=== PATIENT | female | born 1995 | race Caucasian/White ===

== ENCOUNTER 2023-01-24 09:05 | Outpatient (OUT) | payer BC, OTHER, SELFPAY ==
[2023-01-24 09:28] LABS: Basophils Percent Auto 0.7 % (0.2-2.0); Eosinophils Absolute Auto 0.1 10^3/uL (0.0-0.7); Eosinophils Percent Auto 1.2 % (0.9-7.0); Hematocrit 38.2 % (36.0-48.0); Hemoglobin 12.8 g/dL (12.0-16.0); Immature Granulocytes Abs Auto 0.01 10^3/uL (0.00-0.03); Immature Granulocytes Pct Auto 0.2 % (0.0-0.5); Lymphocytes Absolute Auto 1.5 10^3/uL (1.2-3.8); Lymphocytes Percent Auto 37.9 % (20.5-60.0); Mean Corpuscular HGB Conc 33.5 g/dL (29.9-35.2); Mean Corpuscular Volume 89.7 fL (81.0-99.0); Mean Platelet Volume 10.2 fL (9.5-13.5); Monocytes Absolute Auto 0.4 10^3/uL (0.3-0.8); Monocytes Percent Auto 9.7 % (1.7-12.0); Neutrophils Percent Auto 50.3 % (43.0-75.0); Platelet Count 219 10^3/uL (150-450); Red Blood Count 4.26 10^6/uL (4.20-5.40); Red Cell Distribution Width 12.5 % (11.0-15.0)
[2023-01-24 10:25] LABS: Alanine Aminotransferase 19 U/L (14-59); Albumin Globulin Ratio 1.4; Albumin Level 4.2 g/dL (3.4-5.0); Alkaline Phosphatase 58 U/L (46-116); Anion Gap 13.4; Aspartate Amino Transferase 12 U/L (15-37); Bilirubin Total 0.5 mg/dL (0.2-1.0); Calcium 8.8 mg/dL (8.5-10.1); Carbon Dioxide 28.2 mmol/L (21.0-32.0); Chloride 103 mmol/L (98-107); Estimated GFR (African America >60 (>=60); Estimated GFR (Non-African Ame >60 (>=60); Globulin 3.1 g/dL; Glucose 92 mg/dL (74-106); Potassium 3.6 mmol/L (3.5-5.1); Sodium 141 mmol/L (136-145); Thyroid Stimulating Hormone 10.926 uIU/mL (0.358-3.740); Total Protein 7.3 g/dL (6.4-8.2)
== END 2023-01-24 09:06 | disposition home or self-care (01) ==
DX: Z00.00 Encounter for general adult medical examination without abnormal findings (principal); D64.9 Anemia, unspecified; F41.9 Anxiety disorder, unspecified
CPT/HCPCS: 36415; 80053; 82607; 82728; 83540; 83550; 84443; 85025

== ENCOUNTER 2023-12-11 08:39 | Outpatient (OUT) | payer BC, MEDICAID, SELFPAY ==
--- NOTE | 2023-12-11 08:41 | US_ITS ---
The [address] [address] Patient Name: JULIÁN JIMENEZ MRN: [id number] date: 1995 Sex: F Assigned Patient Location: [facility] Current Patient Location: [facility] Accession/Order Number: [id number] Exam Date: 12/11/2023 08:41 Report Date: 12/11/2023 10:56 At the request of: LACY AVILES Procedure: US OB transvaginal EXAMINATION: US OB transvaginal HISTORY: MISSED MENSES COMPARISON: No relevant comparison available. FINDINGS: GESTATIONAL SAC: Present and normal appearing. YOLK SAC: Present and normal appearing. POLE: Present and normal appearing. CARDIAC: Present. UTERUS: Normal size and appearance. OVARIES: Right: Contains a benign-appearing cyst. Left: Normal. CERVIX: 4.4 cm in length and closed. CUL-DE-SAC: Normal. OTHER: None. AGE BY LMP: 11 weeks 1 day SERENA BY LMP: 06/30/2024 AGE BY US CRL: 11 weeks 6 days SERENA BY US CRL: 06/25/2024 US/US OB transvaginal IMPRESSION: 1. Single live intrauterine . Electronically authenticated by: YAAKOV TERAN Date: 12/11/2023 10:56
== END 2023-12-11 08:40 | disposition home or self-care (01) ==
LOC: NOMS 08:39
PROVIDERS: Visit Provider Obstetrics & Gynecology
DX: Z34.91 Encounter for supervision of normal pregnancy, unspecified, first trimester (principal); Z3A.11 11 weeks gestation of pregnancy; N92.6 Irregular menstruation, unspecified
CPT/HCPCS: 76817

== ENCOUNTER 2023-12-12 09:16 | Outpatient (OUT) | payer BC, MEDICAID, SELFPAY ==
--- OUTSIDE RECORDS SUMMARY | 2023-12-12 09:22 | XMS_ITS | CCD ---
Author Organization [facility] Care Team Providers Care [employer] Teacher Name Role Phone MILTON RENEEISH R Referring Unavailable [place], [place] Primary Care Unavailable RENEE MODE R Admitting Unavailable RENEE MODE R Attending Unavailable [place], [place] Primary Care Unavailable KARASIK ., DR ZALDIVAR Consulting Unavailabl e KIEPERT, ÁNGEL Primary Care Unavailable KARASIK ., DR ZALDIVAR Attending Unavailabl e KARASIK ., DR ZALDIVAR Admitting Unavailabl e ZIEBER, DR YAAKOV Miranda Consulting Unavailable KIEPERT, ÁNGEL Consulting Unavailable KIEPERT, ÁNGEL Primary Care Unavailable KIEPERT, ÁNGEL Attending Unavailable KIEPERT, ÁNGEL Admitting Unavailable SIDNEY, DR DEANNA Lance Consulting Unavailable PAY ., DR JARRELL Attending Unavailable PAY ., DR JARRELL Admitting Unavailable KIEPERT, ÁNGEL Primary Care Unavailable PAY ., DR JARRELL Consulting Unavailable AFSHIN ., TORI Consulting Unavailable KARASIK ., DR ZALDIVAR Consulting Unavailabl e KIEPERT, ÁNGEL Primary Care Unavailable KARASIK ., DR ZALDIVAR Attending Unavailabl e KARASIK ., DR ZALDIVAR Admitting Unavailabl e KIEPERT, ÁNGEL Primary Care Unavailable KARASIK ., DR ZALDIVAR Consulting Unavailabl e KARASIK ., DR ZALDIVAR Attending Unavailabl e KARASIK ., DR ZALDIVAR Admitting Unavailabl e ZIEBER, DR YAAKOV Miranda Consulting Unavailable KIEPERT, ÁNGEL Primary Care Unavailable KARASIK ., DR ZALDIVAR Attending Unavailabl e KARASIK ., DR ZALDIVAR Admitting Unavailabl e KIEPERT, ÁNGEL Primary Care Unavailable TRACI ., DR HOUSE Attending Unavailable TRACI ., DR HOUSE Admitting Unavailable KARMARIO, MOSES Procedure Practitioner Unavailab le KARASIK ., DR ZALDIVAR Consulting Unavailabl e KUNS, DR ROE Primary Care Unavailable KARASIK ., DR ZALDIVAR Attending Unavailabl e KARASIK ., DR ZALDIVAR Admitting Unavailabl e TRACI ., DR HOUSE Consulting Unavailable KARAMLOU MOSES Consulting Unavailable KARASIK ., DR ZALDIVAR Procedure Practitioner Saida vailable MISC, DR OLSON Consulting Unavailable KIEPERT, ÁNGEL Primary Care Unavailable MISC, DR OLSON Attending Unavailable MISC, DR OLSON Admitting Unavailable KARASIK ., DR ZALDIVAR Consulting Unavailabl e KARASIK ., DR ZALDIVAR Attending Unavailabl e KARASIK ., DR ZALDIVAR Admitting Unavailabl e KARASIK ., DR ZALDIVAR Consulting Unavailabl e KIEPERT, ÁNGEL Primary Care Unavailable KARASIK ., DR ZALDIVAR Attending Unavailabl e KARASIK ., DR ZALDIVAR Admitting Unavailabl e TRACI ., DR HOUSE Consulting Unavailable KIEPERT, ÁNGEL Primary Care Unavailable TRACI ., DR HOUSE Attending Unavailable TRACI ., DR HOUSE Admitting Unavailable KARASIK ., DR ZALDIVAR Consulting Unavailabl e KIEPERT, ÁNGEL Primary Care Unavailable KARASIK ., DR ZALDIVAR Attending Unavailabl e KARASIK ., DR ZALDIVAR Admitting Unavailabl e KIEPERT, ÁNGEL Primary Care Unavailable KARASIK ., DR ZALDIVAR Consulting Unavailabl e KARASIK ., DR ZALDIVAR Attending Unavailabl e KARASIK ., DR ZALDIVAR Admitting Unavailabl e KARASIK ., DR ZALDIVAR Consulting Unavailabl e KIEPERT, ÁNGEL Primary Care Unavailable KARASIK ., DR ZALDIVAR Attending Unavailabl e KARASIK ., DR ZALDIVAR Admitting Unavailabl e Mo Coleman MD Primary Care Provider Kylee MAIN LINE ASSEMBLER, Tori Unavailable Tony Gr NP R Unavailable MD Mo Coleman Primary Care Provider HEATHER Gr Attending Provider [phone] Tony Gr Attending Unavailable Maile, Tony Charles Admitting Unavailable Mo Coleman Primary Care Unavailable TONY GR Attending Unavailable WARCHOL, TORI Attending Unavailable WARCHOL, TORI Attending Unavailable WARCHOL, TORI Attending Unavailable Allergies Allergy Classification Reported Allergen(s) Allergy Type Date of Onset Reaction(s) Facility (1 source) Cefuroxime Drug Allergy 04-04-20 22 [facility] (2 sources) Ciprofloxacin Drug Allergy 04-03-20 16 [facility] (2 sources) Doxycycline Drug Allergy 05-20-19 21 vomiting [facility] (1 source) Flupenthixol Drug Allergy 04-04-20 22 [facility] (2 sources) Cefuroxime Drug Allergy 05-20-19 21 rash [facility] (1 source) Ciprofloxacin Drug Allergy 09-02-19 23 Shortness of breath [facility] (1 source) Ciprofloxacin Drug Allergy 09-02-19 23 Shortness of breath [facility] (1 source) cloNIDine Drug Allergy 03-14-20 21 [facility] (1 source) cloNIDine Drug Allergy 09-02-19 23 [facility] (1 source) Doxycycline Drug Allergy 09-02-19 23 [facility] (1 source) Gluten Propensity to adverse reactions 11-11-19 19 [facility] (1 source) Lactose (non-medical use) Allergy to substance 09-02-19 23 [facility] (1 source) Lactose (non-medical use) Drug Intolerance 11-11-19 19 [facility] (1 source) Octacosanol Drug Intolerance 11-11-19 19 [facility] (1 source) Other Allergy to substance 11-11-19 19 [facility] (1 source) Silver Allergy to substance 09-02-19 23 [facility] (1 source) Wound Dressing Adhesive Drug Allergy 09-02-19 23 [facility] (1 source) Cefuroxime Drug Allergy 05-20-19 21 [facility] Repository (1 source) Ciprofloxacin Drug Allergy 05-20-19 21 [facility] (1 source) Doxycycline Drug Allergy 05-20-19 21 [facility] Medications Current Medications Medication Drug Class(es) Dates Sig (Normalized) Sig (Original) [id number] 200 actuat albuterol 0.09 mg/actuat metered dose inhaler (1 source) beta2-Adrenergi c Agonist Start: 04-16-2023 End: 07-15-2023 take 2 puff(s) by inhalation every four hours for wheezing albuterol HFA 90 mcg/act inhaler Indications: Moderate persistent asthma without complication (CMS/HCC) Inhale 2 puffs every 4 (four) hours if needed for shortness of breath or wheezing 18 g 2 04/16/2023 07/15/2023 Active 24 hr amphetamine aspartate 5 mg / amphetamine sulfate 5 mg / dextroamphetamine saccharate 5 mg / dextroamphetamine sulfate 5 mg extended release oral capsule (3 sources) Central Nervous System Stimulant Start: 06-04-2023 End: 07-04-2023 take 1 capsule by mouth every twenty-four hours in the morning amphetamine-dextro amphetamine XR (Adderall XR) 20 MG 24 hr capsule Indications: Attention deficit hyperactivity disorder (ADHD), combined type (CMS/HCC) Take 1 capsule (20 mg) by mouth in the morning. Do not crush or chew.. 30 capsule 0 06/04/2023 07/04/2023 Active Start: 04-26-2023 take 1 tablet by konstantin th in the morning amphetamine-dextroamphetamine (Adderall) 20 MG tablet Indications: Attention deficit hyperactivity disorder (ADHD), combined type (CMS/HCC) Take 1 tablet (20 mg) by mouth in the morning. 30 tablet 0 04/26/2023 Active Start: 04-26-2023 End: 06-02-2023 take 1 capsule by mouth every twenty-four hours in the morning amphetamine-dextroamphetamine XR (Addera ll XR) 20 MG 24 hr capsule Indications: Attention deficit hyperactivity disorder (ADHD), combined type (CMS/HCC) Take 1 capsule (20 mg) by mouth in the morning. Do not crush or chew.. 30 capsule 0 04/26/2023 06/02/2023 Discontinued (Reorder) calcium citrate 1190 mg / cholecalciferol 0.005 mg oral tablet (1 source) Vitamin D Calcium Citrate-Vitamin D (Calcium Citrate + D3) 250-200 MG-UNIT tablet Calcium Citrate + D3 0 Active famotidine 20 mg oral tablet (1 source) Histamine-2 Receptor Antagonist Start: 2022 End: 2023 take 1 tablet by mouth once famotidine (Pepcid) 20 MG tablet Indications: Gastroesophageal reflux disease without esophagitis Take 1 tablet (20 mg) by mouth every 12 (twelve) hours 180 tablet 1 04/16/2023 10/13/2023 Active fexofenadine hydrochloride 180 mg oral tablet (1 source) Histamine-1 Receptor Antagonist take 1 tablet by mouth in the morning fexofenadine (Tasha) 180 MG tablet Take 180 mg by mouth in the morning. 0 Active 14 actuat fluticasone furoate 0.1 mg/actuat / vilanterol 0.025 mg/actuat dry powder inhaler (1 source) Corticosteroid, beta2-Adrenergic Agonist Start: 2022 End: 2023 take 1 puff(s) by inhalation in the morning Fluticasone Furoate-Vilanterol 100-25 MCG/ACT aerosol powder Indications: Moderate persistent asthma without complication (CMS/HCC) Inhale 1 puff in the morning. 28 each 5 04/16/2023 10/13/2023 Active ibuprofen 600 mg oral tablet (1 source) Nonsteroidal Anti-inflammatory Drug ibuprofen 600 MG tablet Take 600 mg by mouth. 0 Active lactase 9000 unt oral tablet (1 source) lactase 9000 uni ts tablet Take 9,000 Units by mouth. 0 Active lansoprazole 30 mg delayed release oral capsule (1 source) Proton Pump Inhibitor Start: 2022 End: 2023 take 1 capsule by mouth once daily lansoprazole (Prevacid) [address] capsule Indications: Gastroesophageal reflux disease without esophagitis Take 1 capsule (30 mg) by mouth 1 (one) time each day at the same time 90 capsule 1 04/16/2023 10/13/2023 Active 200 actuat levalbuterol 0.045 mg/actuat metered dose inhaler (2 sources) beta2-Adrenergic Agonist Start: 2022 End: 2023 levalbuterol (Xopenex) 1.25 MG/3ML nebulizer solution Indications: Moderate persistent asthma without complication (CMS/HCC) Take 1 ampule by nebulization every 6 (six) hours if needed for shortness of breath 72 mL 1 04/16/2023 07/15/2023 Active Start: 04-16-2023 End: 07-15-2023 take 1 puff(s) by inhalation every four hours for wheezing levalbuterol (Xopenex) 45 MCG/ACT inhaler Indications: Moderate persistent asthma without complication (CMS/HCC) Inhale 1 puff every 4 (four) hours if needed for wheezing 15 g 1 04/16/2023 07/15/2023 Active levothyroxine sodium 0.088 mg oral tablet (1 source) l-Thyroxine Start: 04-16-2023 End: 10-13-2023 take 1 tablet by mouth once daily levothyroxine (Synthroid, Levoxyl) 88 MCG tablet Indications: Acquired hypothyroidism (CMS/HCC) Take 1 tablet (88 mcg) by mouth 1 (one) time each day at the same time 90 tablet 1 04/16/2023 10/13/2023 Active loperamide hydrochloride 2 mg oral capsule (1 source) Opioid Agonist loperamide (Imodium) 2 MG capsule Take 2 mg by mouth. 0 Active montelukast 10 mg oral tablet (1 source) Leukotriene Receptor Antagonist Start: 04-16-2023 End: 10-13-2023 take 1 tablet by mouth at bedtime montelukast (Singulair) 10 MG tablet Indications: Moderate persistent asthma without complication (CMS/HCC) , Allergic rhinitis, unspecified seasonality, unspecified trigger Take 1 tablet (10 mg) by mouth at bedtime 90 tablet 1 04/16/2023 10/13/2023 Active Naproxen (1 source) Nonsteroidal Anti-inflammatory Drug take 2 tablets by mouth once daily as needed NAPROXEN SODIUM PO Take 2 tablets by mouth Daily as needed. 0 Active Problems Active Problems Problem Classification Problem Date Documented Date Episodic/Chronic Anxiety disorders (1 source) Anxiety; Translations: [Anxiety disorder, unspecified] Onset: 09-01-2022 09-01-2022 Chronic Asthma (3 sources) Uncomplicated moderate persistent asthma; Translations: [Moderate persistent asthma, uncomplicated] Onset: 09-01-2022 Resolved: 11-13-2022 09-01-2022 Chronic Attention-deficit, conduct, and disruptive behavior disorders (1 source) Attention deficit hyperactivity disorder, combined type; Translations: [Attention-deficit hyperactivity disorder, combined type] 06-02-2023 Chronic Esophageal disorders (1 source) Gastroesophageal reflux disease without esophagitis; Translations: [Gastro-esophageal reflux disease without esophagitis] Onset: 09-01-2022 09-01-2022 Chronic Other complications of ; puerperium affecting management of mother (1 source) Endocrine, nutritional and metabolic diseases complicating childbirth; Translations: [ENDOCRN NUTR MET DZ COMP CHILDBIRTH] Onset: 06-30-2022 Episodic Other complications of (2 sources) Endocrine, nutritional and metabolic diseases complicating , third trimester; Translations: [ENDOCRN NUTR MET DZ COMP PG 3RD TRI] Onset: 06-23-2022 Episodic Other nervous system disorders (1 source) Chronic pain; Translations: [Other chronic pain] Onset: 09-01-2022 Resolved: 11-13-2022 11-13-2022 Chronic Other and delivery including normal (20 sources) Encounter for care and examination of lactating mother; Translations: [Encounter for routine follow-up] Onset: 12-14-2021 Episodic Other upper respiratory disease (1 source) Nasal congestion; Translations: [Nasal congestion] Onset: 07-13-2023 Episodic Residual codes; unclassified (1 source) 39 weeks gestation of ; Translations: [39 WEEKS GESTATION OF ] Onset: 06-30-2022 Episodic Thyroid disorders (7 sources) Hypothyroidism, unspecified; Translations: [Hypothyroidism] Onset: 03-02-2020 Resolved: 11-13-2022 Chronic Unclassified (1 source) Cough, unspecified; Translations: [Cough, unspecified] Onset: 07-13-2023 Viral infection (1 source) COVID-19; Translations: [COVID-19] Onset: 04-08-2022 Past or Other Problems Problem Classification Problem Date Documented Date Episodic/Chronic Attention-deficit, conduct, and disruptive behavior disorders (1 source) Attention deficit hyperactivity disorder; Translations: [Attention-deficit hyperactivity disorder, unspecified type] Onset: 09-01-2022 Resolved: 11-13-2022 11-13-2022 Chronic Diabetes or abnormal glucose tolerance complicating ; childbirth; or the puerperium (4 sources) Abnormal glucose complicating ; Translations: [ABNORMAL GLUCOSE COMP ] Onset: 04-16-2022 Episodic Headache; including migraine (1 source) Migraine; Translations: [Migraine, unspecified, not intractable, without status migrainosus] Onset: 09-01-2022 Resolved: 11-13-2022 11-13-2022 Chronic Immunizations and screening for infectious disease (1 source) Contact with and (suspected) exposure to infections with a predominantly sexual mode of transmission; Translations: [CONTCT W EXPOS INFECT SEXUAL TRNSMS] Onset: 01-29-2022 Episodic Menstrual disorders (6 sources) Irregular menstruation, unspecified; Translations: [Amenorrhea] Onset: 12-14-2021 Resolved: 11-13-2022 Chronic Miscellaneous mental health disorders (1 source) Binge eating disorder; Translations: [Binge eating disorder] Onset: 09-01-2022 Resolved: 11-13-2022 11-13-2022 Chronic Miscellaneous mental health disorders (1 source) Transitory mood disturbance; Translations: [ mood disturbance] Onset: 09-01-2022 Resolved: 11-13-2022 11-13-2022 Episodic Nonspecific chest pain (3 sources) Chest pain, unspecified; Translations: [CHEST PAIN UNSPECIFIED] Onset: 04-04-2022 Episodic Other complications of (1 source) Other viral diseases complicating , second trimester; Translations: [OTH VIRAL DZ COMP PREG SECOND TRI] Onset: 04-08-2022 Episodic Other complications of (1 source) Diseases of the respiratory system complicating , second trimester; Translations: [DISEASES RESP SYS COMP PREG 2ND TRI] Onset: 04-08-2022 Episodic Other complications of (1 source) Maternal care for other abnormalities of pelvic organs, first trimester; Translations: [MAT CARE OTH ABN PELV ORGAN 1ST TRI] Onset: 11-30-2021 Episodic Other complications of (1 source) Asthma in ; Translations: [Diseases of the respiratory system complicating , unspecified trimester] Onset: 09-01-2022 Resolved: 11-13-2022 11-13-2022 Episodic Other nervous system disorders (1 source) Poor concentration; Translations: [Attention and concentration deficit] Onset: 09-01-2022 Resolved: 11-13-2022 11-13-2022 Chronic Other nervous system disorders (1 source) Metallic taste; Translations: [Other disturbances of smell and taste] Onset: 09-01-2022 Resolved: 11-13-2022 11-13-2022 Episodic Other nervous system disorders (1 source) Skin sensation disturbance; Translations: [Unspecified disturbances of skin sensation] Onset: 09-01-2022 Resolved: 11-13-2022 11-13-2022 Episodic Other screening for suspected conditions (not mental disorders or infectious disease) (10 sources) Encounter for screening for Streptococcus B; Translations: [Encounter for other specified screening] Onset: 12-17-2021 Episodic Other upper respiratory disease (1 source) Allergic rhinitis; Translations: [Allergic rhinitis, unspecified] Onset: 09-01-2022 Resolved: 11-13-2022 11-13-2022 Chronic Other upper respiratory disease (1 source) Seasonal allergy; Translations: [Other seasonal allergic rhinitis] Onset: 09-01-2022 Resolved: 11-13-2022 11-13-2022 Chronic Other upper respiratory infections (1 source) Acute upper respiratory infection, unspecified; Translations: [ACUTE UP RESPIRATORY INFECTION UNS] Onset: 04-08-2022 Episodic Ovarian cyst (1 source) Unspecified ovarian cyst, left side; Translations: [UNSPECIFIED OVARIAN CYST LEFT SIDE] Onset: 11-30-2021 Episodic Residual codes; unclassified (1 source) 20 weeks gestation of ; Translations: [20 WEEKS GESTATION OF ] Onset: 04-08-2022 Episodic Residual codes; unclassified (1 source) 9 weeks gestation of ; Translations: [9 WEEKS GESTATION OF ] Onset: 11-30-2021 Episodic Residual codes; unclassified (1 source) Insomnia; Translations: [Insomnia, unspecified] Onset: 09-01-2022 Resolved: 11-13-2022 11-13-2022 Episodic Residual codes; unclassified (1 source) Hereditary disorder of endocrine system; Translations: [Genetic susceptibility to other disease] Onset: 09-01-2022 Resolved: 11-13-2022 11-13-2022 Episodic Spondylosis; intervertebral disc disorders; other back problems (1 source) Sciatica; Translations: [Sciatica, left side] Onset: 09-01-2022 Resolved: 11-13-2022 11-13-2022 Episodic Substance-related disorders (1 source) Nondependent cannabis abuse ; Translations: [Cannabis abuse, uncomplicated] Onset: 09-01-2022 Resolved: 11-13-2022 11-13-2022 Chronic Viral infection (1 source) Verruca plantaris; Translations: [Plantar wart] Onset: 09-01-2022 Resolved: 11-13-2022 11-13-2022 Episodic Results Test Name Value Interpretation Reference Range Facility BioFire Not Detectedon 07-12 BioFire Not Detected Not detected Normal Not Detecte T he [facility] Comment on above: Result Comment: This is a duplicate RP2.1 COVID (PCR) result to be used for statistical tracking purpose only. PERFORMED BY: [facility] [address] [place] [address] PATHOLOGIST PARTNERSHIP MARKETING MANAGER CATY NEELY M.D. Performed By: #### R RODGER PANEL UPP., BIOFIRECOVNOTDE #### [facility] [address] COVID-19 Detected/Not Detect edOrdered By: Tony Gr on 07-13-2023 SARS-CoV-2 (COVID-19) RNA JUAN+non-probe Ql (Nph) Not detected Not Detecte [facility] Comment on above: This is a duplicate RP2.1 COVID (PCR) result to be used for statistical tracking purpose only. Respiratory (Upper) Panel, P CRon 07-13-2023 Respiratory (Upper) Panel, PCR Adenovirus Not detected Bordetella parapertussis Not detected Chlamydia pneumoniae Not detected Coronavirus 229E Not detected Coronavirus HKU1 Not detected Coronavirus NL63 Not detected Coronavirus OC43 Not detected Influenza A Not detected Influenza B Not detected Human Metapneumovirus Not detected Mycoplasma pneumoniae Not detected Parainfluenza Virus 1 Not detected Parainfluenza Virus 2 Not detected Parainfluenza Virus 3 Not detected Parainfluenza Virus 4 Not detected Bordetella pertussis-ptxP Not detected Human Rhino/Enterovirus Not detected Resp. Syncytial Virus Not detected COVID-19 Detected/Not Detected Not detected Blank Space FLUA TEST INCLUDES Influenza A tests for the following clinically FLUA TEST INCLUDES significant subtypes: FLUA TEST INCLUDES - Influenza A FLUA TEST INCLUDES - Influenza A H1 FLUA TEST INCLUDES - Influenza A H1 2009 FLUA TEST INCLUDES - Influenza A H3 Blank Space PERFORMED BY: [facility] [address] [place] [address] PATHOLOGIST PARTNERSHIP MARKETING MANAGER CATY Navarro [facility] Comment on above: Performed By: #### R RODGER PANEL UPP., BIOFIRECOVNOTDE #### [facility] [address] Respiratory pathogens DNA an d RNA panel - Nasopharynx by JUAN with non-probe detectionOrdered By: Tony Gr on 07-13-2023 Respiratory pathogens DNA and RNA panel JUAN+non-probe (Nph) [facility] CBC AUTO DIFFon 06-25-2022 BASO # 0.0 103/ul Normal 0.0-0.1 [facility] Comment on above: Performed By: #### C BC #### [facility] [address] [place] [address] Dr. Garland Kohli Basophils/100 WBC (Bld) 0.4 % Normal 0.2-2.0 [facility] Comment on above: Performed By: #### C BC #### [facility] [address] [place] [address] Dr. Garland Kohli EO # 0.1 103/ul Normal 0.0-0.7 [facility] Comment on above: Performed By: #### C BC #### [facility] [address] [address] [address] Garland Kohli Eosinophils/100 WBC (Bld) 0.9 % Normal 0.9-7.0 [facility] Comment on above: Performed By: #### C BC #### [facility] [address] [place] [address] Dr. Garland Kohli Erythrocyte distribution width (RBC) [Ratio] 12.4 % Normal 11.0-15.0 [facility] Comment on above: Performed By: #### C BC #### [facility] [address] [place] [address] Dr. Garland Kohli Hematocrit (Bld) [Volume fraction] 31.4 % Critically low 36.0-48.0 [facility] Comment on above: Performed By: #### C BC #### [facility] [address] [place] [address] Dr. Garland Kohli Hemoglobin (Bld) [Mass/Vol] 10.4 g/dL Critically low 12.0-16.0 [facility] Comment on above: Performed By: #### C BC #### [facility] [address] [place] [address] Dr. Garland Kohli IG # 0.04 10e3/ul Critically high 0.00-0.03 [facility] Comment on above: Performed By: #### C BC #### [facility] [address] [place] [address] Dr. Garland Kohli IG % 0.4 % Normal 0.0-0.5 [facility] Comment on above: Performed By: #### C BC #### [facility] [address] [place] [address] Dr. Garland Kohli LYMPH # 2.0 103/ul Normal 1.2-3.8 [facility] Comment on above: Performed By: #### C BC #### [facility] [address] [place] [address] Dr. Garland Kohli Lymphocytes/100 WBC (Bld) 22.1 % Normal 20.5-60.0 [facility] Comment on above: Performed By: #### C BC #### [facility] [address] [place] [address] Dr. Garland Kohli MANUAL DIFF REQ NO Normal [facility] Comment on above: Performed By: #### C BC #### [facility] [address] [place] [address] Dr. Garland Kohli MCH (RBC) [Entitic mass] 30.1 pg Normal 26.7-34.0 [facility] Comment on above: Performed By: #### C BC #### [facility] [address] [place] [address] Dr. Garladn Kohli MCHC (RBC) [Mass/Vol] 33.1 g/dL Normal 29.9-35.2 [facility] Comment on above: Performed By: #### C BC #### [facility] [address] [address] [address] Garland Kohli MCV (RBC) [Entitic vol] 91.0 fL Normal 81.0-99.0 [facility] Comment on above: Performed By: #### C BC #### [facility] [address] [address] [address] Garland Kohli MONO # 0.8 103/ul Normal 0.3-0.8 [facility] Comment on above: Performed By: #### C BC #### [facility] [address] [address] [address] Garland Kohli Monocytes/100 WBC (Bld) 8.8 % Normal 1.7-12.0 [facility] Comment on above: Performed By: #### C BC #### [facility] Laboratory [address] [place] [address] Dr. Garland Kohli NEUT # 6.0 103/ul Normal 1.4-6.5 [facility] Comment on above: Performed By: #### C BC #### [facility] [address] [place] [address] Dr. Garland Kohli Neutrophils/100 WBC (Bld) 67.4 % Normal 43.0-75.0 [facility] Comment on above: Performed By: #### C BC #### [facility] [address] [address] [address] Garland Kohli Platelet mean volume (Bld) [Entitic vol] 12.0 fL Normal 9.5-13.5 [facility] Comment on above: Performed By: #### C BC #### [facility] [address] [address] [address] Garland Kohli PLT 151 103/ul Normal 150-450 [facility] Comment on above: Performed By: #### C BC #### [facility] [address] [address] [address] Garland Kohli RBC 3.45 106/ul Critically low 4.20-5.40 [facility] Comment on above: Performed By: #### C BC #### [facility] [address] [address] [address] Garland Kohli WBC 8.9 103/ul Normal 4.0-11.0 [facility] Comment on above: Performed By: #### C BC #### [facility] [address] [place] [address] Dr. Garland Kohli CBC AUTO DIFFon 06-23-2022 BASO # 0.0 103/ul Normal 0.0-0.1 [facility] Comment on above: Performed By: #### C BC #### [facility] [address] [place] [address] Dr. Garland Kohli Basophils/100 WBC (Bld) 0.4 % Normal 0.2-2.0 [facility] Comment on above: Performed By: #### C BC #### [facility] [address] [place] [address] Dr. Garland Kohli EO # 0.1 103/ul Normal 0.0-0.7 [facility] Comment on above: Performed By: #### C BC #### [facility] [address] [place] [address] Dr. Garland Kohli Eosinophils/100 WBC (Bld) 0.8 % Critically low 0.9-7.0 [facility] Comment on above: Performed By: #### C BC #### [facility] [address] [place] [address] Dr. Garland Kohli Erythrocyte distribution width (RBC) [Ratio] 12.4 % Normal 11.0-15.0 [facility] Comment on above: Performed By: #### C BC #### [facility] [address] [place] [address] Dr. Garland Kohli Hematocrit (Bld) [Volume fraction] 34.5 % Critically low 36.0-48.0 [facility] Comment on above: Performed By: #### C BC #### [facility] [address] [place] [address] Dr. Garland Kohli Hemoglobin (Bld) [Mass/Vol] 11.6 g/dL Critically low 12.0-16.0 [facility] Comment on above: Performed By: #### C BC #### [facility] [address] [address] [address] Garland Kohli IG # 0.04 10e3/ul Critically high 0.00-0.03 [facility] Comment on above: Performed By: #### C BC #### [facility] [address] [address] [address] Garland Kohli IG % 0.5 % Normal 0.0-0.5 [facility] Comment on above: Performed By: #### C BC #### [facility] [address] [place] [address] Dr. Garland Kohli LYMPH # 1.3 103/ul Normal 1.2-3.8 [facility] Comment on above: Performed By: #### C BC #### [facility] [address] [place] [address] Dr. Garland Kohli Lymphocytes/100 WBC (Bld) 17.6 % Critically low 20.5-60.0 [facility] Comment on above: Performed By: #### C BC #### [facility] [address] [place] [address] Dr. Garland Kohli MANUAL DIFF REQ NO Normal [facility] Comment on above: Performed By: #### C BC #### [facility] [address] [place] [address] Dr. Garland Kohli MCH (RBC) [Entitic mass] 29.6 pg Normal 26.7-34.0 [facility] Comment on above: Performed By: #### C BC #### [facility] [address] [place] [address] Dr. Garland Kohli MCHC (RBC) [Mass/Vol] 33.6 g/dL Normal 29.9-35.2 [facility] Comment on above: Performed By: #### C BC #### [facility] [address] [place] [address] Dr. Garland Kohli MCV (RBC) [Entitic vol] 88.0 fL Normal 81.0-99.0 [facility] Comment on above: Performed By: #### C BC #### [facility] [address] [place] [address] Dr. Garland Kohli MONO # 0.9 103/ul Critically high 0.3-0.8 [facility] Comment on above: Performed By: #### C BC #### [facility] [address] [address] [address] Garland Kohli Monocytes/100 WBC (Bld) 11.7 % Normal 1.7-12.0 [facility] Comment on above: Performed By: #### C BC #### [facility] [address] [place] [address] Dr. Garland Kohli NEUT # 5.1 103/ul Normal 1.4-6.5 [facility] Comment on above: Performed By: #### C BC #### [facility] [address] [place] [address] Dr. Garland Kohli Neutrophils/100 WBC (Bld) 69.0 % Normal 43.0-75.0 [facility] Comment on above: Performed By: #### C BC #### [facility] [address] [place] [address] Dr. Garland Kohli Platelet mean volume (Bld) [Entitic vol] 12.1 fL Normal 9.5-13.5 [facility] Comment on above: Performed By: #### C BC #### [facility] [address] [place] [address] Dr. Garland Kohli PLT 193 103/ul Normal 150-450 [facility] Comment on above: Performed By: #### C BC #### [facility] [address] [place] [address] Dr. Garland Kohli RBC 3.92 106/ul Critically low 4.20-5.40 [facility] Comment on above: Performed By: #### C BC #### [facility] [address] [place] [address] Dr. Garland Kohli WBC 7.4 103/ul Normal 4.0-11.0 [facility] Comment on above: Performed By: #### C BC #### [facility] [address] [place] [address] Dr. Garland Kohli DRUG SCREEN RAPID (URINE)on 06-23-2022 AMP Negative Normal NEGATIVE [facility] Comment on above: Performed By: #### D RUGRPD #### [facility] [address] [place] [address] Dr. Garland Kohli BAR Negative Normal NEGATIVE [facility] Comment on above: Performed By: #### D RUGRPD #### [facility] [address] [place] [address] Dr. Garland Kohli BUP Negative Normal NEGATIVE [facility] Comment on above: Performed By: #### D RUGRPD #### [facility] [address] [place] [address] Dr. Garland Kohli BZO Negative Normal NEGATIVE [facility] Comment on above: Performed By: #### D RUGRPD #### [facility] [address] [place] [address] Dr. Garland Kohli JUANI Negative Normal NEGATIVE [facility] Comment on above: Performed By: #### D RUGRPD #### [facility] [address] [place] [address] Dr. Garland Kohli CUT-OFFS SEE BELOW Normal [facility] Comment on above: Result Comment: AMP (Amphetamine): 500ng/mL, BAR (Barbituates): 200 ng/mL, BZO (Benzodiazepines): 150 ng/mL, BUP (Buprenorphine): 10 ng/mL, JUANI (Cocaine): 150 ng/mL, mAMP (Methamphetamine): 500 ng/mL, MTD (Methadone): 200 ng/mL, OPI (Opiates): 100 ng/mL, OXY (Oxycodone): 100 ng/mL, PCP (Phencyclidine): 25 ng/mL, PPX (Propoxyphene): 300 ng/mL, THC (Cannabinoids): 50 ng/mL, TCA (Trycyclic Antidepressants): 300 ng/mL Performed By: #### D RUGRPD #### [facility] [address] [place] [address] Dr. Garland Kohli DRUG CUT HEADER DRUG CLASS TEST SYSTEM CUT-OFF CONCENTRATIONS ARE FOLLOWS: Normal [facility] Comment on above: Performed By: #### D RUGRPD #### [facility] [address] [address] [address] Garland Kohli mAMP Negative Normal NEGATIVE [facility] Comment on above: Performed By: #### D RUGRPD #### [facility] [address] [address] [address] Garland Kohli MTD Negative Normal NEGATIVE [facility] Comment on above: Performed By: #### D RUGRPD #### [facility] [address] [place] [address] Dr. Garland Kohli OPI Negative Normal NEGATIVE [facility] Comment on above: Performed By: #### D RUGRPD #### [facility] [address] [place] [address] Dr. Garland Kohli OXY Negative Normal NEGATIVE [facility] Comment on above: Performed By: #### D RUGRPD #### [facility] [address] [place] [address] Dr. Garland Kohli PCP Negative Normal NEGATIVE [facility] Comment on above: Performed By: #### D RUGRPD #### [facility] [address] [place] [address] Dr. Garland Kohli PPX Negative Normal NEGATIVE [facility] Comment on above: Performed By: #### D RUGRPD #### [facility] [address] [place] [address] Dr. Garland Kohli TCA Negative Normal NEGATIVE [facility] Comment on above: Performed By: #### D RUGRPD #### [facility] [address] [place] [address] Dr. Garland Kohli THC Negative Normal NEGATIVE [facility] Comment on above: Performed By: #### D RUGRPD #### [facility] [address] [place] [address] Dr. Garland Kohli TYPE AND SCREENon 06-23-2022 TYPE AND SCREEN Negative Normal [facility] Comment on above: Performed By: #### T NS #### [facility] [address] [place] [address] Dr. Garland Kohli FREE T4on 06-07-2022 Free T4 [Mass/Vol] 0.76 ng/dL Normal 0.76-1.46 [facility] Comment on above: Performed By: #### C BC #### [facility] [address] [place] [address] Dr. Garland Kohli TSHon 06-07-2022 TSH 1.393 uIU/mL Normal 0.358-3.740 [facility] Comment on above: Performed By: #### T SH #### [facility] [address] [place] [address] Dr. Garland Kohli GROUP B STREP CULTUREon S. agalactiae Ag Ql (Unsp spec) Culture Observations: NEGATIVE FOR GROUP B STREPTOCOCCUS. Normal [facility] Comment on above: Performed By: #### C BC #### [facility] [address] [place] [address] Dr. Garland Kohli GTT 3 HR PREGon 04-16-2022 Glucose [Mass/Vol] 87 mg/dL Normal 74-106 [facility] Comment on above: Performed By: #### G TT3P #### [facility] [address] [place] [address] Dr. Garland Kohli Glucose [Mass/Vol] 148 mg/dL Normal [facility] Comment on above: Performed By: #### G TT3P #### [facility] [address] [place] [address] Dr. Garland Kohli Glucose [Mass/Vol] 128 mg/dL Normal [facility] Comment on above: Performed By: #### G TT3P #### [facility] [address] [place] [address] Dr. Garland Kohli Glucose [Mass/Vol] 105 mg/dL Normal [facility] Comment on above: Performed By: #### G TT3P #### [facility] [address] [place] [address] Dr. Garland Kohli CBC AUTO DIFFon 04-04-2022 BASO # 0.0 103/ul Normal 0.0-0.1 [facility] Comment on above: Performed By: #### G TT3P #### [facility] [address] [address] [address] Garland Kohli Basophils/100 WBC (Bld) 0.2 % Normal 0.2-2.0 [facility] Comment on above: Performed By: #### G TT3P #### [facility] [address] [place] [address] Dr. Garland Kohli EO # 0.0 103/ul Normal 0.0-0.7 [facility] Comment on above: Performed By: #### G TT3P #### [facility] [address] [place] [address] Dr. Garland Kohli Eosinophils/100 WBC (Bld) 0.4 % Critically low 0.9-7.0 [facility] Comment on above: Performed By: #### G TT3P #### [facility] [address] [place] [address] Dr. Garland Kohli Erythrocyte distribution width (RBC) [Ratio] 12.9 % Normal 11.0-15.0 [facility] Comment on above: Performed By: #### G TT3P #### [facility] [address] [place] [address] Dr. Garland Kohli Hematocrit (Bld) [Volume fraction] 32.5 % Critically low 36.0-48.0 [facility] Comment on above: Performed By: #### G TT3P #### [facility] [address] [place] [address] Dr. Garland Kohli Hemoglobin (Bld) [Mass/Vol] 11.2 g/dL Critically low 12.0-16.0 [facility] Comment on above: Performed By: #### G TT3P #### [facility] [address] [place] [address] Dr. Garland Kohli IG # 0.07 10e3/ul Critically high 0.00-0.03 [facility] Comment on above: Performed By: #### G TT3P #### [facility] [address] [place] [address] Dr. Garland Kohli IG % 0.8 % Critically high 0.0-0.5 [facility] Comment on above: Performed By: #### G TT3P #### [facility] [address] [address] [address] Garland Kohli LYMPH # 0.9 103/ul Critically low 1.2-3.8 [facility] Comment on above: Performed By: #### G TT3P #### [facility] [address] [address] [address] Garland Kohli Lymphocytes/100 WBC (Bld) 10.4 % Critically low 20.5-60.0 [facility] Comment on above: Performed By: #### G TT3P #### [facility] [address] [address] [address] Garland Kohli MANUAL DIFF REQ NO Normal [facility] Comment on above: Performed By: #### G TT3P #### [facility] [address] [place] [address] Dr. Garland Kohli MCH (RBC) [Entitic mass] 31.4 pg Normal 26.7-34.0 [facility] Comment on above: Performed By: #### G TT3P #### [facility] [address] [place] [address] Dr. Garland Kohli MCHC (RBC) [Mass/Vol] 34.5 g/dL Normal 29.9-35.2 [facility] Comment on above: Performed By: #### G TT3P #### [facility] [address] [place] [address] Dr. Garland Kohli MCV (RBC) [Entitic vol] 91.0 fL Normal 81.0-99.0 [facility] Comment on above: Performed By: #### G TT3P #### [facility] [address] [place] [address] Dr. Garland Kohli MONO # 1.1 103/ul Critically high 0.3-0.8 [facility] Comment on above: Performed By: #### G TT3P #### [facility] [address] [address] [address] Garland Kohli Monocytes/100 WBC (Bld) 12.5 % Critically high 1.7-12.0 [facility] Comment on above: Performed By: #### G TT3P #### [facility] [address] [place] [address] Dr. Garland Kohli NEUT # 6.3 103/ul Normal 1.4-6.5 [facility] Comment on above: Performed By: #### G TT3P #### [facility] [address] [address] [address] Garland Kohli Neutrophils/100 WBC (Bld) 75.7 % Critically high 43.0-75.0 [facility] Comment on above: Performed By: #### G TT3P #### [facility] [address] [place] [address] Dr. Garland Kohli Platelet mean volume (Bld) [Entitic vol] 10.5 fL Normal 9.5-13.5 [facility] Comment on above: Performed By: #### G TT3P #### [facility] [address] [place] [address] Dr. Garland Kohli PLT 181 103/ul Normal 150-450 [facility] Comment on above: Performed By: #### G TT3P #### [facility] [address] [place] [address] Dr. Garland Kohli RBC 3.57 106/ul Critically low 4.20-5.40 [facility] Comment on above: Performed By: #### G TT3P #### [facility] [address] [place] [address] Dr. Garland Kohli WBC 8.4 103/ul Normal 4.0-11.0 [facility] Comment on above: Performed By: #### G TT3P #### [facility] [address] [place] [address] Dr. Garland Kohli CTA CHEST WO W CONon 022 CTA CHEST WO W CON EXAMINATION: CTA CHEST WO W CON HISTORY: SHORTNESS OF BREATH COMPARISON: No relevant comparison available. TECHNIQUE: Axial, Coronal, and Sagittal images were created without and with IV contrast. Dose reduction techniques were achieved by using automated exposure control and/or adjustment of mA and/or kV according to patient size and/or use of iterative reconstruction technique. FINDINGS: LUNGS: No visible pulmonary disease. PLEURA: No mass, effusion, or pneumothorax. VASCULATURE: Normal postcontrast opacification of the central pulmonary arterial tree. No filling defects. LYNNE: No mass or adenopathy. MEDIASTINUM: No mass or adenopathy. CARDIAC: No enlargement, pericardial thickening, or significant calcification. AORTA: No aneurysm or dissection. CHEST WALL: No mass or axillary adenopathy. BONES: No bone lesion or fracture. LIMITED ABDOMEN: No suspicious findings. Limited images of the upper abdomen. OTHER: Negative. IMPRESSION: No central pulmonary embolus Clear lungs Electronically authenticated by: DEANNA LINN Date: 2022-04-04 15:25 Normal [facility] PROF CHEM 8 (BAS METB)on Anion gap [Moles/Vol] 13.2 mmol/L Normal [facility] Comment on above: Performed By: #### G TT3P #### [facility] [address] [place] [address] Dr. Garland Kohli Calcium [Mass/Vol] 8.5 mg/dL Normal 8.5-10.1 [facility] Comment on above: Performed By: #### G TT3P #### [facility] [address] [address] [address] Garland Kohli Chloride [Moles/Vol] 103 mmol/L Normal 98-107 [facility] Comment on above: Performed By: #### G TT3P #### [facility] [address] [place] [address] Dr. Garland Kohli CO2 [Moles/Vol] 23.4 mmol/L Normal 21.0-32.0 [facility] Comment on above: Performed By: #### G TT3P #### [facility] [address] [address] [address] Garland Kohli Creatinine [Mass/Vol] 0.43 mg/dL Critically low 0.55-1.02 [facility] Comment on above: Performed By: #### G TT3P #### [facility] [address] [address] [address] Garland Kohli EGFR-AF CENTRAL AFRICAN >60 Normal >=60 [facility] Comment on above: Performed By: #### G TT3P #### [facility] [address] [address] [address] Garland Kohli EGFR-NON AF CENTRAL AFRICAN >60 Normal >=60 [facility] Comment on above: Performed By: #### G TT3P #### [facility] [address] [address] [address] Garland Kohli Glucose [Mass/Vol] 108 mg/dL Critically high 74-106 [facility] Comment on above: Performed By: #### G TT3P #### [facility] [address] [address] [address] Garland Kohli Potassium [Moles/Vol] 3.6 mmol/L Normal 3.5-5.1 [facility] Comment on above: Performed By: #### G TT3P #### [facility] [address] [place] [address] Dr. Garland Kohli Sodium [Moles/Vol] 136 mmol/L Normal 136-145 [facility] Comment on above: Performed By: #### G TT3P #### [facility] [address] [place] [address] Dr. Garland Kohli Urea nitrogen [Mass/Vol] 5.0 mg/dL Critically low 7.0-18.0 [facility] Comment on above: Performed By: #### G TT3P #### [facility] [address] [place] [address] Dr. Garland Kohli Urea nitrogen/Creatinine [Mass ratio] 11.6 mg/mg Normal [facility] Comment on above: Performed By: #### G TT3P #### [facility] [address] [place] [address] Dr. Garland Kohli TROPONIN, HIGH SENSITIVITYon 04-04-2022 HSTROP 9.3 pg/mL Normal 4.0-51.3 [facility] Comment on above: Result Comment: CUT- OFF POINTS HAVE BEEN ESTABLISHED BASED ON THE FOURTH UNIVERSAL DEFINITIONS OF MYOCARDIAL INFARCTION. THE UPPER REFERENCE LIMIT (URL) OF TROPONIN, DEFINED THE 99TH PERCENTILE OF cTnI DISTRIBUTION IN A REFERENCE POPULATION, HAS BEEN CONFIRMED THE DECISION THRESHOLD FOR [place] DIAGNOSIS. Performed By: #### G TT3P #### [facility] [address] [place], [place] [id number] Dr. Garland Kohli CBC AUTO DIFFon 03-26-2022 BASO # 0.0 103/ul Normal 0.0-0.1 [facility] Comment on above: Performed By: #### G TT3P #### [facility] [address] [place] [address] Dr. Garland Kohli Basophils/100 WBC (Bld) 0.2 % Normal 0.2-2.0 [facility] Comment on above: Performed By: #### G TT3P #### [facility] [address] [place] [address] Dr. Garland Kohli EO # 0.1 103/ul Normal 0.0-0.7 [facility] Comment on above: Performed By: #### G TT3P #### [facility] [address] [place] [address] Dr. Garland Kohli Eosinophils/100 WBC (Bld) 1.0 % Normal 0.9-7.0 [facility] Comment on above: Performed By: #### G TT3P #### [facility] [address] [place] [address] Dr. Garland Kohli Erythrocyte distribution width (RBC) [Ratio] 12.8 % Normal 11.0-15.0 [facility] Comment on above: Performed By: #### G TT3P #### [facility] [address] [place] [address] Dr. Garland Kohli Hematocrit (Bld) [Volume fraction] 36.2 % Normal 36.0-48.0 [facility] Comment on above: Performed By: #### G TT3P #### [facility] [address] [place] [address] Dr. Garland Kohli Hemoglobin (Bld) [Mass/Vol] 12.2 g/dL Normal 12.0-16.0 [facility] Comment on above: Performed By: #### G TT3P #### [facility] [address] [place] [address] Dr. Garland Kohli IG # 0.08 10e3/ul Critically high 0.00-0.03 [facility] Comment on above: Performed By: #### G TT3P #### [facility] [address] [address] [address] Garland Kohli IG % 0.9 % Critically high 0.0-0.5 [facility] Comment on above: Performed By: #### G TT3P #### [facility] [address] [address] [address] Garland Kohli LYMPH # 1.7 103/ul Normal 1.2-3.8 [facility] Comment on above: Performed By: #### G TT3P #### [facility] [address] [place] [address] Dr. Garland Kohli Lymphocytes/100 WBC (Bld) 17.8 % Critically low 20.5-60.0 [facility] Comment on above: Performed By: #### G TT3P #### [facility] [address] [place] [address] Dr. Garland Kohli MANUAL DIFF REQ NO Normal [facility] Comment on above: Performed By: #### G TT3P #### [facility] [address] [place] [address] Dr. Garland Kohli MCH (RBC) [Entitic mass] 30.7 pg Normal 26.7-34.0 [facility] Comment on above: Performed By: #### G TT3P #### [facility] [address] [place] [address] Dr. Garland Kohli MCHC (RBC) [Mass/Vol] 33.7 g/dL Normal 29.9-35.2 [facility] Comment on above: Performed By: #### G TT3P #### [facility] [address] [place] [address] Dr. Garland Kohli MCV (RBC) [Entitic vol] 91.2 fL Normal 81.0-99.0 [facility] Comment on above: Performed By: #### G TT3P #### [facility] [address] [place] [address] Dr. Garland Kohli MONO # 0.6 103/ul Normal 0.3-0.8 [facility] Comment on above: Performed By: #### G TT3P #### [facility] [address] [address] [address] Garland Kohli Monocytes/100 WBC (Bld) 6.0 % Normal 1.7-12.0 [facility] Comment on above: Performed By: #### G TT3P #### [facility] [address] [address] [address] Garland Kohli NEUT # 6.9 103/ul Critically high 1.4-6.5 [facility] Comment on above: Performed By: #### G TT3P #### [facility] [address] [place] [address] Dr. Garland Kohli Neutrophils/100 WBC (Bld) 74.1 % Normal 43.0-75.0 [facility] Comment on above: Performed By: #### G TT3P #### [facility] [address] [place] [address] Dr. Garland Kohli Platelet mean volume (Bld) [Entitic vol] 10.2 fL Normal 9.5-13.5 [facility] Comment on above: Performed By: #### G TT3P #### [facility] [address] [place] [address] Dr. Garland Kohli PLT 217 103/ul Normal 150-450 [facility] Comment on above: Performed By: #### G TT3P #### [facility] [address] [place] [address] Dr. Garland Kohli RBC 3.97 106/ul Critically low 4.20-5.40 [facility] Comment on above: Performed By: #### G TT3P #### [facility] [address] [place] [address] Dr. Garland Kohli WBC 9.3 103/ul Normal 4.0-11.0 [facility] Comment on above: Performed By: #### G TT3P #### [facility] [address] [place] [address] Dr. Garland Kohli GLUCOSE - 1HRon 03-26-2022 Glucose [Mass/Vol] 155 mg/dL Critically high 74-106 [facility] Comment on above: Performed By: #### C BC #### [facility] [address] [address] [address] Garland Kohli US PREG ANATOMY SINGLEon US PREG ANATOMY SINGLE EXAMINATION: US PREG ANATOMY SINGLE HISTORY: screening COMPARISON: No relevant comparison available. TECHNIQUE: Transabdominal sonographic examination was performed for obstetrical and evaluation. FINDINGS: Number: 1 Heart Rate: 157.0 bpm H.B. /min Amniotic Fluid Volume: Subjectively normal Placental Location: Anterior with lower margin 2.4 cm from os. Cervix Length: 5.3 cm, closed. ANATOMY: Normal Structures -cerebellum, choroid plexus, cisterna magna, lateral cerebral ventricles, orbits, midline falx, hard palate, four-chamber heart, RVOT, LVOT, stomach, kidneys, bladder, umbilical cord insertion into abdomen, three-vessel cord, cervical spine, thoracic spine, lumbar spine, sacral spine, right upper extremity, left upper extremity, right lower extremity, left lower extremity. SUBOPTIMALLY SEEN: None ABNORMALITIES: None BIOMETRY: BPD: 4.8 cm 20 weeks 3 days HC: 17.2 cm 19 weeks 5 days AC: 15.4 cm 20 weeks 4 days FL: 3.5 cm 20 weeks 6 days EFW:366.5 grams; 73% FL/AC: 22.4 FL/BPD: 72.7 HC/AC: 1.1 GESTATIONAL AGE: Age by EDC: 20 weeks 1 days SERENA by EDC: 06/27/2022 Age by current US: 20 weeks 3 days SERENA by current US: 06/25/2022 IMPRESSION: 1. Single live intrauterine with growth detailed above. Electronically authenticated by: YAAKOV TERAN Date: 2022-02-09 19:30 Normal [facility] AFP MATERNAL FOR SPINA BIFID Aon 01-29-2022 AFP MoM 0.76 Normal [facility] Comment on above: Performed By: #### G TT3P #### [facility] [address] [address] [address] Garland Kohli AFP Value 35.4 ng/mL Normal [facility] Comment on above: Performed By: #### G TT3P #### [facility] [address] [address] [address] Garland Kohli AFP, Serum for Spina Bifida Report Normal [facility] Comment on above: Performed By: #### G TT3P #### [facility] [address] [address] [address] Garland Kohli Comment Comment Normal [facility] Comment on above: Result Comment: Stanley Almodovar, Ph.D., [facility] Director . References: Available Upon Request. . Multiples Of Median Cutoffs For AFP Elevations Mark 2.5 Black 2.8 IDD 2.0 Twins 4.5 Abbreviation Definitions IDD - Insulin Dep Diabetes OSBR - Open Spina Bifida Risk . For further inquiries contact [facility] at [phone]. . This test was developed and its performance characteristics determined by [facility]. It has not been cleared or approved by the Food and Drug Administration. Performed By: #### G TT3P #### [facility] [address] [address] [address] Garland Kohli Gest Age Collection Date 18.1 weeks Normal [facility] Comment on above: Performed By: #### G TT3P #### [facility] [address] [address] [address] Garland Kohli Gestat, Age Based on Ultrasound Normal [facility] Comment on above: Result Comment: 09:4 on 11/26/2021 Recalculations are not recommended when gestational dating by LMP and ultrasound are within 10 days. Performed By: #### G TT3P #### [facility] [address] [place] [address] Dr. Garland Kohli Insulin Dep Diabetes No Normal [facility] Comment on above: Performed By: #### G TT3P #### [facility] [address] [place] [address] Dr. Garland Kohli Interpretation Comment Normal [facility] Comment on above: Result Comment: Inte rpretation: Screen Negative . This result is screen negative for OSB. The AFP MoM calculated is based on the gestational age provided. MS-AFP can identify up to 80% of open neural tube defects. Closed neural tube defects and some open defects may not be detected by this test. This test does not screen for Down Syndrome or Trisomy 18. If screening for Down Syndrome or Trisomy 18 is desired, contact [facility] to discuss available options. The [employer] recommends amniocentesis be offered to women age 35 and older. Performed By: #### G TT3P #### [facility] [address] [place] [address] Dr. Garland Kohli Maternal Age at SERENA 26.[address] [facility] Comment on above: Performed By: #### G TT3P #### [facility] [address] [place] [address] Dr. Garland Kohli Multiple Gestation No Normal [facility] Comment on above: Performed By: #### G TT3P #### [facility] [address] [place] [address] Dr. Garland Kohli OSBR Risk 1 [place] [id number] [facility] Comment on above: Performed By: #### G TT3P #### [facility] [address] [place] [address] Dr. Garland Kohli PDF . [facility] Comment on above: Performed By: #### G TT3P #### [facility] [address] [place] [address] Dr. Garland Kohli Race [facility] Comment on above: Performed By: #### G TT3P #### [facility] [address] [place] [address] Dr. Garland Kohli Test Results: Negative [facility] Comment on above: Performed By: #### G TT3P #### [facility] [address] [place] [address] Dr. Garland Kohli PAP ACOG PANEL 2: 21 to 29on 01-23-2022 . . [facility] Comment on above: Performed By: #### [id number] #### [facility] [address] [place] [address] Dr. Garland Kohli Age Gdln ACOG Testing [facility] Comment on above: Performed By: #### [id number] #### [facility] [address] [place] [address] Dr. Garland Kohli DIAGNOSIS: Comment [facility] Comment on above: Result Comment: NEGA TIVE FOR INTRAEPITHELIAL LESION OR MALIGNANCY. Performed By: #### [id number] #### [facility] [address] [place] [address] Dr. Garland Kohli Methodology: Comment Normal [facility] Comment on above: Result Comment: This liquid based ThinPrep(R) pap test was screened with the use of an image guided system. Performed By: #### [id number] #### [facility] [address] [place] [address] Dr. Garland Kohli Note: Comment Normal [facility] Comment on above: Result Comment: The Pap smear is a screening test designed to aid in the detection of premalignant and malignant conditions of the uterine cervix. It is not a diagnostic procedure and should not be used as the sole means of detecting cervical cancer. Both false-positive and false-negative reports do occur. . Performed By: #### [id number] #### [facility] [address] [place] [address] Dr. Garland Kohli Performed by: Comment Normal [facility] Comment on above: Result Comment: Kelly Arreguin, Glove Presser (ASCP) Performed By: #### [id number] #### [facility] [address] [place] [address] Dr. Garland Kohli Reflex Criteria: Comment Normal [facility] Comment on above: Result Comment: The HPV DNA reflex criteria were not met with this specimen result therefore, no HPV testing was performed. . Performed By: #### [id number] #### [facility] [address] [place] [address] Dr. Garland Kohli Specimen adequacy: Comment Normal [facility] Comment on above: Result Comment: Sati sfactory for evaluation. No endocervical component is identified. Performed By: #### [id number] #### [facility] [address] [place] [address] Dr. Garland Kohli CHLAMYDIA/GONOCOCCUS JUAN (SW AB/URINE/PAPon 01-20-2022 Chlamydia trachomatis, JUAN Negative Normal Negative [facility] Comment on above: Performed By: #### C BC #### [facility] [address] [place] [address] Dr. Garland Kohli Neisseria gonorrhoeae, JUAN Negative Normal Negative [facility] Comment on above: Performed By: #### C BC #### [facility] [address] [place] [address] Dr. Garland Kohli TSHon 01-04-2022 TSH 1.707 uIU/mL Normal 0.358-3.740 [facility] Comment on above: Performed By: #### G TT3P #### [facility] [address] [place] [address] Dr. Garland Kohli HEPATITIS C VIRUS AB W/ REFL EX QUANTon 12-17-2021 HCV AB <0.1 Normal 0.0-0.9 [facility] Comment on above: Performed By: #### G TT3P #### [facility] [address] [place] [address] Dr. Garland Kohli Interpretation: Comment Normal [facility] Comment on above: Result Comment: Nega tive Not infected with HCV, unless recent infection is suspected or other evidence exists to indicate HCV infection. Performed By: #### G TT3P #### [facility] [address] [place] [address] Dr. Garland Kohli CULTURE URINEon 12-15-2021 CULTURE URINE Culture Observations : GREATER THAN TWO ORGANISMS PRESENT. PLEASE RESUBMIT CLEAN CATCH MID-STREAM URINE IF CLINICALLY INDICATED. Normal [facility] Comment on above: Performed By: #### U RCX #### [facility] [address] [place] [address] Dr. Garland Kohli HEP B SURFACE ANTIGEN SCREEN on 12-15-2021 HBsAg Screen Negative Normal Negative [facility] Comment on above: Performed By: #### H BSANS #### [facility] [address] [place] [address] Dr. Garland Kohli HIV 1 AND 2 WITH REFLEXon HIV Screen 4th Generation wRfx Non-Reactive Normal Non Reactive [facility] Comment on above: Result Comment: HIV Negative HIV-1/HIV-2 antibodies and HIV-1 p24 antigen were NOT detected. There is no laboratory evidence of HIV infection. Performed By: #### H IV12 #### [facility] [address] [place] [address] Dr. Garland Kohli RPR QUANTon 12-15-2021 Rapid Plasma Reagin, Quant Non-Reactive Normal NonRea<1:1 [facility] Comment on above: Result Comment: Elmo torres Note: This test does not meet current guidelines for screening and diagnosis of syphilis. This test is intended for following treatment response in patients being treated for syphilis infection. To screen for syphilis infection, a reflex cascade that includes both RPR and a treponema-specific assay should be utilized, such as Treponema pallidum (Syphilis) Screening [place] (274325) or Rapid Plasma Reagin (RPR) Test With Reflex to Quantitative RPR and Confirmatory Treponema pallidum Antibodies (704195). Performed By: #### G TT3P #### [facility] [address] [place] [address] Dr. Garland Kohli RUBELLA AB IGGon 12-15-2021 Rubella Antibodies, IgG 4.72 index Normal Immune >0.99 [facility] Comment on above: Result Comment: Non- immune <0.90 Equivocal 0.90 - 0.99 Immune >0.99 Performed By: #### G TT3P #### [facility] [address] [place] [address] Dr. Garland Kohli CBC AUTO DIFFon 12-14-2021 BASO # 0.0 103/ul Normal 0.0-0.1 [facility] Comment on above: Performed By: #### C BC #### [facility] [address] [place] [address] Dr. Garland Kohli Basophils/100 WBC (Bld) 0.3 % Normal 0.2-2.0 [facility] Comment on above: Performed By: #### C BC #### [facility] [address] [place] [address] Dr. Garland Kohli EO # 0.1 103/ul Normal 0.0-0.7 [facility] Comment on above: Performed By: #### C BC #### [facility] [address] [place] [address] Dr. Garland Kohli Eosinophils/100 WBC (Bld) 0.8 % Critically low 0.9-7.0 [facility] Comment on above: Performed By: #### C BC #### [facility] [address] [place] [address] Dr. Garland Kohli Erythrocyte distribution width (RBC) [Ratio] 12.6 % Normal 11.0-15.0 [facility] Comment on above: Performed By: #### C BC #### [facility] [address] [place] [address] Dr. Garland Kohli Hematocrit (Bld) [Volume fraction] 34.3 % Critically low 36.0-48.0 [facility] Comment on above: Performed By: #### C BC #### [facility] [address] [place] [address] Dr. Garland Kohli Hemoglobin (Bld) [Mass/Vol] 11.7 g/dL Critically low 12.0-16.0 [facility] Comment on above: Performed By: #### C BC #### [facility] [address] [place] [address] Dr. Garland Kohli IG # 0.03 10e3/ul Normal 0.00-0.03 [facility] Comment on above: Performed By: #### C BC #### [facility] [address] [place] [address] Dr. Garland Kohli IG % 0.4 % Normal 0.0-0.5 [facility] Comment on above: Performed By: #### C BC #### [facility] [address] [place] [address] Dr. Garland Kohli LYMPH # 1.5 103/ul Normal 1.2-3.8 [facility] Comment on above: Performed By: #### C BC #### [facility] [address] [place] [address] Dr. Garland Kohli Lymphocytes/100 WBC (Bld) 21.1 % Normal 20.5-60.0 [facility] Comment on above: Performed By: #### C BC #### [facility] [address] [place] [address] Dr. Garland Kohli MANUAL DIFF REQ NO Normal [facility] Comment on above: Performed By: #### C BC #### [facility] [address] [place] [address] Dr. Garland Kohli MCH (RBC) [Entitic mass] 30.5 pg Normal 26.7-34.0 [facility] Comment on above: Performed By: #### C BC #### [facility] [address] [place] [address] Dr. Garland Kohli MCHC (RBC) [Mass/Vol] 34.1 g/dL Normal 29.9-35.2 [facility] Comment on above: Performed By: #### C BC #### [facility] [address] [place] [address] Dr. Garland Kohli MCV (RBC) [Entitic vol] 89.6 fL Normal 81.0-99.0 [facility] Comment on above: Performed By: #### C BC #### [facility] [address] [place] [address] Dr. Garland Kohli MONO # 0.5 103/ul Normal 0.3-0.8 [facility] Comment on above: Performed By: #### C BC #### [facility] [address] [place] [address] Dr. Graland Kohli Monocytes/100 WBC (Bld) 7.1 % Normal 1.7-12.0 [facility] Comment on above: Performed By: #### C BC #### [facility] [address] [place] [address] Dr. Garland Kohli NEUT # 5.0 103/ul Normal 1.4-6.5 [facility] Comment on above: Performed By: #### C BC #### [facility] [address] [place] [address] Dr. Garland Kohli Neutrophils/100 WBC (Bld) 70.3 % Normal 43.0-75.0 [facility] Comment on above: Performed By: #### C BC #### [facility] [address] [place] [address] Dr. Garland Kohli Platelet mean volume (Bld) [Entitic vol] 10.1 fL Normal 9.5-13.5 [facility] Comment on above: Performed By: #### C BC #### [facility] [address] [place] [address] Dr. Garland Kohli PLT 234 103/ul Normal 150-450 [facility] Comment on above: Performed By: #### C BC #### [facility] [address] [place] [address] Dr. Garland Kohli RBC 3.83 106/ul Critically low 4.20-5.40 [facility] Comment on above: Performed By: #### C BC #### [facility] [address] [place] [address] Dr. Garland Kohli WBC 7.1 103/ul Normal 4.0-11.0 [facility] Comment on above: Performed By: #### C BC #### [facility] [address] [place] [address] Dr. Garland Kohli GLYCOHEMOGLOBIN A1Con 2021 ADA RECOMMENDATION SEE BELOW Normal [facility] Comment on above: Result Comment: ADA RECOMMENDED LIMIT 4.0 - 6.0 ADA THERAPEUTIC TARGET < 7.0 ACTION SUGGESTED > 7.0 Performed By: #### A 1C #### [facility] [address] [place] [address] Dr. Garland Kohli Glucose [Mass/Vol] 103 mg/dL Normal [facility] Comment on above: Performed By: #### A 1C #### [facility] [address] [place] [address] Dr. Garland Kohli HbA1c (Bld) [Mass fraction] 5.2 % Normal 4.5-6.2 [facility] Comment on above: Performed By: #### A 1C #### [facility] [address] [place] [address] Dr. Garland Kohli MARTÍNEZ BOX TEST PT SEND OUTo n 12-14-2021 SENT TO REF LAB 12/14/21 Normal [facility] Comment on above: Performed By: #### G TT3P #### [facility] [address] [place] [address] Dr. Garland Kohli TYPE AND SCREENon 12-14-2021 TYPE AND SCREEN Negative Normal [facility] Comment on above: Performed By: #### C #### [facility] [address] [place] [address] Dr. Garland Kohli US PREG TVon 11-26-2021 US PREG TV EXAMINATION: US PREG TV HISTORY: Missed period COMPARISON: No relevant comparison available. FINDINGS: GESTATIONAL SAC: Present and normal appearing. POLE: Present and normal appearing. YOLK SAC: Present. CARDIAC: Present. UTERUS: Normal size and appearance. OVARIES: Right: Normal. Left: Contains a 4.8 cm anechoic simple appearing cyst. CERVIX: 5.1 cm in length and closed. CUL-DE-SAC: Normal. OTHER: None. AGE BY LMP: Unknown LMP SERENA BY LMP: AGE BY US CRL: 9 weeks, 4 days SERENA BY US CRL: 06/27/2022 IMPRESSION: 1. Single live intrauterine . 2. Left ovary contains a large 4.8 cm benign-appearing cyst. Consider follow-up to document resolution. Electronically authenticated by: YAAKOV TERAN Date: 2021-11-26 18:36 Normal [facility] OPERATIVE REPORTon 9 OPERATIVE REPORT [place] [id number] OPERATIVE REPORT PATIENT NAME: JULIÁN JOHNSON : 1995 MED REC NO: [id number] ROOM: ACCOUNT NO: [id number] ADMIT DATE: 11/24/2018 PROVIDER: Mode Renee DATE OF PROCEDURE: 11/24/2018 PRIMARY CARE PHYSICIAN: Mo Coleman PREOPERATIVE DIAGNOSIS: Symptomatic macromastia. POSTOPERATIVE DIAGNOSIS: Symptomatic macromastia. OPERATION PERFORMED: 1. Suction assisted lipectomy of the breasts and axilla. 2. Bilateral reduction mammoplasty. SURGEON: Mode Renee ANESTHESIA: General. COMPLICATIONS: None. ESTIMATED BLOOD LOSS: Minimal. INDICATION AND SIGNIFICANT HISTORY: The patient is a very pleasant 23??year??old white female seen with symptomatic macromastia. Risks and benefits of reduction mammoplasty were explained to the patient. Risks such as bleeding, infection, scars, possibility of loss of nipple sensation, possibility of loss of blood supply to the nipples, possibility of wound healing problems, possibility of residual asymmetries, possibility of need for revision surgery to improve the appearance, possibility of patient dissatisfaction, possibility of non-resolution of her symptoms were all explained. She had the opportunity to ask a variety of questions. I went over a multi-page consent form with her in detail. She had initials and sign signifying she has read and understood the entirety of the document. DESCRIPTION OF OPERATIVE PROCEDURE: The patient was marked in the preoperative holding area for sternal notch to nipple distances of 23 cm each and then the patient was brought to the operating room, placed supine on the operating table. After adequate general anesthesia and sterile prep and drape, careful attention to aseptic surgical technique was maintained at all times as a small amount of Marcaine with epinephrine was infiltrated and then incisions were made at the bottom of the breast and tumescent fluid 1:1,000,000 epinephrine for total of 2 L was infiltrated, 1 L to each breast and axilla followed by suction assisted lipectomy using the reciprocating MicroAire liposuction cannula of 4 mm diameter. 2 L of aspirate having been obtained with slightly more lipoaspirate from the left breast compared to the right. The attention was then turned to the right breast where the 4.2 cm cookie cutter was used to preserve a 4.2 cm diameter nipple areolar complex and de-epithelialization was carried out to maintain the nipple-areolar complex on the superior and superior medially based pedicle. The inferior and inferior lateral portions of glandular tissue were removed using Bovie electrocautery. Meticulous hemostasis was obtained at all time. Pocket was irrigated out with antibiotics followed by clear saline, then the medial and lateral vertical pillars were reapproximated using 0 Vicryl sutures. The nipple was inset at the superior most portion of the vertical incision and a few of additional deep fascial sutures of 0 Vicryl were applied to help for the reapproximation of skin edges with eversion followed by placing a #10 Yonis-Hodgson drain to the lower most portion of the incision securing with a 2-0 silk suture. A series of deep dermal intracuticular INSORB kay were used to reapproximate the skin edges with eversion followed by running intracuticular 3-0 Monocryl suture with tails tied below the skin throughout. Steri-Strips were applied and total weight removed from the right breast being approximately 450 gm. Attention was turned to the opposite side with the exact same procedure was carried out and a total weight removed from the left breast being 470 gm. Small amount of Marcaine was infiltrated into the drains, this was for senior living pain control. Steri-Strips applied throughout and then bulky gauze dressing as well as surgical bra was applied. The patient was awoken, extubated, and transported to the recovery room in stable condition. Sponge, needle, and instrument counts were reported correct x2 at the end of the case. MODE RENEE [id number] Doc#: [id number] CC: Mo Coleman Normal [facility] Surgical Pathologyon 019 Surgical Pathology (NOTE) [id number] [facility] [address] [place] [address] SURGICAL PATHOLOGY REPORT Patient Name: UJLIÁN JOHNSON MR#: [id number] Specimen #[id number] Final Diagnosis SPECIMEN A : BREAST AND PORTIONS OF SKIN (TOTAL WEIGHT 453 GM), MAMMOPLASTY: PORTIONS OF MAMMARY TISSUE SHOWING MILD FIBROCYSTIC CHANGES AND FOCI OF ADENOSIS. PORTIONS OF SKIN. NEGATIVE FOR MALIGNANCY OR ATYPIA. SPECIMEN B : BREAST AND PORTIONS OF SKIN (494 GM), REDUCTION MAMMOPLASTY: PORTIONS OF MAMMARY TISSUE SHOWING MILD FIBROCYSTIC CHANGES AND FOCI OF ADENOSIS. PORTIONS OF SKIN. NEGATIVE FOR MALIGNANCY OR ATYPIA. Kevin Nicolas M.D. Electronically Signed Out 11/26/2018 Clinical Information Bilateral breast macromastia; breast mammoplasty reduction w/liposuction; formalin time: A) 9:48, B) 10:16 Source: A: Right breast B: Left breast Gross Description Specimen A : The specimen received in formalin is labeled right breast . It is a product of breast mammoplasty reduction. It consists of a portion of mammary tissue with an attached triangular portion of skin and 3 additional separate strips of skin. The separate strips of skin measure from 5 x 0.4 x 0.1 cm up to 9 x 4 x 0.4 cm. The portion of skin attached to the mammary tissue measures 7 cm x 5 cm x 0.8 cm. The skin presents with a grayish white appearance with no grossly discernible lesions. The mammary tissue itself measures 16 cm x 16 cm x 5 cm. It is composed of adipose tissue within which strands of grayish white and grayish pink tissue are seen. No discrete lesions are identified. The entire specimen weighs 453 grams. Multiple technical sales representative sections are submitted in five cassettes for microscopic examination. Specimen B : The specimen received in formalin is labeled left breast . It is a product of breast mammoplasty reduction. This component weighs 494 grams. It consists of two elongated portions of skin, a separate portion of mammary tissue and a larger portion of mammary tissue with attached skin. The strips of skin measure 20 cm by up to 0.5 cm by up to 0.4 cm and 15 cm by up to 3 cm by up to 0.4 cm. The attached roughly triangular portion of skin with a circular defect at its base overall measures 9 cm x 5 cm. The skin appears grossly unremarkable. The next component is roughly oblong and measures 6 x 4 x 2 cm. It is composed of membranous grayish white tissue and lobulated fat. The major component of the specimen measures 15 cm x 15 cm x up to 3.5 cm. Externally and upon step-sectioning, it resembles specimen A above. No discrete lesions are identified. This component is also sampled in multiple different areas and technical sales representative sections are submitted in five cassettes for microscopic examination. Microscopic Description Specimen A : Five RICHARD glass slides are received. Microscopic examination is performed. Specimen B : Five RICHARD glass slides are received. Microscopic examination is performed. Normal [facility] Comment on above: Performed By: #### P PPES #### [facility] [address] [place] [address] Maxillofacial Surgeon: Victor Manuel Hunter DO CNOVSPon 11-18-2018 CNOVSP Visit (SP) Office ([facility]) JULIÁN JOHNSON ([id number]) 1995 F Date Time Provider Department 11/18/18 1:00 PM MOSES MOULTON) KAHTARINE During your visit today, we recorded the following information about you: Temperature Pulse Respiration Blood pressure 97.9 degrees 82/minute 18/minute 122/78 Weight Height Last Period 82.7 kg 1.6 m 10/15/18 Moses Moulton MD 11/18/2018 3:08 PM Signed PATIENT NAME: Julián Johnson CLINIC NO.: [id number] ATTENDING PHYSICIAN: Moses Moulton MD DATE OF SERVICE: November 18, 2018 This document has been created with the use of voice recognition technology. It may contain inaccuracies, misspellings, inaccurate syntax or inappropriate word context that escaped review. Dear Dr. OSUNA thank you for referring Miss Julián Johnson for an opinion regarding surgical clearance. CHIEF COMPLAINT: I need surgical clearance HPI: Julián Johnson is a 23 year old year old female with no segment and past medical history who is planning to undergo breast reduction surgery next week. Patient states that her father was diagnosed with an unprovoked pulmonary embolism approximate 7 years ago. He underwent testing and was noted to have an MTHFR mutation. She states that she also had testing performed and she has heterozygote MTH mutation. She denies any previous history of thrombosis. She declines control use. Current Outpatient Medications: acetaminophen (TYLENOL) 325 mg cap Take by mouth. albuterol HFA (PROVENTIL HFA) 90 mcg/actuation inhaler Inhale 2 Puffs as instructed. albuterol HFA (PROVENTIL HFA, VENTOLIN HFA) 90 mcg/actuation inhaler INHALE 2 PUFFS PO Q 4 H PRN cyclobenzaprine (FLEXERIL) 5 mg tablet fexofenadine (TASHA) 180 mg tablet Take 180 mg by mouth. fluticasone-vilantero l (BREO ELLIPTA) 100-25 mcg/dose inhaler Inhale 1 Puff as instructed. ibuprofen (MOTRIN) 600 mg tablet Take 600 mg by mouth. lactase (LACTAID) 9,000 unit tab Take 9,000 Units by mouth. lansoprazole (PREVACID) 30 mg capsule levalbuterol (XOPENEX) 1.25 mg/3 mL nebulizer solution 1 Ampule. levothyroxine (SYNTHROID) 88 mcg tablet Take 88 mcg by mouth. loperamide (IMODIUM) 2 mg cap(s) Take 2 mg by mouth. melatonin 2.5 mg chew Take 2.5 mg by mouth. montelukast (SINGULAIR) 10 mg tablet TRANSDERM-SCOP 1.5 MG TRANSDERMAL PATCH (1 MG OVER 3 DAYS) sulfamethoxazole-trim ethoprim (BACTRIM DS,SEPTRA DS) 800-160 mg per tablet promethazine (PHENERGAN) 25 mg tablet Take 25 mg by mouth. docusate sodium (COLACE ORAL) Take 1 tablet by mouth. Naproxen Sodium powd Take 2 tablets by mouth. No current facility-administered medications for this visit. ALLERGIES Allergen Reactions - Ciprofloxacin Shortness of Breath asthma - Ceftin [Cefuroxime] Rash, Swelling - Gluten Unknown - Seasonal Allergies Unknown - Adhesive Tape (Judi* Rash Rash with paper tape only - Cefuroxime Axetil Rash On tongue, neck and face, tongue numb - Doxycycline Vomiting PAST MEDICAL HISTORY Diagnosis Date - MTHFR mutation (HCC) History reviewed. No pertinent surgical history. History reviewed. No pertinent family history. Social History Socioeconomic History Marital status: Single Spouse name: Not on file Number of children: Not on file Years of education: Not on file Highest education level: Not on file Occupational History Not on file Social Needs Financial resource strain: Not on file Food insecurity: Worry: Not on file Inability: Not on file Transportation needs: Medical: Not on file Non-medical: Not on file Tobacco Use Smoking status: Never Smoker Smokeless tobacco: Never Used Substance and Sexual Activity Alcohol use: Yes Comment: social Drug use: Never Sexual activity: Not on file Lifestyle Physical activity: Days per week: Not on file Minutes per session: Not on file Stress: Not on file Relationships Social connections: Talks on phone: Not on file Gets together: Not on file Attends mosque service: Not on file Active member of club or organization: Not on file Attends meetings of clubs or organizations: Not on file Relationship status: Not on file Intimate partner violence: Fear of current or ex partner: Not on file Emotionally abused: Not on file Physically abused: Not on file Forced sexual activity: Not on file Other Topics Concerns: Not on file Social History Narrative Not on file REVIEW OF SYSTEMS GENERAL: No weight loss, malaise or fevers. No night sweats. HEENT: Negative for headaches, No changes in hearing or vision, no nose bleeds or other nasal problems. RESPIRATORY: Negative for cough, wheezing and shortness of breath CARDIOVASCULAR: Negative for chest pain, leg swelling and palpitations GI: Negative for abdominal discomfort, blood in stools or black stools and change in bowel habits : Negative for dysuria, frequency and incontinence MUSCULOSKELETAL: Negative for joint pain or swelling, back pain, and muscle pain. SKIN: Negative for lesions, rash, and itching. HEMATOLOGY/LYMPHOLOGY Negative for prolonged bleeding, bruising easily, and swollen nodes. NEURO: Negative for numbness or tingling of hands/feet. No weakness. PHYSICAL EXAMINATION: BP 122/78 Pulse 82 Temp 36.6 ?C (97.9 ?F) (Oral) Resp 18 Ht 160 cm (5' 2.99 ) Wt 82.7 kg (182 lb 6.4 oz) LMP 10/15/2018 SpO2 99% BMI 32.32 kg/m? Wt 82.7 kg (182 lb 6.4 oz) BMI 32.32 kg/m2 Last 3 Encounter Wt Readings: Date: Wt: 11/18/2018 82.7 kg (182 lb 6.4 oz) General appearance:ECOG PERFORMANCE STATUS: 0- Fully active, able to carry on all pre-disease performance w/o restriction. Patient in NAD. Skin: Skin color, texture, turgor normal. No rashes or lesions. Eyes: Anicteric sclera. Pupils are equally round and reactive to light. Extraocular movements are intact. Lymph Nodes: No cervical, supraclavicular, axillary or inguinal adenopathy. Oropharynx: Lips, mucosa, and tongue normal. Back: No pain to percussion. Negative SLR test Lungs clear to auscultation, No wheezing or rhonchi Heart: RRR without murmur, gallop, or rubs. Abdomen soft, non-tender. No masses, organomegaly Extremities: No deformities. No edema Neuro: Gait and speech normal. Reflexes normal and symmetric. Muscular strength intact. Sensation grossly intact. Rectal: Deferred : Deferred LABS: No results found for: GLUC, K, NA, CHLOR, CO2, CREAT, BUN, ANION, CA, TPROT, ALB, TBILI, ALKPHOS, AST, ALT No results found for: WBC, RBC, HB, HCT, MCV, MCH, MCHC, RDWCV, PLT, MPV, MPV, NEUT, ABSNEUT, LYMPHP, ABSLYMPH, MONOP, ABSMONO, EOSINP, ABSEOSIN, BASOP, ABSBASO ASSESSMENT AND PLAN: Julián Johnson is a 23 year old year old female with no significant past medical history and no previous history of thromboembolic events. She has a father who had an unprovoked pulmonary emboli and she was tested for MTHFR and has a heterozygous mutation. At this time I stated that there are no contraindication for her to proceed with surgery. No precautions required outside of standard surgical precautions. Her clearance form has been signed. She can follow-up with us on a when necessary basis. Dear Dr. OSUNA thank you for allowing me to participate in Miss Julián Johnson care, if there are any questions or concerns please do not hesitate to contact me at the number below. Moses Moulton M.D. Hematology/Medical Oncology [place] [address] [phone] CC: Mo Coleman MD - (Inactive), In Basket (Inactive) - User (Inactive) [id number] [place] [id number] () Mode Renee MD Referring Provider: SELF [200] Allergies As of Date: 11/18/2018 Noted Allergy Reaction CIPROFLOXACIN 11/10/2018 12 - Shortness of Breath Comments: asthma CEFTIN (CEFUROXIME) 11/18/2018 2 - Rash 7 - Swelling GLUTEN 11/10/2018 16 - Unknown SEASONAL ALLERGIES 11/10/2018 16 - Unknown ADHESIVE TAPE (ROSINS) 11/10/2018 2 - Rash Comments: Rash with paper tape only CEFUROXIME AXETIL 11/10/2018 2 - Rash Comments: On tongue, neck and face, tongue numb DOXYCYCLINE 11/10/2018 11 - Vomiting Date Reviewed: 11/18/2018 Reviewed by: Antonieta Nathan - Fully Assessed Visit Diagnosis:MTHFR mutation (HCC) [E72.12] Prescriptions as of 11/18/2018 Sig: ACETAMINOPHEN 325 MG CAPSULE Take by mouth. ALBUTEROL SULFATE HFA 90 MCG/* Inhale 2 Puffs as instructed. ALBUTEROL SULFATE HFA 90 MCG/* INHALE 2 PUFFS PO Q 4 H PRN CYCLOBENZAPRINE 5 MG TABLET FEXOFENADINE 180 MG TABLET Take 180 mg by mouth. FLUTICASONE FUROATE 100 MCG-V* Inhale 1 Puff as instructed. IBUPROFEN 600 MG TABLET Take 600 mg by mouth. LACTASE 9,000 UNIT TABLET Take 9,000 Units by mouth. LANSOPRAZOLE 30 MG CAPSULE,DE* LEVALBUTEROL 1.25 MG/3 ML HOLDEN* 1 Ampule. LEVOTHYROXINE 88 MCG TABLET Take 88 mcg by mouth. LOPERAMIDE 2 MG CAPSULE Take 2 mg by mouth. MELATONIN 2.5 MG CHEWABLE TAB* Take 2.5 mg by mouth. MONTELUKAST 10 MG TABLET TRANSDERM-SCOP 1.5 MG TRANSDE* SULFAMETHOXAZOLE 800 MG-TRIME* PROMETHAZINE 25 MG TABLET Take 25 mg by mouth. COLACE ORAL Take 1 tablet by mouth. NAPROXEN SODIUM (BULK) POWDER Take 2 tablets by mouth. Problem List As Of Date 11/18/2018 Noted Resolved MTHFR mutation (HCC) [E72.12] INVALID FOR* Encounter Status:Closed by MOSES MOULTON MD on 11/18/18 Normal [place] PROGRESSon 11-18-2018 PROGRESS HNO ID: [id number] Author: Moses Hill) [place] Service: ? Author Type: Physician Type: Progress Notes Filed: 11/18/2018 3:08 PM Note Text: PATIENT NAME: Julián Johnson [facility] NO.: [id number] ATTENDING PHYSICIAN: Moses Moulton MD DATE OF SERVICE: November 18, 2018 This document has been created with the use of voice recognition technology. It may contain inaccuracies, misspellings, inaccurate syntax or inappropriate word context that escaped review. Dear Dr. OSUNA thank you for referring Miss Julián Johnson for an opinion regarding surgical clearance. CHIEF COMPLAINT: I need surgical clearance HPI: Julián Johnson is a 23 year old year old female with no segment and past medical history who is planning to undergo breast reduction surgery next week. Patient states that her father was diagnosed with an unprovoked pulmonary embolism approximate 7 years ago. He underwent testing and was noted to have an MTHFR mutation. She states that she also had testing performed and she has heterozygote MTH mutation. She denies any previous history of thrombosis. She declines control use. Current Outpatient Medications: acetaminophen (TYLENOL) 325 mg cap Take by mouth. albuterol HFA (PROVENTIL HFA) 90 mcg/actuation inhaler Inhale 2 Puffs as instructed. albuterol HFA (PROVENTIL HFA, VENTOLIN HFA) 90 mcg/actuation inhaler INHALE 2 PUFFS PO Q 4 H PRN cyclobenzaprine (FLEXERIL) 5 mg tablet fexofenadine (TASHA) 180 mg tablet Take 180 mg by mouth. fluticasone-vilantero l (BREO ELLIPTA) 100-25 mcg/dose inhaler Inhale 1 Puff as instructed. ibuprofen (MOTRIN) 600 mg tablet Take 600 mg by mouth. lactase (LACTAID) 9,000 unit tab Take 9,000 Units by mouth. lansoprazole (PREVACID) 30 mg capsule levalbuterol (XOPENEX) 1.25 mg/3 mL nebulizer solution 1 Ampule. levothyroxine (SYNTHROID) 88 mcg tablet Take 88 mcg by mouth. loperamide (IMODIUM) 2 mg cap(s) Take 2 mg by mouth. melatonin 2.5 mg chew Take 2.5 mg by mouth. montelukast (SINGULAIR) 10 mg tablet TRANSDERM-SCOP 1.5 MG TRANSDERMAL PATCH (1 MG OVER 3 DAYS) sulfamethoxazole-trim ethoprim (BACTRIM DS,SEPTRA DS) 800-160 mg per tablet promethazine (PHENERGAN) 25 mg tablet Take 25 mg by mouth. docusate sodium (COLACE ORAL) Take 1 tablet by mouth. Naproxen Sodium powd Take 2 tablets by mouth. No current facility-administered medications for this visit. ALLERGIES Allergen Reactions - Ciprofloxacin Shortness of Breath asthma - Ceftin [Cefuroxime] Rash, Swelling - Gluten Unknown - Seasonal Allergies Unknown - Adhesive Tape (Judi* Rash Rash with paper tape only - Cefuroxime Axetil Rash On tongue, neck and face, tongue numb - Doxycycline Vomiting PAST MEDICAL HISTORY Diagnosis Date - MTHFR mutation (HCC) History reviewed. No pertinent surgical history. History reviewed. No pertinent family history. Social History Socioeconomic History Marital status: Single Spouse name: Not on file Number of children: Not on file Years of education: Not on file Highest education level: Not on file Occupational History Not on file Social Needs Financial resource strain: Not on file Food insecurity: Worry: Not on file Inability: Not on file Transportation needs: Medical: Not on file Non-medical: Not on file Tobacco Use Smoking status: Never Smoker Smokeless tobacco: Never Used Substance and Sexual Activity Alcohol use: Yes Comment: social Drug use: Never Sexual activity: Not on file Lifestyle Physical activity: Days per week: Not on file Minutes per session: Not on file Stress: Not on file Relationships Social connections: Talks on phone: Not on file Gets together: Not on file Attends mosque service: Not on file Active member of club or organization: Not on file Attends meetings of clubs or organizations: Not on file Relationship status: Not on file Intimate partner violence: Fear of current or ex partner: Not on file Emotionally abused: Not on file Physically abused: Not on file Forced sexual activity: Not on file Other Topics Concerns: Not on file Social History Narrative Not on file REVIEW OF SYSTEMS GENERAL: No weight loss, malaise or fevers. No night sweats. HEENT: Negative for headaches, No changes in hearing or vision, no nose bleeds or other nasal problems. RESPIRATORY: Negative for cough, wheezing and shortness of breath CARDIOVASCULAR: Negative for chest pain, leg swelling and palpitations GI: Negative for abdominal discomfort, blood in stools or black stools and change in bowel habits : Negative for dysuria, frequency and incontinence MUSCULOSKELETAL: Negative for joint pain or swelling, back pain, and muscle pain. SKIN: Negative for lesions, rash, and itching. HEMATOLOGY/LYMPHOLOGY Negative for prolonged bleeding, bruising easily, and swollen nodes. NEURO: Negative for numbness or tingling of hands/feet. No weakness. PHYSICAL EXAMINATION: BP 122/78 Pulse 82 Temp 36.6 ?C (97.9 ?F) (Oral) Resp 18 Ht 160 cm (5' 2.99 ) Wt 82.7 kg (182 lb 6.4 oz) LMP 10/15/2018 SpO2 99% BMI 32.32 kg/m? Wt 82.7 kg (182 lb 6.4 oz) BMI 32.32 kg/m2 Last 3 Encounter Wt Readings: Date: Wt: 11/18/2018 82.7 kg (182 lb 6.4 oz) General appearance:ECOG PERFORMANCE STATUS: 0- Fully active, able to carry on all pre-disease performance w/o restriction. Patient in NAD. Skin: Skin color, texture, turgor normal. No rashes or lesions. Eyes: Anicteric sclera. Pupils are equally round and reactive to light. Extraocular movements are intact. Lymph Nodes: No cervical, supraclavicular, axillary or inguinal adenopathy. Oropharynx: Lips, mucosa, and tongue normal. Back: No pain to percussion. Negative SLR test Lungs clear to auscultation, No wheezing or rhonchi Heart: RRR without murmur, gallop, or rubs. Abdomen soft, non-tender. No masses, organomegaly Extremities: No deformities. No edema Neuro: Gait and speech normal. Reflexes normal and symmetric. Muscular strength intact. Sensation grossly intact. Rectal: Deferred : Deferred LABS: No results found for: GLUC, K, NA, CHLOR, CO2, CREAT, BUN, ANION, CA, TPROT, ALB, TBILI, ALKPHOS, AST, ALT No results found for: WBC, RBC, HB, HCT, MCV, MCH, MCHC, RDWCV, PLT, MPV, MPV, NEUT, ABSNEUT, LYMPHP, ABSLYMPH, MONOP, ABSMONO, EOSINP, ABSEOSIN, BASOP, ABSBASO ASSESSMENT AND PLAN: Julián Johnson is a 23 year old year old female with no significant past medical history and no previous history of thromboembolic events. She has a father who had an unprovoked pulmonary emboli and she was tested for MTHFR and has a heterozygous mutation. At this time I stated that there are no contraindication for her to proceed with surgery. No precautions required outside of standard surgical precautions. Her clearance form has been signed. She can follow-up with us on a when necessary basis. Dear Dr. OSUNA thank you for allowing me to participate in Miss Julián Johnson care, if there are any questions or concerns please do not hesitate to contact me at the number below. Moses Moulton M.D. Hematology/Medical Oncology [facility] [phone] CC: Mo Coleman MD - (Inactive), In Basket (Inactive) - User (Inactive) [address] [facility] [phone] () Mode Renee MD Normal [place] Basic Metabolic Profon 11-10 (cont.) Normal [facility] Comment on above: Result Comment: Aver age GFR for 20-29 years old: 116 mL/min/1.73sq m Chronic Kidney Disease: <60 mL/min/1.73sq m Kidney failure: <15 mL/min/1.73sq m eGFR calculated using average adult body mass. Additional eGFR calculator available at: http://[email or web address].[place]/multiple_crcl_2012.htm Performed By: #### C DP, BMP #### [facility] [address] [place] [address] Maxillofacial Surgeon: Victor Manuel Hunter DO Anion gap [Moles/Vol] 11 mmol/L Normal 9-17 [facility] Comment on above: Performed By: #### C FARAZ, BMP #### [facility] [address] [place] [address] Maxillofacial Surgeon: Victor Manuel Hunter DO Calcium [Mass/Vol] 9.7 mg/dL Normal 8.6-10.4 [facility] Comment on above: Performed By: #### C FARAZ, BMP #### [facility] [address] [place] [address] Maxillofacial Surgeon: Victor Manuel Hunter DO Chloride [Moles/Vol] 102 mmol/L Normal 98-107 [facility] Comment on above: Performed By: #### C DP, BMP #### [facility] [address] [place] [address] Maxillofacial Surgeon: Victor Manuel Hunter DO CO2 [Moles/Vol] 26 mmol/L Normal 20-31 [facility] Comment on above: Performed By: #### C DP, BMP #### [facility] [address] [place] [address] Maxillofacial Surgeon: Fanelly, Victor Manuel, DO Creatinine [Mass/Vol] 0.49 mg/dL Low 0.50-0.90 [facility] Comment on above: Performed By: #### C DP, BMP #### [facility] [address] [place] [address] Maxillofacial Surgeon: Victor Manuel Hunter, DO GFR, Amer >60 Normal >60 [facility] Comment on above: Performed By: #### C DP, BMP #### [facility] [address] [place] [address] Maxillofacial Surgeon: Victor Manuel Hunter, DO GFR,non Amer >60 Normal >60 [facility] Comment on above: Performed By: #### C DP, BMP #### [facility] [place] [address] Maxillofacial Surgeon: Victor Manuel Hunter DO Glucose [Mass/Vol] 88 mg/dL Normal 70-99 [facility] Comment on above: Performed By: #### C DP, BMP #### [facility] [place] [address] Maxillofacial Surgeon: Victor Manuel Hunter DO Potassium [Moles/Vol] 4.3 mmol/L Normal 3.7-5.3 [facility] Comment on above: Performed By: #### C DP, BMP #### [facility] [place] [address] Maxillofacial Surgeon: Victor Manuel Hunter, DO Sodium [Moles/Vol] 139 mmol/L Normal 135-144 [facility] Comment on above: Performed By: #### C DP, BMP #### [facility] [address] [place] [address] Maxillofacial Surgeon: Victor Manuel Hunter, DO Urea nitrogen [Mass/Vol] 8 mg/dL Normal 6-20 [facility] Comment on above: Performed By: #### C DP, BMP #### [facility] [address] [facility] [place] [address] Maxillofacial Surgeon: Victor Manuel Hunter DO BUN/CRE Ratio NOT REPORTED Normal 9-20 [facility] Comment on above: Performed By: #### C DP, BMP #### [facility] [place] [address] Maxillofacial Surgeon: Victor Manuel Hunter DO Staging: NOT REPORTED Normal [facility] Comment on above: Performed By: #### C DP, BMP #### [facility] [address] [place] [address]. [place] [address] Maxillofacial Surgeon: Victor Manuel Hunter DO CBC with Diffon 11-10-2018 Abs. Basophil 0.00 k/uL Normal 0.0-0.2 [facility] Comment on above: Performed By: #### C DP, BMP #### [facility] [address] [place] [address]. [place] [address] Maxillofacial Surgeon: Victor Manuel Hunter DO Abs.Neutrophil (Seg) 3.00 k/uL Normal 1.3-9.1 [facility] Comment on above: Performed By: #### C DP, BMP #### [facility] [address] [place] [address]. [place] [address] Maxillofacial Surgeon: Victor Manuel Hunter DO Basophils/100 WBC (Bld) 0 % Normal 0-2 [facility] Comment on above: Performed By: #### C DP, BMP #### [facility] [place] [address] Maxillofacial Surgeon: Victor Manuel Hunter DO Eosinophils (Bld) [#/Vol] 0.10 10*3/uL Normal 0.0-0.4 [facility] Comment on above: Performed By: #### C DP, BMP #### [facility] [place] [address] Maxillofacial Surgeon: Victor Manuel Hunter DO Eosinophils/100 WBC (Bld) 1 % Normal 0-4 [facility] Comment on above: Performed By: #### C DP, BMP #### [facility] [address] [place] [address] Maxillofacial Surgeon: Victor Manuel Hunter DO Erythrocyte distribution width (RBC) [Ratio] 12.7 % Normal 11.5-14.9 [facility] Comment on above: Performed By: #### C DP, BMP #### [facility] [place] [address] Maxillofacial Surgeon: Victor Manuel Hunter DO Hematocrit (Bld) [Volume fraction] 42.3 % Normal 36-46 [facility] Comment on above: Performed By: #### C DP, BMP #### [facility] [address] [facility] [place] [address] Maxillofacial Surgeon: Victor Manuel Hunter DO Hemoglobin (Bld) [Mass/Vol] 14.3 g/dL Normal 12.0-16.0 [facility] Comment on above: Performed By: #### C DP, BMP #### [facility] [place] [address] Maxillofacial Surgeon: Victor Manuel Hunter DO Lymphocytes (Bld) [#/Vol] 1.70 10*3/uL Normal 1.0-4.8 [facility] Comment on above: Performed By: #### C DP, BMP #### [facility] [place] [address] Maxillofacial Surgeon: Victor Manuel Hunter DO Lymphocytes/100 WBC (Bld) 32 % Normal 24-44 [facility] Comment on above: Performed By: #### C DP, BMP #### [facility] [place] [address] Maxillofacial Surgeon: Victor Manuel Hunter DO MCH (RBC) [Entitic mass] 30.0 pg Normal 26-34 [facility] Comment on above: Performed By: #### C DP, BMP #### [facility] [address] [place] [address] Maxillofacial Surgeon: Victor Manuel Hunter DO MCHC (RBC) [Mass/Vol] 33.7 g/dL Normal 31-37 [facility] Comment on above: Performed By: #### C DP, BMP #### [facility] [place] [address] Maxillofacial Surgeon: Victor Manuel Hunter DO MCV (RBC) [Entitic vol] 89.0 fL Normal 80-100 [facility] Comment on above: Performed By: #### C FARAZ, BMP #### [facility] [place] [address] Maxillofacial Surgeon: Victor Manuel Hunter DO Monocytes (Bld) [#/Vol] 0.60 10*3/uL Normal 0.1-1.3 [facility] Comment on above: Performed By: #### C DP, BMP #### [facility] [place] [address] Maxillofacial Surgeon: Victor Manuel Hunter DO Monocytes/100 WBC (Bld) 11 % High 1-7 [facility] Comment on above: Performed By: #### C DP, BMP #### [facility] [place] [facility] [place] [address] Maxillofacial Surgeon: Victor Manuel Hunter DO Neutrophil (Seg) 56 % Normal 36-66 [facility] Comment on above: Performed By: #### C DP, BMP #### [facility] [place] [address] Maxillofacial Surgeon: Victor Manuel Hunter DO Platelet mean volume (Bld) [Entitic vol] 9.4 fL Normal 6.0-12.0 [facility] Comment on above: Performed By: #### C DP, BMP #### [facility] [address] [place] [address] Maxillofacial Surgeon: Victor Manuel Hunter DO Platelets (Bld) [#/Vol] 252 10*3/uL Normal 150-450 [facility] Comment on above: Performed By: #### C DP, BMP #### [facility] [address] [place] [address] Maxillofacial Surgeon: Victor Manuel Hunter DO RBC (Bld) [#/Vol] 4.75 10*6/uL Normal 4.0-5.2 [facility] Comment on above: Performed By: #### C FARAZ, BMP #### [facility] [address] [place], [place] [address] [address] Maxillofacial Surgeon: Victor Manuel Hunter DO WBC (Bld) [#/Vol] 5.3 10*3/uL Normal 3.5-11.0 [facility] Comment on above: Performed By: #### C FARAZ, BMP #### [facility] [place] [address] Maxillofacial Surgeon: Victor Manuel Hunter DO Abs.Imm.Granulocyte NOT REPORTED Normal 0.00-0.30 [facility] Comment on above: Performed By: #### C DP, BMP #### [facility] [place] [address] Maxillofacial Surgeon: Victor Manuel Hunter DO Auto Diff Performed NOT REPORTED Normal [facility] Comment on above: Performed By: #### C DP, BMP #### [facility] [place] [address] Maxillofacial Surgeon: Victor Manuel Hunter DO Immature granulocytes (Bld) [#/Vol] NOT REPORTED Normal 0 [facility] Comment on above: Performed By: #### C DP, BMP #### [facility] [address] [facility] [place] [address] Maxillofacial Surgeon: Victor Manuel Hunter DO NRBC Automated NOT REPORTED Normal [facility] Comment on above: Performed By: #### C DP, BMP #### [facility] [address] [facility] [place] [address] Maxillofacial Surgeon: Victor Manuel Hunter DO Platelets (Bld) [#/Vol] NOT REPORTED Normal [facility] Comment on above: Performed By: #### C DP, BMP #### [facility] [address] [facility] [place] [address] Maxillofacial Surgeon: Victor Manuel Hunter DO RBC morphology finding Nom (Bld) NOT REPORTED Normal [facility] Comment on above: Performed By: #### C DP, BMP #### [facility] [address] [facility] [place] [address] Maxillofacial Surgeon: Victor Manuel Hunter DO WBC Morphology NOT REPORTED Normal [facility] Comment on above: Performed By: #### C DP, BMP #### [facility] [address] [facility] [place] [address] Maxillofacial Surgeon: Victor Manuel Hunter DO Vital Signs Date Time Vital Sign Value Performing Clinician Alexis zavala 01-29-2022 02:06-0400 Body weight 67.[address] ZEN BREWER . [facility] Comment on above: Performed By: #### G TT3P #### [facility] [address] [place], [place] [id number] Dr. Garland Kohli Encounters Encounter Date Encounter Type Care Provider Facility Start: 10-16-2023 End: 10-16-2023 ambulatory TORI WARCHOL Not Available Start: 07-17-2023 End: 07-17-2023 ambulatory TORI WARCHOL Not Available Start: 07-13-2023 End: 07-13-2023 ambulatory Tony Charles Lause Facility:[facility] Start: 07-13-2023 End: 07-13-2023 ambulatory MD Mo Coleman Work Phone: [facility] Work Phone: Start: 07-13-2023 End: 07-13-2023 Patient encounter procedure MD Mo Coleman Work Phone: [facility] Start: 07-13-2023 End: 07-13-2023 ambulatory TONY GR Not Available Start: 06-02-2023 Refill Tori Martinez [employer]SEM[employer] Work Phone: [facility] Comment on above: Attention deficit hy peractivity disorder (ADHD), combined type ([facility]) Start: 04-16-2023 End: 04-16-2023 ambulatory TORI MARTINEZ Not Available Start: 07-04-2022 End: 07-14-2022 ambulatory ÁNGEL SINHA Facility:[facility] Start: 07-01-2022 End: 07-01-2022 ambulatory ÁNGEL SINHA Facility:[facility] Start: 06-23-2022 End: 06-25-2022 Evaluation and management of inpatient MOSES MOULTON Facility:[facility] Start: 06-07-2022 End: 06-08-[address] DOCTOR MACK Facility:[facility] Start: 05-30-2022 End: 05-30-[address] ZEN BREWER . Facility:[facility] Start: 04-16-2022 End: 04-17-[address] LACY AVILES . Facility:[facility] Start: 04-04-2022 End: 04-04-[address] DEANNA LINN Facility:[facility] Start: 03-26-2022 End: 03-27-[address] ZEN BREWER . Facility:[facility] Start: 02-08-2022 End: 02-09-[address] ZEN BREWER . Facility:[facility] Start: 01-25-2022 End: 01-26-[address] ZEN BREWER . Facility:[facility] Start: 01-20-2022 Encounter for gynecological examination (general) (routine) without abnormal findings DR ZEN BREWER . [facility] Start: 01-17-2022 End: 01-17-[address] ZEN BREWER . Facility:[facility] Start: 01-17-2022 End: 01-17-2022 Encounter for gynecological examination (general) (routine) without abnormal findings DR ZEN BREWER . Facility:[facility] Start: 01-04-2022 End: 01-05-2022 ambulatory ÁNGEL SINHA Facility:[facility] Start: 12-14-2021 End: 12-15-[address] ZEN BREWER . Facility:[facility] Start: 11-26-2021 End: 11-27-2021 ambulatory ÁNGEL SINHA Facility:[facility] Start: 11-24-2018 End: 11-24-2018 Patient encounter procedure MODE R [facility] Start: 11-10-2018 End: 11-15-2018 Patient encounter procedure [facility] Ruth [facility] Procedures Date Procedure Procedure Detail Performing Clinician Start: 07-13-2023 Respiratory Panel (PCR) MD Mo Coleman Work Phone: Start: 06-24-2022 Delivery of Products of Conception, External Approach DR ZEN BREWER . Start: 06-23-2022 Drainage of Amniotic Fluid, Therapeutic from Products of Conception, Via Natural or Artificial Opening DR ZEN BREWER . Start: 06-23-2022 Introduction of Horm one into Female Reproductive, Via Natural or Artificial Opening DR ZEN BREWER . Start: 06-23-2022 Introduction of Othe r Hormone into Peripheral Vein, Percutaneous Approach DR ZEN BREWER . Start: 11-24-2018 Level iv surg pathol ogy gross&microscopic exam MODE RENEE Start: 11-24-2018 DISCHARGE PATIENT NORMA RENEE Start: 11-24-2018 BEDREST MODE ESPINO Start: 11-24-2018 Continuous pulse oximetry MODE RENEE Start: 11-24-2018 ENCOURAGE DEEP BREAT MARIANNA AND COUGHING MODE RENEE Start: 11-24-2018 NURSING COMMUNICATION Jimi RENEE Start: 11-24-2018 Urine test visual color cmprsn meths MODE RENEE Start: 11-24-2018 INITIATE OXYGEN THER APY PROTOCOL MODE RENEE Start: 11-24-2018 NOTIFY PHYSICIAN (SPECIFY) MODE RENEE Start: 11-24-2018 VITAL SIGNS MODE ESPINO Start: 11-10-2018 Ecg routine ecg w/le ast 12 lds w/i&r MODE RENEE Start: 11-10-2018 EKG REPORT MODE ESPINO Start: 11-10-2018 Basic metabolic pane l calcium total MODE RENEE Start: 11-10-2018 Blood count complete auto&auto difrntl wbc MODE RENEE Plan of Treatment Date Care Activity Detail Author Start: 10-25-2023 Influenza vaccination Influenza Vacc ine (#1) [facility] Comment on above: Postponed from 12/26 (Patient Refused) Start: 07-17-2023 End: 07-17-2023 Patient encounter procedure 07/17/2023 8:00 AM EDT Office Visit [facility] [address] [place] [id number] Tori Martinez [employer]SEM[employer] [address] [place] [address] [facility] Immunizations Immunization Date Immunization Notes Care Provider Fa cility 05-05-2015 tetanus toxoid, redu catherine diphtheria toxoid, and acellular pertussis vaccine, adsorbed Tori Warchol [employer]SEM[employer]ER Work Phone: [facility] 02-14-2009 influenza, seasonal, injectable Tori Warchol [employer] ASSEM[employer]ER Work Phone: [facility] 02-14-2009 influenza virus vacc ine, unspecified formulation Tori Warchol [employer]ER Work Phone: [facility] 12-12-2005 hepatitis A vaccine, unspecified formulation Tori Warchol [employer] ASSEM[employer]ER Work Phone: [facility] 12-12-2005 tetanus toxoid, redu catherine diphtheria toxoid, and acellular pertussis vaccine, adsorbed Tori Warchol MA[employer] ASSEM[employer]ER Work Phone: [facility] 11-19-1998 diphtheria, tetanus toxoids and acellular pertussis vaccine, unspecified formulation Tori Warchol MAIN [employer] ASSEM[employer]ER Work Phone: [facility] 11-19-1998 measles, mumps and rubella virus vaccine Tori Warchol MAIN [employer] ASSEM[employer]ER Work Phone: [facility] 11-19-1998 trivalent poliovirus vaccine, live, oral Tori Warchol MA[employer] ASSEM[employer]ER Work Phone: [facility] 09-14-1995 diphtheria, tetanus toxoids and acellular pertussis vaccine, unspecified formulation Tori Warchol MA[employer] ASSEM[employer]ER Work Phone: [facility] 09-14-1995 haemophilus influenz ae type b vaccine, conjugate unspecified formulation Tori Warchol [employer]IN LINE ASSEM[employer]ER Work Phone: [facility] 11-20-1994 DTP-Haemophilus influenzae type b conjugate vaccine Tori Warchol MAIN LINE ASSEM[employer]ER Work Phone: [facility] 11-20-1994 hepatitis B vaccine, pediatric or pediatric/adolescent dosage Tori Warchol MAIN [employer] ASSEM[employer]ER Work Phone: [facility] 11-20-1994 measles, mumps and rubella virus vaccine Tori Warchol MAIN LINE ASSEM[employer]ER Work Phone: [facility] 11-20-1994 trivalent poliovirus vaccine, live, oral Tori Warchol MAIN [employer] ASSEM[employer]ER Work Phone: [facility] 09-18-1994 DTP-Haemophilus influenzae type b conjugate vaccine Tori Warchol MAIN [employer] ASSEM[employer]ER Work Phone: [facility] 09-18-1994 hepatitis B vaccine, pediatric or pediatric/adolescent dosage Tori Warchol MAIN LINE ASSEM[employer]ER Work Phone: [facility] 09-18-1994 trivalent poliovirus vaccine, live, oral Tori Warchol MAIN [employer] ASSEM[employer]ER Work Phone: [facility] 1993 diphtheria, tetanus toxoids and pertussis vaccine Tori Warchol MAIN LINE ASSEM[employer]ER Work Phone: [facility] 1993 haemophilus influenz ae type b vaccine, conjugate unspecified formulation Tori Warchol MAIN LINE ASSEM[employer]ER Work Phone: [facility] 1993 hepatitis B vaccine, pediatric or pediatric/adolescent dosage Tori Warchol MAIN LINE ASSEMBLER Work Phone: [facility] 1993 trivalent poliovirus vaccine, live, oral Tori Warchol [employer]IN [employer] ASSEM[employer]ER Work Phone: [facility] Payers Date Payer Category Payer Self-pay [id number] 2022 Unknown BCBS BCBS xxxxxx [id number] 2022-Present [phone] [address] [place] [address] [id number] 2017 Private Health Insurance [id number] 1993 Unknown [id number] [id number] 76 1993 Unknown [id number] 2.16.840.1.421245.3.579.2.1 76 1993 Unknown [id number] 2.16.840.1.178579.3.579.2.5 93 1993 Unknown [id number] 2.16.840.1.183009.3.579.2.5 93 1993 Unknown [id number] 2.16.840.1.705560.3.579.2.5 93 1993 Unknown [id number] 2.16.840.1.967108.3.579.2.5 93 1993 Unknown [id number] 2.16.840.1.622732.3.579.2.5 93 1993 Unknown [id number] 2.16.840.1.454734.3.579.2.5 93 1993 Unknown [id number] 2.16.840.1.673144.3.579.2.5 93 1993 Unknown [id number] 2.16.840.1.838788.3.579.2.5 93 1993 Unknown [id number] 2.16.840.1.009097.3.579.2.5 93 1993 Unknown [id number] 2.16.840.1.539387.3.579.2.5 93 1993 Unknown [id number] 2.16.840.1.505608.3.579.2.5 93 1993 Unknown [id number] 2.16.840.1.041357.3.579.2.5 93 1993 Unknown [id number] 2.16.840.1.702899.3.579.2.5 93 1993 Unknown [id number] 2.16.840.1.659067.3.579.2.5 93 1993 Unknown [id number] 2.16.840.1.488900.3.579.2.1 259 1993 Unknown [id number] 2.16.840.1.772142.3.579.2.1 259 1993 Unknown [id number] 2.16.840.1.058262.3.579.2.1 259 1993 Unknown [id number] 2.16.840.1.206103.3.579.2.1 259 1959 Self-pay [id number] 1959 Unknown [id number] 1959 Unknown [id number] 1959 Unknown [id number] Unknown [id number] 2.16.840.1.413595.3.579.2.5 93 Unknown HCAP/HFA/FAP Active [id number] Unknown [id number] 2.16.840.1.458994.3.579.2.5 31 Social History Date Type Detail Facility Start: 08-27-2016 End: 09-25-2022 Tobacco smoking status IAIS Never smoked tobacco [facility] Health care Start: 09-25-2022 Tobacco use and exposure Smoke less tobacco non-user [facility] Start: 04-16-2023 Alcohol intake Current drinke r of alcohol (finding) [facility] Start: 01-15-2023 End: 04-16-2023 Alcohol intake [facility] Start: 01-15-2023 End: 04-16-2023 Alcohol Use Disorder Identification Test - Consumption [AUDIT-C] [facility] How often to you hav e a drink containing alcohol? Monthly or less [facility] How many standard dr inks containing alcohol do you have on a typical day? Patient does not drink [facility] How often do you hav e 6 or more drinks on 1 occasion? Never [facility] Start: 1995 Sex Assigned At Female [facility] Start: 09-24-2022 Gender identity Identifies as female gender (finding) [facility] Telephone encounter Note 06-04-2023 Telephone Encounter - Tori Martinez NP - 06/04/2023 11:20 AM EST Note Date & Type Note Facility 06-04-2023 Telephone encount er Note Sent [facility] Note 06-04-2023 Telephone Encounter - Tori Martinez NP - 06/04/2023 11:20 AM ESTTelephone Encounter - Marysol Kraft - 06/02/2023 5:03 PM EST Note Date & Type Note Facility 06-04-2023 Miscellaneous Notes Formattin g of this note might be different from the original. Sent Patient requesting refill/[place] documented in this encounter [facility] Telephone encounter Note 06-02-2023 Telephone Encounter - Marysol Kraft - 06/02/2023 5:03 PM EST Note Date & Type Note Facility 06-02-2023 Telephone encount er Note Patient requesting refill/[place] [facility] Evaluation note Note Date & Type Note Facility Evaluation note Diagnosis Attention deficit hyperactivity disorder (ADHD), combined type (CMS/HCC) documented in this encounter [facility] Evaluation note Note Date & Type Note Facility Evaluation note No assessment information availa [facility] Work Phone: Summary Purpose Family History No Family History Records FoundNo Family History Records FoundNo Family History Records FoundNo Family History Records FoundNo Family History Records Found Advance Directives No Advanced Directives Records Found Advance Directive Response Recorded Date/ Time Advance Directives No July 12 12:15pm Chief Complaint and Reason for Visit Chief Complaint r06.81 r05.9 Additional Source Comments INFORMATION SOURCE (unrecogn ized section and content) DATE CREATED AUTHOR 11/18/2018 [place] DATE CREATED AUTHOR AUTHOR'S ORGANIZ ATION 11/26/2018 [facility] DATE CREATED AUTHOR AUTHOR'S ORGANIZ ATION 09/09/2022 [facility] DATE CREATED AUTHOR AUTHOR'S ORGANIZ ATION 08/27/2023 [facility] DATE CREATED AUTHOR AUTHOR'S ORGANIZ ATION 10/17/2023 [facility] EPIC Reason for Visit (unrecogniz ed section and content) Reason Onset Date Comments Med Refill 06/02/2023 Care Teams (unrecognized sec tion and content) [employer] Relationship Specialty Start Date End Date Mo Coleman MD [address] [place] [address] PCP - General Family Medicine 09/24/22 Tori Martinez NP [address] [place] [address] Nurse Practitioner Family Medicine 09/24/22 Tony Gr NP [address] [place] [address] Nurse Practitioner Pulmonary Disease 04/14/23 Team Status: Active Member Role Status Dates Mo Coleman MD Primary Care Provider Active Team Status: Inactive Member Role Status Dates Mo Coleman MD Primary Care Provider Active S tart: July 13, 2023 End: July 13, 2023 Tony Gr NP-C Attending Provider Active Start: July 13, 2023 End: July 13, 2023 Goals (unrecognized section and content) Goals may be documented in a n alternate section FOR RECORDS PERTAINING TO PATIENTS WHO ARE OR HAVE BEEN ENROLLED IN A CHEMICAL DEPENDENCY/SUBSTANCEABUSE PROGRAM, SOME INFORMATION MAY BE OMITTED. This clinical summary was aggregated from multiple sources. Caution should be exercised in using it in the provision of clinical care. This summary normalizes information from multiple sources, and as a consequence, information in this document may materially change the coding, format and clinical context of patient data. In addition, data may be omitted in some cases. CLINICAL DECISIONS SHOULD BE BASED ON THE PRIMARY CLINICAL RECORDS. [facility], [facility]. provides no warranty or guarantee of the accuracy or completeness of information in this document.
[2023-12-12 10:45] LABS: Basophils Absolute Auto 0.1 10^3/uL (0.0-0.1); Basophils Percent Auto 0.6 % (0.2-2.0); Eosinophils Absolute Auto 0.1 10^3/uL (0.0-0.7); Eosinophils Percent Auto 0.8 % (0.9-7.0); Hematocrit 35.7 % (36.0-48.0); Hemoglobin 12.5 g/dL (12.0-16.0); Immature Granulocytes Abs Auto 0.07 10^3/uL (0.00-0.03); Immature Granulocytes Pct Auto 0.8 % (0.0-0.5); Lymphocytes Absolute Auto 1.5 10^3/uL (1.2-3.8); Lymphocytes Percent Auto 17.7 % (20.5-60.0); Mean Corpuscular Volume 88.6 fL (81.0-99.0); Mean Platelet Volume 11.1 fL (9.5-13.5); Monocytes Absolute Auto 0.7 10^3/uL (0.3-0.8); Neutrophils Percent Auto 72.1 % (43.0-75.0); Platelet Count 168 10^3/uL (150-450); Red Blood Count 4.03 10^6/uL (4.20-5.40); Red Cell Distribution Width 12.3 % (11.0-15.0); White Blood Count 8.4 10^3/uL (4.0-11.0)
[2023-12-12 11:10] LABS: Estimated Average Glucose 94 mg/dL; Glycohemoglobin A1C 4.9 % (4.5-6.2)
[2023-12-13 08:08] LABS: Rubella Antibodies, IgG 5.89 index (Immune >0.99)
[2023-12-13 09:07] LABS: Rapid Plasma Reagin, Quant Non Reactive titer (NonRea<1:1)
[2023-12-13 10:08] LABS: HIV Ab/p24 Ag Screen Non Reactive (Non Reactive)
[2023-12-13 11:09] LABS: HBsAg Screen Negative (Negative); HCV Ab Non Reactive (Non Reactive)
== END 2023-12-12 09:17 | disposition home or self-care (01) ==
LOC: LAB 09:19
PROVIDERS: Visit Provider Obstetrics & Gynecology
DX: Z34.80 Encounter for supervision of other normal pregnancy, unspecified trimester (principal); N92.6 Irregular menstruation, unspecified
CPT/HCPCS: 36415; 83036; 85025; 86592; 86762; 86803; 86850; 86900; 86901; 87086; 87340; 87389

== ENCOUNTER 2023-12-12 09:23 | Outpatient (OUT) | payer BC, MEDICAID, SELFPAY ==
--- OUTSIDE RECORDS SUMMARY | 2023-12-12 09:26 | XMS_ITS | CCD ---
Author Organization [facility] Care Team Providers Care Disbursing Officer Name Role Phone MILTON RENEEISH R Referring [...] ÁNGEL Attending Unavailable KIEPERT, ÁNGEL Admitting Unavailable [place], DR DEANNA Lance Consulting Unavailable PAY ., [...] TRACI ., DR HOUSE Consulting Unavailable KIEPERT, ÁNEGL Primary Care Unavailable TRACI ., DR HOUSE [...] ., DR ZALDIVAR Admitting Unavailabl e Mo Coleamn MD Primary Care Provider [phone] Kylee GUMMED TAPE PRESS OPERATOR, Tori Unavailable Tony Gr NP R Unavailable [phone] MD Mo Coleman Primary Care Provider HEATHER Gr Attending Provider Tony Gr Attending Unavailable Maile, Tony Charles Admitting Unavailable Mo Coleman Primary Care Unavailable TONY GR Attending Unavailable WARCHOL, TORI Attending Unavailable WARCHOL, TORI Attending Unavailable WARCHOL, TOIR Attending Unavailable Allergies Allergy Classification Reported Allergen(s) Allergy Type Date of Onset Reaction(s) Facility (1 source) Cefuroxime Drug Allergy 04-04-20 22 [facility] (2 sources) Ciprofloxacin Drug Allergy 04-03-20 16 [facility] (2 sources) Doxycycline Drug Allergy 05-20-19 21 vomiting [facility] (1 source) Flupenthixol Drug Allergy 04-04-20 22 [facility] (2 sources) Cefuroxime Drug Allergy 05-20-19 21 rash [facility] (1 source) Ciprofloxacin Drug Allergy 09-02-19 23 Shortness of breath [facility] (1 source) Ciprofloxacin Drug Allergy 09-02-19 23 Shortness of breath [facility] (1 source) cloNIDine Drug Allergy 03-14-20 21 [facility] (1 source) cloNIDine Drug Allergy 09-02-19 23 [facility] (1 source) Doxycycline Drug Allergy 09-02-19 23 [facility] (1 source) Gluten Propensity to adverse reactions 11-11-19 19 [facility] (1 source) Lactose (non-medical use) Allergy to substance 09-02-19 23 [facility] (1 source) Lactose (non-medical use) Drug Intolerance 11-11-19 19 [facility] (1 source) Octacosanol Drug Intolerance 11-11-19 19 [facility] (1 source) Other Allergy to substance 11-11-19 19 [facility] (1 source) Silver Allergy to substance 09-02-19 23 [facility] (1 source) Wound Dressing Adhesive Drug Allergy 09-02-19 23 [facility] (1 source) Cefuroxime Drug Allergy 05-20-19 21 [facility] (1 source) Ciprofloxacin Drug Allergy 05-20-19 21 [facility] (1 source) Doxycycline Drug Allergy 05-20-19 21 [facility] Medications Current Medications Medication Drug Class(es) Dates Sig (Normalized) Sig (Original) [id number] 200 actuat albuterol 0.09 mg/actuat metered dose [...] Not detected Normal Not Detecte T he [facility] Comment on above: Result Comment: This is a duplicate RP2.1 COVID (PCR) result to be used for statistical tracking purpose only. PERFORMED BY: [facility] [address] [place] [address] PATHOLOGIST FUEL HOUSE ATTENDANT CATY NEELY M.D. Performed By: #### R RODGER PANEL UPP., BIOFIRECOVNOTDE #### [facility] [address] COVID-19 Detected/Not Detect edOrdered By: Tony Gr on 07-13-2023 SARS-CoV-2 (COVID-19) RNA JUAN+non-probe Ql (Nph) Not detected Not Detecte [facility] Comment on above: This is a [...] Influenza A H3 Blank Space PERFORMED BY: [facility] [address] [place] [address] PATHOLOGIST FUEL HOUSE ATTENDANT CATY Navarro [facility] Comment on above: Performed By: #### R RODGER PANEL UPP., BIOFIRECOVNOTDE #### [facility] [address] Respiratory pathogens DNA an d RNA panel - Nasopharynx by JUAN with non-probe detectionOrdered By: Tony Gr on 07-13-2023 Respiratory pathogens DNA and RNA panel JUAN+non-probe (Nph) [facility] CBC AUTO DIFFon 06-25-2022 BASO # 0.0 103/ul Normal 0.0-0.1 [facility] Comment on above: Performed By: #### C BC #### [facility] [address] [place] [address] Dr. Garland Kohli Basophils/100 WBC (Bld) 0.4 % Normal 0.2-2.0 [facility] Comment on above: Performed By: #### C BC #### [facility] [address] [place] [address] Dr. Garland Kohli EO # 0.1 103/ul Normal 0.0-0.7 [facility] Comment on above: Performed By: #### C BC #### [facility] [address] [address] [address] Garland Kohli Eosinophils/100 WBC (Bld) 0.9 % Normal 0.9-7.0 [facility] Comment on above: Performed By: #### C BC #### [facility] [address] [place] [address] Dr. Garland Kohli Erythrocyte distribution width (RBC) [Ratio] 12.4 % Normal 11.0-15.0 [facility] Comment on above: Performed By: #### C BC #### [facility] [address] [place] [address] Dr. Garland Kohli Hematocrit (Bld) [Volume fraction] 31.4 % Critically low 36.0-48.0 [facility] Comment on above: Performed By: #### C BC #### [facility] [address] [place] [address] Dr. Garland Kohli Hemoglobin (Bld) [Mass/Vol] 10.4 g/dL Critically low 12.0-16.0 [facility] Comment on above: Performed By: #### C BC #### [facility] [address] [place] [address] Dr. Garland Kohli IG # 0.04 10e3/ul Critically high 0.00-0.03 [facility] Comment on above: Performed By: #### C BC #### [facility] [address] [place] [address] Dr. Garland Kohli IG % 0.4 % Normal 0.0-0.5 [facility] Comment on above: Performed By: #### C BC #### [facility] [address] [place] [address] Dr. Garland Kohli LYMPH # 2.0 103/ul Normal 1.2-3.8 [facility] Comment on above: Performed By: #### C BC #### [facility] [address] [place] [address] Dr. Garland Kohli Lymphocytes/100 WBC (Bld) 22.1 % Normal 20.5-60.0 [facility] Comment on above: Performed By: #### C BC #### [facility] [address] [place] [address] Dr. Garland Kohli MANUAL DIFF REQ NO Normal [facility] Comment on above: Performed By: #### C BC #### [facility] [address] [place] [address] Dr. Garland Kohli MCH (RBC) [Entitic mass] 30.1 pg Normal 26.7-34.0 [facility] Comment on above: Performed By: #### C BC #### [facility] [address] [place] [address] Dr. Garland Kohli MCHC (RBC) [Mass/Vol] 33.1 g/dL Normal 29.9-35.2 [facility] Comment on above: Performed By: #### C BC #### [facility] [address] [address] [address] Garland Kohli MCV (RBC) [Entitic vol] 91.0 fL Normal 81.0-99.0 [facility] Comment on above: Performed By: #### C BC #### [facility] [address] [address] [address] Garland Kohli MONO # 0.8 103/ul Normal 0.3-0.8 [facility] Comment on above: Performed By: #### C BC #### [facility] [address] [address] [address] Garland Kohli Monocytes/100 WBC (Bld) 8.8 % Normal 1.7-12.0 [facility] Comment on above: Performed By: #### C BC #### [facility] [address] [place] [address] Dr. Garland Kohli NEUT # 6.0 103/ul Normal 1.4-6.5 [facility] Comment on above: Performed By: #### C BC #### [facility] [address] [place] [address] Dr. Garland Kohli Neutrophils/100 WBC (Bld) 67.4 % Normal 43.0-75.0 [facility] Comment on above: Performed By: #### C BC #### [facility] [address] [address] [address] Garland Kohli Platelet mean volume (Bld) [Entitic vol] 12.0 fL Normal 9.5-13.5 [facility] Comment on above: Performed By: #### C BC #### [facility] [address] [address] [address] Garland Kohli PLT 151 103/ul Normal 150-450 [facility] Comment on above: Performed By: #### C BC #### [facility] [address] [address] [address] Garland Kohli RBC 3.45 106/ul Critically low 4.20-5.40 [facility] Comment on above: Performed By: #### C BC #### [facility] [address] [address] [address] Garland Kohli WBC 8.9 103/ul Normal 4.0-11.0 [facility] Comment on above: Performed By: #### C BC #### [facility] [address] [place] [address] Dr. Garland Kohli CBC AUTO DIFFon 06-23-2022 BASO # 0.0 103/ul Normal 0.0-0.1 [facility] Comment on above: Performed By: #### C BC #### [facility] [address] [place] [address] Dr. Garland Kohli Basophils/100 WBC (Bld) 0.4 % Normal 0.2-2.0 [facility] Comment on above: Performed By: #### C BC #### [facility] [address] [place] [address] Dr. Garland Kohli EO # 0.1 103/ul Normal 0.0-0.7 [facility] Comment on above: Performed By: #### C BC #### [facility] [address] [place] [address] Dr. Garland Kohli Eosinophils/100 WBC (Bld) 0.8 % Critically low 0.9-7.0 [facility] Comment on above: Performed By: #### C BC #### [facility] [address] [place] [address] Dr. Garland Kohli Erythrocyte distribution width (RBC) [Ratio] 12.4 % Normal 11.0-15.0 [facility] Comment on above: Performed By: #### C BC #### [facility] [address] [place] [address] Dr. Garland Kohli Hematocrit (Bld) [Volume fraction] 34.5 % Critically low 36.0-48.0 [facility] Comment on above: Performed By: #### C BC #### [facility] [address] [place] [address] Dr. Garland Kohli Hemoglobin (Bld) [Mass/Vol] 11.6 g/dL Critically low 12.0-16.0 [facility] Comment on above: Performed By: #### C BC #### [facility] [address] [address] [address] Garland Kohli IG # 0.04 10e3/ul Critically high 0.00-0.03 [facility] Comment on above: Performed By: #### C BC #### [facility] [address] [address] [address] Garland Kohli IG % 0.5 % Normal 0.0-0.5 [facility] Comment on above: Performed By: #### C BC #### [facility] [address] [place] [address] Dr. Garland Kohli LYMPH # 1.3 103/ul Normal 1.2-3.8 [facility] Comment on above: Performed By: #### C BC #### [facility] [address] [place] [address] Dr. Garland Kohli Lymphocytes/100 WBC (Bld) 17.6 % Critically low 20.5-60.0 [facility] Comment on above: Performed By: #### C BC #### [facility] [address] [place] [address] Dr. Garland Kohli MANUAL DIFF REQ NO Normal [facility] Comment on above: Performed By: #### C BC #### [facility] [address] [place] [address] Dr. Garland Kohli MCH (RBC) [Entitic mass] 29.6 pg Normal 26.7-34.0 [facility] Comment on above: Performed By: #### C BC #### [facility] [address] [place] [address] Dr. Garland Kohli MCHC (RBC) [Mass/Vol] 33.6 g/dL Normal 29.9-35.2 [facility] Comment on above: Performed By: #### C BC #### [facility] [address] [place] [address] Dr. Garland Kohli MCV (RBC) [Entitic vol] 88.0 fL Normal 81.0-99.0 [facility] Comment on above: Performed By: #### C BC #### [facility] [address] [place] [address] Dr. Garland Kohli MONO # 0.9 103/ul Critically high 0.3-0.8 [facility] Comment on above: Performed By: #### C BC #### [facility] [address] [address] [address] Garland Kohli Monocytes/100 WBC (Bld) 11.7 % Normal 1.7-12.0 [facility] Comment on above: Performed By: #### C BC #### [facility] [address] [place] [address] Dr. Garland Kohli NEUT # 5.1 103/ul Normal 1.4-6.5 [facility] Comment on above: Performed By: #### C BC #### [facility] [address] [place] [address] Dr. Garland Kohli Neutrophils/100 WBC (Bld) 69.0 % Normal 43.0-75.0 [facility] Comment on above: Performed By: #### C BC #### [facility] [address] [place] [address] Dr. Garland Kohli Platelet mean volume (Bld) [Entitic vol] 12.1 fL Normal 9.5-13.5 [facility] Comment on above: Performed By: #### C BC #### [facility] [address] [place] [address] Dr. Garland Kohli PLT 193 103/ul Normal 150-450 [facility] Comment on above: Performed By: #### C BC #### [facility] [address] [place] [address] Dr. Garland Kohli RBC 3.92 106/ul Critically low 4.20-5.40 [facility] Comment on above: Performed By: #### C BC #### [facility] [address] [place] [address] Dr. Graland Kohli WBC 7.4 103/ul Normal 4.0-11.0 [facility] Comment on above: Performed By: #### C BC #### [facility] [address] [place] [address] Dr. Garland Kohli DRUG SCREEN RAPID (URINE)on 06-23-2022 AMP Negative Normal NEGATIVE [facility] Comment on above: Performed By: #### D RUGRPD #### [facility] [address] [place] [address] Dr. Garland Kohli BAR Negative Normal NEGATIVE [facility] Comment on above: Performed By: #### D RUGRPD #### [facility] [address] [place] [address] Dr. Garland Kohli BUP Negative Normal NEGATIVE [facility] Comment on above: Performed By: #### D RUGRPD #### [facility] [address] [place] [address] Dr. Garland Kohli BZO Negative Normal NEGATIVE [facility] Comment on above: Performed By: #### D RUGRPD #### [facility] [address] [place] [address] Dr. Garland Kohli JUANI Negative Normal NEGATIVE [facility] Comment on above: Performed By: #### D RUGRPD #### [facility] [address] [place] [address] Dr. Garland Kohli CUT-OFFS SEE BELOW Normal [facility] Comment on above: Result Comment: AMP (Amphetamine): 500ng/mL, BAR (Barbituates): 200 ng/mL, BZO (Benzodiazepines): 150 ng/mL, BUP (Buprenorphine): 10 ng/mL, JUANI (Cocaine): 150 ng/mL, mAMP (Methamphetamine): 500 ng/mL, MTD (Methadone): 200 ng/mL, OPI (Opiates): 100 ng/mL, OXY (Oxycodone): 100 ng/mL, PCP (Phencyclidine): 25 ng/mL, PPX (Propoxyphene): 300 ng/mL, THC (Cannabinoids): 50 ng/mL, TCA (Trycyclic Antidepressants): 300 ng/mL Performed By: #### D RUGRPD #### [facility] [address] [place] [address] Dr. Garland Kohli DRUG CUT HEADER DRUG CLASS TEST SYSTEM CUT-OFF CONCENTRATIONS ARE FOLLOWS: Normal [facility] Comment on above: Performed By: #### D RUGRPD #### [facility] [address] [address] [address] Garland Kohli mAMP Negative Normal NEGATIVE [facility] Comment on above: Performed By: #### D RUGRPD #### [facility] [address] [address] [address] Garland Kohli MTD Negative Normal NEGATIVE [facility] Comment on above: Performed By: #### D RUGRPD #### [facility] [address] [place] [address] Dr. Garland Kohli OPI Negative Normal NEGATIVE [facility] Comment on above: Performed By: #### D RUGRPD #### [facility] [address] [place] [address] Dr. Garland Kohli OXY Negative Normal NEGATIVE [facility] Comment on above: Performed By: #### D RUGRPD #### [facility] [address] [place] [address] Dr. Garland Kohli PCP Negative Normal NEGATIVE [facility] Comment on above: Performed By: #### D RUGRPD #### [facility] [address] [place] [address] Dr. Garland Kohli PPX Negative Normal NEGATIVE [facility] Comment on above: Performed By: #### D RUGRPD #### [facility] [address] [place] [address] Dr. Garland oKhli TCA Negative Normal NEGATIVE [facility] Comment on above: Performed By: #### D RUGRPD #### [facility] [address] [place] [address] Dr. Garland Kohli THC Negative Normal NEGATIVE [facility] Comment on above: Performed By: #### D RUGRPD #### [facility] [address] [place] [address] Dr. Garland Kohli TYPE AND SCREENon 06-23-2022 TYPE AND SCREEN Negative Normal [facility] Comment on above: Performed By: #### T NS #### [facility] [address] [place] [address] Dr. Garland Kohli FREE T4on 06-07-2022 Free T4 [Mass/Vol] 0.76 ng/dL Normal 0.76-1.46 [facility] Comment on above: Performed By: #### C BC #### [facility] [address] [place] [address] Dr. Garland Kohli TSHon 06-07-2022 TSH 1.393 uIU/mL Normal 0.358-3.740 [facility] Comment on above: Performed By: #### T SH #### [facility] [address] [place] [address] Dr. Garland Kohli GROUP B STREP CULTUREon S. agalactiae Ag Ql (Unsp spec) Culture Observations: NEGATIVE FOR GROUP B STREPTOCOCCUS. Normal [facility] Comment on above: Performed By: #### C BC #### [facility] [address] [place] [address] Dr. Garland Kohli GTT 3 HR PREGon 04-16-2022 Glucose [Mass/Vol] 87 mg/dL Normal 74-106 [facility] Comment on above: Performed By: #### G TT3P #### [facility] [address] [place] [address] Dr. Garland Kohli Glucose [Mass/Vol] 148 mg/dL Normal [facility] Comment on above: Performed By: #### G TT3P #### [facility] [address] [place] [address] Dr. Garland Kohli Glucose [Mass/Vol] 128 mg/dL Normal [facility] Comment on above: Performed By: #### G TT3P #### [facility] [address] [place] [address] Dr. Garland Kohli Glucose [Mass/Vol] 105 mg/dL Normal [facility] Comment on above: Performed By: #### G TT3P #### [facility] [address] [place] [address] Dr. Garland Kohli CBC AUTO DIFFon 04-04-2022 BASO # 0.0 103/ul Normal 0.0-0.1 [facility] Comment on above: Performed By: #### G TT3P #### [facility] [address] [address] [address] Garland Kohli Basophils/100 WBC (Bld) 0.2 % Normal 0.2-2.0 [facility] Comment on above: Performed By: #### G TT3P #### [facility] [address] [place] [address] Dr. Garland Kohli EO # 0.0 103/ul Normal 0.0-0.7 [facility] Comment on above: Performed By: #### G TT3P #### [facility] [address] [place] [address] Dr. Garland Kohli Eosinophils/100 WBC (Bld) 0.4 % Critically low 0.9-7.0 [facility] Comment on above: Performed By: #### G TT3P #### [facility] [address] [place] [address] Dr. Garland Kohli Erythrocyte distribution width (RBC) [Ratio] 12.9 % Normal 11.0-15.0 [facility] Comment on above: Performed By: #### G TT3P #### [facility] [address] [place] [address] Dr. Garland Kohli Hematocrit (Bld) [Volume fraction] 32.5 % Critically low 36.0-48.0 [facility] Comment on above: Performed By: #### G TT3P #### [facility] [address] [place] [address] Dr. Garland Kohli Hemoglobin (Bld) [Mass/Vol] 11.2 g/dL Critically low 12.0-16.0 [facility] Comment on above: Performed By: #### G TT3P #### [facility] [address] [place] [address] Dr. Garland Kohli IG # 0.07 10e3/ul Critically high 0.00-0.03 [facility] Comment on above: Performed By: #### G TT3P #### [facility] [address] [place] [address] Dr. Garland Kohli IG % 0.8 % Critically high 0.0-0.5 [facility] Comment on above: Performed By: #### G TT3P #### [facility] [address] [address] [address] Garland Kohli LYMPH # 0.9 103/ul Critically low 1.2-3.8 [facility] Comment on above: Performed By: #### G TT3P #### [facility] [address] [address] [address] Garland Kohli Lymphocytes/100 WBC (Bld) 10.4 % Critically low 20.5-60.0 [facility] Comment on above: Performed By: #### G TT3P #### [facility] [address] [address] [address] Garland Kohli MANUAL DIFF REQ NO Normal [facility] Comment on above: Performed By: #### G TT3P #### [facility] [address] [place] [address] Dr. Garland Kohli MCH (RBC) [Entitic mass] 31.4 pg Normal 26.7-34.0 [facility] Comment on above: Performed By: #### G TT3P #### [facility] [address] [place] [address] Dr. Garland Kohli MCHC (RBC) [Mass/Vol] 34.5 g/dL Normal 29.9-35.2 [facility] Comment on above: Performed By: #### G TT3P #### [facility] [address] [place] [address] Dr. Garland Kohli MCV (RBC) [Entitic vol] 91.0 fL Normal 81.0-99.0 [facility] Comment on above: Performed By: #### G TT3P #### [facility] [address] [place] [address] Dr. Garland Kohli MONO # 1.1 103/ul Critically high 0.3-0.8 [facility] Comment on above: Performed By: #### G TT3P #### [facility] [address] [address] [address] Garland Kohli Monocytes/100 WBC (Bld) 12.5 % Critically high 1.7-12.0 [facility] Comment on above: Performed By: #### G TT3P #### [facility] [address] [place] [address] Dr. Garland Kohli NEUT # 6.3 103/ul Normal 1.4-6.5 [facility] Comment on above: Performed By: #### G TT3P #### [facility] [address] [address] [address] Garland Kohli Neutrophils/100 WBC (Bld) 75.7 % Critically high 43.0-75.0 [facility] Comment on above: Performed By: #### G TT3P #### [facility] [address] [place] [address] Dr. Garland Kohli Platelet mean volume (Bld) [Entitic vol] 10.5 fL Normal 9.5-13.5 [facility] Comment on above: Performed By: #### G TT3P #### [facility] [address] [place] [address] Dr. Garland Kohli PLT 181 103/ul Normal 150-450 [facility] Comment on above: Performed By: #### G TT3P #### [facility] [address] [place] [address] Dr. Garland Kohli RBC 3.57 106/ul Critically low 4.20-5.40 [facility] Comment on above: Performed By: #### G TT3P #### [facility] [address] [place] [address] Dr. Garland Kohli WBC 8.4 103/ul Normal 4.0-11.0 [facility] Comment on above: Performed By: #### G TT3P #### [facility] [address] [place] [address] Dr. Garland Kohli CTA CHEST WO W [...] by: DEANNA LINN Date: 2022-04-04 15:25 Normal [facility] PROF CHEM 8 (BAS METB)on Anion gap [Moles/Vol] 13.2 mmol/L Normal [facility] Comment on above: Performed By: #### G TT3P #### [facility] [address] [place] [address] Dr. Garland Kohli Calcium [Mass/Vol] 8.5 mg/dL Normal 8.5-10.1 [facility] Comment on above: Performed By: #### G TT3P #### [facility] [address] [address] [address] Garland Kohli Chloride [Moles/Vol] 103 mmol/L Normal 98-107 [facility] Comment on above: Performed By: #### G TT3P #### [facility] [address] [place] [address] Dr. Garland Kohli CO2 [Moles/Vol] 23.4 mmol/L Normal 21.0-32.0 [facility] Comment on above: Performed By: #### G TT3P #### [facility] [address] [address] [address] Garland Kohli Creatinine [Mass/Vol] 0.43 mg/dL Critically low 0.55-1.02 [facility] Comment on above: Performed By: #### G TT3P #### [facility] [address] [address] [address] Garland Kohli EGFR-AF CZECH >60 Normal >=60 [facility] Comment on above: Performed By: #### G TT3P #### [facility] [address] [address] [address] Garland Kohli EGFR-NON AF CZECH >60 Normal >=60 [facility] Comment on above: Performed By: #### G TT3P #### [facility] [address] [address] [address] Garland Kohli Glucose [Mass/Vol] 108 mg/dL Critically high 74-106 [facility] Comment on above: Performed By: #### G TT3P #### [facility] [address] [address] [address] Garland Kohli Potassium [Moles/Vol] 3.6 mmol/L Normal 3.5-5.1 [facility] Comment on above: Performed By: #### G TT3P #### [facility] [address] [place] [address] Dr. Garland Kohli Sodium [Moles/Vol] 136 mmol/L Normal 136-145 [facility] Comment on above: Performed By: #### G TT3P #### [facility] [address] [place] [address] Dr. Garland Kohli Urea nitrogen [Mass/Vol] 5.0 mg/dL Critically low 7.0-18.0 [facility] Comment on above: Performed By: #### G TT3P #### [facility] [address] [place] [address] Dr. Garland Kohli Urea nitrogen/Creatinine [Mass ratio] 11.6 mg/mg Normal [facility] Comment on above: Performed By: #### G TT3P #### [facility] [address] [place] [address] Dr. Garland Kohli TROPONIN, HIGH SENSITIVITYon 04-04-2022 HSTROP 9.3 pg/mL Normal 4.0-51.3 [facility] Comment on above: Result Comment: CUT- OFF POINTS HAVE BEEN ESTABLISHED BASED ON THE FOURTH UNIVERSAL DEFINITIONS OF MYOCARDIAL INFARCTION. THE UPPER REFERENCE LIMIT (URL) OF TROPONIN, DEFINED THE 99TH PERCENTILE OF cTnI DISTRIBUTION IN A REFERENCE POPULATION, HAS BEEN CONFIRMED THE DECISION THRESHOLD FOR DE DIAGNOSIS. Performed By: #### G TT3P #### [facility] [address] [place], [place] [id number] Dr. Garland Kohli CBC AUTO DIFFon 03-26-2022 BASO # 0.0 103/ul Normal 0.0-0.1 [facility] Comment on above: Performed By: #### G TT3P #### [facility] [address] [place] [address] Dr. Garland Kohli Basophils/100 WBC (Bld) 0.2 % Normal 0.2-2.0 [facility] Comment on above: Performed By: #### G TT3P #### [facility] [address] [place] [address] Dr. Garland Kohli EO # 0.1 103/ul Normal 0.0-0.7 [facility] Comment on above: Performed By: #### G TT3P #### [facility] [address] [place] [address] Dr. Garland Kohli Eosinophils/100 WBC (Bld) 1.0 % Normal 0.9-7.0 [facility] Comment on above: Performed By: #### G TT3P #### [facility] [address] [place] [address] Dr. Garland Kohli Erythrocyte distribution width (RBC) [Ratio] 12.8 % Normal 11.0-15.0 [facility] Comment on above: Performed By: #### G TT3P #### [facility] [address] [place] [address] Dr. Garland Kohli Hematocrit (Bld) [Volume fraction] 36.2 % Normal 36.0-48.0 [facility] Comment on above: Performed By: #### G TT3P #### [facility] [address] [place] [address] Dr. Garland Kohli Hemoglobin (Bld) [Mass/Vol] 12.2 g/dL Normal 12.0-16.0 [facility] Comment on above: Performed By: #### G TT3P #### [facility] [address] [place] [address] Dr. Garland Kohli IG # 0.08 10e3/ul Critically high 0.00-0.03 [facility] Comment on above: Performed By: #### G TT3P #### [facility] [address] [address] [address] Garland Kohli IG % 0.9 % Critically high 0.0-0.5 [facility] Comment on above: Performed By: #### G TT3P #### [facility] [address] [address] [address] Garland Kohli LYMPH # 1.7 103/ul Normal 1.2-3.8 [facility] Comment on above: Performed By: #### G TT3P #### [facility] [address] [place] [address] Dr. Garland Kohli Lymphocytes/100 WBC (Bld) 17.8 % Critically low 20.5-60.0 [facility] Comment on above: Performed By: #### G TT3P #### [facility] [address] [place] [address] Dr. Garland Kohli MANUAL DIFF REQ NO Normal [facility] Comment on above: Performed By: #### G TT3P #### [facility] [address] [place] [address] Dr. Garland Kohli MCH (RBC) [Entitic mass] 30.7 pg Normal 26.7-34.0 [facility] Comment on above: Performed By: #### G TT3P #### [facility] [address] [place] [address] Dr. Garland Kohli MCHC (RBC) [Mass/Vol] 33.7 g/dL Normal 29.9-35.2 [facility] Comment on above: Performed By: #### G TT3P #### [facility] [address] [place] [address] Dr. Garland Kohli MCV (RBC) [Entitic vol] 91.2 fL Normal 81.0-99.0 [facility] Comment on above: Performed By: #### G TT3P #### [facility] [address] [place] [address] Dr. Garland Kohli MONO # 0.6 103/ul Normal 0.3-0.8 [facility] Comment on above: Performed By: #### G TT3P #### [facility] [address] [address] [address] Garland Kohli Monocytes/100 WBC (Bld) 6.0 % Normal 1.7-12.0 [facility] Comment on above: Performed By: #### G TT3P #### [facility] [address] [address] [address] Garland Kohli NEUT # 6.9 103/ul Critically high 1.4-6.5 [facility] Comment on above: Performed By: #### G TT3P #### [facility] [address] [place] [address] Dr. Garland Kohli Neutrophils/100 WBC (Bld) 74.1 % Normal 43.0-75.0 [facility] Comment on above: Performed By: #### G TT3P #### [facility] [address] [place] [address] Dr. Garland Kohli Platelet mean volume (Bld) [Entitic vol] 10.2 fL Normal 9.5-13.5 [facility] Comment on above: Performed By: #### G TT3P #### [facility] [address] [place] [address] Dr. Garland Kohli PLT 217 103/ul Normal 150-450 [facility] Comment on above: Performed By: #### G TT3P #### [facility] [address] [place] [address] Dr. Garland Kohli RBC 3.97 106/ul Critically low 4.20-5.40 [facility] Comment on above: Performed By: #### G TT3P #### [facility] [address] [place] [address] Dr. Garland Kohli WBC 9.3 103/ul Normal 4.0-11.0 [facility] Comment on above: Performed By: #### G TT3P #### [facility] [address] [place] [address] Dr. Garland Kohli GLUCOSE - 1HRon 03-26-2022 Glucose [Mass/Vol] 155 mg/dL Critically high 74-106 [facility] Comment on above: Performed By: #### C BC #### [facility] [address] [address] [address] Garland Kohli US PREG ANATOMY SINGLEon [...] YAAKOV TERAN Date: 2022-02-09 19:30 Normal [facility] AFP MATERNAL FOR SPINA BIFID Aon 01-29-2022 AFP MoM 0.76 Normal [facility] Comment on above: Performed By: #### G TT3P #### [facility] [address] [address] [address] Garland Kohli AFP Value 35.4 ng/mL Normal [facility] Comment on above: Performed By: #### G TT3P #### [facility] [address] [address] [address] Garland Kohli AFP, Serum for Spina Bifida Report Normal [facility] Comment on above: Performed By: #### G TT3P #### [facility] [address] [address] [address] Garland Kohli Comment Comment Normal [facility] Comment on above: Result Comment: Stanley Almodovar, Ph.D., [facility] Director . References: Available Upon Request. . Multiples Of Median Cutoffs For AFP Elevations Mark 2.5 Black 2.8 IDD 2.0 Twins 4.5 Abbreviation Definitions IDD - Insulin Dep Diabetes OSBR - Open Spina Bifida Risk . For further inquiries contact [facility] at [phone]. . This test was developed and its performance characteristics determined by [employer]. It has not been cleared or approved by the Food and Drug Administration. Performed By: #### G TT3P #### [facility] [address] [address] [address] Garland Kohli Gest Age Collection Date 18.1 weeks Normal [facility] Comment on above: Performed By: #### G TT3P #### [facility] [address] [address] [address] Garland Kohli Gestat, Age Based on Ultrasound Normal [facility] Comment on above: Result Comment: 09:4 on 11/26/2021 Recalculations are not recommended when gestational dating by LMP and ultrasound are within 10 days. Performed By: #### G TT3P #### [facility] [address] [place] [address] Dr. Garland Kohli Insulin Dep Diabetes No Normal [facility] Comment on above: Performed By: #### G TT3P #### [facility] [address] [place] [address] Dr. Garland Kohli Interpretation Comment Normal [facility] Comment on above: Result Comment: Inte rpretation: [...] Customer Services to discuss available options. The [employer] recommends amniocentesis be offered to women age 35 and older. Performed By: #### G TT3P #### [facility] [address] [place] [address] Dr. Garland Kohli [age] Normal [facility] Comment on above: Performed By: #### G TT3P #### [facility] [address] [place] [address] Dr. Garland Kohli Multiple Gestation No Normal [facility] Comment on above: Performed By: #### G TT3P #### [facility] [address] [place] [address] Dr. Garland Kohli OSBR Risk 1 [place] [id number] [facility] Comment on above: Performed By: #### G TT3P #### [facility] [address] [place] [address] Dr. Garland Kohli PDF . [facility] Comment on above: Performed By: #### G TT3P #### [facility] [address] [place] [address] Dr. Garland Kohli Race [facility] Comment on above: Performed By: #### G TT3P #### [facility] [address] [place] [address] Dr. Garland Kohli Test Results: Negative [facility] Comment on above: Performed By: #### G TT3P #### [facility] [address] [place] [address] Dr. Garland Kohli PAP ACOG PANEL 2: 21 to 29on 01-23-2022 . . [facility] Comment on above: Performed By: #### [id number] #### [facility] [address] [place] [address] Dr. Garland Kohli Age Gdln ACOG Testing [facility] Comment on above: Performed By: #### [id number] #### [facility] [address] [place] [address] Dr. Garland Kohli DIAGNOSIS: Comment [facility] Comment on above: Result Comment: NEGA TIVE FOR INTRAEPITHELIAL LESION OR MALIGNANCY. Performed By: #### [id number] #### [facility] [address] [place] [address] Dr. Garland Kohli Methodology: Comment Normal [facility] Comment on above: Result Comment: This liquid based ThinPrep(R) pap test was screened with the use of an image guided system. Performed By: #### [id number] #### [facility] [address] [place] [address] Dr. Garland Kohli Note: Comment Normal [facility] Comment on above: Result Comment: The Pap smear is a screening test designed to aid in the detection of premalignant and malignant conditions of the uterine cervix. It is not a diagnostic procedure and should not be used as the sole means of detecting cervical cancer. Both false-positive and false-negative reports do occur. . Performed By: #### [id number] #### [facility] [address] [place] [address] Dr. Garland Kohli Performed by: Comment Normal [facility] Comment on above: Result Comment: Kelly Arreguin, Encoding Machine Operator (ASCP) Performed By: #### [id number] #### [facility] [address] [place] [address] Dr. Garland Kohli Reflex Criteria: Comment Normal [facility] Comment on above: Result Comment: The HPV DNA reflex criteria were not met with this specimen result therefore, no HPV testing was performed. . Performed By: #### [id number] #### [facility] [address] [place] [address] Dr. Garland Kohli Specimen adequacy: Comment Normal [facility] Comment on above: Result Comment: Sati sfactory for evaluation. No endocervical component is identified. Performed By: #### [id number] #### [facility] [address] [place] [address] Dr. Garland Kohli CHLAMYDIA/GONOCOCCUS JUAN (SW AB/URINE/PAPon 01-20-2022 Chlamydia trachomatis, JUAN Negative Normal Negative [facility] Comment on above: Performed By: #### C BC #### [facility] [address] [place] [address] Dr. Garland Kohli Neisseria gonorrhoeae, JUAN Negative Normal Negative [facility] Comment on above: Performed By: #### C BC #### [facility] [address] [place] [address] Dr. Garland Kohli TSHon 01-04-2022 TSH 1.707 uIU/mL Normal 0.358-3.740 [facility] Comment on above: Performed By: #### G TT3P #### [facility] [address] [place] [address] Dr. Garland Kohli HEPATITIS C VIRUS AB W/ REFL EX QUANTon 12-17-2021 HCV AB <0.1 Normal 0.0-0.9 [facility] Comment on above: Performed By: #### G TT3P #### [facility] [address] [place] [address] Dr. Garland Kohli Interpretation: Comment Normal [facility] Comment on above: Result Comment: Nega tive Not infected with HCV, unless recent infection is suspected or other evidence exists to indicate HCV infection. Performed By: #### G TT3P #### [facility] [address] [place] [address] Dr. Garland Kohli CULTURE URINEon 12-15-2021 CULTURE URINE Culture Observations : GREATER THAN TWO ORGANISMS PRESENT. PLEASE RESUBMIT CLEAN CATCH MID-STREAM URINE IF CLINICALLY INDICATED. Normal [facility] Comment on above: Performed By: #### U RCX #### [facility] [address] [place] [address] Dr. Garland Kohli HEP B SURFACE ANTIGEN SCREEN on 12-15-2021 HBsAg Screen Negative Normal Negative [facility] Comment on above: Performed By: #### H BSANS #### [facility] [address] [place] [address] Dr. Garland Kohli HIV 1 AND 2 WITH REFLEXon HIV Screen 4th Generation wRfx Non-Reactive Normal Non Reactive [facility] Comment on above: Result Comment: HIV Negative HIV-1/HIV-2 antibodies and HIV-1 p24 antigen were NOT detected. There is no laboratory evidence of HIV infection. Performed By: #### H IV12 #### [facility] [address] [place] [address] Dr. Garland Kohli RPR QUANTon 12-15-2021 Rapid Plasma Reagin, Quant Non-Reactive Normal NonRea<1:1 [facility] Comment on above: Result Comment: Elmo torres Note: This test does not meet current guidelines for screening and diagnosis of syphilis. This test is intended for following treatment response in patients being treated for syphilis infection. To screen for syphilis infection, a reflex cascade that includes both RPR and a treponema-specific assay should be utilized, such as Treponema pallidum (Syphilis) Screening Rock (467908) or Rapid Plasma Reagin (RPR) Test With Reflex to Quantitative RPR and Confirmatory Treponema pallidum Antibodies (317817). Performed By: #### G TT3P #### [facility] [address] [place] [address] Dr. Garland Kohli RUBELLA AB IGGon 12-15-2021 Rubella Antibodies, IgG 4.72 index Normal Immune >0.99 [facility] Comment on above: Result Comment: Non- immune <0.90 Equivocal 0.90 - 0.99 Immune >0.99 Performed By: #### G TT3P #### [facility] [address] [place] [address] Dr. Garland Kohli CBC AUTO DIFFon 12-14-2021 BASO # 0.0 103/ul Normal 0.0-0.1 [facility] Comment on above: Performed By: #### C BC #### [facility] [address] [place] [address] Dr. Garland Kohli Basophils/100 WBC (Bld) 0.3 % Normal 0.2-2.0 [facility] Comment on above: Performed By: #### C BC #### [facility] [address] [place] [address] Dr. Garland Kohli EO # 0.1 103/ul Normal 0.0-0.7 [facility] Comment on above: Performed By: #### C BC #### [facility] [address] [place] [address] Dr. Garland Kohli Eosinophils/100 WBC (Bld) 0.8 % Critically low 0.9-7.0 [facility] Comment on above: Performed By: #### C BC #### [facility] [address] [place] [address] Dr. Garland Kohli Erythrocyte distribution width (RBC) [Ratio] 12.6 % Normal 11.0-15.0 [facility] Comment on above: Performed By: #### C BC #### [facility] [address] [place] [address] Dr. Garland Kohli Hematocrit (Bld) [Volume fraction] 34.3 % Critically low 36.0-48.0 [facility] Comment on above: Performed By: #### C BC #### [facility] [address] [place] [address] Dr. Garland Kohli Hemoglobin (Bld) [Mass/Vol] 11.7 g/dL Critically low 12.0-16.0 [facility] Comment on above: Performed By: #### C BC #### [facility] [address] [place] [address] Dr. Garland Kohli IG # 0.03 10e3/ul Normal 0.00-0.03 [facility] Comment on above: Performed By: #### C BC #### [facility] [address] [place] [address] Dr. Garland Kohli IG % 0.4 % Normal 0.0-0.5 [facility] Comment on above: Performed By: #### C BC #### [facility] [address] [place] [address] Dr. Garland Kohli LYMPH # 1.5 103/ul Normal 1.2-3.8 [facility] Comment on above: Performed By: #### C BC #### [facility] [address] [place] [address] Dr. Garland Kohli Lymphocytes/100 WBC (Bld) 21.1 % Normal 20.5-60.0 [facility] Comment on above: Performed By: #### C BC #### [facility] [address] [place] [address] Dr. Garland Kohli MANUAL DIFF REQ NO Normal [facility] Comment on above: Performed By: #### C BC #### [facility] [address] [place] [address] Dr. Garalnd Kohli MCH (RBC) [Entitic mass] 30.5 pg Normal 26.7-34.0 [facility] Comment on above: Performed By: #### C BC #### [facility] [address] [place] [address] Dr. Garland Kohli MCHC (RBC) [Mass/Vol] 34.1 g/dL Normal 29.9-35.2 [facility] Comment on above: Performed By: #### C BC #### [facility] [address] [place] [address] Dr. Garland Kohli MCV (RBC) [Entitic vol] 89.6 fL Normal 81.0-99.0 [facility] Comment on above: Performed By: #### C BC #### [facility] [address] [place] [address] Dr. Garland Kohli MONO # 0.5 103/ul Normal 0.3-0.8 [facility] Comment on above: Performed By: #### C BC #### [facility] [address] [place] [address] Dr. Garland Kohli Monocytes/100 WBC (Bld) 7.1 % Normal 1.7-12.0 [facility] Comment on above: Performed By: #### C BC #### [facility] [address] [place] [address] Dr. Garland Kohli NEUT # 5.0 103/ul Normal 1.4-6.5 [facility] Comment on above: Performed By: #### C BC #### [facility] [address] [place] [address] Dr. Garland Kohli Neutrophils/100 WBC (Bld) 70.3 % Normal 43.0-75.0 [facility] Comment on above: Performed By: #### C BC #### [facility] [address] [place] [address] Dr. Garland Kohli Platelet mean volume (Bld) [Entitic vol] 10.1 fL Normal 9.5-13.5 [facility] Comment on above: Performed By: #### C BC #### [facility] [address] [place] [address] Dr. Garland Kohli PLT 234 103/ul Normal 150-450 [facility] Comment on above: Performed By: #### C BC #### [facility] [address] [place] [address] Dr. Garland Kohli RBC 3.83 106/ul Critically low 4.20-5.40 [facility] Comment on above: Performed By: #### C BC #### [facility] [address] [place] [address] Dr. Garland Kohli WBC 7.1 103/ul Normal 4.0-11.0 [facility] Comment on above: Performed By: #### C BC #### [facility] [address] [place] [address] Dr. Garland Kohli GLYCOHEMOGLOBIN A1Con 2021 ADA RECOMMENDATION SEE BELOW Normal [facility] Comment on above: Result Comment: ADA RECOMMENDED LIMIT 4.0 - 6.0 ADA THERAPEUTIC TARGET < 7.0 ACTION SUGGESTED > 7.0 Performed By: #### A 1C #### [facility] [address] [place] [address] Dr. Garland Kohli Glucose [Mass/Vol] 103 mg/dL Normal [facility] Comment on above: Performed By: #### A 1C #### [facility] [address] [place] [address] Dr. Garland Kohli HbA1c (Bld) [Mass fraction] 5.2 % Normal 4.5-6.2 [facility] Comment on above: Performed By: #### A 1C #### [facility] [address] [place] [address] Dr. Garland Kohli MARTÍNEZ BOX TEST PT SEND OUTo n 12-14-2021 SENT TO REF LAB 12/14/21 Normal [facility] Comment on above: Performed By: #### G TT3P #### [facility] [address] [place] [address] Dr. Garland Kohli TYPE AND SCREENon 12-14-2021 TYPE AND SCREEN Negative Normal [facility] Comment on above: Performed By: #### C #### [facility] [facility] [address] [place] [address] Dr. Garland Kohli US PREG TVon 11-26-2021 [...] YAAKOV TERAN Date: 2021-11-26 18:36 Normal [facility] OPERATIVE REPORTon 9 OPERATIVE REPORT [place] [id number] OPERATIVE REPORT PATIENT NAME: JULIÁN JOHNSON : 1995 MED REC NO: [id number] ROOM: ACCOUNT NO: [id number] ADMIT DATE: 11/24/2018 PROVIDER: Mode Renee DATE OF PROCEDURE: 11/24/2018 PRIMARY CARE PHYSICIAN: Mo Coleman PREOPERATIVE DIAGNOSIS: Symptomatic macromastia. POSTOPERATIVE DIAGNOSIS: Symptomatic macromastia. OPERATION PERFORMED: 1. Suction assisted lipectomy of the breasts and axilla. 2. Bilateral reduction mammoplasty. SURGEON: Moed Renee ANESTHESIA: General. COMPLICATIONS: None. ESTIMATED BLOOD [...] infiltrated into the drains, this was for jail pain control. Steri-Strips applied throughout and then bulky gauze dressing as well as surgical bra was applied. The patient was awoken, extubated, and transported to the recovery room in stable condition. Sponge, needle, and instrument counts were reported correct x2 at the end of the case. MODE RENEE [id number] Doc#: [id number] CC: Mo Coleman Normal [facility] Surgical Pathologyon 019 Surgical Pathology (NOTE) [id number] [facility] [address] [place] [address] SURGICAL PATHOLOGY REPORT Patient Name: JULIÁN JOHNSON MR#: [id number] Specimen #[id number] Final Diagnosis SPECIMEN A : BREAST AND [...] The entire specimen weighs 453 grams. Multiple fuels sales representative sections are submitted in five [...] also sampled in multiple different areas and fuels sales representative sections are submitted in five cassettes for microscopic examination. Microscopic Description Specimen A : Five RICHARD glass slides are received. Microscopic examination is performed. Specimen B : Five RICHARD glass slides are received. Microscopic examination is performed. Normal [facility] Comment on above: Performed By: #### P PPES #### [facility] [address] [place] [address] [employer]: Victor Manuel Hunter DO CNOVSPon 11-18-2018 CNOVSP Visit (SP) Office ([facility]) JULIÁN JOHNSON ([id number]) 1995 F Date Time Provider Department 11/18/18 1:00 PM MOSES MOULTON) KATHARINE During your visit today, we recorded the following information about you: Temperature Pulse Respiration Blood pressure 97.9 degrees 82/minute 18/minute 122/78 Weight Height Last Period 82.7 kg 1.6 m 10/15/18 Moses Moulton MD 11/18/2018 3:08 PM Signed PATIENT NAME: Julián Johnson CLINIC NO.: [id number] ATTENDING PHYSICIAN: Moses Moulton MD DATE OF [...] file Gets together: Not on file Attends restoration service: Not on file Active member of [...] number below. Moses Moulton M.D. Hematology/Medical Oncology [place] [phone] CC: Mo Coleman MD - (Inactive), In Basket (Inactive) - User (Inactive) [address] [place] [id number] () Mode Renee MD Referring Provider: [...] by MOSES MOULTON MD on 11/18/18 Normal [facility] PROGRESSon 11-18-2018 PROGRESS HNO ID: [id number] Author: Moses Hill) Kenney Service: ? Author Type: Physician Type: Progress Notes Filed: 11/18/2018 3:08 PM Note Text: PATIENT NAME: Julián Johnson [facility] NO.: [id number] ATTENDING PHYSICIAN: Moses Moulton MD DATE OF [...] file Gets together: Not on file Attends restoration service: Not on file Active member of [...] number below. Moses Moulton M.D. Hematology/Medical Oncology [facility] [phone] CC: Mo Coleman MD - (Inactive), In Basket (Inactive) - User (Inactive) [address] [facility] [phone] () Mode Renee MD Normal [facility] Basic Metabolic Profon 11-10 (cont.) Normal [facility] Comment on above: Result Comment: Aver age GFR for 20-29 years old: 116 mL/min/1.73sq m Chronic Kidney Disease: <60 mL/min/1.73sq m Kidney failure: <15 mL/min/1.73sq m eGFR calculated using average adult body mass. Additional eGFR calculator available at: http://www.Gimmie.Snaptee/multiple_crcl_2012.htm Performed By: #### C DP, BMP #### [facility] [address] [place] [address] [employer]: Victor Manuel Hunter DO Anion gap [Moles/Vol] 11 mmol/L Normal 9-17 [facility] Comment on above: Performed By: #### C FARAZ, BMP #### [facility] [address] [place] [address] [employer]: Victor Manuel Huntre DO Calcium [Mass/Vol] 9.7 mg/dL Normal 8.6-10.4 [facility] Comment on above: Performed By: #### C FARAZ, BMP #### [facility] [address] [place] [address] [employer]: Victor Manuel Hunter DO Chloride [Moles/Vol] 102 mmol/L Normal 98-107 [facility] Comment on above: Performed By: #### C DP, BMP #### [facility] [address] [place] [address] [employer]: Victor Manuel Hunter DO CO2 [Moles/Vol] 26 mmol/L Normal 20-31 [facility] Comment on above: Performed By: #### C DP, BMP #### [facility] [address] [place] [address] [employer]: Fanelly, Victor Manuel, DO Creatinine [Mass/Vol] 0.49 mg/dL Low 0.50-0.90 [facility] Comment on above: Performed By: #### C DP, BMP #### [facility] [address] [place] [address] [employer]: Victor Manuel Hunter, DO GFR, Amer >60 Normal >60 [facility] Comment on above: Performed By: #### C DP, BMP #### [facility] [address] [place] [address] [employer]: Victor Manuel Hunter, DO GFR,non Amer >60 Normal >60 [facility] Comment on above: Performed By: #### C DP, BMP #### [facility] [place] [address] [employer]: Victor Manuel Hunter DO Glucose [Mass/Vol] 88 mg/dL Normal 70-99 [facility] Comment on above: Performed By: #### C DP, BMP #### [facility] [place] [address] [employer]: Victor Manuel Hunter DO Potassium [Moles/Vol] 4.3 mmol/L Normal 3.7-5.3 [facility] Comment on above: Performed By: #### C DP, BMP #### [facility] [place] [address] [employer]: Victor Manuel Hunter, DO Sodium [Moles/Vol] 139 mmol/L Normal 135-144 [facility] Comment on above: Performed By: #### C DP, BMP #### [facility] [address] [place] [address] [employer]: Victor Manuel Hunter, DO Urea nitrogen [Mass/Vol] 8 mg/dL Normal 6-20 [facility] Comment on above: Performed By: #### C DP, BMP #### [facility] [address] [facility] [place] [address] [employer]: Victor Manuel Hunter DO BUN/CRE Ratio NOT REPORTED Normal 9-20 [facility] Comment on above: Performed By: #### C DP, BMP #### [facility] [place] [address] [employer]: Victor Manuel Hunter DO Staging: NOT REPORTED Normal [facility] Comment on above: Performed By: #### C DP, BMP #### [facility] [address] [place] [address]. [place] [address] [employer]: Victor Manuel Hunter DO CBC with Diffon 11-10-2018 Abs. Basophil 0.00 k/uL Normal 0.0-0.2 [facility] Comment on above: Performed By: #### C DP, BMP #### [facility] [address] [place] [address]. [place] [address] [employer]: Victor Manuel Hunter DO Abs.Neutrophil (Seg) 3.00 k/uL Normal 1.3-9.1 [facility] Comment on above: Performed By: #### C DP, BMP #### [facility] [address] [place] [address]. [place] [address] [employer]: Victor Manuel Hunter DO Basophils/100 WBC (Bld) 0 % Normal 0-2 [facility] Comment on above: Performed By: #### C DP, BMP #### [facility] [place] [address] [employer]: Victor Manuel Hunter DO Eosinophils (Bld) [#/Vol] 0.10 10*3/uL Normal 0.0-0.4 [facility] Comment on above: Performed By: #### C DP, BMP #### [facility] [place] [address] [employer]: Victor Manuel Hunter DO Eosinophils/100 WBC (Bld) 1 % Normal 0-4 [facility] Comment on above: Performed By: #### C DP, BMP #### [facility] [address] [place] [address] [employer]: Victor Manuel Hunter DO Erythrocyte distribution width (RBC) [Ratio] 12.7 % Normal 11.5-14.9 [facility] Comment on above: Performed By: #### C DP, BMP #### [facility] [place] [address] [employer]: Victor Manuel Hunter DO Hematocrit (Bld) [Volume fraction] 42.3 % Normal 36-46 [facility] Comment on above: Performed By: #### C DP, BMP #### [facility] [address] [facility] [place] [address] [employer]: Victor Manuel Hunter DO Hemoglobin (Bld) [Mass/Vol] 14.3 g/dL Normal 12.0-16.0 [facility] Comment on above: Performed By: #### C DP, BMP #### [facility] [place] [address] [employer]: Victor Manuel Hunter DO Lymphocytes (Bld) [#/Vol] 1.70 10*3/uL Normal 1.0-4.8 [facility] Comment on above: Performed By: #### C DP, BMP #### [facility] [place] [address] [employer]: Victor Manuel Hunter DO Lymphocytes/100 WBC (Bld) 32 % Normal 24-44 [facility] Comment on above: Performed By: #### C DP, BMP #### [facility] [place] [address] [employer]: Victor Manuel uHnter DO MCH (RBC) [Entitic mass] 30.0 pg Normal 26-34 [facility] Comment on above: Performed By: #### C DP, BMP #### [facility] [address] [place] [address] [employer]: Victor Manuel Hunter DO MCHC (RBC) [Mass/Vol] 33.7 g/dL Normal 31-37 [facility] Comment on above: Performed By: #### C DP, BMP #### [facility] [place] [address] [employer]: Victor Manuel Hunter DO MCV (RBC) [Entitic vol] 89.0 fL Normal 80-100 [facility] Comment on above: Performed By: #### C FARAZ, BMP #### [facility] [place] [address] [employer]: Victor Manuel Hunter DO Monocytes (Bld) [#/Vol] 0.60 10*3/uL Normal 0.1-1.3 [facility] Comment on above: Performed By: #### C DP, BMP #### [facility] [place] [address] [employer]: Victor Manuel Hunter DO Monocytes/100 WBC (Bld) 11 % High 1-7 [facility] Comment on above: Performed By: #### C DP, BMP #### [facility] [place] [address] [employer]: Victor Manuel Hunter DO Neutrophil (Seg) 56 % Normal 36-66 [facility] Comment on above: Performed By: #### C DP, BMP #### [facility] [place] [address] [employer]: Victor Manuel Hunter DO Platelet mean volume (Bld) [Entitic vol] 9.4 fL Normal 6.0-12.0 [facility] Comment on above: Performed By: #### C DP, BMP #### [facility] [address] [place] [address] [employer]: Victor Manuel Hunter DO Platelets (Bld) [#/Vol] 252 10*3/uL Normal 150-450 [facility] Comment on above: Performed By: #### C DP, BMP #### [facility] [address] [place] [address] [employer]: Victor Manuel Hunter DO RBC (Bld) [#/Vol] 4.75 10*6/uL Normal 4.0-5.2 [facility] Comment on above: Performed By: #### C FARAZ, BMP #### [facility] [address] [place], [place] [address] [place] [address] [employer]: Victor Manuel Hunter DO WBC (Bld) [#/Vol] 5.3 10*3/uL Normal 3.5-11.0 [facility] Comment on above: Performed By: #### C FARAZ, BMP #### [facility] [place] [address] [employer]: Victor Manuel Hunter DO Abs.Imm.Granulocyte NOT REPORTED Normal 0.00-0.30 [facility] Comment on above: Performed By: #### C DP, BMP #### [facility] [place] [address] [employer]: Victor Manuel Hunter DO Auto Diff Performed NOT REPORTED Normal [facility] Comment on above: Performed By: #### C DP, BMP #### [facility] [place] [address] [employer]: Victor Manuel Hunter DO Immature granulocytes (Bld) [#/Vol] NOT REPORTED Normal 0 [facility] Comment on above: Performed By: #### C DP, BMP #### [facility] [address] [facility] [place] [address] [employer]: Victor Manuel Hunter DO NRBC Automated NOT REPORTED Normal [facility] Comment on above: Performed By: #### C DP, BMP #### [facility] [address] [facility] [place] [address] [employer]: Victor Manuel Hunter DO Platelets (Bld) [#/Vol] NOT REPORTED Normal [facility] Comment on above: Performed By: #### C DP, BMP #### [facility] [address] [facility] [place] [address] [employer]: Victor Manuel Hunter DO RBC morphology finding Nom (Bld) NOT REPORTED Normal [facility] Comment on above: Performed By: #### C DP, BMP #### [facility] [address] [facility] [place] [address] [employer]: Victor Manuel Hunter DO WBC Morphology NOT REPORTED Normal [facility] Comment on above: Performed By: #### C DP, BMP #### [facility] [address] [facility] [place] [address] [employer]: Victor Manuel Hunter DO Vital Signs Date Time Vital Sign Value Performing Clinician Alexis zavala 01-29-2022 02:06-0400 Body weight 67.[address] ZEN BREWER . [facility] Comment on above: Performed By: #### G TT3P #### [facility] [address] [place], [place] [id number] Dr. Garland Kohli Encounters Encounter Date Encounter Type Care Provider Facility Start: 10-16-2023 End: 10-16-2023 ambulatory TORI WARCHOL Not Available Start: 07-17-2023 End: 07-17-2023 ambulatory TORI WARCHOL Not Available Start: 07-13-2023 End: 07-13-2023 ambulatory Tony Charles Lause Facility:[facility] Start: 07-13-2023 End: 07-13-2023 ambulatory MD Mo Coleman Work Phone: [facility] Work Phone: Start: 07-13-2023 End: 07-13-2023 Patient encounter procedure MD Mo Coleman Work Phone: [facility] Start: 07-13-2023 End: 07-13-2023 ambulatory TONY GR Not Available Start: 06-02-2023 Refill Tori Martinez [employer] Work Phone: [facility] Comment on above: Attention deficit hy peractivity disorder (ADHD), combined type ([facility]) Start: 04-16-2023 End: 04-16-2023 ambulatory TORI MARTINEZ Not Available Start: 07-04-2022 End: 07-14-2022 ambulatory ÁNGEL SINHA Facility:[facility] Start: 07-01-2022 End: 07-01-2022 ambulatory ÁNGEL SINHA Facility:[facility] Start: 06-23-2022 End: 06-25-2022 Evaluation and management of inpatient MOSES MOULTON Facility:[facility] Start: 06-07-2022 End: 06-08-[address] DOCTOR MACK Facility:[facility] Start: 05-30-2022 End: 05-30-[address] ZEN BREWER . Facility:[facility] Start: 04-16-2022 End: 04-17-[address] LCAY AVILES . Facility:[facility] Start: 04-04-2022 End: 04-04-[address] DEANNA LINN Facility:[facility] Start: 03-26-2022 End: 03-27-[address] ZEN BREWER . Facility:[facility] Start: 02-08-2022 End: 02-09-[address] ZEN BREWER . Facility:[facility] Start: 01-25-2022 End: 01-26-[address] ZEN BREWER . Facility:[facility] Start: 01-20-2022 Encounter for gynecological examination (general) (routine) without abnormal findings DR ZEN BREWER . [facility] Start: 01-17-2022 End: 01-17-[address] ZEN BREWER . Facility:[facility] Start: 01-17-2022 End: 01-17-2022 Encounter for gynecological examination (general) (routine) without abnormal findings DR ZEN BREWER . Facility:[facility] Start: 01-04-2022 End: 01-05-2022 ambulatory ÁNGEL SINHA Facility:[facility] Start: 12-14-2021 End: 12-15-[address] ZEN BREWER . Facility:[facility] Start: 11-26-2021 End: 11-27-2021 ambulatory ÁNGEL SINHA Facility:[facility] Start: 11-24-2018 End: 11-24-2018 Patient encounter procedure MODE R [facility] Start: 11-10-2018 End: 11-15-2018 Patient encounter procedure [facility] Ruth [facility] Procedures Date Procedure Procedure Detail Performing Clinician [...] 10-25-2023 Influenza vaccination Influenza Vacc ine (#1) [facility] Comment on above: Postponed from 12/26 (Patient Refused) Start: 07-17-2023 End: 07-17-2023 Patient encounter procedure 07/17/2023 8:00 AM EDT Office Visit [facility] [address] [place] [id number] Tori Martinez [employer]ATOR [address] [place] [address] [facility] Immunizations Immunization Date Immunization Notes Care Provider Fa cility 05-05-2015 tetanus toxoid, redu catherine diphtheria toxoid, and acellular pertussis vaccine, adsorbed Tori Warchol [employer] OPERATOR Work Phone: [facility] 02-14-2009 influenza, seasonal, injectable Tori Warchol [employer] OPERATOR Work Phone: [facility] 02-14-2009 influenza virus vacc ine, unspecified formulation Tori Warchol [employer] OPERATOR Work Phone: [facility] 12-12-2005 hepatitis A vaccine, unspecified formulation Tori Warchol [employer] OPERATOR Work Phone: [facility] 12-12-2005 tetanus toxoid, redu catherine diphtheria toxoid, and acellular pertussis vaccine, adsorbed Tori Warchol [employer] PR[employer] OPERATOR Work Phone: [facility] 11-19-1998 diphtheria, tetanus toxoids and acellular pertussis vaccine, unspecified formulation Tori Warchol [employer] OPERATOR Work Phone: [facility] 11-19-1998 measles, mumps and rubella virus vaccine Tori Warchol [employer] PR[employer] OPERATOR Work Phone: [facility] 11-19-1998 trivalent poliovirus vaccine, live, oral Tori Warchol [employer] PR[employer] OPERATOR Work Phone: [facility] 09-14-1995 diphtheria, tetanus toxoids and acellular pertussis vaccine, unspecified formulation Tori Warchol [employer] PR[employer] OPERATOR Work Phone: [facility] 09-14-1995 haemophilus influenz ae type b vaccine, conjugate unspecified formulation Tori Warchol [employer] OPERATOR Work Phone: [facility] 11-20-1994 DTP-Haemophilus influenzae type b conjugate vaccine Tori Warchol [employer] PR[employer] OPERATOR Work Phone: [facility] 11-20-1994 hepatitis B vaccine, pediatric or pediatric/adolescent dosage Tori Warchol [employer] OPERATOR Work Phone: [facility] 11-20-1994 measles, mumps and rubella virus vaccine Tori Warchol [employer] PR[employer] OPERATOR Work Phone: [facility] 11-20-1994 trivalent poliovirus vaccine, live, oral Tori Warchol [employer] PR[employer] OPERATOR Work Phone: [facility] 09-18-1994 DTP-Haemophilus influenzae type b conjugate vaccine Tori Warchol [employer] PR[employer] OPERATOR Work Phone: [facility] 09-18-1994 hepatitis B vaccine, pediatric or pediatric/adolescent dosage Tori Warchol [employer] PR[employer] OPERATOR Work Phone: [facility] 09-18-1994 trivalent poliovirus vaccine, live, oral Tori Warchol [employer] PR[employer] OPERATOR Work Phone: [facility] 1993 diphtheria, tetanus toxoids and pertussis vaccine Tori Warchol [employer] PR[employer] OPERATOR Work Phone: [facility] 1993 haemophilus influenz ae type b vaccine, conjugate unspecified formulation Tori Warchol [employer] PR[employer] OPERATOR Work Phone: [facility] 1995 hepatitis B vaccine, pediatric or pediatric/adolescent dosage Tori Warchol [employer] PR[employer] OPERATOR Work Phone: [facility] 1993 trivalent poliovirus vaccine, live, oral Tori Warchol [employer] PR[employer] OPERATOR Work Phone: [facility] Payers Date Payer Category Payer Self-pay [id number] 2022 Unknown BCBS BCBS [id number] 2022-Present [phone] [address] [place] [address] [id number] 2017 Private Health Insurance [id number] 1995 Unknown [id number] 2.16.840.1.767444.3.579.2.1 76 1993 Unknown [id number] 2.16.840.1.605414.3.579.2.1 76 1993 Unknown [id number] 2.16.840.1.154735.3.579.2.5 93 1993 Unknown [id number] 2.16.840.1.136496.3.579.2.5 93 1993 Unknown [id number] 2.16.840.1.072316.3.579.2.5 93 1993 Unknown [id number] 2.16.840.1.936253.3.579.2.5 93 1993 Unknown [id number] 2.16.840.1.565119.3.579.2.5 93 1993 Unknown [id number] 2.16.840.1.972175.3.579.2.5 93 1993 Unknown [id number] 2.16.840.1.476762.3.579.2.5 93 1993 Unknown [id number] 2.16.840.1.096040.3.579.2.5 93 1993 Unknown [id number] 2.16.840.1.109197.3.579.2.5 93 1993 Unknown [id number] 2.16.840.1.902282.3.579.2.5 93 1993 Unknown [id number] 2.16.840.1.671942.3.579.2.5 93 1993 Unknown [id number] 2.16.840.1.334236.3.579.2.5 93 1993 Unknown [id number] 2.16.840.1.520522.3.579.2.5 93 1993 Unknown [id number] 2.16.840.1.342298.3.579.2.5 93 1993 Unknown [id number] 2.16.840.1.132011.3.579.2.1 259 1993 Unknown [id number] 2.16.840.1.762457.3.579.2.1 259 1993 Unknown [id number] 2.16.840.1.724195.3.579.2.1 259 1993 Unknown [id number] 2.16.840.1.437689.3.579.2.1 259 1959 Self-pay [id number] 1959 Unknown [id number] 1959 Unknown [id number] 1959 Unknown [id number] Unknown [id number] 2.16.840.1.531813.3.579.2.5 93 Unknown HCAP/HFA/FAP Active [id number] Unknown [id number] 2.16.840.1.913941.3.579.2.5 31 Social History Date Type Detail Facility Start: 08-27-2016 End: 09-25-2022 Tobacco smoking status MDIS Never smoked tobacco [facility] Health care Start: 09-25-2022 Tobacco use and exposure Smoke less tobacco non-user [facility] Healthcare Start: 04-16-2023 Alcohol intake Current drinke r of alcohol (finding) [facility] Start: 01-15-2023 End: 04-16-2023 Alcohol intake [facility] Start: 01-15-2023 End: 04-16-2023 Alcohol Use [...] Facility Evaluation note No assessment information availa [facility] Work Phone: Summary Purpose Family History [...] section and content) DATE CREATED AUTHOR 11/18/2018 [facility] DATE CREATED AUTHOR AUTHOR'S ORGANIZ ATION 11/26/2018 [facility] DATE CREATED AUTHOR AUTHOR'S ORGANIZ ATION 09/09/2022 [facility] DATE CREATED AUTHOR AUTHOR'S ORGANIZ ATION 08/27/2023 [facility] DATE CREATED AUTHOR AUTHOR'S ORGANIZ ATION 10/17/2023 [facility] EPIC Reason for Visit (unrecogniz ed section and content) Reason Onset Date Comments Med Refill 06/02/2023 Care Teams (unrecognized sec tion and content) Disbursing Officer Relationship Specialty Start Date End Date Mo Coleman MD [address] [place] [address] PCP - General Family Medicine 09/24/22 Tori Martinez NP [address] [place] [address] Nurse Practitioner Family Medicine 09/24/22 Tony Gr NP [address] [place] [address] Nurse Practitioner Pulmonary Disease 04/14/23 Team Status: [...] BE BASED ON THE PRIMARY CLINICAL RECORDS. [facility], [facility]. provides no warranty or guarantee of the accuracy or completeness of information in this document.
[2023-12-12 11:27] LABS: Alanine Aminotransferase 16 U/L (14-59); Albumin Globulin Ratio 1.1; Albumin Level 3.4 g/dL (3.4-5.0); Alkaline Phosphatase 46 U/L (46-116); Anion Gap 11.5; Aspartate Amino Transferase 9 U/L (15-37); BUN Creatinine Ratio 11.4; Bilirubin Total 0.6 mg/dL (0.2-1.0); Calcium 8.8 mg/dL (8.5-10.1); Carbon Dioxide 25.1 mmol/L (21.0-32.0); Chloride 104 mmol/L (98-107); Estimated GFR (African America >60 (>=60); Estimated GFR (Non-African Ame >60 (>=60); Glucose 86 mg/dL (74-106); Potassium 3.6 mmol/L (3.5-5.1); Sodium 137 mmol/L (136-145); TSH W/ REFLEX FT4 2.756 uIU/mL (0.358-3.740); Total Protein 6.4 g/dL (6.4-8.2)
[2023-12-12 11:31] LABS: Percent Iron Saturation 38.4 %
== END 2023-12-12 09:24 | disposition home or self-care (01) ==
LOC: LAB 09:25
PROVIDERS: Visit Provider Registered Nurse
DX: Z34.80 Encounter for supervision of other normal pregnancy, unspecified trimester (principal); E03.9 Hypothyroidism, unspecified; N92.6 Irregular menstruation, unspecified
CPT/HCPCS: 36415; 80053; 82607; 82728; 83036; 83540; 83550; 84443; 85025; 86592; 86762; 86803; 86850; 86900; 86901; 87086; 87340; 87389

== ENCOUNTER 2024-01-13 17:01 | Emergency (ER) | payer BC, MEDICAID, SELFPAY ==
[2024-01-13 17:25] VITALS: BP 131/85; PULSE 80; TEMP 37; O2SAT 98; BMI 28.2
--- NOTE | 2024-01-13 17:57 | US_ITS ---
The [address] [address] Patient Name: JULIÁN JIMENEZ MRN: [id number] date: 1995 Sex: F Assigned Patient Location: ER Current Patient Location: Accession/Order Number: [id number] Exam Date: 01/13/2024 18:50 Report Date: 01/13/2024 20:32 At the request of: SHANTAL SPARKS Procedure: US OB limited US OB limited HISTORY: left lower quad pain, 16 weeks COMPARISONS: 12/11/2023 TECHNIQUE: A limited ultrasound of the fetus was performed. FINDINGS: There is a single live intrauterine gestation with cardiac activity. heartbeat of 153 bpm was obtained. presentation is breech. The placenta is anterior in location and is grade 0. Additional sonographic images were obtained in the left lower quadrant corresponding to the area of clinical concern. No sonographic abnormalities are appreciated. US/US OB limited IMPRESSION: Single live intrauterine gestation with cardiac activity. No sonographic abnormalities are appreciated based on this limited ultrasound. Electronically authenticated by: FREDDIE CARMONA Date: 01/13/2024 20:32
[2024-01-13 18:33] LABS: Bilirubin Urine NEGATIVE (NEGATIVE); Blood Urine NEGATIVE (NEGATIVE); Clarity Urine CLEAR (CLEAR); Color Urine LT. YELLOW (YELLOW); Glucose Urine UA NEGATIVE (NEGATIVE); Ketones Urine NEGATIVE (NEGATIVE); Leukocyte Esterase Urine SMALL (NEGATIVE); Nitrite Urine NEGATIVE (NEGATIVE); Protein Urine NEGATIVE (NEG/TRACE); Urobilinogen Urine 0.2 EU/dL (0.2-1.0); pH Urine 6.5 (5.0-9.0)
[2024-01-13 18:46] LABS: Bacteria Urine TRACE #/HPF (NONE SEEN); Mucus Urine SMALL (NONE SEEN); RBC Urine 0-2 #/HPF (0-2)
[2024-01-13 18:47] LABS: Cast Seen? NONE SEEN #/LPF (NONE SEEN); Crystals Seen? None Seen #/HPF (None Seen); Squamous Epithelial Cell Urine RARE #/LPF (NONE/RARE)
[2024-01-13 19:49] VITALS: BP 112/67; PULSE 71; O2SAT 100
--- NOTE | 2024-01-13 19:57 | ED_ITS ---
HPI - Abdominal Pain General Chief Complaint: Abdominal Pain Stated Complaint: Flank Pain 16 week Time Seen by Provider: 01/13/24 19:50 Source: patient Mode of arrival: walk-in Limitations: no limitations History of Present Illness HPI narrative: This 28-year-old female who is approximately 16 weeks presents for evaluation of intermittent sharp stabbing and aching pain in the left lower quadrant from her hip to her lower abdomen. She is not having any urinary symptoms. She does not have any back pain. She has not had any vaginal bleeding or discharge. She states she can feel her baby moving. She states this does not feel like it feels when the baby is moving. She takes a daily aspirin but has not taken any Tylenol. She has no right lower quadrant pain. She has been having normal bowel movements and does not think that she is constipated. Related Data Allergies Allergy/AdvReac Type Severity Reaction Status Date / Time cefuroxime [From Ceftin] Allergy Intermediate Hives Verified 01/13/24 17:24 ciprofloxacin [From Cipro] Allergy Intermediate Difficulty Verified 01/13/24 17:24 Breathing clonidine Allergy Mild Palpitation Verified 01/13/24 17:24 s doxycycline AdvReac Mild Nausea Verified 01/13/24 17:24 Review of Systems ROS Status of ROS 10 or more systems reviewed and unremark able except as noted in history and below PFSH PFSH Social History Little interest or pleasure in doing things: not at all Feeling down, depressed, or hopeless: not at all Exam Narrative Exam Narrative: Vital signs and Nursing Notes reviewed: Patient is afebrile with a normal pulse, normal blood pressure, she is not hypoxic with pulse ox of 100% on room air General: Awake, alert, oriented, no acute distress, lying comfortably on the stretcher HEENT: Normocephalic atraumatic, mucous membranes are moist and pink, eyes are clear, normal conjunctiva, vision is grossly intact Chest: Lungs are clear to auscultation with good air entry, there is no wheezing rhonchi or rales appreciated no accessory muscle use, patient is speaking in complete sentences-no chest wall tenderness to palpation CVS: Regular rate and rhythm S1-S2, no murmurs rubs or gallops, pulses are brisk and equal bilaterally ABD: Soft, nondistended, gravid uterus beneath the umbilicus, no reproducible tenderness in the inguinal area, no appreciable lymphadenopathy Extremities: Moving all extremities, no lower extremity tenderness or swelling noted, negative Homans' sign, pulses are brisk and equal bilaterally Skin: Normal in appearance without rash,pallor, petechiae or purpura Neuro: No focal deficits Constitutional Vital Signs, click to edit/add: Last Vital Signs Temp 98.6 F 01/13/24 17:25 Pulse 71 01/13/24 19:49 Resp 18 01/13/24 19:49 BP 112/67 01/13/24 19:49 Pulse Ox 98 01/13/24 20:12 O2 Del Method Room Air 01/13/24 20:12 Course Vital Signs Vital signs: Vital Signs Temperature 98.6 F 01/13/24 17:25 Pulse Rate 80 01/13/24 17:25 Respiratory Rate 01/13/24 17:25 Blood Pressure 131/85 01/13/24 17:25 Pulse Oximetry 98 01/13/24 17:25 Oxygen Delivery Method Room Air 01/13/24 17:25 Temperature 98.6 F 01/13/24 17:25 Pulse Rate 71 01/13/24 19:49 Respiratory Rate 01/13/24 19:49 Blood Pressure 112/67 01/13/24 19:49 Pulse Oximetry 98 01/13/24 20:12 Oxygen Delivery Method Room Air 01/13/24 20:12 MDM - Abdominal Pain MDM Narrative Medical decision making narrative: This 28-year-old female who is approximately 16 weeks presents for evaluation of intermittent sharp stabbing and aching pain in her left lower quadrant. She has not having any nausea or vomiting. She did not have any fever.. She does not have any urinary symptoms. She does not have any vaginal bleeding. She does take a daily baby aspirin. She has [employer] emergency department with Tylenol. Her urine does not appear to be infected. OB ultrasound was ordered and is included in the body of this report and does not show any acute findings. I reviewed the tech notes on the ultrasound that noted that the patient has a single live IUP at 15 weeks 6 days with a heart rate in the 150s which is normal. This was discussed with the patient. She was offered to stay until the ultrasound has been officially read or I can call her with the ultrasound reading and she prefers to be discharged home at this time. She states she is hungry and has not eaten since 11:00. My suspicion is that she is having some round ligament stretching as her fetus outgrows her pelvis. She was referred to her [employer], Dr. Coto for further evaluation and treatment. At this time [place] [address] Ultrasound Report Signed Patient: JULIÁN JIMENEZ MR#: [id number] : 1995 Acct:[id number] Age/Sex: 28 / F ADM Date: 01/13/24 Loc: ER Attending Dr: Ordering Physician: Shantal Wheatley D.O. Date of Service: 01/13/24 Procedure(s): US OB limited Accession Number(s): [id number] cc: MO COHEN ; Shantal Wheatley D.O.~ The [place] [address] Patient Name: JULIÁN JIMENEZ MRN: [id number] date: 1995 Sex: F Assigned Patient Location: ER Current Patient Location: Accession/Order Number: [id number] Exam Date: 01/13/2024 18:50 Report Date: 01/13/2024 20:32 At the request of: SHANTAL WHEATLEY Procedure: US OB limited US OB limited HISTORY: left lower quad pain, 16 weeks COMPARISONS: 12/11/2023 TECHNIQUE: A limited ultrasound of the fetus was performed. FINDINGS: There is a single live intrauterine gestation with cardiac activity. heartbeat of 153 bpm was obtained. presentation is breech. The placenta is anterior in location and is grade 0. Additional sonographic images were obtained in the left lower quadrant corresponding to the area of clinical concern. No sonographic abnormalities are appreciated. US/US OB limited IMPRESSION: Single live intrauterine gestation with cardiac activity. No sonographic abnormalities are appreciated based on this limited ultrasound. Electronically authenticated by: FREDDIE CARMONA Date: 01/13/2024 20:32 Lab Data Labs: Lab Results 01/13/24 Range/Units 18:05 Urine Color Lt. yellow (YELLOW) Urine Clarity Clear (CLEAR) Urine pH 6.5 (5.0-9.0) Ur Specific Maxwell 1.020 (1.005-1.025) Urine Protein Negative (NEG/TRACE) mg/dL Urine Glucose (UA) Negative (NEGATIVE) mg/dL Urine Ketones Negative (NEGATIVE) mg/dL Urine Occult Blood Negative (NEGATIVE) Urine Nitrite Negative (NEGATIVE) Urine Bilirubin Negative (NEGATIVE) Urine Urobilinogen 0.2 (0.2-1.0) EU/dL Ur Leukocyte Esterase Small A (NEGATIVE) Urine RBC 0-2 (0-2) #/HPF Urine WBC 2-5 A (NONE SEEN) #/HPF Ur Squamous Epith Cells Rare (NONE/RARE) #/LPF Urine Crystals None seen (None Seen) #/HPF Urine Bacteria Trace A (NONE SEEN) #/HPF Urine Casts None seen (NONE SEEN) #/LPF Urine Mucus Small A (NONE SEEN) Discharge Plan Discharge Chief Complaint: Abdominal Pain Clinical Impression: Left lower quadrant abdominal pain affecting in second trimester Patient Disposition: Home, Self-Care Time of Disposition Decision: 20:17 Condition: Good Mode of Transportation: Private Vehicle Print Language: Arabic Instructions: Abdominal Pain in (ED) Referrals: MO COHEN [Primary Care Provider] - 1 week Herber Coto DO [Physician] - 1 week Discharge Date/Time: 01/13/24 20:24
[2024-01-13] MEDS: ACETAMINOPHEN 325 MG TABLET 650 MG PO (20:07)
[2024-01-13 20:12] VITALS: O2SAT 98
== END 2024-01-13 20:24 | disposition home or self-care (01) ==
PROVIDERS: Emergency Medicine; Emergency Provider Emergency Medicine; PCP Family Medicine
DX: O26.892 Other specified pregnancy related conditions, second trimester (principal); R10.32 Left lower quadrant pain; Z3A.16 16 weeks gestation of pregnancy; Z79.82 Long term (current) use of aspirin
CPT/HCPCS: 76815; 81001; 99284

== ENCOUNTER 2024-01-22 08:29 | Outpatient (OUT) | payer BC, MEDICAID, SELFPAY ==
--- OUTSIDE RECORDS SUMMARY | 2024-01-22 08:36 | XMS_ITS | CCD ---
Author Organization [facility] Care Team Providers Care Program Director [employer] Name Role Phone MILTON RENEEISH R Referring [...] ÁNGEL Attending Unavailable KIEPERT, ÁNGEL Admitting Unavailable GLENDALE, DR DEANNA [employer] Consult[employer] Unavailable PAY ., [...] Mo Coleman MD Primary Care Provider Kylee SILVERMAN, Tori Unavailable Tony Gr NP R Unavailable [phone] MD Mo Coleman Primary Care Provider HEATHER Gr Attending Provider [phone] Tony Gr Attending Unavailable Tony Gr Admitting Unavailable Mo Coleman Primary Care Unavailable TONY GR Attending Unavailable TORI MARTINEZ Attending Unavailable TORI MARTINEZ Attending Unavailable TRACILACY Attending Unavailable TORI MARTINEZ Attending Unavailable Allergies Allergy Classification Reported Allergen(s) Allergy Type Date of Onset Reaction(s) Facility (1 source) Cefuroxime Drug Allergy 04-04-20 22 [facility] (2 sources) Ciprofloxacin Drug Allergy 04-03-20 16 [facility] (2 sources) Doxycycline Drug Allergy 05-20-19 21 vomiting [facility] (1 source) Flupenthixol Drug Allergy 04-04-20 22 [facility] (2 sources) Cefuroxime Drug Allergy 05-20-[address] [facility] (1 source) Ciprofloxacin Drug Allergy 09-02-[address] [facility] (1 source) Ciprofloxacin Drug Allergy 09-02-19 23 Shortness of breath [facility] (1 source) cloNIDine Drug Allergy 03-14-[address] [facility] (1 source) cloNIDine Drug Allergy 09-02-19 23 [facility] (1 source) Doxycycline Drug Allergy 09-02-19 23 [facility] (1 source) Gluten Propensity to adverse reactions 11-11-19 19 [facility] (1 source) Lactose (non-medical use) Allergy to substance 09-02-19 23 [facility] (1 source) Lactose (non-medical use) Drug Intolerance 11-11-19 19 [facility] (1 source) Octacosanol Drug Intolerance 11-11-19 19 [facility] (1 source) Other Allergy to substance 11-11-19 19 [facility] (1 source) Silver Allergy to substance 09-02-19 23 [facility] (1 source) Wound Dressing Adhesive Drug Allergy 09-02-19 23 [facility] (1 source) Cefuroxime Drug Allergy 05-20-19 21 [facility] (1 source) Ciprofloxacin Drug Allergy 05-20-19 21 [facility] (1 source) Doxycycline Drug Allergy 05-20-19 21 [facility] Medications Current Medications Medication Drug Class(es) Dates Sig (Normalized) Sig (Original) [id number] 200 actuat albuterol 0.09 mg/actuat metered dose [...] Detected Not detected Normal Not Detecte T krystina On [facility] Comment on above: Result Comment: This is a duplicate RP2.1 COVID (PCR) result to be used for statistical tracking purpose only. PERFORMED BY: [facility] [address] [place] [address] PATHOLOGIST GEOLOGICAL AIDE CATY NEELY M.D. Performed By: #### R RODGER PANEL UPP., BIOFIRECOVNOTDE #### [facility] [address] COVID-19 Detected/Not Detect edOrdered By: Tony Gr on 07-13-2023 SARS-CoV-2 (COVID-19) RNA JUAN+non-probe Ql (Nph) Not detected Not Detecte [facility] Comment on above: This is a duplicate [...] Influenza A H3 Blank Space PERFORMED BY: [facility] [address] [place] [address] PATHOLOGIST GEOLOGICAL AIDE CATY NEELY M.D. Normal The [facility] Comment on above: Performed By: #### R RODGER PANEL UPP., BIOFIRECOVNOTDE #### [facility] [address] Respiratory pathogens DNA an d RNA panel - Nasopharynx by JUAN with non-probe detectionOrdered By: Tony Gr on 07-13-2023 Respiratory pathogens DNA and RNA panel JUAN+non-probe (Nph) [facility] CBC AUTO DIFFon 06-25-2022 BASO # 0.0 103/ul Normal 0.0-0.1 [facility] Comment on above: Performed By: #### C BC #### [facility] [address] [place] [address] Dr. Garland Kohli Basophils/100 WBC (Bld) 0.4 % Normal 0.2-2.0 [facility] Comment on above: Performed By: #### C BC #### [facility] [address] [place] [address] Dr. Garland Kohli EO # 0.1 103/ul Normal 0.0-0.7 [facility] Comment on above: Performed By: #### C BC #### [facility] [address] [address] [address] Garland Kohli Eosinophils/100 WBC (Bld) 0.9 % Normal 0.9-7.0 [facility] Comment on above: Performed By: #### C BC #### [facility] [address] [place] [address] Dr. Garland Kohli Erythrocyte distribution width (RBC) [Ratio] 12.4 % Normal 11.0-15.0 [facility] Comment on above: Performed By: #### C BC #### [facility] [address] [place] [address] Dr. Garland Kohli Hematocrit (Bld) [Volume fraction] 31.4 % Critically low 36.0-48.0 [facility] Comment on above: Performed By: #### C BC #### [facility] [address] [address] [address] Garland Kohli Hemoglobin (Bld) [Mass/Vol] 10.4 g/dL Critically low 12.0-16.0 [facility] Comment on above: Performed By: #### C BC #### [facility] [address] [address] [address] Garland Kohli IG # 0.04 10e3/ul Critically high 0.00-0.03 [facility] Comment on above: Performed By: #### C BC #### [facility] [address] [place] [address] Dr. Garland Kohli IG % 0.4 % Normal 0.0-0.5 [facility] Comment on above: Performed By: #### C BC #### [facility] [address] [address] [address] Garland Kohli LYMPH # 2.0 103/ul Normal 1.2-3.8 [facility] Comment on above: Performed By: #### C BC #### [facility] [address] [place] [address] Dr. Garland Kohli Lymphocytes/100 WBC (Bld) 22.1 % Normal 20.5-60.0 [facility] Comment on above: Performed By: #### C BC #### [facility] [address] [place] [address] Dr. Garland Kohli MANUAL DIFF REQ NO Normal [facility] Comment on above: Performed By: #### C BC #### [facility] [address] [address] [address] Garland Kohli MCH (RBC) [Entitic mass] 30.1 pg Normal 26.7-34.0 [facility] Comment on above: Performed By: #### C BC #### [facility] [address] [place] [address] Dr. Garland Kohli MCHC (RBC) [Mass/Vol] 33.1 g/dL Normal 29.9-35.2 [facility] Comment on above: Performed By: #### C BC #### [facility] [address] [place] [address] Dr. Garland Kohli MCV (RBC) [Entitic vol] 91.0 fL Normal 81.0-99.0 [facility] Comment on above: Performed By: #### C BC #### [facility] [address] [place] [address] Dr. Garland Kohli MONO # 0.8 103/ul Normal 0.3-0.8 [facility] Comment on above: Performed By: #### C BC #### [facility] [address] [place] [address] Dr. Garland Kohli Monocytes/100 WBC (Bld) 8.8 % Normal 1.7-12.0 [facility] Comment on above: Performed By: #### C BC #### [facility] [address] [place] [address] Dr. Garland Kohli NEUT # 6.0 103/ul Normal 1.4-6.5 [facility] Comment on above: Performed By: #### C BC #### [facility] [address] [place] [address] Dr. Garland Kohli Neutrophils/100 WBC (Bld) 67.4 % Normal 43.0-75.0 [facility] Comment on above: Performed By: #### C BC #### [facility] [address] [place] [address] Dr. Garland Kohli Platelet mean volume (Bld) [Entitic vol] 12.0 fL Normal 9.5-13.5 [facility] Comment on above: Performed By: #### C BC #### [facility] [address] [place] [address] Dr. Garland Kohli PLT 151 103/ul Normal 150-450 [facility] Comment on above: Performed By: #### C BC #### [facility] [address] [place] [address] Dr. Garland Kohli RBC 3.45 106/ul Critically low 4.20-5.40 [facility] Comment on above: Performed By: #### C BC #### [facility] [address] [address] [address] Garland Kohli WBC 8.9 103/ul Normal 4.0-11.0 [facility] Comment on above: Performed By: #### C BC #### [facility] [address] [address] [address] Garland Kohli CBC AUTO DIFFon 06-23-2022 BASO # 0.0 103/ul Normal 0.0-0.1 [facility] Comment on above: Performed By: #### C BC #### [facility] [address] [address] [address] Garland Kohli Basophils/100 WBC (Bld) 0.4 % Normal 0.2-2.0 [facility] Comment on above: Performed By: #### C BC #### [facility] [address] [address] [address] Garland Kohli EO # 0.1 103/ul Normal 0.0-0.7 [facility] Comment on above: Performed By: #### C BC #### [facility] [address] [address] [address] Garland Kohil Eosinophils/100 WBC (Bld) 0.8 % Critically low 0.9-7.0 [facility] Comment on above: Performed By: #### C BC #### [facility] [address] [address] [address] Garland Kohli Erythrocyte distribution width (RBC) [Ratio] 12.4 % Normal 11.0-15.0 [facility] Comment on above: Performed By: #### C BC #### [facility] [address] [place] [address] Dr. Garland Kohli Hematocrit (Bld) [Volume fraction] 34.5 % Critically low 36.0-48.0 [facility] Comment on above: Performed By: #### C BC #### [facility] [address] [address] [address] Garland Kohli Hemoglobin (Bld) [Mass/Vol] 11.6 g/dL Critically low 12.0-16.0 [facility] Comment on above: Performed By: #### C BC #### [facility] [address] [place] [address] Dr. Garland Kohli IG # 0.04 10e3/ul Critically high 0.00-0.03 [facility] Comment on above: Performed By: #### C BC #### [facility] [address] [place] [address] Dr. Garland Kohli IG % 0.5 % Normal 0.0-0.5 [facility] Comment on above: Performed By: #### C BC #### [facility] [address] [place] [address] Dr. Garland Kohli LYMPH # 1.3 103/ul Normal 1.2-3.8 [facility] Comment on above: Performed By: #### C BC #### [facility] [address] [place] [address] Dr. Garland Kohli Lymphocytes/100 WBC (Bld) 17.6 % Critically low 20.5-60.0 [facility] Comment on above: Performed By: #### C BC #### [facility] [address] [place] [address] Dr. Garland Kohli MANUAL DIFF REQ NO Normal [facility] Comment on above: Performed By: #### C BC #### [facility] [address] [place] [address] Dr. Garland Kohli MCH (RBC) [Entitic mass] 29.6 pg Normal 26.7-34.0 [facility] Comment on above: Performed By: #### C BC #### [facility] [address] [place] [address] Dr. Garland Kohli MCHC (RBC) [Mass/Vol] 33.6 g/dL Normal 29.9-35.2 [facility] Comment on above: Performed By: #### C BC #### [facility] [address] [place] [address] Dr. Garland Kohli MCV (RBC) [Entitic vol] 88.0 fL Normal 81.0-99.0 [facility] Comment on above: Performed By: #### C BC #### [facility] [address] [address] [address] Garland Kohli MONO # 0.9 103/ul Critically high 0.3-0.8 [facility] Comment on above: Performed By: #### C BC #### [facility] [address] [address] [address] Garland Kohli Monocytes/100 WBC (Bld) 11.7 % Normal 1.7-12.0 [facility] Comment on above: Performed By: #### C BC #### [facility] [address] [address] [address] Garland Kohli NEUT # 5.1 103/ul Normal 1.4-6.5 [facility] Comment on above: Performed By: #### C BC #### [facility] [address] [place] [address] Dr. Garland Kohli Neutrophils/100 WBC (Bld) 69.0 % Normal 43.0-75.0 [facility] Comment on above: Performed By: #### C BC #### [facility] [address] [address] [address] Garland Kohli Platelet mean volume (Bld) [Entitic vol] 12.1 fL Normal 9.5-13.5 [facility] Comment on above: Performed By: #### C BC #### [facility] [address] [address] [address] Garland Kohli PLT 193 103/ul Normal 150-450 [facility] Comment on above: Performed By: #### C BC #### [facility] [address] [address] [address] Garland Kohli RBC 3.92 106/ul Critically low 4.20-5.40 [facility] Comment on above: Performed By: #### C BC #### [facility] [address] [address] [address] Garland Kohli WBC 7.4 103/ul Normal 4.0-11.0 [facility] Comment on above: Performed By: #### C BC #### [facility] [address] [address] [address] Garland Kohli DRUG SCREEN RAPID (URINE)on 06-23-2022 AMP Negative Normal NEGATIVE [facility] Comment on above: Performed By: #### D RUGRPD #### [facility] [address] [address] [address] Garland Kohli BAR Negative Normal NEGATIVE [facility] Comment on above: Performed By: #### D RUGRPD #### [facility] [address] [address] [address] Garland Kohli BUP Negative Normal NEGATIVE [facility] Comment on above: Performed By: #### D RUGRPD #### [facility] [address] [place] [address] Dr. Garland Kohli BZO Negative Normal NEGATIVE [facility] Comment on above: Performed By: #### D RUGRPD #### [facility] [address] [place] [address] Dr. Garland Kohli JUANI Negative Normal NEGATIVE [facility] Comment on above: Performed By: #### D RUGRPD #### [facility] [address] [address] [address] Garland Kohli CUT-OFFS SEE BELOW Normal [facility] Comment on above: Result Comment: AMP [...] ng/mL Performed By: #### D RUGRPD #### [facility] [address] [place] [address] Dr. Garland Kohli DRUG CUT HEADER DRUG CLASS TEST SYSTEM CUT-OFF CONCENTRATIONS ARE FOLLOWS: Normal [facility] Comment on above: Performed By: #### D RUGRPD #### [facility] [address] [address] [address] Garland Kohli mAMP Negative Normal NEGATIVE [facility] Comment on above: Performed By: #### D RUGRPD #### [facility] [address] [place] [address] Dr. Garland Kohli MTD Negative Normal NEGATIVE [facility] Comment on above: Performed By: #### D RUGRPD #### [facility] [address] [place] [address] Dr. Garland Kohli OPI Negative Normal NEGATIVE [facility] Comment on above: Performed By: #### D RUGRPD #### [facility] [address] [place] [address] Dr. Garland Kohli OXY Negative Normal NEGATIVE [facility] Comment on above: Performed By: #### D RUGRPD #### [facility] [address] [place] [address] Dr. Garland Kohli PCP Negative Normal NEGATIVE [facility] Comment on above: Performed By: #### D RUGRPD #### [facility] [address] [place] [address] Dr. Garland Kohli PPX Negative Normal NEGATIVE [facility] Comment on above: Performed By: #### D RUGRPD #### [facility] [address] [place] [address] Dr. Garland Kohli TCA Negative Normal NEGATIVE [facility] Comment on above: Performed By: #### D RUGRPD #### [facility] [address] [place] [address] Dr. Garland Kohli THC Negative Normal NEGATIVE [facility] Comment on above: Performed By: #### D RUGRPD #### [facility] [address] [place] [address] Dr. Garland Kohli TYPE AND SCREENon 06-23-2022 TYPE AND SCREEN Negative Normal [facility] Comment on above: Performed By: #### T NS #### [facility] [address] [place] [address] Dr. Garland Kohli FREE T4on 06-07-2022 Free T4 [Mass/Vol] 0.76 ng/dL Normal 0.76-1.46 [facility] Comment on above: Performed By: #### C BC #### [facility] [address] [place] [address] Dr. Garland Kohli TSHon 06-07-2022 TSH 1.393 uIU/mL Normal 0.358-3.740 [facility] Comment on above: Performed By: #### T SH #### [facility] [address] [place] [address] Dr. Garland Kohli GROUP B STREP CULTUREon S. agalactiae Ag Ql (Unsp spec) Culture Observations: NEGATIVE FOR GROUP B STREPTOCOCCUS. Normal [facility] Comment on above: Performed By: #### C BC #### [facility] [address] [place] [address] Dr. Garland Kohli GTT 3 HR PREGon 04-16-2022 Glucose [Mass/Vol] 87 mg/dL Normal 74-106 [facility] Comment on above: Performed By: #### G TT3P #### [facility] [address] [place] [address] Dr. Garland Kohli Glucose [Mass/Vol] 148 mg/dL Normal [facility] Comment on above: Performed By: #### G TT3P #### [facility] [address] [place] [address] Dr. Garland Kohli Glucose [Mass/Vol] 128 mg/dL Normal [facility] Comment on above: Performed By: #### G TT3P #### [facility] [address] [place] [address] Dr. Garland Kohli Glucose [Mass/Vol] 105 mg/dL Normal [facility] Comment on above: Performed By: #### G TT3P #### [facility] [address] [place] [address] Dr. Garland Kohli CBC AUTO DIFFon 04-04-2022 BASO # 0.0 103/ul Normal 0.0-0.1 [facility] Comment on above: Performed By: #### G TT3P #### [facility] [address] [address] [address] Garland Kohli Basophils/100 WBC (Bld) 0.2 % Normal 0.2-2.0 [facility] Comment on above: Performed By: #### G TT3P #### [facility] [address] [address] [address] Garland Kohli EO # 0.0 103/ul Normal 0.0-0.7 [facility] Comment on above: Performed By: #### G TT3P #### [facility] [address] [place] [address] Dr. Garland Kohli Eosinophils/100 WBC (Bld) 0.4 % Critically low 0.9-7.0 [facility] Comment on above: Performed By: #### G TT3P #### [facility] [address] [place] [address] Dr. Garland Kohli Erythrocyte distribution width (RBC) [Ratio] 12.9 % Normal 11.0-15.0 [facility] Comment on above: Performed By: #### G TT3P #### [facility] [address] [place] [address] Dr. Garland Kohli Hematocrit (Bld) [Volume fraction] 32.5 % Critically low 36.0-48.0 [facility] Comment on above: Performed By: #### G TT3P #### [facility] [address] [place] [address] Dr. Garland Kohli Hemoglobin (Bld) [Mass/Vol] 11.2 g/dL Critically low 12.0-16.0 [facility] Comment on above: Performed By: #### G TT3P #### [facility] [address] [place] [address] Dr. Garland Kohli IG # 0.07 10e3/ul Critically high 0.00-0.03 [facility] Comment on above: Performed By: #### G TT3P #### [facility] [address] [place] [address] Dr. Garland Kohli IG % 0.8 % Critically high 0.0-0.5 [facility] Comment on above: Performed By: #### G TT3P #### [facility] [address] [address] [address] Garland Kohli LYMPH # 0.9 103/ul Critically low 1.2-3.8 [facility] Comment on above: Performed By: #### G TT3P #### [facility] [address] [address] [address] Garland Kohli Lymphocytes/100 WBC (Bld) 10.4 % Critically low 20.5-60.0 [facility] Comment on above: Performed By: #### G TT3P #### [facility] [address] [address] [address] Garland Kohli MANUAL DIFF REQ NO Normal [facility] Comment on above: Performed By: #### G TT3P #### [facility] [address] [place] [address] Dr. Garland Kohli MCH (RBC) [Entitic mass] 31.4 pg Normal 26.7-34.0 [facility] Comment on above: Performed By: #### G TT3P #### [facility] [address] [place] [address] Dr. Garland Kohli MCHC (RBC) [Mass/Vol] 34.5 g/dL Normal 29.9-35.2 [facility] Comment on above: Performed By: #### G TT3P #### [facility] [address] [place] [address] Dr. Garland Kohli MCV (RBC) [Entitic vol] 91.0 fL Normal 81.0-99.0 [facility] Comment on above: Performed By: #### G TT3P #### [facility] [address] [address] [address] Garland Kohli MONO # 1.1 103/ul Critically high 0.3-0.8 [facility] Comment on above: Performed By: #### G TT3P #### [facility] [address] [place] [address] Dr. Garland Kohli Monocytes/100 WBC (Bld) 12.5 % Critically high 1.7-12.0 [facility] Comment on above: Performed By: #### G TT3P #### [facility] [address] [address] [address] Garland Kohli NEUT # 6.3 103/ul Normal 1.4-6.5 [facility] Comment on above: Performed By: #### G TT3P #### [facility] [address] [address] [address] Garland Kohli Neutrophils/100 WBC (Bld) 75.7 % Critically high 43.0-75.0 [facility] Comment on above: Performed By: #### G TT3P #### [facility] [address] [address] [address] Garland Kohli Platelet mean volume (Bld) [Entitic vol] 10.5 fL Normal 9.5-13.5 [facility] Comment on above: Performed By: #### G TT3P #### [facility] [address] [address] [address] Garland Kohli PLT 181 103/ul Normal 150-450 [facility] Comment on above: Performed By: #### G TT3P #### [facility] [address] [place] [address] Dr. Garland Kohli RBC 3.57 106/ul Critically low 4.20-5.40 [facility] Comment on above: Performed By: #### G TT3P #### [facility] [address] [place] [address] Dr. Garland Kohli WBC 8.4 103/ul Normal 4.0-11.0 [facility] Comment on above: Performed By: #### G TT3P #### [facility] [address] [place] [address] Dr. Garland Kohli CTA CHEST WO W [...] by: DEANNA LINN Date: 2022-04-04 15:25 Normal [facility] PROF CHEM 8 (BAS METB)on Anion gap [Moles/Vol] 13.2 mmol/L Normal [facility] Comment on above: Performed By: #### G TT3P #### [facility] [address] [place] [address] Dr. Garland Kohli Calcium [Mass/Vol] 8.5 mg/dL Normal 8.5-10.1 [facility] Comment on above: Performed By: #### G TT3P #### [facility] [address] [place] [address] Dr. Garland Kohli Chloride [Moles/Vol] 103 mmol/L Normal 98-107 [facility] Comment on above: Performed By: #### G TT3P #### [facility] [address] [place] [address] Dr. Garland Kohli CO2 [Moles/Vol] 23.4 mmol/L Normal 21.0-32.0 [facility] Comment on above: Performed By: #### G TT3P #### [facility] [address] [address] [address] Garland Kohli Creatinine [Mass/Vol] 0.43 mg/dL Critically low 0.55-1.02 [facility] Comment on above: Performed By: #### G TT3P #### [facility] [address] [address] [address] Garland Kohli EGFR-AF TURKISH >60 Normal >=60 [facility] Comment on above: Performed By: #### G TT3P #### [facility] [address] [address] [address] Garland Kohli EGFR-NON AF TURKISH >60 Normal >=60 [facility] Comment on above: Performed By: #### G TT3P #### [facility] [address] [address] [address] Garland Kohli Glucose [Mass/Vol] 108 mg/dL Critically high 74-106 T [facility] Comment on above: Performed By: #### G TT3P #### [facility] [address] [address] [address] Garland Kohli Potassium [Moles/Vol] 3.6 mmol/L Normal 3.5-5.1 [facility] Comment on above: Performed By: #### G TT3P #### [facility] [address] [address] [address] Garland Kohli Sodium [Moles/Vol] 136 mmol/L Normal 136-145 [facility] Comment on above: Performed By: #### G TT3P #### [facility] [address] [address] [address] Garland Kohli Urea nitrogen [Mass/Vol] 5.0 mg/dL Critically low 7.0-18.0 [facility] Comment on above: Performed By: #### G TT3P #### [facility] [address] [place] [address] Dr. Garland Kohli Urea nitrogen/Creatinine [Mass ratio] 11.6 mg/mg Normal [facility] Comment on above: Performed By: #### G TT3P #### [facility] [address] [address] [address] Garland Kohli TROPONIN, HIGH SENSITIVITYon 04-04-2022 HSTROP 9.3 pg/mL Normal 4.0-51.3 [facility] Comment on above: Result Comment: CUT- OFF POINTS HAVE BEEN ESTABLISHED BASED ON THE FOURTH UNIVERSAL DEFINITIONS OF MYOCARDIAL INFARCTION. THE UPPER REFERENCE LIMIT (URL) OF TROPONIN, DEFINED THE 99TH PERCENTILE OF cTnI DISTRIBUTION IN A REFERENCE POPULATION, HAS BEEN CONFIRMED THE DECISION THRESHOLD FOR OR DIAGNOSIS. Performed By: #### G TT3P #### [facility] [address] [address] [address] Garland Kohli CBC AUTO DIFFon 03-26-2022 BASO # 0.0 103/ul Normal 0.0-0.1 [facility] Comment on above: Performed By: #### G TT3P #### [facility] [address] [place] [address] Dr. Garland Kohli Basophils/100 WBC (Bld) 0.2 % Normal 0.2-2.0 [facility] Comment on above: Performed By: #### G TT3P #### [facility] [address] [place] [address] Dr. Garland Kohli EO # 0.1 103/ul Normal 0.0-0.7 [facility] Comment on above: Performed By: #### G TT3P #### [facility] [address] [place] [address] Dr. Garland Kohli Eosinophils/100 WBC (Bld) 1.0 % Normal 0.9-7.0 [facility] Comment on above: Performed By: #### G TT3P #### [facility] [address] [place] [address] Dr. Garland Kohli Erythrocyte distribution width (RBC) [Ratio] 12.8 % Normal 11.0-15.0 [facility] Comment on above: Performed By: #### G TT3P #### [facility] [address] [place] [address] Dr. Garland Kohli Hematocrit (Bld) [Volume fraction] 36.2 % Normal 36.0-48.0 [facility] Comment on above: Performed By: #### G TT3P #### [facility] [address] [place] [address] Dr. Garland Kohli Hemoglobin (Bld) [Mass/Vol] 12.2 g/dL Normal 12.0-16.0 [facility] Comment on above: Performed By: #### G TT3P #### [facility] [address] [place] [address] Dr. Garland Kohli IG # 0.08 10e3/ul Critically high 0.00-0.03 [facility] Comment on above: Performed By: #### G TT3P #### [facility] [address] [address] [address] Garland Kohli IG % 0.9 % Critically high 0.0-0.5 [facility] Comment on above: Performed By: #### G TT3P #### [facility] [address] [address] [address] Garland Kohli LYMPH # 1.7 103/ul Normal 1.2-3.8 [facility] Comment on above: Performed By: #### G TT3P #### [facility] [address] [place] [address] Dr. Garland Kohli Lymphocytes/100 WBC (Bld) 17.8 % Critically low 20.5-60.0 [facility] Comment on above: Performed By: #### G TT3P #### [facility] [address] [place] [address] Dr. Garland Kohli MANUAL DIFF REQ NO Normal [facility] Comment on above: Performed By: #### G TT3P #### [facility] [address] [place] [address] Dr. Garland Kohli MCH (RBC) [Entitic mass] 30.7 pg Normal 26.7-34.0 [facility] Comment on above: Performed By: #### G TT3P #### [facility] [address] [place] [address] Dr. Garland Kohli MCHC (RBC) [Mass/Vol] 33.7 g/dL Normal 29.9-35.2 [facility] Comment on above: Performed By: #### G TT3P #### [facility] [address] [place] [address] Dr. Garland Kohli MCV (RBC) [Entitic vol] 91.2 fL Normal 81.0-99.0 [facility] Comment on above: Performed By: #### G TT3P #### [facility] [address] [place] [address] Dr. Garland Kohli MONO # 0.6 103/ul Normal 0.3-0.8 [facility] Comment on above: Performed By: #### G TT3P #### [facility] [address] [address] [address] Garland Kohli Monocytes/100 WBC (Bld) 6.0 % Normal 1.7-12.0 [facility] Comment on above: Performed By: #### G TT3P #### [facility] [address] [address] [address] Garland Kohli NEUT # 6.9 103/ul Critically high 1.4-6.5 [facility] Comment on above: Performed By: #### G TT3P #### [facility] [address] [address] [address] Garland Kohli Neutrophils/100 WBC (Bld) 74.1 % Normal 43.0-75.0 [facility] Comment on above: Performed By: #### G TT3P #### [facility] [address] [place] [address] Dr. Garland Kohli Platelet mean volume (Bld) [Entitic vol] 10.2 fL Normal 9.5-13.5 [facility] Comment on above: Performed By: #### G TT3P #### [facility] [address] [address] [address] Garland Kohli PLT 217 103/ul Normal 150-450 [facility] Comment on above: Performed By: #### G TT3P #### [facility] [address] [place] [address] Dr. Garland Kohli RBC 3.97 106/ul Critically low 4.20-5.40 [facility] Comment on above: Performed By: #### G TT3P #### [facility] [address] [place] [address] Dr. Garland Kohli WBC 9.3 103/ul Normal 4.0-11.0 [facility] Comment on above: Performed By: #### G TT3P #### [facility] [address] [place] [address] Dr. Garland Kohli GLUCOSE - 1HRon 03-26-2022 Glucose [Mass/Vol] 155 mg/dL Critically high 74-106 [facility] Comment on above: Performed By: #### C BC #### [facility] [address] [address] [address] Garland Kohli US PREG ANATOMY SINGLEon [...] YAAKOV TERAN Date: 2022-02-09 19:30 Normal [facility] AFP MATERNAL FOR SPINA BIFID Aon 01-29-2022 AFP MoM 0.76 Normal [facility] Comment on above: Performed By: #### G TT3P #### [facility] [address] [address] [address] Garland Kohli AFP Value 35.4 ng/mL Normal [facility] Comment on above: Performed By: #### G TT3P #### [facility] [address] [address] [address] Garland Kohli AFP, Serum for Spina Bifida Report Normal [facility] Comment on above: Performed By: #### G TT3P #### [facility] [address] [place] [address] Dr. Garland Kohli Comment Comment Normal [facility] Comment on above: Result Comment: Stanley Almodovar, Ph.D., [facility] Director . References: Available Upon Request. . Multiples Of Median Cutoffs For AFP Elevations Mark 2.5 Black 2.8 IDD 2.0 Twins 4.5 Abbreviation Definitions IDD - Insulin Dep Diabetes OSBR - Open Spina Bifida Risk . For further inquiries contact [employer] at [phone]. . This test was developed and its performance characteristics determined by [employer]. It has not been cleared or approved by the Food and Drug Administration. Performed By: #### G TT3P #### [facility] [address] [place] [address] Dr. Garland Kohli Gest Age Collection Date 18.1 weeks Normal [facility] Comment on above: Performed By: #### G TT3P #### [facility] [address] [address] [address] Garland Kohli Gestat, Age Based on Ultrasound Normal [facility] Comment on above: Result Comment: 09:4 on 11/26/2021 Recalculations are not recommended when gestational dating by LMP and ultrasound are within 10 days. Performed By: #### G TT3P #### [facility] [address] [place] [address] Dr. Garland Kohli Insulin Dep Diabetes No Normal [facility] Comment on above: Performed By: #### G TT3P #### [facility] [address] [place] [address] Dr. Garland Kohli Interpretation Comment Normal [facility] Comment on above: Result Comment: Inte [...] Customer Services to discuss available options. The [employer] recommends amniocentesis be offered to women age 35 and older. Performed By: #### G TT3P #### [facility] [address] [place] [address] Dr. Garland Kohli [age] Normal [facility] Comment on above: Performed By: #### G TT3P #### [facility] [address] [address] [address] Garland Kohli Multiple Gestation No Normal [facility] Comment on above: Performed By: #### G TT3P #### [facility] [address] [place] [address] Dr. Garland Kohli OS[place] [address] Normal [facility] Comment on above: Performed By: #### G TT3P #### [facility] [address] [place] [address] Dr. Garland Kohli PDF . [facility] Comment on above: Performed By: #### G TT3P #### [facility] [address] [place] [address] Dr. Garland Kohli Race [facility] Comment on above: Performed By: #### G TT3P #### [facility] [address] [place] [address] Dr. Garland Kohli Test Results: Negative [facility] Comment on above: Performed By: #### G TT3P #### [facility] [address] [place] [address] Dr. Garland Kohli PAP ACOG PANEL 2: 21 to 29on 01-23-2022 . . [facility] Comment on above: Performed By: #### [id number] #### [facility] [address] [place] [address] Dr. Garland Kohli Age Gdln ACOG Testing [facility] Comment on above: Performed By: #### [id number] #### [facility] [address] [place] [address] Dr. Garland Kohli DIAGNOSIS: Comment [facility] Comment on above: Result Comment: NEGA TIVE FOR INTRAEPITHELIAL LESION OR MALIGNANCY. Performed By: #### [id number] #### [facility] [address] [place] [address] Dr. Garland Kohli Methodology: Comment Normal [facility] Comment on above: Result Comment: This liquid based ThinPrep(R) pap test was screened with the use of an image guided system. Performed By: #### [id number] #### [facility] [address] [place] [address] Dr. Garland Kohli Note: Comment Normal [facility] Comment on above: Result Comment: The Pap smear is a screening test designed to aid in the detection of premalignant and malignant conditions of the uterine cervix. It is not a diagnostic procedure and should not be used as the sole means of detecting cervical cancer. Both false-positive and false-negative reports do occur. . Performed By: #### [id number] #### [facility] [address] [place] [address] Dr. Garland Kohli Performed by: Comment Normal [facility] Comment on above: Result Comment: Kelly Arreguin, Interactive Media Marketing Strategist (ASCP) Performed By: #### [id number] #### [facility] [address] [place] [address] Dr. Garland Kohli Reflex Criteria: Comment Normal [facility] Comment on above: Result Comment: The HPV DNA reflex criteria were not met with this specimen result therefore, no HPV testing was performed. . Performed By: #### [id number] #### [facility] [address] [place] [address] Dr. Garland Kohli Specimen adequacy: Comment Normal [facility] Comment on above: Result Comment: Sati sfactory for evaluation. No endocervical component is identified. Performed By: #### 4 [id number] #### [facility] [address] [place] [address] Dr. Garland Kohli CHLAMYDIA/GONOCOCCUS JUAN (SW AB/URINE/PAPon 01-20-2022 Chlamydia trachomatis, JUAN Negative Normal Negative [facility] Comment on above: Performed By: #### C BC #### [facility] [address] [place] [address] Dr. Garland Kohli Neisseria gonorrhoeae, JUAN Negative Normal Negative [facility] Comment on above: Performed By: #### C BC #### [facility] [address] [place] [address] Dr. Garland Kohli TSHon 01-04-2022 TSH 1.707 uIU/mL Normal 0.358-3.740 [facility] Comment on above: Performed By: #### G TT3P #### [facility] [address] [place] [address] Dr. Garland Kohli HEPATITIS C VIRUS AB W/ REFL EX QUANTon 12-17-2021 HCV AB <0.1 Normal 0.0-0.9 [facility] Comment on above: Performed By: #### G TT3P #### [facility] [address] [place] [address] Dr. Garland Kohli Interpretation: Comment Normal [facility] Comment on above: Result Comment: Nega tive Not infected with HCV, unless recent infection is suspected or other evidence exists to indicate HCV infection. Performed By: #### G TT3P #### [facility] [address] [place] [address] Dr. Garland Kohli CULTURE URINEon 12-15-2021 CULTURE URINE Culture Observations : GREATER THAN TWO ORGANISMS PRESENT. PLEASE RESUBMIT CLEAN CATCH MID-STREAM URINE IF CLINICALLY INDICATED. Normal [facility] Comment on above: Performed By: #### U RCX #### [facility] [address] [place] [address] Dr. Garland Kohli HEP B SURFACE ANTIGEN SCREEN on 12-15-2021 HBsAg Screen Negative Normal Negative [facility] Comment on above: Performed By: #### H BSANS #### [facility] [address] [place] [address] Dr. Garland Kohli HIV 1 AND 2 WITH REFLEXon HIV Screen 4th Generation wRfx Non-Reactive Normal Non Reactive [facility] Comment on above: Result Comment: HIV Negative HIV-1/HIV-2 antibodies and HIV-1 p24 antigen were NOT detected. There is no laboratory evidence of HIV infection. Performed By: #### H IV12 #### [facility] [address] [place] [address] Dr. Garland Kohli RPR QUANTon 12-15-2021 Rapid Plasma Reagin, Quant Non-Reactive Normal NonRea<1:1 [facility] Comment on above: Result Comment: Plea se Note: This test does not meet current guidelines for screening and diagnosis of syphilis. This test is intended for following treatment response in patients being treated for syphilis infection. To screen for syphilis infection, a reflex cascade that includes both RPR and a treponema-specific assay should be utilized, such as Treponema pallidum (Syphilis) Screening [place] (920557) or Rapid Plasma Reagin (RPR) Test With Reflex to Quantitative RPR and Confirmatory Treponema pallidum Antibodies (898852). Performed By: #### G TT3P #### [facility] [address] [place] [address] Dr. Garland Kohli RUBELLA AB IGGon 12-15-2021 Rubella Antibodies, IgG 4.72 index Normal Immune >0.99 [facility] Comment on above: Result Comment: Non- immune <0.90 Equivocal 0.90 - 0.99 Immune >0.99 Performed By: #### G TT3P #### [facility] [address] [place] [address] Dr. Garland Kohli CBC AUTO DIFFon 12-14-2021 BASO # 0.0 103/ul Normal 0.0-0.1 [facility] Comment on above: Performed By: #### C BC #### [facility] [address] [place] [address] Dr. Garland Kohli Basophils/100 WBC (Bld) 0.3 % Normal 0.2-2.0 [facility] Comment on above: Performed By: #### C BC #### [facility] [address] [place] [address] Dr. Garland Kohli EO # 0.1 103/ul Normal 0.0-0.7 [facility] Comment on above: Performed By: #### C BC #### [facility] [address] [place] [address] Dr. Garland Kohli Eosinophils/100 WBC (Bld) 0.8 % Critically low 0.9-7.0 [facility] Comment on above: Performed By: #### C BC #### [facility] [address] [place] [address] Dr. Garland Kohli Erythrocyte distribution width (RBC) [Ratio] 12.6 % Normal 11.0-15.0 [facility] Comment on above: Performed By: #### C BC #### [facility] [address] [place] [address] Dr. Garland Kohli Hematocrit (Bld) [Volume fraction] 34.3 % Critically low 36.0-48.0 [facility] Comment on above: Performed By: #### C BC #### [facility] [address] [place] [address] Dr. Garland Kohli Hemoglobin (Bld) [Mass/Vol] 11.7 g/dL Critically low 12.0-16.0 [facility] Comment on above: Performed By: #### C BC #### [facility] [address] [place] [address] Dr. Garland Kohli IG # 0.03 10e3/ul Normal 0.00-0.03 [facility] Comment on above: Performed By: #### C BC #### [facility] [address] [place] [address] Dr. Garland Kohli IG % 0.4 % Normal 0.0-0.5 [facility] Comment on above: Performed By: #### C BC #### [facility] [address] [place] [address] Dr. Garland Kohli LYMPH # 1.5 103/ul Normal 1.2-3.8 [facility] Comment on above: Performed By: #### C BC #### [facility] [address] [place] [address] Dr. Garland Kohli Lymphocytes/100 WBC (Bld) 21.1 % Normal 20.5-60.0 [facility] Comment on above: Performed By: #### C BC #### [facility] [address] [place] [address] Dr. Garland Kohli MANUAL DIFF REQ NO Normal [facility] Comment on above: Performed By: #### C BC #### [facility] [address] [place] [address] Dr. Garland Kohli MCH (RBC) [Entitic mass] 30.5 pg Normal 26.7-34.0 [facility] Comment on above: Performed By: #### C BC #### [facility] [address] [place] [address] Dr. Garland Kohli MCHC (RBC) [Mass/Vol] 34.1 g/dL Normal 29.9-35.2 [facility] Comment on above: Performed By: #### C BC #### [facility] [address] [place] [address] Dr. Garland Kohli MCV (RBC) [Entitic vol] 89.6 fL Normal 81.0-99.0 [facility] Comment on above: Performed By: #### C BC #### [facility] [address] [place] [address] Dr. Garland Kohli MONO # 0.5 103/ul Normal 0.3-0.8 [facility] Comment on above: Performed By: #### C BC #### [facility] [address] [place] [address] Dr. Garland Kohli Monocytes/100 WBC (Bld) 7.1 % Normal 1.7-12.0 [facility] Comment on above: Performed By: #### C BC #### [facility] [address] [place] [address] Dr. Garland Kohli NEUT # 5.0 103/ul Normal 1.4-6.5 [facility] Comment on above: Performed By: #### C BC #### [facility] [address] [place] [address] Dr. Garland Kohli Neutrophils/100 WBC (Bld) 70.3 % Normal 43.0-75.0 [facility] Comment on above: Performed By: #### C BC #### [facility] [address] [place] [address] Dr. Garland Kohli Platelet mean volume (Bld) [Entitic vol] 10.1 fL Normal 9.5-13.5 [facility] Comment on above: Performed By: #### C BC #### [facility] [address] [place] [address] Dr. Garland Kohli PLT 234 103/ul Normal 150-450 [facility] Comment on above: Performed By: #### C BC #### [facility] [address] [place] [address] Dr. Garland Kohli RBC 3.83 106/ul Critically low 4.20-5.40 [facility] Comment on above: Performed By: #### C BC #### [facility] [address] [place] [address] Dr. Garland Kohli WBC 7.1 103/ul Normal 4.0-11.0 [facility] Comment on above: Performed By: #### C BC #### [facility] [address] [place] [address] Dr. Garland Kohli GLYCOHEMOGLOBIN A1Con 2021 ADA RECOMMENDATION SEE BELOW Normal [facility] Comment on above: Result Comment: ADA RECOMMENDED LIMIT 4.0 - 6.0 ADA THERAPEUTIC TARGET < 7.0 ACTION SUGGESTED > 7.0 Performed By: #### A 1C #### [facility] [address] [place] [address] Dr. Garland Kohli Glucose [Mass/Vol] 103 mg/dL Normal [facility] Comment on above: Performed By: #### A 1C #### [facility] [address] [place] [address] Dr. Garland Kohli HbA1c (Bld) [Mass fraction] 5.2 % Normal 4.5-6.2 [facility] Comment on above: Performed By: #### A 1C #### [facility] [address] [place] [address] Dr. Garland Kohli MARTÍNEZ BOX TEST PT SEND OUTo n 12-14-2021 SENT TO REF LAB 12/14/21 Normal [facility] Comment on above: Performed By: #### G TT3P #### [facility] [address] [place] [address] Dr. Garland Kohli TYPE AND SCREENon 12-14-2021 TYPE AND SCREEN Negative Normal [facility] Comment on above: Performed By: #### C #### [facility] [address] [address] [address] Garland Kohli US PREG TVon 11-26-2021 [...] YAAKOV TERAN Date: 2021-11-26 18:36 Normal [facility] OPERATIVE REPORTon 9 OPERATIVE REPORT [address] [id number] OPERATIVE REPORT PATIENT NAME: JULIÁN JOHNSON : 1995 MED REC NO: [id number] ROOM: ACCOUNT NO: [id number] ADMIT DATE: 11/24/2018 PROVIDER: Mode Renee DATE [...] infiltrated into the drains, this was for alf pain control. Steri-Strips applied throughout and then bulky gauze dressing as well as surgical bra was applied. The patient was awoken, extubated, and transported to the recovery room in stable condition. Sponge, needle, and instrument counts were reported correct x2 at the end of the case. MODE RENEE [id number] Doc#: [id number] CC: Mo Coleman Normal [facility] Surgical Pathologyon 019 Surgical Pathology (NOTE) [id number] [place] [address] SURGICAL PATHOLOGY REPORT Patient Name: JULIÁN JOHNSON MR#: [id number] Specimen #[id number] Final Diagnosis SPECIMEN A : BREAST AND [...] The entire specimen weighs 453 grams. Multiple labor representative sections are submitted in five cassettes [...] also sampled in multiple different areas and labor representative sections are submitted in five cassettes for microscopic examination. Microscopic Description Specimen A : Five RICHARD glass slides are received. Microscopic examination is performed. Specimen B : Five RICHARD glass slides are received. Microscopic examination is performed. Normal [facility] Comment on above: Performed By: #### P PPES #### [facility] [address] [place] [address] Knife Sharpener: Victor Manuel Hunter DO CNOVSPon 11-18-2018 EDILBERTOOVSP Visit (SP) [facility] JULIÁN JOHNSON ([id number]) 1995 F Date Time Provider Department 11/18/18 1:00 PM MOSES MOULTON) KATHARINE During your visit today, we recorded the following information about you: Temperature Pulse Respiration Blood pressure 97.9 degrees 82/minute 18/minute 122/78 Weight Height Last Period 82.7 kg 1.6 m 10/15/18 Moses Moulton MD 11/18/2018 3:08 PM Signed PATIENT NAME: Julián Johnson CLINIC NO.: [id number] ATTENDING PHYSICIAN: Moses Moulton MD DATE OF [...] file Gets together: Not on file Attends jain service: Not on file Active member of [...] number below. Moses Moulton M.D. Hematology/Medical Oncology [place] [phone] CC: Mo Coleman MD - (Inactive), In Basket (Inactive) - User (Inactive) [address] [facility] [id number] () Mode Renee MD Referring Provider: [...] by MOSES MOULTON MD on 11/18/18 Normal [facility] PROGRESSon 11-18-2018 PROGRESS HNO ID: [id number] Author: Moses Hill) Kenney Service: ? Author Type: Physician Type: Progress Notes Filed: 11/18/2018 3:08 PM Note Text: PATIENT NAME: Julián Johnson [facility] NO.: [id number] ATTENDING PHYSICIAN: Moses Moulton MD DATE OF [...] file Gets together: Not on file Attends jain service: Not on file Active member of [...] number below. Moses Moulton M.D. Hematology/Medical Oncology [place] [phone] CC: Mo Coleman MD - (Inactive), In Basket (Inactive) - User (Inactive) [address] [place] [address] () Mode Renee MD Normal [facility] Basic Metabolic Profon 11-10 (cont.) Normal [facility] Comment on above: Result Comment: Aver age GFR for 20-29 years old: 116 mL/min/1.73sq m Chronic Kidney Disease: <60 mL/min/1.73sq m Kidney failure: <15 mL/min/1.73sq m eGFR calculated using average adult body mass. Additional eGFR calculator available at: http://www.[employer].VenueJam/multiple_crcl_2012.htm Performed By: #### C DP, BMP #### [facility] [address] [facility] [place] [address] Knife Sharpener: Victor Manuel Hunter DO Anion gap [Moles/Vol] 11 mmol/L Normal 9-17 [facility] Comment on above: Performed By: #### C FARAZ, BMP #### [facility] [address] [facility] [place] [address] Knife Sharpener: Victor Manuel Hunter DO Calcium [Mass/Vol] 9.7 mg/dL Normal 8.6-10.4 [facility] Comment on above: Performed By: #### C DP, BMP #### [facility] [address] [facility] [place] [address] Knife Sharpener: Victor Manuel Hunter DO Chloride [Moles/Vol] 102 mmol/L Normal 98-107 [facility] Comment on above: Performed By: #### C FARAZ, BMP #### [facility] [address] [facility] [place] [address] Knife Sharpener: Victor Manuel Hunter DO CO2 [Moles/Vol] 26 mmol/L Normal 20-31 [facility] Comment on above: Performed By: #### C FARAZ, BMP #### [facility] [address] [place] [address] Knife Sharpener: Fanelly, Victor Manuel, DO Creatinine [Mass/Vol] 0.49 mg/dL Low 0.50-0.90 [facility] Comment on above: Performed By: #### C DP, BMP #### [facility] [address] [place] [address] Knife Sharpener: Victor Manuel Hunter DO GFR, Amer >60 Normal >60 [facility] Comment on above: Performed By: #### C DP, BMP #### [facility] [address] [place] [address] Knife Sharpener: Victor Manuel Hunter DO GFR,non Amer >60 Normal >60 [facility] Comment on above: Performed By: #### C DP, BMP #### [facility] [address] [place] [address] Knife Sharpener: Victor Manuel Hunter DO Glucose [Mass/Vol] 88 mg/dL Normal 70-99 [facility] Comment on above: Performed By: #### C DP, BMP #### [facility] [place] [address] Knife Sharpener: Victor Manuel Hunter DO Potassium [Moles/Vol] 4.3 mmol/L Normal 3.7-5.3 [facility] Comment on above: Performed By: #### C DP, BMP #### [facility] [address] [place] [address] Knife Sharpener: Victor Manuel Hunter DO Sodium [Moles/Vol] 139 mmol/L Normal 135-144 [facility] Comment on above: Performed By: #### C DP, BMP #### [facility] [address] [place] [address] Knife Sharpener: Victor Manuel Hunter DO Urea nitrogen [Mass/Vol] 8 mg/dL Normal 6-20 [facility] Comment on above: Performed By: #### C DP, BMP #### [facility] [address] [place] [address]. [place] [address] Knife Sharpener: Victor Manuel Hunter DO BUN/CRE Ratio NOT REPORTED Normal 9-20 [facility] Comment on above: Performed By: #### C DP, BMP #### [facility] [address] [place] [address] Knife Sharpener: Victor Manuel Hunter DO Staging: NOT REPORTED Normal [facility] Comment on above: Performed By: #### C DP, BMP #### [facility] [address] [place] [address] Knife Sharpener: Victor Manuel Hunter DO CBC with Diffon 11-10-2018 Abs. Basophil 0.00 k/uL Normal 0.0-0.2 [facility] Comment on above: Performed By: #### C DP, BMP #### [facility] [address] [place] [address]. [place] [address] Knife Sharpener: Victor Manuel Hunter DO Abs.Neutrophil (Seg) 3.00 k/uL Normal 1.3-9.1 [facility] Comment on above: Performed By: #### C DP, BMP #### [facility] [address] [place] [address] Knife Sharpener: Victor Manuel Hunter DO Basophils/100 WBC (Bld) 0 % Normal 0-2 [facility] Comment on above: Performed By: #### C DP, BMP #### [facility] [address] [place] [address] Knife Sharpener: Victor Manuel Hunter DO Eosinophils (Bld) [#/Vol] 0.10 10*3/uL Normal 0.0-0.4 [facility] Comment on above: Performed By: #### C DP, BMP #### [facility] [address] [place] [address] Knife Sharpener: Victor Manuel Hunter DO Eosinophils/100 WBC (Bld) 1 % Normal 0-4 [facility] Comment on above: Performed By: #### C DP, BMP #### [facility] [address] [place] [address] Knife Sharpener: Victor Manuel Hunter DO Erythrocyte distribution width (RBC) [Ratio] 12.7 % Normal 11.5-14.9 [facility] Comment on above: Performed By: #### C DP, BMP #### [facility] [address] [place] [address] Knife Sharpener: Victor Manuel Hunter DO Hematocrit (Bld) [Volume fraction] 42.3 % Normal 36-46 [facility] Comment on above: Performed By: #### C DP, BMP #### [facility] [address] [place] [address] Knife Sharpener: Victor Manuel Hunter DO Hemoglobin (Bld) [Mass/Vol] 14.3 g/dL Normal 12.0-16.0 [facility] Comment on above: Performed By: #### C DP, BMP #### [facility] [address] [place] [address] Knife Sharpener: Victor Manuel Hunter DO Lymphocytes (Bld) [#/Vol] 1.70 10*3/uL Normal 1.0-4.8 [facility] Comment on above: Performed By: #### C DP, BMP #### [facility] [address] [place] [address]. [place] [address] Knife Sharpener: Victor Manuel Hunter DO Lymphocytes/100 WBC (Bld) 32 % Normal 24-44 [facility] Comment on above: Performed By: #### C DP, BMP #### [facility] [address] [place] [address] [place] [address] Knife Sharpener: Victor Manuel Hunter DO MCH (RBC) [Entitic mass] 30.0 pg Normal 26-34 [facility] Comment on above: Performed By: #### C DP, BMP #### [facility] [place] [address] Knife Sharpener: Victor Manuel Hunter DO MCHC (RBC) [Mass/Vol] 33.7 g/dL Normal 31-37 [facility] Comment on above: Performed By: #### C DP, BMP #### [facility] [address] [place] [address] Knife Sharpener: Victor Manuel Hunter DO MCV (RBC) [Entitic vol] 89.0 fL Normal 80-100 [facility] Comment on above: Performed By: #### C DP, BMP #### [facility] [address] [place] [address] Knife Sharpener: Victor Manuel Hunter DO Monocytes (Bld) [#/Vol] 0.60 10*3/uL Normal 0.1-1.3 [facility] Comment on above: Performed By: #### C DP, BMP #### [facility] [address] [place] [address] Knife Sharpener: Victor Manuel Hunter DO Monocytes/100 WBC (Bld) 11 % High 1-7 [facility] Comment on above: Performed By: #### C DP, BMP #### [facility] [address] [place] [address] Knife Sharpener: Victor Manuel Hunter DO Neutrophil (Seg) 56 % Normal 36-66 [facility] Comment on above: Performed By: #### C DP, BMP #### [facility] [address] [place] [address] Knife Sharpener: Victor Manuel Hunter DO Platelet mean volume (Bld) [Entitic vol] 9.4 fL Normal 6.0-12.0 [facility] Comment on above: Performed By: #### C DP, BMP #### [facility] [address] [place] [address] Knife Sharpener: Victor Manuel Hunter DO Platelets (Bld) [#/Vol] 252 10*3/uL Normal 150-450 [facility] Comment on above: Performed By: #### C DP, BMP #### [facility] [address] [place] [address] Knife Sharpener: Victor Manuel Hunter DO RBC (Bld) [#/Vol] 4.75 10*6/uL Normal 4.0-5.2 [facility] Comment on above: Performed By: #### C FARAZ, BMP #### [facility] [place] [address] Knife Sharpener: Victor Manuel Hunter DO WBC (Bld) [#/Vol] 5.3 10*3/uL Normal 3.5-11.0 [facility] Comment on above: Performed By: #### C DP, BMP #### [facility] [place] [address] Knife Sharpener: Victor Manuel Hunter DO Abs.Imm.Granulocyte NOT REPORTED Normal 0.00-0.30 [facility] Comment on above: Performed By: #### C DP, BMP #### [facility] [place] [address] Knife Sharpener: Victor Manuel Hunter DO Auto Diff Performed NOT REPORTED Normal [facility] Comment on above: Performed By: #### C DP, BMP #### [facility] [place] [address] Knife Sharpener: Victor Manuel Hunter DO Immature granulocytes (Bld) [#/Vol] NOT REPORTED Normal 0 [facility] Comment on above: Performed By: #### C DP, BMP #### [facility] [address] [facility] [place] [address] Knife Sharpener: Victor Manuel Hunter DO NRBC Automated NOT REPORTED Normal [facility] Comment on above: Performed By: #### C DP, BMP #### [facility] [address] [facility] [place] [address] Knife Sharpener: Victor Manuel Hunter DO Platelets (Bld) [#/Vol] NOT REPORTED Normal [facility] Comment on above: Performed By: #### C DP, BMP #### [facility] [address] [facility] [place] [address] Knife Sharpener: Victor Manuel Hunter DO RBC morphology finding Nom (Bld) NOT REPORTED Normal [facility] Comment on above: Performed By: #### C DP, BMP #### [facility] [address] [facility] [place] [address] Knife Sharpener: Victor Manuel Hunter DO WBC Morphology NOT REPORTED Normal [facility] Comment on above: Performed By: #### C DP, BMP #### [facility] [place] [address] Knife Sharpener: Victor Manuel Hunter DO Vital Signs Date Time Vital Sign Value Performing Clinician Alexis zavala 01-29-2022 02:06-0400 Body weight 67.[address] ZEN BREWER . [facility] Comment on above: Performed By: #### G TT3P #### [facility] [address] [place] [address] Dr. Garland Kohli Encounters Encounter Date Encounter Type Care Provider Facility Start: 01-11-2024 End: 01-11-2024 ambulatory LACY AVILES Not Available Start: 12-11-2023 End: 12-11-2023 ambulatory TONY LAUSE Not Available Start: 10-16-2023 End: 10-16-2023 ambulatory TORI WARCHOL Not Available Start: 07-17-2023 End: 07-17-2023 ambulatory TORI WARCHOL Not Available Start: 07-13-2023 End: 07-13-2023 ambulatory Tony Araceli Lause Facility:[facility] Start: 07-13-2023 End: 07-13-2023 ambulatory MD Mo Coleman Work Phone: [facility] Work Phone: Start: 07-13-2023 End: 07-13-2023 Patient encounter procedure MD Mo Coleman Work Phone: [facility] Start: 07-13-2023 End: 07-13-2023 ambulatory TONY R LAUSE Not Available Start: 06-02-2023 Refill Tori Kylee MASTER GLAZIER Work Phone: [facility] Comment on above: Attention deficit hy peractivity disorder (ADHD), combined type ([facility]) Start: 04-16-2023 End: 04-16-2023 ambulatory TORI MARTINEZ Not Available Start: 07-04-2022 End: 07-14-2022 ambulatory ÁNGEL SINHA Facility:[facility] Start: 07-01-2022 End: 07-01-2022 ambulatory ÁNGEL SINHA Facility:[facility] Start: 06-23-2022 End: 06-25-2022 Evaluation and management of inpatient MOSES MOULTON Facility:[facility] Start: 06-07-2022 End: 06-08-[address] DOCTOR MACK Facility:[facility] Start: 05-30-2022 End: 05-30-[address] ZEN RBEWER . Facility:[facility] Start: 04-16-2022 End: 04-17-2022 ambulatory [...] without abnormal findings DR ZEN BREWER . [facility] Start: 01-17-2022 End: 01-17-[address] ZEN BREWER . Facility:[facility] Start: 01-17-2022 End: 01-17-2022 Encounter for gynecological examination (general) (routine) without abnormal findings DR ZEN BREWER . Facility:[facility] Start: 01-04-2022 End: 01-05-2022 ambulatory ÁNGEL SINHA Facility:[facility] Start: 12-14-2021 End: 12-15-[address] ZEN BREWER . Facility:[facility] Start: 11-26-2021 End: 11-27-2021 ambulatory ÁNGEL SINHA Facility:[facility] Start: 11-24-2018 End: 11-24-2018 Patient encounter procedure [facility] Start: 11-10-2018 End: 11-15-2018 Patient encounter procedure [facility] Procedures Date Procedure Procedure Detail [...] MODE RENEE Start: 11-24-2018 DISCHARGE PATIENT NORMA RAINEYPTA Start: 11-24-2018 BEDREST MODE ESPINO Start: 11-24-2018 [...] Influenza vaccination Influenza Vacc ine (#1) [facility] Comment on above: Postponed from 12/26 (Patient Refused) Start: 07-17-2023 End: 07-17-2023 Patient encounter procedure 07/17/2023 8:00 AM EDT Office Visit [facility] [address] [place] [id number] Tori Martinez [employer] [address] [place] [address] [facility] Immunizations Immunization Date Immunization Notes Care Provider Fa cility 05-05-2015 tetanus toxoid, redu catherine diphtheria toxoid, and acellular pertussis vaccine, adsorbed Tori Martinez MASTER [employer] Work Phone: [facility] 02-14-2009 influenza, seasonal, injectable Tori Martinez MA[employer] Work Phone: [facility] 02-14-2009 influenza virus vacc ine, unspecified formulation Tori Kylee [employer] Work Phone: [facility] 12-12-2005 hepatitis A vaccine, unspecified formulation Tori Kylee MA[employer] Work Phone: [facility] 12-12-2005 tetanus toxoid, redu catherine diphtheria toxoid, and acellular pertussis vaccine, adsorbed Tori Jasonchol [employer] Work Phone: [facility] 11-19-1998 diphtheria, tetanus toxoids and acellular pertussis vaccine, unspecified formulation Tori Warchol [employer] Work Phone: [facility] 11-19-1998 measles, mumps and rubella virus vaccine Tori Warchol MA[employer] Work Phone: [facility] 11-19-1998 trivalent poliovirus vaccine, live, oral Tori Warchol MA[employer] Work Phone: [facility] 09-14-1995 diphtheria, tetanus toxoids and acellular pertussis vaccine, unspecified formulation Tori Warchol MA[employer] Work Phone: [facility] 09-14-1995 haemophilus influenz ae type b vaccine, conjugate unspecified formulation Tori Warchol MASTER [employer] Work Phone: [facility] 11-20-1994 DTP-Haemophilus influenzae type b conjugate vaccine Tori Warchol MA[employer] Work Phone: [facility] 11-20-1994 hepatitis B vaccine, pediatric or pediatric/adolescent dosage Tori Warchol MA[employer] Work Phone: [facility] 11-20-1994 measles, mumps and rubella virus vaccine Tori Warchol MASTER [employer] Work Phone: [facility] 11-20-1994 trivalent poliovirus vaccine, live, oral Tori Warchol MASTER [employer] Work Phone: [facility] 09-18-1994 DTP-Haemophilus influenzae type b conjugate vaccine Tori Warchol MASTER [employer] Work Phone: [facility] 09-18-1994 hepatitis B vaccine, pediatric or pediatric/adolescent dosage Tori Warchol MASTER [employer] Work Phone: [facility] 09-18-1994 trivalent poliovirus vaccine, live, oral Tori Warchol MASTER [employer] Work Phone: [facility] 1993 diphtheria, tetanus toxoids and pertussis vaccine Tori Warchol MASTER [employer] Work Phone: [facility] 1993 haemophilus influenz ae type b vaccine, conjugate unspecified formulation Tori Warchol MASTER [employer] Work Phone: [facility] 1993 hepatitis B vaccine, pediatric or pediatric/adolescent dosage Tori Warchol MASTER [employer] Work Phone: [facility] 1993 trivalent poliovirus vaccine, live, oral Tori Warchol MASTER GLAZIER Work Phone: [facility] Healthcare Payers Date Payer Category Payer Self-pay [id number] 2022 Unknown BCBS BCBS [id number] [id number] 2022-Present [phone] [address] [place] [address] [id number] 2017 Private Health Insurance [id number] 1995 Unknown [id number] 2.16.840.1.469076.3.579.2.1 76 1993 Unknown [id number] 2.16.840.1.575453.3.579.2.1 1993 Unknown [id number] 2.16.840.1.954047.3.579.2.5 93 1993 Unknown [id number] 2.16.840.1.769422.3.579.2.5 93 1993 Unknown [id number] 2.16.840.1.210688.3.579.2.5 93 1993 Unknown [id number] 2.16.840.1.760943.3.579.2.5 93 1993 Unknown [id number] 2.16.840.1.045595.3.579.2.5 93 1993 Unknown [id number] 2.16.840.1.084291.3.579.2.5 93 1993 Unknown [id number] 2.16.840.1.030261.3.579.2.5 93 1993 Unknown [id number] 2.16.840.1.021228.3.579.2.5 93 1993 Unknown [id number] 2.16.840.1.424247.3.579.2.5 93 1993 Unknown [id number] 2.16.840.1.934826.3.579.2.5 93 1993 Unknown [id number] 2.16.840.1.687900.3.579.2.5 93 1993 Unknown [id number] 2.16.840.1.400756.3.579.2.5 93 1993 Unknown [id number] 2.16.840.1.104191.3.579.2.5 93 1993 Unknown [id number] 2.16.840.1.976192.3.579.2.5 93 1993 Unknown [id number] 2.16.840.1.339449.3.579.2.1 259 1993 Unknown [id number] 2.16.840.1.924006.3.579.2.1 259 1993 Unknown [id number] 2.16840.1.978277.3.579.2.1 259 1993 Unknown [id number] 2.16.840.1.260692.3.579.2.1 259 1993 Unknown [id number] 2.16.840.1.012481.3.579.2.1 259 1993 Unknown [id number] 2.16.840.1.430508.3.579.2.1 259 1959 Self-pay [id number] 1959 Unknown [id number] 1959 Unknown [id number] 1959 Unknown [id number] Unknown [id number] 2.16.840.1.894705.3.579.2.5 93 Unknown HCAP/HFA/FAP Active [id number] Unknown [id number] 2.16.840.1.977089.3.579.2.5 31 Social History Date Type Detail Facility Start: 08-27-2016 End: 09-25-2022 Tobacco smoking status NHIS Never smoked tobacco [facility] Start: 09-25-2022 Tobacco use and exposure Smoke less tobacco non-user [facility] Start: 04-16-2023 Alcohol intake Current drinke r of alcohol (finding) [facility] Start: 01-15-2023 End: 04-16-2023 Alcohol intake [facility] Start: 01-15-2023 End: 04-16-2023 Alcohol Use [...] Start: 1995 Sex Assigned At Female [facility] Start: 09-24-2022 Gender identity Identifies as female gender (finding) [facility] Telephone encounter Note 06-04-2023 Telephone Encounter [...] Facility Evaluation note No assessment information availa [facility] Work Phone: Summary Purpose Family History No Family History Records FoundNo Family History Records FoundNo Family History Records FoundNo Family History Records FoundNo Family History Records Found Advance Directives No Advanced Directives Records Found Advance Directive Response Recorded Date/ Time Advance Directives No July 12, 2 019 12:15pm Chief Complaint and Reason for Visit Chief Complaint r06.81 r05.9 Additional Source Comments INFORMATION SOURCE (unrecogn ized section and content) DATE CREATED AUTHOR 11/18/2018 [facility] DATE CREATED AUTHOR AUTHOR'S ORGANIZ ATION 11/26/2018 [facility] DATE CREATED AUTHOR AUTHOR'S ORGANIZ ATION 09/09/2022 [facility] DATE CREATED AUTHOR AUTHOR'S ORGANIZ ATION 08/27/2023 [facility] DATE CREATED AUTHOR AUTHOR'S ORGANIZ ATION 01/13/2024 [facility] EPIC Reason for Visit (unrecogniz ed section and content) Reason Onset Date Comments Med Refill 06/02/2023 Care Teams (unrecognized sec tion and content) Program Director [employer] Relationship Specialty Start Date End Date Mo Coleman MD [address] [place] [address] PCP - General Family Medicine 09/24/22 Tori Martinez NP [address] [place] [address] Nurse Practitioner Family Medicine 09/24/22 Tony Gr NP [address] [place] [id number] Nurse Practitioner Pulmonary Disease 04/14/23 Team Status: Active Member Role Status Dates Mo Coleman MD Primary Care Provider Active Team Status: Inactive Member Role Status Dates Mo Coleman MD Primary Care Provider Active S tart: July 13, 2023 End: July 13, 2023 HEATHER Bran Attending Provider Active Start: July 13, 2023 [...] BE BASED ON THE PRIMARY CLINICAL RECORDS. [facility] [employer] provides no warranty or guarantee of the accuracy or completeness of information in this document.
[2024-01-22 09:32] LABS: Thyroid Stimulating Hormone 1.921 uIU/mL (0.358-3.740)
== END 2024-01-22 08:30 | disposition home or self-care (01) ==
LOC: LAB 08:31
PROVIDERS: PCP Family Medicine; Visit Provider Obstetrics & Gynecology
DX: E03.8 Other specified hypothyroidism (principal)
CPT/HCPCS: 36415; 84443

== ENCOUNTER 2024-02-10 19:09 | Outpatient (REF) | payer BC, SELFPAY ==
--- OUTSIDE RECORDS SUMMARY | 2024-02-10 19:11 | XMS_ITS | CCD ---
Author Organization [facility] Care Team Providers Care Preventive Maintenance Coordinator Name Role Phone MILTON RENEEISH R Referring [...] ÁNGEL Attending Unavailable KIEPERT, ÁNGEL Admitting Unavailable [place], DR DEANNA [employer] Consult[employer] Unavailable PAY ., [...] e Mo Coleman MD Primary Care Provider [phone] Kylee SILVERMAN, Tori Unavailable Tony Gr NP R Unavailable [phone] MD Mo Coleman Primary Care Provider [phone] HEATHER Gr Attending Provider Tony Gr Attending Unavailable oTny Gr Admitting Unavailable Mo Coleman Primary Care Unavailable TONY GR Attending Unavailable TORI MARTINEZ Attending Unavailable TORI MARTINEZ Attending Unavailable TRACILACY Attending Unavailable TORI MARTINEZ Attending Unavailable Allergies Allergy Classification Reported Allergen(s) Allergy Type Date of Onset Reaction(s) Facility (1 source) Cefuroxime Drug Allergy 04-04-20 22 [facility] (2 sources) Ciprofloxacin Drug Allergy 04-03-20 16 [facility] (2 sources) Doxycycline Drug Allergy 05-20-19 21 vomiting [facility] (1 source) Flupenthixol Drug Allergy 04-04-20 22 [facility] (2 sources) Cefuroxime Drug Allergy 05-20-19 21 rash [facility] (1 source) Ciprofloxacin Drug Allergy 09-02-19 23 Shortness of breath [facility] (1 source) Ciprofloxacin Drug Allergy 09-02-19 23 Shortness of breath [facility] (1 source) cloNIDine Drug Allergy 03-14-20 21 [facility] (1 source) cloNIDine Drug Allergy 09-02-19 23 [facility] (1 source) Doxycycline Drug Allergy 09-02-19 23 [facility] (1 source) Gluten Propensity to adverse reactions 11-11-19 19 [facility] (1 source) Lactose (non-medical use) Allergy to substance 09-02-19 23 [facility] (1 source) Lactose (non-medical use) Drug Intolerance 11-11-19 19 [facility] (1 source) Octacosanol Drug Intolerance 11-11-19 19 [facility] (1 source) Other Allergy to substance 11-11-19 19 [facility] (1 source) Silver Allergy to substance 09-02-19 23 [facility] (1 source) Wound Dressing Adhesive Drug Allergy 09-02-19 23 [facility] (1 source) Cefuroxime Drug Allergy 05-20-19 21 [facility] (1 source) Ciprofloxacin Drug Allergy 05-20-19 21 [facility] (1 source) Doxycycline Drug Allergy 05-20-19 21 [facility] Medications Current Medications Medication Drug Class(es) Dates Sig (Normalized) Sig (Original) [id number] 200 actuat albuterol 0.09 mg/actuat metered dose [...] for statistical tracking purpose only. PERFORMED BY: [facility] [address] [place] [address] PATHOLOGIST DREDGE HAND CATY NEELY M.D. Performed By: #### R RODGER PANEL UPP., BIOFIRECOVNOTDE #### [facility] [address] COVID-19 Detected/Not Detect edOrdered By: Tony Gr on 07-13-2023 SARS-CoV-2 (COVID-19) RNA JUAN+non-probe Ql (Nph) Not detected Not Detecte [facility] Comment on above: This is a duplicate [...] Influenza A H3 Blank Space PERFORMED BY: [facility] [address] [place] [address] PATHOLOGIST DREDGE HAND CATY NEELY M.D. Normal [facility] Comment on above: Performed By: #### R RODGER PANEL UPP., BIOFIRECOVNOTDE #### [facility] [address] Respiratory pathogens DNA an d RNA panel - Nasopharynx by JUAN with non-probe detectionOrdered By: Tony Gr on 07-13-2023 Respiratory pathogens DNA and RNA panel JUAN+non-probe (Nph) [facility] CBC AUTO DIFFon 06-25-2022 BASO # 0.0 103/ul Normal 0.0-0.1 [facility] Comment on above: Performed By: #### C BC #### [facility] [address] [place] [address] Dr. Garland Kohli Basophils/100 WBC (Bld) 0.4 % Normal 0.2-2.0 [facility] Comment on above: Performed By: #### C BC #### [facility] [address] [place] [address] Dr. Garland Kohli EO # 0.1 103/ul Normal 0.0-0.7 [facility] Comment on above: Performed By: #### C BC #### [facility] [address] [address] [address] Garland Kohli Eosinophils/100 WBC (Bld) 0.9 % Normal 0.9-7.0 [facility] Comment on above: Performed By: #### C BC #### [facility] [address] [place] [address] Dr. Garland Kohli Erythrocyte distribution width (RBC) [Ratio] 12.4 % Normal 11.0-15.0 [facility] Comment on above: Performed By: #### C BC #### [facility] [address] [place] [address] Dr. Garland Kohli Hematocrit (Bld) [Volume fraction] 31.4 % Critically low 36.0-48.0 [facility] Comment on above: Performed By: #### C BC #### [facility] [address] [address] [address] Garland Kohli Hemoglobin (Bld) [Mass/Vol] 10.4 g/dL Critically low 12.0-16.0 [facility] Comment on above: Performed By: #### C BC #### [facility] [address] [address] [address] Garland Kohli IG # 0.04 10e3/ul Critically high 0.00-0.03 [facility] Comment on above: Performed By: #### C BC #### [facility] [address] [place] [address] Dr. Garland Kohli IG % 0.4 % Normal 0.0-0.5 [facility] Comment on above: Performed By: #### C BC #### [facility] [address] [address] [address] Garland Kohli LYMPH # 2.0 103/ul Normal 1.2-3.8 [facility] Comment on above: Performed By: #### C BC #### [facility] [address] [place] [address] Dr. Garland Kohli Lymphocytes/100 WBC (Bld) 22.1 % Normal 20.5-60.0 [facility] Comment on above: Performed By: #### C BC #### [facility] [address] [place] [address] Dr. Garland Kohli MANUAL DIFF REQ NO Normal [facility] Comment on above: Performed By: #### C BC #### [facility] [address] [address] [address] Garland Kohli MCH (RBC) [Entitic mass] 30.1 pg Normal 26.7-34.0 [facility] Comment on above: Performed By: #### C BC #### [facility] [address] [place] [address] Dr. Garland Kohli MCHC (RBC) [Mass/Vol] 33.1 g/dL Normal 29.9-35.2 [facility] Comment on above: Performed By: #### C BC #### [facility] [address] [place] [address] Dr. Garland Kohli MCV (RBC) [Entitic vol] 91.0 fL Normal 81.0-99.0 [facility] Comment on above: Performed By: #### C BC #### [facility] [address] [place] [address] Dr. Garland Kohli MONO # 0.8 103/ul Normal 0.3-0.8 [facility] Comment on above: Performed By: #### C BC #### [facility] [address] [place] [address] Dr. Garland Kohli Monocytes/100 WBC (Bld) 8.8 % Normal 1.7-12.0 [facility] Comment on above: Performed By: #### C BC #### [facility] [address] [place] [address] Dr. Garland Kohli NEUT # 6.0 103/ul Normal 1.4-6.5 [facility] Comment on above: Performed By: #### C BC #### [facility] [address] [place] [address] Dr. Garland Kohli Neutrophils/100 WBC (Bld) 67.4 % Normal 43.0-75.0 [facility] Comment on above: Performed By: #### C BC #### [facility] [address] [place] [address] Dr. Garland Kohli Platelet mean volume (Bld) [Entitic vol] 12.0 fL Normal 9.5-13.5 [facility] Comment on above: Performed By: #### C BC #### [facility] [address] [place] [address] Dr. Garland Kohli PLT 151 103/ul Normal 150-450 [facility] Comment on above: Performed By: #### C BC #### [facility] [address] [place] [address] Dr. Garland Kohli RBC 3.45 106/ul Critically low 4.20-5.40 [facility] Comment on above: Performed By: #### C BC #### [facility] [address] [address] [address] Garland Kohli WBC 8.9 103/ul Normal 4.0-11.0 [facility] Comment on above: Performed By: #### C BC #### [facility] [address] [address] [address] Garland Kohli CBC AUTO DIFFon 06-23-2022 BASO # 0.0 103/ul Normal 0.0-0.1 [facility] Comment on above: Performed By: #### C BC #### [facility] [address] [address] [address] Garland Kohli Basophils/100 WBC (Bld) 0.4 % Normal 0.2-2.0 [facility] Comment on above: Performed By: #### C BC #### [facility] [address] [address] [address] Garland Kohli EO # 0.1 103/ul Normal 0.0-0.7 [facility] Comment on above: Performed By: #### C BC #### [facility] [address] [address] [address] Garland Kohli Eosinophils/100 WBC (Bld) 0.8 % Critically low 0.9-7.0 [facility] Comment on above: Performed By: #### C BC #### [facility] [address] [address] [address] Garland Kohli Erythrocyte distribution width (RBC) [Ratio] 12.4 % Normal 11.0-15.0 [facility] Comment on above: Performed By: #### C BC #### [facility] [address] [place] [address] Dr. Garland Kohli Hematocrit (Bld) [Volume fraction] 34.5 % Critically low 36.0-48.0 [facility] Comment on above: Performed By: #### C BC #### [facility] [address] [address] [address] Garland Kohli Hemoglobin (Bld) [Mass/Vol] 11.6 g/dL Critically low 12.0-16.0 [facility] Comment on above: Performed By: #### C BC #### [facility] [address] [place] [address] Dr. Garland Kohli IG # 0.04 10e3/ul Critically high 0.00-0.03 [facility] Comment on above: Performed By: #### C BC #### [facility] [address] [place] [address] Dr. Garland Kohli IG % 0.5 % Normal 0.0-0.5 [facility] Comment on above: Performed By: #### C BC #### [facility] [address] [place] [address] Dr. Garland Kohli LYMPH # 1.3 103/ul Normal 1.2-3.8 [facility] Comment on above: Performed By: #### C BC #### [facility] [address] [place] [address] Dr. Garland Kohli Lymphocytes/100 WBC (Bld) 17.6 % Critically low 20.5-60.0 [facility] Comment on above: Performed By: #### C BC #### [facility] [address] [place] [address] Dr. Garland Kohli MANUAL DIFF REQ NO Normal [facility] Comment on above: Performed By: #### C BC #### [facility] [address] [place] [address] Dr. Garland Kohli MCH (RBC) [Entitic mass] 29.6 pg Normal 26.7-34.0 [facility] Comment on above: Performed By: #### C BC #### [facility] [address] [place] [address] Dr. Garland Kohli MCHC (RBC) [Mass/Vol] 33.6 g/dL Normal 29.9-35.2 [facility] Comment on above: Performed By: #### C BC #### [facility] [address] [place] [address] Dr. Garland Kohli MCV (RBC) [Entitic vol] 88.0 fL Normal 81.0-99.0 [facility] Comment on above: Performed By: #### C BC #### [facility] [address] [address] [address] Garland Kohli MONO # 0.9 103/ul Critically high 0.3-0.8 [facility] Comment on above: Performed By: #### C BC #### [facility] [address] [address] [address] Garland Kohli Monocytes/100 WBC (Bld) 11.7 % Normal 1.7-12.0 [facility] Comment on above: Performed By: #### C BC #### [facility] [address] [address] [address] Garland Kohli NEUT # 5.1 103/ul Normal 1.4-6.5 [facility] Comment on above: Performed By: #### C BC #### [facility] [address] [place] [address] Dr. Garland Kohli Neutrophils/100 WBC (Bld) 69.0 % Normal 43.0-75.0 [facility] Comment on above: Performed By: #### C BC #### [facility] [address] [address] [address] Garland Kohli Platelet mean volume (Bld) [Entitic vol] 12.1 fL Normal 9.5-13.5 [facility] Comment on above: Performed By: #### C BC #### [facility] [address] [address] [address] Garland Kolhi PLT 193 103/ul Normal 150-450 [facility] Comment on above: Performed By: #### C BC #### [facility] [address] [address] [address] Garland Kohli RBC 3.92 106/ul Critically low 4.20-5.40 [facility] Comment on above: Performed By: #### C BC #### [facility] [address] [address] [address] Garland Kohli WBC 7.4 103/ul Normal 4.0-11.0 [facility] Comment on above: Performed By: #### C BC #### [facility] [address] [address] [address] Garland Kohli DRUG SCREEN RAPID (URINE)on 06-23-2022 AMP Negative Normal NEGATIVE [facility] Comment on above: Performed By: #### D RUGRPD #### [facility] [address] [address] [address] Garland Kohli BAR Negative Normal NEGATIVE [facility] Comment on above: Performed By: #### D RUGRPD #### [facility] [address] [address] [address] Garland Kohli BUP Negative Normal NEGATIVE [facility] Comment on above: Performed By: #### D RUGRPD #### [facility] [address] [place] [address] Dr. Garland Kohli BZO Negative Normal NEGATIVE [facility] Comment on above: Performed By: #### D RUGRPD #### [facility] [address] [place] [address] Dr. Garland Kohli JUANI Negative Normal NEGATIVE [facility] Comment on above: Performed By: #### D RUGRPD #### [facility] [address] [address] [address] Garland Kohli CUT-OFFS SEE BELOW Normal [facility] Comment on above: Result Comment: [...] ng/mL Performed By: #### D RUGRPD #### [facility] [address] [place] [address] Dr. Garland Kohli DRUG CUT HEADER DRUG CLASS TEST SYSTEM CUT-OFF CONCENTRATIONS ARE FOLLOWS: Normal [facility] Comment on above: Performed By: #### D RUGRPD #### [facility] [address] [address] [address] Garland Kohli mAMP Negative Normal NEGATIVE [facility] Comment on above: Performed By: #### D RUGRPD #### [facility] [address] [place] [address] Dr. Garland Kohli MTD Negative Normal NEGATIVE [facility] Comment on above: Performed By: #### D RUGRPD #### [facility] [address] [place] [address] Dr. Garland Kohli OPI Negative Normal NEGATIVE [facility] Comment on above: Performed By: #### D RUGRPD #### [facility] [address] [place] [address] Dr. Garland Kohli OXY Negative Normal NEGATIVE [facility] Comment on above: Performed By: #### D RUGRPD #### [facility] [address] [place] [address] Dr. Garland Kohli PCP Negative Normal NEGATIVE [facility] Comment on above: Performed By: #### D RUGRPD #### [facility] [address] [place] [address] Dr. Garland Kohli PPX Negative Normal NEGATIVE [facility] Comment on above: Performed By: #### D RUGRPD #### [facility] [address] [place] [address] Dr. Garland Kohli TCA Negative Normal NEGATIVE [facility] Comment on above: Performed By: #### D RUGRPD #### [facility] [address] [place] [address] Dr. Garland Kohli THC Negative Normal NEGATIVE [facility] Comment on above: Performed By: #### D RUGRPD #### [facility] [address] [place] [address] Dr. Garland Kohli TYPE AND SCREENon 06-23-2022 TYPE AND SCREEN Negative Normal [facility] Comment on above: Performed By: #### T NS #### [facility] [address] [place] [address] Dr. Garland Kohli FREE T4on 06-07-2022 Free T4 [Mass/Vol] 0.76 ng/dL Normal 0.76-1.46 [facility] Comment on above: Performed By: #### C BC #### [facility] [address] [place] [address] Dr. Garland Kohli TSHon 06-07-2022 TSH 1.393 uIU/mL Normal 0.358-3.740 [facility] Comment on above: Performed By: #### T SH #### [facility] [address] [place] [address] Dr. Garland Kohli GROUP B STREP CULTUREon S. agalactiae Ag Ql (Unsp spec) Culture Observations: NEGATIVE FOR GROUP B STREPTOCOCCUS. Normal [facility] Comment on above: Performed By: #### C BC #### [facility] [address] [place] [address] Dr. Garland Kohli GTT 3 HR PREGon 04-16-2022 Glucose [Mass/Vol] 87 mg/dL Normal 74-106 [facility] Comment on above: Performed By: #### G TT3P #### [facility] [address] [place] [address] Dr. Garland Kohli Glucose [Mass/Vol] 148 mg/dL Normal [facility] Comment on above: Performed By: #### G TT3P #### [facility] [address] [place] [address] Dr. Garland Kohli Glucose [Mass/Vol] 128 mg/dL Normal [facility] Comment on above: Performed By: #### G TT3P #### [facility] [address] [place] [address] Dr. Garland Kohli Glucose [Mass/Vol] 105 mg/dL Normal [facility] Comment on above: Performed By: #### G TT3P #### [facility] [address] [place] [address] Dr. Garland Kohli CBC AUTO DIFFon 04-04-2022 BASO # 0.0 103/ul Normal 0.0-0.1 [facility] Comment on above: Performed By: #### G TT3P #### [facility] [address] [address] [address] Garland Kohli Basophils/100 WBC (Bld) 0.2 % Normal 0.2-2.0 [facility] Comment on above: Performed By: #### G TT3P #### [facility] [address] [address] [address] Garland Kohli EO # 0.0 103/ul Normal 0.0-0.7 [facility] Comment on above: Performed By: #### G TT3P #### [facility] [address] [place] [address] Dr. Garland Kohli Eosinophils/100 WBC (Bld) 0.4 % Critically low 0.9-7.0 [facility] Comment on above: Performed By: #### G TT3P #### [facility] [address] [place] [address] Dr. Garland Kohli Erythrocyte distribution width (RBC) [Ratio] 12.9 % Normal 11.0-15.0 [facility] Comment on above: Performed By: #### G TT3P #### [facility] [address] [place] [address] Dr. Garland Kohli Hematocrit (Bld) [Volume fraction] 32.5 % Critically low 36.0-48.0 [facility] Comment on above: Performed By: #### G TT3P #### [facility] [address] [place] [address] Dr. Garland Kohli Hemoglobin (Bld) [Mass/Vol] 11.2 g/dL Critically low 12.0-16.0 [facility] Comment on above: Performed By: #### G TT3P #### [facility] [address] [place] [address] Dr. Garland Kohli IG # 0.07 10e3/ul Critically high 0.00-0.03 [facility] Comment on above: Performed By: #### G TT3P #### [facility] [address] [place] [address] Dr. Garland Kohli IG % 0.8 % Critically high 0.0-0.5 [facility] Comment on above: Performed By: #### G TT3P #### [facility] [address] [address] [address] Garland Kohli LYMPH # 0.9 103/ul Critically low 1.2-3.8 [facility] Comment on above: Performed By: #### G TT3P #### [facility] [address] [address] [address] Garland Kohli Lymphocytes/100 WBC (Bld) 10.4 % Critically low 20.5-60.0 [facility] Comment on above: Performed By: #### G TT3P #### [facility] [address] [address] [address] Garland Kohli MANUAL DIFF REQ NO Normal [facility] Comment on above: Performed By: #### G TT3P #### [facility] [address] [place] [address] Dr. Garland Kohli MCH (RBC) [Entitic mass] 31.4 pg Normal 26.7-34.0 [facility] Comment on above: Performed By: #### G TT3P #### [facility] [address] [place] [address] Dr. Garland Kohli MCHC (RBC) [Mass/Vol] 34.5 g/dL Normal 29.9-35.2 [facility] Comment on above: Performed By: #### G TT3P #### [facility] [address] [place] [address] Dr. Garland Kohli MCV (RBC) [Entitic vol] 91.0 fL Normal 81.0-99.0 [facility] Comment on above: Performed By: #### G TT3P #### [facility] [address] [address] [address] Garland Kohli MONO # 1.1 103/ul Critically high 0.3-0.8 [facility] Comment on above: Performed By: #### G TT3P #### [facility] [address] [place] [address] Dr. Garland Kohli Monocytes/100 WBC (Bld) 12.5 % Critically high 1.7-12.0 [facility] Comment on above: Performed By: #### G TT3P #### [facility] [address] [address] [address] Garland Kohli NEUT # 6.3 103/ul Normal 1.4-6.5 [facility] Comment on above: Performed By: #### G TT3P #### [facility] [address] [address] [address] Garland Kohli Neutrophils/100 WBC (Bld) 75.7 % Critically high 43.0-75.0 [facility] Comment on above: Performed By: #### G TT3P #### [facility] Laboratory [address] [address] [address] Garland Kohli Platelet mean volume (Bld) [Entitic vol] 10.5 fL Normal 9.5-13.5 [facility] Comment on above: Performed By: #### G TT3P #### [facility] [address] [address] [address] Garland Kohli PLT 181 103/ul Normal 150-450 [facility] Comment on above: Performed By: #### G TT3P #### [facility] [address] [place] [address] Dr. Garland Kohli RBC 3.57 106/ul Critically low 4.20-5.40 [facility] Comment on above: Performed By: #### G TT3P #### [facility] [address] [place] [address] Dr. Garland Kohli WBC 8.4 103/ul Normal 4.0-11.0 [facility] Comment on above: Performed By: #### G TT3P #### [facility] [address] [place] [address] Dr. Garland Kohli CTA CHEST WO W [...] DEANNA LINN Date: 2022-04-04 15:25 Normal [facility] PROF CHEM 8 (BAS METB)on Anion gap [Moles/Vol] 13.2 mmol/L Normal [facility] Comment on above: Performed By: #### G TT3P #### [facility] [address] [place] [address] Dr. Garland Kohli Calcium [Mass/Vol] 8.5 mg/dL Normal 8.5-10.1 [facility] Comment on above: Performed By: #### G TT3P #### [facility] [address] [place] [address] Dr. Garland Kohli Chloride [Moles/Vol] 103 mmol/L Normal 98-107 [facility] Comment on above: Performed By: #### G TT3P #### [facility] [address] [place] [address] Dr. Garland Kohli CO2 [Moles/Vol] 23.4 mmol/L Normal 21.0-32.0 [facility] Comment on above: Performed By: #### G TT3P #### [facility] [address] [address] [address] Garland Kohli Creatinine [Mass/Vol] 0.43 mg/dL Critically low 0.55-1.02 [facility] Comment on above: Performed By: #### G TT3P #### [facility] [address] [address] [address] Garland Kohli EGFR-AF BERMUDIAN >60 Normal >=60 [facility] Comment on above: Performed By: #### G TT3P #### [facility] [address] [address] [address] Garland Kohli EGFR-NON AF BERMUDIAN >60 Normal >=60 [facility] Comment on above: Performed By: #### G TT3P #### [facility] [address] [address] [address] Garland Kohli Glucose [Mass/Vol] 108 mg/dL Critically high 74-106 T [facility] Comment on above: Performed By: #### G TT3P #### [facility] [address] [address] [address] Garland Kohli Potassium [Moles/Vol] 3.6 mmol/L Normal 3.5-5.1 [facility] Comment on above: Performed By: #### G TT3P #### [facility] [address] [address] [address] Garland Kohli Sodium [Moles/Vol] 136 mmol/L Normal 136-145 [facility] Comment on above: Performed By: #### G TT3P #### [facility] [address] [address] [address] Garland Kohli Urea nitrogen [Mass/Vol] 5.0 mg/dL Critically low 7.0-18.0 [facility] Comment on above: Performed By: #### G TT3P #### [facility] [address] [place] [address] Dr. Garland Kohli Urea nitrogen/Creatinine [Mass ratio] 11.6 mg/mg Normal [facility] Comment on above: Performed By: #### G TT3P #### [facility] [address] [address] [address] Garland Kohli TROPONIN, HIGH SENSITIVITYon 04-04-2022 HSTROP 9.3 pg/mL Normal 4.0-51.3 [facility] Comment on above: Result Comment: CUT- OFF POINTS HAVE BEEN ESTABLISHED BASED ON THE FOURTH UNIVERSAL DEFINITIONS OF MYOCARDIAL INFARCTION. THE UPPER REFERENCE LIMIT (URL) OF TROPONIN, DEFINED THE 99TH PERCENTILE OF cTnI DISTRIBUTION IN A REFERENCE POPULATION, HAS BEEN CONFIRMED THE DECISION THRESHOLD FOR MA DIAGNOSIS. Performed By: #### G TT3P #### [facility] [address] [address] [address] Garland Kohli CBC AUTO DIFFon 03-26-2022 BASO # 0.0 103/ul Normal 0.0-0.1 [facility] Comment on above: Performed By: #### G TT3P #### [facility] [address] [place] [address] Dr. Garland Kohli Basophils/100 WBC (Bld) 0.2 % Normal 0.2-2.0 [facility] Comment on above: Performed By: #### G TT3P #### [facility] [address] [place] [address] Dr. Garland Kohli EO # 0.1 103/ul Normal 0.0-0.7 [facility] Comment on above: Performed By: #### G TT3P #### [facility] [address] [place] [address] Dr. Garland Kohli Eosinophils/100 WBC (Bld) 1.0 % Normal 0.9-7.0 [facility] Comment on above: Performed By: #### G TT3P #### [facility] [address] [place] [address] Dr. Garland Kohli Erythrocyte distribution width (RBC) [Ratio] 12.8 % Normal 11.0-15.0 [facility] Comment on above: Performed By: #### G TT3P #### [facility] [address] [place] [address] Dr. Garland Kohli Hematocrit (Bld) [Volume fraction] 36.2 % Normal 36.0-48.0 [facility] Comment on above: Performed By: #### G TT3P #### [facility] [address] [place] [address] Dr. Garland Kohli Hemoglobin (Bld) [Mass/Vol] 12.2 g/dL Normal 12.0-16.0 [facility] Comment on above: Performed By: #### G TT3P #### [facility] [address] [place] [address] Dr. Garland Kohli IG # 0.08 10e3/ul Critically high 0.00-0.03 [facility] Comment on above: Performed By: #### G TT3P #### [facility] [address] [address] [address] Garland Kohli IG % 0.9 % Critically high 0.0-0.5 [facility] Comment on above: Performed By: #### G TT3P #### [facility] [address] [address] [address] Garland Kohli LYMPH # 1.7 103/ul Normal 1.2-3.8 [facility] Comment on above: Performed By: #### G TT3P #### [facility] [address] [place] [address] Dr. Garland Kohli Lymphocytes/100 WBC (Bld) 17.8 % Critically low 20.5-60.0 [facility] Comment on above: Performed By: #### G TT3P #### [facility] [address] [place] [address] Dr. Garland Kohli MANUAL DIFF REQ NO Normal [facility] Comment on above: Performed By: #### G TT3P #### [facility] [address] [place] [address] Dr. Garland Kohli MCH (RBC) [Entitic mass] 30.7 pg Normal 26.7-34.0 [facility] Comment on above: Performed By: #### G TT3P #### [facility] [address] [place] [address] Dr. Garland Kohli MCHC (RBC) [Mass/Vol] 33.7 g/dL Normal 29.9-35.2 [facility] Comment on above: Performed By: #### G TT3P #### [facility] [address] [place] [address] Dr. Garland Kohli MCV (RBC) [Entitic vol] 91.2 fL Normal 81.0-99.0 [facility] Comment on above: Performed By: #### G TT3P #### [facility] [address] [place] [address] Dr. Garland Kohli MONO # 0.6 103/ul Normal 0.3-0.8 [facility] Comment on above: Performed By: #### G TT3P #### [facility] [address] [address] [address] Garland Kohli Monocytes/100 WBC (Bld) 6.0 % Normal 1.7-12.0 [facility] Comment on above: Performed By: #### G TT3P #### [facility] [address] [address] [address] Garland Kohli NEUT # 6.9 103/ul Critically high 1.4-6.5 [facility] Comment on above: Performed By: #### G TT3P #### [facility] [address] [address] [address] Garland Kohli Neutrophils/100 WBC (Bld) 74.1 % Normal 43.0-75.0 [facility] Comment on above: Performed By: #### G TT3P #### [facility] [address] [place] [address] Dr. Garland Kohli Platelet mean volume (Bld) [Entitic vol] 10.2 fL Normal 9.5-13.5 [facility] Comment on above: Performed By: #### G TT3P #### [facility] [address] [address] [address] Garland Kohli PLT 217 103/ul Normal 150-450 [facility] Comment on above: Performed By: #### G TT3P #### [facility] [address] [place] [address] Dr. Garland Kohli RBC 3.97 106/ul Critically low 4.20-5.40 [facility] Comment on above: Performed By: #### G TT3P #### [facility] [address] [place] [address] Dr. Garland Kohli WBC 9.3 103/ul Normal 4.0-11.0 [facility] Comment on above: Performed By: #### G TT3P #### [facility] [address] [place] [address] Dr. Garland Kohli GLUCOSE - 1HRon 03-26-2022 Glucose [Mass/Vol] 155 mg/dL Critically high 74-106 [facility] Comment on above: Performed By: #### C BC #### [facility] [address] [address] [address] Garland Kohli US PREG ANATOMY SINGLEon [...] YAAKOV TERAN Date: 2022-02-09 19:30 Normal [facility] AFP MATERNAL FOR SPINA BIFID Aon 01-29-2022 AFP MoM 0.76 Normal [facility] Comment on above: Performed By: #### G TT3P #### [facility] [address] [address] [address] Garland Kohli AFP Value 35.4 ng/mL Normal [facility] Comment on above: Performed By: #### G TT3P #### [facility] [address] [address] [address] Garland Kohli AFP, Serum for Spina Bifida Report Normal [facility] Comment on above: Performed By: #### G TT3P #### [facility] [address] [place] [address] Dr. Garland Kohli Comment Comment Normal [facility] Comment on above: Result Comment: Stanley Almodovar, Ph.D., [facility] Director . References: Available Upon Request. . Multiples Of Median Cutoffs For AFP Elevations Mark 2.5 Black 2.8 IDD 2.0 Twins 4.5 Abbreviation Definitions IDD - Insulin Dep Diabetes OSBR - Open Spina Bifida Risk . For further inquiries contact [employer] at [phone]. . This test was developed and its performance characteristics determined by [employer]. It has not been cleared or approved by the Food and Drug Administration. Performed By: #### G TT3P #### [facility] [address] [place] [address] Dr. Garland Kohli Gest Age Collection Date 18.1 weeks Normal [facility] Comment on above: Performed By: #### G TT3P #### [facility] [address] [address] [address] Garland Kohli Gestat, Age Based on Ultrasound Normal [facility] Comment on above: Result Comment: 09:4 on 11/26/2021 Recalculations are not recommended when gestational dating by LMP and ultrasound are within 10 days. Performed By: #### G TT3P #### [facility] [address] [place] [address] Dr. Garland Kohli Insulin Dep Diabetes No Normal [facility] Comment on above: Performed By: #### G TT3P #### [facility] [address] [place] [address] Dr. Garland Kohli Interpretation Comment Normal [facility] Comment on above: Result Comment: Inte [...] Customer Services to discuss available options. The [employer] recommends amniocentesis be offered to women age 35 and older. Performed By: #### G TT3P #### [facility] [address] [place] [address] Dr. Garland Kohli [age] Normal [facility] Comment on above: Performed By: #### G TT3P #### [facility] [address] [address] [address] Garland Kohli Multiple Gestation No Normal [facility] Comment on above: Performed By: #### G TT3P #### [facility] [address] [place] [address] Dr. Garland Kohli [place] [address] Normal [facility] Comment on above: Performed By: #### G TT3P #### [facility] [address] [place] [address] Dr. Garland Kohli PDF . [facility] Comment on above: Performed By: #### G TT3P #### [facility] [address] [place] [address] Dr. Garland Kohli Race [facility] Comment on above: Performed By: #### G TT3P #### [facility] [address] [place] [address] Dr. Garland Kohli Test Results: Negative [facility] Comment on above: Performed By: #### G TT3P #### [facility] [address] [place] [address] Dr. Garland Kohli PAP ACOG PANEL 2: 21 to 29on 01-23-2022 . . [facility] Comment on above: Performed By: #### [id number] #### [facility] [address] [place] [address] Dr. Garland Kohli Age Gdln ACOG Testing [facility] Comment on above: Performed By: #### [id number] #### [facility] [address] [place] [address] Dr. Garland Kohli DIAGNOSIS: Comment [facility] Comment on above: Result Comment: NEGA TIVE FOR INTRAEPITHELIAL LESION OR MALIGNANCY. Performed By: #### [id number] #### [facility] [address] [place] [address] Dr. Garland Kohli Methodology: Comment Normal [facility] Comment on above: Result Comment: This liquid based ThinPrep(R) pap test was screened with the use of an image guided system. Performed By: #### [id number] #### [facility] [address] [place] [address] Dr. Garland Kohli Note: Comment Normal [facility] Comment on above: Result Comment: The Pap smear is a screening test designed to aid in the detection of premalignant and malignant conditions of the uterine cervix. It is not a diagnostic procedure and should not be used as the sole means of detecting cervical cancer. Both false-positive and false-negative reports do occur. . Performed By: #### [id number] #### [facility] [address] [place] [address] Dr. Garland Kohli Performed by: Comment Normal [facility] Comment on above: Result Comment: Kelly Arreguin, Rack Room Worker (ASCP) Performed By: #### [id number] #### [facility] [address] [place] [address] Dr. Garland Kohli Reflex Criteria: Comment Normal [facility] Comment on above: Result Comment: The HPV DNA reflex criteria were not met with this specimen result therefore, no HPV testing was performed. . Performed By: #### [id number] #### [facility] [address] [place] [address] Dr. Garland Kohli Specimen adequacy: Comment Normal [facility] Comment on above: Result Comment: Sati sfactory for evaluation. No endocervical component is identified. Performed By: #### [id number] #### [facility] [address] [place] [address] Dr. Garland Kohli CHLAMYDIA/GONOCOCCUS JUAN (SW AB/URINE/PAPon 01-20-2022 Chlamydia trachomatis, JUAN Negative Normal Negative [facility] Comment on above: Performed By: #### C BC #### [facility] [address] [place] [address] Dr. Garland Kohli Neisseria gonorrhoeae, JUAN Negative Normal Negative [facility] Comment on above: Performed By: #### C BC #### [facility] [address] [place] [address] Dr. Garland Kohli TSHon 01-04-2022 TSH 1.707 uIU/mL Normal 0.358-3.740 [facility] Comment on above: Performed By: #### G TT3P #### [facility] [address] [place] [address] Dr. Garland Kohli HEPATITIS C VIRUS AB W/ REFL EX QUANTon 12-17-2021 HCV AB <0.1 Normal 0.0-0.9 [facility] Comment on above: Performed By: #### G TT3P #### [facility] [address] [place] [address] Dr. Garland Kohli Interpretation: Comment Normal [facility] Comment on above: Result Comment: Nega tive Not infected with HCV, unless recent infection is suspected or other evidence exists to indicate HCV infection. Performed By: #### G TT3P #### [facility] [address] [place] [address] Dr. Garland Kohli CULTURE URINEon 12-15-2021 CULTURE URINE Culture Observations : GREATER THAN TWO ORGANISMS PRESENT. PLEASE RESUBMIT CLEAN CATCH MID-STREAM URINE IF CLINICALLY INDICATED. Normal [facility] Comment on above: Performed By: #### U RCX #### [facility] [address] [place] [address] Dr. Garland Kohli HEP B SURFACE ANTIGEN SCREEN on 12-15-2021 HBsAg Screen Negative Normal Negative [facility] Comment on above: Performed By: #### H BSANS #### [facility] [address] [place] [address] Dr. Garland Kohli HIV 1 AND 2 WITH REFLEXon HIV Screen 4th Generation wRfx Non-Reactive Normal Non Reactive [facility] Comment on above: Result Comment: HIV Negative HIV-1/HIV-2 antibodies and HIV-1 p24 antigen were NOT detected. There is no laboratory evidence of HIV infection. Performed By: #### H IV12 #### [facility] [address] [place] [address] Dr. Garland Kohli RPR QUANTon 12-15-2021 Rapid Plasma Reagin, Quant Non-Reactive Normal NonRea<1:1 [facility] Comment on above: Result Comment: Plea se Note: This test does not meet current guidelines for screening and diagnosis of syphilis. This test is intended for following treatment response in patients being treated for syphilis infection. To screen for syphilis infection, a reflex cascade that includes both RPR and a treponema-specific assay should be utilized, such as Treponema pallidum (Syphilis) Screening [place]ard (168469) or Rapid Plasma Reagin (RPR) Test With Reflex to Quantitative RPR and Confirmatory Treponema pallidum Antibodies (122395). Performed By: #### G TT3P #### [facility] [address] [place] [address] Dr. Garland Kohli RUBELLA AB IGGon 12-15-2021 Rubella Antibodies, IgG 4.72 index Normal Immune >0.99 [facility] Comment on above: Result Comment: Non- immune <0.90 Equivocal 0.90 - 0.99 Immune >0.99 Performed By: #### G TT3P #### [facility] [address] [place] [address] Dr. Garland Kohli CBC AUTO DIFFon 12-14-2021 BASO # 0.0 103/ul Normal 0.0-0.1 [facility] Comment on above: Performed By: #### C BC #### [facility] [address] [place] [address] Dr. Garland Kohli Basophils/100 WBC (Bld) 0.3 % Normal 0.2-2.0 [facility] Comment on above: Performed By: #### C BC #### [facility] [address] [place] [address] Dr. Garland Kohli EO # 0.1 103/ul Normal 0.0-0.7 [facility] Comment on above: Performed By: #### C BC #### [facility] [address] [place] [address] Dr. Garland Kohli Eosinophils/100 WBC (Bld) 0.8 % Critically low 0.9-7.0 [facility] Comment on above: Performed By: #### C BC #### [facility] [address] [place] [address] Dr. Garland Kohli Erythrocyte distribution width (RBC) [Ratio] 12.6 % Normal 11.0-15.0 [facility] Comment on above: Performed By: #### C BC #### [facility] [address] [place] [address] Dr. Garland Kohli Hematocrit (Bld) [Volume fraction] 34.3 % Critically low 36.0-48.0 [facility] Comment on above: Performed By: #### C BC #### [facility] [address] [place] [address] Dr. Garland Kohli Hemoglobin (Bld) [Mass/Vol] 11.7 g/dL Critically low 12.0-16.0 [facility] Comment on above: Performed By: #### C BC #### [facility] [address] [place] [address] Dr. Garland Kohli IG # 0.03 10e3/ul Normal 0.00-0.03 [facility] Comment on above: Performed By: #### C BC #### [facility] [address] [place] [address] Dr. Garland Kohli IG % 0.4 % Normal 0.0-0.5 [facility] Comment on above: Performed By: #### C BC #### [facility] [address] [place] [address] Dr. Garland Kohli LYMPH # 1.5 103/ul Normal 1.2-3.8 [facility] Comment on above: Performed By: #### C BC #### [facility] [address] [place] [address] Dr. Garland Kohli Lymphocytes/100 WBC (Bld) 21.1 % Normal 20.5-60.0 [facility] Comment on above: Performed By: #### C BC #### [facility] [address] [place] [address] Dr. Garland Kohli MANUAL DIFF REQ NO Normal [facility] Comment on above: Performed By: #### C BC #### [facility] [address] [place] [address] Dr. Garland Kohli MCH (RBC) [Entitic mass] 30.5 pg Normal 26.7-34.0 [facility] Comment on above: Performed By: #### C BC #### [facility] [address] [place] [address] Dr. Garland Kohli MCHC (RBC) [Mass/Vol] 34.1 g/dL Normal 29.9-35.2 [facility] Comment on above: Performed By: #### C BC #### [facility] [address] [place] [address] Dr. Garland Kohli MCV (RBC) [Entitic vol] 89.6 fL Normal 81.0-99.0 [facility] Comment on above: Performed By: #### C BC #### [facility] [address] [place] [address] Dr. Garland Kohli MONO # 0.5 103/ul Normal 0.3-0.8 [facility] Comment on above: Performed By: #### C BC #### [facility] [address] [place] [address] Dr. Garland Kohli Monocytes/100 WBC (Bld) 7.1 % Normal 1.7-12.0 [facility] Comment on above: Performed By: #### C BC #### [facility] [address] [place] [address] Dr. Garland Kohli NEUT # 5.0 103/ul Normal 1.4-6.5 [facility] Comment on above: Performed By: #### C BC #### [facility] [address] [place] [address] Dr. Garland Kohli Neutrophils/100 WBC (Bld) 70.3 % Normal 43.0-75.0 [facility] Comment on above: Performed By: #### C BC #### [facility] [address] [place] [address] Dr. Garland Kohli Platelet mean volume (Bld) [Entitic vol] 10.1 fL Normal 9.5-13.5 [facility] Comment on above: Performed By: #### C BC #### [facility] [address] [place] [address] Dr. Garland Kohli PLT 234 103/ul Normal 150-450 [facility] Comment on above: Performed By: #### C BC #### [facility] [address] [place] [address] Dr. Garland Kohli RBC 3.83 106/ul Critically low 4.20-5.40 [facility] Comment on above: Performed By: #### C BC #### [facility] [address] [place] [address] Dr. Garland Kohli WBC 7.1 103/ul Normal 4.0-11.0 [facility] Comment on above: Performed By: #### C BC #### [facility] [address] [place] [address] Dr. Garland Kohli GLYCOHEMOGLOBIN A1Con 2021 ADA RECOMMENDATION SEE BELOW Normal [facility] Comment on above: Result Comment: ADA RECOMMENDED LIMIT 4.0 - 6.0 ADA THERAPEUTIC TARGET < 7.0 ACTION SUGGESTED > 7.0 Performed By: #### A 1C #### [facility] [address] [place] [address] Dr. Garland Kohil Glucose [Mass/Vol] 103 mg/dL Normal [facility] Comment on above: Performed By: #### A 1C #### [facility] [address] [place] [address] Dr. Garland Kohli HbA1c (Bld) [Mass fraction] 5.2 % Normal 4.5-6.2 [facility] Comment on above: Performed By: #### A 1C #### [facility] [address] [place] [address] Dr. Garland Kohli MARTÍNEZ BOX TEST PT SEND OUTo n 12-14-2021 SENT TO REF LAB 12/14/21 Normal [facility] Comment on above: Performed By: #### G TT3P #### [facility] [address] [place] [address] Dr. Garland Kohli TYPE AND SCREENon 12-14-2021 TYPE AND SCREEN Negative Normal [facility] Comment on above: Performed By: #### C #### [facility] [address] [address] [address] 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 Steri-Strips applied throughout and then bulky gauze dressing as well as surgical bra was applied. The patient was awoken, extubated, and transported to the recovery room in stable condition. Sponge, needle, and instrument counts were reported correct x2 at the end of the case. MODE RENEE [id number] Doc#: [id number] CC: Mo Coleman Normal [facility] Surgical Pathologyon 019 Surgical Pathology (NOTE) [id number] [place] [address] SURGICAL PATHOLOGY REPORT Patient Name: JULIÁN JOHNSON MR#: [id number] Specimen #[id number] Final Diagnosis SPECIMEN A : BREAST AND [...] The entire specimen weighs 453 grams. Multiple parts sales representative sections are submitted in five [...] also sampled in multiple different areas and parts sales representative sections are submitted in five cassettes for microscopic examination. Microscopic Description Specimen A : Five RICHARD glass slides are received. Microscopic examination is performed. Specimen B : Five RICHARD glass slides are received. Microscopic examination is performed. Normal [facility] Comment on above: Performed By: #### P PPES #### [facility] [address] [place] [address] [employer]: Victor Manuel Hunter DO CNOVSPon 11-18-2018 EDILBERTOOVSP Visit (SP) [facility] JULIÁN JOHNSON ([id number]) 1995 F Date Time Provider Department 11/18/18 1:00 PM MOSES MOULTON) KATHARINE During your visit today, we recorded the following information about you: Temperature Pulse Respiration Blood pressure 97.9 degrees 82/minute 18/minute 122/78 Weight Height Last Period 82.7 kg 1.6 m 10/15/18 Moses Moulton MD 11/18/2018 3:08 PM Signed PATIENT NAME: Julián Johnson CLINIC NO.: [id number] ATTENDING PHYSICIAN: Moses Moulton MD DATE OF [...] file Gets together: Not on file Attends mandaen service: Not on file Active member of [...] number below. Moses Moulton M.D. Hematology/Medical Oncology [place] [phone] CC: Mo Coleman MD - (Inactive), In Basket (Inactive) - User (Inactive) [address] [facility] [address] () Mode Renee MD Referring [...] by MOSES MOULTON MD on 11/18/18 Normal [facility] PROGRESSon 11-18-2018 PROGRESS HNO ID: [id number] Author: Moses Hill) Kenney Service: ? Author Type: Physician Type: Progress Notes Filed: 11/18/2018 3:08 PM Note Text: PATIENT NAME: Julián Johnson [facility] NO.: [id number] ATTENDING PHYSICIAN: Moses Moulton MD DATE OF [...] file Gets together: Not on file Attends mandaen service: Not on file Active member of [...] Moses Moulton M.D. Hematology/Medical Oncology CC [place] [phone] CC: Mo Coleman MD - (Inactive), In Basket (Inactive) - User (Inactive) [address] [place] [address] () Mode Renee MD Normal [facility] Basic Metabolic Profon 11-10 (cont.) Normal [facility] Comment on above: Result Comment: Aver age GFR for 20-29 years old: 116 mL/min/1.73sq m Chronic Kidney Disease: <60 mL/min/1.73sq m Kidney failure: <15 mL/min/1.73sq m eGFR calculated using average adult body mass. Additional eGFR calculator available at: http://www.[employer].mymxlog/multiple_crcl_2012.htm Performed By: #### C DP, BMP #### [facility] [address] [facility] [place] [address] [employer]: Victor Manuel Hunter DO Anion gap [Moles/Vol] 11 mmol/L Normal 9-17 [facility] Comment on above: Performed By: #### C FARAZ, BMP #### [facility] [address] [facility] [place] [address] [employer]: Victor Manuel Hunter DO Calcium [Mass/Vol] 9.7 mg/dL Normal 8.6-10.4 [facility] Comment on above: Performed By: #### C DP, BMP #### [facility] [address] [facility] [place] [address] [employer]: Victor Manuel Hunter DO Chloride [Moles/Vol] 102 mmol/L Normal 98-107 [facility] Comment on above: Performed By: #### C FARAZ, BMP #### [facility] [address] [place] [employer] [facility] [place] [address] [employer]: Victor Manuel Hunter DO CO2 [Moles/Vol] 26 mmol/L Normal 20-31 [facility] Comment on above: Performed By: #### C FARAZ, BMP #### [facility] [address] [place] [address] [employer]: Fanelly, Victor Manuel, DO Creatinine [Mass/Vol] 0.49 mg/dL Low 0.50-0.90 [facility] Comment on above: Performed By: #### C DP, BMP #### [facility] [address] [place] [address] [employer]: Victor Manuel Hunter DO GFR, Amer >60 Normal >60 [facility] Comment on above: Performed By: #### C DP, BMP #### [facility] [address] [place] [address] [employer]: Victor Manuel Hunter DO GFR,non Amer >60 Normal >60 [facility] Comment on above: Performed By: #### C DP, BMP #### [facility] [address] [place] [address] [employer]: Victor Manuel Hunter DO Glucose [Mass/Vol] 88 mg/dL Normal 70-99 [facility] Comment on above: Performed By: #### C DP, BMP #### [facility] [place] [address] [employer]: Victor Manuel Hunter DO Potassium [Moles/Vol] 4.3 mmol/L Normal 3.7-5.3 [facility] Comment on above: Performed By: #### C DP, BMP #### [facility] [address] [place] [address] [employer]: Victor Manuel Hunter DO Sodium [Moles/Vol] 139 mmol/L Normal 135-144 [facility] Comment on above: Performed By: #### C DP, BMP #### [facility] [address] [place] [address] [employer]: Victor Manuel Hunter DO Urea nitrogen [Mass/Vol] 8 mg/dL Normal 6-20 [facility] Comment on above: Performed By: #### C DP, BMP #### [facility] [address] [place] [address]. [place] [address] [employer]: Victor Manuel Hunter DO BUN/CRE Ratio NOT REPORTED Normal 9-20 [facility] Comment on above: Performed By: #### C DP, BMP #### [facility] [address] [place] [address] [employer]: Victor Manuel Hunter DO Staging: NOT REPORTED Normal [facility] Comment on above: Performed By: #### C DP, BMP #### [facility] [address] [place] [address] [employer]: Victor Manuel Hunter DO CBC with Diffon 11-10-2018 Abs. Basophil 0.00 k/uL Normal 0.0-0.2 [facility] Comment on above: Performed By: #### C DP, BMP #### [facility] [address] [place] [address]. [place] [address] [employer]: Victor Manuel Hunter DO Abs.Neutrophil (Seg) 3.00 k/uL Normal 1.3-9.1 [facility] Comment on above: Performed By: #### C DP, BMP #### [facility] [address] [place] [address] [employer]: Victor Manuel Hunter DO Basophils/100 WBC (Bld) 0 % Normal 0-2 [facility] Comment on above: Performed By: #### C DP, BMP #### [facility] [address] [place] [address] [employer]: Victor Manuel Hunter DO Eosinophils (Bld) [#/Vol] 0.10 10*3/uL Normal 0.0-0.4 [facility] Comment on above: Performed By: #### C DP, BMP #### [facility] [address] [place] [address] [employer]: Victor Manuel Hunter DO Eosinophils/100 WBC (Bld) 1 % Normal 0-4 [facility] Comment on above: Performed By: #### C DP, BMP #### [facility] [address] [place] [address] [employer]: Victor Manuel Hunter DO Erythrocyte distribution width (RBC) [Ratio] 12.7 % Normal 11.5-14.9 [facility] Comment on above: Performed By: #### C DP, BMP #### [facility] [address] [place] [address] [employer]: Victor Manuel Hunter DO Hematocrit (Bld) [Volume fraction] 42.3 % Normal 36-46 [facility] Comment on above: Performed By: #### C DP, BMP #### [facility] [address] [place] [address] [employer]: Victor Manuel Hunter DO Hemoglobin (Bld) [Mass/Vol] 14.3 g/dL Normal 12.0-16.0 [facility] Comment on above: Performed By: #### C DP, BMP #### [facility] [address] [place] [address] [employer]: Victor Manuel Hunter DO Lymphocytes (Bld) [#/Vol] 1.70 10*3/uL Normal 1.0-4.8 [facility] Comment on above: Performed By: #### C DP, BMP #### [facility] [address] [place] [address]. [place] [address] [employer]: Victor Manuel Hunter DO Lymphocytes/100 WBC (Bld) 32 % Normal 24-44 [facility] Comment on above: Performed By: #### C DP, BMP #### [facility] [address] [place] [address] [place] [address] [employer]: Victor Manuel Hunter DO MCH (RBC) [Entitic mass] 30.0 pg Normal 26-34 [facility] Comment on above: Performed By: #### C DP, BMP #### [facility] [place] [address] [employer]: Victor Manuel Hunter DO MCHC (RBC) [Mass/Vol] 33.7 g/dL Normal 31-37 [facility] Comment on above: Performed By: #### C DP, BMP #### [facility] [address] [place] [address] [employer]: Victor Manuel Hunter DO MCV (RBC) [Entitic vol] 89.0 fL Normal 80-100 [facility] Comment on above: Performed By: #### C DP, BMP #### [facility] [address] [place] [address] [employer]: Victor Manuel Hunter DO Monocytes (Bld) [#/Vol] 0.60 10*3/uL Normal 0.1-1.3 [facility] Comment on above: Performed By: #### C DP, BMP #### [facility] [address] [place] [address] [employer]: Victor Manuel Hunter DO Monocytes/100 WBC (Bld) 11 % High 1-7 [facility] Comment on above: Performed By: #### C DP, BMP #### [facility] [address] [place] [address] [employer]: Victor Manuel Hunter DO Neutrophil (Seg) 56 % Normal 36-66 [facility] Comment on above: Performed By: #### C DP, BMP #### [facility] [address] [place] [address] [employer]: Victor Manuel Hunter DO Platelet mean volume (Bld) [Entitic vol] 9.4 fL Normal 6.0-12.0 [facility] Comment on above: Performed By: #### C DP, BMP #### [facility] [address] [place] [address] [employer]: Victor Manuel Hunter DO Platelets (Bld) [#/Vol] 252 10*3/uL Normal 150-450 [facility] Comment on above: Performed By: #### C DP, BMP #### [facility] [address] [place] [address] [employer]: Victor Manuel Hunter DO RBC (Bld) [#/Vol] 4.75 10*6/uL Normal 4.0-5.2 [facility] Comment on above: Performed By: #### C FARAZ, BMP #### [facility] [place] [address] [employer]: Victor Manuel Hunter DO WBC (Bld) [#/Vol] 5.3 10*3/uL Normal 3.5-11.0 [facility] Comment on above: Performed By: #### C DP, BMP #### [facility] [place] [address] [employer]: Victor Manuel Hunter DO Abs.Imm.Granulocyte NOT REPORTED Normal 0.00-0.30 [facility] Comment on above: Performed By: #### C DP, BMP #### [facility] [place] [address] [employer]: Victor Manuel Hunter DO Auto Diff Performed NOT REPORTED Normal [facility] Comment on above: Performed By: #### C DP, BMP #### [facility] [place] [address] [employer]: Victor Manuel Hunter DO Immature granulocytes (Bld) [#/Vol] NOT REPORTED Normal 0 [facility] Comment on above: Performed By: #### C DP, BMP #### [facility] [address] [facility] [place] [address] [employer]: Victor Manuel Hunter DO NRBC Automated NOT REPORTED Normal [facility] Comment on above: Performed By: #### C DP, BMP #### [facility] [address] [facility] [place] [address] [employer]: Victor Manuel Hunter DO Platelets (Bld) [#/Vol] NOT REPORTED Normal [facility] Comment on above: Performed By: #### C DP, BMP #### [facility] [address] [facility] [place] [address] [employer]: Victor Manuel Hunter DO RBC morphology finding Nom (Bld) NOT REPORTED Normal [facility] Comment on above: Performed By: #### C DP, BMP #### [facility] [address] [facility] [place] [address] [employer]: Victor Manuel Hunter DO WBC Morphology NOT REPORTED Normal [facility] Comment on above: Performed By: #### C DP, BMP #### [facility] [place] [address] [employer]: Victor Manuel Hunter DO Vital Signs Date Time Vital Sign Value Performing Clinician Alexis zavala 01-29-2022 02:06-0400 Body weight 67.[address] ZEN BREWER . [facility] Comment on above: Performed By: #### G TT3P #### [facility] [address] [place] [address] Dr. Garland Kohli Encounters Encounter Date Encounter Type Care Provider Facility Start: 01-11-2024 End: 01-11-2024 ambulatory LACY AVILES Not Available Start: 12-11-2023 End: 12-11-2023 ambulatory TONY LAUSE Not Available Start: 10-16-2023 End: 10-16-2023 ambulatory TORI WARCHOL Not Available Start: 07-17-2023 End: 07-17-2023 ambulatory TORI WARCHOL Not Available Start: 07-13-2023 End: 07-13-2023 ambulatory Tony Araceli Lause Facility:[facility] Start: 07-13-2023 End: 07-13-2023 ambulatory MD Mo Coleman Work Phone: [facility] Work Phone: Start: 07-13-2023 End: 07-13-2023 Patient encounter procedure MD Mo Coleman Work Phone: [facility] Start: 07-13-2023 End: 07-13-2023 ambulatory TONY R LAUSE Not Available Start: 06-02-2023 Refill Tori Kylee ADAPTIVE PHYSICAL EDUCATION SPECIALIST Work Phone: [facility] Comment on above: Attention deficit hy peractivity disorder (ADHD), combined type ([facility] Start: 04-16-2023 End: 04-16-2023 ambulatory TORI MARTINEZ [...] without abnormal findings DR ZEN BREWER . [facility] Start: 01-17-2022 End: 01-17-[address] ZEN BREWER . Facility:[facility] Start: 01-17-2022 End: 01-17-2022 Encounter for gynecological examination (general) (routine) without abnormal findings DR ZEN BREWER . Facility:[facility] Start: 01-04-2022 End: 01-05-2022 ambulatory ÁNGEL SINHA Facility:[facility] Start: 12-14-2021 End: 12-15-[address] ZEN BREWER . Facility[facility] Start: 11-26-2021 End: 11-27-2021 ambulatory ÁNGEL SINHA Facility:[facility] Start: 11-24-2018 End: 11-24-2018 Patient encounter procedure [facility] Start: 11-10-2018 End: 11-15-2018 Patient encounter procedure [facility] Procedures Date Procedure Procedure Detail Performing [...] 10-25-2023 Influenza vaccination Influenza Vacc ine (#1) [facility] Comment on above: Postponed from 12/26 (Patient Refused) Start: 07-17-2023 End: 07-17-2023 Patient encounter procedure 07/17/2023 8:00 AM EDT Office Visit [facility] [address] [place] [phone] oTri Martinez ADAPTIVE PHYSICAL EDUCATION SPECIALIST [address] [place] [address] [facility] Immunizations Immunization Date Immunization Notes Care Provider Fa cility 05-05-2015 tetanus toxoid, redu catherine diphtheria toxoid, and acellular pertussis vaccine, adsorbed Tori Martinez ADAPTIVE PHYSICAL EDUCATION SPECIALIST Work Phone: [facility] 02-14-2009 influenza, seasonal, injectable Tori Martinez ADAPTIVE PHYSICAL EDUCATION SPECIALIST Work Phone: [facility] 02-14-2009 influenza virus vacc ine, unspecified formulation Tori Kylee ADAPTIVE PHYSICAL EDUCATION SPECIALIST Work Phone: [facility] 12-12-2005 hepatitis A vaccine, unspecified formulation Tori Kylee ADAPTIVE PHYSICAL EDUCATION SPECIALIST Work Phone: [facility] 12-12-2005 tetanus toxoid, redu catherine diphtheria toxoid, and acellular pertussis vaccine, adsorbed Tori Jasonchol ADAPTIVE PHYSICAL EDUCATION SPECIALIST Work Phone: [facility] 11-19-1998 diphtheria, tetanus toxoids and acellular pertussis vaccine, unspecified formulation Tori Warchol ADAPTIVE PHYSICAL EDUCATION SPECIALIST Work Phone: [facility] 11-19-1998 measles, mumps and rubella virus vaccine Tori Warchol ADAPTIVE PHYSICAL EDUCATION SPECIALIST Work Phone: [facility] 11-19-1998 trivalent poliovirus vaccine, live, oral Tori Warchol ADAPTIVE PHYSICAL EDUCATION SPECIALIST Work Phone: [facility] 09-14-1995 diphtheria, tetanus toxoids and acellular pertussis vaccine, unspecified formulation Tori Warchol ADAPTIVE PHYSICAL EDUCATION SPECIALIST Work Phone: [facility] 09-14-1995 haemophilus influenz ae type b vaccine, conjugate unspecified formulation Tori Warchol ADAPTIVE PHYSICAL EDUCATION SPECIALIST Work Phone: [facility] 11-20-1994 DTP-Haemophilus influenzae type b conjugate vaccine Tori Warchol ADAPTIVE PHYSICAL EDUCATION SPECIALIST Work Phone: [facility] 11-20-1994 hepatitis B vaccine, pediatric or pediatric/adolescent dosage Tori Warchol ADAPTIVE PHYSICAL EDUCATION SPECIALIST Work Phone: [facility] 11-20-1994 measles, mumps and rubella virus vaccine Tori Warchol ADAPTIVE PHYSICAL EDUCATION SPECIALIST Work Phone: [facility] 11-20-1994 trivalent poliovirus vaccine, live, oral Tori Warchol ADAPTIVE PHYSICAL EDUCATION SPECIALIST Work Phone: [facility] 09-18-1994 DTP-Haemophilus influenzae type b conjugate vaccine Tori Warchol ADAPTIVE PHYSICAL EDUCATION SPECIALIST Work Phone: [facility] 09-18-1994 hepatitis B vaccine, pediatric or pediatric/adolescent dosage Tori Warchol ADAPTIVE PHYSICAL EDUCATION SPECIALIST Work Phone: [facility] 09-18-1994 trivalent poliovirus vaccine, live, oral Tori Warchol ADAPTIVE PHYSICAL EDUCATION SPECIALIST Work Phone: [facility] 1993 diphtheria, tetanus toxoids and pertussis vaccine Tori Warchol ADAPTIVE PHYSICAL EDUCATION SPECIALIST Work Phone: [facility] 1993 haemophilus influenz ae type b vaccine, conjugate unspecified formulation Tori Warchol ADAPTIVE PHYSICAL EDUCATION SPECIALIST Work Phone: [facility] 1993 hepatitis B vaccine, pediatric or pediatric/adolescent dosage Tori Warchol ADAPTIVE PHYSICAL EDUCATION SPECIALIST Work Phone: [facility] 1993 trivalent poliovirus vaccine, live, oral Tori Warchol ADAPTIVE PHYSICAL EDUCATION SPECIALIST Work Phone: [facility] Healthcare Payers Date Payer Category Payer Self-pay [id number] 2022 Unknown BCBS BCBS xxxxxx [id number] 2022-Present [phone] [address] [place] [address] [id number] 2017 Private Health Insurance [id number] 1995 Unknown [id number] 2.16.840.1.420756.3.579.2.1 76 1993 Unknown [id number] 2.16.840.1.010525.3.579.2.1 1993 Unknown [id number] 2.16.840.1.160025.3.579.2.5 93 1993 Unknown [id number] 2.16.840.1.760045.3.579.2.5 93 1993 Unknown [id number] 2.16.840.1.658521.3.579.2.5 93 1993 Unknown [id number] 2.16.840.1.358377.3.579.2.5 93 1993 Unknown [id number] 2.16.840.1.851605.3.579.2.5 93 1993 Unknown [id number] 2.16.840.1.174972.3.579.2.5 93 1993 Unknown [id number] 2.16.840.1.732715.3.579.2.5 93 1993 Unknown [id number] 2.16.840.1.232357.3.579.2.5 93 1993 Unknown [id number] 2.16.840.1.752893.3.579.2.5 93 1993 Unknown [id number] 2.16.840.1.611772.3.579.2.5 93 1993 Unknown [id number] 2.16.840.1.292986.3.579.2.5 93 1993 Unknown [id number] 2.16.840.1.593738.3.579.2.5 93 1993 Unknown [id number] 2.16.840.1.158038.3.579.2.5 93 1993 Unknown [id number] 2.16.840.1.042458.3.579.2.5 93 1993 Unknown [id number] 2.16.840.1.264395.3.579.2.1 259 1993 Unknown [id number] 2.16.840.1.241911.3.579.2.1 259 1993 Unknown [id number] 2.16840.1.138087.3.579.2.1 259 1993 Unknown [id number] 2.16.840.1.994758.3.579.2.1 259 1993 Unknown [id number] 2.16.840.1.752602.3.579.2.1 259 1993 Unknown [id number] 2.16.840.1.854845.3.579.2.1 259 1959 Self-pay [id number] 1959 Unknown [id number] 1959 Unknown [id number] 1959 Unknown [id number] Unknown [id number] 2.16.840.1.565976.3.579.2.5 93 Unknown HCAP/HFA/FAP Active [id number] Unknown [id number] 2.16.840.1.858391.3.579.2.5 31 Social History Date Type Detail Facility [...] Gender identity Identifies as female gender (finding) [facility] Telephone encounter Note 06-04-2023 Telephone [...] Facility Evaluation note No assessment information availa [facility] Work Phone: Summary Purpose Family History [...] section and content) DATE CREATED AUTHOR 11/18/2018 [facility] DATE CREATED AUTHOR AUTHOR'S ORGANIZ ATION 11/26/2018 [facility] DATE CREATED AUTHOR AUTHOR'S ORGANIZ ATION 09/09/2022 [facility] DATE CREATED AUTHOR AUTHOR'S ORGANIZ ATION 08/27/2023 [facility] DATE CREATED AUTHOR AUTHOR'S ORGANIZ ATION 01/13/2024 [facility] EPIC Reason for Visit (unrecogniz ed section and content) Reason Onset Date Comments Med Refill 06/02/2023 Care Teams (unrecognized sec tion and content) Preventive Maintenance Coordinator Relationship Specialty Start Date End Date Mo Coleman MD [address] [place] [address] PCP - General Family Medicine 09/24/22 Tori Martinez NP [address] [place] [address] Nurse Practitioner Family Medicine 09/24/22 Tony Gr NP [address] [place] [id number] Nurse Practitioner Pulmonary Disease 04/14/23 Team Status: Active Member Role Status Dates Mo Coleman MD Primary Care Provider Active Team Status: Inactive Member Role Status Dates Mo Cloeman MD Primary Care Provider Active S tart: [...] BE BASED ON THE PRIMARY CLINICAL RECORDS. [facility] [employer] provides no warranty or guarantee of the accuracy or completeness of information in this document.
[2024-02-17 11:14] LABS: Age Gdln ACOG Testing Note (.); HPV Aptima Negative (Negative); IGP, Aptima HPV, rfx 16/18,45 Note (.)
== END 2024-02-10 19:10 | disposition home or self-care (01) ==
LOC: LAB 19:09
PROVIDERS: PCP Family Medicine; Visit Provider Obstetrics & Gynecology
DX: Z01.419 Encounter for gynecological examination (general) (routine) without abnormal findings (principal)
CPT/HCPCS: 87624; 88175

== ENCOUNTER 2024-02-22 19:00 | Outpatient (OUT) | payer BC, SELFPAY ==
--- OUTSIDE RECORDS SUMMARY | 2024-02-22 19:05 | XMS_ITS | CCD ---
Author Organization [facility] Care Team Providers Care Bander And Cellophaner Machine Name Role Phone RNEEE, MODE R Referring Unavailable COLEMAN, CARLOS ALBERTO Primary Care Unavailable RENEE, MODE R Admitting Unavailable RENEE, MODE R Attending Unavailable COLEMAN, CARLOS ALBERTO Primary Care Unavailable KARASIK ., DR ZALDIVAR Consulting Unavailabl e KIEPERT, ÁNGEL Primary Care Unavailable KARASIK ., DR ZALDIVAR Attending Unavailabl e KARASIK ., DR ZALDIVAR Admitting Unavailabl e ZIEBINDIRA, DR YAAKOV Miranda Consulting Unavailable KIEPERT, ÁNGEL Consulting Unavailable KIEPERT, ÁNGEL Primary Care Unavailable KIEPERT, ÁNGEL Attending Unavailable KIEPERT, ÁNGEL Admitting Unavailable BURGHILL, DR DEANNA Lance Consulting Unavailable PAY ., [...] Unavailabl e KIEPERT, ÁNGEL Primary Care Unavailable NNAMDI ., DR HOUSE Attending Unavailable NNAMDI ., DR HOUSE Admitting Unavailable JAZ MOULTON Procedure Practitioner Unavailab le KARASIK ., DR ZALDIVAR Consulting Unavailabl e KUNS, DR ROE Primary Care Unavailable KARASIK ., DR ZALDIVAR Attending Unavailabl e KARASIK ., DR ZALDIVAR Admitting Unavailabl e NNAMDI ., DR HOUSE Consulting Unavailable KARAMLOUJAZ Consulting Unavailable KARASIK ., DR ZALDIVAR Procedure [...] KARASIK ., DR ZALDIVAR Admitting Unavailabl e NNAMDI ., DR HOUSE Consulting Unavailable KIEPERT, ÁNGEL Primary Care Unavailable NNAMDI ., DR HOUSE Attending Unavailable NNAMDI ., DR HOUSE Admitting Unavailable KARASIK ., [...] KARASIK ., DR ZALDIVAR Admitting Unavailabl e Carlos Alberto Coleman MD Primary Care Provider [phone] Michelle PUTTER IN, Tori Unavailable Maile PUTTER IN, Sofie R Unavailable MD Carlos Alberto Coleman Primary Care Provider HEATHER Gr Attending Provider Sofie Gr Attending Unavailable Sofie Gr Admitting Unavailable Carlos Alberto Coleman Primary Care Unavailable Maile PUTTER IN, Sofie R Unavailable Michelle PUTTER IN, Tori Unavailable SOFIE GR Attending Unavailable TORI MARTINEZ Attending Unavailable MICHELLE, TORI Attending Unavailable HERBER COOT Attending Unavailable HERBER COTO Attending Unavailable MICHELLE, TORI Attending Unavailable Allergies Allergy Classification Reported Allergen(s) Allergy Type Date of Onset Reaction(s) Facility (1 source) Cefuroxime Drug Allergy 04-04-20 22 [facility] (2 sources) Ciprofloxacin Drug Allergy 04-03-20 16 [facility] (2 sources) Doxycycline Drug Allergy 05-20-19 21 vomiting [facility] (1 source) Flupenthixol Drug Allergy 04-04-20 22 [facility] (6 sources) Cefuroxime Drug Allergy 05-20-19 21 Rash [facility] (5 sources) Ciprofloxacin Drug Allergy 09-02-19 23 Shortness of breath [facility] (5 sources) Ciprofloxacin Drug Allergy 09-02-19 23 Shortness of breath [facility] (5 sources) cloNIDine Drug Allergy 03-14-20 21 [facility] (5 sources) cloNIDine Drug Allergy 09-02-19 23 [facility] (5 sources) Doxycycline Drug Allergy 05-20-19 21 GI intolerance [facility] (5 sources) Gluten Propensity to adverse reactions 11-11-19 19 [facility] (5 sources) Lactose (non-medical use) Allergy to substance 09-02-19 23 [facility] (5 sources) Lactose (non-medical use) Drug Intolerance 11-11-19 19 [facility] (5 sources) Octacosanol Drug Intolerance 11-11-19 19 [facility] (5 sources) Other Allergy to substance 11-11-19 19 [facility] (5 sources) Silver Allergy to substance 09-02-19 23 [facility] (5 sources) Wound Dressing Adhesive Drug Allergy 09-02-19 23 [facility] (1 source) Cefuroxime Drug Allergy 05-20-19 21 [facility] (1 source) Ciprofloxacin Drug Allergy 05-20-19 21 [facility] (1 source) Doxycycline Drug Allergy 05-20-19 21 [facility] Medications Current Medications Medication Drug Class(es) Dates Sig (Normalized) Sig (Original) [id number] 200 actuat albuterol 0.09 mg/actuat metered dose inhaler (5 sources) beta2-Adrenergic Agonist Start: 10-16-2023 End: 04-13-2024 take 2 puff(s) by inhalation every four hours for wheezing albuterol HFA 90 mcg/act inhaler Indications: Moderate persistent asthma without complication (CMS/HCC) Inhale 2 puffs every 4 (four) hours if needed for shortness of breath or wheezing 18 g 5 10/16/2023 04/13/2024 Active Start: 04-16-2023 End: 07-15-2023 take 2 puff(s) [...] sulfate 5 mg extended release oral capsule (9 sources) Central Nervous System Stimulant Start: 10-23-2023 take 1 tablet by mouth once daily amphetamine-dextroamphetamine (Adderall) 20 MG tablet Indications: Attention deficit hyperactivity disorder (ADHD), combined type (CMS/HCC) Take 1 tablet (20 mg) by mouth Daily Do not start before October 23, 2023. 30 tablet 10/23/2023 Active Start: 10-23-2023 take 1 capsule by mo uth every twenty-four hours in the morning amphetamine-dextroamphetamine XR (Addera ll XR) 20 MG 24 hr capsule Indications: Attention deficit hyperactivity disorder (ADHD), combined type (CMS/HCC) Take 1 capsule (20 mg) by mouth in the morning. Do not crush or chew.. Do not start before October 23, 2023. 30 capsule 10/23/2023 Active Start: 06-04-2023 End: 07-04-2023 take 1 capsule [...] 30 capsule 0 04/26/2023 06/02/2023 Discontinued (Reorder) azithromycin 250 mg oral tablet (4 sources) Macrolide Antimicrobial Start: 01-26-2024 azithromycin (Zithromax Z-Darvin) 250 MG tablet Indications: Upper respiratory tract infection, unspecified type As directed 6 tablet 01/26/2024 Active calcium citrate 1190 mg / cholecalciferol 0.005 mg oral tablet (5 sources) Vitamin D Calcium Citrate-Vitamin D (Calcium Citrate + D3) 250-200 MG-UNIT tablet Calcium Citrate + D3 Active famotidine 20 mg oral tablet (5 sources) Histamine-2 Receptor Antagonist Start: 10-16-2023 End: 04-13-2024 take 1 tablet by mouth once famotidine (Pepcid) 20 MG tablet Indications: Gastroesophageal reflux disease without esophagitis Take 1 tablet (20 mg) by mouth every 12 (twelve) hours 180 tablet 1 10/16/2023 04/13/2024 Active Start: 04-16-2023 End: 10-13-2023 take 1 tablet by mouth once famotidine (Pepcid) 20 MG tablet Indications: Gastroesophageal reflux disease without esophagitis Take 1 tablet (20 mg) by mouth every 12 (twelve) hours 180 tablet 1 04/16/2023 10/13/2023 Active fexofenadine hydrochloride 180 mg oral tablet (5 sources) Histamine-1 Receptor Antagonist take 1 tablet by mouth in the morning fexofenadine (Tasha) 180 MG tablet Take 180 mg by mouth in the morning. Active 14 actuat fluticasone furoate 0.1 mg/actuat / vilanterol 0.025 mg/actuat dry powder inhaler (1 source) Corticosteroid, beta2-Adrenergic Agonist Start: End: take 1 puff(s) by inhalation in the morning Fluticasone Furoate-Vilanterol 100-25 MCG/ACT aerosol powder Indications: Moderate persistent asthma without complication (CMS/HCC) Inhale 1 puff in the morning. 28 each 5 04/16/2023 10/13/2023 Active folic acid 1 mg oral tablet (4 sources) Start: End: take 1 tablet by mouth once daily folic acid (Folvite) 1 MG tablet Indications: Second trimester Take 1 tablet (1 mg) by mouth Daily 30 tablet 6 01/18/2024 01/17/2025 Active ibuprofen 600 mg oral tablet (5 sources) Nonsteroidal Anti-inflammatory Drug ibuprofen 600 MG tablet Take 600 mg by mouth. Active lactase 9000 unt oral tablet (5 sources) lactase 9000 uni ts tablet Take 9,000 Units by mouth. Active lansoprazole 30 mg delayed release oral capsule (5 sources) Proton Pump Inhibitor Start: End: take 1 capsule by mouth once daily lansoprazole (Prevacid) [address] capsule Indications: Gastroesophageal reflux disease without esophagitis Take 1 capsule (30 mg) by mouth 1 (one) time each day at the same time 90 capsule 1 10/16/2023 04/13/2024 Active Start: 04-16-2023 End: 10-13-2023 take 1 capsule by mouth once daily lansoprazole (Prevacid) [address] capsule Indications: Gastroesophageal reflux disease without esophagitis Take 1 capsule (30 mg) by mouth 1 (one) time each day at the same time 90 capsule 1 04/16/2023 10/13/2023 Active 200 actuat levalbuterol 0.045 mg/actuat metered dose inhaler (9 sources) beta2-Adrenergic Agonist Start: 10-16-2023 End: 04-13-2024 take 1 puff(s) by inhalation every four hours for wheezing levalbuterol (Xopenex) 45 MCG/ACT inhaler Indications: Moderate persistent asthma without complication (CMS/HCC) Inhale 1 puff every 4 (four) hours if needed for wheezing 15 g 5 10/16/2023 04/13/2024 Active Start: 10-16-2023 levalbuterol ( Xopenex) 1.25 MG/3ML nebulizer solution Indications: Moderate persistent asthma without complication (CMS/HCC) Take 1 ampule by nebulization every 6 (six) hours if needed for shortness of breath 72 mL 1 10/16/2023 Active Start: 04-16-2023 End: 07-15-2023 levalbuterol (Xopenex) 1.25 MG/3ML nebulizer solution Indications: [...] Active levothyroxine sodium 0.088 mg oral tablet (5 sources) l-Thyroxine Start: 10-16-2023 End: 04-13-2024 take 1 tablet by mouth once daily levothyroxine (Synthroid, Levoxyl) 88 MCG tablet Indications: Acquired hypothyroidism (CMS/HCC) Take 1 tablet (88 mcg) by mouth 1 (one) time each day at the same time 90 tablet 1 10/16/2023 04/13/2024 Active Start: 04-16-2023 End: 10-13-2023 take 1 tablet by mouth once daily levothyroxine (Synthroid, Levoxyl) 88 MCG tablet Indications: Acquired hypothyroidism (CMS/HCC) Take 1 tablet (88 mcg) by mouth 1 (one) time each day at the same time 90 tablet 1 04/16/2023 10/13/2023 Active loperamide hydrochloride 2 mg oral capsule (5 sources) Opioid Agonist loperamide (Imod ium) 2 MG capsule Take 2 mg by mouth. Active magnesium oxide 400 mg oral tablet (3 sources) Start: 02-10-20 End: 03-11-20 take 1 tablet by mouth once daily magnesium oxide (Mag-Ox) 400 MG tablet Indications: headache in second trimester Take 1 tablet (400 mg) by mouth Daily 30 tablet 6 02/10/2024 03/11/2024 Active montelukast 10 mg oral tablet (5 sources) Leukotriene Receptor Antagonist Start: 10-16-19 End: 04-13-20 take 1 tablet by mouth at bedtime montelukast (Singulair) 10 MG tablet Indications: Moderate persistent asthma without complication (CMS/HCC) , Allergic rhinitis, unspecified seasonality, unspecified trigger Take 1 tablet (10 mg) by mouth at bedtime 90 tablet 1 10/16/2023 04/13/2024 Active Start: 04-16-2023 End: 10-13-2023 take 1 tablet by mouth at bedtime montelukast (Singulair) 10 MG tablet Indications: Moderate persistent asthma without complication (CMS/HCC) , Allergic rhinitis, unspecified seasonality, unspecified trigger Take 1 tablet (10 mg) by mouth at bedtime 90 tablet 1 04/16/2023 10/13/2023 Active Naproxen (5 sources) Nonsteroidal Anti-inflammatory Drug take 2 tablets by mouth once daily as needed NAPROXEN SODIUM PO Take 2 tablets by mouth Daily as needed. Active take 2 tablets by mo uth once daily as needed NAPROXEN SODIUM PO Take 2 tablets by konstantin th Daily as needed. 0 Active polysaccharide iron complex 391 mg oral capsule (3 sources) Start: 01-11-2024 End: 02-10-2024 take 1 capsule by mouth once daily iron polysaccharides (ProFe) 391.3 (180 Fe) MG capsule Indications: Second trimester Take 1 capsule (391.3 mg) by mouth Daily 30 capsule 6 01/11/2024 02/10/2024 Active ubrogepant 100 mg oral tablet (4 sources) Start: 04-24-2023 Ubrelvy 100 MG tablet 04/24/2023 Active Problems Active Problems Problem Classification Problem Date Documented Date Episodic/Chronic Anxiety disorders (5 sources) Anxiety; Translations: [Anxiety disorder, unspecified] Onset: 09-01-2022 09-01-2022 Chronic Asthma (19 sources) Uncomplicated moderate persistent asthma; Translations: [Moderate persistent asthma, uncomplicated] Onset: 09-01-2022 Resolved: 11-13-2022 09-01-2022 Chronic Attention-deficit, conduct, and disruptive behavior disorders (1 source) Attention deficit hyperactivity disorder, combined type; Translations: [Attention-deficit hyperactivity disorder, combined type] 06-02-2023 Chronic Esophageal disorders (5 sources) Gastroesophageal reflux disease without esophagitis; Translations: [Gastro-esophageal reflux disease without esophagitis] Onset: 09-01-2022 09-01-2022 Chronic Immunizations and screening for infectious disease (3 sources) Contact with and (suspected) exposure to infections with a predominantly sexual mode of transmission; Translations: [Patient encounter status] Onset: 01-29-2022 02-10-2024 Episodic Other complications of ; puerperium affecting management of mother (1 source) Endocrine, nutritional and metabolic diseases complicating childbirth; Translations: [ENDOCRN NUTR MET DZ COMP CHILDBIRTH] Onset: 06-30-2022 Episodic Other complications of (2 sources) Endocrine, nutritional and metabolic diseases complicating , third trimester; Translations: [ENDOCRN NUTR MET DZ COMP PG 3RD TRI] Onset: 06-23-2022 Episodic Other complications of (2 sources) Headache; Translations: [Other specified related conditions, second trimester] 02-10-2024 Episodic Other female genital disorders (2 sources) Vaginal discharge; Translations: [Other specified noninflammatory disorders of vagina] 02-10-2024 Episodic Other nervous system disorders (5 sources) Chronic pain; Translations: [Other chronic pain] Onset: 09-01-2022 Resolved: 11-13-2022 11-13-2022 Chronic Other and delivery including normal (20 sources) Encounter for care and examination of lactating mother; Translations: [Encounter for routine follow-up] Onset: 12-14-2021 Episodic Other screening for suspected conditions (not mental disorders or infectious disease) (12 sources) Encounter for screening for Streptococcus B; Translations: [Encounter for other specified screening] Onset: 12-17-2021 Episodic Other upper respiratory disease (1 source) Nasal congestion; Translations: [Nasal congestion] Onset: 07-13-2023 Episodic Residual codes; unclassified (1 source) 39 weeks gestation of ; Translations: [39 WEEKS GESTATION OF ] Onset: 06-30-2022 Episodic Residual codes; unclassified (2 sources) Gestation period, 19 weeks; Translations: [19 weeks gestation of ] 02-10-2024 Episodic Thyroid disorders (15 sources) Hypothyroidism, unspecified; Translations: [Hypothyroidism] Onset: 03-02-2020 Resolved: 11-13-2022 Chronic Unclassified (1 source) Cough, unspecified; Translations: [Cough, unspecified] Onset: 07-13-2023 Viral infection (1 source) COVID-19; Translations: [COVID-19] Onset: 04-08-2022 Past or Other Problems Problem Classification Problem Date Documented Date Episodic/Chronic Attention-deficit, conduct, and disruptive behavior disorders (5 sources) Attention deficit hyperactivity disorder; Translations: [Attention-deficit hyperactivity disorder, unspecified type] Onset: 09-01-2022 Resolved: 11-13-2022 11-13-2022 Chronic Diabetes or abnormal glucose tolerance complicating ; childbirth; or the puerperium (4 sources) Abnormal glucose complicating ; Translations: [ABNORMAL GLUCOSE COMP ] Onset: 04-16-2022 Episodic Headache; including migraine (5 sources) Migraine; Translations: [Migraine, unspecified, not intractable, without status migrainosus] Onset: 09-01-2022 Resolved: 11-13-2022 11-13-2022 Chronic Menstrual disorders (14 sources) Irregular menstruation, unspecified; Translations: [Amenorrhea] Onset: 12-14-2021 Resolved: 11-13-2022 Chronic Miscellaneous mental health disorders (5 sources) Binge eating disorder; Translations: [Binge eating disorder] Onset: 09-01-2022 Resolved: 11-13-2022 11-13-2022 Chronic Miscellaneous mental health disorders (5 sources) Transitory mood disturbance; Translations: [ mood disturbance] [...] TRI] Onset: 11-30-2021 Episodic Other complications of (5 sources) Asthma in ; Translations: [Diseases of the respiratory system complicating , unspecified trimester] Onset: 09-01-2022 Resolved: 11-13-2022 11-13-2022 Episodic Other nervous system disorders (5 sources) Poor concentration; Translations: [Attention and concentration deficit] Onset: 09-01-2022 Resolved: 11-13-2022 11-13-2022 Chronic Other nervous system disorders (5 sources) Metallic taste; Translations: [Other disturbances of smell and taste] Onset: 09-01-2022 Resolved: 11-13-2022 11-13-2022 Episodic Other nervous system disorders (5 sources) Skin sensation disturbance; Translations: [Unspecified disturbances of skin sensation] Onset: 09-01-2022 Resolved: 11-13-2022 11-13-2022 Episodic Other upper respiratory disease (5 sources) Allergic rhinitis; Translations: [Allergic rhinitis, unspecified] Onset: 09-01-2022 Resolved: 11-13-2022 11-13-2022 Chronic Other upper respiratory disease (5 sources) Seasonal allergy; Translations: [Other seasonal allergic rhinitis] [...] ] Onset: 11-30-2021 Episodic Residual codes; unclassified (5 sources) Insomnia; Translations: [Insomnia, unspecified] Onset: 09-01-2022 Resolved: 11-13-2022 11-13-2022 Episodic Residual codes; unclassified (5 sources) Hereditary disorder of endocrine system; Translations: [Genetic susceptibility to other disease] Onset: 09-01-2022 Resolved: 11-13-2022 11-13-2022 Episodic Spondylosis; intervertebral disc disorders; other back problems (5 sources) Sciatica; Translations: [Sciatica, left side] Onset: 09-01-2022 Resolved: 11-13-2022 11-13-2022 Episodic Substance-related disorders (5 sources) Nondependent cannabis abuse ; Translations: [Cannabis abuse, uncomplicated] Onset: 09-01-2022 Resolved: 11-13-2022 11-13-2022 Chronic Viral infection (5 sources) Verruca plantaris; Translations: [Plantar wart] Onset: 09-01-2022 Resolved: 11-13-2022 11-13-2022 Episodic Results Test Name Value Interpretation Reference Range Facility IGP,APTIMA HPV,AGE GDLNon AGE GDLN ACOG TESTING Note . [facility] Comment on above: TESTS RESULT FLAG UN ITS REF RANGE LAB Clinician Provided Cytology Information Source.............Cervix No. of containers..01 ThinPrep Vial Age Algo ACOG Sonja... 28 FLAG LEGEND: L-Low Normal,H-High Normal,LL-Alert Low,HH-Alert High <-Panic Low,>-Panic High,A-Abnormal,AA-Critical Abnormal Performed at: 01 =[address] [place] [address] Radha Browne MD, HPV APTIMA Negative Negative [facility] Comment on above: This nucleic acid am plification test detects fourteen high- risk HPV types (16,18,31,33,35,39,45,51,52,56,58,59,66,68) without differentiation. Performed at: =[address] [id number] Residential Lawn Specialist: Radha Browne MD, Phone: [phone] Performed at: [address], [place] [id number] [employer]idential [employer] Specialist: Radha Browne MD, Phone: [phone] IGP, APTIMA HPV, RFX 16/18,45 Note . [facility] Comment on above: TESTS RESULT FLAG UN ITS REF RANGE LAB DIAGNOSIS: 02 NEGATIVE FOR INTRAEPITHELIAL LESION OR MALIGNANCY. Specimen adequacy: 02 Satisfactory for evaluation. No endocervical component is identified. Performed by: Wendy Vargas, Reciprocating Drill Operator (ASCP) . 02 Note: Note 02 The Pap smear is a screening test designed to aid in the detection of premalignant and malignant conditions of the uterine cervix. It is not a diagnostic procedure and should not be used as the sole means of detecting cervical cancer. Both false-positive and false-negative reports do occur. Test Methodology: Note 02 This liquid based ThinPrep(R) pap test was screened with the use of an image guided system. HPV Genotype Reflex Note 02 Criteria not met, HPV Genotype not performed. FLAG LEGEND: L-Low Normal,H-High Normal,LL-Alert Low,HH-Alert High <-Panic Low,>-Panic High,A-Abnormal,AA-Critical Abnormal Performed at: [address] [id number] Radha Browne MD, SPATULA-ALONE CERVIX [facility] Urinalysis macro (dipstick) panel (U)on 02-10-2024 Bilirubin, UA Negative Negative - 4(70) +++ mg/dL [facility] Blood, UA Negative Negative - 50 Mendel/mcL [facility] Clarity, UA Clear [facility] Color, UA Yellow [facility] Glucose, UA Negative Negative - 2000(110) ++++ mg/dL [facility] Interpretation and review of laboratory results Abnormal [facility] Ketones, UA Negative Negative - 160(16) ++++ mg/dL [facility] Leukocytes, UA Trace Negative - 500+++ Leighann/mcL [facility] Nitrite, UA Negative Negative - Positive [facility] pH, UA 7 5 - 9 [facility] Protein, UA Negative Negative - 2000(20) ++++ mg/dL [facility] Spec Grav, UA 1.02 1 - 1.03 [facility] Urobilinogen, UA 0.2 0.2 - 12 mg/dL [facility] BioFire Not Detectedon 07-12 BioFire Not Detected Not detected Normal Not Detecte T he [facility] Comment on above: Result Comment: This is a duplicate RP2.1 COVID (PCR) result to be used for statistical tracking purpose only. PERFORMED BY: [place] [address] PATHOLOGIST EQUALIZER OPERATOR CATY NEELY M.D. Performed By: #### R RODGER PANEL UPP., BIOFIRECOVNOTDE #### [address] COVID-19 Detected/Not Detect edOrdered By: Sofiecody Gr on 07-13-2023 SARS-CoV-2 (COVID-19) RNA JUAN+non-probe Ql (Nph) Not detected Not Detecte [facility] Comment on above: This is [...] Influenza A H3 Blank Space PERFORMED BY: [facility] [address] [place] [address] PATHOLOGIST EQUALIZER OPERATOR CATY NEELY M.D. Normal [facility] Comment on above: Performed By: #### R RODGER PANEL UPP., BIOFIRECOVNOTDE #### [facility] [address] [place] [address] [facility] Respiratory pathogens DNA an d RNA panel - Nasopharynx by JUAN with non-probe detectionOrdered By: Sofie Gr on 07-13-2023 Respiratory pathogens DNA and RNA panel JUAN+non-probe (Nph) [facility] CBC AUTO DIFFon 06-25-2022 BASO # 0.0 103/ul Normal 0.0-0.1 [facility] Comment on above: Performed By: #### C BC #### [facility] [address] [address] [address] Garland Kohli Basophils/100 WBC (Bld) 0.4 % Normal 0.2-2.0 [facility] Comment on above: Performed By: #### C BC #### [facility] [address] [address] [address] Garland Kohli EO # 0.1 103/ul Normal 0.0-0.7 [facility] Comment on above: Performed By: #### C BC #### [facility] [address] [address] [address] Garland Kohli Eosinophils/100 WBC (Bld) 0.9 % Normal 0.9-7.0 [facility] Comment on above: Performed By: #### C BC #### [facility] [address] [address] [address] Garland Kohli Erythrocyte distribution width (RBC) [Ratio] 12.4 % Normal 11.0-15.0 [facility] Comment on above: Performed By: #### C BC #### [facility] [address] [address] [address] Garland Kohli Hematocrit (Bld) [Volume fraction] 31.4 % Critically low 36.0-48.0 [facility] Comment on above: Performed By: #### C BC #### [facility] [address] [address] [address] Garland Kohli Hemoglobin (Bld) [Mass/Vol] 10.4 g/dL Critically low 12.0-16.0 [facility] Comment on above: Performed By: #### C BC #### [facility] [address] [address] [address] Garland Kohli IG # 0.04 10e3/ul Critically high 0.00-0.03 [facility] Comment on above: Performed By: #### C BC #### [facility] [address] [place] [address] Dr. Garland Kohli IG % 0.4 % Normal 0.0-0.5 [facility] Comment on above: Performed By: #### C BC #### [facility] [address] [place] [address] Dr. Garland Kohli LYMPH # 2.0 103/ul Normal 1.2-3.8 [facility] Comment on above: Performed By: #### C BC #### [facility] [address] [place] [address] Dr. Garland Kohli Lymphocytes/100 WBC (Bld) 22.1 % Normal 20.5-60.0 [facility] Comment on above: Performed By: #### C BC #### [facility] [address] [place] [address] Dr. Garland Kohli MANUAL DIFF REQ NO Normal [facility] [facility] Comment on above: Performed By: #### C BC #### [facility] [address] [place] [address] Dr. Garland Kohli MCH (RBC) [Entitic mass] 30.1 pg Normal 26.7-34.0 [facility] Comment on above: Performed By: #### C BC #### [facility] [address] [place] [address] Dr. Garland Kohli MCHC (RBC) [Mass/Vol] 33.1 g/dL Normal 29.9-35.2 [facility] Comment on above: Performed By: #### C BC #### [facility] [address] [place] [address] Dr. Garland Kohli MCV (RBC) [Entitic vol] 91.0 fL Normal 81.0-99.0 [facility] Comment on above: Performed By: #### C BC #### [facility] [address] [place] [address] Dr. Garland Kohli MONO # 0.8 103/ul Normal 0.3-0.8 [facility] Comment on above: Performed By: #### C BC #### [facility] [address] [place] [address] Dr. Garland Kohli Monocytes/100 WBC (Bld) 8.8 % Normal 1.7-12.0 [facility] Comment on above: Performed By: #### C BC #### [facility] [address] [place] [address] Dr. Garland Kohli NEUT # 6.0 103/ul Normal 1.4-6.5 [facility] Comment on above: Performed By: #### C BC #### [facility] [address] [place] [address] Dr. Garland Kohli Neutrophils/100 WBC (Bld) 67.4 % Normal 43.0-75.0 [facility] Comment on above: Performed By: #### C BC #### [facility] [address] [place] [address] Dr. Garland Kohli Platelet mean volume (Bld) [Entitic vol] 12.0 fL Normal 9.5-13.5 [facility] Comment on above: Performed By: #### C BC #### [facility] [address] [place] [address] Dr. Garland Kohli PLT 151 103/ul Normal 150-450 [facility] Comment on above: Performed By: #### C BC #### [facility] [address] [place] [address] Dr. Garland Kohli RBC 3.45 106/ul Critically low 4.20-5.40 [facility] Comment on above: Performed By: #### C BC #### [facility] [address] [place] [address] Dr. Garland Kohli WBC 8.9 103/ul Normal 4.0-11.0 [facility] Comment on above: Performed By: #### C BC #### [facility] [address] [place] [address] Dr. Garland Kohli CBC AUTO DIFFon 06-23-2022 BASO # 0.0 103/ul Normal 0.0-0.1 [facility] Comment on above: Performed By: #### C BC #### [facility] [address] [place] [address] Dr. Garland Kohli Basophils/100 WBC (Bld) 0.4 % Normal 0.2-2.0 [facility] Comment on above: Performed By: #### C BC #### [facility] [address] [place] [address] Dr. Garland Kohli EO # 0.1 103/ul Normal 0.0-0.7 [facility] Comment on above: Performed By: #### C BC #### [facility] [address] [place] [address] Dr. Garland Kohli Eosinophils/100 WBC (Bld) 0.8 % Critically low 0.9-7.0 [facility] Comment on above: Performed By: #### C BC #### [facility] [address] [place] [address] Dr. Garland Kohli Erythrocyte distribution width (RBC) [Ratio] 12.4 % Normal 11.0-15.0 [facility] Comment on above: Performed By: #### C BC #### [facility] [address] [place] [address] Dr. Garland Kohli Hematocrit (Bld) [Volume fraction] 34.5 % Critically low 36.0-48.0 [facility] Comment on above: Performed By: #### C BC #### [facility] [address] [place] [address] Dr. Garland Kohli Hemoglobin (Bld) [Mass/Vol] 11.6 g/dL Critically low 12.0-16.0 [facility] Comment on above: Performed By: #### C BC #### [facility] [address] [place] [address] Dr. Garland Kohli IG # 0.04 10e3/ul Critically high 0.00-0.03 [facility] Comment on above: Performed By: #### C BC #### [facility] [address] [place] [address] Dr. Garland Kohli IG % 0.5 % Normal 0.0-0.5 [facility] Comment on above: Performed By: #### C BC #### [facility] [address] [address] [address] Garland Kohli LYMPH # 1.3 103/ul Normal 1.2-3.8 [facility] Comment on above: Performed By: #### C BC #### [facility] [address] [address] [address] Garland Kohli Lymphocytes/100 WBC (Bld) 17.6 % Critically low 20.5-60.0 [facility] Comment on above: Performed By: #### C BC #### [facility] [address] [place] [address] Dr. Garland Kohli MANUAL DIFF REQ NO Normal [facility] Comment on above: Performed By: #### C BC #### [facility] [address] [place] [address] Dr. Garland Kohli MCH (RBC) [Entitic mass] 29.6 pg Normal 26.7-34.0 [facility] Comment on above: Performed By: #### C BC #### [facility] [address] [place] [address] Dr. Garland Kohli MCHC (RBC) [Mass/Vol] 33.6 g/dL Normal 29.9-35.2 [facility] Comment on above: Performed By: #### C BC #### [facility] [address] [place] [address] Dr. Garland Kohli MCV (RBC) [Entitic vol] 88.0 fL Normal 81.0-99.0 [facility] Comment on above: Performed By: #### C BC #### [facility] [address] [place] [address] Dr. Garland Kohli MONO # 0.9 103/ul Critically high 0.3-0.8 [facility] Comment on above: Performed By: #### C BC #### [facility] [address] [place] [address] Dr. Garland Kohli Monocytes/100 WBC (Bld) 11.7 % Normal 1.7-12.0 [facility] Comment on above: Performed By: #### C BC #### [facility] [address] [place] [address] Dr. Garland Kohli NEUT # 5.1 103/ul Normal 1.4-6.5 [facility] Comment on above: Performed By: #### C BC #### [facility] [address] [place] [address] Dr. Garland Kohli Neutrophils/100 WBC (Bld) 69.0 % Normal 43.0-75.0 [facility] Comment on above: Performed By: #### C BC #### [facility] [address] [place] [address] Dr. Garland Kohli Platelet mean volume (Bld) [Entitic vol] 12.1 fL Normal 9.5-13.5 [facility] Comment on above: Performed By: #### C BC #### [facility] [address] [place] [address] Dr. Garland Kohli PLT 193 103/ul Normal 150-450 [facility] Comment on above: Performed By: #### C BC #### [facility] [address] [place] [address] Dr. Garland Kohli RBC 3.92 106/ul Critically low 4.20-5.40 [facility] Comment on above: Performed By: #### C BC #### [facility] [address] [place] [address] Dr. Garland Kohli WBC 7.4 103/ul Normal 4.0-11.0 [facility] Comment on above: Performed By: #### C BC #### [facility] [address] [place] [address] Dr. Garland Kohli DRUG SCREEN RAPID (URINE)on 06-23-2022 AMP Negative Normal NEGATIVE [facility] Comment on above: Performed By: #### D RUGRPD #### [facility] [address] [place] [address] Dr. Garland Kohli BAR Negative Normal NEGATIVE [facility] Comment on above: Performed By: #### D RUGRPD #### [facility] [address] [place] [address] Dr. Garland Kohli BUP Negative Normal NEGATIVE [facility] Comment on above: Performed By: #### D RUGRPD #### [facility] [address] [place] [address] Dr. Garland Kohli BZO Negative Normal NEGATIVE [facility] Comment on above: Performed By: #### D RUGRPD #### [facility] [address] [place] [address] Dr. Garland Kohli JUANI Negative Normal NEGATIVE [facility] Comment on above: Performed By: #### D RUGRPD #### [facility] [address] [place] [address] Dr. Garland Kohli CUT-OFFS SEE BELOW Normal [facility] Comment on above: Result Comment: [...] ng/mL Performed By: #### D RUGRPD #### [facility] [address] [place] [address] Dr. Garland Kohli DRUG CUT HEADER DRUG CLASS TEST SYSTEM CUT-OFF CONCENTRATIONS ARE FOLLOWS: Normal [facility] Comment on above: Performed By: #### D RUGRPD #### [facility] [address] [place] [address] Dr. Garland Kohli mAMP Negative Normal NEGATIVE [facility] Comment on above: Performed By: #### D RUGRPD #### [facility] [address] [place] [address] Dr. Garland Kohli MTD Negative Normal NEGATIVE [facility] Comment on above: Performed By: #### D RUGRPD #### [facility] [address] [place] [address] Dr. Garland Kohli OPI Negative Normal NEGATIVE [facility] Comment on above: Performed By: #### D RUGRPD #### [facility] [address] [address] [address] Garland Kohli OXY Negative Normal NEGATIVE [facility] Comment on above: Performed By: #### D RUGRPD #### [facility] [address] [place] [address] Dr. Garland Kohli PCP Negative Normal NEGATIVE [facility] Comment on above: Performed By: #### D RUGRPD #### [facility] [address] [place] [address] Dr. Garland Kohli PPX Negative Normal NEGATIVE [facility] Comment on above: Performed By: #### D RUGRPD #### [facility] [address] [place] [address] Dr. Garland Kohli TCA Negative Normal NEGATIVE [facility] Comment on above: Performed By: #### D RUGRPD #### [facility] [address] [place] [address] Dr. Garland Kohli THC Negative Normal NEGATIVE [facility] Comment on above: Performed By: #### D RUGRPD #### [facility] [address] [place] [address] Dr. Garland Kohli TYPE AND SCREENon 06-23-2022 TYPE AND SCREEN Negative Normal [facility] Comment on above: Performed By: #### T NS #### [facility] [address] [place] [address] Dr. Garland Kohli FREE T4on 06-07-2022 Free T4 [Mass/Vol] 0.76 ng/dL Normal 0.76-1.46 [facility] Comment on above: Performed By: #### C BC #### [facility] [address] [place] [address] Dr. Garland Kohli TSHon 06-07-2022 TSH 1.393 uIU/mL Normal 0.358-3.[address] [facility] Comment on above: Performed By: #### T SH #### [facility] [address] [place] [address] Dr. Garland Kohli GROUP B STREP CULTUREon S. agalactiae Ag Ql (Unsp spec) Culture Observations: NEGATIVE FOR GROUP B STREPTOCOCCUS. Normal [facility] Comment on above: Performed By: #### C BC #### [facility] [address] [place] [address] Dr. Garland Kohli GTT 3 HR PREGon 04-16-2022 Glucose [Mass/Vol] 87 mg/dL Normal 74-106 [facility] Comment on above: Performed By: #### G TT3P #### [facility] [address] [place] [address] Dr. Garland Kohli Glucose [Mass/Vol] 148 mg/dL Normal [facility] Comment on above: Performed By: #### G TT3P #### [facility] [address] [place] [address] Dr. Garland Kohli Glucose [Mass/Vol] 128 mg/dL Normal [facility] Comment on above: Performed By: #### G TT3P #### [facility] [address] [place] [address] Dr. Garland Kohli Glucose [Mass/Vol] 105 mg/dL Normal [facility] Comment on above: Performed By: #### G TT3P #### [facility] [address] [place] [address] Dr. Garland Kohli CBC AUTO DIFFon 04-04-2022 BASO # 0.0 103/ul Normal 0.0-0.1 [facility] Comment on above: Performed By: #### G TT3P #### [facility] [address] [place] [address] Dr. Garland Kohli Basophils/100 WBC (Bld) 0.2 % Normal 0.2-2.0 [facility] Comment on above: Performed By: #### G TT3P #### [facility] [address] [place] [address] Dr. Garland Kohli EO # 0.0 103/ul Normal 0.0-0.7 [facility] Comment on above: Performed By: #### G TT3P #### [facility] [address] [place] [address] Dr. Garland Kohli Eosinophils/100 WBC (Bld) 0.4 % Critically low 0.9-7.0 [facility] Comment on above: Performed By: #### G TT3P #### [facility] [address] [place] [address] Dr. Garland Kohli Erythrocyte distribution width (RBC) [Ratio] 12.9 % Normal 11.0-15.0 [facility] Comment on above: Performed By: #### G TT3P #### [facility] [address] [place] [address] Dr. Garland Kohli Hematocrit (Bld) [Volume fraction] 32.5 % Critically low 36.0-48.0 [facility] Comment on above: Performed By: #### G TT3P #### [facility] [address] [place] [address] Dr. Garland Kohli Hemoglobin (Bld) [Mass/Vol] 11.2 g/dL Critically low 12.0-16.0 [facility] Comment on above: Performed By: #### G TT3P #### [facility] [address] [place] [address] Dr. Garland Kohli IG # 0.07 10e3/ul Critically high 0.00-0.03 [facility] Comment on above: Performed By: #### G TT3P #### [facility] [address] [place] [address] Dr. Garland Kohli IG % 0.8 % Critically high 0.0-0.5 [facility] Comment on above: Performed By: #### G TT3P #### [facility] [address] [place] [address] Dr. Garland Kohli LYMPH # 0.9 103/ul Critically low 1.2-3.8 [facility] Comment on above: Performed By: #### G TT3P #### [facility] [address] [place] [address] Dr. Garland Kohli Lymphocytes/100 WBC (Bld) 10.4 % Critically low 20.5-60.0 [facility] Comment on above: Performed By: #### G TT3P #### [facility] [address] [address] [address] Garland Kohli MANUAL DIFF REQ NO Normal [facility] Comment on above: Performed By: #### G TT3P #### [facility] [address] [address] [address] Garland Kohli MCH (RBC) [Entitic mass] 31.4 pg Normal 26.7-34.0 [facility] Comment on above: Performed By: #### G TT3P #### [facility] [address] [address] [address] Garland Kohli MCHC (RBC) [Mass/Vol] 34.5 g/dL Normal 29.9-35.2 [facility] Comment on above: Performed By: #### G TT3P #### [facility] [address] [place] [address] Dr. Garland Kohli MCV (RBC) [Entitic vol] 91.0 fL Normal 81.0-99.0 [facility] Comment on above: Performed By: #### G TT3P #### [facility] [address] [place] [address] Dr. Garland Kohli MONO # 1.1 103/ul Critically high 0.3-0.8 [facility] Comment on above: Performed By: #### G TT3P #### [facility] [address] [place] [address] Dr. Garland Kohli Monocytes/100 WBC (Bld) 12.5 % Critically high 1.7-12.0 [facility] Comment on above: Performed By: #### G TT3P #### [facility] [address] [place] [address] Dr. Garland Kohli NEUT # 6.3 103/ul Normal 1.4-6.5 [facility] Comment on above: Performed By: #### G TT3P #### [facility] [address] [place] [address] Dr. Garland Kohli Neutrophils/100 WBC (Bld) 75.7 % Critically high 43.0-75.0 [facility] Comment on above: Performed By: #### G TT3P #### [facility] [address] [place] [address] Dr. Garland Kohli Platelet mean volume (Bld) [Entitic vol] 10.5 fL Normal 9.5-13.5 [facility] Comment on above: Performed By: #### G TT3P #### [facility] [address] [place] [address] Dr. Garland Kohli PLT 181 103/ul Normal 150-450 [facility] Comment on above: Performed By: #### G TT3P #### [facility] [address] [place] [address] Dr. Garland Kohli RBC 3.57 106/ul Critically low 4.20-5.40 [facility] Comment on above: Performed By: #### G TT3P #### [facility] [address] [place] [address] Dr. Garland Kohli WBC 8.4 103/ul Normal 4.0-11.0 [facility] Comment on above: Performed By: #### G TT3P #### [facility] [address] [place] [address] Dr. Garland Kohli CTA CHEST WO W [...] DEANNA LINN Date: 2022-04-04 15:25 Normal [facility] PROF CHEM 8 (BAS METB)on Anion gap [Moles/Vol] 13.2 mmol/L Normal [facility] Comment on above: Performed By: #### G TT3P #### [facility] [address] [place] [address] Dr. Garland Kohli Calcium [Mass/Vol] 8.5 mg/dL Normal 8.5-10.1 [facility] Comment on above: Performed By: #### G TT3P #### [facility] [address] [address] [address] Garland Kohli Chloride [Moles/Vol] 103 mmol/L Normal 98-107 [facility] Comment on above: Performed By: #### G TT3P #### [facility] [address] [place] [address] Dr. Garland Kohli CO2 [Moles/Vol] 23.4 mmol/L Normal 21.0-32.0 [facility] Comment on above: Performed By: #### G TT3P #### [facility] [address] [place] [address] Dr. Garland Kohli Creatinine [Mass/Vol] 0.43 mg/dL Critically low 0.55-1.02 [facility] Comment on above: Performed By: #### G TT3P #### [facility] [address] [place] [address] Dr. Garland Kohli EGFR-AF NEW ZEALANDER >60 Normal >=60 [facility] Comment on above: Performed By: #### G TT3P #### [facility] [address] [place] [address] Dr. Garland Kohli EGFR-NON AF NEW ZEALANDER >60 Normal >=60 [facility] Comment on above: Performed By: #### G TT3P #### [facility] [address] [place] [address] Dr. Garland Kohli Glucose [Mass/Vol] 108 mg/dL Critically high 74-106 [facility] Comment on above: Performed By: #### G TT3P #### [facility] [address] [address] [address] Garland Kohli Potassium [Moles/Vol] 3.6 mmol/L Normal 3.5-5.1 [facility] Comment on above: Performed By: #### G TT3P #### [facility] [address] [place] [address] Dr. Garland Kohli Sodium [Moles/Vol] 136 mmol/L Normal 136-145 [facility] Comment on above: Performed By: #### G TT3P #### [facility] [address] [place] [address] Dr. Garland Kohli Urea nitrogen [Mass/Vol] 5.0 mg/dL Critically low 7.0-18.0 [facility] Comment on above: Performed By: #### G TT3P #### [facility] [address] [place] [address] Dr. Garland Kohli Urea nitrogen/Creatinine [Mass ratio] 11.6 mg/mg Normal [facility] Comment on above: Performed By: #### G TT3P #### [facility] [address] [place] [address] Dr. Garland Kohli TROPONIN, HIGH SENSITIVITYon 04-04-2022 HSTROP 9.3 pg/mL Normal 4.0-51.3 [facility] Comment on above: Result Comment: CUT- OFF POINTS HAVE BEEN ESTABLISHED BASED ON THE FOURTH UNIVERSAL DEFINITIONS OF MYOCARDIAL INFARCTION. THE UPPER REFERENCE LIMIT (URL) OF TROPONIN, DEFINED THE 99TH PERCENTILE OF cTnI DISTRIBUTION IN A REFERENCE POPULATION, HAS BEEN CONFIRMED THE DECISION THRESHOLD FOR PA DIAGNOSIS. Performed By: #### G TT3P #### [facility] [address] [place] [address] Dr. Garland Kohli CBC AUTO DIFFon 03-26-2022 BASO # 0.0 103/ul Normal 0.0-0.1 [facility] Comment on above: Performed By: #### G TT3P #### [facility] [address] [place] [address] Dr. Garland Kohli Basophils/100 WBC (Bld) 0.2 % Normal 0.2-2.0 [facility] Comment on above: Performed By: #### G TT3P #### [facility] [address] [place] [address] Dr. Garland Kohli EO # 0.1 103/ul Normal 0.0-0.7 [facility] Comment on above: Performed By: #### G TT3P #### [facility] [address] [place] [address] Dr. Garland Kohli Eosinophils/100 WBC (Bld) 1.0 % Normal 0.9-7.0 [facility] Comment on above: Performed By: #### G TT3P #### [facility] [address] [place] [address] Dr. Garland Kohli Erythrocyte distribution width (RBC) [Ratio] 12.8 % Normal 11.0-15.0 [facility] Comment on above: Performed By: #### G TT3P #### [facility] [address] [place] [address] Dr. Garland Kohli Hematocrit (Bld) [Volume fraction] 36.2 % Normal 36.0-48.0 [facility] Comment on above: Performed By: #### G TT3P #### [facility] [address] [place] [address] Dr. Garland Kohli Hemoglobin (Bld) [Mass/Vol] 12.2 g/dL Normal 12.0-16.0 [facility] Comment on above: Performed By: #### G TT3P #### [facility] [address] [place] [address] Dr. Garland Kohli IG # 0.08 10e3/ul Critically high 0.00-0.03 [facility] Comment on above: Performed By: #### G TT3P #### [facility] [address] [place] [address] Dr. Garland Kohli IG % 0.9 % Critically high 0.0-0.5 [facility] Comment on above: Performed By: #### G TT3P #### [facility] [address] [place] [address] Dr. Garland Kohli LYMPH # 1.7 103/ul Normal 1.2-3.8 [facility] Comment on above: Performed By: #### G TT3P #### [facility] [address] [place] [address] Dr. Garland Kohli Lymphocytes/100 WBC (Bld) 17.8 % Critically low 20.5-60.0 [facility] Comment on above: Performed By: #### G TT3P #### [facility] [address] [place] [address] Dr. Garland Kohli MANUAL DIFF REQ NO Normal [facility] Comment on above: Performed By: #### G TT3P #### [facility] [address] [place] [address] Dr. Garland Kohli MCH (RBC) [Entitic mass] 30.7 pg Normal 26.7-34.0 [facility] Comment on above: Performed By: #### G TT3P #### [facility] [address] [place] [address] Dr. Garland Kohli MCHC (RBC) [Mass/Vol] 33.7 g/dL Normal 29.9-35.2 [facility] Comment on above: Performed By: #### G TT3P #### [facility] [address] [place] [address] Dr. Garland Kohli MCV (RBC) [Entitic vol] 91.2 fL Normal 81.0-99.0 [facility] Comment on above: Performed By: #### G TT3P #### [facility] [address] [place] [address] Dr. Garland Kohli MONO # 0.6 103/ul Normal 0.3-0.8 [facility] Comment on above: Performed By: #### G TT3P #### [facility] [address] [place] [address] Dr. Garland Kohli Monocytes/100 WBC (Bld) 6.0 % Normal 1.7-12.0 [facility] Comment on above: Performed By: #### G TT3P #### [facility] [address] [place] [address] Dr. Garland Kohli NEUT # 6.9 103/ul Critically high 1.4-6.5 [facility] Comment on above: Performed By: #### G TT3P #### [facility] [address] [address] [address] Garland Kohli Neutrophils/100 WBC (Bld) 74.1 % Normal 43.0-75.0 [facility] Comment on above: Performed By: #### G TT3P #### [facility] [address] [address] [address] Garland Kohli Platelet mean volume (Bld) [Entitic vol] 10.2 fL Normal 9.5-13.5 [facility] Comment on above: Performed By: #### G TT3P #### [facility] [address] [address] [address] Garland Kohli PLT 217 103/ul Normal 150-450 [facility] Comment on above: Performed By: #### G TT3P #### [facility] [address] [place] [address] Dr. Garland Kohli RBC 3.97 106/ul Critically low 4.20-5.40 [facility] Comment on above: Performed By: #### G TT3P #### [facility] [address] [place] [address] Dr. Garland Kohli WBC 9.3 103/ul Normal 4.0-11.0 [facility] Comment on above: Performed By: #### G TT3P #### [facility] [address] [place] [address] Dr. Garland Kohli GLUCOSE - 1HRon 03-26-2022 Glucose [Mass/Vol] 155 mg/dL Critically high 74-106 [facility] Comment on above: Performed By: #### C BC #### [facility] [address] [place] [address] Dr. Garland Kohli US PREG ANATOMY SINGLEon [...] YAAKOV TERAN Date: 2022-02-09 19:30 Normal [facility] AFP MATERNAL FOR SPINA BIFID Aon 01-29-2022 AFP MoM 0.76 Normal [facility] Comment on above: Performed By: #### G TT3P #### [facility] [address] [address] [address] Garland Kohli AFP Value 35.4 ng/mL Normal [facility] Comment on above: Performed By: #### G TT3P #### [facility] [address] [address] [address] Garland Kohli AFP, Serum for Spina Bifida Report Normal [facility] Comment on above: Performed By: #### G TT3P #### [facility] [address] [address] [address] Garland Kohli Comment Comment Normal [facility] Comment on above: Result Comment: Stanley Almodovar, Ph.D., [facility] Director . References: Available Upon Request. . Multiples Of Median Cutoffs For AFP Elevations Mark 2.5 Black 2.8 IDD 2.0 Twins 4.5 Abbreviation Definitions IDD - Insulin Dep Diabetes OSBR - Open Spina Bifida Risk . For further inquiries contact [facility] at [phone]. . This test was developed and its performance characteristics determined by [employer]. It has not been cleared or approved by the Food and Drug Administration. Performed By: #### G TT3P #### [facility] [address] [place] [address] Dr. Garland Izquierdo Age Collection Date 18.1 weeks Normal [facility] Comment on above: Performed By: #### G TT3P #### [facility] [address] [place] [address] Dr. Garland Kohli Gestat, Age Based on Ultrasound Normal [facility] Comment on above: Result Comment: 09:4 on 11/26/2021 Recalculations are not recommended when gestational dating by LMP and ultrasound are within 10 days. Performed By: #### G TT3P #### [facility] [address] [place] [address] Dr. Garland Kohli Insulin Dep Diabetes No Normal [facility] Comment on above: Performed By: #### G TT3P #### [facility] [address] [place] [address] Dr. Garland Kohli Interpretation Comment Normal [facility] Comment on above: Result Comment: Inte rpretation: [...] Customer Services to discuss available options. The [employer] recommends amniocentesis be offered to women age 35 and older. Performed By: #### G TT3P #### [facility] [address] [place] [address] Dr. Garland Kohli [age] Normal [facility] Comment on above: Performed By: #### G TT3P #### [facility] [address] [place] [address] Dr. Garland Kohli Multiple Gestation No Normal [facility] Comment on above: Performed By: #### G TT3P #### [facility] [address] [address] [address] Garland Kohli OSBR [place] 1 [place] [address] [facility] Comment on above: Performed By: #### G TT3P #### [facility] [address] [address] [address] Garland Kohli PDF . [facility] Comment on above: Performed By: #### G TT3P #### [facility] [address] [address] [address] Garland Kohli Race [facility] Comment on above: Performed By: #### G TT3P #### [facility] [address] [address] [address] Garland Kohli Test Results: Negative [facility] Comment on above: Performed By: #### G TT3P #### [facility] [address] [place] [address] Dr. Garland Kohli PAP ACOG PANEL 2: 21 to 29on 01-23-2022 . . [facility] Comment on above: Performed By: #### 4 [id number] #### [facility] [address] [address] [address] Garland Kohli Age Gdln ACOG Testing [facility] Comment on above: Performed By: #### 4 [id number] #### [facility] [address] [address] [address] Garland Kohli DIAGNOSIS: Comment [facility] Comment on above: Result Comment: NEGA TIVE FOR INTRAEPITHELIAL LESION OR MALIGNANCY. Performed By: #### 4 [id number] #### [facility] [address] [address] [address] Garland Kohli Methodology: Comment [facility] Comment on above: Result Comment: This liquid based ThinPrep(R) pap test was screened with the use of an image guided system. Performed By: #### 4 [id number] #### [facility] [address] [place] [address] Dr. Garland Kohli Note: Comment [facility] Comment on above: Result Comment: The Pap smear is a screening test designed to aid in the detection of premalignant and malignant conditions of the uterine cervix. It is not a diagnostic procedure and should not be used as the sole means of detecting cervical cancer. Both false-positive and false-negative reports do occur. . Performed By: #### 4 [id number] #### [facility] [address] [place] [address] Dr. Garland Kohli Performed by: Comment Normal [facility] Comment on above: Result Comment: Kelly Arreguin, Reciprocating Drill Operator (ASCP) Performed By: #### 4 [id number] #### [facility] [address] [place] [address] Dr. Garland Kohli Reflex Criteria: Comment Normal [facility] Comment on above: Result Comment: The HPV DNA reflex criteria were not met with this specimen result therefore, no HPV testing was performed. . Performed By: #### 4 [id number] #### [facility] [address] [place] [address] Dr. Garland Kohli Specimen adequacy: Comment Normal [facility] Comment on above: Result Comment: Sati sfactory for evaluation. No endocervical component is identified. Performed By: #### 4 [id number] #### [facility] [address] [place] [address] Dr. Garland Kohli CHLAMYDIA/GONOCOCCUS JUAN (SW AB/URINE/PAPon 01-20-2022 Chlamydia trachomatis, JUAN Negative Normal Negative [facility] Comment on above: Performed By: #### C BC #### [facility] [address] [place] [address] Dr. Garland Kohli Neisseria gonorrhoeae, JUAN Negative Normal Negative [facility] Comment on above: Performed By: #### C BC #### [facility] [address] [place] [address] Dr. Garland Kohli TSHon 01-04-2022 TSH 1.707 uIU/mL Normal 0.358-3.[address] [facility] Comment on above: Performed By: #### G TT3P #### [facility] [address] [place] [address] Dr. Garland Kohli HEPATITIS C VIRUS AB W/ REFL EX QUANTon 12-17-2021 HCV AB <0.1 Normal 0.0-0.9 [facility] Comment on above: Performed By: #### G TT3P #### [facility] [address] [place] [address] Dr. Garland Kohli Interpretation: Comment Normal [facility] Comment on above: Result Comment: Nega tive Not infected with HCV, unless recent infection is suspected or other evidence exists to indicate HCV infection. Performed By: #### G TT3P #### [facility] [address] [address] [address] Garland Kohli CULTURE URINEon 12-15-2021 CULTURE URINE Culture Observations : GREATER THAN TWO ORGANISMS PRESENT. PLEASE RESUBMIT CLEAN CATCH MID-STREAM URINE IF CLINICALLY INDICATED. Normal [facility] Comment on above: Performed By: #### U RCX #### [facility] [address] [place] [address] Dr. Garland Kohli HEP B SURFACE ANTIGEN SCREEN on 12-15-2021 HBsAg Screen Negative Normal Negative [facility] Comment on above: Performed By: #### H BSANS #### [facility] [address] [address] [address] Garland Kohli HIV 1 AND 2 WITH REFLEXon HIV Screen 4th Generation wRfx Non-Reactive Normal Non Reactive [facility] Comment on above: Result Comment: HIV Negative HIV-1/HIV-2 antibodies and HIV-1 p24 antigen were NOT detected. There is no laboratory evidence of HIV infection. Performed By: #### H IV12 #### [facility] [address] [place] [address] Dr. Garland Kohli RPR QUANTon 12-15-2021 Rapid Plasma Reagin, Quant Non-Reactive Normal NonRea<1:1 [facility] Comment on above: Result Comment: Plea Note: This test does not meet current guidelines for screening and diagnosis of syphilis. This test is intended for following treatment response in patients being treated for syphilis infection. To screen for syphilis infection, a reflex cascade that includes both RPR and a treponema-specific assay should be utilized, such as Treponema pallidum (Syphilis) Screening [facility] (383609) or Rapid Plasma Reagin (RPR) Test With Reflex to Quantitative RPR and Confirmatory Treponema pallidum Antibodies (083204). Performed By: #### G TT3P #### [facility] [address] [place] [address] Dr. Garland Kohli RUBELLA AB IGGon 12-15-2021 Rubella Antibodies, IgG 4.72 index Normal Immune >0.99 [facility] Comment on above: Result Comment: Non- immune <0.90 Equivocal 0.90 - 0.99 Immune >0.99 Performed By: #### G TT3P #### [facility] [address] [place] [address] Dr. Garland Kohli CBC AUTO DIFFon 12-14-2021 BASO # 0.0 103/ul Normal 0.0-0.1 [facility] Comment on above: Performed By: #### C BC #### [facility] [address] [place] [address] Dr. Garland Kohli Basophils/100 WBC (Bld) 0.3 % Normal 0.2-2.0 [facility] Comment on above: Performed By: #### C BC #### [facility] [address] [place] [address] Dr. Garland Kohli EO # 0.1 103/ul Normal 0.0-0.7 [facility] Comment on above: Performed By: #### C BC #### [facility] [address] [place] [address] Dr. Garland Kohli Eosinophils/100 WBC (Bld) 0.8 % Critically low 0.9-7.0 [facility] Comment on above: Performed By: #### C BC #### [facility] [address] [place] [address] Dr. Garland Kohli Erythrocyte distribution width (RBC) [Ratio] 12.6 % Normal 11.0-15.0 [facility] Comment on above: Performed By: #### C BC #### [facility] [address] [place] [address] Dr. Garland Kohli Hematocrit (Bld) [Volume fraction] 34.3 % Critically low 36.0-48.0 [facility] Comment on above: Performed By: #### C BC #### [facility] [address] [place] [address] Dr. Garland Kohli Hemoglobin (Bld) [Mass/Vol] 11.7 g/dL Critically low 12.0-16.0 [facility] Comment on above: Performed By: #### C BC #### [facility] [address] [place] [address] Dr. Garland Kohli IG # 0.03 10e3/ul Normal 0.00-0.03 [facility] Comment on above: Performed By: #### C BC #### [facility] [address] [place] [address] Dr. Garland Kohli IG % 0.4 % Normal 0.0-0.5 [facility] Comment on above: Performed By: #### C BC #### [facility] [address] [place] [address] Dr. Garland Kohli LYMPH # 1.5 103/ul Normal 1.2-3.8 [facility] Comment on above: Performed By: #### C BC #### [facility] [address] [place] [address] Dr. Garland Kohli Lymphocytes/100 WBC (Bld) 21.1 % Normal 20.5-60.0 [facility] Comment on above: Performed By: #### C BC #### [facility] [address] [place] [address] Dr. Garland Kohli MANUAL DIFF REQ NO Normal [facility] Comment on above: Performed By: #### C BC #### [facility] [address] [place] [address] Dr. Garland Kohli MCH (RBC) [Entitic mass] 30.5 pg Normal 26.7-34.0 [facility] Comment on above: Performed By: #### C BC #### [facility] [address] [place] [address] Dr. Garland Kohli MCHC (RBC) [Mass/Vol] 34.1 g/dL Normal 29.9-35.2 [facility] Comment on above: Performed By: #### C BC #### [facility] [address] [address] [address] Garland Kohli MCV (RBC) [Entitic vol] 89.6 fL Normal 81.0-99.0 [facility] Comment on above: Performed By: #### C BC #### [facility] [address] [address] [address] Garland Kohli MONO # 0.5 103/ul Normal 0.3-0.8 [facility] Comment on above: Performed By: #### C BC #### [facility] [address] [address] [address] Garland Kohli Monocytes/100 WBC (Bld) 7.1 % Normal 1.7-12.0 [facility] Comment on above: Performed By: #### C BC #### [facility] [address] [address] [address] Garland Kohli NEUT # 5.0 103/ul Normal 1.4-6.5 [facility] Comment on above: Performed By: #### C BC #### [facility] [address] [address] [address] Garland Kohli Neutrophils/100 WBC (Bld) 70.3 % Normal 43.0-75.0 [facility] Comment on above: Performed By: #### C BC #### [facility] [address] [address] [address] Garland Kohli Platelet mean volume (Bld) [Entitic vol] 10.1 fL Normal 9.5-13.5 [facility] Comment on above: Performed By: #### C BC #### [facility] [address] [address] [address] Garland Kohli PLT 234 103/ul Normal 150-450 [facility] Comment on above: Performed By: #### C BC #### [facility] [address] [address] [address] Garland Kohli RBC 3.83 106/ul Critically low 4.20-5.40 [facility] Comment on above: Performed By: #### C BC #### [facility] [address] [address] [address] Garland Kohli WBC 7.1 103/ul Normal 4.0-11.0 [facility] Comment on above: Performed By: #### C BC #### [facility] [address] [address] [address] Garland Kohli GLYCOHEMOGLOBIN A1Con 2021 ADA RECOMMENDATION SEE BELOW Normal [facility] Comment on above: Result Comment: ADA RECOMMENDED LIMIT 4.0 - 6.0 ADA THERAPEUTIC TARGET < 7.0 ACTION SUGGESTED > 7.0 Performed By: #### A 1C #### [facility] [address] [place] [address] Dr. Garland Kohli Glucose [Mass/Vol] 103 mg/dL Normal [facility] Comment on above: Performed By: #### A 1C #### [facility] [address] [place] [address] Dr. Garland Kohli HbA1c (Bld) [Mass fraction] 5.2 % Normal 4.5-6.2 [facility] Comment on above: Performed By: #### A 1C #### [facility] [address] [place] [address] Dr. Garland Kohli MARTÍNEZ BOX TEST PT SEND OUTo n 12-14-2021 SENT TO REF LAB 12/14/21 Normal [facility] Comment on above: Performed By: #### G TT3P #### [facility] [address] [place] [address] Dr. Garland Kohli TYPE AND SCREENon 12-14-2021 TYPE AND SCREEN Negative Normal [facility] Comment on above: Performed By: #### C BC #### [facility] [address] [place] [address] Dr. Garland Kohli US PREG TVon 11-26-2021 [...] by: YAAKOV TERAN Date: 2021-11-26 18:36 Normal [facility] OPERATIVE REPORTon 9 OPERATIVE REPORT [address] [address] OPERATIVE REPORT PATIENT NAME: CECELIA JOHNSON : 1995 MED REC NO: [id number] ROOM: ACCOUNT NO: [id number] ADMIT DATE: 11/24/2018 PROVIDER: Mode Renee DATE OF PROCEDURE: 11/24/2018 PRIMARY CARE PHYSICIAN: Carlos Alberto Coleman PREOPERATIVE DIAGNOSIS: Symptomatic macromastia. 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 Steri-Strips applied throughout and then bulky gauze dressing as well as surgical bra was applied. The patient was awoken, extubated, and transported to the recovery room in stable condition. Sponge, needle, and instrument counts were reported correct x2 at the end of the case. MODE RENEE [id number] Doc#: [id number] CC: Carlos Alberto Coleman Normal [facility] Surgical Pathologyon 019 Surgical Pathology (NOTE) [id number] [facility] [address] [place], [place] [address] SURGICAL PATHOLOGY REPORT Patient Name: CECELIA JOHNSON MR#: [id number] Specimen #[id number] Final Diagnosis SPECIMEN A : BREAST AND [...] OF SKIN. NEGATIVE FOR MALIGNANCY OR ATYPIA. Kevinricardo Nicolas M.D. Electronically Signed Out 11/26/2018 Clinical [...] The entire specimen weighs 453 grams. Multiple sales representative girls' apparel sections are submitted in five cassettes for [...] also sampled in multiple different areas and sales representative girls' apparel sections are submitted in five cassettes for microscopic examination. Microscopic Description Specimen A : Five RICHARD glass slides are received. Microscopic examination is performed. Specimen B : Five RICHARD glass slides are received. Microscopic examination is performed. Normal [facility] Comment on above: Performed By: #### P PPES #### [facility] [address] [place] [address] Residential Lawn Specialist: Victor Manuel Hunter DO CNOVSPon 11-18-2018 OVS Visit (SP) Office ([place]) CECELIA JOHNSON ([id number]) 1995 F Date Time Provider Department 11/18/18 1:00 PM JAZ MOULTON) KATHARINE During your visit today, we recorded the following information about you: Temperature Pulse Respiration Blood pressure 97.9 degrees 82/minute 18/minute 122/78 Weight Height Last Period 82.7 kg 1.6 m 10/15/18 Jaz Moulton MD 11/18/2018 3:08 PM Signed PATIENT NAME: Cecelia Johnson CLINIC NO.: [id number] ATTENDING PHYSICIAN: Jaz Moulton MD DATE OF SERVICE: November 18, 2018 This document has been created with the use of voice recognition technology. It may contain inaccuracies, misspellings, inaccurate syntax or inappropriate word context that escaped review. Dear Dr. OSUNA thank you for referring Miss Cecelia Johnson for an opinion regarding surgical clearance. CHIEF COMPLAINT: I need surgical clearance HPI: Cecelia Johnson is a 23 year old year [...] file Gets together: Not on file Attends zoroastrianism service: Not on file Active member of [...] EOSINP, ABSEOSIN, BASOP, ABSBASO ASSESSMENT AND PLAN: Cecelia Johnson is a 23 year old year [...] for allowing me to participate in Miss Cecelia Johnson care, if there are any questions or concerns please do not hesitate to contact me at the number below. Jaz Moulton M.D. Hematology/Medical Oncology [facility] [place] [phone] CC: Carlos Alberto Coleman MD - (Inactive), In Basket (Inactive) - User (Inactive) [address] [place] [phone] (Ph) Mode Renee MD Referring Provider: SELF [[id number]] [...] (HCC) [E72.12] INVALID FOR* Encounter Status:Closed by JAZ MOULTON MD on 11/18/18 Normal [facility] PROGRESSon 11-18-2018 PROGRESS HNO ID: [id number] Author: Jaz Hill) Kenney Service: ? Author Type: Physician Type: Progress Notes Filed: 11/18/2018 3:08 PM Note Text: PATIENT NAME: Cecelia Johnson [facility] NO.: [id number] ATTENDING PHYSICIAN: Jaz Moulton MD DATE OF SERVICE: November 18, 2018 This document has been created with the use of voice recognition technology. It may contain inaccuracies, misspellings, inaccurate syntax or inappropriate word context that escaped review. Dear Dr. OSUNA thank you for referring Miss Cecelia Johnson for an opinion regarding surgical clearance. CHIEF COMPLAINT: I need surgical clearance HPI: Cecelia Johnson is a 23 year old year [...] file Gets together: Not on file Attends zoroastrianism service: Not on file Active member of [...] EOSINP, ABSEOSIN, BASOP, ABSBASO ASSESSMENT AND PLAN: Cecelia Johnson is a 23 year old year [...] for allowing me to participate in Miss Cecelia Johnson care, if there are any questions or concerns please do not hesitate to contact me at the number below. Jaz Moulton M.D. Hematology/Medical On[facility] [phone] CC: Carlos Alberto Coleman MD - (Inactive), In Basket (Inactive) - User (Inactive) [address] [facility] [phone] () Mode Renee MD Normal [facility] Basic Metabolic Profon 11-10 (cont.) Normal [facility] Comment on above: Result Comment: Aver age GFR for 20-29 years old: 116 mL/min/1.73sq m Chronic Kidney Disease: <60 mL/min/1.73sq m Kidney failure: <15 mL/min/1.73sq m eGFR calculated using average adult body mass. Additional eGFR calculator available at: http://www.[employer].com/multiple_crcl_2011.htm Performed By: #### C ROSA RUTH #### [facility] [address] [place] [address] Residential Lawn Specialist: Victor Manuel Hunter DO Anion gap [Moles/Vol] 11 mmol/L Normal 9-17 [facility] Comment on above: Performed By: #### C DP, BMP #### [facility] [address] [place] [address] Residential Lawn Specialist: Victor Manuel Hunter DO Calcium [Mass/Vol] 9.7 mg/dL Normal 8.6-10.4 [facility] Comment on above: Performed By: #### C DP, BMP #### [facility] [place] [address] Residential Lawn Specialist: Victor Manuel Hunter DO Chloride [Moles/Vol] 102 mmol/L Normal 98-107 [facility] Comment on above: Performed By: #### C DP, BMP #### [facility] [place] [address] Residential Lawn Specialist: Victor Manuel Hunter DO CO2 [Moles/Vol] 26 mmol/L Normal 20-31 [facility] Comment on above: Performed By: #### C DP, BMP #### [facility] [facility] [place] [address] Residential Lawn Specialist: Victor Manuel Hunter DO Creatinine [Mass/Vol] 0.49 mg/dL Low 0.50-0.90 [facility] Comment on above: Performed By: #### C DP, BMP #### [facility] [place] [address] Residential Lawn Specialist: Victor Manuel Hunter DO GFR, Amer >60 Normal >60 [facility] Comment on above: Performed By: #### C DP, BMP #### [facility] [address] [place] [address] Residential Lawn Specialist: Victor Manuel Hunter DO GFR,non Amer >60 Normal >60 [facility] Comment on above: Performed By: #### C DP, BMP #### [facility] [address] [place] [address] Residential Lawn Specialist: Victor Manuel Hunter DO Glucose [Mass/Vol] 88 mg/dL Normal 70-99 [facility] Comment on above: Performed By: #### C DP, BMP #### [facility] [address] [place] [address] Residential Lawn Specialist: Victor Manuel Hunter DO Potassium [Moles/Vol] 4.3 mmol/L Normal 3.7-5.3 [facility] Comment on above: Performed By: #### C FARAZ, BMP #### [facility] [address] [place] [address] Residential La[employer] Specialist: Victor Manuel Hunter DO Sodium [Moles/Vol] 139 mmol/L Normal 135-144 [facility] Comment on above: Performed By: #### C FARAZ, BMP #### [facility] [place] [address] Residential Lawn Specialist: Victor Manuel Hunter DO Urea nitrogen [Mass/Vol] 8 mg/dL Normal 6-20 [facility] Comment on above: Performed By: #### C FARAZ, BMP #### [facility] [place] [address] Residential Lawn Specialist: Victor Manuel Hunter DO BUN/CRE Ratio NOT REPORTED Normal 9-20 [facility] Comment on above: Performed By: #### C DP, BMP #### [facility] [address] [place] [address] Residential Lawn Specialist: Victor Manuel Hunter DO Staging: NOT REPORTED Normal [facility] Comment on above: Performed By: #### C FARAZ, BMP #### [facility] [address] [facility] [place] [address] Residential Lawn Specialist: Victor Manuel Hunter DO CBC with Diffon 11-10-2018 Abs. Basophil 0.00 k/uL Normal 0.0-0.2 [facility] Comment on above: Performed By: #### C DP, BMP #### [facility] [place] [address] Residential Lawn Specialist: Victor Manuel Hunter DO Abs.Neutrophil (Seg) 3.00 k/uL Normal 1.3-9.1 [facility] Comment on above: Performed By: #### C DP, BMP #### [facility] [address] [place] [id number] [employer]idential La[employer] Specialist: Victor Manuel Hunter DO Basophils/100 WBC (Bld) 0 % Normal 0-2 [facility] Comment on above: Performed By: #### C FARAZ, BMP #### [facility] [address] [place] [address] Residential Lawn Specialist: Victor Manuel Hunter DO Eosinophils (Bld) [#/Vol] 0.10 10*3/uL Normal 0.0-0.4 [facility] Comment on above: Performed By: #### C FARAZ, BMP #### [facility] [address] [place] [address] [employer]idential [employer] Specialist: Victor Manuel Hunter DO Eosinophils/100 WBC (Bld) 1 % Normal 0-4 [facility] Comment on above: Performed By: #### C DP, BMP #### [facility] [address] [place] [address] Residential Lawn Specialist: Victor Manuel Hunter DO Erythrocyte distribution width (RBC) [Ratio] 12.7 % Normal 11.5-14.9 [facility] Comment on above: Performed By: #### C DP, BMP #### [facility] [place] [address] Residential Lawn Specialist: Victor Manuel Hunter DO Hematocrit (Bld) [Volume fraction] 42.3 % Normal 36-46 [facility] Comment on above: Performed By: #### C DP, BMP #### [facility] [address] [place] [address] Residential Lawn Specialist: Victor Manuel Hunter DO Hemoglobin (Bld) [Mass/Vol] 14.3 g/dL Normal 12.0-16.0 [facility] Comment on above: Performed By: #### C DP, BMP #### [facility] [address] [place] [address] Residential Lawn Specialist: Victor Manuel Hunter DO Lymphocytes (Bld) [#/Vol] 1.70 10*3/uL Normal 1.0-4.8 [facility] Comment on above: Performed By: #### C DP, BMP #### [facility] [address] [place] [address] Residential Lawn Specialist: Victor Manuel Hunter DO Lymphocytes/100 WBC (Bld) 32 % Normal 24-44 [facility] Comment on above: Performed By: #### C DP, BMP #### [facility] [address] [place] [address] Residential Lawn Specialist: Victor Manuel Hunter DO MCH (RBC) [Entitic mass] 30.0 pg Normal 26-34 [facility] Comment on above: Performed By: #### C DP, BMP #### [facility] [address] [place] [address] Residential Lawn Specialist: Victor Manuel Hunter DO MCHC (RBC) [Mass/Vol] 33.7 g/dL Normal 31-37 [facility] Comment on above: Performed By: #### C DP, BMP #### [facility] [address] [place] [address] Residential Lawn Specialist: Victor Manuel Hunter DO MCV (RBC) [Entitic vol] 89.0 fL Normal 80-100 [facility] Comment on above: Performed By: #### C DP, BMP #### [facility] [address] [place] [address] Residential Lawn Specialist: Victor Manuel Hunter DO Monocytes (Bld) [#/Vol] 0.60 10*3/uL Normal 0.1-1.3 [facility] Comment on above: Performed By: #### C DP, BMP #### [facility] [place] [address] Residential Lawn Specialist: Victor Manuel Hunter DO Monocytes/100 WBC (Bld) 11 % High 1-7 [facility] Comment on above: Performed By: #### C DP, BMP #### [facility] [address] [place] [address] Residential Lawn Specialist: Victor Manuel Hunter DO Neutrophil (Seg) 56 % Normal 36-66 [facility] Comment on above: Performed By: #### C DP, BMP #### [facility] [place] [address] Residential Lawn Specialist: Victor Manuel Hunter DO Platelet mean volume (Bld) [Entitic vol] 9.4 fL Normal 6.0-12.0 [facility] Comment on above: Performed By: #### C DP, BMP #### [facility] [place] [address] Residential Lawn Specialist: Victor Manuel Hunter DO Platelets (Bld) [#/Vol] 252 10*3/uL Normal 150-450 [facility] Comment on above: Performed By: #### C DP, BMP #### [facility] [address] [facility] [place] [address] Residential Lawn Specialist: Victor Manuel Hunter DO RBC (Bld) [#/Vol] 4.75 10*6/uL Normal 4.0-5.2 [facility] Comment on above: Performed By: #### C DP, BMP #### [facility] [address] [place] [address] Residential Lawn Specialist: Victor Manuel Hunter DO WBC (Bld) [#/Vol] 5.3 10*3/uL Normal 3.5-11.0 [facility] Comment on above: Performed By: #### C DP, BMP #### [facility] [place] [address] Residential Lawn Specialist: Victor Manuel Hunter DO Abs.Imm.Granulocyte NOT REPORTED Normal 0.00-0.30 [facility] Comment on above: Performed By: #### C DP, BMP #### [facility] [place] [address] Residential Lawn Specialist: Victor Manuel Hunter DO Auto Diff Performed NOT REPORTED Normal [facility] Comment on above: Performed By: #### C DP, BMP #### [facility] [address] [place] [address] Residential Lawn Specialist: Victor Manuel Hunter DO Immature granulocytes (Bld) [#/Vol] NOT REPORTED Normal 0 [facility] Comment on above: Performed By: #### C DP, BMP #### [facility] [place] [address] Residential Lawn Specialist: Victor Manuel Hunter DO NRBC Automated NOT REPORTED Normal [facility] Comment on above: Performed By: #### C DP, BMP #### [facility] [place] [address] Residential Lawn Specialist: Victor Manuel Hunter DO Platelets (Bld) [#/Vol] NOT REPORTED Normal [facility] Comment on above: Performed By: #### C DP, BMP #### [facility] [address] [facility] [place] [address] Residential Lawn Specialist: Victor Manuel Hunter DO RBC morphology finding Nom (Bld) NOT REPORTED Normal [facility] Comment on above: Performed By: #### C DP, BMP #### [facility] [address] [place] [address] Residential Lawn Specialist: Victor Manuel Hunter DO WBC Morphology NOT REPORTED Normal [facility] Comment on above: Performed By: #### C DP, BMP #### [facility] [address] [place] [address] Residential Lawn Specialist: Victor Manuel Hunter DO Vital Signs Date Time Vital Sign Value Performing Clinician Facility 02-10-2024 14:44-0400 Body mass index (BMI) [Ratio] 29.39 kg/m2 Herber Nnamdi DO Work Phone: [facility] 02-10-2024 14:44-0400 Body weight 77.68 kg Herber Nnamdi DO Work Phone: [facility] 02-10-2024 14:44-0400 Diastolic blood pressure 68 mm[Hg] Herber Nnamdi DO Work Phone: [facility] 02-10-2024 14:44-0400 Systolic blood pressure 116 mm[Hg] Herber Nnamdi DO Work Phone: [facility] 01-29-2022 02:06-0400 Body weight 67.[address] ZEN BREWER . [facility] Comment on above: Performed By: #### [id number] #### [facility] [address] [address] [address] Garland Kohli Encounters Encounter Date Encounter Type Care Provider Facility Start: 02-10-2024 End: 02-10-2024 ambulatory HERBER NNAMDI Not Available Start: 02-10-2024 End: 02-10-2024 Bamboo flowsheet Herber Nnamdi DO Work Phone: [facility] Start: 02-10-2024 End: 02-17-2024 Bamboo flowsheet Herber Nnamdi DO Work Phone: [facility] Start: 02-10-2024 End: 02-17-2024 Clinisync Result Encounter Generic External Data Provider [facility] Unsolicited Start: 02-10-2024 End: 02-10-2024 Patient encounter procedure Herber Varmao DO Work Phone: [facility] Start: 02-10-2024 End: 02-10-2024 Periodic preventive med est patient 18-39 yrs Herber Nnamdi DO Work Phone: [facility] Comment on above: Well woman exam with routine gynecological exam; Screening, , for anatomic survey; Second trimester ; 19 weeks gestation of ; Screen for STD (sexually transmitted disease); Vaginal discharge; headache in second trimester Start: 01-11-2024 End: 01-11-2024 ambulatory HERBER NNAMDI Not Available Start: 12-11-2023 End: 12-11-2023 ambulatory SOFIE LAUSE Not Available Start: 10-16-2023 End: 10-16-2023 ambulatory TORI MARTINEZ Not Available Start: 07-17-2023 End: 07-17-2023 ambulatory TORI SAMUELCHOL Not Available Start: 07-13-2023 End: 07-13-2023 ambulatory Sofie Araceli Lause Facility:[facility] Start: 07-13-2023 End: 07-13-2023 ambulatory MD Carlos Alberto Coleman Work Phone: [facility] Work Phone: Start: 07-13-2023 End: 07-13-2023 Patient encounter procedure MD Carlos Alberto Coleman Work Phone: [facility] Start: 07-13-2023 End: 07-13-2023 ambulatory SOFIE R LAUSE Not Available Start: 06-02-2023 Refill Tori Martinez [place] Work Phone: [facility] Comment on above: Attention deficit hy peractivity disorder (ADHD), combined type ([facility] Start: 04-16-2023 End: 04-16-2023 ambulatory TORI MARTINEZ Not Available Start: 07-04-2022 End: 07-14-2022 ambulatory ÁNGEL SINHA Facility:[facility] Start: 07-01-2022 End: 07-01-2022 ambulatory ÁNGEL SINHA Facility:[facility] Start: 06-23-2022 End: 06-25-2022 Evaluation and management of inpatient JAZ MOULTON Facility:[facility] Start: 06-07-2022 End: 06-08-[address] DOCTOR MACK Facility:[facility] Start: 05-30-2022 End: 05-30-[address] ZEN BREWER . Facility:[facility] Start: 04-16-2022 End: 04-17-[address] HERBER COTO . Facility:[facility] Start: 04-04-2022 End: 04-04-[address] DEANNA LINN Facility:[facility] Start: 03-26-2022 End: 03-27-[address] ZEN BREWER . Facility:[facility] Start: 02-08-2022 End: 02-09-[address] ZEN BREWER . Facility:[facility] Start: 01-25-2022 End: 01-26-[address] ZEN BREWER . Facility:[facility] Start: 01-20-2022 Encounter for gynecological examination (general) (routine) without abnormal findings DR ZEN BREWER . [facility] Start: 01-17-2022 End: 01-17-[address] ZEN BREWER . Facility:[facility] Start: 01-17-2022 End: 01-17-2022 Encounter for gynecological examination (general) (routine) without abnormal findings DR ZEN BREWER . Facility:[facility] Start: 01-04-2022 End: 01-05-2022 ambulatory ÁNGEL SINHA Facility:[facility] Start: 12-14-2021 End: 12-15-[address] ZEN BREWER . Facility:[facility] Start: 11-26-2021 End: 11-27-2021 ambulatory ÁNGEL KIEPERT Facility:[facility] Start: 11-24-2018 End: 11-24-2018 Patient encounter procedure MODE RENEE [facility] Start: 11-10-2018 End: 11-15-2018 Patient encounter procedure MODE RENEE [facility] Procedures Date Procedure Procedure Detail Performing Clinician Start: 02-10-2024 Urnls dip stick/tabl et rgnt non-auto w/o micrscp Herber Nnamdi DO Work Phone: Start: 02-10-2024 IGP,APTIMA HPV,AGE GDLN Herber Nnamdi DO Work Phone: Start: 07-13-2023 Respiratory Panel (PCR) MD Carlos Alberto Coleman Work Phone: Start: 06-24-2022 Delivery of [...] MODE RENEE Start: 11-24-2018 NURSING COMMUNICATION Jimi RNEEE Start: 11-24-2018 Urine test visual color cmprsn meths MODE RENEE Start: 11-24-2018 INITIATE OXYGEN THER APY PROTOCOL MODE RENEE Start: 11-24-2018 NOTIFY PHYSICIAN (SPECIFY) MODE RENEE Start: 11-24-2018 VITAL SIGNS MODE ESPINO Start: 11-10-2018 Ecg routine ecg w/le ast 12 lds w/i&r MODE RENEE Start: 11-10-2018 EKG REPORT MODE ESPINO Start: 07-17-2019 Basic metabolic pane l calcium total MODE RENEE Start: 11-10-2018 Blood count complete auto&auto difrntl wbc MODE RENEE Plan of Treatment Date Care Activity Detail Author Start: 03-09-2024 End: 03-09-2024 Patient encounter procedure 03/09/2024 3:50 PM EST Routine [facility] [address] [place] [address] Tori Quintanilla, PA [address] [place] [address] [facility] Start: 02-10-2024 End: 02-09-2025 Alpha fetoprotein, maternal Alpha fetoprotein, maternal Lab Routine Second trimester 19 weeks gestation of Expected: 02/10/2024 (Approximate), Expires: 02/09/2025 [facility] Comment on above: Expected: 02/10/2024 (Approximate), Expires: 02/09/2025 Start: 02-10-2024 End: 02-09-2025 US for US OB ANATOMY SINGLE W US OB CERVICAL LENGTH Imaging Routine Screening, , for anatomic survey Expected: 02/10/2024 (Approximate), Expires: 02/09/2025 [facility] Comment on above: Expected: 02/10/2024 (Approximate), Expires: 02/09/2025 Start: 12-27-2023 Influenza vaccination Influenza Vacc ine (#1) [facility] Start: 10-25-2023 Influenza vaccination Influenza Vacc ine (#1) [facility] Comment on above: Postponed from 12/26 (Patient Refused) Start: 10-25-2023 Screening for malign ant neoplasm of cervix [facility] Start: 07-17-2023 End: 07-17-2023 Patient encounter procedure 07/17/2023 8:00 AM EDT Office Visit [facility] [address] [place] [address] Tori Martinez, [place] [address] [place] [address] [facility] Start: 2014 Screening for malign ant neoplasm of cervix Pap Smear [facility] CHLAMYDIA TRACHOMATI S (GENITO/STI) CHLAMYDIA TRACHOMATIS (GENITO/STI) Lab Routine Screen for STD (sexually transmitted disease) Vaginal discharge Ordered: 02/10/2024 [facility] Comment on above: Ordered: 02/10/2024 Cytology Cervical or vaginal smear or scraping study Pap Smear Pathology and Cytology Routine Well woman exam with routine gynecological exam Ordered: 02/10/2024 [facility] Comment on above: Ordered: 02/10/2024 Human papilloma viru s DNA [Presence] in Unspecified specimen by Probe with amplification HPV DNA probe, amplified Microbiology Routine Well woman exam with routine gynecological exam Ordered: 02/10/2024 [facility] Comment on above: Ordered: 02/10/2024 Neisseria gonorrhoea e DNA [Presence] in Unspecified specimen by JUAN with probe detection Neisseria gonorrhea DNA probe, direct Lab Routine Screen for STD (sexually transmitted disease) Vaginal discharge Ordered: 02/10/2024 [facility] Comment on above: Ordered: 02/10/2024 SURESWAB(R) ADVANCED VAGINITIS PLUS, TMA SURESWAB(R) ADVANCED VAGINITIS PLUS, TMA Pathology and Cytology Routine Screen for STD (sexually transmitted disease) Vaginal discharge Ordered: 02/10/2024 [facility] Work Phone: Comment on above: Ordered: 02/10/2024 Immunizations Immunization Date Immunization Notes Care Provider Byron carlson 05-05-2015 tetanus toxoid, redu catherine diphtheria toxoid, and acellular pertussis vaccine, adsorbed Tori Warchol [place] Work Phone: [facility] 02-14-2009 influenza, seasonal, injectable Tori Warchol [place] Work Phone: [facility] 02-14-2009 influenza virus vacc ine, unspecified formulation Tori Warchol [place] Work Phone: [facility] 12-12-2005 hepatitis A vaccine, unspecified formulation Tori Warchol [place] Work Phone: [facility] 12-12-2005 tetanus toxoid, redu catherine diphtheria toxoid, and acellular pertussis vaccine, adsorbed Tori Warchol [place] Work Phone: [facility] 11-19-1998 diphtheria, tetanus toxoids and acellular pertussis vaccine, unspecified formulation Tori Warchol [place] Work Phone: [facility] 11-19-1998 measles, mumps and rubella virus vaccine Tori Warchol [place] Work Phone: [facility] 11-19-1998 trivalent poliovirus vaccine, live, oral Tori Warchol [place] Work Phone: [facility] 09-14-1995 diphtheria, tetanus toxoids and acellular pertussis vaccine, unspecified formulation Tori Warchol [place] Work Phone: [facility] 09-14-1995 haemophilus influenz ae type b vaccine, conjugate unspecified formulation Tori Warchol [place] Work Phone: [facility] 11-20-1994 DTP-Haemophilus influenzae type b conjugate vaccine Otri Warchol [place] Work Phone: [facility] 11-20-1994 hepatitis B vaccine, pediatric or pediatric/adolescent dosage Tori Warchol [place] Work Phone: [facility] 11-20-1994 measles, mumps and rubella virus vaccine Tori Warchol [place] Work Phone: [facility] 11-20-1994 trivalent poliovirus vaccine, live, oral Tori Warchol [place] Work Phone: [facility] 09-18-1994 DTP-Haemophilus influenzae type b conjugate vaccine Tori Warchol [place] Work Phone: [facility] 09-18-1994 hepatitis B vaccine, pediatric or pediatric/adolescent dosage Tori Warchol [place] Work Phone: [facility] 09-18-1994 trivalent poliovirus vaccine, live, oral Tori Warchol [place] Work Phone: [facility] 1993 diphtheria, tetanus toxoids and pertussis vaccine Tori Warchol [place] Work Phone: [facility] 1993 haemophilus influenz ae type b vaccine, conjugate unspecified formulation Tori Warchol [place] Work Phone: [facility] 1993 hepatitis B vaccine, pediatric or pediatric/adolescent dosage Tori Warchol [place] Work Phone: [facility] 1993 trivalent poliovirus vaccine, live, oral Tori Michelle [place] Work Phone: [facility] Payers Date Payer Category Payer Medicaid [employer] [place] [id number] 2023 Self-pay [id number] 2022 Blue [employer] Blue [employer] BCBS [id number] 2022 Unknown BCBS BCBS xxxxxx [id number] 2022-Present [phone] [address] [place] [address] [id number] 2017 Private Health Insurance [id number] 1993 Unknown [id number] 2.16.840.1.506596.3.579. 2.176 1993 Unknown [id number] .16.840.1.853570.3.579. 2.176 1993 Unknown [id number] 2.16.840.1.587804.3.579. 2.593 1993 Unknown [id number] 2.16.840.1.929328.3.579. 2.593 1993 Unknown [id number] 2.16.840.1.529344.3.579. 2.593 1993 Unknown [id number] 2.16.840.1.022034.3.579. 2.593 1993 Unknown [id number] 2.16.840.1.481013.3.579. 2.593 1993 Unknown [id number] 2.16.840.1.905968.3.579. 2.593 1993 Unknown [id number] 2.16840.1.451998.3.579. 2.593 1993 Unknown [id number] 2.16.840.1.977630.3.579. 2.593 1993 Unknown [id number] 2.16.840.1.587049.3.579. 2.593 1993 Unknown [id number] 2.16.840.1.317005.3.579. 2.593 1993 Unknown [id number] 2.16.840.1.973486.3.579. 2.593 1993 Unknown [id number] 2.16.840.1.850751.3.579. 2.593 1993 Unknown [id number] 2.16.840.1.949473.3.579. 2.593 1993 Unknown [id number] 2.16.840.1.255471.3.579. 2.593 1993 Unknown [id number] 2.16.840.1.564803.3.579. 2.1259 1993 Unknown [id number] 2.16.840.1.547976.3.579. 2.1259 1993 Unknown [id number] 2.16.840.1.226175.3.579. 2.9 1993 Unknown [id number] 2.16.840.1.296153.3.579. 2.1259 1993 Unknown [id number] 2.16.840.1.207487.3.579. 2.1258 1993 Unknown [id number] 2.16.840.1.949806.3.579. 2.9 1993 Unknown [id number] 2.16.840.1.971840.3.579. 2.1259 1959 Self-pay [id number] 1959 Unknown [id number] 1959 Unknown [id number] 1959 Unknown [id number] Unknown [id number] 2.16.840.1.985376.3.579. 2.593 Unknown HCAP/HFA/FAP Active [id number] Unknown [id number] 2.16.840.1.636052.3.579. 2.531 Social History Date Type Detail Facility Start: 08-27-2016 End: 09-25-2022 Tobacco smoking status [facility] Never smoked tobacco [facility] Start: 09-25-2022 Tobacco use and exposure Smoke less tobacco non-user [facility] Start: 04-16-2023 End: 02-10-2024 Alcohol intake Current drinker of alcohol (finding) [facility] Start: 04-16-2023 End: 10-16-2023 Alcohol intake [facility] Start: 01-15-2023 End: 10-16-2023 Alcohol Use Disorder Identification Test - Consumption [...] Identifies as female gender (finding) [facility] Start: 10-08-2023 [facility] History of Present illness Narrative 02-10-2024 Lillie Azul RESOURCING CONSULTANT - 02/10/2024 1:50 PM EDT Note Date & Type Note Facility 02-10-2024 History of Presen t illness Narrative Reason for Appointment: Patient ID: Gayla Johnson is a 28 y.o. female who presents for Routine Visit Patient presents today for Annual Exam., STD Check., and Return OB appointment. MEDICATIONS Current Outpatient Medications Medication Instructions albuterol HFA 90 mcg/act inhaler 2 puffs, Inhalation, Every 4 hours PRN amphetamine-dextroamphetamine (Adderall) 20 MG tablet 20 mg, Oral, Daily amphetamine-dextroamphetamine XR (Adderall XR) 20 MG 24 hr capsule 20 mg, Oral, Every morning, Do not crush or chew. azithromycin (Zithromax Z-Darvin) 250 MG tablet As directed Calcium Citrate-Vitamin D (Calcium Citrate + D3) 250-200 MG-UNIT tablet Calcium Citrate + D3 famotidine (PEPCID) 20 mg, Oral, Every 12 hours fexofenadine (TASHA) 180 mg, Oral, Daily folic acid (FOLVITE) 1 mg, Oral, Daily ibuprofen 600 mg, Oral iron polysaccharides (PROFE) 391.3 mg, Oral, Daily lactase 9,000 Units, Oral lansoprazole (PREVACID) 30 mg, Oral, Every 24 hours levalbuterol (Xopenex) 1.25 MG/3ML nebulizer solution 1 ampule, Nebulization, Every 6 hours PRN levalbuterol (Xopenex) 45 MCG/ACT inhaler 1 puff, Inhalation, Every 4 hours PRN levothyroxine (SYNTHROID, LEVOXYL) 88 mcg, Oral, Every 24 hours loperamide (IMODIUM) 2 mg, Oral montelukast (SINGULAIR) 10 mg, Oral, Nightly NAPROXEN SODIUM PO 2 tablets, Oral, Daily PRN Ubrelvy 100 MG tablet ALLERGIES Allergies Allergen Reactions Ciprofloxacin Shortness of breath Ciprofloxacin Hcl Shortness of breath Clonidine Other Reaction(s): Unknown Clonidine Hcl Other Reaction(s): Unknown Doxycycline GI intolerance Other Reaction(s): vomiting Gluten Meal Other Reaction(s): Unknown Lactose Other Reaction(s): DIGESTIVE AIDS Lactose Intolerance (Gi) Octacosanol Other Other Reaction(s): Unknown Silver Other Reaction(s): Metals Wound Dressing Adhesive Other Reaction(s): unknown Cefuroxime Rash Other Reaction(s): Tongue tingly PROBLEMS Active Ambulatory Problems Diagnosis Date Noted Anxiety 09/01/2022 Gastroesophageal reflux disease without esophagitis 09/01/2022 Moderate persistent asthma without complication ([facility]) 09/01/2022 Hypothyroidism, unspecified ([facility]) 03/02/2020 Moderate asthma ([facility]) 01/11/2024 Resolved Ambulatory Problems Diagnosis Date Noted Acquired hypothyroidism ([facility]) 09/01/2022 Allergic rhinitis 09/01/2022 Amenorrhea 09/01/2022 Asthma without status asthmaticus ([facility]) 09/01/2022 Attention deficit hyperactivity disorder ([facility]) 09/01/2022 Asthma affecting , antepartum ([facility]) 09/01/2022 Binge eating disorder 09/01/2022 Difficulty concentrating 09/01/2022 Irregular menstrual cycle 09/01/2022 Left sided sciatica 09/01/2022 Insomnia 09/01/2022 Migraines ([facility]) 09/01/2022 Metallic taste 09/01/2022 Mild persistent asthma without complication ([facility]) 09/01/2022 MTHFR mutation 09/01/2022 Nondependent cannabis abuse 09/01/2022 Other chronic pain 09/01/2022 Seasonal allergies 09/01/2022 Skin sensation disturbance 09/01/2022 Transitory mood disturbance 09/01/2022 Verruca plantaris 09/01/2022 Past Medical History: Diagnosis Date Acid reflux ADHD (attention deficit hyperactivity disorder) ([facility]) Asthma ([facility]) GERD (gastroesophageal reflux disease) Hypothyroid ([facility]) Lactose intolerance Marijuana use Migraine ([facility]) Mild persistent asthma, uncomplicated ([facility]) Supervision of normal Thyroid disease ([facility]) HISTORY PAST MEDICAL HISTORY SOCIAL HISTORY Past Medical History: Diagnosis Date Acid reflux ADHD (attention deficit hyperactivity disorder) ([facility]) [facility] [facility] [place]) Asthma affecting , antepartum (CMS/HCC) GERD (gastroesophageal reflux disease) Hypothyroid (CMS/HCC) Lactose intolerance Marijuana use Migraine (CMS/HCC) Mild persistent asthma, uncomplicated (CMS/HCC) MTHFR mutation Seasonal allergies Supervision of normal Thyroid disease (CMS/HCC) Social History Tobacco Use Smoking status: Never Smokeless tobacco: Never Substance Use Topics Alcohol use: Yes Alcohol/week: 2.0 standard drinks of alcohol Types: 2 Glasses of wine per week Drug use: Never FAMILY HISTORY Family History Problem Relation Name Age of Onset Diabetes Mother Hyperlipidemia Mother Pulmonary embolism Father Asthma Father Hypertension Father Hyperlipidemia Father No Known Problems Sister No Known Problems Brother Asthma Maternal Grandmother Cervical cancer Maternal Grandmother COPD Maternal Grandmother Diabetes Maternal Grandmother Hypertension Maternal Grandmother Hyperlipidemia Maternal Grandmother Heart disease Maternal Grandmother Heart disease Paternal Grandmother Hypertension Paternal Grandfather Heart disease Paternal Grandfather Mental illness Paternal Grandfather COPD Paternal Grandfather No Known Problems Daughter Airebella SURGICAL HISTORY Past Surgical History: Procedure Laterality Date ADENOIDECTOMY 1998 EAR TUBE REMOVAL 1996 KNEE SURGERY Left 2008 Plica band removal, left knee arthroscopy [place] BREAST REDUCTION 10/2018 TONSILLECTOMY 1998 REVIEW OF SYSTEMS Review of Systems: Review of Systems Constitutional: Negative. HENT: Negative. Eyes: Negative. Respiratory: Negative. Cardiovascular: Negative. Gastrointestinal: Negative. Genitourinary: Negative. Musculoskeletal: Negative. Skin: Negative. Neurological: Negative. All other systems reviewed and are negative. Hematological: Negative. Endocrine: Negative. Allergic/Immunologic: Negative. OBJECTIVE Objective: OBGyn Exam Vitals: Estimated body mass index is 29.39 kg/m as calculated from the following: Height as of 10/16/23: 5' 4 . Weight as of this encounter: 171 lb 4 oz. BP: 116/68 Patient's last menstrual period was 09/24/2023 (exact date). ASSESSMENT & PLAN ICD-10-CM 1. Well woman exam with routine gynecological exam Z01.419 Pap Smear HPV DNA probe, amplified 2. Screening, , for anatomic survey Z36.89 US OB ANATOMY SINGLE W US OB CERVICAL LENGTH 3. Second trimester Z34.92 Alpha fetoprotein, maternal Alpha fetoprotein, maternal 4. 19 weeks gestation of Z3A.19 POCT urinalysis dipstick manually resulted Alpha fetoprotein, maternal Alpha fetoprotein, maternal 5. Screen for STD (sexually transmitted disease) Z11.3 SURESWAB(R) ADVANCED VAGINITIS PLUS, TMA CHLAMYDIA TRACHOMATIS (GENITO/STI) Neisseria gonorrhea DNA probe, direct 6. Vaginal discharge N89.8 SURESWAB(R) ADVANCED VAGINITIS PLUS, TMA CHLAMYDIA TRACHOMATIS (GENITO/STI) Neisseria gonorrhea DNA probe, direct Return OB/Annual Exam: Patient presents today for a annual exam/routine obstetrics appointment. Patient is currently 19w6d . Patient states she is doing well but has complaints of nausea in the morning. Pap and cultures was obtained without difficulty and patient was given orders for anatomy scan and msAFP to be obtained. Orders Placed This Encounter Procedures HPV DNA probe, amplified US OB ANATOMY SINGLE W US OB CERVICAL LENGTH CHLAMYDIA TRACHOMATIS (GENITO/STI) Neisseria gonorrhea DNA probe, direct Alpha fetoprotein, maternal POCT urinalysis dipstick manually resulted Follow Up: Patient is to schedule annual exam for next year and return to office in 4 weeks for OB appointment. Documented by Lillie Azul LPN on behalf of: Herber Coto DO documented in this encounter [facility] Telephone encounter Note 06-04-2023 Telephone [...] Patient requesting refill/[place] documented in this encounter [facility] Telephone encounter Note 06-02-2023 Telephone Encounter - Marysol Abena - 06/02/2023 5:03 PM EST Note Date & Type Note Facility 06-02-2023 Telephone encount er Note Patient requesting refill/[place] [facility] Evaluation note Note Date & Type Note Facility Evaluation note Diagnosis Attention deficit hyperactivity disorder (ADHD), combined type (CMS/HCC) documented in this encounter [facility] Evaluation note Note Date & Type Note Facility Evaluation note [facility]: Evaluation note Note Date & Type Note Facility Evaluation note Diagnosis Well woman exam with routine gynecological exam Routine gynecological examination Screening, , for anatomic survey Encounter for anatomic survey Second trimester state, incidental 19 weeks gestation of Screen for STD (sexually transmitted disease) Screening examination for venereal disease Vaginal discharge Leukorrhea, not specified as infective headache in second trimester documented in this encounter [facility] Summary Purpose Family History No Family History Records FoundNo Family History Records FoundNo Family History Records FoundNo Family History Records FoundNo Family History Records Found Advance Directives Advance Directive Response Recorded Date/ Time Advance Directives No July 12, 019 12:15pm Chief Complaint and Reason for Visit Chief Complaint r06.81 r05.9 Additional Source Comments INFORMATION SOURCE (unrecogn ized section and content) DATE CREATED AUTHOR 11/18/2018 [facility] DATE CREATED AUTHOR AUTHOR'S ORGANIZ ATION 11/26/2018 [facility] DATE CREATED AUTHOR AUTHOR'S ORGANIZ ATION 09/09/2022 [facility] DATE CREATED AUTHOR AUTHOR'S ORGANIZ ATION 08/27/2023 [facility] DATE CREATED AUTHOR AUTHOR'S ORGANIZ ATION 02/13/2024 [facility] EPIC Reason for Visit (unrecogniz ed section and content) Reason Onset Date Comments Med Refill 06/02/2023 Reason Comments Routine Visit Care Teams (unrecognized sec tion and content) [employer] Relationship Specialty Start Date End Date Carlos Alberto Coleman MD [address] [place] [address] PCP - General Family Medicine 09/24/22 Tori Martinez NP [address] [place] [phone] Nurse Practitioner Family Medicine 09/24/22 Sofie Gr NP [address] [place] [phone] Nurse Practitioner Pulmonary Disease 04/14/23 Team Status: Active Member Role Status Dates Carlos Alberto Coleman MD Primary Care Provider Active Team Status: Inactive Member Role Status Dates Carlos Alberto Coleman MD Primary Care Provider Active S tart: July 13, 2023 End: July 13, 2023 Sofie Gr NP-C Attending Provider Active Start: July 13, 2023 End: July 13, 2023 [employer] Relationship Specialty Start Date End Date Carlos Alberto Coleman MD [address] [place] [address] PCP - General Family Medicine 09/24/22 Tori Martinez NP [address] [place] [phone] PCP - [place] [employer] 05/28/23 Tori Martinez NP [address] [place] [phone] Nurse Practitioner Family Medicine 09/24/22 Sofie Gr NP [address] [place] [phone] Nurse Practitioner Pulmonary Disease 04/14/23 [employer] Relationship Specialty Start Date End Date Carlos Alberto Coleman MD [address] [place] [address] PCP - General Family Medicine 09/24/22 Tori Martinez NP [address] [place] [address] PCP - [employer] [employer] 05/28/23 Tori Martinez NP [address] [place] [address] Nurse Practitioner Family Medicine 09/24/22 Sofie Gr NP [address] [place] [place] [address] Nurse Practitioner Pulmonary Disease 04/14/23 [employer] Relationship Specialty Start Date End Date Carlos Alberto Coleman MD [address] [place] [place] [address] PCP - General Family Medicine 09/24/22 Tori Martinez NP [address] [place] [address] PCP - [facility] 05/28/23 Tori Martinez NP [address] [place] [place] [address] Nurse Practitioner Family Medicine 09/24/22 Sofie Gr NP [address] [place] [address] Nurse Practitioner Pulmonary Disease 04/14/23 Goals (unrecognized section and content) Goals may [...] BE BASED ON THE PRIMARY CLINICAL RECORDS. [facility] Need Fixed [facility]. provides no warranty or guarantee of the accuracy or completeness of information in this document.
--- NOTE | 2024-02-22 19:07 | US_ITS ---
[address] [address] Patient Name: JULIÁN JIMENEZ MRN: [id number] date: 1995 Sex: F Assigned Patient Location: US Current Patient Location: Accession/Order Number: [id number] Exam Date: 02/22/2024 19:12 Report Date: 02/23/2024 06:45 At the request of: LACY AVILES Procedure: US OB anatomy EXAMINATION: US OB transvaginal, US OB anatomy HISTORY: SCREENING, , FOR ANATOMIC SURVEY Z36.89 COMPARISON: No relevant comparison available. TECHNIQUE: Transabdominal sonographic examination was performed for obstetrical and evaluation. FINDINGS: Number: 1 Heart Rate: 156.98 bpm Amniotic Fluid Volume: Subjectively normal Placental Location: ANTERIOR with lower margin 1.8 cm from os. Cervix Length: 6.31 cm ; closed. ANATOMY: Normal Structures -cerebellum, choroid plexus, cisterna magna, lateral cerebral ventricles, orbits, midline falx, hard palate, four-chamber heart, RVOT, LVOT, stomach, kidneys, bladder, umbilical cord insertion into abdomen, three-vessel cord, right upper extremity, left upper extremity, right lower extremity, left lower extremity. SUBOPTIMALLY SEEN: Spine ABNORMALITIES: None BIOMETRY: BPD: 5.14 cm; 21 weeks 4 days; 48 % HC: 19.60 cm; 21 weeks 6 days; 49.30 % AC: 17.35 cm; 22 weeks 2 days; 66.30 % FL: 3.92 cm; 22 weeks 4 days; 75.30 % EFW:495.44 g; 82.70 % FL/AC: 22.62 FL/BPD: 76.39 HC/AC: 1.13 GESTATIONAL AGE: Age by EDC: 21 weeks 4 days Age by current US: 21 weeks 6 days SERENA by current US: 2024-06-28 SERENA by EDC: 2024-06-30 US/US OB anatomy IMPRESSION: 1. Single live intrauterine with growth detailed above. 2. Suboptimal visualization of the spine due to position. 3. Low-lying anterior placenta. Electronically authenticated by: YAAKOV TERAN Date: 02/23/2024 06:45
--- NOTE | 2024-02-22 19:07 | US_ITS ---
[address] [address] Patient Name: JULIÁN JIMENEZ MRN: [id number] date: 1995 Sex: F Assigned Patient Location: US Current Patient Location: Accession/Order Number: [id number] Exam Date: 02/22/2024 19:12 Report Date: 02/23/2024 06:45 At the request of: LACY AVILES Procedure: US OB transvaginal EXAMINATION: US OB transvaginal, US OB anatomy HISTORY: SCREENING, , FOR ANATOMIC SURVEY Z36.89 COMPARISON: No relevant comparison available. TECHNIQUE: Transabdominal sonographic examination was performed for obstetrical and evaluation. FINDINGS: Number: 1 Heart Rate: 156.98 bpm Amniotic Fluid Volume: Subjectively normal Placental Location: ANTERIOR with lower margin 1.8 cm from os. Cervix Length: 6.31 cm ; closed. ANATOMY: Normal Structures -cerebellum, choroid plexus, cisterna magna, lateral cerebral ventricles, orbits, midline falx, hard palate, four-chamber heart, RVOT, LVOT, stomach, kidneys, bladder, umbilical cord insertion into abdomen, three-vessel cord, right upper extremity, left upper extremity, right lower extremity, left lower extremity. SUBOPTIMALLY SEEN: Spine ABNORMALITIES: None BIOMETRY: BPD: 5.14 cm; 21 weeks 4 days; 48 % HC: 19.60 cm; 21 weeks 6 days; 49.30 % AC: 17.35 cm; 22 weeks 2 days; 66.30 % FL: 3.92 cm; 22 weeks 4 days; 75.30 % EFW:495.44 g; 82.70 % FL/AC: 22.62 FL/BPD: 76.39 HC/AC: 1.13 GESTATIONAL AGE: Age by EDC: 21 weeks 4 days Age by current US: 21 weeks 6 days SERENA by current US: 2024-06-28 SERENA by EDC: 2024-06-30 US/US OB transvaginal IMPRESSION: 1. Single live intrauterine with growth detailed above. 2. Suboptimal visualization of the spine due to position. 3. Low-lying anterior placenta. Electronically authenticated by: YAAKOV TERAN Date: 02/23/2024 06:45
== END 2024-02-22 19:01 | disposition home or self-care (01) ==
LOC: US 19:01
PROVIDERS: PCP Family Medicine; Visit Provider Obstetrics & Gynecology
DX: Z36.89 Encounter for other specified antenatal screening (principal); Z3A.21 21 weeks gestation of pregnancy
CPT/HCPCS: 76805; 76817

== ENCOUNTER 2024-03-19 08:11 | Outpatient (OUT) | payer BC, MEDICAID, SELFPAY ==
--- OUTSIDE RECORDS SUMMARY | 2024-03-19 08:15 | XMS_ITS | CCD ---
Author Organization [facility] Care Team Providers Care Club Steward Name Role Phone MILTON RENEEISH R Referring Unavailable COLEMAN, CARLOS ALBERTO Primary Care Unavailable RENEE MODE R Admitting Unavailable RENEE MODE R Attending Unavailable COLEMAN, CARLOS ALBERTO Primary Care Unavailable KARASIK ., DR ZALDIVAR Consulting Unavailabl e KIEPERT, ÁNGEL Primary Care Unavailable KARASIK ., DR ZALDIVAR Attending Unavailabl e KARASIK ., DR ZALDIVAR Admitting Unavailabl e ZIEBER, DR YAAKOV Miranda Consulting Unavailable KIEPERT, ÁNGEL Consulting Unavailable KIEPERT, ÁNGEL Primary Care Unavailable KIEPERT, ÁNGEL Attending Unavailable KIEPERT, ÁNGEL Admitting Unavailable BELLE, DR DEANNA Lance Consulting Unavailable PAY ., [...] Unavailable NNAMDI ., DR HOUSE Admitting Unavailable KARMARIO, JAZ Procedure Practitioner Unavailab le KARASIK ., DR ZALDIVAR Consulting Unavailabl e KUNS, DR ORE Primary Care Unavailable KARASIK ., DR ZALDIVAR Attending Unavailabl e KARASIK ., DR ZALDIVAR Admitting Unavailabl e NNAMDI ., DR HOUSE Consulting Unavailable KARAMLOU JAZ Consulting Unavailable KARASIK ., DR ZALDIVAR Procedure [...] Carlos Alberto Coleman MD Primary Care Provider [phone] Michelle AOC PLANS INTELLIGENCE OFFICER CHIEF, Tori Unavailable Maile AOC PLANS INTELLIGENCE OFFICER CHIEF, Sofie R Unavailable [phone] MD Carlos Alberto Coleman Primary Care Provider [phone] HEATHER Gr Attending Provider Maile AOC PLANS INTELLIGENCE OFFICER CHIEF, Sofie R Unavailable Michelle AOC PLANS INTELLIGENCE OFFICER CHIEF, Tori Unavailable SOFIE GR Attending Unavailable SAMUELCHOL, TORI Attending Unavailable WARCHOL, TORI Attending Unavailable NNAMDI, HERBER Attending Unavailable HERBER COTO Attending Unavailable TORI MARTINEZ Attending Unavailable TORI PEPE Attending Unavailable Sofie Gr Attending Unavailable Sofie Gr Admitting Unavailable Carlos Alberto Coleman Primary Care Unavailable Allergies Allergy Classification Reported Allergen(s) Allergy Type Date of Onset Reaction(s) Facility (1 source) Cefuroxime Drug Allergy 04-04-20 22 [facility] (2 sources) Ciprofloxacin Drug Allergy 04-03-20 16 [facility] (2 sources) Doxycycline Drug Allergy 05-20-19 21 vomiting [facility] (1 source) Flupenthixol Drug Allergy 04-04-20 22 [facility] (7 sources) Cefuroxime Drug Allergy 05-20-19 21 Rash [facility] (6 sources) Ciprofloxacin Drug Allergy 09-02-19 23 Shortness of breath [facility] (6 sources) Ciprofloxacin Drug Allergy 09-02-19 23 Shortness of breath [facility] (6 sources) cloNIDine Drug Allergy 03-14-20 21 [facility] (6 sources) cloNIDine Drug Allergy 09-02-19 23 [facility] (6 sources) Doxycycline Drug Allergy 05-20-19 21 GI intolerance [facility] (6 sources) Gluten Propensity to adverse reactions 11-11-19 19 [facility] (6 sources) Lactose (non-medical use) Allergy to substance 09-02-19 23 [facility] (6 sources) Lactose (non-medical use) Drug Intolerance 11-11-19 19 [facility] (6 sources) Octacosanol Drug Intolerance 11-11-19 19 [facility] (6 sources) Other Allergy to substance 11-11-19 19 [facility] (6 sources) Silver Allergy to substance 09-02-19 23 [facility] (6 sources) Wound Dressing Adhesive Drug Allergy 09-02-19 23 [facility] (1 source) Cefuroxime Drug Allergy 05-20-19 21 [facility] (1 source) Ciprofloxacin Drug Allergy 05-20-19 21 [facility] (1 source) Doxycycline Drug Allergy 05-20-19 21 [facility] Medications Current Medications Medication Drug Class(es) Dates Sig (Normalized) Sig (Original) [id number] 200 actuat albuterol 0.09 mg/actuat metered dose inhaler (6 sources) beta2-Adrenergic Agonist Start: 10-16-2023 End: 04-13-2024 [...] sulfate 5 mg extended release oral capsule (11 sources) Central Nervous System Stimulant Start: 10-23-2023 take 1 tablet by mouth once daily amphetamine-dextroamphetamine (Adderall) 20 MG tablet Indications: Attention deficit hyperactivity disorder (ADHD), combined type (CMS/HCC) Take 1 tablet (20 mg) by mouth Daily Do not start before October 23, 2023. 30 tablet 10/23/2023 Active Start: 10-23-2023 take 1 capsule by mo ut every twenty-four hours in the morning amphetamine-dextroamphetamine [...] Discontinued (Reorder) azithromycin 250 mg oral tablet (5 sources) Macrolide Antimicrobial Start: 01-26-2024 azithromycin (Zithromax Z-Darvin) 250 MG tablet Indications: Upper respiratory tract infection, unspecified type As directed 6 tablet 01/26/2024 Active calcium citrate 1190 mg / cholecalciferol 0.005 mg oral tablet (6 sources) Vitamin D Calcium Citrate-Vitamin D (Calcium Citrate + D3) 250-200 MG-UNIT tablet Calcium Citrate + D3 Active famotidine 20 mg oral tablet (6 sources) Histamine-2 Receptor Antagonist Start: 10-16-2023 End: [...] Active fexofenadine hydrochloride 180 mg oral tablet (6 sources) Histamine-1 Receptor Antagonist take 1 tablet [...] Active folic acid 1 mg oral tablet (5 sources) Start: End: take 1 tablet by mouth once daily folic acid (Folvite) 1 MG tablet Indications: Second trimester Take 1 tablet (1 mg) by mouth Daily 30 tablet 6 01/18/2024 01/17/2025 Active ibuprofen 600 mg oral tablet (6 sources) Nonsteroidal Anti-inflammatory Drug ibuprofen 600 MG tablet Take 600 mg by mouth. Active lactase 9000 unt oral tablet (6 sources) lactase 9000 uni ts tablet Take 9,000 Units by mouth. Active lansoprazole 30 mg delayed release oral capsule (6 sources) Proton Pump Inhibitor Start: End: take [...] time 90 capsule 1 04/16/2023 10/13/2023 Active levalbuterol 0.417 mg/ml inhalation solution (11 sources) beta2-Adrenergic Agonist Start: 10-16-2023 leval buterol (Xopenex) 1.25 MG/3ML nebulizer solution Indications: Moderate persistent asthma without complication (CMS/HCC) Take 1 ampule by nebulization every 6 (six) hours if needed for shortness of breath 72 mL 1 10/16/2023 Active Start: 10-16-2023 End: 04-13-2024 take 1 puff(s) by inhalation every four hours for wheezing levalbuterol (Xopenex) 45 MCG/ACT inhaler Indications: Moderate persistent asthma without complication (CMS/HCC) Inhale 1 puff every 4 (four) hours if needed for wheezing 15 g 5 10/16/2023 03/11/2024 Discontinued (Reorder) Start: 04-16-2023 End: 07-15-2023 levalbuterol (Xopenex) 1.25 [...] Active levothyroxine sodium 0.088 mg oral tablet (6 sources) l-Thyroxine Start: 10-16-2023 End: 04-13-2024 take [...] Active loperamide hydrochloride 2 mg oral capsule (6 sources) Opioid Agonist loperamide (Imod ium) 2 MG capsule Take 2 mg by mouth. Active montelukast 10 mg oral tablet (6 sources) Leukotriene Receptor Antagonist Start: 10-16-19 End: [...] 90 tablet 1 04/16/2023 10/13/2023 Active Naproxen (6 sources) Nonsteroidal Anti-inflammatory Drug take 2 tablets [...] 02/10/2024 Active ubrogepant 100 mg oral tablet (5 sources) Start: 04-24-2023 Ubrelvy 100 MG tablet 04/24/2023 Active Completed/Discontinued Medications Medication Drug Class(es) Dates Sig (Normalized) Sig (Original) magnesium oxide 400 mg oral tablet (4 sources) Start: 02-10-2024 End: 03-11-2024 take 1 tablet by mouth once daily magnesium oxide (Mag-Ox) 400 MG tablet Indications: headache in second trimester Take 1 tablet (400 mg) by mouth Daily 30 tablet 6 02/10/2024 03/11/2024 Problems Active Problems Problem Classification Problem Date Documented Date Episodic/Chronic Anxiety disorders (6 sources) Anxiety; Translations: [Anxiety disorder, unspecified] Onset: 09-01-2022 09-01-2022 Chronic Asthma (20 sources) Uncomplicated moderate persistent asthma; Translations: [Moderate persistent asthma, uncomplicated] Onset: 09-01-2022 Resolved: 11-13-2022 09-01-2022 Chronic Attention-deficit, conduct, and disruptive behavior disorders (1 source) Attention deficit hyperactivity disorder, combined type; Translations: [Attention-deficit hyperactivity disorder, combined type] 06-02-2023 Chronic Esophageal disorders (6 sources) Gastroesophageal reflux disease without esophagitis; Translations: [...] vagina] 02-10-2024 Episodic Other nervous system disorders (6 sources) Chronic pain; Translations: [Other chronic pain] [...] for other specified screening] Onset: 12-17-2021 Episodic Residual codes; unclassified (1 source) 39 weeks gestation of ; Translations: [39 WEEKS GESTATION OF ] Onset: 06-30-2022 Episodic Residual codes; unclassified (2 sources) Gestation period, 19 weeks; Translations: [19 weeks gestation of ] 02-10-2024 Episodic Thyroid disorders (17 sources) Hypothyroidism, unspecified; Translations: [Hypothyroidism] Onset: 03-02-2020 Resolved: 11-13-2022 Chronic Unclassified (1 source) Cough, unspecified; Translations: [Cough, unspecified] Onset: 07-13-2023 Viral infection (1 source) COVID-19; Translations: [COVID-19] Onset: 04-08-2022 Past or Other Problems Problem Classification Problem Date Documented Date Episodic/Chronic Attention-deficit, conduct, and disruptive behavior disorders (6 sources) Attention deficit hyperactivity disorder; Translations: [Attention-deficit hyperactivity disorder, unspecified type] Onset: 09-01-2022 Resolved: 11-13-2022 11-13-2022 Chronic Diabetes or abnormal glucose tolerance complicating ; childbirth; or the puerperium (4 sources) Abnormal glucose complicating ; Translations: [ABNORMAL GLUCOSE COMP ] Onset: 04-16-2022 Episodic Headache; including migraine (6 sources) Migraine; Translations: [Migraine, unspecified, not intractable, without status migrainosus] Onset: 09-01-2022 Resolved: 11-13-2022 11-13-2022 Chronic Menstrual disorders (16 sources) Irregular menstruation, unspecified; Translations: [Amenorrhea] Onset: 12-14-2021 Resolved: 11-13-2022 Chronic Miscellaneous mental health disorders (6 sources) Binge eating disorder; Translations: [Binge eating disorder] Onset: 09-01-2022 Resolved: 11-13-2022 11-13-2022 Chronic Miscellaneous mental health disorders (6 sources) Transitory mood disturbance; Translations: [ mood [...] TRI] Onset: 11-30-2021 Episodic Other complications of (6 sources) Asthma in ; Translations: [Diseases of the respiratory system complicating , unspecified trimester] Onset: 09-01-2022 Resolved: 11-13-2022 11-13-2022 Episodic Other nervous system disorders (6 sources) Poor concentration; Translations: [Attention and concentration deficit] Onset: 09-01-2022 Resolved: 11-13-2022 11-13-2022 Chronic Other nervous system disorders (6 sources) Metallic taste; Translations: [Other disturbances of smell and taste] Onset: 09-01-2022 Resolved: 11-13-2022 11-13-2022 Episodic Other nervous system disorders (6 sources) Skin sensation disturbance; Translations: [Unspecified disturbances of skin sensation] Onset: 09-01-2022 Resolved: 11-13-2022 11-13-2022 Episodic Other upper respiratory disease (6 sources) Allergic rhinitis; Translations: [Allergic rhinitis, unspecified] Onset: 09-01-2022 Resolved: 11-13-2022 11-13-2022 Chronic Other upper respiratory disease (6 sources) Seasonal allergy; Translations: [Other seasonal allergic rhinitis] Onset: 09-01-2022 Resolved: 11-13-2022 11-13-2022 Chronic Other upper respiratory disease (1 source) Nasal congestion; Translations: [Nasal congestion] Onset: 07-13-2023 Episodic Other upper respiratory infections (1 source) Acute [...] ] Onset: 11-30-2021 Episodic Residual codes; unclassified (6 sources) Insomnia; Translations: [Insomnia, unspecified] Onset: 09-01-2022 Resolved: 11-13-2022 11-13-2022 Episodic Residual codes; unclassified (6 sources) Hereditary disorder of endocrine system; Translations: [Genetic susceptibility to other disease] Onset: 09-01-2022 Resolved: 11-13-2022 11-13-2022 Episodic Spondylosis; intervertebral disc disorders; other back problems (6 sources) Sciatica; Translations: [Sciatica, left side] Onset: 09-01-2022 Resolved: 11-13-2022 11-13-2022 Episodic Substance-related disorders (6 sources) Nondependent cannabis abuse ; Translations: [Cannabis abuse, uncomplicated] Onset: 09-01-2022 Resolved: 11-13-2022 11-13-2022 Chronic Viral infection (6 sources) Verruca plantaris; Translations: [Plantar wart] Onset: 09-01-2022 Resolved: 11-13-2022 11-13-2022 Episodic Results Test Name Value Interpretation Reference Range Facility IGP,APTIMA HPV,AGE GDLNon AGE GDLN ACOG TESTING Note . [facility] Comment on above: TESTS RESULT FLAG UN ITS REF RANGE LAB Clinician Provided Cytology Information Source.............Cervix No. of containers..01 ThinPrep Vial Age Algo ACOG Sonja... FLAG LEGEND: L-Low Normal,H-High Normal,LL-Alert Low,HH-Alert High <-Panic Low,>-Panic High,A-Abnormal,AA-Critical Abnormal Performed at: 01 =[address] [place] [address] Radha Browne MD, HPV APTIMA Negative Negative [facility] Comment on above: This nucleic acid am plification test detects fourteen high- risk HPV types (16,18,31,33,35,39,45,51,52,56,58,59,66,68) without differentiation. Performed at: =[address] [id number] Chip Unloader: Radha Browne MD, Phone: [phone] Performed at: [address] [id number] Chip Unloader: Radha Browne MD, Phone: [phone] IGP, APTIMA HPV, RFX 16/18,45 Note . [facility] Comment on above: TESTS RESULT FLAG UN ITS REF RANGE LAB DIAGNOSIS: 02 NEGATIVE FOR INTRAEPITHELIAL LESION OR MALIGNANCY. Specimen adequacy: 02 Satisfactory for evaluation. No endocervical component is identified. Performed by: 02 Danie Vargas, Machine Assistant (ASC) . 02 Note: Note 02 The Pap [...] <-Panic Low,>-Panic High,A-Abnormal,AA-Critical Abnormal Performed at: 02 [facility] [address] [place] [address] Radha Browne MD, SPATULA-ALONE CERVIX [facility] Urinalysis macro (dipstick) panel (U)on 02-10-2024 Bilirubin, UA Negative Negative - 4(70) +++ mg/dL [facility] Blood, UA Negative Negative - 50 Mendel/mcL [facility] Clarity, UA Clear [facility] Color, UA Yellow [facility] Glucose, UA Negative Negative - 1999(110) ++++ mg/dL [facility] Interpretation and review of laboratory results Abnormal [facility] Ketones, UA Negative Negative - 160(16) ++++ mg/dL [facility] Leukocytes, UA Trace Negative - 500+++ Leighann/mcL [facility] Nitrite, UA Negative Negative - Positive [facility] pH, UA 7 5 - 9 [facility] Protein, UA Negative Negative - 1999(20) ++++ mg/dL [facility] Spec Grav, UA 1.02 1 - 1.03 [facility] Urobilinogen, UA 0.2 0.2 - 12 mg/dL Critical access hospital BioFire Not Detectedon 07-12 BioFire Not Detected Not detected Normal Not Detecte T krystina [facility] Comment on above: Result Comment: This is a duplicate RP2.1 COVID (PCR) result to be used for statistical tracking purpose only. PERFORMED BY: [facility] [place] [address] PATHOLOGIST SECOND CRUSHER CATY NEELY M.D. Performed By: #### R RODGER PANEL UPP., BIOFIRECOVNOTDE #### [facility] [address] COVID-19 Detected/Not Detect edOrdered By: Sofie Gr on 07-13-2023 SARS-CoV-2 (COVID-19) RNA JUAN+non-probe Ql (Nph) Not detected Not Detecte [facility] Comment on above: This [...] Influenza A H3 Blank Space PERFORMED BY: [address] [place] [address] PATHOLOGIST SECOND CRUSHER CATY NEELY M.D. Normal The [facility] Comment on above: Performed By: #### R RODGER PANEL UPP., BIOFIRECOVNOTDE #### [facility] [address] [id number] [facility] Respiratory pathogens DNA an d RNA panel - Nasopharynx by JUAN with non-probe detectionOrdered By: Sofie Gr on 07-13-2023 Respiratory pathogens DNA and RNA panel JUAN+non-probe (Nph) [facility] CBC AUTO DIFFon 06-25-2022 BASO # 0.0 103/ul Normal 0.0-0.1 [facility] Comment on above: Performed By: #### C BC #### [facility] [address] [address] [address] Garland Kohli Basophils/100 WBC (Bld) 0.4 % Normal 0.2-2.0 [facility] Comment on above: Performed By: #### C BC #### [facility] [address] [address] [address] Garland Kohli EO # 0.1 103/ul Normal 0.0-0.7 [facility] Comment on above: Performed By: #### C BC #### [facility] [address] [address] [address] Garland Kohli Eosinophils/100 WBC (Bld) 0.9 % Normal 0.9-7.0 [facility] Comment on above: Performed By: #### C BC #### [facility] [address] [address] [address] Garland Kohli Erythrocyte distribution width (RBC) [Ratio] 12.4 % Normal 11.0-15.0 [facility] Comment on above: Performed By: #### C BC #### [facility] [address] [address] [address] Garland Kholi Hematocrit (Bld) [Volume fraction] 31.4 % Critically low 36.0-48.0 [facility] Comment on above: Performed By: #### C BC #### [facility] [address] [address] [address] Garland Kohli Hemoglobin (Bld) [Mass/Vol] 10.4 g/dL Critically low 12.0-16.0 [facility] Comment on above: Performed By: #### C BC #### [facility] [address] [place] [address] Dr. Garland Kohli IG # 0.04 10e3/ul Critically high 0.00-0.03 [facility] Comment on above: Performed By: #### C BC #### [facility] [address] [place] [address] Dr. Garland Kohli IG % 0.4 % Normal 0.0-0.5 [facility] Comment on above: Performed By: #### C BC #### [facility] [address] [place] [address] Dr. Garland Kohli LYMPH # 2.0 103/ul Normal 1.2-3.8 [facility] Comment on above: Performed By: #### C BC #### [facility] [address] [place] [address] Dr. Garland Kohli Lymphocytes/100 WBC (Bld) 22.1 % Normal 20.5-60.0 [facility] Comment on above: Performed By: #### C BC #### [facility] [address] [place] [address] Dr. Garland Kohli MANUAL DIFF REQ NO Normal [facility] Comment on above: Performed By: #### C BC #### [facility] [address] [place] [address] Dr. Garland Kohli MCH (RBC) [Entitic mass] 30.1 pg Normal 26.7-34.0 [facility] Comment on above: Performed By: #### C BC #### [facility] [address] [place] [address] Dr. Garland Kohli MCHC (RBC) [Mass/Vol] 33.1 g/dL Normal 29.9-35.2 [facility] Comment on above: Performed By: #### C BC #### [facility] [address] [place] [address] Dr. Garland Kohli MCV (RBC) [Entitic vol] 91.0 fL Normal 81.0-99.0 [facility] Comment on above: Performed By: #### C BC #### [facility] [address] [place] [address] Dr. Garland Kohli MONO # 0.8 103/ul Normal 0.3-0.8 [facility] Comment on above: Performed By: #### C BC #### [facility] [address] [place] [address] Dr. Garland Kohli Monocytes/100 WBC (Bld) 8.8 % Normal 1.7-12.0 [facility] Comment on above: Performed By: #### C BC #### [facility] [address] [place] [address] Dr. Garland Kohli NEUT # 6.0 103/ul Normal 1.4-6.5 [facility] Comment on above: Performed By: #### C BC #### [facility] [address] [place] [address] Dr. Garland Kohli Neutrophils/100 WBC (Bld) 67.4 % Normal 43.0-75.0 [facility] Comment on above: Performed By: #### C BC #### [facility] [address] [place] [address] Dr. Garland Kohli Platelet mean volume (Bld) [Entitic vol] 12.0 fL Normal 9.5-13.5 [facility] Comment on above: Performed By: #### C BC #### [facility] [address] [place] [address] Dr. Garland Kohli PLT 151 103/ul Normal 150-450 [facility] Comment on above: Performed By: #### C BC #### [facility] [address] [place] [address] Dr. Garland Kohli RBC 3.45 106/ul Critically low 4.20-5.[address] [facility] Comment on above: Performed By: #### C BC #### [facility] [address] [place] [address] Dr. Garland Kohli WBC 8.9 103/ul Normal 4.0-11.0 [facility] Comment on above: Performed By: #### C BC #### [facility] [address] [place] [address] Dr. Garland Kohli CBC AUTO DIFFon 02-27-2023 BASO # 0.0 103/ul Normal 0.0-0.1 [facility] Comment on above: Performed By: #### C BC #### [facility] [address] [place] [address] Dr. Garland Kohli Basophils/100 WBC (Bld) 0.4 % Normal 0.2-2.0 [facility] Comment on above: Performed By: #### C BC #### [facility] [address] [place] [address] Dr. Garland Kohli EO # 0.1 103/ul Normal 0.0-0.7 [facility] Comment on above: Performed By: #### C BC #### [facility] [address] [place] [address] Dr. Garland Kohli Eosinophils/100 WBC (Bld) 0.8 % Critically low 0.9-7.0 [facility] Comment on above: Performed By: #### C BC #### [facility] [address] [place] [address] Dr. Garland Kohli Erythrocyte distribution width (RBC) [Ratio] 12.4 % Normal 11.0-15.0 [facility] Comment on above: Performed By: #### C BC #### [facility] [address] [place] [address] Dr. Garland Kohli Hematocrit (Bld) [Volume fraction] 34.5 % Critically low 36.0-48.0 [facility] Comment on above: Performed By: #### C BC #### [facility] [address] [place] [address] Dr. Garland Kohli Hemoglobin (Bld) [Mass/Vol] 11.6 g/dL Critically low 12.0-16.0 [facility] Comment on above: Performed By: #### C BC #### [facility] [address] [place] [address] Dr. Garland Kohli IG # 0.04 10e3/ul Critically high 0.00-0.03 [facility] Comment on above: Performed By: #### C BC #### [facility] [address] [place] [address] Dr. Garland Kohli IG % 0.5 % Normal 0.0-0.5 [facility] Comment on above: Performed By: #### C BC #### [facility] [address] [place] [address] Dr. Garland Kohli LYMPH # 1.3 103/ul Normal 1.2-3.8 [facility] Comment on above: Performed By: #### C BC #### [facility] [address] [place] [address] Dr. Garland Kohli Lymphocytes/100 WBC (Bld) 17.6 % Critically low 20.5-60.0 [facility] Comment on above: Performed By: #### C BC #### [facility] [address] [place] [address] Dr. Garland Kohli MANUAL DIFF REQ NO Normal [facility] Comment on above: Performed By: #### C BC #### [facility] [address] [place] [address] Dr. Garland Kohli MCH (RBC) [Entitic mass] 29.6 pg Normal 26.7-34.0 [facility] Comment on above: Performed By: #### C BC #### [facility] [address] [place] [address] Dr. Garland Kohli MCHC (RBC) [Mass/Vol] 33.6 g/dL Normal 29.9-35.2 [facility] Comment on above: Performed By: #### C BC #### [facility] [address] [place] [address] Dr. Garland Kohli MCV (RBC) [Entitic vol] 88.0 fL Normal 81.0-99.0 [facility] Comment on above: Performed By: #### C BC #### [facility] [address] [place] [address] Dr. Garland Kohli MONO # 0.9 103/ul Critically high 0.3-0.8 [facility] Comment on above: Performed By: #### C BC #### [facility] [address] [place] [address] Dr. Garland Kohli Monocytes/100 WBC (Bld) 11.7 % Normal 1.7-12.0 [facility] Comment on above: Performed By: #### C BC #### [facility] [address] [place] [address] Dr. Garland Kohli NEUT # 5.1 103/ul Normal 1.4-6.5 [facility] Comment on above: Performed By: #### C BC #### [facility] [address] [place] [address] Dr. Garland Kohli Neutrophils/100 WBC (Bld) 69.0 % Normal 43.0-75.0 [facility] Comment on above: Performed By: #### C BC #### [facility] [address] [place] [address] Dr. Garland Kohli Platelet mean volume (Bld) [Entitic vol] 12.1 fL Normal 9.5-13.5 [facility] Comment on above: Performed By: #### C BC #### [facility] [address] [place] [address] Dr. Garland Kohli PLT 193 103/ul Normal 150-450 [facility] Comment on above: Performed By: #### C BC #### [facility] [address] [place] [address] Dr. Garland Kohli RBC 3.92 106/ul Critically low 4.20-5.40 [facility] Comment on above: Performed By: #### C BC #### [facility] [address] [place] [address] Dr. Garland Kohli WBC 7.4 103/ul Normal 4.0-11.0 [facility] Comment on above: Performed By: #### C BC #### [facility] [address] [place] [address] Dr. Garland Kohli DRUG SCREEN RAPID (URINE)on 06-23-2022 AMP Negative Normal NEGATIVE [facility] Comment on above: Performed By: #### D RUGRPD #### [facility] [address] [place] [address] Dr. Garland Kohli BAR Negative Normal NEGATIVE [facility] Comment on above: Performed By: #### D RUGRPD #### [facility] [address] [place] [address] Dr. Garland Kohli BUP Negative Normal NEGATIVE [facility] Comment on above: Performed By: #### D RUGRPD #### [facility] [address] [place] [address] Dr. Garland Kohli BZO Negative Normal NEGATIVE [facility] Comment on above: Performed By: #### D RUGRPD #### [facility] [address] [place] [address] Dr. Garland Kohli JUANI Negative Normal NEGATIVE [facility] Comment on above: Performed By: #### D RUGRPD #### [facility] [address] [place] [address] Dr. Garland Kohli CUT-OFFS SEE BELOW Normal [facility] Comment on above: Result Comment: AMP [...] ng/mL Performed By: #### D RUGRPD #### [facility] [address] [place] [address] Dr. Garland Kohli DRUG CUT HEADER DRUG CLASS TEST SYSTEM CUT-OFF CONCENTRATIONS ARE FOLLOWS: Normal [facility] Comment on above: Performed By: #### D RUGRPD #### [facility] [address] [place] [address] Dr. Garland Kohli mAMP Negative Normal NEGATIVE [facility] Comment on above: Performed By: #### D RUGRPD #### [facility] [address] [place] [address] Dr. Garland Kohli MTD Negative Normal NEGATIVE [facility] Comment on above: Performed By: #### D RUGRPD #### [facility] [address] [place] [address] Dr. Garland Kohli OPI Negative Normal NEGATIVE [facility] Comment on above: Performed By: #### D RUGRPD #### [facility] [address] [place] [address] Dr. Garland Kohli OXY Negative Normal NEGATIVE [facility] Comment on above: Performed By: #### D RUGRPD #### [facility] [address] [address] [address] Garland Kohli PCP Negative Normal NEGATIVE [facility] Comment on above: Performed By: #### D RUGRPD #### [facility] [address] [place] [address] Dr. Garland Kohli PPX Negative Normal NEGATIVE [facility] Comment on above: Performed By: #### D RUGRPD #### [facility] [address] [place] [address] Dr. Garland Kohli TCA Negative Normal NEGATIVE [facility] Comment on above: Performed By: #### D RUGRPD #### [facility] [address] [place] [address] Dr. Garland Kohli THC Negative Normal NEGATIVE [facility] Comment on above: Performed By: #### D RUGRPD #### [facility] [address] [place] [address] Dr. Garland Kohli TYPE AND SCREENon 06-23-2022 TYPE AND SCREEN Negative Normal [facility] Comment on above: Performed By: #### T NS #### [facility] [address] [place] [address] Dr. Garland Kohli FREE T4on 06-07-2022 Free T4 [Mass/Vol] 0.76 ng/dL Normal 0.76-1.46 [facility] Comment on above: Performed By: #### C BC #### [facility] [address] [place] [address] Dr. Garland Kohli TSHon 06-07-2022 TSH 1.393 uIU/mL Normal 0.358-3.740 [facility] Comment on above: Performed By: #### T SH #### [facility] [address] [place] [address] Dr. Garland Kohli GROUP B STREP CULTUREon S. agalactiae Ag Ql (Unsp spec) Culture Observations: NEGATIVE FOR GROUP B STREPTOCOCCUS. Normal [facility] Comment on above: Performed By: #### C BC #### [facility] [address] [place] [address] Dr. Garland Kohli GTT 3 HR PREGon 04-16-2022 Glucose [Mass/Vol] 87 mg/dL Normal 74-106 [facility] Comment on above: Performed By: #### G TT3P #### [facility] [address] [place] [address] Dr. Garland Kohli Glucose [Mass/Vol] 148 mg/dL Normal [facility] Comment on above: Performed By: #### G TT3P #### [facility] [address] [place] [address] Dr. Garland Kohli Glucose [Mass/Vol] 128 mg/dL Normal [facility] Comment on above: Performed By: #### G TT3P #### [facility] [address] [place] [address] Dr. Garland Kohli Glucose [Mass/Vol] 105 mg/dL Normal [facility] Comment on above: Performed By: #### G TT3P #### [facility] [address] [place] [address] Dr. Garland Kohli CBC AUTO DIFFon 04-04-2022 BASO # 0.0 103/ul Normal 0.0-0.1 [facility] Comment on above: Performed By: #### G TT3P #### [facility] [address] [place] [address] Dr. Garland Kohli Basophils/100 WBC (Bld) 0.2 % Normal 0.2-2.0 [facility] Comment on above: Performed By: #### G TT3P #### [facility] [address] [place] [address] Dr. Garland Kohli EO # 0.0 103/ul Normal 0.0-0.7 [facility] Comment on above: Performed By: #### G TT3P #### [facility] [address] [address] [address] Garland Kohli Eosinophils/100 WBC (Bld) 0.4 % Critically low 0.9-7.0 [facility] Comment on above: Performed By: #### G TT3P #### [facility] [address] [place] [address] Dr. Garland Kohli Erythrocyte distribution width (RBC) [Ratio] 12.9 % Normal 11.0-15.0 [facility] Comment on above: Performed By: #### G TT3P #### [facility] [address] [place] [address] Dr. Garland Kohli Hematocrit (Bld) [Volume fraction] 32.5 % Critically low 36.0-48.0 [facility] Comment on above: Performed By: #### G TT3P #### [facility] [address] [place] [address] Dr. Garland Kohli Hemoglobin (Bld) [Mass/Vol] 11.2 g/dL Critically low 12.0-16.0 [facility] Comment on above: Performed By: #### G TT3P #### [facility] [address] [place] [address] Dr. Garland Kohli IG # 0.07 10e3/ul Critically high 0.00-0.03 [facility] Comment on above: Performed By: #### G TT3P #### [facility] [address] [place] [address] Dr. Garland Kohli IG % 0.8 % Critically high 0.0-0.5 [facility] Comment on above: Performed By: #### G TT3P #### [facility] [address] [place] [address] Dr. Garland Kohli LYMPH # 0.9 103/ul Critically low 1.2-3.8 [facility] Comment on above: Performed By: #### G TT3P #### [facility] [address] [place] [address] Dr. Garland Kohli Lymphocytes/100 WBC (Bld) 10.4 % Critically low 20.5-60.0 [facility] Comment on above: Performed By: #### G TT3P #### [facility] [address] [place] [address] Dr. Garland Kohli MANUAL DIFF REQ NO Normal [facility] Comment on above: Performed By: #### G TT3P #### [facility] [address] [place] [address] Dr. Garland Kohli MCH (RBC) [Entitic mass] 31.4 pg Normal 26.7-34.0 [facility] Comment on above: Performed By: #### G TT3P #### [facility] [address] [place] [address] Dr. Garland Kohli MCHC (RBC) [Mass/Vol] 34.5 g/dL Normal 29.9-35.2 [facility] Comment on above: Performed By: #### G TT3P #### [facility] [address] [place] [address] Dr. Garland Kohli MCV (RBC) [Entitic vol] 91.0 fL Normal 81.0-99.0 [facility] Comment on above: Performed By: #### G TT3P #### [facility] [address] [place] [address] Dr. Garland Kohli MONO # 1.1 103/ul Critically high 0.3-0.8 [facility] Comment on above: Performed By: #### G TT3P #### [facility] [address] [place] [address] Dr. Garland Kohli Monocytes/100 WBC (Bld) 12.5 % Critically high 1.7-12.0 [facility] Comment on above: Performed By: #### G TT3P #### [facility] [address] [place] [address] Dr. Garland Kohli NEUT # 6.3 103/ul Normal 1.4-6.5 [facility] Comment on above: Performed By: #### G TT3P #### [facility] [address] [place] [address] Dr. Garland Kohli Neutrophils/100 WBC (Bld) 75.7 % Critically high 43.0-75.0 [facility] Comment on above: Performed By: #### G TT3P #### [facility] [address] [address] [address] Garland Kohli Platelet mean volume (Bld) [Entitic vol] 10.5 fL Normal 9.5-13.5 [facility] Comment on above: Performed By: #### G TT3P #### [facility] [address] [address] [address] Garland Kohli PLT 181 103/ul Normal 150-450 [facility] Comment on above: Performed By: #### G TT3P #### [facility] [address] [address] [address] Garland Kohli RBC 3.57 106/ul Critically low 4.20-5.40 [facility] Comment on above: Performed By: #### G TT3P #### [facility] [address] [place] [address] Dr. Garland Kohli WBC 8.4 103/ul Normal 4.0-11.0 [facility] Comment on above: Performed By: #### G TT3P #### [facility] [address] [place] [address] Dr. Garland Kohli CTA CHEST WO W [...] DEANNA LINN Date: 2022-04-04 15:25 Normal [facility] PROF CHEM 8 (BAS METB)on Anion gap [Moles/Vol] 13.2 mmol/L Normal [facility] Comment on above: Performed By: #### G TT3P #### [facility] [address] [place] [address] Dr. Garland Kohli Calcium [Mass/Vol] 8.5 mg/dL Normal 8.5-10.1 [facility] Comment on above: Performed By: #### G TT3P #### [facility] [address] [place] [address] Dr. Garland Kohli Chloride [Moles/Vol] 103 mmol/L Normal 98-107 [facility] Comment on above: Performed By: #### G TT3P #### [facility] [address] [place] [address] Dr. Garland Kohli CO2 [Moles/Vol] 23.4 mmol/L Normal 21.0-32.0 [facility] Comment on above: Performed By: #### G TT3P #### [facility] [address] [place] [address] Dr. Garland Kohli Creatinine [Mass/Vol] 0.43 mg/dL Critically low 0.55-1.02 [facility] Comment on above: Performed By: #### G TT3P #### [facility] [address] [place] [address] Dr. Garland Kohli EGFR-AF BRAZILIAN >60 Normal >=60 [facility] Comment on above: Performed By: #### G TT3P #### [facility] [address] [place] [address] Dr. Garland Kohli EGFR-NON AF BRAZILIAN >60 Normal >=60 [facility] Comment on above: Performed By: #### G TT3P #### [facility] [address] [place] [address] Dr. Garland Kohli Glucose [Mass/Vol] 108 mg/dL Critically high 74-106 [facility] Comment on above: Performed By: #### G TT3P #### [facility] [address] [address] [address] Garland Kohli Potassium [Moles/Vol] 3.6 mmol/L Normal 3.5-5.1 [facility] Comment on above: Performed By: #### G TT3P #### [facility] [address] [address] [address] Garland Kohli Sodium [Moles/Vol] 136 mmol/L Normal 136-145 [facility] Comment on above: Performed By: #### G TT3P #### [facility] [address] [address] [address] Garland Kohli Urea nitrogen [Mass/Vol] 5.0 mg/dL Critically low 7.0-18.0 [facility] Comment on above: Performed By: #### G TT3P #### [facility] [address] [place] [address] Dr. Garland Kohli Urea nitrogen/Creatinine [Mass ratio] 11.6 mg/mg Normal [facility] Comment on above: Performed By: #### G TT3P #### [facility] [address] [place] [address] Dr. Garland Kohli TROPONIN, HIGH SENSITIVITYon 04-04-2022 HSTROP 9.3 pg/mL Normal 4.0-51.3 [facility] Comment on above: Result Comment: CUT- OFF POINTS HAVE BEEN ESTABLISHED BASED ON THE FOURTH UNIVERSAL DEFINITIONS OF MYOCARDIAL INFARCTION. THE UPPER REFERENCE LIMIT (URL) OF TROPONIN, DEFINED THE 99TH PERCENTILE OF cTnI DISTRIBUTION IN A REFERENCE POPULATION, HAS BEEN CONFIRMED THE DECISION THRESHOLD FOR MA DIAGNOSIS. Performed By: #### G TT3P #### [facility] [address] [place] [address] Dr. Garland Kohli CBC AUTO DIFFon 03-26-2022 BASO # 0.0 103/ul Normal 0.0-0.1 [facility] Comment on above: Performed By: #### G TT3P #### [facility] [address] [place] [address] Dr. Garland Kohli Basophils/100 WBC (Bld) 0.2 % Normal 0.2-2.0 [facility] Comment on above: Performed By: #### G TT3P #### [facility] [address] [address] [address] Garland Kohli EO # 0.1 103/ul Normal 0.0-0.7 [facility] Comment on above: Performed By: #### G TT3P #### [facility] [address] [place] [address] Dr. Garland Kohli Eosinophils/100 WBC (Bld) 1.0 % Normal 0.9-7.0 [facility] Comment on above: Performed By: #### G TT3P #### [facility] [address] [place] [address] Dr. Garland Kohli Erythrocyte distribution width (RBC) [Ratio] 12.8 % Normal 11.0-15.0 [facility] Comment on above: Performed By: #### G TT3P #### [facility] [address] [place] [address] Dr. Garland Kohli Hematocrit (Bld) [Volume fraction] 36.2 % Normal 36.0-48.0 [facility] Comment on above: Performed By: #### G TT3P #### [facility] [address] [place] [address] Dr. Garland Kohli Hemoglobin (Bld) [Mass/Vol] 12.2 g/dL Normal 12.0-16.0 [facility] Comment on above: Performed By: #### G TT3P #### [facility] [address] [place] [address] Dr. Garland Kohli IG # 0.08 10e3/ul Critically high 0.00-0.03 [facility] Comment on above: Performed By: #### G TT3P #### [facility] [address] [place] [address] Dr. Garland Kohli IG % 0.9 % Critically high 0.0-0.5 [facility] Comment on above: Performed By: #### G TT3P #### [facility] [address] [place] [address] Dr. Garland Kohli LYMPH # 1.7 103/ul Normal 1.2-3.8 [facility] Comment on above: Performed By: #### G TT3P #### [facility] [address] [place] [address] Dr. Garland Kohli Lymphocytes/100 WBC (Bld) 17.8 % Critically low 20.5-60.0 [facility] Comment on above: Performed By: #### G TT3P #### [facility] [address] [place] [address] Dr. Garland Kohli MANUAL DIFF REQ NO Normal [facility] Comment on above: Performed By: #### G TT3P #### [facility] [address] [place] [address] Dr. Garland Kohli MCH (RBC) [Entitic mass] 30.7 pg Normal 26.7-34.0 [facility] Comment on above: Performed By: #### G TT3P #### [facility] [address] [place] [address] Dr. Garland Kohli MCHC (RBC) [Mass/Vol] 33.7 g/dL Normal 29.9-35.2 [facility] Comment on above: Performed By: #### G TT3P #### [facility] [address] [place] [address] Dr. Garland Kohli MCV (RBC) [Entitic vol] 91.2 fL Normal 81.0-99.0 [facility] Comment on above: Performed By: #### G TT3P #### [facility] [address] [place] [address] Dr. Garland Kohli MONO # 0.6 103/ul Normal 0.3-0.8 [facility] Comment on above: Performed By: #### G TT3P #### [facility] [address] [place] [address] Dr. Garland Kohli Monocytes/100 WBC (Bld) 6.0 % Normal 1.7-12.0 [facility] Comment on above: Performed By: #### G TT3P #### [facility] [address] [place] [address] Dr. Garland Kohli NEUT # 6.9 103/ul Critically high 1.4-6.5 [facility] Comment on above: Performed By: #### G TT3P #### [facility] [address] [address] [address] Garland Kohli Neutrophils/100 WBC (Bld) 74.1 % Normal 43.0-75.0 [facility] Comment on above: Performed By: #### G TT3P #### [facility] [address] [address] [address] Garland Kohli Platelet mean volume (Bld) [Entitic vol] 10.2 fL Normal 9.5-13.5 [facility] Comment on above: Performed By: #### G TT3P #### [facility] [address] [address] [address] Garland Kohli PLT 217 103/ul Normal 150-450 [facility] Comment on above: Performed By: #### G TT3P #### [facility] [address] [address] [address] Garland Kohli RBC 3.97 106/ul Critically low 4.20-5.40 [facility] Comment on above: Performed By: #### G TT3P #### [facility] [address] [address] [address] Garland Kohli WBC 9.3 103/ul Normal 4.0-11.0 [facility] Comment on above: Performed By: #### G TT3P #### [facility] [address] [address] [address] Garland Kohli GLUCOSE - 1HRon 03-26-2022 Glucose [Mass/Vol] 155 mg/dL Critically high 74-106 [facility] Comment on above: Performed By: #### C BC #### [facility] [address] [address] [address] Garland Kohli US PREG ANATOMY SINGLEon [...] YAAKOV TERAN Date: 2022-02-09 19:30 Normal [facility] AFP MATERNAL FOR SPINA BIFID Aon 01-29-2022 AFP MoM 0.76 Normal [facility] Comment on above: Performed By: #### G TT3P #### [facility] [address] [address] [address] Garland Kohli AFP Value 35.4 ng/mL Normal [facility] Comment on above: Performed By: #### G TT3P #### [facility] [address] [address] [address] Garland Kohli AFP, Serum for Spina Bifida Report Normal [facility] Comment on above: Performed By: #### G TT3P #### [facility] [address] [address] [address] Garland Kohli Comment Comment Normal [facility] Comment on above: Result Comment: Stanley Almodovar, Ph.D., [facility] Director . References: Available Upon Request. . Multiples Of Median Cutoffs For AFP Elevations Mark 2.5 Black 2.8 IDD 2.0 Twins 4.5 Abbreviation Definitions IDD - Insulin Dep Diabetes OSBR - Open Spina Bifida Risk . For further inquiries contact [employer] [facility] at [phone]. . This test was developed and its performance characteristics determined by [employer]. It has not been cleared or approved by the Food and Drug Administration. Performed By: #### G TT3P #### [facility] [address] [place] [address] Dr. Garland Izquierdo Age Collection Date 18.1 weeks Normal [facility] Comment on above: Performed By: #### G TT3P #### [facility] [address] [place] [address] Dr. Garland Kohli Gestat, Age Based on Ultrasound Normal [facility] Comment on above: Result Comment: 09:4 on 11/26/2021 Recalculations are not recommended when gestational dating by LMP and ultrasound are within 10 days. Performed By: #### G TT3P #### [facility] [address] [place] [address] Dr. Garland Kohli Insulin Dep Diabetes No Normal [facility] Comment on above: Performed By: #### G TT3P #### [facility] [address] [place] [address] Dr. Garland Kohli Interpretation Comment Normal [facility] Comment on above: Result Comment: [...] Customer Services to discuss available options. The [employer] recommends amniocentesis be offered to women age 35 and older. Performed By: #### G TT3P #### [facility] [address] [place] [address] Dr. Garland Kohli [age] Normal [facility] Comment on above: Performed By: #### G TT3P #### [facility] [address] [place] [address] Dr. Garland Kohli Multiple Gestation No Normal [facility] Comment on above: Performed By: #### G TT3P #### [facility] [address] [address] [address] Garland Kohli [place] [address] [facility] Comment on above: Performed By: #### G TT3P #### [facility] [address] [place] [address] Dr. Garland Kohli PDF . [facility] Comment on above: Performed By: #### G TT3P #### [facility] [address] [address] [address] Garland Kohli Race [facility] Comment on above: Performed By: #### G TT3P #### [facility] [address] [place] [address] Dr. Garland Kohli Test Results: Negative [facility] Comment on above: Performed By: #### G TT3P #### [facility] [address] [place] [address] Dr. Garland Kohli PAP ACOG PANEL 2: 19 to 27on 01-23-2022 . . [facility] Comment on above: Performed By: #### [id number] #### [facility] [address] [place] [address] Dr. Garland Kohli Age Gdln ACOG Testing - [facility] Comment on above: Performed By: #### [id number] #### [facility] [address] [place] [address] Dr. Garland Kohli DIAGNOSIS: Comment [facility] Comment on above: Result Comment: NEGA TIVE FOR INTRAEPITHELIAL LESION OR MALIGNANCY. Performed By: #### [id number] #### [facility] [address] [place] [address] Dr. Garland Kohli Methodology: Comment [facility] Comment on above: Result Comment: This liquid based ThinPrep(R) pap test was screened with the use of an image guided system. Performed By: #### [id number] #### [facility] [address] [place] [address] Dr. Garland Kohli Note: Comment Normal [facility] Comment on above: Result Comment: The Pap smear is a screening test designed to aid in the detection of premalignant and malignant conditions of the uterine cervix. It is not a diagnostic procedure and should not be used as the sole means of detecting cervical cancer. Both false-positive and false-negative reports do occur. . Performed By: #### [id number] #### [facility] [address] [place] [address] Dr. Garland Kohli Performed by: Comment Normal [facility] Comment on above: Result Comment: Kelly Arreguin, Machine Assistant (ASCP) Performed By: #### [id number] #### [facility] [address] [place] [address] Dr. Garland Kohli Reflex Criteria: Comment Normal [facility] Comment on above: Result Comment: The HPV DNA reflex criteria were not met with this specimen result therefore, no HPV testing was performed. . Performed By: #### [id number] #### [facility] [address] [place] [address] Dr. Garland Kohli Specimen adequacy: Comment Normal [facility] Comment on above: Result Comment: Sati sfactory for evaluation. No endocervical component is identified. Performed By: #### [id number] #### [facility] [address] [place] [address] Dr. Garland Kohli CHLAMYDIA/GONOCOCCUS JUAN (SW AB/URINE/PAPon 01-20-2022 Chlamydia trachomatis, JUAN Negative Normal Negative [facility] Comment on above: Performed By: #### C BC #### [facility] [address] [place] [address] Dr. Garland Kohli Neisseria gonorrhoeae, JUAN Negative Normal Negative [facility] Comment on above: Performed By: #### C BC #### [facility] [address] [place] [address] Dr. Garland Kohli TSHon 01-04-2022 TSH 1.707 uIU/mL Normal 0.358-3.740 [facility] Comment on above: Performed By: #### G TT3P #### [facility] [address] [place] [address] Dr. Garland Kohli HEPATITIS C VIRUS AB W/ REFL EX QUANTon 12-17-2021 HCV AB <0.1 Normal 0.0-0.9 [facility] Comment on above: Performed By: #### G TT3P #### [facility] [address] [place] [address] Dr. Garland Kohli Interpretation: Comment Normal [facility] Comment on above: Result Comment: Nega tive Not infected with HCV, unless recent infection is suspected or other evidence exists to indicate HCV infection. Performed By: #### G TT3P #### [facility] [address] [place] [address] Dr. Garland Kohli CULTURE URINEon 12-15-2021 CULTURE URINE Culture Observations : GREATER THAN TWO ORGANISMS PRESENT. PLEASE RESUBMIT CLEAN CATCH MID-STREAM URINE IF CLINICALLY INDICATED. Normal [facility] Comment on above: Performed By: #### U RCX #### [facility] [address] [place] [address] Dr. Garland Kohli HEP B SURFACE ANTIGEN SCREEN on 12-15-2021 HBsAg Screen Negative Normal Negative [facility] Comment on above: Performed By: #### H BSANS #### [facility] [address] [place] [address] Dr. Garland Kohli HIV 1 AND 2 WITH REFLEXon HIV Screen 4th Generation wRfx Non-Reactive Normal Non Reactive [facility] Comment on above: Result Comment: HIV Negative HIV-1/HIV-2 antibodies and HIV-1 p24 antigen were NOT detected. There is no laboratory evidence of HIV infection. Performed By: #### H IV12 #### [facility] [address] [place] [address] Dr. Garland Kohli RPR QUANTon 12-15-2021 Rapid Plasma Reagin, Quant Non-Reactive Normal NonRea<1:1 [facility] Comment on above: Result Comment: Plea se Note: This test does not meet current guidelines for screening and diagnosis of syphilis. This test is intended for following treatment response in patients being treated for syphilis infection. To screen for syphilis infection, a reflex cascade that includes both RPR and a treponema-specific assay should be utilized, such as Treponema pallidum (Syphilis) Screening [place] (546259) or Rapid Plasma Reagin (RPR) Test With Reflex to Quantitative RPR and Confirmatory Treponema pallidum Antibodies (252995). Performed By: #### G TT3P #### [facility] [address] [place] [address] Dr. Garland Kohli RUBELLA AB IGGon 12-15-2021 Rubella Antibodies, IgG 4.72 index Normal Immune >0.99 [facility] Comment on above: Result Comment: Non- immune <0.90 Equivocal 0.90 - 0.99 Immune >0.99 Performed By: #### G TT3P #### [facility] [address] [place] [address] Dr. Garland Kohli CBC AUTO DIFFon 12-14-2021 BASO # 0.0 103/ul Normal 0.0-0.1 [facility] Comment on above: Performed By: #### C BC #### [facility] [address] [place] [address] Dr. Garland Kohli Basophils/100 WBC (Bld) 0.3 % Normal 0.2-2.0 [facility] Comment on above: Performed By: #### C BC #### [facility] [address] [place] [address] Dr. Garland Kohli EO # 0.1 103/ul Normal 0.0-0.7 [facility] Comment on above: Performed By: #### C BC #### [facility] [address] [place] [address] Dr. Garland Kohli Eosinophils/100 WBC (Bld) 0.8 % Critically low 0.9-7.0 [facility] Comment on above: Performed By: #### C BC #### [facility] [address] [place] [address] Dr. Garland Kohli Erythrocyte distribution width (RBC) [Ratio] 12.6 % Normal 11.0-15.0 [facility] Comment on above: Performed By: #### C BC #### [facility] [address] [place] [address] Dr. Garland Kohli Hematocrit (Bld) [Volume fraction] 34.3 % Critically low 36.0-48.0 [facility] Comment on above: Performed By: #### C BC #### [facility] [address] [place] [address] Dr. Garland Kohli Hemoglobin (Bld) [Mass/Vol] 11.7 g/dL Critically low 12.0-16.0 [facility] Comment on above: Performed By: #### C BC #### [facility] [address] [place] [address] Dr. Garland Kohli IG # 0.03 10e3/ul Normal 0.00-0.03 [facility] Comment on above: Performed By: #### C BC #### [facility] [address] [place] [address] Dr. Garland Kohli IG % 0.4 % Normal 0.0-0.5 [facility] Comment on above: Performed By: #### C BC #### [facility] [address] [place] [address] Dr. Garland Kohli LYMPH # 1.5 103/ul Normal 1.2-3.8 [facility] Comment on above: Performed By: #### C BC #### [facility] [address] [place] [address] Dr. Garland Kohli Lymphocytes/100 WBC (Bld) 21.1 % Normal 20.5-60.0 [facility] Comment on above: Performed By: #### C BC #### [facility] [address] [place] [address] Dr. Garland Kohli MANUAL DIFF REQ NO Normal [facility] Comment on above: Performed By: #### C BC #### [facility] [address] [place] [address] Dr. Garland Kohli MCH (RBC) [Entitic mass] 30.5 pg Normal 26.7-34.0 [facility] Comment on above: Performed By: #### C BC #### [facility] [address] [place] [address] Dr. Garland Kohli MCHC (RBC) [Mass/Vol] 34.1 g/dL Normal 29.9-35.2 [facility] Comment on above: Performed By: #### C BC #### [facility] [address] [place] [address] Dr. Garland Kohli MCV (RBC) [Entitic vol] 89.6 fL Normal 81.0-99.0 [facility] Comment on above: Performed By: #### C BC #### [facility] [address] [place] [address] Dr. Garland Kohli MONO # 0.5 103/ul Normal 0.3-0.8 [facility] Comment on above: Performed By: #### C BC #### [facility] [address] [place] [address] Dr. Garland Kohli Monocytes/100 WBC (Bld) 7.1 % Normal 1.7-12.0 [facility] Comment on above: Performed By: #### C BC #### [facility] [address] [place] [address] Dr. Garland Kohli NEUT # 5.0 103/ul Normal 1.4-6.5 [facility] Comment on above: Performed By: #### C BC #### [facility] [address] [place] [address] Dr. Garland Kohli Neutrophils/100 WBC (Bld) 70.3 % Normal 43.0-75.0 [facility] Comment on above: Performed By: #### C BC #### [facility] [address] [place] [address] Dr. Garland Kohli Platelet mean volume (Bld) [Entitic vol] 10.1 fL Normal 9.5-13.5 [facility] Comment on above: Performed By: #### C BC #### [facility] [address] [place] [address] Dr. Garland Kohli PLT 234 103/ul Normal 150-450 [facility] Comment on above: Performed By: #### C BC #### [facility] [address] [place] [address] Dr. Garland Kohli RBC 3.83 106/ul Critically low 4.20-5.[address] [facility] Comment on above: Performed By: #### C BC #### [facility] [address] [place] [address] Dr. Garland Kohli WBC 7.1 103/ul Normal 4.0-11.0 [facility] Comment on above: Performed By: #### C BC #### [facility] [address] [place] [address] Dr. Garland Kohli GLYCOHEMOGLOBIN A1Con 2021 ADA RECOMMENDATION SEE BELOW Normal [facility] Comment on above: Result Comment: ADA RECOMMENDED LIMIT 4.0 - 6.0 ADA THERAPEUTIC TARGET < 7.0 ACTION SUGGESTED > 7.0 Performed By: #### A 1C #### [facility] [address] [place] [address] Dr. Garland Kohli Glucose [Mass/Vol] 103 mg/dL Normal [facility] Comment on above: Performed By: #### A 1C #### [facility] [address] [place] [address] Dr. Garland Kohli HbA1c (Bld) [Mass fraction] 5.2 % Normal 4.5-6.2 [facility] Comment on above: Performed By: #### A 1C #### [facility] [address] [place] [address] Dr. Garland Kohli MARTÍNEZ BOX TEST PT SEND OUTo n 12-14-2021 SENT TO REF LAB 12/14/[address] [facility] Comment on above: Performed By: #### G TT3P #### [facility] [address] [place] [address] Dr. Garland Kohli TYPE AND SCREENon 12-14-2021 TYPE AND SCREEN Negative Normal [facility] Comment on above: Performed By: #### C BC #### [facility] [address] [place] [address] Dr. 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 Steri-Strips applied throughout and then bulky gauze dressing as well as surgical bra was applied. The patient was awoken, extubated, and transported to the recovery room in stable condition. Sponge, needle, and instrument counts were reported correct x2 at the end of the case. MODE Gilliland: 11/24/2018 12:08:16 [id number] Doc#: [id number] CC: Carlos Alberto Coleman Normal [facility] Surgical Pathologyon 019 Surgical Pathology (NOTE) [id number] [facility] [address] [place] [address] SURGICAL PATHOLOGY REPORT Patient Name: CECELIA JOHNSON MR#: [id number] Specimen #[id number] Final Diagnosis SPECIMEN A : BREAST AND [...] The entire specimen weighs 453 grams. Multiple access services representative sections are submitted in five cassettes [...] also sampled in multiple different areas and access services representative sections are submitted in five cassettes for microscopic examination. Microscopic Description Specimen A : Five IRCHARD glass slides are received. Microscopic examination is performed. Specimen B : Five RICHARD glass slides are received. Microscopic examination is performed. Normal [facility] Comment on above: Performed By: #### P PPES #### [facility] [address] [place] [address] Chip Unloader: Victor Manuel Hunter DO CNOVSPon 11-18-2018 OVS Visit (SP) Office (KATHARINE) TONYCECELIA ([id number]) 1995 F Date Time Provider Department 11/18/18 1:00 PM JAZ MOULTON) KATHARINE During your visit today, we recorded the following information about you: Temperature Pulse Respiration Blood pressure 97.9 degrees 82/minute 18/minute 122/78 Weight Height Last Period 82.7 kg 1.6 m 10/15/18 Jaz Moulton MD 11/18/2018 3:08 PM Signed PATIENT NAME: Cecelia RODRIGUEZ NO.: [id number] ATTENDING PHYSICIAN: Jaz Moulton MD DATE OF [...] file Gets together: Not on file Attends sabianism service: Not on file Active member of [...] allowing me to participate in Miss Cecelia kumar, if there are any questions or concerns please do not hesitate to contact me at the number below. Jaz Moulton M.D. Hematology/Medical Oncology [facility] [phone] CC: Carlos Alberto Coleman MD - (Inactive), In Basket (Inactive) - User (Inactive) [address] [facility] [facility] [phone] () Mode Renee MD Referring Provider: [...] by JAZ MOULTON MD on 11/18/18 Normal [facility] PROGRESSon 11-18-2018 PROGRESS HNO ID: [id number] Author: Jaz Hill) [place] Service: ? Author Type: Physician Type: Progress Notes Filed: 11/18/2018 3:08 PM Note Text: PATIENT NAME: Cecelia Johnson [facility] NO.: [id number] ATTENDING PHYSICIAN: Jaz Moulton MD DATE OF [...] file Gets together: Not on file Attends sabianism service: Not on file Active member of [...] number below. Jaz Moulton M.D. Hematology/Medical Oncology [facility] [phone] CC: Carlos Alberto Coleman MD - (Inactive), In Basket (Inactive) - User (Inactive) [address] [facility] [phone] (Ph) Mode Renee MD Normal [facility] Basic Metabolic Profon 11-10 (cont.) Normal [facility] Comment on above: Result Comment: Aver age GFR for 20-29 years old: 116 mL/min/1.73sq m Chronic Kidney Disease: <60 mL/min/1.73sq m Kidney failure: <15 mL/min/1.73sq m eGFR calculated using average adult body mass. Additional eGFR calculator available at: http://www.Instabank.com/multiple_crcl_2012.htm Performed By: #### C DP, BMP #### [facility] [address] [facility] [place] [address] Chip Unloader: Victor Manuel Hunter DO Anion gap [Moles/Vol] 11 mmol/L Normal 9-17 [facility] Comment on above: Performed By: #### C DP, BMP #### [facility] [place] [address] Chip Unloader: Victor Manuel Hunter DO Calcium [Mass/Vol] 9.7 mg/dL Normal 8.6-10.[address] [facility] Comment on above: Performed By: #### C DP, BMP #### [facility] [address] [place] [phone] Chip Unloader: Victor Manuel Hunter DO Chloride [Moles/Vol] 102 mmol/L Normal 98-107 [facility] Comment on above: Performed By: #### C DP, BMP #### [facility] [place] [address] Chip Unloader: Victor Manuel Hunter DO CO2 [Moles/Vol] 26 mmol/L Normal 20-[address] [facility] Comment on above: Performed By: #### C DP, BMP #### [facility] [place] [address] Chip Unloader: Victor Manuel Hunter DO Creatinine [Mass/Vol] 0.49 mg/dL Low 0.50-0.90 [facility] Comment on above: Performed By: #### C DP, BMP #### [facility] [place] [address] Chip Unloader: Victor Manuel Hunter DO GFR, Amer >60 Normal >60 [facility] Comment on above: Performed By: #### C FARAZ, BMP #### [facility] [address] [place] [address] Chip Unloader: Victor Manuel Hunter DO GFR,non Amer >60 Normal >60 [facility] Comment on above: Performed By: #### C DP, BMP #### [facility] [address] [place] [address] Chip Unloader: Victor Manuel Hunter DO Glucose [Mass/Vol] 88 mg/dL Normal 70-[address] [facility] Comment on above: Performed By: #### C DP, BMP #### [facility] [place] [address] Chip Unloader: Victor Manuel Hunter DO Potassium [Moles/Vol] 4.3 mmol/L Normal 3.7-5.3 [facility] Comment on above: Performed By: #### C DP, BMP #### [facility] [place] [address] Chip Unloader: Victor Manuel Hunter DO Sodium [Moles/Vol] 139 mmol/L Normal 135-[address] [facility] Comment on above: Performed By: #### C DP, BMP #### [facility] [address] [facility] [place] [address] Chip Unloader: Victor Manuel Hunter DO Urea nitrogen [Mass/Vol] 8 mg/dL Normal 6-[address] [facility] Comment on above: Performed By: #### C DP, BMP #### [facility] [address] [place] [address] Chip Unloader: Victor Manuel Hunter DO BUN/CRE Ratio NOT REPORTED Normal 9-[address] [facility] Comment on above: Performed By: #### C DP, BMP #### [facility] [address] [place] [address] Chip Unloader: Victor Manuel Hunter DO Staging: NOT REPORTED Normal [facility] Comment on above: Performed By: #### C FARAZ, BMP #### [facility] [address] [place] [phone] Chip Unloader: Victor Manuel Hunter DO CBC with Diffon 11-10-2018 Abs. Basophil 0.00 k/uL Normal 0.0-0.[address] [facility] Comment on above: Performed By: #### C FARAZ, BMP #### [facility] [address] [place] [phone] Chip Unloader: Victor Manuel Hunter DO Abs.Neutrophil (Seg) 3.00 k/uL Normal 1.3-9.1 [facility] Comment on above: Performed By: #### C FARAZ, BMP #### [facility] [address] [place] [phone] Chip Unloader: Victor Manuel Hunter DO Basophils/100 WBC (Bld) 0 % Normal 0-[address] [facility] Comment on above: Performed By: #### C FARAZ, BMP #### [facility] [address] [place] [id number] Chip Unloader: Victor Manuel Hunter DO Eosinophils (Bld) [#/Vol] 0.10 10*3/uL Normal 0.0-0.[address] [facility] Comment on above: Performed By: #### C DP, BMP #### [facility] [address] [place] [phone] Chip Unloader: Victor Manuel Hunter DO Eosinophils/100 WBC (Bld) 1 % Normal 0-[address] [facility] Comment on above: Performed By: #### C DP, BMP #### [facility] [address] [place] [phone] Chip Unloader: Victor Manuel Hunter DO Erythrocyte distribution width (RBC) [Ratio] 12.7 % Normal 11.5-14.[address] [facility] Comment on above: Performed By: #### C FARAZ, BMP #### [facility] [address] [place] [phone] Chip Unloader: Victor Manuel Hunter DO Hematocrit (Bld) [Volume fraction] 42.3 % Normal 36-[address] [facility] Comment on above: Performed By: #### C FARAZ, BMP #### [facility] [address] [place] [phone] Chip Unloader: Victor Manuel Hunter DO Hemoglobin (Bld) [Mass/Vol] 14.3 g/dL Normal 12.0-16.[address] [facility] Comment on above: Performed By: #### C FARAZ, BMP #### [facility] [address] [place] [phone] Chip Unloader: Victor Manuel Hunter DO Lymphocytes (Bld) [#/Vol] 1.70 10*3/uL Normal 1.0-4.[address] [facility] Comment on above: Performed By: #### C FARAZ, BMP #### [facility] [address] [place] [phone] Chip Unloader: Victor Manuel Hunter DO Lymphocytes/100 WBC (Bld) 32 % Normal 24-[address] [facility] Comment on above: Performed By: #### C FARAZ, BMP #### [facility] [address] [place] [id number] Chip Unloader: Victor Manuel Hunter DO MCH (RBC) [Entitic mass] 30.0 pg Normal 26-[address] [facility] Comment on above: Performed By: #### C DP, BMP #### [facility] [address] [place] [phone] Chip Unloader: Victor Manuel Hunter DO MCHC (RBC) [Mass/Vol] 33.7 g/dL Normal 31-37 [facility] Comment on above: Performed By: #### C FARAZ, BMP #### [facility] [place] [address] Chip Unloader: Victor Manuel Hunter DO MCV (RBC) [Entitic vol] 89.0 fL Normal 80-[address] [facility] Comment on above: Performed By: #### C DP, BMP #### [facility] [address] [place] [phone] Chip Unloader: Victor Manuel Hunter DO Monocytes (Bld) [#/Vol] 0.60 10*3/uL Normal 0.1-1.[address] [facility] Comment on above: Performed By: #### C FARAZ, BMP #### [facility] [address] [place] [phone] Chip Unloader: Victor Manuel Hunter DO Monocytes/100 WBC (Bld) 11 % High 1-[address] [facility] Comment on above: Performed By: #### C FARAZ, BMP #### [facility] [address] [place] [phone] Chip Unloader: Victor Manuel Hunter DO Neutrophil (Seg) 56 % Normal 36-66 [facility] Comment on above: Performed By: #### C FARAZ, BMP #### [facility] [address] [place] [address] Chip Unloader: Victor Manuel Hunter DO Platelet mean volume (Bld) [Entitic vol] 9.4 fL Normal 6.0-12.[address] [facility] Comment on above: Performed By: #### C FARAZ, BMP #### [facility] [address] [place] [address]33 Chip Unloader: Victor Manuel Hunter DO Platelets (Bld) [#/Vol] 252 10*3/uL Normal 150-[address] [facility] Comment on above: Performed By: #### C DP, BMP #### [facility] [place] [address] Chip Unloader: Victor Manuel Hunter DO RBC (Bld) [#/Vol] 4.75 10*6/uL Normal 4.0-5.[address] [facility] Comment on above: Performed By: #### C DP, BMP #### [facility] [address] [place] [address] 14002 Chip Unloader: Victor Manuel Hunter DO WBC (Bld) [#/Vol] 5.3 10*3/uL Normal 3.5-11.[address] [facility] Comment on above: Performed By: #### C DP, BMP #### [facility] [address] [place] [address] 09822 Chip Unloader: Victor Manuel Hunter DO Abs.Imm.Granulocyte NOT REPORTED Normal 0.00-0.30 [facility] Comment on above: Performed By: #### C DP, BMP #### [facility] [address] [place] [address]125 Chip Unloader: Victor Manuel Hunter DO Auto Diff Performed NOT REPORTED Normal [facility] Comment on above: Performed By: #### C DP, BMP #### [facility] [address] [place] [address]1413 Chip Unloader: Victor Manuel Hunter DO Immature granulocytes (Bld) [#/Vol] NOT REPORTED Normal [address] [facility] Comment on above: Performed By: #### C DP, BMP #### [facility] [address] [place] [address]115 Chip Unloader: Victor Manuel Hunter DO NRBC Automated NOT REPORTED Normal [facility] Comment on above: Performed By: #### C DP, BMP #### [facility] [address] [facility] [place] [address] Chip Unloader: Victor Manuel Hunter DO Platelets (Bld) [#/Vol] NOT REPORTED Normal [facility] Comment on above: Performed By: #### C DP, BMP #### [facility] [address] [facility] [place] [address] Chip Unloader: Victor Manuel Hunter DO RBC morphology finding Nom (Bld) NOT REPORTED Normal [facility] Comment on above: Performed By: #### C DP, BMP #### [facility] [address] [facility] [place] [address] Chip Unloader: Victor Manuel Hunter DO WBC Morphology NOT REPORTED Normal [facility] Comment on above: Performed By: #### C DP, BMP #### [facility] [address] [facility] [place] [address] Chip Unloader: Victor Manuel Hunter DO Vital Signs Date Time Vital Sign Value Performing Clinician Facility 02-10-2024 14:44-0400 Body mass index (BMI) [Ratio] 29.39 kg/m2 [employer] Work Phone: [facility] 02-10-2024 14:44-0400 Body weight 77.68 kg Language Learning Class Work Phone: [facility] 02-10-2024 14:44-0400 Diastolic blood pressure 68 mm[Hg] Herber Nnamdi [employer] Work Phone: [facility] 02-10-2024 14:44-0400 Systolic blood pressure 116 mm[Hg] [employer] Work Phone: [facility] 01-29-2022 02:06-0400 Body weight 67.[address] ZEN BREWER . [facility] Comment on above: Performed By: #### [id number] #### [facility] [address] [place] [address] Dr. Garland Kohli Encounters Encounter Date Encounter Type Care Provider Facility Start: 03-09-2024 End: 03-09-2024 ambulatory TORI PEPE Not Available Start: 03-09-2024 End: 03-09-2024 Bamboo flowsheet Tori Pepe PA Work Phone: [facility] Start: 03-09-2024 End: 03-09-2024 Bamboo flowsheet Tori Pepe PA Work Phone: [facility] Start: 02-10-2024 End: 02-10-2024 ambulatory HERBER NNAMDI Not Available Start: 02-10-2024 End: 02-10-2024 Bamboo flowsheet Herber Nnamdi DO Work Phone: [facility] Start: 02-10-2024 End: 02-17-2024 Bamboo flowsheet Herber Nnamdi DO Work Phone: [facility] Start: 02-10-2024 End: 02-17-2024 Clinisync Result Encounter Generic External Data Provider [facility] External Department Unsolicited Start: 02-10-2024 End: 02-10-2024 Patient encounter procedure Herber Nnamdi DO Work Phone: [facility] Start: 02-10-2024 End: 02-10-2024 Periodic preventive med est patient 18-39 yrs Herber Nnamdi DO Work Phone: [facility] Comment on above: Well woman [...] WARCHOL Not Available Start: 07-13-2023 End: 07-13-2023 Patient encounter procedure MD Carlos Alberto Coleman Work Phone: [facility] Start: 07-13-2023 End: 07-13-2023 ambulatory MD Carlos Alberto Coleman Work Phone: [facility] Work Phone: Start: 07-13-2023 End: 07-13-2023 ambulatory SOFIE Ruth GR Not Available Start: 06-02-2023 Refill Tori Michelle [employer] Work Phone: [facility] Comment on above: Attention deficit hy peractivity disorder (ADHD), combined type ([facility]) Start: 04-16-2023 End: 04-16-2023 ambulatory TORI MICHELLE Not Available Start: 07-04-2022 End: 07-14-2022 ambulatory [...] abnormal findings DR ZEN BREWER . [facility] Start: 01-17-2022 End: 01-17-[address] ZEN BREWER . Facility:[facility] Start: 01-17-2022 End: 01-17-2022 Encounter for gynecological examination (general) (routine) without abnormal findings DR ZEN BREWER . Facility: Start: 01-04-2022 End: 01-05-2022 ambulatory ÁNGEL RANDYBROOKE Facility:[facility] Start: 12-14-2021 End: 12-15-[address] ZEN BREWER . Facility: Start: 11-26-2021 End: 11-27-2021 ambulatory ÁNGEL SINHA Facility:[facility] Start: 11-24-2018 End: 11-24-2018 Patient encounter procedure [facility] Start: 11-10-2018 End: 11-15-2018 [facility] Procedures Date Procedure Procedure Detail Performing Clinician Start: 02-10-2024 Urnls dip stick/tabl et rgnt non-auto w/o micrscp Language Learning Class Work Phone: Start: 02-10-2024 IGP,APTIMA HPV,AGE GDLN [employer] DO Work Phone: Start: 02-10-2024 Microscopic observat ion [Identifier] in Cervix by Cyto stain Tori SHIRLEY Work Phone: Start: 07-13-2023 Respiratory Panel (PCR) [...] PATIENT NORMA RENEE Start: 11-24-2018 BEDREST MODE HURT TA Start: 11-24-2018 Continuous pulse oximetry MODE THELMA Start: 11-24-2018 ENCOURAGE DEEP BREAT MARIANNA AND COUGHING MODE RENEE Start: 11-24-2018 NURSING COMMUNICATION M TYRA RENEE Start: 11-24-2018 Urine test visual color cmprsn meths MODE RENEE Start: 11-24-2018 INITIATE OXYGEN THER APY PROTOCOL MODE RENEE Start: 11-24-2018 NOTIFY PHYSICIAN (SPECIFY) MODE RENEE Start: 11-24-2018 VITAL SIGNS MODE ESPINO Start: 11-10-2018 Ecg routine ecg w/le ast 12 lds w/i&r MODE RENEE Start: 11-10-2018 EKG REPORT MODE HURT TA Start: 11-10-2018 Basic metabolic pane l calcium total MODE RENEE Start: 11-10-2018 Blood count complete auto&auto difrntl wbc MODE RENEE Plan of Treatment Date Care Activity Detail Author Start: 02-09-2029 Screening for malign ant neoplasm of cervix [facility] Start: 04-21-2024 End: 04-21-2024 Patient encounter procedure 04/21/2024 8:30 AM EST Routine [facility] [address] [facility] [place] [id number] Herber Coto DO [address] [facility] [place] [address] [facility] Start: 04-06-2024 End: 04-06-2024 Patient encounter procedure 04/06/2024 3:20 PM EST Routine [facility] [address] [facility] [place] [address] Tori Pepe PA [address] [facility] [place] [address] [facility] Start: 03-09-2024 End: 03-09-2024 Patient encounter procedure 03/09/2024 3:50 PM EST Routine [facility] [address] [place] [id number] Tori Pepe, PA [address] [place] [address] [facility] Start: 02-10-2024 End: 02-09-2025 Alpha fetoprotein, maternal Alpha fetoprotein, maternal Lab Routine Second trimester 19 weeks gestation of Expected: 02/10/2024 (Approximate), Expires: 02/09/2025 [facility] Comment on above: Expected: 02/10/2024 (Approximate), Expires: 02/09/2025 Start: 02-10-2024 End: 02-09-2025 US for US OB ANATOMY SINGLE W US OB CERVICAL LENGTH Imaging Routine Screening, , for anatomic survey Expected: 02/10/2024 (Approximate), Expires: 02/09/2025 [facility] Comment on above: Expected: 02/10/2024 (Approximate), Expires: 02/09/2025 Start: 12-27-2023 Influenza vaccination Influenza Vacc ine (#1) [facility] Start: 10-25-2023 Influenza vaccination Influenza Vacc ine (#1) [facility] Comment on above: Postponed from 12/26 (Patient Refused) Start: 10-25-2023 Screening for malign ant neoplasm of cervix [facility] Start: 07-17-2023 End: 07-17-2023 Patient encounter procedure 07/17/2023 8:00 AM EDT Office Visit [facility] [address] [place] [address] Tori Martinez NP [address] [place] [address] [facility] Start: 2014 Screening for malign ant neoplasm of cervix Pap Smear [facility] CHLAMYDIA TRACHOMATI S (GENITO/STI) CHLAMYDIA TRACHOMATIS (GENITO/STI) Lab Routine Screen for STD (sexually transmitted disease) Vaginal discharge Ordered: 02/10/2024 [facility] Comment on above: Ordered: 02/10/2024 Cytology Cervical or vaginal smear or scraping study Pap Smear Pathology and Cytology Routine Well woman exam with routine gynecological exam Ordered: 02/10/2024 [facility] Comment on above: Ordered: 02/10/2024 Human papilloma viru s DNA [Presence] in Unspecified specimen by Probe with amplification HPV DNA probe, amplified Microbiology Routine Well woman exam with routine gynecological exam Ordered: 02/10/2024 [facility] Comment on above: Ordered: 02/10/2024 Neisseria gonorrhoea e DNA [Presence] in Unspecified specimen by JUAN with probe detection Neisseria gonorrhea DNA probe, direct Lab Routine Screen for STD (sexually transmitted disease) Vaginal discharge Ordered: 02/10/2024 [facility] Comment on above: Ordered: 02/10/2024 SURESWAB(R) ADVANCED VAGINITIS PLUS, TMA SURESWAB(R) ADVANCED VAGINITIS PLUS, TMA Pathology and Cytology Routine Screen for STD (sexually transmitted disease) Vaginal discharge Ordered: 02/10/2024 [facility] Work Phone: Comment on above: Ordered: 02/10/2024 Immunizations Immunization Date Immunization Notes Care Provider Byron carlson 05-05-2015 tetanus toxoid, redu catherine diphtheria toxoid, and acellular pertussis vaccine, adsorbed Tori Warchol [employer] Work Phone: [facility] 02-14-2009 influenza, seasonal, injectable Tori Warchol [employer] Work Phone: [facility] 02-14-2009 influenza virus vacc ine, unspecified formulation Tori Warchol [employer] Work Phone: [facility] 12-12-2005 hepatitis A vaccine, unspecified formulation Tori Warchol [employer] Work Phone: [facility] 12-12-2005 tetanus toxoid, redu catherine diphtheria toxoid, and acellular pertussis vaccine, adsorbed Tori Warchol [employer] Work Phone: [facility] 11-19-1998 diphtheria, tetanus toxoids and acellular pertussis vaccine, unspecified formulation Tori Warchol [employer] Work Phone: [facility] 11-19-1998 measles, mumps and rubella virus vaccine Tori Warchol [employer] Work Phone: [facility] 11-19-1998 trivalent poliovirus vaccine, live, oral Tori Warchol [employer] Work Phone: [facility] 09-14-1995 diphtheria, tetanus toxoids and acellular pertussis vaccine, unspecified formulation Tori Warchol [employer] Work Phone: [facility] 09-14-1995 haemophilus influenz ae type b vaccine, conjugate unspecified formulation Tori Warchol [employer] Work Phone: [facility] 11-20-1994 DTP-Haemophilus influenzae type b conjugate vaccine Tori Warchol [employer] Work Phone: [facility] 11-20-1994 hepatitis B vaccine, pediatric or pediatric/adolescent dosage Tori Warchol [employer] Work Phone: [facility] 11-20-1994 measles, mumps and rubella virus vaccine Tori Warchol [employer] Work Phone: [facility] 11-20-1994 trivalent poliovirus vaccine, live, oral Tori Warchol [employer] Work Phone: [facility] 09-18-1994 DTP-Haemophilus influenzae type b conjugate vaccine Tori Warchol [employer] Work Phone: [facility] 09-18-1994 hepatitis B vaccine, pediatric or pediatric/adolescent dosage Tori Warchol [employer] Work Phone: [facility] 09-18-1994 trivalent poliovirus vaccine, live, oral Tori Warchol [employer] Work Phone: [facility] 1993 diphtheria, tetanus toxoids and pertussis vaccine Tori Warchol [employer] Work Phone: [facility] 1993 haemophilus influenz ae type b vaccine, conjugate unspecified formulation Tori Warchol [employer] Work Phone: [facility] 1993 hepatitis B vaccine, pediatric or pediatric/adolescent dosage Tori Warchol [employer] Work Phone: [facility] 1993 trivalent poliovirus vaccine, live, oral Tori Warchol [employer] Work Phone: [facility] Payers Date Payer Category Payer Medicaid [employer] [place] Member Subscriber Plan / Payer (Effective 2024-Present) Name: Cecelia Johnson Relation to Subscriber: Self Name: Cecelia Johnson Payer ID: Not on file Type: Not on file Address: [place] [id number] 2023 Self-pay [id number] 2022 Blue Cross Blue Shield BCBS Memb er Subscriber Plan / Payer (Effective 2022-Present) Name: Cecelia Johnson Relation to Subscriber: Self Name: Cecelia Johnson Payer ID: Not on file Type: Not on file Address: [address] [place] [id number] 2022 Unknown BCBS BCBS [id number] [id number] 2022-Present [phone] [address] [place] [id number] 2017 Private Health Insurance [id number] 1993 Unknown [id number] 2.16.840.1.512637.3.579. 2.176 1993 Unknown [id number] 2.16.840.1.248235.3.579. 2.176 1993 Unknown [id number] 2.16.840.1.204449.3.579. 2.593 1993 Unknown [id number] 2.16.840.1.883063.3.579. 2.593 1993 Unknown [id number] 2.16.840.1.138442.3.579. 2.593 1993 Unknown [id number] 2.16.840.1.227885.3.579. 2.593 1993 Unknown [id number] 2.16.840.1.451128.3.579. 2.593 1993 Unknown [id number] 2.16.840.1.715128.3.579. 2.593 1993 Unknown [id number] 2.16.840.1.824499.3.579. 2.593 1993 Unknown [id number] 2.16.840.1.422703.3.579. 2.593 1993 Unknown [id number] 2.16.840.1.160536.3.579. 2.593 1993 Unknown [id number] 2.16.840.1.386630.3.579. 2.59 1993 Unknown [id number] 2.16.840.1.828489.3.579. 2.593 1993 Unknown [id number] 2.16840.1.776898.3.579. 2.593 1993 Unknown [id number] 2.16840.1.804291.3.579. 2.593 1993 Unknown [id number] 2.16.840.1.539892.3.579. 2.593 1993 Unknown [id number] 2.16.840.1.479239.3.579. 2.125 1993 Unknown [id number] 2.16.840.1.363396.3.579. 2.125 1993 Unknown [id number] 2.16.840.1.685228.3.579. 2.1259 1993 Unknown [id number] 2.16.840.1.103921.3.579. 2.125 1993 Unknown [id number] 2.16.840.1.681563.3.579. 2.1259 1993 Unknown [id number] 2.16.840.1.577430.3.579. 2.1259 1993 Unknown [id number] 2.16.840.1.760889.3.579. 2.1259 1993 Unknown [id number] 2.16.840.1.813766.3.579. 2.1259 1959 Self-pay [id number] 1959 Unknown [id number] 1959 Unknown [id number] 1959 Unknown [id number] Unknown [id number] 2.16.840.1.225074.3.579. 2.593 Unknown HCAP/HFA/FAP Active [id number] Unknown [id number] 2.16.840.1.285257.3.579. 2.531 Social History Date Type Detail Facility Start: 08-27-2016 End: 09-25-2022 Tobacco smoking status WVIS Never smoked tobacco [facility] Start: 09-25-2022 Tobacco use and exposure Smoke less tobacco non-user [facility] Start: 04-16-2023 End: 03-09-2024 Alcohol intake Current drinker of alcohol (finding) [...] of Present illness Narrative 02-10-2024 Lillie Azul LPN - 02/10/2024 1:50 PM EDT Note Date [...] esophagitis 09/01/2022 Moderate persistent asthma without complication ([facility]) 09/01/2022 Hypothyroidism, unspecified ([facility]) 03/02/2020 Moderate asthma ([facility]) 01/11/2024 Resolved Ambulatory Problems Diagnosis Date Noted Acquired hypothyroidism ([facility]) 09/01/2022 Allergic rhinitis 09/01/2022 Amenorrhea 09/01/2022 Asthma without status asthmaticus ([facility]) 09/01/2022 Attention deficit hyperactivity disorder ([facility]) 09/01/2022 Asthma affecting , antepartum ([facility]) 09/01/2022 Binge eating disorder 09/01/2022 Difficulty concentrating 09/01/2022 Irregular menstrual cycle 09/01/2022 Left sided sciatica 09/01/2022 Insomnia 09/01/2022 Migraines ([facility]) 09/01/2022 Metallic taste 09/01/2022 Mild persistent asthma without complication ([facility]) 09/01/2022 MTHFR mutation 09/01/2022 Nondependent cannabis abuse 09/01/2022 Other chronic pain 09/01/2022 Seasonal allergies 09/01/2022 Skin sensation disturbance 09/01/2022 Transitory mood disturbance 09/01/2022 Verruca plantaris 09/01/2022 Past Medical History: Diagnosis Date Acid reflux ADHD (attention deficit hyperactivity disorder) ([facility]) Asthma ([facility]) GERD (gastroesophageal reflux disease) Hypothyroid ([facility]) Lactose intolerance Marijuana use Migraine ([facility]) Mild persistent asthma, uncomplicated ([facility]) Supervision of normal Thyroid disease ([facility]) HISTORY PAST MEDICAL HISTORY SOCIAL HISTORY Past Medical History: Diagnosis Date Acid reflux ADHD (attention deficit hyperactivity disorder) ([facility] Asthma ([facility]) Asthma affecting , antepartum ([facility]) GERD (gastroesophageal reflux disease) Hypothyroid ([facility]) Lactose intolerance Marijuana use Migraine ([facility]) Mild persistent asthma, uncomplicated ([facility]) MTHFR mutation Seasonal allergies Supervision of normal Thyroid disease ([facility]) Social History Tobacco Use Smoking status: Never [...] 2008 Plica band removal, left knee arthroscopy LA BREAST REDUCTION 10/2018 TONSILLECTOMY 1998 REVIEW OF [...] Facility Evaluation note No assessment information availa [facility] Work Phone: Evaluation note Note Date & [...] section and content) DATE CREATED AUTHOR 11/18/2018 [facility] DATE CREATED AUTHOR AUTHOR'S ORGANIZ ATION 11/26/[address] [facility] DATE CREATED AUTHOR AUTHOR'S ORGANIZ ATION 09/09/2022 [facility] DATE CREATED AUTHOR AUTHOR'S ORGANIZ ATION 03/12/2024 [facility] EPIC DATE CREATED AUTHOR AUTHOR'S ORGANIZ ATION 03/16/2024 [facility] Reason for Visit (unrecogniz ed section and content) Reason Onset Date Comments Med Refill 06/02/2023 Reason Comments Routine Visit Care Teams (unrecognized sec tion and content) Club Steward Relationship Specialty Start Date End Date Carlos Alberto Coleman MD [address] [place] [address] PCP - General Family Medicine 09/24/22 Tori Martinez NP [address] [place] [address] Nurse Practitioner Family Medicine 09/24/22 Sofie Gr NP [address] [place] [address] Nurse Practitioner Pulmonary Disease 04/14/23 Team Status: Active Member Role Status Dates Carlos Alberto Coleman MD Primary Care Provider Active Team Status: Inactive Member Role Status Dates Carlos Alberto Coleman MD Primary Care Provider Active S tart: July 13, 2023 End: July 13, 2023 Sofie Gr NP-C Attending Provider Active Start: July 13, 2023 End: July 13, 2023 Club Steward Relationship Specialty Start Date End Date Carlos Alberto Coleman MD [address] [place] [address] PCP - General Family Medicine 09/24/22 Tori Martinez NP [address] [place] [address] PCP - [place] [employer] 05/28/23 Tori Martinez NP [address] [place] [id number] Nurse Practitioner Family Medicine 09/24/22 Sofie Gr NP [address] [place] [address] Nurse Practitioner Pulmonary Disease 04/14/23 Club Steward Relationship Specialty Start Date End Date Carlos Alberto Coleman MD [address] [place] [address] PCP - General Family Medicine 09/24/22 Tori Martinez NP [address] [place] [address] PCP - [place] [employer] 05/28/23 Tori Martinez NP [address] [place] [address] Nurse Practitioner Family Medicine 09/24/22 Sofie Gr NP [address] [place] [phone] Nurse Practitioner Pulmonary Disease 04/14/23 Club Steward Relationship Specialty Start Date End Date Carlos Alberto Coleman MD [address] [place] [address] PCP - General Family Medicine 09/24/22 Tori Martinez NP [address] [place] [address] PCP - [place] [employer] 05/28/23 Tori Martinez NP [address] [place] [address] Nurse Practitioner Family Medicine 09/24/22 Sofie Gr NP [address] [place] [phone] Nurse Practitioner Pulmonary Disease 04/14/23 Club Steward Relationship Specialty Start Date End Date Carlos Alberto Coleman MD [address] [place] [address] PCP - General Family Medicine 09/24/22 Tori Martinez NP [address] [place] [address] PCP - [place] [employer] 05/28/23 Tori Martinez NP [address] [place] [address] Nurse Practitioner Family Medicine 09/24/22 Sofie Gr NP [address] [place] [address] Nurse Practitioner Pulmonary Disease 04/14/23 Goals (unrecognized [...] BE BASED ON THE PRIMARY CLINICAL RECORDS. [employer] [facility]. provides no warranty or guarantee of the accuracy or completeness of information in this document.
[2024-03-19 10:10] LABS: Thyroid Stimulating Hormone 1.722 uIU/mL (0.358-3.740)
== END 2024-03-19 08:12 | disposition home or self-care (01) ==
LOC: LAB 08:13
PROVIDERS: PCP Family Medicine; Visit Provider Obstetrics & Gynecology
DX: E03.8 Other specified hypothyroidism (principal)
CPT/HCPCS: 36415; 84443

== ENCOUNTER 2024-03-19 08:15 | Outpatient (OUT) | payer BC, MEDICAID, SELFPAY ==
--- OUTSIDE RECORDS SUMMARY | 2024-03-19 08:19 | XMS_ITS | CCD ---
Author Organization [facility] Care Team Providers Care Sales Service Professional Name Role Phone MILTON RENEEISH R Referring [...] ÁNGEL Attending Unavailable KIEPERT, ÁNGEL Admitting Unavailable [place], DR DEANNA Lance Consulting Unavailable PAY ., [...] Carlos Alberto Coleman MD Primary Care Provider Michelle WEDDING COORDINATOR, Tori Unavailable Maile WEDDING COORDINATOR, Sofie R Unavailable [phone] MD Carlos Alberto Coleman Primary Care Provider HEATHER Gr Attending Provider Maile WEDDING COORDINATOR, Sofie R Unavailable Michelle WEDDING COORDINATOR, Tori Unavailable SOFIE GR Attending Unavailable SAMUELCHOL, [...] source) Cefuroxime Drug Allergy 04-04-20 22 [facility] (2 sources) Ciprofloxacin Drug Allergy 04-03-20 16 [facility] (2 sources) Doxycycline Drug Allergy 05-20-19 21 vomiting [facility] (1 source) Flupenthixol Drug Allergy 04-04-20 22 [facility] (7 sources) Cefuroxime Drug Allergy 05-20-19 21 Rash [facility] (6 sources) Ciprofloxacin Drug Allergy 09-02-19 23 Shortness of breath [facility] (6 sources) Ciprofloxacin Drug Allergy 09-02-19 23 Shortness of breath [facility] (6 sources) cloNIDine Drug Allergy 03-14-20 21 [facility] (6 sources) cloNIDine Drug Allergy 09-02-19 23 [facility] (6 sources) Doxycycline Drug Allergy 05-20-19 21 GI intolerance [facility] (6 sources) Gluten Propensity to adverse reactions 11-11-19 19 [facility] (6 sources) Lactose (non-medical use) Allergy to substance 09-02-19 23 [facility] (6 sources) Lactose (non-medical use) Drug Intolerance 11-11-19 19 [facility] (6 sources) Octacosanol Drug Intolerance 11-11-19 19 [facility] (6 sources) Other Allergy to substance 11-11-19 19 [facility] (6 sources) Silver Allergy to substance 09-02-19 23 [facility] (6 sources) Wound Dressing Adhesive Drug Allergy 09-02-19 23 [facility] (1 source) Cefuroxime Drug Allergy 05-20-19 21 [facility] (1 source) Ciprofloxacin Drug Allergy 05-20-19 21 [facility] (1 source) Doxycycline Drug Allergy 05-20-19 21 [facility] Medications Current Medications Medication Drug Class(es) Dates Sig (Normalized) Sig (Original) [id number] 200 actuat albuterol 0.09 mg/actuat metered dose [...] <-Panic Low,>-Panic High,A-Abnormal,AA-Critical Abnormal Performed at: 01 =[address] [place] [address] Radha Browne MD, HPV APTIMA Negative Negative [facility] Comment on above: This nucleic acid am plification test detects fourteen high- risk HPV types (16,18,31,33,35,39,45,51,52,56,58,59,66,68) without differentiation. Performed at: =[address] [id number] Technical Account Manager: Radha Browne MD, Phone: [phone] Performed at: [address] [id number] Technical Account Manager: Radha Browne MD, Phone: [phone] IGP, APTIMA HPV, RFX 16/18,45 Note . [facility] Comment on above: TESTS RESULT FLAG UN ITS REF RANGE LAB DIAGNOSIS: 02 NEGATIVE FOR INTRAEPITHELIAL LESION OR MALIGNANCY. Specimen adequacy: 02 Satisfactory for evaluation. No endocervical component is identified. Performed by: 02 Danie Vargas, Internal Control Consultant (ASC) . 02 Note: Note 02 The [...] High,A-Abnormal,AA-Critical Abnormal Performed at: 02 [facility] [address] [place] [address] Radha Browne MD, [facility] Urinalysis macro (dipstick) panel (U)on 02-10-2024 Bilirubin, UA Negative Negative - 4(70) +++ mg/dL [facility] Blood, UA Negative Negative - 50 Mendel/mcL [facility] Clarity, UA Clear [facility] Color, UA Yellow [facility] Glucose, UA Negative Negative - 1999(110) ++++ mg/dL [facility] Interpretation and review of laboratory results Abnormal [facility] Ketones, UA Negative Negative - 160(16) ++++ mg/dL [facility] Leukocytes, UA Trace Negative - 500+++ Leighann/mcL [facility] Nitrite, UA Negative Negative - Positive [facility] pH, UA 7 5 - 9 [facility] Protein, UA Negative Negative - 1999(20) ++++ mg/dL [facility] Spec Grav, UA 1.02 1 - 1.03 [facility] Urobilinogen, UA 0.2 0.2 - 12 mg/dL [facility] BioFire Not Detectedon 07-12 BioFire Not Detected Not detected Normal Not Detecte T krystina [facility] Comment on above: Result Comment: This is a duplicate RP2.1 COVID (PCR) result to be used for statistical tracking purpose only. PERFORMED BY: [facility] Sona [place] [address] PATHOLOGIST HEALTH SPA MANAGER CATY NEELY M.D. Performed By: #### R RODGER PANEL UPP., BIOFIRECOVNOTDE #### [facility] [address] COVID-19 Detected/Not Detect edOrdered By: Sofie Gr on 07-13-2023 SARS-CoV-2 (COVID-19) RNA JUAN+non-probe Ql (Nph) Not detected Not Detecte [facility] Comment on above: This is a [...] Influenza A H3 Blank Space PERFORMED BY: [address] [place] [address] PATHOLOGIST HEALTH SPA MANAGER CATY NEELY M.D. Normal The [facility] Comment on above: Performed By: #### R RODGER PANEL UPP., BIOFIRECOVNOTDE #### [facility] [id number] [facility] Respiratory pathogens DNA an d RNA panel - Nasopharynx by JUAN with non-probe detectionOrdered By: Sofie Gr on 07-13-2023 Respiratory pathogens DNA and RNA panel JUAN+non-probe (Nph) [facility] CBC AUTO DIFFon 06-25-2022 BASO # 0.0 103/ul Normal 0.0-0.1 [facility] Comment on above: Performed By: #### C BC #### [facility] [address] [address] [address] Garland Kohli Basophils/100 WBC (Bld) 0.4 % Normal 0.2-2.0 [facility] Comment on above: Performed By: #### C BC #### [facility] [address] [address] [address] Garland Kohli EO # 0.1 103/ul Normal 0.0-0.7 [facility] Comment on above: Performed By: #### C BC #### [facility] [address] [address] [address] Garland Kohli Eosinophils/100 WBC (Bld) 0.9 % Normal 0.9-7.0 [facility] Comment on above: Performed By: #### C BC #### [facility] [address] [address] [address] Garland Kohli Erythrocyte distribution width (RBC) [Ratio] 12.4 % Normal 11.0-15.0 [facility] Comment on above: Performed By: #### C BC #### [facility] [address] [address] [address] Garland Kohli Hematocrit (Bld) [Volume fraction] 31.4 % Critically low 36.0-48.0 [facility] Comment on above: Performed By: #### C BC #### [facility] [address] [address] [address] Garland Kohli Hemoglobin (Bld) [Mass/Vol] 10.4 g/dL Critically low 12.0-16.0 [facility] Comment on above: Performed By: #### C BC #### [facility] [address] [place] [address] Dr. Garland Kohli IG # 0.04 10e3/ul Critically high 0.00-0.03 [facility] Comment on above: Performed By: #### C BC #### [facility] [address] [place] [address] Dr. Garland Kohli IG % 0.4 % Normal 0.0-0.5 [facility] Comment on above: Performed By: #### C BC #### [facility] [address] [place] [address] Dr. Garland Kohli LYMPH # 2.0 103/ul Normal 1.2-3.8 [facility] Comment on above: Performed By: #### C BC #### [facility] [address] [place] [address] Dr. Garland Kohli Lymphocytes/100 WBC (Bld) 22.1 % Normal 20.5-60.0 [facility] Comment on above: Performed By: #### C BC #### [facility] [address] [place] [address] Dr. Garland Kohli MANUAL DIFF REQ NO Normal [facility] Comment on above: Performed By: #### C BC #### [facility] [address] [place] [address] Dr. Garland Kohli MCH (RBC) [Entitic mass] 30.1 pg Normal 26.7-34.0 [facility] Comment on above: Performed By: #### C BC #### [facility] [address] [place] [address] Dr. Garland Kohli MCHC (RBC) [Mass/Vol] 33.1 g/dL Normal 29.9-35.2 [facility] Comment on above: Performed By: #### C BC #### [facility] [address] [place] [address] Dr. Garland Kohli MCV (RBC) [Entitic vol] 91.0 fL Normal 81.0-99.0 [facility] Comment on above: Performed By: #### C BC #### [facility] [address] [place] [address] Dr. Garland Kohli MONO # 0.8 103/ul Normal 0.3-0.8 [facility] Comment on above: Performed By: #### C BC #### [facility] [address] [place] [address] Dr. Garland Kohli Monocytes/100 WBC (Bld) 8.8 % Normal 1.7-12.0 [facility] Comment on above: Performed By: #### C BC #### [facility] [address] [place] [address] Dr. Garland Kohli NEUT # 6.0 103/ul Normal 1.4-6.5 [facility] Comment on above: Performed By: #### C BC #### [facility] [address] [place] [address] Dr. Garland Kohli Neutrophils/100 WBC (Bld) 67.4 % Normal 43.0-75.0 [facility] Comment on above: Performed By: #### C BC #### [facility] [address] [place] [address] Dr. Garland Kohli Platelet mean volume (Bld) [Entitic vol] 12.0 fL Normal 9.5-13.5 [facility] Comment on above: Performed By: #### C BC #### [facility] [address] [place] [address] Dr. Garland Kohli PLT 151 103/ul Normal 150-450 [facility] Comment on above: Performed By: #### C BC #### [facility] [address] [place] [address] Dr. Garland Kohli RBC 3.45 106/ul Critically low 4.20-5.40 [facility] Comment on above: Performed By: #### C BC #### [facility] [address] [place] [address] Dr. Garland Kohli WBC 8.9 103/ul Normal 4.0-11.0 [facility] Comment on above: Performed By: #### C BC #### [facility] [address] [place] [address] Dr. Garland Kohli CBC AUTO DIFFon 02-27-2023 BASO # 0.0 103/ul Normal 0.0-0.1 [facility] Comment on above: Performed By: #### C BC #### [facility] [address] [place] [address] Dr. Garland Kohli Basophils/100 WBC (Bld) 0.4 % Normal 0.2-2.0 [facility] Comment on above: Performed By: #### C BC #### [facility] [address] [place] [address] Dr. Garland Kohli EO # 0.1 103/ul Normal 0.0-0.7 [facility] Comment on above: Performed By: #### C BC #### [facility] [address] [place] [address] Dr. Garland Kohli Eosinophils/100 WBC (Bld) 0.8 % Critically low 0.9-7.0 [facility] Comment on above: Performed By: #### C BC #### [facility] [address] [place] [address] Dr. Garland Kohli Erythrocyte distribution width (RBC) [Ratio] 12.4 % Normal 11.0-15.0 [facility] Comment on above: Performed By: #### C BC #### [facility] [address] [place] [address] Dr. Garland Kohli Hematocrit (Bld) [Volume fraction] 34.5 % Critically low 36.0-48.0 [facility] Comment on above: Performed By: #### C BC #### [facility] [address] [place] [address] Dr. Garland Kohli Hemoglobin (Bld) [Mass/Vol] 11.6 g/dL Critically low 12.0-16.0 [facility] Comment on above: Performed By: #### C BC #### [facility] [address] [place] [address] Dr. Garland Kohli IG # 0.04 10e3/ul Critically high 0.00-0.03 [facility] Comment on above: Performed By: #### C BC #### [facility] [address] [place] [address] Dr. Garland Kohli IG % 0.5 % Normal 0.0-0.5 [facility] Comment on above: Performed By: #### C BC #### [facility] [address] [place] [address] Dr. Garland Kohli LYMPH # 1.3 103/ul Normal 1.2-3.8 [facility] Comment on above: Performed By: #### C BC #### [facility] [address] [place] [address] Dr. Garland Kohli Lymphocytes/100 WBC (Bld) 17.6 % Critically low 20.5-60.0 [facility] Comment on above: Performed By: #### C BC #### [facility] [address] [place] [address] Dr. Garland Kohli MANUAL DIFF REQ NO Normal [facility] Comment on above: Performed By: #### C BC #### [facility] [address] [place] [address] Dr. Garland Kohli MCH (RBC) [Entitic mass] 29.6 pg Normal 26.7-34.0 [facility] Comment on above: Performed By: #### C BC #### [facility] [address] [place] [address] Dr. Garland Kohli MCHC (RBC) [Mass/Vol] 33.6 g/dL Normal 29.9-35.2 [facility] Comment on above: Performed By: #### C BC #### [facility] [address] [place] [address] Dr. Garland Kohli MCV (RBC) [Entitic vol] 88.0 fL Normal 81.0-99.0 [facility] Comment on above: Performed By: #### C BC #### [facility] [address] [place] [address] Dr. Garland Kohli MONO # 0.9 103/ul Critically high 0.3-0.8 [facility] Comment on above: Performed By: #### C BC #### [facility] [address] [place] [address] Dr. Garland Kohli Monocytes/100 WBC (Bld) 11.7 % Normal 1.7-12.0 [facility] Comment on above: Performed By: #### C BC #### [facility] [address] [place] [address] Dr. Garland Kohli NEUT # 5.1 103/ul Normal 1.4-6.5 [facility] Comment on above: Performed By: #### C BC #### [facility] [address] [place] [address] Dr. Garland Kohli Neutrophils/100 WBC (Bld) 69.0 % Normal 43.0-75.0 [facility] Comment on above: Performed By: #### C BC #### [facility] [address] [place] [address] Dr. Garland Kohli Platelet mean volume (Bld) [Entitic vol] 12.1 fL Normal 9.5-13.5 [facility] Comment on above: Performed By: #### C BC #### [facility] [address] [place] [address] Dr. Garland Kohli PLT 193 103/ul Normal 150-450 [facility] Comment on above: Performed By: #### C BC #### [facility] [address] [place] [address] Dr. Garland Kohli RBC 3.92 106/ul Critically low 4.20-5.40 [facility] Comment on above: Performed By: #### C BC #### [facility] [address] [place] [address] Dr. Garland Kohli WBC 7.4 103/ul Normal 4.0-11.0 [facility] Comment on above: Performed By: #### C BC #### [facility] [address] [place] [address] Dr. Garland Kohli DRUG SCREEN RAPID (URINE)on 06-23-2022 AMP Negative Normal NEGATIVE [facility] Comment on above: Performed By: #### D RUGRPD #### [facility] [address] [place] [address] Dr. Garland Kohli BAR Negative Normal NEGATIVE [facility] Comment on above: Performed By: #### D RUGRPD #### [facility] [address] [place] [address] Dr. Garland Kohli BUP Negative Normal NEGATIVE [facility] Comment on above: Performed By: #### D RUGRPD #### [facility] [address] [place] [address] Dr. Garland Kohli BZO Negative Normal NEGATIVE [facility] Comment on above: Performed By: #### D RUGRPD #### [facility] [address] [place] [address] Dr. Garland Kohli JUANI Negative Normal NEGATIVE [facility] Comment on above: Performed By: #### D RUGRPD #### [facility] [address] [place] [address] Dr. Garland Kohli CUT-OFFS SEE BELOW Normal [facility] Comment on above: Result Comment: AMP (Amphetamine): 500ng/mL, BAR (Barbituates): 200 ng/mL, BZO (Benzodiazepines): 150 ng/mL, BUP (Buprenorphine): 10 ng/mL, JUANI (Cocaine): 150 ng/mL, mAMP (Methamphetamine): 500 ng/mL, MTD (Methadone): 200 ng/mL, OPI (Opiates): 100 ng/mL, OXY (Oxycodone): 100 ng/mL, PCP (Phencyclidine): 25 ng/mL, PPX (Propoxyphene): 300 ng/mL, THC (Cannabinoids): 50 ng/mL, TCA (Trycyclic Antidepressants): 300 ng/mL Performed By: #### D RUGRPD #### [facility] [address] [place] [address] Dr. Garland Kohli DRUG CUT HEADER DRUG CLASS TEST SYSTEM CUT-OFF CONCENTRATIONS ARE FOLLOWS: Normal [facility] Comment on above: Performed By: #### D RUGRPD #### [facility] [address] [place] [address] Dr. Garland Kohli mAMP Negative Normal NEGATIVE [facility] Comment on above: Performed By: #### D RUGRPD #### [facility] [address] [place] [address] Dr. Garland Kohli MTD Negative Normal NEGATIVE [facility] Comment on above: Performed By: #### D RUGRPD #### [facility] [address] [place] [address] Dr. Garland Kohli OPI Negative Normal NEGATIVE [facility] Comment on above: Performed By: #### D RUGRPD #### [facility] [address] [place] [address] Dr. Garland Kohli OXY Negative Normal NEGATIVE [facility] Comment on above: Performed By: #### D RUGRPD #### [facility] [address] [address] [address] Garland Kohli PCP Negative Normal NEGATIVE [facility] Comment on above: Performed By: #### D RUGRPD #### [facility] [address] [place] [address] Dr. Garland Kohli PPX Negative Normal NEGATIVE [facility] Comment on above: Performed By: #### D RUGRPD #### [facility] [address] [place] [address] Dr. Garland Kohli TCA Negative Normal NEGATIVE [facility] Comment on above: Performed By: #### D RUGRPD #### [facility] [address] [place] [address] Dr. Garland Kohli THC Negative Normal NEGATIVE [facility] Comment on above: Performed By: #### D RUGRPD #### [facility] [address] [place] [address] Dr. Garland Kohli TYPE AND SCREENon 06-23-2022 TYPE AND SCREEN Negative Normal [facility] Comment on above: Performed By: #### T NS #### [facility] [address] [place] [address] Dr. Garland Kohli FREE T4on 06-07-2022 Free T4 [Mass/Vol] 0.76 ng/dL Normal 0.76-1.46 [facility] Comment on above: Performed By: #### C BC #### [facility] [address] [place] [address] Dr. Garland Kohli TSHon 06-07-2022 TSH 1.393 uIU/mL Normal 0.358-3.740 [facility] Comment on above: Performed By: #### T SH #### [facility] [address] [place] [address] Dr. Garland Kohli GROUP B STREP CULTUREon S. agalactiae Ag Ql (Unsp spec) Culture Observations: NEGATIVE FOR GROUP B STREPTOCOCCUS. Normal [facility] Comment on above: Performed By: #### C BC #### [facility] [address] [place] [address] Dr. Garland Kohli GTT 3 HR PREGon 04-16-2022 Glucose [Mass/Vol] 87 mg/dL Normal 74-106 [facility] Comment on above: Performed By: #### G TT3P #### [facility] [address] [place] [address] Dr. Garland Kohli Glucose [Mass/Vol] 148 mg/dL Normal [facility] Comment on above: Performed By: #### G TT3P #### [facility] [address] [place] [address] Dr. Garland Kohli Glucose [Mass/Vol] 128 mg/dL Normal [facility] Comment on above: Performed By: #### G TT3P #### [facility] [address] [place] [address] Dr. Garland Kohli Glucose [Mass/Vol] 105 mg/dL Normal [facility] Comment on above: Performed By: #### G TT3P #### [facility] [address] [place] [address] Dr. Garland Kohli CBC AUTO DIFFon 04-04-2022 BASO # 0.0 103/ul Normal 0.0-0.1 [facility] Comment on above: Performed By: #### G TT3P #### [facility] [address] [place] [address] Dr. Garland Kohli Basophils/100 WBC (Bld) 0.2 % Normal 0.2-2.0 [facility] Comment on above: Performed By: #### G TT3P #### [facility] [address] [place] [address] Dr. Garland Kohli EO # 0.0 103/ul Normal 0.0-0.7 [facility] Comment on above: Performed By: #### G TT3P #### [facility] [address] [address] [address] Garland Kohli Eosinophils/100 WBC (Bld) 0.4 % Critically low 0.9-7.0 [facility] Comment on above: Performed By: #### G TT3P #### [facility] [address] [place] [address] Dr. Garland Kohli Erythrocyte distribution width (RBC) [Ratio] 12.9 % Normal 11.0-15.0 [facility] Comment on above: Performed By: #### G TT3P #### [facility] [address] [place] [address] Dr. Garland Kohli Hematocrit (Bld) [Volume fraction] 32.5 % Critically low 36.0-48.0 [facility] Comment on above: Performed By: #### G TT3P #### [facility] [address] [place] [address] Dr. Garland Kohli Hemoglobin (Bld) [Mass/Vol] 11.2 g/dL Critically low 12.0-16.0 [facility] Comment on above: Performed By: #### G TT3P #### [facility] [address] [place] [address] Dr. Garland Kohli IG # 0.07 10e3/ul Critically high 0.00-0.03 [facility] Comment on above: Performed By: #### G TT3P #### [facility] [address] [place] [address] Dr. Garland Kohli IG % 0.8 % Critically high 0.0-0.5 [facility] Comment on above: Performed By: #### G TT3P #### [facility] [address] [place] [address] Dr. Garland Kohli LYMPH # 0.9 103/ul Critically low 1.2-3.8 [facility] Comment on above: Performed By: #### G TT3P #### [facility] [address] [place] [address] Dr. Garland Kohli Lymphocytes/100 WBC (Bld) 10.4 % Critically low 20.5-60.0 [facility] Comment on above: Performed By: #### G TT3P #### [facility] [address] [place] [address] Dr. Garland Kohli MANUAL DIFF REQ NO Normal [facility] Comment on above: Performed By: #### G TT3P #### [facility] [address] [place] [address] Dr. Garland Kohli MCH (RBC) [Entitic mass] 31.4 pg Normal 26.7-34.0 [facility] Comment on above: Performed By: #### G TT3P #### [facility] [address] [place] [address] Dr. Garland Kohli MCHC (RBC) [Mass/Vol] 34.5 g/dL Normal 29.9-35.2 [facility] Comment on above: Performed By: #### G TT3P #### [facility] [address] [place] [address] Dr. Garland Kohli MCV (RBC) [Entitic vol] 91.0 fL Normal 81.0-99.0 [facility] Comment on above: Performed By: #### G TT3P #### [facility] [address] [place] [address] Dr. Garland Kohli MONO # 1.1 103/ul Critically high 0.3-0.8 [facility] Comment on above: Performed By: #### G TT3P #### [facility] [address] [place] [address] Dr. Garland Kohli Monocytes/100 WBC (Bld) 12.5 % Critically high 1.7-12.0 [facility] Comment on above: Performed By: #### G TT3P #### [facility] [address] [place] [address] Dr. Garland Kohli NEUT # 6.3 103/ul Normal 1.4-6.5 [facility] Comment on above: Performed By: #### G TT3P #### [facility] [address] [place] [address] Dr. Garland Kohli Neutrophils/100 WBC (Bld) 75.7 % Critically high 43.0-75.0 [facility] Comment on above: Performed By: #### G TT3P #### [facility] [address] [address] [address] Garland Kohli Platelet mean volume (Bld) [Entitic vol] 10.5 fL Normal 9.5-13.5 [facility] Comment on above: Performed By: #### G TT3P #### [facility] [address] [address] [address] Garland Kohli PLT 181 103/ul Normal 150-450 [facility] Comment on above: Performed By: #### G TT3P #### [facility] [address] [address] [address] Garland Kohli RBC 3.57 106/ul Critically low 4.20-5.40 [facility] Comment on above: Performed By: #### G TT3P #### [facility] [address] [place] [address] Dr. Garland Kohli WBC 8.4 103/ul Normal 4.0-11.0 [facility] Comment on above: Performed By: #### G TT3P #### [facility] [address] [place] [address] Dr. Garland Kohli CTA CHEST WO W [...] DEANNA LINN Date: 2022-04-04 15:25 Normal [facility] PROF CHEM 8 (BAS METB)on Anion gap [Moles/Vol] 13.2 mmol/L Normal [facility] Comment on above: Performed By: #### G TT3P #### [facility] [address] [place] [address] Dr. Garland Kohli Calcium [Mass/Vol] 8.5 mg/dL Normal 8.5-10.1 [facility] Comment on above: Performed By: #### G TT3P #### [facility] [address] [place] [address] Dr. Garland Kohli Chloride [Moles/Vol] 103 mmol/L Normal 98-107 [facility] Comment on above: Performed By: #### G TT3P #### [facility] [address] [place] [address] Dr. Garland Kohli CO2 [Moles/Vol] 23.4 mmol/L Normal 21.0-32.0 [facility] Comment on above: Performed By: #### G TT3P #### [facility] [address] [place] [address] Dr. Garland Kohli Creatinine [Mass/Vol] 0.43 mg/dL Critically low 0.55-1.02 [facility] Comment on above: Performed By: #### G TT3P #### [facility] [address] [place] [address] Dr. Garland Kohli EGFR-AF NICARAGUAN >60 Normal >=60 [facility] Comment on above: Performed By: #### G TT3P #### [facility] [address] [place] [address] Dr. Garland Kohli EGFR-NON AF NICARAGUAN >60 Normal >=60 [facility] Comment on above: Performed By: #### G TT3P #### [facility] [address] [place] [address] Dr. Garland Kohli Glucose [Mass/Vol] 108 mg/dL Critically high 74-106 [facility] Comment on above: Performed By: #### G TT3P #### [facility] [address] [address] [address] Garland Kohli Potassium [Moles/Vol] 3.6 mmol/L Normal 3.5-5.1 [facility] Comment on above: Performed By: #### G TT3P #### [facility] [address] [address] [address] Garland Kohli Sodium [Moles/Vol] 136 mmol/L Normal 136-145 [facility] Comment on above: Performed By: #### G TT3P #### [facility] [address] [address] [address] Garland Kohli Urea nitrogen [Mass/Vol] 5.0 mg/dL Critically low 7.0-18.0 [facility] Comment on above: Performed By: #### G TT3P #### [facility] [address] [place] [address] Dr. Garland Kohli Urea nitrogen/Creatinine [Mass ratio] 11.6 mg/mg Normal [facility] Comment on above: Performed By: #### G TT3P #### [facility] [address] [place] [address] Dr. Garland Kohli TROPONIN, HIGH SENSITIVITYon 04-04-2022 HSTROP 9.3 pg/mL Normal 4.0-51.3 [facility] Comment on above: Result Comment: CUT- OFF POINTS HAVE BEEN ESTABLISHED BASED ON THE FOURTH UNIVERSAL DEFINITIONS OF MYOCARDIAL INFARCTION. THE UPPER REFERENCE LIMIT (URL) OF TROPONIN, DEFINED THE 99TH PERCENTILE OF cTnI DISTRIBUTION IN A REFERENCE POPULATION, HAS BEEN CONFIRMED THE DECISION THRESHOLD FOR [place] DIAGNOSIS. Performed By: #### G TT3P #### [facility] [address] [place] [address] Dr. Garland Kohli CBC AUTO DIFFon 03-26-2022 BASO # 0.0 103/ul Normal 0.0-0.1 [facility] Comment on above: Performed By: #### G TT3P #### [facility] [address] [place] [address] Dr. Garland Kohli Basophils/100 WBC (Bld) 0.2 % Normal 0.2-2.0 [facility] Comment on above: Performed By: #### G TT3P #### [facility] [address] [address] [address] Garland Kohli EO # 0.1 103/ul Normal 0.0-0.7 [facility] Comment on above: Performed By: #### G TT3P #### [facility] [address] [place] [address] Dr. Garland Kohli Eosinophils/100 WBC (Bld) 1.0 % Normal 0.9-7.0 [facility] Comment on above: Performed By: #### G TT3P #### [facility] [address] [place] [address] Dr. Garland Kohli Erythrocyte distribution width (RBC) [Ratio] 12.8 % Normal 11.0-15.0 [facility] Comment on above: Performed By: #### G TT3P #### [facility] [address] [place] [address] Dr. Garland Kohli Hematocrit (Bld) [Volume fraction] 36.2 % Normal 36.0-48.0 [facility] Comment on above: Performed By: #### G TT3P #### [facility] [address] [place] [address] Dr. Garland Kohli Hemoglobin (Bld) [Mass/Vol] 12.2 g/dL Normal 12.0-16.0 [facility] Comment on above: Performed By: #### G TT3P #### [facility] [address] [place] [address] Dr. Garland Kohli IG # 0.08 10e3/ul Critically high 0.00-0.03 [facility] Comment on above: Performed By: #### G TT3P #### [facility] [address] [place] [address] Dr. Garland Kohli IG % 0.9 % Critically high 0.0-0.5 [facility] Comment on above: Performed By: #### G TT3P #### [facility] [address] [place] [address] Dr. Garland Kohli LYMPH # 1.7 103/ul Normal 1.2-3.8 [facility] Comment on above: Performed By: #### G TT3P #### [facility] [address] [place] [address] Dr. Garland oKhli Lymphocytes/100 WBC (Bld) 17.8 % Critically low 20.5-60.0 [facility] Comment on above: Performed By: #### G TT3P #### [facility] [address] [place] [address] Dr. Garland Kohli MANUAL DIFF REQ NO Normal [facility] Comment on above: Performed By: #### G TT3P #### [facility] [address] [place] [address] Dr. Garland Kohli MCH (RBC) [Entitic mass] 30.7 pg Normal 26.7-34.0 [facility] Comment on above: Performed By: #### G TT3P #### [facility] [address] [place] [address] Dr. Garland Kohli MCHC (RBC) [Mass/Vol] 33.7 g/dL Normal 29.9-35.2 [facility] Comment on above: Performed By: #### G TT3P #### [facility] [address] [place] [address] Dr. Garland Kohli MCV (RBC) [Entitic vol] 91.2 fL Normal 81.0-99.0 [facility] Comment on above: Performed By: #### G TT3P #### [facility] [address] [place] [address] Dr. Garland Kohli MONO # 0.6 103/ul Normal 0.3-0.8 [facility] Comment on above: Performed By: #### G TT3P #### [facility] [address] [place] [address] Dr. Garland Kohli Monocytes/100 WBC (Bld) 6.0 % Normal 1.7-12.0 [facility] Comment on above: Performed By: #### G TT3P #### [facility] [address] [place] [address] Dr. Garland Kohli NEUT # 6.9 103/ul Critically high 1.4-6.5 [facility] Comment on above: Performed By: #### G TT3P #### [facility] [address] [address] [address] Garland Kohli Neutrophils/100 WBC (Bld) 74.1 % Normal 43.0-75.0 [facility] Comment on above: Performed By: #### G TT3P #### [facility] [address] [address] [address] Garland Kohli Platelet mean volume (Bld) [Entitic vol] 10.2 fL Normal 9.5-13.5 [facility] Comment on above: Performed By: #### G TT3P #### [facility] [address] [address] [address] Garland Kohli PLT 217 103/ul Normal 150-450 [facility] Comment on above: Performed By: #### G TT3P #### [facility] [address] [address] [address] Garland Kohli RBC 3.97 106/ul Critically low 4.20-5.40 [facility] Comment on above: Performed By: #### G TT3P #### [facility] [address] [address] [address] Garland Kohli WBC 9.3 103/ul Normal 4.0-11.0 [facility] Comment on above: Performed By: #### G TT3P #### [facility] [address] [address] [address] Garland Kohli GLUCOSE - 1HRon 03-26-2022 Glucose [Mass/Vol] 155 mg/dL Critically high 74-106 [facility] Comment on above: Performed By: #### C BC #### [facility] [address] [address] [address] Garland Kohli US PREG ANATOMY SINGLEon [...] YAAKOV TERAN Date: 2022-02-09 19:30 Normal [facility] AFP MATERNAL FOR SPINA BIFID Aon 01-29-2022 AFP MoM 0.76 Normal [facility] Comment on above: Performed By: #### G TT3P #### [facility] [address] [address] [address] Garland Kohli AFP Value 35.4 ng/mL Normal [facility] Comment on above: Performed By: #### G TT3P #### [facility] [address] [address] [address] Garland Kohli AFP, Serum for Spina Bifida Report Normal [facility] Comment on above: Performed By: #### G TT3P #### [facility] [address] [address] [address] Garland Kohli Comment Comment Normal [facility] Comment on above: Result Comment: Stanley Almodovar, Ph.D., [facility] Director . References: Available Upon Request. . Multiples Of Median Cutoffs For AFP Elevations Mark 2.5 Black 2.8 IDD 2.0 Twins 4.5 Abbreviation Definitions IDD - Insulin Dep Diabetes OSBR - Open Spina Bifida Risk . For further inquiries contact [employer] at [phone]. . This test was developed and its performance characteristics determined by [employer]. It has not been cleared or approved by the Food and Drug Administration. Performed By: #### G TT3P #### [facility] [address] [place] [address] Dr. Garland Izquierdo Age Collection Date 18.1 weeks Normal [facility] Comment on above: Performed By: #### G TT3P #### [facility] [address] [place] [address] Dr. Garland Kohli Gestat, Age Based on Ultrasound Normal [facility] Comment on above: Result Comment: 09:4 on 11/26/2021 Recalculations are not recommended when gestational dating by LMP and ultrasound are within 10 days. Performed By: #### G TT3P #### [facility] [address] [place] [address] Dr. Garland Kohli Insulin Dep Diabetes No Normal [facility] Comment on above: Performed By: #### G TT3P #### [facility] [address] [place] [address] Dr. Garland Kohli Interpretation Comment Normal [facility] Comment on above: Result Comment: Inte rpretation: [...] Customer Services to discuss available options. The [employer] recommends amniocentesis be offered to women age 35 and older. Performed By: #### G TT3P #### [facility] [address] [place] [address] Dr. Garland Kohli [age] Normal [facility] Comment on above: Performed By: #### G TT3P #### [facility] [address] [place] [address] Dr. Garland Kohli Multiple Gestation No Normal [facility] Comment on above: Performed By: #### G TT3P #### [facility] [address] [address] [address] Garland Kohli OSBR [place] [address] [facility] Comment on above: Performed By: #### G TT3P #### [facility] [address] [place] [address] Dr. Garland Kohli PDF . [facility] Comment on above: Performed By: #### G TT3P #### [facility] [address] [address] [address] Garland Kohli Race [facility] Comment on above: Performed By: #### G TT3P #### [facility] [address] [place] [address] Dr. Garland Kohli Test Results: Negative [facility] Comment on above: Performed By: #### G TT3P #### [facility] [address] [place] [address] Dr. Garland Kohli PAP ACOG PANEL 2: 21 to 29on 01-23-2022 . . [facility] Comment on above: Performed By: #### [id number] #### [facility] [address] [place] [address] Dr. Garland Kohli Age Gdln ACOG Testing - [facility] Comment on above: Performed By: #### [id number] #### [facility] [address] [place] [address] Dr. Garland Kohli DIAGNOSIS: Comment [facility] Comment on above: Result Comment: NEGA TIVE FOR INTRAEPITHELIAL LESION OR MALIGNANCY. Performed By: #### [id number] #### [facility] [address] [place] [address] Dr. Garland Kohli Methodology: Comment [facility] Comment on above: Result Comment: This liquid based ThinPrep(R) pap test was screened with the use of an image guided system. Performed By: #### [id number] #### [facility] [address] [place] [address] Dr. Garland Kohli Note: Comment Normal [facility] Comment on above: Result Comment: The Pap smear is a screening test designed to aid in the detection of premalignant and malignant conditions of the uterine cervix. It is not a diagnostic procedure and should not be used as the sole means of detecting cervical cancer. Both false-positive and false-negative reports do occur. . Performed By: #### [id number] #### [facility] [address] [place] [address] Dr. Garland Kohli Performed by: Comment Normal [facility] Comment on above: Result Comment: Kelly Arreguin, Internal Control Consultant (ASCP) Performed By: #### [id number] #### [facility] [address] [place] [address] Dr. Garland Kohli Reflex Criteria: Comment Normal [facility] Comment on above: Result Comment: The HPV DNA reflex criteria were not met with this specimen result therefore, no HPV testing was performed. . Performed By: #### [id number] #### [facility] [address] [place] [address] Dr. Garland Kohli Specimen adequacy: Comment Normal [facility] Comment on above: Result Comment: Sati sfactory for evaluation. No endocervical component is identified. Performed By: #### [id number] #### [facility] [address] [place] [address] Dr. Garland Kohli CHLAMYDIA/GONOCOCCUS JUAN (SW AB/URINE/PAPon 01-20-2022 Chlamydia trachomatis, JUAN Negative Normal Negative [facility] Comment on above: Performed By: #### C BC #### [facility] [address] [place] [address] Dr. Garland Kohli Neisseria gonorrhoeae, JUAN Negative Normal Negative [facility] Comment on above: Performed By: #### C BC #### [facility] [address] [place] [address] Dr. Garland Kohli TSHon 01-04-2022 TSH 1.707 uIU/mL Normal 0.358-3.740 [facility] Comment on above: Performed By: #### G TT3P #### [facility] [address] [place] [address] Dr. Garland Kohli HEPATITIS C VIRUS AB W/ REFL EX QUANTon 12-17-2021 HCV AB <0.1 Normal 0.0-0.9 [facility] Comment on above: Performed By: #### G TT3P #### [facility] [address] [place] [address] Dr. Garland Kohli Interpretation: Comment Normal [facility] Comment on above: Result Comment: Nega tive Not infected with HCV, unless recent infection is suspected or other evidence exists to indicate HCV infection. Performed By: #### G TT3P #### [facility] [address] [place] [address] Dr. Garland Kohli CULTURE URINEon 12-15-2021 CULTURE URINE Culture Observations : GREATER THAN TWO ORGANISMS PRESENT. PLEASE RESUBMIT CLEAN CATCH MID-STREAM URINE IF CLINICALLY INDICATED. Normal [facility] Comment on above: Performed By: #### U RCX #### [facility] [address] [place] [address] Dr. Garland Kohli HEP B SURFACE ANTIGEN SCREEN on 12-15-2021 HBsAg Screen Negative Normal Negative [facility] Comment on above: Performed By: #### H BSANS #### [facility] [address] [place] [address] Dr. Garland Kohli HIV 1 AND 2 WITH REFLEXon HIV Screen 4th Generation wRfx Non-Reactive Normal Non Reactive [facility] Comment on above: Result Comment: HIV Negative HIV-1/HIV-2 antibodies and HIV-1 p24 antigen were NOT detected. There is no laboratory evidence of HIV infection. Performed By: #### H IV12 #### [facility] [address] [place] [address] Dr. Garland Kohli RPR QUANTon 12-15-2021 Rapid Plasma Reagin, Quant Non-Reactive Normal NonRea<1:1 [facility] Comment on above: Result Comment: Plea se Note: This test does not meet current guidelines for screening and diagnosis of syphilis. This test is intended for following treatment response in patients being treated for syphilis infection. To screen for syphilis infection, a reflex cascade that includes both RPR and a treponema-specific assay should be utilized, such as Treponema pallidum (Syphilis) Screening Boyd (413208) or Rapid Plasma Reagin (RPR) Test With Reflex to Quantitative RPR and Confirmatory Treponema pallidum Antibodies (181427). Performed By: #### G TT3P #### [facility] [address] [place] [address] Dr. Garland Kohli RUBELLA AB IGGon 12-15-2021 Rubella Antibodies, IgG 4.72 index Normal Immune >0.99 [facility] Comment on above: Result Comment: Non- immune <0.90 Equivocal 0.90 - 0.99 Immune >0.99 Performed By: #### G TT3P #### [facility] [address] [place] [address] Dr. Garland Kohli CBC AUTO DIFFon 12-14-2021 BASO # 0.0 103/ul Normal 0.0-0.1 [facility] Comment on above: Performed By: #### C BC #### [facility] [address] [place] [address] Dr. Garland Kohli Basophils/100 WBC (Bld) 0.3 % Normal 0.2-2.0 [facility] Comment on above: Performed By: #### C BC #### [facility] [address] [place] [address] Dr. Garland Kohli EO # 0.1 103/ul Normal 0.0-0.7 [facility] Comment on above: Performed By: #### C BC #### [facility] [address] [place] [address] Dr. Garland Kohli Eosinophils/100 WBC (Bld) 0.8 % Critically low 0.9-7.0 [facility] Comment on above: Performed By: #### C BC #### [facility] [address] [place] [address] Dr. Garland Kohli Erythrocyte distribution width (RBC) [Ratio] 12.6 % Normal 11.0-15.0 [facility] Comment on above: Performed By: #### C BC #### [facility] [address] [place] [address] Dr. Garland Kohli Hematocrit (Bld) [Volume fraction] 34.3 % Critically low 36.0-48.0 [facility] Comment on above: Performed By: #### C BC #### [facility] [address] [place] [address] Dr. Garland Kohli Hemoglobin (Bld) [Mass/Vol] 11.7 g/dL Critically low 12.0-16.0 [facility] Comment on above: Performed By: #### C BC #### [facility] [address] [place] [address] Dr. Garland Kohli IG # 0.03 10e3/ul Normal 0.00-0.03 [facility] Comment on above: Performed By: #### C BC #### [facility] [address] [place] [address] Dr. Garland Kohli IG % 0.4 % Normal 0.0-0.5 [facility] Comment on above: Performed By: #### C BC #### [facility] [address] [place] [address] Dr. Garland Kohli LYMPH # 1.5 103/ul Normal 1.2-3.8 [facility] Comment on above: Performed By: #### C BC #### [facility] [address] [place] [address] Dr. Garland Kohli Lymphocytes/100 WBC (Bld) 21.1 % Normal 20.5-60.0 [facility] Comment on above: Performed By: #### C BC #### [facility] [address] [place] [address] Dr. Garland Kohli MANUAL DIFF REQ NO Normal [facility] Comment on above: Performed By: #### C BC #### [facility] [address] [place] [address] Dr. Garland Kohli MCH (RBC) [Entitic mass] 30.5 pg Normal 26.7-34.0 [facility] Comment on above: Performed By: #### C BC #### [facility] [address] [place] [address] Dr. Garland Kohli MCHC (RBC) [Mass/Vol] 34.1 g/dL Normal 29.9-35.2 [facility] Comment on above: Performed By: #### C BC #### [facility] [address] [place] [address] Dr. Garland Kohli MCV (RBC) [Entitic vol] 89.6 fL Normal 81.0-99.0 [facility] Comment on above: Performed By: #### C BC #### [facility] [address] [place] [address] Dr. Garland Kohli MONO # 0.5 103/ul Normal 0.3-0.8 [facility] Comment on above: Performed By: #### C BC #### [facility] [address] [place] [address] Dr. Garland Kohli Monocytes/100 WBC (Bld) 7.1 % Normal 1.7-12.0 [facility] Comment on above: Performed By: #### C BC #### [facility] [address] [place] [address] Dr. Garland Kohli NEUT # 5.0 103/ul Normal 1.4-6.5 [facility] Comment on above: Performed By: #### C BC #### [facility] [address] [place] [address] Dr. Garland Kohli Neutrophils/100 WBC (Bld) 70.3 % Normal 43.0-75.0 [facility] Comment on above: Performed By: #### C BC #### [facility] [address] [place] [address] Dr. Garland Kohli Platelet mean volume (Bld) [Entitic vol] 10.1 fL Normal 9.5-13.5 [facility] Comment on above: Performed By: #### C BC #### [facility] [address] [place] [address] Dr. Garland Kohli PLT 234 103/ul Normal 150-450 [facility] Comment on above: Performed By: #### C BC #### [facility] [address] [place] [address] Dr. Garland Kohli RBC 3.83 106/ul Critically low 4.20-5.40 [facility] Comment on above: Performed By: #### C BC #### [facility] [address] [place] [address] Dr. Garland Kohli WBC 7.1 103/ul Normal 4.0-11.0 [facility] Comment on above: Performed By: #### C BC #### [facility] [address] [place] [address] Dr. Garland Kohli GLYCOHEMOGLOBIN A1Con 2021 ADA RECOMMENDATION SEE BELOW Normal [facility] Comment on above: Result Comment: ADA RECOMMENDED LIMIT 4.0 - 6.0 ADA THERAPEUTIC TARGET < 7.0 ACTION SUGGESTED > 7.0 Performed By: #### A 1C #### [facility] [address] [place] [address] Dr. Garland Kohli Glucose [Mass/Vol] 103 mg/dL Normal [facility] Comment on above: Performed By: #### A 1C #### [facility] [address] [place] [address] Dr. Garland Kohli HbA1c (Bld) [Mass fraction] 5.2 % Normal 4.5-6.2 [facility] Comment on above: Performed By: #### A 1C #### [facility] [address] [place] [address] Dr. Garland Kohli MARTÍNEZ BOX TEST PT SEND OUTo n 12-14-2021 SENT TO REF LAB 12/14/21 Normal [facility] Comment on above: Performed By: #### G TT3P #### [facility] [address] [place] [address] Dr. Garland Kohli TYPE AND SCREENon 12-14-2021 TYPE AND SCREEN Negative Normal [facility] Comment on above: Performed By: #### C BC #### [facility] [address] [place] [address] Dr. Garland Kohli US PREG TVon 11-26-2021 [...] BY US CRL: 9 weeks, 4 days SERNEA BY US CRL: 06/27/2022 IMPRESSION: 1. Single live intrauterine . 2. Left ovary contains a large 4.8 cm benign-appearing cyst. Consider follow-up to document resolution. 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 Steri-Strips applied throughout and then bulky gauze dressing as well as surgical bra was applied. The patient was awoken, extubated, and transported to the recovery room in stable condition. Sponge, needle, and instrument counts were reported correct x2 at the end of the case. MODE Gilliland: 11/24/2018 12:08:16 [id number] Doc#: [id number] CC: Carlos Alberto Coleman Normal [facility] Surgical Pathologyon 019 Surgical Pathology (NOTE) [id number] [facility] [address] [place] [address] SURGICAL PATHOLOGY REPORT Patient Name: CECELIA JOHNSON MR#: [id number] Specimen #[id number] Final Diagnosis SPECIMEN A : BREAST AND [...] The entire specimen weighs 453 grams. Multiple tour sales representative sections are submitted in five [...] also sampled in multiple different areas and tour sales representative sections are submitted in five cassettes for microscopic examination. Microscopic Description Specimen A : Five RICHARD glass slides are received. Microscopic examination is performed. Specimen B : Five RICHARD glass slides are received. Microscopic examination is performed. Normal [facility] Comment on above: Performed By: #### P PPES #### [facility] [address] [place] [address] Technical Account Manager: Victor Manuel Hunter DO CNOVSPon 11-18-2018 OVS Visit (SP) Office (KATHARINE) TONYCECELIA ([id number]) 1995 F Date Time Provider Department 11/18/18 1:00 PM JAZ MOULTON) KATHARINE During your visit today, we recorded the following information about you: Temperature Pulse Respiration Blood pressure 97.9 degrees 82/minute 18/minute 122/78 Weight Height Last Period 82.7 kg 1.6 m 10/15/18 Jaz Moulton MD 11/18/2018 3:08 PM Signed PATIENT NAME: Cecelia RODRIGUEZ NO.: [id number] ATTENDING PHYSICIAN: Jaz Moulton MD DATE OF [...] file Gets together: Not on file Attends confucianism service: Not on file Active member of [...] contact me at the number below. Jaz Muolton M.D. Hematology/Medical Oncology [facility] [phone] CC: Carlos Alberto Coleman MD - (Inactive), In Basket (Inactive) - User (Inactive) [address] [facility] [phone] () Mode Renee MD Referring Provider: [...] by JAZ MOULTON MD on 11/18/18 [facility] PRO[facility] 11-18-2018 PROGRESS HNO ID: [id number] Author: Jaz Hill) Kenney Service: ? Author Type: Physician Type: Progress Notes Filed: 11/18/2018 3:08 PM Note Text: PATIENT NAME: Cecelia Johnson [facility] NO.: [id number] ATTENDING PHYSICIAN: Jaz Moulton MD DATE OF [...] file Gets together: Not on file Attends confucianism service: Not on file Active member of [...] below. Jaz Moulton M.D. Hematology/Medical Oncology [facility] [phone] CC: Carlos Alberto Coleman MD - (Inactive), In Basket (Inactive) - User (Inactive) [address] [facility] [phone] (Ph) Mode Renee MD Normal [facility] Basic Metabolic Profon 11-10 (cont.) Normal [facility] Comment on above: Result Comment: Aver age GFR for 20-29 years old: 116 mL/min/1.73sq m Chronic Kidney Disease: <60 mL/min/1.73sq m Kidney failure: <15 mL/min/1.73sq m eGFR calculated using average adult body mass. Additional eGFR calculator available at: http://www.[employer].com/multiple_crcl_2012.htm Performed By: #### C DP, BMP #### [facility] [address] [facility] [place] [address] Technical Account Manager: Victor Manuel Hunter DO Anion gap [Moles/Vol] 11 mmol/L Normal 9-17 [facility] Comment on above: Performed By: #### C DP, BMP #### [facility] [place] [address] Technical Account Manager: Victor Manuel Hunter DO Calcium [Mass/Vol] 9.7 mg/dL Normal 8.6-10.4 [facility] Comment on above: Performed By: #### C DP, BMP #### [facility] [address] [place] [address] Technical Account Manager: Victor Manuel Hunter DO Chloride [Moles/Vol] 102 mmol/L Normal 98-107 [facility] Comment on above: Performed By: #### C DP, BMP #### [facility] [place] [address] Technical Account Manager: Victor Manuel Hunter DO CO2 [Moles/Vol] 26 mmol/L Normal 20-31 [facility] Comment on above: Performed By: #### C DP, BMP #### [facility] [place] [address] Technical Account Manager: Victor Manuel Hunter DO Creatinine [Mass/Vol] 0.49 mg/dL Low 0.50-0.90 [facility] Comment on above: Performed By: #### C DP, BMP #### [facility] [place] [address] Technical Account Manager: Victor Manuel Hunter DO GFR, Amer >60 Normal >60 [facility] Comment on above: Performed By: #### C FARAZ, BMP #### [facility] [address] [place] [address] Technical Account Manager: Victor Manuel Hunter DO GFR,non Amer >60 Normal >60 [facility] Comment on above: Performed By: #### C DP, BMP #### [facility] [address] [place] [address] Technical Account Manager: Victor Manuel Hunter DO Glucose [Mass/Vol] 88 mg/dL Normal 70-99 [facility] Comment on above: Performed By: #### C DP, BMP #### [facility] [place] [address] Technical Account Manager: Victor Manuel Hunter DO Potassium [Moles/Vol] 4.3 mmol/L Normal 3.7-5.3 [facility] Comment on above: Performed By: #### C DP, BMP #### [facility] [place] [address] Technical Account Manager: Victor Manuel Hunter DO Sodium [Moles/Vol] 139 mmol/L Normal 135-144 [facility] Comment on above: Performed By: #### C DP, BMP #### [facility] [address] [facility] [place] [address] Technical Account Manager: Victor Manuel Hunter DO Urea nitrogen [Mass/Vol] 8 mg/dL Normal 6-20 [facility] Comment on above: Performed By: #### C DP, BMP #### [facility] [address] [place] [address] Technical Account Manager: Victor Manuel Hunter DO BUN/CRE Ratio NOT REPORTED Normal 9-20 [facility] Comment on above: Performed By: #### C DP, BMP #### [facility] [address] [place] [address] Technical Account Manager: Victor Manuel Hunter DO Staging: NOT REPORTED Normal [facility] Comment on above: Performed By: #### C FARAZ, BMP #### [facility] [address] [place] [address] Technical Account Manager: Victor Manuel Hunter DO CBC with Diffon 11-10-2018 Abs. Basophil 0.00 k/uL Normal 0.0-0.2 [facility] Comment on above: Performed By: #### C FARAZ, BMP #### [facility] [address] [place] [address] Technical Account Manager: Victor Manuel Hunter DO Abs.Neutrophil (Seg) 3.00 k/uL Normal 1.3-9.1 [facility] Comment on above: Performed By: #### C FARAZ, BMP #### [facility] [address] [place] [address] Technical Account Manager: Victor Manuel Hunter DO Basophils/100 WBC (Bld) 0 % Normal 0-2 [facility] Comment on above: Performed By: #### C FARAZ, BMP #### [facility] [address] [place] [address] Technical Account Manager: Victor Manuel Hunter DO Eosinophils (Bld) [#/Vol] 0.10 10*3/uL Normal 0.0-0.4 [facility] Comment on above: Performed By: #### C DP, BMP #### [facility] [address] [place] [address] Technical Account Manager: Victor Manuel Hunter DO Eosinophils/100 WBC (Bld) 1 % Normal 0-4 [facility] Comment on above: Performed By: #### C DP, BMP #### [facility] [address] [place] [address] Technical Account Manager: Victor Manuel Hunter DO Erythrocyte distribution width (RBC) [Ratio] 12.7 % Normal 11.5-14.9 [facility] Comment on above: Performed By: #### C FARAZ, BMP #### [facility] [address] [place] [address] Technical Account Manager: Victor Manuel Hunter DO Hematocrit (Bld) [Volume fraction] 42.3 % Normal 36-46 [facility] Comment on above: Performed By: #### C FARAZ, BMP #### [facility] [address] [place] [address] Technical Account Manager: Victor Manuel Hunter DO Hemoglobin (Bld) [Mass/Vol] 14.3 g/dL Normal 12.0-16.0 [facility] Comment on above: Performed By: #### C FARAZ, BMP #### [facility] [address] [place] [address] Technical Account Manager: Victor Manuel Hunter DO Lymphocytes (Bld) [#/Vol] 1.70 10*3/uL Normal 1.0-4.8 [facility] Comment on above: Performed By: #### C FARAZ, BMP #### [facility] [address] [place] [address] Technical Account Manager: Victor Manuel Hunter DO Lymphocytes/100 WBC (Bld) 32 % Normal 24-44 [facility] Comment on above: Performed By: #### C FARAZ, BMP #### [facility] [address] [place] [address] Technical Account Manager: Victor Manuel Hunter DO MCH (RBC) [Entitic mass] 30.0 pg Normal 26-34 [facility] Comment on above: Performed By: #### C DP, BMP #### [facility] [address] [place] [address] Technical Account Manager: Victor Manuel Hunter DO MCHC (RBC) [Mass/Vol] 33.7 g/dL Normal 31-37 [facility] Comment on above: Performed By: #### C FARAZ, BMP #### [facility] [place] [address] Technical Account Manager: Victor Manuel Hunter DO MCV (RBC) [Entitic vol] 89.0 fL Normal 80-100 [facility] Comment on above: Performed By: #### C DP, BMP #### [facility] [address] [place] [address] Technical Account Manager: Victor Manuel Hunter DO Monocytes (Bld) [#/Vol] 0.60 10*3/uL Normal 0.1-1.3 [facility] Comment on above: Performed By: #### C FARAZ, BMP #### [facility] [address] [place] [address] Technical Account Manager: Victor Manuel Hunter DO Monocytes/100 WBC (Bld) 11 % High 1-7 [facility] Comment on above: Performed By: #### C FARAZ, BMP #### [facility] [address] [place] [address] Technical Account Manager: Victor Manuel Hunter DO Neutrophil (Seg) 56 % Normal 36-66 [facility] Comment on above: Performed By: #### C FARAZ, BMP #### [facility] [address] [place] [address] Technical Account Manager: Victor Manuel Hunter DO Platelet mean volume (Bld) [Entitic vol] 9.4 fL Normal 6.0-12.0 [facility] Comment on above: Performed By: #### C FARAZ, BMP #### [facility] [address] [place] [address] Technical Account Manager: Victor Manuel Hunter DO Platelets (Bld) [#/Vol] 252 10*3/uL Normal 150-450 [facility] Comment on above: Performed By: #### C DP, BMP #### [facility] [place] [address] Technical Account Manager: Victor Manuel Hunter DO RBC (Bld) [#/Vol] 4.75 10*6/uL Normal 4.0-5.2 [facility] Comment on above: Performed By: #### C DP, BMP #### [facility] [address] [place] [address] Technical Account Manager: Victor Manuel Hunter DO WBC (Bld) [#/Vol] 5.3 10*3/uL Normal 3.5-11.0 [facility] Comment on above: Performed By: #### C DP, BMP #### [facility] [address] [place] [address] Technical Account Manager: Victor Manuel Hunter DO Abs.Imm.Granulocyte NOT REPORTED Normal 0.00-0.30 [facility] Comment on above: Performed By: #### C DP, BMP #### [facility] [address] [place] [address] Technical Account Manager: Victor Manuel Hunter DO Auto Diff Performed NOT REPORTED Normal [facility] Comment on above: Performed By: #### C DP, BMP #### [facility] [address] [place] [address] Technical Account Manager: Victor Manuel Hunter DO Immature granulocytes (Bld) [#/Vol] NOT REPORTED Normal 0 [facility] Comment on above: Performed By: #### C DP, BMP #### [facility] [address] [place] [address] Technical Account Manager: Victor Manuel Hunter DO NRBC Automated NOT REPORTED Normal [facility] Comment on above: Performed By: #### C DP, BMP #### [facility] [address] [facility] [place] [address] Technical Account Manager: Victor Manuel Hunter DO Platelets (Bld) [#/Vol] NOT REPORTED Normal [facility] Comment on above: Performed By: #### C DP, BMP #### [facility] [address] [facility] [place] [address] Technical Account Manager: Victor Manuel Hunter DO RBC morphology finding Nom (Bld) NOT REPORTED Normal [facility] Comment on above: Performed By: #### C DP, BMP #### [facility] [address] [facility] [place] [address] Technical Account Manager: Victor Manuel Hunter DO WBC Morphology NOT REPORTED Normal [facility] Comment on above: Performed By: #### C DP, BMP #### [facility] [address] [facility] [place] [place] [address] Technical Account Manager: Victor Manuel Hunter DO Vital Signs Date Time Vital Sign Value Performing Clinician Facility 02-10-2024 14:44-0400 Body mass index (BMI) [Ratio] 29.39 kg/m2 [employer] Work Phone: [facility] 02-10-2024 14:44-0400 Body weight 77.68 kg [employer] Work Phone: [facility] 02-10-2024 14:44-0400 Diastolic blood pressure 68 mm[Hg] Herber Nnamdi [employer] Work Phone: [facility] 02-10-2024 14:44-0400 Systolic blood pressure 116 mm[Hg] [employer] Work Phone: [facility] 01-29-2022 02:06-0400 Body weight 67.[address] ZEN BREWER . [facility] Comment on above: Performed By: #### GTT3P #### [facility] [address] [place] [address] Dr. Garland Kohli Encounters Encounter Date Encounter Type Care Provider Facility Start: 03-09-2024 End: 03-09-2024 ambulatory TORI PEPE Not Available Start: 03-09-2024 End: 03-09-2024 Bamboo flowsheet Tori Pepe PA Work Phone: [facility] Start: 03-09-2024 End: 03-09-2024 Bamboo flowsheet Tori Pepe PA Work Phone: [facility] Start: 02-10-2024 End: 02-10-2024 ambulatory HERBER NNAMDI Not Available Start: 02-10-2024 End: 02-10-2024 Bamboo flowsheet Herber Nnamdi DO Work Phone: [facility] Start: 02-10-2024 End: 02-17-2024 Bamboo flowsheet Herber Nnamdi DO Work Phone: [facility] Start: 02-10-2024 End: 02-17-2024 Clinisync Result Encounter Generic External Data Provider [facility] External Department Unsolicited Start: 02-10-2024 End: 02-10-2024 Patient encounter procedure Herber Nnamdi DO Work Phone: [facility] Start: 02-10-2024 End: 02-10-2024 Periodic preventive med est patient 18-39 yrs Herber Nnamdi DO Work Phone: [facility] Comment on above: Well woman [...] procedure MD Carlos Alberto Coleman Work Phone: [facility] Start: 07-13-2023 End: 07-13-2023 ambulatory MD Carlos Alberto Coleman Work Phone: [facility] Work Phone: Start: 07-13-2023 End: 07-13-2023 ambulatory SOFIE Ruth GR Not Available Start: 06-02-2023 Refill Tori Michelle WEDDING COORDINATOR Work Phone: [facility] Comment on above: Attention deficit hy peractivity disorder (ADHD), combined type ([facility] Start: 04-16-2023 End: 04-16-2023 ambulatory TORI MICHELLE [...] abnormal findings DR ZEN BREWER . [facility] Start: 01-17-2022 End: 01-17-[address] ZEN BREWER . Facility:[facility] Start: 01-17-2022 End: 01-17-2022 Encounter for gynecological examination (general) (routine) without abnormal findings DR ZEN BREWER . Facility: Start: 01-04-2022 End: 01-05-2022 ambulatory ÁNGEL RANDYBROOKE Facility:[facility] Start: 12-14-2021 End: 12-15-[address] ZEN BREWER . Facility: Start: 11-26-2021 End: 11-27-2021 ambulatory ÁNGEL SINHA Facility:[facility] Start: 11-24-2018 End: 11-24-2018 Patient encounter procedure [facility] Start: 11-10-2018 End: 11-15-2018 Patient encounter procedure [facility] Procedures Date Procedure Procedure Detail Performing Clinician Start: 02-10-2024 Urnls dip stick/tabl et rgnt non-auto w/o micrscp [employer] Work Phone: Start: 02-10-2024 IGP,APTIMA HPV,AGE GDLN [employer] DO Work Phone: Start: 02-10-2024 Microscopic observat [...] Screening for malign ant neoplasm of cervix [facility] Start: 04-21-2024 End: 04-21-2024 Patient encounter procedure 04/21/2024 8:30 AM EST Routine [facility] [address] [place] [phone] Herber Coto DO [address] [place] [address] [facility] Start: 04-06-2024 End: 04-06-2024 Patient encounter procedure 04/06/2024 3:20 PM EST Routine [facility] [address] [place] [phone] Tori Pepe PA [address] [place] [address] [facility] Start: 03-09-2024 End: 03-09-2024 Patient encounter procedure 03/09/2024 3:50 PM EST Routine [facility] [address] [place] [id number] Tori Pepe, PA [address] [place] [address] [facility] Start: 02-10-2024 End: 02-09-2025 Alpha fetoprotein, maternal Alpha fetoprotein, maternal Lab Routine Second trimester 19 weeks gestation of Expected: 02/10/2024 (Approximate), Expires: 02/09/2025 [facility] Comment on above: Expected: 02/10/2024 (Approximate), Expires: 02/09/2025 Start: 02-10-2024 End: 02-09-2025 US for US OB ANATOMY SINGLE W US OB CERVICAL LENGTH Imaging Routine Screening, , for anatomic survey Expected: 02/10/2024 (Approximate), Expires: 02/09/2025 [facility] Comment on above: Expected: 02/10/2024 (Approximate), Expires: 02/09/2025 Start: 12-27-2023 Influenza vaccination Influenza Vacc ine (#1) [facility] Start: 10-25-2023 Influenza vaccination Influenza Vacc ine (#1) [facility] Comment on above: Postponed from 12/26 (Patient Refused) Start: 10-25-2023 Screening for malign ant neoplasm of cervix [facility] Start: 07-17-2023 End: 07-17-2023 Patient encounter procedure 07/17/2023 8:00 AM EDT Office Visit [facility] [address] [place] [address] Tori Martinez NP [address] [place] [address] [facility] Start: 2014 Screening for malign ant neoplasm of cervix Pap Smear [facility] CHLAMYDIA TRACHOMATI S (GENITO/STI) CHLAMYDIA TRACHOMATIS (GENITO/STI) Lab Routine Screen for STD (sexually transmitted disease) Vaginal discharge Ordered: 02/10/2024 [facility] Comment on above: Ordered: 02/10/2024 Cytology Cervical or vaginal smear or scraping study Pap Smear Pathology and Cytology Routine Well woman exam with routine gynecological exam Ordered: 02/10/2024 [facility] Comment on above: Ordered: 02/10/2024 Human papilloma viru s DNA [Presence] in Unspecified specimen by Probe with amplification HPV DNA probe, amplified Microbiology Routine Well woman exam with routine gynecological exam Ordered: 02/10/2024 [facility] Comment on above: Ordered: 02/10/2024 Neisseria gonorrhoea e DNA [Presence] in Unspecified specimen by JUAN with probe detection Neisseria gonorrhea DNA probe, direct Lab Routine Screen for STD (sexually transmitted disease) Vaginal discharge Ordered: 02/10/2024 [facility] Comment on above: Ordered: 02/10/2024 SURESWAB(R) ADVANCED VAGINITIS PLUS, TMA SURESWAB(R) ADVANCED VAGINITIS PLUS, TMA Pathology and Cytology Routine Screen for STD (sexually transmitted disease) Vaginal discharge Ordered: 02/10/2024 [facility] Work Phone: Comment on above: Ordered: 02/10/2024 Immunizations Immunization Date Immunization Notes Care Provider Byron carlson 05-05-2015 tetanus toxoid, redu catherine diphtheria toxoid, and acellular pertussis vaccine, adsorbed Tori Warchol WEDDING COORDINATOR Work Phone: [facility] 02-14-2009 influenza, seasonal, injectable Tori Warchol WEDDING COORDINATOR Work Phone: [facility] 02-14-2009 influenza virus vacc ine, unspecified formulation Tori Warchol WEDDING COORDINATOR Work Phone: [facility] 12-12-2005 hepatitis A vaccine, unspecified formulation Tori Warchol WEDDING COORDINATOR Work Phone: [facility] 12-12-2005 tetanus toxoid, redu catherine diphtheria toxoid, and acellular pertussis vaccine, adsorbed Tori Warchol WEDDING COORDINATOR Work Phone: [facility] 11-19-1998 diphtheria, tetanus toxoids and acellular pertussis vaccine, unspecified formulation Tori Warchol WEDDING COORDINATOR Work Phone: [facility] 11-19-1998 measles, mumps and rubella virus vaccine Tori Warchol WEDDING COORDINATOR Work Phone: [facility] 11-19-1998 trivalent poliovirus vaccine, live, oral Tori Warchol WEDDING COORDINATOR Work Phone: [facility] 09-14-1995 diphtheria, tetanus toxoids and acellular pertussis vaccine, unspecified formulation Tori Warchol WEDDING COORDINATOR Work Phone: [facility] 09-14-1995 haemophilus influenz ae type b vaccine, conjugate unspecified formulation Tori Warchol WEDDING COORDINATOR Work Phone: [facility] 11-20-1994 DTP-Haemophilus influenzae type b conjugate vaccine Tori Warchol WEDDING COORDINATOR Work Phone: [facility] 11-20-1994 hepatitis B vaccine, pediatric or pediatric/adolescent dosage Tori Warchol WEDDING COORDINATOR Work Phone: [facility] 11-20-1994 measles, mumps and rubella virus vaccine Tori Warchol WEDDING COORDINATOR Work Phone: [facility] 11-20-1994 trivalent poliovirus vaccine, live, oral Tori Warchol WEDDING COORDINATOR Work Phone: [facility] 09-18-1994 DTP-Haemophilus influenzae type b conjugate vaccine Tori Warchol WEDDING COORDINATOR Work Phone: [facility] 09-18-1994 hepatitis B vaccine, pediatric or pediatric/adolescent dosage Tori Warchol WEDDING COORDINATOR Work Phone: [facility] 09-18-1994 trivalent poliovirus vaccine, live, oral Tori Warchol WEDDING COORDINATOR Work Phone: [facility] 1993 diphtheria, tetanus toxoids and pertussis vaccine Tori Warchol WEDDING COORDINATOR Work Phone: [facility] 1993 haemophilus influenz ae type b vaccine, conjugate unspecified formulation Tori Warchol WEDDING COORDINATOR Work Phone: [facility] 1993 hepatitis B vaccine, pediatric or pediatric/adolescent dosage Tori Warchol WEDDING COORDINATOR Work Phone: [facility] 1993 trivalent poliovirus vaccine, live, oral Tori Warchol WEDDING COORDINATOR Work Phone: [facility] Payers Date Payer Category Payer Medicaid [employer] [place] Member Subscriber Plan / Payer (Effective 2024-Present) Name: Cecelia Johnson Relation to Subscriber: Self Name: Cecelia Johnson Payer ID: Not on file Type: Not on file Address: [place] [id number] 2023 Self-pay [id number] 2022 Blue Cross Blue Shield BCBS Memb er Subscriber Plan / Payer (Effective 2022-Present) Name: Cecelia Johnson Relation to Subscriber: Self Name: Cecelia Johnson Payer ID: Not on file Type: Not on file Address: [address] [place] [id number] 2022 Unknown BCBS BCBS xxxxxx [id number] 2022-Present [phone] [address] [place] [id number] 2017 Private Health Insurance [id number] 1993 Unknown [id number] 2.16.840.1.437849.3.579. 2.176 1993 Unknown [id number] 2.16.840.1.865710.3.579. 2.176 1993 Unknown [id number] 2.16.840.1.942961.3.579. 2.593 1993 Unknown [id number] 2.16.840.1.598342.3.579. 2.593 1993 Unknown [id number] 2.16.840.1.496412.3.579. 2.593 1993 Unknown [id number] 2.16.840.1.374865.3.579. 2.593 1993 Unknown [id number] 2.16.840.1.387392.3.579. 2.593 1993 Unknown [id number] 2.16.840.1.821236.3.579. 2.593 1993 Unknown [id number] 2.16.840.1.251000.3.579. 2.593 1993 Unknown [id number] 2.16.840.1.854633.3.579. 2.593 1993 Unknown [id number] 2.16.840.1.833366.3.579. 2.593 1993 Unknown [id number] 2.16.840.1.711562.3.579. 2.59 1993 Unknown [id number] 2.16.840.1.512172.3.579. 2.593 1993 Unknown [id number] 2.16840.1.832286.3.579. 2.593 1993 Unknown [id number] 2.16840.1.821127.3.579. 2.593 1993 Unknown [id number] 2.16.840.1.787147.3.579. 2.593 1993 Unknown [id number] 2.16.840.1.508192.3.579. 2.125 1993 Unknown [id number] 2.16.840.1.919088.3.579. 2.125 1993 Unknown [id number] 2.16.840.1.136376.3.579. 2.1259 1993 Unknown [id number] 2.16.840.1.358518.3.579. 2.125 1993 Unknown [id number] 2.16.840.1.358438.3.579. 2.1259 1993 Unknown [id number] 2.16.840.1.568193.3.579. 2.1259 1993 Unknown [id number] 2.16.840.1.989021.3.579. 2.1259 1993 Unknown [id number] 2.16.840.1.717979.3.579. 2.1259 1959 Self-pay [id number] 1959 Unknown [id number] 1959 Unknown [id number] 1959 Unknown [id number] Unknown [id number] 2.16.840.1.852119.3.579. 2.593 Unknown HCAP/HFA/FAP Active [id number] Unknown [id number] 2.16.840.1.386891.3.579. 2.531 Social History Date Type Detail Facility Start: 08-27-2016 End: 09-25-2022 Tobacco smoking status PRIS Never smoked tobacco [facility] Start: [...] esophagitis 09/01/2022 Moderate persistent asthma without complication ([facility] 09/01/2022 Hypothyroidism, unspecified ([facility]) 03/02/2020 Moderate asthma ([facility]) 01/11/2024 Resolved Ambulatory Problems Diagnosis Date Noted Acquired hypothyroidism ([facility] 09/01/2022 Allergic rhinitis 09/01/2022 Amenorrhea 09/01/2022 Asthma without status asthmaticus ([facility]) 09/01/2022 Attention deficit hyperactivity disorder ([facility]) 09/01/2022 Asthma affecting , antepartum ([facility]) 09/01/2022 Binge eating disorder 09/01/2022 Difficulty concentrating 09/01/2022 Irregular menstrual cycle 09/01/2022 Left sided sciatica 09/01/2022 Insomnia 09/01/2022 Migraines ([facility]) 09/01/2022 Metallic taste 09/01/2022 Mild persistent asthma without complication ([facility]) 09/01/2022 MTHFR mutation 09/01/2022 Nondependent cannabis abuse 09/01/2022 Other chronic pain 09/01/2022 Seasonal allergies 09/01/2022 Skin sensation disturbance 09/01/2022 Transitory mood disturbance 09/01/2022 Verruca plantaris 09/01/2022 Past Medical History: Diagnosis Date Acid reflux ADHD (attention deficit hyperactivity disorder) ([facility]) Asthma ([facility]) GERD (gastroesophageal reflux disease) Hypothyroid ([facility]) Lactose intolerance Marijuana use Migraine ([facility]) Mild persistent asthma, uncomplicated ([facility]) Supervision of normal Thyroid disease ([facility]) HISTORY PAST MEDICAL HISTORY SOCIAL HISTORY Past Medical History: Diagnosis Date Acid reflux ADHD (attention deficit hyperactivity disorder) ([facility] Asthma ([facility]) Asthma affecting , antepartum ([facility]) GERD (gastroesophageal reflux disease) Hypothyroid ([facility]) Lactose intolerance Marijuana use Migraine ([facility]) Mild persistent asthma, uncomplicated ([facility]) MTHFR mutation Seasonal allergies Supervision of normal Thyroid disease ([facility]) Social History Tobacco Use Smoking status: Never [...] 2008 Plica band removal, left knee arthroscopy ID BREAST REDUCTION 10/2018 TONSILLECTOMY 1998 REVIEW OF [...] Facility Evaluation note No assessment information availa [facility] Work Phone: Evaluation note Note Date & [...] section and content) DATE CREATED AUTHOR 11/18/2018 [facility] DATE CREATED AUTHOR AUTHOR'S ORGANIZ ATION 11/26/2018 [facility] DATE CREATED AUTHOR AUTHOR'S ORGANIZ ATION 09/09/2022 [facility] DATE CREATED AUTHOR AUTHOR'S ORGANIZ ATION 03/12/2024 [facility] EPIC DATE CREATED AUTHOR AUTHOR'S ORGANIZ ATION 03/16/2024 [facility] Reason for Visit (unrecogniz ed section and content) Reason Onset Date Comments Med Refill 06/02/2023 Reason Comments Routine Visit Care Teams (unrecognized sec tion and content) Sales Service Professional Relationship Specialty Start Date End Date Carlos Alberto Coleman MD [address] [place] [address] PCP - General Family Medicine 09/24/22 Tori Martinez NP [address] [place] [address] Nurse Practitioner Family Medicine 09/24/22 Sofie Gr NP [address] [place] [address] Nurse Practitioner Pulmonary Disease 04/14/23 Team Status: Active Member Role Status Dates Carlos Alberto Coleman MD Primary Care Provider Active Team Status: Inactive Member Role Status Dates Carlos Alberto Coleman MD Primary Care Provider Active S tart: July 13, 2023 End: July 13, 2023 Sofie Gr NP-C Attending Provider Active Start: July 13, 2023 End: July 13, 2023 Sales Service Professional Relationship Specialty Start Date End Date Carlos Alberto Coleman MD [address] [place] [address] PCP - General Family Medicine 09/24/22 Tori Martinez NP [address] [place] [address] PCP - [employer] 05/28/23 Tori Martinez NP [address] [place] [phone] Nurse Practitioner Family Medicine 09/24/22 Sofie Gr NP [address] [place] [address] Nurse Practitioner Pulmonary Disease 04/14/23 Sales Service Professional Relationship Specialty Start Date End Date Carlos Alberto Coleman MD [address] [place] [address] PCP - General Family Medicine 09/24/22 Tori Martinez NP [address] [place] [address] PCP - [employer] 05/28/23 Tori Martinez NP [address] [place] [address] Nurse Practitioner Family Medicine 09/24/22 Sofie Gr NP [address] [place] [phone] Nurse Practitioner Pulmonary Disease 04/14/23 Sales Service Professional Relationship Specialty Start Date End Date Carlos Alberto Coleman MD [address] [place] [address] PCP - General Family Medicine 09/24/22 Tori Martinez NP [address] [place] [address] PCP - [employer] 05/28/23 Tori Martinez NP [address] [place] [address] Nurse Practitioner Family Medicine 09/24/22 Sofie Gr NP [address] [place] [phone] Nurse Practitioner Pulmonary Disease 04/14/23 Sales Service Professional Relationship Specialty Start Date End Date Carlos Alberto Coleman MD [address] [place] [address] PCP - General Family Medicine 09/24/22 Tori Martinez NP [address] [place] [address] PCP - [employer] 05/28/23 Tori Martinez NP [address] [place] [address] Nurse Practitioner Family Medicine 09/24/22 Sofie Gr NP [address] [place] [address] Nurse Practitioner Pulmonary Disease 04/14/23 Goals (unrecognized [...] BE BASED ON THE PRIMARY CLINICAL RECORDS. [employer] [facility]. provides no warranty or guarantee of the accuracy or completeness of information in this document.
[2024-03-19 09:28] LABS: Basophils Percent Auto 0.2 % (0.2-2.0); Eosinophils Absolute Auto 0.1 10^3/uL (0.0-0.7); Eosinophils Percent Auto 0.7 % (0.9-7.0); Hematocrit 35.3 % (36.0-48.0); Hemoglobin 11.8 g/dL (12.0-16.0); Immature Granulocytes Abs Auto 0.04 10^3/uL (0.00-0.03); Immature Granulocytes Pct Auto 0.5 % (0.0-0.5); Lymphocytes Absolute Auto 1.5 10^3/uL (1.2-3.8); Lymphocytes Percent Auto 17.1 % (20.5-60.0); Mean Corpuscular HGB Conc 33.4 g/dL (29.9-35.2); Mean Corpuscular Hemoglobin 31.1 pg (26.7-34.0); Mean Corpuscular Volume 93.1 fL (81.0-99.0); Mean Platelet Volume 10.6 fL (9.5-13.5); Monocytes Absolute Auto 0.6 10^3/uL (0.3-0.8); Monocytes Percent Auto 7.2 % (1.7-12.0); Neutrophils Absolute Auto 6.5 10^3/uL (1.4-6.5); Neutrophils Percent Auto 74.3 % (43.0-75.0); Platelet Count 178 10^3/uL (150-450); Red Blood Count 3.79 10^6/uL (4.20-5.40); Red Cell Distribution Width 12.3 % (11.0-15.0); White Blood Count 8.8 10^3/uL (4.0-11.0)
[2024-03-19 10:07] LABS: Glucose 1 Hour 137 mg/dL (<130)
== END 2024-03-19 08:16 | disposition home or self-care (01) ==
LOC: LAB 08:16
PROVIDERS: PCP Family Medicine; Visit Provider Physician Assistant
DX: O99.282 Endocrine, nutritional and metabolic diseases complicating pregnancy, second trimester (principal); E03.8 Other specified hypothyroidism; Z13.1 Encounter for screening for diabetes mellitus
CPT/HCPCS: 36415; 82950; 84443; 85025

== ENCOUNTER 2024-03-23 19:06 | Outpatient (OUT) | payer BC, MEDICAID, SELFPAY ==
--- OUTSIDE RECORDS SUMMARY | 2024-03-23 19:10 | XMS_ITS | CCD ---
Author Organization [facility] Care Team Providers Care Word Processor Operator Name Role Phone RENEE, MODE R Referring Unavailable COLEMAN, CARLOS ALBERTO [...] ÁNGEL Attending Unavailable KIEPERT, ÁNGEL Admitting Unavailable LEWISTON, DR DEANNA Lance Consulting Unavailable PAY ., DR JARRELL Attending Unavailable PAY ., DR JARRELL Admitting Unavailable KIEPERT, ÁNGEL Primary Care Unavailable PAY ., DR JARRELL Consulting Unavailable AFSHIN ., TORI Consulting Unavailable KARASIK ., DR ZALDIVAR Consulting Unavailabl e KIEPERT, ÁGNEL Primary Care Unavailable KARASIK ., DR ZALDIVAR [...] ZALDIVAR Admitting Unavailabl e KARASIK ., DR ZALDIVRA Consulting Unavailabl e KIEPERT, ÁNGEL Primary Care Unavailable KARASIK ., DR ZALDIVAR Attending Unavailabl e KARASIK ., DR ZALDIVAR Admitting Unavailabl e NNAMDI ., DR HOUSE Consulting Unavailable KIEPERT, ÁNGEL Primary Care Unavailable NNAMDI ., DR HOUSE Attending Unavailable NNAMDI ., DR HOUSE Admitting Unavailable KARASIK ., DR ZALDIVAR Consulting Unavailabl e KIEPERT, ÁNEGL Primary Care Unavailable KARASIK ., DR ZALDIVAR [...] Carlos Alberto Coleman MD Primary Care Provider Kylee CEMENT MASON HELPER, Tori Unavailable Maile CEMENT MASON HELPER, Sofie R Unavailable [phone] MD Carlos Alberto Coleman Primary Care Provider HEATHER Gr Attending Provider Maile CEMENT MASON HELPER, Sofie R Unavailable Kylee CEMENT MASON HELPER, Otri Unavailable SOFIE GR Attending Unavailable JASONCHOL, TORI Attending Unavailable JASONCHOL, TORI Attending Unavailable NNAMDI, HERBER Attending Unavailable NNAMDI, HERBER Attending Unavailable TORI MARTINEZ Attending Unavailable TORI PEPE Attending Unavailable Sofie Gr Attending Unavailable Sofie Gr Admitting Unavailable Carlos Alberto Coleman Primary Care Unavailable Allergies Allergy Classification Reported Allergen(s) Allergy Type Date of Onset Reaction(s) Facility (1 source) Cefuroxime Drug Allergy 04-04-20 22 [facility] (2 sources) Ciprofloxacin Drug Allergy 04-03-20 16 [facility] (2 sources) Doxycycline Drug Allergy 05-20-19 21 vomiting [facility] (1 source) Flupenthixol Drug Allergy 04-04-20 22 [facility] (10 sources) Cefuroxime Drug Allergy 05-20-19 21 Rash [facility] (9 sources) Ciprofloxacin Drug Allergy 09-02-19 23 Shortness of breath [facility] (9 sources) Ciprofloxacin Drug Allergy 09-02-19 23 Shortness of breath [facility] (9 sources) cloNIDine Drug Allergy 03-14-20 21 [facility] (9 sources) cloNIDine Drug Allergy 09-02-19 23 [facility] (9 sources) Doxycycline Drug Allergy 05-20-19 21 GI intolerance [facility] (9 sources) Gluten Propensity to adverse reactions 11-11-19 19 [facility] (9 sources) Lactose (non-medical use) Allergy to substance 09-02-19 23 [facility] (9 sources) Lactose (non-medical use) Drug Intolerance 11-11-19 19 [facility] (9 sources) Octacosanol Drug Intolerance 11-11-19 19 [facility] (9 sources) Other Allergy to substance 11-11-19 19 [facility] (9 sources) Silver Allergy to substance 09-02-19 23 [facility] (9 sources) Wound Dressing Adhesive Drug Allergy 09-02-19 23 [facility] (1 source) Cefuroxime Drug Allergy 05-20-19 21 [facility] (1 source) Ciprofloxacin Drug Allergy 05-20-19 21 [facility] (1 source) Doxycycline Drug Allergy 05-20-19 21 [facility] Medications Current Medications Medication Drug Class(es) Dates Sig (Normalized) Sig (Original) [id number] 200 actuat albuterol 0.09 mg/actuat metered dose inhaler (9 sources) beta2-Adrenergic [...] sulfate 5 mg extended release oral capsule (17 sources) Central Nervous System Stimulant Start: 10-23-2023 [...] Discontinued (Reorder) azithromycin 250 mg oral tablet (8 sources) Macrolide Antimicrobial Start: 01-26-2024 azithromycin (Zithromax Z-Darvin) 250 MG tablet Indications: Upper respiratory tract infection, unspecified type As directed 6 tablet 01/26/2024 Active calcium citrate 1190 mg / cholecalciferol 0.005 mg oral tablet (9 sources) Vitamin D Calcium Citrate-Vitamin D (Calcium Citrate + D3) 250-200 MG-UNIT tablet Calcium Citrate + D3 Active citalopram 10 mg oral tablet (3 sources) Serotonin Reuptake Inhibitor Start: 03-10-2024 End: 03-10-2025 take 1 tablet by mouth once daily citalopram (CeleXA) 10 MG tablet Indications: Anxiety, generalized (CMS/HCC) Take 1 tablet (10 mg) by mouth Daily 30 tablet 11 03/10/2024 03/10/2025 Active famotidine 20 mg oral tablet (9 sources) Histamine-2 Receptor Antagonist Start: 10-16-2023 End: [...] Active fexofenadine hydrochloride 180 mg oral tablet (9 sources) Histamine-1 Receptor Antagonist take 1 tablet [...] Active folic acid 1 mg oral tablet (8 sources) Start: End: take 1 tablet by mouth once daily folic acid (Folvite) 1 MG tablet Indications: Second trimester Take 1 tablet (1 mg) by mouth Daily 30 tablet 6 01/18/2024 01/17/2025 Active ibuprofen 600 mg oral tablet (9 sources) Nonsteroidal Anti-inflammatory Drug ibuprofen 600 MG tablet Take 600 mg by mouth. Active lactase 9000 unt oral tablet (9 sources) lactase 9000 uni ts tablet Take 9,000 Units by mouth. Active lansoprazole 30 mg delayed release oral capsule (9 sources) Proton Pump Inhibitor Start: End: take [...] actuat levalbuterol 0.045 mg/actuat metered dose inhaler (17 sources) beta2-Adrenergic Agonist Start: 10-16-2023 leval buterol (Xopenex) 1.25 MG/3ML nebulizer solution Indications: Moderate persistent asthma without complication (CMS/HCC) Take 1 ampule by nebulization every 6 (six) hours if needed for shortness of breath 72 mL 1 10/16/2023 Active Start: 10-16-2023 End: 09-07-2024 take 1 puff(s) by inhalation every four hours for wheezing levalbuterol (Xopenex) 45 MCG/ACT inhaler Indications: Moderate persistent asthma without complication (CMS/HCC) Inhale 1 puff every 4 (four) hours if needed for wheezing 15 g 5 03/11/2024 09/07/2024 Active Start: 04-16-2023 End: 07-15-2023 levalbuterol (Xopenex) [...] Active levothyroxine sodium 0.088 mg oral tablet (9 sources) l-Thyroxine Start: 10-16-2023 End: 04-13-2024 take [...] Active loperamide hydrochloride 2 mg oral capsule (9 sources) Opioid Agonist loperamide (Imod ium) 2 MG capsule Take 2 mg by mouth. Active montelukast 10 mg oral tablet (9 sources) Leukotriene Receptor Antagonist Start: 10-16-19 End: [...] 90 tablet 1 04/16/2023 10/13/2023 Active Naproxen (9 sources) Nonsteroidal Anti-inflammatory Drug take 2 tablets [...] 02/10/2024 Active ubrogepant 100 mg oral tablet (8 sources) Start: 04-24-2023 Ubrelvy 100 MG tablet 04/24/2023 Active Completed/Discontinued Medications Medication Drug Class(es) Dates Sig (Normalized) Sig (Original) magnesium oxide 400 mg oral tablet (6 sources) Start: 02-10-2024 End: 03-11-2024 take 1 tablet by mouth once daily magnesium oxide (Mag-Ox) 400 MG tablet Indications: headache in second trimester Take 1 tablet (400 mg) by mouth Daily 30 tablet 6 02/10/2024 03/11/2024 Problems Active Problems Problem Classification Problem Date Documented Date Episodic/Chronic Anxiety disorders (11 sources) Anxiety; Translations: [Anxiety disorder, unspecified] Onset: 09-01-2022 09-01-2022 Chronic Asthma (20 sources) Uncomplicated moderate persistent asthma; Translations: [Moderate persistent asthma, uncomplicated] Onset: 09-01-2022 Resolved: 11-13-2022 09-01-2022 Chronic Attention-deficit, conduct, and disruptive behavior disorders (1 source) Attention deficit hyperactivity disorder, combined type; Translations: [Attention-deficit hyperactivity disorder, combined type] 06-02-2023 Chronic Esophageal disorders (9 sources) Gastroesophageal reflux disease without esophagitis; Translations: [...] vagina] 02-10-2024 Episodic Other nervous system disorders (9 sources) Chronic pain; Translations: [Other chronic pain] Onset: 09-01-2022 Resolved: 11-13-2022 11-13-2022 Chronic Other and delivery including normal (20 sources) Encounter for care and examination of lactating mother; Translations: [Encounter for routine follow-up] Onset: 12-14-2021 Episodic Other screening for suspected conditions (not mental disorders or infectious disease) (16 sources) Encounter for screening for Streptococcus B; Translations: [Encounter for other specified screening] Onset: 12-17-2021 Episodic Residual codes; unclassified (1 source) 39 weeks gestation of ; Translations: [39 WEEKS GESTATION OF ] Onset: 06-30-2022 Episodic Residual codes; unclassified (2 sources) Gestation period, 19 weeks; Translations: [19 weeks gestation of ] 02-10-2024 Episodic Residual codes; unclassified (2 sources) Gestation period, 23 weeks; Translations: [23 weeks gestation of ] 03-09-2024 Episodic Thyroid disorders (20 sources) Hypothyroidism, unspecified; Translations: [Hypothyroidism] Onset: 03-02-2020 Resolved: 11-13-2022 Chronic Unclassified (1 source) Cough, unspecified; Translations: [Cough, unspecified] Onset: 07-13-2023 Viral infection (1 source) COVID-19; Translations: [COVID-19] Onset: 04-08-2022 Past or Other Problems Problem Classification Problem Date Documented Date Episodic/Chronic Attention-deficit, conduct, and disruptive behavior disorders (9 sources) Attention deficit hyperactivity disorder; Translations: [Attention-deficit hyperactivity disorder, unspecified type] Onset: 09-01-2022 Resolved: 11-13-2022 11-13-2022 Chronic Diabetes or abnormal glucose tolerance complicating ; childbirth; or the puerperium (4 sources) Abnormal glucose complicating ; Translations: [ABNORMAL GLUCOSE COMP ] Onset: 04-16-2022 Episodic Headache; including migraine (9 sources) Migraine; Translations: [Migraine, unspecified, not intractable, without status migrainosus] Onset: 09-01-2022 Resolved: 11-13-2022 11-13-2022 Chronic Menstrual disorders (20 sources) Irregular menstruation, unspecified; Translations: [Amenorrhea] Onset: 12-14-2021 Resolved: 11-13-2022 Chronic Miscellaneous mental health disorders (9 sources) Binge eating disorder; Translations: [Binge eating disorder] Onset: 09-01-2022 Resolved: 11-13-2022 11-13-2022 Chronic Miscellaneous mental health disorders (9 sources) Transitory mood disturbance; Translations: [ mood [...] TRI] Onset: 11-30-2021 Episodic Other complications of (9 sources) Asthma in ; Translations: [Diseases of the respiratory system complicating , unspecified trimester] Onset: 09-01-2022 Resolved: 11-13-2022 11-13-2022 Episodic Other nervous system disorders (9 sources) Poor concentration; Translations: [Attention and concentration deficit] Onset: 09-01-2022 Resolved: 11-13-2022 11-13-2022 Chronic Other nervous system disorders (9 sources) Metallic taste; Translations: [Other disturbances of smell and taste] Onset: 09-01-2022 Resolved: 11-13-2022 11-13-2022 Episodic Other nervous system disorders (9 sources) Skin sensation disturbance; Translations: [Unspecified disturbances of skin sensation] Onset: 09-01-2022 Resolved: 11-13-2022 11-13-2022 Episodic Other upper respiratory disease (9 sources) Allergic rhinitis; Translations: [Allergic rhinitis, unspecified] Onset: 09-01-2022 Resolved: 11-13-2022 11-13-2022 Chronic Other upper respiratory disease (9 sources) Seasonal allergy; Translations: [Other seasonal allergic [...] ] Onset: 11-30-2021 Episodic Residual codes; unclassified (9 sources) Insomnia; Translations: [Insomnia, unspecified] Onset: 09-01-2022 Resolved: 11-13-2022 11-13-2022 Episodic Residual codes; unclassified (9 sources) Hereditary disorder of endocrine system; Translations: [Genetic susceptibility to other disease] Onset: 09-01-2022 Resolved: 11-13-2022 11-13-2022 Episodic Spondylosis; intervertebral disc disorders; other back problems (9 sources) Sciatica; Translations: [Sciatica, left side] Onset: 09-01-2022 Resolved: 11-13-2022 11-13-2022 Episodic Substance-related disorders (9 sources) Nondependent cannabis abuse ; Translations: [Cannabis abuse, uncomplicated] Onset: 09-01-2022 Resolved: 11-13-2022 11-13-2022 Chronic Viral infection (9 sources) Verruca plantaris; Translations: [Plantar wart] Onset: 09-01-2022 Resolved: 11-13-2022 11-13-2022 Episodic Results Test Name Value Interpretation Reference Range Facility ALL CBC WITH AUTO DIFFon BASOPHILS ABSOLUTE AUTO 0 [facility] Basophils/100 WBC (Bld) 0.2 % 0.2 - 2.0 % [facility] Eosinophils/100 WBC (Bld) 0.7 % Low 0.9 - 7.0 % [facility] Erythrocyte distribution width (RBC) [Ratio] 12.3 % 11.0 - 15.0 % [facility] Hematocrit (Bld) [Volume fraction] 35.3 % Low 36.0 - 48.0 % [facility] Hemoglobin (Bld) [Mass/Vol] 11.8 g/dL Low 12.0 - 16.0 g/dL [facility] IMMATURE GRANULOCYTES ABS AUTO 0.04 High [facility] Immature granulocytes/100 WBC (Bld) 0.5 % 0.0 - 0.5 % [facility] Interpretation and review of laboratory results Abnormal [facility] LYMPHOCYTES ABSOLUTE AUTO 1.5 [facility] Lymphocytes/100 WBC (Bld) 17.1 % Low 20.5 - 60.0 % [facility] MCH (RBC) [Entitic mass] 31.1 pg 26.7 - 34.0 pg [facility] MCHC (RBC) [Mass/Vol] 33.4 g/dL 29.9 - 35.2 g/dL [facility] MCV (RBC) [Entitic vol] 93.1 fL 81.0 - 99.0 fL [facility] MONOCYTES ABSOLUTE AUTO 0.6 [facility] Monocytes/100 WBC (Bld) 7.2 % 1.7 - 12.0 % [facility] NEUTROPHILS ABSOLUTE AUTO 6.5 [facility] Neutrophils/100 WBC (Bld) 74.3 % 43.0 - 75.0 % [facility] Platelet mean volume (Bld) [Entitic vol] 10.6 fL 9.5 - 13.5 fL [facility] TBH EO # 0.1 [facility] PLT 178 [facility] RBC 3.79 Low [facility] WBC 8.8 [facility] IGP,APTIMA HPV,AGE GDLNon AGE GDLN ACOG TESTING Note . [facility] Comment on above: TESTS RESULT FLAG UN ITS REF RANGE LAB Clinician Provided Cytology Information Source.............Cervix No. of containers..01 ThinPrep Vial Age Algo ACOG Sonja... FLAG LEGEND: L-Low Normal,H-High Normal,LL-Alert Low,HH-Alert High <-Panic Low,>-Panic High,A-Abnormal,AA-Critical Abnormal Performed at: 01 =[address] [id number] Radha Browne MD, HPV APTIMA Negative Negative [facility] Comment on above: This nucleic acid am plification test detects fourteen high- risk HPV types (16,18,31,33,35,39,45,51,52,56,58,59,66,68) without differentiation. Performed at: =[address] [id number] Manufacturing Operations Manager: Radha Browne MD, Phone: [phone] Performed at: [address] [id number] Manufacturing Operations Manager: Radha Browne MD, Phone: [phone] IGP, APTIMA HPV, RFX 16/18,45 Note . [facility] Comment on above: TESTS RESULT FLAG U NITS REF RANGE LAB DIAGNOSIS: 02 NEGATIVE FOR INTRAEPITHELIAL LESION OR MALIGNANCY. Specimen adequacy: 02 Satisfactory for evaluation. No endocervical component is identified. Performed by: 02 Danie Vargas, Pricing Director (ASCP) . 02 Note: Note 02 The [...] Low,>-Panic High,A-Abnormal,AA-Critical Abnormal Performed at: [address] [facility] [id number] Radha Browne MD, SPATULA-ALONE CERVIX [facility] Cytology Cervical or vaginal smear or scraping studyon 02-10-2024 [facility] Urinalysis macro (dipstick) panel (U)on 02-10-2024 Bilirubin, UA Negative Negative - 4(70) +++ mg/dL [facility] Blood, UA Negative Negative - 50 Mendel/mcL [facility] Clarity, UA Clear [facility] Color, UA Yellow [facility] Glucose, UA Negative Negative - 1999(110) ++++ mg/dL [facility] Interpretation and review of laboratory results Abnormal [facility] Ketones, UA Negative Negative - 160(16) ++++ mg/dL [facility] Leukocytes, UA Trace Negative - 500+++ Leighann/mcL [facility] Nitrite, UA Negative Negative - Positive [facility] pH, UA 7 5 - 9 [facility] Protein, UA Negative Negative - 1999(20) ++++ mg/dL [facility] Spec Grav, UA 1.02 1 - 1.03 [facility] Urobilinogen, UA 0.2 0.2 - 12 mg/dL [facility] BioFire Not Detectedon 07-12 BioFire Not Detected Not detected Normal Not Detecte Maira flaherty [facility] Comment on above: Result Comment: This is a duplicate RP2.1 COVID (PCR) result to be used for statistical tracking purpose only. PERFORMED BY: [place] [address] PATHOLOGIST GLASS GRINDER CATY NEELY M.D. Performed By: #### R RODGER PANEL UPP., BIOFIRECOVNOTDE #### [address] COVID-19 Detected/Not Detect edOrdered By: Sofie Gr on 07-13-2023 SARS-CoV-2 (COVID-19) RNA JUAN+non-probe Ql (Nph) Not detected Not Detecte [facility] Comment on above: This is a [...] Influenza A H3 Blank Space PERFORMED BY: [address] [place] [address] PATHOLOGIST GLASS GRINDER CATY NEELY M.D. Normal [facility] Comment on above: Performed By: #### R RODGER PANEL UPP., BIOFIRECOVNOTDE #### [facility] [address] Respiratory pathogens DNA an d RNA panel - Nasopharynx by JUAN with non-probe detectionOrdered By: Sofie Gr on 07-13-2023 Respiratory pathogens DNA and RNA panel JUAN+non-probe (Nph) [facility] CBC AUTO DIFFon 06-25-2022 BASO # 0.0 103/ul Normal 0.0-0.1 [facility] Comment on above: Performed By: #### C BC #### [facility] [address] [address] [address] Garland Kohli Basophils/100 WBC (Bld) 0.4 % Normal 0.2-2.0 [facility] Comment on above: Performed By: #### C BC #### [facility] [address] [address] [address] Garland Kohli EO # 0.1 103/ul Normal 0.0-0.7 [facility] Comment on above: Performed By: #### C BC #### [facility] [address] [address] [address] Garland Kohli Eosinophils/100 WBC (Bld) 0.9 % Normal 0.9-7.0 [facility] Comment on above: Performed By: #### C BC #### [facility] [address] [address] [address] Garland Kohli Erythrocyte distribution width (RBC) [Ratio] 12.4 % Normal 11.0-15.0 [facility] Comment on above: Performed By: #### C BC #### [facility] [address] [address] [address] Garland Kohli Hematocrit (Bld) [Volume fraction] 31.4 % Critically low 36.0-48.0 [facility] Comment on above: Performed By: #### C BC #### [facility] [address] [place] [address] Dr. Garland Kohli Hemoglobin (Bld) [Mass/Vol] 10.4 g/dL Critically low 12.0-16.0 [facility] Comment on above: Performed By: #### C BC #### [facility] [address] [place] [address] Dr. Garland Kohli IG # 0.04 10e3/ul Critically high 0.00-0.03 [facility] Comment on above: Performed By: #### C BC #### [facility] [address] [place] [address] Dr. Garland Kohli IG % 0.4 % Normal 0.0-0.5 [facility] Comment on above: Performed By: #### C BC #### [facility] [address] [place] [address] Dr. Garland Kohli LYMPH # 2.0 103/ul Normal 1.2-3.8 [facility] Comment on above: Performed By: #### C BC #### [facility] [address] [place] [address] Dr. Garland Kohli Lymphocytes/100 WBC (Bld) 22.1 % Normal 20.5-60.0 [facility] Comment on above: Performed By: #### C BC #### [facility] [address] [place] [address] Dr. Garland Kohli MANUAL DIFF REQ NO Normal [facility] Comment on above: Performed By: #### C BC #### [facility] [address] [place] [address] Dr. Garland Kohli MCH (RBC) [Entitic mass] 30.1 pg Normal 26.7-34.0 [facility] Comment on above: Performed By: #### C BC #### [facility] [address] [place] [address] Dr. Garland Kohli MCHC (RBC) [Mass/Vol] 33.1 g/dL Normal 29.9-35.2 [facility] Comment on above: Performed By: #### C BC #### [facility] [address] [place] [address] Dr. Garland Kohli MCV (RBC) [Entitic vol] 91.0 fL Normal 81.0-99.0 [facility] Comment on above: Performed By: #### C BC #### [facility] [address] [place] [address] Dr. Garland Kohli MONO # 0.8 103/ul Normal 0.3-0.8 [facility] Comment on above: Performed By: #### C BC #### [facility] [address] [address] [address] Garland Kohli Monocytes/100 WBC (Bld) 8.8 % Normal 1.7-12.0 [facility] Comment on above: Performed By: #### C BC #### [facility] [address] [place] [address] Dr. Garland Kohli NEUT # 6.0 103/ul Normal 1.4-6.5 [facility] Comment on above: Performed By: #### C BC #### [facility] [address] [place] [address] Dr. Garland Kohli Neutrophils/100 WBC (Bld) 67.4 % Normal 43.0-75.0 [facility] Comment on above: Performed By: #### C BC #### [facility] [address] [place] [address] Dr. Garland Kohli Platelet mean volume (Bld) [Entitic vol] 12.0 fL Normal 9.5-13.5 [facility] Comment on above: Performed By: #### C BC #### [facility] [address] [place] [address] Dr. Garland Kohli PLT 151 103/ul Normal 150-450 [facility] Comment on above: Performed By: #### C BC #### [facility] [address] [place] [address] Dr. Garland Kohli RBC 3.45 106/ul Critically low 4.20-5.40 [facility] Comment on above: Performed By: #### C BC #### [facility] [address] [place] [address] Dr. Garland Kohli WBC 8.9 103/ul Normal 4.0-11.0 [facility] Comment on above: Performed By: #### C BC #### [facility] [address] [place] [address] Dr. Garland Kohli CBC AUTO DIFFon 06-23-2022 BASO # 0.0 103/ul Normal 0.0-0.1 [facility] Comment on above: Performed By: #### C BC #### [facility] [facility] [address] [place] [address] Dr. Garland Kohli Basophils/100 WBC (Bld) 0.4 % Normal 0.2-2.0 [facility] Comment on above: Performed By: #### C BC #### [facility] [address] [place] [address] Dr. Garland Kohli EO # 0.1 103/ul Normal 0.0-0.7 [facility] [place] Comment on above: Performed By: #### C BC #### [facility] [address] [place] [address] Dr. Garland Kohli Eosinophils/100 WBC (Bld) 0.8 % Critically low 0.9-7.0 [facility] [place] Comment on above: Performed By: #### C BC #### [facility] [address] [place] [address] Dr. Garland Kohli Erythrocyte distribution width (RBC) [Ratio] 12.4 % Normal 11.0-15.0 [facility] [place] Comment on above: Performed By: #### C BC #### [facility] [address] [place] [address] Dr. Garland Kohli Hematocrit (Bld) [Volume fraction] 34.5 % Critically low 36.0-48.0 [facility] [place] Comment on above: Performed By: #### C BC #### [facility] [address] [place] [address] Dr. Garland Kohli Hemoglobin (Bld) [Mass/Vol] 11.6 g/dL Critically low 12.0-16.0 [facility] [place] Comment on above: Performed By: #### C BC #### [facility] [address] [place] [address] Dr. Garland Kohli IG # 0.04 10e3/ul Critically high 0.00-0.03 [facility] Comment on above: Performed By: #### C BC #### [facility] [address] [place] [address] Dr. Garland Kohli IG % 0.5 % Normal 0.0-0.5 [facility] [place] Comment on above: Performed By: #### C BC #### [facility] [address] [place] [address] Dr. Garland Kohli LYMPH # 1.3 103/ul Normal 1.2-3.8 [facility] [place] Comment on above: Performed By: #### C BC #### [facility] [address] [place] [address] Dr. Garland Kohli Lymphocytes/100 WBC (Bld) 17.6 % Critically low 20.5-60.0 [facility] [place] Comment on above: Performed By: #### C BC #### [facility] [address] [place] [address] Dr. Garland Kohli MANUAL DIFF REQ NO Normal [facility] Comment on above: Performed By: #### C BC #### [facility] [address] [place] [address] Dr. Garland Kohli MCH (RBC) [Entitic mass] 29.6 pg Normal 26.7-34.0 [facility] [place] Comment on above: Performed By: #### C BC #### [facility] [address] [place] [address] Dr. Garland Kohli MCHC (RBC) [Mass/Vol] 33.6 g/dL Normal 29.9-35.2 [facility] [place] Comment on above: Performed By: #### C BC #### [facility] [address] [place] [address] Dr. Garland Kohli MCV (RBC) [Entitic vol] 88.0 fL Normal 81.0-99.0 [facility] [place] Comment on above: Performed By: #### C BC #### [facility] [address] [place] [address] Dr. Garland Kohli MONO # 0.9 103/ul Critically high 0.3-0.8 [facility] Comment on above: Performed By: #### C BC #### [facility] [address] [place] [address] Dr. Garladn Kohli Monocytes/100 WBC (Bld) 11.7 % Normal 1.7-12.0 [facility] [place] Comment on above: Performed By: #### C BC #### [facility] [address] [place] [address] Dr. Garland Kohli NEUT # 5.1 103/ul Normal 1.4-6.5 [facility] [place] Comment on above: Performed By: #### C BC #### [facility] [address] [place] [address] Dr. Garland Kohli Neutrophils/100 WBC (Bld) 69.0 % Normal 43.0-75.0 [facility] [place] Comment on above: Performed By: #### C BC #### [facility] [address] [place] [address] Dr. Garland Kohli Platelet mean volume (Bld) [Entitic vol] 12.1 fL Normal 9.5-13.5 [facility] [place] Comment on above: Performed By: #### C BC #### [facility] [address] [place] [address] Dr. Garland Kohli PLT 193 103/ul Normal 150-450 [facility] Comment on above: Performed By: #### C BC #### [facility] [address] [place] [address] Dr. Garland Kohli RBC 3.92 106/ul Critically low 4.20-5.40 [facility] Comment on above: Performed By: #### C BC #### [facility] [address] [place] [address] Dr. Garland Kohli WBC 7.4 103/ul Normal 4.0-11.0 [facility] Comment on above: Performed By: #### C BC #### [facility] [address] [place] [address] Dr. Garland Kohli DRUG SCREEN RAPID (URINE)on 06-23-2022 AMP Negative Normal NEGATIVE [facility] Comment on above: Performed By: #### D RUGRPD #### [facility] [address] [place] [address] Dr. Garland Kohli BAR Negative Normal NEGATIVE [facility] [place] Comment on above: Performed By: #### D RUGRPD #### [facility] [address] [place] [address] Dr. Garland Kohli BUP Negative Normal NEGATIVE [facility] Comment on above: Performed By: #### D RUGRPD #### [facility] [address] [place] [address] Dr. Garland Kohli BZO Negative Normal NEGATIVE [facility] [place] Comment on above: Performed By: #### D RUGRPD #### [facility] [address] [place] [address] Dr. Garland Kohli JUANI Negative Normal NEGATIVE [facility] [place] Comment on above: Performed By: #### D RUGRPD #### [facility] [address] [place] [address] Dr. Garland Kohli CUT-OFFS SEE BELOW Normal [facility] Comment on above: Result Comment: AMP (Amphetamine): 500ng/mL, BAR (Barbituates): 200 ng/mL, BZO (Benzodiazepines): 150 ng/mL, BUP (Buprenorphine): 10 ng/mL, JUANI (Cocaine): 150 ng/mL, mAMP (Methamphetamine): 500 ng/mL, MTD (Methadone): 200 ng/mL, OPI (Opiates): 100 ng/mL, OXY (Oxycodone): 100 ng/mL, PCP (Phencyclidine): 25 ng/mL, PPX (Propoxyphene): 300 ng/mL, THC (Cannabinoids): 50 ng/mL, TCA (Trycyclic Antidepressants): 300 ng/mL Performed By: #### D RUGRPD #### [facility] [address] [place] [address] Dr. Garland Kohli DRUG CUT HEADER DRUG CLASS TEST SYSTEM CUT-OFF CONCENTRATIONS ARE FOLLOWS: Normal [facility] [place] Comment on above: Performed By: #### D RUGRPD #### [facility] [address] [place] [address] Dr. Garland Kohli mAMP Negative Normal NEGATIVE [facility] Comment on above: Performed By: #### D RUGRPD #### [facility] [address] [address] [address] Garland Kohli MTD Negative Normal NEGATIVE [facility] [place] Comment on above: Performed By: #### D RUGRPD #### [facility] [address] [place] [address] Dr. Garland Kohli OPI Negative Normal NEGATIVE [facility] [place] Comment on above: Performed By: #### D RUGRPD #### [facility] [address] [place] [address] Dr. Garland Kohli OXY Negative Normal NEGATIVE [facility] [place] Comment on above: Performed By: #### D RUGRPD #### [facility] [address] [place] [address] Dr. Garland Kohli PCP Negative Normal NEGATIVE [facility] [place] Comment on above: Performed By: #### D RUGRPD #### [facility] [address] [place] [address] Dr. Garland Kohli PPX Negative Normal NEGATIVE [facility] [place] Comment on above: Performed By: #### D RUGRPD #### [facility] [address] [address] [address] Garland Kohli TCA Negative Normal NEGATIVE [facility] [place] Comment on above: Performed By: #### D RUGRPD #### [facility] [address] [place] [address] Dr. Garland Kohli THC Negative Normal NEGATIVE [facility] [place] Comment on above: Performed By: #### D RUGRPD #### [facility] [address] [place] [address] Dr. Garland Kohli TYPE AND SCREENon 06-23-2022 TYPE AND SCREEN Negative Normal [facility] Comment on above: Performed By: #### T NS #### [facility] [address] [place] [address] Dr. Garland Kohli FREE T4on 06-07-2022 Free T4 [Mass/Vol] 0.76 ng/dL Normal 0.76-1.46 [facility] Comment on above: Performed By: #### C BC #### [facility] [address] [place] [address] Dr. Garland Kohli TSHon 06-07-2022 TSH 1.393 uIU/mL Normal 0.358-3.740 [facility] Comment on above: Performed By: #### T SH #### [facility] [address] [place] [address] Dr. Garland Kohli GROUP B STREP CULTUREon S. agalactiae Ag Ql (Unsp spec) Culture Observations: NEGATIVE FOR GROUP B STREPTOCOCCUS. Normal [facility] Comment on above: Performed By: #### C BC #### [facility] [address] [place] [address] Dr. Garland Kohli GTT 3 HR PREGon 04-16-2022 Glucose [Mass/Vol] 87 mg/dL Normal 74-106 [facility] Comment on above: Performed By: #### G TT3P #### [facility] [address] [place] [address] Dr. Garland Kohli Glucose [Mass/Vol] 148 mg/dL Normal [facility] Comment on above: Performed By: #### G TT3P #### [facility] [address] [place] [address] Dr. Garland Kohli Glucose [Mass/Vol] 128 mg/dL Normal [facility] Comment on above: Performed By: #### G TT3P #### [facility] [address] [place] [address] Dr. Garland Kohli Glucose [Mass/Vol] 105 mg/dL Normal [facility] Comment on above: Performed By: #### G TT3P #### [facility] [address] [place] [address] Dr. Garland Kohli CBC AUTO DIFFon 04-04-2022 BASO # 0.0 103/ul Normal 0.0-0.1 [facility] Comment on above: Performed By: #### G TT3P #### [facility] [address] [place] [address] Dr. Garland Kohli Basophils/100 WBC (Bld) 0.2 % Normal 0.2-2.0 [facility] [place] Comment on above: Performed By: #### G TT3P #### [facility] [address] [address] [address] Garland Kohli EO # 0.0 103/ul Normal 0.0-0.7 [facility] [place] Comment on above: Performed By: #### G TT3P #### [facility] [address] [place] [address] Dr. Garland Kohli Eosinophils/100 WBC (Bld) 0.4 % Critically low 0.9-7.0 [facility] [place] Comment on above: Performed By: #### G TT3P #### [facility] [address] [address] [address] Garland Kohli Erythrocyte distribution width (RBC) [Ratio] 12.9 % Normal 11.0-15.0 [facility] [place] Comment on above: Performed By: #### G TT3P #### [facility] [address] [place] [address] Dr. Garland Kohli Hematocrit (Bld) [Volume fraction] 32.5 % Critically low 36.0-48.0 [facility] Comment on above: Performed By: #### G TT3P #### [facility] [address] [place] [address] Dr. Garland Kohli Hemoglobin (Bld) [Mass/Vol] 11.2 g/dL Critically low 12.0-16.0 [facility] [place] Comment on above: Performed By: #### G TT3P #### [facility] [address] [place] [address] Dr. Garland Kohli IG # 0.07 10e3/ul Critically high 0.00-0.03 [facility] Comment on above: Performed By: #### G TT3P #### [facility] [address] [place] [address] Dr. Garland Kohli IG % 0.8 % Critically high 0.0-0.5 [facility] Comment on above: Performed By: #### G TT3P #### [facility] [address] [place] [address] Dr. Garland Kohli LYMPH # 0.9 103/ul Critically low 1.2-3.8 [facility] Comment on above: Performed By: #### G TT3P #### [facility] [address] [place] [address] Dr. Garland Kohli Lymphocytes/100 WBC (Bld) 10.4 % Critically low 20.5-60.0 [facility] [place] Comment on above: Performed By: #### G TT3P #### [facility] [address] [place] [address] Dr. Garland Kohli MANUAL DIFF REQ NO Normal [facility] Comment on above: Performed By: #### G TT3P #### [facility] [address] [place] [address] Dr. Garland Kohli MCH (RBC) [Entitic mass] 31.4 pg Normal 26.7-34.0 [facility] Comment on above: Performed By: #### G TT3P #### [facility] [address] [place] [address] Dr. Garland Kohli MCHC (RBC) [Mass/Vol] 34.5 g/dL Normal 29.9-35.2 [facility] Comment on above: Performed By: #### G TT3P #### [facility] [address] [place] [address] Dr. Garland Kohli MCV (RBC) [Entitic vol] 91.0 fL Normal 81.0-99.0 [facility] [place] Comment on above: Performed By: #### G TT3P #### [facility] [address] [place] [address] Dr. Garland Kohli MONO # 1.1 103/ul Critically high 0.3-0.8 [facility] Comment on above: Performed By: #### G TT3P #### [facility] [address] [place] [address] Dr. Garland Kohli Monocytes/100 WBC (Bld) 12.5 % Critically high 1.7-12.0 [facility] [place] Comment on above: Performed By: #### G TT3P #### [facility] [address] [place] [address] Dr. Garland Kohli NEUT # 6.3 103/ul Normal 1.4-6.5 [facility] [place] Comment on above: Performed By: #### G TT3P #### [facility] [address] [place] [address] Dr. Garland Kohli Neutrophils/100 WBC (Bld) 75.7 % Critically high 43.0-75.0 [facility] [place] Comment on above: Performed By: #### G TT3P #### [facility] [address] [place] [address] Dr. Garland Kohli Platelet mean volume (Bld) [Entitic vol] 10.5 fL Normal 9.5-13.5 [facility] [place] Comment on above: Performed By: #### G TT3P #### [facility] [address] [place] [address] Dr. Garland Kohli PLT 181 103/ul Normal 150-450 [facility] [place] Comment on above: Performed By: #### G TT3P #### [facility] [address] [place] [address] Dr. Garland Kohli RBC 3.57 106/ul Critically low 4.20-5.40 [facility] Comment on above: Performed By: #### G TT3P #### [facility] [address] [place] [address] Dr. Garland Kohli WBC 8.4 103/ul Normal 4.0-11.0 [facility] [place] Comment on above: Performed By: #### G TT3P #### [facility] [address] [place] [address] Dr. Garland Kohli CTA CHEST WO W [...] by: DEANNA LINN Date: 2022-04-04 15:25 Normal [facility] PROF CHEM 8 (BAS METB)on Anion gap [Moles/Vol] 13.2 mmol/L Normal [facility] Comment on above: Performed By: #### G TT3P #### [facility] [address] [place] [address] Dr. Garland Kohli Calcium [Mass/Vol] 8.5 mg/dL Normal 8.5-10.1 [facility] Comment on above: Performed By: #### G TT3P #### [facility] [address] [place] [address] Dr. Garland Kohli Chloride [Moles/Vol] 103 mmol/L Normal 98-107 [facility] Comment on above: Performed By: #### G TT3P #### [facility] [address] [address] [address] Garland Kohli CO2 [Moles/Vol] 23.4 mmol/L Normal 21.0-32.0 [facility] Comment on above: Performed By: #### G TT3P #### [facility] [address] [address] [address] Garland Kohli Creatinine [Mass/Vol] 0.43 mg/dL Critically low 0.55-1.02 [facility] [place] Comment on above: Performed By: #### G TT3P #### [facility] [address] [address] [address] Garland Kohli EGFR-AF BURUNDIAN >60 Normal >=60 [facility] Comment on above: Performed By: #### G TT3P #### [facility] [address] [place] [address] Dr. Garland Kohli EGFR-NON AF BURUNDIAN >60 Normal >=60 [facility] [place] Comment on above: Performed By: #### G TT3P #### [facility] [address] [address] [address] Garland Kohli Glucose [Mass/Vol] 108 mg/dL Critically high 74-106 [facility] Comment on above: Performed By: #### G TT3P #### [facility] [address] [address] [address] Garland Kohli Potassium [Moles/Vol] 3.6 mmol/L Normal 3.5-5.1 [facility] [place] Comment on above: Performed By: #### G TT3P #### [facility] [address] [address] [address] Garland Kohli Sodium [Moles/Vol] 136 mmol/L Normal 136-145 [facility] Comment on above: Performed By: #### G TT3P #### [facility] [address] [place] [address] Dr. Garland Kohli Urea nitrogen [Mass/Vol] 5.0 mg/dL Critically low 7.0-18.0 [facility] [place] Comment on above: Performed By: #### G TT3P #### [facility] [address] [place] [address] Dr. Garland Kohli Urea nitrogen/Creatinine [Mass ratio] 11.6 mg/mg Normal [facility] [place] Comment on above: Performed By: #### G TT3P #### [facility] [address] [place] [address] Dr. Garland Kohli TROPONIN, HIGH SENSITIVITYon 04-04-2022 HSTROP 9.3 pg/mL Normal 4.0-51.3 [facility] [place] Comment on above: Result Comment: CUT- OFF POINTS HAVE BEEN ESTABLISHED BASED ON THE FOURTH UNIVERSAL DEFINITIONS OF MYOCARDIAL INFARCTION. THE UPPER REFERENCE LIMIT (URL) OF TROPONIN, DEFINED THE 99TH PERCENTILE OF cTnI DISTRIBUTION IN A REFERENCE POPULATION, HAS BEEN CONFIRMED THE DECISION THRESHOLD FOR [place] DIAGNOSIS. Performed By: #### G TT3P #### [facility] [address] [place] [address] Dr. Garland Kohli CBC AUTO DIFFon 03-26-2022 BASO # 0.0 103/ul Normal 0.0-0.1 [facility] [place] Comment on above: Performed By: #### G TT3P #### [facility] [address] [address] [address] Garland Kohli Basophils/100 WBC (Bld) 0.2 % Normal 0.2-2.0 [facility] [place] Comment on above: Performed By: #### G TT3P #### [facility] [address] [address] [address] Garland Kohli EO # 0.1 103/ul Normal 0.0-0.7 [facility] [place] Comment on above: Performed By: #### G TT3P #### [facility] [address] [place] [address] Dr. Garland Kohli Eosinophils/100 WBC (Bld) 1.0 % Normal 0.9-7.0 [facility] [place] Comment on above: Performed By: #### G TT3P #### [facility] [address] [place] [address] Dr. Garland Kohli Erythrocyte distribution width (RBC) [Ratio] 12.8 % Normal 11.0-15.0 [facility] Comment on above: Performed By: #### G TT3P #### [facility] [address] [place] [address] Dr. Garland Kohli Hematocrit (Bld) [Volume fraction] 36.2 % Normal 36.0-48.0 [facility] [place] Comment on above: Performed By: #### G TT3P #### [facility] [address] [place] [address] Dr. Garland Kohli Hemoglobin (Bld) [Mass/Vol] 12.2 g/dL Normal 12.0-16.0 [facility] Comment on above: Performed By: #### G TT3P #### [facility] [address] [place] [address] Dr. Garland Kohli IG # 0.08 10e3/ul Critically high 0.00-0.03 [facility] Comment on above: Performed By: #### G TT3P #### [facility] [address] [place] [address] Dr. Garland Kohli IG % 0.9 % Critically high 0.0-0.5 [facility] Comment on above: Performed By: #### G TT3P #### [facility] [address] [place] [address] Dr. Garland Kohli LYMPH # 1.7 103/ul Normal 1.2-3.8 [facility] [place] Comment on above: Performed By: #### G TT3P #### [facility] [address] [place] [address] Dr. Garland Kohli Lymphocytes/100 WBC (Bld) 17.8 % Critically low 20.5-60.0 [facility] Comment on above: Performed By: #### G TT3P #### [facility] [address] [place] [address] Dr. Garland Kohli MANUAL DIFF REQ NO Normal [facility] Comment on above: Performed By: #### G TT3P #### [facility] [address] [place] [address] Dr. Garland Kohli MCH (RBC) [Entitic mass] 30.7 pg Normal 26.7-34.0 [facility] Comment on above: Performed By: #### G TT3P #### [facility] [address] [place] [address] Dr. Garland Kohli MCHC (RBC) [Mass/Vol] 33.7 g/dL Normal 29.9-35.2 [facility] Comment on above: Performed By: #### G TT3P #### [facility] [address] [place] [address] Dr. Garland Kohli MCV (RBC) [Entitic vol] 91.2 fL Normal 81.0-99.0 [facility] Comment on above: Performed By: #### G TT3P #### [facility] [address] [place] [address] Dr. Garland Kohli MONO # 0.6 103/ul Normal 0.3-0.8 [facility] [place] [facility] [place] Comment on above: Performed By: #### G TT3P #### [facility] [address] [place] [address] Dr. Garland Kohli Monocytes/100 WBC (Bld) 6.0 % Normal 1.7-12.0 [facility] [place] [facility] [place] Comment on above: Performed By: #### G TT3P #### [facility] [address] [address] [address] Garland Kohli NEUT # 6.9 103/ul Critically high 1.4-6.5 [facility] Comment on above: Performed By: #### G TT3P #### [facility] [address] [address] [address] Garland Kohli Neutrophils/100 WBC (Bld) 74.1 % Normal 43.0-75.0 [facility] [place] [facility] [place] Comment on above: Performed By: #### G TT3P #### [facility] [address] [address] [address] Garland Kohli Platelet mean volume (Bld) [Entitic vol] 10.2 fL Normal 9.5-13.5 [facility] [place] [facility] [place] Comment on above: Performed By: #### G TT3P #### [facility] [address] [address] [address] Garland Kohli PLT 217 103/ul Normal 150-450 [facility] [place] [facility] [place] Comment on above: Performed By: #### G TT3P #### [facility] [address] [address] [address] Garland Kohli RBC 3.97 106/ul Critically low 4.20-5.40 [facility] Comment on above: Performed By: #### G TT3P #### [facility] [address] [address] [address] Garland Kohli WBC 9.3 103/ul Normal 4.0-11.0 [facility] [place] [facility] Comment on above: Performed By: #### G TT3P #### [facility] [address] [address] [address] Garland Kohli GLUCOSE - 1HRon 03-26-2022 Glucose [Mass/Vol] 155 mg/dL Critically high 74-106 [facility] Comment on above: Performed By: #### C BC #### [facility] [address] [address] [address] Garland Kohli US PREG ANATOMY SINGLEon [...] YAAKOV TERAN Date: 2022-02-09 19:30 Normal [facility] AFP MATERNAL FOR SPINA BIFID Aon 01-29-2022 AFP MoM 0.76 Normal [facility] Comment on above: Performed By: #### G TT3P #### [facility] [address] [address] [address] Garland Kohli AFP Value 35.4 ng/mL Normal [facility] [place] [facility] [place] Comment on above: Performed By: #### G TT3P #### [facility] [address] [address] [address] Garland Kohli AFP, Serum for Spina Bifida Report Normal [facility] Comment on above: Performed By: #### G TT3P #### [facility] [address] [address] [address] Garland Kohli Comment Comment Normal [facility] [place] [facility] Comment on above: Result Comment: Stanley Almodovar, Ph.D., [facility] Director . References: Available Upon Request. . Multiples Of Median Cutoffs For AFP Elevations Mark 2.5 Black 2.8 IDD 2.0 Twins 4.5 Abbreviation Definitions IDD - Insulin Dep Diabetes OSBR - Open Spina Bifida Risk . For further inquiries contact [facility] at [phone]. . This test was developed and its performance characteristics determined by [employer]. It has not been cleared or approved by the Food and Drug Administration. Performed By: #### G TT3P #### [facility] [address] [address] [address] Garland Izquierdo Age Collection Date 18.1 weeks [facility] Comment on above: Performed By: #### G TT3P #### [facility] [address] [place] [address] Dr. Garland Kohli Gestat, Age Based on Ultrasound Normal [facility] [place] Comment on above: Result Comment: 09:4 on 11/26/2021 Recalculations are not recommended when gestational dating by LMP and ultrasound are within 10 days. Performed By: #### G TT3P #### [facility] [address] [place] [address] Dr. Garland Kohli Insulin Dep Diabetes No Normal [facility] Comment on above: Performed By: #### G TT3P #### [facility] [address] [place] [address] Dr. Garland Kohli Interpretation Comment Normal [facility] Comment on above: Result [...] Customer Services to discuss available options. The [employer] recommends amniocentesis be offered to women age 35 and older. Performed By: #### G TT3P #### [facility] [address] [address] [address] Garland Kohli [age] Normal [facility] Comment on above: Performed By: #### G TT3P #### [facility] [address] [address] [address] Garland Kohli Multiple Gestation No Normal [facility] Comment on above: Performed By: #### G TT3P #### [facility] [address] [address] [address] Garland Kohli OSBR Risk 1 [place] [address] [facility] Comment on above: Performed By: #### G TT3P #### [facility] [address] [address] [address] Garland Kohli PDF . [facility] Comment on above: Performed By: #### G TT3P #### [facility] [address] [address] [address] Garland Kohli Race [facility] Comment on above: Performed By: #### G TT3P #### [facility] [address] [address] [address] Garland Kohli Test Results: Negative [facility] Comment on above: Performed By: #### G TT3P #### [facility] [address] [place] [address] Dr. Garland Kohli PAP ACOG PANEL 2: 21 to 29on 01-23-2022 . . [facility] Comment on above: Performed By: #### 4 [id number] #### [facility] [address] [place] [address] Dr. Garland Kohli Age Gdln ACOG Testing [facility] Comment on above: Performed By: #### 4 [id number] #### [facility] [address] [place] [address] Dr. Garland Kohli DIAGNOSIS: Comment [facility] Comment on above: Result Comment: NEGA TIVE FOR INTRAEPITHELIAL LESION OR MALIGNANCY. Performed By: #### 4 [id number] #### [facility] [address] [address] [address] Garland Kohli Methodology: Comment Normal [facility] Comment on above: Result Comment: This liquid based ThinPrep(R) pap test was screened with the use of an image guided system. Performed By: #### 4 [id number] #### [facility] [address] [place] [address] Dr. Garland Kohli Note: Comment Normal [facility] Comment on above: Result Comment: The Pap smear is a screening test designed to aid in the detection of premalignant and malignant conditions of the uterine cervix. It is not a diagnostic procedure and should not be used as the sole means of detecting cervical cancer. Both false-positive and false-negative reports do occur. . Performed By: #### 4 [id number] #### [facility] [address] [place] [address] Dr. Garland Kohli Performed by: Comment Normal [facility] Comment on above: Result Comment: Kelly Arreguin, Pricing Director (ASCP) Performed By: #### 4 [id number] #### [facility] [address] [place] [address] Dr. Garland Kohli Reflex Criteria: Comment Normal [facility] Comment on above: Result Comment: The HPV DNA reflex criteria were not met with this specimen result therefore, no HPV testing was performed. . Performed By: #### 4 [id number] #### [facility] [address] [place] [address] Dr. Garland Kohli Specimen adequacy: Comment Normal [facility] Comment on above: Result Comment: Sati sfactory for evaluation. No endocervical component is identified. Performed By: #### 4 [id number] #### [facility] [address] [place] [address] Dr. Garland Kohli CHLAMYDIA/GONOCOCCUS JUAN (SW AB/URINE/PAPon 01-20-2022 Chlamydia trachomatis, JUAN Negative Normal Negative [facility] Comment on above: Performed By: #### C BC #### [facility] [address] [place] [address] Dr. Garland Kohli Neisseria gonorrhoeae, JUAN Negative Normal Negative [facility] [place] [facility] Comment on above: Performed By: #### C BC #### [facility] [address] [place] [address] Dr. Garland Kohli TSHon 01-04-2022 TSH 1.707 uIU/mL Normal 0.358-3.740 [facility] Comment on above: Performed By: #### G TT3P #### [facility] [address] [place] [address] Dr. Garland Kohli HEPATITIS C VIRUS AB W/ REFL EX QUANTon 12-17-2021 HCV AB <0.1 Normal 0.0-0.9 [facility] [place] [facility] Comment on above: Performed By: #### G TT3P #### [facility] [address] [place] [address] Dr. Garland Kohli Interpretation: Comment Normal [facility] Comment on above: Result Comment: Nega tive Not infected with HCV, unless recent infection is suspected or other evidence exists to indicate HCV infection. Performed By: #### G TT3P #### [facility] [address] [place] [address] Dr. Garland Kohli CULTURE URINEon 12-15-2021 CULTURE URINE Culture Observations : GREATER THAN TWO ORGANISMS PRESENT. PLEASE RESUBMIT CLEAN CATCH MID-STREAM URINE IF CLINICALLY INDICATED. Normal [facility] Comment on above: Performed By: #### U RCX #### [facility] [address] [place] [address] Dr. Garland Kohli HEP B SURFACE ANTIGEN SCREEN on 12-15-2021 HBsAg Screen Negative Normal Negative [facility] Comment on above: Performed By: #### H BSANS #### [facility] [address] [place] [address] Dr. Garland Kohli HIV 1 AND 2 WITH REFLEXon HIV Screen 4th Generation wRfx Non-Reactive Normal Non Reactive [facility] Comment on above: Result Comment: HIV Negative HIV-1/HIV-2 antibodies and HIV-1 p24 antigen were NOT detected. There is no laboratory evidence of HIV infection. Performed By: #### H IV12 #### [facility] [address] [place] [address] Dr. Garland Kohli RPR QUANTon 12-15-2021 Rapid Plasma Reagin, Quant Non-Reactive Normal NonRea<1:1 [facility] Comment on above: Result Comment: Elmo torres Note: This test does not meet current guidelines for screening and diagnosis of syphilis. This test is intended for following treatment response in patients being treated for syphilis infection. To screen for syphilis infection, a reflex cascade that includes both RPR and a treponema-specific assay should be utilized, such as Treponema pallidum (Syphilis) Screening [place] (907811) or Rapid Plasma Reagin (RPR) Test With Reflex to Quantitative RPR and Confirmatory Treponema pallidum Antibodies (342977). Performed By: #### G TT3P #### [facility] [address] [place] [address] Dr. Garland Kohli RUBELLA AB IGGon 12-15-2021 Rubella Antibodies, IgG 4.72 index Normal Immune >0.99 [facility] Comment on above: Result Comment: Non- immune <0.90 Equivocal 0.90 - 0.99 Immune >0.99 Performed By: #### G TT3P #### [facility] [address] [place] [address] Dr. Garland Kohli CBC AUTO DIFFon 12-14-2021 BASO # 0.0 103/ul Normal 0.0-0.1 [facility] [place] [facility] Comment on above: Performed By: #### C BC #### [facility] [address] [place] [address] Dr. Garland Kohli Basophils/100 WBC (Bld) 0.3 % Normal 0.2-2.0 [facility] Comment on above: Performed By: #### C BC #### [facility] [address] [place] [address] Dr. Garland Kohli EO # 0.1 103/ul Normal 0.0-0.7 [facility] Comment on above: Performed By: #### C BC #### [facility] [address] [place] [address] Dr. Garland Kohli Eosinophils/100 WBC (Bld) 0.8 % Critically low 0.9-7.0 [facility] Comment on above: Performed By: #### C BC #### [facility] [address] [place] [address] Dr. Garland Kohli Erythrocyte distribution width (RBC) [Ratio] 12.6 % Normal 11.0-15.0 [facility] [place] [facility] Comment on above: Performed By: #### C BC #### [facility] [address] [place] [address] Dr. Garland Kohli Hematocrit (Bld) [Volume fraction] 34.3 % Critically low 36.0-48.0 [facility] [place] [facility] Comment on above: Performed By: #### C BC #### [facility] [address] [place] [address] Dr. Garland Kohli Hemoglobin (Bld) [Mass/Vol] 11.7 g/dL Critically low 12.0-16.0 [facility] [place] [facility] [place] Comment on above: Performed By: #### C BC #### [facility] [address] [place] [address] Dr. Garland Kohli IG # 0.03 10e3/ul Normal 0.00-0.03 [facility] [place] [facility] Comment on above: Performed By: #### C BC #### [facility] [address] [place] [address] Dr. Garland Kohli IG % 0.4 % Normal 0.0-0.5 [facility] [place] [facility] [place] Comment on above: Performed By: #### C BC #### [facility] [address] [place] [address] Dr. Garland Kohli LYMPH # 1.5 103/ul Normal 1.2-3.8 [facility] Comment on above: Performed By: #### C BC #### [facility] [address] [place] [address] Dr. Garland Kohli Lymphocytes/100 WBC (Bld) 21.1 % Normal 20.5-60.0 [facility] [place] [facility] Comment on above: Performed By: #### C BC #### [facility] [address] [place] [address] Dr. Garland Kohli MANUAL DIFF REQ NO Normal [facility] Comment on above: Performed By: #### C BC #### [facility] [address] [place] [address] Dr. Garland Kohli MCH (RBC) [Entitic mass] 30.5 pg Normal 26.7-34.0 [facility] Comment on above: Performed By: #### C BC #### [facility] [address] [place] [address] Dr. Garland Kohli MCHC (RBC) [Mass/Vol] 34.1 g/dL Normal 29.9-35.2 [facility] Comment on above: Performed By: #### C BC #### [facility] [address] [place] [address] Dr. Garland Kohli MCV (RBC) [Entitic vol] 89.6 fL Normal 81.0-99.0 [facility] Comment on above: Performed By: #### C BC #### [facility] [address] [place] [address] Dr. Garland Kohli MONO # 0.5 103/ul Normal 0.3-0.8 [facility] Comment on above: Performed By: #### C BC #### [facility] [address] [place] [address] Dr. Garland Kohli Monocytes/100 WBC (Bld) 7.1 % Normal 1.7-12.0 [facility] Comment on above: Performed By: #### C BC #### [facility] [address] [place] [address] Dr. Garland Kohli NEUT # 5.0 103/ul Normal 1.4-6.5 [facility] Comment on above: Performed By: #### C BC #### [facility] [address] [place] [address] Dr. Garland Kohli Neutrophils/100 WBC (Bld) 70.3 % Normal 43.0-75.0 [facility] Comment on above: Performed By: #### C BC #### [facility] [address] [place] [address] Dr. Garland Kohli Platelet mean volume (Bld) [Entitic vol] 10.1 fL Normal 9.5-13.5 [facility] Comment on above: Performed By: #### C BC #### [facility] [address] [address] [address] Garland Kohli PLT 234 103/ul Normal 150-450 [facility] Comment on above: Performed By: #### C BC #### [facility] [address] [place] [address] Dr. Garland Kohli RBC 3.83 106/ul Critically low 4.20-5.40 [facility] Comment on above: Performed By: #### C BC #### [facility] [address] [place] [address] Dr. Garland Kohli WBC 7.1 103/ul Normal 4.0-11.0 [facility] [place] [facility] Comment on above: Performed By: #### C BC #### [facility] [address] [place] [address] Dr. Garland Kohli GLYCOHEMOGLOBIN A1Con 2021 ADA RECOMMENDATION SEE BELOW Normal [facility] Comment on above: Result Comment: ADA RECOMMENDED LIMIT 4.0 - 6.0 ADA THERAPEUTIC TARGET < 7.0 ACTION SUGGESTED > 7.0 Performed By: #### A 1C #### [facility] [address] [place] [address] Dr. Garland Kohli Glucose [Mass/Vol] 103 mg/dL Normal [facility] Comment on above: Performed By: #### A 1C #### [facility] [address] [place] [address] Dr. Garland Kohli HbA1c (Bld) [Mass fraction] 5.2 % Normal 4.5-6.2 [facility] [place] [facility] Comment on above: Performed By: #### A 1C #### [facility] [address] [place] [address] Dr. Garland Kohli MARTÍNEZ BOX TEST PT SEND OUTo n 12-14-2021 SENT TO REF LAB 12/14/21 Normal [facility] Comment on above: Performed By: #### G TT3P #### [facility] [address] [place] [address] Dr. Garland Kohli TYPE AND SCREENon 12-14-2021 TYPE AND SCREEN Negative Normal [facility] Comment on above: Performed By: #### C BC #### [facility] [id number] Garland Kohli US PREG TVon 11-26-2021 [...] YAAKOV TERAN Date: 2021-11-26 18:36 Normal [facility] OPERATIVE REPORTon 9 OPERATIVE REPORT [address] [address] OPERATIVE REPORT PATIENT NAME: CECELIA JOHNSON : 1995 MED REC NO: [id number] ROOM: ACCOUNT NO: [id number] ADMIT DATE: 11/24/2018 PROVIDER: Mode Renee DATE [...] into the drains, this was for senior care pain control. Steri-Strips applied throughout and then bulky gauze dressing as well as surgical bra was applied. The patient was awoken, extubated, and transported to the recovery room in stable condition. Sponge, needle, and instrument counts were reported correct x2 at the end of the case. MODE RENEE [id number] Doc#: [id number] CC: Carlos Alberto Coleman Normal [facility] Surgical Pathologyon 019 Surgical Pathology (NOTE) [id number] [facility] [address] [place] [address]. [place] [place] [address] SURGICAL PATHOLOGY REPORT Patient Name: CECELIA JOHNSON MR#: [id number] Specimen #[id number] Final Diagnosis SPECIMEN A : BREAST AND [...] The entire specimen weighs 453 grams. Multiple contact center representative sections are submitted in five cassettes [...] also sampled in multiple different areas and contact center representative sections are submitted in five cassettes for microscopic examination. Microscopic Description Specimen A : Five RICHARD glass slides are received. Microscopic examination is performed. Specimen B : Five RICHARD glass slides are received. Microscopic examination is performed. Normal [facility] Comment on above: Performed By: #### P PPES #### [facility] [address] [place] [address] Manufacturing Operations Manager: Victor Manuel Hunter DO CNOVSPon 11-18-2018 CNOVS Visit (SP) Office (KATHARINE) CECELIA JOHNSON ([id number]) 1995 F Date Time Provider Department 11/18/18 1:00 PM JAZ MOULTON MD During your visit today, we recorded the following information about you: Temperature Pulse Respiration Blood pressure 97.9 degrees 82/minute 18/minute 122/78 Weight Height Last Period 82.7 kg 1.6 m 10/15/18 Jaz Moulton MD 11/18/2018 3:08 PM Signed PATIENT NAME: Cecelia Johnson CLINIC NO.: [id number] ATTENDING PHYSICIAN: Jaz Moulton MD DATE OF [...] file Gets together: Not on file Attends restorationism service: Not on file Active member of [...] number below. Jaz Moulton M.D. Hematology/Medical Oncology [place] [address] [phone] CC: Carlos Alberto Coleman MD - (Inactive), In Basket (Inactive) - User (Inactive) [phone] [facility] [phone] () Mode Renee MD Referring Provider: [...] Status:Closed by JAZ MOULTON MD on 11/18/18 [facility] PROGRESSon 11-18-2018 PROGRESS HNO ID: [id number] Author: aJz Hill) [place] Service: ? Author Type: Physician Type: Progress Notes Filed: 11/18/2018 3:08 PM Note Text: PATIENT NAME: Cecelia Johnson [facility] NO.: [id number] ATTENDING PHYSICIAN: Jaz Moulton MD DATE OF [...] file Gets together: Not on file Attends restorationism service: Not on file Active member of [...] below. Jaz Moulton M.D. Hematology/Medical Oncology [facility] [phone] CC: Carlos Alberto Coleman MD - (Inactive), In Basket (Inactive) - User (Inactive) [id number] [place] [phone] (Ph) Mode Renee MD Normal [facility] [place] [facility] Basic Metabolic Profon 11-10 (cont.) Normal [facility] Comment on above: Result Comment: Aver age GFR for 20-29 years old: 116 mL/min/1.73sq m Chronic Kidney Disease: <60 mL/min/1.73sq m Kidney failure: <15 mL/min/1.73sq m eGFR calculated using average adult body mass. Additional eGFR calculator available at: http://www.[employer]/multiple_crcl_2012.htm Performed By: #### C DP, BMP #### [facility] [address] Manufacturing Operations Manager: Victor Manuel Hunter DO Anion gap [Moles/Vol] 11 mmol/L Normal 9-17 [facility] Comment on above: Performed By: #### C FARAZ, BMP #### [facility] [address] [place] [id number] Manufacturing Operations Manager: Victor Manuel Hunter DO Calcium [Mass/Vol] 9.7 mg/dL Normal 8.6-10.4 [facility] Comment on above: Performed By: #### C FARAZ, BMP #### [facility] [place] [address] Manufacturing Operations Manager: Victor Manuel Hunter DO Chloride [Moles/Vol] 102 mmol/L Normal 98-107 [facility] Comment on above: Performed By: #### C FARAZ, BMP #### [facility] [address] [place] [address]. [place] [address] Manufacturing Operations Manager: Victor Manuel Hunter DO CO2 [Moles/Vol] 26 mmol/L Normal 20-31 [facility] Comment on above: Performed By: #### C DP, BMP #### [facility] [address] Manufacturing Operations Manager: Victor Manuel Hunter DO Creatinine [Mass/Vol] 0.49 mg/dL Low 0.50-0.90 [facility] Comment on above: Performed By: #### C DP, BMP #### [facility] [address] [place] [address] Manufacturing Operations Manager: Victor Manuel Hunter DO GFR, Amer >60 Normal >60 [facility] Comment on above: Performed By: #### C DP, BMP #### [facility] [address] [place] [address] Manufacturing Operations Manager: Victor Manuel Hunter DO GFR,non Amer >60 Normal >60 [facility] Comment on above: Performed By: #### C DP, BMP #### [facility] [address] [place] [address] Manufacturing Operations Manager: Victor Manuel Hunter DO Glucose [Mass/Vol] 88 mg/dL Normal 70-99 [facility] Comment on above: Performed By: #### C DP, BMP #### [facility] [place] [address] Manufacturing Operations Manager: Victor Manuel Hunter DO Potassium [Moles/Vol] 4.3 mmol/L Normal 3.7-5.3 [facility] Comment on above: Performed By: #### C DP, BMP #### [facility] [place] [address] Manufacturing Operations Manager: Victor Manuel Hunter DO Sodium [Moles/Vol] 139 mmol/L Normal 135-144 [facility] Comment on above: Performed By: #### C DP, BMP #### [facility] [address] [place] [address] Manufacturing Operations Manager: Victor Manuel Hunter DO Urea nitrogen [Mass/Vol] 8 mg/dL Normal 6-20 [facility] Comment on above: Performed By: #### C DP, BMP #### [facility] [address] [place] [address] Manufacturing Operations Manager: Victor Manuel Hunter DO BUN/CRE Ratio NOT REPORTED Normal 9-20 [facility] Comment on above: Performed By: #### C FARAZ, BMP #### [facility] [address] [place] [address] Manufacturing Operations Manager: Victor Manuel Hunter DO Staging: NOT REPORTED Normal [facility] Comment on above: Performed By: #### C FARAZ, BMP #### [facility] [address] [place] [address] Manufacturing Operations Manager: Victor Manuel Hunter DO CBC with Diffon 11-10-2018 Abs. Basophil 0.00 k/uL Normal 0.0-0.2 [facility] Comment on above: Performed By: #### C DP, BMP #### [facility] [address] [place] [address] Manufacturing Operations Manager: Victor Manuel Hunter DO Abs.Neutrophil (Seg) 3.00 k/uL Normal 1.3-9.1 [facility] Comment on above: Performed By: #### C FARAZ, BMP #### [facility] [address] [place] [address] Manufacturing Operations Manager: Victor Manuel Hunter DO Basophils/100 WBC (Bld) 0 % Normal 0-2 [facility] Comment on above: Performed By: #### C FARAZ, BMP #### [facility] [address] [place] [address] Manufacturing Operations Manager: Victor Manuel Hunter DO Eosinophils (Bld) [#/Vol] 0.10 10*3/uL Normal 0.0-0.4 [facility] Comment on above: Performed By: #### C DP, BMP #### [facility] [address] [place] [address] Manufacturing Operations Manager: Victor Manuel Hunter DO Eosinophils/100 WBC (Bld) 1 % Normal 0-4 [facility] Comment on above: Performed By: #### C DP, BMP #### [facility] [address] [place] [address] Manufacturing Operations Manager: Victor Manuel Hunter DO Erythrocyte distribution width (RBC) [Ratio] 12.7 % Normal 11.5-14.9 [facility] Comment on above: Performed By: #### C DP, BMP #### [facility] [address] [place] [address] Manufacturing Operations Manager: Victor Manuel Hunter DO Hematocrit (Bld) [Volume fraction] 42.3 % Normal 36-46 [facility] Comment on above: Performed By: #### C DP, BMP #### [facility] [address] [place] [address] Manufacturing Operations Manager: Victor Manuel Hunter DO Hemoglobin (Bld) [Mass/Vol] 14.3 g/dL Normal 12.0-16.0 [facility] Comment on above: Performed By: #### C FARAZ, BMP #### [facility] [address] [place] [address] Manufacturing Operations Manager: Victor Manuel Hunter DO Lymphocytes (Bld) [#/Vol] 1.70 10*3/uL Normal 1.0-4.8 [facility] Comment on above: Performed By: #### C DP, BMP #### [facility] [address] [place] [address] Manufacturing Operations Manager: Victor Manuel Hunter DO Lymphocytes/100 WBC (Bld) 32 % Normal 24-44 [facility] Comment on above: Performed By: #### C DP, BMP #### [facility] [address] [place] [address] Manufacturing Operations Manager: Victor Manuel Hunter DO MCH (RBC) [Entitic mass] 30.0 pg Normal 26-34 [facility] Comment on above: Performed By: #### C DP, BMP #### [facility] [place] [address] Manufacturing Operations Manager: Victor Manuel Hunter DO MCHC (RBC) [Mass/Vol] 33.7 g/dL Normal 31-37 [facility] Comment on above: Performed By: #### C DP, BMP #### [facility] [address] [place] [address] Manufacturing Operations Manager: Victor Manuel Hunter DO MCV (RBC) [Entitic vol] 89.0 fL Normal 80-100 [facility] Comment on above: Performed By: #### C DP, BMP #### [facility] [address] [place] [address] Manufacturing Operations Manager: Victor Manuel Hunter DO Monocytes (Bld) [#/Vol] 0.60 10*3/uL Normal 0.1-1.3 [facility] Comment on above: Performed By: #### C FARAZ, BMP #### [facility] [address] [place] [address] Manufacturing Operations Manager: Victor Manuel Hunter DO Monocytes/100 WBC (Bld) 11 % High 1-7 [facility] Comment on above: Performed By: #### C DP, BMP #### [facility] [address] [place] [address] Manufacturing Operations Manager: Victor Manuel Hunter DO Neutrophil (Seg) 56 % Normal 36-66 [facility] Comment on above: Performed By: #### C DP, BMP #### [facility] [address] [place] [address] Manufacturing Operations Manager: Victor Manuel Hunter DO Platelet mean volume (Bld) [Entitic vol] 9.4 fL Normal 6.0-12.0 [facility] Comment on above: Performed By: #### C DP, BMP #### [facility] [place] [address] Manufacturing Operations Manager: Victor Manuel Hunter DO Platelets (Bld) [#/Vol] 252 10*3/uL Normal 150-450 [facility] Comment on above: Performed By: #### C DP, BMP #### [facility] [address] [place] [address] Manufacturing Operations Manager: Victor Manuel Hunter DO RBC (Bld) [#/Vol] 4.75 10*6/uL Normal 4.0-5.2 [facility] Comment on above: Performed By: #### C DP, BMP #### [facility] [address] [place] [address] Manufacturing Operations Manager: Victor Manuel Hunter DO WBC (Bld) [#/Vol] 5.3 10*3/uL Normal 3.5-11.0 [facility] Comment on above: Performed By: #### C FARAZ, BMP #### [facility] [address] [place] [address] Manufacturing Operations Manager: Victor Manuel Hunter DO Abs.Imm.Granulocyte NOT REPORTED Normal 0.00-0.30 [facility] Comment on above: Performed By: #### C FARAZ, BMP #### [facility] [address] [place] [address] Manufacturing Operations Manager: Victor Manuel Hunter DO Auto Diff Performed NOT REPORTED Normal [facility] Comment on above: Performed By: #### C DP, BMP #### [facility] [address] [place] [address] Manufacturing Operations Manager: Victor Manuel Hunter DO Immature granulocytes (Bld) [#/Vol] NOT REPORTED Normal 0 [facility] Comment on above: Performed By: #### C DP, BMP #### [facility] [address] [facility] [address] Manufacturing Operations Manager: Victor Manuel Hunter DO NRBC Automated NOT REPORTED Normal [facility] Comment on above: Performed By: #### C DP, BMP #### [facility] [address] [facility] [place] [address] Manufacturing Operations Manager: Victor Manuel Hunter DO Platelets (Bld) [#/Vol] NOT REPORTED Normal [facility] Comment on above: Performed By: #### C DP, BMP #### [facility] [address] [facility] [address] Manufacturing Operations Manager: Victor Manuel Hunter DO RBC morphology finding Nom (Bld) NOT REPORTED Normal [facility] Comment on above: Performed By: #### C DP, BMP #### [facility] [place] [address] Manufacturing Operations Manager: Victor Manuel Hunter DO WBC Morphology NOT REPORTED Normal [facility] Comment on above: Performed By: #### C DP, BMP #### [facility] [place] [address] Manufacturing Operations Manager: Victor Manuel Hunter DO Vital Signs Date Time Vital Sign Value Performing Clinician Facility 03-09-2024 16:25-0500 Body mass index (BMI) [Ratio] 30.88 kg/m2 Tori SHIRLEY Work Phone: [facility] 03-09-2024 16:25-0500 Body weight 81.6 kg Tori SHIRLEY Work Phone: [facility] 03-09-2024 16:25-0500 Diastolic blood pressure 70 mm[Hg] Tori SHIRLEY Work Phone: [facility] 03-09-2024 16:25-0500 Systolic blood pressure 114 mm[Hg] Tori SHIRLEY Work Phone: [facility] 02-10-2024 14:44-0400 Body mass index (BMI) [Ratio] 29.39 kg/m2 Herber Nnamdi DO Work Phone: [facility] 02-10-2024 14:44-0400 Body weight 77.68 kg Herber Nnamdi DO Work Phone: [facility] 02-10-2024 14:44-0400 Diastolic blood pressure 68 mm[Hg] Herber Nnamdi DO Work Phone: [facility] 02-10-2024 14:44-0400 Systolic blood pressure 116 mm[Hg] Herber Nnamdi DO Work Phone: [facility] 01-29-2022 02:06-0400 Body weight 67.[address] ZEN BREWER . [facility] Comment on above: Performed By: #### GTT3P #### [facility] [address] [place] [address] Dr. Garland Kohli Encounters Encounter Date Encounter Type Care Provider Facility Start: 03-19-2024 End: 03-19-2024 Clinisync Result Encounter Tori SHIRLEY Work Phone: [facility] External Department Unsolicited Start: 03-19-2024 End: 03-19-2024 Clinisync Result Encounter Tori SHIRLEY Work Phone: [facility] External Department Unsolicited Start: 03-09-2024 End: 03-09-2024 ambulatory TORI PEPE Not Available Start: 03-09-2024 End: 03-09-2024 flow sheet Tori SHIRLEY Work Phone: [facility] Comment on above: Encounter for follow -up ultrasound of anatomy; Second trimester ; 23 weeks gestation of ; Hypothyroidism, unspecified type (CMS/HCC); Diabetes mellitus screening; Anxiety, generalized (CMS/HCC) Start: 03-09-2024 End: 03-09-2024 Bamboo flowsheet Tori SHIRLEY Work Phone: [facility] Start: 03-09-2024 End: 03-09-2024 Bamboo flowsheet Tori SHIRLEY Work Phone: [facility] Start: 02-10-2024 End: 02-10-2024 ambulatory [...] encounter procedure Herber Nnamdi DO Work Phone: [facility] Healthcare Start: 02-10-2024 End: 02-10-2024 Periodic preventive med est patient 18-39 yrs Herber Nnamdi DO Work Phone: [facility] Comment on above: Well woman [...] MD Carlos Alberto Coleman Work Phone: [facility] Start: 07-13-2023 End: 07-13-2023 ambulatory MD Carlos Alberto Coleman Work Phone: [facility] Work Phone: Start: 07-13-2023 End: 07-13-2023 ambulatory SOFIE R LAUSE Not Available Start: 06-02-2023 Refill Tori Martinez [employer] Work Phone: [facility] Comment on above: Attention deficit hy peractivity disorder (ADHD), combined type ([facility]) Start: 04-16-2023 [...] without abnormal findings DR ZEN BREWER . [facility] Start: 01-17-2022 End: 01-17-[address] ZEN BREWER . Facility:[facility] Start: 01-17-2022 End: 01-17-2022 Encounter for gynecological examination (general) (routine) without abnormal findings DR ZEN BREWER . Facility:[facility] Start: 01-04-2022 End: 01-05-2022 ambulatory ÁNGEL SINHA Facility:[facility] Start: 12-14-2021 End: 12-15-[address] ZEN BREWER . Facility:[facility] Start: 11-26-2021 End: 11-27-2021 ambulatory ÁNGEL SINHA Facility:[facility] Start: 11-24-2018 End: 11-24-2018 Patient encounter procedure MODE RENEE [facility] Start: 11-10-2018 End: 11-15-2018 Patient encounter procedure MODE RENEE [facility] Procedures Date Procedure Procedure Detail Performing Clinician Start: 03-19-2024 ALL CBC WITH AUTO DIFF Generic External Data Provider Start: 02-10-2024 Urnls dip stick/tabl et rgnt non-auto w/o micrscp Herber Nnamdi DO Work Phone: Start: 02-10-2024 IGP,APTIMA HPV,AGE GDLN Herber Nnamdi DO Work Phone: Start: 02-10-2024 Microscopic observat ion [Identifier] in Cervix by Cyto stain Tori SHIRLEY Work Phone: Start: 02-10-2024 Cytp cerv/vag auto t hin layer prep mnl screen Tori SHIRLEY Work Phone: Start: 07-13-2023 Respiratory [...] PATIENT NORMA RAINEYPTA Start: 11-24-2018 BEDREST [facility] Start: 11-24-2018 Continuous pulse oximetry MODE RENEE [...] Screening for malign ant neoplasm of cervix [facility] Start: 04-21-2024 End: 04-21-2024 Patient encounter procedure 04/21/2024 8:30 AM EST Routine [facility] [address] [place] [id number] Herber Coto DO [address], [place] [id number] [facility] Start: 04-06-2024 End: 04-06-2024 Patient encounter procedure 04/06/2024 3:20 PM EST Routine [facility] [address] [facility] [place] [address] Tori Pepe PA [address] [facility] [place] [address] [facility] Start: 04-03-2024 End: 03-04-2025 US for US OB INCOMPLETE ANATOMY Imaging Routine Encounter for follow-up ultrasound of anatomy Expected: 04/03/2024 (Approximate), Expires: 03/04/2025 [facility] Work Phone: Comment on above: Expected: 04/03/2024 (Approximate), Expires: 03/04/2025 Start: 03-09-2024 End: 03-09-2024 Patient encounter procedure 03/09/2024 3:50 PM EST Routine [facility] [address] [facility] [place] [address] Tori Pepe PA [address] [place] [address] [place] [address] [facility] Start: 03-09-2024 End: 03-09-2025 CBC panel - Blood by Automated count CBC Lab Routine Diabetes mellitus screening Expected: 03/09/2024 (Approximate), Expires: 03/09/2025 [facility] Comment on above: Expected: 03/09/2024 (Approximate), Expires: 03/09/2025 Start: 03-09-2024 End: 03-09-2025 Measurement of glucose 1 hour after glucose challenge for glucose tolerance test Glucose tolerance, 1 hour Lab Routine Diabetes mellitus screening Expected: 03/09/2024 (Approximate), Expires: 03/09/2025 [facility] Comment on above: Expected: 03/09/2024 (Approximate), Expires: 03/09/2025 Start: 03-09-2024 End: 03-09-2025 US for US OB SCAN FOR GROWTH Imaging Routine Hypothyroidism, unspecified type (CMS/HCC) Expected: 03/09/2024 (Approximate), Expires: 03/09/2025 [facility] Comment on above: Expected: 03/09/2024 (Approximate), Expires: 03/09/2025 Start: 02-10-2024 End: 02-09-2025 Alpha fetoprotein, maternal Alpha fetoprotein, maternal Lab Routine Second trimester 19 weeks gestation of Expected: 02/10/2024 (Approximate), Expires: 02/09/2025 [facility] Comment on above: Expected: 02/10/2024 (Approximate), Expires: 02/09/2025 Start: 02-10-2024 End: 02-09-2025 US for US OB ANATOMY SINGLE W US OB CERVICAL LENGTH Imaging Routine Screening, , for anatomic survey Expected: 02/10/2024 (Approximate), Expires: 02/09/2025 [facility] Comment on above: Expected: 02/10/2024 (Approximate), Expires: 02/09/2025 Start: 12-27-2023 Influenza vaccination Influenza Vacc ine (#1) [facility] Start: 06-30-2024 Influenza vaccination Influenza Vacc ine (#1) [facility] Comment on above: Postponed from 12/26 (Patient Refused) Start: 10-25-2023 Screening for malign ant neoplasm of cervix [facility] Start: 07-17-2023 End: 07-17-2023 Patient encounter procedure 07/17/2023 8:00 AM EDT Office Visit [facility] [address] [place] [address] Tori Martinez NP [address] [address] [facility] Start: 2014 Screening for malign ant neoplasm of cervix Pap Smear [facility] CHLAMYDIA TRACHOMATI S (GENITO/STI) CHLAMYDIA TRACHOMATIS (GENITO/STI) Lab Routine Screen for STD (sexually transmitted disease) Vaginal discharge Ordered: 02/10/2024 [facility] Comment on above: Ordered: 02/10/2024 Cytology Cervical or vaginal smear or scraping study Pap Smear Pathology and Cytology Routine Well woman exam with routine gynecological exam Ordered: 02/10/2024 [facility] Comment on above: Ordered: 02/10/2024 Human papilloma viru s DNA [Presence] in Unspecified specimen by Probe with amplification HPV DNA probe, amplified Microbiology Routine Well woman exam with routine gynecological exam Ordered: 02/10/2024 [facility] Comment on above: Ordered: 02/10/2024 Neisseria gonorrhoea e DNA [Presence] in Unspecified specimen by JUAN with probe detection Neisseria gonorrhea DNA probe, direct Lab Routine Screen for STD (sexually transmitted disease) Vaginal discharge Ordered: 02/10/2024 [facility] Comment on above: Ordered: 02/10/2024 SURESWAB(R) ADVANCED VAGINITIS PLUS, TMA SURESWAB(R) ADVANCED VAGINITIS PLUS, TMA Pathology and Cytology Routine Screen for STD (sexually transmitted disease) Vaginal discharge Ordered: 02/10/2024 [facility] Work Phone: Comment on above: Ordered: 02/10/2024 Immunizations Immunization Date Immunization Notes Care Provider Byron carlson 05-05-2015 tetanus toxoid, redu catherine diphtheria toxoid, and acellular pertussis vaccine, adsorbed Tori Warchol [employer] Work Phone: [facility] 02-14-2009 influenza, seasonal, injectable Tori Warchol [employer] Work Phone: [facility] 02-14-2009 influenza virus vacc ine, unspecified formulation Tori Warchol [employer] Work Phone: [facility] 12-12-2005 hepatitis A vaccine, unspecified formulation Tori Warchol [employer] Work Phone: [facility] 12-12-2005 tetanus toxoid, redu catherine diphtheria toxoid, and acellular pertussis vaccine, adsorbed Tori Warchol [employer] Work Phone: [facility] 11-19-1998 diphtheria, tetanus toxoids and acellular pertussis vaccine, unspecified formulation Tori Warchol [employer] Work Phone: [facility] 11-19-1998 measles, mumps and rubella virus vaccine Tori Warchol [employer] Work Phone: [facility] 11-19-1998 trivalent poliovirus vaccine, live, oral Tori Warchol [employer] Work Phone: [facility] 09-14-1995 diphtheria, tetanus toxoids and acellular pertussis vaccine, unspecified formulation Tori Warchol [employer] Work Phone: [facility] 09-14-1995 haemophilus influenz ae type b vaccine, conjugate unspecified formulation Tori Warchol [employer] Work Phone: [facility] 11-20-1994 DTP-Haemophilus influenzae type b conjugate vaccine Tori Warchol [employer] Work Phone: [facility] 11-20-1994 hepatitis B vaccine, pediatric or pediatric/adolescent dosage Tori Warchol [employer] Work Phone: [facility] 11-20-1994 measles, mumps and rubella virus vaccine Tori Warchol [employer] Work Phone: [facility] 11-20-1994 trivalent poliovirus vaccine, live, oral Tori Warchol [employer] Work Phone: [facility] 09-18-1994 DTP-Haemophilus influenzae type b conjugate vaccine Tori Warchol [employer] Work Phone: [facility] 09-18-1994 hepatitis B vaccine, pediatric or pediatric/adolescent dosage Tori Warchol [employer] Work Phone: [facility] 09-18-1994 trivalent poliovirus vaccine, live, oral Tori Kylee [employer] Work Phone: [facility] 1993 diphtheria, tetanus toxoids and pertussis vaccine Tori Jasonchol [employer] Work Phone: [facility] 1993 haemophilus influenz ae type b vaccine, conjugate unspecified formulation Tori Jasonchol [employer] Work Phone: [facility] 1993 hepatitis B vaccine, pediatric or pediatric/adolescent dosage Tori Jasonchol [employer] Work Phone: [facility] 1993 trivalent poliovirus vaccine, live, oral Tori Martinez [employer] Work Phone: [facility] Payers Date Payer Category Payer Medicaid [employer] [place] [id number] 2023 Self-pay [id number] 2022 [facility] er [id number] [id number] 2022 Unknown BCBS BCBS xxxxxx [id number] 2022-Present [phone] [address] [place] [address] [id number] 2017 Private Health Insurance [id number] 1993 Unknown [id number] 2.16.840.1.361877.3.579. 2.176 1993 Unknown [id number] 2.16.840.1.452114.3.579. 2.176 1993 Unknown [id number] 2.16.840.1.003718.3.579. 2.593 1993 Unknown [id number] 2.16.840.1.057145.3.579. 2.593 1993 Unknown [id number] 2.16.840.1.866610.3.579. 2.593 1993 Unknown [id number] 2.16.840.1.123427.3.579. 2.593 1993 Unknown [id number] 2.16.840.1.304009.3.579. 2.593 1993 Unknown [id number] 2.16.840.1.553266.3.579. 2.593 1993 Unknown [id number] 2.16.840.1.590170.3.579. 2.593 1993 Unknown [id number] 2.16.840.1.006930.3.579. 2.593 1993 Unknown [id number] 2.16.840.1.265754.3.579. 2.593 1993 Unknown [id number] 2.16.840.1.681293.3.579. 2.593 1993 Unknown [id number] 2.16.840.1.418603.3.579. 2.593 1993 Unknown [id number] 2.16.840.1.381114.3.579. 2.593 1993 Unknown [id number] 2.16.840.1.476828.3.579. 2.593 1993 Unknown [id number] 2.16.840.1.298756.3.579. 2.593 1993 Unknown [id number] 2.16.840.1.106245.3.579. 2.1259 1993 Unknown [id number] 2.16.840.1.263512.3.579. 2.1259 1993 Unknown [id number] 2.16.840.1.071272.3.579. 2.1259 1993 Unknown [id number] 2.16840.1.522546.3.579. 2.1259 1993 Unknown [id number] 2.16840.1.898089.3.579. 2.1259 1993 Unknown [id number] 2.16.840.1.283920.3.579. 2.1259 1993 Unknown [id number] 2.16.840.1.925438.3.579. 2.1259 1993 Unknown [id number] 2.16.840.1.711551.3.579. 2.1259 1959 Self-pay [id number] 1959 Unknown [id number] 1959 Unknown [id number] 1959 Unknown [id number] Unknown [id number] 2.16840.1.765330.3.579. 2.593 Unknown HCAP/HFA/FAP Active [id number] Unknown [id number] Social History Date Type Detail Facility Start: 08-27-2016 End: 09-25-2022 Tobacco smoking status NHIS Never smoked tobacco [facility] Health care Start: 09-25-2022 Tobacco use [...] or more drinks on 1 occasion? Never [facility] Start: 1995 Sex Assigned At Female [facility] Start: 09-24-2022 Gender identity Identifies as female gender (finding) [facility] Start: 10-08-2023 [facility] [place] Clinical Notes 06-02-2023 to 03-09-2024 FERN Luis - 03/09/2024 3:50 PM ESTAddendum Note - Niall Constantino KNOT SAW OPERATOR - 03/09/2024 3:50 PM ESTAddendum Note - Niall Constantino KNOT SAW OPERATOR - 03/09/2024 3:50 PM EST Note Date & Type Note Facility 03-09-2024 History of Presen t illness Narrative Reason for Appointment: Patient ID: Gayla Johnson is a 28 y.o. female who presents for Routine Visit Patient presents today for Return OB appointment. MEDICATIONS Current Outpatient Medications [...] mg, Oral, Daily ibuprofen 600 mg, Oral lactase 9,000 Units, Oral lansoprazole (PREVACID) 30 mg, Oral, Every 24 hours levalbuterol (Xopenex) 1.25 MG/3ML nebulizer solution 1 ampule, Nebulization, Every 6 hours PRN levalbuterol (Xopenex) 45 MCG/ACT inhaler 1 puff, Inhalation, Every 4 hours PRN levothyroxine (SYNTHROID, LEVOXYL) 88 mcg, Oral, Every 24 hours loperamide (IMODIUM) 2 mg, Oral magnesium oxide (MAG-OX) 400 mg, Oral, Daily montelukast (SINGULAIR) 10 mg, Oral, Nightly NAPROXEN [...] esophagitis 09/01/2022 Moderate persistent asthma without complication ([facility]) 09/01/2022 Hypothyroidism, unspecified ([facility]) 03/02/2020 Moderate asthma ([facility]) 01/11/2024 Resolved Ambulatory Problems Diagnosis Date Noted Acquired hypothyroidism ([facility]) 09/01/2022 Allergic rhinitis 09/01/2022 Amenorrhea 09/01/2022 Asthma without status asthmaticus ([facility]) 09/01/2022 Attention deficit hyperactivity disorder ([facility]) 09/01/2022 Asthma affecting , antepartum ([facility]) 09/01/2022 Binge eating disorder 09/01/2022 Difficulty concentrating 09/01/2022 Irregular menstrual cycle 09/01/2022 Left sided sciatica 09/01/2022 Insomnia 09/01/2022 Migraines (CMS/HCC) 09/01/2022 Metallic taste 09/01/2022 Mild persistent asthma without complication (CMS/HCC) 09/01/2022 MTHFR mutation 09/01/2022 Nondependent cannabis abuse 09/01/2022 Other chronic pain 09/01/2022 Seasonal allergies 09/01/2022 Skin sensation disturbance 09/01/2022 Transitory mood disturbance 09/01/2022 Verruca plantaris 09/01/2022 Past Medical History: Diagnosis Date Acid reflux ADHD (attention deficit hyperactivity disorder) ([facility]) Asthma ([facility]) GERD (gastroesophageal reflux disease) Hypothyroid ([facility]) Lactose intolerance Marijuana use Migraine ([facility]/HCC) Mild persistent asthma, uncomplicated ([facility]) Supervision of normal Thyroid disease ([facility]) HISTORY PAST MEDICAL HISTORY SOCIAL HISTORY Past Medical History: Diagnosis Date Acid reflux ADHD (attention deficit hyperactivity disorder) ([facility]/H[facility]) Asthma ([facility]) Asthma affecting , antepartum ([facility]) GERD (gastroesophageal reflux disease) Hypothyroid ([facility]) Lactose intolerance Marijuana use Migraine ([facility]/HCC) Mild persistent asthma, uncomplicated ([facility]) MTHFR mutation Seasonal allergies Supervision of normal Thyroid disease ([facility]) Social History Tobacco Use Smoking [...] Past Surgical History: Procedure Laterality Date ADENOIDECTOMY 1999 EAR TUBE REMOVAL 1996 KNEE SURGERY Left 2008 Plica band removal, left knee arthroscopy [place] BREAST REDUCTION 10/2018 TONSILLECTOMY 1998 REVIEW OF SYSTEMS Review of Systems: Review of Systems Constitutional: Negative. HENT: Negative. Eyes: Negative. Respiratory: Negative. Cardiovascular: Negative. Gastrointestinal: Negative. Genitourinary: Negative. Musculoskeletal: Negative. Skin: Negative. Neurological: Negative. All other systems reviewed and are negative. Hematological: Negative. Endocrine: Negative. Allergic/Immunologic: Negative. OBJECTIVE Objective: Physical Exam Constitutional: Appearance: Normal appearance. She is normal weight. HENT: Head: Normocephalic. Cardiovascular: Rate and Rhythm: Normal rate. Pulses: Normal pulses. Pulmonary: Effort: Pulmonary effort is normal. Breath sounds: Normal breath sounds. Abdominal: Palpations: Abdomen is soft. Musculoskeletal: General: Normal range of motion. Neurological: General: No focal deficit present. Mental Status: She is alert and oriented to person, place, and time. Psychiatric: Mood and Affect: Mood normal. Behavior: Behavior normal. Thought Content: Thought content normal. Judgment: Judgment normal. Vitals and nursing note reviewed. Vitals: Estimated body mass index is 30.88 kg/m as calculated from the following: Height as of 10/16/23: 5' 4 . Weight as of this encounter: 179 lb 14.4 oz. BP: 114/70 Patient's last menstrual period was 09/24/2023 (exact date). ASSESSMENT & PLAN ICD-10-CM 1. Encounter for follow-up ultrasound of anatomy Z36.2 US OB INCOMPLETE ANATOMY 2. Second trimester Z34.92 3. 23 weeks gestation of Z3A.23 4. Hypothyroidism, unspecified type ([facility]) E03.9 US OB SCAN FOR GROWTH 5. Diabetes mellitus screening Z13.1 CBC Glucose tolerance, 1 hour Return OB: Patient presents today for a routine obstetrics appointment. Patient is currently 24w0d . Patient states she is doing well but has complaints of being tired due to current . Patient has verbalizes frequent movement. Patient states she had missed a week of her thyroid medications and is starting to feel anxious/ depressed. She is currently back on her medication but we will also start her on celexa. Patient will reach out if symptoms change or worsen Orders Placed This Encounter Procedures US OB INCOMPLETE ANATOMY US OB SCAN FOR GROWTH CBC Glucose tolerance, 1 hour Follow Up: Patient is to return to office in 4 week for routine OB appointment. Documented by FERN Lius on behalf of: FERN Luis documented in this encounter [facility] 03-09-2024 Miscellaneous Notes Addended by: NIALL CONSTANTINO on: 03/10/2024 09:01 AM Modules accepted: Orders documented in this encounter [facility] 03-09-2024 Note Addended by: NIALL CLEVELAND on: 03/10/2024 09:01 AM Modules accepted: Orders [facility] 03-09-2024 Note Addended by: NIALL CLEVELAND on: 03/10/2024 09:01 AM Modules accepted: Orders [facility] 02-10-2024 History of Presen t illness Narrative [...] esophagitis 09/01/2022 Moderate persistent asthma without complication ([facility]) 09/01/2022 Hypothyroidism, unspecified ([facility]) 03/02/2020 Moderate asthma ([facility]) 01/11/2024 Resolved Ambulatory Problems Diagnosis Date Noted Acquired hypothyroidism ([facility]) 09/01/2022 Allergic rhinitis 09/01/2022 Amenorrhea 09/01/2022 Asthma without status asthmaticus ([facility]) 09/01/2022 Attention deficit hyperactivity disorder ([facility]) 09/01/2022 Asthma affecting , antepartum ([facility]) 09/01/2022 Binge eating disorder 09/01/2022 Difficulty concentrating 09/01/2022 Irregular menstrual cycle 09/01/2022 Left sided sciatica 09/01/2022 Insomnia 09/01/2022 Migraines ([facility]) 09/01/2022 Metallic taste 09/01/2022 Mild persistent asthma without complication ([facility]) 09/01/2022 MTHFR mutation 09/01/2022 Nondependent cannabis abuse 09/01/2022 Other chronic pain 09/01/2022 Seasonal allergies 09/01/2022 Skin sensation disturbance 09/01/2022 Transitory mood disturbance 09/01/2022 Verruca plantaris 09/01/2022 Past Medical History: Diagnosis Date Acid reflux ADHD (attention deficit hyperactivity disorder) ([facility]) Asthma ([facility]) GERD (gastroesophageal reflux disease) Hypothyroid ([facility]) Lactose intolerance Marijuana use Migraine ([facility]) Mild persistent asthma, uncomplicated ([facility]) Supervision of normal Thyroid disease ([facility]) HISTORY PAST MEDICAL HISTORY SOCIAL HISTORY Past Medical History: Diagnosis Date Acid reflux ADHD (attention deficit hyperactivity disorder) ([facility]) Asthma ([facility]) Asthma affecting , antepartum ([facility]) GERD (gastroesophageal reflux disease) Hypothyroid ([facility]) Lactose intolerance Marijuana use Migraine ([facility]) Mild persistent asthma, uncomplicated ([facility]) MTHFR mutation Seasonal allergies Supervision of normal Thyroid disease ([facility]) Social History Tobacco Use Smoking [...] Past Surgical History: Procedure Laterality Date ADENOIDECTOMY 1999 EAR TUBE REMOVAL 1996 KNEE SURGERY Left 2008 Plica band removal, left knee arthroscopy [place] BREAST REDUCTION 10/2018 TONSILLECTOMY 1998 REVIEW OF [...] Herber Coto DO documented in this encounter [facility] 06-04-2023 Telephone encount er Note Sent [facility] 06-04-2023 Miscellaneous Notes Formattin g of this note might be different from the original. Sent Patient requesting refill/[place] documented in this encounter [facility] 06-02-2023 Telephone encount er Note Patient requesting refill/[place] [facility] Evaluation note Diagnosis Attention deficit hyperactivity disorder (ADHD), combined type (CMS/HCC) documented in this encounter [facility] HealthcareEvaluation noteNo assessment information availableA[facility] Work Phone: Evaluation note* Diagnosis Well woman exam with routine gynecological exam Routine gynecological examination Screening, , for anatomic survey Encounter for anatomic survey Second trimester state, incidental 19 weeks gestation of Screen for STD (sexually transmitted disease) Screening examination for venereal disease Vaginal discharge Leukorrhea, not specified as infective headache in second trimester documented in this encounter [facility] HealthcareEvaluation note* Diagnosis Encounter for follow-up ultrasound of anatomy Second trimester state, incidental 23 weeks gestation of Hypothyroidism, unspecified type (CMS/HCC) Diabetes mellitus screening Screening for diabetes mellitus Anxiety, generalized (CMS/HCC) documented in this encounter [facility] Summary Purpose Family History No Family [...] section and content) DATE CREATED AUTHOR 11/18/2018 [facility] DATE CREATED AUTHOR AUTHOR'S ORGANIZ ATION 11/26/2018 [facility] DATE CREATED AUTHOR AUTHOR'S ORGANIZ ATION 09/09/[address] [facility] DATE CREATED AUTHOR AUTHOR'S ORGANIZ ATION 03/12/2024 [facility] EPIC DATE CREATED AUTHOR AUTHOR'S ORGANIZ ATION 03/16/2024 [facility] Reason for Visit (unrecogniz ed section and content) Reason Onset Date Comments Med Refill 06/02/2023 Reason Comments Routine Visit Care Teams (unrecognized sec tion and content) Word Processor Operator Relationship Specialty Start Date End Date Carlos Alberto Coleman MD [address] [place] [address] PCP - General Family Medicine 09/24/22 Tori Martinez NP [address] [place] [address] Nurse Practitioner Family Medicine 09/24/22 Sofie Gr NP [address] [place] [phone] Nurse Practitioner Pulmonary Disease 04/14/23 Team Status: Active Member Role Status Dates Carlos Alberto Coleman MD Primary Care Provider Active Team Status: Inactive Member Role Status Dates Carlos Alberto Coleman MD Primary Care Provider Active S tart: July 13, 2023 End: July 13, 2023 Sofie Gr NP-C Attending Provider Active Start: July 13, 2023 End: July 13, 2023 Word Processor Operator Relationship Specialty Start Date End Date Carlos Alberto Coleman MD [address] [place] [address] PCP - General Family Medicine 09/24/22 Tori Martinez NP [address] [place] [address] PCP - [facility] 05/28/23 Tori Martinez NP [address] [place] [address] Nurse Practitioner Family Medicine 09/24/22 Sofie Gr NP [address] [place] [phone] Nurse Practitioner Pulmonary Disease 04/14/23 Word Processor Operator Relationship Specialty Start Date End Date Carlos Alberto Coleman MD [address] [place] [address] PCP - General Family Medicine 09/24/22 Tori Martinez NP [address] [place] [address] PCP - [facility] 05/28/23 Tori Martinez NP [address] [place] [address] Nurse Practitioner Family Medicine 09/24/22 Sofie Gr NP [address] [place] [phone] Nurse Practitioner Pulmonary Disease 04/14/23 Word Processor Operator Relationship Specialty Start Date End Date Carlos Alberto Coleman MD [address] [place] [address] PCP - General Family Medicine 09/24/22 Tori Martinez NP [address] [place] [address] PCP - [facility] 05/28/23 Tori Martinez NP [address] [place] [address] Nurse Practitioner Family Medicine 09/24/22 Sofie Gr NP [address] [place] [phone] Nurse Practitioner Pulmonary Disease 04/14/23 Word Processor Operator Relationship Specialty Start Date End Date Carlos Alberto Coleman MD [address] [place] [address] PCP - General Family Medicine 09/24/22 Tori Martinez NP [address] [place] [address] PCP - [facility] 05/28/23 Tori Martinez NP [address] [place] [address] Nurse Practitioner Family Medicine 09/24/22 Sofie Gr NP [address] [place] [address] Nurse Practitioner Pulmonary Disease 04/14/23 Word Processor Operator Relationship Specialty Start Date End Date Carlos Alberto Coleman MD [address] [place] [address] PCP - General Family Medicine 09/24/22 Tori Martinez NP [address] [place] [address] PCP - [facility] 05/28/23 Tori Martinez NP [address] [place] [address] Nurse Practitioner Family Medicine 09/24/22 Sofie Gr NP [address] [place] [address] Nurse Practitioner Pulmonary Disease 04/14/23 Goals (unrecognized [...] BE BASED ON THE PRIMARY CLINICAL RECORDS. [facility]. provides no warranty or guarantee of the accuracy or completeness of information in this document.
--- NOTE | 2024-03-23 19:15 | US_ITS ---
[facility] [place] [id number] Patient Name: JULIÁN JIMENEZ MRN: [facility]:[id number] date: 1995 Sex: F Assigned Patient Location: US Current Patient Location: Accession/Order Number: [id number] Exam Date: 03/23/2024 19:20 Report Date: 03/24/2024 06:16 At the request of: DEE PEPE Procedure: US OB incomplete anatomy EXAM: US OB incomplete anatomy HISTORY: Follow-up Ultrasound of Anatomy Z36.2 COMPARISON: Ultrasound OB anatomy 02/14/2024 TECHNIQUE: Transabdominal ultrasound. FINDINGS: Presentation: Cephalic Heart rate: 140 bpm Placenta: Anterior, grade 1. Anatomy: Spine; no appreciable abnormality. GA: 25 weeks 6 days SERENA: 06/30/2024 US/US OB incomplete anatomy IMPRESSION: 1. Single live intrauterine . 2. Adequate visualization of the spine; no appreciable abnormality. Electronically authenticated by: YAAKOV TERAN Date: 03/24/2024 06:16
== END 2024-03-23 19:07 | disposition home or self-care (01) ==
LOC: US 19:08
PROVIDERS: PCP Family Medicine; Visit Provider Physician Assistant
DX: Z36.2 Encounter for other antenatal screening follow-up (principal); Z3A.25 25 weeks gestation of pregnancy
CPT/HCPCS: 76815

== ENCOUNTER 2024-04-08 18:54 | Outpatient (OUT) | payer BC, MEDICAID, SELFPAY ==
--- OUTSIDE RECORDS SUMMARY | 2024-04-08 18:57 | XMS_ITS | CCD ---
Author Organization [facility] Care Team Providers Care Team Leader/Research Psychologist Name Role Phone RENEE, MODE R Referring [...] ÁNGEL Attending Unavailable KIEPERT, ÁNGEL Admitting Unavailable NU MINE, DR DEANNA [employer] Unavailable PAY ., [...] Alberto Coleman MD Primary Care Provider Michelle CLAIMS ADJUSTER, Tori Unavailable Chaya CLAIMS ADJUSTER, Sofie R Unavailable [phone] MD Carlos Alberto Coleman Primary Care Provider HEATHER Gr Attending Provider Chaya CLAIMS ADJUSTER, Sofie R Unavailable Michelle CLAIMS ADJUSTER, Tori Unavailable SOFIE GR Attending Unavailable SAMUELCHOL, TORI Attending Unavailable SAMUELCHOL, TORI Attending Unavailable NNAMDI, HERBER Attending Unavailable NNAMDI, HERBER Attending Unavailable TORI MARTINEZ Attending Unavailable TORI PEPE Attending Unavailable Sofie Gr Attending Unavailable Sofie Gr Admitting Unavailable Carlos Alberto Coleman Primary Care Unavailable Allergies Allergy Classification Reported Allergen(s) Allergy Type Date of Onset Reaction(s) Facility (1 source) Cefuroxime Drug Allergy 04-04-20 22 [facility] (2 sources) Ciprofloxacin Drug Allergy 04-03-20 16 [facility] (2 sources) Doxycycline Drug Allergy 05-20-19 21 vomiting [facility] (1 source) Flupenthixol Drug Allergy 04-04-20 22 [facility] (11 sources) Cefuroxime Drug Allergy 05-20-19 21 Rash [facility] (10 sources) Ciprofloxacin Drug Allergy 09-02-19 23 Shortness of breath [facility] (10 sources) Ciprofloxacin Drug Allergy 09-02-19 23 Shortness of breath [facility] (10 sources) cloNIDine Drug Allergy 03-14-20 21 [facility] (10 sources) cloNIDine Drug Allergy 09-02-19 23 [facility] (10 sources) Doxycycline Drug Allergy 05-20-19 21 GI intolerance [facility] (10 sources) Gluten Propensity to adverse reactions 11-11-19 19 [facility] (10 sources) Lactose (non-medical use) Allergy to substance 09-02-19 23 [facility] (10 sources) Lactose (non-medical use) Drug Intolerance 11-11-19 19 [facility] (10 sources) Octacosanol Drug Intolerance 11-11-19 19 [facility] (10 sources) Other Allergy to substance 11-11-19 19 [facility] (10 sources) Silver Allergy to substance 09-02-19 23 [facility] (10 sources) Wound Dressing Adhesive Drug Allergy 09-02-19 23 [facility] (1 source) Cefuroxime Drug Allergy 05-20-19 21 [facility] Repository (1 source) Ciprofloxacin Drug Allergy 05-20-19 21 [facility] Repository (1 source) Doxycycline Drug Allergy 05-20-19 21 [facility] Rep[facility] Medications Current Medications Medication Drug Class(es) Dates Sig (Normalized) Sig (Original) [id number] actuat albuterol 0.09 mg/actuat metered dose inhaler (10 sources) beta2-Adrenergic Agonist Start: 10-16-2023 End: 04-13-2024 [...] sulfate 5 mg extended release oral capsule (19 sources) Central Nervous System Stimulant Start: 10-23-2023 [...] mg / cholecalciferol 0.005 mg oral tablet (10 sources) Vitamin D Calcium Citrate-Vitamin D (Calcium [...] 03/10/2025 Active famotidine 20 mg oral tablet (10 sources) Histamine-2 Receptor Antagonist Start: 10-16-2023 End: [...] Active fexofenadine hydrochloride 180 mg oral tablet (10 sources) Histamine-1 Receptor Antagonist take 1 tablet [...] 01/17/2025 Active ibuprofen 600 mg oral tablet (10 sources) Nonsteroidal Anti-inflammatory Drug ibuprofen 600 MG tablet Take 600 mg by mouth. Active lactase 9000 unt oral tablet (10 sources) lactase 9000 uni ts tablet Take 9,000 Units by mouth. Active lansoprazole 30 mg delayed release oral capsule (10 sources) Proton Pump Inhibitor Start: End: take [...] actuat levalbuterol 0.045 mg/actuat metered dose inhaler (19 sources) beta2-Adrenergic Agonist Start: 10-16-2023 End: 01-14-2024 levalbuterol (Xopenex) 1.25 MG/3ML nebulizer solution Indications: [...] Active levothyroxine sodium 0.088 mg oral tablet (10 sources) l-Thyroxine Start: 10-16-2023 End: 04-13-2024 take [...] Active loperamide hydrochloride 2 mg oral capsule (10 sources) Opioid Agonist loperamide (Imod ium) 2 MG capsule Take 2 mg by mouth. Active montelukast 10 mg oral tablet (10 sources) Leukotriene Receptor Antagonist Start: 10-16-19 End: [...] 90 tablet 1 04/16/2023 10/13/2023 Active Naproxen (10 sources) Nonsteroidal Anti-inflammatory Drug take 2 tablets [...] 02/10/2024 Active ubrogepant 100 mg oral tablet (9 sources) Start: 04-24-2023 Ubrelvy 100 MG tablet [...] Problem Date Documented Date Episodic/Chronic Anxiety disorders (12 sources) Anxiety; Translations: [Anxiety disorder, unspecified] Onset: 09-01-2022 09-01-2022 Chronic Asthma (20 sources) Uncomplicated moderate persistent asthma; Translations: [Moderate persistent asthma, uncomplicated] Onset: 09-01-2022 Resolved: 11-13-2022 09-01-2022 Chronic Attention-deficit, conduct, and disruptive behavior disorders (1 source) Attention deficit hyperactivity disorder, combined type; Translations: [Attention-deficit hyperactivity disorder, combined type] 06-02-2023 Chronic Esophageal disorders (10 sources) Gastroesophageal reflux disease without esophagitis; Translations: [...] vagina] 02-10-2024 Episodic Other nervous system disorders (10 sources) Chronic pain; Translations: [Other chronic pain] [...] Episodic/Chronic Attention-deficit, conduct, and disruptive behavior disorders (10 sources) Attention deficit hyperactivity disorder; Translations: [Attention-deficit hyperactivity disorder, unspecified type] Onset: 09-01-2022 Resolved: 11-13-2022 11-13-2022 Chronic Diabetes or abnormal glucose tolerance complicating ; childbirth; or the puerperium (4 sources) Abnormal glucose complicating ; Translations: [ABNORMAL GLUCOSE COMP ] Onset: 04-16-2022 Episodic Headache; including migraine (10 sources) Migraine; Translations: [Migraine, unspecified, not intractable, without status migrainosus] Onset: 09-01-2022 Resolved: 11-13-2022 11-13-2022 Chronic Menstrual disorders (20 sources) Irregular menstruation, unspecified; Translations: [Amenorrhea] Onset: 12-14-2021 Resolved: 11-13-2022 Chronic Miscellaneous mental health disorders (10 sources) Binge eating disorder; Translations: [Binge eating disorder] Onset: 09-01-2022 Resolved: 11-13-2022 11-13-2022 Chronic Miscellaneous mental health disorders (10 sources) Transitory mood disturbance; Translations: [ mood [...] TRI] Onset: 11-30-2021 Episodic Other complications of (10 sources) Asthma in ; Translations: [Diseases of the respiratory system complicating , unspecified trimester] Onset: 09-01-2022 Resolved: 11-13-2022 11-13-2022 Episodic Other nervous system disorders (10 sources) Poor concentration; Translations: [Attention and concentration deficit] Onset: 09-01-2022 Resolved: 11-13-2022 11-13-2022 Chronic Other nervous system disorders (10 sources) Metallic taste; Translations: [Other disturbances of smell and taste] Onset: 09-01-2022 Resolved: 11-13-2022 11-13-2022 Episodic Other nervous system disorders (10 sources) Skin sensation disturbance; Translations: [Unspecified disturbances of skin sensation] Onset: 09-01-2022 Resolved: 11-13-2022 11-13-2022 Episodic Other upper respiratory disease (10 sources) Allergic rhinitis; Translations: [Allergic rhinitis, unspecified] Onset: 09-01-2022 Resolved: 11-13-2022 11-13-2022 Chronic Other upper respiratory disease (10 sources) Seasonal allergy; Translations: [Other seasonal allergic [...] ] Onset: 11-30-2021 Episodic Residual codes; unclassified (10 sources) Insomnia; Translations: [Insomnia, unspecified] Onset: 09-01-2022 Resolved: 11-13-2022 11-13-2022 Episodic Residual codes; unclassified (10 sources) Hereditary disorder of endocrine system; Translations: [Genetic susceptibility to other disease] Onset: 09-01-2022 Resolved: 11-13-2022 11-13-2022 Episodic Spondylosis; intervertebral disc disorders; other back problems (10 sources) Sciatica; Translations: [Sciatica, left side] Onset: 09-01-2022 Resolved: 11-13-2022 11-13-2022 Episodic Substance-related disorders (10 sources) Nondependent cannabis abuse ; Translations: [Cannabis abuse, uncomplicated] Onset: 09-01-2022 Resolved: 11-13-2022 11-13-2022 Chronic Viral infection (10 sources) Verruca plantaris; Translations: [Plantar wart] Onset: 09-01-2022 Resolved: 11-13-2022 11-13-2022 Episodic Results Test Name Value Interpretation Reference Range Facility ALL CBC WITH AUTO DIFFon BASOPHILS ABSOLUTE AUTO 0 [facility] Basophils/100 WBC (Bld) 0.2 % 0.2 - 2.0 % [facility] Eosinophils/100 WBC (Bld) 0.7 % Low 0.9 - 7.0 % [facility] Erythrocyte distribution width (RBC) [Ratio] 12.3 % 11.0 - 15.0 % [facility] Hematocrit (Bld) [Volume fraction] 35.3 % Low 36.0 - 48.0 % [facility] Hemoglobin (Bld) [Mass/Vol] 11.8 g/dL Low 12.0 - 16.0 g/dL [facility] IMMATURE GRANULOCYTES ABS AUTO 0.04 High [facility] Immature granulocytes/100 WBC (Bld) 0.5 % 0.0 - 0.5 % [facility] Interpretation and review of laboratory results Abnormal [facility] LYMPHOCYTES ABSOLUTE AUTO 1.5 [facility] Lymphocytes/100 WBC (Bld) 17.1 % Low 20.5 - 60.0 % [facility] MCH (RBC) [Entitic mass] 31.1 pg 26.7 - 34.0 pg [facility] MCHC (RBC) [Mass/Vol] 33.4 g/dL 29.9 - 35.2 g/dL [facility] MCV (RBC) [Entitic vol] 93.1 fL 81.0 - 99.0 fL [facility] MONOCYTES ABSOLUTE AUTO 0.6 [facility] Monocytes/100 WBC (Bld) 7.2 % 1.7 - 12.0 % [facility] NEUTROPHILS ABSOLUTE AUTO 6.5 [facility] Neutrophils/100 WBC (Bld) 74.3 % 43.0 - 75.0 % [facility] Platelet mean volume (Bld) [Entitic vol] 10.6 fL 9.5 - 13.5 fL [facility] TB EO # 0.1 [facility] PLT 178 [facility] RBC 3.79 Low [facility] WBC 8.8 [facility] IGP,APTIMA HPV,AGE GDLNon AGE GDLN ACOG TESTING Note . [facility] Comment on above: TESTS RESULT FLAG UN ITS REF RANGE LAB Clinician Provided Cytology Information Source.............Cervix No. of containers..01 ThinPrep Vial Age Algo ACOG Sonja... FLAG LEGEND: L-Low Normal,H-High Normal,LL-Alert Low,HH-Alert High <-Panic Low,>-Panic High,A-Abnormal,AA-Critical Abnormal Performed at: 01 =[address] [address] Radha Browne MD, HPV APTIMA Negative Negative [facility] Comment on above: This nucleic acid am plification test detects fourteen high- risk HPV types (16,18,31,33,35,39,45,51,52,56,58,59,66,68) without differentiation. Performed at: =[address] [id number] Hospice Superintendent: Radha Browne MD, Phone: [phone] Performed at: [address] [id number] Hospice Superintendent: aRdha Browne MD, Phone: [phone] IGP, APTIMA HPV, RFX 16/18,45 Note . [facility] Comment on above: TESTS RESULT FLAG UN ITS REF RANGE LAB DIAGNOSIS: 02 NEGATIVE FOR INTRAEPITHELIAL LESION OR MALIGNANCY. Specimen adequacy: 02 Satisfactory for evaluation. No endocervical component is identified. Performed by: 02 Danie Vargas, Medical Advisor (ASCP) . 02 Note: Note 02 The [...] Low,>-Panic High,A-Abnormal,AA-Critical Abnormal Performed at: [address] [facility] [address] Radha Browne MD, SPATULA-ALONE CERVIX [facility] Cytology Cervical or vaginal smear or scraping studyon 02-10-2024 [facility] Urinalysis macro (dipstick) panel (U)on 02-10-2024 Bilirubin, UA Negative Negative - 4(70) +++ mg/dL [facility] Blood, UA Negative Negative - 50 Mendel/mcL [facility] Clarity, UA Clear [facility] Color, UA Yellow [facility] Glucose, UA Negative Negative - 2000(110) ++++ mg/dL [facility] Interpretation and review of laboratory results Abnormal [facility] Ketones, UA Negative Negative - 160(16) ++++ mg/dL [facility] Leukocytes, UA Trace Negative - 500+++ Leighann/mcL [facility] Nitrite, UA Negative Negative - Positive [facility] pH, UA 7 5 - 9 [facility] Protein, UA Negative Negative - 2000(20) ++++ mg/dL [facility] Spec Grav, UA 1.02 1 - 1.03 [facility] Urobilinogen, UA 0.2 0.2 - 12 mg/dL [facility] BioFire Not Detectedon 07-12 BioFire Not Detected Not detected Normal Not Detecte Maira flaherty [facility] Comment on above: Result Comment: This is a duplicate RP2.1 COVID (PCR) result to be used for statistical tracking purpose only. PERFORMED BY: [facility] [address] [place] [address] PATHOLOGIST EMISSIONS REPAIR TECHNICIAN CATY NEELY M.D. Performed By: #### R RODGER PANEL UPP., BIOFIRECOVNOTDE #### [facility] [address] COVID-19 Detected/Not Detect edOrdered By: Sofie Gr on 07-13-2023 SARS-CoV-2 (COVID-19) RNA JUAN+non-probe Ql (Nph) Not detected Not Detecte [facility] Comment on above: This is a [...] Influenza A H3 Blank Space PERFORMED BY: [facility] [address] [place] [address] PATHOLOGIST EMISSIONS REPAIR TECHNICIAN CATY NEELY M.D. Normal [facility] Comment on above: Performed By: #### R RODGER PANEL UPP., BIOFIRECOVNOTDE #### [facility] [address] Respiratory pathogens DNA an d RNA panel - Nasopharynx by JUAN with non-probe detectionOrdered By: Sofie Gr on 07-13-2023 Respiratory pathogens DNA and RNA panel JUAN+non-probe (Nph) [facility] CBC AUTO DIFFon 06-25-2022 BASO # 0.0 103/ul Normal 0.0-0.1 [facility] Comment on above: Performed By: #### C BC #### [facility] [address] [address] [address] Garland Kholi Basophils/100 WBC (Bld) 0.4 % Normal 0.2-2.0 [facility] Comment on above: Performed By: #### C BC #### [facility] [address] [address] [address] Garland Kohli EO # 0.1 103/ul Normal 0.0-0.7 [facility] Comment on above: Performed By: #### C BC #### [facility] [address] [address] [address] Garland Kohli Eosinophils/100 WBC (Bld) 0.9 % Normal 0.9-7.0 [facility] Comment on above: Performed By: #### C BC #### [facility] [address] [address] [address] Garland Kohli Erythrocyte distribution width (RBC) [Ratio] 12.4 % Normal 11.0-15.0 [facility] Comment on above: Performed By: #### C BC #### [facility] [address] [address] [address] Garland Kohli Hematocrit (Bld) [Volume fraction] 31.4 % Critically low 36.0-48.0 [facility] Comment on above: Performed By: #### C BC #### [facility] [address] [address] [address] Garland Kohli Hemoglobin (Bld) [Mass/Vol] 10.4 g/dL Critically low 12.0-16.0 [facility] Comment on above: Performed By: #### C BC #### [facility] [address] [address] [address] Garland Kohli IG # 0.04 10e3/ul Critically high 0.00-0.03 [facility] Comment on above: Performed By: #### C BC #### [facility] [address] [place] [address] Dr. Garland Kohli IG % 0.4 % Normal 0.0-0.5 [facility] Comment on above: Performed By: #### C BC #### [facility] [address] [place] [address] Dr. Garland Kohli LYMPH # 2.0 103/ul Normal 1.2-3.8 [facility] Comment on above: Performed By: #### C BC #### [facility] [address] [place] [address] Dr. Garland Kohli Lymphocytes/100 WBC (Bld) 22.1 % Normal 20.5-60.0 [facility] Comment on above: Performed By: #### C BC #### [facility] [address] [place] [address] Dr. Garland Kohli MANUAL DIFF REQ NO Normal [facility] Comment on above: Performed By: #### C BC #### [facility] [address] [place] [address] Dr. Garland Kohli MCH (RBC) [Entitic mass] 30.1 pg Normal 26.7-34.0 [facility] Comment on above: Performed By: #### C BC #### [facility] [address] [place] [address] Dr. Garland Kohli MCHC (RBC) [Mass/Vol] 33.1 g/dL Normal 29.9-35.2 [facility] Comment on above: Performed By: #### C BC #### [facility] [address] [place] [address] Dr. Garland Kohli MCV (RBC) [Entitic vol] 91.0 fL Normal 81.0-99.0 [facility] Comment on above: Performed By: #### C BC #### [facility] [address] [place] [address] Dr. Garland Kohli MONO # 0.8 103/ul Normal 0.3-0.8 [facility] Comment on above: Performed By: #### C BC #### [facility] [address] [place] [address] Dr. Garland Kohli Monocytes/100 WBC (Bld) 8.8 % Normal 1.7-12.0 [facility] Comment on above: Performed By: #### C BC #### [facility] [address] [place] [address] Dr. Garland Kohli NEUT # 6.0 103/ul Normal 1.4-6.5 [facility] Comment on above: Performed By: #### C BC #### [facility] [address] [place] [address] Dr. Garland Kohli Neutrophils/100 WBC (Bld) 67.4 % Normal 43.0-75.0 [facility] Comment on above: Performed By: #### C BC #### [facility] [address] [place] [address] Dr. Garland Kohli Platelet mean volume (Bld) [Entitic vol] 12.0 fL Normal 9.5-13.5 [facility] Comment on above: Performed By: #### C BC #### [facility] [address] [place] [address] Dr. Garland Kohli PLT 151 103/ul Normal 150-450 [facility] Comment on above: Performed By: #### C BC #### [facility] [address] [place] [address] Dr. Garland Kohli RBC 3.45 106/ul Critically low 4.20-5.40 [facility] Comment on above: Performed By: #### C BC #### [facility] [address] [place] [address] Dr. Garland Kohli WBC 8.9 103/ul Normal 4.0-11.0 [facility] Comment on above: Performed By: #### C BC #### [facility] [address] [place] [address] Dr. Garland Kohli CBC AUTO DIFFon 06-23-2022 BASO # 0.0 103/ul Normal 0.0-0.1 [facility] Comment on above: Performed By: #### C BC #### [facility] [address] [place] [address] Dr. Garland Kohli Basophils/100 WBC (Bld) 0.4 % Normal 0.2-2.0 [facility] Comment on above: Performed By: #### C BC #### [facility] [address] [place] [address] Dr. Garland Kohli EO # 0.1 103/ul Normal 0.0-0.7 [facility] Comment on above: Performed By: #### C BC #### [facility] [address] [place] [address] Dr. Garland Kohli Eosinophils/100 WBC (Bld) 0.8 % Critically low 0.9-7.0 [facility] Comment on above: Performed By: #### C BC #### [facility] [address] [place] [address] Dr. Garland Kohli Erythrocyte distribution width (RBC) [Ratio] 12.4 % Normal 11.0-15.0 [facility] Comment on above: Performed By: #### C BC #### [facility] [address] [place] [address] Dr. Garland Kohli Hematocrit (Bld) [Volume fraction] 34.5 % Critically low 36.0-48.0 [facility] Comment on above: Performed By: #### C BC #### [facility] [address] [place] [address] Dr. Garland Kohli Hemoglobin (Bld) [Mass/Vol] 11.6 g/dL Critically low 12.0-16.0 [facility] Comment on above: Performed By: #### C BC #### [facility] [address] [place] [address] Dr. Garland Kohli IG # 0.04 10e3/ul Critically high 0.00-0.03 [facility] Comment on above: Performed By: #### C BC #### [facility] [address] [place] [address] Dr. Garland Kohli IG % 0.5 % Normal 0.0-0.5 [facility] Comment on above: Performed By: #### C BC #### [facility] [address] [place] [address] Dr. Garland Kohli LYMPH # 1.3 103/ul Normal 1.2-3.8 [facility] Comment on above: Performed By: #### C BC #### [facility] [address] [place] [address] Dr. Garland Kohli Lymphocytes/100 WBC (Bld) 17.6 % Critically low 20.5-60.0 [facility] Comment on above: Performed By: #### C BC #### [facility] [address] [place] [address] Dr. Garland Kohli MANUAL DIFF REQ NO Normal [facility] Comment on above: Performed By: #### C BC #### [facility] [address] [place] [address] Dr. Garland Kohli MCH (RBC) [Entitic mass] 29.6 pg Normal 26.7-34.0 [facility] Comment on above: Performed By: #### C BC #### [facility] [address] [place] [address] Dr. Garland Kohli MCHC (RBC) [Mass/Vol] 33.6 g/dL Normal 29.9-35.2 [facility] Comment on above: Performed By: #### C BC #### [facility] [address] [place] [address] Dr. Garland Kohli MCV (RBC) [Entitic vol] 88.0 fL Normal 81.0-99.0 [facility] Comment on above: Performed By: #### C BC #### [facility] [address] [place] [address] Dr. Garland Kohli MONO # 0.9 103/ul Critically high 0.3-0.8 [facility] Comment on above: Performed By: #### C BC #### [facility] [address] [place] [address] Dr. Garland Kohli Monocytes/100 WBC (Bld) 11.7 % Normal 1.7-12.0 [facility] Comment on above: Performed By: #### C BC #### [facility] [address] [place] [address] Dr. Garland Kohli NEUT # 5.1 103/ul Normal 1.4-6.5 [facility] Comment on above: Performed By: #### C BC #### [facility] [address] [place] [address] Dr. Garland Kohli Neutrophils/100 WBC (Bld) 69.0 % Normal 43.0-75.0 [facility] Comment on above: Performed By: #### C BC #### [facility] [address] [place] [address] Dr. Garland Kohli Platelet mean volume (Bld) [Entitic vol] 12.1 fL Normal 9.5-13.5 [facility] Comment on above: Performed By: #### C BC #### [facility] [address] [place] [address] Dr. Garland Kohli PLT 193 103/ul Normal 150-450 [facility] Comment on above: Performed By: #### C BC #### [facility] [address] [place] [address] Dr. Garland Kohli RBC 3.92 106/ul Critically low 4.20-5.40 [facility] Comment on above: Performed By: #### C BC #### [facility] [address] [place] [address] Dr. Garland Kohli WBC 7.4 103/ul Normal 4.0-11.0 [facility] Comment on above: Performed By: #### C BC #### [facility] [address] [place] [address] Dr. Garland Kohli DRUG SCREEN RAPID (URINE)on 06-23-2022 AMP Negative Normal NEGATIVE [facility] Comment on above: Performed By: #### D RUGRPD #### [facility] [address] [place] [address] Dr. Garland Kohli BAR Negative Normal NEGATIVE [facility] Comment on above: Performed By: #### D RUGRPD #### [facility] [address] [place] [address] Dr. Garland Kohli BUP Negative Normal NEGATIVE [facility] Comment on above: Performed By: #### D RUGRPD #### [facility] [address] [place] [address] Dr. Garland Kohli BZO Negative Normal NEGATIVE [facility] Comment on above: Performed By: #### D RUGRPD #### [facility] [address] [place] [address] Dr. Garland Kohli JUANI Negative Normal NEGATIVE [facility] Comment on above: Performed By: #### D RUGRPD #### [facility] [address] [place] [address] Dr. Garland Kohli CUT-OFFS SEE BELOW Normal [facility] Comment on above: Result Comment: AMP (Amphetamine): 500ng/mL, BAR (Barbituates): 200 ng/mL, BZO (Benzodiazepines): 150 ng/mL, BUP (Buprenorphine): 10 ng/mL, JUANI (Cocaine): 150 ng/mL, mAMP (Methamphetamine): 500 ng/mL, MTD (Methadone): 200 ng/mL, OPI (Opiates): 100 ng/mL, OXY (Oxycodone): 100 ng/mL, PCP (Phencyclidine): 25 ng/mL, PPX (Propoxyphene): 300 ng/mL, THC (Cannabinoids): 50 ng/mL, TCA (Trycyclic Antidepressants): 300 ng/mL Performed By: #### D RUGRPD #### [facility] [address] [place] [address] Dr. Garland Kohli DRUG CUT HEADER DRUG CLASS TEST SYSTEM CUT-OFF CONCENTRATIONS ARE FOLLOWS: Normal [facility] Comment on above: Performed By: #### D RUGRPD #### [facility] [address] [place] [address] Dr. Garland Kohli mAMP Negative Normal NEGATIVE [facility] Comment on above: Performed By: #### D RUGRPD #### [facility] [address] [place] [address] Dr. Garland Kohli MTD Negative Normal NEGATIVE [facility] Comment on above: Performed By: #### D RUGRPD #### [facility] [address] [place] [address] Dr. Garland Kohli OPI Negative Normal NEGATIVE [facility] Comment on above: Performed By: #### D RUGRPD #### [facility] [address] [place] [address] Dr. Garland Kohli OXY Negative Normal NEGATIVE [facility] Comment on above: Performed By: #### D RUGRPD #### [facility] [address] [place] [address] Dr. Garland Kohli PCP Negative Normal NEGATIVE [facility] Comment on above: Performed By: #### D RUGRPD #### [facility] [address] [place] [address] Dr. Garland Kohli PPX Negative Normal NEGATIVE [facility] Comment on above: Performed By: #### D RUGRPD #### [facility] [address] [place] [address] Dr. Garland Kohli TCA Negative Normal NEGATIVE [facility] Comment on above: Performed By: #### D RUGRPD #### [facility] [address] [place] [address] Dr. Garland Kohli THC Negative Normal NEGATIVE [facility] Comment on above: Performed By: #### D RUGRPD #### [facility] [address] [place] [address] Dr. Garland Kohli TYPE AND SCREENon 06-23-2022 TYPE AND SCREEN Negative Normal [facility] Comment on above: Performed By: #### T NS #### [facility] [address] [place] [address] Dr. Garland Kohli FREE T4on 06-07-2022 Free T4 [Mass/Vol] 0.76 ng/dL Normal 0.76-1.46 [facility] Comment on above: Performed By: #### C BC #### [facility] [address] [place] [address] Dr. Garland Kohli TSHon 06-07-2022 TSH 1.393 uIU/mL Normal 0.358-3.740 [facility] Comment on above: Performed By: #### T SH #### [facility] [address] [place] [address] Dr. Garland Kohli GROUP B STREP CULTUREon S. agalactiae Ag Ql (Unsp spec) Culture Observations: NEGATIVE FOR GROUP B STREPTOCOCCUS. Normal [facility] Comment on above: Performed By: #### C BC #### [facility] [address] [place] [address] Dr. Garland Kohli GTT 3 HR PREGon 04-16-2022 Glucose [Mass/Vol] 87 mg/dL Normal 74-106 [facility] Comment on above: Performed By: #### G TT3P #### [facility] [address] [place] [address] Dr. Garland Kohli Glucose [Mass/Vol] 148 mg/dL Normal [facility] Comment on above: Performed By: #### G TT3P #### [facility] [address] [place] [address] Dr. Garland Kohli Glucose [Mass/Vol] 128 mg/dL Normal [facility] Comment on above: Performed By: #### G TT3P #### [facility] [address] [place] [address] Dr. Garland Kohli Glucose [Mass/Vol] 105 mg/dL Normal [facility] Comment on above: Performed By: #### G TT3P #### [facility] [address] [place] [address] Dr. Garland Kohli CBC AUTO DIFFon 04-04-2022 BASO # 0.0 103/ul Normal 0.0-0.1 [facility] Comment on above: Performed By: #### G TT3P #### [facility] [address] [place] [address] Dr. Garland Kohli Basophils/100 WBC (Bld) 0.2 % Normal 0.2-2.0 [facility] Comment on above: Performed By: #### G TT3P #### [facility] [address] [place] [address] Dr. Garland Kohli EO # 0.0 103/ul Normal 0.0-0.7 [facility] Comment on above: Performed By: #### G TT3P #### [facility] [address] [place] [address] Dr. Garland Kohli Eosinophils/100 WBC (Bld) 0.4 % Critically low 0.9-7.0 [facility] Comment on above: Performed By: #### G TT3P #### [facility] [address] [place] [address] Dr. Garland Kohli Erythrocyte distribution width (RBC) [Ratio] 12.9 % Normal 11.0-15.0 [facility] Comment on above: Performed By: #### G TT3P #### [facility] [address] [place] [address] Dr. Garland Kohli Hematocrit (Bld) [Volume fraction] 32.5 % Critically low 36.0-48.0 [facility] Comment on above: Performed By: #### G TT3P #### [facility] [address] [place] [address] Dr. Garland Kohli Hemoglobin (Bld) [Mass/Vol] 11.2 g/dL Critically low 12.0-16.0 [facility] Comment on above: Performed By: #### G TT3P #### [facility] [address] [place] [address] Dr. Garland Kohli IG # 0.07 10e3/ul Critically high 0.00-0.03 [facility] Comment on above: Performed By: #### G TT3P #### [facility] [address] [place] [address] Dr. Garland Kohli IG % 0.8 % Critically high 0.0-0.5 [facility] Comment on above: Performed By: #### G TT3P #### [facility] [address] [place] [address] Dr. Garland Kohli LYMPH # 0.9 103/ul Critically low 1.2-3.8 [facility] Comment on above: Performed By: #### G TT3P #### [facility] [address] [place] [address] Dr. Garland Kohli Lymphocytes/100 WBC (Bld) 10.4 % Critically low 20.5-60.0 [facility] Comment on above: Performed By: #### G TT3P #### [facility] [address] [place] [address] Dr. Garland Kohli MANUAL DIFF REQ NO Normal [facility] Comment on above: Performed By: #### G TT3P #### [facility] [address] [place] [address] Dr. Garland Kohli MCH (RBC) [Entitic mass] 31.4 pg Normal 26.7-34.0 [facility] Comment on above: Performed By: #### G TT3P #### [facility] [address] [place] [address] Dr. Garland Kohli MCHC (RBC) [Mass/Vol] 34.5 g/dL Normal 29.9-35.2 [facility] Comment on above: Performed By: #### G TT3P #### [facility] [address] [place] [address] Dr. Garland Kohli MCV (RBC) [Entitic vol] 91.0 fL Normal 81.0-99.0 [facility] Comment on above: Performed By: #### G TT3P #### [facility] [address] [place] [address] Dr. Garland Kohli MONO # 1.1 103/ul Critically high 0.3-0.8 [facility] Comment on above: Performed By: #### G TT3P #### [facility] [address] [place] [address] Dr. Garland Kohli Monocytes/100 WBC (Bld) 12.5 % Critically high 1.7-12.0 [facility] Comment on above: Performed By: #### G TT3P #### [facility] [address] [place] [address] Dr. Garland Kohli NEUT # 6.3 103/ul Normal 1.4-6.5 [facility] Comment on above: Performed By: #### G TT3P #### [facility] [address] [place] [address] Dr. Garland Kohli Neutrophils/100 WBC (Bld) 75.7 % Critically high 43.0-75.0 [facility] Comment on above: Performed By: #### G TT3P #### [facility] [address] [place] [address] Dr. Garland Kohli Platelet mean volume (Bld) [Entitic vol] 10.5 fL Normal 9.5-13.5 [facility] Comment on above: Performed By: #### G TT3P #### [facility] [address] [place] [address] Dr. Garland Kohli PLT 181 103/ul Normal 150-450 [facility] Comment on above: Performed By: #### G TT3P #### [facility] [address] [place] [address] Dr. Garland Kohli RBC 3.57 106/ul Critically low 4.20-5.40 [facility] Comment on above: Performed By: #### G TT3P #### [facility] [address] [place] [address] Dr. Garland Kohli WBC 8.4 103/ul Normal 4.0-11.0 [facility] Comment on above: Performed By: #### G TT3P #### [facility] [address] [place] [address] Dr. Garland Kohli CTA CHEST WO W [...] DEANNA LINN Date: 2022-04-04 15:25 Normal [facility] PROF CHEM 8 (BAS METB)on Anion gap [Moles/Vol] 13.2 mmol/L Normal [facility] Comment on above: Performed By: #### G TT3P #### [facility] [address] [place] [address] Dr. Garland Kohli Calcium [Mass/Vol] 8.5 mg/dL Normal 8.5-10.1 [facility] Comment on above: Performed By: #### G TT3P #### [facility] [address] [place] [address] Dr. Garland Kohli Chloride [Moles/Vol] 103 mmol/L Normal 98-107 [facility] Comment on above: Performed By: #### G TT3P #### [facility] [address] [place] [address] Dr. Garland Kohli CO2 [Moles/Vol] 23.4 mmol/L Normal 21.0-32.0 [facility] Comment on above: Performed By: #### G TT3P #### [facility] [address] [place] [address] Dr. Garland Kohli Creatinine [Mass/Vol] 0.43 mg/dL Critically low 0.55-1.02 [facility] Comment on above: Performed By: #### G TT3P #### [facility] [address] [place] [address] Dr. Garland Kohli EGFR-AF IRAQI >60 Normal >=60 [facility] Comment on above: Performed By: #### G TT3P #### [facility] [address] [place] [address] Dr. Garland Kohli EGFR-NON AF IRAQI >60 Normal >=60 [facility] Comment on above: Performed By: #### G TT3P #### [facility] [address] [address] [address] Garland Kohli Glucose [Mass/Vol] 108 mg/dL Critically high 74-106 T [facility] Comment on above: Performed By: #### G TT3P #### [facility] [address] [address] [address] Garland Kohli Potassium [Moles/Vol] 3.6 mmol/L Normal 3.5-5.1 [facility] Comment on above: Performed By: #### G TT3P #### [facility] [address] [address] [address] Garland Kohli Sodium [Moles/Vol] 136 mmol/L Normal 136-145 [facility] Comment on above: Performed By: #### G TT3P #### [facility] [address] [address] [address] Garland Kohli Urea nitrogen [Mass/Vol] 5.0 mg/dL Critically low 7.0-18.0 [facility] Comment on above: Performed By: #### G TT3P #### [facility] [address] [address] [address] Garland Kohli Urea nitrogen/Creatinine [Mass ratio] 11.6 mg/mg Normal [facility] Comment on above: Performed By: #### G TT3P #### [facility] [address] [address] [address] Garland Kohli TROPONIN, HIGH SENSITIVITYon 04-04-2022 HSTROP 9.3 pg/mL Normal 4.0-51.3 [facility] Comment on above: Result Comment: CUT- OFF POINTS HAVE BEEN ESTABLISHED BASED ON THE FOURTH UNIVERSAL DEFINITIONS OF MYOCARDIAL INFARCTION. THE UPPER REFERENCE LIMIT (URL) OF TROPONIN, DEFINED THE 99TH PERCENTILE OF cTnI DISTRIBUTION IN A REFERENCE POPULATION, HAS BEEN CONFIRMED THE DECISION THRESHOLD FOR [place] DIAGNOSIS. Performed By: #### G TT3P #### [facility] [address] [address] [address] Garland Kohli CBC AUTO DIFFon 03-26-2022 BASO # 0.0 103/ul Normal 0.0-0.1 [facility] Comment on above: Performed By: #### G TT3P #### [facility] [address] [place] [address] Dr. Garland Kohli Basophils/100 WBC (Bld) 0.2 % Normal 0.2-2.0 [facility] Comment on above: Performed By: #### G TT3P #### [facility] [address] [place] [address] Dr. Garland Kohli EO # 0.1 103/ul Normal 0.0-0.7 [facility] Comment on above: Performed By: #### G TT3P #### [facility] [address] [place] [address] Dr. Garland Kohli Eosinophils/100 WBC (Bld) 1.0 % Normal 0.9-7.0 [facility] Comment on above: Performed By: #### G TT3P #### [facility] [address] [place] [address] Dr. Garland Kohli Erythrocyte distribution width (RBC) [Ratio] 12.8 % Normal 11.0-15.0 [facility] Comment on above: Performed By: #### G TT3P #### [facility] [address] [place] [address] Dr. Garland Kohli Hematocrit (Bld) [Volume fraction] 36.2 % Normal 36.0-48.0 [facility] Comment on above: Performed By: #### G TT3P #### [facility] [address] [place] [address] Dr. Garland Kohli Hemoglobin (Bld) [Mass/Vol] 12.2 g/dL Normal 12.0-16.0 [facility] Comment on above: Performed By: #### G TT3P #### [facility] [address] [place] [address] Dr. Garland Kohli IG # 0.08 10e3/ul Critically high 0.00-0.03 [facility] Comment on above: Performed By: #### G TT3P #### [facility] [address] [place] [address] Dr. Garland Kohli IG % 0.9 % Critically high 0.0-0.5 [facility] Comment on above: Performed By: #### G TT3P #### [facility] [address] [place] [address] Dr. Garland Kohli LYMPH # 1.7 103/ul Normal 1.2-3.8 [facility] Comment on above: Performed By: #### G TT3P #### [facility] [address] [place] [address] Dr. Garland Kohli Lymphocytes/100 WBC (Bld) 17.8 % Critically low 20.5-60.0 [facility] Comment on above: Performed By: #### G TT3P #### [facility] [address] [place] [address] Dr. Garland Kohli MANUAL DIFF REQ NO Normal [facility] Comment on above: Performed By: #### G TT3P #### [facility] [address] [place] [address] Dr. Garland Kohli MCH (RBC) [Entitic mass] 30.7 pg Normal 26.7-34.0 [facility] Comment on above: Performed By: #### G TT3P #### [facility] [address] [place] [address] Dr. Garland Kohli MCHC (RBC) [Mass/Vol] 33.7 g/dL Normal 29.9-35.2 [facility] Comment on above: Performed By: #### G TT3P #### [facility] [address] [place] [address] Dr. Garland Kohli MCV (RBC) [Entitic vol] 91.2 fL Normal 81.0-99.0 [facility] Comment on above: Performed By: #### G TT3P #### [facility] [address] [place] [address] Dr. Garland Kohli MONO # 0.6 103/ul Normal 0.3-0.8 [facility] Comment on above: Performed By: #### G TT3P #### [facility] [address] [place] [address] Dr. Garland Kohli Monocytes/100 WBC (Bld) 6.0 % Normal 1.7-12.0 [facility] Comment on above: Performed By: #### G TT3P #### [facility] [address] [place] [address] Dr. Garland Kohli NEUT # 6.9 103/ul Critically high 1.4-6.5 [facility] Comment on above: Performed By: #### G TT3P #### [facility] [address] [place] [address] Dr. Garland Kohli Neutrophils/100 WBC (Bld) 74.1 % Normal 43.0-75.0 [facility] Comment on above: Performed By: #### G TT3P #### [facility] [address] [place] [address] Dr. Garland Kohli Platelet mean volume (Bld) [Entitic vol] 10.2 fL Normal 9.5-13.5 [facility] Comment on above: Performed By: #### G TT3P #### [facility] [address] [place] [address] Dr. Garland Kohli PLT 217 103/ul Normal 150-450 [facility] Comment on above: Performed By: #### G TT3P #### [facility] [address] [place] [address] Dr. Garland Kohli RBC 3.97 106/ul Critically low 4.20-5.40 [facility] Comment on above: Performed By: #### G TT3P #### [facility] [address] [place] [address] Dr. Garland Kohli WBC 9.3 103/ul Normal 4.0-11.0 [facility] Comment on above: Performed By: #### G TT3P #### [facility] [address] [place] [address] Dr. Garland Kohli GLUCOSE - 1HRon 03-26-2022 Glucose [Mass/Vol] 155 mg/dL Critically high 74-106 [facility] Comment on above: Performed By: #### C BC #### [facility] [address] [place] [address] Dr. Garland Kohli US PREG ANATOMY SINGLEon [...] YAAKOV TERAN Date: 2022-02-09 19:30 Normal [facility] AFP MATERNAL FOR SPINA BIFID Aon 01-29-2022 AFP MoM 0.76 Normal [facility] Comment on above: Performed By: #### G TT3P #### [facility] [address] [address] [address] Garland Kohli AFP Value 35.4 ng/mL Normal [facility] Comment on above: Performed By: #### G TT3P #### [facility] [address] [address] [address] Garland Kohli AFP, Serum for Spina Bifida Report Normal [facility] Comment on above: Performed By: #### G TT3P #### [facility] [address] [place] [address] Dr. Garland Kohli Comment Comment Normal [facility] Comment on above: Result Comment: Stanley Almodovar, Ph.D., [facility] Director . References: Available Upon Request. . Multiples Of Median Cutoffs For AFP Elevations Mark 2.5 Black 2.8 IDD 2.0 Twins 4.5 Abbreviation Definitions IDD - Insulin Dep Diabetes OSBR - Open Spina Bifida Risk . For further inquiries contact [facility] at [phone]. . This test was developed and its performance characteristics determined by [employer]. It has not been cleared or approved by the Food and Drug Administration. Performed By: #### G TT3P #### [facility] [address] [place] [address] Dr. Garland Kohli Gest Age Collection Date 18.1 weeks Normal [facility] Comment on above: Performed By: #### G TT3P #### [facility] [address] [place] [address] Dr. Garland Kohli Gestat, Age Based on Ultrasound Normal [facility] Comment on above: Result Comment: 09:4 on 11/26/2021 Recalculations are not recommended when gestational dating by LMP and ultrasound are within 10 days. Performed By: #### G TT3P #### [facility] [address] [place] [address] Dr. Garland Kohli Insulin Dep Diabetes No Normal [facility] Comment on above: Performed By: #### G TT3P #### [facility] [address] [place] [address] Dr. Garland Kohli Interpretation Comment Normal [facility] Comment on above: Result Comment: Inte [...] Customer Services to discuss available options. The [employer] recommends amniocentesis be offered to women age 35 and older. Performed By: #### G TT3P #### [facility] [address] [address] [address] Garland Kohli [age] [facility] Comment on above: Performed By: #### G TT3P #### [facility] [address] [address] [address] Garland Kohli Multiple Gestation No Normal [facility] Comment on above: Performed By: #### G TT3P #### [facility] [address] [address] [address] Garland Kohli [place] [address] [facility] Comment on above: Performed By: #### G TT3P #### [facility] [address] [address] [address] Garland Kohli PDF . [facility] Comment on above: Performed By: #### G TT3P #### [facility] [address] [place] [address] Dr. Garland Kohli Race [facility] Comment on above: Performed By: #### G TT3P #### [facility] [address] [place] [address] Dr. Garland Kohli Test Results: Negative [facility] Comment on above: Performed By: #### G TT3P #### [facility] [address] [place] [address] Dr. Garland Kohli PAP ACOG PANEL 2: 21 to 29on 01-23-2022 . . [facility] Comment on above: Performed By: #### [id number] #### [facility] [address] [place] [address] Dr. Garland Kohli Age Gdln ACOG Testing [facility] Comment on above: Performed By: #### [id number] #### [facility] [address] [place] [address] Dr. Garland Kohli DIAGNOSIS: Comment [facility] Comment on above: Result Comment: NEGA TIVE FOR INTRAEPITHELIAL LESION OR MALIGNANCY. Performed By: #### [id number] #### [facility] [address] [place] [address] Dr. Garland Kohli Methodology: Comment Normal [facility] Comment on above: Result Comment: This liquid based ThinPrep(R) pap test was screened with the use of an image guided system. Performed By: #### 4 [id number] #### [facility] [address] [place] [address] Dr. Garland Kohli Note: Comment Normal [facility] Comment on above: Result Comment: The Pap smear is a screening test designed to aid in the detection of premalignant and malignant conditions of the uterine cervix. It is not a diagnostic procedure and should not be used as the sole means of detecting cervical cancer. Both false-positive and false-negative reports do occur. . Performed By: #### [id number] #### [facility] [address] [place] [address] Dr. Garland Kohli Performed by: Comment Normal [facility] Comment on above: Result Comment: Kelly Arreguin, Medical Advisor (ASCP) Performed By: #### [id number] #### [facility] [address] [place] [address] Dr. Garland Kohli Reflex Criteria: Comment Normal [facility] Comment on above: Result Comment: The HPV DNA reflex criteria were not met with this specimen result therefore, no HPV testing was performed. . Performed By: #### 4 [id number] #### [facility] [address] [place] [address] Dr. Garland Kohli Specimen adequacy: Comment Normal [facility] Comment on above: Result Comment: Sati sfactory for evaluation. No endocervical component is identified. Performed By: #### 4 [id number] #### [facility] [address] [place] [address] Dr. Garland Kohli CHLAMYDIA/GONOCOCCUS JUAN (SW AB/URINE/PAPon 01-20-2022 Chlamydia trachomatis, JUAN Negative Normal Negative [facility] Comment on above: Performed By: #### C BC #### [facility] [address] [place] [address] Dr. Garland Kohli Neisseria gonorrhoeae, JUAN Negative Normal Negative [facility] Comment on above: Performed By: #### C BC #### [facility] [address] [place] [address] Dr. Garland Kohli TSHon 01-04-2022 TSH 1.707 uIU/mL Normal 0.358-3.740 [facility] Comment on above: Performed By: #### G TT3P #### [facility] [address] [place] [address] Dr. Garland Kohli HEPATITIS C VIRUS AB W/ REFL EX QUANTon 12-17-2021 HCV AB <0.1 Normal 0.0-0.9 [facility] Comment on above: Performed By: #### G TT3P #### [facility] [address] [place] [address] Dr. Garland Kohli Interpretation: Comment Normal [facility] Comment on above: Result Comment: Nega tive Not infected with HCV, unless recent infection is suspected or other evidence exists to indicate HCV infection. Performed By: #### G TT3P #### [facility] [address] [place] [address] Dr. Garland Kohli CULTURE URINEon 12-15-2021 CULTURE URINE Culture Observations : GREATER THAN TWO ORGANISMS PRESENT. PLEASE RESUBMIT CLEAN CATCH MID-STREAM URINE IF CLINICALLY INDICATED. Normal [facility] Comment on above: Performed By: #### U RCX #### [facility] [address] [place] [address] Dr. Garland Kohli HEP B SURFACE ANTIGEN SCREEN on 12-15-2021 HBsAg Screen Negative Normal Negative [facility] Comment on above: Performed By: #### H BSANS #### [facility] [address] [place] [address] Dr. Garland Kohli HIV 1 AND 2 WITH REFLEXon HIV Screen 4th Generation wRfx Non-Reactive Normal Non Reactive [facility] Comment on above: Result Comment: HIV Negative HIV-1/HIV-2 antibodies and HIV-1 p24 antigen were NOT detected. There is no laboratory evidence of HIV infection. Performed By: #### H IV12 #### [facility] [address] [place] [address] Dr. Garland Kohli RPR QUANTon 12-15-2021 Rapid Plasma Reagin, Quant Non-Reactive Normal NonRea<1:1 [facility] Comment on above: Result Comment: Elmo torres Note: This test does not meet current guidelines for screening and diagnosis of syphilis. This test is intended for following treatment response in patients being treated for syphilis infection. To screen for syphilis infection, a reflex cascade that includes both RPR and a treponema-specific assay should be utilized, such as Treponema pallidum (Syphilis) Screening [place] (328678) or Rapid Plasma Reagin (RPR) Test With Reflex to Quantitative RPR and Confirmatory Treponema pallidum Antibodies (408027). Performed By: #### G TT3P #### [facility] [address] [place] [address] Dr. Garland Kohli RUBELLA AB IGGon 12-15-2021 Rubella Antibodies, IgG 4.72 index Normal Immune >0.99 [facility] Comment on above: Result Comment: Non- immune <0.90 Equivocal 0.90 - 0.99 Immune >0.99 Performed By: #### G TT3P #### [facility] [address] [place] [address] Dr. Garland Kohli CBC AUTO DIFFon 12-14-2021 BASO # 0.0 103/ul Normal 0.0-0.1 [facility] Comment on above: Performed By: #### C BC #### [facility] [address] [place] [address] Dr. Garland Kohli Basophils/100 WBC (Bld) 0.3 % Normal 0.2-2.0 [facility] Comment on above: Performed By: #### C BC #### [facility] [address] [place] [address] Dr. Garland Kohli EO # 0.1 103/ul Normal 0.0-0.7 [facility] Comment on above: Performed By: #### C BC #### [facility] [address] [place] [address] Dr. Garland Kohli Eosinophils/100 WBC (Bld) 0.8 % Critically low 0.9-7.0 [facility] Comment on above: Performed By: #### C BC #### [facility] [address] [place] [address] Dr. Garland Kohli Erythrocyte distribution width (RBC) [Ratio] 12.6 % Normal 11.0-15.0 [facility] Comment on above: Performed By: #### C BC #### [facility] [address] [place] [address] Dr. Garland Kohli Hematocrit (Bld) [Volume fraction] 34.3 % Critically low 36.0-48.0 [facility] Comment on above: Performed By: #### C BC #### [facility] [address] [place] [address] Dr. Garland Kohli Hemoglobin (Bld) [Mass/Vol] 11.7 g/dL Critically low 12.0-16.0 [facility] Comment on above: Performed By: #### C BC #### [facility] [address] [place] [address] Dr. Garland Kohli IG # 0.03 10e3/ul Normal 0.00-0.03 [facility] Comment on above: Performed By: #### C BC #### [facility] [address] [place] [address] Dr. Garland Kohli IG % 0.4 % Normal 0.0-0.5 [facility] Comment on above: Performed By: #### C BC #### [facility] [address] [place] [address] Dr. Garland Kohli LYMPH # 1.5 103/ul Normal 1.2-3.8 [facility] Comment on above: Performed By: #### C BC #### [facility] [address] [place] [address] Dr. Garland Kohli Lymphocytes/100 WBC (Bld) 21.1 % Normal 20.5-60.0 [facility] Comment on above: Performed By: #### C BC #### [facility] [address] [place] [address] Dr. Garland Kohli MANUAL DIFF REQ NO Normal [facility] Comment on above: Performed By: #### C BC #### [facility] [address] [place] [address] Dr. Garland Kohli MCH (RBC) [Entitic mass] 30.5 pg Normal 26.7-34.0 [facility] Comment on above: Performed By: #### C BC #### [facility] [address] [place] [address] Dr. Garland Kohli MCHC (RBC) [Mass/Vol] 34.1 g/dL Normal 29.9-35.2 [facility] Comment on above: Performed By: #### C BC #### [facility] [address] [place] [address] Dr. Garland Kohli MCV (RBC) [Entitic vol] 89.6 fL Normal 81.0-99.0 [facility] Comment on above: Performed By: #### C BC #### [facility] [address] [place] [address] Dr. Garland Kohli MONO # 0.5 103/ul Normal 0.3-0.8 [facility] Comment on above: Performed By: #### C BC #### [facility] [address] [place] [address] Dr. Garland Kohli Monocytes/100 WBC (Bld) 7.1 % Normal 1.7-12.0 [facility] Comment on above: Performed By: #### C BC #### [facility] [address] [place] [address] Dr. Garland Kohli NEUT # 5.0 103/ul Normal 1.4-6.5 [facility] Comment on above: Performed By: #### C BC #### [facility] [address] [place] [address] Dr. Garland Kohli Neutrophils/100 WBC (Bld) 70.3 % Normal 43.0-75.0 [facility] Comment on above: Performed By: #### C BC #### [facility] [address] [place] [address] Dr. Garland Kohli Platelet mean volume (Bld) [Entitic vol] 10.1 fL Normal 9.5-13.5 [facility] Comment on above: Performed By: #### C BC #### [facility] [address] [address] [address] Garland Kohli PLT 234 103/ul Normal 150-450 [facility] Comment on above: Performed By: #### C BC #### [facility] [address] [address] [address] Garland Kohli RBC 3.83 106/ul Critically low 4.20-5.40 [facility] Comment on above: Performed By: #### C BC #### [facility] [address] [address] [address] Garland Kohli WBC 7.1 103/ul Normal 4.0-11.0 [facility] Comment on above: Performed By: #### C BC #### [facility] [address] [place] [address] Dr. Garland Kohli GLYCOHEMOGLOBIN A1Con 2021 ADA RECOMMENDATION SEE BELOW Normal [facility] Comment on above: Result Comment: ADA RECOMMENDED LIMIT 4.0 - 6.0 ADA THERAPEUTIC TARGET < 7.0 ACTION SUGGESTED > 7.0 Performed By: #### A 1C #### [facility] [address] [place] [address] Dr. Garland Kohli Glucose [Mass/Vol] 103 mg/dL Normal [facility] Comment on above: Performed By: #### A 1C #### [facility] [address] [place] [address] Dr. Garland Kohli HbA1c (Bld) [Mass fraction] 5.2 % Normal 4.5-6.2 [facility] Comment on above: Performed By: #### A 1C #### [facility] [address] [place] [address] Dr. Garland Kohli MARTÍNEZ BOX TEST PT SEND OUTo n 12-14-2021 SENT TO REF LAB 12/14/21 Normal [facility] Comment on above: Performed By: #### G TT3P #### [facility] [address] [place] [address] Dr. Garland Kohli TYPE AND SCREENon 12-14-2021 TYPE AND SCREEN Negative Normal [facility] Comment on above: Performed By: #### C BC #### [facility] [address] [address] [address] Garland Kohli US PREG TVon 11-26-2021 [...] YAAKOV TERAN Date: 2021-11-26 18:36 Normal [facility] OPERATIVE REPORTon 9 OPERATIVE REPORT [address] [id number] OPERATIVE REPORT PATIENT NAME: CECELIA JOHNSON : 1995 MED REC NO: [id number] ROOM: ACCOUNT NO: [id number] ADMIT DATE: 11/24/2018 PROVIDER: Mode Renee DATE [...] infiltrated into the drains, this was for long-term pain control. Steri-Strips applied throughout and then bulky gauze dressing as well as surgical bra was applied. The patient was awoken, extubated, and transported to the recovery room in stable condition. Sponge, needle, and instrument counts were reported correct x2 at the end of the case. MODE RENEE [id number] Doc#: [id number] CC: Carlos Alberto Coleman Normal [facility] Surgical Pathologyon 019 Surgical Pathology (NOTE) [id number] [address] [facility] [place] [address] SURGICAL PATHOLOGY REPORT Patient Name: CECELIA JOHNSON MR#: [id number] Specimen #[id number] Final Diagnosis SPECIMEN A : BREAST AND [...] The entire specimen weighs 453 grams. Multiple media sales representative sections are submitted in five [...] also sampled in multiple different areas and media sales representative sections are submitted in five cassettes for microscopic examination. Microscopic Description Specimen A : Five RICHARD glass slides are received. Microscopic examination is performed. Specimen B : Five RICHARD glass slides are received. Microscopic examination is performed. Normal [facility] Comment on above: Performed By: #### P PPES #### [facility] [address] [place] [address] Hospice Superintendent: Victor Manuel Hunter DO CNOVSPon 11-18-2018 CNOVS Visit (SP) Office ([place]) CECELIA JOHNSON ([id number]) 1995 F Date Time Provider Department 11/18/18 1:00 PM JAZ MOULTON) KATHARINE During your visit today, we recorded the following information about you: Temperature Pulse Respiration Blood pressure 97.9 degrees 82/minute 18/minute 122/78 Weight Height Last Period 82.7 kg 1.6 m 10/15/18 Jaz Moulton MD 11/18/2018 3:08 PM Signed PATIENT NAME: Cecelia Johnson CLINIC NO.: [id number] ATTENDING PHYSICIAN: Jaz Moulton MD DATE OF [...] file Gets together: Not on file Attends muslim service: Not on file Active member of [...] number below. Jaz Moulton M.D. Hematology/[facility] [phone] CC: Carlos Alberto Coleman MD - (Inactive), In Basket (Inactive) - User (Inactive) [phone] [facility] [facility] [phone] () Mode Renee MD Referring [...] Status:Closed by JAZ MOULTON MD on 11/18/18 [facility] PROGRESSon 11-18-2018 PROGRESS HNO ID: [id number] Author: Jaz Hill) Kenney Service: ? Author Type: Physician Type: Progress Notes Filed: 11/18/2018 3:08 PM Note Text: PATIENT NAME: Cecelia Johnson [facility] NO.: [id number] ATTENDING PHYSICIAN: Jaz Moulton MD DATE OF [...] file Gets together: Not on file Attends muslim service: Not on file Active member of [...] below. Jaz Moulton M.D. Hematology/Medical Oncology [facility] [phone] CC: Carlos Alberto Coleman MD - (Inactive), In Basket (Inactive) - User (Inactive) [address] [place] [place] [phone] (Ph) Mode Renee MD [facility] Basic Metabolic Profon 11-10 (cont.) Normal [facility] Comment on above: Result Comment: Aver age GFR for 20-29 years old: 116 mL/min/1.73sq m Chronic Kidney Disease: <60 mL/min/1.73sq m Kidney failure: <15 mL/min/1.73sq m eGFR calculated using average adult body mass. Additional eGFR calculator available at: http://www.USDS.Fluencr/multiple_crcl_2012.htm Performed By: #### C FARAZ, BMP #### [facility] [place] [address] Hospice Superintendent: Victor Manuel Hunter DO Anion gap [Moles/Vol] 11 mmol/L Normal 9-17 [facility] Comment on above: Performed By: #### C FARAZ, BMP #### [facility] [place] [address] Hospice Superintendent: Victor Manuel Hunter DO Calcium [Mass/Vol] 9.7 mg/dL Normal 8.6-10.4 [facility] Comment on above: Performed By: #### C AFRAZ, BMP #### [facility] [place] [address] Hospice Superintendent: Victor Manuel Hunter DO Chloride [Moles/Vol] 102 mmol/L Normal 98-107 [facility] Comment on above: Performed By: #### C FARAZ, BMP #### [facility] [place] [address] Hospice Superintendent: Victor Manuel Hunter DO CO2 [Moles/Vol] 26 mmol/L Normal 20-31 [facility] Comment on above: Performed By: #### C DP, BMP #### [facility] [place] [address] Hospice Superintendent: Victor Manuel Hunter DO Creatinine [Mass/Vol] 0.49 mg/dL Low 0.50-0.90 [facility] Comment on above: Performed By: #### C DP, ROSA #### [facility] [address] [place] [address] Hospice Superintendent: Victor Manuel Hunter DO GFR, Amer >60 Normal >60 [facility] Comment on above: Performed By: #### C DP, BMP #### [facility] [address] [place] [address] Hospice Superintendent: Victor Manuel Hunter DO GFR,non Amer >60 Normal >60 [facility] Comment on above: Performed By: #### C DP, BMP #### [facility] [address] [place] [address] Hospice Superintendent: Victor Manuel Hunter DO Glucose [Mass/Vol] 88 mg/dL Normal 70-99 [facility] Comment on above: Performed By: #### C DP, BMP #### [facility] [address] [place] [address] Hospice Superintendent: Victor Manuel Hunter DO Potassium [Moles/Vol] 4.3 mmol/L Normal 3.7-5.3 [facility] Comment on above: Performed By: #### C DP, BMP #### [facility] [place] [address] Hospice Superintendent: Victor Manuel Hunter DO Sodium [Moles/Vol] 139 mmol/L Normal 135-144 [facility] Comment on above: Performed By: #### C DP, BMP #### [facility] [address] [place] [address] Hospice Superintendent: Victor Manuel Hunter DO Urea nitrogen [Mass/Vol] 8 mg/dL Normal 6-20 [facility] Comment on above: Performed By: #### C DP, BMP #### [facility] [address] [place] [address] Hospice Superintendent: Victor Manuel Hunter DO BUN/CRE Ratio NOT REPORTED Normal 9-20 [facility] Comment on above: Performed By: #### C FARAZ, BMP #### [facility] [address] [place] [address] Hospice Superintendent: Victor Manuel Hunter DO Staging: NOT REPORTED Normal [facility] Comment on above: Performed By: #### C FARAZ, BMP #### [facility] [address] [place] [address] Hospice Superintendent: Victor Manuel Hunter DO CBC with Diffon 11-10-2018 Abs. Basophil 0.00 k/uL Normal 0.0-0.2 [facility] Comment on above: Performed By: #### C FARAZ, BMP #### [facility] [address] [place] [address] Hospice Superintendent: Victor Manuel Hunter DO Abs.Neutrophil (Seg) 3.00 k/uL Normal 1.3-9.1 [facility] Comment on above: Performed By: #### C FARAZ, BMP #### [facility] [address] [place] [address] Hospice Superintendent: Victor Manuel Hunter DO Basophils/100 WBC (Bld) 0 % Normal 0-2 [facility] Comment on above: Performed By: #### C FARAZ, BMP #### [facility] [address] [place] [address] Hospice Superintendent: Victor Manuel Hunter DO Eosinophils (Bld) [#/Vol] 0.10 10*3/uL Normal 0.0-0.4 [facility] Comment on above: Performed By: #### C DP, BMP #### [facility] [address] [place] [address] Hospice Superintendent: Victor Manuel Hunter DO Eosinophils/100 WBC (Bld) 1 % Normal 0-4 [facility] Comment on above: Performed By: #### C DP, BMP #### [facility] [address] [place] [address] Hospice Superintendent: Victor Manuel Hunter DO Erythrocyte distribution width (RBC) [Ratio] 12.7 % Normal 11.5-14.9 [facility] Comment on above: Performed By: #### C DP, BMP #### [facility] [address] [place] [address] Hospice Superintendent: Victor Manuel Hunter DO Hematocrit (Bld) [Volume fraction] 42.3 % Normal 36-46 [facility] Comment on above: Performed By: #### C DP, BMP #### [facility] [address] [place] [address] Hospice Superintendent: Victor Manuel Hunter DO Hemoglobin (Bld) [Mass/Vol] 14.3 g/dL Normal 12.0-16.0 [facility] Comment on above: Performed By: #### C FARAZ, BMP #### [facility] [address] [place] [address] Hospice Superintendent: Victor Manuel Hunter DO Lymphocytes (Bld) [#/Vol] 1.70 10*3/uL Normal 1.0-4.8 [facility] Comment on above: Performed By: #### C DP, BMP #### [facility] [address] [place] [address] Hospice Superintendent: Victor Manuel Hunter DO Lymphocytes/100 WBC (Bld) 32 % Normal 24-44 [facility] Comment on above: Performed By: #### C DP, BMP #### [facility] [address] [place] [address] Hospice Superintendent: Victor Manuel Hunter DO MCH (RBC) [Entitic mass] 30.0 pg Normal 26-34 [facility] Comment on above: Performed By: #### C DP, BMP #### [facility] [place] [address] Hospice Superintendent: Victor Manuel Hunter DO MCHC (RBC) [Mass/Vol] 33.7 g/dL Normal 31-37 [facility] Comment on above: Performed By: #### C DP, BMP #### [facility] [address] [place] [address] Hospice Superintendent: Victor Manuel Hunter DO MCV (RBC) [Entitic vol] 89.0 fL Normal 80-100 [facility] Comment on above: Performed By: #### C DP, BMP #### [facility] [address] [place] [address] Hospice Superintendent: Victor Manuel Hunter DO Monocytes (Bld) [#/Vol] 0.60 10*3/uL Normal 0.1-1.3 [facility] Comment on above: Performed By: #### C FARAZ, BMP #### [facility] [address] [place] [address] Hospice Superintendent: Victor Manuel Hunter DO Monocytes/100 WBC (Bld) 11 % High 1-7 [facility] Comment on above: Performed By: #### C DP, BMP #### [facility] [address] [place] [address] Hospice Superintendent: Victor Manuel Hunter DO Neutrophil (Seg) 56 % Normal 36-66 [facility] Comment on above: Performed By: #### C DP, BMP #### [facility] [address] [place] [address] Hospice Superintendent: Victor Manuel Hunter DO Platelet mean volume (Bld) [Entitic vol] 9.4 fL Normal 6.0-12.0 [facility] Comment on above: Performed By: #### C DP, BMP #### [facility] [place] [address] Hospice Superintendent: Victor Manuel Hunter DO Platelets (Bld) [#/Vol] 252 10*3/uL Normal 150-450 [facility] Comment on above: Performed By: #### C DP, BMP #### [facility] [address] [place] [address] Hospice Superintendent: Victor Manuel Hunter DO RBC (Bld) [#/Vol] 4.75 10*6/uL Normal 4.0-5.2 [facility] Comment on above: Performed By: #### C DP, BMP #### [facility] [address] [place] [address] Hospice Superintendent: Victor Manuel Hunetr DO WBC (Bld) [#/Vol] 5.3 10*3/uL Normal 3.5-11.0 [facility] Comment on above: Performed By: #### C FARAZ, BMP #### [facility] [address] [place] [address] Hospice Superintendent: Victor Manuel Hunter DO Abs.Imm.Granulocyte NOT REPORTED Normal 0.00-0.30 [facility] Comment on above: Performed By: #### C DP, BMP #### [facility] [address] [place] [address] Hospice Superintendent: Victor Manuel Hunter DO Auto Diff Performed NOT REPORTED Normal [facility] Comment on above: Performed By: #### C DP, BMP #### [facility] [address] [place] [address] Hospice Superintendent: Victor Manuel Hunter DO Immature granulocytes (Bld) [#/Vol] NOT REPORTED Normal 0 [facility] Comment on above: Performed By: #### C DP, BMP #### [facility] [address] [facility] [place] [address] Hospice Superintendent: Victor Manuel Hunter DO NRBC Automated NOT REPORTED Normal [facility] Comment on above: Performed By: #### C DP, BMP #### [facility] [address] [facility] [place] [address] Hospice Superintendent: Victor Manuel Hunter DO Platelets (Bld) [#/Vol] NOT REPORTED Normal [facility] Comment on above: Performed By: #### C DP, BMP #### [facility] [address] [facility] [place] [address] Hospice Superintendent: Victor Manuel Hunter DO RBC morphology finding Nom (Bld) NOT REPORTED Normal [facility] Comment on above: Performed By: #### C DP, BMP #### [facility] [place] [address] Hospice Superintendent: Victor Manuel Hunter DO WBC Morphology NOT REPORTED Normal [facility] Comment on above: Performed By: #### C DP, BMP #### [facility] [address] [place] [address] Hospice Superintendent: Victor Manuel Hunter DO Vital Signs Date Time Vital Sign Value Performing Clinician Facility 03-09-2024 16:25-0500 Body mass index (BMI) [Ratio] 30.88 kg/m2 Tori SHIRLEY Work Phone: [facility] 03-09-2024 16:25-0500 Body weight 81.6 kg Tori SHIRLEY Work Phone: [facility] 03-09-2024 16:25-0500 Diastolic blood pressure 70 mm[Hg] Tori SHIRLEY Work Phone: [facility] 03-09-2024 16:25-0500 Systolic blood pressure 114 mm[Hg] Tori SHIRLEY Work Phone: [facility] 02-10-2024 14:44-0400 Body mass index (BMI) [Ratio] 29.39 kg/m2 Herber Varmao DO Work Phone: [facility] 02-10-2024 14:44-0400 Body weight 77.68 kg Herber Nnamdi DO Work Phone: [facility] 02-10-2024 14:44-0400 Diastolic blood pressure 68 mm[Hg] Herber Nnamdi DO Work Phone: [facility] 02-10-2024 14:44-0400 Systolic blood pressure 116 mm[Hg] Herber Varmao DO Work Phone: [facility] 01-29-2022 02:06-0400 Body weight 67.[address] EZN BREWER . [facility] Comment on above: Performed By: #### [id number] #### [facility] [address] [place] [address] Dr. Garland Kohli Encounters Encounter Date Encounter Type Care Provider Facility Start: 03-19-2024 End: 03-19-2024 Clinisync Result Encounter Tori SHIRLEY Work Phone: [facility] External Department Unsolicited Start: 03-19-2024 End: 03-19-2024 Clinisync Result Encounter Tori SHIRLEY Work Phone: [facility] External Department Unsolicited Start: 03-09-2024 End: 03-09-2024 ambulatory TORI PEPE Not Available Start: 03-09-2024 End: 03-09-2024 flow sheet Tori SHIRLEY Work Phone: [facility] Comment on above: Encounter for follow -up ultrasound of anatomy; Second trimester ; 23 weeks gestation of ; Hypothyroidism, unspecified type (CMS/HCC); Diabetes mellitus screening; Anxiety, generalized (CMS/HCC) Start: 03-09-2024 End: 03-09-2024 Bamboo flowsheet Tori SHIRLEY Work Phone: [facility] Start: 03-09-2024 End: 03-09-2024 Bamboo flowsheet Tori SHIRLEY Work Phone: [facility] Start: 02-10-2024 End: 02-10-2024 ambulatory HERBER NNAMDI Not Available Start: 02-10-2024 End: 02-10-2024 Bamboo flowsheet Herber Nnamdi DO Work Phone: [facility] Start: 02-10-2024 End: 02-17-2024 Bamboo flowsheet Herber Nnamdi DO Work Phone: [facility] Start: 02-10-2024 End: 02-17-2024 Clinisync Result Encounter Generic External Data Provider [facility] External Department Unsolicited Start: 02-10-2024 End: 02-10-2024 Patient encounter procedure Herber Nnamdi DO Work Phone: [facility] Start: 02-10-2024 End: 02-10-2024 Periodic preventive med est patient 18-39 yrs Herber Nnamdi DO Work Phone: [facility] Comment on above: Well woman exam with routine gynecological exam; Screening, , for anatomic survey; Second trimester ; 19 weeks gestation of ; Screen for STD (sexually transmitted disease); Vaginal discharge; headache in second trimester Start: 01-11-2024 End: 01-11-2024 ambulatory HERBER NNAMDI Not Available Start: 01-11-2024 End: 01-11-2024 Bamboo flowsheet Herber Nnamdi DO Work Phone: [facility] Start: 01-11-2024 End: 01-11-2024 Bamboo flowsheet Herber Nnamdi DO Work Phone: [facility] Start: 12-11-2023 End: 12-11-2023 ambulatory SOFIE LAUSE Not Available Start: 10-16-2023 End: 10-16-2023 ambulatory TORI WARCHOL Not Available Start: 07-17-2023 End: 07-17-2023 ambulatory TORI WARCHOL Not Available Start: 07-13-2023 End: 07-13-2023 Patient encounter procedure MD Carlos Alberto Coleman Work Phone: [facility] Start: 07-13-2023 End: 07-13-2023 ambulatory MD Carlos Alberto Coleman Work Phone: [facility] Work Phone: Start: 07-13-2023 End: 07-13-2023 ambulatory SOFIE Miranda CHAYA Not Available Start: 06-02-2023 Refill Tori Gomezkeke CLAIMS ADJUSTER Work Phone: [facility] Comment on above: Attention deficit hy peractivity disorder (ADHD), combined type (CMS/HCC) Start: 04-16-2023 End: 04-16-2023 ambulatory TORI MICHELLE [...] without abnormal findings DR ZEN BREWER . [facility] Start: 01-17-2022 End: 01-17-[address] ZEN BREWER . Facility:[facility] Start: 01-17-2022 End: 01-17-2022 Encounter for gynecological examination (general) (routine) without abnormal findings DR ZEN BREWER . Facility: Start: 01-04-2022 End: 01-05-2022 ambulatory ÁNGELSofie SINHA Facility: Start: 12-14-2021 End: 12-15-[address] ZEN BREWER . Facility: Start: 11-26-2021 End: 11-27-2021 ambulatory ÁNGEL SINHA Facility: Start: 11-24-2018 End: 11-24-2018 Patient encounter procedure MODE RENEE [facility] Start: 11-10-2018 End: 11-15-2018 Patient encounter procedure MODE R RENEE [facility] Procedures Date Procedure Procedure Detail Performing Clinician Start: 03-19-2024 ALL CBC WITH AUTO DIFF Generic External Data Provider Start: 02-10-2024 Urnls dip stick/tabl et rgnt non-auto w/o micrscp [employer] Work Phone: Start: 02-10-2024 IGP,APTIMA HPV,AGE GDLN [employer] Work Phone: Start: 02-10-2024 Microscopic observat ion [...] iv surg pathol ogy gross&microscopic exam MODE RAINEYPTA Start: 11-24-2018 DISCHARGE PATIENT NORMA RENEE Start: [...] Screening for malign ant neoplasm of cervix [facility] Start: 04-21-2024 End: 04-21-2024 Patient encounter procedure 04/21/2024 8:30 AM EST Routine [facility] [address] [place] [id number] Herber Coto DO [address] [place] [address] [facility] Start: 04-06-2024 End: 04-06-2024 Patient encounter procedure 04/06/2024 3:20 PM EST Routine [facility] [address] [place] [phone] Tori Pepe PA [address] [place] [address] [facility] Start: 04-03-2024 End: 03-04-2025 US for US OB INCOMPLETE ANATOMY Imaging Routine Encounter for follow-up ultrasound of anatomy Expected: 04/03/2024 (Approximate), Expires: 03/04/2025 [facility] Work Phone: Comment on above: Expected: 04/03/2024 (Approximate), Expires: 03/04/2025 Start: 03-09-2024 End: 03-09-2024 Patient encounter procedure 03/09/2024 3:50 PM EST Routine [facility] [address] [place] [address] Tori Pepe PA [address] [place], [place] [id number] [facility] Start: 03-09-2024 End: 03-09-2025 CBC panel - Blood by Automated count CBC Lab Routine Diabetes mellitus screening Expected: 03/09/2024 (Approximate), Expires: 03/09/2025 [facility] Comment on above: Expected: 03/09/2024 (Approximate), Expires: 03/09/2025 Start: 03-09-2024 End: 03-09-2025 Measurement of glucose 1 hour after glucose challenge for glucose tolerance test Glucose tolerance, 1 hour Lab Routine Diabetes mellitus screening Expected: 03/09/2024 (Approximate), Expires: 03/09/2025 [facility] Comment on above: Expected: 03/09/2024 (Approximate), Expires: 03/09/2025 Start: 03-09-2024 End: 03-09-2025 US for US OB SCAN FOR GROWTH Imaging Routine Hypothyroidism, unspecified type (CMS/HCC) Expected: 03/09/2024 (Approximate), Expires: 03/09/2025 [facility] Comment on above: Expected: 03/09/2024 (Approximate), Expires: 03/09/2025 Start: 02-10-2024 End: 02-09-2025 Alpha fetoprotein, maternal Alpha fetoprotein, maternal Lab Routine Second trimester 19 weeks gestation of Expected: 02/10/2024 (Approximate), Expires: 02/09/2025 [facility] Comment on above: Expected: 02/10/2024 (Approximate), Expires: 02/09/2025 Start: 02-10-2024 End: 02-09-2025 US for US OB ANATOMY SINGLE W US OB CERVICAL LENGTH Imaging Routine Screening, , for anatomic survey Expected: 02/10/2024 (Approximate), Expires: 02/09/2025 [facility] Comment on above: Expected: 02/10/2024 (Approximate), Expires: 02/09/2025 Start: 01-11-2024 End: 01-11-2024 Patient encounter procedure 01/11/2024 3:50 PM EDT [facility] [address] [place] [phone] Herber Coto, [address] [place] [address] Arrived [facility] Comment on above: Arrived Start: 12-27-2023 Influenza vaccination Influenza Vacc ine (#1) [facility] Start: 10-25-2023 Influenza vaccination Influenza Vacc ine (#1) [facility] Comment on above: Postponed from 12/26 (Patient Refused) Start: 10-25-2023 Screening for malign ant neoplasm of cervix [facility] Start: 07-17-2023 End: 07-17-2023 Patient encounter procedure 07/17/2023 8:00 AM EDT Office Visit [facility] [address] [place] [address] Tori Martinez NP [address] [place] [address] [facility] Start: 2014 Screening for malign ant neoplasm of cervix Pap Smear [facility] CHLAMYDIA TRACHOMATI S (GENITO/STI) CHLAMYDIA TRACHOMATIS (GENITO/STI) Lab Routine Screen for STD (sexually transmitted disease) Vaginal discharge Ordered: 02/10/2024 [facility] Comment on above: Ordered: 02/10/2024 Cytology Cervical or vaginal smear or scraping study Pap Smear Pathology and Cytology Routine Well woman exam with routine gynecological exam Ordered: 02/10/2024 [facility] Comment on above: Ordered: 02/10/2024 Human papilloma viru s DNA [Presence] in Unspecified specimen by Probe with amplification HPV DNA probe, amplified Microbiology Routine Well woman exam with routine gynecological exam Ordered: 02/10/2024 [facility] Comment on above: Ordered: 02/10/2024 Neisseria gonorrhoea e DNA [Presence] in Unspecified specimen by JUAN with probe detection Neisseria gonorrhea DNA probe, direct Lab Routine Screen for STD (sexually transmitted disease) Vaginal discharge Ordered: 02/10/2024 [facility] Comment on above: Ordered: 02/10/2024 SURESWAB(R) ADVANCED VAGINITIS PLUS, TMA SURESWAB(R) ADVANCED VAGINITIS PLUS, TMA Pathology and Cytology Routine Screen for STD (sexually transmitted disease) Vaginal discharge Ordered: 02/10/2024 [facility] Work Phone: Comment on above: Ordered: 02/10/2024 Immunizations Immunization Date Immunization Notes Care Provider Byron carlson 05-05-2015 tetanus toxoid, redu catherine diphtheria toxoid, and acellular pertussis vaccine, adsorbed Tori Warchol CLAIMS ADJUSTER Work Phone: [facility] 02-14-2009 influenza, seasonal, injectable Tori Warchol CLAIMS ADJUSTER Work Phone: [facility] 02-14-2009 influenza virus vacc ine, unspecified formulation Tori Warchol CLAIMS ADJUSTER Work Phone: [facility] 12-12-2005 hepatitis A vaccine, unspecified formulation Tori Warchol CLAIMS ADJUSTER Work Phone: [facility] 12-12-2005 tetanus toxoid, redu catherine diphtheria toxoid, and acellular pertussis vaccine, adsorbed Tori Warchol CLAIMS ADJUSTER Work Phone: [facility] 11-19-1998 diphtheria, tetanus toxoids and acellular pertussis vaccine, unspecified formulation Tori Warchol CLAIMS ADJUSTER Work Phone: [facility] 11-19-1998 measles, mumps and rubella virus vaccine Tori Warchol CLAIMS ADJUSTER Work Phone: [facility] 11-19-1998 trivalent poliovirus vaccine, live, oral Tori Warchol CLAIMS ADJUSTER Work Phone: [facility] 09-14-1995 diphtheria, tetanus toxoids and acellular pertussis vaccine, unspecified formulation Tori Warchol CLAIMS ADJUSTER Work Phone: [facility] 09-14-1995 haemophilus influenz ae type b vaccine, conjugate unspecified formulation Tori Warchol CLAIMS ADJUSTER Work Phone: [facility] 11-20-1994 DTP-Haemophilus influenzae type b conjugate vaccine Tori Warchol CLAIMS ADJUSTER Work Phone: [facility] 11-20-1994 hepatitis B vaccine, pediatric or pediatric/adolescent dosage Tori Warchol CLAIMS ADJUSTER Work Phone: [facility] 11-20-1994 measles, mumps and rubella virus vaccine Tori Warchol CLAIMS ADJUSTER Work Phone: [facility] 11-20-1994 trivalent poliovirus vaccine, live, oral Tori Warchol CLAIMS ADJUSTER Work Phone: [facility] 09-18-1994 DTP-Haemophilus influenzae type b conjugate vaccine Tori Warchol CLAIMS ADJUSTER Work Phone: [facility] 09-18-1994 hepatitis B vaccine, pediatric or pediatric/adolescent dosage Tori Warchol CLAIMS ADJUSTER Work Phone: [facility] 09-18-1994 trivalent poliovirus vaccine, live, oral Tori Warchol CLAIMS ADJUSTER Work Phone: [facility] 1993 diphtheria, tetanus toxoids and pertussis vaccine Tori Warchol CLAIMS ADJUSTER Work Phone: [facility] 1993 haemophilus influenz ae type b vaccine, conjugate unspecified formulation Tori Warchol CLAIMS ADJUSTER Work Phone: [facility] 1993 hepatitis B vaccine, pediatric or pediatric/adolescent dosage Tori Warchol CLAIMS ADJUSTER Work Phone: [facility] 1993 trivalent poliovirus vaccine, live, oral Tori Warchol CLAIMS ADJUSTER Work Phone: [facility] Payers Date Payer Category Payer Self-pay [id number] 2023 Medicaid [id number] 2022 [facility] [id number] 2022 Unknown BCBS BCBS xxxxxx [id number] 2022-Present [phone] [address] [place] [address] [id number] [id number] 2017 Private Health Insurance [id number] 1993 Unknown [id number] 2.16.840.1.898625.3.579. 2.176 1993 Unknown [id number] 2.16.840.1.150882.3.579. 2.176 1993 Unknown [id number] 2.16.840.1.151002.3.579. 2.593 1993 Unknown [id number] 2.16.840.1.791172.3.579. 2.593 1993 Unknown [id number] 2.16.840.1.900595.3.579. 2.593 1993 Unknown [id number] 2.16.840.1.602657.3.579. 2.593 1993 Unknown [id number] 2.16.840.1.328626.3.579. 2.593 1993 Unknown [id number] 2.16.840.1.376693.3.579. 2.593 1993 Unknown [id number] 2.16.840.1.436963.3.579. 2.593 1993 Unknown [id number] 2.16.840.1.208399.3.579. 2.593 1993 Unknown [id number] 2.16.840.1.067777.3.579. 2.593 1993 Unknown [id number] 2.16.840.1.548569.3.579. 2.593 1993 Unknown [id number] 2.16.840.1.361483.3.579. 2.593 1993 Unknown [id number] 2.16.840.1.830861.3.579. 2.593 1993 Unknown [id number] 2.16.840.1.665633.3.579. 2.593 1993 Unknown [id number] 2.16.840.1.336629.3.579. 2.593 1993 Unknown [id number] 2.16.840.1.248115.3.579. 2.1259 1993 Unknown [id number] 2.16.840.1.496354.3.579. 2.1259 1993 Unknown [id number] 2.16.840.1.718174.3.579. 2.1259 1993 Unknown [id number] 2.16.840.1.956497.3.579. 2.1259 1993 Unknown [id number] 2.16.840.1.833330.3.579. 2.125 1993 Unknown [id number] 2.16.840.1.755757.3.579. 2.1259 1993 Unknown [id number] 2.16.840.1.199548.3.579. 2.1258 1993 Unknown [id number] 2.16.840.1.042251.3.579. 2.1259 1959 Self-pay [id number] 1959 Unknown [id number] 1959 Unknown [id number] 1959 Unknown [id number] Unknown [id number] 2.16.840.1.376735.3.579. 2.593 Unknown HCAP/HFA/FAP Active [id number] Unknown [id number] 2.16.840.1.405426.3.579. 2.531 Social History Date Type Detail Facility Start: 08-27-2016 End: 09-25-2022 Tobacco smoking status NHIS Never smoked tobacco [facility] Start: 09-25-2022 Tobacco use and exposure Smoke less tobacco non-user [facility] Start: 04-16-2023 End: 12-11-2023 Alcohol intake Current drinker of alcohol (finding) [...] gender (finding) [facility] Start: 10-08-2023 [facility] [place] Clinical Notes 06-02-2023 to 03-09-2024 FERN Luis - 03/09/2024 3:50 PM ESTAddendum Note - Niall Constantino LPN - 03/09/2024 3:50 PM ESTAddendum Note - Niall Constantino DESKTOP SUPPORT SPECIALIST - 03/09/2024 3:50 PM EST Note Date [...] esophagitis 09/01/2022 Moderate persistent asthma without complication ([facility]) 09/01/2022 Hypothyroidism, unspecified ([facility]) 03/02/2020 Moderate asthma ([facility]) 01/11/2024 Resolved Ambulatory Problems Diagnosis Date Noted Acquired hypothyroidism ([facility]) 09/01/2022 Allergic rhinitis 09/01/2022 Amenorrhea 09/01/2022 Asthma without status asthmaticus ([facility]) 09/01/2022 Attention deficit hyperactivity disorder ([facility]) 09/01/2022 Asthma affecting , antepartum ([facility]) 09/01/2022 Binge eating disorder 09/01/2022 Difficulty concentrating 09/01/2022 Irregular menstrual cycle 09/01/2022 Left sided sciatica 09/01/2022 Insomnia 09/01/2022 Migraines ([facility]) 09/01/2022 Metallic taste 09/01/2022 Mild persistent asthma without complication ([facility]) 09/01/2022 MTHFR mutation 09/01/2022 Nondependent cannabis abuse 09/01/2022 Other chronic pain 09/01/2022 Seasonal allergies 09/01/2022 Skin sensation disturbance 09/01/2022 Transitory mood disturbance 09/01/2022 Verruca plantaris 09/01/2022 Past Medical History: Diagnosis Date Acid reflux ADHD (attention deficit hyperactivity disorder) ([facility]) Asthma ([facility]) GERD (gastroesophageal reflux disease) Hypothyroid ([facility]) Lactose intolerance Marijuana use Migraine ([facility]) Mild persistent asthma, uncomplicated ([facility]) Supervision of normal Thyroid disease ([facility]) HISTORY PAST MEDICAL HISTORY SOCIAL HISTORY Past Medical History: Diagnosis Date Acid reflux ADHD (attention deficit hyperactivity disorder) ([facility]) Asthma ([facility]) Asthma affecting , antepartum ([facility]) GERD (gastroesophageal reflux disease) Hypothyroid ([facility]) Lactose intolerance Marijuana use Migraine ([facility]) Mild persistent asthma, uncomplicated ([facility]) MTHFR mutation Seasonal allergies Supervision of normal Thyroid disease ([facility]) Social History Tobacco Use Smoking status: Never [...] Laterality Date ADENOIDECTOMY 1998 EAR TUBE REMOVAL 1995 KNEE SURGERY Left 2008 Plica band removal, left knee arthroscopy [place] BREAST REDUCTION 10/2018 TONSILLECTOMY 1998 REVIEW OF [...] gestation of Z3A.23 4. Hypothyroidism, unspecified type (CMS/HCC) E03.9 US OB SCAN FOR GROWTH 5. [...] for routine OB appointment. Documented by FERN Luis on behalf of: FERN Luis documented in this encounter [facility] 03-09-2024 Miscellaneous Notes Addended by: NIALL CONSTANTINO on: 03/10/2024 09:01 AM Modules accepted: Orders documented in this encounter [facility] 03-09-2024 Note Addended by: NIALL CLEVELAND on: 03/10/2024 09:01 AM Modules accepted: Orders [facility] 03-09-2024 Note Addended by: NIALL CLEVELAND on: 03/10/2024 09:01 AM Modules accepted: Orders [facility] 02-10-2024 History of Presen t illness Narrative [...] esophagitis 09/01/2022 Moderate persistent asthma without complication ([facility]) 09/01/2022 Hypothyroidism, unspecified ([facility]) 03/02/2020 Moderate asthma ([facility]) 01/11/2024 Resolved Ambulatory Problems Diagnosis Date Noted Acquired hypothyroidism ([facility]) 09/01/2022 Allergic rhinitis 09/01/2022 Amenorrhea 09/01/2022 Asthma without status asthmaticus ([facility]) 09/01/2022 Attention deficit hyperactivity disorder ([facility]) 09/01/2022 Asthma affecting , antepartum ([facility]) 09/01/2022 Binge eating disorder 09/01/2022 Difficulty concentrating 09/01/2022 Irregular menstrual cycle 09/01/2022 Left sided sciatica 09/01/2022 Insomnia 09/01/2022 Migraines ([facility]) 09/01/2022 Metallic taste 09/01/2022 Mild persistent asthma without complication ([facility]) 09/01/2022 MTHFR mutation 09/01/2022 Nondependent cannabis abuse 09/01/2022 Other chronic pain 09/01/2022 Seasonal allergies 09/01/2022 Skin sensation disturbance 09/01/2022 Transitory mood disturbance 09/01/2022 Verruca plantaris 09/01/2022 Past Medical History: Diagnosis Date Acid reflux ADHD (attention deficit hyperactivity disorder) ([facility]) Asthma ([facility]) GERD (gastroesophageal reflux disease) Hypothyroid ([facility]) Lactose intolerance Marijuana use Migraine ([facility]) Mild persistent asthma, uncomplicated ([facility]) Supervision of normal Thyroid disease ([facility]) HISTORY PAST MEDICAL HISTORY SOCIAL HISTORY Past Medical History: Diagnosis Date Acid reflux ADHD (attention deficit hyperactivity disorder) ([facility]) Asthma ([facility]) Asthma affecting , antepartum ([facility]) GERD (gastroesophageal reflux disease) Hypothyroid ([facility]) Lactose intolerance Marijuana use Migraine ([facility]) Mild persistent asthma, uncomplicated ([facility]) MTHFR mutation Seasonal allergies Supervision of normal Thyroid disease ([facility]) Social History Tobacco Use Smoking [...] 2008 Plica band removal, left knee arthroscopy [place] BREAST REDUCTION 10/2018 TONSILLECTOMY 1998 REVIEW OF [...] Herber Coto DO documented in this encounter [facility] 06-04-2023 Telephone encount er Note Sent [facility] 06-04-2023 Miscellaneous Notes Formattin g of this note might be different from the original. Sent Patient requesting refill/[place] documented in this encounter [facility] 06-02-2023 Telephone encount er Note Patient requesting refill/[place] [facility] Evaluation note Diagnosis Attention deficit hyperactivity disorder (ADHD), combined type (CMS/HCC) documented in this encounter [facility] HealthcareEvaluation noteNo assessment information availableLouis [facility] Work Phone: Evaluation note* Diagnosis Well woman exam with routine gynecological exam Routine gynecological examination Screening, , for anatomic survey Encounter for anatomic survey Second trimester state, incidental 19 weeks gestation of Screen for STD (sexually transmitted disease) Screening examination for venereal disease Vaginal discharge Leukorrhea, not specified as infective headache in second trimester documented in this encounter [facility] HealthcareEvaluation note* Diagnosis Encounter for follow-up ultrasound of anatomy Second trimester state, incidental 23 weeks gestation of Hypothyroidism, unspecified type (CMS/HCC) Diabetes mellitus screening Screening for diabetes mellitus Anxiety, generalized (CMS/HCC) documented in this encounter [facility] Healthcare Summary Purpose Family History No Family [...] section and content) DATE CREATED AUTHOR 11/18/2018 [facility] DATE CREATED AUTHOR AUTHOR'S ORGANIZ ATION 11/26/2018 [facility] DATE CREATED AUTHOR AUTHOR'S ORGANIZ ATION 09/09/2022 [facility] DATE CREATED AUTHOR AUTHOR'S ORGANIZ ATION 03/12/2024 [facility] EPIC DATE CREATED AUTHOR AUTHOR'S ORGANIZ ATION 03/16/2024 [facility] Reason for Visit (unrecogniz ed section and content) Reason Onset Date Comments Med Refill 06/02/2023 Reason Comments Routine Visit Care Teams (unrecognized sec tion and content) Team Leader/Research Psychologist Relationship Specialty Start Date End Date Carlos Alberto Coleman MD [address] [place] [address] PCP - General Family Medicine 09/24/22 Tori Martinez NP [address] [place] [address] Nurse Practitioner Family Medicine 09/24/22 Sofie Gr NP [address] [place] [address] Nurse Practitioner Pulmonary Disease 04/14/23 Team Status: Active Member Role Status Dates Carlos Alberto Coleman MD Primary Care Provider Active Team Status: Inactive Member Role Status Dates Carlos Alberto Coleman MD Primary Care Provider Active S tart: July 13, 2023 End: July 13, 2023 Sofie Gr NP-C Attending Provider Active Start: July 13, 2023 End: July 13, 2023 Team Leader/Research Psychologist Relationship Specialty Start Date End Date Carlos Alberto Coleman MD [address] [place] [address] PCP - General Family Medicine 09/24/22 Tori Martinez NP [address] [place] [address] PCP - [place] [facility] 05/28/23 Tori Martinez NP [address] [place] [address] Nurse Practitioner Family Medicine 09/24/22 Sofie Gr NP [address] [place] [id number] Nurse Practitioner Pulmonary Disease 04/14/23 Team Leader/Research Psychologist Relationship Specialty Start Date End Date Carlos Alberto Coleman MD [address] [place] [id number] PCP - General Family Medicine 09/24/22 Tori Martinez NP [address] [place] [id number] PCP - [place] [facility] 05/28/23 Tori Martinez NP [address] [place] [id number] Nurse Practitioner Family Medicine 09/24/22 Sofie Gr NP [address] [place] [id number] Nurse Practitioner Pulmonary Disease 04/14/23 Team Leader/Research Psychologist Relationship Specialty Start Date End Date Carlos Alberto Coleman MD [address] [place] [id number] PCP - General Family Medicine 09/24/22 Tori Martinez NP [address] [place] [id number] PCP - [place] [facility] 05/28/23 Tori Martinez NP [address] [place] [address] Nurse Practitioner Family Medicine 09/24/22 Sofie Gr NP [address] [place] [address] Nurse Practitioner Pulmonary Disease 04/14/23 Team Leader/Research Psychologist Relationship Specialty Start Date End Date Carlos Alberto Coleman MD [address] [place] [id number] PCP - General Family Medicine 09/24/22 Tori Martinez NP [address] [place] [address] PCP - [place] [facility] 05/28/23 Tori Martinez CLAIMS ADJUSTER [address] [place] [id number] Nurse Practitioner Family Medicine 09/24/22 Sofie Gr NP [address] [place] [address] Nurse Practitioner Pulmonary Disease 04/14/23 Team Leader/Research Psychologist Relationship Specialty Start Date End Date Carlos Alberto Coleman MD [address] [place] [id number] PCP - General Family Medicine 09/24/22 Tori Martinez NP [address] [place] [address] PCP - [place] [employer] 05/28/23 Tori Martinez NP [address] [place] [address] Nurse Practitioner Family Medicine 09/24/22 Sofie Gr NP [address] [place] [address] Nurse Practitioner Pulmonary Disease 04/14/23 Team Leader/Research Psychologist Relationship Specialty Start Date End Date Carlos Alberto Coleman MD [address] [place] [address] PCP - General Family Medicine 09/24/22 Tori Martinez NP [address] [place] [address] PCP - [facility] 05/28/23 Tori Martinez NP [address] [place] [address] Nurse Practitioner Family Medicine 09/24/22 Sofie rG NP [address] [place] [address] Nurse Practitioner Pulmonary Disease 04/14/23 Goals (unrecognized [...] BE BASED ON THE PRIMARY CLINICAL RECORDS. [employer] provides no warranty or guarantee of the accuracy or completeness of information in this document.
--- NOTE | 2024-04-08 19:01 | US_ITS ---
The [address] [address] Patient Name: JULIÁN JIMENEZ MRN: [id number] date: 1995 Sex: F Assigned Patient Location: US Current Patient Location: Accession/Order Number: [id number] Exam Date: 04/08/2024 19:05 Report Date: 04/11/2024 08:01 At the request of: DEE PEPE Procedure: US OB growth EXAMINATION: US OB growth HISTORY: HYPOTHYROIDISM E03.9 COMPARISON: No relevant comparison available. FINDINGS: Heart Rate: 164.63 bpm Amniotic Fluid Volume: 14.9 cm. Largest fluid pocket 6.1 cm position: Cephalic presentation, longitudinal lie Number: 1 Placental location: Anterior BIOMETRY: BPD: 7.07 cm; 28 weeks 3 days; 45.60 % HC: 26.68 cm; 29 weeks 0 days; 47.40 % AC: 23.85 cm; 28 weeks 1 day; 42.40 % FL: 5.20 cm; 27 weeks 5 days; 23.80 % EFW: 1175.97 g; 35.60 %, 2 lbs. 9 oz. FL/AC: 21.80 FL/BPD: 73.60 HC/AC: 1.12 GESTATIONAL AGE: Age by EDC: 28 weeks 1 day SERENA by EDC: 2024-06-30 Age by US: 28 weeks 2 days SERENA by US: 2024-06-29 US/US OB growth IMPRESSION: Normal interval growth Electronically authenticated by: DEANNA LINN Date: 04/11/2024 08:01
== END 2024-04-08 18:55 | disposition home or self-care (01) ==
LOC: US 18:55
PROVIDERS: PCP Family Medicine; Visit Provider Physician Assistant
DX: O99.283 Endocrine, nutritional and metabolic diseases complicating pregnancy, third trimester (principal); Z3A.28 28 weeks gestation of pregnancy; E03.9 Hypothyroidism, unspecified
CPT/HCPCS: 76816

== ENCOUNTER 2024-04-27 12:05 | Emergency (ER) | payer BC, MEDICAID, SELFPAY ==
--- OUTSIDE RECORDS SUMMARY | 2024-04-27 12:15 | XMS_ITS | CCD ---
Author Organization [facility] Care Team Providers Care Clerical Support Name Role Phone RENEE, MODE R Referring [...] ÁNGEL Attending Unavailable KIEPERT, ÁNGEL Admitting Unavailable MILLTOWN, DR DEANAN Lance Consulting Unavailable PAY ., DR JARRELL Attending Unavailable PAY ., DR JARRELL Admitting Unavailable KIEPERT, ÁNGEL Primary Care Unavailable PAY ., DR JARRELL Consulting Unavailable DWIGHT ., TORI Consulting Unavailable KARASIK ., DR ZALDIVAR Consulting Unavailabl e KIEPERT, ÁNGEL Primary Care Unavailable KARASIK ., DR ZALDIVAR Attending Unavailabl e KARASIK ., DR ZALDIVAR Admitting Unavailabl e KIEPERT, ÁNGEL Primary Care Unavailable KARASIK ., DR ZALDIVAR Consulting Unavailabl e KARASIK ., DR ZALDIVAR Attending Unavailabl e KARASIK ., DR ZALDIVAR Admitting Unavailabl e ZIEBER, DR YAAKOV Miranad Consulting Unavailable KIEPERT, ÁNGEL Primary Care Unavailable [...] Carlos Alberto Coleman MD Primary Care Provider [phone] Michelle MARBLE INSTALLATION HELPER, Tori Unavailable Maile MARBLE INSTALLATION HELPER, Sofie R Unavailable MD Carlos Alberto Coleman Primary Care Provider HEATHER Gr Attending Provider [phone] Maile MARBLE INSTALLATION HELPER, Sofie R Unavailable [phone] Michelle MARBLE INSTALLATION HELPER, Tori Unavailable Sofie Gr Attending Unavailable Sofie Gr Admitting Unavailable Carlos Alberto Coleman Primary Care Unavailable SOFIE GR Attending Unavailable MICHELLE, TORI Attending Unavailable MICHELLE, TORI Attending Unavailable HERBER COTO Attending Unavailable NNAMDI, HERBER Attending Unavailable DWIGHT, TORI Attending Unavailable DWIGHT, TORI Attending Unavailable DWIGHT, TORI Attending Unavailable NANMDI, HERBER Attending Unavailable Allergies Allergy Classification Reported Allergen(s) Allergy Type Date of Onset Reaction(s) Facility (1 source) Cefuroxime Drug Allergy 04-04-20 22 The [facility] (2 sources) Ciprofloxacin Drug Allergy 04-03-20 16 [facility] (2 sources) Doxycycline Drug Allergy 05-20-19 21 vomiting [facility] (1 source) Flupenthixol Drug Allergy 04-04-20 22 [facility] (20 sources) Cefuroxime Drug Allergy 05-20-19 21 Rash [facility] (20 sources) Ciprofloxacin Drug Allergy 09-02-19 23 Shortness of breath [facility] (20 sources) Ciprofloxacin Drug Allergy 09-02-19 23 Shortness of breath [facility] (20 sources) cloNIDine Drug Allergy 03-14-20 21 [facility] (20 sources) cloNIDine Drug Allergy 09-02-19 23 [facility] (20 sources) Doxycycline Drug Allergy 05-20-19 21 GI intolerance [facility] (20 sources) Gluten Propensity to adverse reactions 11-11-19 19 [facility] (20 sources) Lactose (non-medical use) Allergy to substance 09-02-19 23 [facility] (20 sources) Lactose (non-medical use) Drug Intolerance 11-11-19 19 [facility] (20 sources) Octacosanol Drug Intolerance 11-11-19 19 [facility] (20 sources) Other Allergy to substance 11-11-19 19 [facility] (20 sources) Silver Allergy to substance 09-02-19 23 [facility] (20 sources) Wound Dressing Adhesive Drug Allergy 09-02-19 23 [facility] (1 source) Cefuroxime Drug Allergy 05-20-19 21 [facility]ository (1 source) Ciprofloxacin Drug Allergy 05-20-19 21 [facility] (1 source) Doxycycline Drug Allergy 05-20-19 21 [facility] Medications Current Medications Medication Drug Class(es) Dates Sig (Normalized) Sig (Original) [id number] 200 actuat albuterol 0.09 mg/actuat metered dose inhaler (20 sources) beta2-Adrenergic Agonist Start: 10-16-2023 End: 04-13-2024 take 2 puff(s) by inhalation every four hours for wheezing albuterol HFA 90 mcg/act inhaler Indications: Moderate persistent asthma without complication (CMS/HCC) Inhale 2 puffs every 4 (four) hours if needed for shortness of breath or wheezing 18 g 5 10/16/2023 Active Start: 04-16-2023 End: 07-15-2023 take 2 puff(s) by inhalation every four hours for wheezing albuterol HFA 90 mcg/act inhaler Indications: Moderate persistent asthma without complication (CMS/HCC) Inhale 2 puffs every 4 (four) hours if needed for shortness of breath or wheezing 18 g 2 04/16/2023 07/15/2023 Active Blood Glucose Monitoring Suppl (D-Care Glucometer) w/Device kit (9 sources) Start: 03-21-2024 End: 03-21-2025 Blood Glucose Monitoring Suppl (D-Care Glucometer) w/Device kit Indications: Gestational diabetes mellitus (GDM), antepartum, gestational diabetes method of control unspecified , Elevated glucose tolerance test 1 kit Daily Use four times daily to check FSBS. In the morning prior to breakfast & 1 hour after each meal for a total of 4times daily. 1 kit 03/21/2024 03/21/2025 Active citalopram 10 mg oral tablet (12 sources) Serotonin Reuptake Inhibitor Start: 03-10-2024 End: 03-10-2025 take 1 tablet by mouth once daily citalopram (CeleXA) 10 MG tablet Indications: Anxiety, generalized (CMS/HCC) Take 1 tablet (10 mg) by mouth Daily 30 tablet 11 03/10/2024 03/10/2025 Active famotidine 20 mg oral tablet (20 sources) Histamine-2 Receptor Antagonist Start: 10-16-2023 End: 04-13-2024 take 1 tablet by mouth once famotidine (Pepcid) 20 MG tablet Indications: Gastroesophageal reflux disease without esophagitis Take 1 tablet (20 mg) by mouth every 12 (twelve) hours 180 tablet 1 10/16/2023 Active Start: 04-16-2023 End: 10-13-2023 take 1 tablet by mouth once famotidine (Pepcid) 20 MG tablet Indications: Gastroesophageal reflux disease without esophagitis Take 1 tablet (20 mg) by mouth every 12 (twelve) hours 180 tablet 1 04/16/2023 10/13/2023 Active fexofenadine hydrochloride 180 mg oral tablet (20 sources) Histamine-1 Receptor Antagonist take 1 tablet [...] Active folic acid 1 mg oral tablet (18 sources) Start: End: take 1 tablet by mouth once daily folic acid (Folvite) 1 MG tablet Indications: Second trimester Take 1 tablet (1 mg) by mouth Daily 30 tablet 6 01/18/2024 01/17/2025 Active isopropyl alcohol 0.7 ml/ml medicated pad (9 sources) Start: Alcohol Swabs (Alcohol Prep Pad) 70 % pads Indications: Gestational diabetes mellitus (GDM), antepartum, gestational diabetes method of control unspecified , Elevated glucose tolerance test Apply 1 Pad topically Daily Use four times daily to check FSBS. 150 each 3 03/21/2024 Active lactase 9000 unt oral tablet (20 sources) lactase 9000 uni ts tablet Take 9,000 Units by mouth. Active lansoprazole 30 mg delayed release oral capsule (20 sources) Proton Pump Inhibitor Start: End: take 1 capsule by mouth once daily lansoprazole (Prevacid) [address] capsule Indications: Gastroesophageal reflux disease without esophagitis Take 1 capsule (30 mg) by mouth 1 (one) time each day at the same time 90 capsule 1 10/16/2023 Active Start: 04-16-2023 End: 10-13-2023 take 1 capsule by mouth once daily lansoprazole (Prevacid) [address] capsule Indications: Gastroesophageal reflux disease without esophagitis Take 1 capsule (30 mg) by mouth 1 (one) time each day at the same time 90 capsule 1 04/16/2023 10/13/2023 Active 200 actuat levalbuterol 0.045 mg/actuat metered dose inhaler (20 sources) beta2-Adrenergic Agonist Start: 10-16-2023 End: 01-14-2024 [...] Active levothyroxine sodium 0.088 mg oral tablet (20 sources) l-Thyroxine Start: 10-16-2023 End: 04-13-2024 take 1 tablet by mouth once daily levothyroxine (Synthroid, Levoxyl) 88 MCG tablet Indications: Acquired hypothyroidism (CMS/HCC) Take 1 tablet (88 mcg) by mouth 1 (one) time each day at the same time 90 tablet 1 10/16/2023 Active Start: 04-16-2023 End: 10-13-2023 take 1 tablet by mouth once daily levothyroxine (Synthroid, Levoxyl) 88 MCG tablet Indications: Acquired hypothyroidism (CMS/HCC) Take 1 tablet (88 mcg) by mouth 1 (one) time each day at the same time 90 tablet 1 04/16/2023 10/13/2023 Active loperamide hydrochloride 2 mg oral capsule (20 sources) Opioid Agonist loperamide (Imod ium) 2 MG capsule Take 2 mg by mouth. Active Magnesium (5 sources) take 1 capsule by mouth once daily Magnesium 400 MG capsule Take 400 mg by mouth Daily Active montelukast 10 mg oral tablet (20 sources) Leukotriene Receptor Antagonist Start: 10-16-19 End: 04-13-20 take 1 tablet by mouth at bedtime montelukast (Singulair) 10 MG tablet Indications: Moderate persistent asthma without complication (CMS/HCC) , Allergic rhinitis, unspecified seasonality, unspecified trigger Take 1 tablet (10 mg) by mouth at bedtime 90 tablet 1 10/16/2023 Active Start: 04-16-2023 End: 10-13-2023 take 1 tablet by mouth at bedtime montelukast (Singulair) 10 MG tablet Indications: Moderate persistent asthma without complication (CMS/HCC) , Allergic rhinitis, unspecified seasonality, unspecified trigger Take 1 tablet (10 mg) by mouth at bedtime 90 tablet 1 04/16/2023 10/13/2023 Active ondansetron 4 mg oral tablet (5 sources) Serotonin-3 Receptor Antagonist Start: 04-13-2024 take 1 tablet by mouth every six hours as needed for nausea and vomiting and nausea and nausea ondansetron (Zofran) 4 MG tablet Indications: Nausea Take 1 tablet (4 mg) by mouth every 6 (six) hours if needed for nausea or vomiting for up to 30 doses Take 1 tablet by mouth every 6 hours as needed for nausea. 30 tablet 3 04/13/2024 Active polysaccharide iron complex 391 mg oral capsule (6 sources) Start: 01-11-2024 End: 02-10-2024 take 1 capsule by mouth once daily iron polysaccharides (ProFe) 391.3 (180 Fe) MG capsule Indications: Second trimester Take 1 capsule (391.3 mg) by mouth Daily 30 capsule 6 01/11/2024 02/10/2024 Active Completed/Discontinued Medications Medication Drug Class(es) Dates Sig (Normalized) Sig (Original) amphetamine aspartate 5 mg / amphetamine sulfate 5 mg / dextroamphetamine saccharate 5 mg / dextroamphetamine sulfate 5 mg oral tablet (20 sources) Central Nervous System Stimulant Start: 10-23-2023 End: 04-13-2024 take 1 tablet by mouth once daily amphetamine-dextro amphetamine (Adderall) 20 MG tablet Indications: Attention deficit hyperactivity disorder (ADHD), combined type (CMS/HCC) Take 1 tablet (20 mg) by mouth Daily Do not start before October 23, 2023. 30 tablet 10/23/2023 04/13/2024 Discontinued Start: 10-23-2023 End: 04-13-2024 take 1 capsule by mouth every twenty-four hours in the morning amphetamine-dextroamphetamine XR (Addera ll XR) 20 MG 24 hr capsule Indications: Attention deficit hyperactivity disorder (ADHD), combined type (CMS/HCC) Take 1 capsule (20 mg) by mouth in the morning. Do not crush or chew.. Do not start before October 23, 2023. 30 capsule 10/23/2023 04/13/2024 Discontinued Start: 06-04-2023 End: 07-04-2023 take 1 capsule [...] Discontinued (Reorder) azithromycin 250 mg oral tablet (14 sources) Macrolide Antimicrobial Start: 01-26-2024 End: 04-13-2024 azithromycin (Zithromax Z-Darvin) 250 MG tablet Indications: Upper respiratory tract infection, unspecified type As directed 6 tablet 01/26/2024 04/13/2024 Discontinued calcium citrate 1190 mg / cholecalciferol 0.005 mg oral tablet (19 sources) Vitamin D End: 04-13-2024 Calcium Citrate-Vitamin D (Calcium Citrate + D3) 250-200 MG-UNIT tablet Calcium Citrate + D3 04/13/2024 Discontinued ibuprofen 600 mg oral tablet (19 sources) Nonsteroidal Anti-inflammatory Drug End: 04-13-2024 ibuprofen 600 MG tablet Take 600 mg by mouth. 04/13/2024 Discontinued magnesium oxide 400 mg oral tablet (6 sources) Start: 02-10-2024 End: 03-11-2024 take 1 tablet by mouth once daily magnesium oxide (Mag-Ox) 400 MG tablet Indications: headache in second trimester Take 1 tablet (400 mg) by mouth Daily 30 tablet 6 02/10/2024 03/11/2024 Naproxen (19 sources) Nonsteroidal Anti-inflammatory Drug End: 04-13-2024 take 2 tablets by mouth once daily as needed NAPROXEN SODIUM PO Take 2 tablets by mouth Daily as needed. 04/13/2024 Discontinued take 2 tablets by mo uth once daily as needed NAPROXEN SODIUM PO Take 2 tablets by konstantin th Daily as needed. Active take 2 tablets by mo uth once daily as needed NAPROXEN SODIUM PO Take 2 tablets by konstantin th Daily as needed. 0 Active ubrogepant 100 mg oral table t (18 sources) Start: 04-24-2023 End: 04-13-2024 Ubrelvy 100 MG tablet 202204/13/2024 Discontinued Problems Active Problems Problem Classification Problem Date Documented Date Episodic/Chronic Anxiety disorders (20 sources) Anxiety; Translations: [Anxiety disorder, unspecified] Onset: 09-01-2022 09-01-2022 Chronic Asthma (20 sources) Uncomplicated moderate persistent asthma; Translations: [Moderate persistent asthma, uncomplicated] Onset: 09-01-2022 Resolved: 11-13-2022 09-01-2022 Chronic Attention-deficit, conduct, and disruptive behavior disorders (1 source) Attention deficit hyperactivity disorder, combined type; Translations: [Attention-deficit hyperactivity disorder, combined type] 06-02-2023 Chronic Diabetes or abnormal glucose tolerance complicating ; childbirth; or the puerperium (6 sources) Abnormal glucose complicating ; Translations: [Gestational diabetes mellitus] Onset: 04-16-2022 Episodic Esophageal disorders (20 sources) Gastroesophageal reflux disease without esophagitis; Translations: [Gastro-esophageal reflux disease without esophagitis] Onset: 09-01-2022 09-01-2022 Chronic Immunizations and screening for infectious disease (3 sources) Contact with and (suspected) exposure to infections with a predominantly sexual mode of transmission; Translations: [Patient encounter status] Onset: 01-29-2022 02-10-2024 Episodic Nausea and vomiting (2 sources) Nausea; Translations: [Nausea] 04-13-2024 Episodic Other complications of ; puerperium affecting [...] vagina] 02-10-2024 Episodic Other nervous system disorders (20 sources) Chronic pain; Translations: [Other chronic pain] [...] [23 weeks gestation of ] 03-09-2024 Episodic Residual codes; unclassified (2 sources) Gestation period, 27 weeks; Translations: [27 weeks gestation of ] 04-06-2024 Episodic Residual codes; unclassified (2 sources) Gestation period, 28 weeks; Translations: [28 weeks gestation of ] 04-13-2024 Episodic Residual codes; unclassified (4 sources) Gestation period, 30 weeks; Translations: [30 weeks gestation of ] Onset: 04-21-2024 04-21-2024 Episodic Thyroid disorders (20 sources) Hypothyroidism, unspecified; Translations: [Hypothyroidism] Onset: 03-02-2020 Resolved: 11-13-2022 Chronic Unclassified (1 source) Cough, unspecified; Translations: [Cough, unspecified] Onset: 07-13-2023 Viral infection (1 source) COVID-19; Translations: [COVID-19] Onset: 04-08-2022 Past or Other Problems Problem Classification Problem Date Documented Date Episodic/Chronic Attention-deficit, conduct, and disruptive behavior disorders (20 sources) Attention deficit hyperactivity disorder; Translations: [Attention-deficit hyperactivity disorder, unspecified type] Onset: 09-01-2022 Resolved: 11-13-2022 11-13-2022 Chronic Headache; including migraine (20 sources) Migraine; Translations: [Migraine, unspecified, not intractable, without status migrainosus] Onset: 09-01-2022 Resolved: 11-13-2022 11-13-2022 Chronic Menstrual disorders (20 sources) Irregular menstruation, unspecified; Translations: [Amenorrhea] Onset: 12-14-2021 Resolved: 11-13-2022 Chronic Miscellaneous mental health disorders (20 sources) Binge eating disorder; Translations: [Binge eating disorder] Onset: 09-01-2022 Resolved: 11-13-2022 11-13-2022 Chronic Miscellaneous mental health disorders (20 sources) Transitory mood disturbance; Translations: [ mood [...] TRI] Onset: 11-30-2021 Episodic Other complications of (20 sources) Asthma in ; Translations: [Diseases of the respiratory system complicating , unspecified trimester] Onset: 09-01-2022 Resolved: 11-13-2022 11-13-2022 Episodic Other nervous system disorders (20 sources) Poor concentration; Translations: [Attention and concentration deficit] Onset: 09-01-2022 Resolved: 11-13-2022 11-13-2022 Chronic Other nervous system disorders (20 sources) Metallic taste; Translations: [Other disturbances of smell and taste] Onset: 09-01-2022 Resolved: 11-13-2022 11-13-2022 Episodic Other nervous system disorders (20 sources) Skin sensation disturbance; Translations: [Unspecified disturbances of skin sensation] Onset: 09-01-2022 Resolved: 11-13-2022 11-13-2022 Episodic Other upper respiratory disease (20 sources) Allergic rhinitis; Translations: [Allergic rhinitis, unspecified] Onset: 09-01-2022 Resolved: 11-13-2022 11-13-2022 Chronic Other upper respiratory disease (20 sources) Seasonal allergy; Translations: [Other seasonal allergic [...] ] Onset: 11-30-2021 Episodic Residual codes; unclassified (20 sources) Insomnia; Translations: [Insomnia, unspecified] Onset: 09-01-2022 Resolved: 11-13-2022 11-13-2022 Episodic Residual codes; unclassified (20 sources) Hereditary disorder of endocrine system; Translations: [Genetic susceptibility to other disease] Onset: 09-01-2022 Resolved: 11-13-2022 11-13-2022 Episodic Spondylosis; intervertebral disc disorders; other back problems (20 sources) Sciatica; Translations: [Sciatica, left side] Onset: 09-01-2022 Resolved: 11-13-2022 11-13-2022 Episodic Substance-related disorders (20 sources) Nondependent cannabis abuse ; Translations: [Cannabis abuse, uncomplicated] Onset: 09-01-2022 Resolved: 11-13-2022 11-13-2022 Chronic Viral infection (20 sources) Verruca plantaris; Translations: [Plantar wart] Onset: 09-01-2022 Resolved: 11-13-2022 11-13-2022 Episodic Results Test Name Value Interpretation Reference Range Facility Urinalysis macro (dipstick) panel (U)on 04-21-2024 Bilirubin, UA Negative Negative - 4(70) +++ mg/dL [facility] Blood, UA Negative Negative - 50 Mendel/mcL [facility] Clarity, UA Clear [facility] Color, UA Light Yellow [facility] Glucose, UA Negative Negative - 2000(110) ++++ mg/dL [facility] Interpretation and review of laboratory results Normal [facility] Ketones, UA Negative Negative - 160(16) ++++ mg/dL [facility] Leukocytes, UA Few Negative - 500+++ Leighann/mcL [facility] Nitrite, UA Negative Negative - Positive [facility] pH, UA 5.5 5 - 9 [facility] Protein, UA Trace Negative - 1999(20) ++++ mg/dL [facility] Spec Grav, UA 1.03 1 - 1.03 [facility] Urobilinogen, UA 0.2 0.2 - 12 mg/dL [facility] Urinalysis macro (dipstick) panel (U)on 04-13-2024 Bilirubin, UA Negative Negative - 4(70) +++ mg/dL [facility] Blood, UA Negative Negative - 50 Mendel/mcL [facility] Clarity, UA Clear [facility] Color, UA Yellow [facility] Glucose, UA Negative Negative - 1999(110) ++++ mg/dL [facility] Interpretation and review of laboratory results Normal [facility] Ketones, UA Negative Negative - 160(16) ++++ mg/dL [facility] Leukocytes, UA Negative Negative - 500+++ Leighann/mcL [facility] Nitrite, UA Negative Negative - Positive [facility] pH, UA 5.5 5 - 9 [facility] Protein, UA Negative Negative - 1999(20) ++++ mg/dL [facility] Spec Grav, UA 1.03 1 - 1.03 [facility] Urobilinogen, UA 0.2 0.2 - 12 mg/dL [facility] Urinalysis macro (dipstick) panel (U)on 04-06-2024 Bilirubin, UA Negative Negative - 4(70) +++ mg/dL [facility] Blood, UA Negative Negative - 50 Mendel/mcL [facility] Clarity, UA Clear [facility] Color, UA Yellow [facility] Glucose, UA Negative Negative - 1999(110) ++++ mg/dL [facility] Interpretation and review of laboratory results Normal [facility] Ketones, UA Negative Negative - 160(16) ++++ mg/dL [facility] Leukocytes, UA Negative Negative - 500+++ Leighann/mcL [facility] Nitrite, UA Negative Negative - Positive [facility] pH, UA 6 5 - 9 [facility] Protein, UA Negative Negative - 1999(20) ++++ mg/dL [facility] Spec Grav, UA 1.015 1 - 1.03 [facility] Urobilinogen, UA 0.2 0.2 - 12 mg/dL [facility] ALL CBC WITH AUTO DIFFon BASOPHILS ABSOLUTE AUTO 0 [facility] Basophils/100 WBC (Bld) 0.2 % 0.2 - 2.0 % [facility] Eosinophils/100 WBC (Bld) 0.7 % Low 0.9 - 7.0 % [facility] Erythrocyte distribution width (RBC) [Ratio] 12.3 % 11.0 - 15.0 % [facility] Hematocrit (Bld) [Volume fraction] 35.3 % Low 36.0 - 48.0 % [facility] Hemoglobin (Bld) [Mass/Vol] 11.8 g/dL Low 12.0 - 16.0 g/dL [facility] IMMATURE GRANULOCYTES ABS AUTO 0.04 High [facility] Immature granulocytes/100 WBC (Bld) 0.5 % 0.0 - 0.5 % [facility] Interpretation and review of laboratory results Abnormal [facility] LYMPHOCYTES ABSOLUTE AUTO 1.5 [facility] Lymphocytes/100 WBC (Bld) 17.1 % Low 20.5 - 60.0 % [facility] MCH (RBC) [Entitic mass] 31.1 pg 26.7 - 34.0 pg [facility] MCHC (RBC) [Mass/Vol] 33.4 g/dL 29.9 - 35.2 g/dL [facility] MCV (RBC) [Entitic vol] 93.1 fL 81.0 - 99.0 fL [facility] MONOCYTES ABSOLUTE AUTO 0.6 [facility] Monocytes/100 WBC (Bld) 7.2 % 1.7 - 12.0 % [facility] NEUTROPHILS ABSOLUTE AUTO 6.5 [facility] Neutrophils/100 WBC (Bld) 74.3 % 43.0 - 75.0 % [facility] Platelet mean volume (Bld) [Entitic vol] 10.6 fL 9.5 - 13.5 fL [facility] TBH EO # 0.1 [facility] TBH PLT 178 [facility] TB RBC 3.79 Low [facility] TB WBC 8.8 [facility] IGP,APTIMA HPV,AGE GDLNon AGE GDLN ACOG TESTING Note . [facility] Comment on above: TESTS RESULT FLAG U NITS REF RANGE LAB Clinician Provided Cytology Information Source.............Cervix No. of containers..01 ThinPrep Vial Age Algo ACOG Sonja... FLAG LEGEND: L-Low Normal,H-High Normal,LL-Alert Low,HH-Alert High <-Panic Low,>-Panic High,A-Abnormal,AA-Critical Abnormal Performed at: 01 =G [address] [place] [address] Radha Browne MD, HPV APTIMA Negative Negative [facility] Comment on above: This nucleic acid am plification test detects fourteen high- risk HPV types (16,18,31,33,35,39,45,51,52,56,58,59,66,68) without differentiation. Performed at: =[address] [id number] Pediatric Licensed Practical Nurse: Radha Browne MD, Phone: [phone] Performed at: [address] [id number] Pediatric Licensed Practical Nurse: Radha Browne MD, Phone: [phone] IGP, APTIMA HPV, RFX 16/18,45 Note . [facility] Comment on above: TESTS RESULT FLAG UN ITS REF RANGE LAB DIAGNOSIS: 02 NEGATIVE FOR INTRAEPITHELIAL LESION OR MALIGNANCY. Specimen adequacy: 02 Satisfactory for evaluation. No endocervical component is identified. Performed by: 02 [employer] (ASCP) . 02 Note: Note 02 The [...] High,A-Abnormal,AA-Critical Abnormal Performed at: 02 [address] [facility] [place] [address] [place] [address] Radha Browne MD, SPATULA-ALONE CERVIX [facility] Cytology Cervical or vaginal smear or scraping studyon 02-10-2024 [facility] Urinalysis macro (dipstick) panel (U)on 02-10-2024 Bilirubin, UA Negative Negative - 4(70) +++ mg/dL [facility] Blood, UA Negative Negative - 50 Mendel/mcL [facility] Clarity, UA Clear [facility] Color, UA Yellow [facility] Glucose, UA Negative Negative - 1999(110) ++++ mg/dL [facility] Interpretation and review of laboratory results Abnormal [facility] Ketones, UA Negative Negative - 160(16) ++++ mg/dL [facility] System Leukocytes, UA Trace Negative - 500+++ Leighann/mcL [facility] Nitrite, UA Negative Negative - Positive [facility] pH, UA 7 5 - 9 [facility] Protein, UA Negative Negative - 1999(20) ++++ mg/dL [facility] Spec Grav, UA 1.02 1 - 1.03 [facility] Urobilinogen, UA 0.2 0.2 - 12 mg/dL [facility] ALL THYROID STIM HORMONEon 0 01-22-2024 TSH Qn 1.921 m[IU]/L [facility] CLINISYNC [facility] Urinalysis macro (dipstick) panel (U)on 01-11-2024 Bilirubin, UA Negative Negative - 4(70) +++ mg/dL [facility] Blood, UA Negative Negative - 50 Mendel/mcL [facility] Clarity, UA Clear [facility] Color, UA Yellow [facility] Glucose, UA Negative Negative - 1999(110) ++++ mg/dL [facility] Interpretation and review of laboratory results Normal [facility] Ketones, UA Negative Negative - 160(16) ++++ mg/dL [facility] Leukocytes, UA Negative Negative - 500+++ Leighann/mcL [facility] Nitrite, UA Negative Negative - Positive [facility] pH, UA 6.0 5 - 9 [facility] Protein, UA Negative Negative - 1999(20) ++++ mg/dL [facility] Spec Grav, UA 1.015 1 - 1.03 [facility] Urobilinogen, UA 0.2 0.2 - 12 mg/dL [facility] BioFire Not Detectedon 07-12 BioFire Not Detected Not detected Normal Not Detecte T he [facility] Comment on above: Result Comment: This is a duplicate RP2.1 COVID (PCR) result to be used for statistical tracking purpose only. PERFORMED BY: [facility] [place] [address] PATHOLOGIST [employer]ITION M[employer]ER CATY NEELY M.D. Performed By: #### R RODGER PANEL UPP., BIOFIRECOVNOTDE #### [address] COVID-19 Detected/Not Detect edOrdered By: Sofie Gr on 07-13-2023 SARS-CoV-2 (COVID-19) RNA JUAN+non-probe Ql (Nph) Not detected Not Detecte [facility] Comment on above: This is a [...] Influenza A H3 Blank Space PERFORMED BY: [facility] [address] [place] [address] PATHOLOGIST COMPOSITION MIXER CATY NEELY M.D. [place] [facility] Comment on above: Performed By: #### R RODGER PANEL UPP., BIOFIRECOVNOTDE #### [facility] [address] Respiratory pathogens DNA an d RNA panel - Nasopharynx by JUAN with non-probe detectionOrdered By: Sofie Gr on 07-13-2023 Respiratory pathogens DNA and RNA panel JUAN+non-probe (Nph) [facility] CBC AUTO DIFFon 06-25-2022 BASO # 0.0 103/ul Normal 0.0-0.1 [facility] Comment on above: Performed By: #### C BC #### [facility] [address] [address] [address] Garland Kohli Basophils/100 WBC (Bld) 0.4 % Normal 0.2-2.0 [facility] Comment on above: Performed By: #### C BC #### [facility] [address] [address] [address] Garland Kohli EO # 0.1 103/ul Normal 0.0-0.7 [facility] Comment on above: Performed By: #### C BC #### [facility] [address] [address] [address] Garland Kohli Eosinophils/100 WBC (Bld) 0.9 % Normal 0.9-7.0 [facility] Comment on above: Performed By: #### C BC #### [facility] [address] [address] [address] Garland Kohli Erythrocyte distribution width (RBC) [Ratio] 12.4 % Normal 11.0-15.0 [facility] Comment on above: Performed By: #### C BC #### [facility] [address] [address] [address] Garland Kohli Hematocrit (Bld) [Volume fraction] 31.4 % Critically low 36.0-48.0 [facility] Comment on above: Performed By: #### C BC #### [facility] [address] [address] [address] Garland Kohli Hemoglobin (Bld) [Mass/Vol] 10.4 g/dL Critically low 12.0-16.0 [facility] Comment on above: Performed By: #### C BC #### [facility] [address] [address] [address] Garland Kohli IG # 0.04 10e3/ul Critically high 0.00-0.03 [facility] Comment on above: Performed By: #### C BC #### [facility] [address] [place] [address] Dr. Garland Kohli IG % 0.4 % Normal 0.0-0.5 [facility] Comment on above: Performed By: #### C BC #### [facility] [address] [place] [address] Dr. Garland Kohli LYMPH # 2.0 103/ul Normal 1.2-3.8 [facility] Comment on above: Performed By: #### C BC #### [facility] [address] [place] [address] Dr. Garland Kohli Lymphocytes/100 WBC (Bld) 22.1 % Normal 20.5-60.0 [facility] Comment on above: Performed By: #### C BC #### [facility] [address] [place] [address] Dr. Garland Kohli MANUAL DIFF REQ NO Normal [facility] Comment on above: Performed By: #### C BC #### [facility] [address] [place] [address] Dr. Garland Kohli MCH (RBC) [Entitic mass] 30.1 pg Normal 26.7-34.0 [facility] Comment on above: Performed By: #### C BC #### [facility] [address] [place] [address] Dr. Garland Kohli MCHC (RBC) [Mass/Vol] 33.1 g/dL Normal 29.9-35.2 [facility] Comment on above: Performed By: #### C BC #### [facility] [address] [place] [address] Dr. Garland Kohli MCV (RBC) [Entitic vol] 91.0 fL Normal 81.0-99.0 [facility] Comment on above: Performed By: #### C BC #### [facility] [address] [place] [address] Dr. Garland Kohli MONO # 0.8 103/ul Normal 0.3-0.8 [facility] Comment on above: Performed By: #### C BC #### [facility] [address] [address] [address] Garland Kohli Monocytes/100 WBC (Bld) 8.8 % Normal 1.7-12.0 [facility] Comment on above: Performed By: #### C BC #### [facility] [address] [place] [address] Dr. Garland Kohli NEUT # 6.0 103/ul Normal 1.4-6.5 [facility] Comment on above: Performed By: #### C BC #### [facility] [address] [place] [address] Dr. Garland Kohli Neutrophils/100 WBC (Bld) 67.4 % Normal 43.0-75.0 [facility] Comment on above: Performed By: #### C BC #### [facility] [address] [place] [address] Dr. Garland Kohli Platelet mean volume (Bld) [Entitic vol] 12.0 fL Normal 9.5-13.5 [facility] Comment on above: Performed By: #### C BC #### [facility] [address] [place] [address] Dr. Garland Kohli PLT 151 103/ul Normal 150-450 [facility] Comment on above: Performed By: #### C BC #### [facility] [address] [place] [address] Dr. Garland Kohli RBC 3.45 106/ul Critically low 4.20-5.40 [facility] Comment on above: Performed By: #### C BC #### [facility] [address] [place] [address] Dr. Garland Kohli WBC 8.9 103/ul Normal 4.0-11.0 [facility] Comment on above: Performed By: #### C BC #### [facility] [address] [place], [place] [id number] Dr. Garland Kohli CBC AUTO DIFFon 06-23-2022 BASO # 0.0 103/ul Normal 0.0-0.1 [facility] Comment on above: Performed By: #### C BC #### [facility] [address] [place] [address] Dr. Garland Kohli Basophils/100 WBC (Bld) 0.4 % Normal 0.2-2.0 [facility] Comment on above: Performed By: #### C BC #### [facility] [address] [place] [address] Dr. Garland Kohli EO # 0.1 103/ul Normal 0.0-0.7 [facility] Comment on above: Performed By: #### C BC #### [facility] [address] [place] [address] Dr. Garland Kohli Eosinophils/100 WBC (Bld) 0.8 % Critically low 0.9-7.0 [facility] Comment on above: Performed By: #### C BC #### [facility] [address] [place] [address] Dr. Garland Kohli Erythrocyte distribution width (RBC) [Ratio] 12.4 % Normal 11.0-15.0 [facility] Comment on above: Performed By: #### C BC #### [facility] [address] [place] [address] Dr. Garland Kohli Hematocrit (Bld) [Volume fraction] 34.5 % Critically low 36.0-48.0 [facility] Comment on above: Performed By: #### C BC #### [facility] [address] [place] [address] Dr. Garland Kohli Hemoglobin (Bld) [Mass/Vol] 11.6 g/dL Critically low 12.0-16.0 [facility] Comment on above: Performed By: #### C BC #### [facility] [address] [place] [address] Dr. Garland Kohli IG # 0.04 10e3/ul Critically high 0.00-0.03 [facility] Comment on above: Performed By: #### C BC #### [facility] [address] [address] [address] Garland Kohli IG % 0.5 % Normal 0.0-0.5 [facility] Comment on above: Performed By: #### C BC #### [facility] [address] [address] [address] Garland Kohli LYMPH # 1.3 103/ul Normal 1.2-3.8 The [facility] Comment on above: Performed By: #### C BC #### [facility] [address] [place] [address] Dr. Garland Kohli Lymphocytes/100 WBC (Bld) 17.6 % Critically low 20.5-60.0 The [facility] Comment on above: Performed By: #### C BC #### [facility] [address] [place] [address] Dr. Garland Kohli MANUAL DIFF REQ NO Normal [facility] Comment on above: Performed By: #### C BC #### [facility] [address] [place] [address] Dr. Garland Kohli MCH (RBC) [Entitic mass] 29.6 pg Normal 26.7-34.0 [facility] Comment on above: Performed By: #### C BC #### [facility] [address] [place] [address] Dr. Garland Kohli MCHC (RBC) [Mass/Vol] 33.6 g/dL Normal 29.9-35.2 [facility] Comment on above: Performed By: #### C BC #### [facility] [address] [place] [address] Dr. Garland Kohli MCV (RBC) [Entitic vol] 88.0 fL Normal 81.0-99.0 [facility] Comment on above: Performed By: #### C BC #### [facility] [address] [place] [address] Dr. Garland Kohli MONO # 0.9 103/ul Critically high 0.3-0.8 [facility] Comment on above: Performed By: #### C BC #### [facility] [address] [place], [place] [id number] Dr. Garland Kohli Monocytes/100 WBC (Bld) 11.7 % Normal 1.7-12.0 [facility] Comment on above: Performed By: #### C BC #### [facility] [address] [place] [address] Dr. Garland Kohli NEUT # 5.1 103/ul Normal 1.4-6.5 [facility] Comment on above: Performed By: #### C BC #### [facility] [address] [place] [address] Dr. Garland Kohli Neutrophils/100 WBC (Bld) 69.0 % Normal 43.0-75.0 [facility] Comment on above: Performed By: #### C BC #### [facility] [address] [place] [address] Dr. Garland Kohli Platelet mean volume (Bld) [Entitic vol] 12.1 fL Normal 9.5-13.5 The [facility] Comment on above: Performed By: #### C BC #### [facility] [address] [place] [address] Dr. Garland Kohli PLT 193 103/ul Normal 150-450 [facility] Comment on above: Performed By: #### C BC #### [facility] [address] [place] [address] Dr. Garland Kohli RBC 3.92 106/ul Critically low 4.20-5.40 [facility] Comment on above: Performed By: #### C BC #### [facility] [address] [place] [address] Dr. Garland Kohli WBC 7.4 103/ul Normal 4.0-11.0 The [facility] Comment on above: Performed By: #### C BC #### [facility] [address] [place] [address] Dr. Garland Kohli DRUG SCREEN RAPID (URINE)on 06-23-2022 AMP Negative Normal NEGATIVE [facility] Comment on above: Performed By: #### D RUGRPD #### [facility] [address] [place] [address] Dr. Garland Kohli BAR Negative Normal NEGATIVE [facility] Comment on above: Performed By: #### D RUGRPD #### [facility] [address] [place] [address] Dr. Garland Kohli BUP Negative Normal NEGATIVE [facility] Comment on above: Performed By: #### D RUGRPD #### [facility] [address] [place] [address] Dr. Garland Kohli BZO Negative Normal NEGATIVE [facility] Comment on above: Performed By: #### D RUGRPD #### [facility] [address] [place] [address] Dr. Garland Kohli JUANI Negative Normal NEGATIVE [facility] Comment on above: Performed By: #### D RUGRPD #### [facility] [address] [place] [address] Dr. Garland Kohli CUT-OFFS SEE BELOW Normal [facility] Comment on above: Result Comment: AMP [...] ng/mL Performed By: #### D RUGRPD #### [facility] [address] [place] [address] Dr. Garland Kohli DRUG CUT HEADER DRUG CLASS TEST SYSTEM CUT-OFF CONCENTRATIONS ARE FOLLOWS: Normal The [facility] Comment on above: Performed By: #### D RUGRPD #### [facility] [address] [place] [address] Dr. Garland Kohli mAMP Negative Normal NEGATIVE [facility] Comment on above: Performed By: #### D RUGRPD #### [facility] [address] [place] [address] Dr. Garland Kohli MTD Negative Normal NEGATIVE [facility] Comment on above: Performed By: #### D RUGRPD #### [facility] [address] [place] [address] Dr. Garland Kohli OPI Negative Normal NEGATIVE [facility] Comment on above: Performed By: #### D RUGRPD #### [facility] [address] [place] [address] Dr. Garland Kohli OXY Negative Normal NEGATIVE [facility] Comment on above: Performed By: #### D RUGRPD #### [facility] [address] [place] [address] Dr. Garland Kohli PCP Negative Normal NEGATIVE [facility] Comment on above: Performed By: #### D RUGRPD #### [facility] [address] [place] [address] Dr. Garland Kohli PPX Negative Normal NEGATIVE [facility] Comment on above: Performed By: #### D RUGRPD #### [facility] [address] [place] [address] Dr. Garland Kohli TCA Negative Normal NEGATIVE [facility] Comment on above: Performed By: #### D RUGRPD #### [facility] [address] [place] [address] Dr. Garland Kohli THC Negative Normal NEGATIVE [facility] Comment on above: Performed By: #### D RUGRPD #### [facility] [address] [place] [address] Dr. Garland Kohli TYPE AND SCREENon 06-23-2022 TYPE AND SCREEN Negative Normal [facility] Comment on above: Performed By: #### T NS #### [facility] [address] [place] [address] Dr. Garland Kohli FREE T4on 06-07-2022 Free T4 [Mass/Vol] 0.76 ng/dL Normal 0.76-1.46 [facility] Comment on above: Performed By: #### C BC #### [facility] [address] [place] [address] Dr. Garland Kohli TSHon 06-07-2022 TSH 1.393 uIU/mL Normal 0.358-3.740 [facility] Comment on above: Performed By: #### T SH #### [facility] [address] [place] [address] Dr. Garland Kohli GROUP B STREP CULTUREon 02 S. agalactiae Ag Ql (Unsp spec) Culture Observations: NEGATIVE FOR GROUP B STREPTOCOCCUS. Normal The [facility] Comment on above: Performed By: #### C BC #### [facility] [address] [place] [address] Dr. Garland Kohli GTT 3 HR PREGon 04-16-2022 Glucose [Mass/Vol] 87 mg/dL Normal 74-106 [facility] Comment on above: Performed By: #### G TT3P #### [facility] [address] [place] [address] Dr. Garland Kohli Glucose [Mass/Vol] 148 mg/dL Normal [facility] Comment on above: Performed By: #### G TT3P #### [facility] [address] [place] [address] Dr. Garland Kohli Glucose [Mass/Vol] 128 mg/dL Normal [facility] Comment on above: Performed By: #### G TT3P #### [facility] [address] [place] [address] Dr. Garland Kohli Glucose [Mass/Vol] 105 mg/dL Normal [facility] Comment on above: Performed By: #### G TT3P #### [facility] [address] [place] [address] Dr. Garland Kohli CBC AUTO DIFFon 04-04-2022 BASO # 0.0 103/ul Normal 0.0-0.1 [facility] Comment on above: Performed By: #### G TT3P #### [facility] [address] [place] [address] Dr. Garland Kohli Basophils/100 WBC (Bld) 0.2 % Normal 0.2-2.0 [facility] Comment on above: Performed By: #### G TT3P #### [facility] [address] [place] [address] Dr. Garland Kohli EO # 0.0 103/ul Normal 0.0-0.7 [facility] Comment on above: Performed By: #### G TT3P #### [facility] [address] [place] [address] Dr. Garland Kohli Eosinophils/100 WBC (Bld) 0.4 % Critically low 0.9-7.0 [facility] Comment on above: Performed By: #### G TT3P #### [facility] [address] [place] [address] Dr. Garland Kohli Erythrocyte distribution width (RBC) [Ratio] 12.9 % Normal 11.0-15.0 [facility] Comment on above: Performed By: #### G TT3P #### [facility] [address] [place] [address] Dr. Garland Kohli Hematocrit (Bld) [Volume fraction] 32.5 % Critically low 36.0-48.0 [facility] Comment on above: Performed By: #### G TT3P #### [facility] [address] [place] [address] Dr. Garland Kohli Hemoglobin (Bld) [Mass/Vol] 11.2 g/dL Critically low 12.0-16.0 [facility] Comment on above: Performed By: #### G TT3P #### [facility] [address] [place] [address] Dr. Garland Kohli IG # 0.07 10e3/ul Critically high 0.00-0.03 [facility] Comment on above: Performed By: #### G TT3P #### [facility] [address] [place] [address] Dr. Garland Kohli IG % 0.8 % Critically high 0.0-0.5 [facility] Comment on above: Performed By: #### G TT3P #### [facility] [address] [place] [address] Dr. Garland Kohli LYMPH # 0.9 103/ul Critically low 1.2-3.8 [facility] Comment on above: Performed By: #### G TT3P #### [facility] [address] [place], [place] [id number] Dr. Garland Kohli Lymphocytes/100 WBC (Bld) 10.4 % Critically low 20.5-60.0 The [facility] Comment on above: Performed By: #### G TT3P #### [facility] [address] [place] [address] Dr. Garland Kohli MANUAL DIFF REQ NO Normal [facility] Comment on above: Performed By: #### G TT3P #### [facility] [address] [place] [address] Dr. Garland Kohli MCH (RBC) [Entitic mass] 31.4 pg Normal 26.7-34.0 The [facility] Comment on above: Performed By: #### G TT3P #### [facility] [address] [place] [address] Dr. Garland Kohli MCHC (RBC) [Mass/Vol] 34.5 g/dL Normal 29.9-35.2 The [facility] Comment on above: Performed By: #### G TT3P #### [facility] [address] [place] [address] Dr. Garland Kohli MCV (RBC) [Entitic vol] 91.0 fL Normal 81.0-99.0 The [facility] Comment on above: Performed By: #### G TT3P #### [facility] [address] [place] [address] Dr. Garland Kohli MONO # 1.1 103/ul Critically high 0.3-0.8 The [facility] Comment on above: Performed By: #### G TT3P #### [facility] [address] [place] [address] Dr. Garland Kohli Monocytes/100 WBC (Bld) 12.5 % Critically high 1.7-12.0 The [facility] Comment on above: Performed By: #### G TT3P #### [facility] [address] [place] [address] Dr. Garland Kohli NEUT # 6.3 103/ul Normal 1.4-6.5 The [facility] Comment on above: Performed By: #### G TT3P #### [facility] [address] [address] [address] Garland Kohli Neutrophils/100 WBC (Bld) 75.7 % Critically high 43.0-75.0 [facility] Comment on above: Performed By: #### G TT3P #### [facility] [address] [place] [address] Dr. Garland Kohli Platelet mean volume (Bld) [Entitic vol] 10.5 fL Normal 9.5-13.5 [facility] Comment on above: Performed By: #### G TT3P #### [facility] [address] [place] [address] Dr. Garland Kohli PLT 181 103/ul Normal 150-450 [facility] Comment on above: Performed By: #### G TT3P #### [facility] [address] [place] [address] Dr. Garland Kohli RBC 3.57 106/ul Critically low 4.20-5.40 [facility] Comment on above: Performed By: #### G TT3P #### [facility] [address] [place] [address] Dr. Garland Kohli WBC 8.4 103/ul Normal 4.0-11.0 [facility] Comment on above: Performed By: #### G TT3P #### [facility] [address] [place] [address] Dr. Garland Kohli CTA CHEST WO W [...] DEANNA LINN Date: 2022-04-04 15:25 Normal The [facility] PROF CHEM 8 (BAS METB)on Anion gap [Moles/Vol] 13.2 mmol/L Normal [facility] Comment on above: Performed By: #### G TT3P #### [facility] [address] [place] [address] Dr. Garland Kohli Calcium [Mass/Vol] 8.5 mg/dL Normal 8.5-10.1 [facility] Comment on above: Performed By: #### G TT3P #### [facility] [address] [place] [address] Dr. Garland Kohli Chloride [Moles/Vol] 103 mmol/L Normal 98-107 [facility] Comment on above: Performed By: #### G TT3P #### [facility] [address] [place] [address] Dr. Garland Kohli CO2 [Moles/Vol] 23.4 mmol/L Normal 21.0-32.0 [facility] Comment on above: Performed By: #### G TT3P #### [facility] [address] [place] [address] Dr. Garland Kohli Creatinine [Mass/Vol] 0.43 mg/dL Critically low 0.55-1.02 [facility] Comment on above: Performed By: #### G TT3P #### [facility] [address] [place] [address] Dr. Garland Kohli EGFR-AF GREENLANDIC >60 Normal >=60 [facility] Comment on above: Performed By: #### G TT3P #### [facility] [address] [place] [address] Dr. Garland Kohli EGFR-NON AF GRE[place]LANDIC >60 Normal >=60 [facility] Comment on above: Performed By: #### G TT3P #### [facility] [address] [place] [address] Dr. Garland Kohli Glucose [Mass/Vol] 108 mg/dL Critically high 74-106 T [facility] Comment on above: Performed By: #### G TT3P #### [facility] [address] [place] [address] Dr. Garland Kohli Potassium [Moles/Vol] 3.6 mmol/L Normal 3.5-5.1 [facility] Comment on above: Performed By: #### G TT3P #### [facility] [address] [place] [address] Dr. Garland Kohli Sodium [Moles/Vol] 136 mmol/L Normal 136-145 [facility] Comment on above: Performed By: #### G TT3P #### [facility] [address] [place] [address] Dr. Garland Kohli Urea nitrogen [Mass/Vol] 5.0 mg/dL Critically low 7.0-18.0 [facility] Comment on above: Performed By: #### G TT3P #### [facility] [address] [place] [address] Dr. Garland Kohli Urea nitrogen/Creatinine [Mass ratio] 11.6 mg/mg Normal [facility] Comment on above: Performed By: #### G TT3P #### [facility] [address] [place] [address] Dr. Garland Kohli TROPONIN, HIGH SENSITIVITYon 04-04-2022 HSTROP 9.3 pg/mL Normal 4.0-51.3 [facility] Comment on above: Result Comment: CUT- OFF POINTS HAVE BEEN ESTABLISHED BASED ON THE FOURTH UNIVERSAL DEFINITIONS OF MYOCARDIAL INFARCTION. THE UPPER REFERENCE LIMIT (URL) OF TROPONIN, DEFINED THE 99TH PERCENTILE OF cTnI DISTRIBUTION IN A REFERENCE POPULATION, HAS BEEN CONFIRMED THE DECISION THRESHOLD FOR [place] DIAGNOSIS. Performed By: #### G TT3P #### [facility] [address] [place] [address] Dr. Garland Kohli CBC AUTO DIFFon 03-26-2022 BASO # 0.0 103/ul Normal 0.0-0.1 [facility] Comment on above: Performed By: #### G TT3P #### [facility] [address] [place] [address] Dr. Garland Kohli Basophils/100 WBC (Bld) 0.2 % Normal 0.2-2.0 [facility] Comment on above: Performed By: #### G TT3P #### [facility] [address] [place] [address] Dr. Garland Kohli EO # 0.1 103/ul Normal 0.0-0.7 [facility] Comment on above: Performed By: #### G TT3P #### [facility] [address] [place] [address] Dr. Garland Kohli Eosinophils/100 WBC (Bld) 1.0 % Normal 0.9-7.0 [facility] Comment on above: Performed By: #### G TT3P #### [facility] [address] [place] [address] Dr. Garland Kohli Erythrocyte distribution width (RBC) [Ratio] 12.8 % Normal 11.0-15.0 [facility] Comment on above: Performed By: #### G TT3P #### [facility] [address] [place] [address] Dr. Garland Kohli Hematocrit (Bld) [Volume fraction] 36.2 % Normal 36.0-48.0 [facility] Comment on above: Performed By: #### G TT3P #### [facility] [address] [place] [address] Dr. Garland Kohli Hemoglobin (Bld) [Mass/Vol] 12.2 g/dL Normal 12.0-16.0 [facility] Comment on above: Performed By: #### G TT3P #### [facility] [address] [place] [address] Dr. Garland Kohli IG # 0.08 10e3/ul Critically high 0.00-0.03 [facility] Comment on above: Performed By: #### G TT3P #### [facility] [address] [place] [address] Dr. Garland Kohli IG % 0.9 % Critically high 0.0-0.5 The [facility] Comment on above: Performed By: #### G TT3P #### [facility] [address] [place] [address] Dr. Garland Kohli LYMPH # 1.7 103/ul Normal 1.2-3.8 [facility] Comment on above: Performed By: #### G TT3P #### [facility] [address] [address] [address] Garland Kohli Lymphocytes/100 WBC (Bld) 17.8 % Critically low 20.5-60.0 [facility] Comment on above: Performed By: #### G TT3P #### [facility] [address] [address] [address] Garland Kohli MANUAL DIFF REQ NO Normal [facility] Comment on above: Performed By: #### G TT3P #### [facility] [address] [place] [address] Dr. Garland Kohli MCH (RBC) [Entitic mass] 30.7 pg Normal 26.7-34.0 [facility] Comment on above: Performed By: #### G TT3P #### [facility] [address] [place] [address] Dr. Garland Kohli MCHC (RBC) [Mass/Vol] 33.7 g/dL Normal 29.9-35.2 [facility] Comment on above: Performed By: #### G TT3P #### [facility] [address] [place] [address] Dr. Garland Kohli MCV (RBC) [Entitic vol] 91.2 fL Normal 81.0-99.0 [facility] Comment on above: Performed By: #### G TT3P #### [facility] [address] [place] [address] Dr. Garland Kohli MONO # 0.6 103/ul Normal 0.3-0.8 [facility] Comment on above: Performed By: #### G TT3P #### [facility] [address] [place] [address] Dr. Garland Kohli Monocytes/100 WBC (Bld) 6.0 % Normal 1.7-12.0 [facility] Comment on above: Performed By: #### G TT3P #### [facility] [address] [place] [address] Dr. Garland Kohli NEUT # 6.9 103/ul Critically high 1.4-6.5 [facility] Comment on above: Performed By: #### G TT3P #### [facility] [address] [address] [address] Garland Kohli Neutrophils/100 WBC (Bld) 74.1 % Normal 43.0-75.0 [facility] Comment on above: Performed By: #### G TT3P #### [facility] [address] [address] [address] Garland Kohli Platelet mean volume (Bld) [Entitic vol] 10.2 fL Normal 9.5-13.5 [facility] Comment on above: Performed By: #### G TT3P #### [facility] [address] [place] [address] Dr. Garland Kohli PLT 217 103/ul Normal 150-450 [facility] Comment on above: Performed By: #### G TT3P #### [facility] [address] [place] [address] Dr. Garland Kohli RBC 3.97 106/ul Critically low 4.20-5.40 [facility] Comment on above: Performed By: #### G TT3P #### [facility] [address] [address] [address] Garland Kohli WBC 9.3 103/ul Normal 4.0-11.0 [facility] Comment on above: Performed By: #### G TT3P #### [facility] [address] [place] [address] Dr. Garland Kohli GLUCOSE - 1HRon 03-26-2022 Glucose [Mass/Vol] 155 mg/dL Critically high 74-106 [facility] Comment on above: Performed By: #### C BC #### [facility] [address] [place] [address] Dr. Garland Kohli US PREG ANATOMY SINGLEon [...] YAAKOV TERAN Date: 2022-02-09 19:30 Normal [facility] AFP MATERNAL FOR SPINA BIFID Aon 01-29-2022 AFP MoM 0.76 Normal [facility] Comment on above: Performed By: #### G TT3P #### [facility] [address] [address] [address] Garland Kohli AFP Value 35.4 ng/mL Normal [facility] Comment on above: Performed By: #### G TT3P #### [facility] [address] [address] [address] Garland Kohli AFP, Serum for Spina Bifida Report Normal [facility] Comment on above: Performed By: #### G TT3P #### [facility] [address] [address] [address] Garland Kohli Comment Comment Normal [facility] Comment on above: Result Comment: Stanley Almodovar, Ph.D., [facility] Director . References: Available Upon Request. . Multiples Of Median Cutoffs For AFP Elevations Mark 2.5 Black 2.8 IDD 2.0 Twins 4.5 Abbreviation Definitions IDD - Insulin Dep Diabetes OSBR - Open Spina Bifida Risk . For further inquiries contact [facility] at [phone]. . This test was developed and its performance characteristics determined by [employer]. It has not been cleared or approved by the Food and Drug Administration. Performed By: #### G TT3P #### [facility] [address] [address] [address] Garland Izquierdo Age Collection Date 18.1 weeks Normal [facility] Comment on above: Performed By: #### G TT3P #### [facility] [address] [place] [address] Dr. Garland Kohli Gestat, Age Based on Ultrasound Normal [facility] Comment on above: Result Comment: 09:4 on 11/26/2021 Recalculations are not recommended when gestational dating by LMP and ultrasound are within 10 days. Performed By: #### G TT3P #### [facility] [address] [address] [address] Garland Kohli Insulin Dep Diabetes No Normal [facility] Comment on above: Performed By: #### G TT3P #### [facility] [address] [place] [address] Dr. Garland Kohli Interpretation Comment Normal [facility] Comment on above: Result Comment: [...] Customer Services to discuss available options. The [place] recommends amniocentesis be offered to women age 35 and older. Performed By: #### G TT3P #### [facility] [address] [place] [address] Dr. Garland Kohli [age] Normal [facility] Comment on above: Performed By: #### G TT3P #### [facility] [address] [address] [address] Garland Kohli Multiple Gestation No Normal [facility] Comment on above: Performed By: #### G TT3P #### [facility] [address] [address] [address] Garland Kohli OS[place] 1 [place] [address] [facility] Comment on above: Performed By: #### G TT3P #### [facility] [address] [address] [address] Garland Kohli PDF . [facility] Comment on above: Performed By: #### G TT3P #### [facility] [address] [address] [address] Garland Kohli Race [facility] Comment on above: Performed By: #### G TT3P #### [facility] [address] [address] [address] Garland Kohli Test Results: Negative [facility] Comment on above: Performed By: #### G TT3P #### [facility] [address] [address] [address] Garland Kohli PAP ACOG PANEL 2: 21 to 29on 01-23-2022 . . [facility] Comment on above: Performed By: #### 4 [id number] #### [facility] [address] [address] [address] Garland Kohli Age Gdln ACOG Testing [facility] Comment on above: Performed By: #### 4 [id number] #### [facility] [address] [address] [address] Garland Kohli DIAGNOSIS: Comment [facility] Comment on above: Result Comment: NEGA TIVE FOR INTRAEPITHELIAL LESION OR MALIGNANCY. Performed By: #### 4 [id number] #### [facility] [address] [place] [address] Dr. Garland Kohli Methodology: Comment [facility] Comment on above: Result Comment: This liquid based ThinPrep(R) pap test was screened with the use of an image guided system. Performed By: #### 4 [id number] #### [facility] [address] [place] [address] Dr. Garland Kohli Note: Comment Normal [facility] Comment on above: Result Comment: The Pap smear is a screening test designed to aid in the detection of premalignant and malignant conditions of the uterine cervix. It is not a diagnostic procedure and should not be used as the sole means of detecting cervical cancer. Both false-positive and false-negative reports do occur. . Performed By: #### 4 [id number] #### [facility] [address] [place] [address] Dr. Garland Kohli Performed by: Comment Normal [facility] Comment on above: Result Comment: [employer] (ASCP) Performed By: #### 4 [id number] #### [facility] [address] [place] [address] Dr. Garland Kohli Reflex Criteria: Comment Normal [facility] Comment on above: Result Comment: The HPV DNA reflex criteria were not met with this specimen result therefore, no HPV testing was performed. . Performed By: #### 4 [id number] #### [facility] [address] [place] [address] Dr. Garland Kohli Specimen adequacy: Comment Normal [facility] Comment on above: Result Comment: Sati sfactory for evaluation. No endocervical component is identified. Performed By: #### 4 [id number] #### [facility] [address] [place] [address] Dr. Garland Kohli CHLAMYDIA/GONOCOCCUS JUAN (SW AB/URINE/PAPon 01-20-2022 Chlamydia trachomatis, JUAN Negative Normal Negative [facility] Comment on above: Performed By: #### C BC #### [facility] [address] [place] [address] Dr. Garland Kohli Neisseria gonorrhoeae, JUAN Negative Normal Negative [facility] Comment on above: Performed By: #### C BC #### [facility] [address] [place] [address] Dr. Garland Kohli TSHon 01-04-2022 TSH 1.707 uIU/mL Normal 0.358-3.740 [facility] Comment on above: Performed By: #### G TT3P #### [facility] [address] [place] [address] Dr. Garland Kohli HEPATITIS C VIRUS AB W/ REFL EX QUANTon 12-17-2021 HCV AB <0.1 Normal 0.0-0.9 [facility] Comment on above: Performed By: #### G TT3P #### [facility] [address] [place] [address] Dr. Garland Kohli Interpretation: Comment Normal [facility] Comment on above: Result Comment: Nega tive Not infected with HCV, unless recent infection is suspected or other evidence exists to indicate HCV infection. Performed By: #### G TT3P #### [facility] [address] [place] [address] Dr. Garland Kohli CULTURE URINEon 12-15-2021 CULTURE URINE Culture Observations : GREATER THAN TWO ORGANISMS PRESENT. PLEASE RESUBMIT CLEAN CATCH MID-STREAM URINE IF CLINICALLY INDICATED. Normal [facility] Comment on above: Performed By: #### U RCX #### [facility] [address] [place] [address] Dr. Garland Kohli HEP B SURFACE ANTIGEN SCREEN on 12-15-2021 HBsAg Screen Negative Normal Negative [facility] Comment on above: Performed By: #### H BSANS #### [facility] [address] [place] [address] Dr. Garland Kohli HIV 1 AND 2 WITH REFLEXon HIV Screen 4th Generation wRfx Non-Reactive Normal Non Reactive [facility] Comment on above: Result Comment: HIV Negative HIV-1/HIV-2 antibodies and HIV-1 p24 antigen were NOT detected. There is no laboratory evidence of HIV infection. Performed By: #### H IV12 #### [facility] [address] [place] [address] Dr. Garland Kohli RPR QUANTon 12-15-2021 Rapid Plasma Reagin, Quant Non-Reactive Normal NonRea<1:1 [facility] Comment on above: Result Comment: Plea se Note: This test does not meet current guidelines for screening and diagnosis of syphilis. This test is intended for following treatment response in patients being treated for syphilis infection. To screen for syphilis infection, a reflex cascade that includes both RPR and a treponema-specific assay should be utilized, such as Treponema pallidum (Syphilis) Screening [place] (623062) or Rapid Plasma Reagin (RPR) Test With Reflex to Quantitative RPR and Confirmatory Treponema pallidum Antibodies (792546). Performed By: #### G TT3P #### [facility] [address] [place] [address] Dr. Garland Kohli RUBELLA AB IGGon 12-15-2021 Rubella Antibodies, IgG 4.72 index Normal Immune >0.99 [facility] Comment on above: Result Comment: Non- immune <0.90 Equivocal 0.90 - 0.99 Immune >0.99 Performed By: #### G TT3P #### [facility] [address] [place] [address] Dr. Garland Kohli CBC AUTO DIFFon 12-14-2021 BASO # 0.0 103/ul Normal 0.0-0.1 [facility] Comment on above: Performed By: #### C BC #### [facility] [address] [place] [address] Dr. Garland Kohli Basophils/100 WBC (Bld) 0.3 % Normal 0.2-2.0 [facility] Comment on above: Performed By: #### C BC #### [facility] [address] [place] [address] Dr. Garland Kohli EO # 0.1 103/ul Normal 0.0-0.7 [facility] Comment on above: Performed By: #### C BC #### [facility] [address] [place] [address] Dr. Garland Kohli Eosinophils/100 WBC (Bld) 0.8 % Critically low 0.9-7.0 [facility] Comment on above: Performed By: #### C BC #### [facility] [address] [place] [address] Dr. Garland Kohli Erythrocyte distribution width (RBC) [Ratio] 12.6 % Normal 11.0-15.0 [facility] Comment on above: Performed By: #### C BC #### [facility] [address] [place] [address] Dr. Garland Kohli Hematocrit (Bld) [Volume fraction] 34.3 % Critically low 36.0-48.0 [facility] Comment on above: Performed By: #### C BC #### [facility] [address] [place] [address] Dr. Garland Kohli Hemoglobin (Bld) [Mass/Vol] 11.7 g/dL Critically low 12.0-16.0 [facility] Comment on above: Performed By: #### C BC #### [facility] [address] [place] [address] Dr. Garland Kohli IG # 0.03 10e3/ul Normal 0.00-0.03 [facility] Comment on above: Performed By: #### C BC #### [facility] [address] [place] [address] Dr. Garland Kohli IG % 0.4 % Normal 0.0-0.5 [facility] Comment on above: Performed By: #### C BC #### [facility] [address] [place] [address] Dr. Garland Kohli LYMPH # 1.5 103/ul Normal 1.2-3.8 [facility] Comment on above: Performed By: #### C BC #### [facility] [address] [place] [address] Dr. Garland Kohli Lymphocytes/100 WBC (Bld) 21.1 % Normal 20.5-60.0 [facility] Comment on above: Performed By: #### C BC #### [facility] [address] [place] [address] Dr. Garland Kohli MANUAL DIFF REQ NO Normal [facility] Comment on above: Performed By: #### C BC #### [facility] [address] [place] [address] Dr. Garland Kohli MCH (RBC) [Entitic mass] 30.5 pg Normal 26.7-34.0 [facility] Comment on above: Performed By: #### C BC #### [facility] [address] [address] [address] Garland Kohli MCHC (RBC) [Mass/Vol] 34.1 g/dL Normal 29.9-35.2 [facility] Comment on above: Performed By: #### C BC #### [facility] [address] [place] [address] Dr. Garland Kohli MCV (RBC) [Entitic vol] 89.6 fL Normal 81.0-99.0 [facility] Comment on above: Performed By: #### C BC #### [facility] [address] [place] [address] Dr. Garland Kohli MONO # 0.5 103/ul Normal 0.3-0.8 [facility] Comment on above: Performed By: #### C BC #### [facility] [address] [place] [address] Dr. Garland Kohli Monocytes/100 WBC (Bld) 7.1 % Normal 1.7-12.0 [facility] Comment on above: Performed By: #### C BC #### [facility] [address] [place] [address] Dr. Garland Kohli NEUT # 5.0 103/ul Normal 1.4-6.5 [facility] Comment on above: Performed By: #### C BC #### [facility] [address] [place] [address] Dr. Garland Kohli Neutrophils/100 WBC (Bld) 70.3 % Normal 43.0-75.0 [facility] Comment on above: Performed By: #### C BC #### [facility] [address] [place] [address] Dr. Garland Kohli Platelet mean volume (Bld) [Entitic vol] 10.1 fL Normal 9.5-13.5 [facility] Comment on above: Performed By: #### C BC #### [facility] [address] [place] [address] Dr. Garland Kohli PLT 234 103/ul Normal 150-450 [facility] Comment on above: Performed By: #### C BC #### [facility] [address] [address] [address] Garland Kohli RBC 3.83 106/ul Critically low 4.20-5.40 [facility] Comment on above: Performed By: #### C BC #### [facility] [address] [address] [address] Garland Kohli WBC 7.1 103/ul Normal 4.0-11.0 [facility] Comment on above: Performed By: #### C BC #### [facility] [address] [place] [address] Dr. Garland Kohli GLYCOHEMOGLOBIN A1Con 2021 ADA RECOMMENDATION SEE BELOW Normal [facility] Comment on above: Result Comment: ADA RECOMMENDED LIMIT 4.0 - 6.0 ADA THERAPEUTIC TARGET < 7.0 ACTION SUGGESTED > 7.0 Performed By: #### A 1C #### [facility] [address] [place] [address] Dr. Garland Kohli Glucose [Mass/Vol] 103 mg/dL Normal [facility] Comment on above: Performed By: #### A 1C #### [facility] [address] [place] [address] Dr. Garland Kohli HbA1c (Bld) [Mass fraction] 5.2 % Normal 4.5-6.2 [facility] Comment on above: Performed By: #### A 1C #### [facility] [address] [place] [address] Dr. Garland Kohli MARTÍNEZ BOX TEST PT SEND OUTo n 12-14-2021 SENT TO REF LAB 12/14/21 Normal [facility] Comment on above: Performed By: #### G TT3P #### [facility] [address] [place] [address] Dr. Garland Kohli TYPE AND SCREENon 12-14-2021 TYPE AND SCREEN Negative Normal [facility] Comment on above: Performed By: #### C BC #### [facility] [address] [place] [address] Dr. Garland Kohli US PREG TVon 11-26-2021 [...] by: YAAKOV TERAN Date: 2021-11-26 18:36 Normal [facility] OPERATIVE REPORTon 9 OPERATIVE REPORT [address] [id number] OPERATIVE REPORT PATIENT NAME: CECELIA JOHNSON : 1995 MED REC NO: [id number] ROOM: ACCOUNT NO: [id number] ADMIT DATE: 11/24/2018 PROVIDER: Mode Renee DATE [...] infiltrated into the drains, this was for meterman pain control. Steri-Strips applied throughout and then bulky gauze dressing as well as surgical bra was applied. The patient was awoken, extubated, and transported to the recovery room in stable condition. Sponge, needle, and instrument counts were reported correct x2 at the end of the case. MODE RENEE [id number] Doc#: [id number] CC: Carlos Alberto Coleman Normal [facility] Surgical Pathologyon 019 Surgical Pathology (NOTE) [id number] [facility] [address] [place] [address] SURGICAL PATHOLOGY REPORT Patient Name: CECELIA JOHNSON MR#: [id number] Specimen #[id number] Final Diagnosis SPECIMEN A : BREAST AND [...] The entire specimen weighs 453 grams. Multiple commercial representative sections are submitted in five cassettes [...] also sampled in multiple different areas and commercial representative sections are submitted in five cassettes for microscopic examination. Microscopic Description Specimen A : Five RICHARD glass slides are received. Microscopic examination is performed. Specimen B : Five RICHARD glass slides are received. Microscopic examination is performed. Normal [facility] Comment on above: Performed By: #### P PPES #### [facility] [address] [place] [address] Pediatric Licensed Practical Nurse: Victor Manuel Hunter DO CNOVSPon 11-18-2018 CNOVS Visit (SP) Office (KATHARINE) CECELIA JOHNSON ([id number]) 1995 F Date Time Provider Department 11/18/18 1:00 PM JAZ MOULTON) KATHARINE During your visit today, we recorded the following information about you: Temperature Pulse Respiration Blood pressure 97.9 degrees 82/minute 18/minute 122/78 Weight Height Last Period 82.7 kg 1.6 m 10/15/18 Jaz Moulton MD 11/18/2018 3:08 PM Signed PATIENT NAME: Cecelia Johnson CLINIC NO.: [id number] ATTENDING PHYSICIAN: Jaz Moulton MD DATE OF [...] below. Jaz Moulton M.D. Hematology/Medical Oncology [facility] [phone] CC: Carlos Alberto Coleman MD - (Inactive), In Basket (Inactive) - User (Inactive) [address] [place] [phone] (Ph) Mode Renee MD Referring Provider: SELF [...] Nathan - Fully Assessed Visit Diagnosis:MTHFR mutation ([facility]) [E72.12] Prescriptions as of 11/18/2018 Sig: ACETAMINOPHEN [...] Status:Closed by JAZ MOULTON MD on 11/18/18 [facility] PROGRESSon 11-18-2018 PROGRESS HNO ID: [id number] Author: Jaz Hill) [place] Service: ? Author Type: Physician Type: Progress Notes Filed: 11/18/2018 3:08 PM Note Text: PATIENT NAME: Cecelia Johnson [facility] NO.: [id number] ATTENDING PHYSICIAN: Jaz Moulton MD DATE OF [...] below. Jaz Moulton M.D. Hematology/Medical Oncology [facility] [phone] CC: Carlos Alberto Coleman MD - (Inactive), In Basket (Inactive) - User (Inactive) [address] [facility] [phone] (Ph) Mode Renee MD Normal [facility] Basic Metabolic Profon 11-10 (cont.) Normal [facility] Comment on above: Result Comment: Aver age GFR for 20-29 years old: 116 mL/min/1.73sq m Chronic Kidney Disease: <60 mL/min/1.73sq m Kidney failure: <15 mL/min/1.73sq m eGFR calculated using average adult body mass. Additional eGFR calculator available at: http://www.[employer].com/multiple_crcl_2012.htm Performed By: #### C FARAZ, BMP #### [facility] [address] [place] [address] Pediatric Licensed Practical Nurse: Victor Manuel Hunter DO Anion gap [Moles/Vol] 11 mmol/L Normal 9-17 [facility] Comment on above: Performed By: #### C FARAZ, BMP #### [facility] [place] [address] Pediatric Licensed Practical Nurse: Victor Manuel Hunter DO Calcium [Mass/Vol] 9.7 mg/dL Normal 8.6-10.4 [facility] Comment on above: Performed By: #### C FARAZ, BMP #### [facility] [place] [address] Pediatric Licensed Practical Nurse: Victor Manuel Hunter DO Chloride [Moles/Vol] 102 mmol/L Normal 98-107 [facility] Comment on above: Performed By: #### C FARAZ, BMP #### [facility] [place] [address] Pediatric Licensed Practical Nurse: Victor Manuel Hunter DO CO2 [Moles/Vol] 26 mmol/L Normal 20-31 [facility] Comment on above: Performed By: #### C FARAZ, BMP #### [facility] [place] [address] Pediatric Licensed Practical Nurse: Victor Manuel Hunter DO Creatinine [Mass/Vol] 0.49 mg/dL Low 0.50-0.90 [facility] Comment on above: Performed By: #### C FARAZ, BMP #### [facility] [address] [facility] [place] [address] Pediatric Licensed Practical Nurse: Fanelly, Victor Manuel, DO GFR, Amer >60 Normal >60 [facility] Comment on above: Performed By: #### C DP, BMP #### [facility] [address] [place] [address] Pediatric Licensed Practical Nurse: Victor Manuel Hunter DO GFR,non Amer >60 Normal >60 [facility] Comment on above: Performed By: #### C DP, BMP #### [facility] [address] [place] [address] Pediatric Licensed Practical Nurse: Victor Manuel Hunter DO Glucose [Mass/Vol] 88 mg/dL Normal 70-99 [facility] Comment on above: Performed By: #### C DP, BMP #### [facility] [place] [address] Pediatric Licensed Practical Nurse: Victor Manuel Hunter DO Potassium [Moles/Vol] 4.3 mmol/L Normal 3.7-5.3 [facility] Comment on above: Performed By: #### C DP, BMP #### [facility] [place] [address] Pediatric Licensed Practical Nurse: Victor Manuel Hunter DO Sodium [Moles/Vol] 139 mmol/L Normal 135-144 [facility] Comment on above: Performed By: #### C DP, BMP #### [facility] [address] [place] [address] Pediatric Licensed Practical Nurse: Victor Manuel Hunter DO Urea nitrogen [Mass/Vol] 8 mg/dL Normal 6-20 [facility] Comment on above: Performed By: #### C DP, BMP #### [facility] [address] [place] [address] Pediatric Licensed Practical Nurse: Victor Manuel Hunter DO BUN/CRE Ratio NOT REPORTED Normal 9-20 [facility] Comment on above: Performed By: #### C DP, BMP #### [facility] [place] [address] Pediatric Licensed Practical Nurse: Victor Manuel Hunter DO Staging: NOT REPORTED Normal [facility] Comment on above: Performed By: #### C DP, BMP #### [facility] [address] [place] [address] Pediatric Licensed Practical Nurse: Victor Manuel Hutner DO CBC with Diffon 11-10-2018 Abs. Basophil 0.00 k/uL Normal 0.0-0.2 [facility] Comment on above: Performed By: #### C DP, BMP #### [facility] [address] [place] [address] Pediatric Licensed Practical Nurse: Victor Manuel Hunter DO Abs.Neutrophil (Seg) 3.00 k/uL Normal 1.3-9.1 [facility] Comment on above: Performed By: #### C DP, BMP #### [facility] [address] [place] [address] Pediatric Licensed Practical Nurse: Victor Manuel Hunter DO Basophils/100 WBC (Bld) 0 % Normal 0-2 [facility] Comment on above: Performed By: #### C DP, BMP #### [facility] [address] [place] [address] Pediatric Licensed Practical Nurse: Victor Manuel Hunter DO Eosinophils (Bld) [#/Vol] 0.10 10*3/uL Normal 0.0-0.4 [facility] Comment on above: Performed By: #### C DP, BMP #### [facility] [address] [place] [address] Pediatric Licensed Practical Nurse: Victor Manuel Hunter DO Eosinophils/100 WBC (Bld) 1 % Normal 0-4 [facility] Comment on above: Performed By: #### C DP, BMP #### [facility] [address] [place] [address] Pediatric Licensed Practical Nurse: Victor Manuel Hunter DO Erythrocyte distribution width (RBC) [Ratio] 12.7 % Normal 11.5-14.9 [facility] Comment on above: Performed By: #### C DP, BMP #### [facility] [address] [facility] [place] [address] Pediatric Licensed Practical Nurse: Victor Manuel Hunter DO Hematocrit (Bld) [Volume fraction] 42.3 % Normal 36-46 [facility] Comment on above: Performed By: #### C DP, BMP #### [facility] [place] [address] Pediatric Licensed Practical Nurse: Victor Manuel Hunter DO Hemoglobin (Bld) [Mass/Vol] 14.3 g/dL Normal 12.0-16.0 [facility] Comment on above: Performed By: #### C DP, BMP #### [facility] [place] [address] Pediatric Licensed Practical Nurse: Victor Manuel Hunter DO Lymphocytes (Bld) [#/Vol] 1.70 10*3/uL Normal 1.0-4.8 [facility] Comment on above: Performed By: #### C DP, BMP #### [facility] [address] [place] [address] Pediatric Licensed Practical Nurse: Victor Manuel Hunter DO Lymphocytes/100 WBC (Bld) 32 % Normal 24-44 [facility] Comment on above: Performed By: #### C DP, BMP #### [facility] [address] [place], [place] [address] [address] Pediatric Licensed Practical Nurse: Victor Manuel Hunter DO MCH (RBC) [Entitic mass] 30.0 pg Normal 26-34 [facility] Comment on above: Performed By: #### C DP, BMP #### [facility] [address] [place], [place] [address] [place] [address] Pediatric Licensed Practical Nurse: Victor Manuel Hunter DO MCHC (RBC) [Mass/Vol] 33.7 g/dL Normal 31-37 [facility] Comment on above: Performed By: #### C FARAZ, BMP #### [facility] [address] [place] [address] Pediatric Licensed Practical Nurse: Victor Manuel Hunter DO MCV (RBC) [Entitic vol] 89.0 fL Normal 80-100 [facility] Comment on above: Performed By: #### C FARAZ, BMP #### [facility] [place] [address] Pediatric Licensed Practical Nurse: Victor Manuel Hunter DO Monocytes (Bld) [#/Vol] 0.60 10*3/uL Normal 0.1-1.3 [facility] Comment on above: Performed By: #### C FARAZ, BMP #### [facility] [place] [address] Pediatric Licensed Practical Nurse: Victor Manuel Hunter DO Monocytes/100 WBC (Bld) 11 % High 1-7 [facility] Comment on above: Performed By: #### C FARAZ, BMP #### [facility] [place] [address] Pediatric Licensed Practical Nurse: Victor Manuel Hunter DO Neutrophil (Seg) 56 % Normal 36-66 [facility] Comment on above: Performed By: #### C DP, BMP #### [facility] [place] [address] Pediatric Licensed Practical Nurse: Victo rManuel Hunter DO Platelet mean volume (Bld) [Entitic vol] 9.4 fL Normal 6.0-12.0 [facility] Comment on above: Performed By: #### C FARAZ, BMP #### [facility] [place] [address] Pediatric Licensed Practical Nurse: Victor Manuel Hunter DO Platelets (Bld) [#/Vol] 252 10*3/uL Normal 150-450 [facility] Comment on above: Performed By: #### C FARAZ, BMP #### [facility] [address] [place] [address] Pediatric Licensed Practical Nurse: Victor Manuel Hunter DO RBC (Bld) [#/Vol] 4.75 10*6/uL Normal 4.0-5.2 [facility] Comment on above: Performed By: #### C FARAZ, BMP #### [facility] [place] [address] Pediatric Licensed Practical Nurse: Victor Manuel Hunter DO WBC (Bld) [#/Vol] 5.3 10*3/uL Normal 3.5-11.0 [facility] Comment on above: Performed By: #### C FARAZ, BMP #### [facility] [address] [place] [address] Pediatric Licensed Practical Nurse: Victor Manuel Hunter DO Abs.Imm.Granulocyte NOT REPORTED Normal 0.00-0.30 [facility] Comment on above: Performed By: #### C FARAZ, BMP #### [facility] [place] [address] Pediatric Licensed Practical Nurse: Victor Manuel Hunter DO Auto Diff Performed NOT REPORTED Normal [facility] Comment on above: Performed By: #### C DP, BMP #### [facility] [place] [address] Pediatric Licensed Practical Nurse: Victor Manuel Hunter DO Immature granulocytes (Bld) [#/Vol] NOT REPORTED Normal 0 [facility] Comment on above: Performed By: #### C DP, BMP #### [facility] [address] [place] [address] Pediatric Licensed Practical Nurse: Victor Manuel Hunter DO NRBC Automated NOT REPORTED Normal [facility] Comment on above: Performed By: #### C DP, BMP #### [facility] [address] [facility] [place] [address] Pediatric Licensed Practical Nurse: Victor Manuel Hunter DO Platelets (Bld) [#/Vol] NOT REPORTED Normal [facility] Comment on above: Performed By: #### C DP, BMP #### [facility] [address] [facility] [place] [address] Pediatric Licensed Practical Nurse: Victor Manuel Hunter DO RBC morphology finding Nom (Bld) NOT REPORTED Normal [facility] Comment on above: Performed By: #### C DP, BMP #### [facility] [address] [place] [address] Pediatric Licensed Practical Nurse: Victor Manuel Hunter DO WBC Morphology NOT REPORTED Normal [facility] Comment on above: Performed By: #### C DP, BMP #### [facility] [address] [place] [address] Pediatric Licensed Practical Nurse: Victor Manuel Hunter DO Vital Signs Date Time Vital Sign Value Performing Clinician Facility 04-21-2024 08:49-0500 Body mass index (BMI) [Ratio] 32.06 kg/m2 Herber Nnamdi DO Work Phone: [facility] 04-21-2024 08:49-0500 Body weight 84.73 kg Herber Nnamdi DO Work Phone: [facility] 04-21-2024 08:49-0500 Diastolic blood pressure 72 mm[Hg] Herber Nnamdi DO Work Phone: [facility] 04-21-2024 08:49-0500 Systolic blood pressure 104 mm[Hg] Herber Nnamdi DO Work Phone: [facility] 04-13-2024 15:58-0500 Body mass index (BMI) [Ratio] 31.78 kg/m2 Tori SHIRLEY Work Phone: [facility] 04-13-2024 15:58-0500 Body weight 83.97 kg Tori Dwight PA Work Phone: [facility] 04-13-2024 15:58-0500 Diastolic blood pressure 80 mm[Hg] Tori Dwight PA Work Phone: [facility] 04-13-2024 15:58-0500 Systolic blood pressure 120 mm[Hg] Tori Dwight PA Work Phone: [facility] 04-06-2024 16:29-0500 Body mass index (BMI) [Ratio] 31.65 kg/m2 Tori [place] PA Work Phone: [facility] 04-06-2024 16:29-0500 Body weight 83.64 kg Tori Dwight PA Work Phone: [facility] 04-06-2024 16:29-0500 Diastolic blood pressure 74 mm[Hg] Tori [place] PA Work Phone: [facility] 04-06-2024 16:29-0500 Systolic blood pressure 112 mm[Hg] Tori Dwight PA Work Phone: [facility] 03-09-2024 16:25-0500 Body mass index (BMI) [Ratio] 30.88 kg/m2 Tori Dwight PA Work Phone: [facility] 03-09-2024 16:25-0500 Body weight 81.6 kg Tori Dwight PA Work Phone: [facility] 03-09-2024 16:25-0500 Diastolic blood pressure 70 mm[Hg] Tori Dwight PA Work Phone: [facility] 03-09-2024 16:25-0500 Systolic blood pressure 114 mm[Hg] Tori [place] PA Work Phone: [facility] 02-10-2024 14:44-0400 Body mass index (BMI) [Ratio] 29.39 kg/m2 Herber Nnamdi DO Work Phone: [facility] 02-10-2024 14:44-0400 Body weight 77.68 kg Herber Nnamdi DO Work Phone: [facility] 02-10-2024 14:44-0400 Diastolic blood pressure 68 mm[Hg] Herber Nnamdi DO Work Phone: [facility] 02-10-2024 14:44-0400 Systolic blood pressure 116 mm[Hg] Herber Nnamdi DO Work Phone: [facility] 01-11-2024 16:03-0400 Body mass index (BMI) [Ratio] 28.06 kg/m2 Herber Nnamdi DO Work Phone: [facility] 01-11-2024 16:03-0400 Body weight 74.16 kg Herber Nnamdi DO Work Phone: [facility] 01-11-2024 16:03-0400 Diastolic blood pressure 72 mm[Hg] Herber Nnamdi DO Work Phone: [facility] 01-11-2024 16:03-0400 Systolic blood pressure 118 mm[Hg] Herber Nnamdi DO Work Phone: [facility] 01-29-2022 02:06-0400 Body weight 67.[address] ZEN BREWER . [facility] Comment on above: Performed By: #### GTT3P #### [facility] [address] [place] [address] Dr. Garland Kohli Encounters Encounter Date Encounter Type Care Provider Facility Start: 04-21-2024 End: 04-21-2024 Bamboo flowsheet Herber Nnamdi DO Work Phone: [facility] Start: 04-21-2024 End: 04-21-2024 Bamboo flowsheet Herber Nnamdi DO Work Phone: [facility] Start: 04-21-2024 End: 04-21-2024 ambulatory HERBER NNAMDI Not Available Start: 04-21-2024 End: 04-21-2024 flow sheet Herber Nnamdi DO Work Phone: [facility] Comment on above: 30 weeks gestation o f ; Third trimester Start: 04-13-2024 End: 04-13-2024 flow sheet Tori SHIRLEY Work Phone: [facility] Comment on above: 28 weeks gestation o f ; Second trimester ; Gestational diabetes mellitus (GDM), antepartum, gestational diabetes method of control unspecified; Anxiety, generalized (CMS/HCC); Nausea; Hypothyroidism, unspecified type (CMS/HCC) Start: 04-13-2024 End: 04-13-2024 ambulatory TORI PEPE Not Available Start: 04-13-2024 End: 04-13-2024 Bamboo flowsheet Tori Pepe PA Work Phone: [facility] Start: 04-13-2024 End: 04-13-2024 Bamboo flowsheet Tori Pepe PA Work Phone: [facility] Start: 04-06-2024 End: 04-06-2024 ambulatory TORI PEPE Not Available Start: 04-06-2024 End: 04-06-2024 flow sheet Tori SHIRLEY Work Phone: [facility] Comment on above: Second trimester pre gnancy; 27 weeks gestation of Start: 04-06-2024 End: 04-06-2024 Bamboo flowsheet Tori SHIRLEY Work Phone: [facility] Start: 04-06-2024 End: 04-06-2024 Bamboo flowsheet Tori SHIRLEY Work Phone: [facility] Start: 03-19-2024 End: 03-19-2024 Clinisync Result Encounter Tori SHIRLEY Work Phone: [facility] External Department Unsolicited Start: 03-19-2024 End: 03-19-2024 Clinisync Result Encounter Tori SHIRELY Work Phone: [facility] External Department Unsolicited Start: 03-09-2024 End: 03-09-2024 ambulatory TORI PEPE Not Available Start: 03-09-2024 End: 03-09-2024 flow sheet Tori SHIRLEY Work Phone: [facility] Comment on above: Encounter for follow -up ultrasound of anatomy; Second trimester ; 23 weeks gestation of ; Hypothyroidism, unspecified type (CMS/HCC); Diabetes mellitus screening; Anxiety, generalized (CMS/HCC) Start: 03-09-2024 End: 03-09-2024 Bamboo flowsheet Tori SHIRLEY Work Phone: [facility] Start: 03-09-2024 End: 03-09-2024 Bamboo flowsheet Tori SHIRLEY Work Phone: [facility] Start: 02-10-2024 End: 02-10-2024 ambulatory HERBER NNAMDI Not Available Start: 02-10-2024 End: 02-10-2024 Bamboo flowsheet Herber Nnamdi DO Work Phone: [facility] Start: 02-10-2024 End: 02-17-2024 Bamboo flowsheet Herber Nnamdi DO Work Phone: [facility] Start: 02-10-2024 End: 02-17-2024 Clinisync Result Encounter Generic External Data Provider [facility] External Department Unsolicited Start: 02-10-2024 End: 02-10-2024 Patient encounter procedure Herber Nnamdi DO Work Phone: [facility] Start: 02-10-2024 End: 02-10-2024 Periodic preventive med est patient 18-39 yrs Herber Nnamdi DO Work Phone: [facility] Comment on above: Well woman exam with routine gynecological exam; Screening, , for anatomic survey; Second trimester ; 19 weeks gestation of ; Screen for STD (sexually transmitted disease); Vaginal discharge; headache in second trimester Start: 01-22-2024 End: 01-22-2024 Clinisync Result Encounter Generic External Data Provider [facility] External Department Unsolicited Start: 01-22-2024 End: 01-22-2024 Clinisync Result Encounter Generic External Data Provider [facility] External Department Unsolicited Start: 01-11-2024 End: 01-11-2024 flow sheet Herber Nnamdi DO Work Phone: [facility] Comment on above: Second trimester pre gnancy; Other specified hypothyroidism (CMS/HCC); Moderate asthma, unspecified whether complicated, unspecified whether persistent (CMS/HCC) Start: 01-11-2024 End: 01-11-2024 ambulatory HERBER NNAMDI Not Available Start: 01-11-2024 End: 01-11-2024 Bamboo flowsheet Herber Nnamdi DO Work Phone: [facility] Start: 01-11-2024 End: 01-11-2024 Bamboo flowsheet Herber Nnamdi DO Work Phone: [facility] Start: 12-11-2023 End: 12-11-2023 ambulatory SOFIE LAUSE Not Available Start: 10-16-2023 End: 10-16-2023 ambulatory TORI WARCHOL Not Available Start: 07-17-2023 End: 07-17-2023 ambulatory TORI WARCHOL Not Available Start: 07-13-2023 End: 07-13-2023 Patient encounter procedure MD Carlos Alberto Coleman Work Phone: [facility] Start: 07-13-2023 End: 07-13-2023 ambulatory MD Carlos Alberto Coleman Work Phone: [facility] Work Phone: Start: 07-13-2023 End: 07-13-2023 ambulatory SOFIE R LAUSE Not Available Start: 06-02-2023 Refill Tori Pichardo [employer] Work Phone: [facility] Comment on above: Attention deficit hy peractivity disorder (ADHD), combined type (CMS/HCC) Start: 07-04-2022 End: 07-14-2022 ambulatory ÁNGEL SINHA [...] without abnormal findings DR ZEN BREWER . [facility] Start: 01-17-2022 End: 01-17-[address] ZEN BREWER . Facility:[facility] Start: 01-17-2022 End: 01-17-2022 Encounter for gynecological examination (general) (routine) without abnormal findings DR ZEN BREWER . Facility:[facility] Start: 01-04-2022 End: 01-05-2022 ambulatory ÁNGEL SINHA Facility:[facility] Start: 12-14-2021 End: 12-15-[address] ZEN BREWER . Facility:[facility] Start: 11-26-2021 End: 11-27-2021 ambulatory ÁNGEL SINHA Facility:[facility] Start: 11-24-2018 End: 11-24-2018 Patient encounter procedure [facility] Start: 11-10-2018 End: 11-15-2018 Patient encounter procedure [facility] Procedures Date Procedure Procedure Detail Performing Clinician Start: 04-21-2024 Urnls dip stick/tabl et rgnt non-auto w/o micrscp Herber Nnamdi DO Work Phone: Start: 04-13-2024 Urnls dip stick/tabl et rgnt non-auto w/o micrscp Tori Pepe PA Work Phone: Start: 04-06-2024 Urnls dip stick/tabl et rgnt non-auto w/o micrscp Herber Nnamdi DO Work Phone: Start: 03-19-2024 ALL CBC WITH AUTO DIFF Generic External Data Provider Start: 02-10-2024 Urnls dip stick/tabl et rgnt non-auto w/[facility]scp [facility] Work [facility]: Start: 02-10-2024 IGP,APTIMA HPV,AGE GDLN [facility] Work Phone: Start: 02-10-2024 Microscopic observat ion [Identifier] in Cervix by Cyto stain Tori SHIRLEY Work Phone: Start: 02-10-2024 Cytp cerv/vag auto t hin layer prep mnl screen Tori SHIRLEY Work Phone: Start: 01-22-2024 ALL THYROID STIM HORMONE [facility] DO Work Phone: Start: 01-11-2024 Urnls dip stick/tabl et rgnt non-auto w/o micrscp [facility] DO Work Phone: Start: 07-13-2023 Respiratory Panel [...] Urine test visual color cmprsn meths MODE ERNEE Start: 11-24-2018 INITIATE OXYGEN THER APY PROTOCOL [...] Screening for malign ant neoplasm of cervix [facility] Start: 05-09-2024 End: 05-09-2024 Patient encounter procedure 05/09/2024 3:50 PM EST Routine [facility] [address] [place] [id number] Tori Pepe PA [address] [place] [address] [facility] Start: 04-21-2024 End: 04-21-2024 Patient encounter procedure 04/21/2024 8:30 AM EST Routine [facility] [address] [place] [id number] Herber Coto DO [address] [place] [address] [facility] Start: 04-13-2024 End: 04-13-2024 Patient encounter procedure [facility] Comment on above: Arrived Start: 04-13-2024 End: 04-13-2025 US biophysical profile w non stress test US biophysical profile w non stress test Imaging Routine 28 weeks gestation of Second trimester Gestational diabetes mellitus (GDM), antepartum, gestational diabetes method of control unspecified Expected: 04/13/2024 (Approximate), Expires: 04/13/2025 [facility] Work Phone: Comment on above: Expected: 04/13/2024 (Approximate), Expires: 04/13/2025 Start: 04-06-2024 End: 04-06-2024 Patient encounter procedure 04/06/2024 3:20 PM EST Routine [facility] [address] [facility] [facility] [place] [id number] Tori Pepe PA [address] [place] [address] [facility] Start: 04-03-2024 End: 03-04-2025 US for US OB INCOMPLETE ANATOMY Imaging Routine Encounter for follow-up ultrasound of anatomy Expected: 04/03/2024 (Approximate), Expires: 03/04/2025 [facility] Work Phone: Comment on above: Expected: 04/03/2024 (Approximate), Expires: 03/04/2025 Start: 03-09-2024 End: 03-09-2024 Patient encounter procedure 03/09/2024 3:50 PM EST Routine [facility] [address] [facility] [address] [address] [place] [id number] Tori Pepe, PA [address] [place] [address] [place] [address] [facility] Start: 03-09-2024 End: 03-09-2025 CBC panel - Blood by Automated count CBC Lab Routine Diabetes mellitus screening Expected: 03/09/2024 (Approximate), Expires: 03/09/2025 [facility] Comment on above: Expected: 03/09/2024 (Approximate), Expires: 03/09/2025 Start: 03-09-2024 End: 03-09-2025 Measurement of glucose 1 hour after glucose challenge for glucose tolerance test Glucose tolerance, 1 hour Lab Routine Diabetes mellitus screening Expected: 03/09/2024 (Approximate), Expires: 03/09/2025 [facility] Comment on above: Expected: 03/09/2024 (Approximate), Expires: 03/09/2025 Start: 03-09-2024 End: 03-09-2025 US for US OB SCAN FOR GROWTH Imaging Routine Hypothyroidism, unspecified type (CMS/HCC) Expected: 03/09/2024 (Approximate), Expires: 03/09/2025 [facility] Comment on above: Expected: 03/09/2024 (Approximate), Expires: 03/09/2025 Start: 02-10-2024 End: 02-09-2025 Alpha fetoprotein, maternal Alpha fetoprotein, maternal Lab Routine Second trimester 19 weeks gestation of Expected: 02/10/2024 (Approximate), Expires: 02/09/2025 [facility] Comment on above: Expected: 02/10/2024 (Approximate), Expires: 02/09/2025 Start: 02-10-2024 End: 02-09-2025 US for US OB ANATOMY SINGLE W US OB CERVICAL LENGTH Imaging Routine Screening, , for anatomic survey Expected: 02/10/2024 (Approximate), Expires: 02/09/2025 [facility] Comment on above: Expected: 02/10/2024 (Approximate), Expires: 02/09/2025 Start: 02-10-2024 End: 02-10-2024 Patient encounter procedure 02/10/2024 1:50 PM EDT Routine [facility] [address] [facility] [place] [address] Herber Coto, DO [address] [place], [place] [id number] [facility] Start: 01-11-2024 End: 01-11-2024 Patient encounter procedure 01/11/2024 3:50 PM EDT Routine [facility] [address] [place] [address] Herber Coto, DO [address] [place] [address] Arrived [facility] Comment on above: Arrived Start: 12-27-2023 Influenza vaccination Influenza Vacc ine (#1) [facility] Start: 10-25-2023 Influenza vaccination Influenza Vacc ine (#1) [facility] Comment on above: Postponed from 12/26 (Patient Refused) Start: 10-25-2023 Screening for malign ant neoplasm of cervix [facility] Start: 07-17-2023 End: 07-17-2023 Patient encounter procedure 07/17/2023 8:00 AM EDT Office Visit [facility] [address] [place] [address] Tori Pichardo, [employer] [address] [place] [address] [facility] Start: 2014 Screening for malign ant neoplasm of cervix Pap Smear [facility] CHLAMYDIA TRACHOMATI S (GENITO/STI) CHLAMYDIA TRACHOMATIS (GENITO/STI) Lab Routine Screen for STD (sexually transmitted disease) Vaginal discharge Ordered: 02/10/2024 [facility] Comment on above: Ordered: 02/10/2024 Cytology Cervical or vaginal smear or scraping study Pap Smear Pathology and Cytology Routine Well woman exam with routine gynecological exam Ordered: 02/10/2024 [facility] Comment on above: Ordered: 02/10/2024 Human papilloma viru s DNA [Presence] in Unspecified specimen by Probe with amplification HPV DNA probe, amplified Microbiology Routine Well woman exam with routine gynecological exam Ordered: 02/10/2024 [facility] Comment on above: Ordered: 02/10/2024 Neisseria gonorrhoea e DNA [Presence] in Unspecified specimen by JUAN with probe detection Neisseria gonorrhea DNA probe, direct Lab Routine Screen for STD (sexually transmitted disease) Vaginal discharge Ordered: 02/10/2024 [facility] Comment on above: Ordered: 02/10/2024 SURESWAB(R) ADVANCED VAGINITIS PLUS, TMA SURESWAB(R) ADVANCED VAGINITIS PLUS, TMA Pathology and Cytology Routine Screen for STD (sexually transmitted disease) Vaginal discharge Ordered: 02/10/2024 [facility] Work Phone: Comment on above: Ordered: 02/10/2024 Thyrotropin [Units/volume] in Serum or Plasma TSH Lab Routine Other specified hypothyroidism (CMS/HCC) Ordered: 01/11/2024 [facility] Work Phone: Comment on above: Ordered: 01/11/2024 Thyrotropin [Units/volume] in Serum or Plasma TSH Lab Routine Hypothyroidism, unspecified type ([facility]/HCC) Ordered: 04/13/2024 [facility] Comment on above: Ordered: 04/13/2024 Immunizations Immunization Date Immunization Notes Care Provider Byron carlson 05-05-2015 tetanus toxoid, redu catherine diphtheria toxoid, and acellular pertussis vaccine, adsorbed Tori Warchol [employer] Work Phone: [facility] 02-14-2009 influenza, seasonal, injectable Tori Warchol [employer] Work Phone: [facility] 02-14-2009 influenza virus vacc ine, unspecified formulation Tori Warchol [employer] Work Phone: [facility] 12-12-2005 hepatitis A vaccine, unspecified formulation Tori Warchol [employer] Work Phone: [facility] 12-12-2005 tetanus toxoid, redu catherine diphtheria toxoid, and acellular pertussis vaccine, adsorbed Tori Warchol [employer] Work Phone: [facility] 11-19-1998 diphtheria, tetanus toxoids and acellular pertussis vaccine, unspecified formulation Tori Warchol [employer] Work Phone: [facility] 11-19-1998 measles, mumps and rubella virus vaccine Tori Warchol [employer] Work Phone: [facility] 11-19-1998 trivalent poliovirus vaccine, live, oral Tori Warchol [employer] Work Phone: [facility] 09-14-1995 diphtheria, tetanus toxoids and acellular pertussis vaccine, unspecified formulation Tori Warchol [employer] Work Phone: [facility] 09-14-1995 haemophilus influenz ae type b vaccine, conjugate unspecified formulation Tori Warchol [employer] Work Phone: [facility] 11-20-1994 DTP-Haemophilus influenzae type b conjugate vaccine Tori Warchol [employer] Work Phone: [facility] 11-20-1994 hepatitis B vaccine, pediatric or pediatric/adolescent dosage Tori Warchol [employer] Work Phone: [facility] 11-20-1994 measles, mumps and rubella virus vaccine Tori Warchol [employer] Work Phone: [facility] 11-20-1994 trivalent poliovirus vaccine, live, oral Tori Warchol [employer] Work Phone: [facility] 09-18-1994 DTP-Haemophilus influenzae type b conjugate vaccine Tori Warchol [employer] Work Phone: [facility] 09-18-1994 hepatitis B vaccine, pediatric or pediatric/adolescent dosage Tori Warchol [employer] Work Phone: [facility] 09-18-1994 trivalent poliovirus vaccine, live, oral Tori Warchol [employer] Work Phone: [facility] 1993 diphtheria, tetanus toxoids and pertussis vaccine Tori Warchol [employer] Work Phone: [facility] 1993 haemophilus influenz ae type b vaccine, conjugate unspecified formulation Tori Warchol [employer] Work Phone: [facility] 1993 hepatitis B vaccine, pediatric or pediatric/adolescent dosage Tori Warchol [employer] Work Phone: [facility] 1993 trivalent poliovirus vaccine, live, oral Tori Warchol [employer] Work Phone: [facility] Payers Date Payer Category Payer Self-pay [id number] 2023 Medicaid [id number] 2022 [facility] er [id number] 2022 Unknown BCBS BCBS [id number] [id number] 2022-Present [phone] [address] [place] [address] [id number] [id number] 2017 Private Health Insurance [id number] 1993 Unknown [id number] 2.16.840.1.659682.3.579. 2.176 1993 Unknown [id number] 2.16.840.1.577105.3.579. 2.176 1993 Unknown [id number] 2.16.840.1.724021.3.579. 2.593 1993 Unknown [id number] 2.16.840.1.819686.3.579. 2.593 1993 Unknown [id number] 2.16.840.1.116575.3.579. 2.593 1993 Unknown [id number] 2.16.840.1.916551.3.579. 2.593 1993 Unknown [id number] 2.16.840.1.057637.3.579. 2.593 1993 Unknown [id number] 2.16.840.1.115729.3.579. 2.593 1993 Unknown [id number] 2.16.840.1.610071.3.579. 2.593 1993 Unknown [id number] 2.16.840.1.269018.3.579. 2.593 1993 Unknown [id number] 2.16.840.1.392920.3.579. 2.593 1993 Unknown [id number] 2.16.840.1.097062.3.579. 2.593 1993 Unknown [id number] 2.16.840.1.979120.3.579. 2.593 1993 Unknown [id number] 2.16.840.1.733966.3.579. 2.593 1993 Unknown [id number] 2.16.840.1.484355.3.579. 2.59 1993 Unknown [id number] 2.16.840.1.017352.3.579. 2.59 1993 Unknown [id number] 2.16.840.1.713108.3.579. 2.1259 1993 Unknown [id number] 2.16.840.1.281280.3.579. 2.125 1993 Unknown [id number] 2.16.840.1.302870.3.579. 2.1258 1993 Unknown [id number] 2.16.840.1.456105.3.579. 2.1258 1993 Unknown [id number] 2.16.840.1.668471.3.579. 2.125 1993 Unknown [id number] 2.16.840.1.023012.3.579. 2.1258 1993 Unknown [id number] 2.16.840.1.591685.3.579. 2.1258 1993 Unknown [id number] 2.16.840.1.405297.3.579. 2.1258 1993 Unknown [id number] 2.16.840.1.185754.3.579. 2.125 1993 Unknown [id number] 2.16.840.1.474193.3.579. 2.1259 1959 Self-pay [id number] 1959 Unknown [id number] 1959 Unknown [id number] 1959 Unknown [id number] Unknown [id number] 2.16.840.1.865877.3.579. 2.593 Unknown HCAP/HFA/FAP Active [id number] Unknown [id number] 2.16.840.1.717201.3.579. 2.531 Social History Date Type Detail Facility Start: 08-27-2016 End: 09-25-2022 Tobacco smoking status NHIS Never smoked tobacco [facility] Start: 09-25-2022 Tobacco use and exposure Smoke less tobacco non-user [facility] Start: 04-16-2023 End: 04-13-2024 Alcohol intake Current drinker of alcohol (finding) [...] Gender identity Identifies as female gender (finding) [facility] Start: 10-08-2023 [facility] Equipment Procedure Code Equipment Code Equipment Origin al Text Equipment Identifier Dates 1 strip by In Vi tro route Daily Use in the morning prior to breakfast, 1 hour after each meal for a total of 4times daily. [id number] Start: 03-21-2024 End: 04-20-2024 1 each by In Vit ro route Daily Use to check FSBS four times daily [id number] Start: 03-21-2024 End: 04-20-2024 Clinical Notes 06-02-2023 to 04-21-2024 Lillie Azul LPN - 04/21/2024 8:30 AM FENR Chin - 04/13/2024 4:00 PM FERN Chin - 04/06/2024 3:20 PM FERN Chin - 03/09/2024 3:50 PM Amarilys Azul LPN - 02/10/2024 1:50 PM EDT Note Date & Type Note Facility 04-21-2024 History of Presen t illness Narrative Reason for Appointment: Patient ID: Gayla Johnson is a 28 y.o. female who presents for No chief complaint on file. Patient presents today for Return OB appointment. MEDICATIONS Current Outpatient Medications Medication Instructions albuterol HFA 90 mcg/act inhaler 2 puffs, Inhalation, Every 4 hours PRN Alcohol Swabs (Alcohol Prep Pad) 70 % pads 1 Pad, Topical, Daily, Use four times daily to check FSBS. Blood Glucose Monitoring Suppl (D-LBE Security Master Glucometer) w/Device kit 1 kit, Does not apply, Daily, Use four times daily to check FSBS. In the morning prior to breakfast & 1 hour after each meal for a total of 4times daily. citalopram (CELEXA) 10 mg, Oral, Daily famotidine (PEPCID) 20 mg, Oral, Every 12 hours fexofenadine (TASHA) 180 mg, Daily folic acid (FOLVITE) 1 mg, Oral, Daily lactase 9,000 Units lansoprazole (PREVACID) 30 mg, Oral, Every 24 hours levalbuterol (Xopenex) 1.25 MG/3ML nebulizer solution 1 ampule, Nebulization, Every 6 hours PRN levalbuterol (Xopenex) 45 MCG/ACT inhaler 1 puff, Inhalation, Every 4 hours PRN levothyroxine (SYNTHROID, LEVOXYL) 88 mcg, Oral, Every 24 hours loperamide (IMODIUM) 2 mg Magnesium 400 mg, Daily montelukast (SINGULAIR) 10 mg, Oral, Nightly ondansetron (ZOFRAN) 4 mg, Oral, Every 6 hours PRN, Take 1 tablet by mouth every 6 hours as needed for nausea. ALLERGIES Allergies Allergen Reactions Ciprofloxacin Shortness of [...] esophagitis 09/01/2022 Moderate persistent asthma without complication ([facility]) 09/01/2022 Hypothyroidism, unspecified ([facility]) 03/02/2020 Moderate asthma ([facility]) 01/11/2024 30 weeks gestation of 04/21/2024 Third trimester 04/21/2024 Resolved Ambulatory Problems Diagnosis Date Noted Acquired hypothyroidism ([facility]) 09/01/2022 Allergic rhinitis 09/01/2022 Amenorrhea 09/01/2022 Asthma without status asthmaticus ([facility]) 09/01/2022 Attention deficit hyperactivity disorder ([facility]) 09/01/2022 Asthma affecting , antepartum ([facility]) 09/01/2022 Binge eating disorder 09/01/2022 Difficulty concentrating 09/01/2022 Irregular menstrual cycle 09/01/2022 Left sided sciatica 09/01/2022 Insomnia 09/01/2022 Migraines ([facility]) 09/01/2022 Metallic taste 09/01/2022 Mild persistent asthma without complication ([facility]) 09/01/2022 MTHFR mutation 09/01/2022 Nondependent cannabis abuse 09/01/2022 Other chronic pain 09/01/2022 Seasonal allergies 09/01/2022 Skin sensation disturbance 09/01/2022 Transitory mood disturbance 09/01/2022 Verruca plantaris 09/01/2022 Past Medical History: Diagnosis Date Acid reflux ADHD (attention deficit hyperactivity disorder) ([facility]) Asthma ([facility]) GERD (gastroesophageal reflux disease) Hypothyroid ([facility]) Lactose intolerance Marijuana use Migraine ([facility]) Mild persistent asthma, uncomplicated ([facility]) Supervision of normal Thyroid disease ([facility]) HISTORY PAST MEDICAL HISTORY SOCIAL HISTORY Past Medical History: Diagnosis Date Acid reflux ADHD (attention deficit hyperactivity disorder) ([facility]) Asthma ([facility]) Asthma affecting , antepartum ([facility]) GERD (gastroesophageal reflux disease) Hypothyroid ([facility]) Lactose intolerance Marijuana use Migraine ([facility]) Mild persistent asthma, uncomplicated ([facility]) MTHFR mutation Seasonal allergies Supervision of normal Thyroid disease ([facility]) Social History Tobacco Use Smoking status: Never [...] Exam Constitutional: Appearance: Normal appearance. She is well-developed. Cardiovascular: Rate and Rhythm: Normal rate and regular rhythm. Pulmonary: Effort: Pulmonary effort is normal. Breath sounds: Normal breath sounds. Abdominal: General: Bowel sounds are normal. There is no distension. Palpations: Abdomen is soft. Tenderness: There is no abdominal tenderness. There is no guarding or rebound. Musculoskeletal: General: No swelling. Normal range of motion. Right lower leg: No edema. Left lower leg: No edema. Neurological: Mental Status: She is alert and oriented to person, place, and time. Skin: General: Skin is warm and dry. Psychiatric: Mood and Affect: Mood normal. Behavior: Behavior normal. Vitals and nursing note reviewed. Exam conducted with a crm manager present. Vitals: Estimated body mass index is 32.06 kg/m as calculated from the following: Height as of 10/16/23: 5' 4 . Weight as of this encounter: 186 lb 12.8 oz. BP: 104/72 Patient's last menstrual period was 09/24/2023 (exact date). ASSESSMENT & PLAN ICD-10-CM 1. 30 weeks gestation of Z3A.30 POCT urinalysis dipstick manually resulted 2. Third trimester Z34.93 POCT urinalysis dipstick manually resulted Return OB: Patient presents today for a routine obstetrics appointment. Patient is currently 30w0d . Patient states she is doing well but has complaints of being tired due to current . Patient has verbalizes frequent movement. labor precautions was discussed/given and patient was instructed to perform kick counts three times a day. Reviewed glucose log with pt in detail. Pt advised to eat a protein snack prior to bed. Orders Placed This Encounter Procedures POCT urinalysis dipstick manually resulted Follow Up: Patient is to return to office in 2 week for routine OB appointment. Documented by Lillie Azul LPN on behalf of: Herber Coto DO documented in this encounter [facility] 04-13-2024 History of Presen t illness Narrative Reason for Appointment: Patient ID: Gayla Johnson is a 28 y.o. female who presents for Routine Visit Patient presents today for Return OB appointment. MEDICATIONS Current Outpatient Medications Medication Instructions albuterol HFA 90 mcg/act inhaler 2 puffs, Inhalation, Every 4 hours PRN Alcohol Swabs (Alcohol Prep Pad) 70 % pads 1 Pad, Topical, Daily, Use four times daily to check FSBS. Blood Glucose Monitoring Suppl (D-Care Glucometer) w/Device kit 1 kit, Does not apply, Daily, Use four times daily to check FSBS. In the morning prior to breakfast & 1 hour after each meal for a total of 4times daily. citalopram (CELEXA) 10 mg, Oral, Daily famotidine (PEPCID) 20 mg, Oral, Every 12 hours fexofenadine (TASHA) 180 mg, Daily folic acid (FOLVITE) 1 mg, Oral, Daily Glucose Blood (Blood Glucose Test) strip 1 strip, In Vitro, Daily, Use in the morning prior to breakfast, 1 hour after each meal for a total of 4times daily. lactase 9,000 Units Lancets Ultra Thin misc 1 each, In Vitro, Daily, Use to check FSBS four times daily lansoprazole (PREVACID) 30 mg, Oral, Every 24 hours levalbuterol (Xopenex) 1.25 MG/3ML nebulizer solution 1 ampule, Nebulization, Every 6 hours PRN levalbuterol (Xopenex) 45 MCG/ACT inhaler 1 puff, Inhalation, Every 4 hours PRN levothyroxine (SYNTHROID, LEVOXYL) 88 mcg, Oral, Every 24 hours loperamide (IMODIUM) 2 mg Magnesium 400 mg, Daily montelukast (SINGULAIR) 10 mg, Oral, Nightly ondansetron (ZOFRAN) 4 mg, Oral, Every 6 hours PRN, Take 1 tablet by mouth every 6 hours as needed for nausea. ALLERGIES Allergies Allergen Reactions Ciprofloxacin Shortness of [...] esophagitis 09/01/2022 Moderate persistent asthma without complication ([facility]) 09/01/2022 Hypothyroidism, unspecified ([facility]) 03/02/2020 Moderate asthma ([facility]) 01/11/2024 Resolved Ambulatory Problems Diagnosis Date Noted Acquired hypothyroidism ([facility]) 09/01/2022 Allergic rhinitis 09/01/2022 Amenorrhea 09/01/2022 Asthma without status asthmaticus ([facility]) 09/01/2022 Attention deficit hyperactivity disorder ([facility]) 09/01/2022 Asthma affecting , antepartum ([facility]) 09/01/2022 Binge eating disorder 09/01/2022 Difficulty concentrating 09/01/2022 Irregular menstrual cycle 09/01/2022 Left sided sciatica 09/01/2022 Insomnia 09/01/2022 Migraines ([facility]) 09/01/2022 Metallic taste 09/01/2022 Mild persistent asthma without complication ([facility]) 09/01/2022 MTHFR mutation 09/01/2022 Nondependent cannabis abuse 09/01/2022 Other chronic pain 09/01/2022 Seasonal allergies 09/01/2022 Skin sensation disturbance 09/01/2022 Transitory mood disturbance 09/01/2022 Verruca plantaris 09/01/2022 Past Medical History: Diagnosis Date Acid reflux ADHD (attention deficit hyperactivity disorder) ([facility]) Asthma ([facility]) GERD (gastroesophageal reflux disease) Hypothyroid ([facility]) Lactose intolerance Marijuana use Migraine ([facility]) Mild persistent asthma, uncomplicated ([facility]) Supervision of normal Thyroid disease ([facility]) HISTORY PAST MEDICAL HISTORY SOCIAL HISTORY Past Medical History: Diagnosis Date Acid reflux ADHD (attention deficit hyperactivity disorder) ([facility]) Asthma ([facility]) Asthma affecting , antepartum ([facility]) GERD (gastroesophageal reflux disease) Hypothyroid ([facility]) Lactose intolerance Marijuana use Migraine ([facility]) Mild persistent asthma, uncomplicated ([facility]) MTHFR mutation Seasonal allergies Supervision of normal Thyroid disease ([facility]) Social History Tobacco Use Smoking status: Never [...] reviewed. Vitals: Estimated body mass index is 31.78 kg/m as calculated from the following: Height as of 10/16/23: 5' 4 . Weight as of this encounter: 185 lb 1.9 oz. BP: 120/80 Patient's last menstrual period was 09/24/2023 (exact date). ASSESSMENT & PLAN ICD-10-CM 1. 28 weeks gestation of Z3A.28 POCT urinalysis dipstick manually resulted US biophysical profile w non stress test CANCELED: US biophysical profile w non stress test 2. Second trimester Z34.92 POCT urinalysis dipstick manually resulted US biophysical profile w non stress test CANCELED: US biophysical profile w non stress test 3. Gestational diabetes mellitus (GDM), antepartum, gestational diabetes method of control unspecified O24.419 US biophysical profile w non stress test 4. Anxiety, generalized (CMS/HCC) F41.1 5. Nausea R11.0 ondansetron (Zofran) 4 MG tablet 6. Hypothyroidism, unspecified type (CMS/HCC) E03.9 TSH Return OB: Patient presents today for a routine obstetrics appointment. Patient is currently 28w6d . Patient states she is doing well but has complaints of being tired due to current . Patient has verbalizes frequent movement. labor precautions was discussed/given and patient was instructed to perform kick counts three times a day. Patient sugars are looking good, pt described a couple blood sugar drops after high carb meal. Pt encouarged to stay hydrated Orders Placed This Encounter Procedures US biophysical profile w non stress test TSH POCT urinalysis dipstick manually resulted Follow Up: Patient is to return to office in 1 week for routine OB appointment. Documented by FERN Luis on behalf of: FERN Luis documented in this encounter [facility] 04-06-2024 History of Presen t illness Narrative Reason for Appointment: Patient ID: Gayla Johnson is a 28 y.o. female who presents for Routine Visit Patient presents today for Return OB appointment. MEDICATIONS Current Outpatient Medications Medication Instructions albuterol HFA 90 mcg/act inhaler 2 puffs, Inhalation, Every 4 hours PRN Alcohol Swabs (Alcohol Prep Pad) 70 % pads 1 Pad, Topical, Daily, Use four times daily to check FSBS. amphetamine-dextroamphetamine (Adderall) 20 MG tablet 20 mg, Oral, Daily amphetamine-dextroamphetamine XR (Adderall XR) 20 MG 24 hr capsule 20 mg, Oral, Every morning, Do not crush or chew. azithromycin (Zithromax Z-Darvin) 250 MG tablet As directed Blood Glucose Monitoring Suppl (D-Care Glucometer) w/Device kit 1 kit, Does not apply, Daily, Use four times daily to check FSBS. In the morning prior to breakfast & 1 hour after each meal for a total of 4times daily. Calcium Citrate-Vitamin D (Calcium Citrate + D3) 250-200 MG-UNIT tablet Calcium Citrate + D3 citalopram (CELEXA) 10 mg, Oral, Daily famotidine (PEPCID) 20 mg, Oral, Every 12 hours fexofenadine (TASHA) 180 mg, Oral, Daily folic acid (FOLVITE) 1 mg, Oral, Daily Glucose Blood (Blood Glucose Test) strip 1 strip, In Vitro, Daily, Use in the morning prior to breakfast, 1 hour after each meal for a total of 4times daily. ibuprofen 600 mg, Oral lactase 9,000 Units, Oral Lancets Ultra Thin misc 1 each, In Vitro, Daily, Use to check FSBS four times daily lansoprazole (PREVACID) 30 mg, Oral, Every 24 [...] esophagitis 09/01/2022 Moderate persistent asthma without complication ([facility] 09/01/2022 Hypothyroidism, unspecified ([facility]) 03/02/2020 Moderate asthma ([facility]) 01/11/2024 Resolved Ambulatory Problems Diagnosis Date Noted Acquired hypothyroidism ([facility]) 09/01/2022 Allergic rhinitis 09/01/2022 Amenorrhea 09/01/2022 Asthma without status asthmaticus ([facility]) 09/01/2022 Attention deficit hyperactivity disorder ([facility]) 09/01/2022 Asthma affecting , antepartum ([facility]) 09/01/2022 Binge eating disorder 09/01/2022 Difficulty concentrating 09/01/2022 Irregular menstrual cycle 09/01/2022 Left sided sciatica 09/01/2022 Insomnia 09/01/2022 Migraines ([facility]) 09/01/2022 Metallic taste 09/01/2022 Mild persistent asthma without complication ([facility]) 09/01/2022 MTHFR mutation 09/01/2022 Nondependent cannabis abuse 09/01/2022 Other chronic pain 09/01/2022 Seasonal allergies 09/01/2022 Skin sensation disturbance 09/01/2022 Transitory mood disturbance 09/01/2022 Verruca plantaris 09/01/2022 Past Medical History: Diagnosis Date Acid reflux ADHD (attention deficit hyperactivity disorder) ([facility]) Asthma ([facility]) GERD (gastroesophageal reflux disease) Hypothyroid ([facility]) Lactose intolerance Marijuana use Migraine ([facility]) Mild persistent asthma, uncomplicated ([facility]) Supervision of normal Thyroid disease ([facility]) HISTORY PAST MEDICAL HISTORY SOCIAL HISTORY Past Medical History: Diagnosis Date Acid reflux ADHD (attention deficit hyperactivity disorder) ([facility]) Asthma ([facility]) Asthma affecting , antepartum ([facility]) GERD (gastroesophageal reflux disease) Hypothyroid ([facility]) Lactose intolerance Marijuana use Migraine ([facility]) Mild persistent asthma, uncomplicated ([facility]) MTHFR mutation Seasonal allergies Supervision of normal Thyroid disease ([facility]) Social History Tobacco Use Smoking status: Never [...] reviewed. Vitals: Estimated body mass index is 31.65 kg/m as calculated from the following: Height as of 10/16/23: 5' 4 . Weight as of this encounter: 184 lb 6.4 oz. BP: 112/74 Patient's last menstrual period was 09/24/2023 (exact date). ASSESSMENT & PLAN ICD-10-CM 1. Second trimester Z34.92 POCT urinalysis dipstick manually resulted CANCELED: POC , urine 2. 27 weeks gestation of Z3A.27 POCT urinalysis dipstick manually resulted CANCELED: POC , urine Return OB: Patient presents today for a routine obstetrics appointment. Patient is currently 27w6d . Patient states she is doing well but has complaints of being tired due to current . Patient has verbalizes frequent movement. labor precautions was discussed/given and patient was instructed to perform kick counts three times a day. Patient presents with some blood sugar results. Patient states morning fastings have been high >115-120 and afternoons continue to be high as well. Patient wishes to try to improve diet and return in one week. We will send order to [facility] for diabetic teaching and follow up with her next week. Orders Placed This Encounter Procedures POCT urinalysis dipstick manually resulted Follow Up: Patient is to return to office in 2 week for routine OB appointment. Documented by FERN Luis on behalf of: FERN Luis documented in this encounter [facility] 03-09-2024 History of Presen t illness Narrative [...] esophagitis 09/01/2022 Moderate persistent asthma without complication ([facility]) 09/01/2022 Hypothyroidism, unspecified ([facility]) 03/02/2020 Moderate asthma ([facility]) 01/11/2024 Resolved Ambulatory Problems Diagnosis Date Noted Acquired hypothyroidism ([facility]) 09/01/2022 Allergic rhinitis 09/01/2022 Amenorrhea 09/01/2022 Asthma without status asthmaticus ([facility]) 09/01/2022 Attention deficit hyperactivity disorder ([facility]) 09/01/2022 Asthma affecting , antepartum ([facility]) 09/01/2022 Binge eating disorder 09/01/2022 Difficulty concentrating 09/01/2022 Irregular menstrual cycle 09/01/2022 Left sided sciatica 09/01/2022 Insomnia 09/01/2022 Migraines ([facility]) 09/01/2022 Metallic taste 09/01/2022 Mild persistent asthma without complication ([facility]) 09/01/2022 MTHFR mutation 09/01/2022 Nondependent cannabis abuse 09/01/2022 Other chronic pain 09/01/2022 Seasonal allergies 09/01/2022 Skin sensation disturbance 09/01/2022 Transitory mood disturbance 09/01/2022 Verruca plantaris 09/01/2022 Past Medical History: Diagnosis Date Acid reflux ADHD (attention deficit hyperactivity disorder) ([facility]) Asthma ([facility]) GERD (gastroesophageal reflux disease) Hypothyroid ([facility]) Lactose intolerance Marijuana use Migraine ([facility]) Mild persistent asthma, uncomplicated ([facility]) Supervision of normal Thyroid disease ([facility]) HISTORY PAST MEDICAL HISTORY SOCIAL HISTORY Past Medical History: Diagnosis Date Acid reflux ADHD (attention deficit hyperactivity disorder) ([facility]) Asthma ([facility]) Asthma affecting , antepartum ([facility]) GERD (gastroesophageal reflux disease) Hypothyroid ([facility]) Lactose intolerance Marijuana use Migraine ([facility]) Mild persistent asthma, uncomplicated ([facility]) MTHFR mutation Seasonal allergies Supervision of normal Thyroid disease ([facility]) Social History Tobacco Use Smoking status: Never [...] Laterality Date ADENOIDECTOMY 1999 EAR TUBE REMOVAL 1995 KNEE SURGERY Left [...] gestation of Z3A.23 4. Hypothyroidism, unspecified type ([facility]) E03.9 US OB SCAN FOR GROWTH 5. [...] of: FERN Luis documented in this encounter [facility] 03-09-2024 Miscellaneous Notes Addended by: NIALL CONSTANTINO on: 03/10/2024 09:01 AM Modules accepted: Orders documented in this encounter [facility] 03-09-2024 Note Addended by: NIALL CLEVELAND on: 03/10/2024 09:01 AM Modules accepted: Orders [facility] 03-09-2024 Note Addended by: NIALL CLEVELAND on: 03/10/2024 09:01 AM Modules accepted: Orders [facility] 02-10-2024 History of Presen t illness Narrative [...] esophagitis 09/01/2022 Moderate persistent asthma without complication ([facility] 09/01/2022 Hypothyroidism, unspecified ([facility]) 03/02/2020 Moderate asthma ([facility]) 01/11/2024 Resolved Ambulatory Problems Diagnosis Date Noted Acquired hypothyroidism ([facility]) 09/01/2022 Allergic rhinitis 09/01/2022 Amenorrhea 09/01/2022 Asthma without status asthmaticus ([facility]) 09/01/2022 Attention deficit hyperactivity disorder ([facility]) 09/01/2022 Asthma affecting , antepartum ([facility]) 09/01/2022 Binge eating disorder 09/01/2022 Difficulty concentrating 09/01/2022 Irregular menstrual cycle 09/01/2022 Left sided sciatica 09/01/2022 Insomnia 09/01/2022 Migraines ([facility]) 09/01/2022 Metallic taste 09/01/2022 Mild persistent asthma without complication ([facility]) 09/01/2022 MTHFR mutation 09/01/2022 Nondependent cannabis abuse 09/01/2022 Other chronic pain 09/01/2022 Seasonal allergies 09/01/2022 Skin sensation disturbance 09/01/2022 Transitory mood disturbance 09/01/2022 Verruca plantaris 09/01/2022 Past Medical History: Diagnosis Date Acid reflux ADHD (attention deficit hyperactivity disorder) ([facility]) Asthma ([facility]) GERD (gastroesophageal reflux disease) Hypothyroid ([facility]) Lactose intolerance Marijuana use Migraine ([facility]) Mild persistent asthma, uncomplicated ([facility]) Supervision of normal Thyroid disease ([facility]) HISTORY PAST MEDICAL HISTORY SOCIAL HISTORY Past Medical History: Diagnosis Date Acid reflux ADHD (attention deficit hyperactivity disorder) ([facility]) Asthma ([facility]) Asthma affecting , antepartum ([facility]) GERD (gastroesophageal reflux disease) Hypothyroid ([facility]) Lactose intolerance Marijuana use Migraine ([facility]) Mild persistent asthma, uncomplicated ([facility]) MTHFR mutation Seasonal allergies Supervision of normal Thyroid disease ([facility]) Social History Tobacco Use Smoking status: Never [...] calculated from the following: Height as of 6/21/24: 5' 4 . Weight as of this [...] Herber Coto DO documented in this encounter [facility] 01-11-2024 History of Presen t illness Narrative Reason [...] Every morning, Do not crush or chew. Calcium Citrate-Vitamin D (Calcium Citrate + D3) 250-200 MG-UNIT tablet Calcium Citrate + D3 famotidine (PEPCID) 20 mg, Oral, Every 12 hours fexofenadine (TASHA) 180 mg, Oral, Daily ibuprofen 600 mg, Oral [...] esophagitis 09/01/2022 Moderate persistent asthma without complication ([facility]) 09/01/2022 Hypothyroidism, unspecified ([facility]) 03/02/2020 Resolved Ambulatory Problems Diagnosis Date Noted Acquired hypothyroidism ([facility]) 09/01/2022 Allergic rhinitis 09/01/2022 Amenorrhea 09/01/2022 Asthma without status asthmaticus ([facility]) 09/01/2022 Attention deficit hyperactivity disorder ([facility]) 09/01/2022 Asthma affecting , antepartum ([facility]) 09/01/2022 Binge eating disorder ([facility]) 09/01/2022 Difficulty concentrating 09/01/2022 Irregular menstrual cycle 09/01/2022 Left sided sciatica 09/01/2022 Insomnia 09/01/2022 Migraines ([facility]) 09/01/2022 Metallic taste 09/01/2022 Mild persistent asthma without complication ([facility]) 09/01/2022 MTHFR mutation 09/01/2022 Nondependent cannabis abuse 09/01/2022 Other chronic pain 09/01/2022 Seasonal allergies 09/01/2022 Skin sensation disturbance 09/01/2022 Transitory mood disturbance 09/01/2022 Verruca plantaris 09/01/2022 Past Medical History: Diagnosis Date Acid reflux ADHD (attention deficit hyperactivity disorder) ([facility]) Asthma ([facility]) GERD (gastroesophageal reflux disease) Hypothyroid ([facility]) Lactose intolerance Marijuana use Migraine ([facility]) Mild persistent asthma, uncomplicated ([facility]) Supervision of normal Thyroid disease ([facility]) HISTORY PAST MEDICAL HISTORY SOCIAL HISTORY Past Medical History: Diagnosis Date Acid reflux ADHD (attention deficit hyperactivity disorder) ([facility]) Asthma ([facility]) Asthma affecting , antepartum ([facility]) GERD (gastroesophageal reflux disease) Hypothyroid ([facility]) Lactose intolerance Marijuana use Migraine ([facility]) Mild persistent asthma, uncomplicated ([facility]) MTHFR mutation Seasonal allergies Supervision of normal Thyroid disease ([facility]) Social History Tobacco Use Smoking status: Never [...] SYSTEMS Review of Systems: Review of Systems All other systems reviewed and are negative. OBJECTIVE Objective: Physical Exam Constitutional: Appearance: Normal appearance. She is well-developed. Cardiovascular: Rate and Rhythm: Normal rate and regular rhythm. Pulmonary: Effort: Pulmonary effort is normal. Breath sounds: Normal breath sounds. Abdominal: General: Bowel sounds are normal. There is no distension. Palpations: Abdomen is soft. Tenderness: There is no abdominal tenderness. There is no guarding or rebound. Musculoskeletal: General: No swelling. Normal range of motion. Right lower leg: No edema. Left lower leg: No edema. Neurological: Mental Status: She is alert and oriented to person, place, and time. Skin: General: Skin is warm and dry. Psychiatric: Mood and Affect: Mood normal. Behavior: Behavior normal. Vitals and nursing note reviewed. Exam conducted with a crm manager present. Vitals: Estimated body mass index is 28.06 kg/m as calculated from the following: Height as of 10/16/23: 5' 4 . Weight as of this encounter: 163 lb 8 oz. BP: 118/72 Patient's last menstrual period was 09/24/2023 (exact date). ASSESSMENT & PLAN ICD-10-CM 1. Second trimester Z34.92 POCT urinalysis dipstick manually resulted New OB: Patient presents today for 1st time obstetrics appointment with provider. Patient is currently 15w4d . Patients history has been reviewed in great detail including any potential risks. Patient stated she currently has no complaints. Expectations throughout regarding labs, ultrasounds, and appointments have been discussed with the patient in detail. It was reiterated that the patient is to drink 6-8 glasses of water a day, eat 6 small meals a day, do not consume raw or undercooked meat, and stay away from [facility]. Patient has been consulted regarding any further do's and don'ts of . Patient voiced understanding and all questions and concerns were answered. Discuss Thyroid disorder with patient and spouse--patient will have TSH drawn every 4 weeks throughout . Patient advised to take 81mg Baby Aspirin daily due to thyroid disease and placental health. Patient to start NST/BPP at 32 weeks gestation and Growth Scans starting at 28 weeks gestation. Recommended patient to have MFM referral and at this time patient and spouse would like to defer until later time if needed & if patient decides to have referral done she will reach out to office. Public Records Officer will be notified at time of delivery that every female in patients family has history of thyroid disease. Discussed early 1 hour due to current Thyroid disease, glucose testing made patient sick and patient will record FSBS for 2 weeks and drop results off to office for provider to review. Patient voiced that her asthma has worsened since becoming . Informed patient since she sees a Diamond Setter to schedule appointment to make sure asthma is controlled during . Patient is currently taking My[employer] Chewable kids vitamins. Patient is taking 2 daily and advised to add folic acid due to current vitamin that she is taking not having it in there. Patient voiced that vitamins were making her sick. Patient voiced that with last she was given magnesium and calcium, informed patient that if symptoms arise then to reach out to office and medications could be prescribed. Orders Placed This Encounter Procedures TSH POCT urinalysis dipstick manually resulted Follow Up: Patient is to return in 4 weeks for routine OB appointment. Documented by Oxana Ruby LPN on behalf of: Herber Coto DO documented in this encounter [facility] 06-04-2023 Telephone encount er Note Sent [facility] 06-04-2023 Miscellaneous Notes Formattin g of this note might be different from the original. Sent Patient requesting refill/[place] documented in this encounter [facility] 06-02-2023 Telephone encount er Note Patient requesting refill/[place] [facility] Evaluation note Diagnosis Attention deficit hyperactivity disorder (ADHD), combined type (CMS/HCC) [facility] noteNo assessment information available[facility] Work Phone: Evaluation note* Diagnosis Well woman exam with routine gynecological exam Routine gynecological examination Screening, , for anatomic survey Encounter for anatomic survey Second trimester state, incidental 19 weeks gestation of Screen for STD (sexually transmitted disease) Screening examination for venereal disease Vaginal discharge Leukorrhea, not specified as infective headache in second trimester [facility] Encounter for follow-up ultrasound of anatomy Second trimester state, incidental 23 weeks gestation of Hypothyroidism, unspecified type (CMS/HCC) Diabetes mellitus screening Screening for diabetes mellitus Anxiety, generalized (CMS/HCC) [facility] Diagnosis Second trimester state, incidental 27 weeks gestation of [facility] Diagnosis Second trimester state, incidental Other specified hypothyroidism (CMS/HCC) Moderate asthma, unspecified whether complicated, unspecified whether persistent (CMS/HCC) [facility] Diagnosis 28 weeks gestation of Second trimester state, incidental Gestational diabetes mellitus (GDM), antepartum, gestational diabetes method of control unspecified Anxiety, generalized (CMS/HCC) Nausea Nausea alone Hypothyroidism, unspecified type (CMS/HCC) [facility] Diagnosis 30 weeks gestation of Third trimester state, incidental documented in this encounter [facility] Summary Purpose Family History No Family History Records FoundNo Family History Records FoundNo Family History Records FoundNo Family History Records FoundNo Family History Records Found Advance Directives No Advanced Directives Records Found Advance Directive Response Recorded Date/ Time Advance Directives No July 12 019 12:15pm Chief Complaint and Reason for Visit Chief Complaint r06.81 r05.9 Additional Source Comments INFORMATION SOURCE (unrecogn ized section and content) DATE CREATED AUTHOR 11/18/2018 [facility] DATE CREATED AUTHOR AUTHOR'S ORGANIZ ATION 11/26/2018 [facility] DATE CREATED AUTHOR AUTHOR'S ORGANIZ ATION 09/09/2022 [facility] DATE CREATED AUTHOR AUTHOR'S ORGANIZ ATION 03/16/2024 [facility] DATE CREATED AUTHOR AUTHOR'S ORGANIZ ATION 04/22/2024 [facility] EPIC Reason for Visit (unrecogniz ed section and content) Reason Onset Date Comments Med Refill 06/02/2023 Reason Comments Routine Visit Care Teams (unrecognized sec tion and content) Clerical Support Relationship Specialty Start Date End Date Carlos Alberto Coleman MD [address] [place] [address] PCP - General Family Medicine 09/24/22 Tori Pichardo, [employer] [address] [place] [address] Nurse Practitioner Family Medicine 09/24/22 Sofie Gr NP [address] [place] [address] Nurse Practitioner Pulmonary Disease 04/14/23 Team Status: Active Member Role Status Dates Carlos Alberto Coleman MD Primary Care Provider Active Team Status: Inactive Member Role Status Dates Carlos Alberto Coleman MD Primary Care Provider Active S tart: July 13, 2023 End: July 13, 2023 Sofie Gr NP-C Attending Provider Active Start: July 13, 2023 End: July 13, 2023 Clerical Support Relationship Specialty Start Date End Date Carlos Alberto Coleman MD [address] [place] [address] PCP - General Family Medicine 09/24/22 Tori Pichardo, [employer] IN[employer]ATION HELPER [address] [place] [address] PCP - [place] [employer] 05/28/23 Tori Pichardo [employer] IN[employer]ATION HELPER [address] [place] [address] Nurse Practitioner Family Medicine 09/24/22 Sofie Gr NP [address] [place] [phone] Nurse Practitioner Pulmonary Disease 04/14/23 Clerical Support Relationship Specialty Start Date End Date Carlos Alberto Coleman MD [address] [place] [address] PCP - General Family Medicine 09/24/22 Tori Pichardo NP [address] [place] [address] PCP - [place] [employer] 05/28/23 Tori Pichardo NP [address] [place] [address] Nurse Practitioner Family Medicine 09/24/22 Sofie Gr NP [address] [place] [phone] Nurse Practitioner Pulmonary Disease 04/14/23 Clerical Support Relationship Specialty Start Date End Date Carlos Alberto Coleman MD [address] [place] [address] PCP - General Family Medicine 09/24/22 Tori Pichardo NP [address] [place] [address] PCP - [place] [employer] 05/28/23 Tori Pichardo NP [address] [place] [address] Nurse Practitioner Family Medicine 09/24/22 Sofie Gr NP [address] [place] [id number] Nurse Practitioner Pulmonary Disease 04/14/23 Clerical Support Relationship Specialty Start Date End Date Carlos Alberto Coleman MD [address] [place] [address] PCP - General Family Medicine 09/24/22 Tori Pichardo NP [address] [place] [address] PCP - [place] [employer] 05/28/23 Tori Pichardo NP [address] [place] [address] Nurse Practitioner Family Medicine 09/24/22 Sofie Gr NP [address] [place] [address] Nurse Practitioner Pulmonary Disease 04/14/23 Clerical Support Relationship Specialty Start Date End Date Carlos Alberto Coleman MD [address] [place] [address] PCP - General Family Medicine 09/24/22 Tori Pichardo NP [address] [place] [address] PCP - [facility] [place] 05/28/23 Tori Pichardo NP [address] [place] [address] Nurse Practitioner Family Medicine 09/24/22 Sfoie Gr NP [address] [place] [address] Nurse Practitioner Pulmonary Disease 04/14/23 Clerical Support Relationship Specialty Start Date End Date Carlos Alberto Coleman MD [address] [place] [id number] PCP - General Family Medicine 09/24/22 Tori Pichardo NP [address] [place] [id number] PCP - [facility] [place] 05/28/23 Tori Pichardo NP [address] [place] [id number] Nurse Practitioner Family Medicine 09/24/22 Sofie Gr NP [address] [place] [phone] Nurse Practitioner Pulmonary Disease 04/14/23 Clerical Support Relationship Specialty Start Date End Date Carlos Alberto Coleman MD [address] [place] [id number] PCP - General Family Medicine 09/24/22 Tori Pichardo NP [address] [place] [id number] PCP - [facility] [place] 05/28/23 Tori Pichardo NP [address] [place] [id number] Nurse Practitioner Family Medicine 09/24/22 Sofie Gr NP [address] [place] [phone] Nurse Practitioner Pulmonary Disease 04/14/23 Clerical Support Relationship Specialty Start Date End Date Carlos Alberto Coleman MD [address] [place] [address] PCP - General Family Medicine 09/24/22 Tori Pichardo NP [address] [place] [address] PCP - [facility] [place] 05/28/23 Tori Pichardo NP [address] [place] [address] Nurse Practitioner Family Medicine 09/24/22 Sofie Gr NP [address] [place] [phone] Nurse Practitioner Pulmonary Disease 04/14/23 Clerical Support Relationship Specialty Start Date End Date Carlos Alberto Coleman MD [address] [place] [id number] PCP - General Family Medicine 09/24/22 Tori Pichardo NP [address] [place] [address] PCP - [place] [facility] 05/28/23 Tori Pichardo NP [address] [place] [address] Nurse Practitioner Family Medicine 09/24/22 Sofie Gr NP [address] [place] [phone] Nurse Practitioner Pulmonary Disease 04/14/23 Clerical Support Relationship Specialty Start Date End Date Carlos Alberto Coleman MD [address] [place] [address] PCP - General Family Medicine 09/24/22 Tori Pichardo NP [address] [place] [address] PCP - [place] [facility] 05/28/23 Tori Pichardo NP [address] [place] [address] Nurse Practitioner Family Medicine 09/24/22 Sofie Gr NP [address] [place] [phone] Nurse Practitioner Pulmonary Disease 04/14/23 Clerical Support Relationship Specialty Start Date End Date Carlos Alberto Coleman MD [address] [place] [address] PCP - General Family Medicine 09/24/22 Tori Pichardo NP [address] [place] [address] PCP - [place] [facility] 05/28/23 Tori Pichardo NP [address] [place] [address] Nurse Practitioner Family Medicine 09/24/22 Sofie Gr NP [address] [place] [phone] Nurse Practitioner Pulmonary Disease 04/14/23 Clerical Support Relationship Specialty Start Date End Date Carlos Alberto Coleman MD [address] [place] [address] PCP - General Family Medicine 09/24/22 Tori Pichardo NP [address] [place] [address] PCP - [facility] 05/28/23 Tori Pichardo NP [address] [place] [address] Nurse Practitioner Family Medicine 09/24/22 Sofie Gr NP [address] [place] [address] Nurse Practitioner Pulmonary Disease 04/14/23 Goals (unrecognized [...] BE BASED ON THE PRIMARY CLINICAL RECORDS. [employer] provides no warranty or guarantee of the accuracy or completeness of information in this document.
[2024-04-27 12:27] VITALS: BP 126/83; PULSE 86; TEMP 36.8; O2SAT 99; BMI 31.5
--- NOTE | 2024-04-27 13:18 | ED_ITS ---
HPI - URI/Sore Throat General Chief Complaint: Upper Respiratory Infection Stated Complaint: COUGH, RUNNY NOSE, 30 WEEKS Time Seen by Provider: 04/27/24 12:26 Source: patient Limitations: no limitations History of Present Illness HPI Narrative: Patient is a 28-year-old female who presents to the emergency department for sinus congestion, cough for the last 4 days. Her daughter is also being evaluated for the same. She was concerned because multiple people in the house are sick. And is 30 weeks . She denies any concerns, her OB is aware that she has been having Grayson Wallace contractions. She has not had any objective fevers. She states she has a history of asthma so she wanted to be evaluated. She has not had any vomiting or diarrhea. Related Data Home Medications ?Medication ?Instructions ?Recorded ?Confirmed citalopram 10 mg tablet 10 mg PO DAILY 04/27/24 04/27/24 famotidine 20 mg tablet 20 mg PO DAILY PRN reflux 04/27/24 04/27/24 folic acid 1 mg tablet 1 mg PO DAILY 04/27/24 04/27/24 lansoprazole 30 mg capsule,delayed 30 mg PO DAILY 04/27/24 04/27/24 release levalbuterol HCl 1.25 mg/3 mL 1.25 mg inhalation Q6H PRN 04/27/24 04/27/24 solution for nebulization shortness of breath or wheezing levothyroxine 88 mcg tablet 88 mcg PO DAILY 04/27/24 04/27/24 magnesium oxide 400 mg (241.3 mg 400 mg PO DAILY 04/27/24 04/27/24 magnesium) tablet montelukast 10 mg tablet 10 mg PO DAILY 04/27/24 04/27/24 ondansetron HCl 4 mg tablet 4 mg PO Q8H PRN nausea and vomiting 04/27/24 04/27/24 polysaccharide iron complex 180 mg 180 mg PO DAILY 04/27/24 04/27/24 iron capsule (Pro Fe) Previous Rx's ?Medication ?Instructions ?Recorded amoxicillin 875 mg-potassium 1 tab PO Q12H #20 tabs 04/27/24 clavulanate 125 mg tablet Allergies Allergy/AdvReac Type Severity Reaction Status Date / Time cefuroxime (From Ceftin) Allergy Intermediate Hives Verified 04/27/24 12:33 ciprofloxacin (From Cipro) Allergy Intermediate Difficulty Verified 04/27/24 12:33 Breathing clonidine Allergy Mild Palpitation Verified 04/27/24 12:33 s doxycycline AdvReac Mild Nausea Verified 04/27/24 12:33 Review of Systems ROS Constitutional Denies: fever or chills Ears, nose, mouth, and throat Reports: nasal discharge and nasal congestion; Denies: throat pain Cardiovascular Denies: chest pain Respiratory Reports: cough; Denies: shortness of breath or wheezing Gastrointestinal Denies: nausea, vomiting or diarrhea Integumentary/Breast Denies: rash Neurological Denies: headache Hematologic/Lymphatic Denies: easy bruising or easy bleeding PFSH PFS Social History Little interest or pleasure in doing things: not at all Feeling down, depressed, or hopeless: not at all Exam Narrative Exam Narrative: Gen.: Awake, alert, in no distress Head: Normocephalic, atraumatic ENT: Moist mucous membranes, bilateral TMs clear Respiratory: No respiratory distress, lungs clear bilaterally; speaks in full sentences Cardio: Regular rate and rhythm Extremities: Moves extremities equally Psych: Normal mood and affect Neuro: No focal neuro deficit Skin: Warm, dry, intact Constitutional Vital Signs, click to edit/add: Last Vital Signs Temp 98.3 F 04/27/24 12:27 Pulse 86 04/27/24 12:27 Resp 116 H 04/27/24 12:27 BP 126/83 04/27/24 12:27 Pulse Ox 99 04/27/24 12:27 O2 Del Method Room Air 04/27/24 12:27 Course Vital Signs Vital signs: Vital Signs Temperature 98.3 F 04/27/24 12:27 Pulse Rate 86 04/27/24 12:27 Respiratory Rate 116 H 04/27/24 12:27 Blood Pressure 126/83 04/27/24 12:27 Pulse Oximetry 99 04/27/24 12:27 Oxygen Delivery Method Room Air 04/27/24 12:27 Temperature 98.3 F 04/27/24 12:27 Pulse Rate 86 04/27/24 12:27 Respiratory Rate 116 H 04/27/24 12:27 Blood Pressure 126/83 04/27/24 12:27 Pulse Oximetry 99 04/27/24 12:27 Oxygen Delivery Method Room Air 04/27/24 12:27 MDM - URI/Sore Throat MDM Narrative Medical decision making narrative: Patient in no distress, breathing easily. Treated with Decadron in the emergency department, discharged on Augmentin for antibiotic coverage due to and upper respiratory symptoms. Follow-up with PCP and return to the ER if symptoms change or worsen SUPERVISED APC VISIT, PHYSICIAN ATTESTATION: Based on the medical record the care appears appropriate. ? Medical Records Attestation: I reviewed the patient's medical records. Discharge Plan Discharge Chief Complaint: Upper Respiratory Infection Clinical Impression: Upper respiratory infection Patient Disposition: Home, Self-Care Time of Disposition Decision: 13:17 Condition: Good Prescriptions / Home Meds: New amoxicillin-pot clavulanate 875-125 mg tablet 1 tab PO Q12H Qty: 20 0RF No Action citalopram 10 mg tablet 10 mg PO DAILY famotidine 20 mg tablet 20 mg PO DAILY PRN (Reason: reflux) folic acid 1 mg tablet 1 mg PO DAILY lansoprazole 30 mg capsule,delayed release(DR/EC) 30 mg PO DAILY Rx Instructions: AM levalbuterol HCl 1.25 mg/3 mL solution for nebulization 1.25 mg INHALATION Q6H PRN (Reason: shortness of breath or wheezing) levothyroxine 88 mcg tablet 88 mcg PO DAILY magnesium oxide 400 mg (241.3 mg magnesium) tablet 400 mg PO DAILY montelukast 10 mg tablet 10 mg PO DAILY ondansetron HCl 4 mg tablet 4 mg PO Q8H PRN (Reason: nausea and vomiting) Pro Fe 180 mg iron capsule 180 mg PO DAILY Print Language: Swedish Instructions: Upper Respiratory Infection (ED) Referrals: MO COHEN [Primary Care Provider] - 1 week
[2024-04-27] MEDS: DEXAMETHASONE SOD PHOS 10 MG/ML VIAL PO (13:26)
== END 2024-04-27 13:29 | disposition home or self-care (01) ==
PROVIDERS: Emergency Provider Emergency Medicine; PCP Family Medicine
DX: O99.513 Diseases of the respiratory system complicating pregnancy, third trimester (principal); J06.9 Acute upper respiratory infection, unspecified; Z3A.30 30 weeks gestation of pregnancy
CPT/HCPCS: 99282; J1100

== ENCOUNTER 2024-05-09 00:31 | Outpatient (OUT) | payer BC, MEDICAID, SELFPAY ==
--- OUTSIDE RECORDS SUMMARY | 2024-05-09 00:37 | XMS_ITS | CCD ---
Author Organization [facility] Care Team Providers Care Vineyard Tender Name Role Phone RENEE, MODE R Referring [...] ÁNGEL Attending Unavailable KIEPERT, ÁNGEL Admitting Unavailable HOWELLS, DR DEANNA [employer] Unavailable PAY ., [...] Alberto Coleman MD Primary Care Provider Michelle GAS GOLF CART REPAIRER, Tori Unavailable Maile GAS GOLF CART REPAIRER, Sofie R Unavailable [phone] MD Carlos Alberto Coleman Primary Care Provider HEATHER Gr Attending Provider Maile GAS GOLF CART REPAIRER, Sofie R Unavailable Michelle GAS GOLF CART REPAIRER, Tori Unavailable Sofie Gr Attending Unavailable Sofie Gr Admitting Unavailable Carlos Alberto Coleman Primary Care Unavailable SOFIE GR Attending Unavailable MICHELLE, TORI Attending Unavailable MICHELLE, TORI Attending Unavailable HERBER COTO Attending Unavailable NNAMDI, HERBER Attending Unavailable DWIGHT, TORI Attending Unavailable DWIGHT, TORI Attending Unavailable DWIGHT, TORI Attending Unavailable NNAMDI, HERBER Attending Unavailable Allergies Allergy Classification Reported Allergen(s) Allergy Type Date of Onset Reaction(s) Facility (1 source) Cefuroxime Drug Allergy 04-04-20 22 [facility] Repository (2 sources) Ciprofloxacin Drug Allergy 04-03-20 16 [facility] (2 sources) Doxycycline Drug Allergy 05-20-19 21 vomiting [facility] (1 source) Flupenthixol Drug Allergy 04-04-20 22 [facility] (20 sources) Cefuroxime Drug Allergy 05-20-19 21 Rash [facility] (20 sources) Ciprofloxacin Drug Allergy 09-02-19 23 Shortness of breath [facility] (20 sources) Ciprofloxacin Drug Allergy 09-02-19 23 Shortness of breath [facility] (20 sources) cloNIDine Drug Allergy 03-14-20 21 [facility] (20 sources) cloNIDine Drug Allergy 09-02-19 23 [facility] (20 sources) Doxycycline Drug Allergy 05-20-19 21 GI intolerance [facility] (20 sources) Gluten Propensity to adverse reactions 11-11-19 19 [facility] (20 sources) Lactose (non-medical use) Allergy to substance 09-02-19 23 [facility] (20 sources) Lactose (non-medical use) Drug Intolerance 11-11-19 19 [facility] (20 sources) Octacosanol Drug Intolerance 11-11-19 19 [facility] (20 sources) Other Allergy to substance 11-11-19 19 [facility] (20 sources) Silver Allergy to substance 09-02-19 23 [facility] (20 sources) Wound Dressing Adhesive Drug Allergy 09-02-19 23 [facility] (1 source) Cefuroxime Drug Allergy 05-20-19 21 [facility] Repository (1 source) Ciprofloxacin Drug Allergy 05-20-19 21 [facility] (1 source) Doxycycline Drug Allergy 05-20-19 21 [facility] Medications Current Medications Medication Drug Class(es) Dates Sig (Normalized) Sig (Original) [id number] 200 actuat albuterol 0.09 mg/actuat metered dose [...] Glucose Monitoring Suppl (D-Care Glucometer) w/Device kit (12 sources) Start: 03-21-2024 End: 03-21-2025 Blood Glucose [...] 03/21/2025 Active citalopram 10 mg oral tablet (15 sources) Serotonin Reuptake Inhibitor Start: 03-10-2024 End: [...] Active folic acid 1 mg oral tablet (20 sources) Start: End: take 1 tablet by mouth once daily folic acid (Folvite) 1 MG tablet Indications: Second trimester Take 1 tablet (1 mg) by mouth Daily 30 tablet 6 01/18/2024 01/17/2025 Active isopropyl alcohol 0.7 ml/ml medicated pad (12 sources) Start: Alcohol Swabs (Alcohol Prep Pad) [...] Take 2 mg by mouth. Active Magnesium (8 sources) take 1 capsule by mouth once [...] 10/13/2023 Active ondansetron 4 mg oral tablet (8 sources) Serotonin-3 Receptor Antagonist Start: 04-13-2024 take [...] sources) Nausea; Translations: [Nausea] 04-13-2024 Episodic Other aftercare (2 sources) Encounter for follow-up examination after completed treatment for conditions other than malignant neoplasm; Translations: [Unspecified follow-up examination] 05-02-2024 Episodic Other complications of ; puerperium affecting [...] of ] 04-13-2024 Episodic Residual codes; unclassified (7 sources) Gestation period, 30 weeks; Translations: [30 [...] UA Negative Negative - 4(70) +++ mg/dL [facility] Blood, UA Negative Negative - 50 Mendel/mcL [facility] Clarity, UA Clear [facility] Color, UA Light Yellow [facility] Glucose, UA Negative Negative - 1999(110) ++++ mg/dL [facility] Interpretation and review of laboratory results Normal [facility] Ketones, UA Negative Negative - 160(16) ++++ mg/dL [facility] Leukocytes, UA Few Negative - 500+++ Leighann/mcL [facility] Nitrite, UA Negative Negative - Positive [facility] pH, UA 5.5 5 - 9 [facility] Protein, UA Trace Negative - 1999(20) ++++ mg/dL [facility] Spec Grav, UA 1.03 1 - 1.03 [facility] Urobilinogen, UA 0.2 0.2 - 12 mg/dL [facility] Urinalysis macro (dipstick) panel (U)on 04-13-2024 Bilirubin, UA Negative Negative - 4(70) +++ mg/dL [facility] Blood, UA Negative Negative - 50 Mendel/mcL [facility] Clarity, UA Clear [facility] Color, UA Yellow [facility] Glucose, UA Negative Negative - 1999(110) ++++ mg/dL [facility] Interpretation and review of laboratory results Normal [facility] Ketones, UA Negative Negative - 160(16) ++++ mg/dL [facility] Leukocytes, UA Negative Negative - 500+++ Leighann/mcL [facility] Nitrite, UA Negative Negative - Positive [facility] pH, UA 5.5 5 - 9 [facility] Protein, UA Negative Negative - 1999(20) ++++ mg/dL [facility] Spec Grav, UA 1.03 1 - 1.03 [facility] Urobilinogen, UA 0.2 0.2 - 12 mg/dL [facility] Urinalysis macro (dipstick) panel (U)on 04-06-2024 Bilirubin, UA Negative Negative - 4(70) +++ mg/dL [facility] Blood, UA Negative Negative - 50 Mendel/mcL [facility] Clarity, UA Clear [facility] Color, UA Yellow [facility] Glucose, UA Negative Negative - 1999(110) ++++ mg/dL [facility] Interpretation and review of laboratory results Normal [facility] Ketones, UA Negative Negative - 160(16) ++++ mg/dL [facility] Leukocytes, UA Negative Negative - 500+++ Leighann/mcL [facility] Nitrite, UA Negative Negative - Positive [facility] pH, UA 6 5 - 9 [facility] Protein, UA Negative Negative - 2000(20) ++++ mg/dL [facility] Spec Grav, UA 1.015 1 - 1.03 [facility] Urobilinogen, UA 0.2 0.2 - 12 mg/dL [facility] ALL CBC WITH AUTO DIFFon BASOPHILS ABSOLUTE AUTO 0 [facility] Basophils/100 WBC (Bld) 0.2 % 0.2 - 2.0 % [facility] Eosinophils/100 WBC (Bld) 0.7 % Low 0.9 - 7.0 % [facility] Erythrocyte distribution width (RBC) [Ratio] 12.3 % 11.0 - 15.0 % [facility] Hematocrit (Bld) [Volume fraction] 35.3 % Low 36.0 - 48.0 % [facility] Hemoglobin (Bld) [Mass/Vol] 11.8 g/dL Low 12.0 - 16.0 g/dL [facility] IMMATURE GRANULOCYTES ABS AUTO 0.04 High [facility] Immature granulocytes/100 WBC (Bld) 0.5 % 0.0 - 0.5 % [facility] Interpretation and review of laboratory results Abnormal [facility] LYMPHOCYTES ABSOLUTE AUTO 1.5 [facility] Lymphocytes/100 WBC (Bld) 17.1 % Low 20.5 - 60.0 % [facility] MCH (RBC) [Entitic mass] 31.1 pg 26.7 - 34.0 pg [facility] MCHC (RBC) [Mass/Vol] 33.4 g/dL 29.9 - 35.2 g/dL [facility] MCV (RBC) [Entitic vol] 93.1 fL 81.0 - 99.0 fL [facility] MONOCYTES ABSOLUTE AUTO 0.6 [facility] Monocytes/100 WBC (Bld) 7.2 % 1.7 - 12.0 % [facility] NEUTROPHILS ABSOLUTE AUTO 6.5 [facility] Neutrophils/100 WBC (Bld) 74.3 % 43.0 - 75.0 % [facility] Platelet mean volume (Bld) [Entitic vol] 10.6 fL 9.5 - 13.5 fL [facility] TBH EO # 0.1 [facility] PLT [address] [facility] RBC 3.79 Low [facility] WBC 8.8 [facility] IGP,APTIMA HPV,AGE GDLNon AGE GDLN ACOG TESTING Note . [facility] Comment on above: TESTS RESULT FLAG UN ITS REF RANGE LAB Clinician Provided Cytology Information Source.............Cervix No. of containers..01 ThinPrep Vial Age Algo ACOG Sonja... FLAG LEGEND: L-Low Normal,H-High Normal,LL-Alert Low,HH-Alert High <-Panic Low,>-Panic High,A-Abnormal,AA-Critical Abnormal Performed at: 01 = [employer] [address] Radha Browne MD, HPV APTIMA Negative Negative [facility] Comment on above: This nucleic acid am plification test detects fourteen high- risk HPV types (16,18,31,33,35,39,45,51,52,56,58,59,66,68) without differentiation. Performed at: =[facility] [employer] [id number] Property Portfolio Officer: Radha Browne MD, Phone: [phone] Performed at: [address] [id number] Property Portfolio Officer: Radha Browne MD, Phone: [phone] IGP, APTIMA HPV, RFX 16/18,45 Note . [facility] Comment on above: TESTS RESULT FLAG UN ITS REF RANGE LAB DIAGNOSIS: 02 NEGATIVE FOR INTRAEPITHELIAL LESION OR MALIGNANCY. Specimen adequacy: 02 Satisfactory for evaluation. No endocervical component is identified. Performed by: 02 Danie Vargas Engraver Letter (ASCP) . 02 Note: Note 02 The [...] High,A-Abnormal,AA-Critical Abnormal Performed at: 02 WB [facility] [address] [place] [address] Radha Browne MD, SPATULA-ALONE CERVIX [facility] Cytology Cervical or vaginal smear or scraping studyon 02-10-2024 [facility] Urinalysis macro (dipstick) panel (U)on 02-10-2024 Bilirubin, UA Negative Negative - 4(70) +++ mg/dL [facility] Blood, UA Negative Negative - 50 Mendel/mcL [facility] Clarity, UA Clear [facility] Color, UA Yellow [facility] Glucose, UA Negative Negative - 1999(110) ++++ mg/dL [facility] Interpretation and review of laboratory results Abnormal [facility] Ketones, UA Negative Negative - 160(16) ++++ mg/dL [facility] Leukocytes, UA Trace Negative - 500+++ Leighann/mcL [facility] Nitrite, UA Negative Negative - Positive [facility] pH, UA 7 5 - 9 [facility] Protein, UA Negative Negative - 1999(20) ++++ mg/dL [facility] Spec Grav, UA 1.02 1 - 1.03 [facility] Urobilinogen, UA 0.2 0.2 - 12 mg/dL [facility] ALL THYROID STIM HORMONEon 0 01-22-2024 TSH Qn 1.921 m[IU]/L [facility] Urinalysis macro (dipstick) panel (U)on 01-11-2024 Bilirubin, UA Negative Negative - 4(70) +++ mg/dL [facility] Blood, UA Negative Negative - 50 Mendel/mcL [facility] Clarity, UA Clear [facility] Color, UA Yellow [facility] Glucose, UA Negative Negative - 1999(110) ++++ mg/dL [facility] Interpretation and review of laboratory results Normal [facility] Ketones, UA Negative Negative - 160(16) ++++ mg/dL [facility] Leukocytes, UA Negative Negative - 500+++ Leighann/mcL [facility] Nitrite, UA Negative Negative - Positive [facility] pH, UA 6.0 5 - 9 [facility] Protein, UA Negative Negative - 1999(20) ++++ mg/dL [facility] Spec Grav, UA 1.015 1 - 1.03 [facility] Urobilinogen, UA 0.2 0.2 - 12 mg/dL [facility] BioFire Not Detectedon 07-12 BioFire Not Detected Not detected Normal Not Detecte T krystina [facility] Comment on above: Result Comment: This is a duplicate RP2.1 COVID (PCR) result to be used for statistical tracking purpose only. PERFORMED BY: [place] [address] PATHOLOGIST ELECTROMECHANICAL ASSEMBLER CATY NEELY M.D. Performed By: #### R RODGER PANEL UPP., BIOFIRECOVNOTDE #### [address] COVID-19 Detected/Not Detect edOrdered By: Sofie Gr on 07-13-2023 SARS-CoV-2 (COVID-19) RNA JUAN+non-probe Ql (Nph) Not detected Not Detecte [facility] Comment on above: This is a [...] Influenza A H3 Blank Space PERFORMED BY: [address] [place] [address] PATHOLOGIST ELECTROMECHANICAL ASSEMBLER CATY NEELY M.D. Normal [facility] Comment on above: Performed By: #### R RODGER PANEL UPP., BIOFIRECOVNOTDE #### [facility] [address] Respiratory pathogens DNA an d RNA panel - Nasopharynx by JUAN with non-probe detectionOrdered By: Sofie Gr on 07-13-2023 Respiratory pathogens DNA and RNA panel JUAN+non-probe (Nph) [facility] CBC AUTO DIFFon 06-25-2022 BASO # 0.0 103/ul Normal 0.0-0.1 [facility] Comment on above: Performed By: #### C BC #### [facility] [address] [address] [address] Garland Kohli Basophils/100 WBC (Bld) 0.4 % Normal 0.2-2.0 [facility] Comment on above: Performed By: #### C BC #### [facility] [address] [address] [address] Garland Kohli EO # 0.1 103/ul Normal 0.0-0.7 [facility] Comment on above: Performed By: #### C BC #### [facility] [address] [address] [address] Garland Kohli Eosinophils/100 WBC (Bld) 0.9 % Normal 0.9-7.0 [facility] Comment on above: Performed By: #### C BC #### [facility] [address] [address] [address] Garland Kohli Erythrocyte distribution width (RBC) [Ratio] 12.4 % Normal 11.0-15.0 [facility] Comment on above: Performed By: #### C BC #### [facility] [address] [address] [address] Garland Kohli Hematocrit (Bld) [Volume fraction] 31.4 % Critically low 36.0-48.0 [facility] Comment on above: Performed By: #### C BC #### [facility] [address] [place] [address] Dr. Garland Kohli Hemoglobin (Bld) [Mass/Vol] 10.4 g/dL Critically low 12.0-16.0 [facility] Comment on above: Performed By: #### C BC #### [facility] [address] [place] [address] Dr. Garland Kohli IG # 0.04 10e3/ul Critically high 0.00-0.03 [facility] Comment on above: Performed By: #### C BC #### [facility] [address] [place] [address] Dr. Garland Kohli IG % 0.4 % Normal 0.0-0.5 [facility] Comment on above: Performed By: #### C BC #### [facility] [address] [place] [address] Dr. Garland Kohli LYMPH # 2.0 103/ul Normal 1.2-3.8 [facility] Comment on above: Performed By: #### C BC #### [facility] [address] [place] [address] Dr. Garland Kohli Lymphocytes/100 WBC (Bld) 22.1 % Normal 20.5-60.0 [facility] Comment on above: Performed By: #### C BC #### [facility] [address] [place] [address] Dr. Garland Kohli MANUAL DIFF REQ NO Normal [facility] Comment on above: Performed By: #### C BC #### [facility] [address] [place] [address] Dr. Garland Kohli MCH (RBC) [Entitic mass] 30.1 pg Normal 26.7-34.0 [facility] Comment on above: Performed By: #### C BC #### [facility] [address] [place] [address] Dr. Garland oKhli MCHC (RBC) [Mass/Vol] 33.1 g/dL Normal 29.9-35.2 [facility] Comment on above: Performed By: #### C BC #### [facility] [address] [place] [address] Dr. Garland Kohli MCV (RBC) [Entitic vol] 91.0 fL Normal 81.0-99.0 [facility] Comment on above: Performed By: #### C BC #### [facility] [address] [place] [address] Dr. Garland Kohli MONO # 0.8 103/ul Normal 0.3-0.8 [facility] Comment on above: Performed By: #### C BC #### [facility] [address] [address] [address] Garland Kohli Monocytes/100 WBC (Bld) 8.8 % Normal 1.7-12.0 [facility] Comment on above: Performed By: #### C BC #### [facility] [address] [place] [address] Dr. Garland Kohli NEUT # 6.0 103/ul Normal 1.4-6.5 [facility] Comment on above: Performed By: #### C BC #### [facility] [address] [place] [address] Dr. Garland Kohli Neutrophils/100 WBC (Bld) 67.4 % Normal 43.0-75.0 [facility] Comment on above: Performed By: #### C BC #### [facility] [address] [place] [address] Dr. Garland Kohli Platelet mean volume (Bld) [Entitic vol] 12.0 fL Normal 9.5-13.5 [facility] Comment on above: Performed By: #### C BC #### [facility] [address] [place] [address] Dr. Garland Kohli PLT 151 103/ul Normal 150-450 [facility] Comment on above: Performed By: #### C BC #### [facility] [address] [place] [address] Dr. Garland Kohli RBC 3.45 106/ul Critically low 4.20-5.40 [facility] Comment on above: Performed By: #### C BC #### [facility] [address] [place] [address] Dr. Garland Kohli WBC 8.9 103/ul Normal 4.0-11.0 [facility] Comment on above: Performed By: #### C BC #### [facility] [address] [place] [address] Dr. Garland Kohli CBC AUTO DIFFon 06-23-2022 BASO # 0.0 103/ul Normal 0.0-0.1 [facility] Comment on above: Performed By: #### C BC #### [facility] [address] [place] [address] Dr. Garland Kohli Basophils/100 WBC (Bld) 0.4 % Normal 0.2-2.0 [facility] Comment on above: Performed By: #### C BC #### [facility] [address] [place] [address] Dr. Garland Kohli EO # 0.1 103/ul Normal 0.0-0.7 [facility] Comment on above: Performed By: #### C BC #### [facility] [address] [place] [address] Dr. Garland Kohli Eosinophils/100 WBC (Bld) 0.8 % Critically low 0.9-7.0 [facility] Comment on above: Performed By: #### C BC #### [facility] [address] [place] [address] Dr. Garland Kohli Erythrocyte distribution width (RBC) [Ratio] 12.4 % Normal 11.0-15.0 [facility] Comment on above: Performed By: #### C BC #### [facility] [address] [place] [address] Dr. Garland Kohli Hematocrit (Bld) [Volume fraction] 34.5 % Critically low 36.0-48.0 [facility] Comment on above: Performed By: #### C BC #### [facility] [address] [place] [address] Dr. Garland Kohli Hemoglobin (Bld) [Mass/Vol] 11.6 g/dL Critically low 12.0-16.0 [facility] Comment on above: Performed By: #### C BC #### [facility] [address] [place] [address] Dr. Garland Kohli IG # 0.04 10e3/ul Critically high 0.00-0.03 [facility] Comment on above: Performed By: #### C BC #### [facility] [address] [place] [address] Dr. Garland Kohli IG % 0.5 % Normal 0.0-0.5 [facility] Comment on above: Performed By: #### C BC #### [facility] [address] [place] [address] Dr. Garland Kohli LYMPH # 1.3 103/ul Normal 1.2-3.8 [facility] Comment on above: Performed By: #### C BC #### [facility] [address] [place] [address] Dr. Garland Kohli Lymphocytes/100 WBC (Bld) 17.6 % Critically low 20.5-60.0 [facility] Comment on above: Performed By: #### C BC #### [facility] [address] [place] [address] Dr. Garland Kohli MANUAL DIFF REQ NO Normal [facility] Comment on above: Performed By: #### C BC #### [facility] [address] [place] [address] Dr. Garland Kohli MCH (RBC) [Entitic mass] 29.6 pg Normal 26.7-34.0 [facility] Comment on above: Performed By: #### C BC #### [facility] [address] [place] [address] Dr. Garland Kohli MCHC (RBC) [Mass/Vol] 33.6 g/dL Normal 29.9-35.2 [facility] Comment on above: Performed By: #### C BC #### [facility] [address] [place] [address] Dr. Garland Kohli MCV (RBC) [Entitic vol] 88.0 fL Normal 81.0-99.0 [facility] Comment on above: Performed By: #### C BC #### [facility] [address] [place] [address] Dr. Garland Kohli MONO # 0.9 103/ul Critically high 0.3-0.8 [facility] Comment on above: Performed By: #### C BC #### [facility] [address] [place] [address] Dr. Garland Kohli Monocytes/100 WBC (Bld) 11.7 % Normal 1.7-12.0 [facility] Comment on above: Performed By: #### C BC #### [facility] [address] [place] [address] Dr. Garland Kohli NEUT # 5.1 103/ul Normal 1.4-6.5 [facility] Comment on above: Performed By: #### C BC #### [facility] [address] [place] [address] Dr. Garland Kohli Neutrophils/100 WBC (Bld) 69.0 % Normal 43.0-75.0 [facility] Comment on above: Performed By: #### C BC #### [facility] [address] [place] [address] Dr. Garland Kohli Platelet mean volume (Bld) [Entitic vol] 12.1 fL Normal 9.5-13.5 [facility] Comment on above: Performed By: #### C BC #### [facility] [address] [place] [address] Dr. Garland Kohli PLT 193 103/ul Normal 150-450 [facility] Comment on above: Performed By: #### C BC #### [facility] [address] [place] [address] Dr. Garland Kohli RBC 3.92 106/ul Critically low 4.20-5.40 [facility] Comment on above: Performed By: #### C BC #### [facility] [address] [place] [address] Dr. Garland Kohli WBC 7.4 103/ul Normal 4.0-11.0 [facility] Comment on above: Performed By: #### C BC #### [facility] [address] [place] [address] Dr. Garland Kohli DRUG SCREEN RAPID (URINE)on 06-23-2022 AMP Negative Normal NEGATIVE [facility] Comment on above: Performed By: #### D RUGRPD #### [facility] [address] [place] [address] Dr. Garland Kohli BAR Negative Normal NEGATIVE [facility] Comment on above: Performed By: #### D RUGRPD #### [facility] [address] [place] [address] Dr. Garland Kohli BUP Negative Normal NEGATIVE [facility] Comment on above: Performed By: #### D RUGRPD #### [facility] [address] [place] [address] Dr. Garland Kohli BZO Negative Normal NEGATIVE [facility] Comment on above: Performed By: #### D RUGRPD #### [facility] [address] [place] [address] Dr. Garland Kohli JUANI Negative Normal NEGATIVE [facility] Comment on above: Performed By: #### D RUGRPD #### [facility] [address] [place] [address] Dr. Garland Kohli CUT-OFFS SEE BELOW Normal [facility] Comment on above: Result Comment: AMP (Amphetamine): [...] By: #### D RUGRPD #### [facility] [address] [place] [address] Dr. Garland Kohli DRUG CUT HEADER DRUG CLASS TEST SYSTEM CUT-OFF CONCENTRATIONS ARE FOLLOWS: Normal [facility] Comment on above: Performed By: #### D RUGRPD #### [facility] [address] [place] [address] Dr. Garland Kohli mAMP Negative Normal NEGATIVE [facility] Comment on above: Performed By: #### D RUGRPD #### [facility] [address] [address] [address] Garland Kohli MTD Negative Normal NEGATIVE [facility] Comment on above: Performed By: #### D RUGRPD #### [facility] [address] [place] [address] Dr. Garland Kohli OPI Negative Normal NEGATIVE [facility] Comment on above: Performed By: #### D RUGRPD #### [facility] [address] [place] [address] Dr. Garland Kohli OXY Negative Normal NEGATIVE [facility] Comment on above: Performed By: #### D RUGRPD #### [facility] [address] [place] [address] Dr. Garland Kohli PCP Negative Normal NEGATIVE [facility] Comment on above: Performed By: #### D RUGRPD #### [facility] [address] [place] [address] Dr. Garland Kohli PPX Negative Normal NEGATIVE [facility] Comment on above: Performed By: #### D RUGRPD #### [facility] [address] [address] [address] Garland Kohli TCA Negative Normal NEGATIVE [facility] Comment on above: Performed By: #### D RUGRPD #### [facility] [address] [place] [address] Dr. Garland Kohli THC Negative Normal NEGATIVE [facility] Comment on above: Performed By: #### D RUGRPD #### [facility] [address] [place] [address] Dr. Garland Kohli TYPE AND SCREENon 06-23-2022 TYPE AND SCREEN Negative Normal [facility] Comment on above: Performed By: #### T NS #### [facility] [address] [place] [address] Dr. Garland Kohli FREE T4on 06-07-2022 Free T4 [Mass/Vol] 0.76 ng/dL Normal 0.76-1.46 [facility] Comment on above: Performed By: #### C BC #### [facility] [address] [place] [address] Dr. Garland Kohli TSHon 06-07-2022 TSH 1.393 uIU/mL Normal 0.358-3.740 [facility] Comment on above: Performed By: #### T SH #### [facility] [address] [place] [address] Dr. Garland Kohli GROUP B STREP CULTUREon S. agalactiae Ag Ql (Unsp spec) Culture Observations: NEGATIVE FOR GROUP B STREPTOCOCCUS. Normal [facility] Comment on above: Performed By: #### C BC #### [facility] [address] [place] [address] Dr. Garland Kohli GTT 3 HR PREGon 04-16-2022 Glucose [Mass/Vol] 87 mg/dL Normal 74-106 [facility] Comment on above: Performed By: #### G TT3P #### [facility] [address] [place] [address] Dr. aGrland Kohli Glucose [Mass/Vol] 148 mg/dL Normal [facility] Comment on above: Performed By: #### G TT3P #### [facility] [address] [place] [address] Dr. Garland Kohli Glucose [Mass/Vol] 128 mg/dL Normal [facility] Comment on above: Performed By: #### G TT3P #### [facility] [address] [place] [address] Dr. Garland Kohli Glucose [Mass/Vol] 105 mg/dL Normal [facility] Comment on above: Performed By: #### G TT3P #### [facility] [address] [place] [address] Dr. Garland Kohli CBC AUTO DIFFon 04-04-2022 BASO # 0.0 103/ul Normal 0.0-0.1 [facility] Comment on above: Performed By: #### G TT3P #### [facility] [address] [place] [address] Dr. Garland Kohli Basophils/100 WBC (Bld) 0.2 % Normal 0.2-2.0 [facility] Comment on above: Performed By: #### G TT3P #### [facility] [address] [address] [address] Garland Kohli EO # 0.0 103/ul Normal 0.0-0.7 [facility] Comment on above: Performed By: #### G TT3P #### [facility] [address] [place] [address] Dr. Garland Kohli Eosinophils/100 WBC (Bld) 0.4 % Critically low 0.9-7.0 [facility] Comment on above: Performed By: #### G TT3P #### [facility] [address] [address] [address] Garland Kohli Erythrocyte distribution width (RBC) [Ratio] 12.9 % Normal 11.0-15.0 [facility] Comment on above: Performed By: #### G TT3P #### [facility] [address] [place] [address] Dr. Garland Kohli Hematocrit (Bld) [Volume fraction] 32.5 % Critically low 36.0-48.0 [facility] Comment on above: Performed By: #### G TT3P #### [facility] [address] [place] [address] Dr. Garland Kohli Hemoglobin (Bld) [Mass/Vol] 11.2 g/dL Critically low 12.0-16.0 [facility] Comment on above: Performed By: #### G TT3P #### [facility] [address] [place] [address] Dr. Garland Kohli IG # 0.07 10e3/ul Critically high 0.00-0.03 [facility] Comment on above: Performed By: #### G TT3P #### [facility] [address] [place] [address] Dr. Garland Kohli IG % 0.8 % Critically high 0.0-0.5 [facility] Comment on above: Performed By: #### G TT3P #### [facility] [address] [place] [address] Dr. Garland Kohli LYMPH # 0.9 103/ul Critically low 1.2-3.8 [facility] Comment on above: Performed By: #### G TT3P #### [facility] [address] [place] [address] Dr. Garland Kohli Lymphocytes/100 WBC (Bld) 10.4 % Critically low 20.5-60.0 [facility] Comment on above: Performed By: #### G TT3P #### [facility] [address] [place] [address] Dr. Garland Kohli MANUAL DIFF REQ NO Normal [facility] Comment on above: Performed By: #### G TT3P #### [facility] [address] [place] [address] Dr. Garland Kohli MCH (RBC) [Entitic mass] 31.4 pg Normal 26.7-34.0 [facility] Comment on above: Performed By: #### G TT3P #### [facility] [address] [place] [address] Dr. Garland Kohli MCHC (RBC) [Mass/Vol] 34.5 g/dL Normal 29.9-35.2 [facility] Comment on above: Performed By: #### G TT3P #### [facility] [address] [place] [address] Dr. Garland Kohli MCV (RBC) [Entitic vol] 91.0 fL Normal 81.0-99.0 [facility] Comment on above: Performed By: #### G TT3P #### [facility] [address] [place] [address] Dr. Garland Kohli MONO # 1.1 103/ul Critically high 0.3-0.8 [facility] Comment on above: Performed By: #### G TT3P #### [facility] [address] [place] [address] Dr. Garland Kohli Monocytes/100 WBC (Bld) 12.5 % Critically high 1.7-12.0 [facility] Comment on above: Performed By: #### G TT3P #### [facility] [address] [place] [address] Dr. Garland Kohli NEUT # 6.3 103/ul Normal 1.4-6.5 [facility] Comment on above: Performed By: #### G TT3P #### [facility] [address] [place] [address] Dr. Garland Kohli Neutrophils/100 WBC (Bld) 75.7 % Critically high 43.0-75.0 [facility] Comment on above: Performed By: #### G TT3P #### [facility] [address] [place] [address] Dr. Garland Kohli Platelet mean volume (Bld) [Entitic vol] 10.5 fL Normal 9.5-13.5 [facility] Comment on above: Performed By: #### G TT3P #### [facility] [address] [place] [address] Dr. Garland Kohli PLT 181 103/ul Normal 150-450 [facility] Comment on above: Performed By: #### G TT3P #### [facility] [address] [place] [address] Dr. Garland Kohli RBC 3.57 106/ul Critically low 4.20-5.40 [facility] Comment on above: Performed By: #### G TT3P #### [facility] [address] [place] [address] Dr. Garland Kohli WBC 8.4 103/ul Normal 4.0-11.0 [facility] Comment on above: Performed By: #### G TT3P #### [facility] [address] [place] [address] Dr. Garland Kohli CTA CHEST WO W [...] by: DEANNA LINN Date: 2022-04-04 15:25 Normal [facility] PROF CHEM 8 (BAS METB)on Anion gap [Moles/Vol] 13.2 mmol/L Normal [facility] Comment on above: Performed By: #### G TT3P #### [facility] [address] [place] [address] Dr. Garland Kohli Calcium [Mass/Vol] 8.5 mg/dL Normal 8.5-10.1 [facility] Comment on above: Performed By: #### G TT3P #### [facility] [address] [place] [address] Dr. Garland Kohli Chloride [Moles/Vol] 103 mmol/L Normal 98-107 [facility] Comment on above: Performed By: #### G TT3P #### [facility] [address] [address] [address] Garland Kohli CO2 [Moles/Vol] 23.4 mmol/L Normal 21.0-32.0 [facility] Comment on above: Performed By: #### G TT3P #### [facility] [address] [address] [address] Garland Kohli Creatinine [Mass/Vol] 0.43 mg/dL Critically low 0.55-1.02 [facility] Comment on above: Performed By: #### G TT3P #### [facility] [address] [address] [address] Garland Kohli EGFR-AF POLISH >60 Normal >=60 [facility] Comment on above: Performed By: #### G TT3P #### [facility] [address] [place] [address] Dr. Garland Kohli EGFR-NON AF POLISH >60 Normal >=60 [facility] Comment on above: Performed By: #### G TT3P #### [facility] [address] [address] [address] Garland Kohli Glucose [Mass/Vol] 108 mg/dL Critically high 74-106 [facility] Comment on above: Performed By: #### G TT3P #### [facility] [address] [address] [address] Garland Kohli Potassium [Moles/Vol] 3.6 mmol/L Normal 3.5-5.1 [facility] Comment on above: Performed By: #### G TT3P #### [facility] [address] [address] [address] Garland Kohli Sodium [Moles/Vol] 136 mmol/L Normal 136-145 [facility] Comment on above: Performed By: #### G TT3P #### [facility] [address] [place] [address] Dr. Garland Kohli Urea nitrogen [Mass/Vol] 5.0 mg/dL Critically low 7.0-18.0 [facility] Comment on above: Performed By: #### G TT3P #### [facility] [address] [place] [address] Dr. Garland Kohli Urea nitrogen/Creatinine [Mass ratio] 11.6 mg/mg Normal [facility] Comment on above: Performed By: #### G TT3P #### [facility] [address] [place] [address] Dr. Garland Kohli TROPONIN, HIGH SENSITIVITYon 04-04-2022 HSTROP 9.3 pg/mL Normal 4.0-51.3 [facility] Comment on above: Result Comment: CUT- OFF POINTS HAVE BEEN ESTABLISHED BASED ON THE FOURTH UNIVERSAL DEFINITIONS OF MYOCARDIAL INFARCTION. THE UPPER REFERENCE LIMIT (URL) OF TROPONIN, DEFINED THE 99TH PERCENTILE OF cTnI DISTRIBUTION IN A REFERENCE POPULATION, HAS BEEN CONFIRMED THE DECISION THRESHOLD FOR [place] DIAGNOSIS. Performed By: #### G TT3P #### [facility] [address] [place] [address] Dr. Garland Kohli CBC AUTO DIFFon 03-26-2022 BASO # 0.0 103/ul Normal 0.0-0.1 [facility] Comment on above: Performed By: #### G TT3P #### [facility] [address] [address] [address] Garland Kohli Basophils/100 WBC (Bld) 0.2 % Normal 0.2-2.0 [facility] Comment on above: Performed By: #### G TT3P #### [facility] [address] [address] [address] Garland Kohli EO # 0.1 103/ul Normal 0.0-0.7 [facility] Comment on above: Performed By: #### G TT3P #### [facility] [address] [place] [address] Dr. Garland Kohli Eosinophils/100 WBC (Bld) 1.0 % Normal 0.9-7.0 [facility] Comment on above: Performed By: #### G TT3P #### [facility] [address] [place] [address] Dr. Garland Kohli Erythrocyte distribution width (RBC) [Ratio] 12.8 % Normal 11.0-15.0 [facility] Comment on above: Performed By: #### G TT3P #### [facility] [address] [place] [address] Dr. Garland Kohli Hematocrit (Bld) [Volume fraction] 36.2 % Normal 36.0-48.0 [facility] Comment on above: Performed By: #### G TT3P #### [facility] [address] [place] [address] Dr. Garland Kohli Hemoglobin (Bld) [Mass/Vol] 12.2 g/dL Normal 12.0-16.0 [facility] Comment on above: Performed By: #### G TT3P #### [facility] [address] [place] [address] Dr. Garland Kohli IG # 0.08 10e3/ul Critically high 0.00-0.03 [facility] Comment on above: Performed By: #### G TT3P #### [facility] [address] [place] [address] Dr. Garland Kohli IG % 0.9 % Critically high 0.0-0.5 [facility] Comment on above: Performed By: #### G TT3P #### [facility] [address] [place] [address] Dr. Garland Kohli LYMPH # 1.7 103/ul Normal 1.2-3.8 [facility] Comment on above: Performed By: #### G TT3P #### [facility] [address] [place] [address] Dr. Garland Kohli Lymphocytes/100 WBC (Bld) 17.8 % Critically low 20.5-60.0 [facility] Comment on above: Performed By: #### G TT3P #### [facility] [address] [place] [address] Dr. Garland Kohli MANUAL DIFF REQ NO Normal [facility] Comment on above: Performed By: #### G TT3P #### [facility] [address] [place] [address] Dr. Garland Kohli MCH (RBC) [Entitic mass] 30.7 pg Normal 26.7-34.0 [facility] Comment on above: Performed By: #### G TT3P #### [facility] [address] [place] [address] Dr. Garland Kohli MCHC (RBC) [Mass/Vol] 33.7 g/dL Normal 29.9-35.2 [facility] Comment on above: Performed By: #### G TT3P #### [facility] [address] [place] [address] Dr. Garland Kohli MCV (RBC) [Entitic vol] 91.2 fL Normal 81.0-99.0 [facility] Comment on above: Performed By: #### G TT3P #### [facility] [address] [place] [address] Dr. Garland Kohli MONO # 0.6 103/ul Normal 0.3-0.8 [facility] Comment on above: Performed By: #### G TT3P #### [facility] [address] [place] [address] Dr. Garland Kohli Monocytes/100 WBC (Bld) 6.0 % Normal 1.7-12.0 [facility] Comment on above: Performed By: #### G TT3P #### [facility] [address] [address] [address] Garland Kohli NEUT # 6.9 103/ul Critically high 1.4-6.5 [facility] Comment on above: Performed By: #### G TT3P #### [facility] [address] [address] [address] Garland Kohli Neutrophils/100 WBC (Bld) 74.1 % Normal 43.0-75.0 [facility] Comment on above: Performed By: #### G TT3P #### [facility] [address] [address] [address] Garland Kohli Platelet mean volume (Bld) [Entitic vol] 10.2 fL Normal 9.5-13.5 [facility] Comment on above: Performed By: #### G TT3P #### [facility] [address] [address] [address] Garland Kohli PLT 217 103/ul Normal 150-450 [facility] Comment on above: Performed By: #### G TT3P #### [facility] [address] [address] [address] Garland Kohli RBC 3.97 106/ul Critically low 4.20-5.40 [facility] Comment on above: Performed By: #### G TT3P #### [facility] [address] [address] [address] Garland Kohli WBC 9.3 103/ul Normal 4.0-11.0 [facility] Comment on above: Performed By: #### G TT3P #### [facility] [address] [address] [address] Garland Kohli GLUCOSE - 1HRon 03-26-2022 Glucose [Mass/Vol] 155 mg/dL Critically high 74-106 [facility] Comment on above: Performed By: #### C BC #### [facility] [address] [address] [address] Garland Kohli US PREG ANATOMY SINGLEon [...] Date: 2022-02-09 19:30 Normal [facility] AFP MATERNAL FOR SPINA BIFID Aon 01-29-2022 AFP MoM 0.76 Normal [facility] Comment on above: Performed By: #### G TT3P #### [facility] [address] [address] [address] Garland Kohli AFP Value 35.4 ng/mL Normal [facility] Comment on above: Performed By: #### G TT3P #### [facility] [address] [address] [address] Garland Kohli AFP, Serum for Spina Bifida Report Normal [facility] Comment on above: Performed By: #### G TT3P #### [facility] [address] [address] [address] Garland Kohli Comment Comment Normal [facility] Comment on above: Result Comment: Stanley Almodovar, Ph.D., [facility] Director . References: Available Upon Request. . Multiples Of Median Cutoffs For AFP Elevations Mark 2.5 Black 2.8 IDD 2.0 Twins 4.5 Abbreviation Definitions IDD - Insulin Dep Diabetes OSBR - Open Spina Bifida Risk . For further inquiries contact [facility] at [phone]. . This test was developed and its performance characteristics determined by [employer]. It has not been cleared or approved by the Food and Drug Administration. Performed By: #### G TT3P #### [facility] [address] [address] [address] Garland Izquierdo Age Collection Date 18.1 weeks [facility] Comment on above: Performed By: #### G TT3P #### [facility] [address] [place] [address] Dr. Garland Kohli Gestat, Age Based on Ultrasound Normal [facility] Comment on above: Result Comment: 09:4 on 11/26/2021 Recalculations are not recommended when gestational dating by LMP and ultrasound are within 10 days. Performed By: #### G TT3P #### [facility] [address] [place] [address] Dr. Garland Kohli Insulin Dep Diabetes No Normal [facility] Comment on above: Performed By: #### G TT3P #### [facility] [address] [place] [address] Dr. Garland Kohli Interpretation Comment Normal [facility] Comment on above: Result Comment: Inte [...] Customer Services to discuss available options. The [place] recommends amniocentesis be offered to women age 35 and older. Performed By: #### G TT3P #### [facility] [address] [address] [address] Garland Kohli [age] Normal [facility] Comment on above: Performed By: #### G TT3P #### [facility] [address] [address] [address] Garland Kohli Multiple Gestation No Normal [facility] Comment on above: Performed By: #### G TT3P #### [facility] [address] [address] [address] Garland Kohli OSBR Risk 1 [place] [address] [facility] Comment on above: Performed By: #### G TT3P #### [facility] [address] [address] [address] Garland Kohli PDF . [facility] Comment on above: Performed By: #### G TT3P #### [facility] [address] [address] [address] Garland Kohli Race [facility] Comment on above: Performed By: #### G TT3P #### [facility] [address] [address] [address] Garland Kohli Test Results: Negative [facility] Comment on above: Performed By: #### G TT3P #### [facility] [address] [place] [address] Dr. Garland Kohli PAP ACOG PANEL 2: 21 to 29on 01-23-2022 . . [facility] Comment on above: Performed By: #### 4 [id number] #### [facility] [address] [place] [address] Dr. Garland Kohli Age Gdln ACOG Testing [facility] Comment on above: Performed By: #### 4 [id number] #### [facility] [address] [place] [address] Dr. Garland Kohli DIAGNOSIS: Comment [facility] Comment on above: Result Comment: NEGA TIVE FOR INTRAEPITHELIAL LESION OR MALIGNANCY. Performed By: #### 4 [id number] #### [facility] [address] [address] [address] Garland Kohli Methodology: Comment Normal [facility] Comment on above: Result Comment: This liquid based ThinPrep(R) pap test was screened with the use of an image guided system. Performed By: #### 4 [id number] #### [facility] [address] [place] [address] Dr. Garland Kohli Note: Comment Normal [facility] Comment on above: Result Comment: The Pap smear is a screening test designed to aid in the detection of premalignant and malignant conditions of the uterine cervix. It is not a diagnostic procedure and should not be used as the sole means of detecting cervical cancer. Both false-positive and false-negative reports do occur. . Performed By: #### 4 [id number] #### [facility] [address] [place] [address] Dr. Garland Kohli Performed by: Comment Normal [facility] Comment on above: Result Comment: Kelly Arreguin, Engraver Letter (ASCP) Performed By: #### 4 [id number] #### [facility] [address] [place] [address] Dr. Garland Kohli Reflex Criteria: Comment Normal [facility] Comment on above: Result Comment: The HPV DNA reflex criteria were not met with this specimen result therefore, no HPV testing was performed. . Performed By: #### 4 [id number] #### [facility] [address] [place] [address] Dr. Garland Kohli Specimen adequacy: Comment Normal [facility] Comment on above: Result Comment: Sati sfactory for evaluation. No endocervical component is identified. Performed By: #### 4 [id number] #### [facility] [address] [place] [address] Dr. Garland Kohli CHLAMYDIA/GONOCOCCUS JUAN (SW AB/URINE/PAPon 01-20-2022 Chlamydia trachomatis, JUAN Negative Normal Negative [facility] Comment on above: Performed By: #### C BC #### [facility] [address] [place] [address] Dr. Garland Kohli Neisseria gonorrhoeae, JUAN Negative Normal Negative [facility] Comment on above: Performed By: #### C BC #### [facility] [address] [place] [address] Dr. Garland Kohli TSHon 01-04-2022 TSH 1.707 uIU/mL Normal 0.358-3.740 [facility] Comment on above: Performed By: #### G TT3P #### [facility] [address] [place] [address] Dr. Garland Kohli HEPATITIS C VIRUS AB W/ REFL EX QUANTon 12-17-2021 HCV AB <0.1 Normal 0.0-0.9 [facility] Comment on above: Performed By: #### G TT3P #### [facility] [address] [place] [address] Dr. Garland Kohli Interpretation: Comment Normal [facility] Comment on above: Result Comment: Nega tive Not infected with HCV, unless recent infection is suspected or other evidence exists to indicate HCV infection. Performed By: #### G TT3P #### [facility] [address] [place] [address] Dr. Garland Kohli CULTURE URINEon 12-15-2021 CULTURE URINE Culture Observations : GREATER THAN TWO ORGANISMS PRESENT. PLEASE RESUBMIT CLEAN CATCH MID-STREAM URINE IF CLINICALLY INDICATED. Normal [facility] Comment on above: Performed By: #### U RCX #### [facility] [address] [place] [address] Dr. Garland Kohli HEP B SURFACE ANTIGEN SCREEN on 12-15-2021 HBsAg Screen Negative Normal Negative [facility] Comment on above: Performed By: #### H BSANS #### [facility] [address] [place] [address] Dr. Garland Kohli HIV 1 AND 2 WITH REFLEXon HIV Screen 4th Generation wRfx Non-Reactive Normal Non Reactive [facility] Comment on above: Result Comment: HIV Negative HIV-1/HIV-2 antibodies and HIV-1 p24 antigen were NOT detected. There is no laboratory evidence of HIV infection. Performed By: #### H IV12 #### [facility] [address] [place] [address] Dr. Garland Kohli RPR QUANTon 12-15-2021 Rapid Plasma Reagin, Quant Non-Reactive Normal NonRea<1:1 [facility] Comment on above: Result Comment: Elmo torres Note: This test does not meet current guidelines for screening and diagnosis of syphilis. This test is intended for following treatment response in patients being treated for syphilis infection. To screen for syphilis infection, a reflex cascade that includes both RPR and a treponema-specific assay should be utilized, such as Treponema pallidum (Syphilis) Screening [place] (106632) or Rapid Plasma Reagin (RPR) Test With Reflex to Quantitative RPR and Confirmatory Treponema pallidum Antibodies (604173). Performed By: #### G TT3P #### [facility] [address] [place] [address] Dr. Garland Kohli RUBELLA AB IGGon 12-15-2021 Rubella Antibodies, IgG 4.72 index Normal Immune >0.99 [facility] Comment on above: Result Comment: Non- immune <0.90 Equivocal 0.90 - 0.99 Immune >0.99 Performed By: #### G TT3P #### [facility] [address] [place] [address] Dr. Garland Kohli CBC AUTO DIFFon 12-14-2021 BASO # 0.0 103/ul Normal 0.0-0.1 [facility] Comment on above: Performed By: #### C BC #### [facility] [address] [place] [address] Dr. Garland Kohli Basophils/100 WBC (Bld) 0.3 % Normal 0.2-2.0 [facility] Comment on above: Performed By: #### C BC #### [facility] [address] [place] [address] Dr. Garland Kohli EO # 0.1 103/ul Normal 0.0-0.7 [facility] Comment on above: Performed By: #### C BC #### [facility] [address] [place] [address] Dr. Garland Kohli Eosinophils/100 WBC (Bld) 0.8 % Critically low 0.9-7.0 [facility] Comment on above: Performed By: #### C BC #### [facility] [address] [place] [address] Dr. Garland Kohli Erythrocyte distribution width (RBC) [Ratio] 12.6 % Normal 11.0-15.0 [facility] Comment on above: Performed By: #### C BC #### [facility] [address] [place] [address] Dr. Garland Kohli Hematocrit (Bld) [Volume fraction] 34.3 % Critically low 36.0-48.0 [facility] Comment on above: Performed By: #### C BC #### [facility] [address] [place] [address] Dr. aGrland Kohli Hemoglobin (Bld) [Mass/Vol] 11.7 g/dL Critically low 12.0-16.0 [facility] Comment on above: Performed By: #### C BC #### [facility] [address] [place] [address] Dr. Garland Kohli IG # 0.03 10e3/ul Normal 0.00-0.03 [facility] Comment on above: Performed By: #### C BC #### [facility] [address] [place] [address] Dr. Garland Kohli IG % 0.4 % Normal 0.0-0.5 [facility] Comment on above: Performed By: #### C BC #### [facility] [address] [place] [address] Dr. Garland Kohli LYMPH # 1.5 103/ul Normal 1.2-3.8 [facility] Comment on above: Performed By: #### C BC #### [facility] [address] [place] [address] Dr. Garland Kohli Lymphocytes/100 WBC (Bld) 21.1 % Normal 20.5-60.0 [facility] Comment on above: Performed By: #### C BC #### [facility] [address] [place] [address] Dr. Garland Kohli MANUAL DIFF REQ NO Normal [facility] Comment on above: Performed By: #### C BC #### [facility] [address] [place] [address] Dr. Garland Kohli MCH (RBC) [Entitic mass] 30.5 pg Normal 26.7-34.0 [facility] Comment on above: Performed By: #### C BC #### [facility] [address] [place] [address] Dr. Garland Kohli MCHC (RBC) [Mass/Vol] 34.1 g/dL Normal 29.9-35.2 [facility] Comment on above: Performed By: #### C BC #### [facility] [address] [place] [address] Dr. Garland Kohli MCV (RBC) [Entitic vol] 89.6 fL Normal 81.0-99.0 [facility] Comment on above: Performed By: #### C BC #### [facility] [address] [place] [address] Dr. Garland Kohli MONO # 0.5 103/ul Normal 0.3-0.8 [facility] Comment on above: Performed By: #### C BC #### [facility] [address] [place] [address] Dr. Garland Kohli Monocytes/100 WBC (Bld) 7.1 % Normal 1.7-12.0 [facility] Comment on above: Performed By: #### C BC #### [facility] [address] [place] [address] Dr. Garland Kohli NEUT # 5.0 103/ul Normal 1.4-6.5 [facility] Comment on above: Performed By: #### C BC #### [facility] [address] [place] [address] Dr. Garland Kohli Neutrophils/100 WBC (Bld) 70.3 % Normal 43.0-75.0 [facility] Comment on above: Performed By: #### C BC #### [facility] [address] [place] [address] Dr. Garland Kohli Platelet mean volume (Bld) [Entitic vol] 10.1 fL Normal 9.5-13.5 [facility] Comment on above: Performed By: #### C BC #### [facility] [address] [address] [address] Garland Kohli PLT 234 103/ul Normal 150-450 [facility] Comment on above: Performed By: #### C BC #### [facility] [address] [place] [address] Dr. Garland Kohli RBC 3.83 106/ul Critically low 4.20-5.40 [facility] Comment on above: Performed By: #### C BC #### [facility] [address] [place] [address] Dr. Garland Kohli WBC 7.1 103/ul Normal 4.0-11.0 [facility] Comment on above: Performed By: #### C BC #### [facility] [address] [place] [address] Dr. Garland Kohli GLYCOHEMOGLOBIN A1Con 2021 ADA RECOMMENDATION SEE BELOW Normal [facility] Comment on above: Result Comment: ADA RECOMMENDED LIMIT 4.0 - 6.0 ADA THERAPEUTIC TARGET < 7.0 ACTION SUGGESTED > 7.0 Performed By: #### A 1C #### [facility] [address] [place] [address] Dr. Garland Kohli Glucose [Mass/Vol] 103 mg/dL Normal [facility] Comment on above: Performed By: #### A 1C #### [facility] [address] [place] [address] Dr. Garland Kohli HbA1c (Bld) [Mass fraction] 5.2 % Normal 4.5-6.2 [facility] Comment on above: Performed By: #### A 1C #### [facility] [address] [place] [address] Dr. Garland Kohli MARTÍNEZ BOX TEST PT SEND OUTo n 12-14-2021 SENT TO REF LAB 12/14/21 Normal [facility] Comment on above: Performed By: #### G TT3P #### [facility] [address] [place] [address] Dr. Garland Kohli TYPE AND SCREENon 12-14-2021 TYPE AND SCREEN Negative Normal [facility] Comment on above: Performed By: #### C BC #### [facility] [id number] 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 Steri-Strips applied throughout and then bulky gauze dressing as well as surgical bra was applied. The patient was awoken, extubated, and transported to the recovery room in stable condition. Sponge, needle, and instrument counts were reported correct x2 at the end of the case. MODE RENEE [id number] Doc#: [id number] CC: Carlos Alberto Coleman Normal [facility] Surgical Pathologyon 019 Surgical Pathology (NOTE) [id number] [facility] [address] [place] [address]. [address] [address] SURGICAL PATHOLOGY REPORT Patient Name: CECELIA JOHNSON MR#: [id number] Specimen #[id number] Final Diagnosis SPECIMEN A : BREAST AND [...] The entire specimen weighs 453 grams. Multiple new accounts representative sections are submitted in five cassettes [...] also sampled in multiple different areas and new accounts representative sections are submitted in five cassettes for microscopic examination. Microscopic Description Specimen A : Five RICHARD glass slides are received. Microscopic examination is performed. Specimen B : Five RICHARD glass slides are received. Microscopic examination is performed. Normal [facility] Comment on above: Performed By: #### P PPES #### [facility] [address] [place] [address] Property Portfolio Officer: Victor Manuel Hunter DO CNOVSPon 11-18-2018 CNOVS Visit (SP) Office (KATHARINE) CECELIA JOHNSON ([id number]) 1995 F Date Time Provider Department 11/18/18 1:00 PM JAZ MOULTON MD During your visit today, we recorded the following information about you: Temperature Pulse Respiration Blood pressure 97.9 degrees 82/minute 18/minute 122/78 Weight Height Last Period 82.7 kg 1.6 m 10/15/18 Jaz Moulton MD 11/18/2018 3:08 PM Signed PATIENT NAME: Cecelia Johnson CLINIC NO.: [id number] ATTENDING PHYSICIAN: Jaz Moulton MD DATE OF [...] file Gets together: Not on file Attends faith service: Not on file Active member of [...] number below. Jaz Moulton M.D. Hematology/Medical Oncology [address] [phone] CC: Carlos Alberto Coleman MD - (Inactive), In Basket (Inactive) - User (Inactive) [phone] [facility] [phone] () Mode Renee MD Referring Provider: [...] Status:Closed by JAZ MOULTON MD on 11/18/18 [facility] PROGRESSon 11-18-2018 PROGRESS HNO ID: [id number] Author: Jaz Hill) [place] Service: ? Author Type: Physician Type: Progress Notes Filed: 11/18/2018 3:08 PM Note Text: PATIENT NAME: Cecelia Johnson [facility] NO.: [id number] ATTENDING PHYSICIAN: Jaz Moulton MD DATE OF [...] file Gets together: Not on file Attends faith service: Not on file Active member of [...] Moulton M.D. Hematology/Medical Oncology [facility] [phone] CC: Carlos Alberto Coleman MD - (Inactive), In Basket (Inactive) - User (Inactive) [address] [place] [phone] (Ph) Mode Renee MD Normal [facility] Basic Metabolic Profon 11-10 (cont.) Normal [facility] Comment on above: Result Comment: Aver age GFR for 20-29 years old: 116 mL/min/1.73sq m Chronic Kidney Disease: <60 mL/min/1.73sq m Kidney failure: <15 mL/min/1.73sq m eGFR calculated using average adult body mass. Additional eGFR calculator available at: http://www.[employer]/multiple_crcl_2012.htm Performed By: #### C DP, BMP #### [facility] [place] [address] Property Portfolio Officer: Victor Manuel Hunter DO Anion gap [Moles/Vol] 11 mmol/L Normal 9-17 [facility] Comment on above: Performed By: #### C FARAZ, BMP #### [facility] [address] [place] [address] Property Portfolio Officer: Victor Manuel Hunter DO Calcium [Mass/Vol] 9.7 mg/dL Normal 8.6-10.4 [facility] Comment on above: Performed By: #### C FARAZ, BMP #### [facility] [place] [address] Property Portfolio Officer: Victor Manuel Hunter DO Chloride [Moles/Vol] 102 mmol/L Normal 98-107 [facility] Comment on above: Performed By: #### C FARAZ, BMP #### [facility] [address] [place] [address]. [place] [address] Property Portfolio Officer: Victor Manuel Hunter DO CO2 [Moles/Vol] 26 mmol/L Normal 20-31 [facility] Comment on above: Performed By: #### C DP, BMP #### [facility] [place] [address] Property Portfolio Officer: Victor Manuel Hunter DO Creatinine [Mass/Vol] 0.49 mg/dL Low 0.50-0.90 [facility] Comment on above: Performed By: #### C DP, BMP #### [facility] [address] [place] [place] [address] Property Portfolio Officer: Victor Manuel Hunter DO GFR, Amer >60 Normal >60 [facility] Comment on above: Performed By: #### C DP, BMP #### [facility] [address] [place] [place] [address] Property Portfolio Officer: Victor Manuel Hunter DO GFR,non Amer >60 Normal >60 [facility] Comment on above: Performed By: #### C DP, BMP #### [facility] [address] [place] [place] [address] Property Portfolio Officer: Victor Manuel Hunter DO Glucose [Mass/Vol] 88 mg/dL Normal 70-99 [facility] Comment on above: Performed By: #### C DP, BMP #### [facility] [place] [address] Property Portfolio Officer: Victor Manuel Hunter DO Potassium [Moles/Vol] 4.3 mmol/L Normal 3.7-5.3 [facility] Comment on above: Performed By: #### C DP, BMP #### [facility] [place] [address] Property Portfolio Officer: Victor Manuel Hunter DO Sodium [Moles/Vol] 139 mmol/L Normal 135-144 [facility] Comment on above: Performed By: #### C DP, BMP #### [facility] [address] [place] [place] [address] Property Portfolio Officer: Victor Manuel Hunter DO Urea nitrogen [Mass/Vol] 8 mg/dL Normal 6-20 [facility] Comment on above: Performed By: #### C DP, BMP #### [facility] [address] [place] [address] Property Portfolio Officer: Victor Manuel Hunter DO BUN/CRE Ratio NOT REPORTED Normal 9-20 [facility] Comment on above: Performed By: #### C FARAZ, BMP #### [facility] [address] [place] [address] Property Portfolio Officer: Victor Manuel Hunter DO Staging: NOT REPORTED Normal [facility] Comment on above: Performed By: #### C FARAZ, BMP #### [facility] [address] [place] [address] Property Portfolio Officer: Victor Manuel Hunter DO CBC with Diffon 11-10-2018 Abs. Basophil 0.00 k/uL Normal 0.0-0.2 [facility] Comment on above: Performed By: #### C DP, BMP #### [facility] [address] [place] [address] Property Portfolio Officer: Victor Manuel Hunter DO Abs.Neutrophil (Seg) 3.00 k/uL Normal 1.3-9.1 [facility] Comment on above: Performed By: #### C FARAZ, BMP #### [facility] [address] [place] [address]384 Property Portfolio Officer: Victor Manuel Hunter DO Basophils/100 WBC (Bld) 0 % Normal 0-2 [facility] Comment on above: Performed By: #### C FARAZ, BMP #### [facility] [address] [place] [address] 17617 Property Portfolio Officer: Victor Manuel Hunter DO Eosinophils (Bld) [#/Vol] 0.10 10*3/uL Normal 0.0-0.4 [facility] Comment on above: Performed By: #### C DP, BMP #### [facility] [address] [place] [address] [phone] Property Portfolio Officer: Victor Manuel Hunter DO Eosinophils/100 WBC (Bld) 1 % Normal 0-4 [facility] Comment on above: Performed By: #### C DP, BMP #### [facility] [address] [place] [address] 13403 Property Portfolio Officer: Victor Manuel Hunter DO Erythrocyte distribution width (RBC) [Ratio] 12.7 % Normal 11.5-14.9 [facility] Comment on above: Performed By: #### C DP, BMP #### [facility] [address] [place] [address] 95700 Property Portfolio Officer: Victor Manuel Hunter DO Hematocrit (Bld) [Volume fraction] 42.3 % Normal 36-46 [facility] Comment on above: Performed By: #### C DP, BMP #### [facility] [address] [place] [address] 23301 Property Portfolio Officer: Victor Manuel Hunter DO Hemoglobin (Bld) [Mass/Vol] 14.3 g/dL Normal 12.0-16.0 [facility] Comment on above: Performed By: #### C FARAZ, BMP #### [facility] [address] [place] [address] 97004 Property Portfolio Officer: Victor Manuel Hunter DO Lymphocytes (Bld) [#/Vol] 1.70 10*3/uL Normal 1.0-4.8 [facility] Comment on above: Performed By: #### C DP, BMP #### [facility] [address] [place] [address] 61888 Property Portfolio Officer: Victor Manuel Hunter DO Lymphocytes/100 WBC (Bld) 32 % Normal 24-44 [facility] Comment on above: Performed By: #### C DP, BMP #### [facility] [address] [place] [address] 38187 Property Portfolio Officer: Victor Manuel Hunter DO MCH (RBC) [Entitic mass] 30.0 pg Normal 26-34 [facility] Comment on above: Performed By: #### C DP, BMP #### [facility] [place] [address] Property Portfolio Officer: Victor Manuel Hunter DO MCHC (RBC) [Mass/Vol] 33.7 g/dL Normal 31-37 [facility] Comment on above: Performed By: #### C DP, BMP #### [facility] [address] [place] [address] 33879 Property Portfolio Officer: Victor Manuel Hunter DO MCV (RBC) [Entitic vol] 89.0 fL Normal 80-100 [facility] Comment on above: Performed By: #### C DP, BMP #### [facility] [address] [place] [address] 43076 Property Portfolio Officer: Victor Manuel Hunter DO Monocytes (Bld) [#/Vol] 0.60 10*3/uL Normal 0.1-1.3 [facility] Comment on above: Performed By: #### C FARAZ, BMP #### [facility] [address] [place] [address] 48173 Property Portfolio Officer: Victor Manuel Hunter DO Monocytes/100 WBC (Bld) 11 % High 1-7 [facility] Comment on above: Performed By: #### C DP, BMP #### [facility] [address] [place] [address] 26422 Property Portfolio Officer: Victor Manuel Hunter DO Neutrophil (Seg) 56 % Normal 36-66 [facility] Comment on above: Performed By: #### C DP, BMP #### [facility] [address] [place] [address] 06519 Property Portfolio Officer: Victor Manuel Hunter DO Platelet mean volume (Bld) [Entitic vol] 9.4 fL Normal 6.0-12.0 [facility] Comment on above: Performed By: #### C DP, BMP #### [facility] [place] [address] Property Portfolio Officer: Victor Manuel Hunter DO Platelets (Bld) [#/Vol] 252 10*3/uL Normal 150-450 [facility] Comment on above: Performed By: #### C DP, BMP #### [facility] [address] [place] [address] Property Portfolio Officer: Victor Manuel Hunter DO RBC (Bld) [#/Vol] 4.75 10*6/uL Normal 4.0-5.2 [facility] Comment on above: Performed By: #### C DP, BMP #### [facility] [address] [place] [address] 78348 Property Portfolio Officer: Victor Manuel Hunter DO WBC (Bld) [#/Vol] 5.3 10*3/uL Normal 3.5-11.0 [facility] Comment on above: Performed By: #### C FARAZ, BMP #### [facility] [address] [place] [address] 44730 Property Portfolio Officer: Victor Manuel Hunter DO Abs.Imm.Granulocyte NOT REPORTED Normal 0.00-0.30 [facility] Comment on above: Performed By: #### C FARAZ, BMP #### [facility] [address] [place] [address] 06670 Property Portfolio Officer: Victor Manuel Hunter DO Auto Diff Performed NOT REPORTED Normal [facility] Comment on above: Performed By: #### C DP, BMP #### [facility] [address] [place] [address] 19348 Property Portfolio Officer: Victor Manuel Hunter DO Immature granulocytes (Bld) [#/Vol] NOT REPORTED Normal 0 [facility] Comment on above: Performed By: #### C DP, BMP #### [facility] [address] [facility] [place] [address] Property Portfolio Officer: Victor Manuel Hunter DO NRBC Automated NOT REPORTED Normal [facility] Comment on above: Performed By: #### C DP, BMP #### [facility] [place] [address] Property Portfolio Officer: Victor Manuel Hunter DO Platelets (Bld) [#/Vol] NOT REPORTED Normal [facility] Comment on above: Performed By: #### C DP, BMP #### [facility] [place] [address] Property Portfolio Officer: Victor Manuel Hunter DO RBC morphology finding Nom (Bld) NOT REPORTED Normal [facility] Comment on above: Performed By: #### C DP, BMP #### [facility] [address] [place] [address] 56754 Property Portfolio Officer: Victor Manuel Hunter DO WBC Morphology NOT REPORTED Normal [facility] Comment on above: Performed By: #### C DP, BMP #### [facility] [address] [place] [address] 75852 Property Portfolio Officer: Victor Manuel Hunter DO Vital Signs Date Time Vital Sign Value Performing Clinician Facility 05-03-2024 16:38-0500 Body height 162.6 cm Tori Pichardo [employer] REPAIRER Work Phone: [facility] 05-03-2024 16:38-0500 Body mass index (BMI) [Ratio] 32.3 kg/m2 Tori Pichardo [employer] REPAIRER Work Phone: [facility] 05-03-2024 16:38-0500 Body temperature 97.59 [degF] Tori Pichardo [employer] REPAIRER Work Phone: [facility] 05-03-2024 16:38-0500 Body weight 85.37 kg Tori Pichardo [employer] REPAIRER Work Phone: [facility] 05-03-2024 16:38-0500 Diastolic blood pressure 72 mm[Hg] Tori Pichardo [employer] REPAIRER Work Phone: [facility] 05-03-2024 16:38-0500 Heart rate 93 /min Tori Pichardo [employer] REPAIRER Work Phone: [facility] 05-03-2024 16:38-0500 SaO2% (BldA) [Mass fraction] 99 % Tori Pichardo [employer] REPAIRER Work Phone: [facility] 05-03-2024 16:38-0500 Systolic blood pressure 124 mm[Hg] Tori Pichardo [employer] REPAIRER Work Phone: [facility] 04-21-2024 08:49-0500 Body mass index (BMI) [Ratio] 32.06 kg/m2 Herber Nnamdi DO Work Phone: [facility] 04-21-2024 08:49-0500 Body weight 84.73 kg Herber Nnamdi DO Work Phone: [facility] 04-21-2024 08:49-0500 Diastolic blood pressure 72 mm[Hg] Herber Nnamdi DO Work Phone: [facility] 04-21-2024 08:49-0500 Systolic blood pressure 104 mm[Hg] Herber Nnamdi DO Work Phone: [facility] 04-13-2024 15:58-0500 Body mass index (BMI) [Ratio] 31.78 kg/m2 Tori Pepe PA Work Phone: [facility] 04-13-2024 15:58-0500 Body weight 83.97 kg Tori Pepe PA Work Phone: [facility] 04-13-2024 15:58-0500 Diastolic blood pressure 80 mm[Hg] Tori Pepe PA Work Phone: [facility] 04-13-2024 15:58-0500 Systolic blood pressure 120 mm[Hg] Tori Pepe PA Work Phone: [facility] 04-06-2024 16:29-0500 Body mass index (BMI) [Ratio] 31.65 kg/m2 Tori Pepe PA Work Phone: [facility] 04-06-2024 16:29-0500 Body weight 83.64 kg Tori Dos Rios PA Work Phone: [facility] 04-06-2024 16:29-0500 Diastolic blood pressure 74 mm[Hg] Tori Dwight PA Work Phone: [facility] 04-06-2024 16:29-0500 Systolic blood pressure 112 mm[Hg] Tori Dwight PA Work Phone: [facility] 03-09-2024 16:25-0500 Body mass index (BMI) [Ratio] 30.88 kg/m2 Tori Dwight PA Work Phone: [facility] 03-09-2024 16:25-0500 Body weight 81.6 kg Tori Dwight PA Work Phone: [facility] 03-09-2024 16:25-0500 Diastolic blood pressure 70 mm[Hg] Tori Dwight PA Work Phone: [facility] 03-09-2024 16:25-0500 Systolic blood pressure 114 mm[Hg] Tori Dos Rios PA Work Phone: [facility] 02-10-2024 14:44-0400 Body mass index (BMI) [Ratio] 29.39 kg/m2 Herber Nnamdi DO Work Phone: [facility] 02-10-2024 14:44-0400 Body weight 77.68 kg Herber Nnamdi DO Work Phone: [facility] 02-10-2024 14:44-0400 Diastolic blood pressure 68 mm[Hg] Herber Nnmadi DO Work Phone: [facility] 02-10-2024 14:44-0400 Systolic blood pressure 116 mm[Hg] Herber Nnamdi DO Work Phone: [facility] 01-11-2024 16:03-0400 Body mass index (BMI) [Ratio] 28.06 kg/m2 Herber Nnamdi DO Work Phone: [facility] 01-11-2024 16:03-0400 Body weight 74.16 kg Herber Nnamdi DO Work Phone: [facility] 01-11-2024 16:03-0400 Diastolic blood pressure 72 mm[Hg] Herber Nnamdi DO Work Phone: [facility] 01-11-2024 16:03-0400 Systolic blood pressure 118 mm[Hg] Herber Nnamdi DO Work Phone: [facility] 01-29-2022 02:06-0400 Body weight 67.[address] ZEN BREWER . [facility] Comment on above: Performed By: #### [id number] #### [facility] [address] [address] [address] Garland Kohli Encounters Encounter Date Encounter Type Care Provider Facility Start: 05-03-2024 End: 05-03-2024 Office outpatient visit 25 minutes Tori Pichardo [employer] REPAIRER Work Phone: [facility] Comment on above: Need for follow-up c are after discharge (Primary Dx) Start: 05-03-2024 End: 05-03-2024 Bamboo flowsheet Tori Pichardo [employer] REPAIRER Work Phone: [facility] Start: 05-03-2024 End: 05-03-2024 Bamboo flowsheet Tori Pichardo [employer] REPAIRER Work Phone: [facility] Start: 04-21-2024 End: 04-21-2024 Bamboo flowsheet Herber Nnamdi DO Work Phone: [facility] Start: 04-21-2024 End: 04-21-2024 Bamboo flowsheet Herber Nnamdi DO Work Phone: [facility] Start: 04-21-2024 End: 04-21-2024 ambulatory HERBER NNAMDI Not Available Start: 04-21-2024 End: 04-21-2024 flow sheet Herber Nnamdi DO Work Phone: [facility] Comment on above: 30 weeks gestation o f ; Third trimester Start: 04-13-2024 End: 04-13-2024 flow sheet Tori SHIRLEY Work Phone: [facility] Comment on above: 28 weeks gestation o f ; Second trimester ; Gestational diabetes mellitus (GDM), antepartum, gestational diabetes method of control unspecified; Anxiety, generalized (CMS/HCC); Nausea; Hypothyroidism, unspecified type (CMS/HCC) Start: 04-13-2024 End: 04-13-2024 ambulatory TORI PEPE Not Available Start: 04-13-2024 End: 04-13-2024 Bamboo flowsheet Tori Pepe PA Work Phone: [facility] Start: 04-13-2024 End: 04-13-2024 Bamboo flowsheet Tori Pepe PA Work Phone: [facility] Start: 04-06-2024 End: 04-06-2024 ambulatory TORI PEPE Not Available Start: 04-06-2024 End: 04-06-2024 flow sheet Tori SHIRLEY Work Phone: [facility] Comment on above: Second trimester pre gnancy; 27 weeks gestation of Start: 04-06-2024 End: 04-06-2024 Bamboo flowsheet Tori SHIRLEY Work Phone: [facility] Start: 04-06-2024 End: 04-06-2024 Bamboo flowsheet Tori SHIRLEY Work Phone: [facility] Start: 03-19-2024 End: 03-19-2024 Clinisync Result Encounter Tori SHIRLEY Work Phone: [facility] External Department Unsolicited Start: 03-19-2024 End: 03-19-2024 Clinisync Result Encounter Tori SHIRLEY Work Phone: [facility] External Department Unsolicited Start: 03-09-2024 End: 03-09-2024 ambulatory TORI PEPE Not Available Start: 03-09-2024 End: 03-09-2024 flow sheet Tori SHIRLEY Work Phone: [facility] Comment on above: Encounter for follow -up ultrasound of anatomy; Second trimester ; 23 weeks gestation of ; Hypothyroidism, unspecified type (CMS/HCC); Diabetes mellitus screening; Anxiety, generalized (CMS/HCC) Start: 03-09-2024 End: 03-09-2024 Bamboo flowsheet Tori SHIRLEY Work Phone: [facility] Start: 03-09-2024 End: 03-09-2024 Bamboo flowsheet Tori SHIRLEY Work Phone: [facility] Start: 02-10-2024 End: 02-10-2024 ambulatory HERBER NNAMDI Not Available Start: 02-10-2024 End: 02-10-2024 Bamboo flowsheet Herber Nnamdi DO Work Phone: [facility] Start: 02-10-2024 End: 02-17-2024 Bamboo flowsheet Herber Nnamdi DO Work Phone: [facility] Start: 02-10-2024 End: 02-17-2024 Clinisync Result Encounter Generic External Data Provider [facility] External Department Unsolicited Start: 02-10-2024 End: 02-10-2024 Patient encounter procedure Herbre Nnamdi DO Work Phone: [facility] Start: 02-10-2024 End: 02-10-2024 Periodic preventive med est patient 18-39 yrs Herber Nnamdi DO Work Phone: [facility] Comment on above: Well [...] flow sheet Herber Nnamdi DO Work Phone: [facility] Comment on above: Second trimester [...] procedure MD Carlos Alberto Coleman Work Phone: [facility] Start: 07-13-2023 End: 07-13-2023 ambulatory MD Carlos Alberto Coleman Work Phone: [facility] Work Phone: Start: 07-13-2023 End: 07-13-2023 ambulatory SOFIE R LAUSE Not Available Start: 06-02-2023 Refill Tori Pichardo [employer] REPAIRER Work Phone: [facility] Comment on above: Attention deficit hy peractivity disorder (ADHD), combined type ([facility]) Start: 07-04-2022 End: 07-14-2022 ambulatory ÁNGEL KIEPERT Facility:[facility] Start: 07-01-2022 End: 07-01-2022 ambulatory ÁNGEL KIEPERT Facility:[facility] Start: 06-23-2022 End: 06-25-2022 Evaluation and [...] without abnormal findings DR ZEN BREWER . [facility] Start: 01-17-2022 End: 01-17-[address] ZEN BREWER . Facility:[facility] Start: 01-17-2022 End: 01-17-2022 Encounter for gynecological examination (general) (routine) without abnormal findings DR ZEN BREWER . Facility:[facility] Start: 01-04-2022 End: 01-05-2022 ambulatory ÁNGEL SINHA Facility:[facility] Start: 12-14-2021 End: 12-15-[address] ZEN BREWER . Facility:[facility] Start: 11-26-2021 End: 11-27-2021 ambulatory ÁNGEL SINHA Facility:[facility] Start: 11-24-2018 End: 11-24-2018 Patient encounter procedure [facility] Start: 11-10-2018 End: 11-15-2018 Patient encounter procedure [facility] Procedures Date Procedure Procedure Detail Performing Clinician Start: 04-21-2024 Urnls dip stick/tabl et rgnt non-auto w/o micrscp Herber Nnamdi DO Work Phone: Start: 04-13-2024 Urnls dip stick/tabl et rgnt non-auto w/o micrscp Tori SHIRLEY Work Phone: Start: 04-06-2024 Urnls dip stick/tabl et rgnt non-auto w/o micrscp Herber Nnamdi DO Work Phone: Start: 03-19-2024 ALL CBC WITH AUTO DIFF Generic External Data Provider Start: 02-10-2024 Urnls dip stick/tabl et rgnt non-auto w/o micrscp [facility] DO Work Phone: Start: 02-10-2024 IGP,APTIMA HPV,AGE GDLN [facility] DO Work Phone: Start: 02-10-2024 Microscopic observat ion [Identifier] in Cervix by Cyto stain Tori SHIRLEY Work Phone: Start: 02-10-2024 Cytp cerv/vag auto t hin layer prep mnl screen Tori SHIRLEY Work Phone: Start: 01-22-2024 ALL THYROID STIM HORMONE [facility] DO Work Phone: Start: 01-11-2024 Urnls dip stick/tabl et rgnt non-auto w/o micrscp [facility] DO Work Phone: Start: 07-13-2023 Respiratory [...] MODE RENEE Start: 11-24-2018 DISCHARGE PATIENT NORMA H THELMA Start: 11-24-2018 BEDREST MODE ESPINO Start: 11-24-2018 Continuous pulse oximetry MDOE RENEE Start: 11-24-2018 ENCOURAGE DEEP BREAT MARIANNA [...] Screening for malign ant neoplasm of cervix [facility] Start: 2024 Influenza vaccination Influenza Vacc ine (#1) [facility] Comment on above: Postponed from 12/26 (Patient Refused) Start: 05-09-2024 End: 05-09-2024 Patient encounter procedure 05/09/2024 3:50 PM EST Routine [facility] [address] [place] [address] Tori Pepe, PA [address] [place] [address] [facility] Start: 05-03-2024 End: 05-03-2024 Patient encounter procedure 05/03/2024 4:40 PM EST Office Visit [facility] [address] [place] [id number] Tori Pichardo, [employer] REPAIRER [address] [place] [address] Need for follow-up care after discharge (Primary Dx) [facility] Comment on above: Need for follow-up c are after discharge (Primary Dx) Start: 04-21-2024 End: 04-21-2024 Patient encounter procedure 04/21/2024 8:30 AM EST Routine [facility] [address] [place] [address] Herber Coto DO [address] [place] [address] [facility] Start: 04-13-2024 End: 04-13-2024 [...] PM EST Routine [facility] [address] [place] [id number] Tori Pepe PA [address] [place], [place] [address] [place] [address] [facility] Start: 04-03-2024 End: 03-04-2025 US for US OB INCOMPLETE ANATOMY Imaging Routine Encounter for follow-up ultrasound of anatomy Expected: 04/03/2024 (Approximate), Expires: 03/04/2025 [facility] Work Phone: Comment on above: Expected: 04/03/2024 (Approximate), Expires: 03/04/2025 Start: 03-09-2024 End: 03-09-2024 Patient encounter procedure 03/09/2024 3:50 PM EST Routine [facility] [address] [place] [phone] Tori Pepe PA [address] [place] [address] [facility] Start: 03-09-2024 End: 03-09-2025 CBC panel - Blood by Automated count CBC Lab Routine Diabetes mellitus screening Expected: 03/09/2024 (Approximate), Expires: 03/09/2025 [facility] Comment on above: Expected: 03/09/2024 (Approximate), Expires: 03/09/2025 Start: 03-09-2024 End: 03-09-2025 Measurement of glucose 1 hour after glucose challenge for glucose tolerance test Glucose tolerance, 1 hour Lab Routine Diabetes mellitus screening Expected: 03/09/2024 (Approximate), Expires: 03/09/2025 [facility] Comment on above: Expected: 03/09/2024 (Approximate), Expires: 03/09/2025 Start: 03-09-2024 End: 03-09-2025 US for US OB SCAN FOR GROWTH Imaging Routine Hypothyroidism, unspecified type (CMS/HCC) Expected: 03/09/2024 (Approximate), Expires: 03/09/2025 [facility] Comment on above: Expected: 03/09/2024 (Approximate), Expires: 03/09/2025 Start: 02-10-2024 End: 02-09-2025 Alpha fetoprotein, maternal Alpha fetoprotein, maternal Lab Routine Second trimester 19 weeks gestation of Expected: 02/10/2024 (Approximate), Expires: 02/09/2025 [facility] Comment on above: Expected: 02/10/2024 (Approximate), Expires: 02/09/2025 Start: 02-10-2024 End: 02-09-2025 US for US OB ANATOMY SINGLE W US OB CERVICAL LENGTH Imaging Routine Screening, , for anatomic survey Expected: 02/10/2024 (Approximate), Expires: 02/09/2025 [facility] Comment on above: Expected: 02/10/2024 (Approximate), Expires: 02/09/2025 Start: 02-10-2024 End: 02-10-2024 Patient encounter procedure 02/10/2024 1:50 PM EDT Routine [facility] [address] [place] [phone] Herber Coto, [address] [place] [address] [facility] Start: 01-11-2024 End: 01-11-2024 Patient encounter procedure 01/11/2024 3:50 PM EDT Routine [facility] [address] [place] [phone] Herber Coto DO [address] [place] [address] Arrived [facility] Comment on above: Arrived Start: 12-27-2023 Influenza vaccination Influenza Vacc ine (#1) [facility] Start: 10-25-2023 Influenza vaccination Influenza Vacc ine (#1) [facility] Comment on above: Postponed from 12/26 (Patient Refused) Start: 10-25-2023 Screening for malign ant neoplasm of cervix [facility] Start: 07-17-2023 End: 07-17-2023 Patient encounter procedure 07/17/2023 8:00 AM EDT Office Visit [facility] [address] [place] [address] Tori Pichardo, HERRERA [address] [place] [address] [facility] Start: 2014 Screening for malign ant neoplasm of cervix Pap Smear [facility] CHLAMYDIA TRACHOMATI S (GENITO/STI) CHLAMYDIA TRACHOMATIS (GENITO/STI) Lab Routine Screen for STD (sexually transmitted disease) Vaginal discharge Ordered: 02/10/2024 [facility] Comment on above: Ordered: 02/10/2024 Cytology Cervical or vaginal smear or scraping study Pap Smear Pathology and Cytology Routine Well woman exam with routine gynecological exam Ordered: 02/10/2024 [facility] Comment on above: Ordered: 02/10/2024 Human papilloma viru s DNA [Presence] in Unspecified specimen by Probe with amplification HPV DNA probe, amplified Microbiology Routine Well woman exam with routine gynecological exam Ordered: 02/10/2024 [facility] Comment on above: Ordered: 02/10/2024 Neisseria gonorrhoea e DNA [Presence] in Unspecified specimen by JUAN with probe detection Neisseria gonorrhea DNA probe, direct Lab Routine Screen for STD (sexually transmitted disease) Vaginal discharge Ordered: 02/10/2024 [facility] Comment on above: Ordered: 02/10/2024 SURESWAB(R) ADVANCED VAGINITIS PLUS, TMA SURESWAB(R) ADVANCED VAGINITIS PLUS, TMA Pathology and Cytology Routine Screen for STD (sexually transmitted disease) Vaginal discharge Ordered: 02/10/2024 [facility] Work Phone: Comment on above: Ordered: 02/10/2024 Thyrotropin [Units/volume] in Serum or Plasma TSH Lab Routine Other specified hypothyroidism (CMS/HCC) Ordered: 01/11/2024 [facility] Work Phone: Comment on above: Ordered: 01/11/2024 Thyrotropin [Units/volume] in Serum or Plasma TSH Lab Routine Hypothyroidism, unspecified type (CMS/HCC) Ordered: 04/13/2024 [facility] Comment on above: Ordered: 04/13/2024 Immunizations Immunization Date Immunization Notes Care Provider Byron carlson 05-05-2015 tetanus toxoid, redu catherine diphtheria toxoid, and acellular pertussis vaccine, adsorbed Tori Warchol [employer] REPAIRER Work Phone: [facility] 02-14-2009 influenza, seasonal, injectable Tori Warchol [employer] REPAIRER Work Phone: [facility] 02-14-2009 influenza virus vacc ine, unspecified formulation Tori Warchol [employer] C[employer] REPAIRER Work Phone: [facility] 12-12-2005 hepatitis A vaccine, unspecified formulation Tori Warchol [employer] C[employer] REPAIRER Work Phone: [facility] 12-12-2005 tetanus toxoid, redu catherine diphtheria toxoid, and acellular pertussis vaccine, adsorbed Tori Warchol [employer] C[employer] REPAIRER Work Phone: [facility] 11-19-1998 diphtheria, tetanus toxoids and acellular pertussis vaccine, unspecified formulation Tori Warchol [employer] Work Phone: [facility] 11-19-1998 measles, mumps and rubella virus vaccine Tori Warchol [employer] RE[employer] Work Phone: [facility] 11-19-1998 trivalent poliovirus vaccine, live, oral Tori Warchol [employer] RE[employer] Work Phone: [facility] 09-14-1995 diphtheria, tetanus toxoids and acellular pertussis vaccine, unspecified formulation Tori Warchol [employer] REPA[employer]ER Work Phone: [facility] 09-14-1995 haemophilus influenz ae type b vaccine, conjugate unspecified formulation Tori Warchol [employer] REPA[employer] Work Phone: [facility] 11-20-1994 DTP-Haemophilus influenzae type b conjugate vaccine Tori Warchol [employer] REPA[employer]ER Work Phone: [facility] 11-20-1994 hepatitis B vaccine, pediatric or pediatric/adolescent dosage Tori Warchol [employer] RE[employer] Work Phone: [facility] 11-20-1994 measles, mumps and rubella virus vaccine Tori Warchol [employer] REPA[employer]ER Work Phone: [facility] 11-20-1994 trivalent poliovirus vaccine, live, oral Tori Warchol [employer] REPA[employer]ER Work Phone: [facility] 09-18-1994 DTP-Haemophilus influenzae type b conjugate vaccine Tori Warchol [employer] RE[employer] Work Phone: [facility] 09-18-1994 hepatitis B vaccine, pediatric or pediatric/adolescent dosage Tori Warchol [employer] RE[employer] Work Phone: [facility] 09-18-1994 trivalent poliovirus vaccine, live, oral Tori Warchol [employer] REPA[employer]ER Work Phone: [facility] 1993 diphtheria, tetanus toxoids and pertussis vaccine Tori Warchol [employer] REPA[employer] Work Phone: [facility] 1993 haemophilus influenz ae type b vaccine, conjugate unspecified formulation Tori Warchol [employer] REPA[employer] Work Phone: [facility] 1993 hepatitis B vaccine, pediatric or pediatric/adolescent dosage Tori Warchol [employer] REPA[employer] Work Phone: [facility] 1993 trivalent poliovirus vaccine, live, oral Tori Warchol [employer]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 2022 Blue Cross Blue Shield [id number] 2022 Unknown BCBS BCBS xxxxxx [id number] 2022-Present [phone] [address] [place] [address] [id number] 2017 Private Health Insurance [id number] 1993 Unknown [id number] 2.16.840.1.970637.3.579.2.1 76 1993 Unknown [id number] 2.16.840.1.290335.3.579.2.1 76 1993 Unknown [id number] 2.16.840.1.343073.3.579.2.5 93 1993 Unknown [id number] 2.16.840.1.378339.3.579.2.5 93 1993 Unknown [id number] 2.16.840.1.213162.3.579.2.5 93 1993 Unknown [id number] 2.16.840.1.680482.3.579.2.5 93 1993 Unknown [id number] 2.16.840.1.096681.3.579.2.5 93 1993 Unknown [id number] 2.16.840.1.560396.3.579.2.5 93 1993 Unknown [id number] 2.16.840.1.980275.3.579.2.5 93 1993 Unknown [id number] 2.16.840.1.387887.3.579.2.5 93 1993 Unknown [id number] 2.16.840.1.921962.3.579.2.5 93 1993 Unknown [id number] 2.16.840.1.408813.3.579.2.5 93 1993 Unknown [id number] 2.16.840.1.638950.3.579.2.5 93 1993 Unknown [id number] 2.16.840.1.885969.3.579.2.5 93 1993 Unknown [id number] 2.16.840.1.996239.3.579.2.5 93 1993 Unknown [id number] 2.16.840.1.637951.3.579.2.5 93 1993 Unknown [id number] 2.16.840.1.263265.3.579.2.1 259 1993 Unknown [id number] 2.16.840.1.210929.3.579.2.1 259 1993 Unknown [id number] 2.16.840.1.271616.3.579.2.1 259 1993 Unknown [id number] 2.16.840.1.272658.3.579.2.1 259 1993 Unknown [id number] 2.16.840.1.833488.3.579.2.1 259 1993 Unknown [id number] 2.16.840.1.140625.3.579.2.1 259 1993 Unknown [id number] 2.16.840.1.536090.3.579.2.1 259 1993 Unknown [id number] 2.16.840.1.086046.3.579.2.1 259 1993 Unknown [id number] 2.16.840.1.322608.3.579.2.1 259 1993 Unknown [id number] 2.16.840.1.658676.3.579.2.1 259 1959 Self-pay [id number] 1959 Unknown [id number] 1959 Unknown [id number] 1959 Unknown [id number] Unknown [id number] 2.16.840.1.391538.3.579.2.5 93 Unknown HCAP/HFA/FAP Active [id number] Unknown [id number] 2.16.840.1.375698.3.579.2.5 31 Social History Date Type Detail Facility Start: 08-27-2016 End: 09-25-2022 Tobacco smoking status WAIS Never smoked tobacco [facility] care Start: 09-25-2022 Tobacco use and exposure Smoke less tobacco non-user [facility] Start: 04-16-2023 End: 04-13-2024 Alcohol intake Current drinker of alcohol (finding) [facility] Start: 04-16-2023 End: 05-03-2024 Alcohol intake [facility] Start: 01-15-2023 End: 05-03-2024 Alcohol Use Disorder Identification Test - Consumption [AUDIT-C] [facility] How often to you hav e a drink containing alcohol? Monthly or less [facility] How many standard dr inks containing alcohol do you have on a typical day? Patient does not drink [facility] How often do you hav e 6 or more drinks on 1 occasion? Never [facility] Start: 1995 Sex Assigned At Female [facility] Start: 09-24-2022 Gender identity Identifies as female gender (finding) [facility] Start: 10-08-2023 [facility] Start: 05-03-2024 Alcoholic beverage intake Ex-drinker (finding) [facility] Medical Equipment Procedure Code Equipment Code Equipment Origin al Text Equipment Identifier Dates 1 strip by In Vi tro route Daily Use in the morning prior to breakfast, 1 hour after each meal for a total of 4times daily. [id number] Start: 03-21-2024 End: 04-20-2024 1 each by In Vit ro route Daily Use to check FSBS four times daily [id number] Start: 03-21-2024 End: 04-20-2024 Clinical Notes 06-02-2023 to 05-03-2024 Tori Pichardo NP - 05/03/2024 4:40 PM ESTPatient Letty Azul LPN - 04/21/2024 8:30 AM FERN Chin - 04/13/2024 4:00 PM FERN Chin - 04/06/2024 3:20 PM EST Note Date & Type Note Facility 05-03-2024 History of Presen t illness Narrative SUBJECTIVE Cecelia Johnson is a 28 y.o. female who presents today for an ER follow-up. Patient is currently 32 weeks . Recent ER follow-up Patient was seen in the ED on 04/27/24 with complaints of sinus congestion and cough. Patient was diagnosed with an upper respiratory infection and was discharged on 04/27/24. She was given new prescriptions for Augmentin. Patient states she is still having some chest congestion and rhinorrhea. Discussed treating symptomatically. She states she will see her OBGYN in one week and will discuss with them if her symptoms are not improving. CURRENT MEDICATIONS Current Outpatient Medications: albuterol HFA 90 mcg/act inhaler, Inhale 2 puffs every 4 (four) hours if needed for shortness of breath or wheezing, Disp: 18 g, Rfl: 5 Alcohol Swabs (Alcohol Prep Pad) 70 % pads, Apply 1 Pad topically Daily Use four times daily to check FSBS., Disp: 150 each, Rfl: 3 Blood Glucose Monitoring Suppl ([employer] Glucometer) w/Device kit, 1 kit Daily Use four times daily to check FSBS. In the morning prior to breakfast & 1 hour after each meal for a total of 4times daily., Disp: 1 kit, Rfl: 0 citalopram (CeleXA) 10 MG tablet, Take 1 tablet (10 mg) by mouth Daily, Disp: 30 tablet, Rfl: 11 famotidine (Pepcid) 20 MG tablet, Take 1 tablet (20 mg) by mouth every 12 (twelve) hours, Disp: 180 tablet, Rfl: 1 fexofenadine (Tasha) 180 MG tablet, Take 180 mg by mouth in the morning., Disp: , Rfl: folic acid (Folvite) 1 MG tablet, Take 1 tablet (1 mg) by mouth Daily, Disp: 30 tablet, Rfl: 6 lactase 9000 units tablet, Take 9,000 Units by mouth., Disp: , Rfl: lansoprazole (Prevacid) [address] capsule, Take 1 capsule (30 mg) by mouth 1 (one) time each day at the same time, Disp: 90 capsule, Rfl: 1 levalbuterol (Xopenex) 45 MCG/ACT inhaler, Inhale 1 puff every 4 (four) hours if needed for wheezing, Disp: 15 g, Rfl: 5 levothyroxine (Synthroid, Levoxyl) 88 MCG tablet, Take 1 tablet (88 mcg) by mouth 1 (one) time each day at the same time, Disp: 90 tablet, Rfl: 1 Magnesium 400 MG capsule, Take 400 mg by mouth Daily, Disp: , Rfl: montelukast (Singulair) 10 MG tablet, Take 1 tablet (10 mg) by mouth at bedtime, Disp: 90 tablet, Rfl: 1 ondansetron (Zofran) 4 MG tablet, Take 1 tablet (4 mg) by mouth every 6 (six) hours if needed for nausea or vomiting for up to 30 doses Take 1 tablet by mouth every 6 hours as needed for nausea., Disp: 30 tablet, Rfl: 3 levalbuterol (Xopenex) 1.25 MG/3ML nebulizer solution, Take 1 ampule by nebulization every 6 (six) hours if needed for shortness of breath, Disp: 72 mL, Rfl: 1 loperamide (Imodium) 2 MG capsule, Take 2 mg by mouth. (Patient not taking: Reported on 05/03/2024), Disp: , Rfl: RECENT VITAL SIGNS 01/11/2024 4:03 PM 02/10/2024 2:44 PM 03/09/2024 4:25 PM 04/06/2024 4:29 PM 04/13/2024 3:58 PM 04/21/2024 8:49 AM 05/03/2024 4:38 PM Vitals BMI 28.06 kg/m2 29.39 kg/m2 30.88 kg/m2 31.65 kg/m2 31.78 kg/m2 32.06 kg/m2 32.3 kg/m2 BSA (m2) 1.83 m2 1.87 m2 1.92 m2 1.94 m2 1.95 m2 1.96 m2 1.96 m2 Systolic 118 116 114 112 120 104 124 Diastolic 72 68 70 74 80 72 72 Heart Rate 93 SpO2 99 % Temp 97.6 F Height (in) 5' 4 Weight (lb) 163.5 171.25 179.9 184.4 185.12 186.8 188.2 Visit Report Report RECENT LABS Recent Results (from the past 6 weeks) POCT urinalysis dipstick manually resulted Collection Time: 04/06/24 5:42 PM Result Value Ref Range Color, UA Yellow Clarity, UA Clear Glucose, UA Negative Negative - 2000(110) ++++ mg/dL Bilirubin, UA Negative Negative - 4(70) +++ mg/dL Ketones, UA Negative Negative - 160(16) ++++ mg/dL Spec Grav, UA 1.015 1 - 1.03 Blood, UA Negative Negative - 50 Mendel/mcL pH, UA 6.0 5 - 9 Protein, UA Negative Negative - 1999(20) ++++ mg/dL Urobilinogen, UA 0.2 0.2 - 12 mg/dL Leukocytes, UA Negative Negative - 500+++ Leighann/mcL Nitrite, UA Negative Negative - Positive POCT urinalysis dipstick manually resulted Collection Time: 04/13/24 4:10 PM Result Value Ref Range Color, UA Yellow Clarity, UA Clear Glucose, UA Negative Negative - 1999(110) ++++ mg/dL Bilirubin, UA Negative Negative - 4(70) +++ mg/dL Ketones, UA Negative Negative - 160(16) ++++ mg/dL Spec Grav, UA 1.030 1 - 1.03 Blood, UA Negative Negative - 50 Mendel/mcL pH, UA 5.5 5 - 9 Protein, UA Negative Negative - 1999(20) ++++ mg/dL Urobilinogen, UA 0.2 0.2 - 12 mg/dL Leukocytes, UA Negative Negative - 500+++ Elighann/mcL Nitrite, UA Negative Negative - Positive POCT urinalysis dipstick manually resulted Collection Time: 04/21/24 8:58 AM Result Value Ref Range Color, UA Light Yellow Clarity, UA Clear Glucose, UA Negative Negative - 2000(110) ++++ mg/dL Bilirubin, UA Negative Negative - 4(70) +++ mg/dL Ketones, UA Negative Negative - 160(16) ++++ mg/dL Spec Grav, UA 1.030 1 - 1.03 Blood, UA Negative Negative - 50 Mendel/mcL pH, UA 5.5 5 - 9 Protein, UA Trace Negative - 2000(20) ++++ mg/dL Urobilinogen, UA 0.2 0.2 - 12 mg/dL Leukocytes, UA Few Negative - 500+++ Leighann/mcL Nitrite, UA Negative Negative - Positive OBJECTIVE Physical Exam Vitals and nursing note reviewed. Constitutional: Appearance: Normal appearance. She is normal weight. HENT: Head: Normocephalic and atraumatic. Right Ear: Tympanic membrane, ear canal and external ear normal. Left Ear: Tympanic membrane, ear canal and external ear normal. Nose: Nose normal. Mouth/Throat: Mouth: Mucous membranes are moist. Eyes: Pupils: Pupils are equal, round, and reactive to light. Cardiovascular: Rate and Rhythm: Normal rate and regular rhythm. Pulses: Normal pulses. Heart sounds: Normal heart sounds. Pulmonary: Effort: Pulmonary effort is normal. Breath sounds: Normal breath sounds. Abdominal: General: Bowel sounds are normal. Palpations: Abdomen is soft. Musculoskeletal: General: Normal range of motion. Cervical back: Normal range of motion. Skin: General: Skin is warm and dry. Capillary Refill: Capillary refill takes less than 2 seconds. Neurological: General: No focal deficit present. Mental Status: She is alert and oriented to person, place, and time. Psychiatric: Mood and Affect: Mood normal. ASSESSMENT/PLAN Diagnoses and all orders for this visit: Need for follow-up care after discharge FOLLOW-UP Follow up in about 1 week (around 05/10/2024) for Recheck: if s/s do not improve . documented in this encounter [facility] 05-03-2024 Instructions Tori Pichardo NP - 05/03/2024 4:40 PM EST PATIENT EDUCATION: ER follow-up The patient was seen today in follow-up of recent hospital ER/UC visit. All available records/labs/diagnostics were reviewed and discussed with the patient. ER/UC discharge meds were reviewed. Any changes to plan are noted above. documented in this encounter [facility] 04-21-2024 History of Presen t illness Narrative [...] to check FSBS. Blood Glucose Monitoring Suppl ([employer] Glucometer) w/Device kit 1 kit, Does not [...] esophagitis 09/01/2022 Moderate persistent asthma without complication [place] 09/01/2022 Hypothyroidism, unspecified [place] 03/02/2020 Moderate asthma ([facility]) 01/11/2024 30 weeks gestation of 04/21/2024 Third trimester 04/21/2024 Resolved Ambulatory Problems Diagnosis Date Noted Acquired hypothyroidism ([facility]) 09/01/2022 Allergic rhinitis 09/01/2022 Amenorrhea 09/01/2022 Asthma without status asthmaticus ([facility] 09/01/2022 Attention deficit hyperactivity disorder ([facility] 09/01/2022 Asthma affecting , antepartum ([facility]) 09/01/2022 Binge eating disorder 09/01/2022 Difficulty concentrating 09/01/2022 Irregular menstrual cycle 09/01/2022 Left sided sciatica 09/01/2022 Insomnia 09/01/2022 Migraines ([facility]) 09/01/2022 Metallic taste 09/01/2022 Mild persistent asthma without complication ([facility]) 09/01/2022 MTHFR mutation 09/01/2022 Nondependent cannabis abuse 09/01/2022 Other chronic pain 09/01/2022 Seasonal allergies 09/01/2022 Skin sensation disturbance 09/01/2022 Transitory mood disturbance 09/01/2022 Verruca plantaris 09/01/2022 Past Medical History: Diagnosis Date Acid reflux ADHD (attention deficit hyperactivity disorder) ([facility]) Asthma ([facility]) GERD (gastroesophageal reflux disease) Hypothyroid ([facility] Lactose intolerance Marijuana use Migraine ([facility]) Mild persistent asthma, uncomplicated ([facility]) Supervision of normal Thyroid disease ([facility]) HISTORY PAST MEDICAL HISTORY SOCIAL HISTORY Past Medical History: Diagnosis Date Acid reflux ADHD (attention deficit hyperactivity disorder) ([facility]) Asthma ([facility]) Asthma affecting , antepartum ([facility]) GERD (gastroesophageal reflux disease) Hypothyroid ([facility]) Lactose intolerance Marijuana use Migraine ([facility]) Mild persistent asthma, uncomplicated ([facility] MTHFR mutation Seasonal allergies Supervision of normal Thyroid disease ([facility] Social History Tobacco Use Smoking status: Never [...] 2008 Plica band removal, left knee arthroscopy CT BREAST REDUCTION 10/2018 TONSILLECTOMY 1998 REVIEW OF [...] nursing note reviewed. Exam conducted with a professional services consultant present. Vitals: Estimated body mass index is [...] Herber Coto DO documented in this encounter [facility] 04-13-2024 History of Presen t illness Narrative [...] esophagitis 09/01/2022 Moderate persistent asthma without complication ([facility]) 09/01/2022 Hypothyroidism, unspecified ([facility]) 03/02/2020 Moderate asthma ([facility]) 01/11/2024 Resolved Ambulatory Problems Diagnosis Date Noted Acquired hypothyroidism ([facility]) 09/01/2022 Allergic rhinitis 09/01/2022 Amenorrhea 09/01/2022 Asthma without status asthmaticus ([facility]) 09/01/2022 Attention deficit hyperactivity disorder ([facility]) 09/01/2022 Asthma affecting , antepartum ([facility]) 09/01/2022 Binge eating disorder 09/01/2022 Difficulty concentrating 09/01/2022 Irregular menstrual cycle 09/01/2022 Left sided sciatica 09/01/2022 Insomnia 09/01/2022 Migraines ([facility]) 09/01/2022 Metallic taste 09/01/2022 Mild persistent asthma without complication ([facility]) 09/01/2022 MTHFR mutation 09/01/2022 Nondependent cannabis abuse 09/01/2022 Other chronic pain 09/01/2022 Seasonal allergies 09/01/2022 Skin sensation disturbance 09/01/2022 Transitory mood disturbance 09/01/2022 Verruca plantaris 09/01/2022 Past Medical History: Diagnosis Date Acid reflux ADHD (attention deficit hyperactivity disorder) ([facility]) Asthma ([facility]) GERD (gastroesophageal reflux disease) Hypothyroid ([facility]) Lactose intolerance Marijuana use Migraine ([facility]) Mild persistent asthma, uncomplicated ([facility]) Supervision of normal Thyroid disease ([facility]) HISTORY PAST MEDICAL HISTORY SOCIAL HISTORY Past Medical History: Diagnosis Date Acid reflux ADHD (attention deficit hyperactivity disorder) ([facility]) Asthma ([facility]) Asthma affecting , antepartum ([facility]) GERD (gastroesophageal reflux disease) Hypothyroid ([facility]) Lactose intolerance Marijuana use Migraine ([facility]) Mild persistent asthma, uncomplicated ([facility]) MTHFR mutation Seasonal allergies Supervision of normal Thyroid disease ([facility]) Social History Tobacco Use Smoking status: [...] 2008 Plica band removal, left knee arthroscopy CT BREAST REDUCTION 10/2018 TONSILLECTOMY 1998 REVIEW OF [...] of: FERN Luis documented in this encounter [facility] 04-06-2024 History of Presen t illness Narrative [...] esophagitis 09/01/2022 Moderate persistent asthma without complication [place] 09/01/2022 Hypothyroidism, unspecified ([facility] 03/02/2020 Moderate asthma ([facility]) 01/11/2024 Resolved Ambulatory Problems Diagnosis Date Noted Acquired hypothyroidism ([facility] 09/01/2022 Allergic rhinitis 09/01/2022 Amenorrhea 09/01/2022 Asthma without status asthmaticus ([facility] 09/01/2022 Attention deficit hyperactivity disorder ([facility]) 09/01/2022 Asthma affecting , antepartum ([facility] 09/01/2022 Binge eating disorder 09/01/2022 Difficulty concentrating 09/01/2022 Irregular menstrual cycle 09/01/2022 Left sided sciatica 09/01/2022 Insomnia 09/01/2022 Migraines ([facility]) 09/01/2022 Metallic taste 09/01/2022 Mild persistent asthma without complication ([facility]) 09/01/2022 MTHFR mutation 09/01/2022 Nondependent cannabis abuse 09/01/2022 Other chronic pain 09/01/2022 Seasonal allergies 09/01/2022 Skin sensation disturbance 09/01/2022 Transitory mood disturbance 09/01/2022 Verruca plantaris 09/01/2022 Past Medical History: Diagnosis Date Acid reflux ADHD (attention deficit hyperactivity disorder) ([facility] Asthma ([facility]) GERD (gastroesophageal reflux disease) Hypothyroid ([facility]) Lactose intolerance Marijuana use Migraine ([facility]) Mild persistent asthma, uncomplicated ([facility]) Supervision of normal Thyroid disease ([facility]) HISTORY PAST MEDICAL HISTORY SOCIAL HISTORY Past Medical History: Diagnosis Date Acid reflux ADHD (attention deficit hyperactivity disorder) ([facility]) Asthma ([facility]) Asthma affecting , antepartum ([facility]) GERD (gastroesophageal reflux disease) Hypothyroid ([facility]) Lactose intolerance Marijuana use Migraine ([facility]) Mild persistent asthma, uncomplicated ([facility]) MTHFR mutation Seasonal allergies Supervision of normal Thyroid disease ([facility]) Social History Tobacco Use Smoking status: [...] 2008 Plica band removal, left knee arthroscopy CT BREAST REDUCTION 10/2018 TONSILLECTOMY 1998 REVIEW OF [...] by FERN Luis on behalf of: FERN uLis documented in this encounter [facility] 03-09-2024 History of Presen t illness Narrative [...] esophagitis 09/01/2022 Moderate persistent asthma without complication [place] 09/01/2022 Hypothyroidism, unspecified [place] 03/02/2020 Moderate asthma ([facility]) 01/11/2024 Resolved Ambulatory Problems Diagnosis Date Noted Acquired hypothyroidism ([facility] 09/01/2022 Allergic rhinitis 09/01/2022 Amenorrhea 09/01/2022 Asthma without status asthmaticus ([facility]) 09/01/2022 Attention deficit hyperactivity disorder ([facility] 09/01/2022 Asthma affecting , antepartum ([facility]) 09/01/2022 Binge eating disorder 09/01/2022 Difficulty concentrating 09/01/2022 Irregular menstrual cycle 09/01/2022 Left sided sciatica 09/01/2022 Insomnia 09/01/2022 Migraines ([facility]) 09/01/2022 Metallic taste 09/01/2022 Mild persistent asthma without complication ([facility]) 09/01/2022 MTHFR mutation 09/01/2022 Nondependent cannabis abuse 09/01/2022 Other chronic pain 09/01/2022 Seasonal allergies 09/01/2022 Skin sensation disturbance 09/01/2022 Transitory mood disturbance 09/01/2022 Verruca plantaris 09/01/2022 Past Medical History: Diagnosis Date Acid reflux ADHD (attention deficit hyperactivity disorder) ([facility]) Asthma ([facility]) GERD (gastroesophageal reflux disease) Hypothyroid ([facility]) Lactose intolerance Marijuana use Migraine ([facility]) Mild persistent asthma, uncomplicated [facility] [facility]) Supervision of normal Thyroid disease ([facility]) HISTORY PAST MEDICAL HISTORY SOCIAL HISTORY Past Medical History: Diagnosis Date Acid reflux ADHD (attention deficit hyperactivity disorder) ([facility]) Asthma ([facility]) Asthma affecting , antepartum ([facility]) GERD (gastroesophageal reflux disease) Hypothyroid ([facility]) Lactose intolerance Marijuana use Migraine ([facility]) Mild persistent asthma, uncomplicated ([facility]) MTHFR mutation Seasonal allergies Supervision of normal Thyroid disease ([facility]) Social History Tobacco Use Smoking status: [...] 2008 Plica band removal, left knee arthroscopy CT BREAST REDUCTION 10/2018 TONSILLECTOMY 1998 REVIEW OF [...] of: FERN Luis documented in this encounter [facility] 03-09-2024 Miscellaneous Notes Addended by: NIALL CONSTANTINO on: 03/10/2024 09:01 AM Modules accepted: Orders documented in this encounter [facility] 03-09-2024 Note Addended by: NIALL CLEVELAND on: 03/10/2024 09:01 AM Modules accepted: Orders [facility] 03-09-2024 Note Addended by: NIALL CLEVELAND on: 03/10/2024 09:01 AM Modules accepted: Orders [facility] 02-10-2024 History of Presen [...] esophagitis 09/01/2022 Moderate persistent asthma without complication ([facility]) 09/01/2022 Hypothyroidism, unspecified ([facility]) 03/02/2020 Moderate asthma ([facility]) 01/11/2024 Resolved Ambulatory Problems Diagnosis Date Noted Acquired hypothyroidism ([facility]) 09/01/2022 Allergic rhinitis 09/01/2022 Amenorrhea 09/01/2022 Asthma without status asthmaticus ([facility]) 09/01/2022 Attention deficit hyperactivity disorder ([facility]) 09/01/2022 Asthma affecting , antepartum ([facility]) 09/01/2022 Binge eating disorder 09/01/2022 Difficulty concentrating 09/01/2022 Irregular menstrual cycle 09/01/2022 Left sided sciatica 09/01/2022 Insomnia 09/01/2022 Migraines ([facility]) 09/01/2022 Metallic taste 09/01/2022 Mild persistent asthma without complication ([facility]) 09/01/2022 MTHFR mutation 09/01/2022 Nondependent cannabis abuse 09/01/2022 Other chronic pain 09/01/2022 Seasonal allergies 09/01/2022 Skin sensation disturbance 09/01/2022 Transitory mood disturbance 09/01/2022 Verruca plantaris 09/01/2022 Past Medical History: Diagnosis Date Acid reflux ADHD (attention deficit hyperactivity disorder) ([facility]) Asthma ([facility]) GERD (gastroesophageal reflux disease) Hypothyroid ([facility]) Lactose intolerance Marijuana use Migraine ([facility]) Mild persistent asthma, uncomplicated ([facility]) Supervision of normal Thyroid disease ([facility]) HISTORY PAST MEDICAL HISTORY SOCIAL HISTORY Past Medical History: Diagnosis Date Acid reflux ADHD (attention deficit hyperactivity disorder) ([facility]) Asthma ([facility]) Asthma affecting , antepartum ([facility]) GERD (gastroesophageal reflux disease) Hypothyroid ([facility]) Lactose intolerance Marijuana use Migraine ([facility]) Mild persistent asthma, uncomplicated ([facility]) MTHFR mutation Seasonal allergies Supervision of normal Thyroid disease ([facility]) Social History Tobacco Use Smoking status: [...] 2008 Plica band removal, left knee arthroscopy CT BREAST REDUCTION 10/2018 TONSILLECTOMY 1998 REVIEW OF [...] Herber Coto DO documented in this encounter [facility] 01-11-2024 History of Presen t illness Narrative [...] esophagitis 09/01/2022 Moderate persistent asthma without complication ([facility] 09/01/2022 Hypothyroidism, unspecified ([facility] 03/02/2020 Resolved Ambulatory Problems Diagnosis Date Noted Acquired hypothyroidism ([facility]) 09/01/2022 Allergic rhinitis 09/01/2022 Amenorrhea 09/01/2022 Asthma without status asthmaticus ([facility] 09/01/2022 Attention deficit hyperactivity disorder ([facility] 09/01/2022 Asthma affecting , antepartum ([facility]) 09/01/2022 Binge eating disorder ([facility]) 09/01/2022 Difficulty concentrating 09/01/2022 Irregular menstrual cycle 09/01/2022 Left sided sciatica 09/01/2022 Insomnia 09/01/2022 Migraines ([facility]) 09/01/2022 Metallic taste 09/01/2022 Mild persistent asthma without complication ([facility]) 09/01/2022 MTHFR mutation 09/01/2022 Nondependent cannabis abuse 09/01/2022 Other chronic pain 09/01/2022 Seasonal allergies 09/01/2022 Skin sensation disturbance 09/01/2022 Transitory mood disturbance 09/01/2022 Verruca plantaris 09/01/2022 Past Medical History: Diagnosis Date Acid reflux ADHD (attention deficit hyperactivity disorder) ([facility]) Asthma ([facility]) GERD (gastroesophageal reflux disease) Hypothyroid ([facility]) Lactose intolerance Marijuana use Migraine ([facility]) Mild persistent asthma, uncomplicated ([facility]) Supervision of normal Thyroid disease ([facility]) HISTORY PAST MEDICAL HISTORY SOCIAL HISTORY Past Medical History: Diagnosis Date Acid reflux ADHD (attention deficit hyperactivity disorder) ([facility]) Asthma ([facility]) Asthma affecting , antepartum ([facility] GERD (gastroesophageal reflux disease) Hypothyroid ([facility]) Lactose intolerance Marijuana use Migraine ([facility]) Mild persistent asthma, uncomplicated ([facility]) MTHFR mutation Seasonal allergies Supervision of normal Thyroid disease ([facility]) Social History Tobacco Use Smoking status: Never [...] 2008 Plica band removal, left knee arthroscopy CT BREAST REDUCTION 10/2018 TONSILLECTOMY 1998 REVIEW OF [...] nursing note reviewed. Exam conducted with a professional services consultant present. Vitals: Estimated body mass index is [...] or undercooked meat, and stay away from [facility]. Patient has been consulted regarding any [...] done she will reach out to office. Box Builder will be notified at time of delivery [...] . Informed patient since she sees a Inside Sales Account Representative to schedule appointment to make sure asthma is controlled during . Patient is currently taking [employer] Chewable kids vitamins. Patient is taking 2 [...] Herber Coto DO documented in this encounter [facility] 06-04-2023 Telephone encount er Note Sent [facility] 06-04-2023 Miscellaneous Notes Formattin g of this note might be different from the original. Sent Patient requesting refill/[place] documented in this encounter [facility] 06-02-2023 Telephone encount er Note Patient requesting refill/[place] [facility] Evaluation note Diagnosis Attention deficit hyperactivity disorder (ADHD), combined type (CMS/HCC) [facility] Work Phone: Evaluation note* Diagnosis Well [...] state, incidental [facility]* Diagnosis Need for follow-up care after discharge- Primary documented in this encounter [facility] Summary [...] section and content) DATE CREATED AUTHOR 11/18/2018 [facility] DATE CREATED AUTHOR AUTHOR'S ORGANIZ ATION 11/26/2018 [facility] DATE CREATED AUTHOR AUTHOR'S ORGANIZ ATION 09/09/2022 [facility] DATE CREATED AUTHOR AUTHOR'S ORGANIZ ATION 03/16/2024 [facility] DATE CREATED AUTHOR AUTHOR'S ORGANIZ ATION 04/22/2024 [facility] EPIC Reason for Visit (unrecogniz ed section and content) Reason Onset Date Comments Med Refill 06/02/2023 Reason Comments Routine Visit Care Teams (unrecognized sec tion and content) Vineyard Tender Relationship Specialty Start Date End Date Carlos Alberto Coleman MD [address] [place] [address] PCP - General Family Medicine 09/24/22 Tori Pichardo NP [address] [place] [address] Nurse Practitioner Family Medicine 09/24/22 Sofie Gr NP [address] [place] [address] Nurse Practitioner Pulmonary Disease 04/14/23 Team Status: Active Member Role Status Dates Carlos Alberto Coleman MD Primary Care Provider Active Team Status: Inactive Member Role Status Dates Carlos Alberto Coleman MD Primary Care Provider Active S tart: July 13, 2023 End: July 13, 2023 Sofie Gr NP-C Attending Provider Active Start: July 13, 2023 End: July 13, 2023 Vineyard Tender Relationship Specialty Start Date End Date Carlos Alberto Coleman MD [address] [place] [address] PCP - General Family Medicine 09/24/22 Tori Pichardo NP [address] [place] [address] PCP - [employer] 05/28/23 Tori Pichardo [employer] REPAIRER [address] [place] [address] Nurse Practitioner Family Medicine 09/24/22 Sofie Gr NP [address] [place] [phone] Nurse Practitioner Pulmonary Disease 04/14/23 Vineyard Tender Relationship Specialty Start Date End Date Carlos Alberto Coleman MD [address] [place] [address] PCP - General Family Medicine 09/24/22 Tori Pichardo NP [address] [place] [address] PCP - [employer] 05/28/23 Tori Pichardo NP [address] [place] [phone] Nurse Practitioner Family Medicine 09/24/22 Sofie Gr NP [address] [place] [phone] Nurse Practitioner Pulmonary Disease 04/14/23 Vineyard Tender Relationship Specialty Start Date End Date Carlos Alberto Coleman MD [address] [place] [address] PCP - General Family Medicine 09/24/22 Tori Pichardo NP [address] [place] [address] PCP - [employer] 05/28/23 Tori Pichardo NP [address] [place] [address] Nurse Practitioner Family Medicine 09/24/22 Sofie Gr NP [address] [place] [phone] Nurse Practitioner Pulmonary Disease 04/14/23 Vineyard Tender Relationship Specialty Start Date End Date Carlos Alberto Coleman MD [address] [place] [id number] PCP - General Family Medicine 09/24/22 Tori Pichardo NP [address] [place] [address] PCP - [employer] 05/28/23 Tori Pichardo NP [address] [place] [phone] Nurse Practitioner Family Medicine 09/24/22 Sofie Gr NP [address] [place] [phone] Nurse Practitioner Pulmonary Disease 04/14/23 Vineyard Tender Relationship Specialty Start Date End Date Carlos Alberto Coleman MD [address] [place] [id number] PCP - General Family Medicine 09/24/22 Tori Pichardo G[employer] GOLF CART REPAIRER [address] [place] [address] PCP - [employer] 05/28/23 Tori Pichardo NP [address] [place] [address] Nurse Practitioner Family Medicine 09/24/22 Sofie Gr NP [address] [place] [address] Nurse Practitioner Pulmonary Disease 04/14/23 Vineyard Tender Relationship Specialty Start Date End Date Carlos Alberto Coleman MD [address] [place] [address] PCP - General Family Medicine 09/24/22 Tori Pichardo NP [address] [place] [address] PCP - [employer] 05/28/23 Tori Pichardo NP [address] [place] [address] Nurse Practitioner Family Medicine 09/24/22 Sofie Gr NP [address] [place] [address] Nurse Practitioner Pulmonary Disease 04/14/23 Vineyard Tender Relationship Specialty Start Date End Date Carlos Alberto Coleman MD [address] [place] [address] PCP - General Family Medicine 09/24/22 Tori Pichardo NP [address] [place] [address] PCP - [employer] 05/28/23 Tori Pichardo NP [address] [place] [address] Nurse Practitioner Family Medicine 09/24/22 Sofie Gr NP [address] [place] [address] Nurse Practitioner Pulmonary Disease 04/14/23 Vineyard Tender Relationship Specialty Start Date End Date Carlos Alberto Coleman MD [address] [place] [address] PCP - General Family Medicine 09/24/22 Tori Pichardo NP [address] [place] [address] PCP - [employer] 05/28/23 Tori Pichardo NP [address] [place] [address] Nurse Practitioner Family Medicine 09/24/22 Sofie Gr NP [address] [place] [address] Nurse Practitioner Pulmonary Disease 04/14/23 Vineyard Tender Relationship Specialty Start Date End Date Carlos Alberto Coleman MD [address] [place] [address] PCP - General Family Medicine 09/24/22 Tori Pichardo NP [address] [place] [address] PCP - [employer] 05/28/23 Tori Pichardo NP [address] [place] [address] Nurse Practitioner Family Medicine 09/24/22 Sofie Gr NP [address] [place] [address] Nurse Practitioner Pulmonary Disease 04/14/23 Vineyard Tender Relationship Specialty Start Date End Date Carlos Alberto Coleman MD [address] [place] [address] PCP - General Family Medicine 09/24/22 Tori Pichardo, HERRERA [address] [place] [phone] PCP - [employer] 05/28/23 Tori Pichardo NP [address] [place] [address] Nurse Practitioner Family Medicine 09/24/22 Sofie Gr NP [address] [place] [phone] Nurse Practitioner Pulmonary Disease 04/14/23 Vineyard Tender Relationship Specialty Start Date End Date Carlos Alberto Coleman MD [address] [place] [address] PCP - General Family Medicine 09/24/22 Tori Pichardo NP [address] [place] [phone] PCP - [employer] 05/28/23 Tori Pichardo NP [address] [place] [address] Nurse Practitioner Family Medicine 09/24/22 Sofie Gr NP [address] [place] [address] Nurse Practitioner Pulmonary Disease 04/14/23 Vineyard Tender Relationship Specialty Start Date End Date Carlos Alberto Coleman MD [address] [place] [address] PCP - General Family Medicine 09/24/22 Tori Pichardo NP [address] [place] [address] PCP - [facility] 05/28/23 Tori Pichardo NP [address] [place] [address] Nurse Practitioner Family Medicine 09/24/22 Sofie Gr NP [address] [place] [address] Nurse Practitioner Pulmonary Disease 04/14/23 Goals (unrecognized [...] BE BASED ON THE PRIMARY CLINICAL RECORDS. [facility] provides no warranty or guarantee of the accuracy or completeness of information in this document.
[2024-05-09 20:30] VITALS: BP 120/76; PULSE 71
[2024-05-09 20:31] VITALS: BP 120/76; PULSE 71; TEMP 36.6
== END 2024-05-09 20:36 | disposition home or self-care (01) ==
LOC: FBCO 13:38 → FBC 19:00
PROVIDERS: PCP Family Medicine; Visit Provider Obstetrics & Gynecology
DX: O24.419 Gestational diabetes mellitus in pregnancy, unspecified control (principal); Z3A.32 32 weeks gestation of pregnancy
CPT/HCPCS: 59025

== ENCOUNTER 2024-05-09 18:51 | Outpatient (OUT) | payer BC, MEDICAID, SELFPAY ==
--- OUTSIDE RECORDS SUMMARY | 2024-05-09 18:56 | XMS_ITS | CCD ---
Author Organization [facility] Care Team Providers Care Group Cio Name Role Phone RENEE, MODE R Referring [...] ÁNGEL Attending Unavailable KIEPERT, ÁNGEL Admitting Unavailable WOODLAND, DR DEANNA Lance Consulting Unavailable PAY ., [...] Alberto Coleman MD Primary Care Provider Kylee INSTRUMENT LENS GRINDER, Tori Unavailable Maile INSTRUMENT LENS GRINDER, Sofie R Unavailable [phone] MD Carlos Alberto Coleman Primary Care Provider [phone] HEATHER rG Attending Provider [phone] Maile INSTRUMENT LENS GRINDER, Sofie R Unavailable Kylee INSTRUMENT LENS GRINDER, Tori Unavailable Sofie Gr Attending Unavailable Sofie Gr Admitting Unavailable Carlos Alberto Coleman Primary Care Unavailable SOFIE GR Attending Unavailable WARCHOL, TORI Attending Unavailable WARCHOL, TORI Attending Unavailable NNAMDI, HERBER Attending Unavailable NNAMDI, HERBER Attending Unavailable DWIGHT, TORI Attending Unavailable DWIGHT, TORI Attending Unavailable DWIGHT, TORI Attending Unavailable NNAMDI, HERBER Attending Unavailable WARCHOL, TORI Attending Unavailable Allergies Allergy Classification Reported Allergen(s) Allergy Type Date of Onset Reaction(s) Facility (1 source) Cefuroxime Drug Allergy 04-04-20 22 [facility] (2 sources) Ciprofloxacin Drug Allergy 04-03-20 16 [facility] (2 sources) Doxycycline Drug Allergy 05-20-19 21 vomiting [facility] (1 source) Flupenthixol Drug Allergy 04-04-20 22 [facility] (20 sources) Cefuroxime Drug Allergy 05-20-19 21 Rash [facility] (20 sources) Ciprofloxacin Drug Allergy 09-02-19 23 Shortness of breath [facility] (20 sources) Ciprofloxacin Drug Allergy 09-02-19 23 Shortness of breath [facility] (20 sources) cloNIDine Drug Allergy 03-14-20 21 [facility] (20 sources) cloNIDine Drug Allergy 09-02-19 23 [facility] (20 sources) Doxycycline Drug Allergy 05-20-19 21 GI intolerance [facility] (20 sources) Gluten Propensity to adverse reactions 11-11-19 19 [facility] (20 sources) Lactose (non-medical use) Allergy to substance 09-02-19 23 [facility] (20 sources) Lactose (non-medical use) Drug Intolerance 11-11-19 19 [facility] (20 sources) Octacosanol Drug Intolerance 11-11-19 19 [facility] (20 sources) Other Allergy to substance 11-11-19 19 [facility] (20 sources) Silver Allergy to substance 09-02-19 23 [facility] (20 sources) Wound Dressing Adhesive Drug Allergy 09-02-19 23 [facility] (1 source) Cefuroxime Drug Allergy 05-20-19 21 [facility] Repository (1 source) Ciprofloxacin Drug Allergy 05-20-19 21 [facility] (1 source) Doxycycline Drug Allergy 05-20-19 21 [facility] Rep[facility] Medications Current Medications Medication Drug Class(es) Dates Sig (Normalized) Sig (Original) [id number] 200 actuat albuterol 0.09 mg/actuat metered dose [...] Antimicrobial Start: 01-26-2024 End: 04-13-2024 azithromycin (Zithromax Z-Davrin) 250 MG tablet Indications: Upper respiratory tract [...] [facility] Color, UA Light Yellow [facility] Glucose, UA Negative Negative - 1999(110) ++++ mg/dL [facility] Interpretation and review of laboratory results Normal [facility] Ketones, UA Negative Negative - 160(16) ++++ mg/dL [facility] Leukocytes, UA Few Negative - 500+++ Leighann/mcL [facility] Nitrite, UA Negative Negative - Positive [facility] pH, UA 5.5 5 - 9 [facility] Protein, UA Trace Negative - 1999(20) ++++ mg/dL [facility] Spec Grav, UA 1.03 1 - 1.03 [facility] Urobilinogen, UA 0.2 0.2 - 12 mg/dL [facility] Urinalysis macro (dipstick) panel (U)on 04-13-2024 Bilirubin, [...] Interpretation and review of laboratory results Normal [facility] Ketones, UA Negative Negative - 160(16) ++++ mg/dL [facility] Leukocytes, UA Negative Negative - 500+++ Leighann/mcL [facility] Nitrite, UA Negative Negative - Positive [facility] pH, UA 5.5 5 - 9 [facility] Protein, UA Negative Negative - 1999(20) ++++ mg/dL [facility] Spec Grav, UA 1.03 1 - 1.03 [facility] Urobilinogen, UA 0.2 0.2 - 12 mg/dL [facility] Urinalysis macro (dipstick) panel (U)on 04-06-2024 Bilirubin, [...] Interpretation and review of laboratory results Normal [facility] Ketones, UA Negative Negative - 160(16) ++++ mg/dL [facility] Leukocytes, UA Negative Negative - 500+++ Leighann/mcL [facility] Nitrite, UA Negative Negative - Positive [facility] pH, UA 6 5 - 9 [facility] Protein, UA Negative Negative - 2000(20) ++++ mg/dL [facility] Spec Grav, UA 1.015 1 - 1.03 [facility] Urobilinogen, UA 0.2 0.2 - 12 mg/dL [facility] ALL CBC WITH AUTO DIFFon BASOPHILS ABSOLUTE [...] vol] 10.6 fL 9.5 - 13.5 fL [facility] EO # 0.1 [facility] PLT 178 [facility] RBC 3.79 Low [facility] WBC 8.8 [facility] IGP,APTIMA HPV,AGE GDLNon AGE GDLN ACOG TESTING Note . [facility] Comment on above: TESTS RESULT FLAG U NITS REF RANGE LAB Clinician Provided Cytology Information Source.............Cervix No. of containers..01 ThinPrep Vial Age Algo ACOG Sonja... FLAG LEGEND: L-Low Normal,H-High Normal,LL-Alert Low,HH-Alert High <-Panic Low,>-Panic High,A-Abnormal,AA-Critical Abnormal Performed at: 01 =[address] [place] [address] Radha Browne MD, HPV APTIMA Negative Negative [facility] Comment on above: This nucleic acid am plification test detects fourteen high- risk HPV types (16,18,31,33,35,39,45,51,52,56,58,59,66,68) without differentiation. Performed at: =[address] [id number] Machine Cage Maker: Radha Browne MD, Phone: [phone] Performed at: [address] [id number] Machine Cage Maker: Radha Browne MD, Phone: [phone] IGP, APTIMA HPV, RFX 16/18,45 Note . [facility] Comment on above: TESTS RESULT FLAG UN ITS REF RANGE LAB DIAGNOSIS: 02 NEGATIVE FOR INTRAEPITHELIAL LESION OR MALIGNANCY. Specimen adequacy: 02 Satisfactory for evaluation. No endocervical component is identified. Performed by: 02 Danie Vargas, Director Perioperative (ASCP) . 02 Note: Note 02 The [...] Low,>-Panic High,A-Abnormal,AA-Critical Abnormal Performed at: [address] [facility] [place] [address] Radha Browne MD, SPATULA-ALONE CERVIX [facility] [...] UA 0.2 0.2 - 12 mg/dL [facility] ALL THYROID STIM HORMONEon 0 01-22-2024 TSH Qn 1.921 m[IU]/L [facility] Urinalysis macro [...] Interpretation and review of laboratory results Normal [facility] Ketones, UA Negative Negative - 160(16) ++++ mg/dL [facility] Leukocytes, UA Negative Negative - 500+++ Leighann/mcL [facility] Nitrite, UA Negative Negative - Positive [facility] pH, UA 6.0 5 - 9 [facility] Protein, UA Negative Negative - 1999(20) ++++ mg/dL [facility] Spec Grav, UA 1.015 1 - 1.03 [facility] Urobilinogen, UA 0.2 0.2 - 12 mg/dL [facility] BioFire Not Detectedon 07-12 BioFire Not Detected Not detected Normal Not Detecte Maira flaherty [facility] Comment on above: Result Comment: This is a duplicate RP2.1 COVID (PCR) result to be used for statistical tracking purpose only. PERFORMED BY: [facility] [address] [place] [address] PATHOLOGIST CONVEYOR BELT REPAIRER CATY NEELY M.D. Performed By: #### R RODGER PANEL UPP., BIOFIRECOVNOTDE #### [facility] [address] COVID-19 Detected/Not Detect edOrdered By: Sofie Gr on 07-13-2023 SARS-CoV-2 (COVID-19) RNA JUAN+non-probe Ql (Nph) Not detected Not Detecte [facility] Comment on above: This is a duplicate [...] Space PERFORMED BY: [facility] [address] [place] [address] PATHOLOGIST CONVEYOR BELT REPAIRER CATY NEELY M.D. Normal [facility] Comment on above: Performed By: #### R RODGER PANEL UPP., BIOFIRECOVNOTDE #### [facility] [address] Respiratory pathogens DNA an d RNA panel - Nasopharynx by JUAN with non-probe detectionOrdered By: Sofie Gr on 07-13-2023 Respiratory pathogens DNA and RNA panel JUAN+non-probe (Nph) [facility] CBC AUTO DIFFon 06-25-2022 BASO # 0.0 103/ul Normal 0.0-0.1 [facility] Comment on above: Performed By: #### C BC #### [facility] [address] [address] [address] Garland Kohli Basophils/100 WBC (Bld) 0.4 % Normal 0.2-2.0 [facility] Comment on above: Performed By: #### C BC #### [facility] [address] [address] [address] Garland Kohli EO # 0.1 103/ul Normal 0.0-0.7 [facility] Comment on above: Performed By: #### C BC #### [facility] [address] [address] [address] Garland Kohli Eosinophils/100 WBC (Bld) 0.9 % Normal 0.9-7.0 [facility] Comment on above: Performed By: #### C BC #### [facility] [address] [address] [address] Garland Kohli Erythrocyte distribution width (RBC) [Ratio] 12.4 % Normal 11.0-15.0 [facility] Comment on above: Performed By: #### C BC #### [facility] [address] [address] [address] Garland Kohli Hematocrit (Bld) [Volume fraction] 31.4 % Critically low 36.0-48.0 [facility] Comment on above: Performed By: #### C BC #### [facility] [address] [address] [address] Garland Kohli Hemoglobin (Bld) [Mass/Vol] 10.4 g/dL Critically low 12.0-16.0 [facility] Comment on above: Performed By: #### C BC #### [facility] [address] [address] [address] Garland Kohli IG # 0.04 10e3/ul Critically high 0.00-0.03 [facility] Comment on above: Performed By: #### C BC #### [facility] [address] [place] [address] Dr. Garland Kohli IG % 0.4 % Normal 0.0-0.5 [facility] Comment on above: Performed By: #### C BC #### [facility] [address] [place] [address] Dr. Garland Kohli LYMPH # 2.0 103/ul Normal 1.2-3.8 [facility] Comment on above: Performed By: #### C BC #### [facility] [address] [place] [address] Dr. Garland Kohli Lymphocytes/100 WBC (Bld) 22.1 % Normal 20.5-60.0 [facility] Comment on above: Performed By: #### C BC #### [facility] [address] [place] [address] Dr. Garland Kohli MANUAL DIFF REQ NO Normal [facility] Comment on above: Performed By: #### C BC #### [facility] [address] [place] [address] Dr. Garland Kohli MCH (RBC) [Entitic mass] 30.1 pg Normal 26.7-34.0 [facility] Comment on above: Performed By: #### C BC #### [facility] [address] [place] [address] Dr. Garland Kohli MCHC (RBC) [Mass/Vol] 33.1 g/dL Normal 29.9-35.2 [facility] Comment on above: Performed By: #### C BC #### [facility] [address] [place] [address] Dr. Garland Kohli MCV (RBC) [Entitic vol] 91.0 fL Normal 81.0-99.0 [facility] Comment on above: Performed By: #### C BC #### [facility] [address] [place] [address] Dr. Garland Kohli MONO # 0.8 103/ul Normal 0.3-0.8 [facility] Comment on above: Performed By: #### C BC #### [facility] [address] [place] [address] Dr. Garland Kohli Monocytes/100 WBC (Bld) 8.8 % Normal 1.7-12.0 [facility] Comment on above: Performed By: #### C BC #### [facility] [address] [place] [address] Dr. Garland Kohli NEUT # 6.0 103/ul Normal 1.4-6.5 [facility] Comment on above: Performed By: #### C BC #### [facility] [address] [place] [address] Dr. Garland Kohli Neutrophils/100 WBC (Bld) 67.4 % Normal 43.0-75.0 [facility] Comment on above: Performed By: #### C BC #### [facility] [address] [place] [address] Dr. Garland Kohli Platelet mean volume (Bld) [Entitic vol] 12.0 fL Normal 9.5-13.5 [facility] Comment on above: Performed By: #### C BC #### [facility] [address] [place] [address] Dr. Garland Kohli PLT 151 103/ul Normal 150-450 [facility] Comment on above: Performed By: #### C BC #### [facility] [address] [place] [address] Dr. Garland Kohli RBC 3.45 106/ul Critically low 4.20-5.40 [facility] Comment on above: Performed By: #### C BC #### [facility] [address] [place] [address] Dr. Garland Kohli WBC 8.9 103/ul Normal 4.0-11.0 [facility] Comment on above: Performed By: #### C BC #### [facility] [address] [place] [address] Dr. Garland Kohli CBC AUTO DIFFon 06-23-2022 BASO # 0.0 103/ul Normal 0.0-0.1 [facility] Comment on above: Performed By: #### C BC #### [facility] [address] [place] [address] Dr. Garland Kohli Basophils/100 WBC (Bld) 0.4 % Normal 0.2-2.0 [facility] Comment on above: Performed By: #### C BC #### [facility] [address] [place] [address] Dr. Garland Kohli EO # 0.1 103/ul Normal 0.0-0.7 [facility] Comment on above: Performed By: #### C BC #### [facility] [address] [place] [address] Dr. Garland Kohli Eosinophils/100 WBC (Bld) 0.8 % Critically low 0.9-7.0 [facility] Comment on above: Performed By: #### C BC #### [facility] [address] [place] [address] Dr. Garland Kohli Erythrocyte distribution width (RBC) [Ratio] 12.4 % Normal 11.0-15.0 [facility] Comment on above: Performed By: #### C BC #### [facility] [address] [place] [address] Dr. Garland Kohli Hematocrit (Bld) [Volume fraction] 34.5 % Critically low 36.0-48.0 [facility] Comment on above: Performed By: #### C BC #### [facility] [address] [place] [address] Dr. Garland Kohli Hemoglobin (Bld) [Mass/Vol] 11.6 g/dL Critically low 12.0-16.0 [facility] Comment on above: Performed By: #### C BC #### [facility] [address] [place] [address] Dr. Garland Kohli IG # 0.04 10e3/ul Critically high 0.00-0.03 [facility] Comment on above: Performed By: #### C BC #### [facility] [address] [place] [address] Dr. Garland Kohli IG % 0.5 % Normal 0.0-0.5 [facility] Comment on above: Performed By: #### C BC #### [facility] [address] [place] [address] Dr. Garland Kohli LYMPH # 1.3 103/ul Normal 1.2-3.8 [facility] Comment on above: Performed By: #### C BC #### [facility] [address] [place] [address] Dr. Garland Kohli Lymphocytes/100 WBC (Bld) 17.6 % Critically low 20.5-60.0 [facility] Comment on above: Performed By: #### C BC #### [facility] [address] [place] [address] Dr. Garland Kohli MANUAL DIFF REQ NO Normal [facility] Comment on above: Performed By: #### C BC #### [facility] [address] [place] [address] Dr. Garland Kohli MCH (RBC) [Entitic mass] 29.6 pg Normal 26.7-34.0 [facility] Comment on above: Performed By: #### C BC #### [facility] [address] [place] [address] Dr. Garland Kohli MCHC (RBC) [Mass/Vol] 33.6 g/dL Normal 29.9-35.2 [facility] Comment on above: Performed By: #### C BC #### [facility] [address] [place] [address] Dr. Garland Kohli MCV (RBC) [Entitic vol] 88.0 fL Normal 81.0-99.0 [facility] Comment on above: Performed By: #### C BC #### [facility] [address] [place] [address] Dr. Garland Kohli MONO # 0.9 103/ul Critically high 0.3-0.8 [facility] Comment on above: Performed By: #### C BC #### [facility] [address] [place] [address] Dr. Garland Kohli Monocytes/100 WBC (Bld) 11.7 % Normal 1.7-12.0 [facility] Comment on above: Performed By: #### C BC #### [facility] [address] [place] [address] Dr. Garland Kohli NEUT # 5.1 103/ul Normal 1.4-6.5 [facility] Comment on above: Performed By: #### C BC #### [facility] [address] [place] [address] Dr. Garland Kohli Neutrophils/100 WBC (Bld) 69.0 % Normal 43.0-75.0 [facility] Comment on above: Performed By: #### C BC #### [facility] [address] [place] [address] Dr. Garland Kohli Platelet mean volume (Bld) [Entitic vol] 12.1 fL Normal 9.5-13.5 [facility] Comment on above: Performed By: #### C BC #### [facility] [address] [place] [address] Dr. Garland Kohli PLT 193 103/ul Normal 150-450 [facility] Comment on above: Performed By: #### C BC #### [facility] [address] [place] [address] Dr. Garland Kohli RBC 3.92 106/ul Critically low 4.20-5.40 [facility] Comment on above: Performed By: #### C BC #### [facility] [address] [place] [address] Dr. Garland Kohli WBC 7.4 103/ul Normal 4.0-11.0 [facility] Comment on above: Performed By: #### C BC #### [facility] [address] [place] [address] Dr. Garland Kohli DRUG SCREEN RAPID (URINE)on 06-23-2022 AMP Negative Normal NEGATIVE [facility] Comment on above: Performed By: #### D RUGRPD #### [facility] [address] [place] [address] Dr. Garland Kohli BAR Negative Normal NEGATIVE [facility] Comment on above: Performed By: #### D RUGRPD #### [facility] [address] [place] [address] Dr. Garland Kohli BUP Negative Normal NEGATIVE [facility] Comment on above: Performed By: #### D RUGRPD #### [facility] [address] [place] [address] Dr. Garland Kohli BZO Negative Normal NEGATIVE [facility] Comment on above: Performed By: #### D RUGRPD #### [facility] [address] [place] [address] Dr. Garland Kohli JUANI Negative Normal NEGATIVE [facility] Comment on above: Performed By: #### D RUGRPD #### [facility] [address] [place] [address] Dr. Garland Kohli CUT-OFFS SEE BELOW Normal [facility] Comment on above: Result Comment: AMP [...] ng/mL Performed By: #### D RUGRPD #### [facility] [address] [place] [address] Dr. Garland Kohli DRUG CUT HEADER DRUG CLASS TEST SYSTEM CUT-OFF CONCENTRATIONS ARE FOLLOWS: Normal [facility] Comment on above: Performed By: #### D RUGRPD #### [facility] [address] [place] [address] Dr. Garland Kohli mAMP Negative Normal NEGATIVE [facility] Comment on above: Performed By: #### D RUGRPD #### [facility] [address] [place] [address] Dr. Garland Kohli MTD Negative Normal NEGATIVE [facility] Comment on above: Performed By: #### D RUGRPD #### [facility] [address] [place] [address] Dr. Garland Kohli OPI Negative Normal NEGATIVE [facility] Comment on above: Performed By: #### D RUGRPD #### [facility] [address] [place] [address] Dr. Garland Kohli OXY Negative Normal NEGATIVE [facility] Comment on above: Performed By: #### D RUGRPD #### [facility] [address] [place] [address] Dr. Garland Kohli PCP Negative Normal NEGATIVE [facility] Comment on above: Performed By: #### D RUGRPD #### [facility] [address] [place] [address] Dr. Garland Kohli PPX Negative Normal NEGATIVE [facility] Comment on above: Performed By: #### D RUGRPD #### [facility] [address] [place] [address] Dr. Garland Kohli TCA Negative Normal NEGATIVE [facility] Comment on above: Performed By: #### D RUGRPD #### [facility] [address] [place] [address] Dr. Garland Kohli THC Negative Normal NEGATIVE [facility] Comment on above: Performed By: #### D RUGRPD #### [facility] [address] [place] [address] Dr. Garland Kohli TYPE AND SCREENon 06-23-2022 TYPE AND SCREEN Negative Normal [facility] Comment on above: Performed By: #### T NS #### [facility] [address] [place] [address] Dr. Garland Kohli FREE T4on 06-07-2022 Free T4 [Mass/Vol] 0.76 ng/dL Normal 0.76-1.[address] [facility] Comment on above: Performed By: #### C BC #### [facility] 04 [place] [address] Dr. Garland Kohli TSHon 06-07-2022 TSH 1.393 uIU/mL Normal 0.358-3.740 [facility] Comment on above: Performed By: #### T SH #### [facility] [address] [place] [address] Dr. Garland Kohli GROUP B STREP CULTUREon S. agalactiae Ag Ql (Unsp spec) Culture Observations: NEGATIVE FOR GROUP B STREPTOCOCCUS. Normal [facility] Comment on above: Performed By: #### C BC #### [facility] [address] [place] [address] Dr. Garland Kohli GTT 3 HR PREGon 04-16-2022 Glucose [Mass/Vol] 87 mg/dL Normal 74-[address] [facility] Comment on above: Performed By: #### G TT3P #### [facility] [address] [place] [address] Dr. Garland Kohli Glucose [Mass/Vol] 148 mg/dL Normal [facility] Comment on above: Performed By: #### G TT3P #### [facility] [address] [place] [address] Dr. Garland Kohli Glucose [Mass/Vol] 128 mg/dL Normal [facility] Comment on above: Performed By: #### G TT3P #### [facility] [address] [place] [address] Dr. Garland Kohli Glucose [Mass/Vol] 105 mg/dL Normal [facility] Comment on above: Performed By: #### G TT3P #### [facility] [address] [place] [address] Dr. Garland Kohli CBC AUTO DIFFon 04-04-2022 BASO # 0.0 103/ul Normal 0.0-0.1 [facility] Comment on above: Performed By: #### G TT3P #### [facility] [address] [place] [address] Dr. Garland Kohli Basophils/100 WBC (Bld) 0.2 % Normal 0.2-2.0 [facility] Comment on above: Performed By: #### G TT3P #### [facility] [address] [place] [address] Dr. Garland Kohli EO # 0.0 103/ul Normal 0.0-0.7 [facility] Comment on above: Performed By: #### G TT3P #### [facility] [address] [place] [address] Dr. Garland Kohli Eosinophils/100 WBC (Bld) 0.4 % Critically low 0.9-7.0 [facility] Comment on above: Performed By: #### G TT3P #### [facility] [address] [place] [address] Dr. Garland Kohli Erythrocyte distribution width (RBC) [Ratio] 12.9 % Normal 11.0-15.0 [facility] Comment on above: Performed By: #### G TT3P #### [facility] [address] [place] [address] Dr. Garland Kohli Hematocrit (Bld) [Volume fraction] 32.5 % Critically low 36.0-48.0 [facility] Comment on above: Performed By: #### G TT3P #### [facility] [address] [place] [address] Dr. Garland Kohli Hemoglobin (Bld) [Mass/Vol] 11.2 g/dL Critically low 12.0-16.0 [facility] Comment on above: Performed By: #### G TT3P #### [facility] [address] [place] [address] Dr. Garland Kohli IG # 0.07 10e3/ul Critically high 0.00-0.03 [facility] Comment on above: Performed By: #### G TT3P #### [facility] [address] [place] [address] Dr. Garland Kohli IG % 0.8 % Critically high 0.0-0.5 [facility] Comment on above: Performed By: #### G TT3P #### [facility] [address] [place] [address] Dr. Garland Kohli LYMPH # 0.9 103/ul Critically low 1.2-3.8 [facility] Comment on above: Performed By: #### G TT3P #### [facility] [address] [place] [address] Dr. Garland Kohli Lymphocytes/100 WBC (Bld) 10.4 % Critically low 20.5-60.0 [facility] Comment on above: Performed By: #### G TT3P #### [facility] [address] [place] [address] Dr. Garland Kohli MANUAL DIFF REQ NO Normal [facility] Comment on above: Performed By: #### G TT3P #### [facility] [address] [place] [address] Dr. Garland Kohli MCH (RBC) [Entitic mass] 31.4 pg Normal 26.7-34.0 [facility] Comment on above: Performed By: #### G TT3P #### [facility] [address] [place] [address] Dr. Garland Kohli MCHC (RBC) [Mass/Vol] 34.5 g/dL Normal 29.9-35.2 [facility] Comment on above: Performed By: #### G TT3P #### [facility] [address] [place] [address] Dr. Garland Kohli MCV (RBC) [Entitic vol] 91.0 fL Normal 81.0-99.0 [facility] Comment on above: Performed By: #### G TT3P #### [facility] [address] [place] [address] Dr. Garland Kohli MONO # 1.1 103/ul Critically high 0.3-0.8 [facility] Comment on above: Performed By: #### G TT3P #### [facility] [address] [place] [address] Dr. Garland Kohli Monocytes/100 WBC (Bld) 12.5 % Critically high 1.7-12.0 [facility] Comment on above: Performed By: #### G TT3P #### [facility] [address] [place] [address] Dr. Garland Kohli NEUT # 6.3 103/ul Normal 1.4-6.5 [facility] Comment on above: Performed By: #### G TT3P #### [facility] [address] [place] [address] Dr. Garland Kohli Neutrophils/100 WBC (Bld) 75.7 % Critically high 43.0-75.0 [facility] Comment on above: Performed By: #### G TT3P #### [facility] [address] [place] [address] Dr. Garland Kohli Platelet mean volume (Bld) [Entitic vol] 10.5 fL Normal 9.5-13.5 [facility] Comment on above: Performed By: #### G TT3P #### [facility] [address] [place] [address] Dr. Garland Kohli PLT 181 103/ul Normal 150-450 [facility] Comment on above: Performed By: #### G TT3P #### [facility] [address] [place] [address] Dr. Garland Kohli RBC 3.57 106/ul Critically low 4.20-5.40 [facility] Comment on above: Performed By: #### G TT3P #### [facility] [address] [place] [address] Dr. Garland Kohli WBC 8.4 103/ul Normal 4.0-11.0 [facility] Comment on above: Performed By: #### G TT3P #### [facility] [address] [place] [address] Dr. Garland Kohli CTA CHEST WO W [...] DEANNA LINN Date: 2022-04-04 15:25 Normal [facility] PROF CHEM 8 (BAS METB)on Anion gap [Moles/Vol] 13.2 mmol/L Normal [facility] Comment on above: Performed By: #### G TT3P #### [facility] [address] [place] [address] Dr. Garland Kohli Calcium [Mass/Vol] 8.5 mg/dL Normal 8.5-10.[address] [facility] Comment on above: Performed By: #### G TT3P #### [facility] [address] [place] [address] Dr. Garland Kohli Chloride [Moles/Vol] 103 mmol/L Normal 98-107 [facility] Comment on above: Performed By: #### G TT3P #### [facility] [address] [place] [address] Dr. Garland Kohli CO2 [Moles/Vol] 23.4 mmol/L Normal 21.0-32.0 [facility] Comment on above: Performed By: #### G TT3P #### [facility] [address] [place] [address] Dr. Garland Kohli Creatinine [Mass/Vol] 0.43 mg/dL Critically low 0.55-1.02 [facility] Comment on above: Performed By: #### G TT3P #### [facility] [address] [place] [address] Dr. Garland Kohli EGFR-AF ENGLISH >60 Normal >=60 [facility] Comment on above: Performed By: #### G TT3P #### [facility] [address] [place] [address] Dr. Garland Kohli EGFR-NON AF ENGLISH >60 Normal >=60 [facility] Comment on above: Performed By: #### G TT3P #### [facility] [address] [address] [address] Garland Kohli Glucose [Mass/Vol] 108 mg/dL Critically high 74-106 [facility] Comment on above: Performed By: #### G TT3P #### [facility] [address] [address] [address] Garland Kohli Potassium [Moles/Vol] 3.6 mmol/L Normal 3.5-5.1 [facility] Comment on above: Performed By: #### G TT3P #### [facility] [address] [address] [address] Garland Kohli Sodium [Moles/Vol] 136 mmol/L Normal 136-[address] [facility] Comment on above: Performed By: #### G TT3P #### [facility] [address] [address] [address] Garland Kohli Urea nitrogen [Mass/Vol] 5.0 mg/dL Critically low 7.0-18.0 [facility] Comment on above: Performed By: #### G TT3P #### [facility] [address] [address] [address] Garland Kohli Urea nitrogen/Creatinine [Mass ratio] 11.6 mg/mg Normal [facility] Comment on above: Performed By: #### G TT3P #### [facility] [address] [address] [address] Garland Kohli TROPONIN, HIGH SENSITIVITYon 04-04-2022 HSTROP 9.3 pg/mL Normal 4.0-51.3 [facility] Comment on above: Result Comment: CUT- OFF POINTS HAVE BEEN ESTABLISHED BASED ON THE FOURTH UNIVERSAL DEFINITIONS OF MYOCARDIAL INFARCTION. THE UPPER REFERENCE LIMIT (URL) OF TROPONIN, DEFINED THE 99TH PERCENTILE OF cTnI DISTRIBUTION IN A REFERENCE POPULATION, HAS BEEN CONFIRMED THE DECISION THRESHOLD FOR CT DIAGNOSIS. Performed By: #### G TT3P #### [facility] [address] [address] [address] Garland Kohli CBC AUTO DIFFon 03-26-2022 BASO # 0.0 103/ul Normal 0.0-0.1 [facility] Comment on above: Performed By: #### G TT3P #### [facility] [address] [place] [address] Dr. Garland Kohli Basophils/100 WBC (Bld) 0.2 % Normal 0.2-2.0 [facility] Comment on above: Performed By: #### G TT3P #### [facility] [address] [place] [address] Dr. Garland Kohli EO # 0.1 103/ul Normal 0.0-0.7 [facility] Comment on above: Performed By: #### G TT3P #### [facility] [address] [place] [address] Dr. Garland Kohli Eosinophils/100 WBC (Bld) 1.0 % Normal 0.9-7.0 [facility] Comment on above: Performed By: #### G TT3P #### [facility] [address] [place] [address] Dr. Garland Kohli Erythrocyte distribution width (RBC) [Ratio] 12.8 % Normal 11.0-15.0 [facility] Comment on above: Performed By: #### G TT3P #### [facility] [address] [place] [address] Dr. Garland Kohli Hematocrit (Bld) [Volume fraction] 36.2 % Normal 36.0-48.0 [facility] Comment on above: Performed By: #### G TT3P #### [facility] [address] [place] [address] Dr. Garland Kohli Hemoglobin (Bld) [Mass/Vol] 12.2 g/dL Normal 12.0-16.0 [facility] Comment on above: Performed By: #### G TT3P #### [facility] [address] [place] [address] Dr. Garland Kohli IG # 0.08 10e3/ul Critically high 0.00-0.03 [facility] Comment on above: Performed By: #### G TT3P #### [facility] [address] [place] [address] Dr. Garland Kohli IG % 0.9 % Critically high 0.0-0.5 [facility] Comment on above: Performed By: #### G TT3P #### [facility] [address] [place] [address] Dr. Garland Kohli LYMPH # 1.7 103/ul Normal 1.2-3.8 [facility] Comment on above: Performed By: #### G TT3P #### [facility] [address] [place] [address] Dr. Garland Kohli Lymphocytes/100 WBC (Bld) 17.8 % Critically low 20.5-60.0 [facility] Comment on above: Performed By: #### G TT3P #### [facility] [address] [place] [address] Dr. Garland Kohli MANUAL DIFF REQ NO Normal [facility] Comment on above: Performed By: #### G TT3P #### [facility] [address] [place] [address] Dr. Garland Kohli MCH (RBC) [Entitic mass] 30.7 pg Normal 26.7-34.0 [facility] Comment on above: Performed By: #### G TT3P #### [facility] [address] [place] [address] Dr. Garland Kohli MCHC (RBC) [Mass/Vol] 33.7 g/dL Normal 29.9-35.2 [facility] Comment on above: Performed By: #### G TT3P #### [facility] [address] [place] [address] Dr. Garland Kohli MCV (RBC) [Entitic vol] 91.2 fL Normal 81.0-99.0 [facility] Comment on above: Performed By: #### G TT3P #### [facility] [address] [place] [address] Dr. Garland Kohli MONO # 0.6 103/ul Normal 0.3-0.8 [facility] Comment on above: Performed By: #### G TT3P #### [facility] [address] [place] [address] Dr. Garland Kohli Monocytes/100 WBC (Bld) 6.0 % Normal 1.7-12.0 [facility] Comment on above: Performed By: #### G TT3P #### [facility] [address] [place] [address] Dr. Garland Kohli NEUT # 6.9 103/ul Critically high 1.4-6.5 [facility] Comment on above: Performed By: #### G TT3P #### [facility] [address] [place] [address] Dr. Garland Kohli Neutrophils/100 WBC (Bld) 74.1 % Normal 43.0-75.0 [facility] Comment on above: Performed By: #### G TT3P #### [facility] [address] [place] [address] Dr. Garland Kohli Platelet mean volume (Bld) [Entitic vol] 10.2 fL Normal 9.5-13.5 [facility] Comment on above: Performed By: #### G TT3P #### [facility] [address] [place] [address] Dr. Garland Kohli PLT 217 103/ul Normal 150-450 [facility] Comment on above: Performed By: #### G TT3P #### [facility] [address] [place] [address] Dr. Garland Kohli RBC 3.97 106/ul Critically low 4.20-5.40 [facility] Comment on above: Performed By: #### G TT3P #### [facility] [address] [place] [address] Dr. Garland Kohli WBC 9.3 103/ul Normal 4.0-11.0 [facility] Comment on above: Performed By: #### G TT3P #### [facility] [address] [place] [address] Dr. Garland Kohli GLUCOSE - 1HRon 03-26-2022 Glucose [Mass/Vol] 155 mg/dL Critically high 74-106 [facility] Comment on above: Performed By: #### C BC #### [facility] [address] [place] [address] Dr. Garland Kohli US PREG ANATOMY SINGLEon [...] YAAKOV TERAN Date: 2022-02-09 19:30 Normal [facility] AFP MATERNAL FOR SPINA BIFID Aon 01-29-2022 AFP MoM 0.76 Normal [facility] Comment on above: Performed By: #### G TT3P #### [facility] [address] [address] [address] Garland Kohli AFP Value 35.4 ng/mL Normal [facility] Comment on above: Performed By: #### G TT3P #### [facility] [address] [address] [address] Garland Kohli AFP, Serum for Spina Bifida Report Normal [facility] Comment on above: Performed By: #### G TT3P #### [facility] [address] [place] [address] Dr. Garland Kohli Comment Comment Normal [facility] Comment on above: Result Comment: Stanley Almodovar, Ph.D., [facility] Director . References: Available Upon Request. . Multiples Of Median Cutoffs For AFP Elevations Mark 2.5 Black 2.8 IDD 2.0 Twins 4.5 Abbreviation Definitions IDD - Insulin Dep Diabetes OSBR - Open Spina Bifida Risk . For further inquiries contact [employer] at [phone]. . This test was developed and its performance characteristics determined by [employer]. It has not been cleared or approved by the Food and Drug Administration. Performed By: #### G TT3P #### [facility] [address] [place] [address] Dr. Garland Kohli Gest Age Collection Date 18.1 weeks Normal [facility] Comment on above: Performed By: #### G TT3P #### [facility] [address] [place] [address] Dr. Garland Kohli Gestat, Age Based on Ultrasound Normal [facility] Comment on above: Result Comment: 09:4 on 11/26/2021 Recalculations are not recommended when gestational dating by LMP and ultrasound are within 10 days. Performed By: #### G TT3P #### [facility] [address] [place] [address] Dr. Garland Kohli Insulin Dep Diabetes No Normal [facility] Comment on above: Performed By: #### G TT3P #### [facility] [address] [place] [address] Dr. Garland Kohli Interpretation Comment Normal [facility] Comment on above: Result Comment: Inte [...] Customer Services to discuss available options. The [employer] recommends amniocentesis be offered to women age 35 and older. Performed By: #### G TT3P #### [facility] [address] [address] [address] Garland Kohli [age] [facility] Comment on above: Performed By: #### G TT3P #### [facility] [address] [address] [address] Garland Kohli Multiple Gestation No Normal [facility] Comment on above: Performed By: #### G TT3P #### [facility] [address] [address] [address] Garland Kohli OS[place] 1 [place] [address] [facility] Comment on above: Performed By: #### G TT3P #### [facility] [address] [address] [address] Garland Kohli PDF . [facility] Comment on above: Performed By: #### G TT3P #### [facility] [address] [place] [address] Dr. Garland Kohli Race [facility] Comment on above: Performed By: #### G TT3P #### [facility] [address] [place] [address] Dr. Garland Kohli Test Results: Negative [facility] Comment on above: Performed By: #### G TT3P #### [facility] [address] [place] [address] Dr. Garland Kohli PAP ACOG PANEL 2: 21 to 29on 01-23-2022 . . [facility] Comment on above: Performed By: #### [id number] #### [facility] [address] [place] [address] Dr. Garland Kohli Age Gdln ACOG Testing [facility] Comment on above: Performed By: #### [id number] #### [facility] [address] [place] [address] Dr. Garland Kohli DIAGNOSIS: Comment [facility] Comment on above: Result Comment: NEGA TIVE FOR INTRAEPITHELIAL LESION OR MALIGNANCY. Performed By: #### [id number] #### [facility] [address] [place] [address] Dr. Garland Kohli Methodology: Comment Normal [facility] Comment on above: Result Comment: This liquid based ThinPrep(R) pap test was screened with the use of an image guided system. Performed By: #### [id number] #### [facility] [address] [place] [address] Dr. Garland Kohli Note: Comment Normal [facility] Comment on above: Result Comment: The Pap smear is a screening test designed to aid in the detection of premalignant and malignant conditions of the uterine cervix. It is not a diagnostic procedure and should not be used as the sole means of detecting cervical cancer. Both false-positive and false-negative reports do occur. . Performed By: #### [id number] #### [facility] [address] [place] [address] Dr. Garland Kohli Performed by: Comment Normal [facility] Comment on above: Result Comment: Kelly Arreguin, Director Perioperative (ASCP) Performed By: #### [id number] #### [facility] [address] [place] [address] Dr. Garland Kohli Reflex Criteria: Comment Normal [facility] Comment on above: Result Comment: The HPV DNA reflex criteria were not met with this specimen result therefore, no HPV testing was performed. . Performed By: #### [id number] #### [facility] [address] [place] [address] Dr. Garland Kohli Specimen adequacy: Comment Normal [facility] Comment on above: Result Comment: Sati sfactory for evaluation. No endocervical component is identified. Performed By: #### [id number] #### [facility] [address] [place] [address] Dr. Garland Kohli CHLAMYDIA/GONOCOCCUS JUAN (SW AB/URINE/PAPon 01-20-2022 Chlamydia trachomatis, JUAN Negative Normal Negative [facility] Comment on above: Performed By: #### C BC #### [facility] [address] [place] [address] Dr. Garland Kohli Neisseria gonorrhoeae, JUAN Negative Normal Negative [facility] Comment on above: Performed By: #### C BC #### [facility] [address] [place] [address] Dr. Garland Kohli TSHon 01-04-2022 TSH 1.707 uIU/mL Normal 0.358-3.740 [facility] Comment on above: Performed By: #### G TT3P #### [facility] [address] [place] [address] Dr. Garland Kohli HEPATITIS C VIRUS AB W/ REFL EX QUANTon 12-17-2021 HCV AB <0.1 Normal 0.0-0.9 [facility] Comment on above: Performed By: #### G TT3P #### [facility] [address] [place] [address] Dr. Garland Kohli Interpretation: Comment Normal [facility] Comment on above: Result Comment: Nega tive Not infected with HCV, unless recent infection is suspected or other evidence exists to indicate HCV infection. Performed By: #### G TT3P #### [facility] [address] [place] [address] Dr. Garland Kohli CULTURE URINEon 12-15-2021 CULTURE URINE Culture Observations : GREATER THAN TWO ORGANISMS PRESENT. PLEASE RESUBMIT CLEAN CATCH MID-STREAM URINE IF CLINICALLY INDICATED. Normal [facility] Comment on above: Performed By: #### U RCX #### [facility] [address] [place] [address] Dr. Garland Kohli HEP B SURFACE ANTIGEN SCREEN on 12-15-2021 HBsAg Screen Negative Normal Negative [facility] Comment on above: Performed By: #### H BSANS #### [facility] [address] [place] [address] Dr. Garland Kohli HIV 1 AND 2 WITH REFLEXon HIV Screen 4th Generation wRfx Non-Reactive Normal Non Reactive [facility] Comment on above: Result Comment: HIV Negative HIV-1/HIV-2 antibodies and HIV-1 p24 antigen were NOT detected. There is no laboratory evidence of HIV infection. Performed By: #### H IV12 #### [facility] [address] [place] [address] Dr. Garland Kohli RPR QUANTon 12-15-2021 Rapid Plasma Reagin, Quant Non-Reactive Normal NonRea<1:1 [facility] Comment on above: Result Comment: Elmo torres Note: This test does not meet current guidelines for screening and diagnosis of syphilis. This test is intended for following treatment response in patients being treated for syphilis infection. To screen for syphilis infection, a reflex cascade that includes both RPR and a treponema-specific assay should be utilized, such as Treponema pallidum (Syphilis) Screening Gage (473565) or Rapid Plasma Reagin (RPR) Test With Reflex to Quantitative RPR and Confirmatory Treponema pallidum Antibodies (487921). Performed By: #### G TT3P #### [facility] [address] [place] [address] Dr. Garland Kohli RUBELLA AB IGGon 12-15-2021 Rubella Antibodies, IgG 4.72 index Normal Immune >0.99 [facility] Comment on above: Result Comment: Non- immune <0.90 Equivocal 0.90 - 0.99 Immune >0.99 Performed By: #### G TT3P #### [facility] [address] [place] [address] Dr. Garland Kohli CBC AUTO DIFFon 12-14-2021 BASO # 0.0 103/ul Normal 0.0-0.1 [facility] Comment on above: Performed By: #### C BC #### [facility] [address] [place] [address] Dr. Garland Kohli Basophils/100 WBC (Bld) 0.3 % Normal 0.2-2.0 [facility] Comment on above: Performed By: #### C BC #### [facility] [address] [place] [address] Dr. Garland Kohli EO # 0.1 103/ul Normal 0.0-0.7 [facility] Comment on above: Performed By: #### C BC #### [facility] [address] [place] [address] Dr. Garland Kohli Eosinophils/100 WBC (Bld) 0.8 % Critically low 0.9-7.0 [facility] Comment on above: Performed By: #### C BC #### [facility] [address] [place] [address] Dr. Garland Kohli Erythrocyte distribution width (RBC) [Ratio] 12.6 % Normal 11.0-15.0 [facility] Comment on above: Performed By: #### C BC #### [facility] [address] [place] [address] Dr. Garland Kohli Hematocrit (Bld) [Volume fraction] 34.3 % Critically low 36.0-48.0 [facility] Comment on above: Performed By: #### C BC #### [facility] [address] [place] [address] Dr. Garland Kohli Hemoglobin (Bld) [Mass/Vol] 11.7 g/dL Critically low 12.0-16.0 [facility] Comment on above: Performed By: #### C BC #### [facility] [address] [place] [address] Dr. Garland Kohli IG # 0.03 10e3/ul Normal 0.00-0.03 [facility] Comment on above: Performed By: #### C BC #### [facility] [address] [place] [address] Dr. Garland Kohli IG % 0.4 % Normal 0.0-0.5 [facility] Comment on above: Performed By: #### C BC #### [facility] [address] [place] [address] Dr. Garland Kohli LYMPH # 1.5 103/ul Normal 1.2-3.8 [facility] Comment on above: Performed By: #### C BC #### [facility] [address] [place] [address] Dr. Garland Kohli Lymphocytes/100 WBC (Bld) 21.1 % Normal 20.5-60.0 [facility] Comment on above: Performed By: #### C BC #### [facility] [address] [place] [address] Dr. Garland Kohli MANUAL DIFF REQ NO Normal [facility] Comment on above: Performed By: #### C BC #### [facility] [address] [place] [address] Dr. Garland Kohli MCH (RBC) [Entitic mass] 30.5 pg Normal 26.7-34.0 [facility] Comment on above: Performed By: #### C BC #### [facility] [address] [place] [address] Dr. Garland Kohli MCHC (RBC) [Mass/Vol] 34.1 g/dL Normal 29.9-35.2 [facility] Comment on above: Performed By: #### C BC #### [facility] [address] [place] [address] Dr. Garland Kohli MCV (RBC) [Entitic vol] 89.6 fL Normal 81.0-99.0 [facility] Comment on above: Performed By: #### C BC #### [facility] [address] [place] [address] Dr. Garland Kohli MONO # 0.5 103/ul Normal 0.3-0.8 [facility] Comment on above: Performed By: #### C BC #### [facility] [address] [place] [address] Dr. Garland Kohli Monocytes/100 WBC (Bld) 7.1 % Normal 1.7-12.0 [facility] Comment on above: Performed By: #### C BC #### [facility] [address] [place] [address] Dr. Garland Kohli NEUT # 5.0 103/ul Normal 1.4-6.5 [facility] Comment on above: Performed By: #### C BC #### [facility] [address] [place] [address] Dr. Garland Kohli Neutrophils/100 WBC (Bld) 70.3 % Normal 43.0-75.0 [facility] Comment on above: Performed By: #### C BC #### [facility] [address] [place] [address] Dr. Garland Kohli Platelet mean volume (Bld) [Entitic vol] 10.1 fL Normal 9.5-13.5 [facility] Comment on above: Performed By: #### C BC #### [facility] [address] [address] [address] Garland Kohli PLT 234 103/ul Normal 150-450 [facility] Comment on above: Performed By: #### C BC #### [facility] [address] [address] [address] Garland Kohli RBC 3.83 106/ul Critically low 4.20-5.40 [facility] Comment on above: Performed By: #### C BC #### [facility] [address] [address] [address] Garland Kohli WBC 7.1 103/ul Normal 4.0-11.0 [facility] Comment on above: Performed By: #### C BC #### [facility] [address] [place] [address] Dr. Garland Kohli GLYCOHEMOGLOBIN A1Con 2021 ADA RECOMMENDATION SEE BELOW Normal [facility] Comment on above: Result Comment: ADA RECOMMENDED LIMIT 4.0 - 6.0 ADA THERAPEUTIC TARGET < 7.0 ACTION SUGGESTED > 7.0 Performed By: #### A 1C #### [facility] [address] [place] [address] Dr. Garland Kolhi Glucose [Mass/Vol] 103 mg/dL Normal [facility] Comment on above: Performed By: #### A 1C #### [facility] [address] [place] [address] Dr. Garland Kohli HbA1c (Bld) [Mass fraction] 5.2 % Normal 4.5-6.2 [facility] Comment on above: Performed By: #### A 1C #### [facility] [address] [place] [address] Dr. Garland Kohli MARTÍNEZ BOX TEST PT SEND OUTo n 12-14-2021 SENT TO REF LAB 12/14/21 Normal [facility] Comment on above: Performed By: #### G TT3P #### [facility] [address] [place] [address] Dr. Garland Kohli TYPE AND SCREENon 12-14-2021 TYPE AND SCREEN Negative Normal [facility] Comment on above: Performed By: #### C BC #### [facility] [address] [address] [address] 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 Steri-Strips applied throughout and then bulky gauze dressing as well as surgical bra was applied. The patient was awoken, extubated, and transported to the recovery room in stable condition. Sponge, needle, and instrument counts were reported correct x2 at the end of the case. MODE RENEE [id number] Doc#: [id number] CC: Carlos Alberto Coleman Normal [facility] Surgical Pathologyon 019 Surgical Pathology (NOTE) [id number] [place] [address] [facility] [place] [address] SURGICAL PATHOLOGY REPORT Patient Name: CECELIA JOHNSON MR#: [id number] Specimen #[id number] Final Diagnosis SPECIMEN A : BREAST AND [...] specimen weighs 453 grams. Multiple sales representative church furniture sections are submitted in five cassettes for [...] in multiple different areas and sales representative church furniture sections are submitted in five cassettes for microscopic examination. Microscopic Description Specimen A : Five RICHARD glass slides are received. Microscopic examination is performed. Specimen B : Five RICHARD glass slides are received. Microscopic examination is performed. Normal [facility] Comment on above: Performed By: #### P PPES #### [facility] [address] [place] [address] Machine Cage Maker: Victor Manuel Hunter DO CNOVSPon 11-18-2018 CNOVS Visit (SP) Office ([place]) CECELIA JOHNSON ([id number]) 1995 F Date Time Provider Department 11/18/18 1:00 PM JAZ MOULTON) KATHARINE During your visit today, we recorded the following information about you: Temperature Pulse Respiration Blood pressure 97.9 degrees 82/minute 18/minute 122/78 Weight Height Last Period 82.7 kg 1.6 m 10/15/18 Jaz Moulton MD 11/18/2018 3:08 PM Signed PATIENT NAME: Cecelia Johnson CLINIC NO.: [id number] ATTENDING PHYSICIAN: Jaz Moulton MD DATE OF [...] file Gets together: Not on file Attends episcopal service: Not on file Active member of [...] on a when necessary basis. Dear Dr. OUSNA thank you for allowing me to participate in Miss Cecelia Johnson care, if there are any questions or concerns please do not hesitate to contact me at the number below. Jaz Moulton M.D. Hematology/[facility] [phone] CC: Carlos Alberto Coleman MD - (Inactive), In Basket (Inactive) - User (Inactive) [phone] [facility] [phone] () Mode Renee [...] Status:Closed by JAZ MOULTON MD on 11/18/18 [facility] PROGRESSon 11-18-2018 PROGRESS HNO ID: [id number] Author: Jaz Hill) Kenney Service: ? Author Type: Physician Type: Progress Notes Filed: 11/18/2018 3:08 PM Note Text: PATIENT NAME: Cecelia Johnson [facility] NO.: [id number] ATTENDING PHYSICIAN: Jaz Moulton MD DATE OF [...] file Gets together: Not on file Attends episcopal service: Not on file Active member of [...] below. Jaz Moulton M.D. Hematology/Medical Oncology [facility] [phone] CC: Carlos Alberto Coleman MD - (Inactive), In Basket (Inactive) - User (Inactive) [phone] [place] [place] [phone] (Ph) Mode Renee MD [facility] Basic Metabolic Profon 11-10 (cont.) Normal [facility] Comment on above: Result Comment: Aver age GFR for 20-29 years old: 116 mL/min/1.73sq m Chronic Kidney Disease: <60 mL/min/1.73sq m Kidney failure: <15 mL/min/1.73sq m eGFR calculated using average adult body mass. Additional eGFR calculator available at: http://www.ActiveRain.Employma/multiple_crcl_2012.htm Performed By: #### C FARAZ, BMP #### [facility] [place] [address] Machine Cage Maker: Victor Manuel Hunter DO Anion gap [Moles/Vol] 11 mmol/L Normal 9-17 [facility] Comment on above: Performed By: #### C FARAZ, BMP #### [facility] [place] [address] Machine Cage Maker: Victor Manuel Hunter DO Calcium [Mass/Vol] 9.7 mg/dL Normal 8.6-10.4 [facility] Comment on above: Performed By: #### C FARAZ, BMP #### [facility] [place] [place] [address] Machine Cage Maker: Victor Manuel Hunter DO Chloride [Moles/Vol] 102 mmol/L Normal 98-107 [facility] Comment on above: Performed By: #### C FARAZ, BMP #### [facility] [place] [address] Machine Cage Maker: Victor Manuel Hunter DO CO2 [Moles/Vol] 26 mmol/L Normal 20-31 [facility] Comment on above: Performed By: #### C DP, BMP #### [facility] [place] [address] Machine Cage Maker: Victor Manuel Hunter DO Creatinine [Mass/Vol] 0.49 mg/dL Low 0.50-0.90 [facility] Comment on above: Performed By: #### C DP, ROSA #### [facility] [address] [place] [address] Machine Cage Maker: Victor Manuel Hunter DO GFR, Amer >60 Normal >60 [facility] Comment on above: Performed By: #### C DP, BMP #### [facility] [address] [place] [address] Machine Cage Maker: Victor Manuel Hunter DO GFR,non Amer >60 Normal >60 [facility] Comment on above: Performed By: #### C DP, BMP #### [facility] [address] [place] [address] Machine Cage Maker: Victor Manuel Hunter DO Glucose [Mass/Vol] 88 mg/dL Normal 70-99 [facility] Comment on above: Performed By: #### C DP, BMP #### [facility] [address] [place] [address] Machine Cage Maker: Victor Manuel Hunter DO Potassium [Moles/Vol] 4.3 mmol/L Normal 3.7-5.3 [facility] Comment on above: Performed By: #### C DP, BMP #### [facility] [place] [address] Machine Cage Maker: Victor Manuel Hunter DO Sodium [Moles/Vol] 139 mmol/L Normal 135-144 [facility] Comment on above: Performed By: #### C DP, BMP #### [facility] [address] [place] [address] Machine Cage Maker: Victor Manuel Hunter DO Urea nitrogen [Mass/Vol] 8 mg/dL Normal 6-20 [facility] Comment on above: Performed By: #### C DP, BMP #### [facility] [address] [place] [address] Machine Cage Maker: Victor Manuel Hunter DO BUN/CRE Ratio NOT REPORTED Normal 9-20 [facility] Comment on above: Performed By: #### C FARAZ, BMP #### [facility] [address] [place] [address] Machine Cage Maker: Victor Manuel Hunter DO Staging: NOT REPORTED Normal [facility] Comment on above: Performed By: #### C FARAZ, BMP #### [facility] [address] [place] [address] Machine Cage Maker: Victor Manuel Hunter DO CBC with Diffon 11-10-2018 Abs. Basophil 0.00 k/uL Normal 0.0-0.2 [facility] Comment on above: Performed By: #### C FARAZ, BMP #### [facility] [address] [place] [address] Machine Cage Maker: Victor Manuel Hunter DO Abs.Neutrophil (Seg) 3.00 k/uL Normal 1.3-9.1 [facility] Comment on above: Performed By: #### C FARAZ, BMP #### [facility] [address] [place] [address] Machine Cage Maker: Victor Manuel Hunter DO Basophils/100 WBC (Bld) 0 % Normal 0-2 [facility] Comment on above: Performed By: #### C FARAZ, BMP #### [facility] [address] [place] [address] Machine Cage Maker: Victor Manuel Hunter DO Eosinophils (Bld) [#/Vol] 0.10 10*3/uL Normal 0.0-0.4 [facility] Comment on above: Performed By: #### C DP, BMP #### [facility] [address] [place] [address] Machine Cage Maker: Victor Manuel Hunter DO Eosinophils/100 WBC (Bld) 1 % Normal 0-4 [facility] Comment on above: Performed By: #### C DP, BMP #### [facility] [address] [place] [address] Machine Cage Maker: Victor Manuel Hunter DO Erythrocyte distribution width (RBC) [Ratio] 12.7 % Normal 11.5-14.9 [facility] Comment on above: Performed By: #### C DP, BMP #### [facility] [address] [place] [address] Machine Cage Maker: Victor Manuel Hunter DO Hematocrit (Bld) [Volume fraction] 42.3 % Normal 36-46 [facility] Comment on above: Performed By: #### C DP, BMP #### [facility] [address] [place] [address] Machine Cage Maker: Victor Manuel Hunter DO Hemoglobin (Bld) [Mass/Vol] 14.3 g/dL Normal 12.0-16.0 [facility] Comment on above: Performed By: #### C FARAZ, BMP #### [facility] [address] [place] [address] Machine Cage Maker: Victor Manuel Hunter DO Lymphocytes (Bld) [#/Vol] 1.70 10*3/uL Normal 1.0-4.8 [facility] Comment on above: Performed By: #### C DP, BMP #### [facility] [address] [place] [address] Machine Cage Maker: Victor Manuel Hunter DO Lymphocytes/100 WBC (Bld) 32 % Normal 24-44 [facility] Comment on above: Performed By: #### C DP, BMP #### [facility] [address] [place] [address] Machine Cage Maker: Victor Manuel Hunter DO MCH (RBC) [Entitic mass] 30.0 pg Normal 26-34 [facility] Comment on above: Performed By: #### C DP, BMP #### [facility] [place] [address] Machine Cage Maker: Victor Manuel Hunter DO MCHC (RBC) [Mass/Vol] 33.7 g/dL Normal 31-37 [facility] Comment on above: Performed By: #### C DP, BMP #### [facility] [address] [place] [address] Machine Cage Maker: Victor Manuel Hunter DO MCV (RBC) [Entitic vol] 89.0 fL Normal 80-100 [facility] Comment on above: Performed By: #### C DP, BMP #### [facility] [address] [place] [address] Machine Cage Maker: Victor Manuel Hunter DO Monocytes (Bld) [#/Vol] 0.60 10*3/uL Normal 0.1-1.3 [facility] Comment on above: Performed By: #### C FARAZ, BMP #### [facility] [address] [place] [address] Machine Cage Maker: Victor Manuel Hunter DO Monocytes/100 WBC (Bld) 11 % High 1-7 [facility] Comment on above: Performed By: #### C DP, BMP #### [facility] [address] [place] [address] Machine Cage Maker: Victor Manuel Hunter DO Neutrophil (Seg) 56 % Normal 36-66 [facility] Comment on above: Performed By: #### C DP, BMP #### [facility] [address] [place] [address] Machine Cage Maker: Victor Manuel Hunter DO Platelet mean volume (Bld) [Entitic vol] 9.4 fL Normal 6.0-12.0 [facility] Comment on above: Performed By: #### C DP, BMP #### [facility] [place] [address] Machine Cage Maker: Victor Manuel Hunter DO Platelets (Bld) [#/Vol] 252 10*3/uL Normal 150-450 [facility] Comment on above: Performed By: #### C DP, BMP #### [facility] [address] [place] [address] Machine Cage Maker: Victor Manuel Hunter DO RBC (Bld) [#/Vol] 4.75 10*6/uL Normal 4.0-5.2 [facility] Comment on above: Performed By: #### C DP, BMP #### [facility] [address] [place] [address] Machine Cage Maker: Victor Manuel Hunter DO WBC (Bld) [#/Vol] 5.3 10*3/uL Normal 3.5-11.0 [facility] Comment on above: Performed By: #### C FARAZ, BMP #### [facility] [address] [place] [address] Machine Cage Maker: Victor Manuel Hunter DO Abs.Imm.Granulocyte NOT REPORTED Normal 0.00-0.30 [facility] Comment on above: Performed By: #### C DP, BMP #### [facility] [address] [place] [address] Machine Cage Maker: Victor Manuel Hunter DO Auto Diff Performed NOT REPORTED Normal [facility] Comment on above: Performed By: #### C DP, BMP #### [facility] [address] [place] [address] Machine Cage Maker: Victor Manuel Hunter DO Immature granulocytes (Bld) [#/Vol] NOT REPORTED Normal 0 [facility] Comment on above: Performed By: #### C DP, BMP #### [facility] [address] [facility] [place] [address] Machine Cage Maker: Victor Manuel Hunter DO NRBC Automated NOT REPORTED Normal [facility] Comment on above: Performed By: #### C DP, BMP #### [facility] [address] [facility] [place] [address] Machine Cage Maker: Victor Manuel Hunter DO Platelets (Bld) [#/Vol] NOT REPORTED Normal [facility] Comment on above: Performed By: #### C DP, BMP #### [facility] [address] [place] [address] Machine Cage Maker: Victor Manuel Hunter DO RBC morphology finding Nom (Bld) NOT REPORTED Normal [facility] Comment on above: Performed By: #### C DP, BMP #### [facility] [place] [address] Machine Cage Maker: Victor Manuel Hunter DO WBC Morphology NOT REPORTED Normal [facility] Comment on above: Performed By: #### C DP, BMP #### [facility] [place] [address] Machine Cage Maker: Victor Manuel Hunter DO Vital Signs Date Time Vital Sign Value Performing Clinician Facility 05-03-2024 16:38-0500 Body height 162.6 cm Tori Martinez [employer] Work Phone: [facility] 05-03-2024 16:38-0500 Body mass index (BMI) [Ratio] 32.3 kg/m2 Tori Martinez [employer] Work Phone: [facility] 05-03-2024 16:38-0500 Body temperature 97.59 [degF] Tori Martinez [employer] Work Phone: [facility] 05-03-2024 16:38-0500 Body weight 85.37 kg Tori Martinez [employer] Work Phone: [facility] 05-03-2024 16:38-0500 Diastolic blood pressure 72 mm[Hg] Tori Martinez [employer] Work Phone: [facility] 05-03-2024 16:38-0500 Heart rate 93 /min Tori Martinez [employer] Work Phone: [facility] 05-03-2024 16:38-0500 SaO2% (BldA) [Mass fraction] 99 % Tori Martinez [employer] Work Phone: [facility] 05-03-2024 16:38-0500 Systolic blood pressure 124 mm[Hg] Tori Martinez [employer] Work Phone: [facility] 04-21-2024 08:49-0500 Body mass index (BMI) [Ratio] 32.06 kg/m2 Herber Nnamdi DO Work Phone: [facility] 04-21-2024 08:49-0500 Body weight 84.73 kg Herber Nnamdi DO Work Phone: [facility] 04-21-2024 08:49-0500 Diastolic blood pressure 72 mm[Hg] Herber Nnamdi DO Work Phone: [facility] 04-21-2024 08:49-0500 Systolic blood pressure 104 mm[Hg] Herber Nnamdi DO Work Phone: [facility] 04-13-2024 15:58-0500 Body mass index (BMI) [Ratio] 31.78 kg/m2 Tori Pepe PA Work Phone: [facility] 04-13-2024 15:58-0500 Body weight 83.97 kg Tori [place] PA Work Phone: [facility] 04-13-2024 15:58-0500 Diastolic blood pressure 80 mm[Hg] Tori Dwight PA Work Phone: [facility] 04-13-2024 15:58-0500 Systolic blood pressure 120 mm[Hg] Tori Pepe PA Work Phone: [facility] 04-06-2024 16:29-0500 Body mass index (BMI) [Ratio] 31.65 kg/m2 Tori [place] PA Work Phone: [facility] 04-06-2024 16:29-0500 Body weight 83.64 kg Tori Dwight PA Work Phone: [facility] 04-06-2024 16:29-0500 Diastolic blood pressure 74 mm[Hg] Tori [place] PA Work Phone: [facility] 04-06-2024 16:29-0500 Systolic blood pressure 112 mm[Hg] Tori [place] PA Work Phone: [facility] 03-09-2024 16:25-0500 Body mass index (BMI) [Ratio] 30.88 kg/m2 Tori [place] PA Work Phone: [facility] 03-09-2024 16:25-0500 Body weight 81.6 kg Tori Dwight PA Work Phone: [facility] 03-09-2024 16:25-0500 Diastolic blood pressure 70 mm[Hg] Tori Dwight PA Work Phone: [facility] 03-09-2024 16:25-0500 Systolic blood pressure 114 mm[Hg] Tori Dwight PA Work Phone: [facility] [...] Work Phone: [facility] 01-11-2024 16:03-0400 Body mass index (BMI) [Ratio] 28.06 kg/m2 Herber Nnamdi DO Work Phone: [facility] 01-11-2024 16:03-0400 Body weight 74.16 kg Herber Nnamdi DO Work Phone: [facility] 01-11-2024 16:03-0400 Diastolic blood pressure 72 mm[Hg] Herber Nnamdi DO Work Phone: [facility] 01-11-2024 16:03-0400 Systolic blood pressure 118 mm[Hg] Herber Nnamdi DO Work Phone: [facility] 01-29-2022 02:06-0400 Body weight 67.[address] ZEN BREWER . [facility] Comment on above: Performed By: #### [id number] #### [facility] [address] [place] [address] Dr. Garland Kohli Encounters Encounter Date Encounter Type Care Provider Facility Start: 05-03-2024 End: 05-03-2024 Office outpatient visit 25 minutes Tori Martinez INSTRUMENT L[employer] GRINDER Work Phone: [facility] Comment on above: Need for follow-up c are after discharge (Primary Dx) Start: 05-03-2024 End: 05-03-2024 ambulatory TORI MARTINEZ Not Available Start: 05-03-2024 End: 05-03-2024 Bamboo flowsheet Tori Martinez IN[employer]UMENT L[employer] GR[employer]ER Work Phone: [facility] Start: 05-03-2024 End: 05-03-2024 Bamboo flowsheet Tori Martinez IN[employer]UMENT [employer] GR[employer]ER Work Phone: [facility] Start: 04-21-2024 [...] 04-13-2024 flow sheet Tori SHIRLEY Work Phone: [facility] Comment on above: 28 weeks gestation o f ; Second trimester ; Gestational diabetes mellitus (GDM), antepartum, gestational diabetes method of control unspecified; Anxiety, generalized (CMS/HCC); Nausea; Hypothyroidism, unspecified type (CMS/HCC) Start: 04-13-2024 End: 04-13-2024 ambulatory TORI PEPE Not Available Start: 04-13-2024 End: 04-13-2024 Bamboo flowsheet Tori Pepe PA Work Phone: [facility] Start: 04-13-2024 End: 04-13-2024 Bamboo flowsheet Tori SHIRLEY Work Phone: [facility] Start: 04-06-2024 End: 04-06-2024 ambulatory TORI PEPE Not Available Start: 04-06-2024 End: 04-06-2024 flow sheet Tori SHIRLEY Work Phone: [facility] Comment on above: Second trimester pre gnancy; 27 weeks gestation of Start: 04-06-2024 End: 04-06-2024 Bamboo flowsheet Tori SHIRLEY Work Phone: [facility] Start: 04-06-2024 End: 04-06-2024 Bamboo flowsheet Tori SHIRLEY Work Phone: [facility] Start: 03-19-2024 End: 03-19-2024 Clinisync Result Encounter Tori SHIRLEY Work Phone: [facility] External Department Unsolicited Start: 03-19-2024 End: 03-19-2024 Clinisync Result Encounter Tori SHIRLEY Work Phone: [facility] External Department Unsolicited Start: 03-09-2024 End: 03-09-2024 ambulatory TORI PEPE Not Available Start: 03-09-2024 End: 03-09-2024 flow sheet Tori SHIRLEY Work Phone: [facility] Comment on above: Encounter for follow -up ultrasound of anatomy; Second trimester ; 23 weeks gestation of ; Hypothyroidism, unspecified type ([facility]/HCC); Diabetes mellitus screening; Anxiety, generalized ([facility]/HCC) Start: 03-09-2024 End: 03-09-2024 Bamboo flowsheet Tori SHIRLEY Work Phone: [facility] Start: 03-09-2024 End: 03-09-2024 Bamboo flowsheet Tori SHIRLEY Work Phone: [facility] Start: 02-10-2024 End: 02-10-2024 ambulatory HERBER NNAMDI Not Available Start: 02-10-2024 End: 02-10-2024 Bamboo flowsheet Herber Nnamdi DO Work Phone: [facility] Start: 02-10-2024 End: 02-17-2024 Bamboo flowsheet Herber Nnamdi DO Work Phone: [facility] Start: 02-10-2024 End: 02-17-2024 Clinisync Result Encounter Generic External Data Provider [facility] External Department Unsolicited Start: 02-10-2024 End: 02-10-2024 Patient encounter procedure Herber Nnamdi DO Work Phone: [facility] Start: 02-10-2024 End: 02-10-2024 Periodic preventive med est patient 18-39 yrs Herber Nnamdi DO Work Phone: [facility] Comment on above: Well woman exam with routine gynecological exam; Screening, , for anatomic survey; Second trimester ; 19 weeks gestation of ; Screen for STD (sexually transmitted disease); Vaginal discharge; headache in second trimester Start: 01-22-2024 End: 01-22-2024 Clinisync Result Encounter Generic External Data Provider [facility] External Department Unsolicited Start: 01-22-2024 End: 01-22-2024 Clinisync Result Encounter Generic External Data Provider [facility] External Department Unsolicited Start: 01-11-2024 End: 01-11-2024 flow sheet Herber Nnamdi DO Work Phone: [facility] Comment on above: Second trimester pre gnancy; Other specified hypothyroidism (CMS/HCC); Moderate asthma, unspecified whether complicated, unspecified whether persistent (CMS/HCC) Start: 01-11-2024 End: 01-11-2024 ambulatory HREBER NNAMDI Not Available Start: 01-11-2024 End: 01-11-2024 Bamboo flowsheet Herber Nnamdi DO Work Phone: [facility] Start: 01-11-2024 End: 01-11-2024 Bamboo flowsheet Herber Nnamdi DO Work Phone: [facility] Start: 12-11-2023 End: 12-11-2023 ambulatory SOFIE LAUSE Not Available Start: 10-16-2023 End: 10-16-2023 ambulatory TORI BAKERCHOL Not Available Start: 07-17-2023 End: 07-17-2023 ambulatory TORI BAKERCHOL Not Available Start: 07-13-2023 End: 07-13-2023 Patient encounter procedure MD Carlos Alberto Coleman Work Phone: [facility] Start: 07-13-2023 End: 07-13-2023 ambulatory MD Carlos Alberto Coleman Work Phone: [facility] Work Phone: Start: 07-13-2023 End: 07-13-2023 ambulatory SOFIE R LAUSE Not Available Start: 06-02-2023 Refill Tori Martinez [employer]ER Work Phone: [facility] Comment on above: Attention deficit hy peractivity disorder (ADHD), combined type (CMS/HCC) Start: 07-04-2022 End: 07-14-2022 ambulatory ÁNGEL KIEPERT Facility:[facility] Start: 07-01-2022 End: 07-01-2022 ambulatory ÁNGEL KIEPERT Facility:[facility] Start: 06-23-2022 End: 06-25-2022 Evaluation and management of inpatient JAZ RAMIREZANA Facility:[facility] Start: 06-07-2022 End: 06-08-[address] [...] abnormal findings DR ZEN BREWER . [facility] Start: 01-17-2022 End: 01-17-[address] ZEN BREWER . Facility:[facility] Start: 01-17-2022 End: 01-17-2022 Encounter for gynecological examination (general) (routine) without abnormal findings DR ZEN BREWER . Facility:[facility] Start: 01-04-2022 End: 01-05-2022 ambulatory ÁNGEL SINHA Facility:[facility] Start: 12-14-2021 End: 12-15-[address] ZEN BREWER . Facility:[facility] Start: 11-26-2021 End: 11-27-2021 ambulatory ÁNGEL SINHA Facility: Start: 11-24-2018 End: 11-24-2018 Patient encounter procedure [facility] Start: 11-10-2018 End: 11-15-2018 Patient encounter procedure [facility] Procedures Date Procedure Procedure Detail Performing Clinician Start: 04-21-2024 Urnls dip stick/tabl et rgnt non-auto w/o micrscp Herber Coto DO Work Phone: Start: 04-13-2024 Urnls dip [...] Phone: Start: 01-22-2024 ALL THYROID STIM HORMONE Herber Nnamdi DO Work Phone: Start: 01-11-2024 Urnls dip stick/tabl et rgnt non-auto w/o micrscp Herber Nnamdi DO Work Phone: Start: 07-13-2023 [...] ant neoplasm of cervix [facility] Start: 2024 Influenza vaccination Influenza Vacc ine (#1) [facility] Comment on above: Postponed from 12/26 (Patient Refused) Start: 05-09-2024 End: 05-09-2024 Patient encounter procedure 05/09/2024 3:50 PM EST Routine [facility] [address] [place] [id number] Tori Pepe, PA [address] [place] [address] [facility] Start: 05-03-2024 End: 05-03-2024 Patient encounter procedure 05/03/2024 4:40 PM EST Office Visit [facility] [address] [place] [address] Tori Martinez, IN[employer]ER [address] [place] [address] Need for follow-up care after discharge (Primary Dx) [facility] Comment on above: Need for follow-up c are after discharge (Primary Dx) Start: 04-21-2024 End: 04-21-2024 Patient encounter procedure 04/21/2024 8:30 AM EST Routine [facility] [address] [place] [address] Herber Coto DO [address] [facility] [place] [address] [facility] Start: 04-13-2024 End: 04-13-2024 Patient encounter procedure [facility] Comment on above: Arrived Start: 04-13-2024 End: 04-13-2025 US biophysical profile w non stress test US biophysical profile w non stress test Imaging Routine 28 weeks gestation of Second trimester Gestational diabetes mellitus (GDM), antepartum, gestational diabetes method of control unspecified Expected: 04/13/2024 (Approximate), Expires: 04/13/2025 [facility] Work Phone: Comment on above: Expected: 04/13/2024 (Approximate), Expires: 04/13/2025 Start: 04-06-2024 End: 04-06-2024 Patient encounter procedure 04/06/2024 3:20 PM EST Routine [facility] [address] [facility] [place] [phone] Tori Pepe, PA [address] [address] [facility] Start: 04-03-2024 End: 03-04-2025 US for US OB INCOMPLETE ANATOMY Imaging Routine Encounter for follow-up ultrasound of anatomy Expected: 04/03/2024 (Approximate), Expires: 03/04/2025 [facility] Work Phone: Comment on above: Expected: 04/03/2024 (Approximate), Expires: 03/04/2025 Start: 03-09-2024 End: 03-09-2024 Patient encounter procedure 03/09/2024 3:50 PM EST Routine [facility] [address] [facility] [place] [id number] Tori Pepe, PA [address] [place], [place] [id number] [facility] Start: 03-09-2024 End: 03-09-2025 [...] encounter procedure 02/10/2024 1:50 PM EDT Routine [facility] [address] [place] [phone] Herber Coto DO [address] [place] [address] [facility] Start: 01-11-2024 End: 01-11-2024 Patient encounter procedure 01/11/2024 3:50 PM EDT Routine [facility] [address] [facility] [place] [phone] Herber Coto, [address] [facility] [place] [address] Arrived [facility] Comment on above: Arrived Start: 12-27-2023 Influenza vaccination Influenza Vacc ine (#1) [facility] Start: 10-25-2023 Influenza vaccination Influenza Vacc ine (#1) [facility] Comment on above: Postponed from 12/26 (Patient Refused) Start: 10-25-2023 Screening for malign ant neoplasm of cervix [facility] Start: 07-17-2023 End: 07-17-2023 Patient encounter procedure 07/17/2023 8:00 AM EDT Office Visit [facility] [address] [place] [address] Tori Martinez, HERRERA [address] [place] [address] [facility] Start: 2014 Screening for malign ant neoplasm [...] (sexually transmitted disease) Vaginal discharge Ordered: 02/10/2024 [facility] Work Phone: Comment on above: Ordered: 02/10/2024 Thyrotropin [Units/volume] in Serum or Plasma TSH Lab Routine Other specified hypothyroidism (CMS/HCC) Ordered: 01/11/2024 [facility] Work Phone: Comment on above: Ordered: 01/11/2024 Thyrotropin [Units/volume] in Serum or Plasma TSH Lab Routine Hypothyroidism, unspecified type (CMS/HCC) Ordered: 04/13/2024 [facility] Comment on above: Ordered: 04/13/2024 Immunizations Immunization Date Immunization Notes Care Provider Byron carlson 05-05-2015 tetanus toxoid, redu catherine diphtheria toxoid, and acellular pertussis vaccine, adsorbed Tori Warchol [employer]ER Work Phone: [facility] 02-14-2009 influenza, seasonal, injectable Tori Warchol IN[employer]ER Work Phone: [facility] 02-14-2009 influenza virus vacc ine, unspecified formulation Tori Warchol IN[employer]ER Work Phone: [facility] 12-12-2005 hepatitis A vaccine, unspecified formulation Tori Warchol IN[employer]ER Work Phone: [facility] 12-12-2005 tetanus toxoid, redu catherine diphtheria toxoid, and acellular pertussis vaccine, adsorbed Tori Warchol IN[employer]UMENT [employer]ER Work Phone: [facility] 11-19-1998 diphtheria, tetanus toxoids and acellular pertussis vaccine, unspecified formulation Tori Warchol IN[employer]UMENT [employer]ER Work Phone: [facility] 11-19-1998 measles, mumps and rubella virus vaccine Tori Warchol IN[employer]ER Work Phone: [facility] 11-19-1998 trivalent poliovirus vaccine, live, oral Tori Warchol IN[employer]ER Work Phone: [facility] 09-14-1995 diphtheria, tetanus toxoids and acellular pertussis vaccine, unspecified formulation Tori Warchol IN[employer]ER Work Phone: [facility] 09-14-1995 haemophilus influenz ae type b vaccine, conjugate unspecified formulation Tori Warchol INSTRUMENT [employer]ER Work Phone: [facility] 11-20-1994 DTP-Haemophilus influenzae type b conjugate vaccine Tori Warchol IN[employer]ER Work Phone: [facility] 11-20-1994 hepatitis B vaccine, pediatric or pediatric/adolescent dosage Tori Warchol IN[employer]ER Work Phone: [facility] 11-20-1994 measles, mumps and rubella virus vaccine Tori Warchol IN[employer]UMENT [employer]ER Work Phone: [facility] 11-20-1994 trivalent poliovirus vaccine, live, oral Tori Warchol INSTRUMENT [employer]ER Work Phone: [facility] 09-18-1994 DTP-Haemophilus influenzae type b conjugate vaccine Tori Warchol INSTRUMENT [employer]ER Work Phone: [facility] 09-18-1994 hepatitis B vaccine, pediatric or pediatric/adolescent dosage Tori Warchol INSTRUMENT [employer]ER Work Phone: [facility] 09-18-1994 trivalent poliovirus vaccine, live, oral Tori Warchol INSTRUMENT [employer]ER Work Phone: [facility] 1993 diphtheria, tetanus toxoids and pertussis vaccine Tori Warchol INSTRUMENT [employer]ER Work Phone: [facility] 1993 haemophilus influenz ae type b vaccine, conjugate unspecified formulation Tori Warchol INSTRUMENT L[employer]ER Work Phone: [facility] 1993 hepatitis B vaccine, pediatric or pediatric/adolescent dosage Tori Warchol INSTRUMENT [employer]ER Work Phone: [facility] 1993 trivalent poliovirus vaccine, live, oral Tori Warchol IN[employer]UMENT [employer]ER Work Phone: [facility] Payers Date Payer Category Payer Self-pay [id number] 2023 Medicaid [id number] 2022 Blue Cross Blue Shield [id number] 2022 Unknown BCBS BCBS xxxxxx [id number] 2022-Present [phone] [address] [place] [address] [id number] 2017 Private Health Insurance [id number] 1993 Unknown [id number] 2.16.840.1.237676.3.579.2.1 76 1993 Unknown [id number] 2.16.840.1.092723.3.579.2.1 76 1993 Unknown [id number] 2.16.840.1.486425.3.579.2.5 93 1993 Unknown [id number] 2.16.840.1.855926.3.579.2.5 93 1993 Unknown [id number] 2.16.840.1.507847.3.579.2.5 93 1993 Unknown [id number] 2.16.840.1.645084.3.579.2.5 93 1993 Unknown [id number] 2.16.840.1.316290.3.579.2.5 93 1993 Unknown [id number] 2.16.840.1.103278.3.579.2.5 93 1993 Unknown [id number] 2.16.840.1.648432.3.579.2.5 93 1993 Unknown [id number] 2.16.840.1.046448.3.579.2.5 93 1993 Unknown [id number] 2.16.840.1.543081.3.579.2.5 93 1993 Unknown [id number] 2.16.840.1.033459.3.579.2.5 93 1993 Unknown [id number] 2.16.840.1.157062.3.579.2.5 93 1993 Unknown [id number] 2.16.840.1.454621.3.579.2.5 93 1993 Unknown [id number] 2.16.840.1.415381.3.579.2.5 93 1993 Unknown [id number] 2.16.840.1.665200.3.579.2.5 93 1993 Unknown [id number] 2.16840.1.231261.3.579.2.1 259 1993 Unknown [id number] 2.16840.1.997061.3.579.2.1 259 1993 Unknown [id number] 2.16840.1.288304.3.579.2.1 259 1993 Unknown [id number] 2.16840.1.700868.3.579.2.1 259 1993 Unknown [id number] 2.16840.1.914320.3.579.2.1 259 1993 Unknown [id number] 2.16840.1.247698.3.579.2.1 259 1993 Unknown [id number] 2.16840.1.594059.3.579.2.1 259 1993 Unknown [id number] 2.16.840.1.928944.3.579.2.1 259 1993 Unknown [id number] 2.16840.1.485328.3.579.2.1 259 1993 Unknown [id number] 2.16840.1.732141.3.579.2.1 259 1993 Unknown [id number] 2.16840.1.234684.3.579.2.1 259 1959 Self-pay [id number] 1959 Unknown [id number] 1959 Unknown [id number] 1959 Unknown [id number] Unknown [id number] 2.16.840.1.174780.3.579.2.5 93 Unknown HCAP/HFA/FAP Active [id number] Unknown [id number] 2.16.840.1.116027.3.579.2.5 31 Social History Date Type Detail Facility Start: 08-27-2016 End: 09-25-2022 Tobacco smoking status ARIS Never smoked tobacco [facility] Start: 09-25-2022 Tobacco use and exposure Smoke less tobacco non-user [facility] Start: 04-16-2023 End: 04-13-2024 Alcohol intake Current drinker of alcohol (finding) [facility] Start: 04-16-2023 End: 05-03-2024 Alcohol intake [facility] Start: 01-15-2023 End: 05-03-2024 Alcohol Use Disorder Identification Test - Consumption [AUDIT-C] [facility] How often to you hav e a drink containing alcohol? Monthly or less [facility] How many standard dr inks containing alcohol do you have on a typical day? Patient does not drink [facility] How often do you hav e 6 or more drinks on 1 occasion? Never [facility] Start: 1995 Sex Assigned At Female [facility] Start: 09-24-2022 Gender identity Identifies as female gender (finding) [facility] Start: 10-08-2023 [facility] Start: 05-03-2024 Alcoholic beverage intake Ex-drinker (finding) [facility] Medical Equipment Procedure Code Equipment Code Equipment Origin al Text Equipment Identifier Dates 1 strip by In Vi tro route Daily Use in the morning prior to breakfast, 1 hour after each meal for a total of 4times daily. [id number] Start: 03-21-2024 End: 04-20-2024 1 each by In Vit ro route Daily Use to check FSBS four times daily [id number] Start: 03-21-2024 End: 04-20-2024 Clinical Notes 06-02-2023 to 05-03-2024 Tori Martinez, HERRERA - 05/03/2024 4:40 PM ESTPatient Meaghanajay ReyesABBEY tian - 04/21/2024 8:30 AM FERN Chin - [...] - 9 Protein, UA Negative Negative - 2000(20) ++++ mg/dL Urobilinogen, UA [...] not improve . documented in this encounter [facility] 05-03-2024 Instructions Tori Martinez NP - 05/03/2024 4:40 PM EST PATIENT EDUCATION: ER follow-up The patient was seen today in follow-up of recent hospital ER/UC visit. All available records/labs/diagnostics were reviewed and discussed with the patient. ER/UC discharge meds were reviewed. Any changes to plan are noted above. documented in this encounter [facility] 04-21-2024 History of Presen [...] esophagitis 09/01/2022 Moderate persistent asthma without complication ([facility]) 09/01/2022 Hypothyroidism, unspecified ([facility]) 03/02/2020 Moderate asthma ([facility]) 01/11/2024 30 weeks gestation of 04/21/2024 Third trimester 04/21/2024 Resolved Ambulatory Problems Diagnosis Date Noted Acquired hypothyroidism ([facility]) 09/01/2022 Allergic rhinitis 09/01/2022 Amenorrhea 09/01/2022 Asthma without status asthmaticus ([facility]) 09/01/2022 Attention deficit hyperactivity disorder ([facility]) 09/01/2022 Asthma affecting , antepartum ([facility]) 09/01/2022 Binge eating disorder 09/01/2022 Difficulty concentrating 09/01/2022 Irregular menstrual cycle 09/01/2022 Left sided sciatica 09/01/2022 Insomnia 09/01/2022 Migraines ([facility]) 09/01/2022 Metallic taste 09/01/2022 Mild persistent asthma without complication ([facility]) 09/01/2022 MTHFR mutation 09/01/2022 Nondependent cannabis abuse 09/01/2022 Other chronic pain 09/01/2022 Seasonal allergies 09/01/2022 Skin sensation disturbance 09/01/2022 Transitory mood disturbance 09/01/2022 Verruca plantaris 09/01/2022 Past Medical History: Diagnosis Date Acid reflux ADHD (attention deficit hyperactivity disorder) ([facility]) Asthma ([facility]) GERD (gastroesophageal reflux disease) Hypothyroid ([facility]) Lactose intolerance Marijuana use Migraine ([facility]) Mild persistent asthma, uncomplicated ([facility]) Supervision of normal Thyroid disease ([facility]) HISTORY PAST MEDICAL HISTORY SOCIAL HISTORY Past Medical History: Diagnosis Date Acid reflux ADHD (attention deficit hyperactivity disorder) ([facility]) Asthma ([facility]) Asthma affecting , antepartum (CMS/HCC) GERD (gastroesophageal [...] 2008 Plica band removal, left knee arthroscopy HI BREAST REDUCTION 10/2018 TONSILLECTOMY 1998 REVIEW OF [...] nursing note reviewed. Exam conducted with a supervisor composing room present. Vitals: Estimated body mass index is [...] this encounter [facility] 04-13-2024 History of Presen [...] esophagitis 09/01/2022 Moderate persistent asthma without complication ([facility]) 09/01/2022 Hypothyroidism, unspecified ([facility]) 03/02/2020 Moderate asthma ([facility]) 01/11/2024 Resolved Ambulatory Problems Diagnosis Date Noted Acquired hypothyroidism ([facility]) 09/01/2022 Allergic rhinitis 09/01/2022 Amenorrhea 09/01/2022 Asthma without status asthmaticus ([facility]) 09/01/2022 Attention deficit hyperactivity disorder ([facility]) 09/01/2022 Asthma affecting , antepartum ([facility]) 09/01/2022 Binge eating disorder 09/01/2022 Difficulty [...] Acid reflux ADHD (attention deficit hyperactivity disorder) (CMS/HCC) Asthma (CMS/HCC) GERD (gastroesophageal reflux disease) Hypothyroid (CMS/HCC) Lactose intolerance Marijuana use Migraine (CMS/HCC) Mild persistent asthma, uncomplicated (CMS/HCC) Supervision of normal Thyroid disease ([facility]/HCC) HISTORY PAST MEDICAL HISTORY SOCIAL HISTORY Past Medical History: Diagnosis Date Acid reflux ADHD (attention deficit hyperactivity disorder) (CMS/HCC) Asthma (CMS/HCC) Asthma affecting , antepartum (CMS/HCC) GERD (gastroesophageal reflux disease) Hypothyroid (CMS/HCC) Lactose intolerance Marijuana use Migraine (CMS/HCC) Mild persistent asthma, uncomplicated ([facility]) MTHFR mutation Seasonal allergies Supervision of normal Thyroid disease ([facility]) Social History Tobacco Use Smoking status: [...] 2008 Plica band removal, left knee arthroscopy HI BREAST REDUCTION 10/2018 TONSILLECTOMY 1998 REVIEW OF [...] this encounter [facility] 04-06-2024 History of Presen [...] esophagitis 09/01/2022 Moderate persistent asthma without complication ([facility]) 09/01/2022 Hypothyroidism, unspecified ([facility]) 03/02/2020 Moderate asthma ([facility]) 01/11/2024 Resolved Ambulatory Problems Diagnosis Date Noted Acquired hypothyroidism ([facility]) 09/01/2022 Allergic rhinitis 09/01/2022 Amenorrhea 09/01/2022 Asthma without status asthmaticus ([facility]) 09/01/2022 Attention deficit hyperactivity disorder ([facility]) 09/01/2022 Asthma affecting , antepartum ([facility]) 09/01/2022 Binge eating disorder 09/01/2022 Difficulty concentrating 09/01/2022 Irregular menstrual cycle 09/01/2022 Left sided sciatica 09/01/2022 Insomnia 09/01/2022 Migraines ([facility]) 09/01/2022 Metallic taste 09/01/2022 Mild persistent asthma without complication ([facility]) 09/01/2022 MTHFR mutation 09/01/2022 Nondependent cannabis abuse 09/01/2022 Other chronic pain 09/01/2022 Seasonal allergies 09/01/2022 Skin sensation disturbance 09/01/2022 Transitory mood disturbance 09/01/2022 Verruca plantaris 09/01/2022 Past Medical History: Diagnosis Date Acid reflux ADHD (attention deficit hyperactivity disorder) ([facility]) Asthma ([facility]) GERD (gastroesophageal reflux disease) Hypothyroid ([facility]) Lactose intolerance Marijuana use Migraine ([facility]) Mild persistent asthma, uncomplicated ([facility]) Supervision of normal Thyroid disease ([facility]) HISTORY PAST MEDICAL HISTORY SOCIAL HISTORY Past Medical History: Diagnosis Date Acid reflux ADHD (attention deficit hyperactivity disorder) ([facility]) Asthma ([facility]) Asthma affecting , antepartum ([facility]) GERD (gastroesophageal reflux disease) Hypothyroid ([facility]) Lactose intolerance Marijuana use Migraine ([facility]) Mild persistent asthma, uncomplicated ([facility]) MTHFR mutation Seasonal allergies Supervision of normal Thyroid disease ([facility]) Social History Tobacco Use Smoking status: [...] 2008 Plica band removal, left knee arthroscopy HI BREAST REDUCTION 10/2018 TONSILLECTOMY 1998 REVIEW OF [...] encounter [facility] 03-09-2024 History of Presen [...] esophagitis 09/01/2022 Moderate persistent asthma without complication ([facility]) 09/01/2022 Hypothyroidism, unspecified ([facility]) 03/02/2020 Moderate asthma ([facility]) 01/11/2024 Resolved Ambulatory Problems Diagnosis Date Noted Acquired hypothyroidism ([facility]) 09/01/2022 Allergic rhinitis 09/01/2022 Amenorrhea 09/01/2022 Asthma without status asthmaticus ([facility]) 09/01/2022 Attention deficit hyperactivity disorder ([facility]) 09/01/2022 Asthma affecting , antepartum ([facility]) 09/01/2022 Binge eating disorder 09/01/2022 Difficulty concentrating 09/01/2022 Irregular menstrual cycle 09/01/2022 Left sided sciatica 09/01/2022 Insomnia 09/01/2022 Migraines ([facility]) 09/01/2022 Metallic taste 09/01/2022 Mild persistent asthma without complication ([facility]) 09/01/2022 MTHFR mutation 09/01/2022 Nondependent cannabis abuse 09/01/2022 Other chronic pain 09/01/2022 Seasonal allergies 09/01/2022 Skin sensation disturbance 09/01/2022 Transitory mood disturbance 09/01/2022 Verruca plantaris 09/01/2022 Past Medical History: Diagnosis Date Acid reflux ADHD (attention deficit hyperactivity disorder) ([facility]) Asthma ([facility]) GERD (gastroesophageal reflux disease) Hypothyroid ([facility]) Lactose intolerance Marijuana use Migraine ([facility]) Mild persistent asthma, uncomplicated ([facility]) Supervision of normal Thyroid disease ([facility]) HISTORY PAST MEDICAL HISTORY SOCIAL HISTORY Past Medical History: Diagnosis Date Acid reflux ADHD (attention deficit hyperactivity disorder) ([facility]) Asthma ([facility]) Asthma affecting , antepartum ([facility]) GERD (gastroesophageal reflux disease) Hypothyroid ([facility]) Lactose intolerance Marijuana use Migraine ([facility]) Mild persistent asthma, uncomplicated ([facility]) MTHFR mutation Seasonal allergies Supervision of normal Thyroid disease ([facility]) Social History Tobacco Use Smoking status: [...] 2008 Plica band removal, left knee arthroscopy HI BREAST REDUCTION 10/2018 TONSILLECTOMY 1998 REVIEW OF [...] esophagitis 09/01/2022 Moderate persistent asthma without complication ([facility]) 09/01/2022 Hypothyroidism, unspecified ([facility]) 03/02/2020 Moderate asthma ([facility]) 01/11/2024 Resolved Ambulatory Problems Diagnosis Date Noted Acquired hypothyroidism ([facility]) 09/01/2022 Allergic rhinitis 09/01/2022 Amenorrhea 09/01/2022 Asthma without status asthmaticus ([facility]) 09/01/2022 Attention deficit hyperactivity disorder ([facility]) 09/01/2022 Asthma affecting , antepartum ([facility]) 09/01/2022 Binge eating disorder 09/01/2022 Difficulty concentrating 09/01/2022 Irregular menstrual cycle 09/01/2022 Left sided sciatica 09/01/2022 Insomnia 09/01/2022 Migraines (CMS/HCC) 09/01/2022 Metallic taste 09/01/2022 Mild persistent asthma without complication ([facility]/HCC) 09/01/2022 MTHFR mutation 09/01/2022 Nondependent cannabis abuse 09/01/2022 Other chronic pain 09/01/2022 Seasonal allergies 09/01/2022 Skin sensation disturbance 09/01/2022 Transitory mood disturbance 09/01/2022 Verruca plantaris 09/01/2022 Past Medical History: Diagnosis Date Acid reflux ADHD (attention deficit hyperactivity disorder) ([facility]) Asthma ([facility]/HCC) GERD (gastroesophageal reflux disease) Hypothyroid ([facility]) Lactose intolerance Marijuana use Migraine ([facility]/HCC) Mild persistent asthma, uncomplicated ([facility]) Supervision of normal Thyroid disease ([facility]) HISTORY PAST MEDICAL HISTORY SOCIAL HISTORY Past Medical History: Diagnosis Date Acid reflux ADHD (attention deficit hyperactivity disorder) ([facility]) Asthma ([facility]/HCC) Asthma affecting , antepartum ([facility]) GERD (gastroesophageal reflux disease) Hypothyroid ([facility]) Lactose intolerance Marijuana use Migraine ([facility]/HCC) Mild persistent asthma, uncomplicated ([facility]) MTHFR mutation Seasonal allergies Supervision of normal Thyroid disease ([facility]) Social History Tobacco Use Smoking status: [...] 2008 Plica band removal, left knee arthroscopy HI BREAST REDUCTION 10/2018 TONSILLECTOMY 1998 REVIEW OF [...] this encounter [facility] 01-11-2024 History of Presen [...] esophagitis 09/01/2022 Moderate persistent asthma without complication ([facility]) 09/01/2022 Hypothyroidism, unspecified ([facility]) 03/02/2020 Resolved Ambulatory Problems Diagnosis Date Noted Acquired hypothyroidism ([facility]) 09/01/2022 Allergic rhinitis 09/01/2022 Amenorrhea 09/01/2022 Asthma without status asthmaticus ([facility]) 09/01/2022 Attention deficit hyperactivity disorder ([facility]) 09/01/2022 Asthma affecting , antepartum ([facility]) 09/01/2022 Binge eating disorder ([facility]) 09/01/2022 Difficulty concentrating 09/01/2022 Irregular menstrual cycle 09/01/2022 Left sided sciatica 09/01/2022 Insomnia 09/01/2022 Migraines ([facility]) 09/01/2022 Metallic taste 09/01/2022 Mild persistent asthma without complication ([facility]) 09/01/2022 MTHFR mutation 09/01/2022 Nondependent cannabis abuse 09/01/2022 Other chronic pain 09/01/2022 Seasonal allergies 09/01/2022 Skin sensation disturbance 09/01/2022 Transitory mood disturbance 09/01/2022 Verruca plantaris 09/01/2022 Past Medical History: Diagnosis Date Acid reflux ADHD (attention deficit hyperactivity disorder) ([facility]) Asthma ([facility]) GERD (gastroesophageal reflux disease) Hypothyroid ([facility]) Lactose intolerance Marijuana use Migraine ([facility]) Mild persistent asthma, uncomplicated ([facility]) Supervision of normal Thyroid disease ([facility]) HISTORY PAST MEDICAL HISTORY SOCIAL HISTORY Past Medical History: Diagnosis Date Acid reflux ADHD (attention deficit hyperactivity disorder) ([facility]) Asthma ([facility]) Asthma affecting , antepartum ([facility]) GERD (gastroesophageal reflux disease) Hypothyroid ([facility]) Lactose intolerance Marijuana use Migraine ([facility]) Mild persistent asthma, uncomplicated ([facility]) MTHFR mutation Seasonal allergies Supervision of normal Thyroid disease ([facility]) Social History Tobacco Use Smoking status: Never [...] 2008 Plica band removal, left knee arthroscopy HI BREAST REDUCTION 10/2018 TONSILLECTOMY 1998 REVIEW OF [...] nursing note reviewed. Exam conducted with a supervisor composing room present. Vitals: Estimated body mass index is [...] or undercooked meat, and stay away from [facility]. Patient has been consulted regarding any [...] done she will reach out to office. Patching Machine Operator will be notified at time of delivery [...] . Informed patient since she sees a Inset Cutter to schedule appointment to make sure asthma is controlled during . Patient is currently taking [employer] Chewable kids vitamins. Patient is taking 2 [...] Patient requesting refill/[place] documented in this encounter [facility] 06-02-2023 Telephone encount er Note Patient requesting refill/[place] [facility] Evaluation note Diagnosis Attention deficit hyperactivity disorder (ADHD), combined type (CMS/HCC) documented in this encounter [facility] HealthcareEvaluation noteNo assessment information available[facility] Work Phone: Evaluation note* Diagnosis Well woman exam with routine gynecological exam Routine gynecological examination Screening, , for anatomic survey Encounter for anatomic survey Second trimester state, incidental 19 weeks gestation of Screen for STD (sexually transmitted disease) Screening examination for venereal disease Vaginal discharge Leukorrhea, not specified as infective headache in second trimester documented in this encounter [facility] HealthcareEvaluation note* Diagnosis Encounter for follow-up ultrasound of anatomy Second trimester state, incidental 23 weeks gestation of Hypothyroidism, unspecified type (CMS/HCC) Diabetes mellitus screening Screening for diabetes mellitus Anxiety, generalized (CMS/HCC) documented in this encounter [facility] HealthcareEvaluation note* Diagnosis Second trimester state, incidental 27 weeks gestation of documented in this encounter [facility] HealthcareEvaluation note* Diagnosis Second trimester state, incidental Other specified hypothyroidism (CMS/HCC) Moderate asthma, unspecified whether complicated, unspecified whether persistent (CMS/HCC) documented in this encounter [facility] HealthcareEvaluation note* Diagnosis 28 weeks gestation of Second trimester state, incidental Gestational diabetes mellitus (GDM), antepartum, gestational diabetes method of control unspecified Anxiety, generalized (CMS/HCC) Nausea Nausea alone Hypothyroidism, unspecified type (CMS/HCC) documented in this encounter [facility] HealthcareEvaluation note* Diagnosis 30 weeks gestation of Third trimester state, incidental documented in this encounter [facility] HealthcareEvaluation note* Diagnosis Need for follow-up care after discharge- Primary documented in this encounter [facility] Healthcare Summary Purpose Family History No [...] section and content) DATE CREATED AUTHOR 11/18/2018 [facility] DATE CREATED AUTHOR AUTHOR'S ORGANIZ ATION 11/26/2018 [facility] DATE CREATED AUTHOR AUTHOR'S ORGANIZ ATION 09/09/2022 [facility] DATE CREATED AUTHOR AUTHOR'S ORGANIZ ATION 03/16/2024 [facility] DATE CREATED AUTHOR AUTHOR'S ORGANIZ ATION 05/09/2024 [facility] d[facility] Special[facility] EPIC Reason for Visit (unrecogniz ed section and content) Reason Onset Date Comments Med Refill 06/02/2023 Reason Comments Routine Visit Care Teams (unrecognized sec tion and content) Group Cio Relationship Specialty Start Date End Date Carlos Alberto Coleman MD [address] [place] [address] PCP - General Family Medicine 09/24/22 Tori Martinez INSTRUMENT LENS GRINDER [address] [place] [address] Nurse Practitioner Family Medicine 09/24/22 Sofie Gr NP [address] [place] [address] Nurse Practitioner Pulmonary Disease 04/14/23 Team Status: Active Member Role Status Dates Carlos Alberto Coleman MD Primary Care Provider Active Team Status: Inactive Member Role Status Dates Carlos Alberto Coleman MD Primary Care Provider Active S tart: July 13, 2023 End: July 13, 2023 Sofie Gr NP-C Attending Provider Active Start: July 13, 2023 End: July 13, 2023 Group Cio Relationship Specialty Start Date End Date Carlos Alberto Coleman MD [address] [place] [address] PCP - General Family Medicine 09/24/22 Tori Martinez INSTRUMENT LENS GRINDER [address] [place] [address] PCP - [employer] 05/28/23 Tori Martinez NP [address] [place] [address] Nurse Practitioner Family Medicine 09/24/22 Sofie Gr NP [address] [place] [address] Nurse Practitioner Pulmonary Disease 04/14/23 Group Cio Relationship Specialty Start Date End Date Carlos Alberto Coleman MD [address] [place] [address] PCP - General Family Medicine 09/24/22 Tori Martinez NP [address] [place] [address] PCP - [employer] 05/28/23 Tori Martinez NP [address] [place] [address] Nurse Practitioner Family Medicine 09/24/22 Sofie Gr NP [address] [place] [address] Nurse Practitioner Pulmonary Disease 04/14/23 Group Cio Relationship Specialty Start Date End Date Carlos Alberto Coleman MD [address] [place] [address] PCP - General Family Medicine 09/24/22 Tori Martinez NP [address], [facility] PCP - [employer] 05/28/23 Tori Martinez NP [address] [place] [address] Nurse Practitioner Family Medicine 09/24/22 Sofie Gr NP [address] [place] [phone] Nurse Practitioner Pulmonary Disease 04/14/23 Group Cio Relationship Specialty Start Date End Date Carlos Alberto Coleman MD [address] [place] [address] PCP - General Family Medicine 09/24/22 Tori Martinez NP [address] [place] [id number] PCP - [employer] 05/28/23 Tori Martinez NP [address] [place] [address] Nurse Practitioner Family Medicine 09/24/22 Sofie Gr NP [address] [place] [address] Nurse Practitioner Pulmonary Disease 04/14/23 Group Cio Relationship Specialty Start Date End Date Carlos Alberto Coleman MD [address] [place] [address] PCP - General Family Medicine 09/24/22 Tori Martinez INSTRUMENT LENS GRINDER [address] [place] [address] PCP - [employer] 05/28/23 Tori Martinez, INSTRUMENT LENS GRINDER [address] [place] [address] Nurse Practitioner Family Medicine 09/24/22 Sofie Gr, INSTRUMENT LENS GRINDER [address] [place] [phone] Nurse Practitioner Pulmonary Disease 04/14/23 Group Cio Relationship Specialty Start Date End Date Carlos Alberto Coleman MD [address] [place] [address] PCP - General Family Medicine 09/24/22 Tori Martinez, INSTRUMENT LENS GRINDER [address] [place] [phone] PCP - [employer] 05/28/23 Tori Martinez NP [address] [place] [address] Nurse Practitioner Family Medicine 09/24/22 Sofie Gr, INSTRUMENT LENS GRINDER [address] [place] [phone] Nurse Practitioner Pulmonary Disease 04/14/23 Group Cio Relationship Specialty Start Date End Date Carlos Alberto Coleman MD [address] [place] [address] PCP - General Family Medicine 09/24/22 Tori Martinez NP [address] [place] [address] PCP - [employer] 05/28/23 Tori Martinez NP [address] [place] [address] Nurse Practitioner Family Medicine 09/24/22 Sofie Gr NP [address] [place] [address] Nurse Practitioner Pulmonary Disease 04/14/23 Group Cio Relationship Specialty Start Date End Date Carlos Alberto Coleman MD [address] [place] [address] PCP - General Family Medicine 09/24/22 Tori Martinez NP [address] [place] [address] PCP - [employer] 05/28/23 Tori Martinez NP [address] [place] [address] Nurse Practitioner Family Medicine 09/24/22 Sofie Gr NP [address] [place] [address] Nurse Practitioner Pulmonary Disease 04/14/23 Group Cio Relationship Specialty Start Date End Date Carlos Alberto Coleman MD [address] [place] [address] PCP - General Family Medicine 09/24/22 Tori Martinez NP [address] [place] [address] PCP - [employer] 05/28/23 Tori Martinez NP [address] [place] [address] Nurse Practitioner Family Medicine 09/24/22 Sofie Gr NP [address] [place] [phone] Nurse Practitioner Pulmonary Disease 04/14/23 Group Cio Relationship Specialty Start Date End Date Carlos Alberto Coleman MD [address] [place] [address] PCP - General Family Medicine 09/24/22 Tori Martinez NP [address] [place] [address] PCP - [employer] 05/28/23 Tori Martinez NP [address] [place] [address] Nurse Practitioner Family Medicine 09/24/22 Sofie Gr NP [address] [place] [phone] Nurse Practitioner Pulmonary Disease 04/14/23 Group Cio Relationship Specialty Start Date End Date Carlos Alberto Coleman MD [address] [place] [address] PCP - General Family Medicine 09/24/22 Tori Martinez NP [address] [place] [address] PCP - [employer] 05/28/23 Tori Martinez NP [address] [place] [address] Nurse Practitioner Family Medicine 09/24/22 Sofie Gr NP [address] [place] [address] Nurse Practitioner Pulmonary Disease 04/14/23 Group Cio Relationship Specialty Start Date End Date Carlos Alberto Coleman MD [address] [place] [place] [address] PCP - General Family Medicine 09/24/22 Tori Martinez NP [address] [place] [address] PCP - [facility] 05/28/23 Tori Martinez NP [address] [place] [address] Nurse Practitioner Family Medicine 09/24/22 Sofie Gr NP [address] [place] [address] Nurse Practitioner Pulmonary Disease 04/14/23 Goals (unrecognized [...] BE BASED ON THE PRIMARY CLINICAL RECORDS. [email or web address] [email or web address]. provides no warranty or guarantee of the accuracy or completeness of information in this document.
--- NOTE | 2024-05-09 18:58 | US_ITS ---
[place] [id number] Patient Name: JULIÁN JIMENEZ MRN: [id number] date: 1995 Sex: F Assigned Patient Location: US Current Patient Location: US Accession/Order Number: [id number] Exam Date: 05/09/2024 19:06 Report Date: 05/09/2024 23:02 At the request of: DEE PEPE Procedure: US OB growth EXAMINATION: US OB growth HISTORY: HYPOTHYROIDISM E03.9 COMPARISON: Ultrasound OB growth 04/08/2024 FINDINGS: Heart Rate: 133.66 bpm Amniotic Fluid Volume: 12.8 cm; normal range. Number: 1 Position: CEPHALIC BIOMETRY: BPD: 8.18 cm; 32 weeks 6 days; 52.20 % HC: 30.47 cm; 33 weeks 6 days; 47.70 % AC: 28.56 cm; 32 weeks 4 days; 50.30 % FL: 6.15 cm; 31 weeks 6 days; 21.50 % EFW: 1997.91 g; 39 % FL/AC: 21.55 FL/BPD: 75.21 HC/AC: 1.07 GESTATIONAL AGE: Age by EDC: 32 weeks 4 days SERENA by EDC: 2024-06-30 Age by US: 32 weeks 6 days SERENA by US: 2024-06-28 US/US OB growth IMPRESSION: 1. Single live intrauterine with growth detailed above. Electronically authenticated by: YAAKOV TERAN Date: 05/09/2024 23:02
--- NOTE | 2024-05-09 18:59 | US_ITS ---
[place] [id number] Patient Name: JULIÁN JIMENEZ MRN: [facility]:[id number] date: 1995 Sex: F [place] [facility] [place]: Accession/Order Number: [id number] Exam Date: 05/09/2024 19:06 Report Date: 05/09/2024 23:01 At the request of: DEE PEPE Procedure: US OB BPP w non-stress EXAMINATION: US OB BPP w non-stress HISTORY:GESTATIONAL DIABETES MELLITUS O24.419 COMPARISON: Ultrasound OB growth 05/09/2024 TECHNIQUE: Ultrasound biophysical profile was performed in the radiology department. BREATHING MOVEMENTS: 2 GROSS BODY MOVEMENTS: 2 TONE: 2 QUALITATIVE AMNIOTIC FLUID VOLUME: 2 PRESENTATION: CEPHALIC HEART RATE: 133.66 bpm AMNIOTIC FLUID VOLUME: 12.80 cm GESTATIONAL AGE: 32 weeks 4 days US/US OB BPP w non-stress IMPRESSION: Total biophysical profile score: 8 Electronically authenticated by: YAAOKV TERAN Date: 05/09/2024 23:01
== END 2024-05-09 18:52 | disposition home or self-care (01) ==
LOC: US 18:52
PROVIDERS: PCP Family Medicine; Visit Provider Physician Assistant
DX: O99.283 Endocrine, nutritional and metabolic diseases complicating pregnancy, third trimester (principal); O24.419 Gestational diabetes mellitus in pregnancy, unspecified control; E03.9 Hypothyroidism, unspecified; Z3A.32 32 weeks gestation of pregnancy
CPT/HCPCS: 76816; 76818

== ENCOUNTER 2024-05-12 01:03 | Outpatient (OUT) | payer BC, MEDICAID, SELFPAY ==
--- OUTSIDE RECORDS SUMMARY | 2024-05-12 01:06 | XMS_ITS | CCD ---
Author Organization [facility] Care Team Providers Care Product Engineering Manager Name Role Phone RENEE, MODE R Referring [...] Consulting Unavailable KIEPERT, ÁNGEL Consulting Unavailable KIEPERT, ÁNEGL Primary Care Unavailable KIEPERT, ÁNGEL Attending Unavailable KIEPERT, ÁNGEL Admitting Unavailable [place], DR DEANNA Lance Consulting Unavailable PAY ., [...] Unavailable KARASIK ., DR ZALDIVAR Procedure Practitioner Saiad vailable MISC, DR OLSON Consulting Unavailable KIEPERT, [...] Alberto Coleman MD Primary Care Provider Kylee EMPLOYMENT CLERK, Tori Unavailable Maile EMPLOYMENT CLERK, Sofie R Unavailable [phone] MD Carlos Alberto Coleman Primary Care Provider [phone] HEATHER [address] Attending Provider Maile EMPLOYMENT CLERK, Sofie R Unavailable Kylee EMPLOYMENT CLERK, Tori Unavailable Sofie Gr Attending Unavailable Sofie [...] source) Cefuroxime Drug Allergy 04-04-20 22 [facility] (2 sources) Ciprofloxacin Drug Allergy 04-03-20 16 [facility] (2 sources) Doxycycline Drug Allergy 05-20-19 21 vomiting [facility] (1 source) Flupenthixol Drug Allergy 04-04-20 22 [facility] (20 sources) Cefuroxime Drug Allergy 05-20-19 21 Rash [facility] (20 sources) Ciprofloxacin Drug Allergy 09-02-19 23 Shortness of breath [facility] (20 sources) Ciprofloxacin Drug Allergy 09-02-19 23 Shortness of breath [facility] (20 sources) cloNIDine Drug Allergy 03-14-20 21 [facility] (20 sources) cloNIDine Drug Allergy 09-02-19 23 [facility] (20 sources) Doxycycline Drug Allergy 05-20-19 21 GI intolerance [facility] (20 sources) Gluten Propensity to adverse reactions 11-11-19 19 [facility] (20 sources) Lactose (non-medical use) Allergy to substance 09-02-19 23 [facility] (20 sources) Lactose (non-medical use) Drug Intolerance 11-11-19 19 [facility] (20 sources) Octacosanol Drug Intolerance 11-11-19 19 [facility] (20 sources) Other Allergy to substance 11-11-19 19 [facility] (20 sources) Silver Allergy to substance 09-02-19 23 [facility] (20 sources) Wound Dressing Adhesive Drug Allergy 09-02-19 23 [facility] (1 source) Cefuroxime Drug Allergy 05-20-19 21 [facility] (1 source) Ciprofloxacin Drug Allergy 05-20-19 21 [facility] (1 source) Doxycycline Drug Allergy 05-20-19 21 [facility] Medications Current Medications Medication Drug Class(es) Dates Sig (Normalized) Sig (Original) [id number] 200 actuat albuterol 0.09 mg/actuat metered dose [...] Glucose Monitoring Suppl (D-Care Glucometer) w/Device kit (15 sources) Start: 03-21-2024 End: 03-21-2025 Blood Glucose [...] 03/21/2025 Active citalopram 10 mg oral tablet (18 sources) Serotonin Reuptake Inhibitor Start: 03-10-2024 End: [...] Active isopropyl alcohol 0.7 ml/ml medicated pad (15 sources) Start: Alcohol Swabs (Alcohol Prep Pad) [...] time 90 tablet 1 04/16/2023 10/13/2023 Active Magnesium (11 sources) take 1 capsule by mouth once daily Magnesium 400 MG capsule Take 400 mg by mouth Daily Active montelukast 10 mg oral tablet (20 sources) Leukotriene Receptor Antagonist Start: End: take 1 tablet by mouth at bedtime [...] 10/13/2023 Active ondansetron 4 mg oral tablet (11 sources) Serotonin-3 Receptor Antagonist Start: 04-13-2024 take [...] Take 600 mg by mouth. 04/13/2024 Discontinued loperamide hydrochloride 2 mg oral capsule (20 sources) Opioid Agonist End: 05-09-2024 loperamide (Imodium) 2 MG capsule Take 2 mg by mouth. 05/09/2024 Discontinued magnesium oxide 400 mg oral tablet [...] of ] 04-13-2024 Episodic Residual codes; unclassified (10 sources) Gestation period, 30 weeks; Translations: [30 weeks gestation of ] Onset: 04-21-2024 04-21-2024 Episodic Residual codes; unclassified (2 sources) Gestation period, 32 weeks; Translations: [32 weeks gestation of ] 05-09-2024 Episodic Thyroid disorders (20 sources) Hypothyroidism, unspecified; [...] Range Facility Urinalysis macro (dipstick) panel (U)on 05-09-2024 Bilirubin, UA Negative Negative - 4(70) +++ mg/dL [facility] Blood, UA Negative Negative - 50 Mendel/mcL [facility] Clarity, UA Clear [facility] Color, UA Yellow [facility] Glucose, UA Negative Negative - 1999(110) ++++ mg/dL [facility] Interpretation and review of laboratory results Abnormal [facility] Ketones, UA Negative Negative - 160(16) ++++ mg/dL [facility] Leukocytes, UA Positive Negative - 500+++ Leighann/mcL [facility] Comment on above: small Nitrite, UA Negative Negative - Positive [facility] pH, UA 6 5 - 9 [facility] Protein, UA Negative Negative - 1999(20) ++++ mg/dL [facility] Spec Grav, UA 1.03 1 - 1.03 [facility] Urobilinogen, UA 1.0 0.2 - 12 mg/dL [facility] Urinalysis macro (dipstick) panel (U)on 04-21-2024 Bilirubin, UA Negative Negative - 4(70) +++ mg/dL [facility] Blood, UA Negative Negative - 50 Mendel/mcL [facility] Clarity, UA Clear [facility] Color, UA Light Yellow [facility] Glucose, UA Negative Negative - 1999(110) ++++ mg/dL [facility] Interpretation and review of laboratory results Normal [facility] Ketones, UA Negative Negative - 160(16) ++++ mg/dL [facility] Leukocytes, UA Few Negative - 500+++ Leighann/mcL [facility] Nitrite, UA Negative Negative - Positive [facility] pH, UA 5.5 5 - 9 [facility] Protein, UA Trace Negative - 1999(20) ++++ mg/dL [facility] Spec Grav, UA 1.03 1 - 1.03 [facility] Urobilinogen, UA 0.2 0.2 - 12 mg/dL [facility] Urinalysis macro (dipstick) panel (U)on 04-13-2024 Bilirubin, UA Negative Negative - 4(70) +++ mg/dL [facility] Blood, UA Negative Negative - 50 Mendel/mcL [facility] Clarity, UA Clear [facility] Color, UA Yellow [facility] Glucose, UA Negative Negative - 1999(110) ++++ mg/dL [facility] Interpretation and review of laboratory results Normal [facility] Ketones, UA Negative Negative - 160(16) ++++ mg/dL [facility] Leukocytes, UA Negative Negative - 500+++ Leighann/mcL [facility] Nitrite, UA Negative Negative - Positive [facility] pH, UA 5.5 5 - 9 [facility] Protein, UA Negative Negative - 1999(20) ++++ mg/dL [facility] Spec Grav, UA 1.03 1 - 1.03 [facility] Urobilinogen, UA 0.2 0.2 - 12 mg/dL [facility] Urinalysis macro (dipstick) panel (U)on 04-06-2024 Bilirubin, UA Negative Negative - 4(70) +++ mg/dL [facility] Blood, UA Negative Negative - 50 Mendel/mcL [facility] Clarity, UA Clear [facility] Color, UA Yellow [facility] Glucose, UA Negative Negative - 1999(110) ++++ mg/dL [facility] Interpretation and review of laboratory results Normal [facility] Ketones, UA Negative Negative - 160(16) ++++ mg/dL [facility] Leukocytes, UA Negative Negative - 500+++ Leighann/mcL [facility] Nitrite, UA Negative Negative - Positive [facility] pH, UA 6 5 - 9 [facility] Protein, UA Negative Negative - 1999(20) ++++ mg/dL [facility] Spec Grav, UA 1.015 1 - 1.03 [facility] Urobilinogen, UA 0.2 0.2 - 12 mg/dL [facility] ALL CBC WITH AUTO DIFFon BASOPHILS ABSOLUTE AUTO 0 [facility] Basophils/100 WBC (Bld) 0.2 % 0.2 - 2.0 % [facility] Eosinophils/100 WBC (Bld) 0.7 % Low 0.9 - 7.0 % [facility] Erythrocyte distribution width (RBC) [Ratio] 12.3 % 11.0 - 15.0 % [facility] Hematocrit (Bld) [Volume fraction] 35.3 % Low 36.0 - 48.0 % [facility] Hemoglobin (Bld) [Mass/Vol] 11.8 g/dL Low 12.0 - 16.0 g/dL [facility] IMMATURE GRANULOCYTES ABS AUTO 0.04 High [facility] Immature granulocytes/100 WBC (Bld) 0.5 % 0.0 - 0.5 % [facility] Interpretation and review of laboratory results Abnormal [facility] LYMPHOCYTES ABSOLUTE AUTO 1.5 [facility] Lymphocytes/100 WBC (Bld) 17.1 % Low 20.5 - 60.0 % [facility] MCH (RBC) [Entitic mass] 31.1 pg 26.7 - 34.0 pg [facility] MCHC (RBC) [Mass/Vol] 33.4 g/dL 29.9 - 35.2 g/dL [facility] MCV (RBC) [Entitic vol] 93.1 fL 81.0 - 99.0 fL [facility] MONOCYTES ABSOLUTE AUTO 0.6 [facility] Monocytes/100 WBC (Bld) 7.2 % 1.7 - 12.0 % [facility] NEUTROPHILS ABSOLUTE AUTO 6.5 [facility] Neutrophils/100 WBC (Bld) 74.3 % 43.0 - 75.0 % [facility] Platelet mean volume (Bld) [Entitic vol] 10.6 fL 9.5 - 13.5 fL [facility] TBH EO # 0.1 [facility] TB PLT 178 [facility] RBC 3.79 Low [facility] WBC 8.8 [facility] IGP,APTIMA HPV,AGE GDLNon AGE GDLN ACOG TESTING Note . [facility] Comment on above: TESTS RESULT FLAG UN ITS REF RANGE LAB Clinician Provided Cytology Information Source.............Cervix No. of containers..01 ThinPrep Vial Age Algo ACOG Sonja... FLAG LEGEND: L-Low Normal,H-High Normal,LL-Alert Low,HH-Alert High <-Panic Low,>-Panic High,A-Abnormal,AA-Critical Abnormal Performed at: 01 =[address] [id number] Radha Browne MD, HPV APTIMA Negative Negative [facility] Comment on above: This nucleic acid am plification test detects fourteen high- risk HPV types (16,18,31,33,35,39,45,51,52,56,58,59,66,68) without differentiation. Performed at: =[address] [id number] Lead Principal Technical Architect: Radha Browne MD, Phone: [phone] Performed at: [address] [id number] Lead Principal Technical Architect: Radha Browne MD, Phone: [phone] IGP, APTIMA HPV, RFX 16/18,45 Note . [facility] Comment on above: TESTS RESULT FLAG UN ITS REF RANGE LAB DIAGNOSIS: 02 NEGATIVE FOR INTRAEPITHELIAL LESION OR MALIGNANCY. Specimen adequacy: 02 Satisfactory for evaluation. No endocervical component is identified. Performed by: 02 Danie Vargas, Adjunct Faculty ([facility]) . 02 Note: Note 02 The Pap [...] High,A-Abnormal,AA-Critical Abnormal Performed at: 02 [address] [facility] [address] [id number] Radha Browne MD, [facility] Cervical or vaginal smear or scraping studyon 02-10-2024 [facility] Urinalysis macro (dipstick) panel (U)on 02-10-2024 Bilirubin, UA Negative Negative - 4(70) +++ mg/dL [facility] Blood, UA Negative Negative - 50 Mendel/mcL [facility] Clarity, UA Clear [facility] Color, UA Yellow [facility] Glucose, UA Negative Negative - 1999(110) ++++ mg/dL [facility] Interpretation and review of laboratory results Abnormal [facility] Ketones, UA Negative Negative - 160(16) ++++ mg/dL [facility] Leukocytes, UA Trace Negative - 500+++ Leighann/mcL [facility] Nitrite, UA Negative Negative - Positive [facility] pH, UA 7 5 - 9 [facility] Protein, UA Negative Negative - 1999(20) ++++ mg/dL [facility] Spec Grav, UA 1.02 1 - 1.03 [facility] Urobilinogen, UA 0.2 0.2 - 12 mg/dL [facility] ALL THYROID STIM HORMONEon 0 01-22-2024 TSH Qn 1.921 m[IU]/L [facility] Urinalysis macro (dipstick) panel (U)on 01-11-2024 Bilirubin, UA Negative Negative - 4(70) +++ mg/dL [facility] Blood, UA Negative Negative - 50 Mendel/mcL [facility] Clarity, UA Clear [facility] Color, UA Yellow [facility] Glucose, UA Negative Negative - 1999(110) ++++ mg/dL [facility] Interpretation and review of laboratory results Normal [facility] Ketones, UA Negative Negative - 160(16) ++++ mg/dL [facility] Leukocytes, UA Negative Negative - 500+++ Leighann/mcL [facility] Nitrite, UA Negative Negative - Positive [facility] pH, UA 6.0 5 - 9 [facility] Protein, UA Negative Negative - 1999(20) ++++ mg/dL [facility] Spec Grav, UA 1.015 1 - 1.03 [facility] Urobilinogen, UA 0.2 0.2 - 12 mg/dL [facility] BioFire Not Detectedon 07-12 BioFire Not Detected Not detected Normal Not Detecte T he [facility] Comment on above: Result Comment: This is a duplicate RP2.1 COVID (PCR) result to be used for statistical tracking purpose only. PERFORMED BY: [place] [address] PATHOLOGIST MANAGER RENTAL CATY NEELY M.D. Performed By: #### R RODGER PANEL UPP., BIOFIRECOVNOTDE #### [address] COVID-19 Detected/Not Detect edOrdered By: Sofie Gr on 07-13-2023 SARS-CoV-2 (COVID-19) RNA JUAN+non-probe Ql (Nph) Not detected Not Detecte [facility] Comment on above: This is a duplicate [...] Influenza A H3 Blank Space PERFORMED BY: [place] [address] PATHOLOGIST MANAGER RENTAL CATY NEELY M.D. Normal [facility] Comment on above: Performed By: #### R RODGER PANEL UPP., BIOFIRECOVNOTDE #### [address] Respiratory pathogens DNA an d RNA panel - Nasopharynx by JUAN with non-probe detectionOrdered By: Sofie Gr on 07-13-2023 Respiratory pathogens DNA and RNA panel JUAN+non-probe (Nph) [facility] CBC AUTO DIFFon 06-25-2022 BASO # 0.0 103/ul Normal 0.0-0.1 [facility] Comment on above: Performed By: #### C BC #### [facility] [address] [address] [address] Garland Kohli Basophils/100 WBC (Bld) 0.4 % Normal 0.2-2.0 [facility] Comment on above: Performed By: #### C BC #### [facility] [address] [place] [address] Dr. Garland Kohli EO # 0.1 103/ul Normal 0.0-0.7 [facility] Comment on above: Performed By: #### C BC #### [facility] [address] [place] [address] Dr. Garland Kohli Eosinophils/100 WBC (Bld) 0.9 % Normal 0.9-7.0 [facility] Comment on above: Performed By: #### C BC #### [facility] [address] [place] [address] Dr. Garland Kohli Erythrocyte distribution width (RBC) [Ratio] 12.4 % Normal 11.0-15.0 [facility] Comment on above: Performed By: #### C BC #### [facility] [address] [place] [address] Dr. Garland Kohli Hematocrit (Bld) [Volume fraction] 31.4 % Critically low 36.0-48.0 [facility] Comment on above: Performed By: #### C BC #### [facility] [address] [place] [address] Dr. Garland Kohli Hemoglobin (Bld) [Mass/Vol] 10.4 g/dL Critically low 12.0-16.0 [facility] Comment on above: Performed By: #### C BC #### [facility] [address] [place] [address] Dr. Garland Kohli IG # 0.04 10e3/ul Critically high 0.00-0.03 [facility] Comment on above: Performed By: #### C BC #### [facility] [address] [place] [address] Dr. Garland Kohli IG % 0.4 % Normal 0.0-0.5 [facility] Comment on above: Performed By: #### C BC #### [facility] [address] [place] [address] Dr. Garland Kohli LYMPH # 2.0 103/ul Normal 1.2-3.8 [facility] Comment on above: Performed By: #### C BC #### [facility] [address] [place] [address] Dr. Garland Kohli Lymphocytes/100 WBC (Bld) 22.1 % Normal 20.5-60.0 [facility] Comment on above: Performed By: #### C BC #### [facility] [address] [place] [address] Dr. Garland Kohli MANUAL DIFF REQ NO Normal [facility] Comment on above: Performed By: #### C BC #### [facility] [address] [place] [address] Dr. Garland Kohli MCH (RBC) [Entitic mass] 30.1 pg Normal 26.7-34.0 [facility] Comment on above: Performed By: #### C BC #### [facility] [address] [place] [address] Dr. Garland Kohli MCHC (RBC) [Mass/Vol] 33.1 g/dL Normal 29.9-35.2 [facility] Comment on above: Performed By: #### C BC #### [facility] [address] [place] [address] Dr. Garland Kohli MCV (RBC) [Entitic vol] 91.0 fL Normal 81.0-99.0 [facility] Comment on above: Performed By: #### C BC #### [facility] [address] [place] [address] Dr. Garland Kohli MONO # 0.8 103/ul Normal 0.3-0.8 [facility] Comment on above: Performed By: #### C BC #### [facility] [address] [place] [address] Dr. Garland Kohli Monocytes/100 WBC (Bld) 8.8 % Normal 1.7-12.0 [facility] Comment on above: Performed By: #### C BC #### [facility] [address] [place] [address] Dr. Garland Kohli NEUT # 6.0 103/ul Normal 1.4-6.5 [facility] Comment on above: Performed By: #### C BC #### [facility] [address] [place] [address] Dr. Garland Kohli Neutrophils/100 WBC (Bld) 67.4 % Normal 43.0-75.0 [facility] Comment on above: Performed By: #### C BC #### [facility] [address] [place] [address] Dr. Garland Kohli Platelet mean volume (Bld) [Entitic vol] 12.0 fL Normal 9.5-13.5 [facility] Comment on above: Performed By: #### C BC #### [facility] [address] [place] [address] Dr. Garland Kohli PLT 151 103/ul Normal 150-450 [facility] Comment on above: Performed By: #### C BC #### [facility] [address] [place] [address] Dr. Garland Kohli RBC 3.45 106/ul Critically low 4.20-5.40 [facility] Comment on above: Performed By: #### C BC #### [facility] [address] [place] [address] Dr. Garland Kohli WBC 8.9 103/ul Normal 4.0-11.0 [facility] Comment on above: Performed By: #### C BC #### [facility] [address] [place] [address] Dr. Garland Kohli CBC AUTO DIFFon 06-23-2022 BASO # 0.0 103/ul Normal 0.0-0.1 [facility] Comment on above: Performed By: #### C BC #### [facility] [address] [place] [address] Dr. Garland Kohli Basophils/100 WBC (Bld) 0.4 % Normal 0.2-2.0 [facility] Comment on above: Performed By: #### C BC #### [facility] [address] [place] [address] Dr. Garland Kohli EO # 0.1 103/ul Normal 0.0-0.7 [facility] Comment on above: Performed By: #### C BC #### [facility] [address] [place] [address] Dr. Garland Kohli Eosinophils/100 WBC (Bld) 0.8 % Critically low 0.9-7.0 [facility] Comment on above: Performed By: #### C BC #### [facility] [address] [place] [address] Dr. Garland Kohli Erythrocyte distribution width (RBC) [Ratio] 12.4 % Normal 11.0-15.0 [facility] Comment on above: Performed By: #### C BC #### [facility] [address] [place] [address] Dr. Garland Kohli Hematocrit (Bld) [Volume fraction] 34.5 % Critically low 36.0-48.0 [facility] Comment on above: Performed By: #### C BC #### [facility] [address] [place] [address] Dr. Garland Kohli Hemoglobin (Bld) [Mass/Vol] 11.6 g/dL Critically low 12.0-16.0 [facility] Comment on above: Performed By: #### C BC #### [facility] [address] [place] [address] Dr. Garland Kohli IG # 0.04 10e3/ul Critically high 0.00-0.03 [facility] Comment on above: Performed By: #### C BC #### [facility] [address] [place] [address] Dr. Garland Kohli IG % 0.5 % Normal 0.0-0.5 [facility] Comment on above: Performed By: #### C BC #### [facility] [address] [place] [address] Dr. Garland Kohli LYMPH # 1.3 103/ul Normal 1.2-3.8 [facility] Comment on above: Performed By: #### C BC #### [facility] [address] [place] [address] Dr. Garland Kohli Lymphocytes/100 WBC (Bld) 17.6 % Critically low 20.5-60.0 [facility] Comment on above: Performed By: #### C BC #### [facility] [address] [place] [address] Dr. Garland Kohli MANUAL DIFF REQ NO Normal [facility] Comment on above: Performed By: #### C BC #### [facility] [address] [place] [address] Dr. Garland Kohli MCH (RBC) [Entitic mass] 29.6 pg Normal 26.7-34.0 [facility] Comment on above: Performed By: #### C BC #### [facility] [address] [place] [address] Dr. Garland Kohli MCHC (RBC) [Mass/Vol] 33.6 g/dL Normal 29.9-35.2 [facility] Comment on above: Performed By: #### C BC #### [facility] [address] [place] [address] Dr. Garland Kohli MCV (RBC) [Entitic vol] 88.0 fL Normal 81.0-99.0 [facility] Comment on above: Performed By: #### C BC #### [facility] [address] [place] [address] Dr. Garland Kohli MONO # 0.9 103/ul Critically high 0.3-0.8 [facility] Comment on above: Performed By: #### C BC #### [facility] [address] [place] [address] Dr. Garland Kohli Monocytes/100 WBC (Bld) 11.7 % Normal 1.7-12.0 [facility] Comment on above: Performed By: #### C BC #### [facility] [address] [place] [address] Dr. Garland Kohli NEUT # 5.1 103/ul Normal 1.4-6.5 [facility] Comment on above: Performed By: #### C BC #### [facility] [address] [place] [address] Dr. Garland Kohli Neutrophils/100 WBC (Bld) 69.0 % Normal 43.0-75.0 [facility] Comment on above: Performed By: #### C BC #### [facility] [address] [place] [address] Dr. Garland Kohli Platelet mean volume (Bld) [Entitic vol] 12.1 fL Normal 9.5-13.5 [facility] Comment on above: Performed By: #### C BC #### [facility] [address] [place] [address] Dr. Garland Kohli PLT 193 103/ul Normal 150-450 [facility] Comment on above: Performed By: #### C BC #### [facility] [address] [place] [address] Dr. Garland Kohli RBC 3.92 106/ul Critically low 4.20-5.40 [facility] Comment on above: Performed By: #### C BC #### [facility] [address] [place] [address] Dr. Garland Kohli WBC 7.4 103/ul Normal 4.0-11.0 [facility] Comment on above: Performed By: #### C BC #### [facility] [address] [place] [address] Dr. Garland Kohli DRUG SCREEN RAPID (URINE)on 06-23-2022 AMP Negative Normal NEGATIVE [facility] Comment on above: Performed By: #### D RUGRPD #### [facility] [address] [place] [address] Dr. Garland Kohli BAR Negative Normal NEGATIVE [facility] Comment on above: Performed By: #### D RUGRPD #### [facility] [address] [place] [address] Dr. Garland Kohli BUP Negative Normal NEGATIVE [facility] Comment on above: Performed By: #### D RUGRPD #### [facility] [address] [place] [address] Dr. Garland Kohli BZO Negative Normal NEGATIVE [facility] Comment on above: Performed By: #### D RUGRPD #### [facility] [address] [place] [address] Dr. Garland Kohli JUANI Negative Normal NEGATIVE [facility] Comment on above: Performed By: #### D RUGRPD #### [facility] [address] [place] [address] Dr. Garland Kohli CUT-OFFS SEE BELOW Normal [facility] Comment on above: Result Comment: AMP [...] ng/mL Performed By: #### D RUGRPD #### [facility] [address] [place] [address] Dr. Garland Kohli DRUG CUT HEADER DRUG CLASS TEST SYSTEM CUT-OFF CONCENTRATIONS ARE FOLLOWS: Normal [facility] Comment on above: Performed By: #### D RUGRPD #### [facility] [address] [place] [address] Dr. Garland Kohli mAMP Negative Normal NEGATIVE [facility] Comment on above: Performed By: #### D RUGRPD #### [facility] [address] [place] [address] Dr. Garland Kohli MTD Negative Normal NEGATIVE [facility] Comment on above: Performed By: #### D RUGRPD #### [facility] [address] [place] [address] Dr. Garland Kohli OPI Negative Normal NEGATIVE [facility] Comment on above: Performed By: #### D RUGRPD #### [facility] [address] [place] [address] Dr. Garland Kohli OXY Negative Normal NEGATIVE [facility] Comment on above: Performed By: #### D RUGRPD #### [facility] [address] [place] [address] Dr. Garland Kohli PCP Negative Normal NEGATIVE [facility] Comment on above: Performed By: #### D RUGRPD #### [facility] [address] [place] [address] Dr. Garland Kohli PPX Negative Normal NEGATIVE [facility] Comment on above: Performed By: #### D RUGRPD #### [facility] [address] [place] [address] Dr. Garland Kohli TCA Negative Normal NEGATIVE [facility] Comment on above: Performed By: #### D RUGRPD #### [facility] [address] [place] [address] Dr. Garland Kohli THC Negative Normal NEGATIVE [facility] Comment on above: Performed By: #### D RUGRPD #### [facility] [address] [place] [address] Dr. Garland Kohli TYPE AND SCREENon 06-23-2022 TYPE AND SCREEN Negative Normal [facility] Comment on above: Performed By: #### T NS #### [facility] [address] [place] [address] Dr. Garland Kohli FREE T4on 06-07-2022 Free T4 [Mass/Vol] 0.76 ng/dL Normal 0.76-1.46 [facility] Comment on above: Performed By: #### C BC #### [facility] [address] [place] [address] Dr. Garland Kohli TSHon 06-07-2022 TSH 1.393 uIU/mL Normal 0.358-3.740 [facility] Comment on above: Performed By: #### T SH #### [facility] [address] [place] [address] Dr. Garland Kohil GROUP B STREP CULTUREon S. agalactiae Ag Ql (Unsp spec) Culture Observations: NEGATIVE FOR GROUP B STREPTOCOCCUS. Normal [facility] Comment on above: Performed By: #### C BC #### [facility] [address] [place] [address] Dr. Garland Kohli GTT 3 HR PREGon 04-16-2022 Glucose [Mass/Vol] 87 mg/dL Normal 74-106 [facility] Comment on above: Performed By: #### G TT3P #### [facility] [address] [place] [address] Dr. Garland Kohli Glucose [Mass/Vol] 148 mg/dL Normal [facility] Comment on above: Performed By: #### G TT3P #### [facility] [address] [place] [address] Dr. Garland Kohli Glucose [Mass/Vol] 128 mg/dL Normal [facility] Comment on above: Performed By: #### G TT3P #### [facility] [address] [place] [address] Dr. Garland Kohli Glucose [Mass/Vol] 105 mg/dL Normal [facility] Comment on above: Performed By: #### G TT3P #### [facility] [address] [place] [address] Dr. Garland Kohli CBC AUTO DIFFon 04-04-2022 BASO # 0.0 103/ul Normal 0.0-0.1 [facility] Comment on above: Performed By: #### G TT3P #### [facility] [address] [place] [address] Dr. Garland Kohli Basophils/100 WBC (Bld) 0.2 % Normal 0.2-2.0 [facility] Comment on above: Performed By: #### G TT3P #### [facility] [address] [place] [address] Dr. Garland Kohli EO # 0.0 103/ul Normal 0.0-0.7 [facility] Comment on above: Performed By: #### G TT3P #### [facility] [address] [place] [address] Dr. Garland Kohli Eosinophils/100 WBC (Bld) 0.4 % Critically low 0.9-7.0 [facility] Comment on above: Performed By: #### G TT3P #### [facility] [address] [place] [address] Dr. Garland Kohli Erythrocyte distribution width (RBC) [Ratio] 12.9 % Normal 11.0-15.0 [facility] Comment on above: Performed By: #### G TT3P #### [facility] [address] [place] [address] Dr. Garland Kohli Hematocrit (Bld) [Volume fraction] 32.5 % Critically low 36.0-48.0 [facility] Comment on above: Performed By: #### G TT3P #### [facility] [address] [place] [address] Dr. Garland Kohli Hemoglobin (Bld) [Mass/Vol] 11.2 g/dL Critically low 12.0-16.0 [facility] Comment on above: Performed By: #### G TT3P #### [facility] [address] [place] [address] Dr. Garland Kohli IG # 0.07 10e3/ul Critically high 0.00-0.03 [facility] Comment on above: Performed By: #### G TT3P #### [facility] [address] [place] [address] Dr. Garland Kohli IG % 0.8 % Critically high 0.0-0.5 [facility] Comment on above: Performed By: #### G TT3P #### [facility] [address] [place] [address] Dr. Garland Kohli LYMPH # 0.9 103/ul Critically low 1.2-3.8 [facility] Comment on above: Performed By: #### G TT3P #### [facility] [address] [place] [address] Dr. Garland Kohli Lymphocytes/100 WBC (Bld) 10.4 % Critically low 20.5-60.0 [facility] Comment on above: Performed By: #### G TT3P #### [facility] [address] [place] [address] Dr. Garland Kohli MANUAL DIFF REQ NO Normal [facility] Comment on above: Performed By: #### G TT3P #### [facility] [address] [place] [address] Dr. Garland Kohli MCH (RBC) [Entitic mass] 31.4 pg Normal 26.7-34.0 [facility] Comment on above: Performed By: #### G TT3P #### [facility] [address] [place] [address] Dr. Garland Kohli MCHC (RBC) [Mass/Vol] 34.5 g/dL Normal 29.9-35.2 [facility] Comment on above: Performed By: #### G TT3P #### [facility] [address] [place] [address] Dr. Garland Kohli MCV (RBC) [Entitic vol] 91.0 fL Normal 81.0-99.0 [facility] Comment on above: Performed By: #### G TT3P #### [facility] [address] [place] [address] Dr. Garland Kohli MONO # 1.1 103/ul Critically high 0.3-0.8 [facility] Comment on above: Performed By: #### G TT3P #### [facility] [address] [place] [address] Dr. Garland Kohli Monocytes/100 WBC (Bld) 12.5 % Critically high 1.7-12.0 [facility] Comment on above: Performed By: #### G TT3P #### [facility] [address] [place] [address] Dr. Garland Kohli NEUT # 6.3 103/ul Normal 1.4-6.5 [facility] Comment on above: Performed By: #### G TT3P #### [facility] [address] [place] [address] Dr. Garland Kohli Neutrophils/100 WBC (Bld) 75.7 % Critically high 43.0-75.0 [facility] Comment on above: Performed By: #### G TT3P #### [facility] [address] [place] [address] Dr. Garland Kohli Platelet mean volume (Bld) [Entitic vol] 10.5 fL Normal 9.5-13.5 [facility] Comment on above: Performed By: #### G TT3P #### [facility] [address] [place] [address] Dr. Garland Kohli PLT 181 103/ul Normal 150-450 [facility] Comment on above: Performed By: #### G TT3P #### [facility] [address] [place] [address] Dr. Garland Kohli RBC 3.57 106/ul Critically low 4.20-5.40 [facility] Comment on above: Performed By: #### G TT3P #### [facility] [address] [place] [address] Dr. Garland Kohli WBC 8.4 103/ul Normal 4.0-11.0 [facility] Comment on above: Performed By: #### G TT3P #### [facility] [address] [place] [address] Dr. Garland Kohli CTA CHEST WO W [...] DEANNA LINN Date: 2022-04-04 15:25 Normal [facility] PROF CHEM 8 (BAS METB)on Anion gap [Moles/Vol] 13.2 mmol/L Normal [facility] Comment on above: Performed By: #### G TT3P #### [facility] [address] [address] [address] Garland Kohli Calcium [Mass/Vol] 8.5 mg/dL Normal 8.5-10.1 [facility] Comment on above: Performed By: #### G TT3P #### [facility] [address] [address] [address] Garland Kohli Chloride [Moles/Vol] 103 mmol/L Normal 98-107 [facility] Comment on above: Performed By: #### G TT3P #### [facility] [address] [place] [address] Dr. Garland Kohli CO2 [Moles/Vol] 23.4 mmol/L Normal 21.0-32.0 [facility] Comment on above: Performed By: #### G TT3P #### [facility] [address] [address] [address] Garland Kohli Creatinine [Mass/Vol] 0.43 mg/dL Critically low 0.55-1.02 [facility] Comment on above: Performed By: #### G TT3P #### [facility] [address] [place] [address] Dr. Garland Kohli EGFR-AF CROATIAN >60 Normal >=60 [facility] Comment on above: Performed By: #### G TT3P #### [facility] [address] [place] [address] Dr. Garland Kohli EGFR-NON AF CROATIAN >60 Normal >=60 [facility] Comment on above: Performed By: #### G TT3P #### [facility] [address] [place] [address] Dr. Garland Kohli Glucose [Mass/Vol] 108 mg/dL Critically high 74-106 [facility] Comment on above: Performed By: #### G TT3P #### [facility] [address] [place] [address] Dr. Garland Kohli Potassium [Moles/Vol] 3.6 mmol/L Normal 3.5-5.1 [facility] Comment on above: Performed By: #### G TT3P #### [facility] [address] [address] [address] Garland Kohli Sodium [Moles/Vol] 136 mmol/L Normal 136-145 [facility] Comment on above: Performed By: #### G TT3P #### [facility] [address] [place] [address] Dr. Garland Kohli Urea nitrogen [Mass/Vol] 5.0 mg/dL Critically low 7.0-18.0 [facility] Comment on above: Performed By: #### G TT3P #### [facility] [address] [place] [address] Dr. Garland Kohli Urea nitrogen/Creatinine [Mass ratio] 11.6 mg/mg Normal [facility] Comment on above: Performed By: #### G TT3P #### [facility] [address] [place] [address] Dr. Garland Kohli TROPONIN, HIGH SENSITIVITYon 04-04-2022 HSTROP 9.3 pg/mL Normal 4.0-51.3 [facility] Comment on above: Result Comment: CUT- OFF POINTS HAVE BEEN ESTABLISHED BASED ON THE FOURTH UNIVERSAL DEFINITIONS OF MYOCARDIAL INFARCTION. THE UPPER REFERENCE LIMIT (URL) OF TROPONIN, DEFINED THE 99TH PERCENTILE OF cTnI DISTRIBUTION IN A REFERENCE POPULATION, HAS BEEN CONFIRMED THE DECISION THRESHOLD FOR MA DIAGNOSIS. Performed By: #### G TT3P #### [facility] [address] [place] [address] Dr. Garland Kohli CBC AUTO DIFFon 03-26-2022 BASO # 0.0 103/ul Normal 0.0-0.1 [facility] Comment on above: Performed By: #### G TT3P #### [facility] [address] [place] [address] Dr. Garland Kohli Basophils/100 WBC (Bld) 0.2 % Normal 0.2-2.0 [facility] Comment on above: Performed By: #### G TT3P #### [facility] [address] [place] [address] Dr. Garland Kohli EO # 0.1 103/ul Normal 0.0-0.7 [facility] Comment on above: Performed By: #### G TT3P #### [facility] [address] [place] [address] Dr. Garland Kohli Eosinophils/100 WBC (Bld) 1.0 % Normal 0.9-7.0 [facility] Comment on above: Performed By: #### G TT3P #### [facility] [address] [place] [address] Dr. Garland Kohli Erythrocyte distribution width (RBC) [Ratio] 12.8 % Normal 11.0-15.0 [facility] Comment on above: Performed By: #### G TT3P #### [facility] [address] [place] [address] Dr. Garland Kohli Hematocrit (Bld) [Volume fraction] 36.2 % Normal 36.0-48.0 [facility] Comment on above: Performed By: #### G TT3P #### [facility] [address] [place] [address] Dr. Garland Kohli Hemoglobin (Bld) [Mass/Vol] 12.2 g/dL Normal 12.0-16.0 [facility] Comment on above: Performed By: #### G TT3P #### [facility] [address] [place] [address] Dr. Garland Kohli IG # 0.08 10e3/ul Critically high 0.00-0.03 [facility] Comment on above: Performed By: #### G TT3P #### [facility] [address] [place] [address] Dr. Garland Kohli IG % 0.9 % Critically high 0.0-0.5 [facility] Comment on above: Performed By: #### G TT3P #### [facility] [address] [place] [address] Dr. Garland Kohli LYMPH # 1.7 103/ul Normal 1.2-3.8 [facility] Comment on above: Performed By: #### G TT3P #### [facility] [address] [place] [address] Dr. Garland Kohli Lymphocytes/100 WBC (Bld) 17.8 % Critically low 20.5-60.0 [facility] Comment on above: Performed By: #### G TT3P #### [facility] [address] [place] [address] Dr. Garland Kohli MANUAL DIFF REQ NO Normal [facility] Comment on above: Performed By: #### G TT3P #### [facility] [address] [place] [address] Dr. Garland Kohli MCH (RBC) [Entitic mass] 30.7 pg Normal 26.7-34.0 [facility] Comment on above: Performed By: #### G TT3P #### [facility] [address] [place] [address] Dr. Garland Kohli MCHC (RBC) [Mass/Vol] 33.7 g/dL Normal 29.9-35.2 [facility] Comment on above: Performed By: #### G TT3P #### [facility] [address] [place] [address] Dr. Garland Kohli MCV (RBC) [Entitic vol] 91.2 fL Normal 81.0-99.0 [facility] Comment on above: Performed By: #### G TT3P #### [facility] [address] [place] [address] Dr. Garland Kohli MONO # 0.6 103/ul Normal 0.3-0.8 [facility] Comment on above: Performed By: #### G TT3P #### [facility] [address] [place] [address] Dr. Garland Kohli Monocytes/100 WBC (Bld) 6.0 % Normal 1.7-12.0 [facility] Comment on above: Performed By: #### G TT3P #### [facility] [address] [place] [address] Dr. Garland Kohli NEUT # 6.9 103/ul Critically high 1.4-6.5 [facility] Comment on above: Performed By: #### G TT3P #### [facility] [address] [place] [address] Dr. Garland Kohli Neutrophils/100 WBC (Bld) 74.1 % Normal 43.0-75.0 [facility] Comment on above: Performed By: #### G TT3P #### [facility] [address] [place] [address] Dr. Garland Kohli Platelet mean volume (Bld) [Entitic vol] 10.2 fL Normal 9.5-13.5 [facility] Comment on above: Performed By: #### G TT3P #### [facility] [address] [place] [address] Dr. Garland Kohli PLT 217 103/ul Normal 150-450 [facility] Comment on above: Performed By: #### G TT3P #### [facility] [address] [address] [address] Garland Kohli RBC 3.97 106/ul Critically low 4.20-5.40 [facility] Comment on above: Performed By: #### G TT3P #### [facility] [address] [address] [address] Garland Kohli WBC 9.3 103/ul Normal 4.0-11.0 [facility] Comment on above: Performed By: #### G TT3P #### [facility] [address] [place] [address] Dr. Garland Kohli GLUCOSE - 1HRon 03-26-2022 Glucose [Mass/Vol] 155 mg/dL Critically high 74-106 [facility] Comment on above: Performed By: #### C BC #### [facility] [address] [place] [address] Dr. Garland Kohli US PREG ANATOMY SINGLEon [...] YAAKOV TERAN Date: 2022-02-09 19:30 Normal [facility] AFP MATERNAL FOR SPINA BIFID Aon 01-29-2022 AFP MoM 0.76 Normal [facility] Comment on above: Performed By: #### G TT3P #### [facility] [address] [address] [address] Garland Kohli AFP Value 35.4 ng/mL Normal [facility] Comment on above: Performed By: #### G TT3P #### [facility] [address] [address] [address] Garland Kohli AFP, Serum for Spina Bifida Report Normal [facility] Comment on above: Performed By: #### G TT3P #### [facility] [address] [address] [address] Garland Kohli Comment Comment Normal [facility] Comment on above: Result Comment: Stanley Almodovar, Ph.D., [facility] Director . References: Available Upon Request. . Multiples Of Median Cutoffs For AFP Elevations Mark 2.5 Black 2.8 IDD 2.0 Twins 4.5 Abbreviation Definitions IDD - Insulin Dep Diabetes OSBR - Open Spina Bifida Risk . For further inquiries contact [employer] [facility] at [phone]. . This test was developed and its performance characteristics determined by [employer]. It has not been cleared or approved by the Food and Drug Administration. Performed By: #### G TT3P #### [facility] [address] [address] [address] Garland Izquierdo Age Collection Date 18.1 weeks Normal [facility] Comment on above: Performed By: #### G TT3P #### [facility] [address] [address] [address] Garland Kohli Gestat, Age Based on Ultrasound Normal [facility] Comment on above: Result Comment: 09:4 on 11/26/2021 Recalculations are not recommended when gestational dating by LMP and ultrasound are within 10 days. Performed By: #### G TT3P #### [facility] [address] [place] [address] Dr. Garland Kohli Insulin Dep Diabetes No Normal [facility] Comment on above: Performed By: #### G TT3P #### [facility] [address] [place] [address] Dr. Garland Kohli Interpretation Comment Normal [facility] Comment on above: Result Comment: Inte [...] Customer Services to discuss available options. The [employer] recommends amniocentesis be offered to women age 35 and older. Performed By: #### G TT3P #### [facility] [address] [place] [address] Dr. Garland Kohli [age] Normal [facility] Comment on above: Performed By: #### G TT3P #### [facility] [address] [place] [address] Dr. Garland Kohli Multiple Gestation No Normal [facility] Comment on above: Performed By: #### G TT3P #### [facility] [address] [place] [address] Dr. Garland Kohli OS[place] [address] [place] [address] [facility] Comment on above: Performed By: #### G TT3P #### [facility] [address] [place] [address] Dr. Garland Kohli PDF . Normal [facility] Comment on above: Performed By: #### G TT3P #### [facility] [address] [place] [address] Dr. Garland Kohli Race [facility] Comment on above: Performed By: #### G TT3P #### [facility] [address] [place] [address] Dr. Garland Kohli Test Results: Negative [facility] Comment on above: Performed By: #### G TT3P #### [facility] [address] [place] [address] Dr. Garland Kohli PAP ACOG PANEL 2: 21 to 29on 01-23-2022 . . Normal [facility] Comment on above: Performed By: #### [id number] #### [facility] [address] [place] [address] Dr. Garland Kohli Age Gdln ACOG Testing [facility] Comment on above: Performed By: #### [id number] #### [facility] [address] [place] [address] Dr. Garland Kohli DIAGNOSIS: Comment [facility] Comment on above: Result Comment: NEGA TIVE FOR INTRAEPITHELIAL LESION OR MALIGNANCY. Performed By: #### [id number] #### [facility] [address] [place] [address] Dr. Garland Kohli Methodology: Comment [facility] Comment on above: Result Comment: This liquid based ThinPrep(R) pap test was screened with the use of an image guided system. Performed By: #### [id number] #### [facility] [address] [place] [address] Dr. Garland Kohli Note: Comment [facility] Comment on above: Result Comment: The Pap smear is a screening test designed to aid in the detection of premalignant and malignant conditions of the uterine cervix. It is not a diagnostic procedure and should not be used as the sole means of detecting cervical cancer. Both false-positive and false-negative reports do occur. . Performed By: #### [id number] #### [facility] [address] [place] [address] Dr. Garland Kohli Performed by: Comment [facility] Comment on above: Result Comment: Kelly Arreguin Adjunct Faculty (ASCP) Performed By: #### [id number] #### [facility] [address] [place] [address] Dr. Garland Kohli Reflex Criteria: Comment Normal [facility] Comment on above: Result Comment: The HPV DNA reflex criteria were not met with this specimen result therefore, no HPV testing was performed. . Performed By: #### [id number] #### [facility] [address] [place] [address] Dr. Garland Kohli Specimen adequacy: Comment Normal [facility] Comment on above: Result Comment: Sati sfactory for evaluation. No endocervical component is identified. Performed By: #### [id number] #### [facility] [address] [place] [address] Dr. Garland Kohli CHLAMYDIA/GONOCOCCUS JUAN (SW AB/URINE/PAPon 01-20-2022 Chlamydia trachomatis, JUAN Negative Normal Negative [facility] Comment on above: Performed By: #### C BC #### [facility] [address] [place] [address] Dr. Garland Kohli Neisseria gonorrhoeae, JUAN Negative Normal Negative [facility] Comment on above: Performed By: #### C BC #### [facility] [address] [place] [address] Dr. Garland Kohli TSHon 01-04-2022 TSH 1.707 uIU/mL Normal 0.358-3.740 [facility] Comment on above: Performed By: #### G TT3P #### [facility] [address] [place] [address] Dr. Garland Kohli HEPATITIS C VIRUS AB W/ REFL EX QUANTon 12-17-2021 HCV AB <0.1 Normal 0.0-0.9 [facility] Comment on above: Performed By: #### G TT3P #### [facility] [address] [place] [address] Dr. Garland Kohli Interpretation: Comment Normal [facility] Comment on above: Result Comment: Nega tive Not infected with HCV, unless recent infection is suspected or other evidence exists to indicate HCV infection. Performed By: #### G TT3P #### [facility] [address] [place] [address] Dr. Garland Kohli CULTURE URINEon 12-15-2021 CULTURE URINE Culture Observations : GREATER THAN TWO ORGANISMS PRESENT. PLEASE RESUBMIT CLEAN CATCH MID-STREAM URINE IF CLINICALLY INDICATED. Normal [facility] Comment on above: Performed By: #### U RCX #### [facility] [facility] [address] [place] [address] Dr. Garland Kohli HEP B SURFACE ANTIGEN SCREEN on 12-15-2021 HBsAg Screen Negative Normal Negative [facility] Comment on above: Performed By: #### H BSANS #### [facility] [address] [place] [address] Dr. Garland Kohli HIV 1 AND 2 WITH REFLEXon HIV Screen 4th Generation wRfx Non-Reactive Normal Non Reactive [facility] Comment on above: Result Comment: HIV Negative HIV-1/HIV-2 antibodies and HIV-1 p24 antigen were NOT detected. There is no laboratory evidence of HIV infection. Performed By: #### H IV12 #### [facility] [address] [place] [address] Dr. Garland Kohli RPR QUANTon 12-15-2021 Rapid Plasma Reagin, Quant Non-Reactive Normal NonRea<1:1 [facility] Comment on above: Result Comment: Plea se Note: This test does not meet current guidelines for screening and diagnosis of syphilis. This test is intended for following treatment response in patients being treated for syphilis infection. To screen for syphilis infection, a reflex cascade that includes both RPR and a treponema-specific assay should be utilized, such as Treponema pallidum (Syphilis) Screening [place] (359968) or Rapid Plasma Reagin (RPR) Test With Reflex to Quantitative RPR and Confirmatory Treponema pallidum Antibodies (004419). Performed By: #### G TT3P #### [facility] [address] [place] [address] Dr. Garland Kohli RUBELLA AB IGGon 12-15-2021 Rubella Antibodies, IgG 4.72 index Normal Immune >0.99 [facility] Comment on above: Result Comment: Non- immune <0.90 Equivocal 0.90 - 0.99 Immune >0.99 Performed By: #### G TT3P #### [facility] [address] [address] [address] Garland Kohli CBC AUTO DIFFon 12-14-2021 BASO # 0.0 103/ul Normal 0.0-0.1 [facility] Comment on above: Performed By: #### C BC #### [facility] [address] [address] [address] Garland Kohli Basophils/100 WBC (Bld) 0.3 % Normal 0.2-2.0 [facility] Comment on above: Performed By: #### C BC #### [facility] [address] [address] [address] Garland Kohli EO # 0.1 103/ul Normal 0.0-0.7 [facility] Comment on above: Performed By: #### C BC #### [facility] [address] [place] [address] Dr. Garland Kohli Eosinophils/100 WBC (Bld) 0.8 % Critically low 0.9-7.0 [facility] Comment on above: Performed By: #### C BC #### [facility] [address] [address] [address] Garland Kohli Erythrocyte distribution width (RBC) [Ratio] 12.6 % Normal 11.0-15.0 [facility] Comment on above: Performed By: #### C BC #### [facility] [address] [place] [address] Dr. Garland Kohli Hematocrit (Bld) [Volume fraction] 34.3 % Critically low 36.0-48.0 [facility] Comment on above: Performed By: #### C BC #### [facility] [address] [address] [address] Garland Kohli Hemoglobin (Bld) [Mass/Vol] 11.7 g/dL Critically low 12.0-16.0 [facility] Comment on above: Performed By: #### C BC #### [facility] [address] [address] [address] Garland Kohli IG # 0.03 10e3/ul Normal 0.00-0.03 [facility] Comment on above: Performed By: #### C BC #### [facility] [address] [place] [address] Dr. Garland Kohli IG % 0.4 % Normal 0.0-0.5 [facility] Comment on above: Performed By: #### C BC #### [facility] [address] [place] [address] Dr. Garland Kohli LYMPH # 1.5 103/ul Normal 1.2-3.8 [facility] Comment on above: Performed By: #### C BC #### [facility] [address] [place] [address] Dr. Garland Kohli Lymphocytes/100 WBC (Bld) 21.1 % Normal 20.5-60.0 [facility] Comment on above: Performed By: #### C BC #### [facility] [address] [place] [address] Dr. Garland Kohli MANUAL DIFF REQ NO Normal [facility] Comment on above: Performed By: #### C BC #### [facility] [address] [place] [address] Dr. Garland Kohli MCH (RBC) [Entitic mass] 30.5 pg Normal 26.7-34.0 [facility] Comment on above: Performed By: #### C BC #### [facility] [address] [place] [address] Dr. Garland oKhli MCHC (RBC) [Mass/Vol] 34.1 g/dL Normal 29.9-35.2 [facility] Comment on above: Performed By: #### C BC #### [facility] [address] [place] [address] Dr. Garland Kohli MCV (RBC) [Entitic vol] 89.6 fL Normal 81.0-99.0 [facility] Comment on above: Performed By: #### C BC #### [facility] [address] [place] [address] Dr. Garland Kohli MONO # 0.5 103/ul Normal 0.3-0.8 [facility] Comment on above: Performed By: #### C BC #### [facility] [address] [address] [address] Garland Kohli Monocytes/100 WBC (Bld) 7.1 % Normal 1.7-12.0 [facility] Comment on above: Performed By: #### C BC #### [facility] [address] [address] [address] Garland Kohli NEUT # 5.0 103/ul Normal 1.4-6.5 [facility] Comment on above: Performed By: #### C BC #### [facility] [address] [place] [address] Dr. Garland Kohli Neutrophils/100 WBC (Bld) 70.3 % Normal 43.0-75.0 [facility] Comment on above: Performed By: #### C BC #### [facility] [address] [place] [address] Dr. Garland Kohli Platelet mean volume (Bld) [Entitic vol] 10.1 fL Normal 9.5-13.5 [facility] Comment on above: Performed By: #### C BC #### [facility] [address] [place] [address] Dr. Garland Kohli PLT 234 103/ul Normal 150-450 [facility] Comment on above: Performed By: #### C BC #### [facility] [address] [place] [address] Dr. Garland Kohli RBC 3.83 106/ul Critically low 4.20-5.40 [facility] Comment on above: Performed By: #### C BC #### [facility] [address] [place] [address] Dr. Garland Kohli WBC 7.1 103/ul Normal 4.0-11.0 [facility] Comment on above: Performed By: #### C BC #### [facility] [address] [place] [address] Dr. Garland Kohli GLYCOHEMOGLOBIN A1Con 2021 ADA RECOMMENDATION SEE BELOW Normal [facility] Comment on above: Result Comment: ADA RECOMMENDED LIMIT 4.0 - 6.0 ADA THERAPEUTIC TARGET < 7.0 ACTION SUGGESTED > 7.0 Performed By: #### A 1C #### [facility] [address] [address] [address] Garland Kohli Glucose [Mass/Vol] 103 mg/dL Normal [facility] Comment on above: Performed By: #### A 1C #### [facility] [address] [place], [place] [address] Dr. Garland Kohli HbA1c (Bld) [Mass fraction] 5.2 % Normal 4.5-6.2 [facility] Comment on above: Performed By: #### A 1C #### [facility] [address] [address] [address] Garland Kohli MARTÍNEZ BOX TEST PT SEND OUTo n 12-14-2021 SENT TO REF LAB 12/14/21 Normal [facility] Comment on above: Performed By: #### G TT3P #### [facility] [address] [place] [address] Dr. Garland Kohli TYPE AND SCREENon 12-14-2021 TYPE AND SCREEN Negative Normal [facility] Comment on above: Performed By: #### C BC #### [facility] [address] [place] [address] Dr. 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 Steri-Strips applied throughout and then bulky gauze dressing as well as surgical bra was applied. The patient was awoken, extubated, and transported to the recovery room in stable condition. Sponge, needle, and instrument counts were reported correct x2 at the end of the case. MODE RENEE MG/Natalio_OPSAJ_T Doc#: [id number] CC: Carlos Alberto Coleman [facility] Surgical Pathologyon 019 Surgical Pathology (NOTE) [id number] [address] [address] [place], [place] [address] SURGICAL PATHOLOGY REPORT Patient Name: CECELIA JOHNSON MR#: [id number] Specimen #[id number] Final Diagnosis SPECIMEN A : BREAST AND [...] The entire specimen weighs 453 grams. Multiple passenger representative sections are submitted in five cassettes [...] also sampled in multiple different areas and passenger representative sections are submitted in five cassettes for microscopic examination. Microscopic Description Specimen A : Five RICHARD glass slides are received. Microscopic examination is performed. Specimen B : Five RICHARD glass slides are received. Microscopic examination is performed. Normal [facility] Comment on above: Performed By: #### P PPES #### [facility] [address] [place] [id number] Lead Principal Technical Architect: Victor Manuel Hunter DO CNOVSColton 11-18-2018 CNOVSP Visit (SP) Office ([place]) CECELIA JOHNSON ([id number]) 1995 F Date Time Provider Department 11/18/18 1:00 PM JAZ MOULTON) HEMSCOTTIE During your visit today, we recorded the following information about you: Temperature Pulse Respiration Blood pressure 97.9 degrees 82/minute 18/minute 122/78 Weight Height Last Period 82.7 kg 1.6 m 10/15/18 Jaz Moulton MD 11/18/2018 3:08 PM Signed PATIENT NAME: Cecelia Johnson CLINIC NO.: [id number] ATTENDING PHYSICIAN: Jaz Moulton MD DATE OF [...] number below. Jaz Moulton M.D. Hematology/Medical Oncology CC [place] [phone] CC: Carlos Alberto Coleman MD - (Inactive), In Basket (Inactive) - User (Inactive) [address] [place] [address] (Ph) Mode Renee MD Referring Provider: [...] Nathan - Fully Assessed Visit Diagnosis:MTHFR mutation ([facility]) [E72.12] Prescriptions as of 11/18/2018 Sig: ACETAMINOPHEN [...] Of Date 11/18/2018 Noted Resolved MTHFR mutation ([facility]) [E72.12] INVALID FOR* Encounter Status:Closed by JAZ MOULTON MD on 11/18/18 Normal [facility] PROGRESSon 11-18-2018 PROGRESS HNO ID: [id number] Author: Jaz Moulton Service: ? Author Type: Physician Type: Progress Notes Filed: 11/18/2018 3:08 PM Note Text: PATIENT NAME: Cecelia Johnson CLINIC NO.: [id number] ATTENDING PHYSICIAN: Jaz Moulton MD DATE OF [...] for allowing me to participate in Miss Ceceila Johnson care, if there are any questions or concerns please do not hesitate to contact me at the number below. Jaz Moulton M.D. Hematology/Medical Oncology [address] [phone] CC: Carlos Alberto Coleman MD - (Inactive), In Basket (Inactive) - User (Inactive) [address] [facility] [phone] (Ph) Mode Renee MD Normal [facility] Basic Metabolic Profon 11-10 (cont.) [facility] Comment on above: Result Comment: Aver age GFR for 20-29 years old: 116 mL/min/1.73sq m Chronic Kidney Disease: <60 mL/min/1.73sq m Kidney failure: <15 mL/min/1.73sq m eGFR calculated using average adult body mass. Additional eGFR calculator available at: http://www.[employer]/multiple_crcl_2011.htm Performed By: #### C FARAZ, BMP #### [facility] [address] [facility]. [place], [place] [id number] Lead Principal Technical Architect: Victor Manuel Hunter DO Anion gap [Moles/Vol] 11 mmol/L Normal 9-17 [facility] Comment on above: Performed By: #### C FARAZ, BMP #### [facility] [address] [facility] [place], [place] [id number] Lead Principal Technical Architect: Victor Manuel Hunter DO Calcium [Mass/Vol] 9.7 mg/dL Normal 8.6-10.4 [facility] Comment on above: Performed By: #### C DP, BMP #### [facility] [address] [place] [address] Lead Principal Technical Architect: Victor Manuel Hunter DO Chloride [Moles/Vol] 102 mmol/L Normal 98-107 [facility] Comment on above: Performed By: #### C DP, BMP #### [facility] [place] [address] Lead Principal Technical Architect: Victor Manuel Hunter DO CO2 [Moles/Vol] 26 mmol/L Normal 20-31 [facility] Comment on above: Performed By: #### C DP, BMP #### [facility] [address] [place], [place] [address] [address] Lead Principal Technical Architect: Victor Manuel Hunter DO Creatinine [Mass/Vol] 0.49 mg/dL Low 0.50-0.90 [facility] Comment on above: Performed By: #### C DP, BMP #### [facility] [place] [address] Lead Principal Technical Architect: Victor Manuel Hunter DO GFR, Amer >60 Normal >60 [facility] Comment on above: Performed By: #### C DP, BMP #### [facility] [place] [address] Lead Principal Technical Architect: Victor Manuel Hunter DO GFR,non Amer >60 Normal >60 [facility] Comment on above: Performed By: #### C DP, BMP #### [facility] [address] [place], [place] [address] [place] [address] Lead Principal Technical Architect: Victor Manuel Hunter DO Glucose [Mass/Vol] 88 mg/dL Normal 70-99 [facility] Comment on above: Performed By: #### C DP, BMP #### [facility] [address] [place], [place] [address] [place] [address] Lead Principal Technical Architect: Victor Manuel Hunter DO Potassium [Moles/Vol] 4.3 mmol/L Normal 3.7-5.3 [facility] Comment on above: Performed By: #### C DP, BMP #### [facility] [place] [address] Lead Principal Technical Architect: Victor Manuel Hunter DO Sodium [Moles/Vol] 139 mmol/L Normal 135-144 [facility] Comment on above: Performed By: #### C FARAZ, BMP #### [facility] [address] [place] [address] Lead Principal Technical Architect: Victor Manuel Hunter DO Urea nitrogen [Mass/Vol] 8 mg/dL Normal 6-20 [facility] Comment on above: Performed By: #### C FARAZ, BMP #### [facility] [address] [place] [address] Lead Principal Technical Architect: Victor Manuel Hunter DO BUN/CRE Ratio NOT REPORTED Normal 9-20 [facility] Comment on above: Performed By: #### C FARAZ, BMP #### [facility] [address] [place] [address] Lead Principal Technical Architect: Victor Manuel Hunter DO Staging: NOT REPORTED Normal [facility] Comment on above: Performed By: #### C DP, BMP #### [facility] [address] [place] [address] Lead Principal Technical Architect: Victor Manuel Hunter DO CBC with Diffon 11-10-2018 Abs. Basophil 0.00 k/uL Normal 0.0-0.2 [facility] Comment on above: Performed By: #### C DP, BMP #### [facility] [address] [place] [address] Lead Principal Technical Architect: Victor Manuel Hunter DO Abs.Neutrophil (Seg) 3.00 k/uL Normal 1.3-9.1 [facility] Comment on above: Performed By: #### C DP, BMP #### [facility] [place] [address] Lead Principal Technical Architect: Victor Manuel Hunter DO Basophils/100 WBC (Bld) 0 % Normal 0-2 [facility] Comment on above: Performed By: #### C DP, BMP #### [facility] [place] [address] Lead Principal Technical Architect: Victor Manuel Hunter DO Eosinophils (Bld) [#/Vol] 0.10 10*3/uL Normal 0.0-0.4 [facility] Comment on above: Performed By: #### C DP, BMP #### [facility] [address] [place] [address] Lead Principal Technical Architect: Victor Manuel Hunter DO Eosinophils/100 WBC (Bld) 1 % Normal 0-4 [facility] Comment on above: Performed By: #### C FARAZ, BMP #### [facility] [address] Lead Principal Technical Architect: Victor Manuel Hunter DO Erythrocyte distribution width (RBC) [Ratio] 12.7 % Normal 11.5-14.9 [facility] Comment on above: Performed By: #### C DP, BMP #### [facility] [address] Lead Principal Technical Architect: Victor Manuel Hunter DO Hematocrit (Bld) [Volume fraction] 42.3 % Normal 36-46 [facility] Comment on above: Performed By: #### C DP, BMP #### [facility] [address] Lead Principal Technical Architect: Victor Manuel Hunter DO Hemoglobin (Bld) [Mass/Vol] 14.3 g/dL Normal 12.0-16.0 [facility] Comment on above: Performed By: #### C FARAZ, BMP #### [facility] [address] [place] [address] Lead Principal Technical Architect: Victor Manuel Hunter DO Lymphocytes (Bld) [#/Vol] 1.70 10*3/uL Normal 1.0-4.8 [facility] Comment on above: Performed By: #### C DP, BMP #### [facility] [address] [place] [address] Lead Principal Technical Architect: Victor Manuel Hunter DO Lymphocytes/100 WBC (Bld) 32 % Normal 24-44 [facility] Comment on above: Performed By: #### C FARAZ, BMP #### [facility] [address] [place] [address] Lead Principal Technical Architect: Victor Manuel Hunter DO MCH (RBC) [Entitic mass] 30.0 pg Normal 26-34 [facility] Comment on above: Performed By: #### C FARAZ, BMP #### [facility] [address] [place] [address] Lead Principal Technical Architect: Victor Manuel Hunter DO MCHC (RBC) [Mass/Vol] 33.7 g/dL Normal 31-37 [facility] Comment on above: Performed By: #### C FARAZ, BMP #### [facility] [address] [place] [address] Lead Principal Technical Architect: Victor Manuel Hunter DO MCV (RBC) [Entitic vol] 89.0 fL Normal 80-100 [facility] Comment on above: Performed By: #### C DP, BMP #### [facility] [address] [place] [address] Lead Principal Technical Architect: Victor Manuel Hunter DO Monocytes (Bld) [#/Vol] 0.60 10*3/uL Normal 0.1-1.3 [facility] Comment on above: Performed By: #### C DP, BMP #### [facility] [address] [place] [address] Lead Principal Technical Architect: Victor Manuel Hunter DO Monocytes/100 WBC (Bld) 11 % High 1-7 [facility] Comment on above: Performed By: #### C DP, BMP #### [facility] [address] [place] [address] Lead Principal Technical Architect: Victor Manuel Hunter DO Neutrophil (Seg) 56 % Normal 36-66 [facility] Comment on above: Performed By: #### C DP, BMP #### [facility] [place] [address] Lead Principal Technical Architect: Victor Manuel Hunter DO Platelet mean volume (Bld) [Entitic vol] 9.4 fL Normal 6.0-12.0 [facility] Comment on above: Performed By: #### C FARAZ, BMP #### [facility] [address] Lead Principal Technical Architect: Victor Manuel Hunter DO Platelets (Bld) [#/Vol] 252 10*3/uL Normal 150-450 [facility] Comment on above: Performed By: #### C DP, BMP #### [facility] [address] Lead Principal Technical Architect: Victor Manuel Hunter DO RBC (Bld) [#/Vol] 4.75 10*6/uL Normal 4.0-5.2 [facility] Comment on above: Performed By: #### C DP, BMP #### [facility] [place] [address] Lead Principal Technical Architect: Victor Manuel Hunter DO WBC (Bld) [#/Vol] 5.3 10*3/uL Normal 3.5-11.0 [facility] Comment on above: Performed By: #### C DP, BMP #### [facility] [address] [place] [address] Lead Principal Technical Architect: Victor Manuel Hunter DO Abs.Imm.Granulocyte NOT REPORTED Normal 0.00-0.30 [facility] Comment on above: Performed By: #### C DP, BMP #### [facility] [place] [address] Lead Principal Technical Architect: Victor Manuel Hunter DO Auto Diff Performed NOT REPORTED Normal [facility] Comment on above: Performed By: #### C DP, BMP #### [facility] [address] [place] [address] Lead Principal Technical Architect: Victor Manuel Hunter DO Immature granulocytes (Bld) [#/Vol] NOT REPORTED Normal 0 [facility] Comment on above: Performed By: #### C DP, BMP #### [facility] [address] [place] [address] Lead Principal Technical Architect: Victor Manuel Hunter DO NRBC Automated NOT REPORTED Normal [facility] Comment on above: Performed By: #### C DP, BMP #### [facility] [address] [place] [address] Lead Principal Technical Architect: Victor Manuel Hunter DO Platelets (Bld) [#/Vol] NOT REPORTED Normal [facility] Comment on above: Performed By: #### C DP, BMP #### [facility] [address] [place] [address] Lead Principal Technical Architect: Victor Manuel Hunter DO RBC morphology finding Nom (Bld) NOT REPORTED Normal [facility] Comment on above: Performed By: #### C DP, BMP #### [facility] [address] [place] [id number] Lead Principal Technical Architect: Victor Manuel Hunter DO WBC Morphology NOT REPORTED Normal [facility] Comment on above: Performed By: #### C DP, ROSA #### [facility] [address] [place] [address] Lead Principal Technical Architect: Victor Manuel Hunter DO Vital Signs Date Time Vital Sign Value Performing Clinician Facility 05-09-2024 16:07-0500 Body mass index (BMI) [Ratio] 32.61 kg/m2 Tori Pepe PA Work Phone: [facility] 05-09-2024 16:07-0500 Body weight 86.18 kg Tori Dwight PA Work Phone: [facility] 05-09-2024 16:07-0500 Diastolic blood pressure 82 mm[Hg] Tori Dwight PA Work Phone: [facility] 05-09-2024 16:07-0500 Systolic blood pressure 120 mm[Hg] Tori Plymouth PA Work Phone: [facility] 05-03-2024 16:38-0500 Body height 162.6 cm Tori Warchol EMPLOYMENT CLERK Work Phone: [facility] 05-03-2024 16:38-0500 Body mass index (BMI) [Ratio] 32.3 kg/m2 Tori Warchol EMPLOYMENT CLERK Work Phone: [facility] 05-03-2024 16:38-0500 Body temperature 97.59 [degF] Tori Warchol EMPLOYMENT CLERK Work Phone: [facility] 05-03-2024 16:38-0500 Body weight 85.37 kg Tori Warchol EMPLOYMENT CLERK Work Phone: [facility] 05-03-2024 16:38-0500 Diastolic blood pressure 72 mm[Hg] Tori Warchol EMPLOYMENT CLERK Work Phone: [facility] 05-03-2024 16:38-0500 Heart rate 93 /min Tori Warchol EMPLOYMENT CLERK Work Phone: [facility] 05-03-2024 16:38-0500 SaO2% (BldA) [Mass fraction] 99 % Tori Martinez EMPLOYMENT CLERK Work Phone: [facility] 05-03-2024 16:38-0500 Systolic blood pressure 124 mm[Hg] Tori Martinez EMPLOYMENT CLERK Work Phone: [facility] 04-21-2024 08:49-0500 Body mass index (BMI) [Ratio] 32.06 kg/m2 Herber Nnamdi DO Work Phone: [facility] 04-21-2024 08:49-0500 Body weight 84.73 kg Herber Nnamdi DO Work Phone: [facility] 04-21-2024 08:49-0500 Diastolic blood pressure 72 mm[Hg] Herber Nnamdi DO Work Phone: [facility] 04-21-2024 08:49-0500 Systolic blood pressure 104 mm[Hg] Herber Nnamdi DO Work Phone: [facility] 04-13-2024 15:58-0500 Body mass index (BMI) [Ratio] 31.78 kg/m2 Tori Plymouth PA Work Phone: [facility] 04-13-2024 15:58-0500 Body weight 83.97 kg Tori Dwight PA Work Phone: [facility] 04-13-2024 15:58-0500 Diastolic blood pressure 80 mm[Hg] Tori Dwight PA Work Phone: [facility] 04-13-2024 15:58-0500 Systolic blood pressure 120 mm[Hg] Tori Dwight PA Work Phone: [facility] 04-06-2024 16:29-0500 Body mass index (BMI) [Ratio] 31.65 kg/m2 Tori Plymouth PA Work Phone: [facility] 04-06-2024 16:29-0500 Body weight 83.64 kg Tori Dwight PA Work Phone: [facility] 04-06-2024 16:29-0500 Diastolic blood pressure 74 mm[Hg] Tori Dwight PA Work Phone: [facility] 04-06-2024 16:29-0500 Systolic blood pressure 112 mm[Hg] Tori Pepe PA Work Phone: [facility] 03-09-2024 16:25-0500 Body mass index (BMI) [Ratio] 30.88 kg/m2 Tori Plymouth PA Work Phone: [facility] 03-09-2024 16:25-0500 Body weight 81.6 kg Tori Pepe PA Work Phone: [facility] 03-09-2024 16:25-0500 Diastolic blood pressure 70 mm[Hg] Tori Pepe PA Work Phone: [facility] 03-09-2024 16:25-0500 Systolic blood pressure 114 mm[Hg] Tori Pepe PA Work Phone: [facility] 02-10-2024 14:44-0400 Body mass index (BMI) [Ratio] 29.39 kg/m2 Herber Nnamdi DO Work Phone: [facility] 02-10-2024 14:44-0400 Body weight 77.68 kg Herber Nnamdi DO Work Phone: [facility] 02-10-2024 14:44-0400 Diastolic blood pressure 68 mm[Hg] Herber Nnamdi DO Work Phone: [facility] 02-10-2024 14:44-0400 Systolic blood pressure 116 mm[Hg] Herber Nnamdi DO Work Phone: [facility] 01-11-2024 16:03-0400 Body mass index (BMI) [Ratio] 28.06 kg/m2 Herber Nnamdi DO Work Phone: [facility] 01-11-2024 16:03-0400 Body weight 74.16 kg Herber Nnamdi DO Work Phone: [facility] 01-11-2024 16:03-0400 Diastolic blood pressure 72 mm[Hg] Herber Nnamdi DO Work Phone: [facility] 01-11-2024 16:03-0400 Systolic blood pressure 118 mm[Hg] Herber Nnamdi DO Work Phone: [facility] 01-29-2022 02:06040 Body weight 67.[address] ZEN BREWER . [facility] Comment on above: Performed By: #### [id number] #### [facility] [address] [address] [address] Garland Kohli Encounters Encounter Date Encounter Type Care Provider Facility Start: 05-09-2024 End: 05-09-2024 flow sheet Tori SHIRLEY Work Phone: [facility] Comment on above: 32 weeks gestation o f ; Third trimester Start: 05-09-2024 End: 05-09-2024 Bamboo flowsheet Tori SHIRLEY Work Phone: [facility] Start: 05-09-2024 End: 05-09-2024 Bamboo flowsheet Tori SHILREY Work Phone: [facility] Start: 05-03-2024 End: 05-03-2024 Office outpatient visit 25 minutes Troi Martinez EMPLOYMENT CLERK Work Phone: [facility] Comment on above: Need for follow-up c are after discharge (Primary Dx) Start: 05-03-2024 End: 05-03-2024 ambulatory TORI MARTINEZ Not Available Start: 05-03-2024 End: 05-03-2024 Bamboo flowsheet Tori Martinez EMPLOYMENT CLERK Work Phone: [facility] Start: 05-03-2024 End: 05-03-2024 Bamboo flowsheet Tori Warchol EMPLOYMENT CLERK Work Phone: [facility] Start: 04-21-2024 End: 04-21-2024 Bamboo flowsheet Herber Nnamdi DO Work Phone: [facility] Start: 04-21-2024 End: 04-21-2024 Bamboo flowsheet Herber Nnamdi DO Work Phone: [facility] Start: 04-21-2024 End: 04-21-2024 ambulatory HERBER NNAMDI Not Available Start: 04-21-2024 End: 04-21-2024 flow sheet Herber Varmao DO Work Phone: [facility] Comment on above: 30 weeks gestation o f ; Third trimester Start: 04-13-2024 End: 04-13-2024 flow sheet Tori SHIRLEY Work Phone: [facility] Comment on above: 28 weeks gestation o f ; Second trimester ; Gestational diabetes mellitus (GDM), antepartum, gestational diabetes method of control unspecified; Anxiety, generalized (CMS/HCC); Nausea; Hypothyroidism, unspecified type (CMS/HCC) Start: 04-13-2024 End: 04-13-2024 ambulatory TORI PEPE Not Available Start: 04-13-2024 End: 04-13-2024 Bamboo flowsheet Tori SHIRLEY Work Phone: [facility] Start: 04-13-2024 End: 04-13-2024 Bamboo flowsheet Tori SHIRLEY Work Phone: [facility] Start: 04-06-2024 End: 04-06-2024 ambulatory TORI PEPE Not Available Start: 04-06-2024 End: 04-06-2024 flow sheet Tori SHIRLEY Work Phone: [facility] Comment on above: Second trimester pre gnancy; 27 weeks gestation of Start: 04-06-2024 End: 04-06-2024 Bamboo flowsheet Tori SHIRLEY Work Phone: [facility] Start: 04-06-2024 End: 04-06-2024 Bamboo flowsheet Tori Pepe PA Work Phone: [facility] Start: 03-19-2024 End: 03-19-2024 Clinisync Result Encounter Tori SHIRLEY Work Phone: [facility] Unsolicited Start: 03-19-2024 End: 03-19-2024 Clinisync Result Encounter Tori SHIRLEY Work Phone: [facility] Unsolicited Start: 03-09-2024 End: 03-09-2024 ambulatory TORI PEPE Not Available Start: 03-09-2024 End: 03-09-2024 flow sheet Tori SHIRLEY Work Phone: [facility] Comment on above: Encounter for follow -up ultrasound of anatomy; Second trimester ; 23 weeks gestation of ; Hypothyroidism, unspecified type (CMS/HCC); Diabetes mellitus screening; Anxiety, generalized (CMS/HCC) Start: 03-09-2024 End: 03-09-2024 Bamboo flowsheet Tori SHIRLEY Work Phone: [facility] Start: 03-09-2024 End: 03-09-2024 Bamboo flowsheet Tori SHIRLEY Work Phone: [facility] Start: 02-10-2024 End: 02-10-2024 ambulatory HERBER NNAMDI Not Available Start: 02-10-2024 End: 02-10-2024 Bamboo flowsheet Herber Nnamdi DO Work Phone: [facility] Start: 02-10-2024 End: 02-17-2024 Bamboo flowsheet Herber Nnamdi DO Work Phone: [facility] Start: 02-10-2024 End: 02-17-2024 Clinisync Result Encounter Generic External Data Provider [facility] Unsolicited Start: 02-10-2024 End: 02-10-2024 Patient encounter procedure Herber Nnamdi DO Work Phone: [facility] Start: 02-10-2024 End: 02-10-2024 Periodic preventive med est patient 18-39 yrs Herber Nnamdi DO Work Phone: [facility] Comment on above: Well woman exam [...] Phone: [facility] Comment on above: Second trimester [...] procedure MD Carlos Alberto Coleman Work Phone: [facility] Start: 07-13-2023 End: 07-13-2023 ambulatory MD Carlos Alberto Coleman Work Phone: [facility] Work Phone: Start: 07-13-2023 End: 07-13-2023 ambulatory SOFIE R LAUSE Not Available Start: 06-02-2023 Refill Tori Kylee EMPLOYMENT CLERK Work Phone: [facility] Comment on [...] without abnormal findings DR ZEN BREWER . [facility] Start: 01-17-2022 End: 01-17-[address] ZEN BREWER . Facility:[facility] Start: 01-17-2022 End: 01-17-2022 Encounter for gynecological examination (general) (routine) without abnormal findings DR ZEN BREWER . Facility:[facility] Start: 01-04-2022 End: 01-05-2022 ambulatory ÁNGEL SINHA Facility:[facility] Start: 12-14-2021 End: 12-15-[address] ZEN BREWER . Facility:[facility] Start: 11-26-2021 End: 11-27-2021 ambulatory ÁNGEL SINHA Facility:[facility] Start: 11-24-2018 End: 11-24-2018 Patient encounter procedure [facility] Start: 11-10-2018 End: 11-15-2018 Patient encounter procedure [facility] Procedures Date Procedure Procedure Detail Performing Clinician Start: 05-09-2024 Urnls dip stick/tabl et rgnt non-auto w/o micrscp Tori SHIRLEY Work Phone: Start: 04-21-2024 Urnls dip stick/tabl et rgnt non-auto w/o micrscp [facility] DO Work Phone: Start: 04-13-2024 Urnls dip stick/tabl et rgnt non-auto w/o micrscp Tori SHIRLEY Work Phone: Start: 04-06-2024 Urnls dip stick/tabl et rgnt non-auto w/o micrscp [facility] DO Work Phone: Start: 03-19-2024 ALL CBC WITH AUTO DIFF Generic External Data Provider Start: 02-10-2024 Urnls dip stick/tabl et rgnt non-auto w/o micrscp [facility] DO Work Phone: Start: 02-10-2024 IGP,APTIMA HPV,AGE GDLN [facility] Work Phone: Start: 02-10-2024 Microscopic observat ion [Identifier] in Cervix by Cyto stain Tori SHIRLEY Work Phone: Start: 02-10-2024 Cytp cerv/vag auto t hin layer prep mnl screen Tori SHIRLEY Work Phone: Start: 01-22-2024 ALL THYROID STIM HORMONE [facility] Work Phone: Start: 01-11-2024 Urnls dip stick/tabl et rgnt non-auto w/o micrscp [facility] Work Phone: Start: 07-13-2023 Respiratory Panel (PCR) [...] 2024 Influenza vaccination Influenza Vacc ine (#1) [facility] Comment on above: Postponed from 12/26 (Patient Refused) Start: 05-25-2024 End: 05-25-2024 Patient encounter procedure 05/25/2024 2:10 PM EST Routine [facility] [address] [place] [address] Herber Coto, [address] [place] [address] [facility] Start: 05-09-2024 End: 05-09-2024 Patient encounter procedure [facility] Comment on above: Arrived Start: 05-03-2024 End: 05-03-2024 Patient encounter procedure 05/03/2024 4:40 PM EST Office Visit [facility] [address] [place] [address] Tori Martinez, EMPLOYMENT CLERK [address] [place] [address] Need for follow-up care after discharge (Primary Dx) [facility] Comment on above: Need for follow-up c are after discharge (Primary Dx) Start: 04-21-2024 End: 04-21-2024 Patient encounter procedure 04/21/2024 8:30 AM EST Routine [facility] [address] [place] [id number] Herber Coto DO [address] [place] [address] [facility] Start: 04-13-2024 End: 04-13-2024 Patient encounter procedure [facility] Comment on above: Arrived Start: 04-13-2024 End: 04-13-2025 US biophysical profile w non stress test US biophysical profile w non stress test Imaging Routine 28 weeks gestation of Second trimester Gestational diabetes mellitus (GDM), antepartum, gestational diabetes method of control unspecified Expected: 04/13/2024 (Approximate), Expires: 04/13/2025 [facility] Work Phone: Comment on above: Expected: 04/13/2024 (Approximate), Expires: 04/13/2025 Start: 04-06-2024 End: 04-06-2024 Patient encounter procedure 04/06/2024 3:20 PM EST Routine [facility] [address] [place] [phone] Tori Pepe, PA [address] [place], [place] [id number] [facility] Start: 04-03-2024 End: 03-04-2025 US for US OB INCOMPLETE ANATOMY Imaging Routine Encounter for follow-up ultrasound of anatomy Expected: 04/03/2024 (Approximate), Expires: 03/04/2025 [facility] Work Phone: Comment on above: Expected: 04/03/2024 (Approximate), Expires: 03/04/2025 Start: 03-09-2024 End: 03-09-2024 Patient encounter procedure 03/09/2024 3:50 PM EST Routine [facility] [address] [place] [phone] Tori Pepe PA [address] [place] [address] [facility] Start: 03-09-2024 End: 03-09-2025 CBC panel - Blood by Automated count CBC Lab Routine Diabetes mellitus screening Expected: 03/09/2024 (Approximate), Expires: 03/09/2025 [facility] Comment on above: Expected: 03/09/2024 (Approximate), Expires: 03/09/2025 Start: 03-09-2024 End: 03-09-2025 Measurement of glucose 1 hour after glucose challenge for glucose tolerance test Glucose tolerance, 1 hour Lab Routine Diabetes mellitus screening Expected: 03/09/2024 (Approximate), Expires: 03/09/2025 [facility] Comment on above: Expected: 03/09/2024 (Approximate), Expires: 03/09/2025 Start: 03-09-2024 End: 03-09-2025 US for US OB SCAN FOR GROWTH Imaging Routine Hypothyroidism, unspecified type (CMS/HCC) Expected: 03/09/2024 (Approximate), Expires: 03/09/2025 [facility] Comment on above: Expected: 03/09/2024 (Approximate), Expires: 03/09/2025 Start: 02-10-2024 End: 02-09-2025 Alpha fetoprotein, maternal Alpha fetoprotein, maternal Lab Routine Second trimester 19 weeks gestation of Expected: 02/10/2024 (Approximate), Expires: 02/09/2025 [facility] Comment on above: Expected: 02/10/2024 (Approximate), Expires: 02/09/2025 Start: 02-10-2024 End: 02-09-2025 US for US OB ANATOMY SINGLE W US OB CERVICAL LENGTH Imaging Routine Screening, , for anatomic survey Expected: 02/10/2024 (Approximate), Expires: 02/09/2025 [facility] Comment on above: Expected: 02/10/2024 (Approximate), Expires: 02/09/2025 Start: 02-10-2024 End: 02-10-2024 Patient encounter procedure 02/10/2024 1:50 PM EDT Routine [facility] [address] [place] [phone] Herber Coto, DO [address] [place] [address] [facility] Start: 01-11-2024 End: 01-11-2024 Patient encounter procedure 01/11/2024 3:50 PM EDT Routine [facility] [address] [place] [phone] Herber Coto, DO [address] [place], [facility] Arrived [facility] Comment on above: Arrived Start: 12-27-2023 Influenza vaccination Influenza Vacc ine (#1) [facility] Start: 10-25-2023 Influenza vaccination Influenza Vacc ine (#1) [facility] Comment on above: Postponed from 12/26 (Patient Refused) Start: 10-25-2023 Screening for malign ant neoplasm of cervix [facility] Start: 07-17-2023 End: 07-17-2023 Patient encounter procedure 07/17/2023 8:00 AM EDT Office Visit [facility] [address] [place] [address] Tori Martinez NP [address] [place] [address] [facility] Start: 2014 Screening for malign ant neoplasm of cervix Pap Smear [facility] CHLAMYDIA TRACHOMATI S (GENITO/STI) CHLAMYDIA TRACHOMATIS (GENITO/STI) Lab Routine Screen for STD (sexually transmitted disease) Vaginal discharge Ordered: 02/10/2024 [facility] Comment on above: Ordered: 02/10/2024 Cytology Cervical or vaginal smear or scraping study Pap Smear Pathology and Cytology Routine Well woman exam with routine gynecological exam Ordered: 02/10/2024 [facility] Comment on above: Ordered: 02/10/2024 Human papilloma viru s DNA [Presence] in Unspecified specimen by Probe with amplification HPV DNA probe, amplified Microbiology Routine Well woman exam with routine gynecological exam Ordered: 02/10/2024 [facility] Comment on above: Ordered: 02/10/2024 Neisseria gonorrhoea e DNA [Presence] in Unspecified specimen by JUAN with probe detection Neisseria gonorrhea DNA probe, direct Lab Routine Screen for STD (sexually transmitted disease) Vaginal discharge Ordered: 02/10/2024 [facility] Comment on above: Ordered: 02/10/2024 SURESWAB(R) ADVANCED VAGINITIS PLUS, TMA SURESWAB(R) ADVANCED VAGINITIS PLUS, TMA Pathology and Cytology Routine Screen for STD (sexually transmitted disease) Vaginal discharge Ordered: 02/10/2024 [facility] Work Phone: Comment on above: Ordered: 02/10/2024 Thyrotropin [Units/volume] in Serum or Plasma TSH Lab Routine Other specified hypothyroidism (CMS/HCC) Ordered: 01/11/2024 [facility] Work Phone: Comment on above: Ordered: 01/11/2024 Thyrotropin [Units/volume] in Serum or Plasma TSH Lab Routine Hypothyroidism, unspecified type (CMS/HCC) Ordered: 04/13/2024 [facility] Comment on above: Ordered: 04/13/2024 Immunizations Immunization Date Immunization Notes Care Provider Byron carlson 05-05-2015 tetanus toxoid, redu catherine diphtheria toxoid, and acellular pertussis vaccine, adsorbed Tori Martinez EMPLOYMENT CLERK Work Phone: [facility] 02-14-2009 influenza, seasonal, injectable Tori Gomezchol EMPLOYMENT CLERK Work Phone: [facility] 02-14-2009 influenza virus vacc ine, unspecified formulation Tori Gomezchol EMPLOYMENT CLERK Work Phone: [facility] 12-12-2005 hepatitis A vaccine, unspecified formulation Tori Martinez EMPLOYMENT CLERK Work Phone: [facility] 12-12-2005 tetanus toxoid, redu catherine diphtheria toxoid, and acellular pertussis vaccine, adsorbed Tori Warchol EMPLOYMENT CLERK Work Phone: [facility] 11-19-1998 diphtheria, tetanus toxoids and acellular pertussis vaccine, unspecified formulation Tori Warchol EMPLOYMENT CLERK Work Phone: [facility] 11-19-1998 measles, mumps and rubella virus vaccine Tori Warchol EMPLOYMENT CLERK Work Phone: [facility] 11-19-1998 trivalent poliovirus vaccine, live, oral Tori Warchol EMPLOYMENT CLERK Work Phone: [facility] 09-14-1995 diphtheria, tetanus toxoids and acellular pertussis vaccine, unspecified formulation Tori Warchol EMPLOYMENT CLERK Work Phone: [facility] 09-14-1995 haemophilus influenz ae type b vaccine, conjugate unspecified formulation Tori Warchol EMPLOYMENT CLERK Work Phone: [facility] 11-20-1994 DTP-Haemophilus influenzae type b conjugate vaccine Tori Warchol EMPLOYMENT CLERK Work Phone: [facility] 11-20-1994 hepatitis B vaccine, pediatric or pediatric/adolescent dosage Tori Warchol EMPLOYMENT CLERK Work Phone: [facility] 11-20-1994 measles, mumps and rubella virus vaccine Tori Warchol EMPLOYMENT CLERK Work Phone: [facility] 11-20-1994 trivalent poliovirus vaccine, live, oral Tori Warchol EMPLOYMENT CLERK Work Phone: [facility] 09-18-1994 DTP-Haemophilus influenzae type b conjugate vaccine Tori Warchol EMPLOYMENT CLERK Work Phone: [facility] 09-18-1994 hepatitis B vaccine, pediatric or pediatric/adolescent dosage Tori Warchol EMPLOYMENT CLERK Work Phone: [facility] 09-18-1994 trivalent poliovirus vaccine, live, oral Tori Warchol EMPLOYMENT CLERK Work Phone: [facility] 1993 diphtheria, tetanus toxoids and pertussis vaccine Tori Warchol EMPLOYMENT CLERK Work Phone: [facility] 1993 haemophilus influenz ae type b vaccine, conjugate unspecified formulation Tori Warchol EMPLOYMENT CLERK Work Phone: [facility] 1993 hepatitis B vaccine, pediatric or pediatric/adolescent dosage Tori Martinez EMPLOYMENT CLERK Work Phone: [facility] 1993 trivalent poliovirus vaccine, live, oral Tori Martinez EMPLOYMENT CLERK Work Phone: [facility] Payers Date Payer Category Payer Self-pay [id number] 2023 Medicaid [id number] 2022 Blue Cross Blue Shield [id number] 2022 Unknown BCBS BCBS [id number] 2022-[facility] [phone] [address] [place] [address] [id number] 2017 Private Health Insurance [id number] 1993 Unknown [id number] 2.16840.1.186150.3.579.2.1 76 1993 Unknown [id number] 2.16.840.1.859529.3.579.2.1 76 1993 Unknown [id number] 2.16.840.1.994729.3.579.2.5 93 1993 Unknown [id number] 2.16.840.1.885469.3.579.2.5 93 1993 Unknown [id number] 2.16.840.1.758833.3.579.2.5 93 1993 Unknown [id number] 2.16.840.1.507939.3.579.2.5 93 1993 Unknown [id number] 2.16.840.1.116459.3.579.2.5 93 1993 Unknown [id number] 2.16.840.1.115416.3.579.2.5 93 1993 Unknown [id number] 2.16.840.1.061026.3.579.2.5 93 1993 Unknown [id number] 2.16.840.1.022736.3.579.2.5 93 1993 Unknown [id number] 2.16.840.1.156764.3.579.2.5 93 1993 Unknown [id number] 2.16.840.1.052803.3.579.2.5 93 1993 Unknown [id number] 2.16.840.1.633282.3.579.2.5 93 1993 Unknown [id number] 2.16840.1.150823.3.579.2.5 93 1993 Unknown [id number] 2.16840.1.096488.3.579.2.5 93 1993 Unknown [id number] 2.16840.1.697915.3.579.2.5 93 1993 Unknown [id number] 2.16840.1.290928.3.579.2.1 259 1993 Unknown [id number] 2.16840.1.398363.3.579.2.1 259 1993 Unknown [id number] 2.16.840.1.508911.3.579.2.1 259 1993 Unknown [id number] 2.16.840.1.751219.3.579.2.1 259 1993 Unknown [id number] 2.16.840.1.665054.3.579.2.1 259 1993 Unknown [id number] 2.16.840.1.844155.3.579.2.1 259 1993 Unknown [id number] 2.16840.1.918519.3.579.2.1 259 1993 Unknown [id number] 2.16.840.1.086940.3.579.2.1 259 1993 Unknown [id number] 2.16.840.1.889035.3.579.2.1 259 1993 Unknown [id number] 2.16.840.1.203241.3.579.2.1 259 1993 Unknown [id number] 2.16.840.1.910264.3.579.2.1 259 1959 Self-pay [id number] 1959 Unknown [id number] 1959 Unknown [id number] 1959 Unknown [id number] Unknown [id number] 2.16.840.1.163982.3.579.2.5 93 Unknown HCAP/HFA/FAP Active [id number] Unknown [id number] 2.16.840.1.869540.3.579.2.5 31 Social History Date Type Detail Facility Start: 08-27-2016 End: 09-25-2022 Tobacco smoking status NVIS Never smoked tobacco [facility] Start: 09-25-2022 Tobacco use and exposure Smoke less tobacco non-user [facility] Start: 04-16-2023 End: 04-13-2024 Alcohol intake Current drinker of alcohol (finding) [facility] Start: 04-16-2023 End: 05-03-2024 Alcohol intake [facility] Start: 01-15-2023 End: 05-03-2024 Alcohol Use [...] female gender (finding) [facility] Start: 10-08-2023 [facility] Start: 05-03-2024 End: 05-09-2024 Alcoholic beverage intake Ex-drinker (finding) [facility] Medical Equipment Procedure Code Equipment Code Equipment Origin al Text Equipment Identifier Dates 1 strip by In Vi tro route Daily Use in the morning prior to breakfast, 1 hour after each meal for a total of 4times daily. [id number] Start: 03-21-2024 End: 04-20-2024 1 each by In Vit ro route Daily Use to check FSBS four times daily [id number] Start: 03-21-2024 End: 04-20-2024 Clinical Notes 06-02-2023 to 05-09-2024 FERN Luis - 05/09/2024 3:50 PM Carmen Martinez NP - 05/03/2024 4:40 PM ESTPatient Letty Azul LPN - 04/21/2024 8:30 AM FERN Chin - 04/13/2024 4:00 PM EST Note Date & Type Note Facility 05-09-2024 History of Presen t illness Narrative Reason [...] LEVOXYL) 88 mcg, Oral, Every 24 hours Magnesium 400 mg, Daily montelukast (SINGULAIR) 10 [...] esophagitis 09/01/2022 Moderate persistent asthma without complication ([facility]) 09/01/2022 Hypothyroidism, unspecified ([facility]) 03/02/2020 Moderate asthma ([facility]) 01/11/2024 30 weeks gestation of 04/21/2024 Third trimester 04/21/2024 Resolved Ambulatory Problems Diagnosis Date Noted Acquired hypothyroidism ([facility]) 09/01/2022 Allergic rhinitis 09/01/2022 Amenorrhea 09/01/2022 Asthma without status asthmaticus ([facility]) 09/01/2022 Attention deficit hyperactivity disorder ([facility]) 09/01/2022 Asthma affecting , antepartum ([facility]) 09/01/2022 Binge eating disorder 09/01/2022 Difficulty concentrating 09/01/2022 Irregular menstrual cycle 09/01/2022 Left sided sciatica 09/01/2022 Insomnia 09/01/2022 Migraines ([facility]) 09/01/2022 Metallic taste 09/01/2022 Mild persistent asthma without complication ([facility] [facility] 09/01/2022 MTHFR mutation 09/01/2022 Nondependent cannabis abuse 09/01/2022 Other chronic pain 09/01/2022 Seasonal allergies 09/01/2022 Skin sensation disturbance 09/01/2022 Transitory mood disturbance 09/01/2022 Verruca plantaris 09/01/2022 Past Medical History: Diagnosis Date Acid reflux ADHD (attention deficit hyperactivity disorder) ([facility]) Asthma ([facility]) GERD (gastroesophageal reflux disease) Hypothyroid ([facility]) Lactose intolerance Marijuana use Migraine ([facility]) Mild persistent asthma, uncomplicated ([facility]) Supervision of normal Thyroid disease ([facility]) HISTORY PAST MEDICAL HISTORY SOCIAL HISTORY Past Medical History: Diagnosis Date Acid reflux ADHD (attention deficit hyperactivity disorder) ([facility]) Asthma ([facility]) Asthma affecting , antepartum ([facility]) GERD (gastroesophageal reflux disease) Hypothyroid ([facility]) Lactose intolerance Marijuana use Migraine ([facility]) Mild persistent asthma, uncomplicated ([facility]) MTHFR mutation Seasonal allergies Supervision of normal Thyroid disease ([facility]) Social History Tobacco Use Smoking status: Never Smokeless tobacco: Never Substance Use Topics Alcohol use: Not Currently Alcohol/week: 2.0 standard drinks of alcohol Types: [...] 2008 Plica band removal, left knee arthroscopy MS BREAST REDUCTION 10/2018 TONSILLECTOMY 1998 REVIEW OF [...] reviewed. Vitals: Estimated body mass index is 32.61 kg/m as calculated from the following: Height as of 05/03/24: 5' 4 . Weight as of this encounter: 190 lb. BP: 120/82 Patient's last menstrual period was 09/24/2023 (exact date). ASSESSMENT & PLAN ICD-10-CM 1. 32 weeks gestation of Z3A.32 POCT urinalysis dipstick manually resulted 2. Third trimester Z34.93 POCT urinalysis dipstick manually resulted Return OB: Patient presents today for a routine obstetrics appointment. Patient is currently 32w4d . Patient states she is doing well but has complaints of uri, pt recently seen in er and placed on augmentin and given decadron. BS slightly elevated post steroid and have leveled back down. Pt continues to have sinus pressure and congestion. Patient has verbalizes frequent movement. labor precautions was discussed/given and patient was instructed to perform kick counts three times a day. Orders Placed This Encounter Procedures POCT urinalysis dipstick manually resulted Follow Up: Patient is to return to office in 2 week for routine OB appointment. Documented by FERN Luis on behalf of: FERN Luis documented in this encounter [facility] 05-03-2024 History of Presen t illness Narrative ADRIEN Johnson is a 28 y.o. female who [...] each, Rfl: 3 Blood Glucose Monitoring Suppl ([employer] Glucometer) w/Device kit, 1 kit Daily Use [...] - 9 Protein, UA Trace Negative - 1999(20) ++++ mg/dL Urobilinogen, UA [...] not improve . documented in this encounter [facility] 05-03-2024 Instructions Tori Martinez NP - 05/03/2024 4:40 PM EST PATIENT EDUCATION: ER follow-up The patient was seen today in follow-up of recent hospital ER/UC visit. All available records/labs/diagnostics were reviewed and discussed with the patient. ER/UC discharge meds were reviewed. Any changes to plan are noted above. documented in this encounter [facility] 04-21-2024 History of Presen t illness Narrative [...] esophagitis 09/01/2022 Moderate persistent asthma without complication ([facility]) 09/01/2022 Hypothyroidism, unspecified ([facility]) 03/02/2020 Moderate asthma ([facility]) 01/11/2024 30 weeks gestation of 04/21/2024 Third trimester 04/21/2024 Resolved Ambulatory Problems Diagnosis Date Noted Acquired hypothyroidism ([facility]) 09/01/2022 Allergic rhinitis 09/01/2022 Amenorrhea 09/01/2022 Asthma without status asthmaticus ([facility]) 09/01/2022 Attention deficit hyperactivity disorder ([facility]) 09/01/2022 Asthma affecting , antepartum ([facility]) 09/01/2022 Binge eating disorder 09/01/2022 Difficulty concentrating 09/01/2022 Irregular menstrual cycle 09/01/2022 Left sided sciatica 09/01/2022 Insomnia 09/01/2022 Migraines ([facility]) 09/01/2022 Metallic taste 09/01/2022 Mild persistent asthma without complication ([facility]) 09/01/2022 MTHFR mutation 09/01/2022 Nondependent cannabis abuse 09/01/2022 Other chronic pain 09/01/2022 Seasonal allergies 09/01/2022 Skin sensation disturbance 09/01/2022 Transitory mood disturbance 09/01/2022 Verruca plantaris 09/01/2022 Past Medical History: Diagnosis Date Acid reflux ADHD (attention deficit hyperactivity disorder) ([facility]) Asthma ([facility]) GERD (gastroesophageal reflux disease) Hypothyroid ([facility]) Lactose intolerance Marijuana use Migraine ([facility]) Mild persistent asthma, uncomplicated ([facility]) Supervision of normal Thyroid disease ([facility]) HISTORY PAST MEDICAL HISTORY SOCIAL HISTORY Past Medical History: Diagnosis Date Acid reflux ADHD (attention deficit hyperactivity disorder) ([facility]) Asthma ([facility]) Asthma affecting , antepartum ([facility]) GERD (gastroesophageal reflux disease) Hypothyroid ([facility]) Lactose intolerance Marijuana use Migraine ([facility]) Mild persistent asthma, uncomplicated ([facility]) MTHFR mutation Seasonal allergies Supervision of normal Thyroid disease ([facility]) Social History Tobacco Use Smoking status: Never [...] 2008 Plica band removal, left knee arthroscopy MS BREAST REDUCTION 10/2018 TONSILLECTOMY 1998 REVIEW OF [...] nursing note reviewed. Exam conducted with a assistant women's rowing coach present. Vitals: Estimated body mass index is [...] Herber Coto DO documented in this encounter [facility] 04-13-2024 History of Presen t illness Narrative [...] to check FSBS. Blood Glucose Monitoring Suppl ([employer] Glucometer) w/Device kit 1 kit, Does not [...] esophagitis 09/01/2022 Moderate persistent asthma without complication ([facility]) 09/01/2022 Hypothyroidism, unspecified ([facility]) 03/02/2020 Moderate asthma ([facility]) 01/11/2024 Resolved Ambulatory Problems Diagnosis Date Noted Acquired hypothyroidism ([facility]) 09/01/2022 Allergic rhinitis 09/01/2022 Amenorrhea 09/01/2022 Asthma without status asthmaticus ([facility]) 09/01/2022 Attention deficit hyperactivity disorder ([facility]) 09/01/2022 Asthma affecting , antepartum ([facility]) 09/01/2022 Binge eating disorder 09/01/2022 Difficulty concentrating 09/01/2022 Irregular menstrual cycle 09/01/2022 Left sided sciatica 09/01/2022 Insomnia 09/01/2022 Migraines ([facility]) 09/01/2022 Metallic taste 09/01/2022 Mild persistent asthma without complication ([facility]) 09/01/2022 MTHFR mutation 09/01/2022 Nondependent cannabis abuse 09/01/2022 Other chronic pain 09/01/2022 Seasonal allergies 09/01/2022 Skin sensation disturbance 09/01/2022 Transitory mood disturbance 09/01/2022 Verruca plantaris 09/01/2022 Past Medical History: Diagnosis Date Acid reflux ADHD (attention deficit hyperactivity disorder) ([facility]) Asthma ([facility]) GERD (gastroesophageal reflux disease) Hypothyroid ([facility]) Lactose intolerance Marijuana use Migraine ([facility]) Mild persistent asthma, uncomplicated ([facility]) Supervision of normal Thyroid disease ([facility]) HISTORY PAST MEDICAL HISTORY SOCIAL HISTORY Past Medical History: Diagnosis Date Acid reflux ADHD (attention deficit hyperactivity disorder) (CMS/HCC) Asthma (CMS/HCC) Asthma affecting , antepartum (CMS/HCC) GERD (gastroesophageal reflux disease) Hypothyroid (CMS/HCC) Lactose intolerance Marijuana use Migraine (CMS/HCC) Mild persistent asthma, uncomplicated (CMS/HCC) MTHFR mutation Seasonal allergies Supervision of normal Thyroid disease ([facility]) Social History Tobacco Use Smoking status: Never [...] 2008 Plica band removal, left knee arthroscopy MS BREAST REDUCTION 10/2018 TONSILLECTOMY 1998 REVIEW OF [...] of: FERN Luis documented in this encounter [facility] 04-06-2024 History of Presen t illness Narrative [...] tablet As directed Blood Glucose Monitoring Suppl (D-[employer]ies Glucometer) w/Device kit 1 kit, Does not [...] esophagitis 09/01/2022 Moderate persistent asthma without complication ([facility]) 09/01/2022 Hypothyroidism, unspecified ([facility]) 03/02/2020 Moderate asthma ([facility]) 01/11/2024 Resolved Ambulatory Problems Diagnosis Date Noted Acquired hypothyroidism ([facility]) 09/01/2022 Allergic rhinitis 09/01/2022 Amenorrhea 09/01/2022 Asthma without status asthmaticus ([facility]) 09/01/2022 Attention deficit hyperactivity disorder ([facility]) 09/01/2022 Asthma affecting , antepartum ([facility]) 09/01/2022 Binge eating disorder 09/01/2022 Difficulty concentrating 09/01/2022 Irregular menstrual cycle 09/01/2022 Left sided sciatica 09/01/2022 Insomnia 09/01/2022 Migraines ([facility]) 09/01/2022 Metallic taste 09/01/2022 Mild persistent asthma without complication ([facility]) 09/01/2022 MTHFR mutation 09/01/2022 Nondependent cannabis abuse 09/01/2022 Other chronic pain 09/01/2022 Seasonal allergies 09/01/2022 Skin sensation disturbance 09/01/2022 Transitory mood disturbance 09/01/2022 Verruca plantaris 09/01/2022 Past Medical History: Diagnosis Date Acid reflux ADHD (attention deficit hyperactivity disorder) ([facility]) Asthma ([facility]) GERD (gastroesophageal reflux disease) Hypothyroid ([facility]) Lactose intolerance Marijuana use Migraine ([facility]) Mild persistent asthma, uncomplicated ([facility]) Supervision of normal Thyroid disease ([facility]) HISTORY PAST MEDICAL HISTORY SOCIAL HISTORY Past Medical History: Diagnosis Date Acid reflux ADHD (attention deficit hyperactivity disorder) ([facility]) Asthma ([facility]) Asthma affecting , antepartum ([facility]) GERD (gastroesophageal reflux disease) Hypothyroid ([facility]) Lactose intolerance Marijuana use Migraine ([facility]) Mild persistent asthma, uncomplicated ([facility]) MTHFR mutation Seasonal allergies Supervision of normal Thyroid disease ([facility]) Social History Tobacco Use Smoking status: Never [...] 2008 Plica band removal, left knee arthroscopy MS BREAST REDUCTION 10/2018 TONSILLECTOMY 1998 REVIEW OF [...] one week. We will send order to [facility] for diabetic teaching and follow up with her next week. Orders Placed This Encounter Procedures POCT urinalysis dipstick manually resulted Follow Up: Patient is to return to office in 2 week for routine OB appointment. Documented by FERN Luis on behalf of: FERN Luis documented in this encounter [facility] 03-09-2024 History of Presen t illness Narrative [...] esophagitis 09/01/2022 Moderate persistent asthma without complication ([facility]) 09/01/2022 Hypothyroidism, unspecified ([facility]) 03/02/2020 Moderate asthma ([facility]) 01/11/2024 Resolved Ambulatory Problems Diagnosis Date Noted Acquired hypothyroidism ([facility]) 09/01/2022 Allergic rhinitis 09/01/2022 Amenorrhea 09/01/2022 Asthma without status asthmaticus ([facility]) 09/01/2022 Attention deficit hyperactivity disorder ([facility]) 09/01/2022 Asthma affecting , antepartum ([facility]) 09/01/2022 Binge eating disorder 09/01/2022 Difficulty concentrating 09/01/2022 Irregular menstrual cycle 09/01/2022 Left sided sciatica 09/01/2022 Insomnia 09/01/2022 Migraines ([facility]) 09/01/2022 Metallic taste 09/01/2022 Mild persistent asthma without complication ([facility]) 09/01/2022 MTHFR mutation 09/01/2022 Nondependent cannabis abuse 09/01/2022 Other chronic pain 09/01/2022 Seasonal allergies 09/01/2022 Skin sensation disturbance 09/01/2022 Transitory mood disturbance 09/01/2022 Verruca plantaris 09/01/2022 Past Medical History: Diagnosis Date Acid reflux ADHD (attention deficit hyperactivity disorder) ([facility]) Asthma ([facility]) GERD (gastroesophageal reflux disease) Hypothyroid ([facility]) Lactose intolerance Marijuana use Migraine ([facility]) Mild persistent asthma, uncomplicated ([facility]) Supervision of normal Thyroid disease ([facility]) HISTORY PAST MEDICAL HISTORY SOCIAL HISTORY Past Medical History: Diagnosis Date Acid reflux ADHD (attention deficit hyperactivity disorder) ([facility]) Asthma ([facility]) Asthma affecting , antepartum ([facility]) GERD (gastroesophageal reflux disease) Hypothyroid ([facility]) Lactose intolerance Marijuana use Migraine ([facility]) Mild persistent asthma, uncomplicated ([facility]) MTHFR mutation Seasonal allergies Supervision of normal Thyroid disease ([facility]) Social History [...] 2008 Plica band removal, left knee arthroscopy MS BREAST REDUCTION 10/2018 TONSILLECTOMY 1998 REVIEW OF [...] of: FERN Luis documented in this encounter [facility] 03-09-2024 Miscellaneous Notes Addended by: NIALL CONSTANTINO on: 03/10/2024 09:01 AM Modules accepted: Orders documented in this encounter [facility] 03-09-2024 Note Addended by: NIALL CLEVELAND on: 03/10/2024 09:01 AM Modules accepted: Orders [facility] 03-09-2024 Note Addended by: NIALL CLEVELAND on: 03/10/2024 09:01 AM Modules accepted: Orders [facility] 02-10-2024 History of Presen t illness [...] esophagitis 09/01/2022 Moderate persistent asthma without complication ([facility]) 09/01/2022 Hypothyroidism, unspecified ([facility]) 03/02/2020 Moderate asthma ([facility]) 01/11/2024 Resolved Ambulatory Problems Diagnosis Date Noted Acquired hypothyroidism ([facility]) 09/01/2022 Allergic rhinitis 09/01/2022 Amenorrhea 09/01/2022 Asthma without status asthmaticus ([facility]) 09/01/2022 Attention deficit hyperactivity disorder ([facility]) 09/01/2022 Asthma affecting , antepartum ([facility]) 09/01/2022 Binge eating disorder 09/01/2022 Difficulty concentrating 09/01/2022 Irregular menstrual cycle 09/01/2022 Left sided sciatica 09/01/2022 Insomnia 09/01/2022 Migraines ([facility]) 09/01/2022 Metallic taste 09/01/2022 Mild persistent asthma without complication ([facility]) 09/01/2022 MTHFR mutation 09/01/2022 Nondependent cannabis abuse 09/01/2022 Other chronic pain 09/01/2022 Seasonal allergies 09/01/2022 Skin sensation disturbance 09/01/2022 Transitory mood disturbance 09/01/2022 Verruca plantaris 09/01/2022 Past Medical History: Diagnosis Date Acid reflux ADHD (attention deficit hyperactivity disorder) ([facility]) Asthma ([facility]) GERD (gastroesophageal reflux disease) Hypothyroid ([facility]) Lactose intolerance Marijuana use Migraine ([facility]) Mild persistent asthma, uncomplicated ([facility]) Supervision of normal Thyroid disease ([facility]) HISTORY PAST MEDICAL HISTORY SOCIAL HISTORY Past Medical History: Diagnosis Date Acid reflux ADHD (attention deficit hyperactivity disorder) (CMS/HCC) Asthma ([facility]) Asthma affecting , antepartum ([facility]) GERD (gastroesophageal reflux disease) Hypothyroid (CMS/HCC) Lactose intolerance Marijuana use Migraine (CMS/HCC) Mild persistent asthma, uncomplicated (CMS/HCC) MTHFR mutation Seasonal allergies Supervision of normal Thyroid disease ([facility]) Social History Tobacco Use Smoking status: Never [...] 2008 Plica band removal, left knee arthroscopy MS BREAST REDUCTION 10/2018 TONSILLECTOMY 1998 REVIEW OF [...] Herber Coto DO documented in this encounter [facility] 01-11-2024 History of Presen t illness Narrative [...] esophagitis 09/01/2022 Moderate persistent asthma without complication ([facility]) 09/01/2022 Hypothyroidism, unspecified ([facility]) 03/02/2020 Resolved Ambulatory Problems Diagnosis Date Noted Acquired hypothyroidism ([facility]) 09/01/2022 Allergic rhinitis 09/01/2022 Amenorrhea 09/01/2022 Asthma without status asthmaticus ([facility]) 09/01/2022 Attention deficit hyperactivity disorder ([facility]) 09/01/2022 Asthma affecting , antepartum ([facility]) 09/01/2022 Binge eating disorder ([facility]) 09/01/2022 Difficulty concentrating 09/01/2022 Irregular menstrual cycle 09/01/2022 Left sided sciatica 09/01/2022 Insomnia 09/01/2022 Migraines ([facility]) 09/01/2022 Metallic taste 09/01/2022 Mild persistent asthma without complication ([facility]) 09/01/2022 MTHFR mutation 09/01/2022 Nondependent cannabis abuse 09/01/2022 Other chronic pain 09/01/2022 Seasonal allergies 09/01/2022 Skin sensation disturbance 09/01/2022 Transitory mood disturbance 09/01/2022 Verruca plantaris 09/01/2022 Past Medical History: Diagnosis Date Acid reflux ADHD (attention deficit hyperactivity disorder) ([facility]) Asthma ([facility]) GERD (gastroesophageal reflux disease) Hypothyroid ([facility]) Lactose intolerance Marijuana use Migraine ([facility]) Mild persistent asthma, uncomplicated ([facility]) Supervision of normal Thyroid disease ([facility]) HISTORY PAST MEDICAL HISTORY SOCIAL HISTORY Past Medical History: Diagnosis Date Acid reflux ADHD (attention deficit hyperactivity disorder) ([facility]) Asthma ([facility]) Asthma affecting , antepartum ([facility]) GERD (gastroesophageal reflux disease) Hypothyroid ([facility]) Lactose intolerance Marijuana use Migraine ([facility]) Mild persistent asthma, uncomplicated ([facility]) MTHFR mutation Seasonal allergies Supervision of normal Thyroid disease ([facility]) Social History [...] 2008 Plica band removal, left knee arthroscopy MS BREAST REDUCTION 10/2018 TONSILLECTOMY 1998 REVIEW OF [...] nursing note reviewed. Exam conducted with a assistant women's rowing coach present. Vitals: Estimated body mass index is [...] or undercooked meat, and stay away from [facility]. Patient has been consulted regarding any [...] done she will reach out to office. Shop Clerk will be notified at time of delivery [...] . Informed patient since she sees a Benefits Consultant to schedule appointment to make sure asthma is controlled during . Patient is currently taking [employer] Chewable kids vitamins. Patient is taking 2 [...] Herber Coto DO documented in this encounter [facility] 06-04-2023 Telephone encount er Note Sent [facility] 06-04-2023 Miscellaneous Notes Formattin g of this note might be different from the original. Sent Patient requesting refill/[place] documented in this encounter [facility] 06-02-2023 Telephone encount er Note Patient requesting refill/[place] [facility] Evaluation note Diagnosis Attention deficit hyperactivity disorder (ADHD), combined type ([facility]) documented in this encounter [facility] HealthcareEvaluation noteNo [facility] Phone: Evaluation note* Diagnosis Well woman exam with routine gynecological exam Routine gynecological examination Screening, , for anatomic survey Encounter for anatomic survey Second trimester state, incidental 19 weeks gestation of Screen for STD (sexually transmitted disease) Screening examination for venereal disease Vaginal discharge Leukorrhea, not specified as infective headache in second trimester documented in this encounter [facility] HealthcareEvaluation note* Diagnosis Encounter for follow-up [...] discharge- Primary documented in this encounter [facility]Evaluation note* Diagnosis 32 weeks gestation of Third trimester state, incidental [...] section and content) DATE CREATED AUTHOR 11/18/2018 [facility] DATE CREATED AUTHOR AUTHOR'S ORGANIZ ATION 11/26/2018 [facility] DATE CREATED AUTHOR AUTHOR'S ORGANIZ ATION 09/09/2022 [facility] DATE CREATED AUTHOR AUTHOR'S ORGANIZ ATION 03/16/2024 [facility] DATE CREATED AUTHOR AUTHOR'S ORGANIZ ATION 05/09/2024 [facility] EPIC Reason for Visit (unrecogniz ed section and content) Reason Onset Date Comments Med Refill 06/02/2023 Reason Comments Routine Visit Care Teams (unrecognized sec tion and content) Product Engineering Manager Relationship Specialty Start Date End Date Carlos Alberto Coleman MD [address] [place] [address] PCP - General Family Medicine 09/24/22 Tori Martinez NP [address] [place] [address] Nurse Practitioner Family Medicine 09/24/22 Sofie Gr NP [address] [place] [phone] Nurse Practitioner Pulmonary Disease 04/14/23 Team Status: Active Member Role Status Dates Carlos Alberto Coleman MD Primary Care Provider Active Team Status: Inactive Member Role Status Dates Carlos Alberto Coleman MD Primary Care Provider Active S tart: July 13, 2023 End: July 13, 2023 Sofie Gr NP-C Attending Provider Active Start: July 13, 2023 End: July 13, 2023 Product Engineering Manager Relationship Specialty Start Date End Date Carlos Alberto Coleman MD [address] [place] [address] PCP - General Family Medicine 09/24/22 Tori Martinez NP [address] [place] [address] PCP - [facility] 05/28/23 Tori Martinez NP [address] [place] [address] Nurse Practitioner Family Medicine 09/24/22 Sofie Gr NP [address] [place] [address] Nurse Practitioner Pulmonary Disease 04/14/23 Product Engineering Manager Relationship Specialty Start Date End Date Carlos Alberto Coleman MD [address] [place] [address] PCP - General Family Medicine 09/24/22 Tori Martinez NP [address] [place] [address] PCP - [facility] [employer] 05/28/23 Tori Martinez NP [address] [place] [address] Nurse Practitioner Family Medicine 09/24/22 Sofie Gr NP [address] [place] [phone] Nurse Practitioner Pulmonary Disease 04/14/23 Product Engineering Manager Relationship Specialty Start Date End Date Carlos Alberto Coleman MD [address], [facility] PCP - General Family Medicine 09/24/22 Tori Martinez NP [address], [facility] PCP - [facility] 05/28/23 Tori Martinez NP [address] [place] [address] Nurse Practitioner Family Medicine 09/24/22 Sofie Gr NP [address] [place] [phone] Nurse Practitioner Pulmonary Disease 04/14/23 Product Engineering Manager Relationship Specialty Start Date End Date Carlos Alberto Coleman MD [address] [place] [address] PCP - General Family Medicine 09/24/22 Tori Martinez NP [address] [place] [address] PCP - [facility] 05/28/23 Tori Martinez NP [address] [place] [address] Nurse Practitioner Family Medicine 09/24/22 Sofie Gr EMPLOYMENT CLERK [address] [place] [address] Nurse Practitioner Pulmonary Disease 04/14/23 Product Engineering Manager Relationship Specialty Start Date End Date Carlos Alberto Coleman MD [address] [place] [phone] PCP - General Family Medicine 09/24/22 Tori Martinez NP [address], [facility] PCP - [facility] 05/28/23 Tori Martinez EMPLOYMENT CLERK [address] [place] [address] Nurse Practitioner Family Medicine 09/24/22 Sofie Gr EMPLOYMENT CLERK [address] [place] [phone] Nurse Practitioner Pulmonary Disease 04/14/23 Product Engineering Manager Relationship Specialty Start Date End Date Carlos Alberto Coleman MD [address] [place] [address] PCP - General Family Medicine 09/24/22 Tori Martinez NP [address] [place] [address] PCP - [facility] 05/28/23 Tori Martinez NP [address] [place] [address] Nurse Practitioner Family Medicine 09/24/22 Sofie Gr NP [address] [place] [phone] Nurse Practitioner Pulmonary Disease 04/14/23 Product Engineering Manager Relationship Specialty Start Date End Date Carlos Alberto Coleman MD [address] [place] [address] PCP - General Family Medicine 09/24/22 Tori Martinez NP [address] [place] [address] PCP - [facility] 05/28/23 Tori Martinez NP [address] [place] [address] Nurse Practitioner Family Medicine 09/24/22 Sofie Gr NP [address] [place] [address] Nurse Practitioner Pulmonary Disease 04/14/23 Product Engineering Manager Relationship Specialty Start Date End Date Carlos Alberto Coleman MD [address] [place] [address] PCP - General Family Medicine 09/24/22 Tori Martinez NP [address] [place] [address] PCP - [facility] 05/28/23 Tori Martinez NP [address] [place] [address] Nurse Practitioner Family Medicine 09/24/22 Sofie Gr NP [address] [place] [phone] Nurse Practitioner Pulmonary Disease 04/14/23 Product Engineering Manager Relationship Specialty Start Date End Date Carlos Alberto Coleman MD [address] [place] [address] PCP - General Family Medicine 09/24/22 Tori Martinez NP [address] [place] [address] PCP - [facility] 05/28/23 Tori Martinez NP [address] [place] [address] Nurse Practitioner Family Medicine 09/24/22 Sofie Gr NP [address] [place] [address] Nurse Practitioner Pulmonary Disease 04/14/23 Product Engineering Manager Relationship Specialty Start Date End Date Carlos Alberto Coleman MD [address] [place] [address] PCP - General Family Medicine 09/24/22 Tori Martinez NP [address] [place] [phone] PCP - [facility] [employer] 05/28/23 Tori Martinez NP [address] [place] [address] Nurse Practitioner Family Medicine 09/24/22 Sofie Gr NP [address] [place] [phone] Nurse Practitioner Pulmonary Disease 04/14/23 Product Engineering Manager Relationship Specialty Start Date End Date Carlos Alberto Coleman MD [address] [place] [place] [phone] PCP - General Family Medicine 09/24/22 Tori Martinez NP [address] [place] [phone] PCP - [facility] [employer] 05/28/23 Tori Martinez NP [address] [place] [place] [address] Nurse Practitioner Family Medicine 09/24/22 Sofie Gr, HERRERA [address] [place] [address] Nurse Practitioner Pulmonary Disease 04/14/23 Product Engineering Manager Relationship Specialty Start Date End Date Carlos Alberto Coleman MD [address] [place] [address] PCP - General Family Medicine 09/24/22 Tori Martinez EMPLOYMENT CLERK [address] [place] [address] PCP - [facility] [employer] 05/28/23 Tori Martinez NP [address] [place] [place] [address] Nurse Practitioner Family Medicine 09/24/22 Sofie Gr NP [address] [place] [place] [address] Nurse Practitioner Pulmonary Disease 04/14/23 Product Engineering Manager Relationship Specialty Start Date End Date Carlos Alberto Coleman MD [address] [place] [address] PCP - General Family Medicine 09/24/22 Tori Martinez NP [address] [place] [address] PCP - [facility] [employer] 05/28/23 Tori Martinez NP [address] [place] [address] Nurse Practitioner Family Medicine 09/24/22 Sofie Gr NP [address] [place] [address] Nurse Practitioner Pulmonary Disease 04/14/23 Goals (unrecognized [...] BE BASED ON THE PRIMARY CLINICAL RECORDS. [email or web address] provides no warranty or guarantee of the accuracy or completeness of information in this document.
[2024-05-12 08:49] VITALS: BP 111/73; PULSE 82
== END 2024-05-12 09:26 | disposition home or self-care (01) ==
LOC: FBCO 01:03 → FBC 08:41
PROVIDERS: PCP Family Medicine; Visit Provider Obstetrics & Gynecology
DX: O99.283 Endocrine, nutritional and metabolic diseases complicating pregnancy, third trimester (principal)
CPT/HCPCS: 59025

== ENCOUNTER 2024-05-16 04:04 | Outpatient (OUT) | payer BC, MEDICAID, SELFPAY ==
--- OUTSIDE RECORDS SUMMARY | 2024-05-16 04:08 | XMS_ITS | CCD ---
Author Organization [facility] Care Team Providers [facility] Name Role Phone RENEE, MODE R Referring [...] Unavailable KIEPERT, ÁNGEL Primary Care Unavailable KIEPERT, ÁGNEL Attending Unavailable KIEPERT, ÁNGEL Admitting Unavailable SACRAMENTO, DR DEANNA Lance Consulting Unavailable PAY ., [...] Alberto Coleman MD Primary Care Provider Kylee GARAGE HELPER, Tori Unavailable Maile GARAGE HELPER, Sofie R Unavailable MD Carlos Alberto Coleman Primary Care Provider HEATHER Gr Attending Provider Maile GARAGE HELPER, Sofie R Unavailable Kylee GARAGE HELPER, Tori Unavailable Sofie Gr Attending Unavailable Sofie Gr Admitting Unavailable Carlos Alberto Coleman Primary Care Unavailable SOFIE GR Attending Unavailable WARCHOL, TORI Attending Unavailable WARCHOL, TORI Attending Unavailable NNAMDI, HERBER Attending Unavailable NNAMDI, HERBER Attending Unavailable DWIGHT, TORI Attending Unavailable DWIGHT, TORI Attending Unavailable DWIGHT, TORI Attending Unavailable NNAMDI, HERBER Attending Unavailable WARCHOL, TORI Attending Unavailable DWIGHT, TORI Attending Unavailable Allergies Allergy Classification Reported Allergen(s) Allergy Type Date of Onset Reaction(s) Facility (1 source) Cefuroxime Drug Allergy 04-04-20 22 [facility] (2 sources) Ciprofloxacin Drug Allergy 04-03-20 16 [facility] (2 sources) Doxycycline Drug Allergy 05-20-19 21 vomiting [facility] (1 source) Flupenthixol Drug Allergy 04-04-20 22 [facility] (20 sources) Cefuroxime Drug Allergy 05-20-19 21 Rash [facility] (20 sources) Ciprofloxacin Drug Allergy 09-02-19 23 Shortness of breath [facility] (20 sources) Ciprofloxacin Drug Allergy 09-02-19 23 Shortness of breath [facility] (20 sources) cloNIDine Drug Allergy 03-14-20 21 [facility] (20 sources) cloNIDine Drug Allergy 09-02-19 23 [facility] (20 sources) Doxycycline Drug Allergy 05-20-19 21 GI intolerance [facility] (20 sources) Gluten Propensity to adverse reactions 11-11-19 19 [facility] (20 sources) Lactose (non-medical use) Allergy to substance 09-02-19 23 [facility] (20 sources) Lactose (non-medical use) Drug Intolerance 11-11-19 19 [facility] (20 sources) Octacosanol Drug Intolerance 11-11-19 19 [facility] (20 sources) Other Allergy to substance 11-11-19 19 [facility] (20 sources) Silver Allergy to substance 09-02-19 23 [facility] (20 sources) Wound Dressing Adhesive Drug Allergy 09-02-19 23 [facility] (1 source) Cefuroxime Drug Allergy 05-20-19 [facility] (1 source) Ciprofloxacin Drug Allergy 05-20-19 [facility] (1 source) Doxycycline Drug Allergy 05-20-19 21 [facility] Medications Current Medications Medication Drug Class(es) Dates Sig (Normalized) Sig (Original) [id number] 200 actuat albuterol 0.09 mg/actuat metered dose [...] UA Negative Negative - 4(70) +++ mg/dL [facility] Blood, UA Negative Negative - 50 Mendel/mcL [facility] Clarity, UA Clear [facility] Color, UA Yellow [facility] Glucose, UA Negative Negative - 1999(110) ++++ mg/dL [facility] Interpretation and review of laboratory results Abnormal [facility] Ketones, UA Negative Negative - 160(16) ++++ mg/dL [facility] Leukocytes, UA Positive Negative - 500+++ Leighann/mcL [facility] Comment on above: small Nitrite, UA Negative Negative - Positive [facility] pH, UA 6 5 - 9 [facility] Protein, UA Negative Negative - 1999(20) ++++ mg/dL [facility] Spec Grav, UA 1.03 1 - 1.03 [facility] Urobilinogen, UA 1.0 0.2 - 12 mg/dL Count includes the [facility] Urinalysis macro (dipstick) panel (U)on 04-21-2024 Bilirubin, UA Negative Negative - 4(70) +++ mg/dL [facility] Blood, UA Negative Negative - 50 Mendel/mcL [facility] Clarity, UA Clear [facility] Color, UA Light Yellow [facility] Glucose, UA Negative Negative - 1999(110) ++++ mg/dL [facility] Interpretation and review of laboratory results Normal [facility] Ketones, UA Negative Negative - 160(16) ++++ mg/dL [facility] Leukocytes, UA Few Negative - 500+++ Leighann/mcL [facility] Nitrite, UA Negative Negative - Positive [facility] pH, UA 5.5 5 - 9 [facility] Protein, UA Trace Negative - 1999(20) ++++ mg/dL [facility] Spec Grav, UA 1.03 1 - 1.03 [facility] Urobilinogen, UA 0.2 0.2 - 12 mg/dL Count includes the [facility] Urinalysis macro (dipstick) panel (U)on 04-13-2024 Bilirubin, UA Negative Negative - 4(70) +++ mg/dL [facility] Blood, UA Negative Negative - 50 Mendel/mcL [facility] Clarity, UA Clear [facility] Color, UA Yellow [facility] Glucose, UA Negative Negative - 1999(110) ++++ mg/dL [facility] Interpretation and review of laboratory results Normal [facility] Ketones, UA Negative Negative - 160(16) ++++ mg/dL [facility] Leukocytes, UA Negative Negative - 500+++ Leighann/mcL [facility] Nitrite, UA Negative Negative - Positive [facility] pH, UA 5.5 5 - 9 [facility] Protein, UA Negative Negative - 1999(20) ++++ mg/dL [facility] Spec Grav, UA 1.03 1 - 1.03 [facility] Urobilinogen, UA 0.2 0.2 - 12 mg/dL Count includes the [facility] Urinalysis macro (dipstick) panel (U)on 04-06-2024 Bilirubin, UA Negative Negative - 4(70) +++ mg/dL [facility] Blood, UA Negative Negative - 50 Mendel/mcL [facility] Clarity, UA Clear [facility] Color, UA Yellow [facility] Glucose, UA Negative Negative - 1999(110) ++++ mg/dL [facility] Interpretation and review of laboratory results Normal [facility] Ketones, UA Negative Negative - 160(16) ++++ mg/dL [facility] Leukocytes, UA Negative Negative - 500+++ Leighann/mcL [facility] Nitrite, UA Negative Negative - Positive [facility] pH, UA 6 5 - 9 [facility] Protein, UA Negative Negative - 1999(20) ++++ mg/dL [facility] Spec Grav, UA 1.015 1 - 1.03 [facility] Urobilinogen, UA 0.2 0.2 - 12 mg/dL Count includes the [facility] ALL CBC WITH AUTO DIFFon BASOPHILS ABSOLUTE AUTO 0 [facility] Basophils/100 WBC (Bld) 0.2 % 0.2 - 2.0 % [facility] Eosinophils/100 WBC (Bld) 0.7 % Low 0.9 - 7.0 % [facility] Erythrocyte distribution width (RBC) [Ratio] 12.3 % 11.0 - 15.0 % [facility] Hematocrit (Bld) [Volume fraction] 35.3 % Low 36.0 - 48.0 % [facility] Hemoglobin (Bld) [Mass/Vol] 11.8 g/dL Low 12.0 - 16.0 g/dL [facility] IMMATURE GRANULOCYTES ABS AUTO 0.04 High [facility] Immature granulocytes/100 WBC (Bld) 0.5 % 0.0 - 0.5 % [facility] Interpretation and review of laboratory results Abnormal [facility] LYMPHOCYTES ABSOLUTE AUTO 1.5 [facility] Lymphocytes/100 WBC (Bld) 17.1 % Low 20.5 - 60.0 % [facility] MCH (RBC) [Entitic mass] 31.1 pg 26.7 - 34.0 pg [facility] MCHC (RBC) [Mass/Vol] 33.4 g/dL 29.9 - 35.2 g/dL [facility] MCV (RBC) [Entitic vol] 93.1 fL 81.0 - 99.0 fL [facility] MONOCYTES ABSOLUTE AUTO 0.6 [facility] Monocytes/100 WBC (Bld) 7.2 % 1.7 - 12.0 % [facility] NEUTROPHILS ABSOLUTE AUTO 6.5 [facility] Neutrophils/100 WBC (Bld) 74.3 % 43.0 - 75.0 % [facility] Platelet mean volume (Bld) [Entitic vol] 10.6 fL 9.5 - 13.5 fL [facility] EO # 0.1 [facility] PLT 178 [facility] RBC 3.79 Low [facility] WBC 8.8 [facility] IGP,APTIMA HPV,AGE GDLNon AGE GDLN ACOG TESTING Note . [facility] Comment on above: TESTS RESULT FLAG UN ITS REF RANGE LAB Clinician Provided Cytology Information Source.............Cervix No. of containers..01 ThinPrep Vial Age Algo ACOG Sonja... 28- FLAG LEGEND: L-Low Normal,H-High Normal,LL-Alert Low,HH-Alert High <-Panic Low,>-Panic High,A-Abnormal,AA-Critical Abnormal Performed at: 01 =[address] [id number] Radha Browne MD, HPV APTIMA Negative Negative [facility] Comment on above: This nucleic acid am plification test detects fourteen high- risk HPV types (16,18,31,33,35,39,45,51,52,56,58,59,66,68) without differentiation. Performed at: =[address] [id number] Compensation Associate: Radha Browne MD, Phone: [phone] Performed at: [address] [id number] Compensation Associate: Radha Browne MD, Phone: [phone] IGP, APTIMA HPV, RFX 16/18,45 Note . [facility] Comment on above: TESTS RESULT FLAG UN ITS REF RANGE LAB DIAGNOSIS: 02 NEGATIVE FOR INTRAEPITHELIAL LESION OR MALIGNANCY. Specimen adequacy: 02 Satisfactory for evaluation. No endocervical component is identified. Performed by: 02 Danie Vargas, Architect Marine (ASC) . 02 Note: Note 02 The [...] High,A-Abnormal,AA-Critical Abnormal Performed at: 02 [address] [facility] [address] [id number] Radha Browne MD, SPATULA-ALONE CERVIX [facility] Cytology Cervical or vaginal smear or scraping studyon 02-10-2024 [facility] Urinalysis macro (dipstick) panel (U)on 02-10-2024 Bilirubin, UA Negative Negative - 4(70) +++ mg/dL [facility] Blood, UA Negative Negative - 50 Mendel/mcL [facility] Clarity, UA Clear [facility] Color, UA Yellow [facility] Glucose, UA Negative Negative - 1999(110) ++++ mg/dL [facility] Interpretation and review of laboratory results Abnormal [facility] Ketones, UA Negative Negative - 160(16) ++++ mg/dL [facility] Leukocytes, UA Trace Negative - 500+++ Leighann/mcL [facility] Nitrite, UA Negative Negative - Positive [facility] pH, UA 7 5 - 9 [facility] Protein, UA Negative Negative - 1999(20) ++++ mg/dL [facility] Spec Grav, UA 1.02 1 - 1.03 [facility] Urobilinogen, UA 0.2 0.2 - 12 mg/dL Count includes the [facility] ALL THYROID STIM HORMONEon 0 01-22-2024 TSH Qn 1.921 m[IU]/L [facility] Urinalysis macro (dipstick) panel (U)on 01-11-2024 Bilirubin, UA Negative Negative - 4(70) +++ mg/dL [facility] Blood, UA Negative Negative - 50 Mendle/mcL [facility] Clarity, UA Clear [facility] Color, UA Yellow [facility] Glucose, UA Negative Negative - 1999(110) ++++ mg/dL [facility] Interpretation and review of laboratory results Normal [facility] Ketones, UA Negative Negative - 160(16) ++++ mg/dL [facility] Leukocytes, UA Negative Negative - 500+++ Leighann/mcL [facility] Nitrite, UA Negative Negative - Positive [facility] pH, UA 6.0 5 - 9 [facility] Protein, UA Negative Negative - 1999(20) ++++ mg/dL [facility] Spec Grav, UA 1.015 1 - 1.03 [facility] Urobilinogen, UA 0.2 0.2 - 12 mg/dL Count includes the [facility] BioFire Not Detectedon 07-12 BioFire Not Detected Not detected Normal Not Detecte [facility] Comment on above: Result Comment: This is a duplicate RP2.1 COVID (PCR) result to be used for statistical tracking purpose only. PERFORMED BY: [place] [id number] PATHOLOGIST REPAIRER FINISHED METAL CATY NEELY M.D. Performed By: #### R RODGER PANEL UPP., BIOFIRECOVNOTDE #### [address] COVID-19 Detected/Not Detect edOrdered By: Sofie Gr on 07-13-2023 SARS-CoV-2 (COVID-19) RNA JUAN+non-probe Ql (Nph) Not detected Not Detecte [facility] Comment on above: This is [...] Influenza A H3 Blank Space PERFORMED BY: [place] [address] PATHOLOGIST REPAIRER FINISHED METAL CATY NEELY M.D. Normal [facility] Comment on above: Performed By: #### R RODGER PANEL UPP., BIOFIRECOVNOTDE #### [address] Respiratory pathogens DNA an d RNA panel - Nasopharynx by JUAN with non-probe detectionOrdered By: Sofie Gr on 07-13-2023 Respiratory pathogens DNA and RNA panel JUAN+non-probe (Nph) [facility] CBC AUTO DIFFon 06-25-2022 BASO # 0.0 103/ul Normal 0.0-0.1 [facility] Comment on above: Performed By: #### C BC #### [facility] [address] [address] [address] Garland Kohli Basophils/100 WBC (Bld) 0.4 % Normal 0.2-2.0 [facility] Comment on above: Performed By: #### C BC #### [facility] [address] [address] [address] Garland Kohli EO # 0.1 103/ul Normal 0.0-0.7 [facility] Comment on above: Performed By: #### C BC #### [facility] [address] [place] [address] Dr. Garland Kohli Eosinophils/100 WBC (Bld) 0.9 % Normal 0.9-7.0 [facility] Comment on above: Performed By: #### C BC #### [facility] [address] [place] [address] Dr. Garland Kohli Erythrocyte distribution width (RBC) [Ratio] 12.4 % Normal 11.0-15.0 [facility] Comment on above: Performed By: #### C BC #### [facility] [address] [place] [address] Dr. Garland Kohli Hematocrit (Bld) [Volume fraction] 31.4 % Critically low 36.0-48.0 [facility] Comment on above: Performed By: #### C BC #### [facility] [address] [place] [address] Dr. Garland Kohli Hemoglobin (Bld) [Mass/Vol] 10.4 g/dL Critically low 12.0-16.0 [facility] Comment on above: Performed By: #### C BC #### [facility] [address] [place] [address] Dr. Garland Kohli IG # 0.04 10e3/ul Critically high 0.00-0.03 [facility] Comment on above: Performed By: #### C BC #### [facility] [address] [place] [address] Dr. Garland Kohli IG % 0.4 % Normal 0.0-0.5 [facility] Comment on above: Performed By: #### C BC #### [facility] [address] [place] [address] Dr. Garland Kohli LYMPH # 2.0 103/ul Normal 1.2-3.8 [facility] Comment on above: Performed By: #### C BC #### [facility] [address] [place] [address] Dr. Garland Kohli Lymphocytes/100 WBC (Bld) 22.1 % Normal 20.5-60.0 [facility] Comment on above: Performed By: #### C BC #### [facility] [address] [place] [address] Dr. Garland Kohli MANUAL DIFF REQ NO Normal [facility] Comment on above: Performed By: #### C BC #### [facility] [address] [place] [address] Dr. Garland Kohli MCH (RBC) [Entitic mass] 30.1 pg Normal 26.7-34.0 [facility] Comment on above: Performed By: #### C BC #### [facility] [address] [place] [address] Dr. Garland Kohli MCHC (RBC) [Mass/Vol] 33.1 g/dL Normal 29.9-35.2 [facility] Comment on above: Performed By: #### C BC #### [facility] [address] [place] [address] Dr. Garland Kohli MCV (RBC) [Entitic vol] 91.0 fL Normal 81.0-99.0 [facility] Comment on above: Performed By: #### C BC #### [facility] [address] [place] [address] Dr. Garland Kohli MONO # 0.8 103/ul Normal 0.3-0.8 [facility] Comment on above: Performed By: #### C BC #### [facility] [address] [place] [address] Dr. Garland Kohli Monocytes/100 WBC (Bld) 8.8 % Normal 1.7-12.0 [facility] Comment on above: Performed By: #### C BC #### [facility] [address] [place] [address] Dr. Garland Kohli NEUT # 6.0 103/ul Normal 1.4-6.5 [facility] Comment on above: Performed By: #### C BC #### [facility] [address] [place] [address] Dr. Garland Kohli Neutrophils/100 WBC (Bld) 67.4 % Normal 43.0-75.0 [facility] Comment on above: Performed By: #### C BC #### [facility] [address] [place] [address] Dr. Garland Kohli Platelet mean volume (Bld) [Entitic vol] 12.0 fL Normal 9.5-13.5 [facility] Comment on above: Performed By: #### C BC #### [facility] [address] [place] [address] Dr. Garland Kohli PLT 151 103/ul Normal 150-450 [facility] Comment on above: Performed By: #### C BC #### [facility] [address] [place] [address] Dr. Garland Kohli RBC 3.45 106/ul Critically low 4.20-5.40 [facility] Comment on above: Performed By: #### C BC #### [facility] [address] [place] [address] Dr. Garland Kohli WBC 8.9 103/ul Normal 4.0-11.0 [facility] Comment on above: Performed By: #### C BC #### [facility] [address] [place] [address] Dr. Garland Kohli CBC AUTO DIFFon 06-23-2022 BASO # 0.0 103/ul Normal 0.0-0.1 [facility] Comment on above: Performed By: #### C BC #### [facility] [address] [place] [address] Dr. Garland Kohli Basophils/100 WBC (Bld) 0.4 % Normal 0.2-2.0 [facility] Comment on above: Performed By: #### C BC #### [facility] [address] [place] [address] Dr. Garland Kohli EO # 0.1 103/ul Normal 0.0-0.7 [facility] Comment on above: Performed By: #### C BC #### [facility] [address] [place] [address] Dr. Garland Kohli Eosinophils/100 WBC (Bld) 0.8 % Critically low 0.9-7.0 [facility] Comment on above: Performed By: #### C BC #### [facility] [address] [place] [address] Dr. Garland Kohli Erythrocyte distribution width (RBC) [Ratio] 12.4 % Normal 11.0-15.0 [facility] Comment on above: Performed By: #### C BC #### [facility] [address] [place] [address] Dr. Garland Kohli Hematocrit (Bld) [Volume fraction] 34.5 % Critically low 36.0-48.0 [facility] Comment on above: Performed By: #### C BC #### [facility] [address] [place] [address] Dr. Garland Kohli Hemoglobin (Bld) [Mass/Vol] 11.6 g/dL Critically low 12.0-16.0 [facility] Comment on above: Performed By: #### C BC #### [facility] [address] [place] [address] Dr. Garland Kohli IG # 0.04 10e3/ul Critically high 0.00-0.03 [facility] Comment on above: Performed By: #### C BC #### [facility] [address] [place] [address] Dr. Garland Kohli IG % 0.5 % Normal 0.0-0.5 [facility] Comment on above: Performed By: #### C BC #### [facility] [address] [place] [address] Dr. Garland Kohli LYMPH # 1.3 103/ul Normal 1.2-3.8 [facility] Comment on above: Performed By: #### C BC #### [facility] [address] [place] [address] Dr. Garland Kohli Lymphocytes/100 WBC (Bld) 17.6 % Critically low 20.5-60.0 [facility] Comment on above: Performed By: #### C BC #### [facility] [address] [place] [address] Dr. Garland Kohli MANUAL DIFF REQ NO Normal [facility] Comment on above: Performed By: #### C BC #### [facility] [address] [place] [address] Dr. Garland Kohli MCH (RBC) [Entitic mass] 29.6 pg Normal 26.7-34.0 [facility] Comment on above: Performed By: #### C BC #### [facility] [address] [place] [address] Dr. Garland Kohli MCHC (RBC) [Mass/Vol] 33.6 g/dL Normal 29.9-35.2 [facility] Comment on above: Performed By: #### C BC #### [facility] [address] [place] [address] Dr. Garland Kohli MCV (RBC) [Entitic vol] 88.0 fL Normal 81.0-99.0 [facility] Comment on above: Performed By: #### C BC #### [facility] [address] [place] [address] Dr. Garland Kohli MONO # 0.9 103/ul Critically high 0.3-0.8 [facility] Comment on above: Performed By: #### C BC #### [facility] [address] [place] [address] Dr. Garland Kohli Monocytes/100 WBC (Bld) 11.7 % Normal 1.7-12.0 [facility] Comment on above: Performed By: #### C BC #### [facility] [address] [place] [address] Dr. Garland Kohli NEUT # 5.1 103/ul Normal 1.4-6.5 [facility] Comment on above: Performed By: #### C BC #### [facility] [address] [place] [address] Dr. Garland Kohli Neutrophils/100 WBC (Bld) 69.0 % Normal 43.0-75.0 [facility] Comment on above: Performed By: #### C BC #### [facility] [address] [place] [address] Dr. Garland Kohli Platelet mean volume (Bld) [Entitic vol] 12.1 fL Normal 9.5-13.5 [facility] Comment on above: Performed By: #### C BC #### [facility] [address] [place] [address] Dr. Garland Kohli PLT 193 103/ul Normal 150-450 [facility] Comment on above: Performed By: #### C BC #### [facility] [address] [address] [address] Garland Kohli RBC 3.92 106/ul Critically low 4.20-5.40 [facility] Comment on above: Performed By: #### C BC #### [facility] [address] [place] [address] Dr. Garland Kohli WBC 7.4 103/ul Normal 4.0-11.0 [facility] Comment on above: Performed By: #### C BC #### [facility] [address] [place] [address] Dr. Garland Kohli DRUG SCREEN RAPID (URINE)on 06-23-2022 AMP Negative Normal NEGATIVE [facility] Comment on above: Performed By: #### D RUGRPD #### [facility] [address] [place] [address] Dr. Garland Kohli BAR Negative Normal NEGATIVE [facility] Comment on above: Performed By: #### D RUGRPD #### [facility] [address] [place] [address] Dr. Garland Kohli BUP Negative Normal NEGATIVE [facility] Comment on above: Performed By: #### D RUGRPD #### [facility] [address] [place] [address] Dr. Garland Kohli BZO Negative Normal NEGATIVE [facility] Comment on above: Performed By: #### D RUGRPD #### [facility] [address] [place] [address] Dr. Garland Kohli JUANI Negative Normal NEGATIVE [facility] Comment on above: Performed By: #### D RUGRPD #### [facility] [address] [place] [address] Dr. Garland Kohli CUT-OFFS SEE BELOW Normal [facility] Comment on above: Result Comment: [...] ng/mL Performed By: #### D RUGRPD #### [facility] [address] [place] [address] Dr. Garland Kohli DRUG CUT HEADER DRUG CLASS TEST SYSTEM CUT-OFF CONCENTRATIONS ARE FOLLOWS: Normal [facility] Comment on above: Performed By: #### D RUGRPD #### [facility] [address] [place] [address] Dr. Garland Kohli mAMP Negative Normal NEGATIVE [facility] Comment on above: Performed By: #### D RUGRPD #### [facility] [address] [place] [address] Dr. Garland Kohli MTD Negative Normal NEGATIVE [facility] Comment on above: Performed By: #### D RUGRPD #### [facility] [address] [place] [address] Dr. Garland Kohli OPI Negative Normal NEGATIVE [facility] Comment on above: Performed By: #### D RUGRPD #### [facility] [address] [place] [address] Dr. Garland Kohli OXY Negative Normal NEGATIVE [facility] Comment on above: Performed By: #### D RUGRPD #### [facility] [address] [place] [address] Dr. Garland Kohli PCP Negative Normal NEGATIVE [facility] Comment on above: Performed By: #### D RUGRPD #### [facility] [address] [place] [address] Dr. Garland Kohli PPX Negative Normal NEGATIVE [facility] Comment on above: Performed By: #### D RUGRPD #### [facility] [address] [place] [address] Dr. Garland Kohli TCA Negative Normal NEGATIVE [facility] Comment on above: Performed By: #### D RUGRPD #### [facility] [address] [place] [address] Dr. Garland Kohli THC Negative Normal NEGATIVE [facility] Comment on above: Performed By: #### D RUGRPD #### [facility] [address] [place] [address] Dr. Garland Kohli TYPE AND SCREENon 06-23-2022 TYPE AND SCREEN Negative Normal [facility] Comment on above: Performed By: #### T NS #### [facility] [address] [place] [address] Dr. Garland Kohli FREE T4on 06-07-2022 Free T4 [Mass/Vol] 0.76 ng/dL Normal 0.76-1.46 [facility] Comment on above: Performed By: #### C BC #### [facility] [address] [place] [address] Dr. Garland Kohli TSHon 06-07-2022 TSH 1.393 uIU/mL Normal 0.358-3.740 [facility] Comment on above: Performed By: #### T SH #### [facility] [address] [place] [address] Dr. Garland Kohli GROUP B STREP CULTUREon S. agalactiae Ag Ql (Unsp spec) Culture Observations: NEGATIVE FOR GROUP B STREPTOCOCCUS. [facility] Comment on above: Performed By: #### C BC #### [facility] [address] [place] [address] Dr. Garland Kohli GTT 3 HR PREGon 04-16-2022 Glucose [Mass/Vol] 87 mg/dL Normal 74-106 [facility] Comment on above: Performed By: #### G TT3P #### [facility] [address] [address] [address] Garland Kohli Glucose [Mass/Vol] 148 mg/dL Normal [facility] Comment on above: Performed By: #### G TT3P #### [facility] [address] [place] [address] Dr. Garland Kohli Glucose [Mass/Vol] 128 mg/dL Normal [facility] Comment on above: Performed By: #### G TT3P #### [facility] [address] [place] [address] Dr. Garland Kohli Glucose [Mass/Vol] 105 mg/dL Normal [facility] Comment on above: Performed By: #### G TT3P #### [facility] [address] [place] [address] Dr. Garland Kohli CBC AUTO DIFFon 04-04-2022 BASO # 0.0 103/ul Normal 0.0-0.1 [facility] Comment on above: Performed By: #### G TT3P #### [facility] [address] [place] [address] Dr. Garland Kohli Basophils/100 WBC (Bld) 0.2 % Normal 0.2-2.0 [facility] Comment on above: Performed By: #### G TT3P #### [facility] [address] [place] [address] Dr. Garland Kohli EO # 0.0 103/ul Normal 0.0-0.7 [facility] Comment on above: Performed By: #### G TT3P #### [facility] [address] [place] [address] Dr. Garland Kohli Eosinophils/100 WBC (Bld) 0.4 % Critically low 0.9-7.0 [facility] Comment on above: Performed By: #### G TT3P #### [facility] [address] [place] [address] Dr. Garland Kohli Erythrocyte distribution width (RBC) [Ratio] 12.9 % Normal 11.0-15.0 [facility] Comment on above: Performed By: #### G TT3P #### [facility] [address] [place] [address] Dr. Garland Kohli Hematocrit (Bld) [Volume fraction] 32.5 % Critically low 36.0-48.0 [facility] Comment on above: Performed By: #### G TT3P #### [facility] [address] [place] [address] Dr. Garland Kohli Hemoglobin (Bld) [Mass/Vol] 11.2 g/dL Critically low 12.0-16.0 [facility] Comment on above: Performed By: #### G TT3P #### [facility] [address] [place] [address] Dr. Garland Kohli IG # 0.07 10e3/ul Critically high 0.00-0.03 [facility] Comment on above: Performed By: #### G TT3P #### [facility] [address] [place] [address] Dr. Garland Kohli IG % 0.8 % Critically high 0.0-0.5 [facility] Comment on above: Performed By: #### G TT3P #### [facility] [address] [place] [address] Dr. Garland Kohli LYMPH # 0.9 103/ul Critically low 1.2-3.8 [facility] Comment on above: Performed By: #### G TT3P #### [facility] [address] [place] [address] Dr. Garland Kohli Lymphocytes/100 WBC (Bld) 10.4 % Critically low 20.5-60.0 [facility] Comment on above: Performed By: #### G TT3P #### [facility] [address] [place] [address] Dr. Garland Kohli MANUAL DIFF REQ NO Normal [facility] Comment on above: Performed By: #### G TT3P #### [facility] [address] [place] [address] Dr. Garland Kohli MCH (RBC) [Entitic mass] 31.4 pg Normal 26.7-34.0 [facility] Comment on above: Performed By: #### G TT3P #### [facility] [address] [place] [address] Dr. Garland Kohli MCHC (RBC) [Mass/Vol] 34.5 g/dL Normal 29.9-35.2 [facility] Comment on above: Performed By: #### G TT3P #### [facility] [address] [place] [address] Dr. Garland Kohli MCV (RBC) [Entitic vol] 91.0 fL Normal 81.0-99.0 [facility] Comment on above: Performed By: #### G TT3P #### [facility] [address] [place] [address] Dr. Garland Kholi MONO # 1.1 103/ul Critically high 0.3-0.8 [facility] Comment on above: Performed By: #### G TT3P #### [facility] [address] [place] [address] Dr. Garland Kohli Monocytes/100 WBC (Bld) 12.5 % Critically high 1.7-12.0 [facility] Comment on above: Performed By: #### G TT3P #### [facility] [address] [place] [address] Dr. Garland Kohli NEUT # 6.3 103/ul Normal 1.4-6.5 [facility] Comment on above: Performed By: #### G TT3P #### [facility] [address] [place] [address] Dr. Garland Kohli Neutrophils/100 WBC (Bld) 75.7 % Critically high 43.0-75.0 [facility] Comment on above: Performed By: #### G TT3P #### [facility] [address] [place] [address] Dr. Garland Kohli Platelet mean volume (Bld) [Entitic vol] 10.5 fL Normal 9.5-13.5 [facility] Comment on above: Performed By: #### G TT3P #### [facility] [address] [place] [address] Dr. Garland Kohli PLT 181 103/ul Normal 150-450 [facility] Comment on above: Performed By: #### G TT3P #### [facility] [address] [address] [address] Garland Kohli RBC 3.57 106/ul Critically low 4.20-5.40 [facility] Comment on above: Performed By: #### G TT3P #### [facility] [address] [place] [address] Dr. Garland Kohli WBC 8.4 103/ul Normal 4.0-11.0 [facility] Comment on above: Performed By: #### G TT3P #### [facility] [address] [place] [address] Dr. Garland Kolhi CTA CHEST WO W CONon 022 CTA [...] DEANNA LINN Date: 2022-04-04 15:25 Normal [facility] PROF CHEM 8 (BAS METB)on Anion gap [Moles/Vol] 13.2 mmol/L Normal [facility] Comment on above: Performed By: #### G TT3P #### [facility] [address] [place] [address] Dr. Garland Kohli Calcium [Mass/Vol] 8.5 mg/dL Normal 8.5-10.1 [facility] Comment on above: Performed By: #### G TT3P #### [facility] [address] [place] [address] Dr. Garland Kohli Chloride [Moles/Vol] 103 mmol/L Normal 98-107 [facility] Comment on above: Performed By: #### G TT3P #### [facility] [address] [place] [address] Dr. Garland Kohli CO2 [Moles/Vol] 23.4 mmol/L Normal 21.0-32.0 [facility] Comment on above: Performed By: #### G TT3P #### [facility] [address] [place] [address] Dr. Garland Kohli Creatinine [Mass/Vol] 0.43 mg/dL Critically low 0.55-1.02 [facility] Comment on above: Performed By: #### G TT3P #### [facility] [address] [place] [address] Dr. Garland Kohli EGFR-AF BHUTANESE >60 Normal >=60 [facility] Comment on above: Performed By: #### G TT3P #### [facility] [address] [place] [address] Dr. Garland Kohli EGFR-NON AF BHUTANESE >60 Normal >=60 [facility] Comment on above: Performed By: #### G TT3P #### [facility] [address] [place] [address] Dr. Garland Kohli Glucose [Mass/Vol] 108 mg/dL Critically high 74-106 [facility] Comment on above: Performed By: #### G TT3P #### [facility] [address] [place] [address] Dr. Garland Kohli Potassium [Moles/Vol] 3.6 mmol/L Normal 3.5-5.1 [facility] Comment on above: Performed By: #### G TT3P #### [facility] [address] [place] [address] Dr. Garland Kohli Sodium [Moles/Vol] 136 mmol/L Normal 136-145 [facility] Comment on above: Performed By: #### G TT3P #### [facility] [address] [place] [address] Dr. Garland Kohli Urea nitrogen [Mass/Vol] 5.0 mg/dL Critically low 7.0-18.0 [facility] Comment on above: Performed By: #### G TT3P #### [facility] [address] [place] [address] Dr. Garland Kohli Urea nitrogen/Creatinine [Mass ratio] 11.6 mg/mg Normal [facility] Comment on above: Performed By: #### G TT3P #### [facility] [address] [place] [address] Dr. Garland Kohli TROPONIN, HIGH SENSITIVITYon 04-04-2022 HSTROP 9.3 pg/mL Normal 4.0-51.3 [facility] Comment on above: Result Comment: CUT- OFF POINTS HAVE BEEN ESTABLISHED BASED ON THE FOURTH UNIVERSAL DEFINITIONS OF MYOCARDIAL INFARCTION. THE UPPER REFERENCE LIMIT (URL) OF TROPONIN, DEFINED THE 99TH PERCENTILE OF cTnI DISTRIBUTION IN A REFERENCE POPULATION, HAS BEEN CONFIRMED THE DECISION THRESHOLD FOR NM DIAGNOSIS. Performed By: #### G TT3P #### [facility] [address] [place] [address] Dr. Garland Kohli CBC AUTO DIFFon 03-26-2022 BASO # 0.0 103/ul Normal 0.0-0.1 [facility] Comment on above: Performed By: #### G TT3P #### [facility] [address] [place] [address] Dr. Garland Kohli Basophils/100 WBC (Bld) 0.2 % Normal 0.2-2.0 [facility] Comment on above: Performed By: #### G TT3P #### [facility] [address] [place] [address] Dr. Garland Kohli EO # 0.1 103/ul Normal 0.0-0.7 [facility] Comment on above: Performed By: #### G TT3P #### [facility] [address] [place] [address] Dr. Garland Kohli Eosinophils/100 WBC (Bld) 1.0 % Normal 0.9-7.0 [facility] Comment on above: Performed By: #### G TT3P #### [facility] [address] [place] [address] Dr. Garland Kohli Erythrocyte distribution width (RBC) [Ratio] 12.8 % Normal 11.0-15.0 [facility] Comment on above: Performed By: #### G TT3P #### [facility] [address] [place] [address] Dr. Garland Kohli Hematocrit (Bld) [Volume fraction] 36.2 % Normal 36.0-48.0 [facility] Comment on above: Performed By: #### G TT3P #### [facility] [address] [place] [address] Dr. Garland Kohli Hemoglobin (Bld) [Mass/Vol] 12.2 g/dL Normal 12.0-16.0 [facility] Comment on above: Performed By: #### G TT3P #### [facility] [address] [place] [address] Dr. Garland Kohli IG # 0.08 10e3/ul Critically high 0.00-0.03 [facility] Comment on above: Performed By: #### G TT3P #### [facility] [address] [place] [address] Dr. Garland Kohli IG % 0.9 % Critically high 0.0-0.5 [facility] Comment on above: Performed By: #### G TT3P #### [facility] [address] [place] [address] Dr. Garland Kohli LYMPH # 1.7 103/ul Normal 1.2-3.8 [facility] Comment on above: Performed By: #### G TT3P #### [facility] [address] [place] [address] Dr. Garland Kohli Lymphocytes/100 WBC (Bld) 17.8 % Critically low 20.5-60.0 [facility] Comment on above: Performed By: #### G TT3P #### [facility] [address] [place] [address] Dr. Garland Kohli MANUAL DIFF REQ NO Normal [facility] Comment on above: Performed By: #### G TT3P #### [facility] [address] [place] [address] Dr. Graland Kohli MCH (RBC) [Entitic mass] 30.7 pg Normal 26.7-34.0 [facility] Comment on above: Performed By: #### G TT3P #### [facility] [address] [place] [address] Dr. Garland Kohli MCHC (RBC) [Mass/Vol] 33.7 g/dL Normal 29.9-35.2 [facility] Comment on above: Performed By: #### G TT3P #### [facility] [address] [place] [address] Dr. Garland Kohli MCV (RBC) [Entitic vol] 91.2 fL Normal 81.0-99.0 [facility] Comment on above: Performed By: #### G TT3P #### [facility] [address] [place] [address] Dr. Garland Kohli MONO # 0.6 103/ul Normal 0.3-0.8 [facility] Comment on above: Performed By: #### G TT3P #### [facility] [address] [place] [address] Dr. Garland Kohli Monocytes/100 WBC (Bld) 6.0 % Normal 1.7-12.0 [facility] Comment on above: Performed By: #### G TT3P #### [facility] [address] [place] [address] Dr. Garland Kohli NEUT # 6.9 103/ul Critically high 1.4-6.5 [facility] Comment on above: Performed By: #### G TT3P #### [facility] [address] [place] [address] Dr. Garland Kohli Neutrophils/100 WBC (Bld) 74.1 % Normal 43.0-75.0 [facility] Comment on above: Performed By: #### G TT3P #### [facility] [address] [place] [address] Dr. Garland Kohli Platelet mean volume (Bld) [Entitic vol] 10.2 fL Normal 9.5-13.5 [facility] Comment on above: Performed By: #### G TT3P #### [facility] [address] [address] [address] Garland Kohli PLT 217 103/ul Normal 150-450 [facility] Comment on above: Performed By: #### G TT3P #### [facility] [address] [address] [address] Garland Kohli RBC 3.97 106/ul Critically low 4.20-5.40 [facility] Comment on above: Performed By: #### G TT3P #### [facility] [address] [address] [address] Garland Kohli WBC 9.3 103/ul Normal 4.0-11.0 [facility] Comment on above: Performed By: #### G TT3P #### [facility] [address] [place] [address] Dr. Garland Kohli GLUCOSE - 1HRon 03-26-2022 Glucose [Mass/Vol] 155 mg/dL Critically high 74-106 [facility] Comment on above: Performed By: #### C BC #### [facility] [address] [place] [address] Dr. Garland Kohli US PREG ANATOMY SINGLEon [...] YAAKOV TERAN Date: 2022-02-09 19:30 Normal [facility] AFP MATERNAL FOR SPINA BIFID Aon 01-29-2022 AFP MoM 0.76 [facility] Comment on above: Performed By: #### G TT3P #### [facility] [address] [address] [address] Garland Kohli AFP Value 35.4 ng/mL [facility] Comment on above: Performed By: #### G TT3P #### [facility] [address] [address] [address] Garland Kohli AFP, Serum for Spina Bifida Report Normal [facility] Comment on above: Performed By: #### G TT3P #### [facility] [address] [address] [address] Garland Kohli Comment Comment [facility] Comment on above: Result Comment: Stanley Almodovar, Ph.D., [facility] Director . References: Available Upon Request. . Multiples Of Median Cutoffs For AFP Elevations Mark 2.5 Black 2.8 IDD 2.0 Twins 4.5 Abbreviation Definitions IDD - Insulin Dep Diabetes OSBR - Open Spina Bifida Risk . For further inquiries contact [facility] at [phone]. . This test was developed and its performance characteristics determined by [facility]. It has not been cleared or approved by the Food and Drug Administration. Performed By: #### G TT3P #### [facility] [address] [address] [address] Garland Izquierdo Age Collection Date 18.1 weeks Normal [facility] Comment on above: Performed By: #### G TT3P #### [facility] [address] [address] [address] Garland Kohli Gestat, Age Based on Ultrasound Normal [facility] Comment on above: Result Comment: 09:4 on 11/26/2021 Recalculations are not recommended when gestational dating by LMP and ultrasound are within 10 days. Performed By: #### G TT3P #### [facility] [address] [address] [address] Garland Kohli Insulin Dep Diabetes No Normal [facility] Comment on above: Performed By: #### G TT3P #### [facility] [address] [address] [address] Garland Kohli Interpretation Comment Normal [facility] Comment on above: Result Comment: Inte [...] Customer Services to discuss available options. The [employer] recommends amniocentesis be offered to women age 35 and older. Performed By: #### G TT3P #### [facility] [address] [place] [address] Dr. Garland Kohli [age] Normal [facility] Comment on above: Performed By: #### G TT3P #### [facility] [address] [place] [address] Dr. Garland Kohli Multiple Gestation No Normal [facility] Comment on above: Performed By: #### G TT3P #### [facility] [address] [place] [address] Dr. Garland Kohli OSBR Risk 1 [place] [address] [facility] Comment on above: Performed By: #### G TT3P #### [facility] [address] [place] [address] Dr. Garland Kohli PDF . [facility] Comment on above: Performed By: #### G TT3P #### [facility] [address] [place] [address] Dr. Garland Kohli Race [facility] Comment on above: Performed By: #### G TT3P #### [facility] [address] [place] [address] Dr. Garland Kohli Test Results: Negative [facility] Comment on above: Performed By: #### G TT3P #### [facility] [address] [place] [address] Dr. Garland Kohli PAP ACOG PANEL 2: 21 to 29on 01-23-2022 . . [facility] Comment on above: Performed By: #### [id number] #### [facility] [address] [place] [address] Dr. Garland Kohli Age Gdln ACOG Testing [facility] Comment on above: Performed By: #### [id number] #### [facility] [address] [place] [address] Dr. Garland Kohli DIAGNOSIS: Comment [facility] Comment on above: Result Comment: NEGA TIVE FOR INTRAEPITHELIAL LESION OR MALIGNANCY. Performed By: #### [id number] #### [facility] [address] [place] [address] Dr. Garland Kohli Methodology: Comment [facility] Comment on above: Result Comment: This liquid based ThinPrep(R) pap test was screened with the use of an image guided system. Performed By: #### [id number] #### [facility] [address] [place] [address] Dr. Garland Kohli Note: Comment [facility] Comment on above: Result Comment: The Pap smear is a screening test designed to aid in the detection of premalignant and malignant conditions of the uterine cervix. It is not a diagnostic procedure and should not be used as the sole means of detecting cervical cancer. Both false-positive and false-negative reports do occur. . Performed By: #### [id number] #### [facility] [address] [place] [address] Dr. Garland Kohli Performed by: Comment [facility] Comment on above: Result Comment: Kelly Arreguin, [employer] (ASCP) Performed By: #### [id number] #### [facility] [address] [place] [address] Dr. Garland Kohli Reflex Criteria: Comment Normal [facility] Comment on above: Result Comment: The HPV DNA reflex criteria were not met with this specimen result therefore, no HPV testing was performed. . Performed By: #### [id number] #### [facility] [address] [place] [address] Dr. Garland Kohli Specimen adequacy: Comment Normal [facility] Comment on above: Result Comment: Sati sfactory for evaluation. No endocervical component is identified. Performed By: #### [id number] #### [facility] [address] [place] [address] Dr. Garland Kohli CHLAMYDIA/GONOCOCCUS JUAN (SW AB/URINE/PAPon 01-20-2022 Chlamydia trachomatis, JUAN Negative Normal [facility] Comment on above: Performed By: #### C BC #### [facility] [address] [place] [address] Dr. Garland Kohli Neisseria gonorrhoeae, JUAN Negative Normal [facility] Comment on above: Performed By: #### C BC #### [facility] [address] [place] [address] Dr. Garland Kohli TSHon 01-04-2022 TSH 1.707 uIU/mL Normal 0.358-3.740 [facility] Comment on above: Performed By: #### G TT3P #### [facility] [address] [place] [address] Dr. Garland Kohli HEPATITIS C VIRUS AB W/ REFL EX QUANTon 12-17-2021 HCV AB <0.1 Normal 0.0-0.9 [facility] Comment on above: Performed By: #### G TT3P #### [facility] [address] [place] [address] Dr. Garland Kohli Interpretation: Comment Normal [facility] Comment on above: Result Comment: Nega tive Not infected with HCV, unless recent infection is suspected or other evidence exists to indicate HCV infection. Performed By: #### G TT3P #### [facility] [address] [place] [address] Dr. Garland Kohli CULTURE URINEon 12-15-2021 CULTURE URINE Culture Observations : GREATER THAN TWO ORGANISMS PRESENT. PLEASE RESUBMIT CLEAN CATCH MID-STREAM URINE IF CLINICALLY INDICATED. Normal [facility] Comment on above: Performed By: #### U RCX #### [facility] [address] [place] [address] Dr. Garland Kohli HEP B SURFACE ANTIGEN SCREEN on 12-15-2021 HBsAg Screen Negative Normal Negative [facility] Comment on above: Performed By: #### H BSANS #### [facility] [address] [place] [address] Dr. Garland Kohli HIV 1 AND 2 WITH REFLEXon HIV Screen 4th Generation wRfx Non-Reactive Normal Non Reactive [facility] Comment on above: Result Comment: HIV Negative HIV-1/HIV-2 antibodies and HIV-1 p24 antigen were NOT detected. There is no laboratory evidence of HIV infection. Performed By: #### H IV12 #### [facility] [address] [place] [address] Dr. Garland Kohli RPR QUANTon 12-15-2021 Rapid Plasma Reagin, Quant Non-Reactive Normal NonRea<1:1 [facility] Comment on above: Result Comment: Plea se Note: This test does not meet current guidelines for screening and diagnosis of syphilis. This test is intended for following treatment response in patients being treated for syphilis infection. To screen for syphilis infection, a reflex cascade that includes both RPR and a treponema-specific assay should be utilized, such as Treponema pallidum (Syphilis) Screening [place] (147065) or Rapid Plasma Reagin (RPR) Test With Reflex to Quantitative RPR and Confirmatory Treponema pallidum Antibodies ([id number]). Performed By: #### G TT3P #### [facility] [address] [place] [address] Dr. Garland Kohli RUBELLA AB IGGon 12-15-2021 Rubella Antibodies, IgG 4.72 index Normal Immune >0.99 [facility] Comment on above: Result Comment: Non- immune <0.90 Equivocal 0.90 - 0.99 Immune >0.99 Performed By: #### G TT3P #### [facility] [address] [address] [address] Garland Kohli CBC AUTO DIFFon 12-14-2021 BASO # 0.0 103/ul Normal 0.0-0.1 [facility] Comment on above: Performed By: #### C BC #### [facility] [address] [address] [address] Garland Kohli Basophils/100 WBC (Bld) 0.3 % Normal 0.2-2.0 [facility] Comment on above: Performed By: #### C BC #### [facility] [address] [place] [address] Dr. Garland Kohli EO # 0.1 103/ul Normal 0.0-0.7 [facility] Comment on above: Performed By: #### C BC #### [facility] [address] [place] [address] Dr. Garland Kohli Eosinophils/100 WBC (Bld) 0.8 % Critically low 0.9-7.0 [facility] Comment on above: Performed By: #### C BC #### [facility] [address] [place] [address] Dr. Garland Kohli Erythrocyte distribution width (RBC) [Ratio] 12.6 % Normal 11.0-15.0 [facility] Comment on above: Performed By: #### C BC #### [facility] [address] [place] [address] Dr. Garland Kohli Hematocrit (Bld) [Volume fraction] 34.3 % Critically low 36.0-48.0 [facility] Comment on above: Performed By: #### C BC #### [facility] [address] [place] [address] Dr. Garland Kohli Hemoglobin (Bld) [Mass/Vol] 11.7 g/dL Critically low 12.0-16.0 [facility] Comment on above: Performed By: #### C BC #### [facility] [address] [place] [address] Dr. Garland Kohli IG # 0.03 10e3/ul Normal 0.00-0.03 [facility] Comment on above: Performed By: #### C BC #### [facility] [address] [place] [address] Dr. Garland Kohli IG % 0.4 % Normal 0.0-0.5 [facility] Comment on above: Performed By: #### C BC #### [facility] [address] [place] [address] Dr. Garland Kohli LYMPH # 1.5 103/ul Normal 1.2-3.8 [facility] Comment on above: Performed By: #### C BC #### [facility] [address] [place] [address] Dr. Garland Kohli Lymphocytes/100 WBC (Bld) 21.1 % Normal 20.5-60.0 [facility] Comment on above: Performed By: #### C BC #### [facility] [address] [place] [address] Dr. Garland Kohli MANUAL DIFF REQ NO Normal [facility] Comment on above: Performed By: #### C BC #### [facility] [address] [place] [address] Dr. Garland Kohli MCH (RBC) [Entitic mass] 30.5 pg Normal 26.7-34.0 [facility] Comment on above: Performed By: #### C BC #### [facility] [address] [place] [address] Dr. Garland Kohli MCHC (RBC) [Mass/Vol] 34.1 g/dL Normal 29.9-35.2 [facility] Comment on above: Performed By: #### C BC #### [facility] [address] [place] [address] Dr. Garland Kohli MCV (RBC) [Entitic vol] 89.6 fL Normal 81.0-99.0 [facility] Comment on above: Performed By: #### C BC #### [facility] [address] [place] [address] Dr. Garland Kohli MONO # 0.5 103/ul Normal 0.3-0.8 [facility] Comment on above: Performed By: #### C BC #### [facility] [address] [address] [address] Garland Kohli Monocytes/100 WBC (Bld) 7.1 % Normal 1.7-12.0 [facility] Comment on above: Performed By: #### C BC #### [facility] [address] [address] [address] Garland Kohli NEUT # 5.0 103/ul Normal 1.4-6.5 [facility] Comment on above: Performed By: #### C BC #### [facility] [address] [address] [address] Garland Kohli Neutrophils/100 WBC (Bld) 70.3 % Normal 43.0-75.0 [facility] Comment on above: Performed By: #### C BC #### [facility] [address] [place] [address] Dr. Garland Kohli Platelet mean volume (Bld) [Entitic vol] 10.1 fL Normal 9.5-13.5 [facility] Comment on above: Performed By: #### C BC #### [facility] [address] [place] [address] Dr. Garland Kohli PLT 234 103/ul Normal 150-450 [facility] Comment on above: Performed By: #### C BC #### [facility] [address] [place] [address] Dr. Garland Kohli RBC 3.83 106/ul Critically low 4.20-5.40 [facility] Comment on above: Performed By: #### C BC #### [facility] [address] [place] [address] Dr. Garland Kohli WBC 7.1 103/ul Normal 4.0-11.0 [facility] Comment on above: Performed By: #### C BC #### [facility] [address] [place] [address] Dr. Garland Kohli GLYCOHEMOGLOBIN A1Con 2021 ADA RECOMMENDATION SEE BELOW Normal [facility] Comment on above: Result Comment: ADA RECOMMENDED LIMIT 4.0 - 6.0 ADA THERAPEUTIC TARGET < 7.0 ACTION SUGGESTED > 7.0 Performed By: #### A 1C #### [facility] [address] [address] [address] Garland Kohli Glucose [Mass/Vol] 103 mg/dL Normal [facility] Comment on above: Performed By: #### A 1C #### [facility] [address] [address] [address] Garland Kohli HbA1c (Bld) [Mass fraction] 5.2 % Normal 4.5-6.2 [facility] Comment on above: Performed By: #### A 1C #### [facility] [address] [address] [address] Garland Kohli MARTÍNEZ BOX TEST PT SEND OUTo n 12-14-2021 SENT TO REF LAB 12/14/21 Normal [facility] Comment on above: Performed By: #### G TT3P #### [facility] [address] [place] [address] Dr. Garland Kohli TYPE AND SCREENon 12-14-2021 TYPE AND SCREEN Negative Normal [facility] Comment on above: Performed By: #### C BC #### [facility] [address] [place] [address] Dr. Garland Kohli US PREG TVon 11-26-2021 [...] by: YAAKOV TERAN Date: 2021-11-26 18:36 [facility] OPERATIVE REPORTon 9 OPERATIVE REPORT [facility] [address] [place] [phone] OPERATIVE REPORT PATIENT NAME: CECELIA JOHNSON : 1995 MED REC NO: [id number] ROOM: ACCOUNT NO: [id number] ADMIT DATE: 11/24/2018 PROVIDER: Mode Renee DATE [...] infiltrated into the drains, this was for detention pain control. Steri-Strips applied throughout and then bulky gauze dressing as well as surgical bra was applied. The patient was awoken, extubated, and transported to the recovery room in stable condition. Sponge, needle, and instrument counts were reported correct x2 at the end of the case. MODE RENEE /Natalio_OPSAJ_T Doc#: [id number] CC: Carlos Alberto Coleman [facility] Surgical Pathologyon 019 Surgical Pathology (NOTE) [id number] [facility] [address] [place], [place] [id number] SURGICAL PATHOLOGY REPORT Patient Name: CECELIA JOHNSON MR#: [id number] Specimen #[id number] Final Diagnosis SPECIMEN A : BREAST AND [...] specimen weighs 453 grams. Multiple sales representative gas service sections are submitted in five cassettes for [...] in multiple different areas and sales representative gas service sections are submitted in five cassettes for microscopic examination. Microscopic Description Specimen A : Five RICHARD glass slides are received. Microscopic examination is performed. Specimen B : Five RICHARD glass slides are received. Microscopic examination is performed. Normal [facility] Comment on above: Performed By: #### P PPES #### [facility] [address] [place] [address] Compensation Associate: Victor Manuel Hunter DO CNOVSColton 11-18-2018 CNOVSP Visit (SP) Office ([place]) CECELIA JOHNSON ([id number]) 1995 F Date Time Provider Department 11/18/18 1:00 PM JAZ MOULTON) KATHARINE During your visit today, we recorded the following information about you: Temperature Pulse Respiration Blood pressure 97.9 degrees 82/minute 18/minute 122/78 Weight Height Last Period 82.7 kg 1.6 m 10/15/18 Jaz Moulton MD 11/18/2018 3:08 PM Signed PATIENT NAME: Cecelia Johnson CLINIC NO.: [id number] ATTENDING PHYSICIAN: Jaz Moulton MD DATE OF [...] below. Jaz Moulton M.D. Hematology/Medical Oncology [facility] [phone] CC: Carols Alberto Coleman MD - (Inactive), In Basket (Inactive) - User (Inactive) [address] [place] [phone] (Ph) Mode Renee MD Referring Provider: SELF [...] Nathan - Fully Assessed Visit Diagnosis:MTHFR mutation ([facility]) [E72.12] Prescriptions as of 11/18/2018 Sig: [...] Of Date 11/18/2018 Noted Resolved MTHFR mutation ([facility]) [E72.12] INVALID FOR* Encounter Status:Closed by JAZ MOULTON MD on 11/18/18 [facility] 11-18-2018 PROGRESS HNO ID: [id number] Author: Jaz Hill) Kenney Service: ? Author Type: Physician Type: Progress Notes Filed: 11/18/2018 3:08 PM Note Text: PATIENT NAME: Cecelia Johnson CLINIC NO.: [id number] ATTENDING PHYSICIAN: Jaz Moulton MD DATE OF [...] ABSEOSIN, BASOP, ABSBASO ASSESSMENT AND PLAN: Cecelia Polta is a 23 year old year old [...] number below. Jaz Moulton M.D. Hematology/Medical Oncology [address] [place] [phone] CC: Carlos Alberto Coleman MD - (Inactive), In Basket (Inactive) - User (Inactive) [address] [facility] [phone] () Mode Renee MD Normal [facility] Basic Metabolic Profon 11-10 (cont.) Normal [facility] Comment on above: Result Comment: Aver age GFR for 20-29 years old: 116 mL/min/1.73sq m Chronic Kidney Disease: <60 mL/min/1.73sq m Kidney failure: <15 mL/min/1.73sq m eGFR calculated using average adult body mass. Additional eGFR calculator available at: http://www.[employer].Atlassian/multiple_crcl_2011.htm Performed By: #### C FARAZ, BMP #### [facility] [address] [facility] [place] [address] Compensation Associate: Victor Manuel Hunter DO Anion gap [Moles/Vol] 11 mmol/L Normal 9-17 [facility] Comment on above: Performed By: #### C FARAZ, BMP #### [facility] [address] [facility] [place], [place] [id number] Compensation Associate: Victor Manuel Hunter DO Calcium [Mass/Vol] 9.7 mg/dL Normal 8.6-10.4 [facility] Comment on above: Performed By: #### C DP, BMP #### [facility] [address] [place] [address] Compensation Associate: Victor Manuel Hunter DO Chloride [Moles/Vol] 102 mmol/L Normal 98-107 [facility] Comment on above: Performed By: #### C DP, BMP #### [facility] [address] [place] [address] Compensation Associate: Victor Manuel Hunter DO CO2 [Moles/Vol] 26 mmol/L Normal 20-31 [facility] Comment on above: Performed By: #### C DP, BMP #### [facility] [place] [address] Compensation Associate: Victor Manuel Hunter DO Creatinine [Mass/Vol] 0.49 mg/dL Low 0.50-0.90 [facility] Comment on above: Performed By: #### C DP, BMP #### [facility] [place] [address] Compensation Associate: Victor Manuel Hunter DO GFR, Amer >60 Normal >60 [facility] Comment on above: Performed By: #### C DP, BMP #### [facility] [place] [address] Compensation Associate: Victor Manuel Hunter DO GFR,non Amer >60 Normal >60 [facility] Comment on above: Performed By: #### C DP, BMP #### [facility] [address] [place], [place] [address] [place] [address] Compensation Associate: Victor Manuel Hunter DO Glucose [Mass/Vol] 88 mg/dL Normal 70-99 [facility] Comment on above: Performed By: #### C DP, BMP #### [facility] [address] [place] [address] Compensation Associate: Victor Manuel Hunter DO Potassium [Moles/Vol] 4.3 mmol/L Normal 3.7-5.3 [facility] Comment on above: Performed By: #### C DP, BMP #### [facility] [place] [address] Compensation Associate: Victor Manuel Hunter DO Sodium [Moles/Vol] 139 mmol/L Normal 135-144 [facility] Comment on above: Performed By: #### C DP, BMP #### [facility] [address] [place] [address] Compensation Associate: Victor Manuel Hunter DO Urea nitrogen [Mass/Vol] 8 mg/dL Normal 6-20 [facility] Comment on above: Performed By: #### C FARAZ, BMP #### [facility] [address] [place] [address] Compensation Associate: Victor Manuel Hunter DO BUN/CRE Ratio NOT REPORTED Normal 9-20 [facility] Comment on above: Performed By: #### C FARAZ, BMP #### [facility] [place] [address] Compensation Associate: Victor Manuel Hunter DO Staging: NOT REPORTED Normal [facility] Comment on above: Performed By: #### C DP, BMP #### [facility] [place] [address] Compensation Associate: Victor Manuel Hunter DO CBC with Diffon 11-10-2018 Abs. Basophil 0.00 k/uL Normal 0.0-0.2 [facility] Comment on above: Performed By: #### C DP, BMP #### [facility] [place] [address] Compensation Associate: Victor Manuel Hunter DO Abs.Neutrophil (Seg) 3.00 k/uL Normal 1.3-9.1 [facility] Comment on above: Performed By: #### C DP, BMP #### [facility] [address] [place] [address] Compensation Associate: Victor Manuel Hunter DO Basophils/100 WBC (Bld) 0 % Normal 0-2 [facility] Comment on above: Performed By: #### C DP, BMP #### [facility] [place] [address] Compensation Associate: Victor Manuel Hunter DO Eosinophils (Bld) [#/Vol] 0.10 10*3/uL Normal 0.0-0.4 [facility] Comment on above: Performed By: #### C DP, BMP #### [facility] [address] [place], [place] [address] [place] [address] Compensation Associate: Victor Manuel Hunter DO Eosinophils/100 WBC (Bld) 1 % Normal 0-4 [facility] Comment on above: Performed By: #### C FARAZ, BMP #### [facility] [place] [address] Compensation Associate: Victor Manuel Hunter DO Erythrocyte distribution width (RBC) [Ratio] 12.7 % Normal 11.5-14.9 [facility] Comment on above: Performed By: #### C DP, BMP #### [facility] [place] [address] Compensation Associate: Victor Manuel Hunter DO Hematocrit (Bld) [Volume fraction] 42.3 % Normal 36-46 [facility] Comment on above: Performed By: #### C DP, BMP #### [facility] [place] [address] Compensation Associate: Victor Maneul Hunter DO Hemoglobin (Bld) [Mass/Vol] 14.3 g/dL Normal 12.0-16.0 [facility] Comment on above: Performed By: #### C DP, BMP #### [facility] [place] [address] Compensation Associate: Victor Manuel Hunter DO Lymphocytes (Bld) [#/Vol] 1.70 10*3/uL Normal 1.0-4.8 [facility] Comment on above: Performed By: #### C DP, BMP #### [facility] [address] [place] [address] Compensation Associate: Victor Manuel Hunter DO Lymphocytes/100 WBC (Bld) 32 % Normal 24-44 [facility] Comment on above: Performed By: #### C FARAZ, BMP #### [facility] [address] [place] [address] Compensation Associate: Victor Manuel Hunter DO MCH (RBC) [Entitic mass] 30.0 pg Normal 26-34 [facility] Comment on above: Performed By: #### C FARAZ, BMP #### [facility] [address] [place] [phone] Compensation Associate: Victor Manuel Hunter DO MCHC (RBC) [Mass/Vol] 33.7 g/dL Normal 31-37 [facility] Comment on above: Performed By: #### C DP, BMP #### [facility] [address] [place] [address] Compensation Associate: Victor Manuel Hunter DO MCV (RBC) [Entitic vol] 89.0 fL Normal 80-100 [facility] Comment on above: Performed By: #### C DP, BMP #### [facility] [address] [place] [address] Compensation Associate: Victor Manuel Hunter DO Monocytes (Bld) [#/Vol] 0.60 10*3/uL Normal 0.1-1.3 [facility] Comment on above: Performed By: #### C DP, BMP #### [facility] [address] [place] [address] Compensation Associate: Victor Manuel Hunter DO Monocytes/100 WBC (Bld) 11 % High 1-7 [facility] Comment on above: Performed By: #### C DP, BMP #### [facility] [place] [address] Compensation Associate: Victor Manuel Hunter DO Neutrophil (Seg) 56 % Normal 36-66 [facility] Comment on above: Performed By: #### C DP, BMP #### [facility] [place] [address] Compensation Associate: Victor Manuel Hunter DO Platelet mean volume (Bld) [Entitic vol] 9.4 fL Normal 6.0-12.0 [facility] Comment on above: Performed By: #### C FARAZ, BMP #### [facility] [address] [place] [address] Compensation Associate: Victor Manuel Hunter DO Platelets (Bld) [#/Vol] 252 10*3/uL Normal 150-450 [facility] Comment on above: Performed By: #### C DP, BMP #### [facility] [place] [address] Compensation Associate: Victor Manuel Hunter DO RBC (Bld) [#/Vol] 4.75 10*6/uL Normal 4.0-5.2 [facility] Comment on above: Performed By: #### C DP, BMP #### [facility] [place] [address] Compensation Associate: Victor Manuel Hunter DO WBC (Bld) [#/Vol] 5.3 10*3/uL Normal 3.5-11.0 [facility] Comment on above: Performed By: #### C DP, BMP #### [facility] [place] [address] Compensation Associate: Victor Manuel Hunter DO Abs.Imm.Granulocyte NOT REPORTED Normal 0.00-0.30 [facility] Comment on above: Performed By: #### C DP, BMP #### [facility] [address] [place] [phone] Compensation Associate: Victor Manuel Hunter DO Auto Diff Performed NOT REPORTED Normal [facility] Comment on above: Performed By: #### C DP, BMP #### [facility] [address] [place] [phone] Compensation Associate: Victor Manuel Hunter DO Immature granulocytes (Bld) [#/Vol] NOT REPORTED Normal 0 [facility] Comment on above: Performed By: #### C DP, BMP #### [facility] [address] [place] [address] Compensation Associate: Victor Manuel Hunter DO NRBC Automated NOT REPORTED Normal [facility] Comment on above: Performed By: #### C DP, BMP #### [facility] [address] [place] [phone] Compensation Associate: Victor Manuel Hunter DO Platelets (Bld) [#/Vol] NOT REPORTED Normal [facility] Comment on above: Performed By: #### C DP, BMP #### [facility] [address] [place] [address] Compensation Associate: Victor Manuel Hunter DO RBC morphology finding Nom (Bld) NOT REPORTED Normal [facility] Comment on above: Performed By: #### C DP, BMP #### [facility] [address] [place] [phone] Compensation Associate: Victor Manuel Hunter DO WBC Morphology NOT REPORTED Normal [facility] Comment on above: Performed By: #### C ROSA RUTH #### [facility] [address] [place] [address] Compensation Associate: Victor Manuel Hunter DO Vital Signs Date Time Vital Sign Value Performing Clinician Facility 05-09-2024 16:07-0500 Body mass index (BMI) [Ratio] 32.61 kg/m2 Tori Pepe PA Work Phone: [facility] 05-09-2024 16:07-0500 Body weight 86.18 kg Tori Talbotey PA Work Phone: [facility] 05-09-2024 16:07-0500 Diastolic blood pressure 82 mm[Hg] Tori Talbotey PA Work Phone: [facility] 05-09-2024 16:07-0500 Systolic blood pressure 120 mm[Hg] Tori Norfolk PA Work Phone: [facility] 05-03-2024 16:38-0500 Body height 162.6 cm Tori Warchol [employer] Work Phone: [facility] 05-03-2024 16:38-0500 Body mass index (BMI) [Ratio] 32.3 kg/m2 Tori Warchol [employer] Work Phone: [facility] 05-03-2024 16:38-0500 Body temperature 97.59 [degF] Tori Warchol [employer] Work Phone: [facility] 05-03-2024 16:38-0500 Body weight 85.37 kg Tori Warchol [employer] Work Phone: [facility] 05-03-2024 16:38-0500 Diastolic blood pressure 72 mm[Hg] Tori Warchol [employer] Work Phone: [facility] 05-03-2024 16:38-0500 Heart rate 93 /min Tori Warchol [employer] Work Phone: [facility] 05-03-2024 16:38-0500 SaO2% (BldA) [Mass fraction] 99 % Tori Kylee [employer] Work Phone: [facility] 05-03-2024 16:38-0500 Systolic blood pressure 124 mm[Hg] Tori Kylee [employer] Work Phone: [facility] 04-21-2024 08:49-0500 Body mass index (BMI) [Ratio] 32.06 kg/m2 Herber Nnamdi DO Work Phone: [facility] 04-21-2024 08:49-0500 Body weight 84.73 kg Herber Nnamdi DO Work Phone: [facility] 04-21-2024 08:49-0500 Diastolic blood pressure 72 mm[Hg] Herber Nnamdi DO Work Phone: [facility] 04-21-2024 08:49-0500 Systolic blood pressure 104 mm[Hg] Herber Nnamdi DO Work Phone: [facility] 04-13-2024 15:58-0500 Body mass index (BMI) [Ratio] 31.78 kg/m2 Tori Norfolk PA Work Phone: [facility] 04-13-2024 15:58-0500 Body weight 83.97 kg Tori Norfolk PA Work Phone: [facility] 04-13-2024 15:58-0500 Diastolic blood pressure 80 mm[Hg] Tori Dwight PA Work Phone: [facility] 04-13-2024 15:58-0500 Systolic blood pressure 120 mm[Hg] Tori Dwight PA Work Phone: [facility] 04-06-2024 16:29-0500 Body mass index (BMI) [Ratio] 31.65 kg/m2 Tori Dwight PA Work Phone: [facility] 04-06-2024 16:29-0500 Body weight 83.64 kg Tori Dwight PA Work Phone: [facility] 04-06-2024 16:29-0500 Diastolic blood pressure 74 mm[Hg] Tori Dwight PA Work Phone: [facility] 04-06-2024 16:29-0500 Systolic blood pressure 112 mm[Hg] Tori Pepe PA Work Phone: [facility] 03-09-2024 16:25-0500 Body mass index (BMI) [Ratio] 30.88 kg/m2 Tori Pepe PA Work Phone: [facility] 03-09-2024 16:25-0500 Body weight 81.6 kg Tori Dwight PA Work Phone: [facility] 03-09-2024 16:25-0500 Diastolic blood pressure 70 mm[Hg] Tori Pepe PA Work Phone: [facility] 03-09-2024 16:25-0500 Systolic blood pressure 114 mm[Hg] Tori Pepe PA Work Phone: [facility] 02-10-2024 14:44-0400 Body mass index (BMI) [Ratio] 29.39 kg/m2 Herber Nnamdi DO Work Phone: [facility] 02-10-2024 14:44-0400 Body weight 77.68 kg Herber Nnamdi DO Work Phone: [facility] 02-10-2024 14:44-0400 Diastolic blood pressure 68 mm[Hg] Herber Nnamdi DO Work Phone: [facility] 02-10-2024 14:44-0400 Systolic blood pressure 116 mm[Hg] Herber Nnamdi DO Work Phone: [facility] 01-11-2024 16:03-0400 Body mass index (BMI) [Ratio] 28.06 kg/m2 Herber Nnamdi DO Work Phone: [facility] 01-11-2024 16:03-0400 Body weight 74.16 kg Herber Nnamdi DO Work Phone: [facility] 01-11-2024 16:03-0400 Diastolic blood pressure 72 mm[Hg] Herber Nnamdi DO Work Phone: [facility] 01-11-2024 16:03-0400 Systolic blood pressure 118 mm[Hg] Herber Nnamdi DO Work Phone: [facility] 01-29-2022 02:06-0400 Body weight 67.[address] ZEN BREWER . [facility] Comment on above: Performed By: #### [id number] #### [facility] [address] [address] [address] Garland Kohli Encounters Encounter Date Encounter Type Care Provider Facility Start: 05-09-2024 End: 05-09-2024 flow sheet Tori SHIRLEY Work Phone: [facility] Comment on above: 32 weeks gestation o f ; Third trimester Start: 05-09-2024 End: 05-09-2024 ambulatory TORI PEPE Not Available Start: 05-09-2024 End: 05-09-2024 Bamboo flowsheet Tori Pepe PA Work Phone: [facility] Start: 05-09-2024 End: 05-09-2024 Bamboo flowsheet Tori Pepe PA Work Phone: [facility] Start: 05-03-2024 End: 05-03-2024 Office outpatient visit 25 minutes Tori Martinez [employer] Work Phone: [facility] Comment on above: Need for follow-up c are after discharge (Primary Dx) Start: 05-03-2024 End: 05-03-2024 ambulatory TORI MARTINEZ Not Available Start: 05-03-2024 End: 05-03-2024 Bamboo flowsheet Tori Martinez [employer] Work Phone: [facility] Start: 05-03-2024 End: 05-03-2024 Bamboo flowsheet Tori Martinez [employer] Work Phone: [facility] Start: 04-21-2024 End: 04-21-2024 Bamboo flowsheet Herber Nnamdi DO Work Phone: [facility] Start: 04-21-2024 End: 04-21-2024 Bamboo flowsheet Herber Nnamdi DO Work Phone: [facility] Start: 04-21-2024 End: 04-21-2024 ambulatory HERBER NNAMDI Not Available Start: 04-21-2024 End: 04-21-2024 flow sheet Herber Nnamdi DO Work Phone: [facility] Comment on above: 30 weeks gestation o f ; Third trimester Start: 04-13-2024 End: 04-13-2024 flow sheet Tori SHIRLEY Work Phone: [facility] Comment on above: 28 weeks gestation o f ; Second trimester ; Gestational diabetes mellitus (GDM), antepartum, gestational diabetes method of control unspecified; Anxiety, generalized (CMS/HCC); Nausea; Hypothyroidism, unspecified type (CMS/HCC) Start: 04-13-2024 End: 04-13-2024 ambulatory OTRI PEPE Not Available Start: 04-13-2024 End: 04-13-2024 Bamboo flowsheet Tori SHIRLEY Work Phone: [facility] Start: 04-13-2024 End: 04-13-2024 Bamboo flowsheet Tori SHIRLEY Work Phone: [facility] Start: 04-06-2024 End: 04-06-2024 ambulatory TORI PEPE Not Available Start: 04-06-2024 End: 04-06-2024 flow sheet Tori SHIRLEY Work Phone: [facility] Comment on above: Second trimester pre gnancy; 27 weeks gestation of Start: 04-06-2024 End: 04-06-2024 Bamboo flowsheet Tori SHIRLEY Work Phone: [facility] Start: 04-06-2024 End: 04-06-2024 Bamboo flowsheet Tori SHIRLEY Work Phone: [facility] Start: 03-19-2024 End: 03-19-2024 Clinisync Result Encounter Tori SHIRLEY Work Phone: [facility] External Department Unsolicited Start: 03-19-2024 End: 03-19-2024 Clinisync Result Encounter Tori SHIRLEY Work Phone: [facility] External Department Unsolicited Start: 03-09-2024 End: 03-09-2024 ambulatory TORI PEPE Not Available Start: 03-09-2024 End: 03-09-2024 flow sheet Tori SHIRLEY Work Phone: [facility] Comment on above: Encounter for follow -up ultrasound of anatomy; Second trimester ; 23 weeks gestation of ; Hypothyroidism, unspecified type (CMS/HCC); Diabetes mellitus screening; Anxiety, generalized (CMS/HCC) Start: 03-09-2024 End: 03-09-2024 Bamboo flowsheet Tori SHIRLEY Work Phone: [facility] Start: 03-09-2024 End: 03-09-2024 Bamboo flowsheet Tori SHIRLEY Work Phone: [facility] Start: 02-10-2024 End: 02-10-2024 ambulatory HERBER NNAMDI Not Available Start: 02-10-2024 End: 02-10-2024 Bamboo flowsheet Herber Nnamdi DO Work Phone: [facility] Start: 02-10-2024 End: 02-17-2024 Bamboo flowsheet Herber Nnamdi DO Work Phone: [facility] Start: 02-10-2024 End: 02-17-2024 Clinisync Result Encounter Generic External Data Provider [facility] External Department Unsolicited Start: 02-10-2024 End: 02-10-2024 Patient encounter procedure Herber Nnamdi DO Work Phone: [facility] Healthcare Start: 02-10-2024 End: 02-10-2024 Periodic preventive med est patient 18-39 yrs Herber Nnamdi DO Work Phone: [facility] Comment on above: Well woman [...] procedure MD Carlos Alberto Coleman Work Phone: [facility] Start: 07-13-2023 End: 07-13-2023 ambulatory MD Carlos Alberto Coleman Work Phone: [facility] Work Phone: Start: 07-13-2023 End: 07-13-2023 ambulatory SOFIE R LAUSE Not Available Start: 06-02-2023 Refill Tori Martinez [employer]AGE HELPER Work Phone: [facility] Comment on above: Attention deficit hy peractivity disorder (ADHD), combined type (CMS/HCC) Start: 07-04-2022 End: 07-14-2022 ambulatory ÁNGEL SINHA Facility: Start: 07-01-2022 End: 07-01-2022 ambulatory ÁNGEL SINHA [...] without abnormal findings [facility] ZEN BREWER . [facility] Start: 01-17-2022 End: 01-17-[address] ZEN BREWER . Facility:[facility] Start: 01-17-2022 End: 01-17-2022 Encounter for gynecological examination (general) (routine) without abnormal findings DR ZEN BREWER . Facility:[facility] Start: 01-04-2022 End: 01-05-2022 ambulatory ÁNGEL SINHA Facility:[facility] Start: 12-14-2021 End: 12-15-[address] ZEN BREWER . Facility:[facility] Start: 11-26-2021 End: 11-27-2021 ambulatory ÁNGEL SINHA Facility:[facility] Start: 11-24-2018 End: 11-24-2018 Patient encounter procedure [facility] Start: 11-10-2018 End: 11-15-2018 Patient encounter procedure [facility] Procedures Date Procedure Procedure Detail [...] Work Phone: Start: 02-10-2024 IGP,APTIMA HPV,AGE GDLN [facility] DO Work Phone: Start: 02-10-2024 Microscopic observat ion [Identifier] in Cervix by Cyto stain Tori SHIRLEY Work Phone: Start: 02-10-2024 Cytp cerv/vag auto t hin layer prep mnl screen Tori SHIRLEY Work Phone: Start: 01-22-2024 ALL THYROID STIM HORMONE [facility] DO Work Phone: Start: 01-11-2024 Urnls dip stick/tabl et rgnt non-auto w[facility] Work Phone: Start: 07-13-2023 Respiratory Panel [...] 2024 Influenza vaccination Influenza Vacc ine (#1) [facility] Comment on above: Postponed from 12/26 (Patient Refused) Start: 05-25-2024 End: 05-25-2024 Patient encounter procedure 05/25/2024 2:10 PM EST Routine [facility] [address] [place] [id number] Herber Coto, [address] [place] [place] [address] [facility] Start: 05-09-2024 End: 05-09-2024 Patient encounter procedure [facility] Comment on above: Arrived Start: 05-03-2024 End: 05-03-2024 Patient encounter procedure 05/03/2024 4:40 PM EST Office Visit [facility] [address] [place] [address] Tori Martinez, [employer] [address] [place] [address] Need for follow-up care after discharge (Primary Dx) [facility] Comment on above: Need for follow-up c are after discharge (Primary Dx) Start: 04-21-2024 End: 04-21-2024 Patient encounter procedure 04/21/2024 8:30 AM EST Routine [facility] [address] [place] [id number] Herber Coto DO [address] [place] [address] [facility] Start: 04-13-2024 End: 04-13-2024 [...] PM EST Routine [facility] [address] [place] [phone] Tori Pepe, PA [address] [place] [address] [facility] Start: 04-03-2024 End: 03-04-2025 US for US OB INCOMPLETE ANATOMY Imaging Routine Encounter for follow-up ultrasound of anatomy Expected: 04/03/2024 (Approximate), Expires: 03/04/2025 [facility] Work Phone: Comment on above: Expected: 04/03/2024 (Approximate), Expires: 03/04/2025 Start: 03-09-2024 End: 03-09-2024 Patient encounter procedure 03/09/2024 3:50 PM EST Routine [facility] [address] [place] [phone] Tori Pepe PA [address] [place] [address] [facility] Start: 03-09-2024 End: 03-09-2025 CBC panel - Blood by Automated count CBC Lab Routine Diabetes mellitus screening Expected: 03/09/2024 (Approximate), Expires: 03/09/2025 [facility] Comment on above: Expected: 03/09/2024 (Approximate), Expires: 03/09/2025 Start: 03-09-2024 End: 03-09-2025 Measurement of glucose 1 hour after glucose challenge for glucose tolerance test Glucose tolerance, 1 hour Lab Routine Diabetes mellitus screening Expected: 03/09/2024 (Approximate), Expires: 03/09/2025 [facility] Comment on above: Expected: 03/09/2024 (Approximate), Expires: 03/09/2025 Start: 03-09-2024 End: 03-09-2025 US for US OB SCAN FOR GROWTH Imaging Routine Hypothyroidism, unspecified type (CMS/HCC) Expected: 03/09/2024 (Approximate), Expires: 03/09/2025 [facility] Comment on above: Expected: 03/09/2024 (Approximate), Expires: 03/09/2025 Start: 02-10-2024 End: 02-09-2025 Alpha fetoprotein, maternal Alpha fetoprotein, maternal Lab Routine Second trimester 19 weeks gestation of Expected: 02/10/2024 (Approximate), Expires: 02/09/2025 [facility] Comment on above: Expected: 02/10/2024 (Approximate), Expires: 02/09/2025 Start: 02-10-2024 End: 02-09-2025 US for US OB ANATOMY SINGLE W US OB CERVICAL LENGTH Imaging Routine Screening, , for anatomic survey Expected: 02/10/2024 (Approximate), Expires: 02/09/2025 [facility] Comment on above: Expected: 02/10/2024 (Approximate), Expires: 02/09/2025 Start: 02-10-2024 End: 02-10-2024 Patient encounter procedure 02/10/2024 1:50 PM EDT Routine [facility] [address] [place] [phone] Herber Coto, DO [address] [place], [place] [id number] [facility] Start: 01-11-2024 End: 01-11-2024 Patient encounter procedure 01/11/2024 3:50 PM EDT Routine [facility] [address] [place] [phone] Herber Coto, DO [address] [place] [address] Arrived [facility] Comment on above: Arrived Start: 12-27-2023 Influenza vaccination Influenza Vacc ine (#1) [facility] Start: 10-25-2023 Influenza vaccination Influenza Vacc ine (#1) [facility] Comment on above: Postponed from 12/26 (Patient Refused) Start: 10-25-2023 Screening for malign ant neoplasm of cervix [facility] Start: 07-17-2023 End: 07-17-2023 Patient encounter procedure 07/17/2023 8:00 AM EDT Office Visit [facility] [address] [place] [phone] Tori Martinez, HERRERA [address] [place] [address] [facility] Start: 2014 Screening for malign ant neoplasm of cervix Pap Smear [facility] CHLAMYDIA TRACHOMATI S (GENITO/STI) CHLAMYDIA TRACHOMATIS (GENITO/STI) Lab Routine Screen for STD (sexually transmitted disease) Vaginal discharge Ordered: 02/10/2024 [facility] Comment on above: Ordered: 02/10/2024 Cytology Cervical or vaginal smear or scraping study Pap Smear Pathology and Cytology Routine Well woman exam with routine gynecological exam Ordered: 02/10/2024 [facility] Comment on above: Ordered: 02/10/2024 Human papilloma viru s DNA [Presence] in Unspecified specimen by Probe with amplification HPV DNA probe, amplified Microbiology Routine Well woman exam with routine gynecological exam Ordered: 02/10/2024 [facility] Comment on above: Ordered: 02/10/2024 Neisseria gonorrhoea e DNA [Presence] in Unspecified specimen by JUAN with probe detection Neisseria gonorrhea DNA probe, direct Lab Routine Screen for STD (sexually transmitted disease) Vaginal discharge Ordered: 02/10/2024 [facility] Comment on above: Ordered: 02/10/2024 SURESWAB(R) ADVANCED VAGINITIS PLUS, TMA SURESWAB(R) ADVANCED VAGINITIS PLUS, TMA Pathology and Cytology Routine Screen for STD (sexually transmitted disease) Vaginal discharge Ordered: 02/10/2024 [facility] Work Phone: Comment on above: Ordered: 02/10/2024 Thyrotropin [Units/volume] in Serum or Plasma TSH Lab Routine Other specified hypothyroidism (CMS/HCC) Ordered: 01/11/2024 [facility] Work Phone: Comment on above: Ordered: 01/11/2024 Thyrotropin [Units/volume] in Serum or Plasma TSH Lab Routine Hypothyroidism, unspecified type (CMS/HCC) Ordered: 04/13/2024 [facility] Comment on above: Ordered: 04/13/2024 Immunizations Immunization Date Immunization Notes Care Provider Byron carlson 05-05-2015 tetanus toxoid, redu catherine diphtheria toxoid, and acellular pertussis vaccine, adsorbed Tori Gomezchol [employer]PER Work Phone: [facility] 02-14-2009 influenza, seasonal, injectable Tori Warchol GARAGE HELPER Work Phone: [facility] 02-14-2009 influenza virus vacc ine, unspecified formulation Tori Jasonchol GARAGE HELPER Work Phone: [facility] 12-12-2005 hepatitis A vaccine, unspecified formulation Tori Warchol GARAGE HELPER Work Phone: [facility] 12-12-2005 tetanus toxoid, redu catherine diphtheria toxoid, and acellular pertussis vaccine, adsorbed Tori Warchol GARAGE HELPER Work Phone: [facility] 11-19-1998 diphtheria, tetanus toxoids and acellular pertussis vaccine, unspecified formulation Tori Warchol GARAGE HELPER Work Phone: [facility] 11-19-1998 measles, mumps and rubella virus vaccine Tori Warchol GARAGE HELPER Work Phone: [facility] 11-19-1998 trivalent poliovirus vaccine, live, oral Tori Warchol GARAGE HELPER Work Phone: [facility] 09-14-1995 diphtheria, tetanus toxoids and acellular pertussis vaccine, unspecified formulation Tori Warchol GAR[employer] HEL[employer] Work Phone: [facility] 09-14-1995 haemophilus influenz ae type b vaccine, conjugate unspecified formulation Tori Warchol GARAGE HELPER Work Phone: [facility] 11-20-1994 DTP-Haemophilus influenzae type b conjugate vaccine Tori Warchol GARAGE HELPER Work Phone: [facility] 11-20-1994 hepatitis B vaccine, pediatric or pediatric/adolescent dosage Tori Warchol GARAGE HELPER Work Phone: [facility] 11-20-1994 measles, mumps and rubella virus vaccine Tori Warchol GARAGE HELPER Work Phone: [facility] 11-20-1994 trivalent poliovirus vaccine, live, oral Tori Warchol GARAGE HELPER Work Phone: [facility] 09-18-1994 DTP-Haemophilus influenzae type b conjugate vaccine Tori Warchol GARAGE HELPER Work Phone: [facility] 09-18-1994 hepatitis B vaccine, pediatric or pediatric/adolescent dosage Tori Warchol GARAGE HELPER Work Phone: [facility] 09-18-1994 trivalent poliovirus vaccine, live, oral Tori Warchol GARAGE HELPER Work Phone: [facility] 1993 diphtheria, tetanus toxoids and pertussis vaccine Tori Warchol GARAGE HELPER Work Phone: [facility] 1993 haemophilus influenz ae type b vaccine, conjugate unspecified formulation Tori Martinez GARAGE HELPER Work Phone: [facility] 1993 hepatitis B vaccine, pediatric or pediatric/adolescent dosage Tori Martinez GAR[employer] HEL[employer] Work Phone: [facility] 1993 trivalent poliovirus vaccine, live, oral Tori Martinez GARAGE HELPER Work Phone: [facility] Healthcare Payers Date Payer Category Payer Self-pay [id number] 2023 Medicaid [id number] 2022 Blue Cross Blue Shield [id number] 2022 Unknown BCBS BCBS xxxxxx [id number] 2022-Present [phone] [address] [place] [address] [id number] 2017 Private Health Insurance [id number] 1993 Unknown [id number] 2.16.840.1.953372.3.579.2.1 1993 Unknown [id number] 2.16.840.1.222782.3.579.2.1 1993 Unknown [id number] 2.16.840.1.278879.3.579.2.5 1993 Unknown [id number] 2.16.840.1.968892.3.579.2.5 93 1993 Unknown [id number] 2.16.840.1.437379.3.579.2.5 93 1993 Unknown [id number] 2.16.840.1.673205.3.579.2.5 93 1993 Unknown [id number] 2.16.840.1.510583.3.579.2.5 93 1993 Unknown [id number] 2.16.840.1.531347.3.579.2.5 93 1993 Unknown [id number] 2.16.840.1.878448.3.579.2.5 93 1993 Unknown [id number] 2.16.840.1.107480.3.579.2.5 93 1993 Unknown [id number] 2.16.840.1.343282.3.579.2.5 93 1993 Unknown [id number] 2.16.840.1.963338.3.579.2.5 93 1993 Unknown [id number] 2.16.840.1.690562.3.579.2.5 93 1993 Unknown [id number] 2.16.840.1.317009.3.579.2.5 93 1993 Unknown [id number] 2.16.840.1.751948.3.579.2.5 93 1993 Unknown [id number] 2.16.840.1.920941.3.579.2.5 93 1993 Unknown [id number] 2.16.840.1.406396.3.579.2.1 259 1993 Unknown [id number] 2.16.840.1.998399.3.579.2.1 259 1993 Unknown [id number] 2.16.840.1.155360.3.579.2.1 259 1993 Unknown [id number] 2.16.840.1.040952.3.579.2.1 259 1993 Unknown [id number] 2.16.840.1.107267.3.579.2.1 259 1993 Unknown [id number] 2.16.840.1.974214.3.579.2.1 259 1993 Unknown [id number] 2.16.840.1.019002.3.579.2.1 259 1993 Unknown [id number] 2.16.840.1.675835.3.579.2.1 259 1993 Unknown [id number] 2.16.840.1.490510.3.579.2.1 259 1993 Unknown [id number] 2.16.840.1.487184.3.579.2.1 259 1993 Unknown [id number] 2.16.840.1.912389.3.579.2.1 259 1993 Unknown [id number] 2.16.840.1.125246.3.579.2.1 259 1959 Self-pay [id number] 1959 Unknown [id number] 1959 Unknown [id number] 1959 Unknown [id number] Unknown [id number] 2.16.840.1.588805.3.579.2.5 93 Unknown HCAP/HFA/FAP Active [id number] Unknown [id number] 2.16.840.1.683320.3.579.2.5 31 Social History Date Type Detail Facility Start: 08-27-2016 End: 09-25-2022 Tobacco smoking status [facility] Never smoked tobacco [facility] Health care Start: 09-25-2022 Tobacco use and [...] a typical day? Patient does not drink [facility] Healthcare How often do you hav e 6 or more drinks on 1 occasion? Never [facility] Healthcare Start: 1995 Sex Assigned At Female [facility] Start: 09-24-2022 Gender identity Identifies as female gender (finding) [facility] Start: 10-08-2023 [facility] Start: 05-03-2024 End: 05-09-2024 Alcoholic beverage intake Ex-drinker (finding) [facility] Medical Equipment Procedure Code Equipment Code Equipment Origin al Text Equipment Identifier Dates 1 strip by In Vi tro route Daily Use in the morning prior to breakfast, 1 hour after each meal for a total of 4times daily. [id number] Start: 03-21-2024 End: 04-20-2024 1 each by In Vit ro route Daily Use to check FSBS four times daily [id number] Start: 03-21-2024 End: 04-20-2024 Clinical Notes 06-02-2023 [...] esophagitis 09/01/2022 Moderate persistent asthma without complication ([facility] [place]) 09/01/2022 Hypothyroidism, unspecified ([facility] [place]) 03/02/2020 Moderate asthma ([facility]) 01/11/2024 30 weeks gestation of 04/21/2024 Third trimester 04/21/2024 Resolved Ambulatory Problems Diagnosis Date Noted Acquired hypothyroidism ([facility]) 09/01/2022 Allergic rhinitis 09/01/2022 Amenorrhea 09/01/2022 Asthma without status asthmaticus ([facility]) 09/01/2022 Attention deficit hyperactivity disorder ([facility]) 09/01/2022 Asthma affecting , antepartum ([facility]) 09/01/2022 Binge eating disorder 09/01/2022 Difficulty concentrating 09/01/2022 Irregular menstrual cycle 09/01/2022 Left sided sciatica 09/01/2022 Insomnia 09/01/2022 Migraines ([facility]) 09/01/2022 Metallic taste 09/01/2022 Mild persistent asthma without complication ([facility]) 09/01/2022 MTHFR mutation 09/01/2022 Nondependent cannabis abuse 09/01/2022 Other chronic pain 09/01/2022 Seasonal allergies 09/01/2022 Skin sensation disturbance 09/01/2022 Transitory mood disturbance 09/01/2022 Verruca plantaris 09/01/2022 Past Medical History: Diagnosis Date Acid reflux ADHD (attention deficit hyperactivity disorder) ([facility]) Asthma ([facility]) GERD (gastroesophageal reflux disease) Hypothyroid ([facility]) Lactose intolerance Marijuana use Migraine ([facility]) Mild persistent asthma, uncomplicated ([facility]) Supervision of normal Thyroid disease ([facility]) HISTORY PAST MEDICAL HISTORY SOCIAL HISTORY Past Medical History: Diagnosis Date Acid reflux ADHD (attention deficit hyperactivity disorder) ([facility] Asthma ([facility]) Asthma affecting , antepartum ([facility]) GERD (gastroesophageal reflux disease) Hypothyroid ([facility]) Lactose intolerance Marijuana use Migraine ([facility]) Mild persistent asthma, uncomplicated ([facility]) MTHFR mutation Seasonal allergies Supervision of normal Thyroid disease ([facility]) Social History Tobacco Use Smoking status: [...] 2008 Plica band removal, left knee arthroscopy [place] BREAST REDUCTION 10/2018 TONSILLECTOMY 1998 REVIEW OF [...] of: FERN Luis documented in this encounter [facility] 05-03-2024 History of Presen t illness Narrative [...] each, Rfl: 3 Blood Glucose Monitoring Suppl ([email or web address] Glucometer) w/Device kit, 1 kit Daily Use [...] not improve . documented in this encounter [facility] 05-03-2024 Instructions Tori Martinez NP - 05/03/2024 4:40 PM EST PATIENT EDUCATION: ER follow-up The patient was seen today in follow-up of recent hospital ER/UC visit. All available records/labs/diagnostics were reviewed and discussed with the patient. ER/UC discharge meds were reviewed. Any changes to plan are noted above. documented in this encounter [facility] 04-21-2024 History of Presen t illness [...] to check FSBS. Blood Glucose Monitoring Suppl ([employer] Glucometer) w/Device kit 1 kit, Does not [...] esophagitis 09/01/2022 Moderate persistent asthma without complication ([facility]) 09/01/2022 Hypothyroidism, unspecified ([facility]) 03/02/2020 Moderate asthma ([facility]) 01/11/2024 30 weeks gestation of 04/21/2024 Third trimester 04/21/2024 Resolved Ambulatory Problems Diagnosis Date Noted Acquired hypothyroidism ([facility]) 09/01/2022 Allergic rhinitis 09/01/2022 Amenorrhea 09/01/2022 Asthma without status asthmaticus ([facility]) 09/01/2022 Attention deficit hyperactivity disorder ([facility]) 09/01/2022 Asthma affecting , antepartum ([facility]) 09/01/2022 Binge eating disorder 09/01/2022 Difficulty concentrating 09/01/2022 Irregular menstrual cycle 09/01/2022 Left sided sciatica 09/01/2022 Insomnia 09/01/2022 Migraines ([facility] [place] 09/01/2022 Metallic taste 09/01/2022 Mild persistent asthma without complication ([facility] 09/01/2022 MTHFR mutation 09/01/2022 Nondependent cannabis abuse 09/01/2022 Other chronic pain 09/01/2022 Seasonal allergies 09/01/2022 Skin sensation disturbance 09/01/2022 Transitory mood disturbance 09/01/2022 Verruca plantaris 09/01/2022 Past Medical History: Diagnosis Date Acid reflux ADHD (attention deficit hyperactivity disorder) ([facility]) Asthma ([facility]) GERD (gastroesophageal reflux disease) Hypothyroid ([facility]) Lactose intolerance Marijuana use Migraine ([facility]) Mild persistent asthma, uncomplicated ([facility]) Supervision of normal Thyroid disease ([facility]) HISTORY PAST MEDICAL HISTORY SOCIAL HISTORY Past Medical History: Diagnosis Date Acid reflux ADHD (attention deficit hyperactivity disorder) ([facility]) Asthma ([facility]) Asthma affecting , antepartum ([facility]) GERD (gastroesophageal reflux disease) Hypothyroid ([facility]) Lactose intolerance Marijuana use Migraine ([facility]) Mild persistent asthma, uncomplicated ([facility]) MTHFR mutation Seasonal allergies Supervision of normal Thyroid disease ([facility]) Social History Tobacco Use Smoking status: [...] 2008 Plica band removal, left knee arthroscopy [place] BREAST REDUCTION 10/2018 TONSILLECTOMY 1998 REVIEW OF [...] nursing note reviewed. Exam conducted with a projection printer present. Vitals: Estimated body mass index is [...] for routine OB appointment. Documented by Lillie Auzl LPN on behalf of: Herber Coto DO documented in this encounter [facility] 04-13-2024 History of Presen t illness [...] to check FSBS. Blood Glucose Monitoring Suppl ([email or web address] Glucometer) w/Device kit 1 kit, Does not [...] esophagitis 09/01/2022 Moderate persistent asthma without complication ([facility] [place] [place]) 09/01/2022 Hypothyroidism, unspecified ([facility] [place] [place]) 03/02/2020 Moderate asthma ([facility]) 01/11/2024 Resolved Ambulatory Problems Diagnosis Date Noted Acquired hypothyroidism ([facility]) 09/01/2022 Allergic rhinitis 09/01/2022 Amenorrhea 09/01/2022 Asthma without status asthmaticus ([facility]) 09/01/2022 Attention deficit hyperactivity disorder ([facility]) 09/01/2022 Asthma affecting , antepartum ([facility]) 09/01/2022 Binge eating disorder 09/01/2022 Difficulty concentrating 09/01/2022 Irregular menstrual cycle 09/01/2022 Left sided sciatica 09/01/2022 Insomnia 09/01/2022 Migraines ([facility]) 09/01/2022 Metallic taste 09/01/2022 Mild persistent asthma without complication ([facility]) 09/01/2022 MTHFR mutation 09/01/2022 Nondependent cannabis abuse 09/01/2022 Other chronic pain 09/01/2022 Seasonal allergies 09/01/2022 Skin sensation disturbance 09/01/2022 Transitory mood disturbance 09/01/2022 Verruca plantaris 09/01/2022 Past Medical History: Diagnosis Date Acid reflux ADHD (attention deficit hyperactivity disorder) ([facility]) Asthma ([facility]) GERD (gastroesophageal reflux disease) Hypothyroid ([facility]) Lactose intolerance Marijuana use Migraine ([facility]) Mild persistent asthma, uncomplicated ([facility]) Supervision of normal Thyroid disease ([facility]) HISTORY PAST MEDICAL HISTORY SOCIAL HISTORY Past Medical History: Diagnosis Date Acid reflux ADHD (attention deficit hyperactivity disorder) ([facility] Asthma ([facility]) Asthma affecting , antepartum ([facility]) GERD (gastroesophageal reflux disease) Hypothyroid ([facility]) Lactose intolerance Marijuana use Migraine ([facility]) Mild persistent asthma, uncomplicated ([facility]) MTHFR mutation Seasonal allergies Supervision of normal Thyroid disease ([facility]) Social History Tobacco Use Smoking status: [...] 2008 Plica band removal, left knee arthroscopy [place] BREAST REDUCTION 10/2018 TONSILLECTOMY 1998 REVIEW OF [...] Documented by FERN Luis on behalf of: FREN Luis documented in this encounter [facility] 04-06-2024 History of Presen t illness [...] tablet As directed Blood Glucose Monitoring Suppl ([email or web address] Glucometer) w/Device kit 1 kit, Does not [...] esophagitis 09/01/2022 Moderate persistent asthma without complication ([facility] [place] [place]) 09/01/2022 Hypothyroidism, unspecified ([facility] [place] [place]) 03/02/2020 Moderate asthma ([facility] [place] [place]) 01/11/2024 Resolved Ambulatory Problems Diagnosis Date Noted Acquired hypothyroidism ([facility] [place] [place]) 09/01/2022 Allergic rhinitis 09/01/2022 Amenorrhea 09/01/2022 Asthma without status asthmaticus ([facility] [place] [place]) 09/01/2022 Attention deficit hyperactivity disorder ([facility] [place] [place]) 09/01/2022 Asthma affecting , antepartum ([facility] [place] [place]) 09/01/2022 Binge eating disorder 09/01/2022 Difficulty concentrating 09/01/2022 Irregular menstrual cycle 09/01/2022 Left sided sciatica 09/01/2022 Insomnia 09/01/2022 Migraines ([facility] [place] [place]) 09/01/2022 Metallic taste 09/01/2022 Mild persistent asthma without complication ([facility] [place] [place]) 09/01/2022 MTHFR mutation 09/01/2022 Nondependent cannabis abuse 09/01/2022 Other chronic pain 09/01/2022 Seasonal allergies 09/01/2022 Skin sensation disturbance 09/01/2022 Transitory mood disturbance 09/01/2022 Verruca plantaris 09/01/2022 Past Medical History: Diagnosis Date Acid reflux ADHD (attention deficit hyperactivity disorder) ([facility] [place] [place]) Asthma ([facility] [place] [place]) GERD (gastroesophageal reflux disease) Hypothyroid ([facility] [place] [place]) Lactose intolerance Marijuana use Migraine ([facility] [place] [place]) Mild persistent asthma, uncomplicated ([facility] [place] [place]) Supervision of normal Thyroid disease ([facility] [place] [place]) HISTORY PAST MEDICAL HISTORY SOCIAL HISTORY Past Medical History: Diagnosis Date Acid reflux ADHD (attention deficit hyperactivity disorder) ([facility] [place] [place]) Asthma ([facility] [place] [place]) Asthma affecting , antepartum (CMS/HCC) GERD (gastroesophageal [...] 2008 Plica band removal, left knee arthroscopy [place] BREAST REDUCTION 10/2018 TONSILLECTOMY 1998 REVIEW OF [...] one week. We will send order to fb for diabetic teaching and follow up with her next week. Orders Placed This Encounter Procedures POCT urinalysis dipstick manually resulted Follow Up: Patient is to return to office in 2 week for routine OB appointment. Documented by FERN Luis on behalf of: FERN Luis documented in this encounter [facility] 03-09-2024 History of Presen t illness [...] esophagitis 09/01/2022 Moderate persistent asthma without complication ([facility] [place] [place]) 09/01/2022 Hypothyroidism, unspecified ([facility]) 03/02/2020 Moderate asthma ([facility]) 01/11/2024 Resolved Ambulatory Problems Diagnosis Date Noted Acquired hypothyroidism ([facility]) 09/01/2022 Allergic rhinitis 09/01/2022 Amenorrhea 09/01/2022 Asthma without status asthmaticus ([facility]) 09/01/2022 Attention deficit hyperactivity disorder ([facility]) 09/01/2022 Asthma affecting , antepartum ([facility]) 09/01/2022 Binge eating disorder 09/01/2022 Difficulty concentrating 09/01/2022 Irregular menstrual cycle 09/01/2022 Left sided sciatica 09/01/2022 Insomnia 09/01/2022 Migraines ([facility]) 09/01/2022 Metallic taste 09/01/2022 Mild persistent asthma without complication ([facility]) 09/01/2022 MTHFR mutation 09/01/2022 Nondependent cannabis abuse 09/01/2022 Other chronic pain 09/01/2022 Seasonal allergies 09/01/2022 Skin sensation disturbance 09/01/2022 Transitory mood disturbance 09/01/2022 Verruca plantaris 09/01/2022 Past Medical History: Diagnosis Date Acid reflux ADHD (attention deficit hyperactivity disorder) ([facility]) Asthma ([facility]) GERD (gastroesophageal reflux disease) Hypothyroid ([facility]) Lactose intolerance Marijuana use Migraine ([facility]) Mild persistent asthma, uncomplicated ([facility]) Supervision of normal Thyroid disease ([facility]) HISTORY PAST MEDICAL HISTORY SOCIAL HISTORY Past Medical History: Diagnosis Date Acid reflux ADHD (attention deficit hyperactivity disorder) ([facility] Asthma ([facility]) Asthma affecting , antepartum ([facility]) GERD (gastroesophageal reflux disease) Hypothyroid ([facility]) Lactose intolerance Marijuana use Migraine ([facility]) Mild persistent asthma, uncomplicated ([facility] [place] [place]) MTHFR mutation Seasonal allergies Supervision of normal Thyroid disease ([facility]) Social History Tobacco Use Smoking status: [...] 2008 Plica band removal, left knee arthroscopy [place] BREAST REDUCTION 10/2018 TONSILLECTOMY 1998 REVIEW OF [...] of: FERN Luis documented in this encounter [facility] 03-09-2024 Miscellaneous Notes Addended by: NIALL CONSTANTINO on: 03/10/2024 09:01 AM Modules accepted: Orders documented in this encounter [facility] 03-09-2024 Note Addended by: NIALL CLEVELAND on: 03/10/2024 09:01 AM Modules accepted: Orders [facility] 03-09-2024 Note Addended by: NIALL CLEVELAND on: 03/10/2024 09:01 AM Modules accepted: Orders [facility] 02-10-2024 History of Presen t illness Narrative [...] esophagitis 09/01/2022 Moderate persistent asthma without complication ([facility] [place] [place]) 09/01/2022 Hypothyroidism, unspecified ([facility] [place] [place]) 03/02/2020 Moderate asthma ([facility]) 01/11/2024 Resolved Ambulatory Problems Diagnosis Date Noted Acquired hypothyroidism ([facility]) 09/01/2022 Allergic rhinitis 09/01/2022 Amenorrhea 09/01/2022 Asthma without status asthmaticus ([facility] [place] [place]) 09/01/2022 Attention deficit hyperactivity disorder ([facility]) 09/01/2022 Asthma affecting , antepartum ([facility]) 09/01/2022 Binge eating disorder 09/01/2022 Difficulty concentrating 09/01/2022 Irregular menstrual cycle 09/01/2022 Left sided sciatica 09/01/2022 Insomnia 09/01/2022 Migraines ([facility]) 09/01/2022 Metallic taste 09/01/2022 Mild persistent asthma without complication ([facility]) 09/01/2022 MTHFR mutation 09/01/2022 Nondependent cannabis abuse 09/01/2022 Other chronic pain 09/01/2022 Seasonal allergies 09/01/2022 Skin sensation disturbance 09/01/2022 Transitory mood disturbance 09/01/2022 Verruca plantaris 09/01/2022 Past Medical History: Diagnosis Date Acid reflux ADHD (attention deficit hyperactivity disorder) ([facility]) Asthma ([facility]) GERD (gastroesophageal reflux disease) Hypothyroid ([facility]) Lactose intolerance Marijuana use Migraine ([facility]) Mild persistent asthma, uncomplicated ([facility]) Supervision of normal Thyroid disease ([facility]) HISTORY PAST MEDICAL HISTORY SOCIAL HISTORY Past Medical History: Diagnosis Date Acid reflux ADHD (attention deficit hyperactivity disorder) ([facility] Asthma ([facility]) Asthma affecting , antepartum ([facility]) GERD (gastroesophageal reflux disease) Hypothyroid ([facility]) Lactose intolerance Marijuana use Migraine ([facility]) Mild persistent asthma, uncomplicated ([facility]) MTHFR mutation Seasonal allergies Supervision of normal Thyroid disease ([facility]) Social History Tobacco Use Smoking status: [...] 2008 Plica band removal, left knee arthroscopy [place] BREAST REDUCTION 10/2018 TONSILLECTOMY 1998 REVIEW OF [...] Herber Coto DO documented in this encounter [facility] 01-11-2024 History of Presen t illness [...] esophagitis 09/01/2022 Moderate persistent asthma without complication ([facility] [place] [place]) 09/01/2022 Hypothyroidism, unspecified ([facility] [place] [place]) 03/02/2020 Resolved Ambulatory Problems Diagnosis Date Noted Acquired hypothyroidism ([facility]) 09/01/2022 Allergic rhinitis 09/01/2022 Amenorrhea 09/01/2022 Asthma without status asthmaticus ([facility] [place] [place]) 09/01/2022 Attention deficit hyperactivity disorder ([facility]) 09/01/2022 Asthma affecting , antepartum ([facility]) 09/01/2022 Binge eating disorder ([facility]) 09/01/2022 Difficulty concentrating 09/01/2022 Irregular menstrual cycle 09/01/2022 Left sided sciatica 09/01/2022 Insomnia 09/01/2022 Migraines ([facility]) 09/01/2022 Metallic taste 09/01/2022 Mild persistent asthma without complication (CMS/HCC) 09/01/2022 MTHFR mutation 09/01/2022 Nondependent cannabis abuse 09/01/2022 Other chronic pain 09/01/2022 Seasonal allergies 09/01/2022 Skin sensation disturbance 09/01/2022 Transitory mood disturbance 09/01/2022 Verruca plantaris 09/01/2022 Past Medical History: Diagnosis Date Acid reflux ADHD (attention deficit hyperactivity disorder) ([facility]) Asthma ([facility]) GERD (gastroesophageal reflux disease) Hypothyroid ([facility]) Lactose intolerance Marijuana use Migraine ([facility]) Mild persistent asthma, uncomplicated ([facility]) Supervision of normal Thyroid disease ([facility]) HISTORY PAST MEDICAL HISTORY SOCIAL HISTORY Past Medical History: Diagnosis Date Acid reflux ADHD (attention deficit hyperactivity disorder) ([facility]) Asthma ([facility]) Asthma affecting , antepartum ([facility]) GERD (gastroesophageal reflux disease) Hypothyroid ([facility]) Lactose intolerance Marijuana use Migraine ([facility]) Mild persistent asthma, uncomplicated ([facility]) MTHFR mutation Seasonal allergies Supervision of normal Thyroid disease ([facility]) Social History Tobacco Use Smoking status: [...] 2008 Plica band removal, left knee arthroscopy [place] BREAST REDUCTION 10/2018 TONSILLECTOMY 1998 REVIEW OF [...] nursing note reviewed. Exam conducted with a projection printer present. Vitals: Estimated body mass index is [...] or undercooked meat, and stay away from [facility]. Patient has been consulted regarding any [...] done she will reach out to office. Group Exercise Instructor will be notified at time of delivery [...] . Informed patient since she sees a Data Sme to schedule appointment to make sure asthma is controlled during . Patient is currently taking Proximagen Chewable kids vitamins. Patient is taking 2 [...] Herber Coto DO documented in this encounter [facility] 06-04-2023 Telephone encount er Note Sent [facility] 06-04-2023 Miscellaneous Notes Formattin g of this note might be different from the original. Sent Patient requesting refill/[place] documented in this encounter [facility] 06-02-2023 Telephone encount er Note Patient requesting refill/[place] [facility] Evaluation note Diagnosis Attention deficit hyperactivity disorder (ADHD), combined type ([facility]) [facility] noteNo assessment information available[facility] Work Phone: Evaluation note* [...] section and content) DATE CREATED AUTHOR 11/18/2018 [facility] DATE CREATED AUTHOR AUTHOR'S ORGANIZ ATION 11/26/2018 [facility] DATE CREATED AUTHOR AUTHOR'S ORGANIZ ATION 09/09/2022 [facility] DATE CREATED AUTHOR AUTHOR'S ORGANIZ ATION 03/16/2024 [facility] DATE CREATED AUTHOR AUTHOR'S ORGANIZ ATION 05/13/2024 [facility] EPIC Reason for Visit (unrecogniz ed section and content) Reason Onset Date Comments Med Refill 06/02/2023 Reason Comments Routine Visit Care Teams (unrecognized sec tion and content) [facility] Relationship Specialty Start Date End Date Carlos Alberto Coleman MD [address] [place] [address] PCP - General Family Medicine 09/24/22 Tori Martinez NP [address] [place] [address] Nurse Practitioner Family Medicine 09/24/22 Sofie Gr NP [address] [place] [address] Nurse Practitioner Pulmonary Disease 04/14/23 Team Status: Active Member Role Status Dates Carlos Alberto Coleman MD Primary Care Provider Active Team Status: Inactive Member Role Status Dates Carlos Alberto Coleman MD Primary Care Provider Active S tart: July 13, 2023 End: July 13, 2023 Sofie Gr NP-C Attending Provider Active Start: July 13, 2023 End: July 13, 2023 [facility] Relationship Specialty Start Date End Date Carlos Alberto Coleman MD [address] [place] [id number] PCP - General Family Medicine 09/24/22 Tori Martinez NP [address] [place] [address] PCP - [place] [employer] 05/28/23 Tori Martinez NP [address] [place] [address] Nurse Practitioner Family Medicine 09/24/22 Sofie Gr NP [address] [place] [phone] Nurse Practitioner Pulmonary Disease 04/14/23 [facility] Relationship Specialty Start Date End Date Carlos Alberto Coleman MD [address] [place] [address] PCP - General Family Medicine 09/24/22 Tori Martinez NP [address] [place] [address] PCP - [place] [employer] 05/28/23 Tori Martinez NP [address] [place] [place] [address] Nurse Practitioner Family Medicine 09/24/22 Sofie Gr NP [address] [place] [place] [phone] Nurse Practitioner Pulmonary Disease 04/14/23 [facility] Relationship Specialty Start Date End Date Carlos Alberto Coleman MD [address] [place] [address] PCP - General Family Medicine 09/24/22 Tori Martinez NP [address] [place] [address] PCP - [place] [employer] 05/28/23 Tori Martinez NP [address] [place] [address] Nurse Practitioner Family Medicine 09/24/22 Sofie Gr NP [address] [place] [phone] Nurse Practitioner Pulmonary Disease 04/14/23 [facility] Relationship Specialty Start Date End Date Carlos Alberto Coleman MD [address] [place] [address] PCP - General Family Medicine 09/24/22 Tori Maritnez NP [address] [place] [address] PCP - [place] [employer] 05/28/23 Tori Martinez NP [address] [place] [address] Nurse Practitioner Family Medicine 09/24/22 Sofie Gr NP [address] [place] [phone] Nurse Practitioner Pulmonary Disease 04/14/23 [facility] Relationship Specialty Start Date End Date Carlos Alberto Coleman MD [address] [place] [address] PCP - General Family Medicine 09/24/22 Tori Martinez NP [address] [place] [address] PCP - [place] [employer] 05/28/23 Tori Martinez NP [address] [place] [address] Nurse Practitioner Family Medicine 09/24/22 Sofie Gr NP [address] [place] [phone] Nurse Practitioner Pulmonary Disease 04/14/23 [facility] Relationship Specialty Start Date End Date Carlos Alberto Coleman MD [address] [place] [address] PCP - General Family Medicine 09/24/22 Tori Martinez NP [address] [place] [address] PCP - [place] [facility] 05/28/23 Tori Martinez NP [address] [place] [address] Nurse Practitioner Family Medicine 09/24/22 Sofie Gr NP [address] [place] [address] Nurse Practitioner Pulmonary Disease 04/14/23 [facility] Specialty Start Date End Date Carlos Alberto Coleman MD [address] [place] [address] PCP - General Family Medicine 09/24/22 Tori Martinez NP [address] [place] [address] PCP - [facility] 05/28/23 Tori Martinez NP [address] [place] [address] Nurse Practitioner Family Medicine 09/24/22 Sofie Gr NP [address] [place] [id number] Nurse Practitioner Pulmonary Disease 04/14/23 [facility] Specialty Start Date End Date Carlos Alberto Coleman MD [address] [place] [address] PCP - General Family Medicine 09/24/22 Tori Martinez NP [address] [place] [address] PCP - [place] [facility] 05/28/23 Tori Martinez NP [address] [place] [address] Nurse Practitioner Family Medicine 09/24/22 Sofie Gr NP [address] [place] [phone] Nurse Practitioner Pulmonary Disease 04/14/23 [facility] Specialty Start Date End Date Carlos Alberto Coleman MD [address] [place] [address] PCP - General Family Medicine 09/24/22 Tori Martinez NP [address] [place] [address] PCP - [facility] 05/28/23 Tori Martinez NP [address] [place] [address] Nurse Practitioner Family Medicine 09/24/22 Sofie Gr NP [address] [place] [phone] Nurse Practitioner Pulmonary Disease 04/14/23 [facility] Relationship Specialty Start Date End Date Carlos Alberto Coleman MD [address] [place] [address] PCP - General Family Medicine 09/24/22 Tori Martinez NP [address] [place] [address] PCP - [facility] 05/28/23 Tori Martinez NP [address] [place] [address] Nurse Practitioner Family Medicine 09/24/22 Sofie Gr NP [address] [place] [phone] Nurse Practitioner Pulmonary Disease 04/14/23 [facility] Specialty Start Date End Date Carlos Alberto Coleman MD [address] [place] [address] PCP - General Family Medicine 09/24/22 Tori Martinez NP [address] [place], [facility] PCP - [place] [facility] 05/28/23 Tori Martinez NP [address] [place] [address] Nurse Practitioner Family Medicine 09/24/22 Sofie Gr NP [address] [place] [phone] Nurse Practitioner Pulmonary Disease 04/14/23 [facility] Specialty Start Date End Date Carlos Alberto Coleman MD [address] [place] [address] PCP - General Family Medicine 09/24/22 Tori Martinez NP [address] [place] [address] PCP - [place] [facility] 05/28/23 Tori Martinez NP [address] [place] [address] Nurse Practitioner Family Medicine 09/24/22 Sofie Gr NP [address] [place] [phone] Nurse Practitioner Pulmonary Disease 04/14/23 [facility] Relationship Specialty Start Date End Date Carlos Alberto Coleman MD [address] [place] [address] PCP - General Family Medicine 09/24/22 Tori Martinez NP [address] [place] [address] PCP - [facility] 05/28/23 Tori Martinez NP [address] [place] [address] Nurse Practitioner Family Medicine 09/24/22 Sofie Gr NP [address] [place] [address] Nurse Practitioner Pulmonary Disease 04/14/23 Goals (unrecognized [...] BE BASED ON THE PRIMARY CLINICAL RECORDS. [employer] [email or web address] provides no warranty or guarantee of the accuracy or completeness of information in this document.
--- NOTE | 2024-05-16 19:11 | US_ITS ---
[place] [address] Patient Name: JULIÁN JIMENEZ MRN: [facility]:[id number] date: 1995 Sex: F Assigned Patient Location: [facility] Current Patient Location: Accession/Order Number: [id number] Exam Date: 05/16/2024 19:15 Report Date: 05/17/2024 07:38 At the request of: LACY AVILES Procedure: US OB BPP w non-stress EXAMINATION: US OB BPP w non-stress HISTORY:GDM COMPARISON: Ultrasound OB biophysical 05/09/2024 TECHNIQUE: Ultrasound biophysical profile was performed in the radiology department. BREATHING MOVEMENTS: 2 GROSS BODY MOVEMENTS: 2 TONE: 2 QUALITATIVE AMNIOTIC FLUID VOLUME: 2 PRESENTATION: CEPHALIC HEART RATE: 131.07 bpm AMNIOTIC FLUID VOLUME: 14.46 cm GESTATIONAL AGE: 33 weeks 4 days US/US OB BPP w non-stress IMPRESSION: Total biophysical profile score: 8 Electronically authenticated by: [email or web address] TERAN Date: 05/17/2024 07:38
[2024-05-16 19:45] VITALS: BP 116/71; PULSE 67
== END 2024-05-16 20:13 | disposition home or self-care (01) ==
LOC: FBCO 19:05 → FBC 19:09
PROVIDERS: PCP Family Medicine; Visit Provider Obstetrics & Gynecology
DX: O24.419 Gestational diabetes mellitus in pregnancy, unspecified control (principal); Z3A.33 33 weeks gestation of pregnancy
CPT/HCPCS: 76818

== ENCOUNTER 2024-05-19 01:16 | Outpatient (OUT) | payer BC, MEDICAID, SELFPAY ==
--- OUTSIDE RECORDS SUMMARY | 2024-05-19 01:21 | XMS_ITS | CCD ---
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 Name Role Phone RENEE, MODE R Referring Unavailable COLEMAN, CARLOS ALBERTO Primary Care Unavailable RENEE, MODE R Admitting Unavailable RENEE, MODE R Attending Unavailable COLMEAN, CARLOS ALBERTO Primary Care Unavailable KARASIK ., DR ZALDIVAR Consulting Unavailabl e KIEPERT, ÁNGEL Primary Care Unavailable KARASIK ., DR ZALDIVAR Attending Unavailabl e KARASIK ., DR ZALDIVAR Admitting Unavailabl e ZIEBINDIRA, DR YAAKOV Miranda Consulting Unavailable KIEPERT, ÁNGEL Consulting Unavailable KIEPERT, ÁNGEL Primary Care Unavailable KIEPERT, ÁNGEL Attending Unavailable KIEPERT, ÁNGEL Admitting Unavailable [place], DR DEANNA Lance Consulting Unavailable PAY ., [...] Alberto Coleman MD Primary Care Provider Kylee DESPATCHING AND RECEIVING CLERK, Tori Unavailable Maile DESPATCHING AND RECEIVING CLERK, Sofie R Unavailable [phone] MD Carlos Alberto Coleman Primary Care Provider [phone] HEATH[address] Attending Provider Maile DESPATCHING AND RECEIVING CLERK, Sofie R Unavailable Kylee DESPATCHING AND RECEIVING CLERK, Tori Unavailable Sofie Gr Attending Unavailable [...] source) Cefuroxime Drug Allergy 04-04-20 22 [facility] (2 sources) Ciprofloxacin Drug Allergy 04-03-20 16 [facility] (2 sources) Doxycycline Drug Allergy 05-20-19 21 vomiting [facility] (1 source) Flupenthixol Drug Allergy 04-04-20 22 [facility] (20 sources) Cefuroxime Drug Allergy 05-20-19 21 Rash [facility] (20 sources) Ciprofloxacin Drug Allergy 09-02-19 23 Shortness of breath [facility] (20 sources) Ciprofloxacin Drug Allergy 09-02-19 23 Shortness of breath [facility] (20 sources) cloNIDine Drug Allergy 03-14-20 21 [facility] (20 sources) cloNIDine Drug Allergy 09-02-19 23 [facility] (20 sources) Doxycycline Drug Allergy 05-20-19 21 GI intolerance [facility] (20 sources) Gluten Propensity to adverse reactions 11-11-19 19 [facility] (20 sources) Lactose (non-medical use) Allergy to substance 09-02-19 23 [facility] (20 sources) Lactose (non-medical use) Drug Intolerance 11-11-19 19 [facility] (20 sources) Octacosanol Drug Intolerance 11-11-19 19 [facility] (20 sources) Other Allergy to substance 11-11-19 19 [facility] (20 sources) Silver Allergy to substance 09-02-19 23 [facility] (20 sources) Wound Dressing Adhesive Drug Allergy 09-02-19 23 [facility] (1 source) Cefuroxime Drug Allergy 05-20-19 [facility] (1 source) Ciprofloxacin Drug Allergy 05-20-19 [facility] (1 source) Doxycycline Drug Allergy 05-20-19 21 [facility] Medications Current Medications Medication Drug Class(es) Dates Sig (Normalized) Sig (Original) [id number] 200 actuat albuterol 0.09 mg/actuat metered dose [...] UA Negative Negative - 4(70) +++ mg/dL [facility] Blood, UA Negative Negative - 50 Mendel/mcL [facility] Clarity, UA Clear [facility] Color, UA Yellow [facility] Glucose, UA Negative Negative - 1999(110) ++++ mg/dL [facility] Interpretation and review of laboratory results Abnormal [facility] Ketones, UA Negative Negative - 160(16) ++++ mg/dL [facility] Leukocytes, UA Positive Negative - 500+++ Leighann/mcL [facility] Comment on above: small Nitrite, UA Negative Negative - Positive [facility] pH, UA 6 5 - 9 [facility] Protein, UA Negative Negative - 1999(20) ++++ mg/dL [facility] Spec Grav, UA 1.03 1 - 1.03 [facility] Urobilinogen, UA 1.0 0.2 - 12 mg/dL [facility] Urinalysis macro (dipstick) panel (U)on 04-21-2024 Bilirubin, UA Negative Negative - 4(70) +++ mg/dL [facility] Blood, UA Negative Negative - 50 Mendel/mcL [facility] Clarity, UA Clear [facility] Color, UA Light Yellow [facility] Glucose, UA Negative Negative - 1999(110) ++++ mg/dL [facility] Interpretation and review of laboratory results Normal [facility] Ketones, UA Negative Negative - 160(16) ++++ mg/dL [facility] Leukocytes, UA Few Negative - 500+++ Leighann/mcL [facility] Nitrite, UA Negative Negative - Positive [facility] pH, UA 5.5 5 - 9 [facility] Protein, UA Trace Negative - 1999(20) ++++ mg/dL [facility] Spec Grav, UA 1.03 1 - 1.03 [facility] Urobilinogen, UA 0.2 0.2 - 12 mg/dL [facility] Urinalysis macro (dipstick) panel (U)on 04-13-2024 Bilirubin, UA Negative Negative - 4(70) +++ mg/dL [facility] Blood, UA Negative Negative - 50 Mendel/mcL [facility] Clarity, UA Clear [facility] Color, UA Yellow [facility] Glucose, UA Negative Negative - 1999(110) ++++ mg/dL [facility] Interpretation and review of laboratory results Normal [facility] Ketones, UA Negative Negative - 160(16) ++++ mg/dL [facility] Leukocytes, UA Negative Negative - 500+++ Leighann/mcL [facility] Nitrite, UA Negative Negative - Positive [facility] pH, UA 5.5 5 - 9 [facility] Protein, UA Negative Negative - 1999(20) ++++ mg/dL [facility] Spec Grav, UA 1.03 1 - 1.03 [facility] Urobilinogen, UA 0.2 0.2 - 12 mg/dL [facility] Urinalysis macro (dipstick) panel (U)on 04-06-2024 Bilirubin, UA Negative Negative - 4(70) +++ mg/dL [facility] Blood, UA Negative Negative - 50 Mendel/mcL [facility] Clarity, UA Clear [facility] Color, UA Yellow [facility] Glucose, UA Negative Negative - 1999(110) ++++ mg/dL [facility] Interpretation and review of laboratory results Normal [facility] Ketones, UA Negative Negative - 160(16) ++++ mg/dL [facility] Leukocytes, UA Negative Negative - 500+++ Leighann/mcL [facility] Nitrite, UA Negative Negative - Positive [facility] pH, UA 6 5 - 9 [facility] Protein, UA Negative Negative - 1999(20) ++++ mg/dL [facility] Spec Grav, UA 1.015 1 - 1.03 [facility] Urobilinogen, UA 0.2 0.2 - 12 mg/dL [facility] ALL CBC WITH AUTO DIFFon BASOPHILS ABSOLUTE AUTO 0 [facility] Basophils/100 WBC (Bld) 0.2 % 0.2 - 2.0 % [facility] Eosinophils/100 WBC (Bld) 0.7 % Low 0.9 - 7.0 % [facility] Erythrocyte distribution width (RBC) [Ratio] 12.3 % 11.0 - 15.0 % [facility] Hematocrit (Bld) [Volume fraction] 35.3 % Low 36.0 - 48.0 % [facility] Hemoglobin (Bld) [Mass/Vol] 11.8 g/dL Low 12.0 - 16.0 g/dL [facility] IMMATURE GRANULOCYTES ABS AUTO 0.04 High [facility] Immature granulocytes/100 WBC (Bld) 0.5 % 0.0 - 0.5 % [facility] Interpretation and review of laboratory results Abnormal [facility] LYMPHOCYTES ABSOLUTE AUTO 1.5 [facility] Lymphocytes/100 WBC (Bld) 17.1 % Low 20.5 - 60.0 % [facility] MCH (RBC) [Entitic mass] 31.1 pg 26.7 - 34.0 pg [facility] MCHC (RBC) [Mass/Vol] 33.4 g/dL 29.9 - 35.2 g/dL [facility] MCV (RBC) [Entitic vol] 93.1 fL 81.0 - 99.0 fL [facility] MONOCYTES ABSOLUTE AUTO 0.6 [facility] Monocytes/100 WBC (Bld) 7.2 % 1.7 - 12.0 % [facility] NEUTROPHILS ABSOLUTE AUTO 6.5 [facility] Neutrophils/100 WBC (Bld) 74.3 % 43.0 - 75.0 % [facility] Platelet mean volume (Bld) [Entitic vol] 10.6 fL 9.5 - 13.5 fL [facility]H EO # 0.1 [facility] PLT [address] [facility] RBC 3.79 Low [facility] WBC 8.8 [facility] IGP,APTIMA HPV,AGE GDLNon AGE GDLN ACOG TESTING Note . [facility] Comment on above: TESTS RESULT FLAG UN ITS REF RANGE LAB Clinician Provided Cytology Information Source.............Cervix No. of containers..01 ThinPrep Vial Age Algo ACOG Sonja... 28- FLAG LEGEND: L-Low Normal,H-High Normal,LL-Alert Low,HH-Alert High <-Panic Low,>-Panic High,A-Abnormal,AA-Critical Abnormal Performed at: 01 =[address] [address] Radha Browne MD, HPV APTIMA Negative Negative [facility] Comment on above: This nucleic acid am plification test detects fourteen high- risk HPV types (16,18,31,33,35,39,45,51,52,56,58,59,66,68) without differentiation. Performed at: =[address] [id number] Kennel Supervisor: Radha Browne MD, Phone: [phone] Performed at: [address] [id number] Kennel Supervisor: Radha Browne MD, Phone: [phone] IGP, APTIMA HPV, RFX 16/18,45 Note . [facility] Comment on above: TESTS RESULT FLAG UN ITS REF RANGE LAB DIAGNOSIS: 02 NEGATIVE FOR INTRAEPITHELIAL LESION OR MALIGNANCY. Specimen adequacy: 02 Satisfactory for evaluation. No endocervical component is identified. Performed by: 02 Danie Vargas, Optoelectronics Engineer (ASC) . 02 Note: Note 02 The [...] High,A-Abnormal,AA-Critical Abnormal Performed at: 02 [address] [facility] [address] [id number] Radha Browne MD, SPATULA-ALONE CERVIX [facility] Cytology Cervical or vaginal smear or scraping studyon 02-10-2024 [facility] Urinalysis macro (dipstick) panel (U)on 02-10-2024 Bilirubin, UA Negative Negative - 4(70) +++ mg/dL [facility] Blood, UA Negative Negative - 50 Mendel/mcL [facility] Clarity, UA Clear [facility] Color, UA Yellow [facility] Glucose, UA Negative Negative - 1999(110) ++++ mg/dL [facility] Interpretation and review of laboratory results Abnormal [facility] Ketones, UA Negative Negative - 160(16) ++++ mg/dL [facility] Leukocytes, UA Trace Negative - 500+++ Leighann/mcL [facility] Nitrite, UA Negative Negative - Positive [facility] pH, UA 7 5 - 9 [facility] Protein, UA Negative Negative - 1999(20) ++++ mg/dL [facility] Spec Grav, UA 1.02 1 - 1.03 [facility] Urobilinogen, UA 0.2 0.2 - 12 mg/dL [facility] ALL THYROID STIM HORMONEon 0 01-22-2024 TSH Qn 1.921 m[IU]/L [facility] Urinalysis macro (dipstick) panel (U)on 01-11-2024 Bilirubin, UA Negative Negative - 4(70) +++ mg/dL [facility] Blood, UA Negative Negative - 50 Mendel/mcL [facility] Clarity, UA Clear [facility] Color, UA Yellow [facility] Glucose, UA Negative Negative - 1999(110) ++++ mg/dL [facility] Interpretation and review of laboratory results Normal [facility] Ketones, UA Negative Negative - 160(16) ++++ mg/dL [facility] Leukocytes, UA Negative Negative - 500+++ Leighann/mcL [facility] Nitrite, UA Negative Negative - Positive [facility] pH, UA 6.0 5 - 9 [facility] Protein, UA Negative Negative - 1999(20) ++++ mg/dL [facility] Spec Grav, UA 1.015 1 - 1.03 [facility] Urobilinogen, UA 0.2 0.2 - 12 mg/dL [facility] BioFire Not Detectedon 07-12 BioFire Not Detected Not detected Normal Not Detecte T [facility] Comment on above: Result Comment: This is a duplicate RP2.1 COVID (PCR) result to be used for statistical tracking purpose only. PERFORMED BY: [place] [address] PATHOLOGIST PC INSTALLATION ENGINEER CATY NEELY M.D. Performed By: #### R RODGER PANEL UPP., BIOFIRECOVNOTDE #### [address] COVID-19 Detected/Not Detect edOrdered By: Sofie Gr on 07-13-2023 SARS-CoV-2 (COVID-19) RNA JUAN+non-probe Ql (Nph) Not detected Not Detecte [facility] Comment on above: This [...] Influenza A H3 Blank Space PERFORMED BY: [place] [address] PATHOLOGIST PC INSTALLATION ENGINEER CATY NEELY M.D. Normal [facility] Comment on above: Performed By: #### R RODGER PANEL UPP., BIOFIRECOVNOTDE #### [address] Respiratory pathogens DNA an d RNA panel - Nasopharynx by JUAN with non-probe detectionOrdered By: Sofie Gr on 07-13-2023 Respiratory pathogens DNA and RNA panel JUAN+non-probe (Nph) [facility] CBC AUTO DIFFon 06-25-2022 BASO # 0.0 103/ul Normal 0.0-0.1 [facility] Comment on above: Performed By: #### C BC #### [facility] [address] [address] [address] Garland Kohli Basophils/100 WBC (Bld) 0.4 % Normal 0.2-2.0 [facility] Comment on above: Performed By: #### C BC #### [facility] [address] [address] [address] Garland Kohli EO # 0.1 103/ul Normal 0.0-0.7 [facility] Comment on above: Performed By: #### C BC #### [facility] [address] [place] [address] Dr. Garland Kohli Eosinophils/100 WBC (Bld) 0.9 % Normal 0.9-7.0 [facility] Comment on above: Performed By: #### C BC #### [facility] [address] [place] [address] Dr. Garland Kohli Erythrocyte distribution width (RBC) [Ratio] 12.4 % Normal 11.0-15.0 [facility] Comment on above: Performed By: #### C BC #### [facility] [address] [place] [address] Dr. Garland Kohli Hematocrit (Bld) [Volume fraction] 31.4 % Critically low 36.0-48.0 [facility] Comment on above: Performed By: #### C BC #### [facility] [address] [place] [address] Dr. Garland Kohli Hemoglobin (Bld) [Mass/Vol] 10.4 g/dL Critically low 12.0-16.0 [facility] Comment on above: Performed By: #### C BC #### [facility] [address] [place] [address] Dr. Garland Kohli IG # 0.04 10e3/ul Critically high 0.00-0.03 [facility] Comment on above: Performed By: #### C BC #### [facility] [address] [place] [address] Dr. Garland Kohli IG % 0.4 % Normal 0.0-0.5 [facility] Comment on above: Performed By: #### C BC #### [facility] [address] [place] [address] Dr. Garland Kohli LYMPH # 2.0 103/ul Normal 1.2-3.8 [facility] Comment on above: Performed By: #### C BC #### [facility] [address] [place] [address] Dr. Garland Kohli Lymphocytes/100 WBC (Bld) 22.1 % Normal 20.5-60.0 [facility] Comment on above: Performed By: #### C BC #### [facility] [address] [place] [address] Dr. Garland Kohli MANUAL DIFF REQ NO Normal [facility] Comment on above: Performed By: #### C BC #### [facility] [address] [place] [address] Dr. Garland Kohli MCH (RBC) [Entitic mass] 30.1 pg Normal 26.7-34.0 [facility] Comment on above: Performed By: #### C BC #### [facility] [address] [place] [address] Dr. Garland Kohli MCHC (RBC) [Mass/Vol] 33.1 g/dL Normal 29.9-35.2 [facility] Comment on above: Performed By: #### C BC #### [facility] [address] [place] [address] Dr. Garland Kohli MCV (RBC) [Entitic vol] 91.0 fL Normal 81.0-99.0 [facility] Comment on above: Performed By: #### C BC #### [facility] [address] [place] [address] Dr. Garland Kohli MONO # 0.8 103/ul Normal 0.3-0.8 [facility] Comment on above: Performed By: #### C BC #### [facility] [address] [place] [address] Dr. Garland Kohli Monocytes/100 WBC (Bld) 8.8 % Normal 1.7-12.0 [facility] Comment on above: Performed By: #### C BC #### [facility] [address] [place] [address] Dr. Garland Kohli NEUT # 6.0 103/ul Normal 1.4-6.5 [facility] Comment on above: Performed By: #### C BC #### [facility] [address] [place] [address] Dr. Garland Kohli Neutrophils/100 WBC (Bld) 67.4 % Normal 43.0-75.0 [facility] Comment on above: Performed By: #### C BC #### [facility] [address] [place] [address] Dr. Garland Kohli Platelet mean volume (Bld) [Entitic vol] 12.0 fL Normal 9.5-13.5 [facility] Comment on above: Performed By: #### C BC #### [facility] [address] [place] [address] Dr. Garland Kohli PLT 151 103/ul Normal 150-450 [facility] Comment on above: Performed By: #### C BC #### [facility] [address] [place] [address] Dr. Garland Kohli RBC 3.45 106/ul Critically low 4.20-5.40 [facility] Comment on above: Performed By: #### C BC #### [facility] [address] [place] [address] Dr. Garland Kohli WBC 8.9 103/ul Normal 4.0-11.0 [facility] Comment on above: Performed By: #### C BC #### [facility] [address] [place] [address] Dr. Garland Kohli CBC AUTO DIFFon 06-23-2022 BASO # 0.0 103/ul Normal 0.0-0.1 [facility] Comment on above: Performed By: #### C BC #### [facility] [address] [place] [address] Dr. Garland Kohli Basophils/100 WBC (Bld) 0.4 % Normal 0.2-2.0 [facility] Comment on above: Performed By: #### C BC #### [facility] [address] [place] [address] Dr. Garland Kohli EO # 0.1 103/ul Normal 0.0-0.7 [facility] Comment on above: Performed By: #### C BC #### [facility] [address] [place] [address] Dr. Garland Kohli Eosinophils/100 WBC (Bld) 0.8 % Critically low 0.9-7.0 [facility] Comment on above: Performed By: #### C BC #### [facility] [address] [place] [address] Dr. Garland Kohli Erythrocyte distribution width (RBC) [Ratio] 12.4 % Normal 11.0-15.0 [facility] Comment on above: Performed By: #### C BC #### [facility] [address] [place] [address] Dr. Garland Kohli Hematocrit (Bld) [Volume fraction] 34.5 % Critically low 36.0-48.0 [facility] Comment on above: Performed By: #### C BC #### [facility] [address] [place] [address] Dr. Garland Kohli Hemoglobin (Bld) [Mass/Vol] 11.6 g/dL Critically low 12.0-16.0 [facility] Comment on above: Performed By: #### C BC #### [facility] [address] [place] [address] Dr. Garland Kohli IG # 0.04 10e3/ul Critically high 0.00-0.03 [facility] Comment on above: Performed By: #### C BC #### [facility] [address] [place] [address] Dr. Garland Kohli IG % 0.5 % Normal 0.0-0.5 [facility] Comment on above: Performed By: #### C BC #### [facility] [address] [place] [address] Dr. Garland Kohli LYMPH # 1.3 103/ul Normal 1.2-3.8 [facility] Comment on above: Performed By: #### C BC #### [facility] [address] [place] [address] Dr. Garland Kolhi Lymphocytes/100 WBC (Bld) 17.6 % Critically low 20.5-60.0 [facility] Comment on above: Performed By: #### C BC #### [facility] [address] [place] [address] Dr. Garland Kohli MANUAL DIFF REQ NO Normal [facility] Comment on above: Performed By: #### C BC #### [facility] [address] [place] [address] Dr. Garland Kohli MCH (RBC) [Entitic mass] 29.6 pg Normal 26.7-34.0 [facility] Comment on above: Performed By: #### C BC #### [facility] [address] [place] [address] Dr. Garland Kohli MCHC (RBC) [Mass/Vol] 33.6 g/dL Normal 29.9-35.2 [facility] Comment on above: Performed By: #### C BC #### [facility] [address] [place] [address] Dr. Garland Kohli MCV (RBC) [Entitic vol] 88.0 fL Normal 81.0-99.0 [facility] Comment on above: Performed By: #### C BC #### [facility] [address] [place] [address] Dr. Garland Kohli MONO # 0.9 103/ul Critically high 0.3-0.8 [facility] Comment on above: Performed By: #### C BC #### [facility] [address] [place] [address] Dr. Garland Kohli Monocytes/100 WBC (Bld) 11.7 % Normal 1.7-12.0 [facility] Comment on above: Performed By: #### C BC #### [facility] [address] [place] [address] Dr. Garland Kohli NEUT # 5.1 103/ul Normal 1.4-6.5 [facility] Comment on above: Performed By: #### C BC #### [facility] [address] [place] [address] Dr. Garland Kohli Neutrophils/100 WBC (Bld) 69.0 % Normal 43.0-75.0 [facility] Comment on above: Performed By: #### C BC #### [facility] [address] [place] [address] Dr. Garland Kohli Platelet mean volume (Bld) [Entitic vol] 12.1 fL Normal 9.5-13.5 [facility] Comment on above: Performed By: #### C BC #### [facility] [address] [place] [address] Dr. Garland Kohli PLT 193 103/ul Normal 150-450 [facility] Comment on above: Performed By: #### C BC #### [facility] [address] [address] [address] Garland Kohli RBC 3.92 106/ul Critically low 4.20-5.40 [facility] Comment on above: Performed By: #### C BC #### [facility] [address] [place] [address] Dr. Garland Kohli WBC 7.4 103/ul Normal 4.0-11.0 [facility] Comment on above: Performed By: #### C BC #### [facility] [address] [place] [address] Dr. Garland Kohli DRUG SCREEN RAPID (URINE)on 06-23-2022 AMP Negative Normal NEGATIVE [facility] Comment on above: Performed By: #### D RUGRPD #### [facility] [address] [place] [address] Dr. Garland Kohli BAR Negative Normal NEGATIVE [facility] Comment on above: Performed By: #### D RUGRPD #### [facility] [address] [place] [address] Dr. Garland Kohli BUP Negative Normal NEGATIVE [facility] Comment on above: Performed By: #### D RUGRPD #### [facility] [address] [place] [address] Dr. Garland Kohli BZO Negative Normal NEGATIVE [facility] Comment on above: Performed By: #### D RUGRPD #### [facility] [address] [place] [address] Dr. Garland Kohli JUANI Negative Normal NEGATIVE [facility] Comment on above: Performed By: #### D RUGRPD #### [facility] [address] [place] [address] Dr. Garland Kohli CUT-OFFS SEE BELOW Normal [facility] Comment on above: Result Comment: AMP [...] ng/mL Performed By: #### D RUGRPD #### [facility] [address] [place] [address] Dr. Garland Kohli DRUG CUT HEADER DRUG CLASS TEST SYSTEM CUT-OFF CONCENTRATIONS ARE FOLLOWS: Normal [facility] Comment on above: Performed By: #### D RUGRPD #### [facility] [address] [place] [address] Dr. Garland Kohli mAMP Negative Normal NEGATIVE [facility] Comment on above: Performed By: #### D RUGRPD #### [facility] [address] [place] [address] Dr. Garland Kohli MTD Negative Normal NEGATIVE [facility] Comment on above: Performed By: #### D RUGRPD #### [facility] [address] [place] [address] Dr. Garland Kohli OPI Negative Normal NEGATIVE [facility] Comment on above: Performed By: #### D RUGRPD #### [facility] [address] [place] [address] Dr. Garland Kohli OXY Negative Normal NEGATIVE [facility] Comment on above: Performed By: #### D RUGRPD #### [facility] [address] [place] [address] Dr. Garland Kohli PCP Negative Normal NEGATIVE [facility] Comment on above: Performed By: #### D RUGRPD #### [facility] [address] [place] [address] Dr. Garland Kohli PPX Negative Normal NEGATIVE [facility] Comment on above: Performed By: #### D RUGRPD #### [facility] [address] [place] [address] Dr. Garland Kohli TCA Negative Normal NEGATIVE [facility] Comment on above: Performed By: #### D RUGRPD #### [facility] [address] [place] [address] Dr. Garland Kohli THC Negative Normal NEGATIVE [facility] Comment on above: Performed By: #### D RUGRPD #### [facility] [address] [place] [address] Dr. Garland Kohli TYPE AND SCREENon 06-23-2022 TYPE AND SCREEN Negative Normal [facility] Comment on above: Performed By: #### T NS #### [facility] [address] [place] [address] Dr. Garland Kohli FREE T4on 06-07-2022 Free T4 [Mass/Vol] 0.76 ng/dL Normal 0.76-1.46 [facility] Comment on above: Performed By: #### C BC #### [facility] [address] [place] [address] Dr. Garland Kohli TSHon 06-07-2022 TSH 1.393 uIU/mL Normal 0.358-3.740 [facility] Comment on above: Performed By: #### T SH #### [facility] [address] [place] [address] Dr. Garland Kohli GROUP B STREP CULTUREon S. agalactiae Ag Ql (Unsp spec) Culture Observations: NEGATIVE FOR GROUP B STREPTOCOCCUS. Normal [facility] Comment on above: Performed By: #### C BC #### [facility] [address] [place] [address] Dr. Garland Kohli GTT 3 HR PREGon 04-16-2022 Glucose [Mass/Vol] 87 mg/dL Normal 74-106 [facility] Comment on above: Performed By: #### G TT3P #### [facility] [address] [address] [address] Garland Kohli Glucose [Mass/Vol] 148 mg/dL Normal [facility] Comment on above: Performed By: #### G TT3P #### [facility] [address] [place] [address] Dr. Garland Kohli Glucose [Mass/Vol] 128 mg/dL Normal [facility] Comment on above: Performed By: #### G TT3P #### [facility] [address] [place] [address] Dr. Garland Kohli Glucose [Mass/Vol] 105 mg/dL Normal [facility] Comment on above: Performed By: #### G TT3P #### [facility] [address] [place] [address] Dr. Garland Kohli CBC AUTO DIFFon 04-04-2022 BASO # 0.0 103/ul Normal 0.0-0.1 [facility] Comment on above: Performed By: #### G TT3P #### [facility] [address] [place] [address] Dr. Garland Kohli Basophils/100 WBC (Bld) 0.2 % Normal 0.2-2.0 [facility] Comment on above: Performed By: #### G TT3P #### [facility] [address] [place] [address] Dr. Garland Kohli EO # 0.0 103/ul Normal 0.0-0.7 [facility] Comment on above: Performed By: #### G TT3P #### [facility] [address] [place] [address] Dr. Garland Kohli Eosinophils/100 WBC (Bld) 0.4 % Critically low 0.9-7.0 [facility] Comment on above: Performed By: #### G TT3P #### [facility] [address] [place] [address] Dr. Garland Kohli Erythrocyte distribution width (RBC) [Ratio] 12.9 % Normal 11.0-15.0 [facility] Comment on above: Performed By: #### G TT3P #### [facility] [address] [place] [address] Dr. Garland Kohli Hematocrit (Bld) [Volume fraction] 32.5 % Critically low 36.0-48.0 [facility] Comment on above: Performed By: #### G TT3P #### [facility] [address] [place] [address] Dr. Garland Kohli Hemoglobin (Bld) [Mass/Vol] 11.2 g/dL Critically low 12.0-16.0 [facility] Comment on above: Performed By: #### G TT3P #### [facility] [address] [place] [address] Dr. Garland Kohli IG # 0.07 10e3/ul Critically high 0.00-0.03 [facility] Comment on above: Performed By: #### G TT3P #### [facility] [address] [place] [address] Dr. Garland Kohli IG % 0.8 % Critically high 0.0-0.5 [facility] Comment on above: Performed By: #### G TT3P #### [facility] [address] [place] [address] Dr. Garland Kohli LYMPH # 0.9 103/ul Critically low 1.2-3.8 [facility] Comment on above: Performed By: #### G TT3P #### [facility] [address] [place] [address] Dr. Garland Kohli Lymphocytes/100 WBC (Bld) 10.4 % Critically low 20.5-60.0 [facility] Comment on above: Performed By: #### G TT3P #### [facility] [address] [place] [address] Dr. Garland Kohli MANUAL DIFF REQ NO Normal [facility] Comment on above: Performed By: #### G TT3P #### [facility] [address] [place] [address] Dr. Garland Kohli MCH (RBC) [Entitic mass] 31.4 pg Normal 26.7-34.0 [facility] Comment on above: Performed By: #### G TT3P #### [facility] [address] [place] [address] Dr. Garland Kohli MCHC (RBC) [Mass/Vol] 34.5 g/dL Normal 29.9-35.2 [facility] Comment on above: Performed By: #### G TT3P #### [facility] [address] [place] [address] Dr. Garland Kohli MCV (RBC) [Entitic vol] 91.0 fL Normal 81.0-99.0 [facility] Comment on above: Performed By: #### G TT3P #### [facility] [address] [place] [address] Dr. Garland Kohli MONO # 1.1 103/ul Critically high 0.3-0.8 [facility] Comment on above: Performed By: #### G TT3P #### [facility] [address] [place] [address] Dr. Garland Kohli Monocytes/100 WBC (Bld) 12.5 % Critically high 1.7-12.0 [facility] Comment on above: Performed By: #### G TT3P #### [facility] [address] [place] [address] Dr. Garland Kohli NEUT # 6.3 103/ul Normal 1.4-6.5 [facility] Comment on above: Performed By: #### G TT3P #### [facility] [address] [place] [address] Dr. Garland Kohli Neutrophils/100 WBC (Bld) 75.7 % Critically high 43.0-75.0 [facility] Comment on above: Performed By: #### G TT3P #### [facility] [address] [place] [address] Dr. Garland Kohli Platelet mean volume (Bld) [Entitic vol] 10.5 fL Normal 9.5-13.5 [facility] Comment on above: Performed By: #### G TT3P #### [facility] [address] [place] [address] Dr. Garland Kohli PLT 181 103/ul Normal 150-450 [facility] Comment on above: Performed By: #### G TT3P #### [facility] [address] [address] [address] Garland Kohli RBC 3.57 106/ul Critically low 4.20-5.40 [facility] Comment on above: Performed By: #### G TT3P #### [facility] [address] [place] [address] Dr. Garland Kohli WBC 8.4 103/ul Normal 4.0-11.0 [facility] Comment on above: Performed By: #### G TT3P #### [facility] [address] [place] [address] Dr. Garland Kohli CTA CHEST WO W [...] DEANNA LINN Date: 2022-04-04 15:25 Normal [facility] PROF CHEM 8 (BAS METB)on Anion gap [Moles/Vol] 13.2 mmol/L Normal [facility] Comment on above: Performed By: #### G TT3P #### [facility] [address] [place] [address] Dr. Garland Kohli Calcium [Mass/Vol] 8.5 mg/dL Normal 8.5-10.1 [facility] Comment on above: Performed By: #### G TT3P #### [facility] [address] [place] [address] Dr. Garland Kohli Chloride [Moles/Vol] 103 mmol/L Normal 98-107 [facility] Comment on above: Performed By: #### G TT3P #### [facility] [address] [place] [address] Dr. Garland Kohli CO2 [Moles/Vol] 23.4 mmol/L Normal 21.0-32.0 [facility] Comment on above: Performed By: #### G TT3P #### [facility] [address] [place] [address] Dr. Garland Kohli Creatinine [Mass/Vol] 0.43 mg/dL Critically low 0.55-1.02 [facility] Comment on above: Performed By: #### G TT3P #### [facility] [address] [place] [address] Dr. Garland Kohli EGFR-AF MALAYSIAN >60 Normal >=60 [facility] Comment on above: Performed By: #### G TT3P #### [facility] [address] [place] [address] Dr. Garland Kohli EGFR-NON AF MALAYSIAN >60 Normal >=60 [facility] Comment on above: Performed By: #### G TT3P #### [facility] [address] [place] [address] Dr. Garland Kohli Glucose [Mass/Vol] 108 mg/dL Critically high 74-106 [facility] Comment on above: Performed By: #### G TT3P #### [facility] [address] [place] [address] Dr. Garland Kohli Potassium [Moles/Vol] 3.6 mmol/L Normal 3.5-5.1 [facility] Comment on above: Performed By: #### G TT3P #### [facility] [address] [place] [address] Dr. Garland Kohli Sodium [Moles/Vol] 136 mmol/L Normal 136-145 [facility] Comment on above: Performed By: #### G TT3P #### [facility] [address] [place] [address] Dr. Garland Kohli Urea nitrogen [Mass/Vol] 5.0 mg/dL Critically low 7.0-18.0 [facility] Comment on above: Performed By: #### G TT3P #### [facility] [address] [place] [address] Dr. Garland Kohli Urea nitrogen/Creatinine [Mass ratio] 11.6 mg/mg Normal [facility] Comment on above: Performed By: #### G TT3P #### [facility] [address] [place] [address] Dr. Garland Kohli TROPONIN, HIGH SENSITIVITYon 04-04-2022 HSTROP 9.3 pg/mL Normal 4.0-51.3 [facility] Comment on above: Result Comment: CUT- OFF POINTS HAVE BEEN ESTABLISHED BASED ON THE FOURTH UNIVERSAL DEFINITIONS OF MYOCARDIAL INFARCTION. THE UPPER REFERENCE LIMIT (URL) OF TROPONIN, DEFINED THE 99TH PERCENTILE OF cTnI DISTRIBUTION IN A REFERENCE POPULATION, HAS BEEN CONFIRMED THE DECISION THRESHOLD FOR CA DIAGNOSIS. Performed By: #### G TT3P #### [facility] [address] [place] [address] Dr. Garland Kohli CBC AUTO DIFFon 03-26-2022 BASO # 0.0 103/ul Normal 0.0-0.1 [facility] Comment on above: Performed By: #### G TT3P #### [facility] [address] [place] [address] Dr. Garland Kohli Basophils/100 WBC (Bld) 0.2 % Normal 0.2-2.0 [facility] Comment on above: Performed By: #### G TT3P #### [facility] [address] [place] [address] Dr. Garland Kohli EO # 0.1 103/ul Normal 0.0-0.7 [facility] Comment on above: Performed By: #### G TT3P #### [facility] [address] [place] [address] Dr. Garland Kohli Eosinophils/100 WBC (Bld) 1.0 % Normal 0.9-7.0 [facility] Comment on above: Performed By: #### G TT3P #### [facility] [address] [place] [address] Dr. Garland Kohli Erythrocyte distribution width (RBC) [Ratio] 12.8 % Normal 11.0-15.0 [facility] Comment on above: Performed By: #### G TT3P #### [facility] [address] [place] [address] Dr. Garland Kohli Hematocrit (Bld) [Volume fraction] 36.2 % Normal 36.0-48.0 [facility] Comment on above: Performed By: #### G TT3P #### [facility] [address] [place] [address] Dr. Garland Kohli Hemoglobin (Bld) [Mass/Vol] 12.2 g/dL Normal 12.0-16.0 [facility] Comment on above: Performed By: #### G TT3P #### [facility] [address] [place] [address] Dr. Garland Kohli IG # 0.08 10e3/ul Critically high 0.00-0.03 [facility] Comment on above: Performed By: #### G TT3P #### [facility] [address] [place] [address] Dr. Garland Kohli IG % 0.9 % Critically high 0.0-0.5 [facility] Comment on above: Performed By: #### G TT3P #### [facility] [address] [place] [address] Dr. Garland Kohli LYMPH # 1.7 103/ul Normal 1.2-3.8 [facility] Comment on above: Performed By: #### G TT3P #### [facility] [address] [place] [address] Dr. Garland Kohli Lymphocytes/100 WBC (Bld) 17.8 % Critically low 20.5-60.0 [facility] Comment on above: Performed By: #### G TT3P #### [facility] [address] [place] [address] Dr. Garland Kohli MANUAL DIFF REQ NO Normal [facility] Comment on above: Performed By: #### G TT3P #### [facility] [address] [place] [address] Dr. Garland Kohli MCH (RBC) [Entitic mass] 30.7 pg Normal 26.7-34.0 [facility] Comment on above: Performed By: #### G TT3P #### [facility] [address] [place] [address] Dr. Garland Kohli MCHC (RBC) [Mass/Vol] 33.7 g/dL Normal 29.9-35.2 [facility] Comment on above: Performed By: #### G TT3P #### [facility] [address] [place] [address] Dr. Garland Kohli MCV (RBC) [Entitic vol] 91.2 fL Normal 81.0-99.0 [facility] Comment on above: Performed By: #### G TT3P #### [facility] [address] [place] [address] Dr. Garland Kohli MONO # 0.6 103/ul Normal 0.3-0.8 [facility] Comment on above: Performed By: #### G TT3P #### [facility] [address] [place] [address] Dr. Garland Kohli Monocytes/100 WBC (Bld) 6.0 % Normal 1.7-12.0 [facility] Comment on above: Performed By: #### G TT3P #### [facility] [address] [place] [address] Dr. Garland Kohli NEUT # 6.9 103/ul Critically high 1.4-6.5 [facility] Comment on above: Performed By: #### G TT3P #### [facility] [address] [place] [address] Dr. Garland Kohli Neutrophils/100 WBC (Bld) 74.1 % Normal 43.0-75.0 [facility] Comment on above: Performed By: #### G TT3P #### [facility] [address] [place] [address] Dr. Garland Kohli Platelet mean volume (Bld) [Entitic vol] 10.2 fL Normal 9.5-13.5 [facility] Comment on above: Performed By: #### G TT3P #### [facility] [address] [address] [address] Garland Kohli PLT 217 103/ul Normal 150-450 [facility] Comment on above: Performed By: #### G TT3P #### [facility] [address] [address] [address] Garland Kohli RBC 3.97 106/ul Critically low 4.20-5.40 [facility] Comment on above: Performed By: #### G TT3P #### [facility] [address] [address] [address] Garland Kohli WBC 9.3 103/ul Normal 4.0-11.0 [facility] Comment on above: Performed By: #### G TT3P #### [facility] [address] [place] [address] Dr. Garland Kohli GLUCOSE - 1HRon 03-26-2022 Glucose [Mass/Vol] 155 mg/dL Critically high 74-106 [facility] Comment on above: Performed By: #### C BC #### [facility] [address] [place] [address] Dr. Garland Kohli US PREG ANATOMY SINGLEon [...] YAAKOV TERAN Date: 2022-02-09 19:30 Normal [facility] AFP MATERNAL FOR SPINA BIFID Aon 01-29-2022 AFP MoM 0.76 Normal [facility] Comment on above: Performed By: #### G TT3P #### [facility] [address] [address] [address] Garland Kohli AFP Value 35.4 ng/mL Normal [facility] Comment on above: Performed By: #### G TT3P #### [facility] [address] [address] [address] Garland Kohli AFP, Serum for Spina Bifida Report Normal [facility] Comment on above: Performed By: #### G TT3P #### [facility] [address] [address] [address] Garland Kohli Comment Comment Normal [facility] Comment on above: Result Comment: Stanley Almodovar, Ph.D., [facility] Director . References: Available Upon Request. . Multiples Of Median Cutoffs For AFP Elevations Mark 2.5 Black 2.8 IDD 2.0 Twins 4.5 Abbreviation Definitions IDD - Insulin Dep Diabetes OSBR - Open Spina Bifida Risk . For further inquiries contact [facility] [employer] at [phone]. . This test was developed and its performance characteristics determined by [employer]. It has not been cleared or approved by the Food and Drug Administration. Performed By: #### G TT3P #### [facility] [address] [address] [address] Garland Izquierdo Age Collection Date 18.1 weeks Normal [facility] Comment on above: Performed By: #### G TT3P #### [facility] [address] [address] [address] Garland Kohli Gestat, Age Based on Ultrasound Normal [facility] Comment on above: Result Comment: 09:4 on 11/26/2021 Recalculations are not recommended when gestational dating by LMP and ultrasound are within 10 days. Performed By: #### G TT3P #### [facility] [address] [address] [address] Garland Kohli Insulin Dep Diabetes No Normal [facility] Comment on above: Performed By: #### G TT3P #### [facility] [address] [address] [address] Garland Kohli Interpretation Comment Normal [facility] Comment on above: Result Comment: Inte [...] Customer Services to discuss available options. The [employer] recommends amniocentesis be offered to women age 35 and older. Performed By: #### G TT3P #### [facility] [address] [place] [address] Dr. Garland Kohli [age] Normal [facility] Comment on above: Performed By: #### G TT3P #### [facility] [address] [place] [address] Dr. Garland Kohli Multiple Gestation No Normal [facility] Comment on above: Performed By: #### G TT3P #### [facility] [address] [place] [address] Dr. Garland Kohli [place] [id number] [facility] Comment on above: Performed By: #### G TT3P #### [facility] [address] [place] [address] Dr. Garland Kohli PDF . Normal [facility] Comment on above: Performed By: #### G TT3P #### [facility] [address] [place] [address] Dr. Garland Kohli Race [facility] Comment on above: Performed By: #### G TT3P #### [facility] [address] [place] [address] Dr. Garland Kohli Test Results: Negative [facility] Comment on above: Performed By: #### G TT3P #### [facility] [address] [place] [address] Dr. Garland Kohli PAP ACOG PANEL 2: 21 to 29on 01-23-2022 . . [facility] Comment on above: Performed By: #### [id number] #### [facility] [address] [place] [address] Dr. Garland Kohli Age Gdln ACOG Testing [facility] Comment on above: Performed By: #### [id number] #### [facility] [address] [place] [address] Dr. Garland Kohli DIAGNOSIS: Comment [facility] Comment on above: Result Comment: NEGA TIVE FOR INTRAEPITHELIAL LESION OR MALIGNANCY. Performed By: #### [id number] #### [facility] [address] [place] [address] Dr. Garland Kohli Methodology: Comment [facility] Comment on above: Result Comment: This liquid based ThinPrep(R) pap test was screened with the use of an image guided system. Performed By: #### [id number] #### [facility] [address] [place] [address] Dr. Garalnd Kohli Note: Comment [facility] Comment on above: Result Comment: The Pap smear is a screening test designed to aid in the detection of premalignant and malignant conditions of the uterine cervix. It is not a diagnostic procedure and should not be used as the sole means of detecting cervical cancer. Both false-positive and false-negative reports do occur. . Performed By: #### [id number] #### [facility] [address] [place] [address] Dr. Garland Kohli Performed by: Comment [facility] Comment on above: Result Comment: Kelly Arreguin, Optoelectronics Engineer (ASCP) Performed By: #### [id number] #### [facility] [address] [place] [address] Dr. Garland Kohli Reflex Criteria: Comment Normal [facility] Comment on above: Result Comment: The HPV DNA reflex criteria were not met with this specimen result therefore, no HPV testing was performed. . Performed By: #### [id number] #### [facility] [address] [place] [address] Dr. Garland Kohli Specimen adequacy: Comment Normal [facility] Comment on above: Result Comment: Sati sfactory for evaluation. No endocervical component is identified. Performed By: #### [id number] #### [facility] [address] [place] [address] Dr. Garland Kohli CHLAMYDIA/GONOCOCCUS JUAN (SW AB/URINE/PAPon 01-20-2022 Chlamydia trachomatis, JUAN Negative Normal Negative [facility] [place] [facility] Comment on above: Performed By: #### C BC #### [facility] [address] [place] [address] Dr. Garland Kohli Neisseria gonorrhoeae, JUAN Negative Normal Negative [facility] [place] [facility] Comment on above: Performed By: #### C BC #### [facility] [address] [place] [address] Dr. Garland Kohli TSHon 01-04-2022 TSH 1.707 uIU/mL Normal 0.358-3.740 [facility] [place] [facility] Comment on above: Performed By: #### G TT3P #### [facility] [address] [place] [address] Dr. Garland Kolhi HEPATITIS C VIRUS AB W/ REFL EX QUANTon 12-17-2021 HCV AB <0.1 Normal 0.0-0.9 [facility] [place] [facility] Comment on above: Performed By: #### G TT3P #### [facility] [address] [place] [address] Dr. Garland Kohli Interpretation: Comment Normal [facility] Comment on above: Result Comment: Nega tive Not infected with HCV, unless recent infection is suspected or other evidence exists to indicate HCV infection. Performed By: #### G TT3P #### [facility] [address] [place] [address] Dr. Garland Kohli CULTURE URINEon 12-15-2021 CULTURE URINE Culture Observations : GREATER THAN TWO ORGANISMS PRESENT. PLEASE RESUBMIT CLEAN CATCH MID-STREAM URINE IF CLINICALLY INDICATED. Normal [facility] Comment on above: Performed By: #### U RCX #### [facility] [address] [place] [address] Dr. Garland Kohli HEP B SURFACE ANTIGEN SCREEN on 12-15-2021 HBsAg Screen Negative Normal Negative [facility] Comment on above: Performed By: #### H BSANS #### [facility] [address] [place] [address] Dr. Garland Kohli HIV 1 AND 2 WITH REFLEXon HIV Screen 4th Generation wRfx Non-Reactive Normal Non Reactive [facility] Comment on above: Result Comment: HIV Negative HIV-1/HIV-2 antibodies and HIV-1 p24 antigen were NOT detected. There is no laboratory evidence of HIV infection. Performed By: #### H IV12 #### [facility] [address] [place] [address] Dr. Garland Kohli RPR QUANTon 12-15-2021 Rapid Plasma Reagin, Quant Non-Reactive Normal NonRea<1:1 [facility] [place] [facility] Comment on above: Result Comment: Plea se Note: This test does not meet current guidelines for screening and diagnosis of syphilis. This test is intended for following treatment response in patients being treated for syphilis infection. To screen for syphilis infection, a reflex cascade that includes both RPR and a treponema-specific assay should be utilized, such as Treponema pallidum (Syphilis) Screening [facility] (753958) or Rapid Plasma Reagin (RPR) Test With Reflex to Quantitative RPR and Confirmatory Treponema pallidum Antibodies (058861). Performed By: #### G TT3P #### [facility] [address] [place] [address] Dr. Garland Kohli RUBELLA AB IGGon 12-15-2021 Rubella Antibodies, IgG 4.72 index Normal Immune >0.99 [facility] [place] [facility] Comment on above: Result Comment: Non- immune <0.90 Equivocal 0.90 - 0.99 Immune >0.99 Performed By: #### G TT3P #### [facility] [address] [address] [address] Garland Kohli CBC AUTO DIFFon 12-14-2021 BASO # 0.0 103/ul Normal 0.0-0.1 [facility] [place] [facility] Comment on above: Performed By: #### C BC #### [facility] [address] [address] [address] Garland Kohli Basophils/100 WBC (Bld) 0.3 % Normal 0.2-2.0 [facility] [place] [facility] Comment on above: Performed By: #### C BC #### [facility] [address] [place] [address] Dr. Garland Kohli EO # 0.1 103/ul Normal 0.0-0.7 [facility] [place] [facility] Comment on above: Performed By: #### C BC #### [facility] [address] [place] [address] Dr. Garland Kohli Eosinophils/100 WBC (Bld) 0.8 % Critically low 0.9-7.0 [facility] [place] [facility] Comment on above: Performed By: #### C BC #### [facility] [address] [place] [address] Dr. Garland Kohli Erythrocyte distribution width (RBC) [Ratio] 12.6 % Normal 11.0-15.0 [facility] [place] [facility] Comment on above: Performed By: #### C BC #### [facility] [address] [place] [address] Dr. Garland Kohli Hematocrit (Bld) [Volume fraction] 34.3 % Critically low 36.0-48.0 [facility] [place] [facility] Comment on above: Performed By: #### C BC #### [facility] [address] [place] [address] Dr. Garland Kohli Hemoglobin (Bld) [Mass/Vol] 11.7 g/dL Critically low 12.0-16.0 [facility] [place] [facility] Comment on above: Performed By: #### C BC #### [facility] [address] [place] [address] Dr. Garland Kohli IG # 0.03 10e3/ul Normal 0.00-0.03 [facility] [place] [facility] Comment on above: Performed By: #### C BC #### [facility] [address] [place] [address] Dr. Garland Kohli IG % 0.4 % Normal 0.0-0.5 [facility] [place] [facility] Comment on above: Performed By: #### C BC #### [facility] [address] [place] [address] Dr. Garland Kohli LYMPH # 1.5 103/ul Normal 1.2-3.8 [facility] [place] [facility] Comment on above: Performed By: #### C BC #### [facility] [address] [place] [address] Dr. Garland Kohli Lymphocytes/100 WBC (Bld) 21.1 % Normal 20.5-60.0 [facility] [place] [facility] Comment on above: Performed By: #### C BC #### [facility] [address] [place] [address] Dr. Garland Kohli MANUAL DIFF REQ NO Normal [facility] Comment on above: Performed By: #### C BC #### [facility] [address] [place] [address] Dr. Garland Kohli MCH (RBC) [Entitic mass] 30.5 pg Normal 26.7-34.0 [facility] [place] [facility] Comment on above: Performed By: #### C BC #### [facility] [address] [place] [address] Dr. Garland Kohli MCHC (RBC) [Mass/Vol] 34.1 g/dL Normal 29.9-35.2 [facility] [place] [facility] Comment on above: Performed By: #### C BC #### [facility] [address] [place] [address] Dr. Garland Kohli MCV (RBC) [Entitic vol] 89.6 fL Normal 81.0-99.0 [facility] [place] [facility] Comment on above: Performed By: #### C BC #### [facility] [address] [place] [address] Dr. Garland Kohli MONO # 0.5 103/ul Normal 0.3-0.8 [facility] [place] [facility] Comment on above: Performed By: #### C BC #### [facility] [address] [address] [address] Garland Kohli Monocytes/100 WBC (Bld) 7.1 % Normal 1.7-12.0 [facility] [place] [facility] Comment on above: Performed By: #### C BC #### [facility] [address] [address] [address] Garland Kohli NEUT # 5.0 103/ul Normal 1.4-6.5 [facility] [place] [facility] Comment on above: Performed By: #### C BC #### [facility] [address] [address] [address] Garland Kohli Neutrophils/100 WBC (Bld) 70.3 % Normal 43.0-75.0 [facility] [place] [facility] Comment on above: Performed By: #### C BC #### [facility] [address] [place] [address] Dr. Garland Kohli Platelet mean volume (Bld) [Entitic vol] 10.1 fL Normal 9.5-13.5 [facility] [place] [facility] Comment on above: Performed By: #### C BC #### [facility] [address] [place] [address] Dr. Garland Kohli PLT 234 103/ul Normal 150-450 [facility] [place] [facility] Comment on above: Performed By: #### C BC #### [facility] [address] [place] [address] Dr. Garland Kohli RBC 3.83 106/ul Critically low 4.20-5.40 [facility] Comment on above: Performed By: #### C BC #### [facility] [address] [place] [address] Dr. Garland Kohli WBC 7.1 103/ul Normal 4.0-11.0 [facility] [place] [facility] Comment on above: Performed By: #### C BC #### [facility] [address] [place] [address] Dr. Garland Kohli GLYCOHEMOGLOBIN A1Con 2021 ADA RECOMMENDATION SEE BELOW Normal [facility] Comment on above: Result Comment: ADA RECOMMENDED LIMIT 4.0 - 6.0 ADA THERAPEUTIC TARGET < 7.0 ACTION SUGGESTED > 7.0 Performed By: #### A 1C #### [facility] [address] [address] [address] Garland Kohli Glucose [Mass/Vol] 103 mg/dL Normal [facility] Comment on above: Performed By: #### A 1C #### [facility] [address] [address] [address] Garland Kohli HbA1c (Bld) [Mass fraction] 5.2 % Normal 4.5-6.2 [facility] [place] [facility] Comment on above: Performed By: #### A 1C #### [facility] [address] [address] [address] Garland Kohli MARTÍNEZ BOX TEST PT SEND OUTo n 12-14-2021 SENT TO REF LAB 12/14/21 Normal [facility] Comment on above: Performed By: #### G TT3P #### [facility] [address] [place] [address] Dr. Garland Kohli TYPE AND SCREENon 12-14-2021 TYPE AND SCREEN Negative Normal [facility] Comment on above: Performed By: #### C BC #### [facility] [address] [place] [address] Dr. Garland Kohli US PREG TVon 11-26-2021 [...] by: YAAKOV TERAN Date: 2021-11-26 18:36 Normal [facility] OPERATIVE REPORTon 9 OPERATIVE REPORT [facility] [address] [place] [id number] OPERATIVE REPORT PATIENT NAME: CECELIA JOHNSON : 1995 MED REC NO: [id number] ROOM: ACCOUNT NO: [id number] ADMIT DATE: 11/24/2018 PROVIDER: Mode Renee DATE [...] infiltrated into the drains, this was for residential pain control. Steri-Strips applied throughout and then bulky gauze dressing as well as surgical bra was applied. The patient was awoken, extubated, and transported to the recovery room in stable condition. Sponge, needle, and instrument counts were reported correct x2 at the end of the case. MODE RENEE /Natalio_OPSAJ_T Doc#: [id number] CC: Carlos Alberto Coleman [facility] Surgical Pathologyon 019 Surgical Pathology (NOTE) [id number] [facility] [address] [place], [place] [id number] SURGICAL PATHOLOGY REPORT Patient Name: CECELIA JOHNSON MR#: [id number] Specimen #[id number] Final Diagnosis SPECIMEN A : BREAST AND [...] The entire specimen weighs 453 grams. Multiple employee's representative sections are submitted in five cassettes [...] also sampled in multiple different areas and employee's representative sections are submitted in five cassettes for microscopic examination. Microscopic Description Specimen A : Five RICHARD glass slides are received. Microscopic examination is performed. Specimen B : Five RICHARD glass slides are received. Microscopic examination is performed. Normal [facility] Comment on above: Performed By: #### P PPES #### [facility] [address] [place] [address] Kennel Supervisor: Victor Manuel Hunter DO CNOVSColton 11-18-2018 CNOVSP Visit (SP) Office ([place]) CECELIA JOHNSON ([id number]) 1995 F Date Time Provider Department 11/18/18 1:00 PM JAZ MOULTON) KATHARINE During your visit today, we recorded the following information about you: Temperature Pulse Respiration Blood pressure 97.9 degrees 82/minute 18/minute 122/78 Weight Height Last Period 82.7 kg 1.6 m 10/15/18 Jaz Moulton MD 11/18/2018 3:08 PM Signed PATIENT NAME: Cecelia Johnson CLINIC NO.: [id number] ATTENDING PHYSICIAN: Jaz Moulton MD DATE OF [...] file Gets together: Not on file Attends moravian service: Not on file Active member of [...] Jaz Moulton M.D. Hematology/Medical Oncology [facility] [phone] CC: Carlos Alberto Coleman MD - (Inactive), In Basket (Inactive) - User (Inactive) [address] [place] [phone] (Ph) Mode Renee MD Referring Provider: SELF [...] Nathan - Fully Assessed Visit Diagnosis:MTHFR mutation ([facility]) [E72.12] Prescriptions as of 11/18/2018 Sig: ACETAMINOPHEN [...] Of Date 11/18/2018 Noted Resolved MTHFR mutation ([facility]) [E72.12] INVALID FOR* Encounter Status:Closed by JAZ MOULTON MD on 11/18/18 [facility]ESS[facility] 11-18-2018 PROGRESS HNO ID: [id number] Author: Jaz Hill) Kenney Service: ? Author Type: Physician Type: Progress Notes Filed: 11/18/2018 3:08 PM Note Text: PATIENT NAME: Cecelia Johnson CLINIC NO.: [id number] ATTENDING PHYSICIAN: Jaz Moulton MD DATE OF [...] file Gets together: Not on file Attends moravian service: Not on file Active member of [...] number below. Jaz Moulton M.D. Hematology/Medical Oncology [address] [place] [phone] CC: Carlos Alberto Coleman MD - (Inactive), In Basket (Inactive) - User (Inactive) [address] [facility] [phone] () Mode Renee MD Normal [facility] Basic Metabolic Profon 11-10 (cont.) Normal [facility] Comment on above: Result Comment: Aver age GFR for 20-29 years old: 116 mL/min/1.73sq m Chronic Kidney Disease: <60 mL/min/1.73sq m Kidney failure: <15 mL/min/1.73sq m eGFR calculated using average adult body mass. Additional eGFR calculator available at: http://www.Retailigence.Page2Images/multiple_crcl_2011.htm Performed By: #### C FARAZ, BMP #### [facility] [address] [facility] [place] [address] Kennel Supervisor: Victor Maunel Hunter DO Anion gap [Moles/Vol] 11 mmol/L Normal 9-17 [facility] Comment on above: Performed By: #### C FARAZ, BMP #### [facility] [address] [facility] [place], [place] [id number] Kennel Supervisor: Victor Manuel Hunter DO Calcium [Mass/Vol] 9.7 mg/dL Normal 8.6-10.4 [facility] Comment on above: Performed By: #### C DP, BMP #### [facility] [address] [place] [address] Kennel Supervisor: Victor Manuel Hunter DO Chloride [Moles/Vol] 102 mmol/L Normal 98-107 [facility] Comment on above: Performed By: #### C DP, BMP #### [facility] [address] [place] [address] Kennel Supervisor: Victor Manuel Hunter DO CO2 [Moles/Vol] 26 mmol/L Normal 20-31 [facility] Comment on above: Performed By: #### C DP, BMP #### [facility] [place] [address] Kennel Supervisor: Victor Manuel Hunter DO Creatinine [Mass/Vol] 0.49 mg/dL Low 0.50-0.90 [facility] Comment on above: Performed By: #### C DP, BMP #### [facility] [place] [address] Kennel Supervisor: Victor Manuel Hunter DO GFR, Amer >60 Normal >60 [facility] Comment on above: Performed By: #### C DP, BMP #### [facility] [place] [address] Kennel Supervisor: Victor Manuel Hunter DO GFR,non Amer >60 Normal >60 [facility] Comment on above: Performed By: #### C DP, BMP #### [facility] [address] [place], [place] [address] [place] [address] Kennel Supervisor: Victor Manuel Hunter DO Glucose [Mass/Vol] 88 mg/dL Normal 70-99 [facility] Comment on above: Performed By: #### C DP, BMP #### [facility] [address] [place] [address] Kennel Supervisor: Victor Manuel Hunter DO Potassium [Moles/Vol] 4.3 mmol/L Normal 3.7-5.3 [facility] Comment on above: Performed By: #### C DP, BMP #### [facility] [place] [address] Kennel Supervisor: Victor Manuel Hunter DO Sodium [Moles/Vol] 139 mmol/L Normal 135-144 [facility] Comment on above: Performed By: #### C DP, BMP #### [facility] [address] [place] [address] Kennel Supervisor: Victor Manuel Hunter DO Urea nitrogen [Mass/Vol] 8 mg/dL Normal 6-20 [facility] Comment on above: Performed By: #### C FARAZ, BMP #### [facility] [address] [place] [address] Kennel Supervisor: Victor Manuel Hunter DO BUN/CRE Ratio NOT REPORTED Normal 9-20 [facility] Comment on above: Performed By: #### C FARAZ, BMP #### [facility] [place] [address] Kennel Supervisor: Victor Manuel Hunter DO Staging: NOT REPORTED Normal [facility] Comment on above: Performed By: #### C DP, BMP #### [facility] [place] [address] Kennel Supervisor: Victor Manuel Hunter DO CBC with Diffon 11-10-2018 Abs. Basophil 0.00 k/uL Normal 0.0-0.2 [facility] Comment on above: Performed By: #### C DP, BMP #### [facility] [place] [address] Kennel Supervisor: Victor Manuel Hunter DO Abs.Neutrophil (Seg) 3.00 k/uL Normal 1.3-9.1 [facility] Comment on above: Performed By: #### C DP, BMP #### [facility] [address] [place] [address] Kennel Supervisor: Victor Manuel Hunter DO Basophils/100 WBC (Bld) 0 % Normal 0-2 [facility] Comment on above: Performed By: #### C DP, BMP #### [facility] [place] [address] Kennel Supervisor: Victor Manuel Hunter DO Eosinophils (Bld) [#/Vol] 0.10 10*3/uL Normal 0.0-0.4 [facility] Comment on above: Performed By: #### C DP, BMP #### [facility] [address] [place], [place] [address] [place] [address] Kennel Supervisor: Victor Manuel Hunter DO Eosinophils/100 WBC (Bld) 1 % Normal 0-4 [facility] Comment on above: Performed By: #### C FARAZ, BMP #### [facility] [place] [address] Kennel Supervisor: Victor Manuel Hunter DO Erythrocyte distribution width (RBC) [Ratio] 12.7 % Normal 11.5-14.9 [facility] Comment on above: Performed By: #### C DP, BMP #### [facility] [place] [address] Kennel Supervisor: Victor Manuel Hunter DO Hematocrit (Bld) [Volume fraction] 42.3 % Normal 36-46 [facility] Comment on above: Performed By: #### C DP, BMP #### [facility] [place] [address] Kennel Supervisor: Victor Manuel Hunter DO Hemoglobin (Bld) [Mass/Vol] 14.3 g/dL Normal 12.0-16.0 [facility] Comment on above: Performed By: #### C DP, BMP #### [facility] [place] [address] Kennel Supervisor: Victor Manuel Hunter DO Lymphocytes (Bld) [#/Vol] 1.70 10*3/uL Normal 1.0-4.8 [facility] Comment on above: Performed By: #### C DP, BMP #### [facility] [address] [place] [address] Kennel Supervisor: Victor Manuel Hunter DO Lymphocytes/100 WBC (Bld) 32 % Normal 24-44 [facility] Comment on above: Performed By: #### C FARAZ, BMP #### [facility] [address] [place] [address] Kennel Supervisor: Victor Manuel Hunter DO MCH (RBC) [Entitic mass] 30.0 pg Normal 26-34 [facility] Comment on above: Performed By: #### C FARAZ, BMP #### [facility] [address] [place] [address] Kennel Supervisor: Victor Manuel Hunter DO MCHC (RBC) [Mass/Vol] 33.7 g/dL Normal 31-37 [facility] Comment on above: Performed By: #### C DP, BMP #### [facility] [address] [place] [address] Kennel Supervisor: Victor Manuel Hunter DO MCV (RBC) [Entitic vol] 89.0 fL Normal 80-100 [facility] Comment on above: Performed By: #### C DP, BMP #### [facility] [address] [place] [address] Kennel Supervisor: Victor Manuel Hunter DO Monocytes (Bld) [#/Vol] 0.60 10*3/uL Normal 0.1-1.3 [facility] Comment on above: Performed By: #### C DP, BMP #### [facility] [address] [place] [address] Kennel Supervisor: Victor Manuel Hunter DO Monocytes/100 WBC (Bld) 11 % High 1-7 [facility] Comment on above: Performed By: #### C DP, BMP #### [facility] [place] [address] Kennel Supervisor: Victor Manuel Hunter DO Neutrophil (Seg) 56 % Normal 36-66 [facility] Comment on above: Performed By: #### C DP, BMP #### [facility] [place] [address] Kennel Supervisor: Victor Manuel Hunter DO Platelet mean volume (Bld) [Entitic vol] 9.4 fL Normal 6.0-12.0 [facility] Comment on above: Performed By: #### C FARAZ, BMP #### [facility] [address] [place] [address] Kennel Supervisor: Victor Manuel Hunter DO Platelets (Bld) [#/Vol] 252 10*3/uL Normal 150-450 [facility] [place] Comment on above: Performed By: #### C DP, BMP #### [facility] [place] [address] Kennel Supervisor: Victor Manuel Hunter DO RBC (Bld) [#/Vol] 4.75 10*6/uL Normal 4.0-5.2 [facility] Comment on above: Performed By: #### C DP, BMP #### [facility] [place] [address] Kennel Supervisor: Victor Manuel Hunter DO WBC (Bld) [#/Vol] 5.3 10*3/uL Normal 3.5-11.0 [facility] Comment on above: Performed By: #### C DP, BMP #### [facility] [place] [address] Kennel Supervisor: Victor Manuel Hunter DO Abs.Imm.Granulocyte NOT REPORTED Normal 0.00-0.30 [facility] Comment on above: Performed By: #### C DP, BMP #### [facility] [address] [place] [address] Kennel Supervisor: Victor Manuel Hunter DO Auto Diff Performed NOT REPORTED Normal [facility] Comment on above: Performed By: #### C DP, BMP #### [facility] [address] [place] [address] Kennel Supervisor: Victor Manuel Hunter DO Immature granulocytes (Bld) [#/Vol] NOT REPORTED Normal 0 [facility] Comment on above: Performed By: #### C DP, BMP #### [facility] [address] [place] [address] Kennel Supervisor: Victor Manuel Hunter DO NRBC Automated NOT REPORTED Normal [facility] Comment on above: Performed By: #### C DP, BMP #### [facility] [address] [place] [address] Kennel Supervisor: Victor Manuel Hunter DO Platelets (Bld) [#/Vol] NOT REPORTED Normal [facility] Comment on above: Performed By: #### C DP, BMP #### [facility] [address] [place] [address] Kennel Supervisor: Victor Manuel Hunter DO RBC morphology finding Nom (Bld) NOT REPORTED Normal [facility] Comment on above: Performed By: #### C DP, BMP #### [facility] [address] [place] [address] Kennel Supervisor: Victor Manuel Hunter DO WBC Morphology NOT REPORTED Normal [facility] Comment on above: Performed By: #### C ROSA RUTH #### [facility] [address] [place] [address] Kennel Supervisor: Victor Manuel Hunter DO Vital Signs Date Time Vital Sign Value Performing Clinician Facility 05-09-2024 16:07-0500 Body mass index (BMI) [Ratio] 32.61 kg/m2 Tori Pepe PA Work Phone: [facility] 05-09-2024 16:07-0500 Body weight 86.18 kg Tori Talbotey PA Work Phone: [facility] 05-09-2024 16:07-0500 Diastolic blood pressure 82 mm[Hg] Tori Talbotey PA Work Phone: [facility] 05-09-2024 16:07-0500 Systolic blood pressure 120 mm[Hg] Tori Roanoke PA Work Phone: [facility] 05-03-2024 16:38-0500 Body height 162.6 cm Tori Warchol DESPATCHING AND RECEIVING CLERK Work Phone: [facility] 05-03-2024 16:38-0500 Body mass index (BMI) [Ratio] 32.3 kg/m2 Tori Warchol DESPATCHING AND RECEIVING CLERK Work Phone: [facility] 05-03-2024 16:38-0500 Body temperature 97.59 [degF] Tori Warchol DESPATCHING AND RECEIVING CLERK Work Phone: [facility] 05-03-2024 16:38-0500 Body weight 85.37 kg Tori Warchol DESPATCHING AND RECEIVING CLERK Work Phone: [facility] 05-03-2024 16:38-0500 Diastolic blood pressure 72 mm[Hg] Tori Warchol DESPATCHING AND RECEIVING CLERK Work Phone: [facility] 05-03-2024 16:38-0500 Heart rate 93 /min Tori Warchol DESPATCHING AND RECEIVING CLERK Work Phone: [facility] 05-03-2024 16:38-0500 SaO2% (BldA) [Mass fraction] 99 % Tori Kylee DESPATCHING AND RECEIVING CLERK Work Phone: [facility] 05-03-2024 16:38-0500 Systolic blood pressure 124 mm[Hg] Tori Kylee DESPATCHING AND RECEIVING CLERK Work Phone: [facility] 04-21-2024 08:49-0500 Body mass index (BMI) [Ratio] 32.06 kg/m2 Herber Nnamdi DO Work Phone: [facility] 04-21-2024 08:49-0500 Body weight 84.73 kg Herber Nnamdi DO Work Phone: [facility] 04-21-2024 08:49-0500 Diastolic blood pressure 72 mm[Hg] Herber Nnamdi DO Work Phone: [facility] 04-21-2024 08:49-0500 Systolic blood pressure 104 mm[Hg] Herber Nnamdi DO Work Phone: [facility] 04-13-2024 15:58-0500 Body mass index (BMI) [Ratio] 31.78 kg/m2 Tori Roanoke PA Work Phone: [facility] 04-13-2024 15:58-0500 Body weight 83.97 kg Tori Roanoke PA Work Phone: [facility] 04-13-2024 15:58-0500 Diastolic blood pressure 80 mm[Hg] Tori Dwight PA Work Phone: [facility] 04-13-2024 15:58-0500 Systolic blood pressure 120 mm[Hg] Tori Dwight PA Work Phone: [facility] 04-06-2024 16:29-0500 Body mass index (BMI) [Ratio] 31.65 kg/m2 Tori Dwight PA Work Phone: [facility] 04-06-2024 16:29-0500 Body weight 83.64 kg Tori Dwight PA Work Phone: [facility] 04-06-2024 16:29-0500 Diastolic blood pressure 74 mm[Hg] Tori Dwight PA Work Phone: [facility] 04-06-2024 16:29-0500 Systolic blood pressure 112 mm[Hg] Tori Pepe PA Work Phone: [facility] 03-09-2024 16:25-0500 Body mass index (BMI) [Ratio] 30.88 kg/m2 Tori Pepe PA Work Phone: [facility] 03-09-2024 16:25-0500 Body weight 81.6 kg Tori Dwight PA Work Phone: [facility] 03-09-2024 16:25-0500 Diastolic blood pressure 70 mm[Hg] Tori Pepe PA Work Phone: [facility] 03-09-2024 16:25-0500 Systolic blood pressure 114 mm[Hg] Tori Pepe PA Work Phone: [facility] 02-10-2024 14:44-0400 Body mass index (BMI) [Ratio] 29.39 kg/m2 Herber Nnamdi DO Work Phone: [facility] 02-10-2024 14:44-0400 Body weight 77.68 kg Herber Nnamdi DO Work Phone: [facility] 02-10-2024 14:44-0400 Diastolic blood pressure 68 mm[Hg] Herber Nnamdi DO Work Phone: [facility] 02-10-2024 14:44-0400 Systolic blood pressure 116 mm[Hg] Herber Nnamdi DO Work Phone: [facility] 01-11-2024 16:03-0400 Body mass index (BMI) [Ratio] 28.06 kg/m2 Herber Nnamdi DO Work Phone: [facility] 01-11-2024 16:03-0400 Body weight 74.16 kg Herber Nnamdi DO Work Phone: [facility] 01-11-2024 16:03-0400 Diastolic blood pressure 72 mm[Hg] Herber Nnamdi DO Work Phone: [facility] 01-11-2024 16:03-0400 Systolic blood pressure 118 mm[Hg] Herber Nnamdi DO Work Phone: [facility] 01-29-2022 02:06-0400 Body weight 67.[address] ZEN BREWER . [facility] Comment on above: Performed By: #### [id number] #### [facility] [address] [address] [address] Garland Kohli Encounters Encounter Date Encounter Type Care Provider Facility Start: 05-09-2024 End: 05-09-2024 flow sheet Tori SHIRLEY Work Phone: [facility] Comment on above: 32 weeks gestation o f ; Third trimester Start: 05-09-2024 End: 05-09-2024 ambulatory TORI PEPE Not Available Start: 05-09-2024 End: 05-09-2024 Bamboo flowsheet Tori Pepe PA Work Phone: [facility] Start: 05-09-2024 End: 05-09-2024 Bamboo flowsheet Tori Pepe PA Work Phone: [facility] Start: 05-03-2024 End: 05-03-2024 Office outpatient visit 25 minutes Tori Martinez DESPATCHING AND RECEIVING CLERK Work Phone: [facility] Comment on above: Need for follow-up c are after discharge (Primary Dx) Start: 05-03-2024 End: 05-03-2024 ambulatory TORI MARTINEZ Not Available Start: 05-03-2024 End: 05-03-2024 Bamboo flowsheet Tori Martinez DESPATCHING AND RECEIVING CLERK Work Phone: [facility] Start: 05-03-2024 End: 05-03-2024 Bamboo flowsheet Tori Martinez DESPATCHING AND RECEIVING CLERK Work Phone: [facility] Start: 04-21-2024 End: 04-21-2024 Bamboo flowsheet Herber Nnamdi DO Work Phone: [facility] Start: 04-21-2024 End: 04-21-2024 Bamboo flowsheet Herber Nnamdi DO Work Phone: [facility] Start: 04-21-2024 End: 04-21-2024 ambulatory HERBER NNAMDI Not Available Start: 04-21-2024 End: 04-21-2024 flow sheet Herber Nnamdi DO Work Phone: [facility] Comment on above: 30 weeks gestation o f ; Third trimester Start: 04-13-2024 End: 04-13-2024 flow sheet Tori SHIRLEY Work Phone: [facility] Comment on above: 28 weeks gestation o f ; Second trimester ; Gestational diabetes mellitus (GDM), antepartum, gestational diabetes method of control unspecified; Anxiety, generalized (CMS/HCC); Nausea; Hypothyroidism, unspecified type (CMS/HCC) Start: 04-13-2024 End: 04-13-2024 ambulatory TORI PEPE Not Available Start: 04-13-2024 End: 04-13-2024 Bamboo flowsheet Tori SHIRLEY Work Phone: [facility] Start: 04-13-2024 End: 04-13-2024 Bamboo flowsheet Tori SHIRLEY Work Phone: [facility] Start: 04-06-2024 End: 04-06-2024 ambulatory TORI PEPE Not Available Start: 04-06-2024 End: 04-06-2024 flow sheet Tori SHIRLEY Work Phone: [facility] Comment on above: Second trimester pre gnancy; 27 weeks gestation of Start: 04-06-2024 End: 04-06-2024 Bamboo flowsheet Tori SHIRLEY Work Phone: [facility] Start: 04-06-2024 End: 04-06-2024 Bamboo flowsheet Tori SHIRLEY Work Phone: [facility] Start: 03-19-2024 End: 03-19-2024 Clinisync Result Encounter Tori SHIRLEY Work Phone: [facility] External Department Unsolicited Start: 03-19-2024 End: 03-19-2024 Clinisync Result Encounter Tori SHIRLEY Work Phone: [facility] External Department Unsolicited Start: 03-09-2024 End: 03-09-2024 ambulatory TROI PEPE Not Available Start: 03-09-2024 End: 03-09-2024 flow sheet Tori SHIRLEY Work Phone: [facility] Comment on above: Encounter for follow -up ultrasound of anatomy; Second trimester ; 23 weeks gestation of ; Hypothyroidism, unspecified type (CMS/HCC); Diabetes mellitus screening; Anxiety, generalized (CMS/HCC) Start: 03-09-2024 End: 03-09-2024 Bamboo flowsheet Tori SHIRLEY Work Phone: [facility] Start: 03-09-2024 End: 03-09-2024 Bamboo flowsheet Tori SHIRLEY Work Phone: [facility] Start: 02-10-2024 End: 02-10-2024 ambulatory HERBER NNAMDI Not Available Start: 02-10-2024 End: 02-10-2024 Bamboo flowsheet Herber Nnamdi DO Work Phone: [facility] Start: 02-10-2024 End: 02-17-2024 Bamboo flowsheet Herber Nnamdi DO Work Phone: [facility] Start: 02-10-2024 End: 02-17-2024 Clinisync Result Encounter Generic External Data Provider [facility] External Department Unsolicited Start: 02-10-2024 End: 02-10-2024 Patient encounter procedure Herber Nnamdi DO Work Phone: [facility] Healthcare Start: 02-10-2024 End: 02-10-2024 Periodic preventive med est patient 18-39 yrs Herber Nnamdi DO Work Phone: [facility] Comment on above: Well [...] procedure MD Carlos Alberto Coleman Work Phone: [facility] Start: 07-13-2023 End: 07-13-2023 ambulatory MD Carlos Alberto Coleman Work Phone: [facility] Work Phone: Start: 07-13-2023 End: 07-13-2023 ambulatory SOFIE R LAUSE Not Available Start: 06-02-2023 Refill Tori Martinez DESPATCHING AND RECEIVING CLERK Work Phone: [facility] Comment on above: Attention deficit [...] without abnormal findings DR ZEN BREWER . [facility] Start: 01-17-2022 End: 01-17-[address] ZEN BREWER . Facility:[facility] Start: 01-17-2022 End: 01-17-2022 Encounter for gynecological examination (general) (routine) without abnormal findings DR ZEN BREWER . Facility:[facility] Start: 01-04-2022 End: 01-05-2022 ambulatory ÁNGEL SINHA Facility:[facility] Start: 12-14-2021 End: 12-15-[address] ZEN BREWER . Facility:[facility] Start: 11-26-2021 End: 11-27-2021 ambulatory ÁNGEL SINHA Facility:[facility] Start: 11-24-2018 End: 11-24-2018 Patient encounter procedure [facility] Start: 11-10-2018 End: 11-15-2018 Patient encounter procedure [facility] Procedures Date Procedure Procedure Detail Performing [...] dip stick/tabl et rgnt non-auto w/o micrscp Hreber Nnamdi DO Work Phone: Start: 02-10-2024 IGP,APTIMA HPV,AGE GDLN [facility] DO Work Phone: Start: 02-10-2024 Microscopic observat ion [Identifier] in Cervix by Cyto stain Tori SHIRLEY Work Phone: Start: 02-10-2024 Cytp cerv/vag auto t hin layer prep mnl screen Tori SHIRLEY Work Phone: Start: 01-22-2024 ALL THYROID STIM HORMONE [facility] DO Work Phone: Start: 01-11-2024 Urnls dip stick/tabl et rgnt non-auto w/o [facility]scp [facility] Work Phone: Start: 07-13-2023 Respiratory [...] Start: 11-24-2018 INITIATE OXYGEN THER APY PROTOCOL MDOE RENEE Start: 11-24-2018 NOTIFY PHYSICIAN (SPECIFY) MODE [...] [facility] [address] [place] [phone] Herber Coto, [address] [place] [address] [facility] Start: 05-09-2024 End: 05-09-2024 Patient encounter procedure [facility] Comment on above: Arrived Start: 05-03-2024 End: 05-03-2024 Patient encounter procedure 05/03/2024 4:40 PM EST Office Visit [facility] [address] [place] [address] Tori Martinez, DESPATCHING AND RECEIVING CLERK [address] [place] [address] Need for follow-up care after discharge (Primary Dx) [facility] Comment on above: Need for follow-up c are after discharge (Primary Dx) Start: 04-21-2024 End: 04-21-2024 Patient encounter procedure 04/21/2024 8:30 AM EST Routine [facility] [address] [phone] Herber Coto DO [address] [place] [address] [facility] Start: 04-13-2024 End: 04-13-2024 [...] Routine [facility] [address] [place] [phone] Tori Pepe, PA [address] [place] [address] [facility] Start: 04-03-2024 End: 03-04-2025 US for US OB INCOMPLETE ANATOMY Imaging Routine Encounter for follow-up ultrasound of anatomy Expected: 04/03/2024 (Approximate), Expires: 03/04/2025 [facility] Work Phone: Comment on above: Expected: 04/03/2024 (Approximate), Expires: 03/04/2025 Start: 03-09-2024 End: 03-09-2024 Patient encounter procedure 03/09/2024 3:50 PM EST Routine [facility] [address] [phone] Tori Pepe PA [address] [place] [address] [facility] Start: 03-09-2024 End: 03-09-2025 CBC panel - Blood by Automated count CBC Lab Routine Diabetes mellitus screening Expected: 03/09/2024 (Approximate), Expires: 03/09/2025 [facility] Comment on above: Expected: 03/09/2024 (Approximate), Expires: 03/09/2025 Start: 03-09-2024 End: 03-09-2025 Measurement of glucose 1 hour after glucose challenge for glucose tolerance test Glucose tolerance, 1 hour Lab Routine Diabetes mellitus screening Expected: 03/09/2024 (Approximate), Expires: 03/09/2025 [facility] Comment on above: Expected: 03/09/2024 (Approximate), Expires: 03/09/2025 Start: 03-09-2024 End: 03-09-2025 US for US OB SCAN FOR GROWTH Imaging Routine Hypothyroidism, unspecified type (CMS/HCC) Expected: 03/09/2024 (Approximate), Expires: 03/09/2025 [facility] Comment on above: Expected: 03/09/2024 (Approximate), Expires: 03/09/2025 Start: 02-10-2024 End: 02-09-2025 Alpha fetoprotein, maternal Alpha fetoprotein, maternal Lab Routine Second trimester 19 weeks gestation of Expected: 02/10/2024 (Approximate), Expires: 02/09/2025 [facility] Comment on above: Expected: 02/10/2024 (Approximate), Expires: 02/09/2025 Start: 02-10-2024 End: 02-09-2025 US for US OB ANATOMY SINGLE W US OB CERVICAL LENGTH Imaging Routine Screening, , for anatomic survey Expected: 02/10/2024 (Approximate), Expires: 02/09/2025 [facility] Comment on above: Expected: 02/10/2024 (Approximate), Expires: 02/09/2025 Start: 02-10-2024 End: 02-10-2024 Patient encounter procedure 02/10/2024 1:50 PM EDT Routine [facility] [address] [phone] Herber Coto, DO [address] [place], [place] [id number] [facility] Start: 01-11-2024 End: 01-11-2024 Patient encounter procedure 01/11/2024 3:50 PM EDT Routine [facility] [address] [phone] Herber Coto, DO [address] [place] [address] Arrived [facility] Comment on above: Arrived Start: 12-27-2023 Influenza vaccination Influenza Vacc ine (#1) [facility] Start: 10-25-2023 Influenza vaccination Influenza Vacc ine (#1) [facility] Comment on above: Postponed from 12/26 (Patient Refused) Start: 10-25-2023 Screening for malign ant neoplasm of cervix [facility] Start: 07-17-2023 End: 07-17-2023 Patient encounter procedure 07/17/2023 8:00 AM EDT Office Visit [facility] [address] [place] [phone] Tori Martinez, HERRERA [address] [place] [address] [facility] Start: 2014 Screening for malign ant neoplasm of cervix Pap Smear [facility] CHLAMYDIA TRACHOMATI S (GENITO/STI) CHLAMYDIA TRACHOMATIS (GENITO/STI) Lab Routine Screen for STD (sexually transmitted disease) Vaginal discharge Ordered: 02/10/2024 [facility] Comment on above: Ordered: 02/10/2024 Cytology Cervical or vaginal smear or scraping study Pap Smear Pathology and Cytology Routine Well woman exam with routine gynecological exam Ordered: 02/10/2024 [facility] Comment on above: Ordered: 02/10/2024 Human papilloma viru s DNA [Presence] in Unspecified specimen by Probe with amplification HPV DNA probe, amplified Microbiology Routine Well woman exam with routine gynecological exam Ordered: 02/10/2024 [facility] Comment on above: Ordered: 02/10/2024 Neisseria gonorrhoea e DNA [Presence] in Unspecified specimen by JUAN with probe detection Neisseria gonorrhea DNA probe, direct Lab Routine Screen for STD (sexually transmitted disease) Vaginal discharge Ordered: 02/10/2024 [facility] Comment on above: Ordered: 02/10/2024 SURESWAB(R) ADVANCED VAGINITIS PLUS, TMA SURESWAB(R) ADVANCED VAGINITIS PLUS, TMA Pathology and Cytology Routine Screen for STD (sexually transmitted disease) Vaginal discharge Ordered: 02/10/2024 [facility] Work Phone: Comment on above: Ordered: 02/10/2024 Thyrotropin [Units/volume] in Serum or Plasma TSH Lab Routine Other specified hypothyroidism (CMS/HCC) Ordered: 01/11/2024 [facility] Work Phone: Comment on above: Ordered: 01/11/2024 Thyrotropin [Units/volume] in Serum or Plasma TSH Lab Routine Hypothyroidism, unspecified type (CMS/HCC) Ordered: 04/13/2024 [facility] Comment on above: Ordered: 04/13/2024 Immunizations Immunization Date Immunization Notes Care Provider Byron carlson 05-05-2015 tetanus toxoid, redu catherine diphtheria toxoid, and acellular pertussis vaccine, adsorbed Tori Gomezchol DESPATCHING AND RECEIVING CLERK Work Phone: [facility] 02-14-2009 influenza, seasonal, injectable Tori Warchol DESPATCHING AND RECEIVING CLERK Work Phone: [facility] 02-14-2009 influenza virus vacc ine, unspecified formulation Tori Jasonchol DESPATCHING AND RECEIVING CLERK Work Phone: [facility] 12-12-2005 hepatitis A vaccine, unspecified formulation Tori Warchol DESPATCHING AND RECEIVING CLERK Work Phone: [facility] 12-12-2005 tetanus toxoid, redu catherine diphtheria toxoid, and acellular pertussis vaccine, adsorbed Tori Warchol DESPATCHING AND RECEIVING CLERK Work Phone: [facility] 11-19-1998 diphtheria, tetanus toxoids and acellular pertussis vaccine, unspecified formulation Tori Warchol DESPATCHING AND RECEIVING CLERK Work Phone: [facility] 11-19-1998 measles, mumps and rubella virus vaccine Tori Warchol DESPATCHING AND RECEIVING CLERK Work Phone: [facility] 11-19-1998 trivalent poliovirus vaccine, live, oral Tori Warchol DESPATCHING AND RECEIVING CLERK Work Phone: [facility] 09-14-1995 diphtheria, tetanus toxoids and acellular pertussis vaccine, unspecified formulation Tori Warchol DESPATCHING AND RECEIVING CLERK Work Phone: [facility] 09-14-1995 haemophilus influenz ae type b vaccine, conjugate unspecified formulation Troi Warchol DESPATCHING AND RECEIVING CLERK Work Phone: [facility] 11-20-1994 DTP-Haemophilus influenzae type b conjugate vaccine Tori Warchol DESPATCHING AND RECEIVING CLERK Work Phone: [facility] 11-20-1994 hepatitis B vaccine, pediatric or pediatric/adolescent dosage Tori Warchol DESPATCHING AND RECEIVING CLERK Work Phone: [facility] 11-20-1994 measles, mumps and rubella virus vaccine Tori Warchol DESPATCHING AND RECEIVING CLERK Work Phone: [facility] 11-20-1994 trivalent poliovirus vaccine, live, oral Tori Warchol DESPATCHING AND RECEIVING CLERK Work Phone: [facility] 09-18-1994 DTP-Haemophilus influenzae type b conjugate vaccine Tori Warchol DESPATCHING AND RECEIVING CLERK Work Phone: [facility] 09-18-1994 hepatitis B vaccine, pediatric or pediatric/adolescent dosage Tori Warchol DESPATCHING AND RECEIVING CLERK Work Phone: [facility] 09-18-1994 trivalent poliovirus vaccine, live, oral Tori Warchol DESPATCHING AND RECEIVING CLERK Work Phone: [facility] 1993 diphtheria, tetanus toxoids and pertussis vaccine Tori Warchol DESPATCHING AND RECEIVING CLERK Work Phone: [facility] 1993 haemophilus influenz ae type b vaccine, conjugate unspecified formulation Tori Martinez DESPATCHING AND RECEIVING CLERK Work Phone: [facility] 1993 hepatitis B vaccine, pediatric or pediatric/adolescent dosage Tori Martinez DESPATCHING AND RECEIVING CLERK Work Phone: [facility] 1993 trivalent poliovirus vaccine, live, oral Tori Martinez DESPATCHING AND RECEIVING CLERK Work Phone: [facility] Healthcare Payers Date Payer Category Payer Self-pay [id number] 2023 Medicaid [id number] 2022 Blue Cross Blue Shield [id number] 2022 Unknown BCBS BCBS xxxxxx [id number] 2022-Present [phone] [address] [place] [address] [id number] 2017 Private Health Insurance [id number] 1993 Unknown [id number] 1993 Unknown [id number] 1993 Unknown [id number] 2.16.840.1.109110.3.579.2.5 1993 Unknown [id number] 2.16.840.1.200233.3.579.2.5 93 1993 Unknown [id number] 2.16.840.1.016545.3.579.2.5 93 1993 Unknown [id number] 2.16.840.1.052199.3.579.2.5 93 1993 Unknown [id number] 2.16.840.1.452803.3.579.2.5 93 1993 Unknown [id number] 2.16.840.1.588115.3.579.2.5 93 1993 Unknown [id number] 2.16.840.1.852242.3.579.2.5 93 1993 Unknown [id number] 2.16.840.1.976315.3.579.2.5 93 1993 Unknown [id number] 2.16.840.1.626705.3.579.2.5 93 1993 Unknown [id number] 2.16.840.1.690877.3.579.2.5 93 1993 Unknown [id number] 2.16.840.1.527196.3.579.2.5 93 1993 Unknown [id number] 2.16.840.1.272061.3.579.2.5 93 1993 Unknown [id number] 93 1993 Unknown [id number] [id number] 93 1993 Unknown [id number] 2.16.840.1.075079.3.579.2.1 259 1993 Unknown [id number] 2.16.840.1.500864.3.579.2.1 259 1993 Unknown [id number] 2.16.840.1.676752.3.579.2.1 259 1993 Unknown [id number] 2.16.840.1.369474.3.579.2.1 259 1993 Unknown [id number] 2.16.840.1.902502.3.579.2.1 259 1993 Unknown [id number] 2.16.840.1.721524.3.579.2.1 259 1993 Unknown [id number] 2.16.840.1.212624.3.579.2.1 259 1993 Unknown [id number] 2.16.840.1.375608.3.579.2.1 259 1993 Unknown [id number] 2.16.840.1.518031.3.579.2.1 259 1993 Unknown [id number] 2.16.840.1.919210.3.579.2.1 259 1993 Unknown [id number] 2.16.840.1.597849.3.579.2.1 259 1993 Unknown [id number] 2.16.840.1.779039.3.579.2.1 259 1959 Self-pay [id number] 1959 Unknown [id number] 1959 Unknown [id number] 1959 Unknown [id number] Unknown [id number] 2.16.840.1.895731.3.579.2.5 93 Unknown HCAP/HFA/FAP Active [id number] Unknown [id number] 31 Social History Date Type Detail Facility Start: 08-27-2016 End: 09-25-2022 Tobacco smoking status [facility] Never smoked tobacco [facility] Health care Start: 09-25-2022 Tobacco [...] a typical day? Patient does not drink [facility] Healthcare How often do you hav e 6 or more drinks on 1 occasion? Never [facility] Start: 1995 Sex Assigned At Female [facility] Start: 09-24-2022 Gender identity Identifies as female gender (finding) [facility] Start: 10-08-2023 [facility] Healt h[facility] Start: 05-03-2024 End: 05-09-2024 Alcoholic beverage intake Ex-drinker (finding) [facility]ca re Medical Equipment Procedure Code Equipment Code Equipment Origin al Text Equipment Identifier Dates 1 strip by In Vi tro route Daily Use in the morning prior to breakfast, 1 hour after each meal for a total of 4times daily. [id number] Start: 03-21-2024 End: 04-20-2024 1 each by In Vit ro route Daily Use to check FSBS four times daily [id number] Start: 03-21-2024 End: 04-20-2024 Clinical Notes 06-02-2023 [...] esophagitis 09/01/2022 Moderate persistent asthma without complication ([facility]) 09/01/2022 Hypothyroidism, unspecified ([facility]) 03/02/2020 Moderate asthma ([facility]) 01/11/2024 30 weeks gestation of 04/21/2024 Third trimester 04/21/2024 Resolved Ambulatory Problems Diagnosis Date Noted Acquired hypothyroidism ([facility]) 09/01/2022 Allergic rhinitis 09/01/2022 Amenorrhea 09/01/2022 Asthma without status asthmaticus ([facility]) 09/01/2022 Attention deficit hyperactivity disorder ([facility]) 09/01/2022 Asthma affecting , antepartum ([facility]) 09/01/2022 Binge eating disorder 09/01/2022 Difficulty concentrating 09/01/2022 Irregular menstrual cycle 09/01/2022 Left sided sciatica 09/01/2022 Insomnia 09/01/2022 Migraines ([facility]CC) 09/01/2022 Metallic taste 09/01/2022 Mild persistent asthma without complication ([facility]) 09/01/2022 MTHFR mutation 09/01/2022 Nondependent cannabis abuse 09/01/2022 Other chronic pain 09/01/2022 Seasonal allergies 09/01/2022 Skin sensation disturbance 09/01/2022 Transitory mood disturbance 09/01/2022 Verruca plantaris 09/01/2022 Past Medical History: Diagnosis Date Acid reflux ADHD (attention deficit hyperactivity disorder) ([facility]) Asthma ([facility]) GERD (gastroesophageal reflux disease) Hypothyroid ([facility]) Lactose intolerance Marijuana use Migraine ([facility]) Mild persistent asthma, uncomplicated ([facility]) Supervision of normal Thyroid disease ([facility]) HISTORY PAST MEDICAL HISTORY SOCIAL HISTORY Past Medical History: Diagnosis Date Acid reflux ADHD (attention deficit hyperactivity disorder) ([facility]) Asthma ([facility]) Asthma affecting , antepartum ([facility]) GERD (gastroesophageal reflux disease) Hypothyroid ([facility]) Lactose intolerance Marijuana use Migraine ([facility]) Mild persistent asthma, uncomplicated ([facility]) MTHFR mutation Seasonal allergies Supervision of normal Thyroid disease ([facility]) Social History Tobacco Use Smoking [...] 2008 Plica band removal, left knee arthroscopy ME BREAST REDUCTION 10/2018 TONSILLECTOMY 1998 REVIEW OF [...] of: FERN Luis documented in this encounter [facility] 05-03-2024 History of Presen t illness Narrative [...] each, Rfl: 3 Blood Glucose Monitoring Suppl (D-[employer]ashion[employer] Glucometer) w/Device kit, 1 kit Daily Use [...] not improve . documented in this encounter [facility] 05-03-2024 Instructions Tori Martinez NP - 05/03/2024 4:40 PM EST PATIENT EDUCATION: ER follow-up The patient was seen today in follow-up of recent hospital ER/UC visit. All available records/labs/diagnostics were reviewed and discussed with the patient. ER/UC discharge meds were reviewed. Any changes to plan are noted above. documented in this encounter [facility] 04-21-2024 History of Presen t illness Narrative [...] to check FSBS. Blood Glucose Monitoring Suppl ([employer] Glucometer) w/Device kit 1 kit, Does not [...] esophagitis 09/01/2022 Moderate persistent asthma without complication ([facility]) 09/01/2022 Hypothyroidism, unspecified ([facility]) 03/02/2020 Moderate asthma ([facility]) 01/11/2024 30 weeks gestation of 04/21/2024 Third trimester 04/21/2024 Resolved Ambulatory Problems Diagnosis Date Noted Acquired hypothyroidism ([facility]) 09/01/2022 Allergic rhinitis 09/01/2022 Amenorrhea 09/01/2022 Asthma without status asthmaticus ([facility]) 09/01/2022 Attention deficit hyperactivity disorder ([facility]) 09/01/2022 Asthma affecting , antepartum ([facility]) 09/01/2022 Binge eating disorder 09/01/2022 Difficulty concentrating 09/01/2022 Irregular menstrual cycle 09/01/2022 Left sided sciatica 09/01/2022 Insomnia 09/01/2022 Migraines ([facility]) 09/01/2022 Metallic taste 09/01/2022 Mild persistent asthma without complication ([facility]) 09/01/2022 MTHFR mutation 09/01/2022 Nondependent cannabis abuse 09/01/2022 Other chronic pain 09/01/2022 Seasonal allergies 09/01/2022 Skin sensation disturbance 09/01/2022 Transitory mood disturbance 09/01/2022 Verruca plantaris 09/01/2022 Past Medical History: Diagnosis Date Acid reflux ADHD (attention deficit hyperactivity disorder) ([facility]) Asthma ([facility]) GERD (gastroesophageal reflux disease) Hypothyroid ([facility]) Lactose intolerance Marijuana use Migraine ([facility]) Mild persistent asthma, uncomplicated ([facility]) Supervision of normal Thyroid disease ([facility]) HISTORY PAST MEDICAL HISTORY SOCIAL HISTORY Past Medical History: Diagnosis Date Acid reflux ADHD (attention deficit hyperactivity disorder) ([facility]) Asthma ([facility]) Asthma affecting , antepartum ([facility]) GERD (gastroesophageal reflux disease) Hypothyroid ([facility]) Lactose intolerance Marijuana use Migraine ([facility]) Mild persistent asthma, uncomplicated ([facility]) MTHFR mutation Seasonal allergies Supervision of normal Thyroid disease ([facility]) Social History Tobacco Use Smoking [...] 2008 Plica band removal, left knee arthroscopy ME BREAST REDUCTION 10/2018 TONSILLECTOMY 1998 REVIEW OF [...] nursing note reviewed. Exam conducted with a records and information manager present. Vitals: Estimated body mass index [...] Herber Coto DO documented in this encounter [facility] 04-13-2024 History of Presen t illness Narrative [...] to check FSBS. Blood Glucose Monitoring Suppl (D-[employer] Glucometer) w/Device kit 1 kit, Does not [...] esophagitis 09/01/2022 Moderate persistent asthma without complication ([facility]) 09/01/2022 Hypothyroidism, unspecified ([facility]) 03/02/2020 Moderate asthma ([facility]) 01/11/2024 Resolved Ambulatory Problems Diagnosis Date Noted Acquired hypothyroidism ([facility]) 09/01/2022 Allergic rhinitis 09/01/2022 Amenorrhea 09/01/2022 Asthma without status asthmaticus ([facility]) 09/01/2022 Attention deficit hyperactivity disorder ([facility]) 09/01/2022 Asthma affecting , antepartum ([facility]) 09/01/2022 Binge eating disorder 09/01/2022 Difficulty concentrating 09/01/2022 Irregular menstrual cycle 09/01/2022 Left sided sciatica 09/01/2022 Insomnia 09/01/2022 Migraines ([facility]) 09/01/2022 Metallic taste 09/01/2022 Mild persistent asthma without complication ([facility]) 09/01/2022 MTHFR mutation 09/01/2022 Nondependent cannabis abuse 09/01/2022 Other chronic pain 09/01/2022 Seasonal allergies 09/01/2022 Skin sensation disturbance 09/01/2022 Transitory mood disturbance 09/01/2022 Verruca plantaris 09/01/2022 Past Medical History: Diagnosis Date Acid reflux ADHD (attention deficit hyperactivity disorder) ([facility]) Asthma ([facility]) GERD (gastroesophageal reflux disease) Hypothyroid ([facility]) Lactose intolerance Marijuana use Migraine ([facility]) Mild persistent asthma, uncomplicated ([facility]) Supervision of normal Thyroid disease ([facility]) HISTORY PAST MEDICAL HISTORY SOCIAL HISTORY Past Medical History: Diagnosis Date Acid reflux ADHD (attention deficit hyperactivity disorder) ([facility]) Asthma ([facility]) Asthma affecting , antepartum ([facility]) GERD (gastroesophageal reflux disease) Hypothyroid ([facility]) Lactose intolerance Marijuana use Migraine ([facility]) Mild persistent asthma, uncomplicated ([facility]) MTHFR mutation Seasonal allergies Supervision of normal Thyroid disease ([facility]) Social History Tobacco Use Smoking [...] 2008 Plica band removal, left knee arthroscopy ME BREAST REDUCTION 10/2018 TONSILLECTOMY 1998 REVIEW OF [...] of: FERN Luis documented in this encounter [facility] 04-06-2024 History of Presen t illness Narrative [...] tablet As directed Blood Glucose Monitoring Suppl (D-FashionQlub Glucometer) w/Device kit 1 kit, Does not [...] esophagitis 09/01/2022 Moderate persistent asthma without complication ([facility]) 09/01/2022 Hypothyroidism, unspecified ([facility]) 03/02/2020 Moderate asthma ([facility]) 01/11/2024 Resolved Ambulatory Problems Diagnosis Date Noted Acquired hypothyroidism ([facility]) 09/01/2022 Allergic rhinitis 09/01/2022 Amenorrhea 09/01/2022 Asthma without status asthmaticus ([facility]) 09/01/2022 Attention deficit hyperactivity disorder ([facility]) 09/01/2022 Asthma affecting , antepartum ([facility]) 09/01/2022 Binge eating disorder 09/01/2022 Difficulty concentrating 09/01/2022 Irregular menstrual cycle 09/01/2022 Left sided sciatica 09/01/2022 Insomnia 09/01/2022 Migraines ([facility]) 09/01/2022 Metallic taste 09/01/2022 Mild persistent asthma without complication ([facility]) 09/01/2022 MTHFR mutation 09/01/2022 Nondependent cannabis abuse 09/01/2022 Other chronic pain 09/01/2022 Seasonal allergies 09/01/2022 Skin sensation disturbance 09/01/2022 Transitory mood disturbance 09/01/2022 Verruca plantaris 09/01/2022 Past Medical History: Diagnosis Date Acid reflux ADHD (attention deficit hyperactivity disorder) ([facility]) Asthma ([facility]) GERD (gastroesophageal reflux disease) Hypothyroid ([facility]) Lactose intolerance Marijuana use Migraine ([facility]) Mild persistent asthma, uncomplicated ([facility]) Supervision of normal Thyroid disease ([facility]) HISTORY PAST MEDICAL HISTORY SOCIAL HISTORY Past Medical History: Diagnosis Date Acid reflux ADHD (attention deficit hyperactivity disorder) ([facility]) Asthma ([facility]) Asthma affecting , antepartum (CMS/HCC) GERD (gastroesophageal [...] 2008 Plica band removal, left knee arthroscopy ME BREAST REDUCTION 10/2018 TONSILLECTOMY 1998 REVIEW OF [...] of: FERN Luis documented in this encounter [facility] 03-09-2024 History of Presen t illness Narrative [...] esophagitis 09/01/2022 Moderate persistent asthma without complication ([facility]) 09/01/2022 Hypothyroidism, unspecified ([facility]) 03/02/2020 Moderate asthma ([facility]) 01/11/2024 Resolved Ambulatory Problems Diagnosis Date Noted Acquired hypothyroidism ([facility]) 09/01/2022 Allergic rhinitis 09/01/2022 Amenorrhea 09/01/2022 Asthma without status asthmaticus ([facility]) 09/01/2022 Attention deficit hyperactivity disorder ([facility]) 09/01/2022 Asthma affecting , antepartum ([facility]) 09/01/2022 Binge eating disorder 09/01/2022 Difficulty concentrating 09/01/2022 Irregular menstrual cycle 09/01/2022 Left sided sciatica 09/01/2022 Insomnia 09/01/2022 Migraines ([facility]) 09/01/2022 Metallic taste 09/01/2022 Mild persistent asthma without complication ([facility]) 09/01/2022 MTHFR mutation 09/01/2022 Nondependent cannabis abuse 09/01/2022 Other chronic pain 09/01/2022 Seasonal allergies 09/01/2022 Skin sensation disturbance 09/01/2022 Transitory mood disturbance 09/01/2022 Verruca plantaris 09/01/2022 Past Medical History: Diagnosis Date Acid reflux ADHD (attention deficit hyperactivity disorder) ([facility]) Asthma ([facility]) GERD (gastroesophageal reflux disease) Hypothyroid ([facility]) Lactose intolerance Marijuana use Migraine ([facility]) Mild persistent asthma, uncomplicated ([facility]) Supervision of normal Thyroid disease ([facility]) HISTORY PAST MEDICAL HISTORY SOCIAL HISTORY Past Medical History: Diagnosis Date Acid reflux ADHD (attention deficit hyperactivity disorder) ([facility]) Asthma ([facility]) Asthma affecting , antepartum ([facility]) GERD (gastroesophageal reflux disease) Hypothyroid ([facility]) Lactose intolerance Marijuana use Migraine ([facility]) Mild persistent asthma, uncomplicated ([facility]) MTHFR mutation Seasonal allergies Supervision of normal Thyroid disease ([facility]) Social History Tobacco Use Smoking [...] 2008 Plica band removal, left knee arthroscopy ME BREAST REDUCTION 10/2018 TONSILLECTOMY 1998 REVIEW OF [...] of: FERN Luis documented in this encounter [facility] 03-09-2024 Miscellaneous Notes Addended by: NIALL CONSTANTINO on: 03/10/2024 09:01 AM Modules accepted: Orders documented in this encounter [facility] 03-09-2024 Note Addended by: NIALL CLEVELAND on: 03/10/2024 09:01 AM Modules accepted: Orders [facility] 03-09-2024 Note Addended by: NIALL CLEVELAND on: 03/10/2024 09:01 AM Modules accepted: Orders [facility] 02-10-2024 History of Presen t illness [...] esophagitis 09/01/2022 Moderate persistent asthma without complication ([facility]) 09/01/2022 Hypothyroidism, unspecified ([facility]) 03/02/2020 Moderate asthma ([facility]) 01/11/2024 Resolved Ambulatory Problems Diagnosis Date Noted Acquired hypothyroidism ([facility]) 09/01/2022 Allergic rhinitis 09/01/2022 Amenorrhea 09/01/2022 Asthma without status asthmaticus ([facility]) 09/01/2022 Attention deficit hyperactivity disorder ([facility]) 09/01/2022 Asthma affecting , antepartum ([facility]) 09/01/2022 Binge eating disorder 09/01/2022 Difficulty concentrating 09/01/2022 Irregular menstrual cycle 09/01/2022 Left sided sciatica 09/01/2022 Insomnia 09/01/2022 Migraines ([facility]) 09/01/2022 Metallic taste 09/01/2022 Mild persistent asthma without complication ([facility]) 09/01/2022 MTHFR mutation 09/01/2022 Nondependent cannabis abuse 09/01/2022 Other chronic pain 09/01/2022 Seasonal allergies 09/01/2022 Skin sensation disturbance 09/01/2022 Transitory mood disturbance 09/01/2022 Verruca plantaris 09/01/2022 Past Medical History: Diagnosis Date Acid reflux ADHD (attention deficit hyperactivity disorder) ([facility]) Asthma ([facility]) GERD (gastroesophageal reflux disease) Hypothyroid ([facility]) Lactose intolerance Marijuana use Migraine ([facility]) Mild persistent asthma, uncomplicated ([facility]) Supervision of normal Thyroid disease ([facility]) HISTORY PAST MEDICAL HISTORY SOCIAL HISTORY Past Medical History: Diagnosis Date Acid reflux ADHD (attention deficit hyperactivity disorder) ([facility]) Asthma ([facility]) Asthma affecting , antepartum ([facility]) GERD (gastroesophageal reflux disease) Hypothyroid ([facility]) Lactose intolerance Marijuana use Migraine ([facility]) Mild persistent asthma, uncomplicated ([facility]) MTHFR mutation Seasonal allergies Supervision of normal Thyroid disease ([facility]) Social History Tobacco Use Smoking [...] 2008 Plica band removal, left knee arthroscopy ME BREAST REDUCTION 10/2018 TONSILLECTOMY 1998 REVIEW OF [...] Herber Coto DO documented in this encounter [facility] 01-11-2024 History of Presen t illness Narrative [...] esophagitis 09/01/2022 Moderate persistent asthma without complication ([facility]) 09/01/2022 Hypothyroidism, unspecified ([facility]) 03/02/2020 Resolved Ambulatory Problems Diagnosis Date Noted Acquired hypothyroidism ([facility]) 09/01/2022 Allergic rhinitis 09/01/2022 Amenorrhea 09/01/2022 Asthma without status asthmaticus ([facility]) 09/01/2022 Attention deficit hyperactivity disorder ([facility]) 09/01/2022 Asthma affecting , antepartum ([facility]) 09/01/2022 Binge eating disorder ([facility]) 09/01/2022 Difficulty concentrating 09/01/2022 Irregular menstrual cycle 09/01/2022 Left sided sciatica 09/01/2022 Insomnia 09/01/2022 Migraines ([facility]) 09/01/2022 Metallic taste 09/01/2022 Mild persistent asthma without complication (CMS/HCC) 09/01/2022 MTHFR mutation 09/01/2022 Nondependent cannabis abuse 09/01/2022 Other chronic pain 09/01/2022 Seasonal allergies 09/01/2022 Skin sensation disturbance 09/01/2022 Transitory mood disturbance 09/01/2022 Verruca plantaris 09/01/2022 Past Medical History: Diagnosis Date Acid reflux ADHD (attention deficit hyperactivity disorder) ([facility]) Asthma ([facility]) GERD (gastroesophageal reflux disease) Hypothyroid ([facility]) Lactose intolerance Marijuana use Migraine ([facility]) Mild persistent asthma, uncomplicated ([facility]) Supervision of normal Thyroid disease ([facility]) HISTORY PAST MEDICAL HISTORY SOCIAL HISTORY Past Medical History: Diagnosis Date Acid reflux ADHD (attention deficit hyperactivity disorder) ([facility]) Asthma ([facility]) Asthma affecting , antepartum ([facility]) GERD (gastroesophageal reflux disease) Hypothyroid ([facility]) Lactose intolerance Marijuana use Migraine ([facility]) Mild persistent asthma, uncomplicated ([facility]) MTHFR mutation Seasonal allergies Supervision of normal Thyroid disease ([facility]) Social History Tobacco Use Smoking [...] 2008 Plica band removal, left knee arthroscopy ME BREAST REDUCTION 10/2018 TONSILLECTOMY 1998 REVIEW OF [...] nursing note reviewed. Exam conducted with a records and information manager present. Vitals: Estimated body mass index [...] or undercooked meat, and stay away from [facility]. Patient has been consulted regarding any further [...] done she will reach out to office. Erector Operator will be notified at time of [...] . Informed patient since she sees a Front End Developer Designer to schedule appointment to make sure asthma is controlled during . Patient is currently taking [employer] Chewable kids vitamins. Patient is taking 2 [...] Herber Coto DO documented in this encounter [facility] 06-04-2023 Telephone encount er Note Sent [facility] 06-04-2023 Miscellaneous Notes Formattin g of this note might be different from the original. Sent Patient requesting refill/[place] documented in this encounter [facility] 06-02-2023 Telephone encount er Note Patient requesting refill/[place] [facility] Evaluation note Diagnosis Attention deficit hyperactivity disorder (ADHD), combined type ([facility]) [facility] noteNo assessment information available[facility] Work Phone: Evaluation note* Diagnosis [...] section and content) DATE CREATED AUTHOR 11/18/2018 [facility] DATE CREATED AUTHOR AUTHOR'S ORGANIZ ATION 11/26/2018 [facility] DATE CREATED AUTHOR AUTHOR'S ORGANIZ ATION 09/09/2022 [facility] DATE CREATED AUTHOR AUTHOR'S ORGANIZ ATION 03/16/2024 [facility] DATE CREATED AUTHOR AUTHOR'S ORGANIZ ATION 05/13/2024 [facility] EPIC Reason for Visit (unrecogniz ed section and content) Reason Onset Date Comments Med Refill 06/02/2023 Reason Comments Routine Visit Care Teams (unrecognized sec tion and content) [employer] Relationship Specialty Start Date End Date Carlos Alberto Coleman MD [address] [place] [address] PCP - General Family Medicine 09/24/22 Tori Martinez NP [address] [place] [address] Nurse Practitioner Family Medicine 09/24/22 Sofie Gr NP [address] [place] [address] Nurse Practitioner Pulmonary Disease 04/14/23 Team Status: Active Member Role Status Dates Carlos Alberto Coleman MD Primary Care Provider Active Team Status: Inactive Member Role Status Dates Carlos Alberto Coleman MD Primary Care Provider Active S tart: July 13, 2023 End: July 13, 2023 Sofie Gr NP-C Attending Provider Active Start: July 13, 2023 End: July 13, 2023 [employer] Relationship Specialty Start Date End Date Carlos Alberto Coleman MD [address] [place] [id number] PCP - General Family Medicine 09/24/22 Tori Martinez NP [address] [place] [address] PCP - [employer] 05/28/23 Tori Martinez NP [address] [place] [address] Nurse Practitioner Family Medicine 09/24/22 Sofie Gr NP [address] [place] [phone] Nurse Practitioner Pulmonary Disease 04/14/23 [employer] Hel[employer] Relationship Specialty Start Date End Date Carlos Alberto Coleman MD [address] [place] [address] PCP - General Family Medicine 09/24/22 Tori Martinez NP [address] [place] [address] PCP - [employer] 05/28/23 Tori Martinez NP [address] [place] [address] Nurse Practitioner Family Medicine 09/24/22 Sofie Gr NP [address] [place] [phone] Nurse Practitioner Pulmonary Disease 04/14/23 [employer] Relationship Specialty Start Date End Date Carlos Alberto Coleman MD [address] [place] [place] [address] PCP - General Family Medicine 09/24/22 Tori Martinez NP [address] [place] [address] PCP - [employer] 05/28/23 Tori Martinez NP [address] [place] [address] Nurse Practitioner Family Medicine 09/24/22 Sofie Gr NP [address] [place] [phone] Nurse Practitioner Pulmonary Disease 04/14/23 [employer] Relationship Specialty Start Date End Date Carlos Alberto Coleman MD [address] [place] [address] PCP - General Family Medicine 09/24/22 Tori Martinez NP [address] [place] [address] PCP - [employer] 05/28/23 Tori Martinez NP [address] [place] [address] Nurse Practitioner Family Medicine 09/24/22 Sofie Gr NP [address] [place] [phone] Nurse Practitioner Pulmonary Disease 04/14/23 [employer] Relationship Specialty Start Date End Date Carlos Alberto Coleman MD [address] [place] [address] PCP - General Family Medicine 09/24/22 Tori Martinez NP [address] [place] [address] PCP - [employer] 05/28/23 Tori Martinez NP [address] [place] [address] Nurse Practitioner Family Medicine 09/24/22 Sofie Gr NP [address] [place] [phone] Nurse Practitioner Pulmonary Disease 04/14/23 [employer] Helper Relationship Specialty Start Date End Date Carlos Alberto Coleman MD [address] [place] [address] PCP - General Family Medicine 09/24/22 Tori Martinez NP [address] [place] [address] PCP - [employer] 05/28/23 Tori Martinez NP [address] [place] [address] Nurse Practitioner Family Medicine 09/24/22 Sofie Gr NP [address] [place] [address] Nurse Practitioner Pulmonary Disease 04/14/23 Metal [employer] Helper Relationship Specialty Start Date End Date Carlos Alberto Coleman MD [address] [place] [address] PCP - General Family Medicine 09/24/22 Tori Martinez NP [address] [place] [address] PCP - [employer] 05/28/23 Tori Martinez NP [address] [place] [address] Nurse Practitioner Family Medicine 09/24/22 Sofie Gr NP [address] [place] [phone] Nurse Practitioner Pulmonary Disease 04/14/23 [employer] Relationship Specialty Start Date End Date Carlos Alberto Coleman MD [address] [place] [address] PCP - General Family Medicine 09/24/22 Tori Martinez NP [address] [place] [address] PCP - [employer] 05/28/23 Tori Martinez NP [address] [place] [address] Nurse Practitioner Family Medicine 09/24/22 Sofie Gr NP [address] [place] [phone] Nurse Practitioner Pulmonary Disease 04/14/23 [employer] Relationship Specialty Start Date End Date Carlos Alberto Coleman MD [address] [place] [address] PCP - General Family Medicine 09/24/22 Tori Martinez NP [address] [place] [address] PCP - [employer] 05/28/23 Tori Martinez NP [address] [place] [address] Nurse Practitioner Family Medicine 09/24/22 Sofie Gr NP [address] [place] [phone] Nurse Practitioner Pulmonary Disease 04/14/23 Metal [employer] Helper Relationship Specialty Start Date End Date Carlos Alberto Coleman MD [address] [place] [address] PCP - General Family Medicine 09/24/22 Tori Martinez NP [address] [place] [address] PCP - [employer] 05/28/23 Tori Martinez NP [address] [place] [address] Nurse Practitioner Family Medicine 09/24/22 Sofie Gr NP [address] [place] [phone] Nurse Practitioner Pulmonary Disease 04/14/23 Metal [employer]ing Helper Relationship Specialty Start Date End Date Carlos Alberto Coleman MD [address] [place] [address] PCP - General Family Medicine 09/24/22 Tori Martinez NP [address], [facility] PCP - Lith[employer] 05/28/23 Tori Martinez NP [address] [place] [address] Nurse Practitioner Family Medicine 09/24/22 Sofie Gr NP [address] [place] [phone] Nurse Practitioner Pulmonary Disease 04/14/23 Metal [employer] Helper Relationship Specialty Start Date End Date Carlos Alberto Coleman MD [address] [place] [address] PCP - General Family Medicine 09/24/22 Tori Martinez NP [address] [place] [address] PCP - [employer] 05/28/23 Tori Martinez NP [address] [place] [address] Nurse Practitioner Family Medicine 09/24/22 Sofie Gr NP [address] [place] [phone] Nurse Practitioner Pulmonary Disease 04/14/23 Metal [employer] Helper Relationship Specialty Start Date End Date Carlos Alberto Coleman MD [address] [place] [address] PCP - General Family Medicine 09/24/22 Tori Martinez NP [address] [place] [address] PCP - [employer] 05/28/23 Tori Martinez NP [address] [place] [address] Nurse Practitioner Family Medicine 09/24/22 Sofie Gr NP [address] [place] [address] Nurse Practitioner Pulmonary Disease 04/14/23 Goals (unrecognized [...] BE BASED ON THE PRIMARY CLINICAL RECORDS. [facility]. provides no warranty or guarantee of the accuracy or completeness of information in this document.
[2024-05-19 09:10] VITALS: BP 123/71; PULSE 80
== END 2024-05-19 09:49 | disposition home or self-care (01) ==
LOC: FBCO 01:16 → FBC 09:06
PROVIDERS: PCP Family Medicine; Visit Provider Obstetrics & Gynecology
DX: O99.283 Endocrine, nutritional and metabolic diseases complicating pregnancy, third trimester (principal); Z3A.34 34 weeks gestation of pregnancy
CPT/HCPCS: 59025

== ENCOUNTER 2024-05-23 01:16 | Outpatient (OUT) | payer BC, MEDICAID, SELFPAY ==
--- OUTSIDE RECORDS SUMMARY | 2024-05-23 01:21 | XMS_ITS | CCD ---
Author Organization [facility] Care Team Providers Care Churner Name Role Phone RENEE, MODE R Referring [...] ÁNGEL Attending Unavailable KIEPERT, ÁNGEL Admitting Unavailable NOBLETON, DR DEANNA Lance Consulting Unavailable PAY ., [...] ÁNGEL Primary Care Unavailable NNAMDI ., DR HUOSE Attending Unavailable NNAMDI ., DR HOUSE Admitting [...] Carlos Alberto Coleman MD Primary Care Provider [phone] Kyele BLOOD DONOR UNIT ASSISTANT, Tori Unavailable Maile BLOOD DONOR UNIT ASSISTANT, Sofie R Unavailable MD Carlos Alberto Coleman Primary Care Provider [phone] HEATHER Gr Attending Provider Maile BLOOD DONOR UNIT ASSISTANT, Sofie R Unavailable [phone] Kylee BLOOD DONOR UNIT ASSISTANT, Tori Unavailable Sofie Gr Attending Unavailable Sofie [...] source) Cefuroxime Drug Allergy 04-04-20 22 [facility] (2 sources) Ciprofloxacin Drug Allergy 04-03-20 16 [facility] (2 sources) Doxycycline Drug Allergy 05-20-19 21 vomiting [facility] (1 source) Flupenthixol Drug Allergy 04-04-20 22 [facility] (20 sources) Cefuroxime Drug Allergy 05-20-19 21 Rash [facility] (20 sources) Ciprofloxacin Drug Allergy 09-02-19 23 Shortness of breath [facility] (20 sources) Ciprofloxacin Drug Allergy 09-02-19 23 Shortness of breath [facility] (20 sources) cloNIDine Drug Allergy 03-14-20 21 [facility] (20 sources) cloNIDine Drug Allergy 09-02-19 23 [facility] (20 sources) Doxycycline Drug Allergy 05-20-19 21 GI intolerance [facility] (20 sources) Gluten Propensity to adverse reactions 11-11-19 19 [facility] (20 sources) Lactose (non-medical use) Allergy to substance 09-02-19 23 [facility] (20 sources) Lactose (non-medical use) Drug Intolerance 11-11-19 19 [facility] (20 sources) Octacosanol Drug Intolerance 11-11-19 19 [facility] (20 sources) Other Allergy to substance 11-11-19 19 [facility] (20 sources) Silver Allergy to substance 09-02-19 23 [facility] (20 sources) Wound Dressing Adhesive Drug Allergy 09-02-19 23 [facility] (1 source) Cefuroxime Drug Allergy 05-20-19 [facility] (1 source) Ciprofloxacin Drug Allergy 05-20-19 [facility] (1 source) Doxycycline Drug Allergy 05-20-19 21 [facility] Medications Current Medications Medication Drug Class(es) Dates Sig (Normalized) Sig (Original) [id number] 200 actuat albuterol 0.09 mg/actuat metered dose [...] UA Negative Negative - 4(70) +++ mg/dL [facility] Blood, UA Negative Negative - 50 Mendel/mcL [facility] Clarity, UA Clear [facility] Color, UA Yellow [facility] Glucose, UA Negative Negative - 1999(110) ++++ mg/dL [facility] Interpretation and review of laboratory results Abnormal [facility] Ketones, UA Negative Negative - 160(16) ++++ mg/dL [facility] Leukocytes, UA Positive Negative - 500+++ Leighann/mcL [facility] Comment on above: small Nitrite, UA Negative Negative - Positive [facility] pH, UA 6 5 - 9 [facility] Protein, UA Negative Negative - 1999(20) ++++ mg/dL [facility] Spec Grav, UA 1.03 1 - 1.03 [facility] Urobilinogen, UA 1.0 0.2 - 12 mg/dL [facility] Urinalysis macro (dipstick) panel (U)on 04-21-2024 Bilirubin, UA Negative Negative - 4(70) +++ mg/dL [facility] Blood, UA Negative Negative - 50 Mendel/mcL [facility] Clarity, UA Clear [facility] Color, UA Light Yellow [facility] Glucose, UA Negative Negative - 1999(110) ++++ mg/dL [facility] Interpretation and review of laboratory results Normal [facility] Ketones, UA Negative Negative - 160(16) ++++ mg/dL [facility] Leukocytes, UA Few Negative - 500+++ Leighann/mcL [facility] Nitrite, UA Negative Negative - Positive [facility] pH, UA 5.5 5 - 9 [facility] Protein, UA Trace Negative - 1999(20) ++++ mg/dL [facility] Spec Grav, UA 1.03 1 - 1.03 [facility] Urobilinogen, UA 0.2 0.2 - 12 mg/dL [facility] Urinalysis macro (dipstick) panel (U)on 04-13-2024 Bilirubin, UA Negative Negative - 4(70) +++ mg/dL [facility] Blood, UA Negative Negative - 50 Mendel/mcL [facility] Clarity, UA Clear [facility] Color, UA Yellow [facility] Glucose, UA Negative Negative - 1999(110) ++++ mg/dL [facility] Interpretation and review of laboratory results Normal [facility] Ketones, UA Negative Negative - 160(16) ++++ mg/dL [facility] Leukocytes, UA Negative Negative - 500+++ Leighann/mcL [facility] Nitrite, UA Negative Negative - Positive [facility] pH, UA 5.5 5 - 9 [facility] Protein, UA Negative Negative - 1999(20) ++++ mg/dL [facility] Spec Grav, UA 1.03 1 - 1.03 [facility] Urobilinogen, UA 0.2 0.2 - 12 mg/dL [facility] Urinalysis macro (dipstick) panel (U)on 04-06-2024 Bilirubin, UA Negative Negative - 4(70) +++ mg/dL [facility] Blood, UA Negative Negative - 50 Mendel/mcL [facility] Clarity, UA Clear [facility] Color, UA Yellow [facility] Glucose, UA Negative Negative - 1999(110) ++++ mg/dL [facility] Interpretation and review of laboratory results Normal [facility] Ketones, UA Negative Negative - 160(16) ++++ mg/dL [facility] Leukocytes, UA Negative Negative - 500+++ Leighann/mcL [facility] Nitrite, UA Negative Negative - Positive [facility] pH, UA 6 5 - 9 [facility] Protein, UA Negative Negative - 1999(20) ++++ mg/dL [facility] Spec Grav, UA 1.015 1 - 1.03 [facility] Urobilinogen, UA 0.2 0.2 - 12 mg/dL [facility] ALL CBC WITH AUTO DIFFon BASOPHILS ABSOLUTE AUTO 0 [facility] Basophils/100 WBC (Bld) 0.2 % 0.2 - 2.0 % [facility] Eosinophils/100 WBC (Bld) 0.7 % Low 0.9 - 7.0 % [facility] Erythrocyte distribution width (RBC) [Ratio] 12.3 % 11.0 - 15.0 % [facility] Hematocrit (Bld) [Volume fraction] 35.3 % Low 36.0 - 48.0 % [facility] Hemoglobin (Bld) [Mass/Vol] 11.8 g/dL Low 12.0 - 16.0 g/dL [facility] IMMATURE GRANULOCYTES ABS AUTO 0.04 High [facility] Immature granulocytes/100 WBC (Bld) 0.5 % 0.0 - 0.5 % [facility] Interpretation and review of laboratory results Abnormal [facility] LYMPHOCYTES ABSOLUTE AUTO 1.5 [facility] Lymphocytes/100 WBC (Bld) 17.1 % Low 20.5 - 60.0 % [facility] MCH (RBC) [Entitic mass] 31.1 pg 26.7 - 34.0 pg [facility] MCHC (RBC) [Mass/Vol] 33.4 g/dL 29.9 - 35.2 g/dL [facility] MCV (RBC) [Entitic vol] 93.1 fL 81.0 - 99.0 fL [facility] MONOCYTES ABSOLUTE AUTO 0.6 [facility] Monocytes/100 WBC (Bld) 7.2 % 1.7 - 12.0 % [facility] NEUTROPHILS ABSOLUTE AUTO 6.5 [facility] Neutrophils/100 WBC (Bld) 74.3 % 43.0 - 75.0 % [facility] Platelet mean volume (Bld) [Entitic vol] 10.6 fL 9.5 - 13.5 fL [facility] EO # 0.1 [facility] PLT 178 [facility] RBC 3.79 Low [facility] WBC 8.8 [facility] IGP,APTIMA HPV,AGE GDLNon AGE GDLN ACOG TESTING Note . [facility] Comment on above: TESTS RESULT FLAG UN ITS REF RANGE LAB Clinician Provided Cytology Information Source.............Cervix No. of containers..01 ThinPrep Vial Age Algo ACOG Sonja... 28- FLAG LEGEND: L-Low Normal,H-High Normal,LL-Alert Low,HH-Alert High <-Panic Low,>-Panic High,A-Abnormal,AA-Critical Abnormal Performed at: 01 =[address] [address] Radha Browne MD, HPV APTIMA Negative Negative [facility] Comment on above: This nucleic acid am plification test detects fourteen high- risk HPV types (16,18,31,33,35,39,45,51,52,56,58,59,66,68) without differentiation. Performed at: =[address] [id number] Host Hostess: Radha Browne MD, Phone: [phone] Performed at: [address] [id number] Host Hostess: Radha Browne MD, Phone: [phone] IGP, APTIMA HPV, RFX 16/18,45 Note . [facility] Comment on above: TESTS RESULT FLAG UN ITS REF RANGE LAB DIAGNOSIS: 02 NEGATIVE FOR INTRAEPITHELIAL LESION OR MALIGNANCY. Specimen adequacy: 02 Satisfactory for evaluation. No endocervical component is identified. Performed by: 02 Danie Vargas, Celery Tier (ASC) . 02 Note: Note 02 The [...] High,A-Abnormal,AA-Critical Abnormal Performed at: 02 [address] [facility] [address] [id number] Radha Browne MD, SPATULA-ALONE CERVIX [facility] Cytology Cervical or vaginal smear or scraping studyon 02-10-2024 [facility] Urinalysis macro (dipstick) panel (U)on 02-10-2024 Bilirubin, UA Negative Negative - 4(70) +++ mg/dL [facility] Blood, UA Negative Negative - 50 Mendel/mcL [facility] Clarity, UA Clear [facility] Color, UA Yellow [facility] Glucose, UA Negative Negative - 1999(110) ++++ mg/dL [facility] Interpretation and review of laboratory results Abnormal [facility] Ketones, UA Negative Negative - 160(16) ++++ mg/dL [facility] Leukocytes, UA Trace Negative - 500+++ Leighann/mcL [facility] Nitrite, UA Negative Negative - Positive [facility] pH, UA 7 5 - 9 [facility] Protein, UA Negative Negative - 1999(20) ++++ mg/dL [facility] Spec Grav, UA 1.02 1 - 1.03 [facility] Urobilinogen, UA 0.2 0.2 - 12 mg/dL [facility] ALL THYROID STIM HORMONEon 0 01-22-2024 TSH Qn 1.921 m[IU]/L [facility] Urinalysis macro (dipstick) panel (U)on 01-11-2024 Bilirubin, UA Negative Negative - 4(70) +++ mg/dL [facility] Blood, UA Negative Negative - 50 Mendel/mcL [facility] Clarity, UA Clear [facility] Color, UA Yellow [facility] Glucose, UA Negative Negative - 1999(110) ++++ mg/dL [facility] Interpretation and review of laboratory results Normal [facility] Ketones, UA Negative Negative - 160(16) ++++ mg/dL [facility] Leukocytes, UA Negative Negative - 500+++ Leighann/mcL [facility] Nitrite, UA Negative Negative - Positive [facility] pH, UA 6.0 5 - 9 [facility] Protein, UA Negative Negative - 1999(20) ++++ mg/dL [facility] Spec Grav, UA 1.015 1 - 1.03 [facility] Urobilinogen, UA 0.2 0.2 - 12 mg/dL [facility] BioFire Not Detectedon 07-12 BioFire Not Detected Not detected Normal Not Detecte [facility] Comment on above: Result Comment: This is a duplicate RP2.1 COVID (PCR) result to be used for statistical tracking purpose only. PERFORMED BY: [place] [address] PATHOLOGIST [employer] CATY NEELY M.D. Performed By: #### R RODGER PANEL UPP., BIOFIRECOVNOTDE #### [address] COVID-19 Detected/Not Detect edOrdered By: Sofie Gr on 07-13-2023 SARS-CoV-2 (COVID-19) RNA JUAN+non-probe Ql (Nph) Not detected Not Detecte [facility] Comment on above: This is a [...] Influenza A H3 Blank Space PERFORMED BY: [place] [address] PATHOLOGIST [employer] TE[employer] CATY NEELY M.D. Normal [facility] Comment on above: Performed By: #### R RODGER PANEL UPP., BIOFIRECOVNOTDE #### [address] Respiratory pathogens DNA an d RNA panel - Nasopharynx by JUAN with non-probe detectionOrdered By: Sofie Gr on 07-13-2023 Respiratory pathogens DNA and RNA panel JUAN+non-probe (Nph) [facility] CBC AUTO DIFFon 06-25-2022 BASO # 0.0 103/ul Normal 0.0-0.1 [facility] Comment on above: Performed By: #### C BC #### [facility] [address] [address] [address] Garland Kohli Basophils/100 WBC (Bld) 0.4 % Normal 0.2-2.0 [facility] Comment on above: Performed By: #### C BC #### [facility] [address] [address] [address] Garland Kohli EO # 0.1 103/ul Normal 0.0-0.7 [facility] Comment on above: Performed By: #### C BC #### [facility] [address] [place] [address] Dr. Garland Kohli Eosinophils/100 WBC (Bld) 0.9 % Normal 0.9-7.0 [facility] Comment on above: Performed By: #### C BC #### [facility] [address] [place] [address] Dr. Garland Kohli Erythrocyte distribution width (RBC) [Ratio] 12.4 % Normal 11.0-15.0 [facility] Comment on above: Performed By: #### C BC #### [facility] [address] [place] [address] Dr. Garland Kohli Hematocrit (Bld) [Volume fraction] 31.4 % Critically low 36.0-48.0 [facility] Comment on above: Performed By: #### C BC #### [facility] [address] [place] [address] Dr. Garland Kohli Hemoglobin (Bld) [Mass/Vol] 10.4 g/dL Critically low 12.0-16.0 [facility] Comment on above: Performed By: #### C BC #### [facility] [address] [place] [address] Dr. Garland Kohli IG # 0.04 10e3/ul Critically high 0.00-0.[address] [facility] Comment on above: Performed By: #### C BC #### [facility] [address] [place] [address] Dr. Garland Kohli IG % 0.4 % Normal 0.0-0.5 [facility] Comment on above: Performed By: #### C BC #### [facility] [address] [place] [address] Dr. Garland Kohli LYMPH # 2.0 103/ul Normal 1.2-3.8 [facility] Comment on above: Performed By: #### C BC #### [facility] [address] [place] [address] Dr. Garland Kohli Lymphocytes/100 WBC (Bld) 22.1 % Normal 20.5-60.0 [facility] Comment on above: Performed By: #### C BC #### [facility] [address] [place] [address] Dr. Garland Kohli MANUAL DIFF REQ NO Normal [facility] Comment on above: Performed By: #### C BC #### [facility] [address] [place] [address] Dr. Garland Kohli MCH (RBC) [Entitic mass] 30.1 pg Normal 26.7-34.0 [facility] Comment on above: Performed By: #### C BC #### [facility] [address] [place] [address] Dr. Garland Kohli MCHC (RBC) [Mass/Vol] 33.1 g/dL Normal 29.9-35.2 [facility] Comment on above: Performed By: #### C BC #### [facility] [address] [place] [address] Dr. Garland Kohli MCV (RBC) [Entitic vol] 91.0 fL Normal 81.0-99.0 [facility] Comment on above: Performed By: #### C BC #### [facility] [address] [place] [address] Dr. Garland Kohli MONO # 0.8 103/ul Normal 0.3-0.8 [facility] Comment on above: Performed By: #### C BC #### [facility] [address] [place] [address] Dr. Garland Kohli Monocytes/100 WBC (Bld) 8.8 % Normal 1.7-12.0 [facility] Comment on above: Performed By: #### C BC #### [facility] [address] [place] [address] Dr. Garland Kohli NEUT # 6.0 103/ul Normal 1.4-6.5 [facility] Comment on above: Performed By: #### C BC #### [facility] [address] [place] [address] Dr. Garland Kohli Neutrophils/100 WBC (Bld) 67.4 % Normal 43.0-75.0 [facility] Comment on above: Performed By: #### C BC #### [facility] [address] [place] [address] Dr. Garland Kohli Platelet mean volume (Bld) [Entitic vol] 12.0 fL Normal 9.5-13.5 [facility] Comment on above: Performed By: #### C BC #### [facility] [address] [place] [address] Dr. Garland Kohli PLT 151 103/ul Normal 150-450 [facility] Comment on above: Performed By: #### C BC #### [facility] [address] [place] [address] Dr. Garland Kohli RBC 3.45 106/ul Critically low 4.20-5.40 [facility] Comment on above: Performed By: #### C BC #### [facility] [address] [place] [address] Dr. Garland Kohli WBC 8.9 103/ul Normal 4.0-11.0 [facility] Comment on above: Performed By: #### C BC #### [facility] [address] [place] [address] Dr. Garland Kohli CBC AUTO DIFFon 06-23-2022 BASO # 0.0 103/ul Normal 0.0-0.1 [facility] Comment on above: Performed By: #### C BC #### [facility] [address] [place] [address] Dr. Garland Kohli Basophils/100 WBC (Bld) 0.4 % Normal 0.2-2.0 [facility] Comment on above: Performed By: #### C BC #### [facility] [address] [place] [address] Dr. Garland Kohli EO # 0.1 103/ul Normal 0.0-0.7 [facility] Comment on above: Performed By: #### C BC #### [facility] [address] [place] [address] Dr. Garland Kohli Eosinophils/100 WBC (Bld) 0.8 % Critically low 0.9-7.0 [facility] Comment on above: Performed By: #### C BC #### [facility] [address] [place] [address] Dr. Garland Kohli Erythrocyte distribution width (RBC) [Ratio] 12.4 % Normal 11.0-15.0 [facility] Comment on above: Performed By: #### C BC #### [facility] [address] [place] [address] Dr. Garland Kohli Hematocrit (Bld) [Volume fraction] 34.5 % Critically low 36.0-48.0 [facility] Comment on above: Performed By: #### C BC #### [facility] [address] [place] [address] Dr. Garland Kohli Hemoglobin (Bld) [Mass/Vol] 11.6 g/dL Critically low 12.0-16.0 [facility] Comment on above: Performed By: #### C BC #### [facility] [address] [place] [address] Dr. Garland Kohli IG # 0.04 10e3/ul Critically high 0.00-0.[address] [facility] Comment on above: Performed By: #### C BC #### [facility] [address] [place] [address] Dr. Garland Kohli IG % 0.5 % Normal 0.0-0.5 [facility] Comment on above: Performed By: #### C BC #### [facility] [address] [place] [address] Dr. Garland Kohli LYMPH # 1.3 103/ul Normal 1.2-3.8 [facility] Comment on above: Performed By: #### C BC #### [facility] [address] [place] [address] Dr. Garland Kohli Lymphocytes/100 WBC (Bld) 17.6 % Critically low 20.5-60.0 [facility] Comment on above: Performed By: #### C BC #### [facility] [address] [place] [address] Dr. Garland Kohli MANUAL DIFF REQ NO Normal [facility] Comment on above: Performed By: #### C BC #### [facility] [address] [place] [address] Dr. Garland Kohli MCH (RBC) [Entitic mass] 29.6 pg Normal 26.7-34.0 [facility] Comment on above: Performed By: #### C BC #### [facility] [address] [place] [address] Dr. Garland Kohli MCHC (RBC) [Mass/Vol] 33.6 g/dL Normal 29.9-35.2 [facility] Comment on above: Performed By: #### C BC #### [facility] [address] [place] [address] Dr. Garland Kohli MCV (RBC) [Entitic vol] 88.0 fL Normal 81.0-99.0 [facility] Comment on above: Performed By: #### C BC #### [facility] [address] [place] [address] Dr. Garland Kohli MONO # 0.9 103/ul Critically high 0.3-0.8 [facility] Comment on above: Performed By: #### C BC #### [facility] [address] [place] [address] Dr. Garland Kohli Monocytes/100 WBC (Bld) 11.7 % Normal 1.7-12.0 [facility] Comment on above: Performed By: #### C BC #### [facility] [address] [place] [address] Dr. Garland Kohli NEUT # 5.1 103/ul Normal 1.4-6.5 [facility] Comment on above: Performed By: #### C BC #### [facility] [address] [place] [address] Dr. Garland Kohli Neutrophils/100 WBC (Bld) 69.0 % Normal 43.0-75.0 [facility] Comment on above: Performed By: #### C BC #### [facility] [address] [place] [address] Dr. Garland Kohli Platelet mean volume (Bld) [Entitic vol] 12.1 fL Normal 9.5-13.5 [facility] Comment on above: Performed By: #### C BC #### [facility] [address] [place] [address] Dr. Garland Kohli PLT 193 103/ul Normal 150-450 [facility] Comment on above: Performed By: #### C BC #### [facility] [address] [address] [address] Garland Kohli RBC 3.92 106/ul Critically low 4.20-5.40 [facility] Comment on above: Performed By: #### C BC #### [facility] [address] [place] [address] Dr. Garland Kohli WBC 7.4 103/ul Normal 4.0-11.0 [facility] Comment on above: Performed By: #### C BC #### [facility] [address] [place] [address] Dr. Garland Kohli DRUG SCREEN RAPID (URINE)on 06-23-2022 AMP Negative Normal NEGATIVE [facility] Comment on above: Performed By: #### D RUGRPD #### [facility] [address] [place] [address] Dr. Garland Kohli BAR Negative Normal NEGATIVE [facility] Comment on above: Performed By: #### D RUGRPD #### [facility] [address] [place] [address] Dr. Garland Kholi BUP Negative Normal NEGATIVE [facility] Comment on above: Performed By: #### D RUGRPD #### [facility] [address] [place] [address] Dr. Garland Kohli BZO Negative Normal NEGATIVE [facility] Comment on above: Performed By: #### D RUGRPD #### [facility] [address] [place] [address] Dr. Garland Kohli JUANI Negative Normal NEGATIVE [facility] Comment on above: Performed By: #### D RUGRPD #### [facility] [address] [place] [address] Dr. Garland Kohli CUT-OFFS SEE BELOW Normal [facility] Comment on above: Result Comment: AMP [...] ng/mL Performed By: #### D RUGRPD #### [facility] [address] [place] [address] Dr. Garland Kohli DRUG CUT HEADER DRUG CLASS TEST SYSTEM CUT-OFF CONCENTRATIONS ARE FOLLOWS: Normal [facility] Comment on above: Performed By: #### D RUGRPD #### [facility] [address] [place] [address] Dr. Garland Kohli mAMP Negative Normal NEGATIVE [facility] Comment on above: Performed By: #### D RUGRPD #### [facility] [address] [place] [address] Dr. Garland Kohli MTD Negative Normal NEGATIVE [facility] Comment on above: Performed By: #### D RUGRPD #### [facility] [address] [place] [address] Dr. Garland Kohli OPI Negative Normal NEGATIVE [facility] Comment on above: Performed By: #### D RUGRPD #### [facility] [address] [place] [address] Dr. Garland Kohli OXY Negative Normal NEGATIVE [facility] Comment on above: Performed By: #### D RUGRPD #### [facility] [address] [place] [address] Dr. Garland Kohli PCP Negative Normal NEGATIVE [facility] Comment on above: Performed By: #### D RUGRPD #### [facility] [address] [place] [address] Dr. Garland Kohli PPX Negative Normal NEGATIVE [facility] Comment on above: Performed By: #### D RUGRPD #### [facility] [address] [place] [address] Dr. Garland Kohli TCA Negative Normal NEGATIVE [facility] Comment on above: Performed By: #### D RUGRPD #### [facility] [address] [place] [address] Dr. Garland Kohli THC Negative Normal NEGATIVE [facility] Comment on above: Performed By: #### D RUGRPD #### [facility] [address] [place] [address] Dr. Garland Kohli TYPE AND SCREENon 06-23-2022 TYPE AND SCREEN Negative Normal [facility] Comment on above: Performed By: #### T NS #### [facility] [address] [place] [address] Dr. Garland Kohli FREE T4on 06-07-2022 Free T4 [Mass/Vol] 0.76 ng/dL Normal 0.76-1.46 [facility] Comment on above: Performed By: #### C BC #### [facility] [address] [place] [address] Dr. Garland Kohli TSHon 06-07-2022 TSH 1.393 uIU/mL Normal 0.358-3.740 [facility] Comment on above: Performed By: #### T SH #### [facility] [address] [place] [address] Dr. Garland Kohli GROUP B STREP CULTUREon S. agalactiae Ag Ql (Unsp spec) Culture Observations: NEGATIVE FOR GROUP B STREPTOCOCCUS. Normal [facility] Comment on above: Performed By: #### C BC #### [facility] [address] [place] [address] Dr. Garland Kohli GTT 3 HR PREGon 04-16-2022 Glucose [Mass/Vol] 87 mg/dL Normal 74-106 [facility] Comment on above: Performed By: #### G TT3P #### [facility] [address] [address] [address] Garland Kohli Glucose [Mass/Vol] 148 mg/dL Normal [facility] Comment on above: Performed By: #### G TT3P #### [facility] [address] [place] [address] Dr. Garland Kohli Glucose [Mass/Vol] 128 mg/dL Normal [facility] Comment on above: Performed By: #### G TT3P #### [facility] [address] [place] [address] Dr. Garland Kohli Glucose [Mass/Vol] 105 mg/dL Normal [facility] Comment on above: Performed By: #### G TT3P #### [facility] [address] [place] [address] Dr. Garland Kohli CBC AUTO DIFFon 04-04-2022 BASO # 0.0 103/ul Normal 0.0-0.1 [facility] Comment on above: Performed By: #### G TT3P #### [facility] [address] [place] [address] Dr. Garland Kohli Basophils/100 WBC (Bld) 0.2 % Normal 0.2-2.0 [facility] Comment on above: Performed By: #### G TT3P #### [facility] [address] [place] [address] Dr. Garland Kohli EO # 0.0 103/ul Normal 0.0-0.7 [facility] Comment on above: Performed By: #### G TT3P #### [facility] [address] [place] [address] Dr. Garland Kohli Eosinophils/100 WBC (Bld) 0.4 % Critically low 0.9-7.0 [facility] Comment on above: Performed By: #### G TT3P #### [facility] [address] [place] [address] Dr. Garland Kohli Erythrocyte distribution width (RBC) [Ratio] 12.9 % Normal 11.0-15.0 [facility] Comment on above: Performed By: #### G TT3P #### [facility] [address] [place] [address] Dr. Garland Kohli Hematocrit (Bld) [Volume fraction] 32.5 % Critically low 36.0-48.0 [facility] Comment on above: Performed By: #### G TT3P #### [facility] [address] [place] [address] Dr. Garland Kohli Hemoglobin (Bld) [Mass/Vol] 11.2 g/dL Critically low 12.0-16.0 [facility] Comment on above: Performed By: #### G TT3P #### [facility] [address] [place] [address] Dr. Garland Kolhi IG # 0.07 10e3/ul Critically high 0.00-0.03 [facility] Comment on above: Performed By: #### G TT3P #### [facility] [address] [place] [address] Dr. Garland Kohli IG % 0.8 % Critically high 0.0-0.5 [facility] Comment on above: Performed By: #### G TT3P #### [facility] [address] [place] [address] Dr. Garland Kohli LYMPH # 0.9 103/ul Critically low 1.2-3.8 [facility] Comment on above: Performed By: #### G TT3P #### [facility] [address] [place] [address] Dr. Garland Kohli Lymphocytes/100 WBC (Bld) 10.4 % Critically low 20.5-60.0 [facility] Comment on above: Performed By: #### G TT3P #### [facility] [address] [place] [address] Dr. Garland Kohli MANUAL DIFF REQ NO Normal [facility] Comment on above: Performed By: #### G TT3P #### [facility] [address] [place] [address] Dr. Garland Kohli MCH (RBC) [Entitic mass] 31.4 pg Normal 26.7-34.0 [facility] Comment on above: Performed By: #### G TT3P #### [facility] [address] [place] [address] Dr. Garland Kohli MCHC (RBC) [Mass/Vol] 34.5 g/dL Normal 29.9-35.2 [facility] Comment on above: Performed By: #### G TT3P #### [facility] [address] [place] [address] Dr. Garland Kohli MCV (RBC) [Entitic vol] 91.0 fL Normal 81.0-99.0 [facility] Comment on above: Performed By: #### G TT3P #### [facility] [address] [place] [address] Dr. Garland Kohli MONO # 1.1 103/ul Critically high 0.3-0.8 [facility] Comment on above: Performed By: #### G TT3P #### [facility] [address] [place] [address] Dr. Garland Kohli Monocytes/100 WBC (Bld) 12.5 % Critically high 1.7-12.0 [facility] Comment on above: Performed By: #### G TT3P #### [facility] [address] [place] [address] Dr. Garland Kohli NEUT # 6.3 103/ul Normal 1.4-6.5 [facility] Comment on above: Performed By: #### G TT3P #### [facility] [address] [place] [address] Dr. Garland Kohli Neutrophils/100 WBC (Bld) 75.7 % Critically high 43.0-75.0 [facility] Comment on above: Performed By: #### G TT3P #### [facility] [address] [place] [address] Dr. Garland Kohli Platelet mean volume (Bld) [Entitic vol] 10.5 fL Normal 9.5-13.5 [facility] Comment on above: Performed By: #### G TT3P #### [facility] [address] [place] [address] Dr. Garland Kohli PLT 181 103/ul Normal 150-450 [facility] Comment on above: Performed By: #### G TT3P #### [facility] [address] [address] [address] Garland Kohli RBC 3.57 106/ul Critically low 4.20-5.40 [facility] Comment on above: Performed By: #### G TT3P #### [facility] [address] [place] [address] Dr. Garland Kohli WBC 8.4 103/ul Normal 4.0-11.0 [facility] Comment on above: Performed By: #### G TT3P #### [facility] [address] [place] [address] Dr. Garland Kohli CTA CHEST WO W [...] DEANNA LINN Date: 2022-04-04 15:25 Normal [facility] PROF CHEM 8 (BAS METB)on Anion gap [Moles/Vol] 13.2 mmol/L Normal [facility] Comment on above: Performed By: #### G TT3P #### [facility] [address] [place] [address] Dr. Garland Kohli Calcium [Mass/Vol] 8.5 mg/dL Normal 8.5-10.1 [facility] Comment on above: Performed By: #### G TT3P #### [facility] [address] [place] [address] Dr. Garland Kohli Chloride [Moles/Vol] 103 mmol/L Normal 98-107 [facility] Comment on above: Performed By: #### G TT3P #### [facility] [address] [place] [address] Dr. Garland Kohli CO2 [Moles/Vol] 23.4 mmol/L Normal 21.0-32.0 [facility] Comment on above: Performed By: #### G TT3P #### [facility] [address] [place] [address] Dr. Garland Kohli Creatinine [Mass/Vol] 0.43 mg/dL Critically low 0.55-1.02 [facility] Comment on above: Performed By: #### G TT3P #### [facility] [address] [place] [address] Dr. Garland Kohli EGFR-AF MAURITIAN >60 Normal >=60 [facility] Comment on above: Performed By: #### G TT3P #### [facility] [address] [place] [address] Dr. Garland Kohli EGFR-NON AF MAURITIAN >60 Normal >=60 [facility] Comment on above: Performed By: #### G TT3P #### [facility] [address] [place] [address] Dr. Garland Kohli Glucose [Mass/Vol] 108 mg/dL Critically high 74-106 [facility] Comment on above: Performed By: #### G TT3P #### [facility] [address] [place] [address] Dr. Garland Kohli Potassium [Moles/Vol] 3.6 mmol/L Normal 3.5-5.1 [facility] Comment on above: Performed By: #### G TT3P #### [facility] [address] [place] [address] Dr. Garland Kohli Sodium [Moles/Vol] 136 mmol/L Normal 136-145 [facility] Comment on above: Performed By: #### G TT3P #### [facility] [address] [place] [address] Dr. Garland Kohli Urea nitrogen [Mass/Vol] 5.0 mg/dL Critically low 7.0-18.0 [facility] Comment on above: Performed By: #### G TT3P #### [facility] [address] [place] [address] Dr. Garland Kohli Urea nitrogen/Creatinine [Mass ratio] 11.6 mg/mg Normal [facility] Comment on above: Performed By: #### G TT3P #### [facility] [address] [place] [address] Dr. Garland Kohli TROPONIN, HIGH SENSITIVITYon 04-04-2022 HSTROP 9.3 pg/mL Normal 4.0-51.3 [facility] Comment on above: Result Comment: CUT- OFF POINTS HAVE BEEN ESTABLISHED BASED ON THE FOURTH UNIVERSAL DEFINITIONS OF MYOCARDIAL INFARCTION. THE UPPER REFERENCE LIMIT (URL) OF TROPONIN, DEFINED THE 99TH PERCENTILE OF cTnI DISTRIBUTION IN A REFERENCE POPULATION, HAS BEEN CONFIRMED THE DECISION THRESHOLD FOR [place] DIAGNOSIS. Performed By: #### G TT3P #### [facility] [address] [place] [address] Dr. Garland Kohli CBC AUTO DIFFon 03-26-2022 BASO # 0.0 103/ul Normal 0.0-0.1 [facility] Comment on above: Performed By: #### G TT3P #### [facility] [address] [place] [address] Dr. Garland Kohli Basophils/100 WBC (Bld) 0.2 % Normal 0.2-2.0 [facility] Comment on above: Performed By: #### G TT3P #### [facility] [address] [place] [address] Dr. Garland Kohli EO # 0.1 103/ul Normal 0.0-0.7 [facility] Comment on above: Performed By: #### G TT3P #### [facility] [address] [place] [address] Dr. Garland Kohli Eosinophils/100 WBC (Bld) 1.0 % Normal 0.9-7.0 [facility] Comment on above: Performed By: #### G TT3P #### [facility] [address] [place] [address] Dr. Garland Kohli Erythrocyte distribution width (RBC) [Ratio] 12.8 % Normal 11.0-15.0 [facility] Comment on above: Performed By: #### G TT3P #### [facility] [address] [place] [address] Dr. Garland Kohli Hematocrit (Bld) [Volume fraction] 36.2 % Normal 36.0-48.0 [facility] Comment on above: Performed By: #### G TT3P #### [facility] [address] [place] [address] Dr. Garland Kohli Hemoglobin (Bld) [Mass/Vol] 12.2 g/dL Normal 12.0-16.0 [facility] Comment on above: Performed By: #### G TT3P #### [facility] [address] [place] [address] Dr. Garland Kohli IG # 0.08 10e3/ul Critically high 0.00-0.[address] [facility] Comment on above: Performed By: #### G TT3P #### [facility] [address] [place] [address] Dr. Garland Kohli IG % 0.9 % Critically high 0.0-0.5 [facility] Comment on above: Performed By: #### G TT3P #### [facility] [address] [place] [address] Dr. Garland Kohli LYMPH # 1.7 103/ul Normal 1.2-3.8 [facility] Comment on above: Performed By: #### G TT3P #### [facility] [address] [place] [address] Dr. Garland Kohli Lymphocytes/100 WBC (Bld) 17.8 % Critically low 20.5-60.0 [facility] Comment on above: Performed By: #### G TT3P #### [facility] [address] [place] [address] Dr. Garland Kohli MANUAL DIFF REQ NO Normal [facility] Comment on above: Performed By: #### G TT3P #### [facility] [address] [place] [address] Dr. Garland Kohli MCH (RBC) [Entitic mass] 30.7 pg Normal 26.7-34.0 [facility] Comment on above: Performed By: #### G TT3P #### [facility] [address] [place] [address] Dr. Garland Kohli MCHC (RBC) [Mass/Vol] 33.7 g/dL Normal 29.9-35.2 [facility] Comment on above: Performed By: #### G TT3P #### [facility] [address] [place] [address] Dr. Garland Kohli MCV (RBC) [Entitic vol] 91.2 fL Normal 81.0-99.0 [facility] Comment on above: Performed By: #### G TT3P #### [facility] [address] [place] [address] Dr. Garland Kohli MONO # 0.6 103/ul Normal 0.3-0.8 [facility] Comment on above: Performed By: #### G TT3P #### [facility] [address] [place] [address] Dr. Garland Kohli Monocytes/100 WBC (Bld) 6.0 % Normal 1.7-12.0 [facility] Comment on above: Performed By: #### G TT3P #### [facility] [address] [place] [address] Dr. Garland Kohli NEUT # 6.9 103/ul Critically high 1.4-6.5 [facility] Comment on above: Performed By: #### G TT3P #### [facility] [address] [place] [address] Dr. Garland Kohli Neutrophils/100 WBC (Bld) 74.1 % Normal 43.0-75.0 [facility] Comment on above: Performed By: #### G TT3P #### [facility] [address] [place] [address] Dr. Garland Kohli Platelet mean volume (Bld) [Entitic vol] 10.2 fL Normal 9.5-13.5 [facility] Comment on above: Performed By: #### G TT3P #### [facility] [address] [address] [address] Garland Kohli PLT 217 103/ul Normal 150-450 [facility] Comment on above: Performed By: #### G TT3P #### [facility] [address] [address] [address] Garland Kohli RBC 3.97 106/ul Critically low 4.20-5.40 [facility] Comment on above: Performed By: #### G TT3P #### [facility] [address] [address] [address] Garland Kohli WBC 9.3 103/ul Normal 4.0-11.0 [facility] Comment on above: Performed By: #### G TT3P #### [facility] [address] [place] [address] Dr. Garland Kohli GLUCOSE - 1HRon 03-26-2022 Glucose [Mass/Vol] 155 mg/dL Critically high 74-106 [facility] Comment on above: Performed By: #### C BC #### [facility] [address] [place] [address] Dr. aGrland Kohli US PREG ANATOMY SINGLEon US PREG [...] YAAKOV TERAN Date: 2022-02-09 19:30 Normal [facility] AFP MATERNAL FOR SPINA BIFID Aon 01-29-2022 AFP MoM 0.76 Normal [facility] Comment on above: Performed By: #### G TT3P #### [facility] [address] [address] [address] Garland Kohli AFP Value 35.4 ng/mL Normal [facility] Comment on above: Performed By: #### G TT3P #### [facility] [address] [address] [address] Garland Kohli AFP, Serum for Spina Bifida Report Normal [facility] Comment on above: Performed By: #### G TT3P #### [facility] [address] [address] [address] Garland Kohli Comment Comment Normal [facility] Comment on above: Result Comment: Stanley Almodovar, Ph.D., [facility] Director . References: Available Upon Request. . Multiples Of Median Cutoffs For AFP Elevations Mark 2.5 Black 2.8 IDD 2.0 Twins 4.5 Abbreviation Definitions IDD - Insulin Dep Diabetes OSBR - Open Spina Bifida Risk . For further inquiries contact [facility] at [phone]. . This test was developed and its performance characteristics determined by [employer]. It has not been cleared or approved by the Food and Drug Administration. Performed By: #### G TT3P #### [facility] [address] [address] [address] Garland Izquierdo Age Collection Date 18.1 weeks Normal [facility] Comment on above: Performed By: #### G TT3P #### [facility] [address] [address] [address] Garland Kohli Gestat, Age Based on Ultrasound Normal [facility] Comment on above: Result Comment: 09:4 on 11/26/2021 Recalculations are not recommended when gestational dating by LMP and ultrasound are within 10 days. Performed By: #### G TT3P #### [facility] [address] [address] [address] Garland Kohli Insulin Dep Diabetes No Normal [facility] Comment on above: Performed By: #### G TT3P #### [facility] [address] [address] [address] Garland Kohli Interpretation Comment Normal [facility] Comment on above: Result Comment: Inte rpretation: [...] Customer Services to discuss available options. The [employer] recommends amniocentesis be offered to women age 35 and older. Performed By: #### G TT3P #### [facility] [address] [place] [address] Dr. Garland Kohli [age] Normal [facility] Comment on above: Performed By: #### G TT3P #### [facility] [address] [place] [address] Dr. Garland Kohli Multiple Gestation No Normal [facility] Comment on above: Performed By: #### G TT3P #### [facility] [address] [place] [address] Dr. Garland Kohli OS[place] 1 [place] [id number] [facility] Comment on above: Performed By: #### G TT3P #### [facility] [address] [place] [address] Dr. Graland Kohli PDF . Normal [facility] Comment on above: Performed By: #### G TT3P #### [facility] [address] [place] [address] Dr. Garland Kohli Race [facility] Comment on above: Performed By: #### G TT3P #### [facility] [address] [place] [address] Dr. Garland Kohli Test Results: Negative [facility] Comment on above: Performed By: #### G TT3P #### [facility] [address] [place] [address] Dr. Garland Kohli PAP ACOG PANEL 2: 21 to 29on 01-23-2022 . . [facility] Comment on above: Performed By: #### [id number] #### [facility] [address] [place] [address] Dr. Garland Kohli Age Gdln ACOG Testing [facility] Comment on above: Performed By: #### [id number] #### [facility] [address] [place] [address] Dr. Garland Kohli DIAGNOSIS: Comment [facility] Comment on above: Result Comment: NEGA TIVE FOR INTRAEPITHELIAL LESION OR MALIGNANCY. Performed By: #### [id number] #### [facility] [address] [place] [address] Dr. Garland Kohli Methodology: Comment [facility] Comment on above: Result Comment: This liquid based ThinPrep(R) pap test was screened with the use of an image guided system. Performed By: #### [id number] #### [facility] [address] [place] [address] Dr. Garland Kohli Note: Comment [facility] Comment on above: Result Comment: The Pap smear is a screening test designed to aid in the detection of premalignant and malignant conditions of the uterine cervix. It is not a diagnostic procedure and should not be used as the sole means of detecting cervical cancer. Both false-positive and false-negative reports do occur. . Performed By: #### [id number] #### [facility] [address] [place] [address] Dr. Garland Kohli Performed by: Comment [facility] Comment on above: Result Comment: Kelly Arreguin, Celery Tier (ASCP) Performed By: #### [id number] #### [facility] [facility] [address] [place] [address] Dr. Garland Kohli Reflex Criteria: Comment Normal [facility] Comment on above: Result Comment: The HPV DNA reflex criteria were not met with this specimen result therefore, no HPV testing was performed. . Performed By: #### [id number] #### [facility] [address] [place] [address] Dr. Garland Kohli Specimen adequacy: Comment Normal [facility] Comment on above: Result Comment: Sati sfactory for evaluation. No endocervical component is identified. Performed By: #### [id number] #### [facility] [address] [place] [address] Dr. Garland Kohli CHLAMYDIA/GONOCOCCUS JUAN (SW AB/URINE/PAPon 01-20-2022 Chlamydia trachomatis, JUAN Negative Normal Negative [facility] Comment on above: Performed By: #### C BC #### [facility] [address] [place] [address] Dr. Garland Kohli Neisseria gonorrhoeae, JUAN Negative Normal Negative [facility] Comment on above: Performed By: #### C BC #### [facility] [address] [place] [address] Dr. Garland Kohli TSHon 01-04-2022 TSH 1.707 uIU/mL Normal 0.358-3.740 [facility] Comment on above: Performed By: #### G TT3P #### [facility] [address] [place] [address] Dr. Garland Kohli HEPATITIS C VIRUS AB W/ REFL EX QUANTon 12-17-2021 HCV AB <0.1 Normal 0.0-0.9 [facility] Comment on above: Performed By: #### G TT3P #### [facility] [address] [place] [address] Dr. Garland Kohli Interpretation: Comment Normal [facility] Comment on above: Result Comment: Nega tive Not infected with HCV, unless recent infection is suspected or other evidence exists to indicate HCV infection. Performed By: #### G TT3P #### [facility] [address] [place] [address] Dr. Garland Kohli CULTURE URINEon 12-15-2021 CULTURE URINE Culture Observations : GREATER THAN TWO ORGANISMS PRESENT. PLEASE RESUBMIT CLEAN CATCH MID-STREAM URINE IF CLINICALLY INDICATED. Normal [facility] Comment on above: Performed By: #### U RCX #### [facility] [address] [place] [address] Dr. Garland Kohli HEP B SURFACE ANTIGEN SCREEN on 12-15-2021 HBsAg Screen Negative Normal Negative [facility] Comment on above: Performed By: #### H BSANS #### [facility] [address] [place] [address] Dr. Garland Kohli HIV 1 AND 2 WITH REFLEXon HIV Screen 4th Generation wRfx Non-Reactive Normal Non Reactive [facility] Comment on above: Result Comment: HIV Negative HIV-1/HIV-2 antibodies and HIV-1 p24 antigen were NOT detected. There is no laboratory evidence of HIV infection. Performed By: #### H IV12 #### [facility] [address] [place] [address] Dr. Garland Kohli RPR QUANTon 12-15-2021 Rapid Plasma Reagin, Quant Non-Reactive Normal NonRea<1:1 [facility] Comment on above: Result Comment: Plea se Note: This test does not meet current guidelines for screening and diagnosis of syphilis. This test is intended for following treatment response in patients being treated for syphilis infection. To screen for syphilis infection, a reflex cascade that includes both RPR and a treponema-specific assay should be utilized, such as Treponema pallidum (Syphilis) Screening [place] (732867) or Rapid Plasma Reagin (RPR) Test With Reflex to Quantitative RPR and Confirmatory Treponema pallidum Antibodies (808335). Performed By: #### G TT3P #### [facility] [address] [place] [address] Dr. Garland Kohli RUBELLA AB IGGon 12-15-2021 Rubella Antibodies, IgG 4.72 index Normal Immune >0.99 [facility] Comment on above: Result Comment: Non- immune <0.90 Equivocal 0.90 - 0.99 Immune >0.99 Performed By: #### G TT3P #### [facility] [address] [address] [address] Garland Kohli CBC AUTO DIFFon 12-14-2021 BASO # 0.0 103/ul Normal 0.0-0.1 [facility] Comment on above: Performed By: #### C BC #### [facility] [address] [address] [address] Garland Kohli Basophils/100 WBC (Bld) 0.3 % Normal 0.2-2.0 [facility] Comment on above: Performed By: #### C BC #### [facility] [address] [place] [address] Dr. Garland Kohli EO # 0.1 103/ul Normal 0.0-0.7 [facility] Comment on above: Performed By: #### C BC #### [facility] [address] [place] [address] Dr. Garland Kohli Eosinophils/100 WBC (Bld) 0.8 % Critically low 0.9-7.0 [facility] Comment on above: Performed By: #### C BC #### [facility] [address] [place] [address] Dr. Garland Kohli Erythrocyte distribution width (RBC) [Ratio] 12.6 % Normal 11.0-15.0 [facility] Comment on above: Performed By: #### C BC #### [facility] [address] [place] [address] Dr. Garland Kohli Hematocrit (Bld) [Volume fraction] 34.3 % Critically low 36.0-48.0 [facility] Comment on above: Performed By: #### C BC #### [facility] [address] [place] [address] Dr. Garland Kohli Hemoglobin (Bld) [Mass/Vol] 11.7 g/dL Critically low 12.0-16.0 [facility] Comment on above: Performed By: #### C BC #### [facility] [address] [place] [address] Dr. Garland Kohli IG # 0.03 10e3/ul Normal 0.00-0.03 [facility] Comment on above: Performed By: #### C BC #### [facility] [address] [place] [address] Dr. Garland Kohli IG % 0.4 % Normal 0.0-0.5 [facility] Comment on above: Performed By: #### C BC #### [facility] [address] [place] [address] Dr. Garland Kohli LYMPH # 1.5 103/ul Normal 1.2-3.8 [facility] Comment on above: Performed By: #### C BC #### [facility] [address] [place] [address] Dr. Garland Kohli Lymphocytes/100 WBC (Bld) 21.1 % Normal 20.5-60.0 [facility] Comment on above: Performed By: #### C BC #### [facility] [address] [place] [address] Dr. Garland Kohli MANUAL DIFF REQ NO Normal [facility] Comment on above: Performed By: #### C BC #### [facility] [address] [place] [address] Dr. Garland Kohli MCH (RBC) [Entitic mass] 30.5 pg Normal 26.7-34.0 [facility] Comment on above: Performed By: #### C BC #### [facility] [address] [place] [address] Dr. Garland Kohli MCHC (RBC) [Mass/Vol] 34.1 g/dL Normal 29.9-35.2 [facility] Comment on above: Performed By: #### C BC #### [facility] [address] [place] [address] Dr. Garland Kohli MCV (RBC) [Entitic vol] 89.6 fL Normal 81.0-99.0 [facility] Comment on above: Performed By: #### C BC #### [facility] [address] [place] [address] Dr. Garland Kohli MONO # 0.5 103/ul Normal 0.3-0.8 [facility] Comment on above: Performed By: #### C BC #### [facility] [address] [address] [address] Garland Kohli Monocytes/100 WBC (Bld) 7.1 % Normal 1.7-12.0 [facility] Comment on above: Performed By: #### C BC #### [facility] [address] [address] [address] Garland Kohli NEUT # 5.0 103/ul Normal 1.4-6.5 [facility] Comment on above: Performed By: #### C BC #### [facility] [address] [address] [address] Garland Kohli Neutrophils/100 WBC (Bld) 70.3 % Normal 43.0-75.0 [facility] Comment on above: Performed By: #### C BC #### [facility] [address] [place] [address] Dr. Garland Kohli Platelet mean volume (Bld) [Entitic vol] 10.1 fL Normal 9.5-13.5 [facility] Comment on above: Performed By: #### C BC #### [facility] [address] [place] [address] Dr. Garland Kohli PLT 234 103/ul Normal 150-450 [facility] Comment on above: Performed By: #### C BC #### [facility] [address] [place] [address] Dr. Garland Kohli RBC 3.83 106/ul Critically low 4.20-5.40 [facility] Comment on above: Performed By: #### C BC #### [facility] [address] [place] [address] Dr. Garlnad Kohli WBC 7.1 103/ul Normal 4.0-11.0 [facility] Comment on above: Performed By: #### C BC #### [facility] [address] [place] [address] Dr. Garland Kohli GLYCOHEMOGLOBIN A1Con 2021 ADA RECOMMENDATION SEE BELOW Normal [facility] Comment on above: Result Comment: ADA RECOMMENDED LIMIT 4.0 - 6.0 ADA THERAPEUTIC TARGET < 7.0 ACTION SUGGESTED > 7.0 Performed By: #### A 1C #### [facility] [address] [address] [address] Garland Kohli Glucose [Mass/Vol] 103 mg/dL Normal [facility] Comment on above: Performed By: #### A 1C #### [facility] [address] [address] [address] Garland Kohli HbA1c (Bld) [Mass fraction] 5.2 % Normal 4.5-6.2 [facility] Comment on above: Performed By: #### A 1C #### [facility] [address] [address] [address] Garland Kohli MARTÍNEZ BOX TEST PT SEND OUTo n 12-14-2021 SENT TO REF LAB 12/14/21 Normal [facility] Comment on above: Performed By: #### G TT3P #### [facility] [address] [place] [address] Dr. Garland Kohli TYPE AND SCREENon 12-14-2021 TYPE AND SCREEN Negative Normal [facility] Comment on above: Performed By: #### C BC #### [facility] [address] [place] [address] Dr. Garland Kohli US PREG TVon 11-26-2021 [...] by: YAAKOV TERAN Date: 2021-11-26 18:36 Normal [facility] OPERATIVE REPORTon 9 OPERATIVE REPORT [facility] [address] [place] [id number] OPERATIVE REPORT PATIENT NAME: CECELIA JOHNSON : 1995 MED REC NO: [id number] ROOM: ACCOUNT NO: [id number] ADMIT DATE: 11/24/2018 PROVIDER: Mode Renee DATE [...] infiltrated into the drains, this was for chcf pain control. Steri-Strips applied throughout and then bulky gauze dressing as well as surgical bra was applied. The patient was awoken, extubated, and transported to the recovery room in stable condition. Sponge, needle, and instrument counts were reported correct x2 at the end of the case. MODE RENEE /Natalio_OPSAJ_T Doc#: [id number] CC: Carlos Alberto Coleman [facility] Surgical Pathologyon 019 Surgical Pathology (NOTE) [id number] [facility] [address] [place], [place] [address] SURGICAL PATHOLOGY REPORT Patient Name: CECELIA JOHNSON MR#: [id number] Specimen #[id number] Final Diagnosis SPECIMEN A : BREAST AND [...] The entire specimen weighs 453 grams. Multiple site safety representative sections are submitted in five cassettes [...] also sampled in multiple different areas and site safety representative sections are submitted in five cassettes for microscopic examination. Microscopic Description Specimen A : Five RICHARD glass slides are received. Microscopic examination is performed. Specimen B : Five RICHARD glass slides are received. Microscopic examination is performed. Normal [facility] Comment on above: Performed By: #### P PPES #### [facility] [address] [place] [address] Host Hostess: Victor Manuel Hunter DO CNOVSColton 11-18-2018 CNOVSP Visit (SP) Office (HEMAS[place]) CECELIA JOHNSON ([id number]) 1995 F Date Time Provider Department 11/18/18 1:00 PM JAZ MOULTON) KATHARINE During your visit today, we recorded the following information about you: Temperature Pulse Respiration Blood pressure 97.9 degrees 82/minute 18/minute 122/78 Weight Height Last Period 82.7 kg 1.6 m 10/15/18 Jaz Moulton MD 11/18/2018 3:08 PM Signed PATIENT NAME: Cecelia Johnson CLINIC NO.: [id number] ATTENDING PHYSICIAN: Jaz Moulton MD DATE OF [...] file Gets together: Not on file Attends anabaptism service: Not on file Active member of [...] Jaz Moulton M.D. Hematology/Medical Oncology [facility] [phone] CC: Carlos Alberto Coleman MD - (Inactive), In Basket (Inactive) - User (Inactive) [address] [place] [phone] (Ph) Mode Renee MD Referring Provider: SELF [...] Nathan - Fully Assessed Visit Diagnosis:MTHFR mutation ([facility]) [E72.12] Prescriptions as of 11/18/2018 [...] Of Date 11/18/2018 Noted Resolved MTHFR mutation ([facility]) [E72.12] INVALID FOR* Encounter Status:Closed by JAZ MOULTON MD on 11/18/18 Normal [facility] PROGRESSon 11-18-2018 PROGRESS HNO ID: [id number] Author: Jaz Hill) Kenney Service: ? Author Type: Physician Type: Progress Notes Filed: 11/18/2018 3:08 PM Note Text: PATIENT NAME: Cecelia Johnson CLINIC NO.: [id number] ATTENDING PHYSICIAN: Jaz Moulton MD DATE OF [...] file Gets together: Not on file Attends anabaptism service: Not on file Active member of [...] number below. Jaz Moulton M.D. Hematology/Medical Oncology [address] [phone] CC: Carlos Alberto Coleman MD - (Inactive), In Basket (Inactive) - User (Inactive) [address] [phone] () Mode Renee MD Normal [facility] Basic Metabolic Profon 11-10 (cont.) Normal [facility] Comment on above: Result Comment: Aver age GFR for 20-29 years old: 116 mL/min/1.73sq m Chronic Kidney Disease: <60 mL/min/1.73sq m Kidney failure: <15 mL/min/1.73sq m eGFR calculated using average adult body mass. Additional eGFR calculator available at: http://www.[employer].Boloco/multiple_crcl_2011.htm Performed By: #### C FARAZ, BMP #### [facility] [address] [facility] [place] [address] Host Hostess: Victor Manuel Hunter DO Anion gap [Moles/Vol] 11 mmol/L Normal 9-17 [facility] Comment on above: Performed By: #### C FARAZ, BMP #### [facility] [address] [facility] [place], [place] [id number] Host Hostess: Victor Manuel Hunter DO Calcium [Mass/Vol] 9.7 mg/dL Normal 8.6-10.4 [facility] Comment on above: Performed By: #### C DP, BMP #### [facility] [address] [place] [address] Host Hostess: Victor Manuel Hunter DO Chloride [Moles/Vol] 102 mmol/L Normal 98-107 [facility] Comment on above: Performed By: #### C DP, BMP #### [facility] [address] [place] [address] Host Hostess: Victor Manuel Hunter DO CO2 [Moles/Vol] 26 mmol/L Normal 20-31 [facility] Comment on above: Performed By: #### C DP, BMP #### [facility] [place] [address] Host Hostess: Victor Manuel Hunter DO Creatinine [Mass/Vol] 0.49 mg/dL Low 0.50-0.90 [facility] Comment on above: Performed By: #### C DP, BMP #### [facility] [place] [address] Host Hostess: Victor Manuel Hunter DO GFR, Amer >60 Normal >60 [facility] Comment on above: Performed By: #### C DP, BMP #### [facility] [place] [address] Host Hostess: Victor Manuel Hunter DO GFR,non Amer >60 Normal >60 [facility] Comment on above: Performed By: #### C DP, BMP #### [facility] [address] [place], [place] [address] [place] [address] Host Hostess: Victor Manuel Hunter DO Glucose [Mass/Vol] 88 mg/dL Normal 70-99 [facility] Comment on above: Performed By: #### C DP, BMP #### [facility] [address] [place] [address] Host Hostess: Victor Manuel Hunter DO Potassium [Moles/Vol] 4.3 mmol/L Normal 3.7-5.3 [facility] Comment on above: Performed By: #### C DP, BMP #### [facility] [place] [address] Host Hostess: Victor Manuel Hunter DO Sodium [Moles/Vol] 139 mmol/L Normal 135-144 [facility] Comment on above: Performed By: #### C DP, BMP #### [facility] [address] [place] [address] Host Hostess: Victor Manuel Hunter DO Urea nitrogen [Mass/Vol] 8 mg/dL Normal 6-20 [facility] Comment on above: Performed By: #### C FARAZ, BMP #### [facility] [address] [place] [address] Host Hostess: Victor Manuel Hunter DO BUN/CRE Ratio NOT REPORTED Normal 9-20 [facility] Comment on above: Performed By: #### C FARAZ, BMP #### [facility] [place] [address] Host Hostess: Victor Manuel Hunter DO Staging: NOT REPORTED Normal [facility] Comment on above: Performed By: #### C DP, BMP #### [facility] [place] [address] Host Hostess: Victor Manuel Hunter DO CBC with Diffon 11-10-2018 Abs. Basophil 0.00 k/uL Normal 0.0-0.2 [facility] Comment on above: Performed By: #### C DP, BMP #### [facility] [place] [address] Host Hostess: Victor Manuel Hunter DO Abs.Neutrophil (Seg) 3.00 k/uL Normal 1.3-9.1 [facility] Comment on above: Performed By: #### C DP, BMP #### [facility] [address] [place] [address] Host Hostess: Victor Manuel Hunter DO Basophils/100 WBC (Bld) 0 % Normal 0-2 [facility] Comment on above: Performed By: #### C DP, BMP #### [facility] [place] [address] Host Hostess: Victor Manuel Hunter DO Eosinophils (Bld) [#/Vol] 0.10 10*3/uL Normal 0.0-0.4 [facility] Comment on above: Performed By: #### C DP, BMP #### [facility] [address] [place], [place] [address] [place] [address] Host Hostess: Victor Manuel Hunter DO Eosinophils/100 WBC (Bld) 1 % Normal 0-4 [facility] Comment on above: Performed By: #### C FARAZ, BMP #### [facility] [place] [address] Host Hostess: Victor Manuel Hunter DO Erythrocyte distribution width (RBC) [Ratio] 12.7 % Normal 11.5-14.9 [facility] Comment on above: Performed By: #### C DP, BMP #### [facility] [place] [address] Host Hostess: Victor Manuel Hunter DO Hematocrit (Bld) [Volume fraction] 42.3 % Normal 36-46 [facility] Comment on above: Performed By: #### C DP, BMP #### [facility] [place] [address] Host Hostess: Victor Manuel Hunter DO Hemoglobin (Bld) [Mass/Vol] 14.3 g/dL Normal 12.0-16.0 [facility] Comment on above: Performed By: #### C DP, BMP #### [facility] [place] [address] Host Hostess: Victor Manuel Hunter DO Lymphocytes (Bld) [#/Vol] 1.70 10*3/uL Normal 1.0-4.8 [facility] Comment on above: Performed By: #### C DP, BMP #### [facility] [address] [place] [address] Host Hostess: Victor Manuel Hunter DO Lymphocytes/100 WBC (Bld) 32 % Normal 24-44 [facility] Comment on above: Performed By: #### C FARAZ, BMP #### [facility] [address] [place] [address] Host Hostess: Victor Manuel Hunter DO MCH (RBC) [Entitic mass] 30.0 pg Normal 26-34 [facility] Comment on above: Performed By: #### C FARAZ, BMP #### [facility] [address] [place] [address] Host Hostess: Victor Manuel Hunter DO MCHC (RBC) [Mass/Vol] 33.7 g/dL Normal 31-37 [facility] Comment on above: Performed By: #### C DP, BMP #### [facility] [address] [place] [address] Host Hostess: Victor Manuel Hunter DO MCV (RBC) [Entitic vol] 89.0 fL Normal 80-100 [facility] Comment on above: Performed By: #### C DP, BMP #### [facility] [address] [place] [address] Host Hostess: Victor Manuel Hunter DO Monocytes (Bld) [#/Vol] 0.60 10*3/uL Normal 0.1-1.3 [facility] Comment on above: Performed By: #### C DP, BMP #### [facility] [address] [place] [address] Host Hostess: Victor Manuel Hunter DO Monocytes/100 WBC (Bld) 11 % High 1-7 [facility] Comment on above: Performed By: #### C DP, BMP #### [facility] [place] [address] Host Hostess: Victor Manuel Hunter DO Neutrophil (Seg) 56 % Normal 36-66 [facility] Comment on above: Performed By: #### C DP, BMP #### [facility] [place] [address] Host Hostess: Victor Manuel Hunter DO Platelet mean volume (Bld) [Entitic vol] 9.4 fL Normal 6.0-12.0 [facility] Comment on above: Performed By: #### C FARAZ, BMP #### [facility] [address] [place] [address] Host Hostess: Victor Manuel Hunter DO Platelets (Bld) [#/Vol] 252 10*3/uL Normal 150-450 [facility] Comment on above: Performed By: #### C DP, BMP #### [facility] [place] [address] Host Hostess: Victor Manuel Hunter DO RBC (Bld) [#/Vol] 4.75 10*6/uL Normal 4.0-5.2 [facility] Comment on above: Performed By: #### C DP, BMP #### [facility] [place] [address] Host Hostess: Victor Manuel Hunter DO WBC (Bld) [#/Vol] 5.3 10*3/uL Normal 3.5-11.0 [facility] Comment on above: Performed By: #### C DP, BMP #### [facility] [place] [address] Host Hostess: Victor Manuel Hunter DO Abs.Imm.Granulocyte NOT REPORTED Normal 0.00-0.30 [facility] Comment on above: Performed By: #### C DP, BMP #### [facility] [address] [place] [address] Host Hostess: Victor Manuel Hunter DO Auto Diff Performed NOT REPORTED Normal [facility] Comment on above: Performed By: #### C DP, BMP #### [facility] [address] [place] [address] Host Hostess: Victor Manuel Hunter DO Immature granulocytes (Bld) [#/Vol] NOT REPORTED Normal 0 [facility] Comment on above: Performed By: #### C DP, BMP #### [facility] [address] [place] [address] Host Hostess: Victor Manuel Hunter DO NRBC Automated NOT REPORTED Normal [facility] Comment on above: Performed By: #### C DP, BMP #### [facility] [address] [place] [id number] Host Hostess: Victor Manuel Hunter DO Platelets (Bld) [#/Vol] NOT REPORTED Normal [facility] Comment on above: Performed By: #### C DP, BMP #### [facility] [address] [place] [id number] Host Hostess: Victor Manuel Hunter DO RBC morphology finding Nom (Bld) NOT REPORTED Normal [facility] Comment on above: Performed By: #### C DP, BMP #### [facility] [address] [place] [id number] Host Hostess: Victor Manuel Hunter DO WBC Morphology NOT REPORTED Normal [facility] Comment on above: Performed By: #### C ROSA RUTH #### [facility] [address] [place] [address] Host Hostess: Victor Manuel Hunter DO Vital Signs Date Time Vital Sign Value Performing Clinician Facility 05-09-2024 16:07-0500 Body mass index (BMI) [Ratio] 32.61 kg/m2 Tori Pepe PA Work Phone: [facility] 05-09-2024 16:07-0500 Body weight 86.18 kg Tori Talbotey PA Work Phone: [facility] 05-09-2024 16:07-0500 Diastolic blood pressure 82 mm[Hg] Tori Talbotey PA Work Phone: [facility] 05-09-2024 16:07-0500 Systolic blood pressure 120 mm[Hg] Tori Martensdale PA Work Phone: [facility] 05-03-2024 16:38-0500 Body height 162.6 cm Tori Warchol BLOOD DONOR UNIT ASSISTANT Work Phone: [facility] 05-03-2024 16:38-0500 Body mass index (BMI) [Ratio] 32.3 kg/m2 Tori Warchol BLOOD DONOR UNIT ASSISTANT Work Phone: [facility] 05-03-2024 16:38-0500 Body temperature 97.59 [degF] Tori Warchol BLOOD DONOR UNIT ASSISTANT Work Phone: [facility] 05-03-2024 16:38-0500 Body weight 85.37 kg Tori Warchol BLOOD DONOR UNIT ASSISTANT Work Phone: [facility] 05-03-2024 16:38-0500 Diastolic blood pressure 72 mm[Hg] Tori Warchol BLOOD DONOR UNIT ASSISTANT Work Phone: [facility] 05-03-2024 16:38-0500 Heart rate 93 /min Tori Warchol BLOOD DONOR UNIT ASSISTANT Work Phone: [facility] 05-03-2024 16:38-0500 SaO2% (BldA) [Mass fraction] 99 % Tori Kylee BLOOD DONOR UNIT ASSISTANT Work Phone: [facility] 05-03-2024 16:38-0500 Systolic blood pressure 124 mm[Hg] Tori Kylee BLOOD DONOR UNIT ASSISTANT Work Phone: [facility] 04-21-2024 08:49-0500 Body mass index (BMI) [Ratio] 32.06 kg/m2 Herber Nnamdi DO Work Phone: [facility] 04-21-2024 08:49-0500 Body weight 84.73 kg Herber Nnamdi DO Work Phone: [facility] 04-21-2024 08:49-0500 Diastolic blood pressure 72 mm[Hg] Herber Nnamdi DO Work Phone: [facility] 04-21-2024 08:49-0500 Systolic blood pressure 104 mm[Hg] Herber Nnamdi DO Work Phone: [facility] 04-13-2024 15:58-0500 Body mass index (BMI) [Ratio] 31.78 kg/m2 Tori Martensdale PA Work Phone: [facility] 04-13-2024 15:58-0500 Body weight 83.97 kg Tori Martensdale PA Work Phone: [facility] 04-13-2024 15:58-0500 Diastolic blood pressure 80 mm[Hg] Tori Dwight PA Work Phone: [facility] 04-13-2024 15:58-0500 Systolic blood pressure 120 mm[Hg] Tori Dwight PA Work Phone: [facility] 04-06-2024 16:29-0500 Body mass index (BMI) [Ratio] 31.65 kg/m2 Tori Dwight PA Work Phone: [facility] 04-06-2024 16:29-0500 Body weight 83.64 kg Tori Dwight PA Work Phone: [facility] 04-06-2024 16:29-0500 Diastolic blood pressure 74 mm[Hg] Tori Dwight PA Work Phone: [facility] 04-06-2024 16:29-0500 Systolic blood pressure 112 mm[Hg] Tori Pepe PA Work Phone: [facility] 03-09-2024 16:25-0500 Body mass index (BMI) [Ratio] 30.88 kg/m2 Tori Pepe PA Work Phone: [facility] 03-09-2024 16:25-0500 Body weight 81.6 kg Tori Dwight PA Work Phone: [facility] 03-09-2024 16:25-0500 Diastolic blood pressure 70 mm[Hg] Tori Pepe PA Work Phone: [facility] 03-09-2024 16:25-0500 Systolic blood pressure 114 mm[Hg] Tori Pepe PA Work Phone: [facility] 02-10-2024 14:44-0400 Body mass index (BMI) [Ratio] 29.39 kg/m2 Herber Nnamdi DO Work Phone: [facility] 02-10-2024 14:44-0400 Body weight 77.68 kg Herber Nnamdi DO Work Phone: [facility] 02-10-2024 14:44-0400 Diastolic blood pressure 68 mm[Hg] Herber Nnamdi DO Work Phone: [facility] 02-10-2024 14:44-0400 Systolic blood pressure 116 mm[Hg] Herber Nnamdi DO Work Phone: [facility] 01-11-2024 16:03-0400 Body mass index (BMI) [Ratio] 28.06 kg/m2 Herber Nnamdi DO Work Phone: [facility] 01-11-2024 16:03-0400 Body weight 74.16 kg Herber Nnamdi DO Work Phone: [facility] 01-11-2024 16:03-0400 Diastolic blood pressure 72 mm[Hg] Herber Nnamdi DO Work Phone: [facility] 01-11-2024 16:03-0400 Systolic blood pressure 118 mm[Hg] Herber Nnamdi DO Work Phone: [facility] 01-29-2022 02:06-0400 Body weight 67.[address] ZEN BREWER . [facility] Comment on above: Performed By: #### [id number] #### [facility] [address] [address] [address] Garland Kohli Encounters Encounter Date Encounter Type Care Provider Facility Start: 05-09-2024 End: 05-09-2024 flow sheet Tori SHIRLEY Work Phone: [facility] Comment on above: 32 weeks gestation o f ; Third trimester Start: 05-09-2024 End: 05-09-2024 ambulatory TORI PEPE Not Available Start: 05-09-2024 End: 05-09-2024 Bamboo flowsheet Tori Pepe PA Work Phone: [facility] Start: 05-09-2024 End: 05-09-2024 Bamboo flowsheet Tori Pepe PA Work Phone: [facility] Start: 05-03-2024 End: 05-03-2024 Office outpatient visit 25 minutes Tori Martinez BLOOD DONOR UNIT ASSISTANT Work Phone: [facility] Comment on above: Need for follow-up c are after discharge (Primary Dx) Start: 05-03-2024 End: 05-03-2024 ambulatory TORI MARTINEZ Not Available Start: 05-03-2024 End: 05-03-2024 Bamboo flowsheet Tori Martinez BLOOD DONOR UNIT ASSISTANT Work Phone: [facility] Start: 05-03-2024 End: 05-03-2024 Bamboo flowsheet Tori Martinez BLOOD DONOR UNIT ASSISTANT Work Phone: [facility] Start: 04-21-2024 End: 04-21-2024 Bamboo flowsheet Herber Nnamdi DO Work Phone: [facility] Start: 04-21-2024 End: 04-21-2024 Bamboo flowsheet Herber Nnamdi DO Work Phone: [facility] Start: 04-21-2024 End: 04-21-2024 ambulatory HERBER NNAMDI Not Available Start: 04-21-2024 End: 04-21-2024 flow sheet Herber Nnamdi DO Work Phone: [facility] Comment on above: 30 weeks gestation o f ; Third trimester Start: 04-13-2024 End: 04-13-2024 flow sheet Tori SHIRLEY Work Phone: [facility] Comment on above: 28 weeks gestation o f ; Second trimester ; Gestational diabetes mellitus (GDM), antepartum, gestational diabetes method of control unspecified; Anxiety, generalized (CMS/HCC); Nausea; Hypothyroidism, unspecified type (CMS/HCC) Start: 04-13-2024 End: 04-13-2024 ambulatory TORI PEPE Not Available Start: 04-13-2024 End: 04-13-2024 Bamboo flowsheet Tori SHIRLEY Work Phone: [facility] Start: 04-13-2024 End: 04-13-2024 Bamboo flowsheet Tori SHIRLEY Work Phone: [facility] Start: 04-06-2024 End: 04-06-2024 ambulatory TORI PEPE Not Available Start: 04-06-2024 End: 04-06-2024 flow sheet Tori SHIRLEY Work Phone: [facility] Comment on above: Second trimester pre gnancy; 27 weeks gestation of Start: 04-06-2024 End: 04-06-2024 Bamboo flowsheet Tori SHIRLEY Work Phone: [facility] Start: 04-06-2024 End: 04-06-2024 Bamboo flowsheet Tori SHIRLEY Work Phone: [facility] Start: 03-19-2024 End: 03-19-2024 Clinisync Result Encounter Tori SHIRLEY Work Phone: [facility] External Department Unsolicited Start: 03-19-2024 End: 03-19-2024 Clinisync Result Encounter Tori SHIRLEY Work Phone: [facility] External Department Unsolicited Start: 03-09-2024 End: 03-09-2024 ambulatory TORI PEPE Not Available Start: 03-09-2024 End: 03-09-2024 flow sheet Tori SHIRLEY Work Phone: [facility] Comment on above: Encounter for follow -up ultrasound of anatomy; Second trimester ; 23 weeks gestation of ; Hypothyroidism, unspecified type (CMS/HCC); Diabetes mellitus screening; Anxiety, generalized (CMS/HCC) Start: 03-09-2024 End: 03-09-2024 Bamboo flowsheet Tori SHIRLEY Work Phone: [facility] Start: 03-09-2024 End: 03-09-2024 Bamboo flowsheet Tori SHIRLEY Work Phone: [facility] Start: 02-10-2024 End: 02-10-2024 ambulatory HERBER NNAMDI Not Available Start: 02-10-2024 End: 02-10-2024 Bamboo flowsheet Herber Nnamdi DO Work Phone: [facility] Start: 02-10-2024 End: 02-17-2024 Bamboo flowsheet Herber Nnamdi DO Work Phone: [facility] Start: 02-10-2024 End: 02-17-2024 Clinisync Result Encounter Generic External Data Provider [facility] External Department Unsolicited Start: 02-10-2024 End: 02-10-2024 Patient encounter procedure Herber Nnamdi DO Work Phone: [facility] Healthcare Start: 02-10-2024 End: 02-10-2024 Periodic preventive med est patient 18-39 yrs Herber Nnamdi DO Work Phone: [facility] Comment on above: Well [...] procedure MD Carlos Alberto Coleman Work Phone: [facility] Start: 07-13-2023 End: 07-13-2023 ambulatory MD Carlos Alberto Coleman Work Phone: [facility] Work Phone: Start: 07-13-2023 End: 07-13-2023 ambulatory SOFIE R LAUSE Not Available Start: 06-02-2023 Refill Tori Martinez BLOOD DONOR UNIT ASSISTANT Work Phone: [facility] Comment on above: Attention [...] without abnormal findings DR ZEN BREWER . [facility] Start: 01-17-2022 End: 01-17-[address] ZEN BREWER . Facility:[facility] Start: 01-17-2022 End: 01-17-2022 Encounter for gynecological examination (general) (routine) without abnormal findings DR ZEN BREWER . Facility:[facility] Start: 01-04-2022 End: 01-05-2022 ambulatory ÁNGEL SINHA Facility:[facility] Start: 12-14-2021 End: 12-15-[address] ZEN BREWER . Facility:[facility] Start: 11-26-2021 End: 11-27-2021 ambulatory ÁNGEL SINHA Facility:[facility] Start: 11-24-2018 End: 11-24-2018 Patient encounter procedure [facility] Start: 11-10-2018 End: 11-15-2018 Patient encounter procedure [facility] Procedures Date Procedure Procedure Detail Performing Clinician [...] Start: 02-10-2024 IGP,APTIMA HPV,AGE GDLN [facility] DO Work Phone: Start: 02-10-2024 Microscopic observat ion [Identifier] in Cervix by Cyto stain Tori SHIRLEY Work Phone: Start: 02-10-2024 Cytp cerv/vag auto t hin layer prep mnl screen Tori SHIRLEY Work Phone: Start: 01-22-2024 ALL THYROID STIM HORMONE [facility] DO Work Phone: Start: 01-11-2024 Urnls dip stick/tabl et rgnt non-auto w[facility] Work Phone: Start: 07-13-2023 Respiratory Panel [...] [facility] [address] [place] [phone] Herber Coto, [address] [place] [address] [facility] Start: 05-09-2024 End: 05-09-2024 Patient encounter procedure [facility] Comment on above: Arrived Start: 05-03-2024 End: 05-03-2024 Patient encounter procedure 05/03/2024 4:40 PM EST Office Visit [facility] [address] [place] [address] Tori Martinez, BLOOD DONOR UNIT ASSISTANT [address] [place] [address] Need for follow-up care after discharge (Primary Dx) [facility] Comment on above: Need for follow-up c are after discharge (Primary Dx) Start: 04-21-2024 End: 04-21-2024 Patient encounter procedure 04/21/2024 8:30 AM EST Routine [facility] [address] [place] [phone] Herber oCto DO [address] [place] [address] [facility] Start: 04-13-2024 End: 04-13-2024 [...] PM EST Routine [facility] [address] [place] [phone] Tori Pepe, PA [address] [place] [address] [facility] Start: 04-03-2024 End: 03-04-2025 US for US OB INCOMPLETE ANATOMY Imaging Routine Encounter for follow-up ultrasound of anatomy Expected: 04/03/2024 (Approximate), Expires: 03/04/2025 [facility] Work Phone: Comment on above: Expected: 04/03/2024 (Approximate), Expires: 03/04/2025 Start: 03-09-2024 End: 03-09-2024 Patient encounter procedure 03/09/2024 3:50 PM EST Routine [facility] [address] [place] [phone] Tori Pepe PA [address] [place] [address] [facility] Start: 03-09-2024 End: 03-09-2025 CBC panel - Blood by Automated count CBC Lab Routine Diabetes mellitus screening Expected: 03/09/2024 (Approximate), Expires: 03/09/2025 [facility] Comment on above: Expected: 03/09/2024 (Approximate), Expires: 03/09/2025 Start: 03-09-2024 End: 03-09-2025 Measurement of glucose 1 hour after glucose challenge for glucose tolerance test Glucose tolerance, 1 hour Lab Routine Diabetes mellitus screening Expected: 03/09/2024 (Approximate), Expires: 03/09/2025 [facility] Comment on above: Expected: 03/09/2024 (Approximate), Expires: 03/09/2025 Start: 03-09-2024 End: 03-09-2025 US for US OB SCAN FOR GROWTH Imaging Routine Hypothyroidism, unspecified type (CMS/HCC) Expected: 03/09/2024 (Approximate), Expires: 03/09/2025 [facility] Comment on above: Expected: 03/09/2024 (Approximate), Expires: 03/09/2025 Start: 02-10-2024 End: 02-09-2025 Alpha fetoprotein, maternal Alpha fetoprotein, maternal Lab Routine Second trimester 19 weeks gestation of Expected: 02/10/2024 (Approximate), Expires: 02/09/2025 [facility] Comment on above: Expected: 02/10/2024 (Approximate), Expires: 02/09/2025 Start: 02-10-2024 End: 02-09-2025 US for US OB ANATOMY SINGLE W US OB CERVICAL LENGTH Imaging Routine Screening, , for anatomic survey Expected: 02/10/2024 (Approximate), Expires: 02/09/2025 [facility] Comment on above: Expected: 02/10/2024 (Approximate), Expires: 02/09/2025 Start: 02-10-2024 End: 02-10-2024 Patient encounter procedure 02/10/2024 1:50 PM EDT Routine [facility] [address] [place] [phone] Herber Coto, DO [address] [place], [place] [phone] [facility] Start: 01-11-2024 End: 01-11-2024 Patient encounter procedure 01/11/2024 3:50 PM EDT Routine [facility] [address] [place] [phone] Herber Coto, DO [address] [place] [address] Arrived [facility] Comment on above: Arrived Start: 12-27-2023 Influenza vaccination Influenza Vacc ine (#1) [facility] Start: 10-25-2023 Influenza vaccination Influenza Vacc ine (#1) [facility] Comment on above: Postponed from 12/26 (Patient Refused) Start: 10-25-2023 Screening for malign ant neoplasm of cervix [facility] Start: 07-17-2023 End: 07-17-2023 Patient encounter procedure 07/17/2023 8:00 AM EDT Office Visit [facility] [address] [place] [phone] Tori Martinez, HERRERA [address] [place] [address] [facility] Start: 2014 Screening for malign ant neoplasm of cervix Pap Smear [facility] CHLAMYDIA TRACHOMATI S (GENITO/STI) CHLAMYDIA TRACHOMATIS (GENITO/STI) Lab Routine Screen for STD (sexually transmitted disease) Vaginal discharge Ordered: 02/10/2024 [facility] Comment on above: Ordered: 02/10/2024 Cytology Cervical or vaginal smear or scraping study Pap Smear Pathology and Cytology Routine Well woman exam with routine gynecological exam Ordered: 02/10/2024 [facility] Comment on above: Ordered: 02/10/2024 Human papilloma viru s DNA [Presence] in Unspecified specimen by Probe with amplification HPV DNA probe, amplified Microbiology Routine Well woman exam with routine gynecological exam Ordered: 02/10/2024 [facility] Comment on above: Ordered: 02/10/2024 Neisseria gonorrhoea e DNA [Presence] in Unspecified specimen by JUAN with probe detection Neisseria gonorrhea DNA probe, direct Lab Routine Screen for STD (sexually transmitted disease) Vaginal discharge Ordered: 02/10/2024 [facility] Comment on above: Ordered: 02/10/2024 SURESWAB(R) ADVANCED VAGINITIS PLUS, TMA SURESWAB(R) ADVANCED VAGINITIS PLUS, TMA Pathology and Cytology Routine Screen for STD (sexually transmitted disease) Vaginal discharge Ordered: 02/10/2024 [facility] Work Phone: Comment on above: Ordered: 02/10/2024 Thyrotropin [Units/volume] in Serum or Plasma TSH Lab Routine Other specified hypothyroidism (CMS/HCC) Ordered: 01/11/2024 [facility] Work Phone: Comment on above: Ordered: 01/11/2024 Thyrotropin [Units/volume] in Serum or Plasma TSH Lab Routine Hypothyroidism, unspecified type (CMS/HCC) Ordered: 04/13/2024 [facility] Comment on above: Ordered: 04/13/2024 Immunizations Immunization Date Immunization Notes Care Provider Byron carlson 05-05-2015 tetanus toxoid, redu catherine diphtheria toxoid, and acellular pertussis vaccine, adsorbed Tori Gomezchol BLOOD DONOR UNIT ASSISTANT Work Phone: [facility] 02-14-2009 influenza, seasonal, injectable Tori Warchol BLOOD DONOR UNIT ASSISTANT Work Phone: [facility] 02-14-2009 influenza virus vacc ine, unspecified formulation Tori Jasonchol BLOOD DONOR UNIT ASSISTANT Work Phone: [facility] 12-12-2005 hepatitis A vaccine, unspecified formulation Tori Warchol BLOOD DONOR UNIT ASSISTANT Work Phone: [facility] 12-12-2005 tetanus toxoid, redu catherine diphtheria toxoid, and acellular pertussis vaccine, adsorbed Tori Warchol BLOOD DONOR UNIT ASSISTANT Work Phone: [facility] 11-19-1998 diphtheria, tetanus toxoids and acellular pertussis vaccine, unspecified formulation Tori Warchol BLOOD DONOR UNIT ASSISTANT Work Phone: [facility] 11-19-1998 measles, mumps and rubella virus vaccine Tori Warchol BLOOD DONOR UNIT ASSISTANT Work Phone: [facility] 11-19-1998 trivalent poliovirus vaccine, live, oral Tori Warchol BLOOD DONOR UNIT ASSISTANT Work Phone: [facility] 09-14-1995 diphtheria, tetanus toxoids and acellular pertussis vaccine, unspecified formulation Tori Warchol BLOOD DONOR UNIT ASSISTANT Work Phone: [facility] 09-14-1995 haemophilus influenz ae type b vaccine, conjugate unspecified formulation Tori Warchol BLOOD DONOR UNIT ASSISTANT Work Phone: [facility] 11-20-1994 DTP-Haemophilus influenzae type b conjugate vaccine Tori Warchol BLOOD DONOR UNIT ASSISTANT Work Phone: [facility] 11-20-1994 hepatitis B vaccine, pediatric or pediatric/adolescent dosage Tori Warchol BLOOD DONOR UNIT ASSISTANT Work Phone: [facility] 11-20-1994 measles, mumps and rubella virus vaccine Tori Warchol BLOOD DONOR UNIT ASSISTANT Work Phone: [facility] 11-20-1994 trivalent poliovirus vaccine, live, oral Tori Warchol BLOOD DONOR UNIT ASSISTANT Work Phone: [facility] 09-18-1994 DTP-Haemophilus influenzae type b conjugate vaccine Tori Warchol BLOOD DONOR UNIT ASSISTANT Work Phone: [facility] 09-18-1994 hepatitis B vaccine, pediatric or pediatric/adolescent dosage Tori Warchol BLOOD DONOR UNIT ASSISTANT Work Phone: [facility] 09-18-1994 trivalent poliovirus vaccine, live, oral Tori Warchol BLOOD DONOR UNIT ASSISTANT Work Phone: [facility] 1993 diphtheria, tetanus toxoids and pertussis vaccine Tori Warchol BLOOD DONOR UNIT ASSISTANT Work Phone: [facility] 1993 haemophilus influenz ae type b vaccine, conjugate unspecified formulation Tori Martinez BLOOD DONOR UNIT ASSISTANT Work Phone: [facility] 1993 hepatitis B vaccine, pediatric or pediatric/adolescent dosage Tori Martinez BLOOD DONOR UNIT ASSISTANT Work Phone: [facility] 1993 trivalent poliovirus vaccine, live, oral Tori Martinez BLOOD DONOR UNIT ASSISTANT Work Phone: [facility] Healthcare Payers Date Payer Category Payer Self-pay [id number] 2023 Medicaid [id number] 2022 Blue Cross Blue Shield [id number] [id number] 2022 Unknown BCBS BCBS xxxxxx [id number] 2022-Present [phone] [address] [place] [address] [id number] 2017 Private Health Insurance [id number] 1993 Unknown [id number] 2.16.840.1.507657.3.579.2.1 1993 Unknown [id number] 2.16.840.1.563407.3.579.2.1 1993 Unknown [id number] 2.16.840.1.132013.3.579.2.5 1993 Unknown [id number] 2.16.840.1.118092.3.579.2.5 93 1993 Unknown [id number] 2.16.840.1.378793.3.579.2.5 93 1993 Unknown [id number] 2.16.840.1.576021.3.579.2.5 93 1993 Unknown [id number] 2.16.840.1.884155.3.579.2.5 93 1993 Unknown [id number] 2.16.840.1.133004.3.579.2.5 93 1993 Unknown [id number] 2.16.840.1.193820.3.579.2.5 93 1993 Unknown [id number] 2.16.840.1.739637.3.579.2.5 93 1993 Unknown [id number] 2.16.840.1.499695.3.579.2.5 93 1993 Unknown [id number] 2.16.840.1.181254.3.579.2.5 93 1993 Unknown [id number] 2.16.840.1.269407.3.579.2.5 93 1993 Unknown [id number] 2.16.840.1.608755.3.579.2.5 93 1993 Unknown [id number] 2.16.840.1.154242.3.579.2.5 93 1993 Unknown [id number] 2.16.840.1.520244.3.579.2.5 93 1993 Unknown [id number] 2.16.840.1.907829.3.579.2.1 259 1993 Unknown [id number] 2.16.840.1.361703.3.579.2.1 259 1993 Unknown [id number] 2.16.840.1.483960.3.579.2.1 259 1993 Unknown [id number] 2.16.840.1.209399.3.579.2.1 259 1993 Unknown [id number] 2.16.840.1.830337.3.579.2.1 259 1993 Unknown [id number] 2.16.840.1.345195.3.579.2.1 259 1993 Unknown [id number] 2.16.840.1.453081.3.579.2.1 259 1993 Unknown [id number] 2.16.840.1.254926.3.579.2.1 259 1993 Unknown [id number] 2.16.840.1.536538.3.579.2.1 259 1993 Unknown [id number] 2.16.840.1.377075.3.579.2.1 259 1993 Unknown [id number] 2.16.840.1.793401.3.579.2.1 259 1993 Unknown [id number] 2.16.840.1.962443.3.579.2.1 259 1959 Self-pay [id number] 1959 Unknown [id number] 1959 Unknown [id number] 1959 Unknown [id number] Unknown [id number] 2.16.840.1.378411.3.579.2.5 93 Unknown HCAP/HFA/FAP Active [id number] Unknown [id number] 2.16.840.1.637325.3.579.2.5 31 Social History Date Type Detail Facility Start: 08-27-2016 End: 09-25-2022 Tobacco smoking status [facility] Never smoked tobacco [facility] Health care Start: 09-25-2022 Tobacco [...] a typical day? Patient does not drink [facility] Healthcare How often do you hav e 6 or more drinks on 1 occasion? Never [facility] Start: 1995 Sex Assigned At Female [facility] Start: 09-24-2022 Gender identity Identifies as female gender (finding) [facility] Start: 10-08-2023 [facility] Healt hcare Start: 05-03-2024 End: 05-09-2024 Alcoholic beverage intake Ex-drinker (finding) [facility] Medical Equipment Procedure Code Equipment Code Equipment Origin al Text Equipment Identifier Dates 1 strip by In Vi tro route Daily Use in the morning prior to breakfast, 1 hour after each meal for a total of 4times daily. [id number] Start: 03-21-2024 End: 04-20-2024 1 each by In Vit ro route Daily Use to check FSBS four times daily [id number] Start: 03-21-2024 End: 04-20-2024 Clinical Notes 06-02-2023 [...] esophagitis 09/01/2022 Moderate persistent asthma without complication ([facility] 09/01/2022 Hypothyroidism, unspecified ([facility]) 03/02/2020 Moderate asthma ([facility] 01/11/2024 30 weeks gestation of 04/21/2024 Third trimester 04/21/2024 Resolved Ambulatory Problems Diagnosis Date Noted Acquired hypothyroidism ([facility]) 09/01/2022 Allergic rhinitis 09/01/2022 Amenorrhea 09/01/2022 Asthma without status asthmaticus ([facility]) 09/01/2022 Attention deficit hyperactivity disorder ([facility]) 09/01/2022 Asthma affecting , antepartum ([facility]) 09/01/2022 Binge eating disorder 09/01/2022 Difficulty concentrating 09/01/2022 Irregular menstrual cycle 09/01/2022 Left sided sciatica 09/01/2022 Insomnia 09/01/2022 Migraines ([facility]) 09/01/2022 Metallic taste 09/01/2022 Mild persistent asthma without complication ([facility]) 09/01/2022 MTHFR mutation 09/01/2022 Nondependent cannabis abuse 09/01/2022 Other chronic pain 09/01/2022 Seasonal allergies 09/01/2022 Skin sensation disturbance 09/01/2022 Transitory mood disturbance 09/01/2022 Verruca plantaris 09/01/2022 Past Medical History: Diagnosis Date Acid reflux ADHD (attention deficit hyperactivity disorder) ([facility]) Asthma ([facility]) GERD (gastroesophageal reflux disease) Hypothyroid ([facility]) Lactose intolerance Marijuana use Migraine ([facility]) Mild persistent asthma, uncomplicated ([facility]) Supervision of normal Thyroid disease ([facility]) HISTORY PAST MEDICAL HISTORY SOCIAL HISTORY Past Medical History: Diagnosis Date Acid reflux ADHD (attention deficit hyperactivity disorder) ([facility] Asthma ([facility]) Asthma affecting , antepartum ([facility]) GERD (gastroesophageal reflux disease) Hypothyroid ([facility]) Lactose intolerance Marijuana use Migraine ([facility]) Mild persistent asthma, uncomplicated ([facility]) MTHFR mutation Seasonal allergies Supervision of normal Thyroid disease ([facility]) Social History Tobacco Use Smoking [...] of: FERN Luis documented in this encounter [facility] 05-03-2024 History of Presen t illness Narrative [...] each, Rfl: 3 Blood Glucose Monitoring Suppl ([employer] Glucometer) w/Device kit, 1 kit Daily Use [...] not improve . documented in this encounter [facility] 05-03-2024 Instructions Tori Martinez NP - 05/03/2024 4:40 PM EST PATIENT EDUCATION: ER follow-up The patient was seen today in follow-up of recent hospital ER/UC visit. All available records/labs/diagnostics were reviewed and discussed with the patient. ER/UC discharge meds were reviewed. Any changes to plan are noted above. documented in this encounter [facility] 04-21-2024 History of Presen t illness Narrative [...] to check FSBS. Blood Glucose Monitoring Suppl ([employer] Glucometer) w/Device kit 1 kit, Does not [...] esophagitis 09/01/2022 Moderate persistent asthma without complication ([facility]) 09/01/2022 Hypothyroidism, unspecified ([facility]) 03/02/2020 Moderate asthma ([facility]) 01/11/2024 30 weeks gestation of 04/21/2024 Third trimester 04/21/2024 Resolved Ambulatory Problems Diagnosis Date Noted Acquired hypothyroidism ([facility]) 09/01/2022 Allergic rhinitis 09/01/2022 Amenorrhea 09/01/2022 Asthma without status asthmaticus ([facility]) 09/01/2022 Attention deficit hyperactivity disorder ([facility]) 09/01/2022 Asthma affecting , antepartum ([facility]) 09/01/2022 Binge eating disorder 09/01/2022 Difficulty concentrating 09/01/2022 Irregular menstrual cycle 09/01/2022 Left sided sciatica 09/01/2022 Insomnia 09/01/2022 Migraines ([facility]) 09/01/2022 Metallic taste 09/01/2022 Mild persistent asthma without complication ([facility]) 09/01/2022 MTHFR mutation 09/01/2022 Nondependent cannabis abuse 09/01/2022 Other chronic pain 09/01/2022 Seasonal allergies 09/01/2022 Skin sensation disturbance 09/01/2022 Transitory mood disturbance 09/01/2022 Verruca plantaris 09/01/2022 Past Medical History: Diagnosis Date Acid reflux ADHD (attention deficit hyperactivity disorder) ([facility]) Asthma ([facility]) GERD (gastroesophageal reflux disease) Hypothyroid ([facility]) Lactose intolerance Marijuana use Migraine ([facility]) Mild persistent asthma, uncomplicated ([facility]) Supervision of normal Thyroid disease ([facility]) HISTORY PAST MEDICAL HISTORY SOCIAL HISTORY Past Medical History: Diagnosis Date Acid reflux ADHD (attention deficit hyperactivity disorder) ([facility] Asthma ([facility]) Asthma affecting , antepartum ([facility]) GERD (gastroesophageal reflux disease) Hypothyroid ([facility]) Lactose intolerance Marijuana use Migraine ([facility]) Mild persistent asthma, uncomplicated ([facility]) MTHFR mutation Seasonal allergies Supervision of normal Thyroid disease ([facility]) Social History Tobacco Use Smoking [...] nursing note reviewed. Exam conducted with a change house attendant present. Vitals: Estimated body mass index is [...] Herber Coto DO documented in this encounter [facility] 04-13-2024 History of Presen t illness Narrative [...] to check FSBS. Blood Glucose Monitoring Suppl ([employer] Glucometer) w/Device kit 1 kit, Does not [...] esophagitis 09/01/2022 Moderate persistent asthma without complication ([facility] 09/01/2022 Hypothyroidism, unspecified ([facility]) 03/02/2020 Moderate asthma ([facility]) 01/11/2024 Resolved Ambulatory Problems Diagnosis Date Noted Acquired hypothyroidism ([facility]) 09/01/2022 Allergic rhinitis 09/01/2022 Amenorrhea 09/01/2022 Asthma without status asthmaticus ([facility]) 09/01/2022 Attention deficit hyperactivity disorder ([facility]) 09/01/2022 Asthma affecting , antepartum ([facility]) 09/01/2022 Binge eating disorder 09/01/2022 Difficulty concentrating 09/01/2022 Irregular menstrual cycle 09/01/2022 Left sided sciatica 09/01/2022 Insomnia 09/01/2022 Migraines ([facility]) 09/01/2022 Metallic taste 09/01/2022 Mild persistent asthma without complication ([facility]) 09/01/2022 MTHFR mutation 09/01/2022 Nondependent cannabis abuse 09/01/2022 Other chronic pain 09/01/2022 Seasonal allergies 09/01/2022 Skin sensation disturbance 09/01/2022 Transitory mood disturbance 09/01/2022 Verruca plantaris 09/01/2022 Past Medical History: Diagnosis Date Acid reflux ADHD (attention deficit hyperactivity disorder) ([facility]) Asthma ([facility]) GERD (gastroesophageal reflux disease) Hypothyroid ([facility]) Lactose intolerance Marijuana use Migraine ([facility]) Mild persistent asthma, uncomplicated ([facility]) Supervision of normal Thyroid disease ([facility]) HISTORY PAST MEDICAL HISTORY SOCIAL HISTORY Past Medical History: Diagnosis Date Acid reflux ADHD (attention deficit hyperactivity disorder) ([facility]) Asthma ([facility]) Asthma affecting , antepartum ([facility]) GERD (gastroesophageal reflux disease) Hypothyroid ([facility]) Lactose intolerance Marijuana use Migraine ([facility]) Mild persistent asthma, uncomplicated ([facility]) MTHFR mutation Seasonal allergies Supervision of normal Thyroid disease ([facility]) Social History Tobacco Use Smoking [...] of: FERN Luis documented in this encounter [facility] 04-06-2024 History of Presen t illness Narrative [...] tablet As directed Blood Glucose Monitoring Suppl ([employer] Glucometer) w/Device kit 1 kit, Does not [...] esophagitis 09/01/2022 Moderate persistent asthma without complication ([facility] 09/01/2022 Hypothyroidism, unspecified ([facility]) 03/02/2020 Moderate asthma ([facility]) 01/11/2024 Resolved Ambulatory Problems Diagnosis Date Noted Acquired hypothyroidism ([facility]) 09/01/2022 Allergic rhinitis 09/01/2022 Amenorrhea 09/01/2022 Asthma without status asthmaticus ([facility]) 09/01/2022 Attention deficit hyperactivity disorder ([facility]) 09/01/2022 Asthma affecting , antepartum ([facility]) 09/01/2022 Binge eating disorder 09/01/2022 Difficulty concentrating 09/01/2022 Irregular menstrual cycle 09/01/2022 Left sided sciatica 09/01/2022 Insomnia 09/01/2022 Migraines ([facility]) 09/01/2022 Metallic taste 09/01/2022 Mild persistent asthma without complication ([facility]) 09/01/2022 MTHFR mutation 09/01/2022 Nondependent cannabis abuse 09/01/2022 Other chronic pain 09/01/2022 Seasonal allergies 09/01/2022 Skin sensation disturbance 09/01/2022 Transitory mood disturbance 09/01/2022 Verruca plantaris 09/01/2022 Past Medical History: Diagnosis Date Acid reflux ADHD (attention deficit hyperactivity disorder) ([facility]) Asthma ([facility]) GERD (gastroesophageal reflux disease) Hypothyroid ([facility]) Lactose intolerance Marijuana use Migraine ([facility]) Mild persistent asthma, uncomplicated ([facility]) Supervision of normal Thyroid disease ([facility]) HISTORY PAST MEDICAL HISTORY SOCIAL HISTORY Past Medical History: Diagnosis Date Acid reflux ADHD (attention deficit hyperactivity disorder) ([facility]) Asthma ([facility]) Asthma affecting , antepartum (CMS/[facility]CC) GERD (gastroesophageal [...] of: FERN Luis documented in this encounter [facility] 03-09-2024 History of Presen t illness Narrative [...] esophagitis 09/01/2022 Moderate persistent asthma without complication ([facility] 09/01/2022 Hypothyroidism, unspecified ([facility]) 03/02/2020 Moderate asthma ([facility]) 01/11/2024 Resolved Ambulatory Problems Diagnosis Date Noted Acquired hypothyroidism ([facility]) 09/01/2022 Allergic rhinitis 09/01/2022 Amenorrhea 09/01/2022 Asthma without status asthmaticus ([facility]) 09/01/2022 Attention deficit hyperactivity disorder ([facility]) 09/01/2022 Asthma affecting , antepartum ([facility]) 09/01/2022 Binge eating disorder 09/01/2022 Difficulty concentrating 09/01/2022 Irregular menstrual cycle 09/01/2022 Left sided sciatica 09/01/2022 Insomnia 09/01/2022 Migraines ([facility]) 09/01/2022 Metallic taste 09/01/2022 Mild persistent asthma without complication ([facility]) 09/01/2022 MTHFR mutation 09/01/2022 Nondependent cannabis abuse 09/01/2022 Other chronic pain 09/01/2022 Seasonal allergies 09/01/2022 Skin sensation disturbance 09/01/2022 Transitory mood disturbance 09/01/2022 Verruca plantaris 09/01/2022 Past Medical History: Diagnosis Date Acid reflux ADHD (attention deficit hyperactivity disorder) ([facility]) Asthma ([facility]) GERD (gastroesophageal reflux disease) Hypothyroid ([facility]) Lactose intolerance Marijuana use Migraine ([facility]) Mild persistent asthma, uncomplicated ([facility]) Supervision of normal Thyroid disease ([facility]) HISTORY PAST MEDICAL HISTORY SOCIAL HISTORY Past Medical History: Diagnosis Date Acid reflux ADHD (attention deficit hyperactivity disorder) ([facility]) Asthma ([facility]) Asthma affecting , antepartum ([facility]) GERD (gastroesophageal reflux disease) Hypothyroid ([facility]) Lactose intolerance Marijuana use Migraine ([facility]) Mild persistent asthma, uncomplicated ([facility]) MTHFR mutation Seasonal allergies Supervision of normal Thyroid disease ([facility]) Social History Tobacco Use Smoking [...] of: FERN Luis documented in this encounter [facility] 03-09-2024 Miscellaneous Notes Addended by: NIALL CONSTANTINO on: 03/10/2024 09:01 AM Modules accepted: Orders documented in this encounter [facility] 03-09-2024 Note Addended by: NIALL CLEVELAND on: 03/10/2024 09:01 AM Modules accepted: Orders [facility] 03-09-2024 Note Addended by: NIALL CLEVELAND on: 03/10/2024 09:01 AM Modules accepted: Orders [facility] 02-10-2024 History of Presen t [...] esophagitis 09/01/2022 Moderate persistent asthma without complication ([facility] 09/01/2022 Hypothyroidism, unspecified ([facility]) 03/02/2020 Moderate asthma ([facility]) 01/11/2024 Resolved Ambulatory Problems Diagnosis Date Noted Acquired hypothyroidism ([facility]) 09/01/2022 Allergic rhinitis 09/01/2022 Amenorrhea 09/01/2022 Asthma without status asthmaticus ([facility] 09/01/2022 Attention deficit hyperactivity disorder ([facility]) 09/01/2022 Asthma affecting , antepartum ([facility]) 09/01/2022 Binge eating disorder 09/01/2022 Difficulty concentrating 09/01/2022 Irregular menstrual cycle 09/01/2022 Left sided sciatica 09/01/2022 Insomnia 09/01/2022 Migraines ([facility]) 09/01/2022 Metallic taste 09/01/2022 Mild persistent asthma without complication ([facility]) 09/01/2022 MTHFR mutation 09/01/2022 Nondependent cannabis abuse 09/01/2022 Other chronic pain 09/01/2022 Seasonal allergies 09/01/2022 Skin sensation disturbance 09/01/2022 Transitory mood disturbance 09/01/2022 Verruca plantaris 09/01/2022 Past Medical History: Diagnosis Date Acid reflux ADHD (attention deficit hyperactivity disorder) ([facility]) Asthma ([facility]) GERD (gastroesophageal reflux disease) Hypothyroid ([facility]) Lactose intolerance Marijuana use Migraine ([facility]) Mild persistent asthma, uncomplicated ([facility]) Supervision of normal Thyroid disease ([facility]) HISTORY PAST MEDICAL HISTORY SOCIAL HISTORY Past Medical History: Diagnosis Date Acid reflux ADHD (attention deficit hyperactivity disorder) ([facility]) Asthma ([facility]) Asthma affecting , antepartum ([facility]) GERD (gastroesophageal reflux disease) Hypothyroid ([facility]) Lactose intolerance Marijuana use Migraine ([facility]) Mild persistent asthma, uncomplicated ([facility]) MTHFR mutation Seasonal allergies Supervision of normal Thyroid disease ([facility]) Social History Tobacco Use Smoking [...] Herber Coto DO documented in this encounter [facility] 01-11-2024 History of Presen t illness Narrative [...] esophagitis 09/01/2022 Moderate persistent asthma without complication ([facility] 09/01/2022 Hypothyroidism, unspecified ([facility]) 03/02/2020 Resolved Ambulatory Problems Diagnosis Date Noted Acquired hypothyroidism ([facility]) 09/01/2022 Allergic rhinitis 09/01/2022 Amenorrhea 09/01/2022 Asthma without status asthmaticus ([facility]) 09/01/2022 Attention deficit hyperactivity disorder ([facility]) 09/01/2022 Asthma affecting , antepartum ([facility]) 09/01/2022 Binge eating disorder ([facility]) 09/01/2022 Difficulty concentrating 09/01/2022 Irregular menstrual cycle 09/01/2022 Left sided sciatica 09/01/2022 Insomnia 09/01/2022 Migraines ([facility]) 09/01/2022 Metallic taste 09/01/2022 Mild persistent asthma without complication (CMS/HCC) 09/01/2022 MTHFR mutation 09/01/2022 Nondependent cannabis abuse 09/01/2022 Other chronic pain 09/01/2022 Seasonal allergies 09/01/2022 Skin sensation disturbance 09/01/2022 Transitory mood disturbance 09/01/2022 Verruca plantaris 09/01/2022 Past Medical History: Diagnosis Date Acid reflux ADHD (attention deficit hyperactivity disorder) ([facility]) Asthma ([facility]) GERD (gastroesophageal reflux disease) Hypothyroid ([facility]) Lactose intolerance Marijuana use Migraine ([facility]) Mild persistent asthma, uncomplicated ([facility]) Supervision of normal Thyroid disease ([facility]) HISTORY PAST MEDICAL HISTORY SOCIAL HISTORY Past Medical History: Diagnosis Date Acid reflux ADHD (attention deficit hyperactivity disorder) ([facility]) Asthma ([facility]) Asthma affecting , antepartum ([facility]) GERD (gastroesophageal reflux disease) Hypothyroid ([facility]) Lactose intolerance Marijuana use Migraine ([facility]) Mild persistent asthma, uncomplicated ([facility]) MTHFR mutation Seasonal allergies Supervision of normal Thyroid disease ([facility]) Social History Tobacco Use Smoking [...] nursing note reviewed. Exam conducted with a change house attendant present. Vitals: Estimated body mass index is [...] or undercooked meat, and stay away from [facility]. Patient has been consulted regarding any further [...] done she will reach out to office. Tie Man will be notified at time of delivery [...] . Informed patient since she sees a [employer] Treater to schedule appointment to make sure asthma is controlled during . Patient is currently taking [employer] Chewable kids vitamins. Patient is taking 2 [...] Herber Coto DO documented in this encounter [facility] 06-04-2023 Telephone encount er Note Sent [facility] 06-04-2023 Miscellaneous Notes Formattin g of this note might be different from the original. Sent Patient requesting refill/[place] documented in this encounter [facility] 06-02-2023 Telephone encount er Note Patient requesting refill/[place] [facility] Evaluation note Diagnosis Attention deficit hyperactivity disorder (ADHD), combined type ([facility]) [facility] noteNo assessment information available[facility] Work Phone: Evaluation note* [...] section and content) DATE CREATED AUTHOR 11/18/2018 [facility] DATE CREATED AUTHOR AUTHOR'S ORGANIZ ATION 11/26/2018 [facility] DATE CREATED AUTHOR AUTHOR'S ORGANIZ ATION 09/09/2022 [facility] DATE CREATED AUTHOR AUTHOR'S ORGANIZ ATION 03/16/2024 [facility] DATE CREATED AUTHOR AUTHOR'S ORGANIZ ATION 05/13/2024 [facility] EPIC Reason for Visit (unrecogniz ed section and content) Reason Onset Date Comments Med Refill 06/02/2023 Reason Comments Routine Visit Care Teams (unrecognized sec tion and content) Churner Relationship Specialty Start Date End Date Carlos Alberto Coleman MD [address] [place] [address] PCP - General Family Medicine 09/24/22 Tori Martinez NP [address] [place] [id number] Nurse Practitioner Family Medicine 09/24/22 Sofie Gr NP [address] [place] [address] Nurse Practitioner Pulmonary Disease 04/14/23 Team Status: Active Member Role Status Dates Carlos Alberto Coleman MD Primary Care Provider Active Team Status: Inactive Member Role Status Dates Carlos Alberto Coleman MD Primary Care Provider Active S tart: July 13, 2023 End: July 13, 2023 Sofie Gr NP-C Attending Provider Active Start: July 13, 2023 End: July 13, 2023 Churner Relationship Specialty Start Date End Date Carlos Alberto Coleman MD [address] [place] [id number] PCP - General Family Medicine 09/24/22 Tori Martinez NP [address] [place] [address] PCP - [employer] 05/28/23 Tori Martinez NP [address] [place] [address] Nurse Practitioner Family Medicine 09/24/22 Sofie Gr NP [address] [place] [phone] Nurse Practitioner Pulmonary Disease 04/14/23 Churner Relationship Specialty Start Date End Date Carlos Alberto Coleman MD [address] [place] [address] PCP - General Family Medicine 09/24/22 Tori Martinez NP [address] [place] [address] PCP - [employer] 05/28/23 Tori Martinez NP [address] [place] [place] [address] Nurse Practitioner Family Medicine 09/24/22 Sofie Gr NP [address] [place] [place] [phone] Nurse Practitioner Pulmonary Disease 04/14/23 Churner Relationship Specialty Start Date End Date Carlos Alberto Coleman MD [address] [place] [address] PCP - General Family Medicine 09/24/22 Tori Martinez NP [address] [place] [address] PCP - [employer] 05/28/23 Tori Martinez NP [address] [place] [address] Nurse Practitioner Family Medicine 09/24/22 Sofie Gr NP [address] [place] [phone] Nurse Practitioner Pulmonary Disease 04/14/23 Churner Relationship Specialty Start Date End Date Carlos Alberto Coleman MD [address] [place] [address] PCP - General Family Medicine 09/24/22 Tori Martinez NP [address] [place] [address] PCP - [employer] 05/28/23 Tori Martinez NP [address] [place] [address] Nurse Practitioner Family Medicine 09/24/22 Sofie Gr NP [address] [place] [phone] Nurse Practitioner Pulmonary Disease 04/14/23 Churner Relationship Specialty Start Date End Date Carlos Alberto Coleman MD [address] [place] [address] PCP - General Family Medicine 09/24/22 Tori Martinez NP [address] [place] [address] PCP - [employer] 05/28/23 Tori Martinez NP [address] [place] [address] Nurse Practitioner Family Medicine 09/24/22 Sofie Gr NP [address] [place] [phone] Nurse Practitioner Pulmonary Disease 04/14/23 Churner Relationship Specialty Start Date End Date Carlos Alberto Coleman MD [address] [place] [address] PCP - General Family Medicine 09/24/22 Tori Martinez NP [address] [place] [address] PCP - [employer] 05/28/23 Tori Martinez NP [address] [place] [address] Nurse Practitioner Family Medicine 09/24/22 Sofie Gr NP [address] [place] [address] Nurse Practitioner Pulmonary Disease 04/14/23 Churner Relationship Specialty Start Date End Date Carlos Alberto Coleman MD [address] [place] [address] PCP - General Family Medicine 09/24/22 Tori Martinez NP [address] [place] [address] PCP - [employer] 05/28/23 Tori Martinez NP [address] [place] [address] Nurse Practitioner Family Medicine 09/24/22 Sofie Gr NP [address] [place] [phone] Nurse Practitioner Pulmonary Disease 04/14/23 Churner Relationship Specialty Start Date End Date Carlos Alberto Coleman MD [address] [place] [address] PCP - General Family Medicine 09/24/22 Tori Martinez NP [address] [place] [address] PCP - [employer] 05/28/23 Tori Martinez NP [address] [place] [address] Nurse Practitioner Family Medicine 09/24/22 Sofie Gr NP [address] [place] [phone] Nurse Practitioner Pulmonary Disease 04/14/23 Churner Relationship Specialty Start Date End Date Carlos Alberto Coleman MD [address] [place] [address] PCP - General Family Medicine 09/24/22 Toir Martinez NP [address] [place] [address] PCP - [employer] 05/28/23 Tori Martinez NP [address] [place] [address] Nurse Practitioner Family Medicine 09/24/22 Sofie Gr NP [address] [place] [phone] Nurse Practitioner Pulmonary Disease 04/14/23 Churner Relationship Specialty Start Date End Date Carlos Alberto Coleman MD [address] [place] [address] PCP - General Family Medicine 09/24/22 Tori Martinez NP [address] [place] [address] PCP - [employer] 05/28/23 Tori Martinez NP [address] [place] [address] Nurse Practitioner Family Medicine 09/24/22 Sofie Gr NP [address] [place] [phone] Nurse Practitioner Pulmonary Disease 04/14/23 Churner Relationship Specialty Start Date End Date Carlos Alberto Coleman MD [address] [place] [address] PCP - General Family Medicine 09/24/22 Tori Martinez NP [address] [place], [id number] PCP - [employer] 05/28/23 Tori Martinez NP [address] [place] [address] Nurse Practitioner Family Medicine 09/24/22 Sofie Gr NP [address] [place] [phone] Nurse Practitioner Pulmonary Disease 04/14/23 Churner Relationship Specialty Start Date End Date Carlos Alberto Coleman MD [address] [place] [address] PCP - General Family Medicine 09/24/22 Tori Martinez NP [address] [place] [address] PCP - [employer] 05/28/23 Tori Martinez NP [address] [place] [address] Nurse Practitioner Family Medicine 09/24/22 Sofie Gr NP [address] [place] [address] Nurse Practitioner Pulmonary Disease 04/14/23 Churner Relationship Specialty Start Date End Date Carlos Alberto oCleman MD [address] [place] [address] PCP - General Family Medicine 09/24/22 Tori Martinez NP [address] [place] [address] PCP - [employer] 05/28/23 Tori Martinez NP [address] [place] [address] Nurse Practitioner Family Medicine 09/24/22 Sofie Gr NP [address] [place] [phone] Nurse Practitioner Pulmonary Disease 04/14/23 Goals (unrecognized [...] BE BASED ON THE PRIMARY CLINICAL RECORDS. [employer] [facility]. provides no warranty or guarantee of the accuracy or completeness of information in this document.
--- NOTE | 2024-05-23 19:10 | US_ITS ---
[address] [address] Patient Name: JULIÁN JIMENEZ MRN: [facility]:[id number] date: 1995 Sex: F Assigned Patient Location: [facility] Current Patient Location: Accession/Order Number: [id number] Exam Date: 05/23/2024 19:13 Report Date: 05/24/2024 04:23 At the request of: LACY AVILES Procedure: US OB BPP w non-stress EXAMINATION: US OB BPP w non-stress HISTORY:GESTATIONAL DIABETES MELLITUS O24.419 COMPARISON: Ultrasound OB biophysical 05/16/2024 TECHNIQUE: Ultrasound biophysical profile was performed in the radiology department. BREATHING MOVEMENTS: 2 GROSS BODY MOVEMENTS: 2 TONE: 2 QUALITATIVE AMNIOTIC FLUID VOLUME: 2 PRESENTATION: CEPHALIC HEART RATE: 121.08 bpm AMNIOTIC FLUID VOLUME: 24.86 cm GESTATIONAL AGE: 35 weeks 0 days US/US OB BPP w non-stress IMPRESSION: 1. Total biophysical profile score: 8 2. Amniotic fluid volume is at the 95th percentile. Electronically authenticated by: YAAKOV TERAN Date: 05/24/2024 04:23
[2024-05-23 19:33] VITALS: BP 121/67; PULSE 73
== END 2024-05-23 20:00 | disposition home or self-care (01) ==
LOC: US 19:02 → FBC 19:04
PROVIDERS: PCP Family Medicine; Visit Provider Obstetrics & Gynecology
DX: O24.419 Gestational diabetes mellitus in pregnancy, unspecified control (principal); Z3A.35 35 weeks gestation of pregnancy
CPT/HCPCS: 76818

== ENCOUNTER 2024-05-26 05:27 | Outpatient (OUT) | payer BC, MEDICAID, SELFPAY ==
--- OUTSIDE RECORDS SUMMARY | 2024-05-26 05:30 | XMS_ITS | CCD ---
Author Organization [facility] Care Team Providers Care Optical Technician Name Role Phone RENEE, MODE R Referring [...] ÁNGEL Attending Unavailable KIEPERT, ÁNGEL Admitting Unavailable EVERGREEN, DR DEANNA [employer] Consult[employer] Unavailable PAY ., [...] Alberto Coleman MD Primary Care Provider Kylee DOOR FITTER, Tori Unavailable Maile DOOR FITTER, Sofie R Unavailable [phone] MD Carlos Alberto Coleman Primary Care Provider HEATHER Gr Attending Provider Maile DOOR FITTER, Sofie R Unavailable [phone] Kylee DOOR FITTER, Tori Unavailable Sofie Gr Attending Unavailable Sofie [...] source) Cefuroxime Drug Allergy 04-04-20 22 [facility] (2 sources) Ciprofloxacin Drug Allergy 04-03-20 16 [facility] (2 sources) Doxycycline Drug Allergy 05-20-19 21 vomiting [facility] (1 source) Flupenthixol Drug Allergy 04-04-20 22 [facility] (20 sources) Cefuroxime Drug Allergy 05-20-19 21 Rash [facility] (20 sources) Ciprofloxacin Drug Allergy 09-02-19 23 Shortness of breath [facility] (20 sources) Ciprofloxacin Drug Allergy 09-02-19 23 Shortness of breath [facility] (20 sources) cloNIDine Drug Allergy 03-14-20 21 [facility] (20 sources) cloNIDine Drug Allergy 09-02-19 23 [facility] (20 sources) Doxycycline Drug Allergy 05-20-19 21 GI intolerance [facility] (20 sources) Gluten Propensity to adverse reactions 11-11-19 19 [facility] (20 sources) Lactose (non-medical use) Allergy to substance 09-02-19 23 [facility] (20 sources) Lactose (non-medical use) Drug Intolerance 11-11-19 19 [facility] (20 sources) Octacosanol Drug Intolerance 11-11-19 19 [facility] (20 sources) Other Allergy to substance 11-11-19 19 [facility] (20 sources) Silver Allergy to substance 09-02-19 23 [facility] (20 sources) Wound Dressing Adhesive Drug Allergy 09-02-19 23 [facility] (1 source) Cefuroxime Drug Allergy 05-20-19 [facility] Repository (1 source) Ciprofloxacin Drug Allergy 05-20-19 [facility] (1 source) Doxycycline Drug Allergy 05-20-19 21 [facility] Medications Current Medications Medication Drug Class(es) Dates Sig (Normalized) Sig (Original) aspirin 81 mg delayed release oral tablet (2 sources) Platelet Aggregation Inhibitor, Nonsteroidal Anti-inflammatory Drug take 1 tablet by mouth once daily aspirin 81 MG EC tablet Take 81 mg by mouth Daily Active Blood Glucose Monitoring Suppl (D-Care Glucometer) w/Device kit (19 sources) Start: 03-21-2024 End: 03-21-2025 Blood Glucose [...] 03/21/2025 Active citalopram 10 mg oral tablet (20 sources) Serotonin Reuptake Inhibitor Start: 03-10-2024 End: 03-10-2025 take 1 tablet by mouth once daily citalopram (CeleXA) 10 MG tablet Indications: Anxiety, generalized (CMS/HCC) Take 1 tablet (10 mg) by mouth Daily 30 tablet 03/10/2024 03/10/2025 Active famotidine 20 mg oral [...] inhaler (1 source) Corticosteroid, beta2-Adrenergic Agonist Start: 023 End: 06-18-2 024 take 1 puff(s) by inhalation in the [...] Active isopropyl alcohol 0.7 ml/ml medicated pad (19 sources) Start: Alcohol Swabs (Alcohol Prep Pad) [...] (20 sources) beta2-Adrenergic Agonist Start: 10-16-2023 End: 09-07-2024 take 1 puff(s) by inhalation every four hours for wheezing levalbuterol (Xopenex) 45 MCG/ACT inhaler Indications: Moderate persistent asthma without complication (CMS/HCC) Inhale 1 puff every 4 (four) hours if needed for wheezing 15 g 5 03/11/2024 09/07/2024 Active Start: 10-16-2023 End: 05-25-2024 levalbuterol (Xopenex) 1.25 MG/3ML nebulizer solution Indications: Moderate persistent asthma without complication (CMS/HCC) Take 1 ampule by nebulization every 6 (six) hours if needed for shortness of breath 72 mL 1 10/16/2023 05/25/2024 Discontinued Start: 04-16-2023 End: 07-15-2023 levalbuterol (Xopenex) 1.25 [...] 90 tablet 1 04/16/2023 10/13/2023 Active Magnesium (15 sources) take 1 capsule by mouth once [...] 10/13/2023 Active ondansetron 4 mg oral tablet (15 sources) Serotonin-3 Receptor Antagonist Start: 04-13-2024 take [...] Drug Class(es) Dates Sig (Normalized) Sig (Original) [id number] 200 actuat albuterol 0.09 mg/actuat metered dose inhaler (20 sources) beta2-Adrenergic Agonist Start: 10-16-2023 End: 05-25-2024 take 2 puff(s) by inhalation every four hours for wheezing albuterol HFA 90 mcg/act inhaler Indications: Moderate persistent asthma without complication (CMS/HCC) Inhale 2 puffs every 4 (four) hours if needed for shortness of breath or wheezing 18 g 5 10/16/2023 05/25/2024 Discontinued Start: 04-16-2023 End: 07-15-2023 take 2 puff(s) by inhalation every four hours for wheezing albuterol HFA 90 mcg/act inhaler Indications: Moderate persistent asthma without complication (CMS/HCC) Inhale 2 puffs every 4 (four) hours if needed for shortness of breath or wheezing 18 g 2 04/16/2023 07/15/2023 Active amphetamine aspartate 5 mg / amphetamine sulfate [...] Discontinued (Reorder) azithromycin 250 mg oral tablet (18 sources) Macrolide Antimicrobial Start: 05-09-2024 End: 05-25-2024 azithromycin (Zithromax Z-Darvin) 250 MG tablet Indications: Upper respiratory tract infection, unspecified type As directed 6 tablet 05/09/2024 05/25/2024 Discontinued Start: 01-26-2024 End: 04-13-2024 azithromycin (Zithromax Z-Pa k) 250 MG tablet Indications: Upper respiratory tract [...] konstantin th Daily as needed. 0 Active terconazole 4 mg/ml vaginal cream (3 sources) Azole Antifungal Start: 05-17-2024 End: 05-25-2024 terconazole (Terazol 7) 0.4 % vaginal cream Indications: Yeast infection Insert 1 applicator into the vagina at bedtime for 7 days 45 g 05/17/2024 05/25/2024 Discontinued ubrogepant 100 mg oral tablet (18 sources) Start: 04-24-2023 End: 04-13-2024 Ubrelvy 100 MG tablet 04/24/2023 04/13/2024 Discontinued Problems Active Problems Problem Classification Problem [...] of ] 04-13-2024 Episodic Residual codes; unclassified (14 sources) Gestation period, 30 weeks; Translations: [30 weeks gestation of ] Onset: 04-21-2024 04-21-2024 Episodic Residual codes; unclassified (2 sources) Gestation period, 32 weeks; Translations: [32 weeks gestation of ] 05-09-2024 Episodic Residual codes; unclassified (2 sources) Gestation period, 34 weeks; Translations: [34 weeks gestation of ] 05-25-2024 Episodic Thyroid disorders (20 sources) Hypothyroidism, unspecified; [...] Range Facility Urinalysis macro (dipstick) panel (U)on 05-25-2024 Bilirubin, UA Negative Negative - 4(70) +++ mg/dL [facility] Blood, UA Negative Negative - 50 Mendel/mcL [facility] Clarity, UA Clear [facility] Color, UA Yellow [facility] Glucose, UA Negative Negative - 1999(110) ++++ mg/dL [facility] Interpretation and review of laboratory results Abnormal [facility] Ketones, UA Positive Negative - 160(16) ++++ mg/dL [facility] Comment on above: trace Leukocytes, UA Positive Negative - 500+++ Leighann/mcL [facility] Comment on above: small Nitrite, UA Negative Negative - Positive [facility] pH, UA 6 5 - 9 [facility] Protein, UA Trace Negative - 1999(20) ++++ mg/dL [facility] Spec Grav, UA 1.03 1 - 1.03 [facility] Urobilinogen, UA 1.0 0.2 - 12 mg/dL [facility] US OB BPP W NON-STRESS on 05-24-[address] [address] Ultrasound Report Signed Patient: CECELIA JOHNSON MR#: [id number] : 1995 Acct:[id number] Age/Sex: 28 / F ADM Date: 05/23/24 Loc: US Attending Dr: Herber Coto D.O. Ordering Physician: Herber Coto D.O. Date of Service: 05/23/24 Procedure(s): US OB BPP w non-stress Accession Number(s): [id number] cc: CARLOS ALBERTO COLEMAN ; Herber Coto D.O. The [place] [address] Patient Name: CECELIA JOHNSON MRN: [facility]:[id number] date: 1995 Sex: F Assigned Patient Location: [facility] Current Patient Location: Accession/Order Number: [id number] Exam Date: 05/23/2024 19:13 Report Date: 05/24/2024 04:23 At the request of: HERBER COTO Procedure: US OB BPP w non-stress EXAMINATION: US OB BPP w non-stress HISTORY:GESTATIONAL DIABETES MELLITUS O24.419 COMPARISON: Ultrasound OB biophysical 05/16/2024 TECHNIQUE: Ultrasound biophysical profile was performed in the radiology department. BREATHING MOVEMENTS: 2 GROSS BODY MOVEMENTS: 2 TONE: 2 QUALITATIVE AMNIOTIC FLUID VOLUME: 2 PRESENTATION: CEPHALIC HEART RATE: 121.08 bpm AMNIOTIC FLUID VOLUME: 24.86 cm GESTATIONAL AGE: 35 weeks 0 days US/US OB BPP w non-stress IMPRESSION: 1. Total biophysical profile score: 8 2. Amniotic fluid volume is at the 95th percentile. Electronically authenticated by: YAAKOV HOUSER Date: 05/24/2024 04:23 Dictated By: Yaakov Houser M.D. Signed By: 05/24/247 DD/ 2 TD/TT: Front Office Spec: [facility] Radiology, Radiologist, MD - 05/24/2024 [place] [address] Ultrasound Report Signed Patient: CECELIA JOHNSON MR#: [id number] : 1995 Acct:[id number] Age/Sex: 28 / F ADM Date: 05/23/24 Loc: US Attending Dr: Herber Coto D.O. Ordering Physician: Herber Coto D.O. Date of Service: 05/23/24 Procedure(s): US OB BPP w non-stress Accession Number(s): [id number] cc: CARLOS ALBERTO COLEMAN ; Herber Coto D.O. [place] [address] Patient Name: CECELIA JOHNSON MRN: [facility]:[id number] date: 1995 Sex: F Assigned Patient Location: [facility] Current Patient Location: Accession/Order Number: [id number] Exam Date: 05/23/2024 19:13 Report Date: 05/24/2024 04:23 At the request of: HERBER COTO Procedure: US OB BPP w non-stress EXAMINATION: US OB BPP w non-stress HISTORY:GESTATIONAL DIABETES MELLITUS O24.419 COMPARISON: Ultrasound OB biophysical 05/16/2024 TECHNIQUE: Ultrasound biophysical profile was performed in the radiology department. BREATHING MOVEMENTS: 2 GROSS BODY MOVEMENTS: 2 TONE: 2 QUALITATIVE AMNIOTIC FLUID VOLUME: 2 PRESENTATION: CEPHALIC HEART RATE: 121.08 bpm AMNIOTIC FLUID VOLUME: 24.86 cm GESTATIONAL AGE: 35 weeks 0 days US/US OB BPP w non-stress IMPRESSION: 1. Total biophysical profile score: 8 2. Amniotic fluid volume is at the 95th percentile. Electronically authenticated by: YAAKOV HOUSER Date: 05/24/2024 04:23 Dictated By: Yaakov Houser M.D. Signed By: 05/24/24426 DD/ 2 TD/TT: Front Office Spec: [facility] Radiology Study observation (narrative) [facility] US OB BPP W NON-STRESS Ordered By: Radiologist Radiology on 05-24-2024 [facility] Work Phone: Urinalysis macro (dipstick) panel (U)on 05-09-2024 Bilirubin, UA Negative Negative - 4(70) +++ mg/dL [facility] Blood, UA Negative Negative - 50 Mendel/mcL [facility] Clarity, UA Clear [facility] Color, UA Yellow [facility] Glucose, UA Negative Negative - 1999(110) ++++ mg/dL [facility] Interpretation and review of laboratory results Abnormal [facility] Ketones, UA Negative Negative - 160(16) ++++ mg/dL [facility] Leukocytes, UA Positive Negative - 500+++ Leighann/mcL [facility] Comment on above: small Nitrite, UA Negative Negative - Positive [facility] pH, UA 6 5 - 9 [facility] Protein, UA Negative Negative - 1999(20) ++++ mg/dL [facility] Spec Grav, UA 1.03 1 - 1.03 [facility] Urobilinogen, UA 1.0 0.2 - 12 mg/dL [facility] Urinalysis macro (dipstick) panel (U)on 04-21-2024 Bilirubin, UA Negative Negative - 4(70) +++ mg/dL [facility] Blood, UA Negative Negative - 50 Mendel/mcL [facility] Clarity, UA Clear [facility] Color, UA Light Yellow [facility] Glucose, UA Negative Negative - 1999(110) ++++ mg/dL [facility] Interpretation and review of laboratory results Normal [facility] Ketones, UA Negative Negative - 160(16) ++++ mg/dL [facility] Leukocytes, UA Few Negative - 500+++ Leighann/mcL [facility] Nitrite, UA Negative Negative - Positive [facility] pH, UA 5.5 5 - 9 [facility] Protein, UA Trace Negative - 1999(20) ++++ mg/dL [facility] Spec Grav, UA 1.03 1 - 1.03 [facility] Urobilinogen, UA 0.2 0.2 - 12 mg/dL [facility] Urinalysis macro (dipstick) panel (U)on 04-13-2024 Bilirubin, UA Negative Negative - 4(70) +++ mg/dL [facility] Blood, UA Negative Negative - 50 Mendel/mcL [facility] Clarity, UA Clear [facility] Color, UA Yellow [facility] Glucose, UA Negative Negative - 1999(110) ++++ mg/dL [facility] Interpretation and review of laboratory results Normal [facility] Ketones, UA Negative Negative - 160(16) ++++ mg/dL [facility] Leukocytes, UA Negative Negative - 500+++ Leighann/mcL [facility] Nitrite, UA Negative Negative - Positive [facility] pH, UA 5.5 5 - 9 [facility] Protein, UA Negative Negative - 1999(20) ++++ mg/dL [facility] Spec Grav, UA 1.03 1 - 1.03 [facility] Urobilinogen, UA 0.2 0.2 - 12 mg/dL [facility] Urinalysis macro (dipstick) panel (U)on 04-06-2024 Bilirubin, UA Negative Negative - 4(70) +++ mg/dL [facility] Blood, UA Negative Negative - 50 Mendel/mcL [facility] Clarity, UA Clear [facility] Color, UA Yellow [facility] Glucose, UA Negative Negative - 1999(110) ++++ mg/dL [facility] Interpretation and review of laboratory results Normal [facility] Ketones, UA Negative Negative - 160(16) ++++ mg/dL [facility] Leukocytes, UA Negative Negative - 500+++ Leighann/mcL [facility] Nitrite, UA Negative Negative - Positive [facility] pH, UA 6 5 - 9 [facility] Protein, UA Negative Negative - 1999(20) ++++ mg/dL [facility] Spec Grav, UA 1.015 1 - 1.03 [facility] Urobilinogen, UA 0.2 0.2 - 12 mg/dL [facility] ALL CBC WITH AUTO DIFFon BASOPHILS ABSOLUTE AUTO 0 [facility] Basophils/100 WBC (Bld) 0.2 % 0.2 - 2.0 % [facility] Eosinophils/100 WBC (Bld) 0.7 % Low 0.9 - 7.0 % [facility] Erythrocyte distribution width (RBC) [Ratio] 12.3 % 11.0 - 15.0 % [facility] Hematocrit (Bld) [Volume fraction] 35.3 % Low 36.0 - 48.0 % [facility] Hemoglobin (Bld) [Mass/Vol] 11.8 g/dL Low 12.0 - 16.0 g/dL [facility] IMMATURE GRANULOCYTES ABS AUTO 0.04 High [facility] Immature granulocytes/100 WBC (Bld) 0.5 % 0.0 - 0.5 % [facility] Interpretation and review of laboratory results Abnormal [facility] LYMPHOCYTES ABSOLUTE AUTO 1.5 [facility] Lymphocytes/100 WBC (Bld) 17.1 % Low 20.5 - 60.0 % [facility] MCH (RBC) [Entitic mass] 31.1 pg 26.7 - 34.0 pg [facility] MCHC (RBC) [Mass/Vol] 33.4 g/dL 29.9 - 35.2 g/dL [facility] MCV (RBC) [Entitic vol] 93.1 fL 81.0 - 99.0 fL [facility] MONOCYTES ABSOLUTE AUTO 0.6 [facility] Monocytes/100 WBC (Bld) 7.2 % 1.7 - 12.0 % [facility] NEUTROPHILS ABSOLUTE AUTO 6.5 [facility] Neutrophils/100 WBC (Bld) 74.3 % 43.0 - 75.0 % [facility] Platelet mean volume (Bld) [Entitic vol] 10.6 fL 9.5 - 13.5 fL [facility] TBH EO # 0.1 [facility] PLT [address] [facility] RBC 3.79 Low [facility] WBC 8.8 [facility] IGP,APTIMA HPV,AGE GDLNon AGE GDLN ACOG TESTING Note . [facility] Comment on above: TESTS RESULT FLAG UN ITS REF RANGE LAB Clinician Provided Cytology Information Source.............Cervix No. of containers..01 ThinPrep Vial Age Algo ACOG Sonja... 30-65 01 FLAG LEGEND: L-Low Normal,H-High Normal,LL-Alert Low,HH-Alert High <-Panic Low,>-Panic High,A-Abnormal,AA-Critical Abnormal Performed at: 01 =[address] [place] [address] Radha Browne MD, HPV APTIMA Negative Negative [facility] Comment on above: This nucleic acid am plification test detects fourteen high- risk HPV types (16,18,31,33,35,39,45,51,52,56,58,59,66,68) without differentiation. Performed at: =[address] [id number] Bagman/Woman: Radha Browne MD, Phone: [phone] Performed at: [address] [id number] Bagman/Woman: Radha Browne MD, Phone: [phone] IGP, APTIMA HPV, RFX 16/18,45 Note . [facility] Comment on above: TESTS RESULT FLAG UN ITS REF RANGE LAB DIAGNOSIS: 02 NEGATIVE FOR INTRAEPITHELIAL LESION OR MALIGNANCY. Specimen adequacy: 02 Satisfactory for evaluation. No endocervical component is identified. Performed by: 02 Danie Vargas, Mirror Framer (ASCP) . 02 Note: Note 02 The [...] <-Panic Low,>-Panic High,A-Abnormal,AA-Critical Abnormal Performed at: [address] [facility] [address] [address] Radha Browne MD, SPATULA-ALONE CERVIX [facility] Cytology Cervical or vaginal smear or scraping studyon 02-10-2024 [facility] Urinalysis macro (dipstick) panel (U)on 02-10-2024 Bilirubin, UA Negative Negative - 4(70) +++ mg/dL [facility] Blood, UA Negative Negative - 50 Mendel/mcL [facility] Clarity, UA Clear [facility] Color, UA Yellow [facility] Glucose, UA Negative Negative - 1999(110) ++++ mg/dL [facility] Interpretation and review of laboratory results Abnormal [facility] Ketones, UA Negative Negative - 160(16) ++++ mg/dL [facility] Leukocytes, UA Trace Negative - 500+++ Leighann/mcL [facility] Nitrite, UA Negative Negative - Positive [facility] pH, UA 7 5 - 9 [facility] Protein, UA Negative Negative - 1999(20) ++++ mg/dL [facility] Spec Grav, UA 1.02 1 - 1.03 [facility] Urobilinogen, UA 0.2 0.2 - 12 mg/dL [facility] ALL THYROID STIM HORMONEon 0 01-22-2024 TSH Qn 1.921 m[IU]/L [facility] Urinalysis macro (dipstick) panel (U)on 01-11-2024 Bilirubin, UA Negative Negative - 4(70) +++ mg/dL [facility] Blood, UA Negative Negative - 50 Mendel/mcL [facility] Clarity, UA Clear [facility] Color, UA Yellow [facility] Glucose, UA Negative Negative - 1999(110) ++++ mg/dL [facility] Interpretation and review of laboratory results Normal [facility] Ketones, UA Negative Negative - 160(16) ++++ mg/dL [facility] Leukocytes, UA Negative Negative - 500+++ Leighann/mcL [facility] Nitrite, UA Negative Negative - Positive [facility] pH, UA 6.0 5 - 9 [facility] Protein, UA Negative Negative - 2000(20) ++++ mg/dL [facility] Spec Grav, UA 1.015 1 - 1.03 [facility] Urobilinogen, UA 0.2 0.2 - 12 mg/dL [facility] BioFire Not Detectedon 07-12 BioFire Not Detected Not detected Normal Not Detecte T he [facility] Comment on above: Result Comment: This is a duplicate RP2.1 COVID (PCR) result to be used for statistical tracking purpose only. PERFORMED BY: [place] [address] PATHOLOGIST TUNNELING MACHINE OPERATOR CATY NEELY M.D. Performed By: #### R RODGER PANEL UPP., BIOFIRECOVNOTDE #### [address] COVID-19 Detected/Not Detect edOrdered By: Sofie Gr on 07-13-2023 SARS-CoV-2 (COVID-19) RNA JUAN+non-probe Ql (Nph) Not detected Not Detecte [facility] Comment on above: This is a [...] Influenza A H3 Blank Space PERFORMED BY: [place] [address] PATHOLOGIST TUNNELING MACHINE OPERATOR CATY NEELY M.D. Normal [facility] Comment on above: Performed By: #### R RODGER PANEL UPP., BIOFIRECOVNOTDE #### [address] Respiratory pathogens DNA an d RNA panel - Nasopharynx by JUAN with non-probe detectionOrdered By: Sofie Gr on 07-13-2023 Respiratory pathogens DNA and RNA panel JUAN+non-probe (Nph) [facility] CBC AUTO DIFFon 06-25-2022 BASO # 0.0 103/ul Normal 0.0-0.1 [facility] Comment on above: Performed By: #### C BC #### [facility] [address] [place] [address] [address] Garland Kohli Basophils/100 WBC (Bld) 0.4 % Normal 0.2-2.0 [facility] Comment on above: Performed By: #### C BC #### [facility] [address] [place] [address] [address] Garland Kohli EO # 0.1 103/ul Normal 0.0-0.7 [facility] Comment on above: Performed By: #### C BC #### [facility] [address] [place] [address] Dr. Garland Kohli Eosinophils/100 WBC (Bld) 0.9 % Normal 0.9-7.0 [facility] Comment on above: Performed By: #### C BC #### [facility] [address] [place] [address] Dr. Garland Kohli Erythrocyte distribution width (RBC) [Ratio] 12.4 % Normal 11.0-15.0 [facility] Comment on above: Performed By: #### C BC #### [facility] [address] [place] [address] Dr. Garland Kohli Hematocrit (Bld) [Volume fraction] 31.4 % Critically low 36.0-48.0 [facility] Comment on above: Performed By: #### C BC #### [facility] [address] [place] [address] Dr. Garland Kohli Hemoglobin (Bld) [Mass/Vol] 10.4 g/dL Critically low 12.0-16.0 [facility] Comment on above: Performed By: #### C BC #### [facility] [address] [place] [address] Dr. Garland Kohli IG # 0.04 10e3/ul Critically high 0.00-0.03 [facility] Comment on above: Performed By: #### C BC #### [facility] [address] [place] [address] Dr. Garland Kohli IG % 0.4 % Normal 0.0-0.5 [facility] Comment on above: Performed By: #### C BC #### [facility] [address] [place] [address] Dr. Garland Kohli LYMPH # 2.0 103/ul Normal 1.2-3.8 [facility] Comment on above: Performed By: #### C BC #### [facility] [address] [place] [address] Dr. Garland Kohli Lymphocytes/100 WBC (Bld) 22.1 % Normal 20.5-60.0 [facility] Comment on above: Performed By: #### C BC #### [facility] [address] [place] [address] Dr. Garland Kohli MANUAL DIFF REQ NO [facility] Comment on above: Performed By: #### C BC #### [facility] [address] [place] [address] Dr. Garland Kohli MCH (RBC) [Entitic mass] 30.1 pg Normal 26.7-34.0 [facility] Comment on above: Performed By: #### C BC #### [facility] [address] [place] [address] Dr. Garland Kohli MCHC (RBC) [Mass/Vol] 33.1 g/dL Normal 29.9-35.2 [facility] Comment on above: Performed By: #### C BC #### [facility] [address] [place] [address] Dr. Garland Kohli MCV (RBC) [Entitic vol] 91.0 fL Normal 81.0-99.0 [facility] Comment on above: Performed By: #### C BC #### [facility] [address] [place] [address] Dr. Garland Kohli MONO # 0.8 103/ul Normal 0.3-0.8 [facility] Comment on above: Performed By: #### C BC #### [facility] [address] [place] [address] Dr. Garland Kohli Monocytes/100 WBC (Bld) 8.8 % Normal 1.7-12.0 [facility] Comment on above: Performed By: #### C BC #### [facility] [address] [place] [address] Dr. Garland Kohli NEUT # 6.0 103/ul Normal 1.4-6.5 [facility] Comment on above: Performed By: #### C BC #### [facility] [address] [place] [address] Dr. Garland Kohli Neutrophils/100 WBC (Bld) 67.4 % Normal 43.0-75.0 [facility] Comment on above: Performed By: #### C BC #### [facility] [address] [place] [address] Dr. Garland Kohli Platelet mean volume (Bld) [Entitic vol] 12.0 fL Normal 9.5-13.5 [facility] Comment on above: Performed By: #### C BC #### [facility] [address] [place] [address] Dr. Garland Kohli PLT 151 103/ul Normal 150-450 [facility] Comment on above: Performed By: #### C BC #### [facility] [address] [address] [address] Garland Kohli RBC 3.45 106/ul Critically low 4.20-5.40 [facility] Comment on above: Performed By: #### C BC #### [facility] [address] [place] [address] Dr. Garland Kohli WBC 8.9 103/ul Normal 4.0-11.0 [facility] Comment on above: Performed By: #### C BC #### [facility] [address] [place] [address] Dr. Garland Kohli CBC AUTO DIFFon 06-23-2022 BASO # 0.0 103/ul Normal 0.0-0.1 [facility] Comment on above: Performed By: #### C BC #### [facility] [address] [place] [address] Dr. Garland Kohli Basophils/100 WBC (Bld) 0.4 % Normal 0.2-2.0 [facility] Comment on above: Performed By: #### C BC #### [facility] [address] [place] [address] Dr. Garland Kohli EO # 0.1 103/ul Normal 0.0-0.7 [facility] Comment on above: Performed By: #### C BC #### [facility] [address] [place] [address] Dr. Garland Kohli Eosinophils/100 WBC (Bld) 0.8 % Critically low 0.9-7.0 [facility] Comment on above: Performed By: #### C BC #### [facility] [address] [place] [address] Dr. Garland Kohli Erythrocyte distribution width (RBC) [Ratio] 12.4 % Normal 11.0-15.0 [facility] Comment on above: Performed By: #### C BC #### [facility] [address] [place] [address] Dr. Garland Kohli Hematocrit (Bld) [Volume fraction] 34.5 % Critically low 36.0-48.0 [facility] Comment on above: Performed By: #### C BC #### [facility] [address] [place] [address] Dr. Garland Kohli Hemoglobin (Bld) [Mass/Vol] 11.6 g/dL Critically low 12.0-16.0 [facility] Comment on above: Performed By: #### C BC #### [facility] [address] [place] [address] Dr. Garland Kohli IG # 0.04 10e3/ul Critically high 0.00-0.03 [facility] Comment on above: Performed By: #### C BC #### [facility] [address] [place] [address] Dr. Garland Kohli IG % 0.5 % Normal 0.0-0.5 [facility] Comment on above: Performed By: #### C BC #### [facility] [address] [place] [address] Dr. Garland Kohli LYMPH # 1.3 103/ul Normal 1.2-3.8 [facility] Comment on above: Performed By: #### C BC #### [facility] [address] [place] [address] Dr. Garland Kohli Lymphocytes/100 WBC (Bld) 17.6 % Critically low 20.5-60.0 [facility] Comment on above: Performed By: #### C BC #### [facility] [address] [place] [address] Dr. Garland Kohli MANUAL DIFF REQ NO Normal [facility] Comment on above: Performed By: #### C BC #### [facility] [address] [address] [address] Garland Kohli MCH (RBC) [Entitic mass] 29.6 pg Normal 26.7-34.0 [facility] Comment on above: Performed By: #### C BC #### [facility] [address] [place] [address] Dr. Garland Kohli MCHC (RBC) [Mass/Vol] 33.6 g/dL Normal 29.9-35.2 [facility] Comment on above: Performed By: #### C BC #### [facility] [address] [place] [address] Dr. Garland Kohli MCV (RBC) [Entitic vol] 88.0 fL Normal 81.0-99.0 [facility] Comment on above: Performed By: #### C BC #### [facility] [address] [place] [address] Dr. Garland Kohli MONO # 0.9 103/ul Critically high 0.3-0.8 [facility] Comment on above: Performed By: #### C BC #### [facility] [address] [place] [address] Dr. Garland Kohli Monocytes/100 WBC (Bld) 11.7 % Normal 1.7-12.0 [facility] Comment on above: Performed By: #### C BC #### [facility] [address] [place] [address] Dr. Garland Kohli NEUT # 5.1 103/ul Normal 1.4-6.5 [facility] Comment on above: Performed By: #### C BC #### [facility] [address] [place] [address] Dr. Garland Kohli Neutrophils/100 WBC (Bld) 69.0 % Normal 43.0-75.0 [facility] Comment on above: Performed By: #### C BC #### [facility] [address] [place] [address] Dr. Garland Kohli Platelet mean volume (Bld) [Entitic vol] 12.1 fL Normal 9.5-13.5 [facility] Comment on above: Performed By: #### C BC #### [facility] [address] [address] [address] Garland Kohli PLT 193 103/ul Normal 150-450 [facility] Comment on above: Performed By: #### C BC #### [facility] [address] [place] [address] Dr. Garland Kohli RBC 3.92 106/ul Critically low 4.20-5.40 [facility] Comment on above: Performed By: #### C BC #### [facility] [address] [address] [address] Garland Kohli WBC 7.4 103/ul Normal 4.0-11.0 [facility] Comment on above: Performed By: #### C BC #### [facility] [address] [place] [address] Dr. Garland Kohli DRUG SCREEN RAPID (URINE)on 06-23-2022 AMP Negative Normal NEGATIVE [facility] Comment on above: Performed By: #### D RUGRPD #### [facility] [address] [place] [address] Dr. Garland Kohli BAR Negative Normal NEGATIVE [facility] Comment on above: Performed By: #### D RUGRPD #### [facility] [address] [place] [address] Dr. Garland Kohli BUP Negative Normal NEGATIVE [facility] Comment on above: Performed By: #### D RUGRPD #### [facility] [address] [place] [address] Dr. Garland Kohli BZO Negative Normal NEGATIVE [facility] Comment on above: Performed By: #### D RUGRPD #### [facility] [address] [place] [address] Dr. Garland Kohli JUANI Negative Normal NEGATIVE [facility] Comment on above: Performed By: #### D RUGRPD #### [facility] [address] [place] [address] Dr. Garland Kohli CUT-OFFS SEE BELOW Normal [facility] Comment on above: Result Comment: AMP [...] ng/mL Performed By: #### D RUGRPD #### [facility] [address] [place] [address] Dr. Garland Kohli DRUG CUT HEADER DRUG CLASS TEST SYSTEM CUT-OFF CONCENTRATIONS ARE FOLLOWS: Normal [facility] Comment on above: Performed By: #### D RUGRPD #### [facility] [address] [place] [address] Dr. Garland Kohli mAMP Negative Normal NEGATIVE [facility] Comment on above: Performed By: #### D RUGRPD #### [facility] [address] [place] [address] Dr. Garland Kohli MTD Negative Normal NEGATIVE [facility] Comment on above: Performed By: #### D RUGRPD #### [facility] [address] [place] [address] Dr. Garland Kohli OPI Negative Normal NEGATIVE [facility] Comment on above: Performed By: #### D RUGRPD #### [facility] [address] [place] [address] Dr. Garland Kohli OXY Negative Normal NEGATIVE [facility] Comment on above: Performed By: #### D RUGRPD #### [facility] [address] [place] [address] Dr. Garland Kohli PCP Negative Normal NEGATIVE [facility] Comment on above: Performed By: #### D RUGRPD #### [facility] [address] [place] [address] Dr. Garland Kohli PPX Negative Normal NEGATIVE [facility] Comment on above: Performed By: #### D RUGRPD #### [facility] [address] [address] [address] Garland Kohli TCA Negative Normal NEGATIVE [facility] Comment on above: Performed By: #### D RUGRPD #### [facility] [address] [place] [address] Dr. Garland Kohli THC Negative Normal NEGATIVE [facility] Comment on above: Performed By: #### D RUGRPD #### [facility] [address] [place] [address] Dr. Garland Kohli TYPE AND SCREENon 06-23-2022 TYPE AND SCREEN Negative Normal [facility] Comment on above: Performed By: #### T NS #### [facility] [address] [place] [address] Dr. Garland Kohli FREE T4on 06-07-2022 Free T4 [Mass/Vol] 0.76 ng/dL Normal 0.76-1.46 [facility] Comment on above: Performed By: #### C BC #### [facility] [address] [place] [address] Dr. Garland Kohli TSHon 06-07-2022 TSH 1.393 uIU/mL Normal 0.358-3.740 [facility] Comment on above: Performed By: #### T SH #### [facility] [address] [place] [address] Dr. Garland Kohli GROUP B STREP CULTUREon S. agalactiae Ag Ql (Unsp spec) Culture Observations: NEGATIVE FOR GROUP B STREPTOCOCCUS. Normal [facility] Comment on above: Performed By: #### C BC #### [facility] [address] [place] [address] Dr. Garland Kohli GTT 3 HR PREGon 04-16-2022 Glucose [Mass/Vol] 87 mg/dL Normal 74-106 [facility] Comment on above: Performed By: #### G TT3P #### [facility] [address] [place] [address] Dr. Garland Kohli Glucose [Mass/Vol] 148 mg/dL Normal [facility] Comment on above: Performed By: #### G TT3P #### [facility] [address] [place] [address] Dr. Garland Kohli Glucose [Mass/Vol] 128 mg/dL Normal [facility] Comment on above: Performed By: #### G TT3P #### [facility] [address] [place] [address] Dr. Garland Kohli Glucose [Mass/Vol] 105 mg/dL Normal [facility] Comment on above: Performed By: #### G TT3P #### [facility] [address] [place] [address] Dr. Garland Kohli CBC AUTO DIFFon 04-04-2022 BASO # 0.0 103/ul Normal 0.0-0.1 [facility] Comment on above: Performed By: #### G TT3P #### [facility] [address] [place] [address] Dr. Garland Kohli Basophils/100 WBC (Bld) 0.2 % Normal 0.2-2.0 [facility] Comment on above: Performed By: #### G TT3P #### [facility] [address] [place] [address] Dr. Garland Kohli EO # 0.0 103/ul Normal 0.0-0.7 [facility] Comment on above: Performed By: #### G TT3P #### [facility] [address] [place] [address] Dr. Garland Kohli Eosinophils/100 WBC (Bld) 0.4 % Critically low 0.9-7.0 [facility] Comment on above: Performed By: #### G TT3P #### [facility] [address] [place] [address] Dr. Garland Kohli Erythrocyte distribution width (RBC) [Ratio] 12.9 % Normal 11.0-15.0 [facility] Comment on above: Performed By: #### G TT3P #### [facility] [address] [place] [address] Dr. Garland Kohli Hematocrit (Bld) [Volume fraction] 32.5 % Critically low 36.0-48.0 [facility] Comment on above: Performed By: #### G TT3P #### [facility] [address] [address] [address] Garland Kohli Hemoglobin (Bld) [Mass/Vol] 11.2 g/dL Critically low 12.0-16.0 [facility] Comment on above: Performed By: #### G TT3P #### [facility] [address] [address] [address] Garland Kohli IG # 0.07 10e3/ul Critically high 0.00-0.03 [facility] Comment on above: Performed By: #### G TT3P #### [facility] [address] [place] [address] Dr. Garland Kohli IG % 0.8 % Critically high 0.0-0.5 [facility] Comment on above: Performed By: #### G TT3P #### [facility] [address] [place] [address] Dr. Garland Kohli LYMPH # 0.9 103/ul Critically low 1.2-3.8 [facility] Comment on above: Performed By: #### G TT3P #### [facility] [address] [place] [address] Dr. Garland Kohli Lymphocytes/100 WBC (Bld) 10.4 % Critically low 20.5-60.0 [facility] Comment on above: Performed By: #### G TT3P #### [facility] [address] [place] [address] Dr. Garland Kohli MANUAL DIFF REQ NO Normal [facility] Comment on above: Performed By: #### G TT3P #### [facility] [address] [place] [address] Dr. Garland Kohli MCH (RBC) [Entitic mass] 31.4 pg Normal 26.7-34.0 [facility] Comment on above: Performed By: #### G TT3P #### [facility] [address] [place] [address] Dr. Garland Kohli MCHC (RBC) [Mass/Vol] 34.5 g/dL Normal 29.9-35.2 [facility] Comment on above: Performed By: #### G TT3P #### [facility] [address] [address] [address] Garland Kohli MCV (RBC) [Entitic vol] 91.0 fL Normal 81.0-99.0 [facility] Comment on above: Performed By: #### G TT3P #### [facility] [address] [address] [address] Garland Kohli MONO # 1.1 103/ul Critically high 0.3-0.8 [facility] Comment on above: Performed By: #### G TT3P #### [facility] [address] [place] [address] Dr. Garland Kohli Monocytes/100 WBC (Bld) 12.5 % Critically high 1.7-12.0 [facility] Comment on above: Performed By: #### G TT3P #### [facility] [address] [place] [address] Dr. Garland Kohli NEUT # 6.3 103/ul Normal 1.4-6.5 [facility] Comment on above: Performed By: #### G TT3P #### [facility] [address] [place] [address] Dr. Garland Kohli Neutrophils/100 WBC (Bld) 75.7 % Critically high 43.0-75.0 [facility] Comment on above: Performed By: #### G TT3P #### [facility] [address] [place] [address] Dr. Garland Kohli Platelet mean volume (Bld) [Entitic vol] 10.5 fL Normal 9.5-13.5 [facility] Comment on above: Performed By: #### G TT3P #### [facility] [address] [place] [address] Dr. Garland Kohli PLT 181 103/ul Normal 150-450 [facility] Comment on above: Performed By: #### G TT3P #### [facility] [address] [place] [address] Dr. Garland Kohli RBC 3.57 106/ul Critically low 4.20-5.40 [facility] Comment on above: Performed By: #### G TT3P #### [facility] [address] [place] [address] Dr. Garland Kohli WBC 8.4 103/ul Normal 4.0-11.0 [facility] Comment on above: Performed By: #### G TT3P #### [facility] [address] [place] [address] Dr. Garland Kohli CTA CHEST WO W [...] DEANNA LINN Date: 2022-04-04 15:25 Normal [facility] PROF CHEM 8 (BAS METB)on Anion gap [Moles/Vol] 13.2 mmol/L Normal [facility] Comment on above: Performed By: #### G TT3P #### [facility] [address] [place] [address] Dr. Garland Kohli Calcium [Mass/Vol] 8.5 mg/dL Normal 8.5-10.1 [facility] Comment on above: Performed By: #### G TT3P #### [facility] [address] [place] [address] Dr. Garland Kohli Chloride [Moles/Vol] 103 mmol/L Normal 98-107 [facility] Comment on above: Performed By: #### G TT3P #### [facility] [address] [address] [address] Garland Kohli CO2 [Moles/Vol] 23.4 mmol/L Normal 21.0-32.0 [facility] Comment on above: Performed By: #### G TT3P #### [facility] [address] [address] [address] Garland Kohli Creatinine [Mass/Vol] 0.43 mg/dL Critically low 0.55-1.02 [facility] Comment on above: Performed By: #### G TT3P #### [facility] [address] [address] [address] Garland Kohli EGFR-AF ROMANIAN >60 Normal >=60 [facility] Comment on above: Performed By: #### G TT3P #### [facility] [address] [place] [address] Dr. Garland Kohli EGFR-NON AF ROMANIAN >60 Normal >=60 [facility] Comment on above: Performed By: #### G TT3P #### [facility] [address] [address] [address] Garland Kohli Glucose [Mass/Vol] 108 mg/dL Critically high 74-106 [facility] Comment on above: Performed By: #### G TT3P #### [facility] [address] [place] [address] Dr. Garland Kohli Potassium [Moles/Vol] 3.6 mmol/L Normal 3.5-5.1 [facility] Comment on above: Performed By: #### G TT3P #### [facility] [address] [address] [address] Garland Kohli Sodium [Moles/Vol] 136 mmol/L Normal 136-145 [facility] Comment on above: Performed By: #### G TT3P #### [facility] [address] [address] [address] Garland Kohli Urea nitrogen [Mass/Vol] 5.0 mg/dL Critically low 7.0-18.0 [facility] Comment on above: Performed By: #### G TT3P #### [facility] [address] [place] [address] Dr. Garland Kohli Urea nitrogen/Creatinine [Mass ratio] 11.6 mg/mg Normal [facility] Comment on above: Performed By: #### G TT3P #### [facility] [address] [place] [address] Dr. Garland Kohli TROPONIN, HIGH SENSITIVITYon 04-04-2022 HSTROP 9.3 pg/mL Normal 4.0-51.3 [facility] Comment on above: Result Comment: CUT- OFF POINTS HAVE BEEN ESTABLISHED BASED ON THE FOURTH UNIVERSAL DEFINITIONS OF MYOCARDIAL INFARCTION. THE UPPER REFERENCE LIMIT (URL) OF TROPONIN, DEFINED THE 99TH PERCENTILE OF cTnI DISTRIBUTION IN A REFERENCE POPULATION, HAS BEEN CONFIRMED THE DECISION THRESHOLD FOR MO DIAGNOSIS. Performed By: #### G TT3P #### [facility] [address] [place] [address] Dr. Garland Kohli CBC AUTO DIFFon 03-26-2022 BASO # 0.0 103/ul Normal 0.0-0.1 [facility] Comment on above: Performed By: #### G TT3P #### [facility] [address] [place] [address] Dr. Garland Kohli Basophils/100 WBC (Bld) 0.2 % Normal 0.2-2.0 [facility] Comment on above: Performed By: #### G TT3P #### [facility] [address] [place] [address] Dr. Garland Kohli EO # 0.1 103/ul Normal 0.0-0.7 [facility] Comment on above: Performed By: #### G TT3P #### [facility] [address] [place] [address] Dr. Garland Kohli Eosinophils/100 WBC (Bld) 1.0 % Normal 0.9-7.0 [facility] Comment on above: Performed By: #### G TT3P #### [facility] [address] [place] [address] Dr. Garland Kohli Erythrocyte distribution width (RBC) [Ratio] 12.8 % Normal 11.0-15.0 [facility] Comment on above: Performed By: #### G TT3P #### [facility] [address] [address] [address] Garland Kohli Hematocrit (Bld) [Volume fraction] 36.2 % Normal 36.0-48.0 [facility] Comment on above: Performed By: #### G TT3P #### [facility] [address] [place] [address] Dr. Garland Kohli Hemoglobin (Bld) [Mass/Vol] 12.2 g/dL Normal 12.0-16.0 [facility] Comment on above: Performed By: #### G TT3P #### [facility] [address] [address] [address] Garland Kohli IG # 0.08 10e3/ul Critically high 0.00-0.03 [facility] Comment on above: Performed By: #### G TT3P #### [facility] [address] [place] [address] Dr. Garland Kohli IG % 0.9 % Critically high 0.0-0.5 [facility] Comment on above: Performed By: #### G TT3P #### [facility] [address] [place] [address] Dr. Garland Kohli LYMPH # 1.7 103/ul Normal 1.2-3.8 [facility] Comment on above: Performed By: #### G TT3P #### [facility] [address] [place] [address] Dr. Garland Kohli Lymphocytes/100 WBC (Bld) 17.8 % Critically low 20.5-60.0 [facility] Comment on above: Performed By: #### G TT3P #### [facility] [address] [place] [address] Dr. Garland Kohli MANUAL DIFF REQ NO Normal [facility] Comment on above: Performed By: #### G TT3P #### [facility] [address] [place] [address] Dr. Garland Kohli MCH (RBC) [Entitic mass] 30.7 pg Normal 26.7-34.0 [facility] Comment on above: Performed By: #### G TT3P #### [facility] [address] [address] [address] Garland Kohli MCHC (RBC) [Mass/Vol] 33.7 g/dL Normal 29.9-35.2 [facility] Comment on above: Performed By: #### G TT3P #### [facility] [address] [place] [address] Dr. Garland Kohli MCV (RBC) [Entitic vol] 91.2 fL Normal 81.0-99.0 [facility] Comment on above: Performed By: #### G TT3P #### [facility] [address] [address] [address] Garland Kohli MONO # 0.6 103/ul Normal 0.3-0.8 [facility] Comment on above: Performed By: #### G TT3P #### [facility] [address] [place] [address] Dr. Garland Kohli Monocytes/100 WBC (Bld) 6.0 % Normal 1.7-12.0 [facility] Comment on above: Performed By: #### G TT3P #### [facility] [address] [place] [address] Dr. Garland Kohli NEUT # 6.9 103/ul Critically high 1.4-6.5 [facility] Comment on above: Performed By: #### G TT3P #### [facility] [address] [place] [address] Dr. Garland Kohli Neutrophils/100 WBC (Bld) 74.1 % Normal 43.0-75.0 [facility] Comment on above: Performed By: #### G TT3P #### [facility] [address] [place] [address] Dr. Garland Kohli Platelet mean volume (Bld) [Entitic vol] 10.2 fL Normal 9.5-13.5 [facility] Comment on above: Performed By: #### G TT3P #### [facility] [address] [place] [address] Dr. Garland Kohli PLT 217 103/ul Normal 150-450 [facility] Comment on above: Performed By: #### G TT3P #### [facility] [address] [address] [address] Garland Kohli RBC 3.97 106/ul Critically low 4.20-5.40 [facility] Comment on above: Performed By: #### G TT3P #### [facility] [address] [address] [address] Garland Kohli WBC 9.3 103/ul Normal 4.0-11.0 [facility] Comment on above: Performed By: #### G TT3P #### [facility] [address] [address] [address] Garland Kohli GLUCOSE - 1HRon 03-26-2022 Glucose [Mass/Vol] 155 mg/dL Critically high 74-106 [facility] Comment on above: Performed By: #### C BC #### [facility] [address] [address] [address] Garland Kohli US PREG ANATOMY SINGLEon [...] growth detailed above. Electronically authenticated by: YAAKOV HOUSER Date: 2022-02-09 19:30 Normal [facility] AFP MATERNAL FOR SPINA BIFID Aon 01-29-2022 AFP MoM 0.76 Normal [facility] Comment on above: Performed By: #### G TT3P #### [facility] [address] [address] [address] Garland Kohli AFP Value 35.4 ng/mL Normal [facility] Comment on above: Performed By: #### G TT3P #### [facility] [address] [address] [address] Garland Kohli AFP, Serum for Spina Bifida Report Normal [facility] Comment on above: Performed By: #### G TT3P #### [facility] [address] [address] [address] Garland Kohli Comment Comment Normal [facility] Comment on above: Result Comment: Stanley Almodovar, Ph.D., [facility] Director . References: Available Upon Request. . Multiples Of Median Cutoffs For AFP Elevations Mark 2.5 Black 2.8 IDD 2.0 Twins 4.5 Abbreviation Definitions IDD - Insulin Dep Diabetes OSBR - Open Spina Bifida Risk . For further inquiries contact [employer] [facility] at [phone]. . This test was developed and its performance characteristics determined by [employer]. It has not been cleared or approved by the Food and Drug Administration. Performed By: #### G TT3P #### [facility] [address] [address] [address] Garland Izquierdo Age Collection Date 18.1 weeks Normal [facility] Comment on above: Performed By: #### G TT3P #### [facility] [address] [place] [address] Dr. Garland Kohli Gestat, Age Based on Ultrasound Normal [facility] Comment on above: Result Comment: 09:4 on 11/26/2021 Recalculations are not recommended when gestational dating by LMP and ultrasound are within 10 days. Performed By: #### G TT3P #### [facility] [address] [place] [address] Dr. Garland Kohli Insulin Dep Diabetes No Normal [facility] Comment on above: Performed By: #### G TT3P #### [facility] [address] [place] [address] Dr. Garland Kohli Interpretation Comment Normal [facility] Comment on above: Result Comment: Inte [...] Customer Services to discuss available options. The [employer] recommends amniocentesis be offered to women age 35 and older. Performed By: #### G TT3P #### [facility] [address] [place] [address] Dr. Garland Kohli [age] Normal [facility] Comment on above: Performed By: #### G TT3P #### [facility] [address] [place] [address] Dr. Garland Kohli Multiple Gestation No Normal [facility] Comment on above: Performed By: #### G TT3P #### [facility] [address] [place] [address] Dr. Gar[place] Kohli [place] [address] Normal [facility] Comment on above: Performed By: #### G TT3P #### [facility] [address] [place] [address] Dr. Garland Kohli PDF . Normal [facility] Comment on above: Performed By: #### G TT3P #### [facility] [address] [place] [address] Dr. Garland Kohli Race [facility] Comment on above: Performed By: #### G TT3P #### [facility] [address] [place] [address] Dr. Garland Kohli Test Results: Negative Normal [facility] Comment on above: Performed By: #### G TT3P #### [facility] [address] [place] [address] Dr. Garland Kohli PAP ACOG PANEL 2: 21 to 29on 01-23-2022 . . Normal [facility] Comment on above: Performed By: #### [id number] #### [facility] [address] [place] [address] Dr. Garland Kohli Age Gdln ACOG Testing [facility] Comment on above: Performed By: #### 4 [id number] #### [facility] [address] [place] [address] Dr. Garland Kohli DIAGNOSIS: Comment [facility] Comment on above: Result Comment: NEGA TIVE FOR INTRAEPITHELIAL LESION OR MALIGNANCY. Performed By: #### 4 [id number] #### [facility] [address] [place] [address] Dr. Garland Kohli Methodology: Comment [facility] Comment on above: Result Comment: This liquid based ThinPrep(R) pap test was screened with the use of an image guided system. Performed By: #### 4 [id number] #### [facility] [address] [place] [address] Dr. Garland Kohli Note: Comment [facility] Comment on above: Result Comment: The Pap smear is a screening test designed to aid in the detection of premalignant and malignant conditions of the uterine cervix. It is not a diagnostic procedure and should not be used as the sole means of detecting cervical cancer. Both false-positive and false-negative reports do occur. . Performed By: #### 4 [id number] #### [facility] [address] [place] [address] Dr. Garland Kohli Performed by: Comment [facility] Comment on above: Result Comment: Kelly Arreguin Mirror Framer (ASCP) Performed By: #### 4 [id number] #### [facility] [address] [place] [address] Dr. Garland Kohli Reflex Criteria: Comment [facility] Comment on above: Result Comment: The HPV DNA reflex criteria were not met with this specimen result therefore, no HPV testing was performed. . Performed By: #### 4 [id number] #### [facility] [address] [place] [address] Dr. Garland Kohli Specimen adequacy: Comment Normal [facility] Comment on above: Result Comment: Sati sfactory for evaluation. No endocervical component is identified. Performed By: #### 4 [id number] #### [facility] [address] [place] [address] Dr. Garland Kohli CHLAMYDIA/GONOCOCCUS JUAN (SW AB/URINE/PAPon 01-20-2022 Chlamydia trachomatis, JUAN Negative Normal Negative [facility] Comment on above: Performed By: #### C BC #### [facility] [address] [place] [address] Dr. Garland Kohli Neisseria gonorrhoeae, JUAN Negative Normal Negative [facility] Comment on above: Performed By: #### C BC #### [facility] [address] [place] [address] Dr. Garland Kohli TSHon 01-04-2022 TSH 1.707 uIU/mL Normal 0.358-3.740 [facility] Comment on above: Performed By: #### G TT3P #### [facility] [address] [place] [address] Dr. Garland Kohli HEPATITIS C VIRUS AB W/ REFL EX QUANTon 12-17-2021 HCV AB <0.1 Normal 0.0-0.9 [facility] Comment on above: Performed By: #### G TT3P #### [facility] [address] [place] [address] Dr. Garland Kohli Interpretation: Comment Normal [facility] Comment on above: Result Comment: Nega tive Not infected with HCV, unless recent infection is suspected or other evidence exists to indicate HCV infection. Performed By: #### G TT3P #### [facility] [address] [place] [address] Dr. Garland Kohli CULTURE URINEon 12-15-2021 CULTURE URINE Culture Observations : GREATER THAN TWO ORGANISMS PRESENT. PLEASE RESUBMIT CLEAN CATCH MID-STREAM URINE IF CLINICALLY INDICATED. Normal [facility] Comment on above: Performed By: #### U RCX #### [facility] [address] [place] [address] Dr. Garland Kohli HEP B SURFACE ANTIGEN SCREEN on 12-15-2021 HBsAg Screen Negative Normal Negative [facility] Comment on above: Performed By: #### H BSANS #### [facility] [address] [place] [address] Dr. Garland Kohli HIV 1 AND 2 WITH REFLEXon HIV Screen 4th Generation wRfx Non-Reactive Normal Non Reactive [facility] Comment on above: Result Comment: HIV Negative HIV-1/HIV-2 antibodies and HIV-1 p24 antigen were NOT detected. There is no laboratory evidence of HIV infection. Performed By: #### H IV12 #### [facility] [address] [place] [address] Dr. Garland Kohli RPR QUANTon 12-15-2021 Rapid Plasma Reagin, Quant Non-Reactive Normal NonRea<1:1 [facility] Comment on above: Result Comment: Plea se Note: This test does not meet current guidelines for screening and diagnosis of syphilis. This test is intended for following treatment response in patients being treated for syphilis infection. To screen for syphilis infection, a reflex cascade that includes both RPR and a treponema-specific assay should be utilized, such as Treponema pallidum (Syphilis) Screening [place] (641370) or Rapid Plasma Reagin (RPR) Test With Reflex to Quantitative RPR and Confirmatory Treponema pallidum Antibodies (707593). Performed By: #### G TT3P #### [facility] [address] [place] [address] Dr. Garland Kohli RUBELLA AB IGGon 12-15-2021 Rubella Antibodies, IgG 4.72 index Normal Immune >0.99 [facility] Comment on above: Result Comment: Non- immune <0.90 Equivocal 0.90 - 0.99 Immune >0.99 Performed By: #### G TT3P #### [facility] [address] [place] [address] Dr. Garland Kohli CBC AUTO DIFFon 12-14-2021 BASO # 0.0 103/ul Normal 0.0-0.1 [facility] Comment on above: Performed By: #### C BC #### [facility] [address] [place] [address] Dr. Garland Kohli Basophils/100 WBC (Bld) 0.3 % Normal 0.2-2.0 [facility] Comment on above: Performed By: #### C BC #### [facility] [address] [place] [address] Dr. Garland Kohli EO # 0.1 103/ul Normal 0.0-0.7 [facility] Comment on above: Performed By: #### C BC #### [facility] [address] [place] [address] Dr. Garland Kohli Eosinophils/100 WBC (Bld) 0.8 % Critically low 0.9-7.0 [facility] Comment on above: Performed By: #### C BC #### [facility] [address] [place] [address] Dr. Garland Kohli Erythrocyte distribution width (RBC) [Ratio] 12.6 % Normal 11.0-15.0 [facility] Comment on above: Performed By: #### C BC #### [facility] [address] [place] [address] Dr. Garland Kohli Hematocrit (Bld) [Volume fraction] 34.3 % Critically low 36.0-48.0 [facility] Comment on above: Performed By: #### C BC #### [facility] [address] [place] [address] Dr. Garland Kohli Hemoglobin (Bld) [Mass/Vol] 11.7 g/dL Critically low 12.0-16.0 [facility] Comment on above: Performed By: #### C BC #### [facility] [address] [place] [address] Dr. Garland Kohli IG # 0.03 10e3/ul Normal 0.00-0.03 [facility] Comment on above: Performed By: #### C BC #### [facility] [address] [place] [address] Dr. Garland Kohli IG % 0.4 % Normal 0.0-0.5 [facility] Comment on above: Performed By: #### C BC #### [facility] [address] [place] [address] Dr. Garland Kohli LYMPH # 1.5 103/ul Normal 1.2-3.8 [facility] Comment on above: Performed By: #### C BC #### [facility] [address] [place] [address] Dr. Garland Kohli Lymphocytes/100 WBC (Bld) 21.1 % Normal 20.5-60.0 [facility] Comment on above: Performed By: #### C BC #### [facility] [address] [place] [address] Dr. Garland Kohli MANUAL DIFF REQ NO Normal [facility] Comment on above: Performed By: #### C BC #### [facility] [address] [place] [address] Dr. Garland Kohli MCH (RBC) [Entitic mass] 30.5 pg Normal 26.7-34.0 [facility] Comment on above: Performed By: #### C BC #### [facility] [address] [place] [address] Dr. Garland Kohli MCHC (RBC) [Mass/Vol] 34.1 g/dL Normal 29.9-35.2 [facility] Comment on above: Performed By: #### C BC #### [facility] [address] [place] [address] Dr. Garland Kohli MCV (RBC) [Entitic vol] 89.6 fL Normal 81.0-99.0 [facility] Comment on above: Performed By: #### C BC #### [facility] [address] [place] [address] Dr. Garland Kohli MONO # 0.5 103/ul Normal 0.3-0.8 [facility] Comment on above: Performed By: #### C BC #### [facility] [address] [place] [address] Dr. Garland Kohli Monocytes/100 WBC (Bld) 7.1 % Normal 1.7-12.0 [facility] Comment on above: Performed By: #### C BC #### [facility] [address] [address] [address] Garland Kohli NEUT # 5.0 103/ul Normal 1.4-6.5 [facility] Comment on above: Performed By: #### C BC #### [facility] [address] [address] [address] Garland Kohli Neutrophils/100 WBC (Bld) 70.3 % Normal 43.0-75.0 [facility] Comment on above: Performed By: #### C BC #### [facility] [address] [address] [address] Garland Kohli Platelet mean volume (Bld) [Entitic vol] 10.1 fL Normal 9.5-13.5 [facility] Comment on above: Performed By: #### C BC #### [facility] [address] [address] [address] Garland Kohli PLT 234 103/ul Normal 150-450 [facility] Comment on above: Performed By: #### C BC #### [facility] [address] [address] [address] Garland Kohli RBC 3.83 106/ul Critically low 4.20-5.40 [facility] Comment on above: Performed By: #### C BC #### [facility] [address] [address] [address] Garland Kohli WBC 7.1 103/ul Normal 4.0-11.0 [facility] Comment on above: Performed By: #### C BC #### [facility] [address] [address] [address] Garland Kohli GLYCOHEMOGLOBIN A1Con 2021 ADA RECOMMENDATION SEE BELOW Normal [facility] Comment on above: Result Comment: ADA RECOMMENDED LIMIT 4.0 - 6.0 ADA THERAPEUTIC TARGET < 7.0 ACTION SUGGESTED > 7.0 Performed By: #### A 1C #### [facility] [address] [address] [address] Garland Kohli Glucose [Mass/Vol] 103 mg/dL Normal [facility] Comment on above: Performed By: #### A 1C #### [facility] [address] [address] [address] Garland Kohli HbA1c (Bld) [Mass fraction] 5.2 % Normal 4.5-6.2 [facility] Comment on above: Performed By: #### A 1C #### [facility] [address] [place] [address] Dr. Garland Kohli MARTÍNEZ BOX TEST PT SEND OUTo n 12-14-2021 SENT TO REF LAB 12/14/21 Normal [facility] Comment on above: Performed By: #### G TT3P #### [facility] [address] [place] [address] Dr. Garland Kohli TYPE AND SCREENon 12-14-2021 TYPE AND SCREEN Negative [facility] Comment on above: Performed By: #### C BC #### [facility] [address] [place] [address] Dr. Garland Kohli US PREG TVon 11-26-2021 [...] to document resolution. Electronically authenticated by: YAAKOV HOUSER Date: 2021-11-26 18:36 Normal [facility] OPERATIVE REPORTon 9 OPERATIVE REPORT [address] [id number] OPERATIVE REPORT PATIENT NAME: CECELIA JOHNSON : 1995 MED REC NO: [id number] ROOM: ACCOUNT NO: [id number] ADMIT DATE: 11/24/2018 PROVIDER: Mode Renee DATE [...] of the case. MODE RENEE [id number] Doc#: [id number] CC: Carlos Alberto Coleman [facility] Surgical Pathologyon 019 Surgical Pathology (NOTE) [id number] [place], [place] [id number] SURGICAL PATHOLOGY REPORT Patient Name: CECELIA JOHNSON MR#: [id number] Specimen #[id number] Final Diagnosis SPECIMEN A : BREAST AND [...] OF SKIN. NEGATIVE FOR MALIGNANCY OR ATYPIA. [facility] Brian Nicolas M.D. Electronically Signed Out 11/26/2018 Clinical [...] The entire specimen weighs 453 grams. Multiple insurance claims representative sections are submitted in five cassettes [...] also sampled in multiple different areas and insurance claims representative sections are submitted in five cassettes for microscopic examination. Microscopic Description Specimen A : Five RICHARD glass slides are received. Microscopic examination is performed. Specimen B : Five RICHARD glass slides are received. Microscopic examination is performed. Normal [facility] Comment on above: Performed By: #### P PPES #### [facility] [address] [place] [address] Bagman/Woman: Victor Manuel Hunter DO CNOVSPon 11-18-2018 CNOVSP Visit (SP) Office (HEMASA) CECELIA JOHNSON ([id number]) 1995 F Date Time Provider Department 11/18/18 1:00 PM JAZ MOULTON) HEMASA During your visit today, we recorded the following information about you: Temperature Pulse Respiration Blood pressure 97.9 degrees 82/minute 18/minute 122/78 Weight Height Last Period 82.7 kg 1.6 m 10/15/18 Jaz Moulton MD 11/18/2018 3:08 PM Signed PATIENT NAME: Cecelia Johnson CLINIC NO.: [id number] ATTENDING PHYSICIAN: Jaz Moulton MD DATE OF [...] file Gets together: Not on file Attends congregation service: Not on file Active member of [...] below. Jaz Moulton M.D. Hematology/Medical Oncology [facility] [phone] CC: Carlos Alberto Coleman MD - (Inactive), In Basket (Inactive) - User (Inactive) [address] [place] [address] (Ph) Mode Renee MD Referring Provider: [...] Nathan - Fully Assessed Visit Diagnosis:MTHFR mutation ([facility]) [E72.12] Prescriptions as of 11/18/2018 [...] Of Date 11/18/2018 Noted Resolved MTHFR mutation ([facility]) [E72.12] INVALID FOR* Encounter Status:Closed by JAZ MOULTON [facility] 11-18-2018 PROGRESS HNO ID: [id number] Author: Jaz Moulton Service: ? Author Type: Physician Type: Progress Notes Filed: 11/18/2018 3:08 PM Note Text: PATIENT NAME: [facility] NO.: [id number] ATTENDING PHYSICIAN: Jaz Moulton MD DATE OF [...] file Gets together: Not on file Attends congregation service: Not on file Active member of [...] below. Jaz Moulton M.D. Hematology/Medical Oncology [facility] [place] [facility] [address] [phone] CC: Carlos Alberto Coleman MD - (Inactive), In Basket (Inactive) - User (Inactive) [address] [facility] [phone] (Ph) Mode Renee MD [facility] Basic Metabolic Profon 11-10 (cont.) [facility] Comment on above: Result Comment: Aver age GFR for 20-29 years old: 116 mL/min/1.73sq m Chronic Kidney Disease: <60 mL/min/1.73sq m Kidney failure: <15 mL/min/1.73sq m eGFR calculated using average adult body mass. Additional eGFR calculator available at: http://www.Verisim.Twitch/multiple_crcl_2012.htm Performed By: #### C DP, BMP #### [facility] [address] [facility] [place], [place] [id number] Bagman/Woman: Victor Manuel Hunter, DO Anion gap [Moles/Vol] 11 mmol/L Normal 9-17 [facility] Comment on above: Performed By: #### C DP, BMP #### [facility] [address] [facility] [place] [address] Bagman/Woman: Victor Manuel Hunter, Calcium [Mass/Vol] 9.7 mg/dL Normal 8.6-10.4 [facility] Comment on above: Performed By: #### C DP, BMP #### [facility] [address] [facility] [place] [address] Bagman/Woman: Victor Manuel Hunter DO Chloride [Moles/Vol] 102 mmol/L Normal 98-107 [facility] Comment on above: Performed By: #### C DP, BMP #### [facility] [address] [place] [address] Bagman/Woman: Victor Manuel Hunter DO CO2 [Moles/Vol] 26 mmol/L Normal 20-31 [facility] Comment on above: Performed By: #### C DP, BMP #### [facility] [place] [address] Bagman/Woman: Victor Manuel Hunter DO Creatinine [Mass/Vol] 0.49 mg/dL Low 0.50-0.90 [facility] Comment on above: Performed By: #### C FARAZ, BMP #### [facility] [place] [address] Bagman/Woman: Victor Manuel Hunter DO GFR, Amer >60 Normal >60 [facility] Comment on above: Performed By: #### C DP, BMP #### [facility] [place] [address] Bagman/Woman: Victor Manuel Hunter DO GFR,non Amer >60 Normal >60 [facility] Comment on above: Performed By: #### C DP, BMP #### [facility] [place] [address] Bagman/Woman: Victor Manuel Hunter DO Glucose [Mass/Vol] 88 mg/dL Normal 70-99 [facility] Comment on above: Performed By: #### C DP, BMP #### [facility] [place] [address] Bagman/Woman: Victor Manuel Hunter DO Potassium [Moles/Vol] 4.3 mmol/L Normal 3.7-5.3 [facility] Comment on above: Performed By: #### C DP, BMP #### [facility] [address] [place] [address] Bagman/Woman: Victor Manuel Hunter DO Sodium [Moles/Vol] 139 mmol/L Normal 135-144 [facility] Comment on above: Performed By: #### C DP, BMP #### [facility] [address] [place] [address] Bagman/Woman: Victor Manuel Hunter DO Urea nitrogen [Mass/Vol] 8 mg/dL Normal -20 [facility] Comment on above: Performed By: #### C DP, BMP #### [facility] [address] [place] [address] Bagman/Woman: Victor Manuel Hunter DO BUN/CRE Ratio NOT REPORTED Normal -20 [facility] Comment on above: Performed By: #### C FARAZ, BMP #### [facility] [address] [place] [address] Bagman/Woman: Victor Manuel Hunter DO Staging: NOT REPORTED Normal [facility] Comment on above: Performed By: #### C FARAZ, BMP #### [facility] [address] [place] [address] Bagman/Woman: Victor Manuel Hunter DO CBC with Diffon 11-10-2018 Abs. Basophil 0.00 k/uL Normal 0.0-0.2 [facility] Comment on above: Performed By: #### C DP, BMP #### [facility] [address] [place] [address] Bagman/Woman: Victor Manuel Hunter DO Abs.Neutrophil (Seg) 3.00 k/uL Normal 1.3-9.1 [facility] Comment on above: Performed By: #### C DP, BMP #### [facility] [address] [facility] [place] [address] Bagman/Woman: Victor Manuel Hunter DO Basophils/100 WBC (Bld) 0 % Normal 0-2 [facility] Comment on above: Performed By: #### C DP, BMP #### [facility] [place] [address] Bagman/Woman: Victor Manuel Hunter DO Eosinophils (Bld) [#/Vol] 0.10 10*3/uL Normal 0.0-0.4 [facility] Comment on above: Performed By: #### C DP, BMP #### [facility] [address] [place] [address]. [place] [address] Bagman/Woman: Victor Manuel Hunter DO Eosinophils/100 WBC (Bld) 1 % Normal 0-4 [facility] Comment on above: Performed By: #### C DP, BMP #### [facility] [address] [place] [address]. [place] [address] Bagman/Woman: Victor Manuel Hunter DO Erythrocyte distribution width (RBC) [Ratio] 12.7 % Normal 11.5-14.9 [facility] Comment on above: Performed By: #### C DP, BMP #### [facility] [address] [place] [address]. [place] [address] Bagman/Woman: Victor Manuel Hunter DO Hematocrit (Bld) [Volume fraction] 42.3 % Normal 36-46 [facility] Comment on above: Performed By: #### C DP, BMP #### [facility] [address] [place] [address]. [place] [address] Bagman/Woman: Victor Manuel Hunter DO Hemoglobin (Bld) [Mass/Vol] 14.3 g/dL Normal 12.0-16.0 [facility] Comment on above: Performed By: #### C DP, BMP #### [facility] [address] [place] [address] Bagman/Woman: Victor Manuel Hunter DO Lymphocytes (Bld) [#/Vol] 1.70 10*3/uL Normal 1.0-4.8 [facility] Comment on above: Performed By: #### C DP, BMP #### [facility] [address] [place] [address] Bagman/Woman: Victor Manuel Hunter DO Lymphocytes/100 WBC (Bld) 32 % Normal 24-44 [facility] Comment on above: Performed By: #### C FARAZ, BMP #### [facility] [address] [place] [address] Bagman/Woman: Victor Manuel Hunter DO MCH (RBC) [Entitic mass] 30.0 pg Normal 26-34 [facility] Comment on above: Performed By: #### C FARAZ, BMP #### [facility] [address] [place] [address] Bagman/Woman: Victor Manuel Hunter DO MCHC (RBC) [Mass/Vol] 33.7 g/dL Normal 31-37 [facility] Comment on above: Performed By: #### C FARAZ, BMP #### [facility] [address] [place] [address] Bagman/Woman: Victor Manuel Hunter DO MCV (RBC) [Entitic vol] 89.0 fL Normal 80-100 [facility] Comment on above: Performed By: #### C DP, BMP #### [facility] [address] [place] [address] Bagman/Woman: Victor Manuel Hunter DO Monocytes (Bld) [#/Vol] 0.60 10*3/uL Normal 0.1-1.3 [facility] Comment on above: Performed By: #### C DP, BMP #### [facility] [facility] [address] [place] [address] [place] [address] Bagman/Woman: Victor Manuel Hunter DO Monocytes/100 WBC (Bld) 11 % High 1-7 [facility] Comment on above: Performed By: #### C DP, BMP #### [facility] [address] [facility] [place] [address] Bagman/Woman: Victor Manuel Hunter DO Neutrophil (Seg) 56 % Normal 36-66 [facility] Comment on above: Performed By: #### C DP, BMP #### [facility] [address] [facility] [place] [address] Bagman/Woman: Victor Manuel Hunter DO Platelet mean volume (Bld) [Entitic vol] 9.4 fL Normal 6.0-12.0 [facility] Comment on above: Performed By: #### C FARAZ, BMP #### [facility] [place] [address] Bagman/Woman: Victor Manuel Hunter DO Platelets (Bld) [#/Vol] 252 10*3/uL Normal 150-450 [facility] Comment on above: Performed By: #### C FAARZ, BMP #### [facility] [place] [place] [address] Bagman/Woman: Victor Manuel Hunter DO RBC (Bld) [#/Vol] 4.75 10*6/uL Normal 4.0-5.2 [facility] Comment on above: Performed By: #### C FARAZ, BMP #### [facility] [place] [place] [address] Bagman/Woman: Victor Manuel Hunter DO WBC (Bld) [#/Vol] 5.3 10*3/uL Normal 3.5-11.0 [facility] Comment on above: Performed By: #### C DP, BMP #### [facility] [address] [place] [address] Bagman/Woman: Victor Manuel Hunter DO Abs.Imm.Granulocyte NOT REPORTED Normal 0.00-0.30 [facility] Comment on above: Performed By: #### C DP, BMP #### [facility] [address] [place] [address] Bagman/Woman: Victor Manuel Hunter DO Auto Diff Performed NOT REPORTED Normal [facility] Comment on above: Performed By: #### C DP, BMP #### [facility] [address] [place] [address] Bagman/Woman: Victor Manuel Hunter DO Immature granulocytes (Bld) [#/Vol] NOT REPORTED Normal 0 [facility] Comment on above: Performed By: #### C DP, BMP #### [facility] [address] [place] [address] Bagman/Woman: Victor Manuel Hunter DO NRBC Automated NOT REPORTED Normal [facility] Comment on above: Performed By: #### C DP, BMP #### [facility] [address] [place] [address] Bagman/Woman: Victor Manuel Hunter DO Platelets (Bld) [#/Vol] NOT REPORTED Normal [facility] Comment on above: Performed By: #### C DP, BMP #### [facility] [address] [place] [address] Bagman/Woman: Victor Manuel Hunter DO RBC morphology finding Nom (Bld) NOT REPORTED Normal [facility] Comment on above: Performed By: #### C DP, BMP #### [facility] [address] [place] [address] Bagman/Woman: Victor Manuel Hunter DO WBC Morphology NOT REPORTED Normal [facility] Comment on above: Performed By: #### C DP, BMP #### [facility] [address] [place] [address] Bagman/Woman: Victor Manuel Hunter DO Vital Signs Date Time Vital Sign Value Performing Clinician Facility 05-25-2024 14:24-0500 Body mass index (BMI) [Ratio] 33.03 kg/m2 Herber Nnamdi DO Work Phone: [facility] 05-25-2024 14:24-0500 Body weight 87.27 kg Herber Nnamdi DO Work Phone: [facility] 05-25-2024 14:24-0500 Diastolic blood pressure 84 mm[Hg] Herber Nnamdi DO Work Phone: [facility] 05-25-2024 14:24-0500 Systolic blood pressure 124 mm[Hg] Herber Nnamdi DO Work Phone: [facility] 05-09-2024 16:07-0500 Body mass index (BMI) [Ratio] 32.61 kg/m2 Tori Ormond [place] PA Work Phone: [facility] 05-09-2024 16:07-0500 Body weight 86.18 kg Tori [place] PA Work Phone: [facility] 05-09-2024 16:07-0500 Diastolic blood pressure 82 mm[Hg] Tori [place] PA Work Phone: [facility] 05-09-2024 16:07-0500 Systolic blood pressure 120 mm[Hg] Tori [place] PA Work Phone: [facility] 05-03-2024 16:38-0500 Body height 162.6 cm Tori Warchol DOOR FITTER Work Phone: [facility] 05-03-2024 16:38-0500 Body mass index (BMI) [Ratio] 32.3 kg/m2 Tori Warchol DOOR FITTER Work Phone: [facility] 05-03-2024 16:38-0500 Body temperature 97.59 [degF] Tori Warchol DOOR FITTER Work Phone: [facility] 05-03-2024 16:38-0500 Body weight 85.37 kg Tori Martinez DOOR FITTER Work Phone: [facility] 05-03-2024 16:38-0500 Diastolic blood pressure 72 mm[Hg] Tori Martinez DOOR FITTER Work Phone: [facility] 05-03-2024 16:38-0500 Heart rate 93 /min Tori Martinez DOOR FITTER Work Phone: [facility] 05-03-2024 16:38-0500 SaO2% (BldA) [Mass fraction] 99 % Tori Martinez DOOR FITTER Work Phone: [facility] 05-03-2024 16:38-0500 Systolic blood pressure 124 mm[Hg] Tori Martinez DOOR FITTER Work Phone: [facility] 04-21-2024 08:49-0500 Body mass index (BMI) [Ratio] 32.06 kg/m2 Herber Nnamdi DO Work Phone: [facility] 04-21-2024 08:49-0500 Body weight 84.73 kg Herber Nnamdi DO Work Phone: [facility] 04-21-2024 08:49-0500 Diastolic blood pressure 72 mm[Hg] Herber Nnamdi DO Work Phone: [facility] 04-21-2024 08:49-0500 Systolic blood pressure 104 mm[Hg] Herber Nnamdi DO Work Phone: [facility] 04-13-2024 15:58-0500 Body mass index (BMI) [Ratio] 31.78 kg/m2 Tori SHIRLEY Work Phone: [facility] 04-13-2024 15:58-0500 Body weight 83.97 kg Tori SHIRLEY Work Phone: [facility] 04-13-2024 15:58-0500 Diastolic blood pressure 80 mm[Hg] Tori SHIRLEY Work Phone: [facility] 04-13-2024 15:58-0500 Systolic blood pressure 120 mm[Hg] Tori SHIRLEY Work Phone: [facility] 04-06-2024 16:29-0500 Body mass index (BMI) [Ratio] 31.65 kg/m2 Tori [place]rm[place] PA Work Phone: [facility] 04-06-2024 16:29-0500 Body weight 83.64 kg Tori Dwight PA Work Phone: [facility] 04-06-2024 16:29-0500 Diastolic blood pressure 74 mm[Hg] Tori Dwight PA Work Phone: [facility] 04-06-2024 16:29-0500 Systolic blood pressure 112 mm[Hg] Tori Dwight PA Work Phone: [facility] 03-09-2024 16:25-0500 Body mass index (BMI) [Ratio] 30.88 kg/m2 Tori Dwight PA Work Phone: [facility] 03-09-2024 16:25-0500 Body weight 81.6 kg Tori Dwight PA Work Phone: [facility] 03-09-2024 16:25-0500 Diastolic blood pressure 70 mm[Hg] Tori [place] PA Work Phone: [facility] 03-09-2024 16:25-0500 Systolic blood pressure 114 mm[Hg] Tori [place] PA Work Phone: [facility] 02-10-2024 14:44-0400 Body mass index (BMI) [Ratio] 29.39 kg/m2 Herber Nnamdi DO Work Phone: [facility] 02-10-2024 14:44-0400 Body weight 77.68 kg Herber Nnamdi DO Work Phone: [facility] 02-10-2024 14:44-0400 Diastolic blood pressure 68 mm[Hg] Herber Nnamdi DO Work Phone: [facility] 02-10-2024 14:44-0400 Systolic blood pressure 116 mm[Hg] Herber Nnamdi DO Work Phone: [facility] 01-11-2024 16:03-0400 Body mass index (BMI) [Ratio] 28.06 kg/m2 Herber Nnamdi DO Work Phone: [facility] 01-11-2024 16:03-0400 Body weight 74.16 kg Herber Nnamdi DO Work Phone: [facility] 01-11-2024 16:03-0400 Diastolic blood pressure 72 mm[Hg] Herber Nnamdi DO Work Phone: [facility] 01-11-2024 16:03-0400 Systolic blood pressure 118 mm[Hg] Herber Nnamdi DO Work Phone: [facility] 01-29-2022 02:06-0400 Body weight 67.[address] ZEN BREWER . [facility] Comment on above: Performed By: #### [id number] #### [facility] [address] [place] [address] Dr. Garland Kohli Encounters Encounter Date Encounter Type Care Provider Facility Start: 05-25-2024 End: 05-25-2024 flow sheet Herber Nnamdi DO Work Phone: [facility] Comment on above: 34 weeks gestation o f ; Third trimester Start: 05-25-2024 End: 05-25-2024 Bamboo flowsheet Herber Nnamdi DO Work Phone: [facility] Start: 05-25-2024 End: 05-25-2024 Bamboo flowsheet Herber Nnamdi DO Work Phone: [facility] Start: 05-24-2024 End: 05-24-2024 Clinisync Result Encounter Herber Nnamdi DO Work Phone: [facility] Unsolicited Start: 05-24-2024 End: 05-24-2024 Clinisync Result Encounter Herber Nnamdi DO Work Phone: [facility] Unsolicited Start: 05-09-2024 End: 05-09-2024 flow sheet Tori SHIRLEY Work Phone: [facility] Comment on above: 32 weeks gestation o f ; Third trimester Start: 05-09-2024 End: 05-09-2024 ambulatory TORI PEPE Not Available Start: 05-09-2024 End: 05-09-2024 Bamboo flowsheet Tori Pepe PA Work Phone: [facility] Start: 05-09-2024 End: 05-09-2024 Bamboo flowsheet Tori Pepe PA Work Phone: [facility] Start: 05-03-2024 End: 05-03-2024 Office outpatient visit 25 minutes Tori Martinez DOOR FITTER Work Phone: [facility] Comment on above: Need for follow-up c are after discharge (Primary Dx) Start: 05-03-2024 End: 05-03-2024 ambulatory TORI MARTINEZ Not Available Start: 05-03-2024 End: 05-03-2024 Bamboo flowsheet Tori Martinez DOOR FITTER Work Phone: [facility] Start: 05-03-2024 End: 05-03-2024 Bamboo flowsheet Tori Martinez DOOR FITTER Work Phone: [facility] Start: 04-21-2024 [...] Start: 04-13-2024 End: 04-13-2024 flow sheet Tori Pepe PA Work Phone: [facility] Comment on above: 28 weeks gestation o f ; Second trimester ; Gestational diabetes mellitus (GDM), antepartum, gestational diabetes method of control unspecified; Anxiety, generalized (CMS/HCC); Nausea; Hypothyroidism, unspecified type (CMS/HCC) Start: 04-13-2024 End: 04-13-2024 ambulatory TORI PEPE Not Available Start: 04-13-2024 End: 04-13-2024 Bamboo flowsheet Tori Pepe PA Work Phone: [facility] Start: 04-13-2024 End: 04-13-2024 Bamboo flowsheet Tori Pepe PA Work Phone: [facility] Start: 04-06-2024 End: 04-06-2024 ambulatory TORI PEPE Not Available Start: 04-06-2024 End: 04-06-2024 flow sheet Tori SHIRLEY Work Phone: [facility] Comment on above: Second trimester pre gnancy; 27 weeks gestation of Start: 04-06-2024 End: 04-06-2024 Bamboo flowsheet Tori SHIRLEY Work Phone: [facility] Start: 04-06-2024 End: 04-06-2024 Bamboo flowsheet Tori Pepe PA Work Phone: [facility] Start: 03-19-2024 End: 03-19-2024 Clinisync Result Encounter Tori SHIRLEY Work Phone: [facility] External Department Unsolicited Start: 03-19-2024 End: 03-19-2024 Clinisync Result Encounter Tori SHIRLEY Work Phone: [facility] External Department Unsolicited Start: 03-09-2024 End: 03-09-2024 ambulatory TORI PEPE Not Available Start: 03-09-2024 End: 03-09-2024 flow sheet Tori Pepe PA Work Phone: [facility] Comment on above: Encounter for follow -up ultrasound of anatomy; Second trimester ; 23 weeks gestation of ; Hypothyroidism, unspecified type (CMS/HCC); Diabetes mellitus screening; Anxiety, generalized (CMS/HCC) Start: 03-09-2024 End: 03-09-2024 Bamboo flowsheet Tori Pepe PA Work Phone: [facility] Start: 03-09-2024 End: 03-09-2024 Bamboo flowsheet Tori Pepe PA Work Phone: [facility] Start: 02-10-2024 End: 02-10-2024 ambulatory HERBER NNAMDI Not Available Start: 02-10-2024 End: 02-10-2024 Bamboo flowsheet Herber Nnamdi DO Work Phone: [facility] Start: 02-10-2024 End: 02-17-2024 Bamboo flowsheet Herber Nnamdi DO Work Phone: [facility] Start: 02-10-2024 End: 02-17-2024 Clinisync Result Encounter Generic External Data Provider [facility] External [facility] Unsolicited Start: 02-10-2024 End: 02-10-2024 Patient encounter procedure Herber Nnamdi DO Work Phone: [facility] Start: 02-10-2024 End: 02-10-2024 Periodic preventive med est patient 18-39 yrs Herber Nnamdi DO Work Phone: [facility] Comment on above: Well [...] flow sheet Herber Nnamdi DO Work Phone: [facility] Comment on above: Second [...] procedure MD Carlos Alberto Coleman Work Phone: [facility] Start: 07-13-2023 End: 07-13-2023 ambulatory MD Carlos Alberto Coleman Work Phone: [facility] Work Phone: Start: 07-13-2023 End: 07-13-2023 ambulatory SOFIE R LAUSE Not Available Start: 06-02-2023 Refill Tori Warchol DOOR FITTER Work Phone: [facility] Comment on [...] without abnormal findings DR ZEN BREWER . [facility] Start: 01-17-2022 End: 01-17-[address] ZEN BREWER . Facility:[facility] Start: 01-17-2022 End: 01-17-2022 Encounter for gynecological examination (general) (routine) without abnormal findings DR ZEN BREWER . Facility:[facility] Start: 01-04-2022 End: 01-05-2022 ambulatory ÁNGEL SINHA Facility:[facility] Start: 12-14-2021 End: 12-15-[address] ZEN BREWER . Facility:[facility] Start: 11-26-2021 End: 11-27-2021 ambulatory ÁNGEL SINHA Facility: Start: 11-24-2018 End: 11-24-2018 Patient encounter procedure [facility] Start: 11-10-2018 End: 11-15-2018 Patient encounter procedure [facility] Procedures Date Procedure Procedure Detail Performing Clinician Start: 05-25-2024 Urnls dip stick/tabl et rgnt non-auto w/o micrscp Herber Nnamdi DO Work Phone: Start: 05-24-2024 US OB BPP W NON-STRESS Herber Nnamdi DO Work Phone: Start: 05-09-2024 Urnls dip stick/tabl et rgnt non-auto w/o micrscp Tori Pepe PA Work Phone: Start: 04-21-2024 Urnls dip stick/tabl et rgnt non-auto w/o micrscp Herber Nnamdi DO Work Phone: Start: 04-13-2024 Urnls dip stick/tabl et rgnt non-auto w/o micrscp Tori SHIRLEY Work Phone: Start: 04-06-2024 Urnls dip stick/tabl et rgnt non-auto w/o micrscp [facility] Work Phone: Start: 03-19-2024 ALL CBC WITH AUTO DIFF Generic External Data Provider Start: 02-10-2024 Urnls dip stick/tabl et rgnt non-auto w/o micrscp Herber Nnamdi DO Work Phone: Start: 02-10-2024 IGP[facility]APTIMA [facility] Work Phone: Start: 02-10-2024 Microscopic observat ion [Identifier] in Cervix by Cyto stain Tori SHIRLEY Work Phone: Start: 02-10-2024 Cytp cerv/vag auto t hin layer prep mnl screen Tori SHIRLEY Work Phone: Start: 01-22-2024 ALL THYROID STIM HORMONE Herber Nnamdi DO Work Phone: Start: 01-11-2024 Urnls dip stick/tabl et rgnt non-auto w/o micrscp [facility] Work Phone: Start: 07-13-2023 Respiratory [...] PATIENT NORMA RENEE Start: 11-24-2018 BEDREST MODE GUP TA Start: 11-24-2018 Continuous pulse oximetry MODE RENEE Start: 11-24-2018 ENCOURAGE DEEP BREAT MARIANNA AND COUGHING MODE RENEE Start: 11-24-2018 NURSING COMMUNICATION M TYRA RENEE Start: 11-24-2018 Urine test visual color cmprsn meths MODE RENEE Start: 11-24-2018 INITIATE OXYGEN THER APY PROTOCOL MODE RENEE Start: 11-24-2018 NOTIFY PHYSICIAN (SPECIFY) MODE RENEE Start: 11-24-2018 VITAL SIGNS MODE HURT TA Start: 11-10-2018 Ecg routine ecg w/le ast [...] 2024 Influenza vaccination Influenza Vacc ine (#1) [facility] Comment on above: Postponed from 12/26 (Patient Refused) Start: 05-30-2024 End: 05-30-2024 Patient encounter procedure 05/30/2024 3:00 PM EST Routine [facility] [address] [place] [phone] Herber Coto, DO [address] [place] [address] [facility] Start: 05-25-2024 End: 05-25-2024 Patient encounter procedure 05/25/2024 2:10 PM EST Routine [facility] [address] [place] [phone] Herber Coto, DO [address] [place] [address] [facility] Start: 05-09-2024 End: 05-09-2024 Patient encounter procedure [facility] Comment on above: Arrived Start: 05-03-2024 End: 05-03-2024 Patient encounter procedure 05/03/2024 4:40 PM EST Office Visit [facility] [address] [place] [id number] Tori Martinez, DOOR FITTER [address] [place] [address] Need for follow-up care after discharge (Primary Dx) [facility] Comment on above: Need for follow-up c are after discharge (Primary Dx) Start: 04-21-2024 End: 04-21-2024 Patient encounter procedure 04/21/2024 8:30 AM EST Routine [facility] [address] [place] [address] Herber Coto DO [address] [place], [place] [id number] [facility] Start: 04-13-2024 End: 04-13-2024 [...] PM EST Routine [facility] [address] [place] [address] Tori Pepe, PA [address] [place], [place] [id number] [facility] Start: 04-03-2024 End: 03-04-2025 US for US OB INCOMPLETE ANATOMY Imaging Routine Encounter for follow-up ultrasound of anatomy Expected: 04/03/2024 (Approximate), Expires: 03/04/2025 [facility] Work Phone: Comment on above: Expected: 04/03/2024 (Approximate), Expires: 03/04/2025 Start: 03-09-2024 End: 03-09-2024 Patient encounter procedure 03/09/2024 3:50 PM EST Routine [facility] [address] [place] [phone] Tori Pepe PA [address] [place] [address] [facility] Start: 03-09-2024 End: 03-09-2025 CBC panel - Blood by Automated count CBC Lab Routine Diabetes mellitus screening Expected: 03/09/2024 (Approximate), Expires: 03/09/2025 [facility] Comment on above: Expected: 03/09/2024 (Approximate), Expires: 03/09/2025 Start: 03-09-2024 End: 03-09-2025 Measurement of glucose 1 hour after glucose challenge for glucose tolerance test Glucose tolerance, 1 hour Lab Routine Diabetes mellitus screening Expected: 03/09/2024 (Approximate), Expires: 03/09/2025 [facility] Comment on above: Expected: 03/09/2024 (Approximate), Expires: 03/09/2025 Start: 03-09-2024 End: 03-09-2025 US for US OB SCAN FOR GROWTH Imaging Routine Hypothyroidism, unspecified type (CMS/HCC) Expected: 03/09/2024 (Approximate), Expires: 03/09/2025 [facility] Comment on above: Expected: 03/09/2024 (Approximate), Expires: 03/09/2025 Start: 02-10-2024 End: 02-09-2025 Alpha fetoprotein, maternal Alpha fetoprotein, maternal Lab Routine Second trimester 19 weeks gestation of Expected: 02/10/2024 (Approximate), Expires: 02/09/2025 [facility] Comment on above: Expected: 02/10/2024 (Approximate), Expires: 02/09/2025 Start: 02-10-2024 End: 02-09-2025 US for US OB ANATOMY SINGLE W US OB CERVICAL LENGTH Imaging Routine Screening, , for anatomic survey Expected: 02/10/2024 (Approximate), Expires: 02/09/2025 [facility] Comment on above: Expected: 02/10/2024 (Approximate), Expires: 02/09/2025 Start: 02-10-2024 End: 02-10-2024 Patient encounter procedure 02/10/2024 1:50 PM EDT Routine [facility] [address] [place] [phone] Herber Coto, DO [address], [place] [phone] [facility] Start: 01-11-2024 End: 01-11-2024 Patient encounter procedure 01/11/2024 3:50 PM EDT Routine [facility] [address] [place] [phone] Herber Coto, DO [address] [place] [address] Arrived [facility] Comment on above: Arrived Start: 12-27-2023 Influenza vaccination Influenza Vacc ine (#1) [facility] Start: 10-25-2023 Influenza vaccination Influenza Vacc ine (#1) [facility] Comment on above: Postponed from 12/26 (Patient Refused) Start: 10-25-2023 Screening for malign ant neoplasm of cervix [facility] Start: 07-17-2023 End: 07-17-2023 Patient encounter procedure 07/17/2023 8:00 AM EDT Office Visit [facility] [address] [place] [phone] Tori Martinez, DOOR FITTER [address] [place] [address] [facility] Start: 2014 Screening for malign ant neoplasm of cervix Pap Smear [facility] CHLAMYDIA TRACHOMATI S (GENITO/STI) CHLAMYDIA TRACHOMATIS (GENITO/STI) Lab Routine Screen for STD (sexually transmitted disease) Vaginal discharge Ordered: 02/10/2024 [facility] Comment on above: Ordered: 02/10/2024 Cytology Cervical or vaginal smear or scraping study Pap Smear Pathology and Cytology Routine Well woman exam with routine gynecological exam Ordered: 02/10/2024 [facility] Comment on above: Ordered: 02/10/2024 Human papilloma viru s DNA [Presence] in Unspecified specimen by Probe with amplification HPV DNA probe, amplified Microbiology Routine Well woman exam with routine gynecological exam Ordered: 02/10/2024 [facility] Comment on above: Ordered: 02/10/2024 Neisseria gonorrhoea e DNA [Presence] in Unspecified specimen by JUAN with probe detection Neisseria gonorrhea DNA probe, direct Lab Routine Screen for STD (sexually transmitted disease) Vaginal discharge Ordered: 02/10/2024 [facility] Comment on above: Ordered: 02/10/2024 SURESWAB(R) ADVANCED VAGINITIS PLUS, TMA SURESWAB(R) ADVANCED VAGINITIS PLUS, TMA Pathology and Cytology Routine Screen for STD (sexually transmitted disease) Vaginal discharge Ordered: 02/10/2024 [facility] Work Phone: Comment on above: Ordered: 02/10/2024 Thyrotropin [Units/volume] in Serum or Plasma TSH Lab Routine Other specified hypothyroidism (CMS/HCC) Ordered: 01/11/2024 [facility] Work Phone: Comment on above: Ordered: 01/11/2024 Thyrotropin [Units/volume] in Serum or Plasma TSH Lab Routine Hypothyroidism, unspecified type (CMS/HCC) Ordered: 04/13/2024 [facility] Comment on above: Ordered: 04/13/2024 Immunizations Immunization Date Immunization Notes Care Provider Byron carlson 05-05-2015 tetanus toxoid, redu catherine diphtheria toxoid, and acellular pertussis vaccine, adsorbed Troi Warchol DOOR FITTER Work Phone: [facility] 02-14-2009 influenza, seasonal, injectable Tori Warchol DOOR FITTER Work Phone: [facility] 02-14-2009 influenza virus vacc ine, unspecified formulation Tori Warchol DOOR FITTER Work Phone: [facility] 12-12-2005 hepatitis A vaccine, unspecified formulation Tori Warchol DOOR FITTER Work Phone: [facility] 12-12-2005 tetanus toxoid, redu catherine diphtheria toxoid, and acellular pertussis vaccine, adsorbed Tori Warchol DOOR FITTER Work Phone: [facility] 11-19-1998 diphtheria, tetanus toxoids and acellular pertussis vaccine, unspecified formulation Tori Warchol DOOR FITTER Work Phone: [facility] 11-19-1998 measles, mumps and rubella virus vaccine Tori Warchol DOOR FITTER Work Phone: [facility] 11-19-1998 trivalent poliovirus vaccine, live, oral Tori Warchol DOOR FITTER Work Phone: [facility] 09-14-1995 diphtheria, tetanus toxoids and acellular pertussis vaccine, unspecified formulation Tori Warchol DOOR FITTER Work Phone: [facility] 09-14-1995 haemophilus influenz ae type b vaccine, conjugate unspecified formulation Tori Warchol DOOR FITTER Work Phone: [facility] 11-20-1994 DTP-Haemophilus influenzae type b conjugate vaccine Tori Warchol DOOR FITTER Work Phone: [facility] 11-20-1994 hepatitis B vaccine, pediatric or pediatric/adolescent dosage Tori Warchol DOOR FITTER Work Phone: [facility] 11-20-1994 measles, mumps and rubella virus vaccine Tori Warchol DOOR FITTER Work Phone: [facility] 11-20-1994 trivalent poliovirus vaccine, live, oral Tori Warchol DOOR FITTER Work Phone: [facility] 09-18-1994 DTP-Haemophilus influenzae type b conjugate vaccine Tori Warchol DOOR FITTER Work Phone: [facility] 09-18-1994 hepatitis B vaccine, pediatric or pediatric/adolescent dosage Tori Warchol DOOR FITTER Work Phone: [facility] 09-18-1994 trivalent poliovirus vaccine, live, oral Tori Warchol DOOR FITTER Work Phone: [facility] 1993 diphtheria, tetanus toxoids and pertussis vaccine Tori Martinez DOOR FITTER Work Phone: [facility] 1993 haemophilus influenz ae type b vaccine, conjugate unspecified formulation Tori Martinez DOOR FITTER Work Phone: [facility] 1993 hepatitis B vaccine, pediatric or pediatric/adolescent dosage Tori Martinez DOOR FITTER Work Phone: [facility] 1993 trivalent poliovirus vaccine, live, oral Tori Martinez DOOR FITTER Work Phone: [facility] Payers Date Payer Category Payer Self-pay [id number] 2023 Medicaid [id number] 2022 Blue Cross Blue Shield [id number] [id number] 2022 Unknown BCBS BCBS xxxxxx [id number] 2022-Present [phone] [address] [place] [address] [id number] 2017 Private Health Insurance [id number] 1993 Unknown [id number] 2..840.1.656591.3.579.2.1 76 1993 Unknown [id number] 2.16840.1.275095.3.579.2.1 76 1993 Unknown [id number] 2.16.840.1.175182.3.579.2.5 93 1993 Unknown [id number] 2.16.840.1.538174.3.579.2.5 93 1993 Unknown [id number] 2.16.840.1.570991.3.579.2.5 93 1993 Unknown [id number] 2.16.840.1.903045.3.579.2.5 93 1993 Unknown [id number] 2.16.840.1.239085.3.579.2.5 93 1993 Unknown [id number] 2.16.840.1.171527.3.579.2.5 93 1993 Unknown [id number] 2.16.840.1.061344.3.579.2.5 93 1993 Unknown [id number] 2.16.840.1.465693.3.579.2.5 93 1993 Unknown [id number] 2.16.840.1.343649.3.579.2.5 93 1993 Unknown [id number] 2.16840.1.247683.3.579.2.5 93 1993 Unknown [id number] 2.16840.1.170457.3.579.2.5 93 1993 Unknown [id number] 2.16840.1.793145.3.579.2.5 93 1993 Unknown [id number] 2.16840.1.804780.3.579.2.5 93 1993 Unknown [id number] 2.16.840.1.976922.3.579.2.5 93 1993 Unknown [id number] 2.16.840.1.841770.3.579.2.1 259 1993 Unknown [id number] 2.16.840.1.925754.3.579.2.1 259 1993 Unknown [id number] 2.16.840.1.563374.3.579.2.1 259 1993 Unknown [id number] 2.16.840.1.946586.3.579.2.1 259 1993 Unknown [id number] 2.16.840.1.794407.3.579.2.1 259 1993 Unknown [id number] 2.16.840.1.558604.3.579.2.1 259 1993 Unknown [id number] 2.16.840.1.071121.3.579.2.1 259 1993 Unknown [id number] 2.16.840.1.394424.3.579.2.1 259 1993 Unknown [id number] 2.16.840.1.010680.3.579.2.1 259 1993 Unknown [id number] 2.16.840.1.814797.3.579.2.1 259 1993 Unknown [id number] 2.16.840.1.374302.3.579.2.1 259 1993 Unknown [id number] 2.16.840.1.596180.3.579.2.1 259 1959 Self-pay [id number] 1959 Unknown [id number] 1959 Unknown [id number] 1959 Unknown [id number] Unknown [id number] 2.16.840.1.901838.3.579.2.5 93 Unknown HCAP/HFA/FAP Active [id number] Unknown [id number] 2.16.840.1.426934.3.579.2.5 31 Social History Date Type Detail Facility Start: 08-27-2016 End: 09-25-2022 Tobacco smoking status NDIS Never smoked tobacco [facility] Start: 09-25-2022 Tobacco use and exposure Smoke less tobacco non-user [facility] Start: 04-16-2023 End: 04-13-2024 Alcohol intake Current drinker of alcohol (finding) [facility] Start: 04-16-2023 End: 05-03-2024 Alcohol intake [facility] Start: 01-15-2023 End: 05-03-2024 Alcohol Use Disorder Identification Test - Consumption [AUDIT-C] [facility] How often to you hav e a drink containing alcohol? Monthly or less [facility] How many standard dr inks containing alcohol do you have on a typical day? Patient does not drink [facility] How often do you hav e 6 or more drinks on 1 occasion? Never [facility] Start: 1995 Sex Assigned At Female [facility] Start: 09-24-2022 Gender identity Identifies as female gender (finding) [facility] Start: 10-08-2023 [facility] Start: 05-03-2024 End: 05-25-2024 Alcoholic beverage intake Ex-drinker (finding) [facility] Medical Equipment Procedure Code Equipment Code Equipment Origin al Text Equipment Identifier Dates 1 strip by In Vi tro route Daily Use in the morning prior to breakfast, 1 hour after each meal for a total of 4times daily. [id number] Start: 03-21-2024 End: 04-20-2024 1 each by In Vit ro route Daily Use to check FSBS four times daily [id number] Start: 03-21-2024 End: 04-20-2024 Clinical Notes 06-02-2023 to 05-25-2024 Lillie Azul LPN - 05/25/2024 2:10 PM FERN Chin - 05/09/2024 3:50 PM Carmen Martinez NP - 05/03/2024 4:40 PM ESTPatient InstructionsLillie Azul LPN - 04/21/2024 8:30 AM EST Note Date & Type Note Facility 05-25-2024 History of Presen t illness Narrative Reason for Appointment: Patient ID: Gayla Johnson is a 28 y.o. female who presents for Routine Visit Patient presents today for Return OB appointment. MEDICATIONS Current Outpatient Medications Medication Instructions Alcohol Swabs (Alcohol Prep Pad) 70 % pads 1 Pad, Topical, Daily, Use four times daily to check FSBS. aspirin 81 mg, Daily Blood Glucose Monitoring Suppl (D-Care Glucometer) w/Device [...] mg, Oral, Every 24 hours levalbuterol (Xopenex) 45 MCG/ACT inhaler 1 puff, [...] esophagitis 09/01/2022 Moderate persistent asthma without complication ([facility]) 09/01/2022 Hypothyroidism, unspecified ([facility]) 03/02/2020 Moderate asthma ([facility]) 01/11/2024 30 weeks gestation of 04/21/2024 Third trimester 04/21/2024 Resolved Ambulatory Problems Diagnosis Date Noted Acquired hypothyroidism ([facility]) 09/01/2022 Allergic rhinitis 09/01/2022 Amenorrhea 09/01/2022 Asthma without status asthmaticus ([facility]) 09/01/2022 Attention deficit hyperactivity disorder ([facility]) 09/01/2022 Asthma affecting , antepartum ([facility]) 09/01/2022 Binge eating disorder 09/01/2022 Difficulty concentrating 09/01/2022 Irregular menstrual cycle 09/01/2022 Left sided sciatica 09/01/2022 Insomnia 09/01/2022 Migraines ([facility]) 09/01/2022 Metallic taste 09/01/2022 Mild persistent asthma without complication ([facility]) 09/01/2022 MTHFR mutation 09/01/2022 Nondependent cannabis abuse 09/01/2022 Other chronic pain 09/01/2022 Seasonal allergies 09/01/2022 Skin sensation disturbance 09/01/2022 Transitory mood disturbance 09/01/2022 Verruca plantaris 09/01/2022 Past Medical History: Diagnosis Date Acid reflux ADHD (attention deficit hyperactivity disorder) ([facility]) Asthma ([facility]) GERD (gastroesophageal reflux disease) Hypothyroid ([facility]) Lactose intolerance Marijuana use Migraine ([facility]) Mild persistent asthma, uncomplicated ([facility]) Supervision of normal Thyroid disease ([facility]) HISTORY PAST MEDICAL HISTORY SOCIAL HISTORY Past Medical History: Diagnosis Date Acid reflux ADHD (attention deficit hyperactivity disorder) ([facility]) Asthma ([facility]) Asthma affecting , antepartum ([facility]) GERD (gastroesophageal reflux disease) Hypothyroid ([facility]) Lactose intolerance Marijuana use Migraine ([facility]) Mild persistent asthma, [place]complicated [place] MTHFR mutation Seasonal allergies Supervision of normal Thyroid disease ([facility]) Social History Tobacco Use Smoking [...] 2008 Plica band removal, left knee arthroscopy [place] 10/2018 TONSILLECTOMY 1998 REVIEW OF [...] nursing note reviewed. Exam conducted with a cooler man present. Vitals: Estimated body mass index is 33.03 kg/m as calculated from the following: Height as of 05/03/24: 5' 4 . Weight as of this encounter: 192 lb 6.4 oz. BP: 124/84 Patient's last menstrual period was 09/24/2023 (exact date). ASSESSMENT & PLAN ICD-10-CM 1. 34 weeks gestation of Z3A.34 POCT urinalysis dipstick manually resulted 2. Third trimester Z34.93 POCT urinalysis dipstick manually resulted Return OB: Patient presents today for a routine obstetrics appointment. Patient is currently 34w6d . Patient states she is doing well but has complaints of being tired due to current . Patient has verbalizes frequent movement. labor precautions was discussed/given and patient was instructed to perform kick counts three times a day. REVIEWED BP AND GLUCOSE LOG. Pt to be delivered at 06/16/24. Orders Placed This Encounter Procedures POCT urinalysis dipstick manually resulted Follow Up: Patient is to return to office in 2 week for routine OB appointment. Documented by Lillie Azul LPN on behalf of: Herber Coto DO documented in this encounter [facility] 05-09-2024 History of Presen t illness Narrative [...] esophagitis 09/01/2022 Moderate persistent asthma without complication ([facility]) 09/01/2022 Hypothyroidism, [place] 03/02/2020 Moderate asthma [place] 01/11/2024 30 weeks gestation of 04/21/2024 Third trimester 04/21/2024 Resolved Ambulatory Problems Diagnosis Date Noted Acquired [place]othyroidism [place] 09/01/2022 Allergic rhinitis 09/01/2022 Amenorrhea 09/01/2022 Asthma without status asthmaticus [place] 09/01/2022 Attention deficit hyperactivity disorder [place] 09/01/2022 Asthma affecting , antepartum [place] 09/01/2022 Binge eating disorder 09/01/2022 Difficulty concentrating 09/01/2022 Irregular menstrual cycle 09/01/2022 Left sided sciatica 09/01/2022 Insomnia 09/01/2022 Migraines [place] 09/01/2022 Metallic taste 09/01/2022 Mild persistent asthma without complication [place] 09/01/2022 MTHFR mutation 09/01/2022 Nondependent cannabis abuse 09/01/2022 Other chronic pain 09/01/2022 Seasonal allergies 09/01/2022 Skin sensation disturbance 09/01/2022 Transitory mood disturbance 09/01/2022 Verruca plantaris 09/01/2022 Past Medical History: Diagnosis Date Acid reflux ADHD (attention deficit hyperactivity disorder) [place] Ast[place] GERD (gastroesophageal reflux disease) Hypothyroid [place] Lactose intolerance Marijuana use Migraine [place] [place] Mild persistent asthma, uncomplicated [place] Supervision of normal Thyroid disease [place] HISTORY PAST MEDICAL HISTORY SOCIAL HISTORY Past Medical History: Diagnosis Date Acid reflux ADHD (attention deficit hyperactivity disorder) ([facility]) Asthma ([facility]) Asthma affecting , antepartum [place] GERD (gastroesophageal reflux disease) Hypothyroid [place] Lactose intolerance Marijuana use Migraine [place] Mild persistent asthma, uncomplicated ([facility]) MTHFR mutation Seasonal allergies Supervision of normal Thyroid disease [place] [place] Social History Tobacco Use Smoking status: Never [...] 2008 Plica band removal, left knee arthroscopy [place] 10/2018 TONSILLECTOMY 1998 REVIEW OF [...] of: FERN Luis documented in this encounter [facility] 05-03-2024 History of Presen t illness [...] not improve . documented in this encounter [facility] 05-03-2024 Instructions Tori Martinez NP - 05/03/2024 4:40 PM EST PATIENT EDUCATION: ER follow-up The patient was seen today in follow-up of recent hospital ER/UC visit. All available records/labs/diagnostics were reviewed and discussed with the patient. ER/UC discharge meds were reviewed. Any changes to plan are noted above. documented in this encounter [facility] 04-21-2024 History of Presen t illness [...] to check FSBS. Blood Glucose Monitoring Suppl ([employer] Glucometer) w/Device kit 1 kit, Does not [...] esophagitis 09/01/2022 Moderate persistent asthma without complication [place] 09/01/2022 Hypothyroidism, unspecified [place] 03/02/2020 Moderate asthma [place] 01/11/2024 30 weeks gestation of 04/21/2024 Third trimester 04/21/2024 Resolved Ambulatory Problems Diagnosis Date Noted Acquired hypothyroidism [place] 09/01/2022 Allergic rhinitis 09/01/2022 Amenorrhea 09/01/2022 Asthma without status asthmaticus [place] 09/01/2022 Attention deficit hyperactivity disorder ([facility] 09/01/2022 Asthma affecting , antepartum [place] 09/01/2022 Binge eating disorder 09/01/2022 Difficulty concentrating 09/01/2022 Irregular menstrual cycle 09/01/2022 Left sided sciatica 09/01/2022 Insomnia 09/01/2022 Migraines [place] 09/01/2022 Metallic taste 09/01/2022 Mild persistent asthma without complication [place] 09/01/2022 MTHFR mutation 09/01/2022 Nondependent cannabis abuse 09/01/2022 Other chronic pain 09/01/2022 Seasonal allergies 09/01/2022 Skin sensation disturbance 09/01/2022 Transitory mood disturbance 09/01/2022 Verruca plantaris 09/01/2022 Past Medical History: Diagnosis Date Acid reflux ADHD (attention deficit hyperactivity disorder) ([facility]) Asthma [place] GERD (gastroesophageal reflux disease) Hypothyroid [place] Lactose intolerance Marijuana use Migraine [place] Mild persistent asthma, uncomplicated [place] Supervision of normal Thyroid disease [place] HISTORY PAST MEDICAL HISTORY SOCIAL HISTORY Past Medical History: Diagnosis Date Acid reflux ADHD (attention deficit hyperactivity disorder) ([facility]) Asthma (CMS/HCC) Asthma affecting , antepartum (CMS/HCC) GERD (gastroesophageal reflux disease) Hypothyroid (CMS/HCC) Lactose intolerance Marijuana use Migraine (CMS/HCC) Mild persistent asthma, uncomplicated (CMS/HCC) MTHFR mutation Seasonal allergies Supervision of normal Thyroid disease ([facility]) Social History Tobacco Use Smoking status: [...] 2008 Plica band removal, [place] arthrosc[place] 10/2018 TONSILLECTOMY 1998 REVIEW OF [...] nursing note reviewed. Exam conducted with a cooler man present. Vitals: Estimated body mass index is [...] Herber Coto DO documented in this encounter [facility] 04-13-2024 History of Presen t illness [...] esophagitis 09/01/2022 Moderate persistent asthma without complication ([facility]) 09/01/2022 Hypothyroidism, unspecified ([facility]) 03/02/2020 Moderate asthma ([facility]) 01/11/2024 Resolved Ambulatory Problems Diagnosis Date Noted Acquired hypothyroidism ([facility]) 09/01/2022 Allergic rhinitis 09/01/2022 Amenorrhea 09/01/2022 Asthma without status asthmaticus ([facility]) 09/01/2022 Attention deficit hyperactivity disorder ([facility]) 09/01/2022 Asthma affecting , antepartum ([facility]) 09/01/2022 Binge eating disorder 09/01/2022 [...] Acid reflux ADHD (attention deficit hyperactivity disorder) ([facility]) Asthma (CMS/HCC) GERD (gastroesophageal reflux disease) Hypothyroid (CMS/HCC) Lactose intolerance Marijuana use Migraine (CMS/HCC) Mild persistent asthma, uncomplicated (CMS/HCC) Supervision of normal Thyroid disease ([facility]) HISTORY PAST MEDICAL HISTORY SOCIAL HISTORY Past Medical History: Diagnosis Date Acid reflux ADHD (attention deficit hyperactivity disorder) (CMS/HCC) Asthma (CMS/HCC) Asthma affecting , antepartum (CMS/HCC) GERD (gastroesophageal reflux disease) Hypothyroid (CMS/HCC) Lactose intolerance Marijuana use Migraine ([facility]) Mild persistent asthma, uncomplicated ([facility]) MTHFR mutation Seasonal allergies Supervision of normal Thyroid disease ([facility]) Social History Tobacco Use Smoking [...] 2008 Plica band removal, [place] arthrosc[place] 10/2018 TONSILLECTOMY 1998 REVIEW OF [...] of: FERN Luis documented in this encounter [facility] 04-06-2024 History of Presen t illness [...] esophagitis 09/01/2022 Moderate persistent asthma without complication [place] 09/01/2022 Hypothyroidism, unspecified [place] 03/02/2020 Moderate asthma ([facility]) 01/11/2024 Resolved Ambulatory Problems Diagnosis Date Noted Acquired hypothyroidism ([facility]) 09/01/2022 Allergic rhinitis 09/01/2022 Amenorrhea 09/01/2022 Asthma without status asthmaticus ([facility]) 09/01/2022 Attention deficit hyperactivity disorder ([facility]) 09/01/2022 Asthma affecting , antepartum ([facility]) 09/01/2022 Binge eating disorder 09/01/2022 Difficulty concentrating 09/01/2022 Irregular menstrual cycle 09/01/2022 Left sided sciatica 09/01/2022 Insomnia 09/01/2022 Migraines ([facility]) 09/01/2022 Metallic taste 09/01/2022 Mild persistent asthma without complication ([facility]) 09/01/2022 MTHFR mutation 09/01/2022 Nondependent cannabis abuse 09/01/2022 Other chronic pain 09/01/2022 Seasonal allergies 09/01/2022 Skin sensation disturbance 09/01/2022 Transitory mood disturbance 09/01/2022 Verruca plantaris 09/01/2022 Past Medical History: Diagnosis Date Acid reflux ADHD (attention deficit hyperactivity disorder) ([facility]) Asthma ([facility]) GERD (gastroesophageal reflux disease) Hypothyroid ([facility]) Lactose intolerance Marijuana use Migraine ([facility]) Mild persistent asthma, uncomplicated ([facility]) Supervision of normal Thyroid disease ([facility]) HISTORY PAST MEDICAL HISTORY SOCIAL HISTORY Past Medical History: Diagnosis Date Acid reflux ADHD (attention deficit hyperactivity disorder) ([facility]) Asthma ([facility]) Asthma affecting , antepartum ([facility]) GERD (gastroesophageal reflux disease) Hypothyroid ([facility]) Lactose intolerance Marijuana use Migraine ([facility]) Mild persistent asthma, uncomplicated ([facility]) MTHFR mutation Seasonal allergies Supervision of normal Thyroid disease ([facility]) Social History Tobacco Use Smoking [...] 2008 Plica band removal, left [place] arthrosc[place] 10/2018 TONSILLECTOMY 1998 REVIEW OF [...] of: FERN Luis documented in this encounter [facility] 03-09-2024 History of Presen t illness [...] esophagitis 09/01/2022 Moderate persistent asthma without complication ([facility]) 09/01/2022 Hypothyroidism, unspecified [place] 03/02/2020 Moderate asthma [place] 01/11/2024 Resolved Ambulatory Problems Diagnosis Date Noted Acquired hypothyroidism ([facility]) 09/01/2022 Allergic rhinitis 09/01/2022 Amenorrhea 09/01/2022 Asthma without status asthmaticus [place] 09/01/2022 Attention deficit hyperactivity disorder ([facility]) 09/01/2022 Asthma affecting , antepartum ([facility]) 09/01/2022 Binge eating disorder 09/01/2022 Difficulty concentrating 09/01/2022 Irregular menstrual cycle 09/01/2022 Left sided sciatica 09/01/2022 Insomnia 09/01/2022 Migraines ([facility]) 09/01/2022 Metallic taste 09/01/2022 Mild persistent asthma without complication ([facility] 09/01/2022 MTHFR mutation 09/01/2022 Nondependent cannabis abuse 09/01/2022 Other chronic pain 09/01/2022 Seasonal allergies 09/01/2022 Skin sensation disturbance 09/01/2022 Transitory mood disturbance 09/01/2022 Verruca plantaris 09/01/2022 Past Medical History: Diagnosis Date Acid reflux ADHD (attention deficit hyperactivity disorder) ([facility]) Asthma ([facility]) GERD (gastroesophageal reflux disease) Hypothyroid [place] Lactose intolerance Marijuana use Migraine ([facility]) Mild persistent asthma, uncomplicated ([facility]) Supervision of normal Thyroid disease [place] HISTORY PAST MEDICAL HISTORY SOCIAL HISTORY Past Medical History: Diagnosis Date Acid reflux ADHD (attention deficit hyperactivity disorder) ([facility]) Asthma ([facility]) Asthma affecting , antepartum [place] GERD (gastroesophageal reflux disease) Hypothyroid ([facility]) Lactose intolerance Marijuana use Migraine ([facility]) Mild persistent asthma, uncomplicated ([facility]) MTHFR mutation Seasonal allergies Supervision of normal Thyroid disease ([facility]) Social History Tobacco Use Smoking [...] 2008 Plica band removal, left [place] arthrosc[place] 10/2018 TONSILLECTOMY 1998 REVIEW OF [...] of: FERN Luis documented in this encounter [facility] 03-09-2024 Miscellaneous Notes Addended by: NIALL CONSTANTINO on: 03/10/2024 09:01 AM Modules accepted: Orders documented in this encounter [facility] 03-09-2024 Note Addended by: NIALL CLEVELAND on: 03/10/2024 09:01 AM Modules accepted: Orders [facility] 03-09-2024 Note Addended by: NIALL CLEVELAND on: 03/10/2024 09:01 AM Modules accepted: Orders [facility] 02-10-2024 History of Presen t illness [...] esophagitis 09/01/2022 Moderate persistent asthma without complication ([facility]) 09/01/2022 Hypothyroidism, unspecified ([facility]) 03/02/2020 Moderate asthma ([facility]) 01/11/2024 Resolved Ambulatory Problems Diagnosis Date Noted Acquired hypothyroidism ([facility]) 09/01/2022 Allergic rhinitis 09/01/2022 Amenorrhea 09/01/2022 Asthma without status asthmaticus ([facility]) 09/01/2022 Attention deficit hyperactivity disorder ([facility]) 09/01/2022 Asthma affecting , antepartum ([facility]) 09/01/2022 Binge eating disorder 09/01/2022 [...] Acid reflux ADHD (attention deficit hyperactivity disorder) ([facility]) Asthma ([facility]) GERD (gastroesophageal reflux disease) Hypothyroid (CMS/HCC) Lactose intolerance Marijuana use Migraine (CMS/HCC) Mild persistent asthma, uncomplicated (CMS/HCC) Supervision of normal Thyroid disease ([facility]) HISTORY PAST MEDICAL HISTORY SOCIAL HISTORY Past Medical History: Diagnosis Date Acid reflux ADHD (attention deficit hyperactivity disorder) ([facility]/HCC) Asthma (CMS/HCC) Asthma affecting , antepartum ([facility]/H[facility]) GERD (gastroesophageal reflux disease) Hypothyroid ([facility]) Lactose intolerance Marijuana use Migraine ([facility]) Mild persistent asthma, uncomplicated ([facility]) MTHFR mutation Seasonal allergies Supervision of normal Thyroid disease ([facility]) Social History Tobacco Use Smoking [...] 2008 Plica band removal, left knee arthroscopy [place] BREAST REDUCTION 10/2018 TONSILLECTOMY 1998 REVIEW OF [...] Herber Coto DO documented in this encounter [facility] 01-11-2024 History of Presen t illness [...] esophagitis 09/01/2022 Moderate persistent asthma without complication ([facility]) 09/01/2022 [place], [place] 03/02/2020 Resolved Ambulatory Problems Diagnosis Date Noted Acquired [place] 09/01/2022 Allergic rhinitis 09/01/2022 Amenorrhea 09/01/2022 Asthma without status asthmaticus [place] 09/01/2022 Attention deficit hyperactivity disorder ([facility]) 09/01/2022 Asthma affecting , antepartum [place] 09/01/2022 Binge eating disorder ([facility] 09/01/2022 Difficulty concentrating 09/01/2022 Irregular menstrual cycle 09/01/2022 Left sided sciatica 09/01/2022 Insomnia 09/01/2022 Migraines ([facility] 09/01/2022 Metallic taste 09/01/2022 Mild persistent asthma without complication [place] 09/01/2022 MTHFR mutation 09/01/2022 Nondependent cannabis abuse 09/01/2022 Other chronic pain 09/01/2022 Seasonal allergies 09/01/2022 Skin sensation disturbance 09/01/2022 Transitory mood disturbance 09/01/2022 Verruca plantaris 09/01/2022 Past Medical History: Diagnosis Date Acid reflux ADHD (attention deficit hyperactivity disorder) ([facility]) Asthma ([facility]) GERD (gastroesophageal reflux disease) Hypothyroid [place] Lactose intolerance Marijuana use Migraine ([facility]) Mild persistent asthma, uncomplicated ([facility]) Supervision of normal Thyroid disease [place] HISTORY PAST MEDICAL HISTORY SOCIAL HISTORY Past Medical History: Diagnosis Date Acid reflux ADHD (attention deficit hyperactivity disorder) ([facility]) Asthma ([facility]) Asthma affecting , antepartum [place] GERD (gastroesophageal reflux disease) Hypothyroid ([facility]) Lactose intolerance Marijuana use Migraine ([facility]) Mild persistent asthma, uncomplicated ([facility]) MTHFR mutation Seasonal allergies Supervision of normal Thyroid disease ([facility]) Social History Tobacco Use Smoking [...] 2008 Plica band removal, left knee arthroscopy [place] BREAST [place]UCTION 10/2018 TONSILLECTOMY 1998 REVIEW OF [...] nursing note reviewed. Exam conducted with a cooler man present. Vitals: Estimated body mass index is [...] or undercooked meat, and [facility]. Patient has been consulted regarding any [...] done she will reach out to office. Care Program Resident will be notified at time of delivery [...] . Informed patient since she sees a Pharmacy Technician [place] to schedule appointment to make sure asthma is controlled during . Patient is currently taking [employer] Chewable kids vitamins. Patient is taking 2 [...] Herber Coto DO documented in this encounter [facility] 06-04-2023 Telephone encount er Note Sent [facility] 06-04-2023 Miscellaneous Notes Formattin g of this note might be different from the original. Sent Patient requesting refill/[place] documented in this encounter [facility] 06-02-2023 Telephone encount er Note Patient requesting refill/[place] [facility] Evaluation note Diagnosis Attention deficit hyperactivity disorder (ADHD), combined type (CMS/HCC) [facility] information [facility] Work Phone: Evaluation note* Diagnosis [...] [facility]* Diagnosis 34 weeks gestation of Third trimester state, incidental [...] section and content) DATE CREATED AUTHOR 11/18/2018 [facility] DATE CREATED AUTHOR AUTHOR'S ORGANIZ ATION 11/26/2018 [facility] DATE CREATED AUTHOR AUTHOR'S ORGANIZ ATION 09/09/2022 [facility] DATE CREATED AUTHOR AUTHOR'S ORGANIZ ATION 03/16/2024 [facility] DATE CREATED AUTHOR AUTHOR'S ORGANIZ ATION 05/13/2024 [facility] Special[facility] EPIC Reason for Visit (unrecogniz ed section and content) Reason Onset Date Comments Med Refill 06/02/2023 Reason Comments Routine Visit Care Teams (unrecognized sec tion and content) Optical Technician Relationship Specialty Start Date End Date Carlos Alberto Coleman MD [address] [place] [address] PCP - General Family Medicine 09/24/22 Tori Martinez NP [address] [place] [address] Nurse Practitioner Family Medicine 09/24/22 Sofie Gr NP [address] [place] [address] Nurse Practitioner Pulmonary Disease 04/14/23 Team Status: Active Member Role Status Dates Carlos Alberto Coleman MD Primary Care Provider Active Team Status: Inactive Member Role Status Dates Carlos Alberto Coleman MD Primary Care Provider Active S tart: July 13, 2023 End: July 13, 2023 Sofie Gr NP-C Attending Provider Active Start: July 13, 2023 End: July 13, 2023 Optical Technician Relationship Specialty Start Date End Date Carlos Alberto Coleman MD [address] [place] [address] PCP - General Family Medicine 09/24/22 Tori Martinez NP [address] [place] [address] PCP - [employer] 05/28/23 Tori Martinez NP [address] [place] [address] Nurse Practitioner Family Medicine 09/24/22 Sofie Gr NP [address] [place] [phone] Nurse Practitioner Pulmonary Disease 04/14/23 Optical Technician Relationship Specialty Start Date End Date Carlos Alberto Coleman MD [address] [place] [address] PCP - General Family Medicine 09/24/22 Tori Martinez NP [address] [place] [address] PCP - [employer] 05/28/23 Tori Martinez NP [address] [place] [address] Nurse Practitioner Family Medicine 09/24/22 Sofie Gr NP [address] [place] [phone] Nurse Practitioner Pulmonary Disease 04/14/23 Optical Technician Relationship Specialty Start Date End Date Carlos Alberto Coleman MD [address] [place] [address] PCP - General Family Medicine 09/24/22 Tori Martinez NP [address] [place] [address] PCP - [employer] 05/28/23 Tori Martinez NP [address] [place] [address] Nurse Practitioner Family Medicine 09/24/22 Sofie Gr NP [address] [place] [phone] Nurse Practitioner Pulmonary Disease 04/14/23 Optical Technician Relationship Specialty Start Date End Date Carlos Alberto Coleman MD [address] [place] [facility] PCP - General Family Medicine 09/24/22 Tori Martinez NP [address] [place], [facility] PCP - [employer] 05/28/23 Tori Martinez DOOR FITTER [address] [place] [id number] Nurse Practitioner Family Medicine 09/24/22 Sofie Gr NP [address] [place] [phone] Nurse Practitioner Pulmonary Disease 04/14/23 Optical Technician Relationship Specialty Start Date End Date Carlos Alberto Coleman MD [address] [place] [address] PCP - General Family Medicine 09/24/22 Tori Martinez DOOR FITTER [address] [place] [address] PCP - [employer] 05/28/23 Tori Martinez NP [address] [place] [address] Nurse Practitioner Family Medicine 09/24/22 Sofie Gr DOOR FITTER [address] [place] [address] Nurse Practitioner Pulmonary Disease 04/14/23 Optical Technician Relationship Specialty Start Date End Date Carlos Alberto Coleman MD [address] [place] [address] PCP - General Family Medicine 09/24/22 Tori Martinez DOOR FITTER [address] [place] [address] PCP - [employer] 05/28/23 Tori Martinez NP [address] [place] [address] Nurse Practitioner Family Medicine 09/24/22 Sofie Gr DOOR FITTER [address] [place] [phone] Nurse Practitioner Pulmonary Disease 04/14/23 Optical Technician Relationship Specialty Start Date End Date Carlos Alberto Coleman MD [address] [place] [address] PCP - General Family Medicine 09/24/22 Tori Martinez NP [address] [place] [address] PCP - [employer] 05/28/23 Tori Martinez NP [address] [place] [address] Nurse Practitioner Family Medicine 09/24/22 Sofie Gr NP [address] [place] [phone] Nurse Practitioner Pulmonary Disease 04/14/23 Optical Technician Relationship Specialty Start Date End Date Carlos Alberto Coleman MD [address] [place] [address] PCP - General Family Medicine 09/24/22 Tori Martinez NP [address] [place] [address] PCP - [employer] 05/28/23 Tori Martinez NP [address] [place] [address] Nurse Practitioner Family Medicine 09/24/22 Sofie Gr NP [address] [place] [address] Nurse Practitioner Pulmonary Disease 04/14/23 Optical Technician Relationship Specialty Start Date End Date Carlos Alberto Coleman MD [address] [place] [address] PCP - General Family Medicine 09/24/22 Tori Martinez NP [address], [facility] PCP - [employer] 05/28/23 Tori Martinez NP [address] [place] [address] Nurse Practitioner Family Medicine 09/24/22 Sofie Gr NP [address] [place] [phone] Nurse Practitioner Pulmonary Disease 04/14/23 Optical Technician Relationship Specialty Start Date End Date Carlos Alberto Coleman MD [address] [place] [address] PCP - General Family Medicine 09/24/22 Tori Martinez NP [address], [facility] PCP - [employer] 05/28/23 Tori Martinez NP [address] [place] [address] Nurse Practitioner Family Medicine 09/24/22 Sofie Gr NP [address] [place] [address] Nurse Practitioner Pulmonary Disease 04/14/23 Optical Technician Relationship Specialty Start Date End Date Carlos Alberto Coleman MD [address] [place] [address] PCP - General Family Medicine 09/24/22 Tori Martinez, DOOR FITTER [address] [place] [address] PCP - [employer] 05/28/23 Tori Martinez NP [address] [place] [address] Nurse Practitioner Family Medicine 09/24/22 Sofie Gr, DOOR FITTER [address] [place] [address] Nurse Practitioner Pulmonary Disease 04/14/23 Optical Technician Relationship Specialty Start Date End Date Carlos Alberto Coleman MD [address] [place] [address] PCP - General Family Medicine 09/24/22 Tori Martinez NP [address] [place] [address] PCP - [employer] 05/28/23 Tori Martinez DOOR FITTER [address] [place] [address] Nurse Practitioner Family Medicine 09/24/22 Sofie Gr, DOOR FITTER [address] [place] [phone] Nurse Practitioner Pulmonary Disease 04/14/23 Optical Technician Relationship Specialty Start Date End Date Carlos Alberto Cloeman MD [address] [place] [address] PCP - General Family Medicine 09/24/22 Tori Martinez DOOR FITTER [address] [place] [address] PCP - [employer] 05/28/23 oTri Martinez NP [address] [place] [address] Nurse Practitioner Family Medicine 09/24/22 Sofie Gr NP [address] [place] [address] Nurse Practitioner Pulmonary Disease 04/14/23 Optical Technician Relationship Specialty Start Date End Date Carlos Alberto Coleman MD [address] [place] [address] PCP - General Family Medicine 09/24/22 Tori Martinez NP [address] [place] [address] PCP [facility] 05/28/23 Tori Martinez NP [address] [place] [address] Nurse Practitioner Family Medicine 09/24/22 Sofie Gr NP [address] [place] [address] Nurse Practitioner Pulmonary Disease 04/14/23 Goals (unrecognized [...] BE BASED ON THE PRIMARY CLINICAL RECORDS. [employer] [facility]. provides no warranty or guarantee of the accuracy or completeness of information in this document.
[2024-05-26 08:53] VITALS: BP 118/64; PULSE 113
== END 2024-05-26 09:34 | disposition home or self-care (01) ==
LOC: FBCO 05:27 → FBC 08:41
PROVIDERS: PCP Family Medicine; Visit Provider Obstetrics & Gynecology
DX: O24.419 Gestational diabetes mellitus in pregnancy, unspecified control (principal); Z3A.35 35 weeks gestation of pregnancy
CPT/HCPCS: 59025

== ENCOUNTER 2024-05-30 02:05 | Outpatient (OUT) | payer BC, MEDICAID, SELFPAY ==
--- OUTSIDE RECORDS SUMMARY | 2024-05-30 02:09 | XMS_ITS | CCD ---
Author Organization [facility] Care Team Providers Care Farm Manager Name Role Phone RENEE, MODE R [...] ÁNGEL Attending Unavailable KIEPERT, ÁNGEL Admitting Unavailable RINEYVILLE, DR DEANNA Lance Consulting Unavailable PAY ., [...] Alberto Coleman MD Primary Care Provider Kylee [employer] PARALEGAL, Tori Unavailable Maile [employer] PARALEGAL, Sofie R Unavailable MD Carlos Alberto Coleman Primary Care Provider HEATHER Gr Attending Provider [phone] Maile [employer] PARALEGAL, Sofie R Unavailable Kylee [employer] PARALEGAL, Tori Unavailable Sofie Gr Attending Unavailable Maile, Sofie Charles Admitting Unavailable Carlos Alberto Coleman Primary Care Unavailable NNAMDI, HERBER Attending Unavailable SOFIE GR Attending Unavailable WARCHOL, TORI [...] Cefuroxime Drug Allergy 04-04-[address] [facility] Repository (2 sources) Ciprofloxacin Drug Allergy 04-03-[address] [facility] Repository (2 sources) Doxycycline Drug Allergy 05-20-19 [address] [facility] Repository (1 source) Flupenthixol Drug Allergy 04-04-[address] [facility] Repository (20 sources) Cefuroxime Drug Allergy 05-20-19 21 Rash [facility] (20 sources) Ciprofloxacin Drug Allergy 09-02-19 23 Shortness of breath [facility] (20 sources) Ciprofloxacin Drug Allergy 09-02-19 23 Shortness of breath [facility] (20 sources) cloNIDine Drug Allergy 03-14-20 21 [facility] (20 sources) cloNIDine Drug Allergy 09-02-19 23 [facility] (20 sources) Doxycycline Drug Allergy 05-20-19 21 GI intolerance [facility] (20 sources) Gluten Propensity to adverse reactions 11-11-19 19 [facility] (20 sources) Lactose (non-medical use) Allergy to substance 09-02-19 23 [facility] (20 sources) Lactose (non-medical use) Drug Intolerance 11-11-19 19 [facility] (20 sources) Octacosanol Drug Intolerance 11-11-19 19 [facility] (20 sources) Other Allergy to substance 11-11-19 19 [facility] (20 sources) Silver Allergy to substance 09-02-19 23 [facility] (20 sources) Wound Dressing Adhesive Drug Allergy 09-02-19 23 [facility] (1 source) Cefuroxime Drug Allergy 05-20-19 21 [facility] Repository (1 source) Ciprofloxacin Drug Allergy 05-20-19 [facility] Repository (1 source) Doxycycline Drug Allergy 05-20-19 [facility] Repository Medications Current Medications Medication [...] Drug Class(es) Dates Sig (Normalized) Sig (Original) [id number] 200 actuat albuterol 0.09 mg/actuat metered dose [...] [30 weeks gestation of ] Onset: 04-21-2024 4 Episodic Residual codes; unclassified (2 sources) Gestation [...] UA Negative Negative - 4(70) +++ mg/dL [facility] Blood, UA Negative Negative - 50 Mednel/mcL [facility] Clarity, UA Clear [facility] Color, UA Yellow [facility] Glucose, UA Negative Negative - 2000(110) ++++ mg/dL [facility] Interpretation and review of laboratory results Abnormal [facility] Ketones, UA Positive Negative - 160(16) ++++ mg/dL [facility] Comment on above: trace Leukocytes, UA Positive Negative - 500+++ Leighann/mcL [facility] Comment on above: small Nitrite, UA Negative Negative - Positive [facility] pH, UA 6 5 - 9 [facility] Protein, UA Trace Negative - 2000(20) ++++ mg/dL [facility] Spec Grav, UA 1.03 1 - 1.03 [facility] Urobilinogen, UA 1.0 0.2 - 12 mg/dL [facility] US OB BPP W NON-STRESS on 05-24-[address] [address] Ultrasound Report Signed Patient: CECELIA JOHNSON MR#: [id number] : 1995 Acct:[id number] Age/Sex: 28 / F ADM Date: 05/23/24 Loc: US Attending Dr: Herber Coto D.O. Ordering Physician: Herber Coto D.O. Date of Service: 05/23/24 Procedure(s): US OB BPP w non-stress Accession Number(s): [id number] cc: CARLOS ALBERTO COLEMAN ; Herber Coto D.O. The [place] [id number] Patient Name: CECELIA JOHNSON MRN: [facility]:[id number] date: 1995 Sex: F Assigned Patient Location: [facility] Current Patient Location: Accession/Order Number: [id number] Exam Date: 05/23/2024 19:13 Report Date: 05/24/2024 [...] M.D. Signed By: 05/24/24426 DD/ 2 TD/TT: Softball Coach: [facility] Radiology, Radiologist, MD - 05/24/2024 [place] [address] Ultrasound Report Signed Patient: CECELIA JOHNSON MR#: [id number] : 1995 Acct:[id number] Age/Sex: 28 / F ADM Date: 05/23/24 Loc: US Attending Dr: Herber Coto D.O. Ordering Physician: Herber Coto D.O. Date of Service: 05/23/24 Procedure(s): US OB BPP w non-stress Accession Number(s): [id number] cc: CARLOS ALBERTO COLEMAN ; Herber Coto D.O. [place] [address] Patient Name: CECELIA JOHNSON MRN: [id number] date: 1995 Sex: F Assigned Patient Location: [facility] Current Patient Location: Accession/Order Number: [id number] Exam Date: 05/23/2024 19:13 Report Date: 05/24/2024 [...] M.D. Signed By: 05/24/24426 DD/ 2 TD/TT: Softball Coach: [facility] Radiology Study observation (narrative) [facility] US OB BPP W NON-STRESS Ordered By: Radiologist Radiology on 05-24-2024 [facility] Work Phone: Urinalysis macro (dipstick) panel (U)on 01-13-2025 Bilirubin, UA Negative Negative - 4(70) +++ mg/dL [facility] Blood, UA Negative Negative - 50 Mendel/mcL [facility] Clarity, UA Clear [facility] Color, UA Yellow [facility] Glucose, UA Negative Negative - 1999(110) ++++ mg/dL [facility] Interpretation and review of laboratory results Abnormal [facility] Ketones, UA Negative Negative - 160(16) ++++ mg/dL [facility] Leukocytes, UA Positive Negative - 500+++ Leighann/mcL [facility] Comment on above: small Nitrite, UA Negative Negative - Positive [facility] pH, UA 6 5 - 9 [facility] Protein, UA Negative Negative - 1999(20) ++++ mg/dL [facility] Spec Grav, UA 1.03 1 - 1.03 [facility] Urobilinogen, UA 1.0 0.2 - 12 mg/dL [facility] Urinalysis macro (dipstick) panel (U)on 04-21-2024 Bilirubin, UA Negative Negative - 4(70) +++ mg/dL [facility] Blood, UA Negative Negative - 50 Mendel/mcL [facility] Clarity, UA Clear [facility] Color, UA Light Yellow [facility] Glucose, UA Negative Negative - 1999(110) ++++ mg/dL [facility] Interpretation and review of laboratory results Normal [facility] Ketones, UA Negative Negative - 160(16) ++++ mg/dL [facility] Leukocytes, UA Few Negative - 500+++ Leighann/mcL [facility] Nitrite, UA Negative Negative - Positive [facility] pH, UA 5.5 5 - 9 [facility] Protein, UA Trace Negative - 1999(20) ++++ mg/dL [facility] Spec Grav, UA 1.03 1 - 1.03 [facility] Urobilinogen, UA 0.2 0.2 - 12 mg/dL [facility] Urinalysis macro (dipstick) panel (U)on 04-13-2024 Bilirubin, UA Negative Negative - 4(70) +++ mg/dL [facility] Blood, UA Negative Negative - 50 Mendel/mcL [facility] Clarity, UA Clear [facility] Color, UA Yellow [facility] Glucose, UA Negative Negative - 1999(110) ++++ mg/dL [facility] Interpretation and review of laboratory results Normal [facility] Ketones, UA Negative Negative - 160(16) ++++ mg/dL [facility] Leukocytes, UA Negative Negative - 500+++ Leighann/mcL [facility] Nitrite, UA Negative Negative - Positive [facility] pH, UA 5.5 5 - 9 [facility] Protein, UA Negative Negative - 1999(20) ++++ mg/dL [facility] Spec Grav, UA 1.03 1 - 1.03 [facility] Urobilinogen, UA 0.2 0.2 - 12 mg/dL [facility] Urinalysis macro (dipstick) panel (U)on 04-06-2024 Bilirubin, UA Negative Negative - 4(70) +++ mg/dL [facility] Blood, UA Negative Negative - 50 Mendel/mcL [facility] Clarity, UA Clear [facility] Color, UA Yellow [facility] Glucose, UA Negative Negative - 1999(110) ++++ mg/dL [facility] Interpretation and review of laboratory results Normal [facility] Ketones, UA Negative Negative - 160(16) ++++ mg/dL [facility] Leukocytes, UA Negative Negative - 500+++ Leighann/mcL [facility] Nitrite, UA Negative Negative - Positive [facility] pH, UA 6 5 - 9 [facility] Protein, UA Negative Negative - 1999(20) ++++ mg/dL [facility] Spec Grav, UA 1.015 1 - 1.03 [facility] Urobilinogen, UA 0.2 0.2 - 12 mg/dL [facility] ALL CBC WITH AUTO DIFFon BASOPHILS ABSOLUTE AUTO 0 [facility] Basophils/100 WBC (Bld) 0.2 % 0.2 - 2.0 % [facility] Eosinophils/100 WBC (Bld) 0.7 % Low 0.9 - 7.0 % [facility] Erythrocyte distribution width (RBC) [Ratio] 12.3 % 11.0 - 15.0 % [facility] Hematocrit (Bld) [Volume fraction] 35.3 % Low 36.0 - 48.0 % [facility] Hemoglobin (Bld) [Mass/Vol] 11.8 g/dL Low 12.0 - 16.0 g/dL [facility] IMMATURE GRANULOCYTES ABS AUTO 0.04 High [facility] Immature granulocytes/100 WBC (Bld) 0.5 % 0.0 - 0.5 % [facility] Interpretation and review of laboratory results Abnormal [facility] LYMPHOCYTES ABSOLUTE AUTO 1.5 [facility] Lymphocytes/100 WBC (Bld) 17.1 % Low 20.5 - 60.0 % [facility] MCH (RBC) [Entitic mass] 31.1 pg 26.7 - 34.0 pg [facility] MCHC (RBC) [Mass/Vol] 33.4 g/dL 29.9 - 35.2 g/dL [facility] MCV (RBC) [Entitic vol] 93.1 fL 81.0 - 99.0 fL [facility] MONOCYTES ABSOLUTE AUTO 0.6 [facility] Monocytes/100 WBC (Bld) 7.2 % 1.7 - 12.0 % [facility] NEUTROPHILS ABSOLUTE AUTO 6.5 [facility] Neutrophils/100 WBC (Bld) 74.3 % 43.0 - 75.0 % [facility] Platelet mean volume (Bld) [Entitic vol] 10.6 fL 9.5 - 13.5 fL [facility] TBH EO # 0.1 [facility] TB PLT [address] [facility] RBC 3.79 Low [facility] WBC 8.8 [facility] IGP,APTIMA HPV,AGE GDLNon AGE GDLN ACOG TESTING Note . [facility] Comment on above: TESTS RESULT FLAG UN ITS REF RANGE LAB Clinician Provided Cytology Information Source.............Cervix No. of containers..01 ThinPrep Vial Age Algo ACOG Sonja... 30-65 01 FLAG LEGEND: L-Low Normal,H-High Normal,LL-Alert Low,HH-Alert High <-Panic Low,>-Panic High,A-Abnormal,AA-Critical Abnormal Performed at: 01 =[address] [address] Radha Browne MD, HPV APTIMA Negative Negative [facility] Comment on above: This nucleic acid am plification test detects fourteen high- risk HPV types (16,18,31,33,35,39,45,51,52,56,58,59,66,68) without differentiation. Performed at: =[address] [id number] Safety Equipment Tester: Radha Browne MD, Phone: [phone] Performed at: [address] [id number] Safety Equipment Tester: Radha Browne MD, Phone: [phone] IGP, APTIMA HPV, RFX 16/18,45 Note . [facility] Comment on above: TESTS RESULT FLAG U NITS REF RANGE LAB DIAGNOSIS: 02 NEGATIVE FOR INTRAEPITHELIAL LESION OR MALIGNANCY. Specimen adequacy: 02 Satisfactory for evaluation. No endocervical component is identified. Performed by: 02 Danie Vargas, Bin Operator (ASCP) . 02 Note: Note 02 [...] <-Panic Low,>-Panic High,A-Abnormal,AA-Critical Abnormal Performed at: [address] [address] Radha Browne MD, SPATULA-ALONE CERVIX [facility] Cytology Cervical or vaginal smear or scraping studyon 02-10-2024 [facility] Urinalysis macro (dipstick) panel (U)on 02-10-2024 Bilirubin, UA Negative Negative - 4(70) +++ mg/dL [facility] Blood, UA Negative Negative - 50 Mendel/mcL [facility] Clarity, UA Clear [facility] Color, UA Yellow [facility] Glucose, UA Negative Negative - 1999(110) ++++ mg/dL [facility] Interpretation and review of laboratory results Abnormal [facility] Ketones, UA Negative Negative - 160(16) ++++ mg/dL [facility] Leukocytes, UA Trace Negative - 500+++ Leighann/mcL [facility] Nitrite, UA Negative Negative - Positive [facility] pH, UA 7 5 - 9 [facility] Protein, UA Negative Negative - 1999(20) ++++ mg/dL [facility] Spec Grav, UA 1.02 1 - 1.03 [facility] Urobilinogen, UA 0.2 0.2 - 12 mg/dL [facility] ALL THYROID STIM HORMONEon 0 01-22-2024 TSH Qn 1.921 m[IU]/L [facility] Urinalysis macro (dipstick) panel (U)on 01-11-2024 Bilirubin, UA Negative Negative - 4(70) +++ mg/dL [facility] Blood, UA Negative Negative - 50 Mendel/mcL [facility] Clarity, UA Clear [facility] Color, UA Yellow [facility] Glucose, UA Negative Negative - 1999(110) ++++ mg/dL [facility] Interpretation and review of laboratory results Normal [facility] Ketones, UA Negative Negative - 160(16) ++++ mg/dL [facility] Leukocytes, UA Negative Negative - 500+++ Leighann/mcL [facility] Nitrite, UA Negative Negative - Positive [facility] pH, UA 6.0 5 - 9 [facility] Protein, UA Negative Negative - 1999(20) ++++ mg/dL [facility] Spec Grav, UA 1.015 1 - 1.03 [facility] Urobilinogen, UA 0.2 0.2 - 12 mg/dL [facility] BioFire Not Detectedon 07-12 BioFire Not Detected Not detected Normal Not Detecte T he [facility] Comment on above: Result Comment: This is a duplicate RP2.1 COVID (PCR) result to be used for statistical tracking purpose only. PERFORMED BY: [place] [address] PATHOLOGIST SR VICE PRESIDENT CATY NEELY M.D. Performed By: #### R RODGER PANEL UPP., BIOFIRECOVNOTDE #### [address] COVID-19 Detected/Not Detect edOrdered By: Sofie Gr on 07-13-2023 SARS-CoV-2 (COVID-19) RNA JUAN+non-probe Ql (Nph) Not detected Not Detecte [facility] Comment on above: This is [...] Influenza A H3 Blank Space PERFORMED BY: [place] [address] PATHOLOGIST SR VICE PRESIDENT CATY NEELY M.D. Normal The [facility] Comment on above: Performed By: #### R RODGER PANEL UPP., BIOFIRECOVNOTDE #### [address] Respiratory pathogens DNA an d RNA panel - Nasopharynx by JUAN with non-probe detectionOrdered By: Sofie Gr on 07-13-2023 Respiratory pathogens DNA and RNA panel JUAN+non-probe (Nph) [facility] CBC AUTO DIFFon 06-25-2022 BASO # 0.0 103/ul Normal 0.0-0.[address] [facility] Comment on above: Performed By: #### C BC #### [facility] [address] [place] [address] Dr. Garland Kohli Basophils/100 WBC (Bld) 0.4 % Normal 0.2-2.0 [facility] Comment on above: Performed By: #### C BC #### [facility] [address] [place] [address] Dr. Garland Kohli EO # 0.1 103/ul Normal 0.0-0.7 [facility] Comment on above: Performed By: #### C BC #### [facility] [address] [place] [address] Dr. Garland Kohli Eosinophils/100 WBC (Bld) 0.9 % Normal 0.9-7.0 [facility] Comment on above: Performed By: #### C BC #### [facility] [address] [place] [address] Dr. Garland Kohli Erythrocyte distribution width (RBC) [Ratio] 12.4 % Normal 11.0-15.0 [facility] Comment on above: Performed By: #### C BC #### [facility] [address] [place] [address] Dr. Garland Kohli Hematocrit (Bld) [Volume fraction] 31.4 % Critically low 36.0-48.0 [facility] Comment on above: Performed By: #### C BC #### [facility] [address] [place] [address] Dr. Garland Kohli Hemoglobin (Bld) [Mass/Vol] 10.4 g/dL Critically low 12.0-16.0 [facility] Comment on above: Performed By: #### C BC #### [facility] [address] [place] [address] Dr. Garland Kohli IG # 0.04 10e3/ul Critically high 0.00-0.[address] [facility] Comment on above: Performed By: #### C BC #### [facility] [address] [place] [address] Dr. Garland Kohli IG % 0.4 % Normal 0.0-0.[address] [facility] Comment on above: Performed By: #### C BC #### [facility] [address] [place] [address] Dr. Garland Kohli LYMPH # 2.0 103/ul Normal 1.2-3.8 [facility] Comment on above: Performed By: #### C BC #### [facility] [address] [place] [address] Dr. Garland Kohli Lymphocytes/100 WBC (Bld) 22.1 % Normal 20.5-60.0 [facility] Comment on above: Performed By: #### C BC #### [facility] [address] [place] [address] Dr. Garland Kohli MANUAL DIFF REQ NO Normal [facility] Comment on above: Performed By: #### C BC #### [facility] [address] [place] [address] Dr. Garland Kohli MCH (RBC) [Entitic mass] 30.1 pg Normal 26.7-34.0 [facility] Comment on above: Performed By: #### C BC #### [facility] [address] [place] [address] Dr. Garland Kohli MCHC (RBC) [Mass/Vol] 33.1 g/dL Normal 29.9-35.2 [facility] Comment on above: Performed By: #### C BC #### [facility] [address] [place] [address] Dr. Garland Kohli MCV (RBC) [Entitic vol] 91.0 fL Normal 81.0-99.0 [facility] Comment on above: Performed By: #### C BC #### [facility] [address] [place] [address] Dr. Garland Kohli MONO # 0.8 103/ul Normal 0.3-0.8 [facility] Comment on above: Performed By: #### C BC #### [facility] [address] [place] [address] Dr. Garland Kohli Monocytes/100 WBC (Bld) 8.8 % Normal 1.7-12.0 [facility] Comment on above: Performed By: #### C BC #### [facility] [address] [place] [address] Dr. Garland Kohli NEUT # 6.0 103/ul Normal 1.4-6.[address] [facility] Comment on above: Performed By: #### C BC #### [facility] [address] [place] [address] Dr. Garland Kohli Neutrophils/100 WBC (Bld) 67.4 % Normal 43.0-75.0 [facility] Comment on above: Performed By: #### C BC #### [facility] [address] [place] [address] Dr. Garland Kohli Platelet mean volume (Bld) [Entitic vol] 12.0 fL Normal 9.5-13.5 [facility] Comment on above: Performed By: #### C BC #### [facility] [address] [place] [address] Dr. Garland Kohli PLT 151 103/ul Normal 150-[address] [facility] Comment on above: Performed By: #### C BC #### [facility] [address] [place] [address] Dr. Garland Kohli RBC 3.45 106/ul Critically low 4.20-5.40 [facility] Comment on above: Performed By: #### C BC #### [facility] [address] [place] [address] Dr. Garland Kohli WBC 8.9 103/ul Normal 4.0-11.0 [facility] Comment on above: Performed By: #### C BC #### [facility] [address] [place] [address] Dr. Garland Kohli CBC AUTO DIFFon 06-23-2022 BASO # 0.0 103/ul Normal 0.0-0.1 [facility] Comment on above: Performed By: #### C BC #### [facility] [address] [place] [address] Dr. Garland Kohli Basophils/100 WBC (Bld) 0.4 % Normal 0.2-2.[address] [facility] Comment on above: Performed By: #### C BC #### [facility] [address] [place] [address] Dr. Garland Kohli EO # 0.1 103/ul Normal 0.0-0.[address] [facility] Comment on above: Performed By: #### C BC #### [facility] [address] [place] [address] Dr. Garland Kohli Eosinophils/100 WBC (Bld) 0.8 % Critically low 0.9-7.0 [facility] Comment on above: Performed By: #### C BC #### [facility] [address] [place] [address] Dr. Garland Kohli Erythrocyte distribution width (RBC) [Ratio] 12.4 % Normal 11.0-15.0 [facility] Comment on above: Performed By: #### C BC #### [facility] [address] [place] [address] Dr. Garland Kohli Hematocrit (Bld) [Volume fraction] 34.5 % Critically low 36.0-48.0 [facility] Comment on above: Performed By: #### C BC #### [facility] [address] [place] [address] Dr. Garland Kohli Hemoglobin (Bld) [Mass/Vol] 11.6 g/dL Critically low 12.0-16.0 [facility] Comment on above: Performed By: #### C BC #### [facility] [address] [place] [address] Dr. Garland Kohli IG # 0.04 10e3/ul Critically high 0.00-0.[address] [facility] Comment on above: Performed By: #### C BC #### [facility] [address] [place] [address] Dr. Garland Kohli IG % 0.5 % Normal 0.0-0.5 [facility] Comment on above: Performed By: #### C BC #### [facility] [address] [place] [address] Dr. Garland Kohli LYMPH # 1.3 103/ul Normal 1.2-3.8 [facility] Comment on above: Performed By: #### C BC #### [facility] [address] [place] [address] Dr. Garland Kohli Lymphocytes/100 WBC (Bld) 17.6 % Critically low 20.5-60.0 [facility] Comment on above: Performed By: #### C BC #### [facility] [address] [place] [address] Dr. Garland Kohli MANUAL DIFF REQ NO Normal [facility] Comment on above: Performed By: #### C BC #### [facility] [address] [place] [address] Dr. Garland Kohli MCH (RBC) [Entitic mass] 29.6 pg Normal 26.7-34.[address] [facility] Comment on above: Performed By: #### C BC #### [facility] [address] [place] [address] Dr. Garland Kohli MCHC (RBC) [Mass/Vol] 33.6 g/dL Normal 29.9-35.[address] [facility] Comment on above: Performed By: #### C BC #### [facility] [address] [place] [address] Dr. Garland Kohli MCV (RBC) [Entitic vol] 88.0 fL Normal 81.0-99.0 [facility] Comment on above: Performed By: #### C BC #### [facility] [address] [place] [address] Dr. Garland Kohli MONO # 0.9 103/ul Critically high 0.3-0.8 [facility] Comment on above: Performed By: #### C BC #### [facility] [address] [place] [address] Dr. Garland Kohli Monocytes/100 WBC (Bld) 11.7 % Normal 1.7-12.0 [facility] Comment on above: Performed By: #### C BC #### [facility] [address] [place] [address] Dr. Garland Kohli NEUT # 5.1 103/ul Normal 1.4-6.[address] [facility] Comment on above: Performed By: #### C BC #### [facility] [address] [place] [address] Dr. Garland Kohli Neutrophils/100 WBC (Bld) 69.0 % Normal 43.0-75.[address] [facility] Comment on above: Performed By: #### C BC #### [facility] [address] [place] [address] Dr. Garland Kohli Platelet mean volume (Bld) [Entitic vol] 12.1 fL Normal 9.5-13.[address] [facility] Comment on above: Performed By: #### C BC #### [facility] [address] [address] [address] Garland Kohli PLT 193 103/ul Normal 150-[address] [facility] Comment on above: Performed By: #### C BC #### [facility] [address] [address] [address] Garland Kohli RBC 3.92 106/ul Critically low 4.20-5.40 [facility] Comment on above: Performed By: #### C BC #### [facility] [address] [address] [address] Garland Kohli WBC 7.4 103/ul Normal 4.0-11.0 [facility] Comment on above: Performed By: #### C BC #### [facility] [address] [place] [address] Dr. Garland Kohli DRUG SCREEN RAPID (URINE)on 06-23-2022 AMP Negative Normal NEGATIVE [facility] Comment on above: Performed By: #### D RUGRPD #### [facility] [address] [place] [address] Dr. Garland Kohli BAR Negative Normal NEGATIVE [facility] Comment on above: Performed By: #### D RUGRPD #### [facility] [address] [address] [address] Garland Kohli BUP Negative Normal NEGATIVE [facility] Comment on above: Performed By: #### D RUGRPD #### [facility] [address] [place] [address] Dr. Garland Kohli BZO Negative Normal NEGATIVE [facility] Comment on above: Performed By: #### D RUGRPD #### [facility] [address] [address] [address] Garland Kohli JUANI Negative Normal NEGATIVE [facility] Comment on above: Performed By: #### D RUGRPD #### [facility] [address] [place] [address] Dr. Garland Kohli CUT-OFFS SEE BELOW Normal [facility] [...] Performed By: #### D RUGRPD #### [facility] [address] [place] [address] Dr. Garland Kohli DRUG CUT HEADER DRUG CLASS TEST SYSTEM CUT-OFF CONCENTRATIONS ARE FOLLOWS: Normal [facility] Comment on above: Performed By: #### D RUGRPD #### [facility] [address] [place] [address] Dr. Garland Kohli mAMP Negative Normal NEGATIVE [facility] Comment on above: Performed By: #### D RUGRPD #### [facility] [address] [place] [address] Dr. Garland Kohli MTD Negative Normal NEGATIVE [facility] Comment on above: Performed By: #### D RUGRPD #### [facility] [address] [place] [address] Dr. Garland Kohli OPI Negative Normal NEGATIVE [facility] Comment on above: Performed By: #### D RUGRPD #### [facility] [address] [place] [address] Dr. Garland Kohli OXY Negative Normal NEGATIVE [facility] Comment on above: Performed By: #### D RUGRPD #### [facility] [address] [place] [address] Dr. Garland Kohli PCP Negative Normal NEGATIVE [facility] Comment on above: Performed By: #### D RUGRPD #### [facility] [address] [place] [address] Dr. Garland Kohli PPX Negative Normal NEGATIVE [facility] Comment on above: Performed By: #### D RUGRPD #### [facility] [address] [place] [address] Dr. Garland Kohli TCA Negative Normal NEGATIVE [facility] Comment on above: Performed By: #### D RUGRPD #### [facility] [address] [place] [address] Dr. Garland Kohli THC Negative Normal NEGATIVE [facility] Comment on above: Performed By: #### D RUGRPD #### [facility] [address] [place] [address] Dr. Garland Kohli TYPE AND SCREENon 06-23-2022 TYPE AND SCREEN Negative Normal [facility] Comment on above: Performed By: #### T NS #### [facility] [address] [place] [address] Dr. Garland Kohli FREE T4on 06-07-2022 Free T4 [Mass/Vol] 0.76 ng/dL Normal 0.76-1.46 [facility] Comment on above: Performed By: #### C BC #### [facility] [address] [place] [address] Dr. Garland Kohli TSHon 06-07-2022 TSH 1.393 uIU/mL Normal 0.358-3.740 [facility] Comment on above: Performed By: #### T SH #### [facility] [address] [place] [address] Dr. Garland Kohli GROUP B STREP CULTUREon S. agalactiae Ag Ql (Unsp spec) Culture Observations: NEGATIVE FOR GROUP B STREPTOCOCCUS. Normal [facility] Comment on above: Performed By: #### C BC #### [facility] [address] [place] [address] Dr. Garland Kohli GTT 3 HR PREGon 04-16-2022 Glucose [Mass/Vol] 87 mg/dL Normal 74-106 [facility] Comment on above: Performed By: #### G TT3P #### [facility] [address] [place] [address] Dr. Garland Kohli Glucose [Mass/Vol] 148 mg/dL Normal [facility] Comment on above: Performed By: #### G TT3P #### [facility] [address] [address] [address] Garland Kohli Glucose [Mass/Vol] 128 mg/dL Normal [facility] Comment on above: Performed By: #### G TT3P #### [facility] [address] [place] [address] Dr. Garland Kohli Glucose [Mass/Vol] 105 mg/dL Normal [facility] Comment on above: Performed By: #### G TT3P #### [facility] [address] [place] [address] Dr. Garland Kohli CBC AUTO DIFFon 04-04-2022 BASO # 0.0 103/ul Normal 0.0-0.1 [facility] Comment on above: Performed By: #### G TT3P #### [facility] [address] [place] [address] Dr. Garland Kohli Basophils/100 WBC (Bld) 0.2 % Normal 0.2-2.0 [facility] Comment on above: Performed By: #### G TT3P #### [facility] [address] [place] [address] Dr. Garland Kohli EO # 0.0 103/ul Normal 0.0-0.7 [facility] Comment on above: Performed By: #### G TT3P #### [facility] [address] [place] [address] Dr. Garland Kohli Eosinophils/100 WBC (Bld) 0.4 % Critically low 0.9-7.0 [facility] Comment on above: Performed By: #### G TT3P #### [facility] [address] [place] [address] Dr. Garland Kohli Erythrocyte distribution width (RBC) [Ratio] 12.9 % Normal 11.0-15.0 [facility] Comment on above: Performed By: #### G TT3P #### [facility] [address] [place] [address] Dr. Garland Kohli Hematocrit (Bld) [Volume fraction] 32.5 % Critically low 36.0-48.0 [facility] Comment on above: Performed By: #### G TT3P #### [facility] [address] [address] [address] Garland Kohli Hemoglobin (Bld) [Mass/Vol] 11.2 g/dL Critically low 12.0-16.0 [facility] Comment on above: Performed By: #### G TT3P #### [facility] [address] [place] [address] Dr. Garland Kohli IG # 0.07 10e3/ul Critically high 0.00-0.[address] [facility] Comment on above: Performed By: #### G TT3P #### [facility] [address] [place] [address] Dr. Garland Kohli IG % 0.8 % Critically high 0.0-0.5 [facility] Comment on above: Performed By: #### G TT3P #### [facility] [address] [place] [address] Dr. Garland Kohli LYMPH # 0.9 103/ul Critically low 1.2-3.8 [facility] Comment on above: Performed By: #### G TT3P #### [facility] [address] [place] [address] Dr. Garland Kohli Lymphocytes/100 WBC (Bld) 10.4 % Critically low 20.5-60.0 [facility] Comment on above: Performed By: #### G TT3P #### [facility] [address] [place] [address] Dr. Garland Kohli MANUAL DIFF REQ NO Normal [facility] Comment on above: Performed By: #### G TT3P #### [facility] [address] [place] [address] Dr. Garland Kohli MCH (RBC) [Entitic mass] 31.4 pg Normal 26.7-34.[address] [facility] Comment on above: Performed By: #### G TT3P #### [facility] [address] [place] [address] Dr. Garland Kohli MCHC (RBC) [Mass/Vol] 34.5 g/dL Normal 29.9-35.[address] [facility] Comment on above: Performed By: #### G TT3P #### [facility] [address] [place] [address] Dr. Garland Kohli MCV (RBC) [Entitic vol] 91.0 fL Normal 81.0-99.0 [facility] Comment on above: Performed By: #### G TT3P #### [facility] [address] [place] [address] Dr. Garland Kohli MONO # 1.1 103/ul Critically high 0.3-0.8 [facility] Comment on above: Performed By: #### G TT3P #### [facility] [address] [place] [address] Dr. Garland Kohli Monocytes/100 WBC (Bld) 12.5 % Critically high 1.7-12.0 [facility] Comment on above: Performed By: #### G TT3P #### [facility] [address] [place] [address] Dr. Garland Kohli NEUT # 6.3 103/ul Normal 1.4-6.5 [facility] Comment on above: Performed By: #### G TT3P #### [facility] [address] [place] [address] Dr. Garland Kohli Neutrophils/100 WBC (Bld) 75.7 % Critically high 43.0-75.0 [facility] Comment on above: Performed By: #### G TT3P #### [facility] [address] [place] [address] Dr. Garland Kohli Platelet mean volume (Bld) [Entitic vol] 10.5 fL Normal 9.5-13.[address] [facility] Comment on above: Performed By: #### G TT3P #### [facility] [address] [place] [address] Dr. Garland Kohli PLT 181 103/ul Normal 150-[address] [facility] Comment on above: Performed By: #### G TT3P #### [facility] [address] [place] [address] Dr. Garland Kohli RBC 3.57 106/ul Critically low 4.20-5.40 [facility] Comment on above: Performed By: #### G TT3P #### [facility] [address] [address] [address] Garland Kohli WBC 8.4 103/ul Normal 4.0-11.0 [facility] Comment on above: Performed By: #### G TT3P #### [facility] [address] [place] [address] Dr. Garland Kohli CTA CHEST WO W [...] by: DEANNA LINN Date: 2022-04-04 15:25 Normal [facility] PROF CHEM 8 (BAS METB)on Anion gap [Moles/Vol] 13.2 mmol/L Normal [facility] Comment on above: Performed By: #### G TT3P #### [facility] [address] [place] [address] Dr. Garland Kohli Calcium [Mass/Vol] 8.5 mg/dL Normal 8.5-10.1 [facility] Comment on above: Performed By: #### G TT3P #### [facility] [address] [place] [address] Dr. Garland Kohli Chloride [Moles/Vol] 103 mmol/L Normal 98-107 [facility] Comment on above: Performed By: #### G TT3P #### [facility] [address] [address] [address] Garland Kohli CO2 [Moles/Vol] 23.4 mmol/L Normal 21.0-32.0 [facility] Comment on above: Performed By: #### G TT3P #### [facility] [address] [address] [address] Garland Kohli Creatinine [Mass/Vol] 0.43 mg/dL Critically low 0.55-1.02 [facility] Comment on above: Performed By: #### G TT3P #### [facility] [address] [address] [address] Garland Kohli EGFR-AF MICRONESIAN >60 Normal >=60 [facility] Comment on above: Performed By: #### G TT3P #### [facility] [address] [address] [address] Garland Kohli EGFR-NON AF MICRONESIAN >60 Normal >=60 [facility] Comment on above: Performed By: #### G TT3P #### [facility] [address] [address] [address] Garland Kohli Glucose [Mass/Vol] 108 mg/dL Critically high 74-106 [facility] Comment on above: Performed By: #### G TT3P #### [facility] [address] [place] [address] Dr. Garland Kohli Potassium [Moles/Vol] 3.6 mmol/L Normal 3.5-5.1 [facility] Comment on above: Performed By: #### G TT3P #### [facility] [address] [address] [address] Garland Kohli Sodium [Moles/Vol] 136 mmol/L Normal 136-145 [facility] Comment on above: Performed By: #### G TT3P #### [facility] [address] [address] [address] Garland Kohli Urea nitrogen [Mass/Vol] 5.0 mg/dL Critically low 7.0-18.0 [facility] Comment on above: Performed By: #### G TT3P #### [facility] [address] [place] [address] Dr. Garland Kohli Urea nitrogen/Creatinine [Mass ratio] 11.6 mg/mg Normal [facility] Comment on above: Performed By: #### G TT3P #### [facility] [address] [place] [address] Dr. Garland Kohli TROPONIN, HIGH SENSITIVITYon 04-04-2022 HSTROP 9.3 pg/mL Normal 4.0-51.[address] [facility] Comment on above: Result Comment: CUT- OFF POINTS HAVE BEEN ESTABLISHED BASED ON THE FOURTH UNIVERSAL DEFINITIONS OF MYOCARDIAL INFARCTION. THE UPPER REFERENCE LIMIT (URL) OF TROPONIN, DEFINED THE 99TH PERCENTILE OF cTnI DISTRIBUTION IN A REFERENCE POPULATION, HAS BEEN CONFIRMED THE DECISION THRESHOLD FOR SD DIAGNOSIS. Performed By: #### G TT3P #### [facility] [address] [place] [address] Dr. Garland Kohli CBC AUTO DIFFon 03-26-2022 BASO # 0.0 103/ul Normal 0.0-0.1 [facility] Comment on above: Performed By: #### G TT3P #### [facility] [address] [place] [address] Dr. Garland Kohli Basophils/100 WBC (Bld) 0.2 % Normal 0.2-2.0 [facility] Comment on above: Performed By: #### G TT3P #### [facility] [address] [place] [address] Dr. Garland Kohli EO # 0.1 103/ul Normal 0.0-0.[address] [facility] Comment on above: Performed By: #### G TT3P #### [facility] [address] [place] [address] Dr. Garland Kohli Eosinophils/100 WBC (Bld) 1.0 % Normal 0.9-7.[address] [facility] Comment on above: Performed By: #### G TT3P #### [facility] [address] [place] [address] Dr. Garland Kohli Erythrocyte distribution width (RBC) [Ratio] 12.8 % Normal 11.0-15.0 [facility] Comment on above: Performed By: #### G TT3P #### [facility] [address] [place] [address] Dr. Garland Kohli Hematocrit (Bld) [Volume fraction] 36.2 % Normal 36.0-48.0 [facility] Comment on above: Performed By: #### G TT3P #### [facility] [address] [place] [address] Dr. Garland Kohli Hemoglobin (Bld) [Mass/Vol] 12.2 g/dL Normal 12.0-16.0 [facility] Comment on above: Performed By: #### G TT3P #### [facility] [address] [place] [address] Dr. Garland Kohli IG # 0.08 10e3/ul Critically high 0.00-0.[address] [facility] Comment on above: Performed By: #### G TT3P #### [facility] [address] [place] [address] Dr. Garland Kohli IG % 0.9 % Critically high 0.0-0.5 [facility] Comment on above: Performed By: #### G TT3P #### [facility] [address] [place] [address] Dr. Garland Kohli LYMPH # 1.7 103/ul Normal 1.2-3.8 [facility] Comment on above: Performed By: #### G TT3P #### [facility] [address] [place] [address] Dr. Garland Kohli Lymphocytes/100 WBC (Bld) 17.8 % Critically low 20.5-60.0 [facility] Comment on above: Performed By: #### G TT3P #### [facility] [address] [place] [address] Dr. Garland Kohli MANUAL DIFF REQ NO Normal [facility] Comment on above: Performed By: #### G TT3P #### [facility] [address] [place] [address] Dr. Garland Kohli MCH (RBC) [Entitic mass] 30.7 pg Normal 26.7-34.0 [facility] Comment on above: Performed By: #### G TT3P #### [facility] [address] [address] [address] Garland Kohli MCHC (RBC) [Mass/Vol] 33.7 g/dL Normal 29.9-35.[address] [facility] Comment on above: Performed By: #### G TT3P #### [facility] [address] [address] [address] Garland Kohli MCV (RBC) [Entitic vol] 91.2 fL Normal 81.0-99.[address] [facility] Comment on above: Performed By: #### G TT3P #### [facility] [address] [address] [address] Garland Kohli MONO # 0.6 103/ul Normal 0.3-0.8 [facility] Comment on above: Performed By: #### G TT3P #### [facility] [address] [place] [address] Dr. Garland Kohli Monocytes/100 WBC (Bld) 6.0 % Normal 1.7-12.0 [facility] Comment on above: Performed By: #### G TT3P #### [facility] [address] [place] [address] Dr. Garland Kohli NEUT # 6.9 103/ul Critically high 1.4-6.5 [facility] Comment on above: Performed By: #### G TT3P #### [facility] [address] [place] [address] Dr. Garland Kohli Neutrophils/100 WBC (Bld) 74.1 % Normal 43.0-75.[address] [facility] Comment on above: Performed By: #### G TT3P #### [facility] [address] [place] [address] Dr. Garland Kohli Platelet mean volume (Bld) [Entitic vol] 10.2 fL Normal 9.5-13.[address] [facility] Comment on above: Performed By: #### G TT3P #### [facility] [address] [address] [address] Garland Kohli PLT 217 103/ul Normal 150-[address] [facility] Comment on above: Performed By: #### G TT3P #### [facility] [address] [place], [place] [address] Dr. Garland Kohli RBC 3.97 106/ul Critically low 4.20-5.40 [facility] Comment on above: Performed By: #### G TT3P #### [facility] [address] [place], [place] [address] Dr. Garland Kohli WBC 9.3 103/ul Normal 4.0-11.0 [facility] Comment on above: Performed By: #### G TT3P #### [facility] [address] [address] [address] Garland Kohli GLUCOSE - 1HRon 03-26-2022 Glucose [Mass/Vol] 155 mg/dL Critically high 74-106 [facility] Comment on above: Performed By: #### C BC #### [facility] [address] [address] [address] Garland Kohli US PREG ANATOMY SINGLEon [...] YAAKOV HOUSER Date: 2022-02-09 19:30 Normal [facility] AFP MATERNAL FOR SPINA BIFID Aon 01-29-2022 AFP MoM 0.76 Normal [facility] Comment on above: Performed By: #### G TT3P #### [facility] [address] [address] [address] Garland Kohli AFP Value 35.4 ng/mL Normal [facility] Comment on above: Performed By: #### G TT3P #### [facility] [address] [address] [address] Garland Kohli AFP, Serum for Spina Bifida Report Normal [facility] Comment on above: Performed By: #### G TT3P #### [facility] [address] [address] [address] Garland Kohli Comment Comment Normal [facility] Comment on above: Result Comment: Stanley Almodovar, Ph.D., [facility] Director . References: Available Upon Request. . Multiples Of Median Cutoffs For AFP Elevations Mark 2.5 Black 2.8 IDD 2.0 Twins 4.5 Abbreviation Definitions IDD - Insulin Dep Diabetes OSBR - Open Spina Bifida Risk . For further inquiries contact [facility] at [phone]. . This test was developed and its performance characteristics determined by [employer]. It has not been cleared or approved by the Food and Drug Administration. Performed By: #### G TT3P #### [facility] [address] [address] [address] Garland Izquierdo Age Collection Date 18.1 weeks Normal [facility] Comment on above: Performed By: #### G TT3P #### [facility] [address] [place] [address] Dr. Garland Kohli Gestat, Age Based on Ultrasound Normal [facility] Comment on above: Result Comment: 09:4 on 11/26/2021 Recalculations are not recommended when gestational dating by LMP and ultrasound are within 10 days. Performed By: #### G TT3P #### [facility] [address] [address] [address] Garland Kohli Insulin Dep Diabetes No Normal [facility] Comment on above: Performed By: #### G TT3P #### [facility] [address] [address] [address] Garland Kohli Interpretation Comment Normal [facility] [place] Comment on above: Result Comment: Inte [...] Customer Services to discuss available options. The [employer] recommends amniocentesis be offered to women age 35 and older. Performed By: #### G TT3P #### [facility] [address] [place] [address] Dr. Garland Kohli Maternal Age at SERENA 26.[address] [facility] Comment on above: Performed By: #### G TT3P #### [facility] [address] [place] [address] Dr. Garland Kohli Multiple Gestation No Normal [facility] Comment on above: Performed By: #### G TT3P #### [facility] [address] [place] [address] Dr. Garland Koh[place] [address] [place] [address] [facility] Comment on above: Performed By: #### G TT3P #### [facility] [address] [place] [address] Dr. Garland Kohli PDF . Normal [facility] Comment on above: Performed By: #### G TT3P #### [facility] [address] [place] [address] Dr. Garland Kohli Race Normal [facility] Comment on above: Performed By: #### G TT3P #### [facility] [address] [place] [address] Dr. Garland Kohli Test Results: Negative [facility] Comment on above: Performed By: #### G TT3P #### [facility] [address] [place] [address] Dr. Garland Kohli PAP ACOG PANEL 2: 21 to 29on 01-23-2022 . . Normal [facility] Comment on above: Performed By: #### 4 [id number] #### [facility] [address] [place] [address] Dr. Garland Kohli Age Gdln ACOG Testing [facility] Comment on above: Performed By: #### 4 [id number] #### [facility] [address] [place] [address] Dr. Garland Kohli DIAGNOSIS: Comment [facility] Comment on above: Result Comment: NEGA TIVE FOR INTRAEPITHELIAL LESION OR MALIGNANCY. Performed By: #### [id number] #### [facility] [address] [place] [address] Dr. Garland Kohli Methodology: Comment [facility] Comment on above: Result Comment: This liquid based ThinPrep(R) pap test was screened with the use of an image guided system. Performed By: #### 4 [id number] #### [facility] [address] [place] [address] Dr. Garland Kohli Note: Comment [facility] Comment on above: Result Comment: The Pap smear is a screening test designed to aid in the detection of premalignant and malignant conditions of the uterine cervix. It is not a diagnostic procedure and should not be used as the sole means of detecting cervical cancer. Both false-positive and false-negative reports do occur. . Performed By: #### 4 [id number] #### [facility] [address] [place] [address] Dr. Garland Kohli Performed by: Comment [facility] Comment on above: Result Comment: Kelly Arreguin, Bin Operator (ASCP) Performed By: #### 4 [id number] #### [facility] [address] [place] [address] Dr. Garland Kohli Reflex Criteria: Comment [facility] Comment on above: Result Comment: The HPV DNA reflex criteria were not met with this specimen result therefore, no HPV testing was performed. . Performed By: #### 4 [id number] #### [facility] [address] [place] [address] Dr. Garland Kohli Specimen adequacy: Comment Normal [facility] Comment on above: Result Comment: Sati sfactory for evaluation. No endocervical component is identified. Performed By: #### 4 [id number] #### [facility] [address] [place] [address] Dr. Garland Kohli CHLAMYDIA/GONOCOCCUS JUAN (SW AB/URINE/PAPon 01-20-2022 Chlamydia trachomatis, JUAN Negative Normal Negative [facility] Comment on above: Performed By: #### C BC #### [facility] [address] [place] [address] Dr. Garland Kohli Neisseria gonorrhoeae, JUAN Negative Normal Negative [facility] Comment on above: Performed By: #### C BC #### [facility] [address] [place] [address] Dr. Garland Kohli TSHon 01-04-2022 TSH 1.707 uIU/mL Normal 0.358-3.740 [facility] Comment on above: Performed By: #### G TT3P #### [facility] [address] [place] [address] Dr. Garland Kohli HEPATITIS C VIRUS AB W/ REFL EX QUANTon 12-17-2021 HCV AB <0.1 Normal 0.0-0.9 [facility] Comment on above: Performed By: #### G TT3P #### [facility] [address] [place] [address] Dr. Garland Kohli Interpretation: Comment Normal [facility] Comment on above: Result Comment: Nega tive Not infected with HCV, unless recent infection is suspected or other evidence exists to indicate HCV infection. Performed By: #### G TT3P #### [facility] [address] [place] [address] Dr. Garland Kohli CULTURE URINEon 12-15-2021 CULTURE URINE Culture Observations : GREATER THAN TWO ORGANISMS PRESENT. PLEASE RESUBMIT CLEAN CATCH MID-STREAM URINE IF CLINICALLY INDICATED. Normal [facility] Comment on above: Performed By: #### U RCX #### [facility] [address] [place] [address] Dr. Garland Kolhi HEP B SURFACE ANTIGEN SCREEN on 12-15-2021 HBsAg Screen Negative Normal Negative [facility] Comment on above: Performed By: #### H BSANS #### [facility] [address] [place] [address] Dr. Garland Kohli HIV 1 AND 2 WITH REFLEXon HIV Screen 4th Generation wRfx Non-Reactive Normal Non Reactive [facility] Comment on above: Result Comment: HIV Negative HIV-1/HIV-2 antibodies and HIV-1 p24 antigen were NOT detected. There is no laboratory evidence of HIV infection. Performed By: #### H IV12 #### [facility] [address] [place] [address] Dr. Garland Kohli RPR QUANTon 12-15-2021 Rapid Plasma Reagin, Quant Non-Reactive Normal NonRea<1:[address] [facility] Comment on above: Result Comment: Plea se Note: This test does not meet current guidelines for screening and diagnosis of syphilis. This test is intended for following treatment response in patients being treated for syphilis infection. To screen for syphilis infection, a reflex cascade that includes both RPR and a treponema-specific assay should be utilized, such as Treponema pallidum (Syphilis) Screening [place] (266332) or Rapid Plasma Reagin (RPR) Test With Reflex to Quantitative RPR and Confirmatory Treponema pallidum Antibodies (288706). Performed By: #### G TT3P #### [facility] [address] [place] [address] Dr. Garland Kohli RUBELLA AB IGGon 12-15-2021 Rubella Antibodies, IgG 4.72 index Normal Immune >0.99 [facility] Comment on above: Result Comment: Non- immune <0.90 Equivocal 0.90 - 0.99 Immune >0.99 Performed By: #### G TT3P #### [facility] [address] [place] [address] Dr. Garland Kohli CBC AUTO DIFFon 12-14-2021 BASO # 0.0 103/ul Normal 0.0-0.1 [facility] Comment on above: Performed By: #### C BC #### [facility] [address] [place] [address] Dr. Garland Kohli Basophils/100 WBC (Bld) 0.3 % Normal 0.2-2.0 [facility] Comment on above: Performed By: #### C BC #### [facility] [address] [place] [address] Dr. Garland Kohli EO # 0.1 103/ul Normal 0.0-0.7 [facility] Comment on above: Performed By: #### C BC #### [facility] [address] [place] [address] Dr. Garland Kohli Eosinophils/100 WBC (Bld) 0.8 % Critically low 0.9-7.0 [facility] Comment on above: Performed By: #### C BC #### [facility] [address] [place] [address] Dr. Garland Kohli Erythrocyte distribution width (RBC) [Ratio] 12.6 % Normal 11.0-15.0 [facility] Comment on above: Performed By: #### C BC #### [facility] [address] [place] [address] Dr. Garland Kohli Hematocrit (Bld) [Volume fraction] 34.3 % Critically low 36.0-48.0 [facility] Comment on above: Performed By: #### C BC #### [facility] [address] [place] [address] Dr. Garland Kohli Hemoglobin (Bld) [Mass/Vol] 11.7 g/dL Critically low 12.0-16.0 [facility] Comment on above: Performed By: #### C BC #### [facility] [address] [place] [address] Dr. Garland Kohli IG # 0.03 10e3/ul Normal 0.00-0.03 [facility] Comment on above: Performed By: #### C BC #### [facility] [address] [place] [address] Dr. Garland Kohli IG % 0.4 % Normal 0.0-0.5 [facility] Comment on above: Performed By: #### C BC #### [facility] [address] [place] [address] Dr. Garland Kohli LYMPH # 1.5 103/ul Normal 1.2-3.8 [facility] Comment on above: Performed By: #### C BC #### [facility] [address] [place] [address] Dr. Garland Kohli Lymphocytes/100 WBC (Bld) 21.1 % Normal 20.5-60.0 [facility] Comment on above: Performed By: #### C BC #### [facility] [address] [place] [address] Dr. Garland Kohli MANUAL DIFF REQ NO Normal [facility] Comment on above: Performed By: #### C BC #### [facility] [address] [place] [address] Dr. Garland Kohli MCH (RBC) [Entitic mass] 30.5 pg Normal 26.7-34.0 [facility] Comment on above: Performed By: #### C BC #### [facility] [address] [place] [address] Dr. Garland Kohli MCHC (RBC) [Mass/Vol] 34.1 g/dL Normal 29.9-35.2 [facility] Comment on above: Performed By: #### C BC #### [facility] [address] [place] [address] Dr. Garland Kohli MCV (RBC) [Entitic vol] 89.6 fL Normal 81.0-99.0 [facility] Comment on above: Performed By: #### C BC #### [facility] [address] [place] [address] Dr. Garland Kohli MONO # 0.5 103/ul Normal 0.3-0.8 [facility] Comment on above: Performed By: #### C BC #### [facility] [address] [place] [address] Dr. Garland Kohli Monocytes/100 WBC (Bld) 7.1 % Normal 1.7-12.0 [facility] Comment on above: Performed By: #### C BC #### [facility] [address] [place] [address] Dr. Garland Kohli NEUT # 5.0 103/ul Normal 1.4-6.5 [facility] Comment on above: Performed By: #### C BC #### [facility] [address] [place] [address] Dr. Garland Kohli Neutrophils/100 WBC (Bld) 70.3 % Normal 43.0-75.0 [facility] Comment on above: Performed By: #### C BC #### [facility] [address] [place] [address] Dr. Garland Kohli Platelet mean volume (Bld) [Entitic vol] 10.1 fL Normal 9.5-13.5 [facility] Comment on above: Performed By: #### C BC #### [facility] [address] [place] [address] Dr. Garland Kohli PLT 234 103/ul Normal 150-450 [facility] Comment on above: Performed By: #### C BC #### [facility] [address] [place] [address] Dr. Garland Kohli RBC 3.83 106/ul Critically low 4.20-5.40 [facility] Comment on above: Performed By: #### C BC #### [facility] [address] [place] [address] Dr. Garland Kohli WBC 7.1 103/ul Normal 4.0-11.0 [facility] Comment on above: Performed By: #### C BC #### [facility] [address] [place] [address] Dr. Garland Kohli GLYCOHEMOGLOBIN A1Con 2021 ADA RECOMMENDATION SEE BELOW Normal [facility] Comment on above: Result Comment: ADA RECOMMENDED LIMIT 4.0 - 6.0 ADA THERAPEUTIC TARGET < 7.0 ACTION SUGGESTED > 7.0 Performed By: #### A 1C #### [facility] [address] [place] [address] Dr. Garland Kohli Glucose [Mass/Vol] 103 mg/dL Normal [facility] Comment on above: Performed By: #### A 1C #### [facility] [address] [place] [address] Dr. Garland Kohli HbA1c (Bld) [Mass fraction] 5.2 % Normal 4.5-6.2 [facility] Comment on above: Performed By: #### A 1C #### [facility] [address] [place] [address] Dr. Garland Kohli MARTÍNEZ BOX TEST PT SEND OUTo n 12-14-2021 SENT TO REF LAB 12/14/21 Normal [facility] Comment on above: Performed By: #### G TT3P #### [facility] [address] [place] [address] Dr. Garland Kohli TYPE AND SCREENon 12-14-2021 TYPE AND SCREEN Negative Normal [facility] Comment on above: Performed By: #### C BC #### [facility] [address] [place] [address] Dr. Garland Kohli US PREG TVon 11-26-2021 [...] by: YAAKOV HOUSER Date: 2021-11-26 18:36 Normal [facility] OPERATIVE REPORTon OPERATIVE REPORT [address] [id number] OPERATIVE REPORT PATIENT NAME: CECELIA JOHNSON : 1995 MED REC NO: [id number] ROOM: ACCOUNT NO: [id number] ADMIT DATE: 11/24/2018 PROVIDER: Mode Renee DATE [...] infiltrated into the drains, this was for medical terminologist pain control. Steri-Strips applied throughout and then bulky gauze dressing as well as surgical bra was applied. The patient was awoken, extubated, and transported to the recovery room in stable condition. Sponge, needle, and instrument counts were reported correct x2 at the end of the case. MODE RENEE [id number] Doc#: [id number] CC: Carlos Alberto Coleman Normal [facility] Surgical Pathologyon 019 Surgical Pathology (NOTE) [id number] [place] [address] SURGICAL PATHOLOGY REPORT Patient Name: CECELIA JOHNSON MR#: [id number] Specimen #[id number] Final Diagnosis SPECIMEN A : BREAST AND [...] The entire specimen weighs 453 grams. Multiple practice representative sections are submitted in five cassettes [...] also sampled in multiple different areas and practice representative sections are submitted in five cassettes for microscopic examination. Microscopic Description Specimen A : Five RICHARD glass slides are received. Microscopic examination is performed. Specimen B : Five RICHARD glass slides are received. Microscopic examination is performed. Normal [facility] Comment on above: Performed By: #### P PPES #### [facility] [address] [place] [address] Safety Equipment Tester: Victor Manuel Hunter DO CNOVSPon 11-18-2018 CNOVSP Visit (SP) Office ([facility]) CECELIA JOHNSON ([id number]) 1995 F Date Time Provider Department 11/18/18 1:00 PM JAZ MOULTON) [facility] During your visit today, we recorded the following information about you: Temperature Pulse Respiration Blood pressure 97.9 degrees 82/minute 18/minute 122/78 Weight Height Last Period 82.7 kg 1.6 m 10/15/18 Jaz Moulton MD 11/18/2018 3:08 PM Signed PATIENT NAME: Cecelia Johnson CLINIC NO.: [id number] ATTENDING PHYSICIAN: Jaz Moulton MD DATE OF [...] file Gets together: Not on file Attends mandaeism service: Not on file Active member of [...] Jaz Moulton M.D. Hematology/Medical Oncology [facility] [phone] CC: Carlos Alberto Coleman MD - (Inactive), In Basket (Inactive) - User (Inactive) [address] [place] [address] () Mode Renee MD Referring Provider: [...] Nathan - Fully Assessed Visit Diagnosis:MTHFR mutation ([facility]) [E72.12] Prescriptions as of 11/18/2018 Sig: [...] Of Date 11/18/2018 Noted Resolved MTHFR mutation ([facility]) [E72.12] INVALID FOR* Encounter Status:Closed by JAZ MOULTON MD on 11/18/18 Normal [facility] PROGRESSon 11-18-2018 PROGRESS HNO ID: [id number] Author: Jaz Moulton Service: ? Author Type: Physician Type: Progress Notes Filed: 11/18/2018 3:08 PM Note Text: PATIENT NAME: Cecelia Polta CLINIC NO.: [id number] ATTENDING PHYSICIAN: Jaz Moulton MD DATE OF [...] file Gets together: Not on file Attends mandaeism service: Not on file Active member of [...] below. Jaz Moulton M.D. Hematology/Medical Oncology [facility] [place] [address] [phone] CC: Carlos Alberto Coleman MD - (Inactive), In Basket (Inactive) - User (Inactive) [address] [facility] [phone] (Ph) Mode Renee MD [facility] Basic Metabolic Profon 11-10 (cont.) Normal [facility] Comment on above: Result Comment: Aver age GFR for 20-29 years old: 116 mL/min/1.73sq m Chronic Kidney Disease: <60 mL/min/1.73sq m Kidney failure: <15 mL/min/1.73sq m eGFR calculated using average adult body mass. Additional eGFR calculator available at: http://www.[employer]/multiple_crcl_2012.htm Performed By: #### C DP, BMP #### [facility] [address] [facility] [place], [place] [id number] Safety Equipment Tester: Vicotr Manuel Hunter DO Anion gap [Moles/Vol] 11 mmol/L Normal 9-17 [facility] Comment on above: Performed By: #### C DP, BMP #### [facility] [address] [facility] [place], [place] [id number] Safety Equipment Tester: Victor Manuel Hunter DO Calcium [Mass/Vol] 9.7 mg/dL Normal 8.6-10.4 [facility] Comment on above: Performed By: #### C DP, BMP #### [facility] [address] [place] [address] Safety Equipment Tester: Victor Manuel Hunter DO Chloride [Moles/Vol] 102 mmol/L Normal 98-[address] [facility] Comment on above: Performed By: #### C DP, BMP #### [facility] [address] [place] [address] Safety Equipment Tester: Victor Manuel Hunter DO CO2 [Moles/Vol] 26 mmol/L Normal 20-31 [facility] Comment on above: Performed By: #### C DP, BMP #### [facility] [place] [address] Safety Equipment Tester: Victor Manuel Hunter DO Creatinine [Mass/Vol] 0.49 mg/dL Low 0.50-0.90 [facility] Comment on above: Performed By: #### C DP, BMP #### [facility] [place] [address] Safety Equipment Tester: Victor Manuel Hunter DO GFR, Amer >60 Normal >60 [facility] Comment on above: Performed By: #### C DP, BMP #### [facility] [place] [address] Safety Equipment Tester: Victor Manuel Hunter DO GFR,non Amer >60 Normal >[address] [facility] Comment on above: Performed By: #### C DP, BMP #### [facility] [place] [address] Safety Equipment Tester: Victor Manuel Hunter DO Glucose [Mass/Vol] 88 mg/dL Normal 70-99 [facility] Comment on above: Performed By: #### C DP, BMP #### [facility] [place] [address] Safety Equipment Tester: Victor Manuel Hunter DO Potassium [Moles/Vol] 4.3 mmol/L Normal 3.7-5.3 [facility] Comment on above: Performed By: #### C DP, BMP #### [facility] [address] [place] [address] Safety Equipment Tester: Victor Manuel Hunter DO Sodium [Moles/Vol] 139 mmol/L Normal 135-144 [facility] Comment on above: Performed By: #### C DP, BMP #### [facility] [address] [place] [address] Safety Equipment Tester: Victor Manuel Hunter DO Urea nitrogen [Mass/Vol] 8 mg/dL Normal -20 [facility] Comment on above: Performed By: #### C DP, BMP #### [facility] [address] [place] [address] Safety Equipment Tester: Victor Manuel Hunter DO BUN/CRE Ratio NOT REPORTED Normal -20 [facility] Comment on above: Performed By: #### C FARAZ, BMP #### [facility] [address] [place] [id number] Safety Equipment Tester: Victor Manuel Hunter DO Staging: NOT REPORTED Normal [facility] Comment on above: Performed By: #### C FARAZ, BMP #### [facility] [address] [place] [address] Safety Equipment Tester: Victor Manuel Hunter DO CBC with Diffon 11-10-2018 Abs. Basophil 0.00 k/uL Normal 0.0-0.2 [facility] Comment on above: Performed By: #### C DP, BMP #### [facility] [address] [place] [address] Safety Equipment Tester: Victor Manuel Hunter DO Abs.Neutrophil (Seg) 3.00 k/uL Normal 1.3-9.[address] [facility] Comment on above: Performed By: #### C DP, ROSA #### [facility] [address] [facility] [place] [address] Safety Equipment Tester: Victor Manuel Hunter DO Basophils/100 WBC (Bld) 0 % Normal 0-2 [facility] Comment on above: Performed By: #### C DP, BMP #### [facility] [address] [place] [address] Safety Equipment Tester: Victor Manuel Hunter DO Eosinophils (Bld) [#/Vol] 0.10 10*3/uL Normal 0.0-0.4 [facility] Comment on above: Performed By: #### C DP, BMP #### [facility] [address] [place] [address] Safety Equipment Tester: Victor Manuel Hunter DO Eosinophils/100 WBC (Bld) 1 % Normal 0-4 [facility] Comment on above: Performed By: #### C DP, BMP #### [facility] [address] [place] [address] Safety Equipment Tester: Victor Manuel Hunter DO Erythrocyte distribution width (RBC) [Ratio] 12.7 % Normal 11.5-14.9 [facility] Comment on above: Performed By: #### C DP, BMP #### [facility] [address] [place] [address] Safety Equipment Tester: Victor Manuel Hunter DO Hematocrit (Bld) [Volume fraction] 42.3 % Normal 36-46 [facility] Comment on above: Performed By: #### C DP, BMP #### [facility] [address] [place] [address] Safety Equipment Tester: Victor Manuel Hunter DO Hemoglobin (Bld) [Mass/Vol] 14.3 g/dL Normal 12.0-16.0 [facility] Comment on above: Performed By: #### C DP, BMP #### [facility] [address] [place] [address] Safety Equipment Tester: Victor Manuel Hunter DO Lymphocytes (Bld) [#/Vol] 1.70 10*3/uL Normal 1.0-4.8 [facility] Comment on above: Performed By: #### C DP, BMP #### [facility] [address] [place] [address] Safety Equipment Tester: Victor Manuel Hunter DO Lymphocytes/100 WBC (Bld) 32 % Normal 24-44 [facility] Comment on above: Performed By: #### C FARAZ, BMP #### [facility] [address] [place] [address] Safety Equipment Tester: Victor Manuel Hunter DO MCH (RBC) [Entitic mass] 30.0 pg Normal 26-34 [facility] Comment on above: Performed By: #### C DP, BMP #### [facility] [address] [place] [address] Safety Equipment Tester: Victor Manuel Hunter DO MCHC (RBC) [Mass/Vol] 33.7 g/dL Normal 31-37 [facility] Comment on above: Performed By: #### C FARAZ, BMP #### [facility] [address] [place] [address] Safety Equipment Tester: Victor Manuel Hunter DO MCV (RBC) [Entitic vol] 89.0 fL Normal 80-100 [facility] Comment on above: Performed By: #### C DP, BMP #### [facility] [address] [place] [address] Safety Equipment Tester: Victor Manuel Hunter DO Monocytes (Bld) [#/Vol] 0.60 10*3/uL Normal 0.1-1.3 [facility] Comment on above: Performed By: #### C DP, BMP #### [facility] [address] [place] [address] Safety Equipment Tester: Victor Manuel Hunter DO Monocytes/100 WBC (Bld) 11 % High 1-7 [facility] Comment on above: Performed By: #### C DP, BMP #### [facility] [address] [facility] [place] [address] Safety Equipment Tester: Victor Manuel Hunter DO Neutrophil (Seg) 56 % Normal 36-66 [facility] Comment on above: Performed By: #### C DP, BMP #### [facility] [address] [facility] [place] [address] Safety Equipment Tester: Victor Manuel Hunter DO Platelet mean volume (Bld) [Entitic vol] 9.4 fL Normal 6.0-12.0 [facility] Comment on above: Performed By: #### C DP, BMP #### [facility] [place] [address] Safety Equipment Tester: Victor Manuel Hunter DO Platelets (Bld) [#/Vol] 252 10*3/uL Normal 150-450 [facility] Comment on above: Performed By: #### C DP, BMP #### [facility] [place] [address] Safety Equipment Tester: Victor Manuel Hunter DO RBC (Bld) [#/Vol] 4.75 10*6/uL Normal 4.0-5.2 [facility] Comment on above: Performed By: #### C DP, BMP #### [facility] [place] [address] Safety Equipment Tester: Victor Manuel Hunter DO WBC (Bld) [#/Vol] 5.3 10*3/uL Normal 3.5-11.0 [facility] Comment on above: Performed By: #### C DP, BMP #### [facility] [place] [address] Safety Equipment Tester: Victor Manuel Hunter DO Abs.Imm.Granulocyte NOT REPORTED Normal 0.00-0.30 [facility] Comment on above: Performed By: #### C DP, BMP #### [facility] [address] [place] [id number] Safety Equipment Tester: Victor Manuel Hunter DO Auto Diff Performed NOT REPORTED Normal [facility] Comment on above: Performed By: #### C DP, BMP #### [facility] [address] [place] [address] Safety Equipment Tester: Victor Manuel Hunter DO Immature granulocytes (Bld) [#/Vol] NOT REPORTED Normal 0 [facility] Comment on above: Performed By: #### C DP, BMP #### [facility] [address] [place] [address] Safety Equipment Tester: Victor Manuel Hunter DO NRBC Automated NOT REPORTED Normal [facility] Comment on above: Performed By: #### C DP, BMP #### [facility] [address] [place] [address] Safety Equipment Tester: Victor Manuel Hunter DO Platelets (Bld) [#/Vol] NOT REPORTED Normal [facility] Comment on above: Performed By: #### C DP, BMP #### [facility] [address] [place] [address] Safety Equipment Tester: Victor Manuel Hunter DO RBC morphology finding Nom (Bld) NOT REPORTED Normal [facility] Comment on above: Performed By: #### C DP, BMP #### [facility] [address] [place] [address] Safety Equipment Tester: Victor Manuel Hunter DO WBC Morphology NOT REPORTED Normal [facility] Comment on above: Performed By: #### C DP, BMP #### [facility] [address] [place] [address] Safety Equipment Tester: Victor Manuel Hunter DO Vital Signs Date Time Vital Sign Value Performing Clinician Facility 05-25-2024 14:24-0500 Body mass index (BMI) [Ratio] 33.03 kg/m2 Herber Nnamdi DO Work Phone: [facility] 05-25-2024 14:24-0500 Body weight 87.27 kg Herber Nnamdi DO Work Phone: [facility] 05-25-2024 14:24-0500 Diastolic blood pressure 84 mm[Hg] Herber Nnamdi DO Work Phone: [facility] 05-25-2024 14:24-0500 Systolic blood pressure 124 mm[Hg] Herber Nnamdi DO Work Phone: [facility] 05-09-2024 16:07-0500 Body mass index (BMI) [Ratio] 32.61 kg/m2 Tori [place] PA Work Phone: [facility] 05-09-2024 16:07-0500 Body weight 86.18 kg Tori [place] PA Work Phone: [facility] 05-09-2024 16:07-0500 Diastolic blood pressure 82 mm[Hg] Tori [place] PA Work Phone: [facility] 05-09-2024 16:07-0500 Systolic blood pressure 120 mm[Hg] Tori Dwight PA Work Phone: [facility] 05-03-2024 16:38-0500 Body height 162.6 cm Tori Jasonchol [employer] Work Phone: [facility] 05-03-2024 16:38-0500 Body mass index (BMI) [Ratio] 32.3 kg/m2 Tori Jasonchol [employer] Work Phone: [facility] 05-03-2024 16:38-0500 Body temperature 97.59 [degF] Tori Gomezchol [employer] Work Phone: [facility] 05-03-2024 16:38-0500 Body weight 85.37 kg Tori Gomezchol [employer] Work Phone: [facility] 05-03-2024 16:38-0500 Diastolic blood pressure 72 mm[Hg] Tori Gomezchol [employer] Work Phone: [facility] 05-03-2024 16:38-0500 Heart rate 93 /min Tori Gomezchol [employer] Work Phone: [facility] 05-03-2024 16:38-0500 SaO2% (BldA) [Mass fraction] 99 % Tori Gomezchol [employer] Work Phone: [facility] 05-03-2024 16:38-0500 Systolic blood pressure 124 mm[Hg] Tori Gomezchol [employer] Work Phone: [facility] 04-21-2024 08:49-0500 Body mass index (BMI) [Ratio] 32.06 kg/m2 Herber Nnamdi DO Work Phone: [facility] 04-21-2024 08:49-0500 Body weight 84.73 kg Herber Nnamdi DO Work Phone: [facility] 04-21-2024 08:49-0500 Diastolic blood pressure 72 mm[Hg] Herber Nnamdi DO Work Phone: [facility] 04-21-2024 08:49-0500 Systolic blood pressure 104 mm[Hg] Herber Nnamdi DO Work Phone: [facility] 04-13-2024 15:58-0500 Body mass index (BMI) [Ratio] 31.78 kg/m2 Tori Pepe PA Work Phone: [facility] 04-13-2024 15:58-0500 Body weight 83.97 kg Tori Pepe PA Work Phone: [facility] 04-13-2024 15:58-0500 Diastolic blood pressure 80 mm[Hg] Tori Pepe PA Work Phone: [facility] 04-13-2024 15:58-0500 Systolic blood pressure 120 mm[Hg] Tori Dwight PA Work Phone: [facility] 04-06-2024 16:29-0500 Body mass index (BMI) [Ratio] 31.65 kg/m2 Tori Dwight PA Work Phone: [facility] 04-06-2024 16:29-0500 Body weight 83.64 kg Tori Dwight PA Work Phone: [facility] 04-06-2024 16:29-0500 Diastolic blood pressure 74 mm[Hg] Tori [place] PA Work Phone: [facility] 04-06-2024 16:29-0500 Systolic blood pressure 112 mm[Hg] Tori Dwight PA Work Phone: [facility] 03-09-2024 16:25-0500 Body mass index (BMI) [Ratio] 30.88 kg/m2 Tori [place] PA Work Phone: [facility] 03-09-2024 16:25-0500 Body weight 81.6 kg Tori Dwight PA Work Phone: [facility] 03-09-2024 16:25-0500 Diastolic blood pressure 70 mm[Hg] Tori [place] PA Work Phone: [facility] 03-09-2024 16:25-0500 Systolic blood pressure 114 mm[Hg] Tori Dwight PA Work Phone: [facility] 02-10-2024 14:44-0400 Body mass index (BMI) [Ratio] 29.39 kg/m2 Herber Nnamdi DO Work Phone: [facility] 02-10-2024 14:44-0400 Body weight 77.68 kg Herber Nnamdi DO Work Phone: [facility] 02-10-2024 14:44-0400 Diastolic blood pressure 68 mm[Hg] Herber Nnamdi DO Work Phone: [facility] 02-10-2024 14:44-0400 Systolic blood pressure 116 mm[Hg] Herber Nnamdi DO Work Phone: [facility] 01-11-2024 16:03-0400 Body mass index (BMI) [Ratio] 28.06 kg/m2 Herber Nnamdi DO Work Phone: [facility] 01-11-2024 16:03-0400 Body weight 74.16 kg Herber Nnamdi DO Work Phone: [facility] 01-11-2024 16:03-0400 Diastolic blood pressure 72 mm[Hg] Herber Nnamdi DO Work Phone: [facility] 01-11-2024 16:03-0400 Systolic blood pressure 118 mm[Hg] Herber Nnamdi DO Work Phone: [facility] 01-29-2022 02:06-0400 Body weight 67.[address] ZEN BREWER . [facility] Comment on above: Performed By: #### GTT3P #### [facility] [address] [place] [address] Dr. Garland Kohli Encounters Encounter Date Encounter Type Care Provider Facility Start: 05-25-2024 End: 05-25-2024 ambulatory HERBER NNAMDI Not Available Start: 05-25-2024 End: 05-25-2024 flow sheet Herber Nnamdi DO Work Phone: [facility] Comment on above: 34 weeks gestation o f ; Third trimester Start: 05-25-2024 End: 05-25-2024 Bamboo flowsheet Herber Nnamdi DO Work Phone: [facility] Start: 05-25-2024 End: 05-25-2024 Bamboo flowsheet Herber Nnamdi DO Work Phone: [facility] Start: 05-24-2024 End: 05-24-2024 Clinisync Result Encounter Herber Nnamdi DO Work Phone: [facility] External Department Unsolicited Start: 05-24-2024 End: 05-24-2024 Clinisync Result Encounter Herber Nnamdi DO Work Phone: [facility] External Department Unsolicited Start: 05-09-2024 End: 05-09-2024 flow sheet Tori SHIRLEY Work Phone: [facility] Comment on above: 32 weeks gestation o f ; Third trimester Start: 05-09-2024 End: 05-09-2024 ambulatory TORI PEPE Not Available Start: 05-09-2024 End: 05-09-2024 Bamboo flowsheet Tori Pepe PA Work Phone: [facility] Start: 05-09-2024 End: 05-09-2024 Bamboo flowsheet Tori Pepe PA Work Phone: [facility] Start: 05-03-2024 End: 05-03-2024 Office outpatient visit 25 minutes Tori Martinez [employer] Work Phone: [facility] Comment on above: Need for follow-up c are after discharge (Primary Dx) Start: 05-03-2024 End: 05-03-2024 ambulatory TORI MARTINEZ Not Available Start: 05-03-2024 End: 05-03-2024 Bamboo flowsheet Tori Martinez [employer] Work Phone: [facility] Start: 05-03-2024 End: 05-03-2024 Bamboo flowsheet Tori Martinez [employer] Work Phone: [facility] Start: 04-21-2024 [...] Bamboo flowsheet Tori Pepe PA Work Phone: [facility] Start: 04-13-2024 End: 04-13-2024 Bamboo flowsheet Tori Pepe PA Work Phone: [facility] Start: 04-06-2024 End: 04-06-2024 ambulatory TORI PEPE Not Available Start: 04-06-2024 End: 04-06-2024 flow sheet Tori SHIRLEY Work Phone: [facility] Comment on above: Second trimester pre gnancy; 27 weeks gestation of Start: 04-06-2024 End: 04-06-2024 Bamboo flowsheet Tori SHIRLEY Work Phone: [facility] Start: 04-06-2024 End: 04-06-2024 Bamboo flowsheet Tori Pepe PA Work Phone: [facility] Start: 03-19-2024 End: 03-19-2024 Clinisync Result Encounter Tori SHIRLEY Work Phone: [facility] External Department Unsolicited Start: 03-19-2024 End: 03-19-2024 Clinisync Result Encounter Tori SHIRLEY Work Phone: [facility] External Department Unsolicited Start: 03-09-2024 End: 03-09-2024 ambulatory TORI PEPE Not Available Start: 03-09-2024 End: 03-09-2024 flow sheet Tori Pepe PA Work Phone: [facility] Comment on above: Encounter for follow -up ultrasound of anatomy; Second trimester ; 23 weeks gestation of ; Hypothyroidism, unspecified type (CMS/HCC); Diabetes mellitus screening; Anxiety, generalized (CMS/HCC) Start: 03-09-2024 End: 03-09-2024 Bamboo flowsheet Tori SHIRLEY Work Phone: [facility] Start: 03-09-2024 End: 03-09-2024 [...] encounter procedure Herber Nnamdi DO Work Phone: [facility] Start: 02-10-2024 End: 02-10-2024 Periodic preventive med est patient 18-39 yrs Herber Nnamdi DO Work Phone: [facility] Comment on above: Well woman [...] flow sheet Herber Nnamdi DO Work Phone: [facility] Comment on above: Second trimester pre gnancy; Other specified hypothyroidism (CMS/HCC); Moderate asthma, unspecified whether complicated, unspecified whether persistent (CMS/HCC) Start: 01-11-2024 End: 01-11-2024 ambulatory HERBER NNAMDI Not Available Start: 01-11-2024 End: 01-11-2024 Bamboo flowsheet Herber Nnamdi DO Work Phone: [facility] Start: 01-11-2024 End: 01-11-2024 Bamboo flowsheet Herber Nnamdi DO Work Phone: [facility] Start: 12-11-2023 End: 12-11-2023 ambulatory HERBER NNAMDI Not Available Start: 10-16-2023 End: 10-16-2023 ambulatory TORI WARCHOL Not Available Start: 07-17-2023 End: 07-17-2023 ambulatory TORI WARCHOL Not Available Start: 07-13-2023 End: 07-13-2023 Patient encounter procedure MD Carlos Alberto Coleman Work Phone: [facility] Start: 07-13-2023 End: 07-13-2023 ambulatory MD Carlos Alberto Coleman Work Phone: [facility] Work Phone: Start: 07-13-2023 End: 07-13-2023 ambulatory SOFIE GR Not Available Start: 06-02-2023 Refill Tori Martinez [employer] Work Phone: [facility] Comment on above: Attention deficit hy peractivity disorder (ADHD), combined type ([facility]) Start: 07-04-2022 End: 07-14-2022 ambulatory ÁNGEL RESENDIZT Facility:[facility] Start: 07-01-2022 End: 07-01-2022 ambulatory ÁNGEL RESENDIZT Facility:[facility] Start: 06-23-2022 End: 06-25-2022 Evaluation and [...] without abnormal findings DR ZEN BREWER . [facility] Start: 01-17-2022 End: 01-17-[address] ZEN BREWER . Facility:[facility] Start: 01-17-2022 End: 01-17-2022 Encounter for gynecological examination (general) (routine) without abnormal findings DR ZEN BREWER . Facility:[facility] Start: 01-04-2022 End: 01-05-2022 ambulatory ÁNGEL SINHA Facility:[facility] Start: 12-14-2021 End: 12-15-[address] ZEN BREWER . Facility:[facility] Start: 11-26-2021 End: 11-27-2021 ambulatory ÁNGEL SINHA Facility:[facility] Start: 11-24-2018 End: 11-24-2018 Patient encounter procedure [facility] Start: 11-10-2018 End: 11-15-2018 Patient encounter procedure [facility] Procedures Date Procedure Procedure Detail [...] Work Phone: Start: 02-10-2024 IGP,APTIMA HPV,AGE GDLN [facility] DO Work Phone: Start: 02-10-2024 Microscopic observat ion [Identifier] in Cervix by Cyto stain Tori SHIRLEY Work Phone: Start: 02-10-2024 Cytp cerv/vag auto t hin layer prep mnl screen Tori SHIRLEY Work Phone: Start: 01-22-2024 ALL THYROID STIM HORMONE [facility] DO Work Phone: Start: 01-11-2024 Urnls dip stick/tabl et rgnt non-auto w/o micrscp [facility] DO Work Phone: Start: 07-13-2023 Respiratory [...] 2024 Influenza vaccination Influenza Vacc ine (#1) [facility] Comment on above: Postponed from 12/26 (Patient Refused) Start: 05-30-2024 End: 05-30-2024 Patient encounter procedure 05/30/2024 3:00 PM EST Routine [facility] [address] [facility] [place] [phone] Herber Coto, DO [address] [place] [address] [facility] Start: 05-25-2024 End: 05-25-2024 Patient encounter procedure 05/25/2024 2:10 PM EST Routine [facility] [address] [place] [place] [phone] Herber Coto, DO [address] [place] [address] [facility] Start: 05-09-2024 End: 05-09-2024 Patient encounter procedure [facility] Comment on above: Arrived Start: 05-03-2024 End: 05-03-2024 Patient encounter procedure 05/03/2024 4:40 PM EST Office Visit [facility] [address] [place] [address] Tori Martinez, [employer] [address] [place] [address] Need for follow-up care after discharge (Primary Dx) [facility] Comment on above: Need for follow-up c are after discharge (Primary Dx) Start: 04-21-2024 End: 04-21-2024 Patient encounter procedure 04/21/2024 8:30 AM EST Routine [facility] [address] [place] [place] [phone] Herber Coto DO [address] [place], [place] [id number] [facility] Start: 04-13-2024 End: 04-13-2024 [...] PM EST Routine [facility] [address] [place] [place] [address] Tori Pepe PA [address] [place], [place] [id number] [facility] Start: 04-03-2024 End: 03-04-2025 US for US OB INCOMPLETE ANATOMY Imaging Routine Encounter for follow-up ultrasound of anatomy Expected: 04/03/2024 (Approximate), Expires: 03/04/2025 [facility] Work Phone: Comment on above: Expected: 04/03/2024 (Approximate), Expires: 03/04/2025 Start: 03-09-2024 End: 03-09-2024 Patient encounter procedure 03/09/2024 3:50 PM EST Routine [facility] [address] [place] [phone] Tori Pepe PA [address] [place] [address] [facility] Start: 03-09-2024 End: 03-09-2025 CBC panel - Blood by Automated count CBC Lab Routine Diabetes mellitus screening Expected: 03/09/2024 (Approximate), Expires: 03/09/2025 [facility] Comment on above: Expected: 03/09/2024 (Approximate), Expires: 03/09/2025 Start: 03-09-2024 End: 03-09-2025 Measurement of glucose 1 hour after glucose challenge for glucose tolerance test Glucose tolerance, 1 hour Lab Routine Diabetes mellitus screening Expected: 03/09/2024 (Approximate), Expires: 03/09/2025 [facility] Comment on above: Expected: 03/09/2024 (Approximate), Expires: 03/09/2025 Start: 03-09-2024 End: 03-09-2025 US for US OB SCAN FOR GROWTH Imaging Routine Hypothyroidism, unspecified type (CMS/HCC) Expected: 03/09/2024 (Approximate), Expires: 03/09/2025 [facility] Comment on above: Expected: 03/09/2024 (Approximate), Expires: 03/09/2025 Start: 02-10-2024 End: 02-09-2025 Alpha fetoprotein, maternal Alpha fetoprotein, maternal Lab Routine Second trimester 19 weeks gestation of Expected: 02/10/2024 (Approximate), Expires: 02/09/2025 [facility] Comment on above: Expected: 02/10/2024 (Approximate), Expires: 02/09/2025 Start: 02-10-2024 End: 02-09-2025 US for US OB ANATOMY SINGLE W US OB CERVICAL LENGTH Imaging Routine Screening, , for anatomic survey Expected: 02/10/2024 (Approximate), Expires: 02/09/2025 [facility] Comment on above: Expected: 02/10/2024 (Approximate), Expires: 02/09/2025 Start: 02-10-2024 End: 02-10-2024 Patient encounter procedure 02/10/2024 1:50 PM EDT Routine [facility] [address] [place] [phone] Herber Coto, DO [address] [place], [place] [phone] [facility] Start: 01-11-2024 End: 01-11-2024 Patient encounter procedure 01/11/2024 3:50 PM EDT Routine [facility] [address] [place] [phone] Herber Coto, DO [address] [place], [place] [phone] Arrived [facility] Comment on above: Arrived Start: 12-27-2023 Influenza vaccination Influenza Vacc ine (#1) [facility] Start: 10-25-2023 Influenza vaccination Influenza Vacc ine (#1) [facility] Comment on above: Postponed from 12/26 (Patient Refused) Start: 10-25-2023 Screening for malign ant neoplasm of cervix [facility] Start: 07-17-2023 End: 07-17-2023 Patient encounter procedure 07/17/2023 8:00 AM EDT Office Visit [facility] [address] [place] [phone] Tori Martinez, HERRERA [address] [place] [address] [facility] Start: 2014 Screening for malign ant neoplasm of cervix Pap Smear [facility] CHLAMYDIA TRACHOMATI S (GENITO/STI) CHLAMYDIA TRACHOMATIS (GENITO/STI) Lab Routine Screen for STD (sexually transmitted disease) Vaginal discharge Ordered: 02/10/2024 [facility] Comment on above: Ordered: 02/10/2024 Cytology Cervical or vaginal smear or scraping study Pap Smear Pathology and Cytology Routine Well woman exam with routine gynecological exam Ordered: 02/10/2024 [facility] Comment on above: Ordered: 02/10/2024 Human papilloma viru s DNA [Presence] in Unspecified specimen by Probe with amplification HPV DNA probe, amplified Microbiology Routine Well woman exam with routine gynecological exam Ordered: 02/10/2024 [facility] Comment on above: Ordered: 02/10/2024 Neisseria gonorrhoea e DNA [Presence] in Unspecified specimen by JUAN with probe detection Neisseria gonorrhea DNA probe, direct Lab Routine Screen for STD (sexually transmitted disease) Vaginal discharge Ordered: 02/10/2024 [facility] Comment on above: Ordered: 02/10/2024 SURESWAB(R) ADVANCED VAGINITIS PLUS, TMA SURESWAB(R) ADVANCED VAGINITIS PLUS, TMA Pathology and Cytology Routine Screen for STD (sexually transmitted disease) Vaginal discharge Ordered: 02/10/2024 [facility] Work Phone: Comment on above: Ordered: 02/10/2024 Thyrotropin [Units/volume] in Serum or Plasma TSH Lab Routine Other specified hypothyroidism (CMS/HCC) Ordered: 01/11/2024 [facility] Work Phone: Comment on above: Ordered: 01/11/2024 Thyrotropin [Units/volume] in Serum or Plasma TSH Lab Routine Hypothyroidism, unspecified type (CMS/HCC) Ordered: 04/13/2024 [facility] Comment on above: Ordered: 04/13/2024 Immunizations Immunization Date Immunization Notes Care Provider Byron carlson 05-05-2015 tetanus toxoid, redu catherine diphtheria toxoid, and acellular pertussis vaccine, adsorbed Tori Warchol [employer] Work Phone: [facility] 02-14-2009 influenza, seasonal, injectable Tori Warchol [employer] Work Phone: [facility] 02-14-2009 influenza virus vacc ine, unspecified formulation Tori Warchol [employer] Work Phone: [facility] 12-12-2005 hepatitis A vaccine, unspecified formulation Tori Warchol [employer] Work Phone: [facility] 12-12-2005 tetanus toxoid, redu catherine diphtheria toxoid, and acellular pertussis vaccine, adsorbed Tori Warchol [employer] Work Phone: [facility] 11-19-1998 diphtheria, tetanus toxoids and acellular pertussis vaccine, unspecified formulation Tori Warchol [employer] Work Phone: [facility] 11-19-1998 measles, mumps and rubella virus vaccine Tori Warchol [employer] Work Phone: [facility] 11-19-1998 trivalent poliovirus vaccine, live, oral Tori Warchol [employer] Work Phone: [facility] 09-14-1995 diphtheria, tetanus toxoids and acellular pertussis vaccine, unspecified formulation Tori Warchol [employer] Work Phone: [facility] 09-14-1995 haemophilus influenz ae type b vaccine, conjugate unspecified formulation Tori Warchol [employer] Work Phone: [facility] 11-20-1994 DTP-Haemophilus influenzae type b conjugate vaccine Tori Warchol [employer] Work Phone: [facility] 11-20-1994 hepatitis B vaccine, pediatric or pediatric/adolescent dosage Tori Warchol [employer] Work Phone: [facility] 11-20-1994 measles, mumps and rubella virus vaccine Tori Warchol [employer] Work Phone: [facility] 11-20-1994 trivalent poliovirus vaccine, live, oral Tori Warchol [employer] Work Phone: [facility] 09-18-1994 DTP-Haemophilus influenzae type b conjugate vaccine Tori Warchol [employer] Work Phone: [facility] 09-18-1994 hepatitis B vaccine, pediatric or pediatric/adolescent dosage Tori Warchol [employer] Work Phone: [facility] 09-18-1994 trivalent poliovirus vaccine, live, oral Tori Gomezchol [employer] Work Phone: [facility] 1993 diphtheria, tetanus toxoids and pertussis vaccine Tori Jasonchol [employer] Work Phone: [facility] 1993 haemophilus influenz ae type b vaccine, conjugate unspecified formulation Tori Jasonchol [employer] Work Phone: [facility] 1993 hepatitis B vaccine, pediatric or pediatric/adolescent dosage Tori Jasonchol [employer] Work Phone: [facility] 1993 trivalent poliovirus vaccine, live, oral Tori Jasonchol [employer] Work Phone: [facility] Payers Date Payer Category Payer Self-pay [id number] 2023 Medicaid [id number] 2022 Blue Cross Blue Shield [id number] 2022 Unknown BCBS BCBS xxxxxx [id number] 2022-Present [phone] [address] [place] [address] [id number] 2017 Private Health Insurance [id number] 1993 Unknown [id number] 2.16.840.1.258078.3.579.2.1 76 1993 Unknown [id number] 2.16.840.1.852822.3.579.2.1 76 1993 Unknown [id number] 2.16.840.1.231632.3.579.2.5 93 1993 Unknown [id number] 2.16.840.1.283139.3.579.2.5 93 1993 Unknown [id number] 2.16.840.1.916135.3.579.2.5 93 1993 Unknown [id number] 2.16.840.1.025822.3.579.2.5 93 1993 Unknown [id number] 2.16.840.1.280249.3.579.2.5 93 1993 Unknown [id number] 2.16.840.1.249236.3.579.2.5 93 1993 Unknown [id number] 2.16.840.1.255776.3.579.2.5 93 1993 Unknown [id number] 2.16.840.1.466655.3.579.2.5 93 1993 Unknown [id number] 2.16.840.1.645701.3.579.2.5 93 1993 Unknown [id number] 2.16.840.1.294130.3.579.2.5 93 1993 Unknown [id number] 2.16.840.1.505014.3.579.2.5 93 1993 Unknown [id number] 2.16.840.1.488192.3.579.2.5 93 1993 Unknown [id number] 2.16.840.1.919444.3.579.2.5 93 1993 Unknown [id number] 2.16.840.1.889750.3.579.2.5 93 1993 Unknown [id number] 2.16.840.1.592966.3.579.2.1 259 1993 Unknown [id number] 2.16.840.1.135612.3.579.2.1 259 1993 Unknown [id number] 2.16.840.1.111511.3.579.2.1 259 1993 Unknown [id number] 2.16.840.1.303640.3.579.2.1 259 1993 Unknown [id number] 2.16.840.1.230294.3.579.2.1 259 1993 Unknown [id number] 2.16.840.1.976542.3.579.2.1 259 1993 Unknown [id number] 2.16.840.1.240012.3.579.2.1 259 1993 Unknown [id number] 2.16.840.1.955380.3.579.2.1 259 1993 Unknown [id number] 2.16.840.1.982065.3.579.2.1 259 1993 Unknown [id number] 2.16.840.1.416089.3.579.2.1 259 1993 Unknown [id number] 2.16.840.1.196470.3.579.2.1 259 1993 Unknown [id number] 2.16.840.1.544116.3.579.2.1 259 1993 Unknown [id number] 2.16.840.1.687846.3.579.2.1 259 1959 Self-pay [id number] 1959 Unknown [id number] 1959 Unknown [id number] 1959 Unknown [id number] Unknown [id number] 2.16.840.1.216416.3.579.2.5 93 Unknown HCAP/HFA/FAP Active [id number] Unknown [id number] 2.16.840.1.248739.3.579.2.5 31 Social History Date Type Detail Facility Start: 08-27-2016 End: 09-25-2022 Tobacco smoking status AKIS Never smoked tobacco [facility] care Start: 09-25-2022 Tobacco use and exposure Smoke less tobacco non-user [facility] Healthcare Start: 04-16-2023 End: 04-13-2024 Alcohol intake Current drinker of alcohol (finding) [facility] Start: 04-16-2023 End: 05-03-2024 Alcohol intake [...] Gender identity Identifies as female gender (finding) [facility] Start: 10-08-2023 [facility] Start: 05-03-2024 End: 05-25-2024 Alcoholic beverage intake Ex-drinker (finding) [facility] Medical Equipment Procedure Code Equipment Code Equipment Origin al Text Equipment Identifier Dates 1 strip by In Vi tro route Daily Use in the morning prior to breakfast, 1 hour after each meal for a total of 4times daily. [id number] Start: 03-21-2024 End: 04-20-2024 1 each by In Vit ro route Daily Use to check FSBS four times daily [id number] Start: 03-21-2024 End: 04-20-2024 Clinical Notes 06-02-2023 [...] esophagitis 09/01/2022 Moderate persistent asthma without complication ([facility]) 09/01/2022 Hypothyroidism, unspecified ([facility]) 03/02/2020 Moderate asthma ([facility]) 01/11/2024 30 weeks gestation of 04/21/2024 Third trimester 04/21/2024 Resolved Ambulatory Problems Diagnosis Date Noted Acquired hypothyroidism ([facility]) 09/01/2022 Allergic rhinitis 09/01/2022 Amenorrhea 09/01/2022 Asthma without status asthmaticus ([facility]) 09/01/2022 Attention deficit hyperactivity disorder ([facility]) 09/01/2022 Asthma affecting , antepartum ([facility]) 09/01/2022 Binge eating disorder 09/01/2022 Difficulty [...] Acid reflux ADHD (attention deficit hyperactivity disorder) ([facility]/HCC) Asthma ([facility]/HCC) GERD (gastroesophageal reflux disease) Hypothyroid (CMS/HCC) Lactose intolerance Marijuana use Migraine (CMS/HCC) Mild persistent asthma, uncomplicated ([facility]) Supervision of normal Thyroid disease ([facility]) HISTORY PAST MEDICAL HISTORY SOCIAL HISTORY Past Medical History: Diagnosis Date Acid reflux ADHD (attention deficit hyperactivity disorder) ([facility]/HCC) Asthma (CMS/HCC) Asthma affecting , antepartum ([facility]) GERD (gastroesophageal reflux disease) Hypothyroid ([facility]) Lactose intolerance Marijuana use Migraine ([facility]) Mild persistent asthma, uncomplicated ([facility]) MTHFR mutation Seasonal allergies Supervision of normal Thyroid disease ([facility]) Social History Tobacco Use Smoking status: [...] 2008 Plica band removal, left knee arthroscopy [place] BREAST REDUCTION 10/2018 TONSILLECTOMY 1999 REVIEW OF SYSTEMS Review of Systems: Review [...] nursing note reviewed. Exam conducted with a municipal court judge present. Vitals: Estimated body mass index is [...] Herber Coto DO documented in this encounter [facility] 05-09-2024 History of Presen t illness Narrative [...] to check FSBS. Blood Glucose Monitoring Suppl (D-[employer] Glucometer) w/Device kit 1 kit, Does not [...] persistent asthma without complication ([facility]) 09/01/2022 Hypothyroidism, unspecified ([facility]) 03/02/2020 Moderate asthma ([facility]) 01/11/2024 30 weeks gestation of 04/21/2024 Third trimester 04/21/2024 Resolved Ambulatory Problems Diagnosis Date Noted Acquired hypothyroidism ([facility]) 09/01/2022 Allergic rhinitis 09/01/2022 Amenorrhea 09/01/2022 Asthma without status asthmaticus ([facility]) 09/01/2022 Attention deficit hyperactivity disorder ([facility]) 09/01/2022 Asthma affecting , antepartum ([facility]) 09/01/2022 Binge eating disorder 09/01/2022 Difficulty concentrating 09/01/2022 Irregular menstrual cycle 09/01/2022 Left sided sciatica 09/01/2022 Insomnia 09/01/2022 Migraines ([facility]) 09/01/2022 Metallic taste 09/01/2022 Mild persistent asthma without complication ([facility]) 09/01/2022 MTHFR mutation 09/01/2022 Nondependent cannabis abuse 09/01/2022 Other chronic pain 09/01/2022 Seasonal allergies 09/01/2022 Skin sensation disturbance 09/01/2022 Transitory mood disturbance 09/01/2022 Verruca plantaris 09/01/2022 Past Medical History: Diagnosis Date Acid reflux ADHD (attention deficit hyperactivity disorder) ([facility]) Asthma ([facility]) GERD (gastroesophageal reflux disease) Hypothyroid ([facility]) Lactose intolerance Marijuana use Migraine ([facility]) Mild persistent asthma, uncomplicated ([facility]) Supervision of normal Thyroid disease ([facility]) HISTORY PAST MEDICAL HISTORY SOCIAL HISTORY Past Medical History: Diagnosis Date Acid reflux ADHD (attention deficit hyperactivity disorder) ([facility] Asthma ([facility]) Asthma affecting , antepartum ([facility]) GERD (gastroesophageal reflux disease) Hypothyroid ([facility]) Lactose intolerance Marijuana use Migraine ([facility]) Mild persistent asthma, uncomplicated ([facility]) MTHFR mutation Seasonal allergies Supervision of normal Thyroid disease ([facility]) Social History Tobacco Use Smoking status: Never [...] 2008 Plica band removal, left knee arthroscopy [place] BREAST REDUCTION 10/2018 TONSILLECTOMY 1998 REVIEW OF [...] of: FERN Luis documented in this encounter [facility] 05-03-2024 History of Presen t illness Narrative [...] each, Rfl: 3 Blood Glucose Monitoring Suppl (D-[employer] Glucometer) w/Device kit, 1 kit Daily Use [...] not improve . documented in this encounter [facility] 05-03-2024 Instructions Tori Martinez NP - 05/03/2024 4:40 PM EST PATIENT EDUCATION: ER follow-up The patient was seen today in follow-up of recent hospital ER/UC visit. All available records/labs/diagnostics were reviewed and discussed with the patient. ER/UC discharge meds were reviewed. Any changes to plan are noted above. documented in this encounter [facility] 04-21-2024 History of Presen t illness Narrative [...] esophagitis 09/01/2022 Moderate persistent asthma without complication ([facility]) 09/01/2022 Hypothyroidism, unspecified ([facility]) 03/02/2020 Moderate asthma ([facility]) 01/11/2024 30 weeks gestation of 04/21/2024 Third trimester 04/21/2024 Resolved Ambulatory Problems Diagnosis Date Noted Acquired hypothyroidism ([facility]) 09/01/2022 Allergic rhinitis 09/01/2022 Amenorrhea 09/01/2022 Asthma without status asthmaticus ([facility]) 09/01/2022 Attention deficit hyperactivity disorder ([facility]) 09/01/2022 Asthma affecting , antepartum ([facility]) 09/01/2022 Binge eating disorder 09/01/2022 Difficulty concentrating 09/01/2022 Irregular menstrual cycle 09/01/2022 Left sided sciatica 09/01/2022 Insomnia 09/01/2022 Migraines ([facility]) 09/01/2022 Metallic taste 09/01/2022 Mild persistent asthma without complication ([facility]) 09/01/2022 MTHFR mutation 09/01/2022 Nondependent cannabis abuse 09/01/2022 Other chronic pain 09/01/2022 Seasonal allergies 09/01/2022 Skin sensation disturbance 09/01/2022 Transitory mood disturbance 09/01/2022 Verruca plantaris 09/01/2022 Past Medical History: Diagnosis Date Acid reflux ADHD (attention deficit hyperactivity disorder) ([facility]) Asthma ([facility]) GERD (gastroesophageal reflux disease) Hypothyroid (CMS/HCC) Lactose intolerance Marijuana use Migraine (CMS/HCC) Mild persistent asthma, uncomplicated ([facility]/HCC) Supervision of normal Thyroid disease ([facility]) HISTORY PAST MEDICAL HISTORY SOCIAL HISTORY Past Medical History: Diagnosis Date Acid reflux ADHD (attention deficit hyperactivity disorder) (CMS/HCC) Asthma ([facility]/HCC) Asthma affecting , antepartum ([facility]/HCC) GERD (gastroesophageal reflux disease) Hypothyroid (CMS/HCC) Lactose intolerance Marijuana use Migraine ([facility]/HCC) Mild persistent asthma, uncomplicated ([facility]) MTHFR mutation Seasonal allergies Supervision of normal Thyroid disease ([facility]) Social History Tobacco Use Smoking status: [...] 2008 Plica band removal, left knee arthroscopy [place] BREAST REDUCTION 10/2018 TONSILLECTOMY 1998 REVIEW OF [...] nursing note reviewed. Exam conducted with a municipal court judge present. Vitals: Estimated body mass index is [...] Herber Coto DO documented in this encounter [facility] 04-13-2024 History of Presen t illness Narrative [...] esophagitis 09/01/2022 Moderate persistent asthma without complication ([facility]) 09/01/2022 Hypothyroidism, unspecified ([facility]) 03/02/2020 Moderate asthma ([facility]) 01/11/2024 Resolved Ambulatory Problems Diagnosis Date Noted Acquired hypothyroidism ([facility]) 09/01/2022 Allergic rhinitis 09/01/2022 Amenorrhea 09/01/2022 Asthma without status asthmaticus ([facility]) 09/01/2022 Attention deficit hyperactivity disorder ([facility]/HCC) 09/01/2022 Asthma affecting , antepartum ([facility]) 09/01/2022 Binge eating disorder 09/01/2022 Difficulty concentrating 09/01/2022 Irregular menstrual cycle 09/01/2022 Left sided sciatica 09/01/2022 Insomnia 09/01/2022 Migraines ([facility]) 09/01/2022 Metallic taste 09/01/2022 Mild persistent asthma without complication ([facility]) 09/01/2022 MTHFR mutation 09/01/2022 Nondependent cannabis abuse 09/01/2022 Other chronic pain 09/01/2022 Seasonal allergies 09/01/2022 Skin sensation disturbance 09/01/2022 Transitory mood disturbance 09/01/2022 Verruca plantaris 09/01/2022 Past Medical History: Diagnosis Date Acid reflux ADHD (attention deficit hyperactivity disorder) ([facility]) Asthma ([facility]) GERD (gastroesophageal reflux disease) Hypothyroid ([facility]) Lactose intolerance Marijuana use Migraine ([facility]) Mild persistent asthma, uncomplicated ([facility]) Supervision of normal Thyroid disease ([facility]) HISTORY PAST MEDICAL HISTORY SOCIAL HISTORY Past Medical History: Diagnosis Date Acid reflux ADHD (attention deficit hyperactivity disorder) ([facility] Asthma ([facility]) Asthma affecting , antepartum ([facility]) GERD (gastroesophageal reflux disease) Hypothyroid ([facility]) Lactose intolerance Marijuana use Migraine ([facility]) Mild persistent asthma, uncomplicated ([facility]) MTHFR mutation Seasonal allergies Supervision of normal Thyroid disease ([facility]) Social History Tobacco Use Smoking status: Never [...] 2008 Plica band removal, left knee arthroscopy [place] BREAST REDUCTION 10/2018 TONSILLECTOMY 1998 REVIEW OF [...] of: FERN Luis documented in this encounter [facility] 04-06-2024 History of Presen t illness Narrative [...] esophagitis 09/01/2022 Moderate persistent asthma without complication ([facility]) 09/01/2022 Hypothyroidism, unspecified ([facility]) 03/02/2020 Moderate asthma ([facility]) 01/11/2024 Resolved Ambulatory Problems Diagnosis Date Noted Acquired hypothyroidism ([facility]) 09/01/2022 Allergic rhinitis 09/01/2022 Amenorrhea 09/01/2022 Asthma without status asthmaticus ([facility]) 09/01/2022 Attention deficit hyperactivity disorder ([facility]) 09/01/2022 Asthma affecting , antepartum ([facility]) 09/01/2022 Binge eating disorder 09/01/2022 Difficulty [...] Acid reflux ADHD (attention deficit hyperactivity disorder) ([facility]) Asthma ([facility]) GERD (gastroesophageal reflux disease) Hypothyroid ([facility]) Lactose intolerance Marijuana use Migraine ([facility]) Mild persistent asthma, uncomplicated ([facility]) Supervision of normal Thyroid disease ([facility]) HISTORY PAST MEDICAL HISTORY SOCIAL HISTORY Past Medical History: Diagnosis Date Acid reflux ADHD (attention deficit hyperactivity disorder) ([facility]) Asthma ([facility]CC) Asthma affecting , antepartum ([facility]) GERD (gastroesophageal reflux disease) Hypothyroid ([facility]) Lactose intolerance Marijuana use Migraine ([facility]) Mild persistent asthma, uncomplicated ([facility]) MTHFR mutation Seasonal allergies Supervision of normal Thyroid disease ([facility]) Social History Tobacco Use Smoking status: [...] 2008 Plica band removal, left knee arthroscopy [place] BREAST REDUCTION 10/2018 TONSILLECTOMY 1998 REVIEW OF [...] of: FERN Luis documented in this encounter [facility] 03-09-2024 History of Presen t illness Narrative [...] persistent asthma without complication ([facility]) 09/01/2022 Hypothyroidism, unspecified ([facility]) 03/02/2020 Moderate asthma ([facility]) 01/11/2024 Resolved Ambulatory Problems Diagnosis Date Noted Acquired hypothyroidism ([facility]) 09/01/2022 Allergic rhinitis 09/01/2022 Amenorrhea 09/01/2022 Asthma without status asthmaticus ([facility]) 09/01/2022 Attention deficit hyperactivity disorder ([facility]) 09/01/2022 Asthma affecting , antepartum ([facility]) 09/01/2022 Binge eating disorder 09/01/2022 Difficulty concentrating 09/01/2022 Irregular menstrual cycle 09/01/2022 Left sided sciatica 09/01/2022 Insomnia 09/01/2022 Migraines ([facility]) 09/01/2022 Metallic taste 09/01/2022 Mild persistent asthma without complication ([facility]) 09/01/2022 MTHFR mutation 09/01/2022 Nondependent cannabis abuse 09/01/2022 Other chronic pain 09/01/2022 Seasonal allergies 09/01/2022 Skin sensation disturbance 09/01/2022 Transitory mood disturbance 09/01/2022 Verruca plantaris 09/01/2022 Past Medical History: Diagnosis Date Acid reflux ADHD (attention deficit hyperactivity disorder) ([facility]) Asthma ([facility]) GERD (gastroesophageal reflux disease) Hypothyroid ([facility]) Lactose intolerance Marijuana use Migraine ([facility]) Mild persistent asthma, uncomplicated ([facility]) Supervision of normal Thyroid disease ([facility]) HISTORY PAST MEDICAL HISTORY SOCIAL HISTORY Past Medical History: Diagnosis Date Acid reflux ADHD (attention deficit hyperactivity disorder) ([facility]) Asthma ([facility]) Asthma affecting , antepartum ([facility]) GERD (gastroesophageal reflux disease) Hypothyroid ([facility]) Lactose intolerance Marijuana use Migraine ([facility]) Mild persistent asthma, uncomplicated ([facility]) MTHFR mutation Seasonal allergies Supervision of normal Thyroid disease ([facility]) Social History Tobacco Use Smoking status: Never [...] 2008 Plica band removal, left knee arthroscopy [place] BREAST REDUCTION 10/2018 TONSILLECTOMY 1998 REVIEW OF [...] of: FERN Luis documented in this encounter [facility] 03-09-2024 Miscellaneous Notes Addended by: NIALL CONSTANTINO on: 03/10/2024 09:01 AM Modules accepted: Orders documented in this encounter [facility] 03-09-2024 Note Addended by: NIALL CLEVELAND on: 03/10/2024 09:01 AM Modules accepted: Orders [facility] 03-09-2024 Note Addended by: NIALL CLEVELAND on: 03/10/2024 09:01 AM Modules accepted: Orders [facility] 02-10-2024 History of Presen t illness Narrative [...] esophagitis 09/01/2022 Moderate persistent asthma without complication ([facility]) 09/01/2022 Hypothyroidism, unspecified ([facility]) 03/02/2020 Moderate asthma ([facility]) 01/11/2024 Resolved Ambulatory Problems Diagnosis Date Noted Acquired hypothyroidism ([facility]) 09/01/2022 Allergic rhinitis 09/01/2022 Amenorrhea 09/01/2022 Asthma without status asthmaticus ([facility]) 09/01/2022 Attention deficit hyperactivity disorder ([facility]) 09/01/2022 Asthma affecting , antepartum ([facility]) 09/01/2022 Binge eating disorder 09/01/2022 Difficulty concentrating 09/01/2022 Irregular menstrual cycle 09/01/2022 Left sided sciatica 09/01/2022 Insomnia 09/01/2022 Migraines ([facility]) 09/01/2022 Metallic taste 09/01/2022 Mild persistent asthma without complication ([facility]) 09/01/2022 MTHFR mutation 09/01/2022 Nondependent cannabis abuse 09/01/2022 Other chronic pain 09/01/2022 Seasonal allergies 09/01/2022 Skin sensation disturbance 09/01/2022 Transitory mood disturbance 09/01/2022 Verruca plantaris 09/01/2022 Past Medical History: Diagnosis Date Acid reflux ADHD (attention deficit hyperactivity disorder) ([facility]) Asthma ([facility]) GERD (gastroesophageal reflux disease) Hypothyroid ([facility]) Lactose intolerance Marijuana use Migraine ([facility]) Mild persistent asthma, uncomplicated ([facility]) Supervision of normal Thyroid disease ([facility]) HISTORY PAST MEDICAL HISTORY SOCIAL HISTORY Past Medical History: Diagnosis Date Acid reflux ADHD (attention deficit hyperactivity disorder) ([facility]) Asthma ([facility]) Asthma affecting , antepartum ([facility]) GERD (gastroesophageal reflux disease) Hypothyroid ([facility]) Lactose intolerance Marijuana use Migraine ([facility]) Mild persistent asthma, uncomplicated ([facility]) MTHFR mutation Seasonal allergies Supervision of normal Thyroid disease ([facility]) Social History Tobacco Use Smoking status: Never [...] 2008 Plica band removal, left knee arthroscopy [place] BREAST REDUCTION 10/2018 TONSILLECTOMY 1998 REVIEW OF [...] Herber Coto DO documented in this encounter [facility] 01-11-2024 History of Presen t illness Narrative [...] persistent asthma without complication ([facility]) 09/01/2022 Hypothyroidism, unspecified ([facility]) 03/02/2020 Resolved Ambulatory Problems Diagnosis Date Noted Acquired hypothyroidism ([facility]) 09/01/2022 Allergic rhinitis 09/01/2022 Amenorrhea 09/01/2022 Asthma without status asthmaticus ([facility]) 09/01/2022 Attention deficit hyperactivity disorder ([facility]) 09/01/2022 Asthma affecting , antepartum ([facility]) 09/01/2022 Binge eating disorder ([facility]) 09/01/2022 Difficulty concentrating 09/01/2022 Irregular menstrual cycle 09/01/2022 Left sided sciatica 09/01/2022 Insomnia 09/01/2022 Migraines ([facility]) 09/01/2022 Metallic taste 09/01/2022 Mild persistent asthma without complication ([facility]) 09/01/2022 MTHFR mutation 09/01/2022 Nondependent cannabis abuse 09/01/2022 Other chronic pain 09/01/2022 Seasonal allergies 09/01/2022 Skin sensation disturbance 09/01/2022 Transitory mood disturbance 09/01/2022 Verruca plantaris 09/01/2022 Past Medical History: Diagnosis Date Acid reflux ADHD (attention deficit hyperactivity disorder) ([facility]) Asthma ([facility]) GERD (gastroesophageal reflux disease) Hypothyroid ([facility]) Lactose intolerance Marijuana use Migraine ([facility]) Mild persistent asthma, uncomplicated ([facility]) Supervision of normal Thyroid disease ([facility]) HISTORY PAST MEDICAL HISTORY SOCIAL HISTORY Past Medical History: Diagnosis Date Acid reflux ADHD (attention deficit hyperactivity disorder) ([facility]) Asthma ([facility]) Asthma affecting , antepartum ([facility]) GERD (gastroesophageal reflux disease) Hypothyroid ([facility]) Lactose intolerance Marijuana use Migraine ([facility]) Mild persistent asthma, uncomplicated ([facility]) MTHFR mutation Seasonal allergies Supervision of normal Thyroid disease ([facility]) Social History Tobacco Use Smoking status: [...] 2008 Plica band removal, left knee arthroscopy [place] BREAST REDUCTION 10/2018 TONSILLECTOMY 1998 REVIEW OF [...] nursing note reviewed. Exam conducted with a municipal court judge present. Vitals: Estimated body mass index is [...] undercooked meat, and stay away from [facility]. Patient has been consulted regarding any [...] done she will reach out to office. [employer]er [employer]enter will be notified at time of delivery [...] . Informed patient since she sees a Fiscal Services Manager to schedule appointment to make sure asthma is controlled during . Patient is currently taking Crowdz[employer] Chewable kids vitamins. Patient is taking 2 [...] Herber Coto DO documented in this encounter [facility] 06-04-2023 Telephone encount er Note Sent [facility] 06-04-2023 Miscellaneous Notes Formattin g of this note might be different from the original. Sent Patient requesting refill/[place] documented in this encounter [facility] 06-02-2023 Telephone encount er Note Patient requesting refill/[place] [facility] Evaluation note Diagnosis Attention deficit hyperactivity disorder (ADHD), combined type (CMS/HCC) documented in this [facility] noteNo assessment information available[facility] Work Phone: Evaluation note* Diagnosis Well [...] section and content) DATE CREATED AUTHOR 11/18/2018 [facility] DATE CREATED AUTHOR AUTHOR'S ORGANIZ ATION 11/26/2018 [facility] DATE CREATED AUTHOR AUTHOR'S ORGANIZ ATION 09/09/2022 [facility]in DATE CREATED AUTHOR AUTHOR'S ORGANIZ ATION 03/16/2024 [facility] DATE CREATED AUTHOR AUTHOR'S ORGANIZ ATION 05/27/2024 [facility] dical Specialists EPIC Reason for Visit (unrecogniz ed section and content) Reason Onset Date Comments Med Refill 06/02/2023 Reason Comments Routine Visit Care Teams (unrecognized sec tion and content) Farm Manager Relationship Specialty Start Date End Date Carlos Alberto Coleman MD [address] [place] [address] PCP - General Family Medicine 09/24/22 Tori Martinez NP [address] [place] [address] Nurse Practitioner Family Medicine 09/24/22 Sofie Gr NP [address] [place] [address] Nurse Practitioner Pulmonary Disease 04/14/23 Team Status: Active Member Role Status Dates Carlos Alberto Coleman MD Primary Care Provider Active Team Status: Inactive Member Role Status Dates Carlos Alberto Coleman MD Primary Care Provider Active S tart: July 13, 2023 End: July 13, 2023 Sofie Gr NP-C Attending Provider Active Start: July 13, 2023 End: July 13, 2023 Farm Manager Relationship Specialty Start Date End Date Carlos Alberto Coleman MD [address] [place] [address] PCP - General Family Medicine 09/24/22 Tori Martinez NP [address] [place] [address] PCP - [employer] 05/28/23 Tori Martinez NP [address] [place] [address] Nurse Practitioner Family Medicine 09/24/22 Sofie Gr NP [address] [place] [address] Nurse Practitioner Pulmonary Disease 04/14/23 Farm Manager Relationship Specialty Start Date End Date Carlos Alberto Coleman MD [address] [place] [address] PCP - General Family Medicine 09/24/22 Tori Martinez NP [address] [place] [address] PCP - [employer] 05/28/23 Tori Martinez NP [address] [place] [address] Nurse Practitioner Family Medicine 09/24/22 Sofie Gr NP [address] [place] [address] Nurse Practitioner Pulmonary Disease 04/14/23 Farm Manager Relationship Specialty Start Date End Date Carlos Alberto Coleman MD [address] [place] [phone] PCP - General Family Medicine 09/24/22 Tori Martinez, HERRERA [address] [place] [phone] PCP - [employer] 05/28/23 Tori Martinez NP [address] [place] [phone] Nurse Practitioner Family Medicine 09/24/22 Sofie Gr NP [address] [place] [place] [phone] Nurse Practitioner Pulmonary Disease 04/14/23 Farm Manager Relationship Specialty Start Date End Date Carlos Alberto Coleman MD [address] [place] [phone] PCP - General Family Medicine 09/24/22 Tori Martinez NP [address] [place] [phone] PCP - [employer] 05/28/23 Tori Martinez NP [address] [place] [address] Nurse Practitioner Family Medicine 09/24/22 Sofie Gr NP [address] [place] [phone] Nurse Practitioner Pulmonary Disease 04/14/23 Farm Manager Relationship Specialty Start Date End Date Carlos Alberto Coleman MD [address] [place] [address] PCP - General Family Medicine 09/24/22 Tori Martinez, HERRERA [address] [place] [address] PCP - [employer] 05/28/23 Tori Martinez NP [address] [place] [address] Nurse Practitioner Family Medicine 09/24/22 Sofie Gr NP [address] [place] [phone] Nurse Practitioner Pulmonary Disease 04/14/23 Farm Manager Relationship Specialty Start Date End Date Carlos Alberto Coleman MD [address] [place] [phone] PCP - General Family Medicine 09/24/22 Tori Martinez NP [address] [place] [phone] PCP - [employer] 05/28/23 Tori Martinez NP [address] [place] [address] Nurse Practitioner Family Medicine 09/24/22 Sofie Gr NP [address] [place] [phone] Nurse Practitioner Pulmonary Disease 04/14/23 Farm Manager Relationship Specialty Start Date End Date Carlos Alberto Coleman MD [address] [place] [address] PCP - General Family Medicine 09/24/22 Tori Martinez NP [address] [place] [address] PCP - [employer] 05/28/23 Tori Martinez NP [address] [place] [address] Nurse Practitioner Family Medicine 09/24/22 Sofie Gr NP [address] [place] [phone] Nurse Practitioner Pulmonary Disease 04/14/23 Farm Manager Relationship Specialty Start Date End Date Carlos Alberto Coleman MD [address] [place] [address] PCP - General Family Medicine 09/24/22 Tori Martinez NP [address] [place] [address] PCP - [employer] 05/28/23 Tori Martinez NP [address] [place] [address] Nurse Practitioner Family Medicine 09/24/22 Sofie Gr NP [address] [place] [phone] Nurse Practitioner Pulmonary Disease 04/14/23 Farm Manager Relationship Specialty Start Date End Date Carlos Alberto Coleman MD [address] [place] [address] PCP - General Family Medicine 09/24/22 Tori Martinez NP [address] [place] [address] PCP - [employer] 05/28/23 Tori Martinez NP [address] [place] [address] Nurse Practitioner Family Medicine 09/24/22 Sofie Gr NP [address] [place] [phone] Nurse Practitioner Pulmonary Disease 04/14/23 Farm Manager Relationship Specialty Start Date End Date Carlos Alberto Coleman MD [address] [place] [address] PCP - General Family Medicine 09/24/22 Tori Martinez NP [address] [place] [address] PCP - [employer] 05/28/23 Tori Martinez NP [address] [place] [address] Nurse Practitioner Family Medicine 09/24/22 Sofie Gr NP [address] [place] [phone] Nurse Practitioner Pulmonary Disease 04/14/23 Farm Manager Relationship Specialty Start Date End Date Carlos Alberto Coleman MD [address] [place] [address] PCP - General Family Medicine 09/24/22 Tori Martinez NP [address] [place] [address] PCP - [employer] 05/28/23 Tori Martinez NP [address] [place] [address] Nurse Practitioner Family Medicine 09/24/22 Sofie Gr NP [address] [place] [phone] Nurse Practitioner Pulmonary Disease 04/14/23 Farm Manager Relationship Specialty Start Date End Date Carlos Alberto Coleman MD [address], [facility] PCP - General Family Medicine 09/24/22 Tori Martinez NP [address] [place] [address] PCP - [employer] 05/28/23 Tori Martinez NP [address] [place] [address] Nurse Practitioner Family Medicine 09/24/22 Sofie Gr NP [address] [place] [phone] Nurse Practitioner Pulmonary Disease 04/14/23 Farm Manager Relationship Specialty Start Date End Date Carlos Alberto Coleman MD [address] [place] [address] PCP - General Family Medicine 09/24/22 Tori Martinez NP [address] [place] [address] PCP - [facility] 05/28/23 Tori Martinez NP [address] [place] [address] Nurse Practitioner Family Medicine 09/24/22 Sofie Gr NP [address] [place] [phone] Nurse Practitioner Pulmonary Disease 04/14/23 Farm Manager Relationship Specialty Start Date End Date Carlos Alberto Coleman MD [address] [place] [address] PCP - General [facility] Medicine 09/24/22 Tori Martinez NP [address] [place] [address] PCP - [facility] 05/28/23 Tori Martinez NP [address] [place] [address] Nurse Practitioner Family Medicine 09/24/22 Sofie Gr NP [address] [place] [address] Nurse Practitioner Pulmonary Disease 04/14/23 Goals (unrecognized [...] BE BASED ON THE PRIMARY CLINICAL RECORDS. [employer] [facility]. provides no warranty or guarantee of the accuracy or completeness of information in this document.
--- NOTE | 2024-05-30 17:17 | US_ITS ---
[address] [address] Patient Name: JULIÁN JIMENEZ MRN: [facility]:[id number] date: 1995 Sex: F Assigned Patient Location: [facility] Current Patient Location: Accession/Order Number: [id number] Exam Date: 05/30/2024 17:24 Report Date: 05/31/2024 09:14 At the request of: LACY AVILES Procedure: US OB BPP w non-stress EXAMINATION: US OB BPP w non-stress HISTORY:GESTATIONAL DIABETES MELLITUS [id number] COMPARISON: Ultrasound OB biophysical 05/23/2024 TECHNIQUE: Ultrasound biophysical profile was performed in the radiology department. BREATHING MOVEMENTS: 2 GROSS BODY MOVEMENTS: 2 TONE: 2 QUALITATIVE AMNIOTIC FLUID VOLUME: 2 PRESENTATION: CEPHALIC HEART RATE: 135.68 bpm AMNIOTIC FLUID VOLUME: 21.42 cm GESTATIONAL AGE: 35 weeks 4 days US/US OB BPP w non-stress IMPRESSION: 1. Total biophysical profile score: 8 Electronically authenticated by: YAAKOV TERAN Date: 05/31/2024 09:14
[2024-05-30 17:40] VITALS: BP 118/75; PULSE 78
== END 2024-05-30 18:09 | disposition home or self-care (01) ==
LOC: US 02:06 → FBC 17:08
PROVIDERS: PCP Family Medicine; Visit Provider Obstetrics & Gynecology
DX: O24.419 Gestational diabetes mellitus in pregnancy, unspecified control (principal); O99.283 Endocrine, nutritional and metabolic diseases complicating pregnancy, third trimester; E03.8 Other specified hypothyroidism; Z3A.35 35 weeks gestation of pregnancy
CPT/HCPCS: 36415; 76818; 84443; 87081

== ENCOUNTER 2024-05-30 16:39 | Outpatient (OUT) | payer BC, MEDICAID, SELFPAY ==
[2024-05-30 17:23] LABS: Thyroid Stimulating Hormone 1.826 uIU/mL (0.358-3.740)
== END 2024-05-30 16:40 | disposition home or self-care (01) ==
PROVIDERS: PCP Family Medicine; Visit Provider Obstetrics & Gynecology
DX: E03.8 Other specified hypothyroidism (principal)
CPT/HCPCS: 36415; 84443

== ENCOUNTER 2024-05-30 21:47 | Outpatient (REF) | payer BC, MEDICAID, SELFPAY ==
--- OUTSIDE RECORDS SUMMARY | 2024-05-30 21:51 | XMS_ITS | CCD ---
Author Organization [facility] Care Team Providers Care Product Craftsman Name Role Phone RENEE, MODE R Referring [...] ÁNGEL Attending Unavailable KIEPERT, ÁNGEL Admitting Unavailable OTIS, DR DEANNA Lance Consulting Unavailable PAY ., [...] Carlos Alberto Coleman MD Primary Care Provider [phone] Kylee MANAGER OF INVESTIGATIONS, Tori Unavailable Maile MANAGER OF INVESTIGATIONS, Sofie R Unavailable MD Carlos Alberto Coleman Primary Care Provider [phone] HEATHER Gr Attending Provider Maile MANAGER OF INVESTIGATIONS, Sofie R Unavailable Kylee MANAGER OF INVESTIGATIONS, Tori Unavailable Sofie Gr Attending Unavailable Maile, [...] source) Cefuroxime Drug Allergy 04-04-20 22 [facility] (2 sources) Ciprofloxacin Drug Allergy 04-03-20 16 [facility] (2 sources) Doxycycline Drug Allergy 05-20-19 21 vomiting [facility] (1 source) Flupenthixol Drug Allergy 04-04-20 22 [facility] (20 sources) Cefuroxime Drug Allergy 05-20-19 21 Rash [facility] (20 sources) Ciprofloxacin Drug Allergy 09-02-19 23 Shortness of breath [facility] (20 sources) Ciprofloxacin Drug Allergy 09-02-19 23 Shortness of breath [facility] (20 sources) cloNIDine Drug Allergy 03-14-20 21 [facility] (20 sources) cloNIDine Drug Allergy 09-02-19 23 [facility] (20 sources) Doxycycline Drug Allergy 05-20-19 21 GI intolerance [facility] (20 sources) Gluten Propensity to adverse reactions 11-11-19 19 [facility] (20 sources) Lactose (non-medical use) Allergy to substance 09-02-19 23 [facility] (20 sources) Lactose (non-medical use) Drug Intolerance 11-11-19 19 [facility] (20 sources) Octacosanol Drug Intolerance 11-11-19 19 [facility] (20 sources) Other Allergy to substance 11-11-19 19 [facility] (20 sources) Silver Allergy to substance 09-02-19 23 [facility] (20 sources) Wound Dressing Adhesive Drug Allergy 09-02-19 23 [facility] (1 source) Cefuroxime Drug Allergy 05-20-19 21 [facility] (1 source) Ciprofloxacin Drug Allergy 05-20-19 [facility] (1 source) Doxycycline Drug Allergy 05-20-19 [facility] Medications Current Medications Medication Drug Class(es) [...] Drug Class(es) Dates Sig (Normalized) Sig (Original) [id number] 200 actuat albuterol 0.09 mg/actuat metered dose [...] UA Negative Negative - 4(70) +++ mg/dL [facility] Blood, UA Negative Negative - 50 Mendel/mcL [facility] Clarity, UA Clear [facility] Color, UA Yellow [facility] Glucose, UA Negative Negative - 2000(110) ++++ mg/dL [facility] Interpretation and review of laboratory results Abnormal [facility] Ketones, UA Positive Negative - 160(16) ++++ mg/dL [facility] Comment on above: trace Leukocytes, UA Positive Negative - 500+++ Leighann/mcL [facility] Comment on above: small Nitrite, UA Negative Negative - Positive [facility] pH, UA 6 5 - 9 [facility] Protein, UA Trace Negative - 2000(20) ++++ mg/dL [facility] Spec Grav, UA 1.03 1 - 1.03 [facility] Urobilinogen, UA 1.0 0.2 - 12 mg/dL [facility] US OB BPP W NON-STRESS on 05-24-[address] [address] Ultrasound Report Signed Patient: CECELIA JOHNSON MR#: [id number] : 1995 Acct:[id number] Age/Sex: 28 / F ADM Date: 05/23/24 Loc: US Attending Dr: Herber Coto D.O. Ordering Physician: Herber Coto D.O. Date of Service: 05/23/24 Procedure(s): US OB BPP w non-stress Accession Number(s): [id number] cc: CARLOS ALBERTO COLEMAN ; Herber Coto D.O. The [place] [id number] Patient Name: CECELIA JOHNSON MRN: [facility]:[id number] date: 1995 Sex: F Assigned Patient Location: [facility] Current Patient Location: Accession/Order Number: [id number] Exam Date: 05/23/2024 19:13 Report Date: 05/24/2024 [...] M.D. Signed By: 05/24/24426 DD/ 2 TD/TT: Dancer Or Choreographer: [facility] Radiology, Radiologist, MD - 05/24/2024 [place] [address] Ultrasound Report Signed Patient: CECELIA JOHNSON MR#: [id number] : 1995 Acct:[id number] Age/Sex: 28 / F ADM Date: 05/23/24 Loc: US Attending Dr: Herber Coto D.O. Ordering Physician: Herber Coto D.O. Date of Service: 05/23/24 Procedure(s): US OB BPP w non-stress Accession Number(s): [id number] cc: CARLOS ALBERTO COLEMAN ; Herber Coto D.O. [place] [address] Patient Name: CECELIA JOHNSON MRN: [id number] date: 1995 Sex: F Assigned Patient Location: [facility] Current Patient Location: Accession/Order Number: [id number] Exam Date: 05/23/2024 19:13 Report Date: 05/24/2024 [...] M.D. Signed By: 05/24/24426 DD/ 2 TD/TT: Dancer Or Choreographer: [facility] Radiology Study observation (narrative) [facility] US OB BPP W NON-STRESS Ordered By: Radiologist Radiology on 05-24-2024 [facility] Work Phone: Urinalysis macro (dipstick) panel (U)on 01-13-2025 Bilirubin, UA Negative Negative - 4(70) +++ mg/dL [facility] Blood, UA Negative Negative - 50 Mendel/mcL [facility] Clarity, UA Clear [facility] Color, UA Yellow [facility] Glucose, UA Negative Negative - 1999(110) ++++ mg/dL [facility] Interpretation and review of laboratory results Abnormal [facility] Ketones, UA Negative Negative - 160(16) ++++ mg/dL [facility] Leukocytes, UA Positive Negative - 500+++ Leighann/mcL [facility] Comment on above: small Nitrite, UA Negative Negative - Positive [facility] pH, UA 6 5 - 9 [facility] Protein, UA Negative Negative - 1999(20) ++++ mg/dL [facility] Spec Grav, UA 1.03 1 - 1.03 [facility] Urobilinogen, UA 1.0 0.2 - 12 mg/dL [facility] Urinalysis macro (dipstick) panel (U)on 04-21-2024 Bilirubin, UA Negative Negative - 4(70) +++ mg/dL [facility] Blood, UA Negative Negative - 50 Mendel/mcL [facility] Clarity, UA Clear [facility] Color, UA Light Yellow [facility] Glucose, UA Negative Negative - 1999(110) ++++ mg/dL [facility] Interpretation and review of laboratory results Normal [facility] Ketones, UA Negative Negative - 160(16) ++++ mg/dL [facility] Leukocytes, UA Few Negative - 500+++ Leighann/mcL [facility] Nitrite, UA Negative Negative - Positive [facility] pH, UA 5.5 5 - 9 [facility] Protein, UA Trace Negative - 1999(20) ++++ mg/dL [facility] Spec Grav, UA 1.03 1 - 1.03 [facility] Urobilinogen, UA 0.2 0.2 - 12 mg/dL [facility] Urinalysis macro (dipstick) panel (U)on 04-13-2024 Bilirubin, UA Negative Negative - 4(70) +++ mg/dL [facility] Blood, UA Negative Negative - 50 Mendel/mcL [facility] Clarity, UA Clear [facility] Color, UA Yellow [facility] Glucose, UA Negative Negative - 1999(110) ++++ mg/dL [facility] Interpretation and review of laboratory results Normal [facility] Ketones, UA Negative Negative - 160(16) ++++ mg/dL [facility] Leukocytes, UA Negative Negative - 500+++ Leighann/mcL [facility] Nitrite, UA Negative Negative - Positive [facility] pH, UA 5.5 5 - 9 [facility] Protein, UA Negative Negative - 1999(20) ++++ mg/dL [facility] Spec Grav, UA 1.03 1 - 1.03 [facility] Urobilinogen, UA 0.2 0.2 - 12 mg/dL [facility] Urinalysis macro (dipstick) panel (U)on 04-06-2024 Bilirubin, UA Negative Negative - 4(70) +++ mg/dL [facility] Blood, UA Negative Negative - 50 Mendel/mcL [facility] Clarity, UA Clear [facility] Color, UA Yellow [facility] Glucose, UA Negative Negative - 1999(110) ++++ mg/dL [facility] Interpretation and review of laboratory results Normal [facility] Ketones, UA Negative Negative - 160(16) ++++ mg/dL [facility] Leukocytes, UA Negative Negative - 500+++ Leighann/mcL [facility] Nitrite, UA Negative Negative - Positive [facility] pH, UA 6 5 - 9 [facility] Protein, UA Negative Negative - 1999(20) ++++ mg/dL [facility] Spec Grav, UA 1.015 1 - 1.03 [facility] Urobilinogen, UA 0.2 0.2 - 12 mg/dL [facility] ALL CBC WITH AUTO DIFFon BASOPHILS ABSOLUTE AUTO 0 [facility] Basophils/100 WBC (Bld) 0.2 % 0.2 - 2.0 % [facility] Eosinophils/100 WBC (Bld) 0.7 % Low 0.9 - 7.0 % [facility] Erythrocyte distribution width (RBC) [Ratio] 12.3 % 11.0 - 15.0 % [facility] Hematocrit (Bld) [Volume fraction] 35.3 % Low 36.0 - 48.0 % [facility] Hemoglobin (Bld) [Mass/Vol] 11.8 g/dL Low 12.0 - 16.0 g/dL [facility] IMMATURE GRANULOCYTES ABS AUTO 0.04 High [facility] Immature granulocytes/100 WBC (Bld) 0.5 % 0.0 - 0.5 % [facility] Interpretation and review of laboratory results Abnormal [facility] LYMPHOCYTES ABSOLUTE AUTO 1.5 [facility] Lymphocytes/100 WBC (Bld) 17.1 % Low 20.5 - 60.0 % [facility] MCH (RBC) [Entitic mass] 31.1 pg 26.7 - 34.0 pg [facility] MCHC (RBC) [Mass/Vol] 33.4 g/dL 29.9 - 35.2 g/dL [facility] MCV (RBC) [Entitic vol] 93.1 fL 81.0 - 99.0 fL [facility] MONOCYTES ABSOLUTE AUTO 0.6 [facility] Monocytes/100 WBC (Bld) 7.2 % 1.7 - 12.0 % [facility] NEUTROPHILS ABSOLUTE AUTO 6.5 [facility] Neutrophils/100 WBC (Bld) 74.3 % 43.0 - 75.0 % [facility] Platelet mean volume (Bld) [Entitic vol] 10.6 fL 9.5 - 13.5 fL [facility] TBH EO # 0.1 [facility] TB PLT 178 [facility] RBC 3.79 Low [facility] WBC 8.8 [facility] IGP,APTIMA HPV,AGE GDLNon AGE GDLN ACOG TESTING Note . [facility] Comment on above: TESTS RESULT FLAG UN ITS REF RANGE LAB Clinician Provided Cytology Information Source.............Cervix No. of containers..01 ThinPrep Vial Age Algo ACOG Sonja... 30-65 01 FLAG LEGEND: L-Low Normal,H-High Normal,LL-Alert Low,HH-Alert High <-Panic Low,>-Panic High,A-Abnormal,AA-Critical Abnormal Performed at: 01 =[address] [address] Radha Browne MD, HPV APTIMA Negative Negative [facility] Comment on above: This nucleic acid am plification test detects fourteen high- risk HPV types (16,18,31,33,35,39,45,51,52,56,58,59,66,68) without differentiation. Performed at: =[address] [id number] Perinatal Coordinator: Radha Browne MD, Phone: [phone] Performed at: [address] [id number] Perinatal Coordinator: Radha Browne MD, Phone: [phone] IGP, APTIMA HPV, RFX 16/18,45 Note . [facility] Comment on above: TESTS RESULT FLAG U NITS REF RANGE LAB DIAGNOSIS: 02 NEGATIVE FOR INTRAEPITHELIAL LESION OR MALIGNANCY. Specimen adequacy: 02 Satisfactory for evaluation. No endocervical component is identified. Performed by: 02 Danie Vargas, Cyberathlete (ASCP) . 02 Note: Note 02 The [...] <-Panic Low,>-Panic High,A-Abnormal,AA-Critical Abnormal Performed at: [address] [address] Radha Browne MD, SP[facility]A-AL[facility] Cervical or vaginal smear or scraping studyon 02-10-2024 [facility] Urinalysis macro (dipstick) panel (U)on 02-10-2024 Bilirubin, UA Negative Negative - 4(70) +++ mg/dL [facility] Blood, UA Negative Negative - 50 Mendel/mcL [facility] Clarity, UA Clear [facility] Color, UA Yellow [facility] Glucose, UA Negative Negative - 1999(110) ++++ mg/dL [facility] Interpretation and review of laboratory results Abnormal [facility] Ketones, UA Negative Negative - 160(16) ++++ mg/dL [facility] Leukocytes, UA Trace Negative - 500+++ Leighann/mcL [facility] Nitrite, UA Negative Negative - Positive [facility] pH, UA 7 5 - 9 [facility] Protein, UA Negative Negative - 1999(20) ++++ mg/dL [facility] Spec Grav, UA 1.02 1 - 1.03 [facility] Urobilinogen, UA 0.2 0.2 - 12 mg/dL [facility] ALL THYROID STIM HORMONEon 0 01-22-2024 TSH Qn 1.921 m[IU]/L [facility] Urinalysis macro (dipstick) panel (U)on 01-11-2024 Bilirubin, UA Negative Negative - 4(70) +++ mg/dL [facility] Blood, UA Negative Negative - 50 Mendel/mcL [facility] Clarity, UA Clear [facility] Color, UA Yellow [facility] Glucose, UA Negative Negative - 1999(110) ++++ mg/dL [facility] Interpretation and review of laboratory results Normal [facility] Ketones, UA Negative Negative - 160(16) ++++ mg/dL [facility] Leukocytes, UA Negative Negative - 500+++ Leighann/mcL [facility] Nitrite, UA Negative Negative - Positive [facility] pH, UA 6.0 5 - 9 [facility] Protein, UA Negative Negative - 1999(20) ++++ mg/dL [facility] Spec Grav, UA 1.015 1 - 1.03 [facility] Urobilinogen, UA 0.2 0.2 - 12 mg/dL [facility] BioFire Not Detectedon 07-12 BioFire Not Detected Not detected Normal Not Detecte T he [facility] Comment on above: Result Comment: This is a duplicate RP2.1 COVID (PCR) result to be used for statistical tracking purpose only. PERFORMED BY: [place] [address] PATHOLOGIST STORE RECEIVER CATY NEELY M.D. Performed By: #### R RODGER PANEL UPP., BIOFIRECOVNOTDE #### [address] COVID-19 Detected/Not Detect edOrdered By: Sofie Gr on 07-13-2023 SARS-CoV-2 (COVID-19) RNA JUAN+non-probe Ql (Nph) Not detected Not Detecte [facility] Comment on above: This is a duplicate [...] Influenza A H3 Blank Space PERFORMED BY: [place] [address] PATHOLOGIST STORE RECEIVER CATY NEELY M.D. Normal [facility] Comment on above: Performed By: #### R RODGER PANEL UPP., BIOFIRECOVNOTDE #### [address] Respiratory pathogens DNA an d RNA panel - Nasopharynx by JUAN with non-probe detectionOrdered By: Sofie Gr on 07-13-2023 Respiratory pathogens DNA and RNA panel JUAN+non-probe (Nph) [facility] CBC AUTO DIFFon 06-25-2022 BASO # 0.0 103/ul Normal 0.0-0.1 [facility] Comment on above: Performed By: #### C BC #### [facility] [address] [place] [address] Dr. Garland Kohli Basophils/100 WBC (Bld) 0.4 % Normal 0.2-2.0 [facility] Comment on above: Performed By: #### C BC #### [facility] [address] [place] [address] Dr. Garland Kohli EO # 0.1 103/ul Normal 0.0-0.7 [facility] Comment on above: Performed By: #### C BC #### [facility] [address] [place] [address] Dr. Garland Kohli Eosinophils/100 WBC (Bld) 0.9 % Normal 0.9-7.0 [facility] Comment on above: Performed By: #### C BC #### [facility] [address] [place] [address] Dr. Garland Kohli Erythrocyte distribution width (RBC) [Ratio] 12.4 % Normal 11.0-15.0 [facility] Comment on above: Performed By: #### C BC #### [facility] [address] [place] [address] Dr. Garland Kohli Hematocrit (Bld) [Volume fraction] 31.4 % Critically low 36.0-48.0 [facility] Comment on above: Performed By: #### C BC #### [facility] [address] [place] [address] Dr. Garland Kohli Hemoglobin (Bld) [Mass/Vol] 10.4 g/dL Critically low 12.0-16.0 [facility] Comment on above: Performed By: #### C BC #### [facility] [address] [place] [address] Dr. Garland Kohli IG # 0.04 10e3/ul Critically high 0.00-0.03 [facility] Comment on above: Performed By: #### C BC #### [facility] [address] [place] [address] Dr. Garland Kohli IG % 0.4 % Normal 0.0-0.5 [facility] Comment on above: Performed By: #### C BC #### [facility] [address] [place] [address] Dr. Garland Kohli LYMPH # 2.0 103/ul Normal 1.2-3.8 [facility] Comment on above: Performed By: #### C BC #### [facility] [address] [place] [address] Dr. Garland Kohli Lymphocytes/100 WBC (Bld) 22.1 % Normal 20.5-60.0 [facility] Comment on above: Performed By: #### C BC #### [facility] [address] [place] [address] Dr. Garland Kohli MANUAL DIFF REQ NO Normal [facility] Comment on above: Performed By: #### C BC #### [facility] [address] [place] [address] Dr. Garland Kohli MCH (RBC) [Entitic mass] 30.1 pg Normal 26.7-34.0 [facility] Comment on above: Performed By: #### C BC #### [facility] [address] [place] [address] Dr. Garland Kohli MCHC (RBC) [Mass/Vol] 33.1 g/dL Normal 29.9-35.2 [facility] Comment on above: Performed By: #### C BC #### [facility] [address] [place] [address] Dr. Garland Kohli MCV (RBC) [Entitic vol] 91.0 fL Normal 81.0-99.0 [facility] Comment on above: Performed By: #### C BC #### [facility] [address] [place] [address] Dr. Garland Kohli MONO # 0.8 103/ul Normal 0.3-0.8 [facility] Comment on above: Performed By: #### C BC #### [facility] [address] [place] [address] Dr. Garland Kohli Monocytes/100 WBC (Bld) 8.8 % Normal 1.7-12.0 [facility] Comment on above: Performed By: #### C BC #### [facility] [address] [place] [address] Dr. Garland Kohli NEUT # 6.0 103/ul Normal 1.4-6.5 [facility] Comment on above: Performed By: #### C BC #### [facility] [address] [place] [address] Dr. Garland Kohli Neutrophils/100 WBC (Bld) 67.4 % Normal 43.0-75.0 [facility] Comment on above: Performed By: #### C BC #### [facility] [address] [place] [address] Dr. Garland Kohli Platelet mean volume (Bld) [Entitic vol] 12.0 fL Normal 9.5-13.5 [facility] Comment on above: Performed By: #### C BC #### [facility] [address] [place] [address] Dr. Garland Kohli PLT 151 103/ul Normal 150-450 [facility] Comment on above: Performed By: #### C BC #### [facility] [address] [place] [address] Dr. Garland Kohli RBC 3.45 106/ul Critically low 4.20-5.40 [facility] Comment on above: Performed By: #### C BC #### [facility] [address] [place] [address] Dr. Garland Kohli WBC 8.9 103/ul Normal 4.0-11.0 [facility] Comment on above: Performed By: #### C BC #### [facility] [address] [place] [address] Dr. Garland Kohli CBC AUTO DIFFon 06-23-2022 BASO # 0.0 103/ul Normal 0.0-0.1 [facility] Comment on above: Performed By: #### C BC #### [facility] [address] [place] [address] Dr. Garland Kohli Basophils/100 WBC (Bld) 0.4 % Normal 0.2-2.0 [facility] Comment on above: Performed By: #### C BC #### [facility] [address] [place] [address] Dr. Garland Kohli EO # 0.1 103/ul Normal 0.0-0.7 [facility] Comment on above: Performed By: #### C BC #### [facility] [address] [place] [address] Dr. Garland Kohli Eosinophils/100 WBC (Bld) 0.8 % Critically low 0.9-7.0 [facility] Comment on above: Performed By: #### C BC #### [facility] [address] [place] [address] Dr. Garland Kohli Erythrocyte distribution width (RBC) [Ratio] 12.4 % Normal 11.0-15.0 [facility] Comment on above: Performed By: #### C BC #### [facility] [address] [place] [address] Dr. Garland Kohli Hematocrit (Bld) [Volume fraction] 34.5 % Critically low 36.0-48.0 [facility] Comment on above: Performed By: #### C BC #### [facility] [address] [place] [address] Dr. Garland Kohli Hemoglobin (Bld) [Mass/Vol] 11.6 g/dL Critically low 12.0-16.0 [facility] Comment on above: Performed By: #### C BC #### [facility] [address] [place] [address] Dr. Garland Kohli IG # 0.04 10e3/ul Critically high 0.00-0.03 [facility] Comment on above: Performed By: #### C BC #### [facility] [address] [place] [address] Dr. Garland Kohli IG % 0.5 % Normal 0.0-0.5 [facility] Comment on above: Performed By: #### C BC #### [facility] [address] [place] [address] Dr. Garland Kohli LYMPH # 1.3 103/ul Normal 1.2-3.8 [facility] Comment on above: Performed By: #### C BC #### [facility] [address] [place] [address] Dr. Garland Kohli Lymphocytes/100 WBC (Bld) 17.6 % Critically low 20.5-60.0 [facility] Comment on above: Performed By: #### C BC #### [facility] [address] [place] [address] Dr. Garland Kohli MANUAL DIFF REQ NO Normal [facility] Comment on above: Performed By: #### C BC #### [facility] [address] [place] [address] Dr. Garladn Kohli MCH (RBC) [Entitic mass] 29.6 pg Normal 26.7-34.0 [facility] Comment on above: Performed By: #### C BC #### [facility] [address] [place] [address] Dr. Garland Kohli MCHC (RBC) [Mass/Vol] 33.6 g/dL Normal 29.9-35.2 [facility] Comment on above: Performed By: #### C BC #### [facility] [address] [place] [address] Dr. Garland Kohli MCV (RBC) [Entitic vol] 88.0 fL Normal 81.0-99.0 [facility] Comment on above: Performed By: #### C BC #### [facility] [address] [place] [address] Dr. Garland Kohli MONO # 0.9 103/ul Critically high 0.3-0.8 [facility] Comment on above: Performed By: #### C BC #### [facility] [address] [place] [address] Dr. Garland Kohli Monocytes/100 WBC (Bld) 11.7 % Normal 1.7-12.0 [facility] Comment on above: Performed By: #### C BC #### [facility] [address] [place] [address] Dr. Garland Kohli NEUT # 5.1 103/ul Normal 1.4-6.5 [facility] Comment on above: Performed By: #### C BC #### [facility] [address] [place] [address] Dr. Garland Kohli Neutrophils/100 WBC (Bld) 69.0 % Normal 43.0-75.0 [facility] Comment on above: Performed By: #### C BC #### [facility] [address] [place] [address] Dr. Garland Kohli Platelet mean volume (Bld) [Entitic vol] 12.1 fL Normal 9.5-13.5 [facility] Comment on above: Performed By: #### C BC #### [facility] [address] [place] [address] [address] Garland Kohli PLT 193 103/ul Normal 150-450 [facility] Comment on above: Performed By: #### C BC #### [facility] [address] [place] [address] [address] Garland Kohli RBC 3.92 106/ul Critically low 4.20-5.40 [facility] Comment on above: Performed By: #### C BC #### [facility] [address] [place] [address] [address] Garland Kohli WBC 7.4 103/ul Normal 4.0-11.0 [facility] Comment on above: Performed By: #### C BC #### [facility] [address] [place] [address] Dr. Garland Kohli DRUG SCREEN RAPID (URINE)on 06-23-2022 AMP Negative Normal NEGATIVE [facility] Comment on above: Performed By: #### D RUGRPD #### [facility] [address] [place] [address] Dr. Garland Kohli BAR Negative Normal NEGATIVE [facility] Comment on above: Performed By: #### D RUGRPD #### [facility] [address] [address] [address] Garland Kohli BUP Negative Normal NEGATIVE [facility] Comment on above: Performed By: #### D RUGRPD #### [facility] [address] [place] [address] Dr. Garland Kohli BZO Negative Normal NEGATIVE [facility] Comment on above: Performed By: #### D RUGRPD #### [facility] [address] [address] [address] Garland Kohli JUANI Negative Normal NEGATIVE [facility] Comment on above: Performed By: #### D RUGRPD #### [facility] [address] [place] [address] Dr. Garland Kohli CUT-OFFS SEE BELOW Normal [facility] Comment on above: Result Comment: AMP [...] ng/mL Performed By: #### D RUGRPD #### [facility] [address] [place] [address] Dr. Garland Kohli DRUG CUT HEADER DRUG CLASS TEST SYSTEM CUT-OFF CONCENTRATIONS ARE FOLLOWS: Normal [facility] Comment on above: Performed By: #### D RUGRPD #### [facility] [address] [place] [address] Dr. Garland Kohli mAMP Negative Normal NEGATIVE [facility] Comment on above: Performed By: #### D RUGRPD #### [facility] [address] [place] [address] Dr. Garland Kohli MTD Negative Normal NEGATIVE [facility] Comment on above: Performed By: #### D RUGRPD #### [facility] [address] [place] [address] Dr. Garland Kohli OPI Negative Normal NEGATIVE [facility] Comment on above: Performed By: #### D RUGRPD #### [facility] [address] [place] [address] Dr. Garland Kohli OXY Negative Normal NEGATIVE [facility] Comment on above: Performed By: #### D RUGRPD #### [facility] [address] [place] [address] Dr. Garland Kohli PCP Negative Normal NEGATIVE [facility] Comment on above: Performed By: #### D RUGRPD #### [facility] [address] [place] [address] Dr. Garland Kohli PPX Negative Normal NEGATIVE [facility] Comment on above: Performed By: #### D RUGRPD #### [facility] [address] [place] [address] Dr. Garland Kohli TCA Negative Normal NEGATIVE [facility] Comment on above: Performed By: #### D RUGRPD #### [facility] [address] [place] [address] Dr. Garland Kohli THC Negative Normal NEGATIVE [facility] Comment on above: Performed By: #### D RUGRPD #### [facility] [address] [place] [address] Dr. Garland Kohli TYPE AND SCREENon 06-23-2022 TYPE AND SCREEN Negative Normal [facility] Comment on above: Performed By: #### T NS #### [facility] [address] [place] [address] Dr. Garland Kohli FREE T4on 06-07-2022 Free T4 [Mass/Vol] 0.76 ng/dL Normal 0.76-1.46 [facility] Comment on above: Performed By: #### C BC #### [facility] [address] [place] [address] Dr. Garland Kohli TSHon 06-07-2022 TSH 1.393 uIU/mL Normal 0.358-3.740 [facility] Comment on above: Performed By: #### T SH #### [facility] [address] [place] [address] Dr. Garland Kohli GROUP B STREP CULTUREon S. agalactiae Ag Ql (Unsp spec) Culture Observations: NEGATIVE FOR GROUP B STREPTOCOCCUS. Normal [facility] Comment on above: Performed By: #### C BC #### [facility] [address] [place] [address] Dr. Garland Kohli GTT 3 HR PREGon 04-16-2022 Glucose [Mass/Vol] 87 mg/dL Normal 74-106 [facility] Comment on above: Performed By: #### G TT3P #### [facility] [address] [place] [address] Dr. Garland Kohli Glucose [Mass/Vol] 148 mg/dL Normal [facility] Comment on above: Performed By: #### G TT3P #### [facility] [address] [address] [address] Garland Kohli Glucose [Mass/Vol] 128 mg/dL Normal [facility] Comment on above: Performed By: #### G TT3P #### [facility] [address] [place] [address] Dr. Garland Kohli Glucose [Mass/Vol] 105 mg/dL Normal [facility] Comment on above: Performed By: #### G TT3P #### [facility] [address] [place] [address] Dr. Garland Kohli CBC AUTO DIFFon 04-04-2022 BASO # 0.0 103/ul Normal 0.0-0.1 [facility] Comment on above: Performed By: #### G TT3P #### [facility] [address] [place] [address] Dr. Garland Kohli Basophils/100 WBC (Bld) 0.2 % Normal 0.2-2.0 [facility] Comment on above: Performed By: #### G TT3P #### [facility] [address] [place] [address] Dr. Garland Kohli EO # 0.0 103/ul Normal 0.0-0.7 [facility] Comment on above: Performed By: #### G TT3P #### [facility] [address] [place] [address] Dr. Garland Kohli Eosinophils/100 WBC (Bld) 0.4 % Critically low 0.9-7.0 [facility] Comment on above: Performed By: #### G TT3P #### [facility] [address] [place] [address] Dr. Garland Kohli Erythrocyte distribution width (RBC) [Ratio] 12.9 % Normal 11.0-15.0 [facility] Comment on above: Performed By: #### G TT3P #### [facility] [address] [place] [address] Dr. Garland Kohli Hematocrit (Bld) [Volume fraction] 32.5 % Critically low 36.0-48.0 [facility] Comment on above: Performed By: #### G TT3P #### [facility] [address] [address] [address] Garland Kohli Hemoglobin (Bld) [Mass/Vol] 11.2 g/dL Critically low 12.0-16.0 [facility] Comment on above: Performed By: #### G TT3P #### [facility] [address] [place] [address] Dr. Garland Kohli IG # 0.07 10e3/ul Critically high 0.00-0.03 [facility] Comment on above: Performed By: #### G TT3P #### [facility] [address] [place] [address] Dr. Garland Kohli IG % 0.8 % Critically high 0.0-0.5 [facility] Comment on above: Performed By: #### G TT3P #### [facility] [address] [place] [address] Dr. Garland Kohli LYMPH # 0.9 103/ul Critically low 1.2-3.8 The [facility] Comment on above: Performed By: #### G TT3P #### [facility] [address] [place] [address] Dr. Garland Kohli Lymphocytes/100 WBC (Bld) 10.4 % Critically low 20.5-60.0 [facility] Comment on above: Performed By: #### G TT3P #### [facility] [address] [place] [address] Dr. Garland Kohli MANUAL DIFF REQ NO Normal [facility] Comment on above: Performed By: #### G TT3P #### [facility] [address] [place] [address] Dr. Garland Kohli MCH (RBC) [Entitic mass] 31.4 pg Normal 26.7-34.0 [facility] Comment on above: Performed By: #### G TT3P #### [facility] [address] [place] [address] Dr. Garland Kohli MCHC (RBC) [Mass/Vol] 34.5 g/dL Normal 29.9-35.2 [facility] Comment on above: Performed By: #### G TT3P #### [facility] [address] [place] [address] Dr. Garland Kohli MCV (RBC) [Entitic vol] 91.0 fL Normal 81.0-99.0 [facility] Comment on above: Performed By: #### G TT3P #### [facility] [address] [place] [address] Dr. Garland Kohli MONO # 1.1 103/ul Critically high 0.3-0.8 [facility] Comment on above: Performed By: #### G TT3P #### [facility] [address] [place] [address] Dr. Garland Kohli Monocytes/100 WBC (Bld) 12.5 % Critically high 1.7-12.0 [facility] Comment on above: Performed By: #### G TT3P #### [facility] [address] [place] [address] Dr. Garland Kohli NEUT # 6.3 103/ul Normal 1.4-6.5 [facility] Comment on above: Performed By: #### G TT3P #### [facility] [address] [place] [address] Dr. Garland Kohli Neutrophils/100 WBC (Bld) 75.7 % Critically high 43.0-75.0 [facility] Comment on above: Performed By: #### G TT3P #### [facility] [address] [place] [address] Dr. Garland Kohli Platelet mean volume (Bld) [Entitic vol] 10.5 fL Normal 9.5-13.5 [facility] Comment on above: Performed By: #### G TT3P #### [facility] [address] [place] [address] Dr. Garland Kohli PLT 181 103/ul Normal 150-450 [facility] Comment on above: Performed By: #### G TT3P #### [facility] [address] [place] [address] Dr. Garland Kohli RBC 3.57 106/ul Critically low 4.20-5.40 [facility] Comment on above: Performed By: #### G TT3P #### [facility] [address] [address] [address] Garland Kohli WBC 8.4 103/ul Normal 4.0-11.0 [facility] Comment on above: Performed By: #### G TT3P #### [facility] [address] [place] [address] Dr. Garland Kohli CTA CHEST WO W [...] by: DEANNA LINN Date: 2022-04-04 15:25 Normal [facility] PROF CHEM 8 (BAS METB)on Anion gap [Moles/Vol] 13.2 mmol/L Normal [facility] Comment on above: Performed By: #### G TT3P #### [facility] [address] [place] [address] Dr. Garland Kohli Calcium [Mass/Vol] 8.5 mg/dL Normal 8.5-10.1 [facility] Comment on above: Performed By: #### G TT3P #### [facility] [address] [place] [address] Dr. Garland Kohli Chloride [Moles/Vol] 103 mmol/L Normal 98-107 [facility] Comment on above: Performed By: #### G TT3P #### [facility] [address] [address] [address] Garland Kohli CO2 [Moles/Vol] 23.4 mmol/L Normal 21.0-32.0 [facility] Comment on above: Performed By: #### G TT3P #### [facility] [address] [address] [address] Garland Kohli Creatinine [Mass/Vol] 0.43 mg/dL Critically low 0.55-1.02 [facility] Comment on above: Performed By: #### G TT3P #### [facility] [address] [address] [address] Garland Kohli EGFR-AF BENINESE >60 Normal >=60 [facility] Comment on above: Performed By: #### G TT3P #### [facility] [address] [address] [address] Garland Kohli EGFR-NON AF BENINESE >60 Normal >=60 [facility] Comment on above: Performed By: #### G TT3P #### [facility] [address] [address] [address] Garland Kohli Glucose [Mass/Vol] 108 mg/dL Critically high 74-106 [facility] Comment on above: Performed By: #### G TT3P #### [facility] [address] [place] [address] Dr. Garland Kohli Potassium [Moles/Vol] 3.6 mmol/L Normal 3.5-5.1 [facility] Comment on above: Performed By: #### G TT3P #### [facility] [address] [address] [address] Garland Kohli Sodium [Moles/Vol] 136 mmol/L Normal 136-145 [facility] Comment on above: Performed By: #### G TT3P #### [facility] [address] [address] [address] Garland Kohli Urea nitrogen [Mass/Vol] 5.0 mg/dL Critically low 7.0-18.0 [facility] Comment on above: Performed By: #### G TT3P #### [facility] [address] [place] [address] Dr. Garland Kohli Urea nitrogen/Creatinine [Mass ratio] 11.6 mg/mg Normal [facility] Comment on above: Performed By: #### G TT3P #### [facility] [address] [place] [address] Dr. Garland Kohli TROPONIN, HIGH SENSITIVITYon 04-04-2022 HSTROP 9.3 pg/mL Normal 4.0-51.3 [facility] Comment on above: Result Comment: CUT- OFF POINTS HAVE BEEN ESTABLISHED BASED ON THE FOURTH UNIVERSAL DEFINITIONS OF MYOCARDIAL INFARCTION. THE UPPER REFERENCE LIMIT (URL) OF TROPONIN, DEFINED THE 99TH PERCENTILE OF cTnI DISTRIBUTION IN A REFERENCE POPULATION, HAS BEEN CONFIRMED THE DECISION THRESHOLD FOR [place] DIAGNOSIS. Performed By: #### G TT3P #### [facility] [address] [place] [address] Dr. Garland Kohli CBC AUTO DIFFon 03-26-2022 BASO # 0.0 103/ul Normal 0.0-0.1 [facility] Comment on above: Performed By: #### G TT3P #### [facility] [address] [place] [address] Dr. Garland Kohli Basophils/100 WBC (Bld) 0.2 % Normal 0.2-2.0 [facility] Comment on above: Performed By: #### G TT3P #### [facility] [address] [place] [address] Dr. Garland Kohli EO # 0.1 103/ul Normal 0.0-0.7 [facility] Comment on above: Performed By: #### G TT3P #### [facility] [address] [place] [address] Dr. Garland Kohli Eosinophils/100 WBC (Bld) 1.0 % Normal 0.9-7.0 [facility] Comment on above: Performed By: #### G TT3P #### [facility] [address] [place] [address] Dr. Garland Kohli Erythrocyte distribution width (RBC) [Ratio] 12.8 % Normal 11.0-15.0 [facility] Comment on above: Performed By: #### G TT3P #### [facility] [address] [place] [address] Dr. Garland Kohli Hematocrit (Bld) [Volume fraction] 36.2 % Normal 36.0-48.0 [facility] Comment on above: Performed By: #### G TT3P #### [facility] [address] [place] [address] Dr. Garland Kohli Hemoglobin (Bld) [Mass/Vol] 12.2 g/dL Normal 12.0-16.0 [facility] Comment on above: Performed By: #### G TT3P #### [facility] [address] [place] [address] Dr. Garland Kohli IG # 0.08 10e3/ul Critically high 0.00-0.03 [facility] Comment on above: Performed By: #### G TT3P #### [facility] [address] [place] [address] Dr. Garland Kohli IG % 0.9 % Critically high 0.0-0.5 [facility] Comment on above: Performed By: #### G TT3P #### [facility] [address] [place] [address] Dr. Garland Kohli LYMPH # 1.7 103/ul Normal 1.2-3.8 [facility] Comment on above: Performed By: #### G TT3P #### [facility] [address] [place] [address] Dr. Garland Kohli Lymphocytes/100 WBC (Bld) 17.8 % Critically low 20.5-60.0 [facility] Comment on above: Performed By: #### G TT3P #### [facility] [address] [place] [address] Dr. Garland Kohli MANUAL DIFF REQ NO Normal [facility] Comment on above: Performed By: #### G TT3P #### [facility] [address] [place] [address] Dr. Garland Kohli MCH (RBC) [Entitic mass] 30.7 pg Normal 26.7-34.0 [facility] Comment on above: Performed By: #### G TT3P #### [facility] [address] [address] [address] Garland Kohli MCHC (RBC) [Mass/Vol] 33.7 g/dL Normal 29.9-35.2 [facility] Comment on above: Performed By: #### G TT3P #### [facility] [address] [address] [address] Garland Kohli MCV (RBC) [Entitic vol] 91.2 fL Normal 81.0-99.0 [facility] Comment on above: Performed By: #### G TT3P #### [facility] [address] [address] [address] Garland Kohli MONO # 0.6 103/ul Normal 0.3-0.8 [facility] Comment on above: Performed By: #### G TT3P #### [facility] [address] [place] [address] Dr. Garland Kohli Monocytes/100 WBC (Bld) 6.0 % Normal 1.7-12.0 [facility] Comment on above: Performed By: #### G TT3P #### [facility] [address] [place] [address] Dr. Garland Kohli NEUT # 6.9 103/ul Critically high 1.4-6.5 [facility] Comment on above: Performed By: #### G TT3P #### [facility] [address] [place] [address] Dr. Garland Kohli Neutrophils/100 WBC (Bld) 74.1 % Normal 43.0-75.0 [facility] Comment on above: Performed By: #### G TT3P #### [facility] [address] [place] [address] Dr. Garland Kohli Platelet mean volume (Bld) [Entitic vol] 10.2 fL Normal 9.5-13.5 [facility] Comment on above: Performed By: #### G TT3P #### [facility] [address] [address] [address] Garland Kohli PLT 217 103/ul Normal 150-450 [facility] Comment on above: Performed By: #### G TT3P #### [facility] [address] [place], [place] [address] Dr. Garland Kohli RBC 3.97 106/ul Critically low 4.20-5.40 [facility] Comment on above: Performed By: #### G TT3P #### [facility] [address] [place], [place] [address] Dr. aGrland Kohli WBC 9.3 103/ul Normal 4.0-11.0 [facility] Comment on above: Performed By: #### G TT3P #### [facility] [address] [address] [address] Garland Kohli GLUCOSE - 1HRon 03-26-2022 Glucose [Mass/Vol] 155 mg/dL Critically high 74-106 [facility] Comment on above: Performed By: #### C BC #### [facility] [address] [address] [address] Garland Kohli US PREG ANATOMY SINGLEon [...] YAAKOV HOUSER Date: 2022-02-09 19:30 Normal [facility] AFP MATERNAL FOR SPINA BIFID Aon 01-29-2022 AFP MoM 0.76 Normal [facility] Comment on above: Performed By: #### G TT3P #### [facility] [address] [address] [address] Garland Kohli AFP Value 35.4 ng/mL Normal [facility] Comment on above: Performed By: #### G TT3P #### [facility] [address] [address] [address] Garland Kohli AFP, Serum for Spina Bifida Report Normal [facility] Comment on above: Performed By: #### G TT3P #### [facility] [address] [address] [address] Garland Kohli Comment Comment Normal [facility] Comment on above: Result Comment: Stanley Almodovar, Ph.D., [facility] Director . References: Available Upon Request. . Multiples Of Median Cutoffs For AFP Elevations Mark 2.5 Black 2.8 IDD 2.0 Twins 4.5 Abbreviation Definitions IDD - Insulin Dep Diabetes OSBR - Open Spina Bifida Risk . For further inquiries contact [email or web address] at [phone]. . This test was developed and its performance characteristics determined by [employer]. It has not been cleared or approved by the Food and Drug Administration. Performed By: #### G TT3P #### [facility] [address] [address] [address] Garland Izquierdo Age Collection Date 18.1 weeks Normal [facility] Comment on above: Performed By: #### G TT3P #### [facility] [address] [place] [address] Dr. Garland Kohli Gestat, Age Based on Ultrasound Normal [facility] Comment on above: Result Comment: 09:4 on 11/26/2021 Recalculations are not recommended when gestational dating by LMP and ultrasound are within 10 days. Performed By: #### G TT3P #### [facility] [address] [address] [address] Garland Kohli Insulin Dep Diabetes No Normal [facility] Comment on above: Performed By: #### G TT3P #### [facility] [address] [address] [address] Garland Kohli Interpretation Comment Normal [facility] Comment on above: Result Comment: [...] Customer Services to discuss available options. The [employer] recommends amniocentesis be offered to women age 35 and older. Performed By: #### G TT3P #### [facility] [address] [place] [address] Dr. Garland Kohli [age] yr [facility] Comment on above: Performed By: #### G TT3P #### [facility] [address] [place] [address] Dr. Garland Kohli Multiple Gestation No Normal [facility] Comment on above: Performed By: #### G TT3P #### [facility] [address] [place] [address] Dr. Garland Kohli OSBR Risk 1 [place] [id number] [facility] Comment on above: Performed By: #### G TT3P #### [facility] [address] [place] [address] Dr. Garland Kohli PDF . Normal [facility] Comment on above: Performed By: #### G TT3P #### [facility] [address] [place] [address] Dr. Garland Kohli Race Normal [facility] Comment on above: Performed By: #### G TT3P #### [facility] [address] [place] [address] Dr. Garland Kohli Test Results: Negative [facility] Comment on above: Performed By: #### G TT3P #### [facility] [address] [place] [address] Dr. Garland Kohli PAP ACOG PANEL 2: 21 to 29on 01-23-2022 . . Normal [facility] Comment on above: Performed By: #### [id number] #### [facility] [address] [place] [address] Dr. Garland Kohli Age Gdln ACOG Testing [facility] Comment on above: Performed By: #### [id number] #### [facility] [address] [place] [address] Dr. Garland Kohli DIAGNOSIS: Comment [facility] Comment on above: Result Comment: NEGA TIVE FOR INTRAEPITHELIAL LESION OR MALIGNANCY. Performed By: #### [id number] #### [facility] [address] [place] [address] Dr. Garland Kohli Methodology: Comment [facility] Comment on above: Result Comment: This liquid based ThinPrep(R) pap test was screened with the use of an image guided system. Performed By: #### [id number] #### [facility] [address] [place] [address] Dr. Garland Kohli Note: Comment [facility] Comment on above: Result Comment: The Pap smear is a screening test designed to aid in the detection of premalignant and malignant conditions of the uterine cervix. It is not a diagnostic procedure and should not be used as the sole means of detecting cervical cancer. Both false-positive and false-negative reports do occur. . Performed By: #### [id number] #### [facility] [address] [place] [address] Dr. Garland Kohli Performed by: Comment [facility] Comment on above: Result Comment: Kelly Arreugin, Cyberathlete (ASCP) Performed By: #### [id number] #### [facility] [address] [place] [address] Dr. Garland Kohli Reflex Criteria: Comment [facility] Comment on above: Result Comment: The HPV DNA reflex criteria were not met with this specimen result therefore, no HPV testing was performed. . Performed By: #### [id number] #### [facility] [address] [place] [address] Dr. Garland Kohli Specimen adequacy: Comment Normal [facility] Comment on above: Result Comment: Sati sfactory for evaluation. No endocervical component is identified. Performed By: #### [id number] #### [facility] [address] [place] [address] Dr. Garlnad Kohli CHLAMYDIA/GONOCOCCUS JUAN (SW AB/URINE/PAPon 01-20-2022 Chlamydia trachomatis, JUAN Negative Normal Negative [facility] Comment on above: Performed By: #### C BC #### [facility] [address] [place] [address] Dr. Garland Kohli Neisseria gonorrhoeae, JUAN Negative Normal Negative [facility] Comment on above: Performed By: #### C BC #### [facility] [address] [place] [address] Dr. Garland Kohli TSHon 01-04-2022 TSH 1.707 uIU/mL Normal 0.358-3.740 [facility] Comment on above: Performed By: #### G TT3P #### [facility] [address] [place] [address] Dr. Garland Kohli HEPATITIS C VIRUS AB W/ REFL EX QUANTon 12-17-2021 HCV AB <0.1 Normal 0.0-0.9 [facility] Comment on above: Performed By: #### G TT3P #### [facility] [address] [place] [address] Dr. Garland Kohli Interpretation: Comment Normal [facility] Comment on above: Result Comment: Nega tive Not infected with HCV, unless recent infection is suspected or other evidence exists to indicate HCV infection. Performed By: #### G TT3P #### [facility] [address] [place] [address] Dr. Garland Kohli CULTURE URINEon 12-15-2021 CULTURE URINE Culture Observations : GREATER THAN TWO ORGANISMS PRESENT. PLEASE RESUBMIT CLEAN CATCH MID-STREAM URINE IF CLINICALLY INDICATED. Normal [facility] Comment on above: Performed By: #### U RCX #### [facility] [address] [place] [address] Dr. Garland Kohli HEP B SURFACE ANTIGEN SCREEN on 12-15-2021 HBsAg Screen Negative Normal Negative [facility] Comment on above: Performed By: #### H BSANS #### [facility] [address] [place] [address] Dr. Garland Kohli HIV 1 AND 2 WITH REFLEXon HIV Screen 4th Generation wRfx Non-Reactive Normal Non Reactive [facility] Comment on above: Result Comment: HIV Negative HIV-1/HIV-2 antibodies and HIV-1 p24 antigen were NOT detected. There is no laboratory evidence of HIV infection. Performed By: #### H IV12 #### [facility] [address] [place] [address] Dr. Garland Kohli RPR QUANTon 12-15-2021 Rapid Plasma Reagin, Quant Non-Reactive Normal NonRea<1:1 [facility] Comment on above: Result Comment: Plea se Note: This test does not meet current guidelines for screening and diagnosis of syphilis. This test is intended for following treatment response in patients being treated for syphilis infection. To screen for syphilis infection, a reflex cascade that includes both RPR and a treponema-specific assay should be utilized, such as Treponema pallidum (Syphilis) Screening [place] (478603) or Rapid Plasma Reagin (RPR) Test With Reflex to Quantitative RPR and Confirmatory Treponema pallidum Antibodies (753692). Performed By: #### G TT3P #### [facility] [address] [place] [address] Dr. Garland Kohli RUBELLA AB IGGon 12-15-2021 Rubella Antibodies, IgG 4.72 index Normal Immune >0.99 [facility] Comment on above: Result Comment: Non- immune <0.90 Equivocal 0.90 - 0.99 Immune >0.99 Performed By: #### G TT3P #### [facility] [address] [place] [address] Dr. Garland Kohli CBC AUTO DIFFon 12-14-2021 BASO # 0.0 103/ul Normal 0.0-0.1 [facility] Comment on above: Performed By: #### C BC #### [facility] [address] [place] [address] Dr. Garland Kohli Basophils/100 WBC (Bld) 0.3 % Normal 0.2-2.0 [facility] Comment on above: Performed By: #### C BC #### [facility] [address] [place] [address] Dr. Garland Kohli EO # 0.1 103/ul Normal 0.0-0.7 [facility] Comment on above: Performed By: #### C BC #### [facility] [address] [place] [address] Dr. Garland Kohli Eosinophils/100 WBC (Bld) 0.8 % Critically low 0.9-7.0 [facility] Comment on above: Performed By: #### C BC #### [facility] [address] [place] [address] Dr. Garland Kohli Erythrocyte distribution width (RBC) [Ratio] 12.6 % Normal 11.0-15.0 [facility] Comment on above: Performed By: #### C BC #### [facility] [address] [place] [address] Dr. Garland Kohli Hematocrit (Bld) [Volume fraction] 34.3 % Critically low 36.0-48.0 [facility] Comment on above: Performed By: #### C BC #### [facility] [address] [place] [address] Dr. Garland Kohli Hemoglobin (Bld) [Mass/Vol] 11.7 g/dL Critically low 12.0-16.0 [facility] Comment on above: Performed By: #### C BC #### [facility] [address] [place] [address] Dr. Garland Kohli IG # 0.03 10e3/ul Normal 0.00-0.03 [facility] Comment on above: Performed By: #### C BC #### [facility] [address] [place] [address] Dr. Garland Kohli IG % 0.4 % Normal 0.0-0.5 [facility] Comment on above: Performed By: #### C BC #### [facility] [address] [place] [address] Dr. Garland Kohli LYMPH # 1.5 103/ul Normal 1.2-3.8 [facility] Comment on above: Performed By: #### C BC #### [facility] [address] [place] [address] Dr. Garland Kohli Lymphocytes/100 WBC (Bld) 21.1 % Normal 20.5-60.0 [facility] Comment on above: Performed By: #### C BC #### [facility] [address] [place] [address] Dr. Garland Kohli MANUAL DIFF REQ NO Normal [facility] Comment on above: Performed By: #### C BC #### [facility] [address] [place] [address] Dr. Garland Kohli MCH (RBC) [Entitic mass] 30.5 pg Normal 26.7-34.0 [facility] Comment on above: Performed By: #### C BC #### [facility] [address] [place] [address] Dr. Garland Kohli MCHC (RBC) [Mass/Vol] 34.1 g/dL Normal 29.9-35.2 [facility] Comment on above: Performed By: #### C BC #### [facility] [address] [place] [address] Dr. Garland Kohli MCV (RBC) [Entitic vol] 89.6 fL Normal 81.0-99.0 [facility] Comment on above: Performed By: #### C BC #### [facility] [address] [place] [address] Dr. Garland Kohli MONO # 0.5 103/ul Normal 0.3-0.8 [facility] Comment on above: Performed By: #### C BC #### [facility] [address] [place] [address] Dr. Garland Kohli Monocytes/100 WBC (Bld) 7.1 % Normal 1.7-12.0 [facility] Comment on above: Performed By: #### C BC #### [facility] [address] [place] [address] Dr. Garland Kohli NEUT # 5.0 103/ul Normal 1.4-6.5 [facility] Comment on above: Performed By: #### C BC #### [facility] [address] [place] [address] Dr. Garland Kohli Neutrophils/100 WBC (Bld) 70.3 % Normal 43.0-75.0 [facility] Comment on above: Performed By: #### C BC #### [facility] [address] [place] [address] Dr. Garland Kohli Platelet mean volume (Bld) [Entitic vol] 10.1 fL Normal 9.5-13.5 [facility] Comment on above: Performed By: #### C BC #### [facility] [address] [place] [address] Dr. Garland Kohli PLT 234 103/ul Normal 150-450 [facility] Comment on above: Performed By: #### C BC #### [facility] [address] [place] [address] Dr. Garland Kohli RBC 3.83 106/ul Critically low 4.20-5.40 [facility] Comment on above: Performed By: #### C BC #### [facility] [address] [place] [address] Dr. Garland Kohli WBC 7.1 103/ul Normal 4.0-11.0 [facility] Comment on above: Performed By: #### C BC #### [facility] [address] [place] [address] Dr. aGrland Kohli GLYCOHEMOGLOBIN A1Con 2021 ADA RECOMMENDATION SEE BELOW Normal [facility] Comment on above: Result Comment: ADA RECOMMENDED LIMIT 4.0 - 6.0 ADA THERAPEUTIC TARGET < 7.0 ACTION SUGGESTED > 7.0 Performed By: #### A 1C #### [facility] [address] [place] [address] Dr. Garland Kohli Glucose [Mass/Vol] 103 mg/dL Normal [facility] Comment on above: Performed By: #### A 1C #### [facility] [address] [place] [address] Dr. Garland Kohli HbA1c (Bld) [Mass fraction] 5.2 % Normal 4.5-6.2 [facility] Comment on above: Performed By: #### A 1C #### [facility] [address] [place] [address] Dr. Garland Kohli MARTÍNEZ BOX TEST PT SEND OUTo n 12-14-2021 SENT TO REF LAB 12/14/21 Normal [facility] Comment on above: Performed By: #### G TT3P #### [facility] [address] [place] [address] Dr. Garland Kohli TYPE AND SCREENon 12-14-2021 TYPE AND SCREEN Negative Normal [facility] Comment on above: Performed By: #### C BC #### [facility] [address] [place] [address] Dr. Garland Kohli US PREG TVon 11-26-2021 [...] by: YAAKOV HOUSER Date: 2021-11-26 18:36 Normal [facility] OPERATIVE REPORTon OPERATIVE REPORT [address] [id number] OPERATIVE REPORT PATIENT NAME: CECELIA JOHNSON : 1995 MED REC NO: [id number] ROOM: ACCOUNT NO: [id number] ADMIT DATE: 11/24/2018 PROVIDER: Mode Renee DATE [...] infiltrated into the drains, this was for intermediate accountant pain control. Steri-Strips applied throughout and then bulky gauze dressing as well as surgical bra was applied. The patient was awoken, extubated, and transported to the recovery room in stable condition. Sponge, needle, and instrument counts were reported correct x2 at the end of the case. MODE RENEE [id number] Doc#: [id number] CC: Carlos Alberto Coleman Normal [facility] Surgical Pathologyon 019 Surgical Pathology (NOTE) [id number] [place] [address] SURGICAL PATHOLOGY REPORT Patient Name: CECELIA JOHNSON MR#: [id number] Specimen #[id number] Final Diagnosis SPECIMEN A : BREAST AND [...] specimen weighs 453 grams. Multiple new accounts banking representative sections are submitted in five cassettes [...] in multiple different areas and new accounts banking representative sections are submitted in five cassettes for microscopic examination. Microscopic Description Specimen A : Five RICHARD glass slides are received. Microscopic examination is performed. Specimen B : Five RICHARD glass slides are received. Microscopic examination is performed. Normal [facility] Comment on above: Performed By: #### P PPES #### [facility] [address] [place] [address] Perinatal Coordinator: Victor Manuel [place] DO CNOVSPon 11-18-2018 CNOVSP Visit (SP) Office ([facility]) CECELIA JOHNSON ([id number]) 1995 F Date Time Provider Department 11/18/18 1:00 PM JAZ MOULTON) HEMASA During your visit today, we recorded the following information about you: Temperature Pulse Respiration Blood pressure 97.9 degrees 82/minute 18/minute 122/78 Weight Height Last Period 82.7 kg 1.6 m 10/15/18 Jaz Moulton MD 11/18/2018 3:08 PM Signed PATIENT NAME: Cecelia Johnson CLINIC NO.: [id number] ATTENDING PHYSICIAN: Jaz Moulton MD DATE OF [...] file Gets together: Not on file Attends orthodox service: Not on file Active member of [...] Jaz Moulton M.D. Hematology/Medical Oncology [facility] [phone] CC: Carlos Alberto Coleman MD - (Inactive), In Basket (Inactive) - User (Inactive) [address] [place] [address] () Mode Renee MD Referring Provider: [...] Nathan - Fully Assessed Visit Diagnosis:MTHFR mutation ([facility]) [E72.12] Prescriptions as of 11/18/2018 Sig: ACETAMINOPHEN [...] Of Date 11/18/2018 Noted Resolved MTHFR mutation ([facility]) [E72.12] INVALID FOR* Encounter Status:Closed by JAZ MOULTON MD on 11/18/18 Normal [facility] PROGRESSon 11-18-2018 PROGRESS HNO ID: [id number] Author: Jaz Moulton Service: ? Author Type: Physician Type: Progress Notes Filed: 11/18/2018 3:08 PM Note Text: PATIENT NAME: Cecelia Polta CLINIC NO.: [id number] ATTENDING PHYSICIAN: Jaz Moulton MD DATE OF [...] file Gets together: Not on file Attends orthodox service: Not on file Active member of [...] below. Jaz Moulton M.D. Hematology/Medical Oncology [facility] [place] [phone] CC: Carlos Alberto Coleman MD - (Inactive), In Basket (Inactive) - User (Inactive) [address] [facility] [phone] (Ph) Mode Renee MD [facility] Basic Metabolic Profon 11-10 (cont.) Normal [facility] Comment on above: Result Comment: Aver age GFR for 20-29 years old: 116 mL/min/1.73sq m Chronic Kidney Disease: <60 mL/min/1.73sq m Kidney failure: <15 mL/min/1.73sq m eGFR calculated using average adult body mass. Additional eGFR calculator available at: http://www.[employer]/multiple_crcl_2012.htm Performed By: #### C DP, BMP #### [facility] [address] [facility] [address]. [place], [place] [id number] Perinatal Coordinator: Victor Manuel Hunter DO Anion gap [Moles/Vol] 11 mmol/L Normal 9-17 [facility] Comment on above: Performed By: #### C DP, BMP #### [facility] [address] [facility] [address] [place], [place] [id number] Perinatal Coordinator: Victor Manuel Hunter DO Calcium [Mass/Vol] 9.7 mg/dL Normal 8.6-10.4 [facility] Comment on above: Performed By: #### C DP, BMP #### [facility] [address] [place] [address] Perinatal Coordinator: Victor Manuel Hunter DO Chloride [Moles/Vol] 102 mmol/L Normal 98-107 [facility] Comment on above: Performed By: #### C DP, BMP #### [facility] [address] [place] [address] Perinatal Coordinator: Victor Manuel Hunter DO CO2 [Moles/Vol] 26 mmol/L Normal 20-31 [facility] Comment on above: Performed By: #### C DP, BMP #### [facility] [place] [address] Perinatal Coordinator: Victor Manuel Hunter DO Creatinine [Mass/Vol] 0.49 mg/dL Low 0.50-0.90 [facility] Comment on above: Performed By: #### C DP, BMP #### [facility] [place] [address] Perinatal Coordinator: Victor Manuel [place] DO GFR, Amer >60 Normal >60 [facility] Comment on above: Performed By: #### C DP, BMP #### [facility] [place] [address] Perinatal Coordinator: Victor Manuel [place] DO GFR,non Amer >60 Normal >60 [facility] Comment on above: Performed By: #### C DP, BMP #### [facility] [place] [address] Perinatal Coordinator: Victor Manuel [place] DO Glucose [Mass/Vol] 88 mg/dL Normal 70-99 [facility] Comment on above: Performed By: #### C DP, BMP #### [facility] [place] [address] Perinatal Coordinator: Victor Manuel Hunter DO Potassium [Moles/Vol] 4.3 mmol/L Normal 3.7-5.3 [facility] Comment on above: Performed By: #### C DP, BMP #### [facility] [address] [place] [address] Perinatal Coordinator: Victor Manuel Hunter DO Sodium [Moles/Vol] 139 mmol/L Normal 135-144 [facility] Comment on above: Performed By: #### C DP, BMP #### [facility] [address] [place] [address] Perinatal Coordinator: Victor Manuel Hunter DO Urea nitrogen [Mass/Vol] 8 mg/dL Normal -20 [facility] Comment on above: Performed By: #### C DP, BMP #### [facility] [address] [place] [address] Perinatal Coordinator: Victor Manuel Hunter DO BUN/CRE Ratio NOT REPORTED Normal -20 [facility] Comment on above: Performed By: #### C FARAZ, BMP #### [facility] [address] [place] [address] Perinatal Coordinator: Victor Manuel Hunter DO Staging: NOT REPORTED Normal [facility] Comment on above: Performed By: #### C FARAZ, BMP #### [facility] [address] [place] [address] Perinatal Coordinator: Victor Manuel Hunter DO CBC with Diffon 11-10-2018 Abs. Basophil 0.00 k/uL Normal 0.0-0.2 [facility] Comment on above: Performed By: #### C DP, BMP #### [facility] [address] [place] [address] Perinatal Coordinator: Victor Manuel Hunter DO Abs.Neutrophil (Seg) 3.00 k/uL Normal 1.3-9.1 [facility] Comment on above: Performed By: #### C DP, ROSA #### [facility] [address] [facility] [place] [address] Perinatal Coordinator: Victor Manuel Hunter DO Basophils/100 WBC (Bld) 0 % Normal 0-2 [facility] Comment on above: Performed By: #### C DP, BMP #### [facility] [place] [address] Perinatal Coordinator: Victor Manuel Hunter DO Eosinophils (Bld) [#/Vol] 0.10 10*3/uL Normal 0.0-0.4 [facility] Comment on above: Performed By: #### C DP, BMP #### [facility] [address] [place] [address] Perinatal Coordinator: Victor Manuel Hunter DO Eosinophils/100 WBC (Bld) 1 % Normal 0-4 [facility] Comment on above: Performed By: #### C DP, BMP #### [facility] [address] [place] [address] Perinatal Coordinator: Victor Manuel Hunter DO Erythrocyte distribution width (RBC) [Ratio] 12.7 % Normal 11.5-14.9 [facility] Comment on above: Performed By: #### C DP, BMP #### [facility] [address] [place] [address] Perinatal Coordinator: Victor Manuel Hunter DO Hematocrit (Bld) [Volume fraction] 42.3 % Normal 36-46 [facility] Comment on above: Performed By: #### C DP, BMP #### [facility] [address] [place] [address] Perinatal Coordinator: Victor Manuel Hunter DO Hemoglobin (Bld) [Mass/Vol] 14.3 g/dL Normal 12.0-16.0 [facility] Comment on above: Performed By: #### C DP, BMP #### [facility] [address] [place] [address] Perinatal Coordinator: Victor Manuel Hunter DO Lymphocytes (Bld) [#/Vol] 1.70 10*3/uL Normal 1.0-4.8 [facility] Comment on above: Performed By: #### C DP, BMP #### [facility] [address] [place] [address] Perinatal Coordinator: Victor Manuel Hunter DO Lymphocytes/100 WBC (Bld) 32 % Normal 24-44 [facility] Comment on above: Performed By: #### C FARAZ, BMP #### [facility] [address] [place] [address] Perinatal Coordinator: Victor Manuel Hunter DO MCH (RBC) [Entitic mass] 30.0 pg Normal 26-34 [facility] Comment on above: Performed By: #### C DP, BMP #### [facility] [address] [place] [address] Perinatal Coordinator: Victor Manuel Hunter DO MCHC (RBC) [Mass/Vol] 33.7 g/dL Normal 31-37 [facility] Comment on above: Performed By: #### C FARAZ, BMP #### [facility] [address] [place] [address] Perinatal Coordinator: Victor Manuel Hunter DO MCV (RBC) [Entitic vol] 89.0 fL Normal 80-100 [facility] Comment on above: Performed By: #### C DP, BMP #### [facility] [address] [place] [address] Perinatal Coordinator: Victor Manuel Hunter DO Monocytes (Bld) [#/Vol] 0.60 10*3/uL Normal 0.1-1.3 [facility] Comment on above: Performed By: #### C DP, BMP #### [facility] [address] [place] [address] Perinatal Coordinator: Victor Manuel Hunter DO Monocytes/100 WBC (Bld) 11 % High 1-7 [facility] Comment on above: Performed By: #### C DP, BMP #### [facility] [address] [facility] [place] [address] Perinatal Coordinator: Victor Manuel Hunter DO Neutrophil (Seg) 56 % Normal 36-66 [facility] Comment on above: Performed By: #### C DP, BMP #### [facility] [address] [facility] [place] [address] Perinatal Coordinator: Victor Manuel Hunter DO Platelet mean volume (Bld) [Entitic vol] 9.4 fL Normal 6.0-12.0 [facility] Comment on above: Performed By: #### C DP, BMP #### [facility] [place] [address] Perinatal Coordinator: Victor Manuel Hunter DO Platelets (Bld) [#/Vol] 252 10*3/uL Normal 150-450 [facility] Comment on above: Performed By: #### C DP, BMP #### [facility] [place] [address] Perinatal Coordinator: Victor Manuel Hunter DO RBC (Bld) [#/Vol] 4.75 10*6/uL Normal 4.0-5.2 [facility] Comment on above: Performed By: #### C DP, BMP #### [facility] [place] [address] Perinatal Coordinator: Victor Manuel Hunter DO WBC (Bld) [#/Vol] 5.3 10*3/uL Normal 3.5-11.0 [facility] Comment on above: Performed By: #### C DP, BMP #### [facility] [place] [address] Perinatal Coordinator: Victor Manuel Hunter DO Abs.Imm.Granulocyte NOT REPORTED Normal 0.00-0.30 [facility] Comment on above: Performed By: #### C DP, BMP #### [facility] [address] [place] [address] Perinatal Coordinator: Victor Manuel Hunter DO Auto Diff Performed NOT REPORTED Normal [facility] Comment on above: Performed By: #### C DP, BMP #### [facility] [address] [place] [address] Perinatal Coordinator: Victor Manuel Hunter DO Immature granulocytes (Bld) [#/Vol] NOT REPORTED Normal 0 [facility] Comment on above: Performed By: #### C DP, BMP #### [facility] [address] [place] [address] Perinatal Coordinator: Victor Manuel Hunter DO NRBC Automated NOT REPORTED Normal [facility] Comment on above: Performed By: #### C DP, BMP #### [facility] [address] [place] [address] Perinatal Coordinator: Victor Manuel Hunter DO Platelets (Bld) [#/Vol] NOT REPORTED Normal [facility] Comment on above: Performed By: #### C DP, BMP #### [facility] [address] [place] [address] Perinatal Coordinator: Victor Manuel Hunter DO RBC morphology finding Nom (Bld) NOT REPORTED Normal [facility] Comment on above: Performed By: #### C DP, BMP #### [facility] [address] [place] [address] Perinatal Coordinator: Victor Manuel Hunter DO WBC Morphology NOT REPORTED Normal [facility] Comment on above: Performed By: #### C DP, BMP #### [facility] [address] [place] [address] Perinatal Coordinator: Victor Manuel Hunter DO Vital Signs Date Time Vital Sign Value Performing Clinician Facility 05-25-2024 14:24-0500 Body mass index (BMI) [Ratio] 33.03 kg/m2 Herber Nnamdi DO Work Phone: [facility] 05-25-2024 14:24-0500 Body weight 87.27 kg Herber Nnamdi DO Work Phone: [facility] 05-25-2024 14:24-0500 Diastolic blood pressure 84 mm[Hg] Herber Nnamdi DO Work Phone: [facility] 05-25-2024 14:24-0500 Systolic blood pressure 124 mm[Hg] Herber Nnamdi DO Work Phone: [facility] 05-09-2024 16:07-0500 Body mass index (BMI) [Ratio] 32.61 kg/m2 Tori Callaway PA Work Phone: [facility] 05-09-2024 16:07-0500 Body weight 86.18 kg Tori Callaway PA Work Phone: [facility] 05-09-2024 16:07-0500 Diastolic blood pressure 82 mm[Hg] Tori Callaway PA Work Phone: [facility] 05-09-2024 16:07-0500 Systolic blood pressure 120 mm[Hg] Tori Dwight PA Work Phone: [facility] 05-03-2024 16:38-0500 Body height 162.6 cm Tori Jasonchol MANAGER OF INVESTIGATIONS Work Phone: [facility] 05-03-2024 16:38-0500 Body mass index (BMI) [Ratio] 32.3 kg/m2 Tori Jasonchol MANAGER OF INVESTIGATIONS Work Phone: [facility] 05-03-2024 16:38-0500 Body temperature 97.59 [degF] Tori Gomezchol MANAGER OF INVESTIGATIONS Work Phone: [facility] 05-03-2024 16:38-0500 Body weight 85.37 kg Tori Gomezchol MANAGER OF INVESTIGATIONS Work Phone: [facility] 05-03-2024 16:38-0500 Diastolic blood pressure 72 mm[Hg] Tori Gomezchol MANAGER OF INVESTIGATIONS Work Phone: [facility] 05-03-2024 16:38-0500 Heart rate 93 /min Tori Gomezchol MANAGER OF INVESTIGATIONS Work Phone: [facility] 05-03-2024 16:38-0500 SaO2% (BldA) [Mass fraction] 99 % Tori Gomezchol MANAGER OF INVESTIGATIONS Work Phone: [facility] 05-03-2024 16:38-0500 Systolic blood pressure 124 mm[Hg] Tori Gomezchol MANAGER OF INVESTIGATIONS Work Phone: [facility] 04-21-2024 08:49-0500 Body mass index (BMI) [Ratio] 32.06 kg/m2 Herber Nnamdi DO Work Phone: [facility] 04-21-2024 08:49-0500 Body weight 84.73 kg Herber Nnamdi DO Work Phone: [facility] 04-21-2024 08:49-0500 Diastolic blood pressure 72 mm[Hg] Herber Nnamdi DO Work Phone: [facility] 04-21-2024 08:49-0500 Systolic blood pressure 104 mm[Hg] Herber Nnamdi DO Work Phone: [facility] 04-13-2024 15:58-0500 Body mass index (BMI) [Ratio] 31.78 kg/m2 Tori Pepe PA Work Phone: [facility] 04-13-2024 15:58-0500 Body weight 83.97 kg Tori Pepe PA Work Phone: [facility] 04-13-2024 15:58-0500 Diastolic blood pressure 80 mm[Hg] Tori Pepe PA Work Phone: [facility] 04-13-2024 15:58-0500 Systolic blood pressure 120 mm[Hg] Tori Dwight PA Work Phone: [facility] 04-06-2024 16:29-0500 Body mass index (BMI) [Ratio] 31.65 kg/m2 Tori Dwight PA Work Phone: [facility] 04-06-2024 16:29-0500 Body weight 83.64 kg Tori Dwight PA Work Phone: [facility] 04-06-2024 16:29-0500 Diastolic blood pressure 74 mm[Hg] Tori Callaway PA Work Phone: [facility] 04-06-2024 16:29-0500 Systolic blood pressure 112 mm[Hg] Tori Dwight PA Work Phone: [facility] 03-09-2024 16:25-0500 Body mass index (BMI) [Ratio] 30.88 kg/m2 Tori Callaway PA Work Phone: [facility] 03-09-2024 16:25-0500 Body weight 81.6 kg Tori Dwight PA Work Phone: [facility] 03-09-2024 16:25-0500 Diastolic blood pressure 70 mm[Hg] Tori Callaway PA Work Phone: [facility] 03-09-2024 16:25-0500 Systolic blood pressure 114 mm[Hg] Tori Dwight PA Work Phone: [facility] 02-10-2024 14:44-0400 Body mass index (BMI) [Ratio] 29.39 kg/m2 Herber Nnamdi DO Work Phone: [facility] 02-10-2024 14:44-0400 Body weight 77.68 kg Herber Nnamdi DO Work Phone: [facility] 02-10-2024 14:44-0400 Diastolic blood pressure 68 mm[Hg] Herber Nnamdi DO Work Phone: [facility] 02-10-2024 14:44-0400 Systolic blood pressure 116 mm[Hg] Herber Nnamdi DO Work Phone: [facility] 01-11-2024 16:03-0400 Body mass index (BMI) [Ratio] 28.06 kg/m2 Herber Nnamdi DO Work Phone: [facility] 01-11-2024 16:03-0400 Body weight 74.16 kg Herber Nnamdi DO Work Phone: [facility] 01-11-2024 16:03-0400 Diastolic blood pressure 72 mm[Hg] Herber Nnamdi DO Work Phone: [facility] 01-11-2024 16:03-0400 Systolic blood pressure 118 mm[Hg] Herber Nnamdi DO Work Phone: [facility] 01-29-2022 02:06-0400 Body weight 67.[address] ZEN BREWER . [facility] Comment on above: Performed By: #### [id number] #### [facility] [address] [place] [address] Dr. Garland Kohli Encounters Encounter Date Encounter Type Care Provider Facility Start: 05-25-2024 End: 05-25-2024 ambulatory HERBER NNAMDI Not Available Start: 05-25-2024 End: 05-25-2024 flow sheet Herber Nnamdi DO Work Phone: [facility] Comment on above: 34 weeks gestation o f ; Third trimester Start: 05-25-2024 End: 05-25-2024 Bamboo flowsheet Herber Nnamdi DO Work Phone: [facility] Start: 05-25-2024 End: 05-25-2024 Bamboo flowsheet Herber Nnamdi DO Work Phone: [facility] Start: 05-24-2024 End: 05-24-2024 Clinisync Result Encounter Herber Nnamdi DO Work Phone: [facility] External Department Unsolicited Start: 05-24-2024 End: 05-24-2024 Clinisync Result Encounter Herber Nnamdi DO Work Phone: [facility] External Department Unsolicited Start: 05-09-2024 End: 05-09-2024 [...] Office outpatient visit 25 minutes Tori Martinez MANAGER OF INVESTIGATIONS Work Phone: [facility] Comment on above: Need for follow-up c are after discharge (Primary Dx) Start: 05-03-2024 End: 05-03-2024 ambulatory TORI MARTINEZ Not Available Start: 05-03-2024 End: 05-03-2024 Bamboo flowsheet Tori Martinez MANAGER OF INVESTIGATIONS Work Phone: [facility] Start: 05-03-2024 End: 05-03-2024 Bamboo flowsheet Tori Martinez MANAGER OF INVESTIGATIONS Work Phone: [facility] Start: 04-21-2024 End: 04-21-2024 Bamboo flowsheet Herber Nnamdi DO Work Phone: [facility] Start: 04-21-2024 End: 04-21-2024 Bamboo flowsheet Herber Nnamdi DO Work Phone: [facility] Start: 04-21-2024 End: 04-21-2024 ambulatory HEREBR NNAMDI Not Available Start: 04-21-2024 End: 04-21-2024 [...] Bamboo flowsheet Tori Pepe PA Work Phone: [facility] Start: 04-13-2024 End: 04-13-2024 Bamboo flowsheet Tori Pepe PA Work Phone: [facility] Start: 04-06-2024 End: 04-06-2024 ambulatory TORI PEPE Not Available Start: 04-06-2024 End: 04-06-2024 flow sheet Tori SHIRLEY Work Phone: [facility] Comment on above: Second trimester pre gnancy; 27 weeks gestation of Start: 04-06-2024 End: 04-06-2024 Bamboo flowsheet Tori SHIRLEY Work Phone: [facility] Start: 04-06-2024 End: 04-06-2024 Bamboo flowsheet Tori Pepe PA Work Phone: [facility] Start: 03-19-2024 End: 03-19-2024 Clinisync Result Encounter Tori SHIRLEY Work Phone: [facility] External Department Unsolicited Start: 03-19-2024 End: 03-19-2024 Clinisync Result Encounter Tori SHIRLEY Work Phone: [facility] External Department Unsolicited Start: 03-09-2024 End: 03-09-2024 ambulatory TORI PEPE Not Available Start: 03-09-2024 End: 03-09-2024 flow sheet Tori Pepe PA Work Phone: [facility] Comment on above: Encounter for follow -up ultrasound of anatomy; Second trimester ; 23 weeks gestation of ; Hypothyroidism, unspecified type (CMS/HCC); Diabetes mellitus screening; Anxiety, generalized (CMS/HCC) Start: 03-09-2024 End: 03-09-2024 Bamboo flowsheet Tori SHIRLEY Work Phone: [facility] Start: 03-09-2024 End: 03-09-2024 Bamboo flowsheet Tori SHIRLEY Work Phone: [facility] Start: 02-10-2024 End: 02-10-2024 ambulatory HERBER NNAMDI Not Available Start: 02-10-2024 End: 02-10-2024 Bamboo flowsheet Herber Nnamdi DO Work Phone: [facility] Start: 02-10-2024 End: 02-17-2024 Bamboo flowsheet Herber Nnamdi DO Work Phone: [facility] Start: 02-10-2024 End: 02-17-2024 Clinisync Result Encounter Generic External Data Provider [facility] External Department Unsolicited Start: 02-10-2024 End: 02-10-2024 Patient encounter procedure Herber Nnamdi DO Work Phone: [facility] Start: 02-10-2024 End: 02-10-2024 Periodic preventive med est patient 18-39 yrs Herber Nnamdi DO Work Phone: [facility] Comment on above: Well woman exam [...] flow sheet Herber Nnamdi DO Work Phone: [facility] Comment on above: Second trimester pre [...] Carlos Alberto Coleman Work Phone: [facility] Start: 07-13-2023 End: 07-13-2023 ambulatory MD Carlos Alberto Coleman Work Phone: [facility] Work Phone: Start: 07-13-2023 End: 07-13-2023 ambulatory SOFIE GR Not Available Start: 06-02-2023 Refill Tori Martinez MANAGER OF INVESTIGATIONS Work Phone: [facility] Comment on above: Attention deficit hy peractivity disorder (ADHD), combined type ([facility]) Start: 07-04-2022 End: 07-14-2022 ambulatory ÁNGEL RESENDIZT [...] without abnormal findings DR ZEN BREWER . [facility] Start: 01-17-2022 End: 01-17-[address] ZEN BREWER . Facility:[facility] Start: 01-17-2022 End: 01-17-2022 Encounter for gynecological examination (general) (routine) without abnormal findings DR ZEN BREWER . Facility:[facility] Start: 01-04-2022 End: 01-05-2022 ambulatory ÁNGEL SINHA Facility:[facility] Start: 12-14-2021 End: 12-15-[address] ZEN BREWER . Facility:[facility] Start: 11-26-2021 End: 11-27-2021 ambulatory ÁNGEL SINHA Facility:[facility] Start: 11-24-2018 End: 11-24-2018 Patient encounter procedure [facility] Start: 11-10-2018 End: 11-15-2018 Patient encounter procedure [facility] Procedures Date Procedure Procedure Detail [...] Work Phone: Start: 02-10-2024 IGP,APTIMA HPV,AGE GDLN [facility] DO Work Phone: Start: 02-10-2024 Microscopic observat ion [Identifier] in Cervix by Cyto stain Tori SHIRLEY Work Phone: Start: 02-10-2024 Cytp cerv/vag auto t hin layer prep mnl screen Tori SHIRLEY Work Phone: Start: 01-22-2024 ALL THYROID STIM HORMONE [facility] DO Work Phone: Start: 01-11-2024 Urnls dip stick/tabl et rgnt non-auto w/o micrscp [facility] DO Work Phone: Start: 07-13-2023 Respiratory [...] 2024 Influenza vaccination Influenza Vacc ine (#1) [facility] Comment on above: Postponed from 12/26 (Patient Refused) Start: 05-30-2024 End: 05-30-2024 Patient encounter procedure 05/30/2024 3:00 PM EST Routine [facility] [address] [facility] [phone] Herber Coto, DO [address] [place] [address] [facility] Start: 05-25-2024 End: 05-25-2024 Patient encounter procedure 05/25/2024 2:10 PM EST Routine [facility] [address] [facility] [place] [phone] Herber Coto, DO [address] [place] [address] [facility] Start: 05-09-2024 End: 05-09-2024 Patient encounter procedure [facility] Comment on above: Arrived Start: 05-03-2024 End: 05-03-2024 Patient encounter procedure 05/03/2024 4:40 PM EST Office Visit [facility] [address] [place] [address] Tori Martinez, MANAGER OF INVESTIGATIONS [address] [place] [address] Need for follow-up care after discharge (Primary Dx) [facility] Comment on above: Need for follow-up c are after discharge (Primary Dx) Start: 04-21-2024 End: 04-21-2024 Patient encounter procedure 04/21/2024 8:30 AM EST Routine [facility] [address] [facility] [phone] Herber Coto DO [address] [place], [place] [id number] [facility] Start: 04-13-2024 End: 04-13-2024 [...] PM EST Routine [facility] [address] [facility] [place] [address] Tori Pepe PA [address] [place], [place] [id number] [facility] Start: 04-03-2024 End: 03-04-2025 US for US OB INCOMPLETE ANATOMY Imaging Routine Encounter for follow-up ultrasound of anatomy Expected: 04/03/2024 (Approximate), Expires: 03/04/2025 [facility] Work Phone: Comment on above: Expected: 04/03/2024 (Approximate), Expires: 03/04/2025 Start: 03-09-2024 End: 03-09-2024 Patient encounter procedure 03/09/2024 3:50 PM EST Routine [facility] [address] [place] [phone] Tori Pepe PA [address] [facility] [place] [address] [facility] Start: 03-09-2024 End: 03-09-2025 CBC panel - Blood by Automated count CBC Lab Routine Diabetes mellitus screening Expected: 03/09/2024 (Approximate), Expires: 03/09/2025 [facility] Comment on above: Expected: 03/09/2024 (Approximate), Expires: 03/09/2025 Start: 03-09-2024 End: 03-09-2025 Measurement of glucose 1 hour after glucose challenge for glucose tolerance test Glucose tolerance, 1 hour Lab Routine Diabetes mellitus screening Expected: 03/09/2024 (Approximate), Expires: 03/09/2025 [facility] Comment on above: Expected: 03/09/2024 (Approximate), Expires: 03/09/2025 Start: 03-09-2024 End: 03-09-2025 US for US OB SCAN FOR GROWTH Imaging Routine Hypothyroidism, unspecified type (CMS/HCC) Expected: 03/09/2024 (Approximate), Expires: 03/09/2025 [facility] Comment on above: Expected: 03/09/2024 (Approximate), Expires: 03/09/2025 Start: 02-10-2024 End: 02-09-2025 Alpha fetoprotein, maternal Alpha fetoprotein, maternal Lab Routine Second trimester 19 weeks gestation of Expected: 02/10/2024 (Approximate), Expires: 02/09/2025 [facility] Comment on above: Expected: 02/10/2024 (Approximate), Expires: 02/09/2025 Start: 02-10-2024 End: 02-09-2025 US for US OB ANATOMY SINGLE W US OB CERVICAL LENGTH Imaging Routine Screening, , for anatomic survey Expected: 02/10/2024 (Approximate), Expires: 02/09/2025 [facility] Comment on above: Expected: 02/10/2024 (Approximate), Expires: 02/09/2025 Start: 02-10-2024 End: 02-10-2024 Patient encounter procedure 02/10/2024 1:50 PM EDT Routine [facility] [address] [place] [phone] Herber Coto, DO [address] [place], [place] [address] [facility] Start: 01-11-2024 End: 01-11-2024 Patient encounter procedure 01/11/2024 3:50 PM EDT Routine [facility] [address] [facility] [phone] Herber Coto, DO [address] [place], [place] [phone] Arrived [facility] Comment on above: Arrived Start: 12-27-2023 Influenza vaccination Influenza Vacc ine (#1) [facility] Start: 10-25-2023 Influenza vaccination Influenza Vacc ine (#1) [facility] Comment on above: Postponed from 12/26 (Patient Refused) Start: 10-25-2023 Screening for malign ant neoplasm of cervix [facility] Start: 07-17-2023 End: 07-17-2023 Patient encounter procedure 07/17/2023 8:00 AM EDT Office Visit [facility] [address] [place] [phone] Tori Martinez, HERRERA [address] [place] [address] [facility] Start: 2014 Screening for malign ant neoplasm of cervix Pap Smear [facility] CHLAMYDIA TRACHOMATI S (GENITO/STI) CHLAMYDIA TRACHOMATIS (GENITO/STI) Lab Routine Screen for STD (sexually transmitted disease) Vaginal discharge Ordered: 02/10/2024 [facility] Comment on above: Ordered: 02/10/2024 Cytology Cervical or vaginal smear or scraping study Pap Smear Pathology and Cytology Routine Well woman exam with routine gynecological exam Ordered: 02/10/2024 [facility] Comment on above: Ordered: 02/10/2024 Human papilloma viru s DNA [Presence] in Unspecified specimen by Probe with amplification HPV DNA probe, amplified Microbiology Routine Well woman exam with routine gynecological exam Ordered: 02/10/2024 [facility] Comment on above: Ordered: 02/10/2024 Neisseria gonorrhoea e DNA [Presence] in Unspecified specimen by JUAN with probe detection Neisseria gonorrhea DNA probe, direct Lab Routine Screen for STD (sexually transmitted disease) Vaginal discharge Ordered: 02/10/2024 [facility] Comment on above: Ordered: 02/10/2024 SURESWAB(R) ADVANCED VAGINITIS PLUS, TMA SURESWAB(R) ADVANCED VAGINITIS PLUS, TMA Pathology and Cytology Routine Screen for STD (sexually transmitted disease) Vaginal discharge Ordered: 02/10/2024 [facility] Work Phone: Comment on above: Ordered: 02/10/2024 Thyrotropin [Units/volume] in Serum or Plasma TSH Lab Routine Other specified hypothyroidism (CMS/HCC) Ordered: 01/11/2024 [facility] Work Phone: Comment on above: Ordered: 01/11/2024 Thyrotropin [Units/volume] in Serum or Plasma TSH Lab Routine Hypothyroidism, unspecified type (CMS/HCC) Ordered: 04/13/2024 [facility] Comment on above: Ordered: 04/13/2024 Immunizations Immunization Date Immunization Notes Care Provider Byron carlson 05-05-2015 tetanus toxoid, redu catherine diphtheria toxoid, and acellular pertussis vaccine, adsorbed Tori Warchol MANAGER OF INVESTIGATIONS Work Phone: [facility] 02-14-2009 influenza, seasonal, injectable Tori Warchol MANAGER OF INVESTIGATIONS Work Phone: [facility] 02-14-2009 influenza virus vacc ine, unspecified formulation Tori Warchol MANAGER OF INVESTIGATIONS Work Phone: [facility] 12-12-2005 hepatitis A vaccine, unspecified formulation Tori Warchol MANAGER OF INVESTIGATIONS Work Phone: [facility] 12-12-2005 tetanus toxoid, redu catherine diphtheria toxoid, and acellular pertussis vaccine, adsorbed Tori Warchol MANAGER OF INVESTIGATIONS Work Phone: [facility] 11-19-1998 diphtheria, tetanus toxoids and acellular pertussis vaccine, unspecified formulation Tori Warchol MANAGER OF INVESTIGATIONS Work Phone: [facility] 11-19-1998 measles, mumps and rubella virus vaccine Tori Warchol MANAGER OF INVESTIGATIONS Work Phone: [facility] 11-19-1998 trivalent poliovirus vaccine, live, oral Tori Warchol MANAGER OF INVESTIGATIONS Work Phone: [facility] 09-14-1995 diphtheria, tetanus toxoids and acellular pertussis vaccine, unspecified formulation Tori Warchol MANAGER OF INVESTIGATIONS Work Phone: [facility] 09-14-1995 haemophilus influenz ae type b vaccine, conjugate unspecified formulation Tori Warchol MANAGER OF INVESTIGATIONS Work Phone: [facility] 11-20-1994 DTP-Haemophilus influenzae type b conjugate vaccine Tori Warchol MANAGER OF INVESTIGATIONS Work Phone: [facility] 11-20-1994 hepatitis B vaccine, pediatric or pediatric/adolescent dosage Tori Warchol MANAGER OF INVESTIGATIONS Work Phone: [facility] 11-20-1994 measles, mumps and rubella virus vaccine Tori Warchol MANAGER OF INVESTIGATIONS Work Phone: [facility] 11-20-1994 trivalent poliovirus vaccine, live, oral Tori Warchol MANAGER OF INVESTIGATIONS Work Phone: [facility] 09-18-1994 DTP-Haemophilus influenzae type b conjugate vaccine Tori Warchol MANAGER OF INVESTIGATIONS Work Phone: [facility] 09-18-1994 hepatitis B vaccine, pediatric or pediatric/adolescent dosage Tori Warchol MANAGER OF INVESTIGATIONS Work Phone: [facility] 09-18-1994 trivalent poliovirus vaccine, live, oral Tori Gomezchol MANAGER OF INVESTIGATIONS Work Phone: [facility] 1993 diphtheria, tetanus toxoids and pertussis vaccine Tori Jasonchol MANAGER OF INVESTIGATIONS Work Phone: [facility] 1993 haemophilus influenz ae type b vaccine, conjugate unspecified formulation Tori Jasonchol MANAGER OF INVESTIGATIONS Work Phone: [facility] 1993 hepatitis B vaccine, pediatric or pediatric/adolescent dosage Tori Jasonchol MANAGER OF INVESTIGATIONS Work Phone: [facility] 1993 trivalent poliovirus vaccine, live, oral Tori Jasonchol MANAGER OF INVESTIGATIONS Work Phone: [facility] Payers Date Payer Category Payer Self-pay [id number] 2023 Medicaid [id number] 2022 Blue Cross Blue Shield [id number] 2022 Unknown BCBS BCBS xxxxxx [id number] 2022-Present [phone] [address] [place] [address] [id number] 2017 Private Health Insurance [id number] 1993 Unknown [id number] 2.16.840.1.601849.3.579.2.1 76 1993 Unknown [id number] 2.16.840.1.958553.3.579.2.1 76 1993 Unknown [id number] 2.16.840.1.806255.3.579.2.5 93 1993 Unknown [id number] 2.16.840.1.167804.3.579.2.5 93 1993 Unknown [id number] 2.16.840.1.019161.3.579.2.5 93 1993 Unknown [id number] 2.16.840.1.205816.3.579.2.5 93 1993 Unknown [id number] 2.16.840.1.761961.3.579.2.5 93 1993 Unknown [id number] 2.16.840.1.114280.3.579.2.5 93 1993 Unknown [id number] 2.16.840.1.358895.3.579.2.5 93 1993 Unknown [id number] 2.16.840.1.323540.3.579.2.5 93 1993 Unknown [id number] 2.16.840.1.200044.3.579.2.5 93 1993 Unknown [id number] 2.16.840.1.372223.3.579.2.5 93 1993 Unknown [id number] 2.16.840.1.927274.3.579.2.5 93 1993 Unknown [id number] 2.16.840.1.342381.3.579.2.5 93 1993 Unknown [id number] 2.16.840.1.498660.3.579.2.5 93 1993 Unknown [id number] 2.16.840.1.179570.3.579.2.5 93 1993 Unknown [id number] 2.16.840.1.544339.3.579.2.1 259 1993 Unknown [id number] 2.16.840.1.506691.3.579.2.1 259 1993 Unknown [id number] 2.16.840.1.971565.3.579.2.1 259 1993 Unknown [id number] 2.16.840.1.303634.3.579.2.1 259 1993 Unknown [id number] 2.16.840.1.779707.3.579.2.1 259 1993 Unknown [id number] 2.16.840.1.823215.3.579.2.1 259 1993 Unknown [id number] 2.16.840.1.510977.3.579.2.1 259 1993 Unknown [id number] 2.16.840.1.709859.3.579.2.1 259 1993 Unknown [id number] 2.16.840.1.302017.3.579.2.1 259 1993 Unknown [id number] 2.16.840.1.366159.3.579.2.1 259 1993 Unknown [id number] 2.16.840.1.233979.3.579.2.1 259 1993 Unknown [id number] 2.16.840.1.359911.3.579.2.1 259 1993 Unknown [id number] 2.16.840.1.602923.3.579.2.1 259 1959 Self-pay [id number] 1959 Unknown [id number] 1959 Unknown [id number] 1959 Unknown [id number] Unknown [id number] 2.16.840.1.228492.3.579.2.5 93 Unknown HCAP/HFA/FAP Active [id number] Unknown [id number] 2.16.840.1.199430.3.579.2.5 31 Social History Date Type Detail Facility Start: 08-27-2016 End: 09-25-2022 Tobacco smoking status NDIS Never smoked tobacco [facility] care Start: 09-25-2022 Tobacco use and exposure Smoke less tobacco non-user [facility] Start: 04-16-2023 End: 04-13-2024 Alcohol intake [...] Gender identity Identifies as female gender (finding) [facility] Start: 10-08-2023 [facility] Start: 05-03-2024 End: 05-25-2024 Alcoholic beverage intake Ex-drinker (finding) [facility] Equipment Procedure Code Equipment Code Equipment Origin al Text Equipment Identifier Dates 1 strip by In Vi tro route Daily Use in the morning prior to breakfast, 1 hour after each meal for a total of 4times daily. [id number] Start: 03-21-2024 End: 04-20-2024 1 each by In Vit ro route Daily Use to check FSBS four times daily [id number] Start: 03-21-2024 End: 04-20-2024 Clinical Notes 06-02-2023 [...] esophagitis 09/01/2022 Moderate persistent asthma without complication ([facility]) 09/01/2022 Hypothyroidism, unspecified ([facility]) 03/02/2020 Moderate asthma ([facility]) 01/11/2024 30 weeks gestation of 04/21/2024 Third trimester 04/21/2024 Resolved Ambulatory Problems Diagnosis Date Noted Acquired hypothyroidism ([facility]) 09/01/2022 Allergic rhinitis 09/01/2022 Amenorrhea 09/01/2022 Asthma without status asthmaticus ([facility]) 09/01/2022 Attention deficit hyperactivity disorder ([facility]) 09/01/2022 Asthma affecting , antepartum ([facility]) 09/01/2022 Binge eating disorder 09/01/2022 Difficulty concentrating [...] Acid reflux ADHD (attention deficit hyperactivity disorder) ([facility]/HCC) Asthma ([facility]/HCC) GERD (gastroesophageal reflux disease) Hypothyroid (CMS/HCC) Lactose intolerance Marijuana use Migraine (CMS/HCC) Mild persistent asthma, uncomplicated ([facility]) Supervision of normal Thyroid disease ([facility]) HISTORY PAST MEDICAL HISTORY SOCIAL HISTORY Past Medical History: Diagnosis Date Acid reflux ADHD (attention deficit hyperactivity disorder) ([facility]/HCC) Asthma (CMS/HCC) Asthma affecting , antepartum ([facility]) GERD (gastroesophageal reflux disease) Hypothyroid ([facility]) Lactose intolerance Marijuana use Migraine ([facility]) Mild persistent asthma, uncomplicated ([facility]) MTHFR mutation Seasonal allergies Supervision of normal Thyroid disease ([facility]) Social History Tobacco Use Smoking status: Never [...] 2008 Plica band removal, left [place]roscopy [place] BREAST REDUCTION 10/2018 TONSILLECTOMY 1999 REVIEW OF [...] nursing note reviewed. Exam conducted with a mechanism inspector present. Vitals: Estimated body mass index is [...] Herber Coto DO documented in this encounter [facility] 05-09-2024 History of Presen t illness Narrative [...] to check FSBS. Blood Glucose Monitoring Suppl ([employer] Glucometer) w/Device kit 1 kit, Does not [...] esophagitis 09/01/2022 Moderate persistent asthma without complication ([facility]) 09/01/2022 Hypothyroidism, unspecified ([facility]) 03/02/2020 Moderate asthma ([facility]) 01/11/2024 30 weeks gestation of 04/21/2024 Third trimester 04/21/2024 Resolved Ambulatory Problems Diagnosis Date Noted Acquired hypothyroidism ([facility]) 09/01/2022 Allergic rhinitis 09/01/2022 Amenorrhea 09/01/2022 Asthma without status asthmaticus ([facility]) 09/01/2022 Attention deficit hyperactivity disorder ([facility]) 09/01/2022 Asthma affecting , antepartum ([facility]) 09/01/2022 Binge eating disorder 09/01/2022 Difficulty concentrating 09/01/2022 Irregular menstrual cycle 09/01/2022 Left sided sciatica 09/01/2022 Insomnia 09/01/2022 Migraines ([facility]) 09/01/2022 Metallic taste 09/01/2022 Mild persistent asthma without complication ([facility]) 09/01/2022 MTHFR mutation 09/01/2022 Nondependent cannabis abuse 09/01/2022 Other chronic pain 09/01/2022 Seasonal allergies 09/01/2022 Skin sensation disturbance 09/01/2022 Transitory mood disturbance 09/01/2022 Verruca plantaris 09/01/2022 Past Medical History: Diagnosis Date Acid reflux ADHD (attention deficit hyperactivity disorder) ([facility]) Asthma ([facility]) GERD (gastroesophageal reflux disease) Hypothyroid ([facility]) Lactose intolerance Marijuana use Migraine ([facility]) Mild persistent asthma, uncomplicated ([facility]) Supervision of normal Thyroid disease ([facility]) HISTORY PAST MEDICAL HISTORY SOCIAL HISTORY Past Medical History: Diagnosis Date Acid reflux ADHD (attention deficit hyperactivity disorder) ([facility]) Asthma ([facility]) Asthma affecting , antepartum ([facility]) GERD (gastroesophageal reflux disease) Hypothyroid ([facility]) Lactose intolerance Marijuana use Migraine ([facility]) Mild persistent asthma, uncomplicated ([facility]) MTHFR mutation Seasonal allergies Supervision of normal Thyroid disease ([facility]) Social History Tobacco Use Smoking status: Never [...] 2008 Plica band removal, [place]rosc[place] BREAST REDUCTION 10/2018 TONSILLECTOMY 1998 REVIEW OF [...] of: FERN Luis documented in this encounter [facility] 05-03-2024 History of Presen t illness Narrative [...] each, Rfl: 3 Blood Glucose Monitoring Suppl ([employer] Glucometer) w/Device kit, 1 kit Daily Use [...] not improve . documented in this encounter [facility] 05-03-2024 Instructions Tori Martinez NP - 05/03/2024 4:40 PM EST PATIENT EDUCATION: ER follow-up The patient was seen today in follow-up of recent hospital ER/UC visit. All available records/labs/diagnostics were reviewed and discussed with the patient. ER/UC discharge meds were reviewed. Any changes to plan are noted above. documented in this encounter [facility] 04-21-2024 History of Presen t illness Narrative [...] esophagitis 09/01/2022 Moderate persistent asthma without complication ([facility]) 09/01/2022 Hypothyroidism, unspecified ([facility]) 03/02/2020 Moderate asthma ([facility]) 01/11/2024 30 weeks gestation of 04/21/2024 Third trimester 04/21/2024 Resolved Ambulatory Problems Diagnosis Date Noted Acquired hypothyroidism ([facility]) 09/01/2022 Allergic rhinitis 09/01/2022 Amenorrhea 09/01/2022 Asthma without status asthmaticus ([facility]) 09/01/2022 Attention deficit hyperactivity disorder ([facility]) 09/01/2022 Asthma affecting , antepartum ([facility]) 09/01/2022 Binge eating disorder 09/01/2022 Difficulty concentrating 09/01/2022 Irregular menstrual cycle 09/01/2022 Left sided sciatica 09/01/2022 Insomnia 09/01/2022 Migraines ([facility]) 09/01/2022 Metallic taste 09/01/2022 Mild persistent asthma without complication ([facility]) 09/01/2022 MTHFR mutation 09/01/2022 Nondependent cannabis abuse 09/01/2022 Other chronic pain 09/01/2022 Seasonal allergies 09/01/2022 Skin sensation disturbance 09/01/2022 Transitory mood disturbance 09/01/2022 Verruca plantaris 09/01/2022 Past Medical History: Diagnosis Date Acid reflux ADHD (attention deficit hyperactivity disorder) ([facility]) Asthma ([facility]) GERD (gastroesophageal reflux disease) Hypothyroid (CMS/HCC) Lactose intolerance Marijuana use Migraine (CMS/HCC) Mild persistent asthma, uncomplicated ([facility]/HCC) Supervision of normal Thyroid disease ([facility]) HISTORY PAST MEDICAL HISTORY SOCIAL HISTORY Past Medical History: Diagnosis Date Acid reflux ADHD (attention deficit hyperactivity disorder) (CMS/HCC) Asthma ([facility]/HCC) Asthma affecting , antepartum ([facility]/HCC) GERD (gastroesophageal reflux disease) Hypothyroid (CMS/HCC) Lactose intolerance Marijuana use Migraine ([facility]/HCC) Mild persistent asthma, uncomplicated ([facility]) MTHFR mutation Seasonal allergies Supervision of normal Thyroid disease ([facility]) Social History Tobacco Use Smoking status: Never [...] 2008 Plica band removal, [place] BREAST REDUCTION 10/2018 TONSILLECTOMY 1998 REVIEW OF [...] nursing note reviewed. Exam conducted with a mechanism inspector present. Vitals: Estimated body mass index is [...] Herber Coto DO documented in this encounter [facility] 04-13-2024 History of Presen t illness Narrative [...] esophagitis 09/01/2022 Moderate persistent asthma without complication ([facility]) 09/01/2022 Hypothyroidism, unspecified ([facility]) 03/02/2020 Moderate asthma ([facility]) 01/11/2024 Resolved Ambulatory Problems Diagnosis Date Noted Acquired hypothyroidism ([facility]) 09/01/2022 Allergic rhinitis 09/01/2022 Amenorrhea 09/01/2022 Asthma without status asthmaticus ([facility]) 09/01/2022 Attention deficit hyperactivity disorder ([facility]/HCC) 09/01/2022 Asthma affecting , antepartum ([facility]) 09/01/2022 Binge eating disorder 09/01/2022 Difficulty concentrating 09/01/2022 Irregular menstrual cycle 09/01/2022 Left sided sciatica 09/01/2022 Insomnia 09/01/2022 Migraines ([facility]) 09/01/2022 Metallic taste 09/01/2022 Mild persistent asthma without complication ([facility]) 09/01/2022 MTHFR mutation 09/01/2022 Nondependent cannabis abuse 09/01/2022 Other chronic pain 09/01/2022 Seasonal allergies 09/01/2022 Skin sensation disturbance 09/01/2022 Transitory mood disturbance 09/01/2022 Verruca plantaris 09/01/2022 Past Medical History: Diagnosis Date Acid reflux ADHD (attention deficit hyperactivity disorder) ([facility]) Asthma ([facility]) GERD (gastroesophageal reflux disease) Hypothyroid ([facility]) Lactose intolerance Marijuana use Migraine ([facility]) Mild persistent asthma, uncomplicated ([facility]) Supervision of normal Thyroid disease ([facility]) HISTORY PAST MEDICAL HISTORY SOCIAL HISTORY Past Medical History: Diagnosis Date Acid reflux ADHD (attention deficit hyperactivity disorder) ([facility]) Asthma ([facility]) Asthma affecting , antepartum ([facility]) GERD (gastroesophageal reflux disease) Hypothyroid ([facility]) Lactose intolerance Marijuana use Migraine ([facility]) Mild persistent asthma, uncomplicated ([facility]) MTHFR mutation Seasonal allergies Supervision of normal Thyroid disease ([facility]) Social History Tobacco Use Smoking status: Never [...] 2008 Plica band removal, [place] BREAST REDUCTION 10/2018 TONSILLECTOMY 1998 REVIEW OF [...] of: FERN Luis documented in this encounter [facility] 04-06-2024 History of Presen t illness Narrative [...] esophagitis 09/01/2022 Moderate persistent asthma without complication ([facility]) 09/01/2022 Hypothyroidism, unspecified ([facility]) 03/02/2020 Moderate asthma ([facility]) 01/11/2024 Resolved Ambulatory Problems Diagnosis Date Noted Acquired hypothyroidism ([facility]) 09/01/2022 Allergic rhinitis 09/01/2022 Amenorrhea 09/01/2022 Asthma without status asthmaticus ([facility]) 09/01/2022 Attention deficit hyperactivity disorder ([facility]) 09/01/2022 Asthma affecting , antepartum ([facility]) 09/01/2022 Binge eating disorder 09/01/2022 Difficulty concentrating [...] Acid reflux ADHD (attention deficit hyperactivity disorder) ([facility]) Asthma ([facility]) GERD (gastroesophageal reflux disease) Hypothyroid ([facility]) Lactose intolerance Marijuana use Migraine ([facility]/HCC) Mild persistent asthma, uncomplicated ([facility]) Supervision of normal Thyroid disease ([facility]) HISTORY PAST MEDICAL HISTORY SOCIAL HISTORY Past Medical History: Diagnosis Date Acid reflux ADHD (attention deficit hyperactivity disorder) ([facility]/HCC) Asthma ([facility]/HCC) Asthma affecting , antepartum ([facility]) GERD (gastroesophageal reflux disease) Hypothyroid ([facility]) Lactose intolerance Marijuana use Migraine ([facility]/HCC) Mild persistent asthma, uncomplicated ([facility]) MTHFR mutation Seasonal allergies Supervision of normal Thyroid disease ([facility]) Social History Tobacco Use Smoking status: Never [...] 2008 Plica band removal, [place] BREAST REDUCTION 10/2018 TONSILLECTOMY 1998 REVIEW OF [...] of: FERN Luis documented in this encounter [facility] 03-09-2024 History of Presen t illness Narrative [...] esophagitis 09/01/2022 Moderate persistent asthma without complication ([facility]) 09/01/2022 Hypothyroidism, unspecified ([facility]) 03/02/2020 Moderate asthma ([facility]) 01/11/2024 Resolved Ambulatory Problems Diagnosis Date Noted Acquired hypothyroidism ([facility]) 09/01/2022 Allergic rhinitis 09/01/2022 Amenorrhea 09/01/2022 Asthma without status asthmaticus ([facility]) 09/01/2022 Attention deficit hyperactivity disorder ([facility]) 09/01/2022 Asthma affecting , antepartum ([facility]) 09/01/2022 Binge eating disorder 09/01/2022 Difficulty concentrating 09/01/2022 Irregular menstrual cycle 09/01/2022 Left sided sciatica 09/01/2022 Insomnia 09/01/2022 Migraines ([facility]) 09/01/2022 Metallic taste 09/01/2022 Mild persistent asthma without complication ([facility]) 09/01/2022 MTHFR mutation 09/01/2022 Nondependent cannabis abuse 09/01/2022 Other chronic pain 09/01/2022 Seasonal allergies 09/01/2022 Skin sensation disturbance 09/01/2022 Transitory mood disturbance 09/01/2022 Verruca plantaris 09/01/2022 Past Medical History: Diagnosis Date Acid reflux ADHD (attention deficit hyperactivity disorder) ([facility]) Asthma ([facility]) GERD (gastroesophageal reflux disease) Hypothyroid ([facility]) Lactose intolerance Marijuana use Migraine ([facility]) Mild persistent asthma, uncomplicated ([facility]) Supervision of normal Thyroid disease ([facility]) HISTORY PAST MEDICAL HISTORY SOCIAL HISTORY Past Medical History: Diagnosis Date Acid reflux ADHD (attention deficit hyperactivity disorder) ([facility]) Asthma ([facility]) Asthma affecting , antepartum ([facility]) GERD (gastroesophageal reflux disease) Hypothyroid ([facility]) Lactose intolerance Marijuana use Migraine ([facility]) Mild persistent asthma, uncomplicated ([facility]) MTHFR mutation Seasonal allergies Supervision of normal Thyroid disease ([facility]) Social History Tobacco Use Smoking status: Never [...] 2008 Plica band removal, [place] BREAST REDUCTION 10/2018 TONSILLECTOMY 1998 REVIEW OF [...] of: FERN Luis documented in this encounter [facility] 03-09-2024 Miscellaneous Notes Addended by: NIALL CONSTANTINO on: 03/10/2024 09:01 AM Modules accepted: Orders documented in this encounter [facility] 03-09-2024 Note Addended by: NIALL CLEVELAND on: 03/10/2024 09:01 AM Modules accepted: Orders [facility] 03-09-2024 Note Addended by: NIALL CLEVELAND on: 03/10/2024 09:01 AM Modules accepted: Orders [facility] 02-10-2024 History of Presen t illness Narrative [...] esophagitis 09/01/2022 Moderate persistent asthma without complication ([facility]) 09/01/2022 Hypothyroidism, unspecified ([facility]) 03/02/2020 Moderate asthma ([facility]) 01/11/2024 Resolved Ambulatory Problems Diagnosis Date Noted Acquired hypothyroidism ([facility]) 09/01/2022 Allergic rhinitis 09/01/2022 Amenorrhea 09/01/2022 Asthma without status asthmaticus ([facility]) 09/01/2022 Attention deficit hyperactivity disorder ([facility]) 09/01/2022 Asthma affecting , antepartum ([facility]) 09/01/2022 Binge eating disorder 09/01/2022 Difficulty concentrating 09/01/2022 Irregular menstrual cycle 09/01/2022 Left sided sciatica 09/01/2022 Insomnia 09/01/2022 Migraines ([facility]) 09/01/2022 Metallic taste 09/01/2022 Mild persistent asthma without complication ([facility]) 09/01/2022 MTHFR mutation 09/01/2022 Nondependent cannabis abuse 09/01/2022 Other chronic pain 09/01/2022 Seasonal allergies 09/01/2022 Skin sensation disturbance 09/01/2022 Transitory mood disturbance 09/01/2022 Verruca plantaris 09/01/2022 Past Medical History: Diagnosis Date Acid reflux ADHD (attention deficit hyperactivity disorder) ([facility]) Asthma ([facility]) GERD (gastroesophageal reflux disease) Hypothyroid ([facility]) Lactose intolerance Marijuana use Migraine ([facility]) Mild persistent asthma, uncomplicated ([facility]) Supervision of normal Thyroid disease ([facility]) HISTORY PAST MEDICAL HISTORY SOCIAL HISTORY Past Medical History: Diagnosis Date Acid reflux ADHD (attention deficit hyperactivity disorder) ([facility]) Asthma ([facility]) Asthma affecting , antepartum ([facility]) GERD (gastroesophageal reflux disease) Hypothyroid ([facility]) Lactose intolerance Marijuana use Migraine ([facility]) Mild persistent asthma, uncomplicated ([facility]) MTHFR mutation Seasonal allergies Supervision of normal Thyroid disease ([facility]) Social History Tobacco Use Smoking status: Never [...] 2008 Plica band removal, [place] BREAST REDUCTION 10/2018 TONSILLECTOMY 1998 REVIEW OF [...] Herber Coto DO documented in this encounter [facility] 01-11-2024 History of Presen t illness Narrative [...] esophagitis 09/01/2022 Moderate persistent asthma without complication ([facility]) 09/01/2022 Hypothyroidism, unspecified ([facility]) 03/02/2020 Resolved Ambulatory Problems Diagnosis Date Noted Acquired hypothyroidism ([facility]) 09/01/2022 Allergic rhinitis 09/01/2022 Amenorrhea 09/01/2022 Asthma without status asthmaticus ([facility]) 09/01/2022 Attention deficit hyperactivity disorder ([facility]) 09/01/2022 Asthma affecting , antepartum ([facility]) 09/01/2022 Binge eating disorder ([facility]) 09/01/2022 Difficulty concentrating 09/01/2022 Irregular menstrual cycle 09/01/2022 Left sided sciatica 09/01/2022 Insomnia 09/01/2022 Migraines ([facility]) 09/01/2022 Metallic taste 09/01/2022 Mild persistent asthma without complication ([facility]) 09/01/2022 MTHFR mutation 09/01/2022 Nondependent cannabis abuse 09/01/2022 Other chronic pain 09/01/2022 Seasonal allergies 09/01/2022 Skin sensation disturbance 09/01/2022 Transitory mood disturbance 09/01/2022 Verruca plantaris 09/01/2022 Past Medical History: Diagnosis Date Acid reflux ADHD (attention deficit hyperactivity disorder) ([facility]) Asthma ([facility]) GERD (gastroesophageal reflux disease) Hypothyroid ([facility]) Lactose intolerance Marijuana use Migraine ([facility]) Mild persistent asthma, uncomplicated ([facility]) Supervision of normal Thyroid disease ([facility]) HISTORY PAST MEDICAL HISTORY SOCIAL HISTORY Past Medical History: Diagnosis Date Acid reflux ADHD (attention deficit hyperactivity disorder) ([facility]) Asthma ([facility]) Asthma affecting , antepartum ([facility]) GERD (gastroesophageal reflux disease) Hypothyroid ([facility]) Lactose intolerance Marijuana use Migraine ([facility]) Mild persistent asthma, uncomplicated ([facility]) MTHFR mutation Seasonal allergies Supervision of normal Thyroid disease ([facility]) Social History Tobacco Use Smoking status: Never [...] 2008 Plica band removal, [place] BREAST REDUCTION 10/2018 TONSILLECTOMY 1998 REVIEW OF [...] nursing note reviewed. Exam conducted with a mechanism inspector present. Vitals: Estimated body mass index is [...] or undercooked meat, and stay away from [facility]. Patient has been consulted regarding any [...] done she will reach out to office. Title Agent will be notified at time of delivery [...] . Informed patient since she sees a Machine [employer] Units Supervisor to schedule appointment to make sure asthma is controlled during . Patient is currently taking [employer] Chewable kids vitamins. Patient is taking 2 [...] Herber Coto DO documented in this encounter [facility] 06-04-2023 Telephone encount er Note Sent [facility] 06-04-2023 Miscellaneous Notes Formattin g of this note might be different from the original. Sent Patient requesting refill/[place] documented in this encounter [facility] 06-02-2023 Telephone encount er Note Patient requesting refill/[place] [facility] Evaluation note Diagnosis Attention deficit hyperactivity disorder (ADHD), combined type (CMS/HCC) [facility] noteNo assessment information [facility] Work Phone: Evaluation note* [...] section and content) DATE CREATED AUTHOR 11/18/2018 [facility] DATE CREATED AUTHOR AUTHOR'S ORGANIZ ATION 11/26/2018 [facility] DATE CREATED AUTHOR AUTHOR'S ORGANIZ ATION 09/09/2022 [facility] DATE CREATED AUTHOR AUTHOR'S ORGANIZ ATION 03/16/2024 [facility] DATE CREATED AUTHOR AUTHOR'S ORGANIZ ATION 05/27/2024 [facility] Special[facility] EPIC Reason for Visit (unrecogniz ed section and content) Reason Onset Date Comments Med Refill 06/02/2023 Reason Comments Routine Visit Care Teams (unrecognized sec tion and content) Product Craftsman Relationship Specialty Start Date End Date Carlos Alberto Coleman MD [address] [place] [address] PCP - General Family Medicine 09/24/22 Tori Martinez NP [address] [place] [address] Nurse Practitioner Family Medicine 09/24/22 Sofie Gr NP [address] [place] [address] Nurse Practitioner Pulmonary Disease 04/14/23 Team Status: Active Member Role Status Dates Carlos Alberto Coleman MD Primary Care Provider Active Team Status: Inactive Member Role Status Dates Carlos Alberto Coleman MD Primary Care Provider Active S tart: July 13, 2023 End: July 13, 2023 Sofie Gr NP-C Attending Provider Active Start: July 13, 2023 End: July 13, 2023 Product Craftsman Relationship Specialty Start Date End Date Carlos Alberto Coleman MD [address] [place] [address] PCP - General Family Medicine 09/24/22 Tori Martinez NP [address] [place] [address] PCP - [employer] 05/28/23 Tori Martinez NP [address] [place] [address] Nurse Practitioner Family Medicine 09/24/22 Sofie Gr NP [address] [place] [address] Nurse Practitioner Pulmonary Disease 04/14/23 Product Craftsman Relationship Specialty Start Date End Date Carlos Alberto Coleman MD [address] [place] [address] PCP - General Family Medicine 09/24/22 Tori Martinez NP [address] [place] [address] PCP - [employer] 05/28/23 Tori Martinez NP [address] [place] [address] Nurse Practitioner Family Medicine 09/24/22 Sofie Gr NP [address] [place] [address] Nurse Practitioner Pulmonary Disease 04/14/23 Product Craftsman Relationship Specialty Start Date End Date Carlos Alberto Coleman MD [address] [place] [id number] PCP - General Family Medicine 09/24/22 Tori Martinez, HERRERA [address] [place] [id number] PCP - [employer] 05/28/23 Tori Martinez NP [address] [place] [id number] Nurse Practitioner Family Medicine 09/24/22 Sofie Gr NP [address] [place] [phone] Nurse Practitioner Pulmonary Disease 04/14/23 Product Craftsman Relationship Specialty Start Date End Date Carlos Alberto Coleman MD [address] [place] [place] [id number] PCP - General Family Medicine 09/24/22 Tori Martinez NP [address] [place] [id number] PCP - [employer] 05/28/23 Tori Martinez NP [address] [place] [address] Nurse Practitioner Family Medicine 09/24/22 Sofie Gr NP [address] [place] [phone] Nurse Practitioner Pulmonary Disease 04/14/23 Product Craftsman Relationship Specialty Start Date End Date Carlos Alberto Coleman MD [address] [place] [address] PCP - General Family Medicine 09/24/22 Tori Martinez, HERRERA [address] [place] [address] PCP - [employer] 05/28/23 Tori Martinez NP [address] [place] [address] Nurse Practitioner Family Medicine 09/24/22 Sofie Gr NP [address] [place] [id number] Nurse Practitioner Pulmonary Disease 04/14/23 Product Craftsman Relationship Specialty Start Date End Date Carlos Alberto Coleman MD [address] [place] [id number] PCP - General Family Medicine 09/24/22 Tori Martinez NP [address] [place] [id number] PCP - [employer] 05/28/23 Tori Martinez NP [address] [place] [address] Nurse Practitioner Family Medicine 09/24/22 Sofie Gr NP [address] [place] [phone] Nurse Practitioner Pulmonary Disease 04/14/23 Product Craftsman Relationship Specialty Start Date End Date Carlos Alberto Coleman MD [address] [place] [address] PCP - General Family Medicine 09/24/22 Tori Martinez NP [address] [place] [address] PCP - [employer] 05/28/23 Tori Martinez NP [address] [place] [address] Nurse Practitioner Family Medicine 09/24/22 Sofie Gr NP [address] [place] [phone] Nurse Practitioner Pulmonary Disease 04/14/23 Product Craftsman Relationship Specialty Start Date End Date Carlos Alberto Coleman MD [address] [place] [address] PCP - General Family Medicine 09/24/22 Tori Martinez NP [address] [place] [address] PCP - [employer] 05/28/23 Tori Martinez NP [address] [place] [address] Nurse Practitioner Family Medicine 09/24/22 Sofie Gr NP [address] [place] [phone] Nurse Practitioner Pulmonary Disease 04/14/23 Product Craftsman Relationship Specialty Start Date End Date Carlos Alberto Coleman MD [address] [place] [address] PCP - General Family Medicine 09/24/22 Tori Martinez NP [address] [place] [address] PCP - [employer] 05/28/23 Tori Martinez NP [address] [place] [address] Nurse Practitioner Family Medicine 09/24/22 Sofie Gr NP [address] [place] [phone] Nurse Practitioner Pulmonary Disease 04/14/23 Product Craftsman Relationship Specialty Start Date End Date Carlos Alberto Coleman MD [address] [place] [address] PCP - General Family Medicine 09/24/22 Tori Martinez NP [address] [place] [address] PCP - [employer] 05/28/23 Tori Martinez NP [address] [place] [address] Nurse Practitioner Family Medicine 09/24/22 Sofie Gr NP [address] [place] [phone] Nurse Practitioner Pulmonary Disease 04/14/23 Product Craftsman Relationship Specialty Start Date End Date Carlos Alberto Coleman MD [address] [place] [address] PCP - General Family Medicine 09/24/22 Tori Martinez NP [address] [place] [address] PCP - [employer] 05/28/23 Tori Martinez NP [address] [place] [address] Nurse Practitioner Family Medicine 09/24/22 Sofie Gr NP [address] [place] [phone] Nurse Practitioner Pulmonary Disease 04/14/23 Product Craftsman Relationship Specialty Start Date End Date Carlos Alberto Coleman MD [address] [place], [facility] PCP - General Family Medicine 09/24/22 Tori Martinez NP [address] [place] [address] PCP - [employer] 05/28/23 Tori Martinez NP [address] [place] [address] Nurse Practitioner Family Medicine 09/24/22 Sofie Gr NP [address] [place] [phone] Nurse Practitioner Pulmonary Disease 04/14/23 Product Craftsman Relationship Specialty Start Date End Date Carlos Alberto Coleman MD [address] [place] [address] PCP - General Family Medicine 09/24/22 Tori Martinez NP [address] [place] [address] PCP - [facility] 05/28/23 Tori Martinez NP [address] [place] [address] Nurse Practitioner Family Medicine 09/24/22 Sofie Gr NP [address] [place] [phone] Nurse Practitioner Pulmonary Disease 04/14/23 Product Craftsman Relationship Specialty Start Date End Date Carlos Alberto Coleman MD [address] [place] [address] PCP - General [facility] Medicine 09/24/22 Tori Martinez NP [address] [place] [address] PCP - [facility] 05/28/23 Tori Martinez NP [address] [place] [address] Nurse Practitioner Family Medicine 09/24/22 Sofie Gr NP [address] [place] [address] Nurse Practitioner Pulmonary Disease 04/14/23 Goals (unrecognized [...] BE BASED ON THE PRIMARY CLINICAL RECORDS. [facility]. provides no warranty or guarantee of the accuracy or completeness of information in this document.
== END 2024-05-30 21:48 | disposition home or self-care (01) ==
LOC: LAB 21:47
PROVIDERS: PCP Family Medicine; Visit Provider Obstetrics & Gynecology
DX: Z34.93 Encounter for supervision of normal pregnancy, unspecified, third trimester (principal)
CPT/HCPCS: 36415; 87081

== ENCOUNTER 2024-06-02 00:20 | Outpatient (OUT) | payer BC, MEDICAID, SELFPAY ==
--- OUTSIDE RECORDS SUMMARY | 2024-06-02 00:24 | XMS_ITS | CCD ---
Author Organization [facility] Care Team Providers Care Learning And Development Director Name Role Phone RENEE, MODE R Referring [...] ÁNGEL Attending Unavailable KIEPERT, ÁNGEL Admitting Unavailable PAWNEE, DR DEANNA Lance Consulting Unavailable PAY ., [...] Carlos Alberto Coleman MD Primary Care Provider [phone] Kylee BEHAVIOR ANALYST, Tori Unavailable Maile BEHAVIOR ANALYST, Sofie R Unavailable MD Carlos Alberto Coleman Primary Care Provider HEATHER Gr Attending Provider [phone] Maile BEHAVIOR ANALYST, Sofie R Unavailable [phone] Kylee BEHAVIOR ANALYST, Tori Unavailable Sofie Gr Attending Unavailable Maile, Sofie Charles Admitting Unavailable Carlos Alberto Coleman Primary Care Unavailable NNAMDI, HERBER Attending Unavailable NNAMDI, HERBER Attending Unavailable LAUSESOFIE Attending Unavailable WARCHOL, TORI Attending Unavailable WARCHOL, TORI Attending Unavailable NNAMDI, HERBER Attending Unavailable NNAMDI, HERBER Attending Unavailable DWIGHT, TORI Attending Unavailable DWIGHT, TORI Attending Unavailable DWIGHT, TORI Attending Unavailable NNAMDI, HERBER Attending Unavailable WARCHOL, TORI Attending Unavailable DWIGHT, TORI Attending Unavailable Allergies Allergy Classification Reported Allergen(s) Allergy Type Date of Onset Reaction(s) Facility (1 source) Cefuroxime Drug Allergy 04-04-20 22 [facility] (2 sources) Ciprofloxacin Drug Allergy 04-03-20 16 [facility] (2 sources) Doxycycline Drug Allergy 05-20-19 21 vomiting [facility] (1 source) Flupenthixol Drug Allergy 04-04-20 22 [facility] (20 sources) Cefuroxime Drug Allergy 05-20-19 21 Rash [facility] (20 sources) Ciprofloxacin Drug Allergy 09-02-19 23 Shortness of breath [facility] (20 sources) Ciprofloxacin Drug Allergy 09-02-19 23 Shortness of breath [facility] (20 sources) cloNIDine Drug Allergy 03-14-20 21 [facility] (20 sources) cloNIDine Drug Allergy 09-02-19 23 [facility] (20 sources) Doxycycline Drug Allergy 05-20-19 21 GI intolerance [facility] (20 sources) Gluten Propensity to adverse reactions 11-11-19 19 [facility] (20 sources) Lactose (non-medical use) Allergy to substance 09-02-19 23 [facility] (20 sources) Lactose (non-medical use) Drug Intolerance 11-11-19 19 [facility] (20 sources) Octacosanol Drug Intolerance 11-11-19 19 [facility] (20 sources) Other Allergy to substance 11-11-19 19 [facility] (20 sources) Silver Allergy to substance 09-02-19 23 [facility] (20 sources) Wound Dressing Adhesive Drug Allergy 09-02-19 23 [facility] (1 source) Cefuroxime Drug Allergy 05-20-19 [facility] (1 source) Ciprofloxacin Drug Allergy 05-20-19 [facility] (1 source) Doxycycline Drug Allergy 05-20-19 21 [facility] Medications Current Medications Medication Drug Class(es) Dates Sig (Normalized) Sig (Original) aspirin 81 mg delayed release oral tablet (5 sources) Platelet Aggregation Inhibitor, Nonsteroidal Anti-inflammatory Drug take 1 tablet by mouth once daily aspirin 81 MG EC tablet Take 81 mg by mouth Daily Active Blood Glucose Monitoring Suppl (D-Care Glucometer) w/Device kit (20 sources) Start: 03-21-2024 End: 03-21-2025 Blood Glucose [...] Active isopropyl alcohol 0.7 ml/ml medicated pad (20 sources) Start: Alcohol Swabs (Alcohol Prep Pad) [...] 90 tablet 1 04/16/2023 10/13/2023 Active Magnesium (18 sources) take 1 capsule by mouth once [...] 10/13/2023 Active ondansetron 4 mg oral tablet (18 sources) Serotonin-3 Receptor Antagonist Start: 04-13-2024 take [...] Drug Class(es) Dates Sig (Normalized) Sig (Original) [id number] 200 actuat albuterol 0.09 mg/actuat metered dose [...] of ] 04-13-2024 Episodic Residual codes; unclassified (17 sources) Gestation period, 30 weeks; Translations: [30 [...] Test Name Value Interpretation Reference Range Facility OB BPP W NON-STRESS on 05-31-2024 [place] [address] Ultrasound Report Signed Patient: CECELIA JOHNSON MR#: [id number] : 1995 Acct:[id number] Age/Sex: 28 / F ADM Date: 05/30/24 Loc: US Attending Dr: Herber Coto D.O. Ordering Physician: Herber Coto D.O. Date of Service: 05/30/24 Procedure(s): US OB BPP w non-stress Accession Number(s): [id number] cc: CARLOS ALBERTO COLEMAN ; Herber Coto D.O. [address] [address] Patient Name: CECELIA JOHNSON MRN: [id number]:[id number] date: 1995 Sex: F Assigned Patient Location: [facility] Current Patient Location: US Accession/Order Number: [id number] Exam Date: 05/30/2024 17:24 Report Date: 05/31/2024 09:14 At the request of: HERBER COTO Procedure: US OB BPP w non-stress EXAMINATION: US OB BPP w non-stress HISTORY:GESTATIONAL DIABETES MELLITUS O24.419 COMPARISON: Ultrasound OB biophysical 05/23/2024 TECHNIQUE: Ultrasound biophysical profile was performed in the radiology department. BREATHING MOVEMENTS: 2 GROSS BODY MOVEMENTS: 2 TONE: 2 QUALITATIVE AMNIOTIC FLUID VOLUME: 2 PRESENTATION: CEPHALIC HEART RATE: 135.68 bpm AMNIOTIC FLUID VOLUME: 21.42 cm GESTATIONAL AGE: 35 weeks 4 days US/US OB BPP w non-stress IMPRESSION: 1. Total biophysical profile score: 8 Electronically authenticated by: YAAKOV HOUSER Date: 05/31/2024 09:14 Dictated By: Yaakov Houser M.D. Signed By: 05/31/24916 DD/ 3 TD/TT: [employer] Clerk: [facility] Radiology, Radiologist, MD - 05/31/2024 [place] [address] Ultrasound Report Signed Patient: CECELIA JOHNSON MR#: [id number] : 1995 Acct:[id number] Age/Sex: 28 / F ADM Date: 05/30/24 Loc: US Attending Dr: Herber Coto D.O. Ordering Physician: Herber Coto D.O. Date of Service: 05/30/24 Procedure(s): US OB BPP w non-stress Accession Number(s): [id number] cc: CARLOS ALBERTO COLEMAN ; Herber Coto D.O. The [address] [address] Patient Name: CECELIA JOHNSON MRN: [facility]:[id number] date: 1995 Sex: F Assigned Patient Location: [facility] Current Patient Location: US Accession/Order Number: [id number] Exam Date: 05/30/2024 17:24 Report Date: 05/31/2024 09:14 At the request of: HERBER COTO Procedure: US OB BPP w non-stress EXAMINATION: US OB BPP w non-stress HISTORY:GESTATIONAL DIABETES MELLITUS O24.419 COMPARISON: Ultrasound OB biophysical 05/23/2024 TECHNIQUE: Ultrasound biophysical profile was performed in the radiology department. BREATHING MOVEMENTS: 2 GROSS BODY MOVEMENTS: 2 TONE: 2 QUALITATIVE AMNIOTIC FLUID VOLUME: 2 PRESENTATION: CEPHALIC HEART RATE: 135.68 bpm AMNIOTIC FLUID VOLUME: 21.42 cm GESTATIONAL AGE: 35 weeks 4 days US/US OB BPP w non-stress IMPRESSION: 1. Total biophysical profile score: 8 Electronically authenticated by: YAAKOV HOUSER Date: 05/31/2024 09:14 Dictated By: Yaakov Houser M.D. Signed By: 05/31/24916 DD/ 3 TD/TT: [employer] Clerk: [facility] Radiology Study observation (narrative) [facility] US OB BPP W NON-STRESS Ordered By: Radiologist Radiology on 05-31-2024 [facility] Work Phone: ALL THYROID STIM HORMONEon 0 05-30-2024 TSH Qn 1.826 m[IU]/L [facility] Urinalysis macro (dipstick) panel (U)on 05-25-2024 Bilirubin, UA Negative Negative - 4(70) +++ mg/dL [facility] Blood, UA Negative Negative - 50 Mendel/mcL [facility] Clarity, UA Clear [facility] Color, UA Yellow [facility] Glucose, UA Negative Negative - 1999(110) ++++ mg/dL [facility] Interpretation and review of laboratory results Abnormal [facility] Ketones, UA Positive Negative - 160(16) ++++ mg/dL [facility] Comment on above: trace Leukocytes, UA Positive Negative - 500+++ Leighann/mcL [facility] Comment on above: small Nitrite, UA Negative Negative - Positive [facility] pH, UA 6 5 - 9 [facility] Protein, UA Trace Negative - 2000(20) ++++ mg/dL [facility] Spec Grav, UA 1.03 1 - 1.03 [facility] Urobilinogen, UA 1.0 0.2 - 12 mg/dL [facility] US OB BPP W NON-STRESS on 05-24-2024 [place] [address] Ultrasound Report Signed Patient: CECELIA JOHNSON MR#: [id number] : 1995 Acct:[id number] Age/Sex: 28 / F ADM Date: 05/23/24 Loc: US Attending Dr: Herber Coto D.O. Ordering Physician: Herber Coto D.O. Date of Service: 05/23/24 Procedure(s): US OB BPP w non-stress Accession Number(s): [id number] cc: CARLOS ALBERTO COLEMAN ; Herber Coto D.O. The [place] [id number] Patient Name: CECELIA JOHNSON MRN: [facility]:[id number] date: 1995 Sex: F Assigned Patient Location: [facility] Current Patient Location: Accession/Order Number: [id number] Exam Date: 05/23/2024 19:13 Report Date: 05/24/2024 [...] Dictated By: Yaakov Houser M.D. Signed By: 05/24/24 0427 DD/ 0423 TD/TT: [employer] Clerk: [facility] Radiology, Radiologist, MD - 05/24/2024 The [place] [id number] Ultrasound Report Signed Patient: CECELIA JOHNSON MR#: [id number] : 1995 Acct:[id number] Age/Sex: 28 / F ADM Date: 05/23/24 Loc: US Attending Dr: Herber Coto D.O. Ordering Physician: Herber Coto D.O. Date of Service: 05/23/24 Procedure(s): US OB BPP w non-stress Accession Number(s): [id number] cc: CARLOS ALBERTO COLEMAN ; Herber Coto D.O. The [place] [id number] Patient Name: CECELIA JOHNSON MRN: [id number]:[id number] date: 1995 Sex: F Assigned Patient Location: [facility] Current Patient Location: Accession/Order Number: [id number] Exam Date: 05/23/2024 19:13 Report Date: 05/24/2024 [...] M.D. Signed By: 05/24/24426 DD/ 2 TD/TT: [employer] Clerk: [facility] Radiology Study observation (narrative) [facility] US OB BPP W NON-STRESS Ordered By: Radiologist Radiology on 05-24-2024 [facility] Work Phone: Urinalysis macro (dipstick) panel (U)on 05-09-2024 Bilirubin, UA Negative Negative - 4(70) +++ mg/dL [facility] Blood, UA Negative Negative - 50 Mendel/mcL [facility] Clarity, UA Clear [facility] Color, UA Yellow [facility] Glucose, UA Negative Negative - 1999(110) ++++ mg/dL [facility] Interpretation and review of laboratory results Abnormal [facility] Ketones, UA Negative Negative - 160(16) ++++ mg/dL [facility] Leukocytes, UA Positive Negative - 500+++ Leighann/mcL [facility] Comment on above: small Nitrite, UA Negative Negative - Positive [facility] pH, UA 6 5 - 9 [facility] Protein, UA Negative Negative - 1999(20) ++++ mg/dL [facility] Spec Grav, UA 1.03 1 - 1.03 [facility] Urobilinogen, UA 1.0 0.2 - 12 mg/dL [facility] Urinalysis macro (dipstick) panel (U)on 04-21-2024 Bilirubin, UA Negative Negative - 4(70) +++ mg/dL [facility] Blood, UA Negative Negative - 50 Mendel/mcL [facility] Clarity, UA Clear [facility] Color, UA Light Yellow [facility] Glucose, UA Negative Negative - 1999(110) ++++ mg/dL [facility] Interpretation and review of laboratory results Normal [facility] Ketones, UA Negative Negative - 160(16) ++++ mg/dL [facility] Leukocytes, UA Few Negative - 500+++ Leighann/mcL [facility] Nitrite, UA Negative Negative - Positive [facility] pH, UA 5.5 5 - 9 [facility] Protein, UA Trace Negative - 1999(20) ++++ mg/dL [facility] Spec Grav, UA 1.03 1 - 1.03 [facility] Urobilinogen, UA 0.2 0.2 - 12 mg/dL [facility] Urinalysis macro (dipstick) panel (U)on 04-13-2024 Bilirubin, UA Negative Negative - 4(70) +++ mg/dL [facility] Blood, UA Negative Negative - 50 Mendel/mcL [facility] Clarity, UA Clear [facility] Color, UA Yellow [facility] Glucose, UA Negative Negative - 1999(110) ++++ mg/dL [facility] Interpretation and review of laboratory results Normal [facility] Ketones, UA Negative Negative - 160(16) ++++ mg/dL [facility] Leukocytes, UA Negative Negative - 500+++ Leighann/mcL [facility] Nitrite, UA Negative Negative - Positive [facility] pH, UA 5.5 5 - 9 [facility] Protein, UA Negative Negative - 1999(20) ++++ mg/dL [facility] Spec Grav, UA 1.03 1 - 1.03 [facility] Urobilinogen, UA 0.2 0.2 - 12 mg/dL [facility] Urinalysis macro (dipstick) panel (U)on 04-06-2024 Bilirubin, UA Negative Negative - 4(70) +++ mg/dL [facility] Blood, UA Negative Negative - 50 Mendel/mcL [facility] Clarity, UA Clear [facility] Color, UA Yellow [facility] Glucose, UA Negative Negative - 1999(110) ++++ mg/dL [facility] Interpretation and review of laboratory results Normal [facility] Ketones, UA Negative Negative - 160(16) ++++ mg/dL [facility] Leukocytes, UA Negative Negative - 500+++ Leighann/mcL [facility] Nitrite, UA Negative Negative - Positive [facility] pH, UA 6 5 - 9 [facility] Protein, UA Negative Negative - 1999(20) ++++ mg/dL [facility] Spec Grav, UA 1.015 1 - 1.03 [facility] Urobilinogen, UA 0.2 0.2 - 12 mg/dL [facility] ALL CBC WITH AUTO DIFFon BASOPHILS ABSOLUTE AUTO 0 [facility] Basophils/100 WBC (Bld) 0.2 % 0.2 - 2.0 % [facility] Eosinophils/100 WBC (Bld) 0.7 % Low 0.9 - 7.0 % [facility] Erythrocyte distribution width (RBC) [Ratio] 12.3 % 11.0 - 15.0 % [facility] Hematocrit (Bld) [Volume fraction] 35.3 % Low 36.0 - 48.0 % [facility] Hemoglobin (Bld) [Mass/Vol] 11.8 g/dL Low 12.0 - 16.0 g/dL [facility] IMMATURE GRANULOCYTES ABS AUTO 0.04 High [facility] Immature granulocytes/100 WBC (Bld) 0.5 % 0.0 - 0.5 % [facility] Interpretation and review of laboratory results Abnormal [facility] LYMPHOCYTES ABSOLUTE AUTO 1.5 [facility] Lymphocytes/100 WBC (Bld) 17.1 % Low 20.5 - 60.0 % [facility] MCH (RBC) [Entitic mass] 31.1 pg 26.7 - 34.0 pg [facility] MCHC (RBC) [Mass/Vol] 33.4 g/dL 29.9 - 35.2 g/dL [facility] MCV (RBC) [Entitic vol] 93.1 fL 81.0 - 99.0 fL [facility] MONOCYTES ABSOLUTE AUTO 0.6 [facility] Monocytes/100 WBC (Bld) 7.2 % 1.7 - 12.0 % [facility] NEUTROPHILS ABSOLUTE AUTO 6.5 [facility] Neutrophils/100 WBC (Bld) 74.3 % 43.0 - 75.0 % [facility] Platelet mean volume (Bld) [Entitic vol] 10.6 fL 9.5 - 13.5 fL [facility] TBH EO # 0.1 [facility] TB PLT 178 [facility] RBC 3.79 Low [facility] WBC 8.8 [facility] IGP,APTIMA HPV,AGE GDLNon AGE GDLN ACOG TESTING Note . [facility] Comment on above: TESTS RESULT FLAG UN ITS REF RANGE LAB Clinician Provided Cytology Information Source.............Cervix No. of containers..01 ThinPrep Vial Age Algo ACOG Sonja... FLAG LEGEND: L-Low Normal,H-High Normal,LL-Alert Low,HH-Alert High <-Panic Low,>-Panic High,A-Abnormal,AA-Critical Abnormal Performed at: 01 =[address] [address] Radha Browne MD, HPV APTIMA Negative Negative [facility] Comment on above: This nucleic acid am plification test detects fourteen high- risk HPV types (16,18,31,33,35,39,45,51,52,56,58,59,66,68) without differentiation. Performed at: =[address] [id number] Dry Transfer Man: Radha Browne MD, Phone: [phone] Performed at: [address] [id number] Dry Transfer Man: Radha Bronwe MD, Phone: [phone] IGP, APTIMA HPV, RFX 16/18,45 Note . [facility] Comment on above: TESTS RESULT FLAG UN ITS REF RANGE LAB DIAGNOSIS: 02 NEGATIVE FOR INTRAEPITHELIAL LESION OR MALIGNANCY. Specimen adequacy: 02 Satisfactory for evaluation. No endocervical component is identified. Performed by: 02 Danie Vargas, Stem Shaper (ASC) . 02 Note: Note 02 The [...] High,A-Abnormal,AA-Critical Abnormal Performed at: 02 [facility] [address] [address] Radha Browne MD, [facility] Cervical or vaginal smear or scraping studyon 02-10-2024 [facility] Urinalysis macro (dipstick) panel (U)on 02-10-2024 Bilirubin, UA Negative Negative - 4(70) +++ mg/dL [facility] Blood, UA Negative Negative - 50 Mendel/mcL [facility] Clarity, UA Clear [facility] Color, UA Yellow [facility] Glucose, UA Negative Negative - 1999(110) ++++ mg/dL [facility] Interpretation and review of laboratory results Abnormal [facility] Ketones, UA Negative Negative - 160(16) ++++ mg/dL [facility] Leukocytes, UA Trace Negative - 500+++ Leighann/mcL [facility] Nitrite, UA Negative Negative - Positive [facility] pH, UA 7 5 - 9 [facility] Protein, UA Negative Negative - 1999(20) ++++ mg/dL [facility] Spec Grav, UA 1.02 1 - 1.03 [facility] Urobilinogen, UA 0.2 0.2 - 12 mg/dL [facility] ALL THYROID STIM HORMONEon 0 01-22-2024 TSH Qn 1.921 m[IU]/L [facility] Urinalysis macro (dipstick) panel (U)on 01-11-2024 Bilirubin, UA Negative Negative - 4(70) +++ mg/dL [facility] Blood, UA Negative Negative - 50 Mendel/mcL [facility] Clarity, UA Clear [facility] Color, UA Yellow [facility] Glucose, UA Negative Negative - 1999(110) ++++ mg/dL [facility] Interpretation and review of laboratory results Normal [facility] Ketones, UA Negative Negative - 160(16) ++++ mg/dL [facility] Leukocytes, UA Negative Negative - 500+++ Leighann/mcL [facility] Nitrite, UA Negative Negative - Positive [facility] pH, UA 6.0 5 - 9 [facility] Protein, UA Negative Negative - 1999(20) ++++ mg/dL [facility] Spec Grav, UA 1.015 1 - 1.03 [facility] Urobilinogen, UA 0.2 0.2 - 12 mg/dL [facility] BioFire Not Detectedon 07-12 BioFire Not Detected Not detected Normal Not Detecte T he [facility] Comment on above: Result Comment: This is a duplicate RP2.1 COVID (PCR) result to be used for statistical tracking purpose only. PERFORMED BY: [place] [address] PATHOLOGIST GOLF COURSE ASSISTANT CTAY NEELY M.D. Performed By: #### R RODGER PANEL UPP., BIOFIRECOVNOTDE #### [address] COVID-19 Detected/Not Detect edOrdered By: Sofie Gr on 07-13-2023 SARS-CoV-2 (COVID-19) RNA JUAN+non-probe Ql (Nph) Not detected Not Detecte [facility] Comment on above: This is a [...] Influenza A H3 Blank Space PERFORMED BY: [place] [address] PATHOLOGIST GOLF COURSE ASSISTANT CATY NEELY M.D. Normal The [facility] Comment on above: Performed By: #### R RODGER PANEL UPP., BIOFIRECOVNOTDE #### [address] Respiratory pathogens DNA an d RNA panel - Nasopharynx by JUAN with non-probe detectionOrdered By: Sofie Gr on 07-13-2023 Respiratory pathogens DNA and RNA panel JUAN+non-probe (Nph) [facility] CBC AUTO DIFFon 06-25-2022 BASO # 0.0 103/ul Normal 0.0-0.1 [facility] Comment on above: Performed By: #### C BC #### [facility] [address] [place] [address] [address] Garland Kohli Basophils/100 WBC (Bld) 0.4 % Normal 0.2-2.0 [facility] Comment on above: Performed By: #### C BC #### [facility] [address] [place] [address] Dr. Garland Kohli EO # 0.1 103/ul Normal 0.0-0.7 [facility] Comment on above: Performed By: #### C BC #### [facility] [address] [place] [address] Dr. Garland Kohli Eosinophils/100 WBC (Bld) 0.9 % Normal 0.9-7.0 [facility] Comment on above: Performed By: #### C BC #### [facility] [address] [place] [address] Dr. Garland Kohli Erythrocyte distribution width (RBC) [Ratio] 12.4 % Normal 11.0-15.0 [facility] Comment on above: Performed By: #### C BC #### [facility] [address] [place] [address] Dr. Garland Kohli Hematocrit (Bld) [Volume fraction] 31.4 % Critically low 36.0-48.0 [facility] Comment on above: Performed By: #### C BC #### [facility] [address] [place] [address] Dr. Garland Kohli Hemoglobin (Bld) [Mass/Vol] 10.4 g/dL Critically low 12.0-16.0 [facility] Comment on above: Performed By: #### C BC #### [facility] [address] [place] [address] Dr. Garland Kohli IG # 0.04 10e3/ul Critically high 0.00-0.[address] [facility] Comment on above: Performed By: #### C BC #### [facility] [address] [place] [address] Dr. Garland Kohli IG % 0.4 % Normal 0.0-0.5 [facility] Comment on above: Performed By: #### C BC #### [facility] [address] [place] [address] Dr. Garland Kohli LYMPH # 2.0 103/ul Normal 1.2-3.8 [facility] Comment on above: Performed By: #### C BC #### [facility] [address] [place] [address] Dr. Garland Kohli Lymphocytes/100 WBC (Bld) 22.1 % Normal 20.5-60.0 [facility] Comment on above: Performed By: #### C BC #### [facility] [address] [place] [address] Dr. Garland Kohli MANUAL DIFF REQ NO Normal [facility] Comment on above: Performed By: #### C BC #### [facility] [address] [place] [address] Dr. Garland Kohli MCH (RBC) [Entitic mass] 30.1 pg Normal 26.7-34.0 [facility] Comment on above: Performed By: #### C BC #### [facility] [address] [place] [address] Dr. Garland Kohli MCHC (RBC) [Mass/Vol] 33.1 g/dL Normal 29.9-35.2 [facility] Comment on above: Performed By: #### C BC #### [facility] [address] [place] [address] Dr. Garland Kohli MCV (RBC) [Entitic vol] 91.0 fL Normal 81.0-99.0 [facility] Comment on above: Performed By: #### C BC #### [facility] [address] [place] [address] Dr. Garland Kohli MONO # 0.8 103/ul Normal 0.3-0.8 [facility] Comment on above: Performed By: #### C BC #### [facility] [address] [place] [address] Dr. Garland Kohli Monocytes/100 WBC (Bld) 8.8 % Normal 1.7-12.0 [facility] Comment on above: Performed By: #### C BC #### [facility] [address] [place] [address] Dr. Garland Kohli NEUT # 6.0 103/ul Normal 1.4-6.5 [facility] Comment on above: Performed By: #### C BC #### [facility] [address] [place] [address] Dr. Garland Kohli Neutrophils/100 WBC (Bld) 67.4 % Normal 43.0-75.0 [facility] Comment on above: Performed By: #### C BC #### [facility] [address] [place] [address] Dr. Garland Kohli Platelet mean volume (Bld) [Entitic vol] 12.0 fL Normal 9.5-13.5 [facility] Comment on above: Performed By: #### C BC #### [facility] [address] [place] [address] Dr. Garland Kohli PLT 151 103/ul Normal 150-450 [facility] Comment on above: Performed By: #### C BC #### [facility] [address] [place] [address] Dr. Garland Kohli RBC 3.45 106/ul Critically low 4.20-5.40 [facility] Comment on above: Performed By: #### C BC #### [facility] [address] [place] [address] Dr. Garland Kohli WBC 8.9 103/ul Normal 4.0-11.0 [facility] Comment on above: Performed By: #### C BC #### [facility] [address] [place] [address] Dr. Garland Kohli CBC AUTO DIFFon 06-23-2022 BASO # 0.0 103/ul Normal 0.0-0.1 [facility] Comment on above: Performed By: #### C BC #### [facility] [address] [place] [address] Dr. Garland Kohli Basophils/100 WBC (Bld) 0.4 % Normal 0.2-2.0 [facility] Comment on above: Performed By: #### C BC #### [facility] [address] [place] [address] Dr. Garland Kohli EO # 0.1 103/ul Normal 0.0-0.7 [facility] Comment on above: Performed By: #### C BC #### [facility] [address] [place] [address] Dr. Garland Kohli Eosinophils/100 WBC (Bld) 0.8 % Critically low 0.9-7.0 [facility] Comment on above: Performed By: #### C BC #### [facility] [address] [place] [address] Dr. Garland Kohli Erythrocyte distribution width (RBC) [Ratio] 12.4 % Normal 11.0-15.0 [facility] Comment on above: Performed By: #### C BC #### [facility] [address] [place] [address] Dr. Garland Kohli Hematocrit (Bld) [Volume fraction] 34.5 % Critically low 36.0-48.0 [facility] Comment on above: Performed By: #### C BC #### [facility] [address] [place] [address] Dr. Garland Kohli Hemoglobin (Bld) [Mass/Vol] 11.6 g/dL Critically low 12.0-16.0 [facility] Comment on above: Performed By: #### C BC #### [facility] [address] [place] [address] Dr. Garland Kohli IG # 0.04 10e3/ul Critically high 0.00-0.03 [facility] Comment on above: Performed By: #### C BC #### [facility] [address] [place] [address] Dr. Garland Kohli IG % 0.5 % Normal 0.0-0.5 [facility] Comment on above: Performed By: #### C BC #### [facility] [address] [place] [address] Dr. Garland Kohli LYMPH # 1.3 103/ul Normal 1.2-3.8 [facility] Comment on above: Performed By: #### C BC #### [facility] [address] [place] [address] Dr. Garland Kohli Lymphocytes/100 WBC (Bld) 17.6 % Critically low 20.5-60.0 [facility] Comment on above: Performed By: #### C BC #### [facility] [address] [place] [address] Dr. Garland Kohli MANUAL DIFF REQ NO Normal [facility] Comment on above: Performed By: #### C BC #### [facility] [address] [place] [address] Dr. Garland Kohli MCH (RBC) [Entitic mass] 29.6 pg Normal 26.7-34.0 [facility] Comment on above: Performed By: #### C BC #### [facility] [address] [place] [address] Dr. Garland Kohli MCHC (RBC) [Mass/Vol] 33.6 g/dL Normal 29.9-35.2 [facility] Comment on above: Performed By: #### C BC #### [facility] [address] [place] [address] Dr. Garland Kohli MCV (RBC) [Entitic vol] 88.0 fL Normal 81.0-99.0 [facility] Comment on above: Performed By: #### C BC #### [facility] [address] [place] [address] Dr. Garland Kohli MONO # 0.9 103/ul Critically high 0.3-0.8 [facility] Comment on above: Performed By: #### C BC #### [facility] [address] [place] [address] Dr. Garland Kohli Monocytes/100 WBC (Bld) 11.7 % Normal 1.7-12.0 [facility] Comment on above: Performed By: #### C BC #### [facility] [address] [place] [address] Dr. Garland Kohli NEUT # 5.1 103/ul Normal 1.4-6.5 [facility] Comment on above: Performed By: #### C BC #### [facility] [address] [place] [address] Dr. Garland Kohli Neutrophils/100 WBC (Bld) 69.0 % Normal 43.0-75.0 [facility] Comment on above: Performed By: #### C BC #### [facility] [address] [place] [address] Dr. Garland Kohli Platelet mean volume (Bld) [Entitic vol] 12.1 fL Normal 9.5-13.5 [facility] Comment on above: Performed By: #### C BC #### [facility] [address] [place] [address] Dr. Garland Kohli PLT 193 103/ul Normal 150-450 [facility] Comment on above: Performed By: #### C BC #### [facility] [address] [address] [address] Garland Kohli RBC 3.92 106/ul Critically low 4.20-5.40 [facility] Comment on above: Performed By: #### C BC #### [facility] [address] [place] [address] Dr. Garland Kohli WBC 7.4 103/ul Normal 4.0-11.0 [facility] Comment on above: Performed By: #### C BC #### [facility] [address] [place] [address] Dr. Garland Kohli DRUG SCREEN RAPID (URINE)on 06-23-2022 AMP Negative Normal NEGATIVE [facility] Comment on above: Performed By: #### D RUGRPD #### [facility] [address] [place] [address] Dr. Garland Kohli BAR Negative Normal NEGATIVE [facility] Comment on above: Performed By: #### D RUGRPD #### [facility] [address] [place] [address] Dr. Garland Kohli BUP Negative Normal NEGATIVE [facility] Comment on above: Performed By: #### D RUGRPD #### [facility] [address] [place] [address] Dr. Garland Kohli BZO Negative Normal NEGATIVE [facility] Comment on above: Performed By: #### D RUGRPD #### [facility] [address] [place] [address] Dr. Garland Kohli JUANI Negative Normal NEGATIVE [facility] Comment on above: Performed By: #### D RUGRPD #### [facility] [address] [place] [address] Dr. Garland Kohli CUT-OFFS SEE BELOW Normal [facility] Comment on above: Result Comment: AMP [...] ng/mL Performed By: #### D RUGRPD #### [facility] [address] [place] [address] Dr. Garland Kohli DRUG CUT HEADER DRUG CLASS TEST SYSTEM CUT-OFF CONCENTRATIONS ARE FOLLOWS: Normal [facility] Comment on above: Performed By: #### D RUGRPD #### [facility] [address] [place] [address] Dr. Garland Kohli mAMP Negative Normal NEGATIVE [facility] Comment on above: Performed By: #### D RUGRPD #### [facility] [address] [place] [address] Dr. Garland Kohli MTD Negative Normal NEGATIVE [facility] Comment on above: Performed By: #### D RUGRPD #### [facility] [address] [place] [address] Dr. Garland Kohli OPI Negative Normal NEGATIVE [facility] Comment on above: Performed By: #### D RUGRPD #### [facility] [address] [place] [address] Dr. Garland Kohli OXY Negative Normal NEGATIVE [facility] Comment on above: Performed By: #### D RUGRPD #### [facility] [address] [place] [address] Dr. Garland Kohli PCP Negative Normal NEGATIVE [facility] Comment on above: Performed By: #### D RUGRPD #### [facility] [address] [place] [address] Dr. Garland Kohli PPX Negative Normal NEGATIVE [facility] Comment on above: Performed By: #### D RUGRPD #### [facility] [address] [place] [address] Dr. Garland Kohli TCA Negative Normal NEGATIVE [facility] Comment on above: Performed By: #### D RUGRPD #### [facility] [address] [place] [address] Dr. Garland Kohli THC Negative Normal NEGATIVE [facility] Comment on above: Performed By: #### D RUGRPD #### [facility] [address] [place] [address] Dr. Garland Kohli TYPE AND SCREENon 06-23-2022 TYPE AND SCREEN Negative Normal [facility] Comment on above: Performed By: #### T NS #### [facility] [address] [place] [address] Dr. Garland Kohli FREE T4on 06-07-2022 Free T4 [Mass/Vol] 0.76 ng/dL Normal 0.76-1.46 [facility] Comment on above: Performed By: #### C BC #### [facility] [address] [place] [address] Dr. Garland Kohli TSHon 06-07-2022 TSH 1.393 uIU/mL Normal 0.358-3.740 [facility] Comment on above: Performed By: #### T SH #### [facility] [address] [place] [address] Dr. Garland Kohli GROUP B STREP CULTUREon S. agalactiae Ag Ql (Unsp spec) Culture Observations: NEGATIVE FOR GROUP B STREPTOCOCCUS. Normal [facility] Comment on above: Performed By: #### C BC #### [facility] [address] [place] [address] Dr. Garland Kohli GTT 3 HR PREGon 04-16-2022 Glucose [Mass/Vol] 87 mg/dL Normal 74-106 [facility] Comment on above: Performed By: #### G TT3P #### [facility] [address] [place] [address] Dr. Garland Kohli Glucose [Mass/Vol] 148 mg/dL Normal [facility] Comment on above: Performed By: #### G TT3P #### [facility] [address] [place] [address] Dr. Garland Kohli Glucose [Mass/Vol] 128 mg/dL Normal [facility] Comment on above: Performed By: #### G TT3P #### [facility] [address] [place] [address] Dr. Garland Kohli Glucose [Mass/Vol] 105 mg/dL Normal [facility] Comment on above: Performed By: #### G TT3P #### [facility] [address] [place] [address] Dr. Garland Kohli CBC AUTO DIFFon 04-04-2022 BASO # 0.0 103/ul Normal 0.0-0.1 [facility] Comment on above: Performed By: #### G TT3P #### [facility] [address] [place] [address] Dr. Garland Kohli Basophils/100 WBC (Bld) 0.2 % Normal 0.2-2.0 [facility] Comment on above: Performed By: #### G TT3P #### [facility] [address] [place] [address] Dr. Garland Kohli EO # 0.0 103/ul Normal 0.0-0.7 [facility] Comment on above: Performed By: #### G TT3P #### [facility] [address] [place] [address] Dr. Garland Kohli Eosinophils/100 WBC (Bld) 0.4 % Critically low 0.9-7.0 [facility] Comment on above: Performed By: #### G TT3P #### [facility] [address] [place] [address] Dr. Garland Kohli Erythrocyte distribution width (RBC) [Ratio] 12.9 % Normal 11.0-15.0 [facility] Comment on above: Performed By: #### G TT3P #### [facility] [address] [place] [address] Dr. Garland Kohli Hematocrit (Bld) [Volume fraction] 32.5 % Critically low 36.0-48.0 [facility] Comment on above: Performed By: #### G TT3P #### [facility] [address] [place] [address] Dr. Garland Kohli Hemoglobin (Bld) [Mass/Vol] 11.2 g/dL Critically low 12.0-16.0 [facility] Comment on above: Performed By: #### G TT3P #### [facility] [address] [address] [address] Garland Kohli IG # 0.07 10e3/ul Critically high 0.00-0.03 [facility] Comment on above: Performed By: #### G TT3P #### [facility] [address] [place] [address] Dr. Garland Kohli IG % 0.8 % Critically high 0.0-0.5 [facility] Comment on above: Performed By: #### G TT3P #### [facility] [address] [place] [address] Dr. Garland Kohli LYMPH # 0.9 103/ul Critically low 1.2-3.8 [facility] Comment on above: Performed By: #### G TT3P #### [facility] [address] [place] [address] Dr. Garland Kohli Lymphocytes/100 WBC (Bld) 10.4 % Critically low 20.5-60.0 [facility] Comment on above: Performed By: #### G TT3P #### [facility] [address] [place] [address] Dr. Garland Kohli MANUAL DIFF REQ NO Normal [facility] Comment on above: Performed By: #### G TT3P #### [facility] [address] [place] [address] Dr. Garland Kohli MCH (RBC) [Entitic mass] 31.4 pg Normal 26.7-34.0 [facility] Comment on above: Performed By: #### G TT3P #### [facility] [address] [place] [address] Dr. Garland Kohli MCHC (RBC) [Mass/Vol] 34.5 g/dL Normal 29.9-35.2 [facility] Comment on above: Performed By: #### G TT3P #### [facility] [address] [place] [address] Dr. Garland Kohli MCV (RBC) [Entitic vol] 91.0 fL Normal 81.0-99.0 [facility] Comment on above: Performed By: #### G TT3P #### [facility] [address] [place] [address] Dr. Garland Kohli MONO # 1.1 103/ul Critically high 0.3-0.8 [facility] Comment on above: Performed By: #### G TT3P #### [facility] [address] [place] [address] Dr. Garland Kohli Monocytes/100 WBC (Bld) 12.5 % Critically high 1.7-12.0 [facility] Comment on above: Performed By: #### G TT3P #### [facility] [address] [place] [address] Dr. Garland Kohli NEUT # 6.3 103/ul Normal 1.4-6.5 [facility] Comment on above: Performed By: #### G TT3P #### [facility] [address] [place] [address] Dr. Garland Kohli Neutrophils/100 WBC (Bld) 75.7 % Critically high 43.0-75.0 [facility] Comment on above: Performed By: #### G TT3P #### [facility] [address] [place] [address] Dr. Garland oKhli Platelet mean volume (Bld) [Entitic vol] 10.5 fL Normal 9.5-13.5 [facility] Comment on above: Performed By: #### G TT3P #### [facility] [address] [place] [address] Dr. Garland Kohli PLT 181 103/ul Normal 150-450 [facility] Comment on above: Performed By: #### G TT3P #### [facility] [address] [place] [address] Dr. Garland Kohli RBC 3.57 106/ul Critically low 4.20-5.40 [facility] Comment on above: Performed By: #### G TT3P #### [facility] [address] [place] [address] Dr. Garland Kohli WBC 8.4 103/ul Normal 4.0-11.0 [facility] Comment on above: Performed By: #### G TT3P #### [facility] [address] [place] [address] Dr. Garland Kohli CTA CHEST WO W [...] DEANNA LINN Date: 2022-04-04 15:25 Normal [facility] PROF CHEM 8 (BAS METB)on Anion gap [Moles/Vol] 13.2 mmol/L Normal [facility] Comment on above: Performed By: #### G TT3P #### [facility] [address] [place] [address] Dr. Garland Kohli Calcium [Mass/Vol] 8.5 mg/dL Normal 8.5-10.1 [facility] Comment on above: Performed By: #### G TT3P #### [facility] [address] [address] [address] Garland Kohli Chloride [Moles/Vol] 103 mmol/L Normal 98-107 [facility] Comment on above: Performed By: #### G TT3P #### [facility] [address] [address] [address] Garland Kohli CO2 [Moles/Vol] 23.4 mmol/L Normal 21.0-32.0 [facility] Comment on above: Performed By: #### G TT3P #### [facility] [address] [address] [address] Garland Kohli Creatinine [Mass/Vol] 0.43 mg/dL Critically low 0.55-1.02 [facility] Comment on above: Performed By: #### G TT3P #### [facility] [address] [place] [address] Dr. Garland Kohli EGFR-AF RWANDAN >60 Normal >=60 [facility] Comment on above: Performed By: #### G TT3P #### [facility] [address] [place] [address] Dr. Garland Kohli EGFR-NON AF RWANDAN >60 Normal >=60 [facility] Comment on above: Performed By: #### G TT3P #### [facility] [address] [address] [address] Garland Kohli Glucose [Mass/Vol] 108 mg/dL Critically high 74-106 [facility] [place] [facility] Comment on above: Performed By: #### G TT3P #### [facility] [address] [address] [address] Garland oKhli Potassium [Moles/Vol] 3.6 mmol/L Normal 3.5-5.1 [facility] Comment on above: Performed By: #### G TT3P #### [facility] [address] [address] [address] Garland Kohli Sodium [Moles/Vol] 136 mmol/L Normal 136-145 [facility] Comment on above: Performed By: #### G TT3P #### [facility] [address] [address] [address] Garland Kohli Urea nitrogen [Mass/Vol] 5.0 mg/dL Critically low 7.0-18.0 [facility] Comment on above: Performed By: #### G TT3P #### [facility] [address] [place] [address] Dr. Garland Kohli Urea nitrogen/Creatinine [Mass ratio] 11.6 mg/mg Normal [facility] Comment on above: Performed By: #### G TT3P #### [facility] [address] [place] [address] Dr. Garland Kohli TROPONIN, HIGH SENSITIVITYon 04-04-2022 HSTROP 9.3 pg/mL Normal 4.0-51.3 [facility] Comment on above: Result Comment: CUT- OFF POINTS HAVE BEEN ESTABLISHED BASED ON THE FOURTH UNIVERSAL DEFINITIONS OF MYOCARDIAL INFARCTION. THE UPPER REFERENCE LIMIT (URL) OF TROPONIN, DEFINED THE 99TH PERCENTILE OF cTnI DISTRIBUTION IN A REFERENCE POPULATION, HAS BEEN CONFIRMED THE DECISION THRESHOLD FOR [place] DIAGNOSIS. Performed By: #### G TT3P #### [facility] [address] [place] [address] Dr. Garland Kohli CBC AUTO DIFFon 03-26-2022 BASO # 0.0 103/ul Normal 0.0-0.1 [facility] Comment on above: Performed By: #### G TT3P #### [facility] [address] [place] [address] Dr. Garland Kohli Basophils/100 WBC (Bld) 0.2 % Normal 0.2-2.0 [facility] Comment on above: Performed By: #### G TT3P #### [facility] [address] [place] [address] Dr. Garland Kohli EO # 0.1 103/ul Normal 0.0-0.7 [facility] Comment on above: Performed By: #### G TT3P #### [facility] [address] [place] [address] Dr. Garland Kohli Eosinophils/100 WBC (Bld) 1.0 % Normal 0.9-7.0 [facility] Comment on above: Performed By: #### G TT3P #### [facility] [address] [place] [address] Dr. Garland Kohli Erythrocyte distribution width (RBC) [Ratio] 12.8 % Normal 11.0-15.0 [facility] Comment on above: Performed By: #### G TT3P #### [facility] [address] [place] [address] Dr. Garland Kohli Hematocrit (Bld) [Volume fraction] 36.2 % Normal 36.0-48.0 [facility] Comment on above: Performed By: #### G TT3P #### [facility] [address] [place] [address] Dr. Garland Kohli Hemoglobin (Bld) [Mass/Vol] 12.2 g/dL Normal 12.0-16.0 [facility] Comment on above: Performed By: #### G TT3P #### [facility] [address] [place] [address] Dr. Garland Kohli IG # 0.08 10e3/ul Critically high 0.00-0.03 [facility] Comment on above: Performed By: #### G TT3P #### [facility] [address] [place] [address] Dr. Garland Kohli IG % 0.9 % Critically high 0.0-0.5 [facility] Comment on above: Performed By: #### G TT3P #### [facility] [address] [place] [address] Dr. Garland Kohli LYMPH # 1.7 103/ul Normal 1.2-3.8 [facility] Comment on above: Performed By: #### G TT3P #### [facility] [address] [place] [address] Dr. Garland Kohli Lymphocytes/100 WBC (Bld) 17.8 % Critically low 20.5-60.0 [facility] Comment on above: Performed By: #### G TT3P #### [facility] [address] [place] [address] Dr. Garland Kohli MANUAL DIFF REQ NO Normal [facility] Comment on above: Performed By: #### G TT3P #### [facility] [address] [place] [address] Dr. Garland Kohli MCH (RBC) [Entitic mass] 30.7 pg Normal 26.7-34.0 [facility] Comment on above: Performed By: #### G TT3P #### [facility] [address] [place] [address] Dr. Garland Kohli MCHC (RBC) [Mass/Vol] 33.7 g/dL Normal 29.9-35.2 [facility] Comment on above: Performed By: #### G TT3P #### [facility] [address] [place] [address] Dr. Garland Kohli MCV (RBC) [Entitic vol] 91.2 fL Normal 81.0-99.0 [facility] Comment on above: Performed By: #### G TT3P #### [facility] [address] [place] [address] Dr. Garland Kohli MONO # 0.6 103/ul Normal 0.3-0.8 [facility] Comment on above: Performed By: #### G TT3P #### [facility] [address] [place] [address] Dr. Garland Kohli Monocytes/100 WBC (Bld) 6.0 % Normal 1.7-12.0 [facility] Comment on above: Performed By: #### G TT3P #### [facility] [address] [place] [address] Dr. Garland Kohli NEUT # 6.9 103/ul Critically high 1.4-6.5 [facility] Comment on above: Performed By: #### G TT3P #### [facility] [address] [place] [address] Dr. Garland Kohli Neutrophils/100 WBC (Bld) 74.1 % Normal 43.0-75.0 [facility] Comment on above: Performed By: #### G TT3P #### [facility] [address] [place] [address] Dr. Garland Kohli Platelet mean volume (Bld) [Entitic vol] 10.2 fL Normal 9.5-13.5 [facility] Comment on above: Performed By: #### G TT3P #### [facility] [address] [place] [address] Dr. Garland Kohli PLT 217 103/ul Normal 150-450 [facility] Comment on above: Performed By: #### G TT3P #### [facility] [address] [place], [place] [address] Dr. Garland Kohli RBC 3.97 106/ul Critically low 4.20-5.40 [facility] Comment on above: Performed By: #### G TT3P #### [facility] [address] [place], [place] [address] Dr. Garland Kohli WBC 9.3 103/ul Normal 4.0-11.0 [facility] Comment on above: Performed By: #### G TT3P #### [facility] [address] [place] [address] [address] [address] Garland Kohli GLUCOSE - 1HRon 03-26-2022 Glucose [Mass/Vol] 155 mg/dL Critically high 74-106 [facility] [place] [facility] Comment on above: Performed By: #### C BC #### [facility] [address] [place], [place] [id number] Dr. Garland Kohli US PREG ANATOMY SINGLEon [...] with growth detailed above. Electronically authenticated by: YAAKOVLUANN HOUSER Date: 2022-02-09 19:30 Normal [facility] AFP MATERNAL FOR SPINA BIFID Aon 01-29-2022 AFP MoM 0.76 Normal [facility] Comment on above: Performed By: #### G TT3P #### [facility] [address] [address] [address] Garland Kohli AFP Value 35.4 ng/mL Normal [facility] Comment on above: Performed By: #### G TT3P #### [facility] [address] [address] [address] Garland Kohli AFP, Serum for Spina Bifida Report Normal [facility] Comment on above: Performed By: #### G TT3P #### [facility] [address] [address] [address] Garland Kohli Comment Comment Normal [facility] Comment on above: Result Comment: Stanley Almodovar, Ph.D., [facility] Director . References: Available Upon Request. . Multiples Of Median Cutoffs For AFP Elevations Mark 2.5 Black 2.8 IDD 2.0 Twins 4.5 Abbreviation Definitions IDD - Insulin Dep Diabetes OSBR - Open Spina Bifida Risk . For further inquiries contact [facility] at [phone]. . This test was developed and its performance characteristics determined by [employer]. It has not been cleared or approved by the Food and Drug Administration. Performed By: #### G TT3P #### [facility] [address] [address] [address] Garland Izquierdo Age Collection Date 18.1 weeks Normal [facility] Comment on above: Performed By: #### G TT3P #### [facility] [address] [address] [address] Garland Kohli Gestat, Age Based on Ultrasound Normal [facility] Comment on above: Result Comment: 09:4 on 11/26/2021 Recalculations are not recommended when gestational dating by LMP and ultrasound are within 10 days. Performed By: #### G TT3P #### [facility] [address] [address] [address] Garland Kohli Insulin Dep Diabetes No Normal [facility] Comment on above: Performed By: #### G TT3P #### [facility] [address] [place] [address] Dr. Garland Kohli Interpretation Comment Normal [facility] Comment on above: Result Comment: [...] Customer Services to discuss available options. The [employer] recommends amniocentesis be offered to women age 35 and older. Performed By: #### G TT3P #### [facility] [address] [place] [address] Dr. Garland Kohli [age] [facility] Comment on above: Performed By: #### G TT3P #### [facility] [address] [place] [address] Dr. Garland Kohli Multiple Gestation No Normal [facility] Comment on above: Performed By: #### G TT3P #### [facility] [address] [place] [address] Dr. Garland Kohli [place] [address] [facility] Comment on above: Performed By: #### G TT3P #### [facility] [address] [place] [address] Dr. Garland Kohli PDF . [facility] Comment on above: Performed By: #### G TT3P #### [facility] [address] [place] [address] Dr. Garland Kohli Race [facility] Comment on above: Performed By: #### G TT3P #### [facility] [address] [place] [address] Dr. Garland Kohli Test Results: Negative Normal [facility] Comment on above: Performed By: #### G TT3P #### [facility] [address] [place] [address] Dr. Garland Kholi PAP ACOG PANEL 2: 19 to 27on 01-23-2022 . . Normal [facility] Comment on above: Performed By: #### [id number] #### [facility] [address] [place] [address] Dr. Garland Kohli Age Gdln ACOG Testing [facility] Comment on above: Performed By: #### 4 [id number] #### [facility] [address] [place] [address] Dr. Garland Kohli DIAGNOSIS: Comment [facility] Comment on above: Result Comment: NEGA TIVE FOR INTRAEPITHELIAL LESION OR MALIGNANCY. Performed By: #### 4 [id number] #### [facility] [address] [place] [address] Dr. Garland Kohli Methodology: Comment [facility] Comment on above: Result Comment: This liquid based ThinPrep(R) pap test was screened with the use of an image guided system. Performed By: #### 4 [id number] #### [facility] [address] [place] [address] Dr. Garland Kohli Note: Comment [facility] Comment on above: Result Comment: The Pap smear is a screening test designed to aid in the detection of premalignant and malignant conditions of the uterine cervix. It is not a diagnostic procedure and should not be used as the sole means of detecting cervical cancer. Both false-positive and false-negative reports do occur. . Performed By: #### 4 [id number] #### [facility] [address] [place] [address] Dr. Garland Kohli Performed by: Comment Normal [facility] Comment on above: Result Comment: Kelly Arreguin, Stem Shaper (ASCP) Performed By: #### 4 [id number] #### [facility] [address] [place] [address] Dr. Garland Kohli Reflex Criteria: Comment Normal [facility] Comment on above: Result Comment: The HPV DNA reflex criteria were not met with this specimen result therefore, no HPV testing was performed. . Performed By: #### 4 [id number] #### [facility] [address] [place] [address] Dr. Garland Kohli Specimen adequacy: Comment Normal [facility] Comment on above: Result Comment: Sati sfactory for evaluation. No endocervical component is identified. Performed By: #### 4 [id number] #### [facility] [address] [place] [address] Dr. Garland Kohli CHLAMYDIA/GONOCOCCUS JUAN (SW AB/URINE/PAPon 01-20-2022 Chlamydia trachomatis, JUAN Negative Normal Negative [facility] Comment on above: Performed By: #### C BC #### [facility] [address] [place] [address] Dr. Garland Kohli Neisseria gonorrhoeae, JUAN Negative Normal Negative [facility] Comment on above: Performed By: #### C BC #### [facility] [address] [place] [address] Dr. Garland Kohli TSHon 01-04-2022 TSH 1.707 uIU/mL Normal 0.358-3.740 [facility] Comment on above: Performed By: #### G TT3P #### [facility] [address] [place] [address] Dr. Garland Kohli HEPATITIS C VIRUS AB W/ REFL EX QUANTon 12-17-2021 HCV AB <0.1 Normal 0.0-0.9 [facility] Comment on above: Performed By: #### G TT3P #### [facility] [address] [place] [address] Dr. Garland Kohli Interpretation: Comment Normal [facility] Comment on above: Result Comment: Nega tive Not infected with HCV, unless recent infection is suspected or other evidence exists to indicate HCV infection. Performed By: #### G TT3P #### [facility] [address] [place] [address] Dr. Garland Kohli CULTURE URINEon 12-15-2021 CULTURE URINE Culture Observations : GREATER THAN TWO ORGANISMS PRESENT. PLEASE RESUBMIT CLEAN CATCH MID-STREAM URINE IF CLINICALLY INDICATED. Normal [facility] Comment on above: Performed By: #### U RCX #### [facility] [address] [place] [address] Dr. Garland Kohli HEP B SURFACE ANTIGEN SCREEN on 12-15-2021 HBsAg Screen Negative Normal Negative [facility] Comment on above: Performed By: #### H BSANS #### [facility] [address] [place] [address] Dr. Garland Kohli HIV 1 AND 2 WITH REFLEXon HIV Screen 4th Generation wRfx Non-Reactive Normal Non Reactive [facility] Comment on above: Result Comment: HIV Negative HIV-1/HIV-2 antibodies and HIV-1 p24 antigen were NOT detected. There is no laboratory evidence of HIV infection. Performed By: #### H IV12 #### [facility] [address] [place] [address] Dr. Garland Kohli RPR QUANTon 12-15-2021 Rapid Plasma Reagin, Quant Non-Reactive Normal NonRea<1:1 [facility] Comment on above: Result Comment: Plenathaniel torres Note: This test does not meet current guidelines for screening and diagnosis of syphilis. This test is intended for following treatment response in patients being treated for syphilis infection. To screen for syphilis infection, a reflex cascade that includes both RPR and a treponema-specific assay should be utilized, such as Treponema pallidum (Syphilis) Screening [place] (964303) or Rapid Plasma Reagin (RPR) Test With Reflex to Quantitative RPR and Confirmatory Treponema pallidum Antibodies (445816). Performed By: #### G TT3P #### [facility] [address] [place] [address] Dr. Garland Kohli RUBELLA AB IGGon 12-15-2021 Rubella Antibodies, IgG 4.72 index Normal Immune >0.99 [facility] Comment on above: Result Comment: Non- immune <0.90 Equivocal 0.90 - 0.99 Immune >0.99 Performed By: #### G TT3P #### [facility] [address] [place] [address] Dr. Garland Kohli CBC AUTO DIFFon 12-14-2021 BASO # 0.0 103/ul Normal 0.0-0.1 [facility] Comment on above: Performed By: #### C BC #### [facility] [address] [place] [address] Dr. Garland Kohli Basophils/100 WBC (Bld) 0.3 % Normal 0.2-2.0 [facility] Comment on above: Performed By: #### C BC #### [facility] [address] [place] [address] Dr. Garland Kohli EO # 0.1 103/ul Normal 0.0-0.7 [facility] Comment on above: Performed By: #### C BC #### [facility] [address] [place] [address] Dr. Garland Kohli Eosinophils/100 WBC (Bld) 0.8 % Critically low 0.9-7.0 [facility] Comment on above: Performed By: #### C BC #### [facility] [address] [place] [address] Dr. Garland Kohli Erythrocyte distribution width (RBC) [Ratio] 12.6 % Normal 11.0-15.0 [facility] Comment on above: Performed By: #### C BC #### [facility] [address] [place] [address] Dr. Garland Kohli Hematocrit (Bld) [Volume fraction] 34.3 % Critically low 36.0-48.0 [facility] Comment on above: Performed By: #### C BC #### [facility] [address] [place] [address] Dr. Garland Kohli Hemoglobin (Bld) [Mass/Vol] 11.7 g/dL Critically low 12.0-16.0 [facility] Comment on above: Performed By: #### C BC #### [facility] [address] [place] [address] Dr. Garland Kohli IG # 0.03 10e3/ul Normal 0.00-0.03 [facility] Comment on above: Performed By: #### C BC #### [facility] [address] [place] [address] [address] Garland Kohli IG % 0.4 % Normal 0.0-0.5 [facility] Comment on above: Performed By: #### C BC #### [facility] [address] [place] [address] Dr. Garland Kohli LYMPH # 1.5 103/ul Normal 1.2-3.8 [facility] Comment on above: Performed By: #### C BC #### [facility] [address] [place] [address] Dr. Garland Kohli Lymphocytes/100 WBC (Bld) 21.1 % Normal 20.5-60.0 [facility] Comment on above: Performed By: #### C BC #### [facility] [address] [place] [address] Dr. Garland Kohli MANUAL DIFF REQ NO Normal [facility] Comment on above: Performed By: #### C BC #### [facility] [address] [place] [address] Dr. Garland Kohli MCH (RBC) [Entitic mass] 30.5 pg Normal 26.7-34.0 [facility] Comment on above: Performed By: #### C BC #### [facility] [address] [place] [address] Dr. Garland Kohli MCHC (RBC) [Mass/Vol] 34.1 g/dL Normal 29.9-35.2 [facility] Comment on above: Performed By: #### C BC #### [facility] [address] [place] [address] Dr. Garland Kohli MCV (RBC) [Entitic vol] 89.6 fL Normal 81.0-99.0 [facility] Comment on above: Performed By: #### C BC #### [facility] [address] [place] [address] Dr. Garland Kohli MONO # 0.5 103/ul Normal 0.3-0.8 [facility] Comment on above: Performed By: #### C BC #### [facility] [address] [address] [address] Garland Kohli Monocytes/100 WBC (Bld) 7.1 % Normal 1.7-12.0 [facility] Comment on above: Performed By: #### C BC #### [facility] [address] [address] [address] Garland Kohli NEUT # 5.0 103/ul Normal 1.4-6.5 [facility] Comment on above: Performed By: #### C BC #### [facility] [address] [address] [address] Garland Kohli Neutrophils/100 WBC (Bld) 70.3 % Normal 43.0-75.0 [facility] Comment on above: Performed By: #### C BC #### [facility] [address] [place] [address] Dr. Garland Kohli Platelet mean volume (Bld) [Entitic vol] 10.1 fL Normal 9.5-13.5 [facility] Comment on above: Performed By: #### C BC #### [facility] [address] [place] [address] Dr. Garland Kohli PLT 234 103/ul Normal 150-450 [facility] Comment on above: Performed By: #### C BC #### [facility] [address] [place] [address] Dr. Garland Kohli RBC 3.83 106/ul Critically low 4.20-5.40 [facility] Comment on above: Performed By: #### C BC #### [facility] [address] [place] [address] Dr. Garland Kohli WBC 7.1 103/ul Normal 4.0-11.0 [facility] Comment on above: Performed By: #### C BC #### [facility] [address] [place] [address] Dr. Garland Kohli GLYCOHEMOGLOBIN A1Con 2021 ADA RECOMMENDATION SEE BELOW Normal [facility] Comment on above: Result Comment: ADA RECOMMENDED LIMIT 4.0 - 6.0 ADA THERAPEUTIC TARGET < 7.0 ACTION SUGGESTED > 7.0 Performed By: #### A 1C #### [facility] [address] [place], [place] [address] Dr. Garland Kolhi Glucose [Mass/Vol] 103 mg/dL Normal [facility] Comment on above: Performed By: #### A 1C #### [facility] [address] [place], [place] [address] Dr. Garland Kohli HbA1c (Bld) [Mass fraction] 5.2 % Normal 4.5-6.2 [facility] Comment on above: Performed By: #### A 1C #### [facility] [address] [place], [place] [address] Dr. Garland Kohli MARTÍNEZ BOX TEST PT SEND OUTo n 12-14-2021 SENT TO REF LAB 12/14/21 Normal [facility] Comment on above: Performed By: #### G TT3P #### [facility] [address] [place] [address] Dr. Garland Kohli TYPE AND SCREENon 12-14-2021 TYPE AND SCREEN Negative Normal [facility] Comment on above: Performed By: #### C BC #### [facility] [address] [address] [address] Garland Kohli US PREG TVon 11-26-2021 [...] by: YAAKOV HOUSER Date: 2021-11-26 18:36 Normal [facility] OPERATIVE REPORTon 9 OPERATIVE REPORT [address] [place] [address] OPERATIVE REPORT PATIENT NAME: CECELIA JOHNSON : 1995 MED REC NO: [id number] ROOM: ACCOUNT NO: [id number] ADMIT DATE: 11/24/2018 PROVIDER: Mode Renee DATE [...] infiltrated into the drains, this was for mcfp pain control. Steri-Strips applied throughout and then bulky gauze dressing as well as surgical bra was applied. The patient was awoken, extubated, and transported to the recovery room in stable condition. Sponge, needle, and instrument counts were reported correct x2 at the end of the case. MODE RENEE /Natalio_OPSAJ_T Doc#: [id number] CC: Carlos Alberto Coleman Normal [facility] Surgical Pathologyon 019 Surgical Pathology (NOTE) [id number] [place] [address] SURGICAL PATHOLOGY REPORT Patient Name: CECELIA JOHNSON MR#: [id number] Specimen #[id number] Final Diagnosis SPECIMEN A : BREAST AND [...] OF SKIN. NEGATIVE FOR MALIGNANCY OR ATYPIA. [facility] Brian Nicolas M.D. Electronically Signed Out 11/26/2018 [...] The entire specimen weighs 453 grams. Multiple patient support representative sections are submitted in five cassettes [...] also sampled in multiple different areas and patient support representative sections are submitted in five cassettes for microscopic examination. Microscopic Description Specimen A : Five RICHARD glass slides are received. Microscopic examination is performed. Specimen B : Five RICHARD glass slides are received. Microscopic examination is performed. Normal [facility] Comment on above: Performed By: #### P PPES #### [facility] [address] [place] [address] Dry Transfer Man: Victor Manuel Hunter DO CNOVSPon 11-18-2018 CNOVSP Visit (SP) Office ([facility]) CECELIA JOHNSON ([id number]) 1995 F Date Time Provider Department 11/18/18 1:00 PM JAZ MOULTON) KATHARINE During your visit today, we recorded the following information about you: Temperature Pulse Respiration Blood pressure 97.9 degrees 82/minute 18/minute 122/78 Weight Height Last Period 82.7 kg 1.6 m 10/15/18 Jaz Moulton MD 11/18/2018 3:08 PM Signed PATIENT NAME: Cecelia Johnson CLINIC NO.: [id number] ATTENDING PHYSICIAN: Jaz Moulton MD DATE OF [...] file Gets together: Not on file Attends sikh service: Not on file Active member of [...] number below. Jaz Moulton M.D. Hematology/Medical Oncology [facility] [phone] CC: Carlos Alberto Coleman MD - (Inactive), In Basket (Inactive) - User (Inactive) [phone] [facility] [phone] (Ph) Mode Renee MD Referring Provider: [...] Nathan - Fully Assessed Visit Diagnosis:MTHFR mutation ([facility]) [E72.12] Prescriptions as of 11/18/2018 Sig: ACETAMINOPHEN [...] Of Date 11/18/2018 Noted Resolved MTHFR mutation ([facility]) [E72.12] INVALID FOR* Encounter Status:Closed by JAZ MOULTON MD on 11/18/18 Normal [facility] Hi PROGRESSon 11-18-2018 PROGRESS HNO ID: [id number] Author: Jaz Moulton Service: ? Author Type: Physician Type: Progress Notes Filed: 11/18/2018 3:08 PM Note Text: PATIENT NAME: Cecelia Johnson CLINIC NO.: [id number] ATTENDING PHYSICIAN: Jaz Moulton MD DATE OF [...] file Gets together: Not on file Attends sikh service: Not on file Active member of [...] number below. Jaz Moulton M.D. Hematology/Medical Oncology [place] [phone] CC: Carlos Alberto Coleman MD - (Inactive), In Basket (Inactive) - User (Inactive) [phone] [facility] [phone] (Ph) Mode Renee MD Normal [facility] Basic Metabolic Profon 11-10 (cont.) Normal [facility] Comment on above: Result Comment: Aver age GFR for 20-29 years old: 116 mL/min/1.73sq m Chronic Kidney Disease: <60 mL/min/1.73sq m Kidney failure: <15 mL/min/1.73sq m eGFR calculated using average adult body mass. Additional eGFR calculator available at: http://www.[employer]/multiple_crcl_2012.htm Performed By: #### C FARAZ, BMP #### [facility] [address] [facility] [place], [place] [id number] Dry Transfer Man: Victor Manuel Hunter DO Anion gap [Moles/Vol] 11 mmol/L Normal 9-17 [facility] Comment on above: Performed By: #### C FARAZ, BMP #### [facility] [address] [facility] [place] [address] Dry Transfer Man: Victor Manuel Hunter DO Calcium [Mass/Vol] 9.7 mg/dL Normal 8.6-10.4 [facility] Comment on above: Performed By: #### C DP, BMP #### [facility] [address] [place] [address] Dry Transfer Man: Victor Manuel Hunter DO Chloride [Moles/Vol] 102 mmol/L Normal 98-107 [facility] Comment on above: Performed By: #### C DP, BMP #### [facility] [place] [address] Dry Transfer Man: Victor Manuel Hunter DO CO2 [Moles/Vol] 26 mmol/L Normal 20-31 [facility] Comment on above: Performed By: #### C DP, BMP #### [facility] [place] [address] Dry Transfer Man: Victor Manuel Hunter DO Creatinine [Mass/Vol] 0.49 mg/dL Low 0.50-0.90 [facility] Comment on above: Performed By: #### C DP, BMP #### [facility] [place] [address] Dry Transfer Man: Victor Manuel Hunter DO GFR, Amer >60 Normal >60 [facility] Comment on above: Performed By: #### C DP, BMP #### [facility] [place] [address] Dry Transfer Man: Victor Manuel Hunter DO GFR,non Amer >60 Normal >60 [facility] Comment on above: Performed By: #### C DP, BMP #### [facility] [place] [facility] [place] [address] Dry Transfer Man: Victor Manuel Hunter DO Glucose [Mass/Vol] 88 mg/dL Normal 70-99 [facility] Comment on above: Performed By: #### C DP, BMP #### [facility] [place] [address] Dry Transfer Man: Victor Manuel Hunter DO Potassium [Moles/Vol] 4.3 mmol/L Normal 3.7-5.3 [facility] Comment on above: Performed By: #### C DP, BMP #### [facility] [address] [place] [phone] Dry Transfer Man: Victor Manuel Hunter DO Sodium [Moles/Vol] 139 mmol/L Normal 135-144 [facility] Comment on above: Performed By: #### C FARAZ, BMP #### [facility] [address] [place] [phone] Dry Transfer Man: Victor Manuel Hunter DO Urea nitrogen [Mass/Vol] 8 mg/dL Normal 6-20 [facility] Comment on above: Performed By: #### C FARAZ, BMP #### [facility] [address] [place] [phone] Dry Transfer Man: Victor Manuel Hunter DO BUN/CRE Ratio NOT REPORTED Normal 9-20 [facility] Comment on above: Performed By: #### C FARAZ, BMP #### [facility] [address] [place] [phone] Dry Transfer Man: Victor Manuel Hunter DO Staging: NOT REPORTED Normal [facility] Comment on above: Performed By: #### C FARAZ, BMP #### [facility] [address] [place] [phone] Dry Transfer Man: Victor Manuel Hunter DO CBC with Diffon 11-10-2018 Abs. Basophil 0.00 k/uL Normal 0.0-0.2 [facility] Comment on above: Performed By: #### C DP, BMP #### [facility] [address] [place] [phone] Dry Transfer Man: Victor Manuel Hunter DO Abs.Neutrophil (Seg) 3.00 k/uL Normal 1.3-9.1 [facility] Comment on above: Performed By: #### C DP, BMP #### [facility] [place] [address] Dry Transfer Man: Victor Manuel Hunter DO Basophils/100 WBC (Bld) 0 % Normal 0-2 [facility] Comment on above: Performed By: #### C DP, BMP #### [facility] [address] [place] [address] Dry Transfer Man: Victor Manuel Hunter DO Eosinophils (Bld) [#/Vol] 0.10 10*3/uL Normal 0.0-0.4 [facility] Comment on above: Performed By: #### C DP, BMP #### [facility] [address] [place] [phone] Dry Transfer Man: Victor Manuel Hunter DO Eosinophils/100 WBC (Bld) 1 % Normal 0-4 [facility] Comment on above: Performed By: #### C DP, BMP #### [facility] [address] [place] [phone] Dry Transfer Man: Victor Manuel Hunter DO Erythrocyte distribution width (RBC) [Ratio] 12.7 % Normal 11.5-14.9 [facility] Comment on above: Performed By: #### C DP, BMP #### [facility] [address] [place] [phone] Dry Transfer Man: Victor Manuel Hunter DO Hematocrit (Bld) [Volume fraction] 42.3 % Normal 36-46 [facility] Comment on above: Performed By: #### C DP, BMP #### [facility] [address] [place] [phone] Dry Transfer Man: Victor Manuel Hunter DO Hemoglobin (Bld) [Mass/Vol] 14.3 g/dL Normal 12.0-16.0 [facility] Comment on above: Performed By: #### C DP, BMP #### [facility] [place] [address] Dry Transfer Man: Victor Manuel Hunter DO Lymphocytes (Bld) [#/Vol] 1.70 10*3/uL Normal 1.0-4.8 [facility] Comment on above: Performed By: #### C DP, BMP #### [facility] [place] [address] Dry Transfer Man: Victor Manuel Hunter DO Lymphocytes/100 WBC (Bld) 32 % Normal 24-44 [facility] Comment on above: Performed By: #### C DP, BMP #### [facility] [address] [place] [phone] Dry Transfer Man: Victor Manuel Hunter DO MCH (RBC) [Entitic mass] 30.0 pg Normal 26-34 [facility] Comment on above: Performed By: #### C FARAZ, BMP #### [facility] [address] [place] [phone] Dry Transfer Man: Victor Manuel Hunter DO MCHC (RBC) [Mass/Vol] 33.7 g/dL Normal 31-37 [facility] Comment on above: Performed By: #### C FARAZ, BMP #### [facility] [address] [place] [phone] Dry Transfer Man: Victor Manuel Hunter DO MCV (RBC) [Entitic vol] 89.0 fL Normal 80-100 [facility] Comment on above: Performed By: #### C DP, BMP #### [facility] [address] [place] [phone] Dry Transfer Man: Victor Manuel Hunter DO Monocytes (Bld) [#/Vol] 0.60 10*3/uL Normal 0.1-1.3 [facility] Comment on above: Performed By: #### C DP, BMP #### [facility] [address] [place] [address] Dry Transfer Man: Victor Manuel Hunter DO Monocytes/100 WBC (Bld) 11 % High 1-7 [facility] Comment on above: Performed By: #### C DP, BMP #### [facility] [address] [place] [address] Dry Transfer Man: Victor Manuel Hunter DO Neutrophil (Seg) 56 % Normal 36-66 [facility] Comment on above: Performed By: #### C DP, BMP #### [facility] [place] [address] Dry Transfer Man: Victor Manuel Hunter DO Platelet mean volume (Bld) [Entitic vol] 9.4 fL Normal 6.0-12.0 [facility] Comment on above: Performed By: #### C DP, BMP #### [facility] [place] [address] Dry Transfer Man: Victor Manuel Hunter DO Platelets (Bld) [#/Vol] 252 10*3/uL Normal 150-450 [facility] Comment on above: Performed By: #### C DP, BMP #### [facility] [place] [address] Dry Transfer Man: Victor Manuel Hunter DO RBC (Bld) [#/Vol] 4.75 10*6/uL Normal 4.0-5.2 [facility] Comment on above: Performed By: #### C DP, BMP #### [facility] [address] [place] [address] Dry Transfer Man: Victor Manuel Hunter DO WBC (Bld) [#/Vol] 5.3 10*3/uL Normal 3.5-11.0 [facility] Comment on above: Performed By: #### C DP, BMP #### [facility] [address] [place] [address] Dry Transfer Man: Victor Manuel Hunter DO Abs.Imm.Granulocyte NOT REPORTED Normal 0.00-0.30 [facility] Comment on above: Performed By: #### C DP, BMP #### [facility] [place] [address] Dry Transfer Man: Victor Manuel Hunter DO Auto Diff Performed NOT REPORTED Normal [facility] Comment on above: Performed By: #### C DP, BMP #### [facility] [place] [address] Dry Transfer Man: Victor Manuel Hunter DO Immature granulocytes (Bld) [#/Vol] NOT REPORTED Normal 0 [facility] Comment on above: Performed By: #### C DP, BMP #### [facility] [address] [place] [address] Dry Transfer Man: Victor Manuel Hunter DO NRBC Automated NOT REPORTED Normal [facility] Comment on above: Performed By: #### C DP, BMP #### [facility] [place] [address] Dry Transfer Man: Victor Manuel Hunter DO Platelets (Bld) [#/Vol] NOT REPORTED Normal [facility] Comment on above: Performed By: #### C DP, BMP #### [facility] [place] [address] Dry Transfer Man: Victor Manuel Hunter DO RBC morphology finding Nom (Bld) NOT REPORTED Normal [facility] Comment on above: Performed By: #### C DP, BMP #### [facility] [place] [address] Dry Transfer Man: Victor Manuel Hunter DO WBC Morphology NOT REPORTED Normal [facility] Comment on above: Performed By: #### C FARAZ, ROSA #### [facility] [address] [place] [address] Dry Transfer Man: Victor Manuel Hunter DO Vital Signs Date Time Vital Sign Value Performing Clinician Facility 05-25-2024 14:24-0500 Body mass index (BMI) [Ratio] 33.03 kg/m2 Herber Nnamdi DO Work Phone: [facility] 05-25-2024 14:24-0500 Body weight 87.27 kg Herber Nnamdi DO Work Phone: [facility] 05-25-2024 14:24-0500 Diastolic blood pressure 84 mm[Hg] Herber Nnamdi DO Work Phone: [facility] 05-25-2024 14:24-0500 Systolic blood pressure 124 mm[Hg] Herber Nnamdi DO Work Phone: [facility] 05-09-2024 16:07-0500 Body mass index (BMI) [Ratio] 32.61 kg/m2 Tori Buffalo PA Work Phone: [facility] 05-09-2024 16:07-0500 Body weight 86.18 kg Tori Dwight PA Work Phone: [facility] 05-09-2024 16:07-0500 Diastolic blood pressure 82 mm[Hg] Tori Buffalo PA Work Phone: [facility] 05-09-2024 16:07-0500 Systolic blood pressure 120 mm[Hg] Tori Buffalo PA Work Phone: [facility] 05-03-2024 16:38-0500 Body height 162.6 cm Tori Kylee BEHAVIOR ANALYST Work Phone: [facility] 05-03-2024 16:38-0500 Body mass index (BMI) [Ratio] 32.3 kg/m2 Tori Jasonchol BEHAVIOR ANALYST Work Phone: [facility] 05-03-2024 16:38-0500 Body temperature 97.59 [degF] Tori Martinez BEHAVIOR ANALYST Work Phone: [facility] 05-03-2024 16:38-0500 Body weight 85.37 kg Tori Gomezchol BEHAVIOR ANALYST Work Phone: [facility] 05-03-2024 16:38-0500 Diastolic blood pressure 72 mm[Hg] Tori Gomezchol BEHAVIOR ANALYST Work Phone: [facility] 05-03-2024 16:38-0500 Heart rate 93 /min Tori Gomezchol BEHAVIOR ANALYST Work Phone: [facility] 05-03-2024 16:38-0500 SaO2% (BldA) [Mass fraction] 99 % Tori Gomezchol BEHAVIOR ANALYST Work Phone: [facility] 05-03-2024 16:38-0500 Systolic blood pressure 124 mm[Hg] Tori Martinez BEHAVIOR ANALYST Work Phone: [facility] 04-21-2024 08:49-0500 Body mass index (BMI) [Ratio] 32.06 kg/m2 Herber Nnamdi DO Work Phone: [facility] 04-21-2024 08:49-0500 Body weight 84.73 kg Herber Nnamdi DO Work Phone: [facility] 04-21-2024 08:49-0500 Diastolic blood pressure 72 mm[Hg] Herber Nnamdi DO Work Phone: [facility] 04-21-2024 08:49-0500 Systolic blood pressure 104 mm[Hg] Herber Nnamdi DO Work Phone: [facility] 04-13-2024 15:58-0500 Body mass index (BMI) [Ratio] 31.78 kg/m2 Tori SHIRLEY Work Phone: [facility] 04-13-2024 15:58-0500 Body weight 83.97 kg Tori SHIRLEY Work Phone: [facility] 04-13-2024 15:58-0500 Diastolic blood pressure 80 mm[Hg] Tori SHIRLEY Work Phone: [facility] 04-13-2024 15:58-0500 Systolic blood pressure 120 mm[Hg] Tori Dwight PA Work Phone: [facility] 04-06-2024 16:29-0500 Body mass index (BMI) [Ratio] 31.65 kg/m2 Tori Dwight PA Work Phone: [facility] 04-06-2024 16:29-0500 Body weight 83.64 kg Tori Buffalo PA Work Phone: [facility] 04-06-2024 16:29-0500 Diastolic blood pressure 74 mm[Hg] Tori Buffalo PA Work Phone: [facility] 04-06-2024 16:29-0500 Systolic blood pressure 112 mm[Hg] Tori Buffalo PA Work Phone: [facility] 03-09-2024 16:25-0500 Body mass index (BMI) [Ratio] 30.88 kg/m2 Tori Dwight PA Work Phone: [facility] 03-09-2024 16:25-0500 Body weight 81.6 kg Tori Dwight PA Work Phone: [facility] 03-09-2024 16:25-0500 Diastolic blood pressure 70 mm[Hg] Tori Dwight PA Work Phone: [facility] 03-09-2024 16:25-0500 Systolic blood pressure 114 mm[Hg] Tori Buffalo PA Work Phone: [facility] 02-10-2024 14:44-0400 Body mass index (BMI) [Ratio] 29.39 kg/m2 Herber Nnamdi DO Work Phone: [facility] 02-10-2024 14:44-0400 Body weight 77.68 kg Herber Nnamdi DO Work Phone: [facility] 02-10-2024 14:44-0400 Diastolic blood pressure 68 mm[Hg] Herber Nnamdi DO Work Phone: [facility] 02-10-2024 14:44-0400 Systolic blood pressure 116 mm[Hg] Herber Nnamdi DO Work Phone: [facility] 01-11-2024 16:03-0400 Body mass index (BMI) [Ratio] 28.06 kg/m2 Herber Nnamdi DO Work Phone: [facility] 01-11-2024 16:03-0400 Body weight 74.16 kg Herber Nnamdi DO Work Phone: [facility] 01-11-2024 16:03-0400 Diastolic blood pressure 72 mm[Hg] Herber Nnamdi DO Work Phone: [facility] 01-11-2024 16:03-0400 Systolic blood pressure 118 mm[Hg] Herber Nnamdi DO Work Phone: [facility] 01-29-2022 02:06-0400 Body weight 67.[address] ZEN BREWER . [facility] Comment on above: Performed By: #### [id number] #### [facility] [address] [place] [address] Dr. Garland Kohli Encounters Encounter Date Encounter Type Care Provider Facility Start: 05-31-2024 End: 05-31-2024 Clinisync Result Encounter Herber Nnamdi DO Work Phone: [facility] External Department Unsolicited Start: 05-31-2024 End: 05-31-2024 Clinisync Result Encounter Herber Nnamdi DO Work Phone: [facility] External Department Unsolicited Start: 05-30-2024 End: 05-30-2024 ambulatory HERBER NNAMDI Not Available Start: 05-30-2024 End: 05-30-2024 Bamboo flowsheet Herber Nnamdi DO Work Phone: [facility] Start: 05-30-2024 End: 05-30-2024 Bamboo flowsheet Herber Nnamdi DO Work Phone: [facility] Start: 05-30-2024 End: 05-30-2024 Clinisync Result Encounter Generic External Data Provider [facility] External Department Unsolicited Start: 05-25-2024 End: 05-25-2024 ambulatory HERBER NNAMDI [...] Start: 05-09-2024 End: 05-09-2024 flow sheet Tori Pepe PA Work Phone: [...] Office outpatient visit 25 minutes Tori Martinez BEHAVIOR ANALYST Work Phone: [facility] Comment on above: Need for follow-up c are after discharge (Primary Dx) Start: 05-03-2024 End: 05-03-2024 ambulatory TORI MARTINEZ Not Available Start: 05-03-2024 End: 05-03-2024 Bamboo flowsheet Tori Martinez BEHAVIOR ANALYST Work Phone: [facility] Start: 05-03-2024 End: 05-03-2024 Bamboo flowsheet Tori Martinez BEHAVIOR ANALYST Work Phone: [facility] Start: 04-21-2024 [...] PA Work Phone: [facility] Start: 04-13-2024 End: 04-13-2024 Bamboo flowsheet Tori Pepe PA Work Phone: [facility] Start: 04-06-2024 End: 04-06-2024 ambulatory TORI PEPE Not Available Start: 04-06-2024 End: 04-06-2024 flow sheet Tori SHIRLEY Work Phone: [facility] Comment on above: Second trimester pre gnancy; 27 weeks gestation of Start: 04-06-2024 End: 04-06-2024 Bamboo flowsheet Tori SHIRLEY Work Phone: [facility] Start: 04-06-2024 End: 04-06-2024 Bamboo flowsheet Tori SHIRLEY Work Phone: [facility] Start: 03-19-2024 End: 03-19-2024 Clinisync Result Encounter Tori SHIRLEY Work Phone: [facility] Unsolicited Start: 03-19-2024 End: 03-19-2024 Clinisync Result Encounter Tori SHIRLEY Work Phone: [facility] Unsolicited Start: 03-09-2024 End: 03-09-2024 ambulatory TORI PEPE Not Available Start: 03-09-2024 End: 03-09-2024 flow sheet Tori SHIRLEY Work Phone: [facility] Comment on above: Encounter for follow -up ultrasound of anatomy; Second trimester ; 23 weeks gestation of ; Hypothyroidism, unspecified type (CMS/HCC); Diabetes mellitus screening; Anxiety, generalized (CMS/HCC) Start: 03-09-2024 End: 03-09-2024 Bamboo flowsheet Tori SHIRLEY Work Phone: [facility] Start: 03-09-2024 End: 03-09-2024 Bamboo [...] encounter procedure Herber Nnamdi DO Work Phone: [facility] Start: 02-10-2024 End: 02-10-2024 Periodic preventive med est patient 18-39 yrs Herber Nnamdi DO Work Phone: [facility] Comment on above: Well [...] flow sheet Herber Nnamdi DO Work Phone: [facility] Comment on above: Second trimester pre gnancy; Other specified hypothyroidism (CMS/HCC); Moderate asthma, unspecified whether complicated, unspecified whether persistent (CMS/HCC) Start: 01-11-2024 End: 01-11-2024 ambulatory HERBER NNAMDI Not Available Start: 01-11-2024 End: 01-11-2024 Bamboo flowsheet Herber Nnamdi DO Work Phone: [facility] Start: 01-11-2024 End: 01-11-2024 Bamboo flowsheet Herber Nnamdi DO Work Phone: [facility] Start: 12-11-2023 End: 12-11-2023 ambulatory HERBER NNAMDI Not Available Start: 10-16-2023 End: 10-16-2023 ambulatory TORI WARCHOL Not Available Start: 07-17-2023 End: 07-17-2023 ambulatory TORI WARCHOL Not Available Start: 07-13-2023 End: 07-13-2023 Patient encounter procedure MD Carlos Alberto Coleman Work Phone: [facility] Start: 07-13-2023 End: 07-13-2023 ambulatory MD Carlos Alberto Coleman Work Phone: [facility] Work Phone: Start: 07-13-2023 End: 07-13-2023 ambulatory SOFIE GR Not Available Start: 06-02-2023 Refill Tori Martinez BEHAVIOR ANALYST Work Phone: [facility] Comment on above: Attention deficit hy peractivity disorder (ADHD), combined type ([facility]) Start: 07-04-2022 End: 07-14-2022 ambulatory ÁNGEL SINHA [...] abnormal findings DR ZEN BREWER . [facility] Start: 01-17-2022 End: 01-17-[address] ZEN BREWER . Facility:[facility] Start: 01-17-2022 End: 01-17-2022 Encounter for gynecological examination (general) (routine) without abnormal findings DR ZEN BREWER . Facility:[facility] Start: 01-04-2022 End: 01-05-2022 ambulatory ÁNGEL SINHA Facility:[facility] Start: 12-14-2021 End: 12-15-[address] ZEN BREWER . Facility:[facility] Start: 11-26-2021 End: 11-27-2021 ambulatory ÁNGEL SINHA Facility:[facility] Start: 11-24-2018 End: 11-24-2018 Patient encounter procedure [facility] Start: 11-10-2018 End: 11-15-2018 Patient encounter procedure [facility] Procedures Date Procedure Procedure Detail Performing Clinician Start: 05-31-2024 US OB BPP W NON-STRESS Herber Nnamdi DO Work Phone: Start: 05-30-2024 ALL THYROID STIM HORMONE Herber Nnamdi DO Work Phone: Start: 05-25-2024 Urnls dip stick/tabl et rgnt [...] Phone: Start: 01-22-2024 ALL THYROID STIM HORMONE [facility] DO Work Phone: Start: 01-11-2024 Urnls dip stick/tabl et rgnt non-auto w[facility] Start: 07-13-2023 Respiratory Panel [...] MODE RENEE Start: 11-24-2018 DISCHARGE PATIENT NORMA Campbell THELMA Start: 11-24-2018 BEDREST MODE ESPINO Start: [...] 2024 Influenza vaccination Influenza Vacc ine (#1) [facility] Comment on above: Postponed from 12/26 (Patient Refused) Start: 06-22-2024 End: 06-22-2024 Patient encounter procedure 06/22/2024 3:50 PM EST Routine [facility] [address] [place] [phone] Herber Coto, DO [address] [place] [address] [facility] Start: 06-13-2024 End: 06-13-2024 Patient encounter procedure 06/13/2024 3:20 PM EST Routine [facility] [address] [place] [phone] Herber Coto, DO [address] [place] [address] [facility] Start: 06-06-2024 End: 06-06-2024 Patient encounter procedure 06/06/2024 4:00 PM EST Routine [facility] [address] [place] [phone] Tori Pepe PA [address] [place] [address] [facility] Start: 05-30-2024 End: 05-30-2024 Patient encounter procedure 05/30/2024 3:00 PM EST Routine [facility] [address] [place] [phone] Herber Coto, DO [address] [place] [address] [facility] Start: 05-25-2024 End: 05-25-2024 Patient encounter procedure 05/25/2024 2:10 PM EST Routine [facility] [address] [place] [phone] Herber Coto, DO [address] [place] [address] [facility] Start: 05-09-2024 End: 05-09-2024 Patient encounter procedure [facility] Comment on above: Arrived Start: 05-03-2024 End: 05-03-2024 Patient encounter procedure 05/03/2024 4:40 PM EST Office Visit [facility] [address] [place] [address] Tori Martinez, HERRERA [address] [place] [address] Need for follow-up care after discharge (Primary Dx) [facility] Comment on above: Need for follow-up c are after discharge (Primary Dx) Start: 04-21-2024 End: 04-21-2024 Patient encounter procedure 04/21/2024 8:30 AM EST Routine [facility] [address] [place] [phone] Herber Coto, DO [facility] [place] [address] [facility] Start: 04-13-2024 End: 04-13-2024 [...] Routine [facility] [address] [facility] [place] [address] Tori Pepe PA [address] [address] [facility] Start: 04-03-2024 End: 03-04-2025 US for US OB INCOMPLETE ANATOMY Imaging Routine Encounter for follow-up ultrasound of anatomy Expected: 04/03/2024 (Approximate), Expires: 03/04/2025 [facility] Work Phone: Comment on above: Expected: 04/03/2024 (Approximate), Expires: 03/04/2025 Start: 03-09-2024 End: 03-09-2024 Patient encounter procedure 03/09/2024 3:50 PM EST Routine [facility] [address] [place] [phone] Tori Pepe PA [address] [place] [address] [place] [address] [facility] Start: 03-09-2024 End: 03-09-2025 CBC panel - Blood by Automated count CBC Lab Routine Diabetes mellitus screening Expected: 03/09/2024 (Approximate), Expires: 03/09/2025 [facility] Comment on above: Expected: 03/09/2024 (Approximate), Expires: 03/09/2025 Start: 03-09-2024 End: 03-09-2025 Measurement of glucose 1 hour after glucose challenge for glucose tolerance test Glucose tolerance, 1 hour Lab Routine Diabetes mellitus screening Expected: 03/09/2024 (Approximate), Expires: 03/09/2025 [facility] Comment on above: Expected: 03/09/2024 (Approximate), Expires: 03/09/2025 Start: 03-09-2024 End: 03-09-2025 US for US OB SCAN FOR GROWTH Imaging Routine Hypothyroidism, unspecified type (CMS/HCC) Expected: 03/09/2024 (Approximate), Expires: 03/09/2025 [facility] Comment on above: Expected: 03/09/2024 (Approximate), Expires: 03/09/2025 Start: 02-10-2024 End: 02-09-2025 Alpha fetoprotein, maternal Alpha fetoprotein, maternal Lab Routine Second trimester 19 weeks gestation of Expected: 02/10/2024 (Approximate), Expires: 02/09/2025 [facility] Comment on above: Expected: 02/10/2024 (Approximate), Expires: 02/09/2025 Start: 02-10-2024 End: 02-09-2025 US for US OB ANATOMY SINGLE W US OB CERVICAL LENGTH Imaging Routine Screening, , for anatomic survey Expected: 02/10/2024 (Approximate), Expires: 02/09/2025 [facility] Comment on above: Expected: 02/10/2024 (Approximate), Expires: 02/09/2025 Start: 02-10-2024 End: 02-10-2024 Patient encounter procedure 02/10/2024 1:50 PM EDT Routine [facility] [address] [facility] [place] [phone] Herber Coto, DO [address] [place] [address] [facility] Start: 01-11-2024 End: 01-11-2024 Patient encounter procedure 01/11/2024 3:50 PM EDT Routine [facility] [address] [place] [phone] Herber Coto, DO [address] [place], [place] [phone] Arrived [facility] Comment on above: Arrived Start: 12-27-2023 Influenza vaccination Influenza Vacc ine (#1) [facility] Start: 10-25-2023 Influenza vaccination Influenza Vacc ine (#1) [facility] Comment on above: Postponed from 12/26 (Patient Refused) Start: 10-25-2023 Screening for malign ant neoplasm of cervix [facility] Start: 07-17-2023 End: 07-17-2023 Patient encounter procedure 07/17/2023 8:00 AM EDT Office Visit [facility] [address] [place] [phone] Tori Martinez NP [address] [place] [address] [facility] Start: 2014 Screening for malign ant neoplasm of cervix Pap Smear [facility] CHLAMYDIA TRACHOMATI S (GENITO/STI) CHLAMYDIA TRACHOMATIS (GENITO/STI) Lab Routine Screen for STD (sexually transmitted disease) Vaginal discharge Ordered: 02/10/2024 [facility] Comment on above: Ordered: 02/10/2024 Cytology Cervical or vaginal smear or scraping study Pap Smear Pathology and Cytology Routine Well woman exam with routine gynecological exam Ordered: 02/10/2024 [facility] Comment on above: Ordered: 02/10/2024 Human papilloma viru s DNA [Presence] in Unspecified specimen by Probe with amplification HPV DNA probe, amplified Microbiology Routine Well woman exam with routine gynecological exam Ordered: 02/10/2024 [facility] Comment on above: Ordered: 02/10/2024 Neisseria gonorrhoea e DNA [Presence] in Unspecified specimen by JUAN with probe detection Neisseria gonorrhea DNA probe, direct Lab Routine Screen for STD (sexually transmitted disease) Vaginal discharge Ordered: 02/10/2024 [facility] Comment on above: Ordered: 02/10/2024 SURESWAB(R) ADVANCED VAGINITIS PLUS, TMA SURESWAB(R) ADVANCED VAGINITIS PLUS, TMA Pathology and Cytology Routine Screen for STD (sexually transmitted disease) Vaginal discharge Ordered: 02/10/2024 [facility] Work Phone: Comment on above: Ordered: 02/10/2024 Thyrotropin [Units/volume] in Serum or Plasma TSH Lab Routine Other specified hypothyroidism (CMS/HCC) Ordered: 01/11/2024 [facility] Work Phone: Comment on above: Ordered: 01/11/2024 Thyrotropin [Units/volume] in Serum or Plasma TSH Lab Routine Hypothyroidism, unspecified type ([facility]) Ordered: 04/13/2024 [facility] Comment on above: Ordered: 04/13/2024 Immunizations Immunization Date Immunization Notes Care Provider Byron carlson 05-05-2015 tetanus toxoid, redu catherine diphtheria toxoid, and acellular pertussis vaccine, adsorbed Tori Warchol BEHAVIOR ANALYST Work Phone: [facility] 02-14-2009 influenza, seasonal, injectable Tori Warchol BEHAVIOR ANALYST Work Phone: [facility] 02-14-2009 influenza virus vacc ine, unspecified formulation Tori Warchol BEHAVIOR ANALYST Work Phone: [facility] 12-12-2005 hepatitis A vaccine, unspecified formulation Tori Warchol BEHAVIOR ANALYST Work Phone: [facility] 12-12-2005 tetanus toxoid, redu catherine diphtheria toxoid, and acellular pertussis vaccine, adsorbed Tori Warchol BEHAVIOR ANALYST Work Phone: [facility] 11-19-1998 diphtheria, tetanus toxoids and acellular pertussis vaccine, unspecified formulation Tori Warchol BEHAVIOR ANALYST Work Phone: [facility] 11-19-1998 measles, mumps and rubella virus vaccine Tori Warchol BEHAVIOR ANALYST Work Phone: [facility] 11-19-1998 trivalent poliovirus vaccine, live, oral Tori Warchol BEHAVIOR ANALYST Work Phone: [facility] 09-14-1995 diphtheria, tetanus toxoids and acellular pertussis vaccine, unspecified formulation Tori Warchol BEHAVIOR ANALYST Work Phone: [facility] 09-14-1995 haemophilus influenz ae type b vaccine, conjugate unspecified formulation Tori Warchol BEHAVIOR ANALYST Work Phone: [facility] 11-20-1994 DTP-Haemophilus influenzae type b conjugate vaccine Tori Warchol BEHAVIOR ANALYST Work Phone: [facility] 11-20-1994 hepatitis B vaccine, pediatric or pediatric/adolescent dosage Tori Warchol BEHAVIOR ANALYST Work Phone: [facility] 11-20-1994 measles, mumps and rubella virus vaccine Tori Warchol BEHAVIOR ANALYST Work Phone: [facility] 11-20-1994 trivalent poliovirus vaccine, live, oral Tori Warchol BEHAVIOR ANALYST Work Phone: [facility] 09-18-1994 DTP-Haemophilus influenzae type b conjugate vaccine Tori Warchol BEHAVIOR ANALYST Work Phone: [facility] 09-18-1994 hepatitis B vaccine, pediatric or pediatric/adolescent dosage Tori Warchol BEHAVIOR ANALYST Work Phone: [facility] 09-18-1994 trivalent poliovirus vaccine, live, oral Tori Warchol BEHAVIOR ANALYST Work Phone: [facility] 1993 diphtheria, tetanus toxoids and pertussis vaccine Tori Warchol BEHAVIOR ANALYST Work Phone: [facility] 1993 haemophilus influenz ae type b vaccine, conjugate unspecified formulation Tori Warchol BEHAVIOR ANALYST Work Phone: [facility] 1993 hepatitis B vaccine, pediatric or pediatric/adolescent dosage Tori Warchol BEHAVIOR ANALYST Work Phone: [facility] 1993 trivalent poliovirus vaccine, live, oral Tori Warchol BEHAVIOR ANALYST Work Phone: [facility] Payers Date Payer Category Payer Self-pay [id number] 2023 Medicaid [id number] 2022 Blue Cross Blue Shield [id number] 2022 Unknown BCBS BCBS xxxxxx [id number] 2022-Present [phone] [address] [place] [address] [id number] 2017 Private Health Insurance [id number] 1993 Unknown [id number] 2.16.840.1.312994.3.579.2.1 76 1993 Unknown [id number] 2.16.840.1.134152.3.579.2.1 76 1993 Unknown [id number] 2.16.840.1.914852.3.579.2.5 93 1993 Unknown [id number] 2.16.840.1.101525.3.579.2.5 93 1993 Unknown [id number] 2.16.840.1.845284.3.579.2.5 93 1993 Unknown [id number] 2.16.840.1.419900.3.579.2.5 93 1993 Unknown [id number] 2.16.840.1.361691.3.579.2.5 93 1993 Unknown [id number] 2.16.840.1.336718.3.579.2.5 93 1993 Unknown [id number] 2.16.840.1.012866.3.579.2.5 93 1993 Unknown [id number] 2.16.840.1.629628.3.579.2.5 93 1993 Unknown [id number] 2.16.840.1.692428.3.579.2.5 93 1993 Unknown [id number] 2.16.840.1.153123.3.579.2.5 93 1993 Unknown [id number] 2.16.840.1.714378.3.579.2.5 93 1993 Unknown [id number] 2.16.840.1.089106.3.579.2.5 93 1993 Unknown [id number] 2.16.840.1.638299.3.579.2.5 93 1993 Unknown [id number] 2.16.840.1.709067.3.579.2.5 93 1993 Unknown [id number] 2.16.840.1.640412.3.579.2.1 259 1993 Unknown [id number] 2.16.840.1.514047.3.579.2.1 259 1993 Unknown [id number] 2.16.840.1.523121.3.579.2.1 259 1993 Unknown [id number] 2.16.840.1.661634.3.579.2.1 259 1993 Unknown [id number] 2.16.840.1.873784.3.579.2.1 259 1993 Unknown [id number] 2.16.840.1.588345.3.579.2.1 259 1993 Unknown [id number] 2.16.840.1.996029.3.579.2.1 259 1993 Unknown [id number] 2.16.840.1.749541.3.579.2.1 259 1993 Unknown [id number] 2.16.840.1.495444.3.579.2.1 259 1993 Unknown [id number] 2.16.840.1.405132.3.579.2.1 259 1993 Unknown [id number] 2.16.840.1.370551.3.579.2.1 259 1993 Unknown [id number] 2.16.840.1.745233.3.579.2.1 259 1993 Unknown [id number] 2.16.840.1.462425.3.579.2.1 259 1993 Unknown [id number] 2.16.840.1.105676.3.579.2.1 259 1959 Self-pay [id number] 1961 Unknown [id number] 1961 Unknown [id number] 1961 Unknown [id number] Unknown [id number] Unknown HCAP/HFA/FAP Active [id number] Unknown [id number] Social History Date Type Detail Facility Start: 08-27-2016 End: 09-25-2022 Tobacco smoking status AZIS Never smoked tobacco [facility] care Start: 09-25-2022 Tobacco use and exposure Smoke less tobacco non-user [facility] Start: 04-16-2023 End: 04-13-2024 Alcohol intake Current drinker of alcohol (finding) [facility] Start: 04-16-2023 End: 05-03-2024 Alcohol intake [...] or more drinks on 1 occasion? Never [facility] Start: 1995 Sex Assigned At Female [facility] Start: 09-24-2022 Gender identity Identifies as female gender (finding) [facility] Start: 10-08-2023 [facility] Start: 05-03-2024 End: 05-25-2024 Alcoholic beverage intake Ex-drinker (finding) [facility] Medical Equipment Procedure Code Equipment Code Equipment Origin al Text Equipment Identifier Dates 1 strip by In Vi tro route Daily Use in the morning prior to breakfast, 1 hour after each meal for a total of 4times daily. [id number] Start: 03-21-2024 End: 04-20-2024 1 each by In Vit ro route Daily Use to check FSBS four times daily [id number] Start: 03-21-2024 End: 04-20-2024 Clinical Notes 06-02-2023 to 05-25-2024 Lillie Azul LPN - 05/25/2024 2:10 PM FERN Chin - 05/09/2024 3:50 PM Carmen Martinez NP - 05/03/2024 4:40 PM ESTPatient Letty AzulABBEY - 04/21/2024 8:30 AM EST Note Date [...] 81 mg, Daily Blood Glucose Monitoring Suppl ([employer] Glucometer) w/Device kit 1 kit, Does not [...] esophagitis 09/01/2022 Moderate persistent asthma without complication [place] 09/01/2022 Hypothyroidism, unspecified [place] 03/02/2020 Moderate asthma ([facility]) 01/11/2024 30 weeks gestation of 04/21/2024 Third trimester 04/21/2024 Resolved Ambulatory Problems Diagnosis Date Noted Acquired hypothyroidism ([facility]) 09/01/2022 Allergic rhinitis 09/01/2022 Amenorrhea 09/01/2022 Asthma without status asthmaticus ([facility]) 09/01/2022 Attention deficit hyperactivity disorder ([facility]) 09/01/2022 Asthma affecting , antepartum [place] 09/01/2022 Binge eating disorder 09/01/2022 Difficulty concentrating 09/01/2022 Irregular menstrual cycle 09/01/2022 Left sided sciatica 09/01/2022 Insomnia 09/01/2022 Migraines [place] 09/01/2022 Metallic taste 09/01/2022 Mild persistent asthma without complication [place] 09/01/2022 MTHFR mutation 09/01/2022 Nondependent cannabis abuse 09/01/2022 Other chronic pain 09/01/2022 Seasonal allergies 09/01/2022 Skin sensation disturbance 09/01/2022 Transitory mood disturbance 09/01/2022 Verruca plantaris 09/01/2022 Past Medical History: Diagnosis Date Acid reflux ADHD (attention deficit hyperactivity disorder) ([facility]) Ast[place] GERD (gastroesophageal reflux disease) Hypothyroid [place] Lactose intolerance Marijuana use Migraine ([facility]) Mild persistent asthma, uncomplicated ([facility]) Supervision of normal Thyroid disease ([facility]) HISTORY PAST MEDICAL HISTORY SOCIAL HISTORY Past Medical History: Diagnosis Date Acid reflux ADHD (attention deficit hyperactivity disorder) ([facility]) Asthma ([facility] Asthma affecting , antepartum [place] GERD (gastroesophageal reflux disease) Hypothyroid ([facility]) Lactose intolerance Marijuana use Migraine ([facility]) Mild persistent asthma, uncomplicated ([facility]) MTHFR mutation Seasonal allergies Supervision of normal Thyroid disease ([facility]) Social History Tobacco Use Smoking status: Never [...] nursing note reviewed. Exam conducted with a washer and crusher tender present. Vitals: Estimated body mass index is [...] Herber Coto DO documented in this encounter [facility] 05-09-2024 History of Presen t illness [...] esophagitis 09/01/2022 Moderate persistent asthma without complication ([facility]) 09/01/2022 Hypothyroidism, unspecified ([facility]) 03/02/2020 Moderate asthma ([facility]) 01/11/2024 30 weeks gestation of 04/21/2024 Third trimester 04/21/2024 Resolved Ambulatory Problems Diagnosis Date Noted Acquired hypothyroidism ([facility]) 09/01/2022 Allergic rhinitis 09/01/2022 Amenorrhea 09/01/2022 Asthma without status asthmaticus ([facility]) 09/01/2022 Attention deficit hyperactivity disorder ([facility]) 09/01/2022 Asthma affecting , antepartum ([facility]) 09/01/2022 Binge eating disorder 09/01/2022 Difficulty concentrating 09/01/2022 Irregular menstrual cycle 09/01/2022 Left sided sciatica 09/01/2022 Insomnia 09/01/2022 Migraines ([facility]) 09/01/2022 Metallic taste 09/01/2022 Mild persistent asthma without complication ([facility]) 09/01/2022 MTHFR mutation 09/01/2022 Nondependent cannabis abuse 09/01/2022 Other chronic pain 09/01/2022 Seasonal allergies 09/01/2022 Skin sensation disturbance 09/01/2022 Transitory mood disturbance 09/01/2022 Verruca plantaris 09/01/2022 Past Medical History: Diagnosis Date Acid reflux ADHD (attention deficit hyperactivity disorder) ([facility]) Asthma ([facility]) GERD (gastroesophageal reflux disease) Hypothyroid ([facility]) Lactose intolerance Marijuana use Migraine ([facility]) Mild persistent asthma, uncomplicated ([facility]) Supervision of normal Thyroid disease ([facility]) HISTORY PAST MEDICAL HISTORY SOCIAL HISTORY Past Medical History: Diagnosis Date Acid reflux ADHD (attention deficit hyperactivity disorder) ([facility]) Asthma ([facility] Asthma affecting , antepartum ([facility]) GERD (gastroesophageal reflux disease) Hypothyroid ([facility]) Lactose intolerance Marijuana use Migraine ([facility]) Mild persistent asthma, uncomplicated ([facility]) MTHFR mutation Seasonal allergies Supervision of normal Thyroid disease ([facility]) Social History Tobacco Use Smoking status: Never [...] of: FERN Luis documented in this encounter [facility] 05-03-2024 History of Presen t illness [...] each, Rfl: 3 Blood Glucose Monitoring Suppl ([employer] Glucometer) w/Device kit, 1 kit Daily Use [...] not improve . documented in this encounter [facility] 05-03-2024 Instructions Tori Martinez NP - 05/03/2024 4:40 PM EST PATIENT EDUCATION: ER follow-up The patient was seen today in follow-up of recent hospital ER/UC visit. All available records/labs/diagnostics were reviewed and discussed with the patient. ER/UC discharge meds were reviewed. Any changes to plan are noted above. documented in this encounter [facility] 04-21-2024 History of Presen t illness [...] to check FSBS. Blood Glucose Monitoring Suppl ([employer] Glucometer) w/Device kit 1 kit, Does not [...] esophagitis 09/01/2022 Moderate persistent asthma without complication ([facility]) 09/01/2022 Hypothyroidism, unspecified ([facility]) 03/02/2020 Moderate asthma ([facility]) 01/11/2024 30 weeks gestation of 04/21/2024 Third trimester 04/21/2024 Resolved Ambulatory Problems Diagnosis Date Noted Acquired hypothyroidism ([facility]) 09/01/2022 Allergic rhinitis 09/01/2022 Amenorrhea 09/01/2022 Asthma without status asthmaticus ([facility]) 09/01/2022 Attention deficit hyperactivity disorder ([facility]) 09/01/2022 Asthma affecting , antepartum ([facility]) 09/01/2022 Binge eating disorder 09/01/2022 Difficulty concentrating [...] Acid reflux ADHD (attention deficit hyperactivity disorder) ([facility]) Asthma ([facility]) GERD (gastroesophageal reflux disease) Hypothyroid ([facility]) Lactose intolerance Marijuana use Migraine (CMS/HCC) Mild persistent asthma, uncomplicated ([facility]) Supervision of normal Thyroid disease ([facility]) HISTORY PAST MEDICAL HISTORY SOCIAL HISTORY Past Medical History: Diagnosis Date Acid reflux ADHD (attention deficit hyperactivity disorder) ([facility]) Asthma (CMS/HCC) Asthma affecting , antepartum ([facility]) GERD (gastroesophageal reflux disease) Hypothyroid ([facility]) Lactose intolerance Marijuana use Migraine ([facility]) Mild persistent asthma, uncomplicated ([facility]) MTHFR mutation Seasonal allergies Supervision of normal Thyroid disease ([facility]) Social History Tobacco Use Smoking status: Never [...] nursing note reviewed. Exam conducted with a washer and crusher tender present. Vitals: Estimated body mass index is [...] Herber Coto DO documented in this encounter [facility] 04-13-2024 History of Presen t illness [...] to check FSBS. Blood Glucose Monitoring Suppl ([employer] Glucometer) w/Device kit 1 kit, Does not [...] esophagitis 09/01/2022 Moderate persistent asthma without complication [place] 09/01/2022 Hypothyroidism, unspecified [place] 03[facility]02/2020 Moderate asthma ([facility]) 01/11/2024 Resolved Ambulatory Problems Diagnosis Date Noted Acquired hypothyroidism [place] 09/01/2022 Allergic rhinitis 09/01/2022 Amenorrhea 09/01/2022 Asthma without status asthmaticus [place] 09/01/2022 Attention deficit hyperactivity disorder ([facility] 09/01/2022 Asthma affecting , antepartum [place] 09/01/2022 Binge eating disorder 09/01/2022 Difficulty concentrating 09/01/2022 Irregular menstrual cycle 09/01/2022 Left sided sciatica 09/01/2022 Insomnia 09/01/2022 Migraines [place] 09/01/2022 Metallic taste 09/01/2022 Mild persistent asthma without complication ([facility] 09/01/2022 MTHFR mutation 09/01/2022 Nondependent cannabis abuse 09/01/2022 Other chronic pain 09/01/2022 Seasonal allergies 09/01/2022 Skin sensation disturbance 09/01/2022 Transitory mood disturbance 09/01/2022 Verruca plantaris 09/01/2022 Past Medical History: Diagnosis Date Acid reflux ADHD (attention deficit hyperactivity disorder) ([facility]) Asthma [place] GERD (gastroesophageal reflux disease) Hypothyroid [place] Lactose intolerance Marijuana use Migraine [place] Mild persistent asthma, uncomplicated [place] Supervision of normal Thyroid disease ([facility]) HISTORY PAST MEDICAL HISTORY SOCIAL HISTORY Past Medical History: Diagnosis Date Acid reflux ADHD (attention deficit hyperactivity disorder) ([facility]) Asthma ([facility]) Asthma affecting , antepartum [place] GERD (gastroesophageal reflux disease) Hypothyroid (CMS/HCC) Lactose [...] of: FERN Luis documented in this encounter [facility] 04-06-2024 History of Presen t illness [...] tablet As directed Blood Glucose Monitoring Suppl ([employer] Glucometer) w/Device kit 1 kit, Does not [...] esophagitis 09/01/2022 Moderate persistent asthma without complication [place] 09/01/2022 Hypothyroidism, unspecified [place] 03/02/2020 Moderate asthma ([facility] 01/11/2024 Resolved Ambulatory Problems Diagnosis Date Noted Acquired hypothyroidism ([facility] 09/01/2022 Allergic rhinitis 09/01/2022 Amenorrhea 09/01/2022 Asthma without status asthmaticus [place] 09/01/2022 Attention deficit hyperactivity disorder ([facility] 09/01/2022 Asthma affecting , antepartum ([facility]) 09/01/2022 Binge eating disorder 09/01/2022 Difficulty concentrating 09/01/2022 Irregular menstrual cycle 09/01/2022 Left sided sciatica 09/01/2022 Insomnia 09/01/2022 Migraines ([facility] 09/01/2022 Metallic taste 09/01/2022 Mild persistent asthma without complication ([facility] 09/01/2022 MTHFR mutation 09/01/2022 Nondependent cannabis abuse 09/01/2022 Other chronic pain 09/01/2022 Seasonal allergies 09/01/2022 Skin sensation disturbance 09/01/2022 Transitory mood disturbance 09/01/2022 Verruca plantaris 09/01/2022 Past Medical History: Diagnosis Date Acid reflux ADHD (attention deficit hyperactivity disorder) ([facility]) Asthma ([facility]) GERD (gastroesophageal reflux disease) Hypothyroid [place] Lactose intolerance Marijuana use Migraine ([facility] Mild persistent asthma, uncomplicated [place] Supervision of normal Thyroid disease ([facility] HISTORY PAST MEDICAL HISTORY SOCIAL HISTORY Past Medical History: Diagnosis Date Acid reflux ADHD (attention deficit hyperactivity disorder) ([facility]) Asthma ([facility] Asthma affecting , antepartum [place] GERD (gastroesophageal reflux disease) Hypothyroid ([facility]) Lactose intolerance Marijuana use Migraine ([facility] Mild persistent asthma, uncomplicated ([facility]) MTHFR mutation Seasonal allergies Supervision of normal Thyroid disease ([facility]) Social History Tobacco Use Smoking status: Never [...] of: FERN Luis documented in this encounter [facility] 03-09-2024 History of Presen t illness [...] esophagitis 09/01/2022 Moderate persistent asthma without complication [place] 09/01/2022 Hypothyroidism, unspecified ([facility]) 03/02/2020 Moderate asthma ([facility]) 01/11/2024 Resolved Ambulatory Problems Diagnosis Date Noted Acquired hypothyroidism ([facility]) 09/01/2022 Allergic rhinitis 09/01/2022 Amenorrhea 09/01/2022 Asthma without status asthmaticus ([facility]) 09/01/2022 Attention deficit hyperactivity disorder ([facility]) 09/01/2022 Asthma affecting , antepartum ([facility]) 09/01/2022 Binge eating disorder 09/01/2022 Difficulty concentrating 09/01/2022 Irregular menstrual cycle 09/01/2022 Left sided sciatica 09/01/2022 Insomnia 09/01/2022 Migraines ([facility]) 09/01/2022 Metallic taste 09/01/2022 Mild persistent asthma without complication ([facility]) 09/01/2022 MTHFR mutation 09/01/2022 Nondependent cannabis abuse 09/01/2022 Other chronic pain 09/01/2022 Seasonal allergies 09/01/2022 Skin sensation disturbance 09/01/2022 Transitory mood disturbance 09/01/2022 Verruca plantaris 09/01/2022 Past Medical History: Diagnosis Date Acid reflux ADHD (attention deficit hyperactivity disorder) ([facility]) Asthma ([facility]) GERD (gastroesophageal reflux disease) Hypothyroid ([facility]) Lactose intolerance Marijuana use Migraine ([facility]) Mild persistent asthma, uncomplicated ([facility]) Supervision of normal Thyroid disease ([facility]) HISTORY PAST MEDICAL HISTORY SOCIAL HISTORY Past Medical History: Diagnosis Date Acid reflux ADHD (attention deficit hyperactivity disorder) ([facility]) Asthma ([facility] Asthma affecting , antepartum ([facility]) GERD (gastroesophageal reflux disease) Hypothyroid ([facility]) Lactose intolerance Marijuana use Migraine ([facility]) Mild persistent asthma, uncomplicated ([facility]) MTHFR mutation Seasonal allergies Supervision of normal Thyroid disease ([facility]) Social History Tobacco Use Smoking status: Never [...] of: FERN Luis documented in this encounter [facility] 03-09-2024 Miscellaneous Notes Addended by: NIALL CONSTANTINO on: 03/10/2024 09:01 AM Modules accepted: Orders documented in this encounter [facility] 03-09-2024 Note Addended by: NIALL CLEVELAND on: 03/10/2024 09:01 AM Modules accepted: Orders [facility] 03-09-2024 Note Addended by: NIALL CLEVELAND on: 03/10/2024 09:01 AM Modules accepted: Orders [facility] 02-10-2024 History of Presen t illness Narrative [...] esophagitis 09/01/2022 Moderate persistent asthma without complication [place] 09/01/2022 Hypothyroidism, unspecified [place] 03/02/2020 Moderate asthma ([facility]) 01/11/2024 Resolved Ambulatory Problems Diagnosis Date Noted Acquired hypothyroidism [place] 09/01/2022 Allergic rhinitis 09/01/2022 Amenorrhea 09/01/2022 Asthma without status asthmaticus [place] 09/01/2022 Attention deficit hyperactivity disorder ([facility] 09/01/2022 Asthma affecting , antepartum [place] 09/01/2022 Binge eating disorder 09/01/2022 Difficulty concentrating 09/01/2022 Irregular menstrual cycle 09/01/2022 Left sided sciatica 09/01/2022 Insomnia 09/01/2022 Migraines ([facility] 09/01/2022 Metallic taste 09/01/2022 Mild persistent asthma without complication ([facility] 09/01/2022 MTHFR mutation 09/01/2022 Nondependent cannabis abuse 09/01/2022 Other chronic pain 09/01/2022 Seasonal allergies 09/01/2022 Skin sensation disturbance 09/01/2022 Transitory mood disturbance 09/01/2022 Verruca plantaris 09/01/2022 Past Medical History: Diagnosis Date Acid reflux ADHD (attention deficit hyperactivity disorder) ([facility]) Asthma [place] GERD (gastroesophageal reflux disease) Hypothyroid [place] Lactose intolerance Marijuana use Migraine ([facility] Mild persistent asthma, uncomplicated ([facility] Supervision of normal Thyroid disease ([facility] HISTORY PAST MEDICAL HISTORY SOCIAL HISTORY Past Medical History: Diagnosis Date Acid reflux ADHD (attention deficit hyperactivity disorder) ([facility]) Asthma ([facility] Asthma affecting , antepartum [place] GERD (gastroesophageal reflux disease) Hypothyroid ([facility]) Lactose intolerance Marijuana use Migraine (CMS/HCC) Mild [...] Herber Coto DO documented in this encounter [facility] 01-11-2024 History of Presen t illness [...] esophagitis 09/01/2022 Moderate persistent asthma without complication ([facility] 09/01/2022 Hypothyroidism, unspecified ([facility]) 03/02/2020 Resolved Ambulatory Problems Diagnosis Date Noted Acquired hypothyroidism ([facility] 09/01/2022 Allergic rhinitis 09/01/2022 Amenorrhea 09/01/2022 Asthma without status asthmaticus ([facility] [facility] Attention deficit hyperactivity disorder ([facility]) 09/01/2022 Asthma affecting , antepartum ([facility]) 09/01/2022 Binge eating disorder ([facility]) 09/01/2022 Difficulty concentrating 09/01/2022 Irregular menstrual cycle 09/01/2022 Left sided sciatica 09/01/2022 Insomnia 09/01/2022 Migraines ([facility]) 09/01/2022 Metallic taste 09/01/2022 Mild persistent asthma without complication ([facility]) 09/01/2022 MTHFR mutation 09/01/2022 Nondependent cannabis abuse 09/01/2022 Other chronic pain 09/01/2022 Seasonal allergies 09/01/2022 Skin sensation disturbance 09/01/2022 Transitory mood disturbance 09/01/2022 Verruca plantaris 09/01/2022 Past Medical History: Diagnosis Date Acid reflux ADHD (attention deficit hyperactivity disorder) ([facility]) Asthma ([facility]) GERD (gastroesophageal reflux disease) Hypothyroid ([facility]) Lactose intolerance Marijuana use Migraine ([facility]) Mild persistent asthma, uncomplicated ([facility]) Supervision of normal Thyroid disease ([facility]) HISTORY PAST MEDICAL HISTORY SOCIAL HISTORY Past Medical History: Diagnosis Date Acid reflux ADHD (attention deficit hyperactivity disorder) ([facility]) Asthma ([facility]/HCC) Asthma affecting , antepartum ([facility]) GERD (gastroesophageal reflux disease) Hypothyroid ([facility]) Lactose intolerance Marijuana use Migraine ([facility]) Mild persistent asthma, uncomplicated ([facility]) MTHFR mutation Seasonal allergies Supervision of normal Thyroid disease ([facility]) Social History Tobacco Use Smoking status: Never [...] nursing note reviewed. Exam conducted with a washer and crusher tender present. Vitals: Estimated body mass index is [...] or undercooked meat, and stay away from [facility]. Patient has been consulted regarding any further [...] done she will reach out to office. Digital Analyst will be notified at time of delivery [...] . Informed patient since she sees a Supply Assistant to schedule appointment to make sure asthma is controlled during . Patient is currently taking [employer] Chewable kids vitamins. Patient is taking 2 [...] Herber Coto DO documented in this encounter [facility] 06-04-2023 Telephone encount er Note Sent [facility] 06-04-2023 Miscellaneous Notes Formattin g of this note might be different from the original. Sent Patient requesting refill/[facility] documented in this encounter [facility] 06-02-2023 Telephone encount er Note Patient requesting refill/[facility] Evaluation note Diagnosis Attention deficit hyperactivity disorder (ADHD), combined type (CMS/HCC) documented in this encounter [facility] HealthcareEvaluation noteNo assessment information available[facility] Work Phone: Evaluation note* Diagnosis Well woman exam with routine gynecological exam Routine gynecological examination Screening, , for anatomic survey Encounter for anatomic survey Second trimester state, incidental 19 weeks gestation of Screen for STD (sexually transmitted disease) Screening examination for venereal disease Vaginal discharge Leukorrhea, not specified as infective headache in second trimester documented in this encounter [facility] HealthcareEvaluation note* Diagnosis Encounter for follow-up ultrasound of anatomy Second trimester state, incidental 23 weeks gestation of Hypothyroidism, unspecified type (CMS/HCC) Diabetes mellitus screening Screening for diabetes mellitus Anxiety, generalized (CMS/HCC) documented in this encounter [facility] HealthcareEvaluation note* Diagnosis Second trimester state, incidental [...] section and content) DATE CREATED AUTHOR 11/18/2018 [facility] DATE CREATED AUTHOR AUTHOR'S ORGANIZ ATION 11/26/2018 [facility] DATE CREATED AUTHOR AUTHOR'S ORGANIZ ATION 09/09/2022 [facility] DATE CREATED AUTHOR AUTHOR'S ORGANIZ ATION 03/16/2024 [facility] DATE CREATED AUTHOR AUTHOR'S ORGANIZ ATION 06/01/2024 [facility] EPIC Reason for Visit (unrecogniz ed section and content) Reason Onset Date Comments Med Refill 06/02/2023 Reason Comments Routine Visit Care Teams (unrecognized sec tion and content) Learning And Development Director Relationship Specialty Start Date End Date Carlos Alberto Coleman MD [address] [place] [address] PCP - General Family Medicine 09/24/22 Tori Martinez NP [address] [place] [id number] Nurse Practitioner Family Medicine 09/24/22 Sofie Gr NP [address] [place] [address] Nurse Practitioner Pulmonary Disease 04/14/23 Team Status: Active Member Role Status Dates Carlos Alberto Coleman MD Primary Care Provider Active Team Status: Inactive Member Role Status Dates Carlos Alberto Coleman MD Primary Care Provider Active S tart: July 13, 2023 End: July 13, 2023 Sofie Gr NP-C Attending Provider Active Start: July 13, 2023 End: July 13, 2023 Learning And Development Director Relationship Specialty Start Date End Date Carlos Alberto Coleman MD [address] [place] [id number] PCP - General Family Medicine 09/24/22 Tori Martinez NP [address] [facility] PCP - [place] [employer] 05/28/23 Tori Martinez NP [address] [facility] Nurse Practitioner Family Medicine 09/24/22 Sofie Gr NP [address] [place] [address] Nurse Practitioner Pulmonary Disease 04/14/23 Learning And Development Director Relationship Specialty Start Date End Date Carlos Alberto Coleman MD [address] [place] [id number] PCP - General Family Medicine 09/24/22 Tori Martinez NP [address] [place] [address] PCP - [employer] 05/28/23 Tori Martinez NP [address] [place] [address] Nurse Practitioner Family Medicine 09/24/22 Sofie Gr BEHAVIOR ANALYST [address] [place] [phone] Nurse Practitioner Pulmonary Disease 04/14/23 Learning And Development Director Relationship Specialty Start Date End Date Carlos Alberto Coleman MD [address] [place] [address] PCP - General Family Medicine 09/24/22 Tori Martinez NP [address] [place] [address] PCP - [employer] 05/28/23 Tori Martinez BEHAVIOR ANALYST [address] [place] [address] Nurse Practitioner Family Medicine 09/24/22 Sofie Gr BEHAVIOR ANALYST [address] [place] [phone] Nurse Practitioner Pulmonary Disease 04/14/23 Learning And Development Director Relationship Specialty Start Date End Date Carlos Alberto Coleman MD [address] [place] [address] PCP - General Family Medicine 09/24/22 Tori Martinez BEHAVIOR ANALYST [address] [place] [address] PCP - [employer] 05/28/23 Tori Martinez NP [address] [place] [address] Nurse Practitioner Family Medicine 09/24/22 Sofie Gr BEHAVIOR ANALYST [address] [place] [address] Nurse Practitioner Pulmonary Disease 04/14/23 Learning And Development Director Relationship Specialty Start Date End Date Carlos Alberto Coleman MD [address] [place] [address] PCP - General Family Medicine 09/24/22 Tori Martinez BEHAVIOR ANALYST [address] [place] [address] PCP - [employer] 05/28/23 Tori Martinez BEHAVIOR ANALYST [address] [place] [address] Nurse Practitioner Family Medicine 09/24/22 Sofie Gr BEHAVIOR ANALYST [address] [place] [address] Nurse Practitioner Pulmonary Disease 04/14/23 Learning And Development Director Relationship Specialty Start Date End Date Carlos Alberto Coleman MD [address] [place] [address] PCP - General Family Medicine 09/24/22 Tori Martinez NP [address] [place] [address] PCP - [employer] [employer] 05/28/23 Tori Martinez NP [address] [place] [address] Nurse Practitioner Family Medicine 09/24/22 Sofie Gr NP [address] [place] [phone] Nurse Practitioner Pulmonary Disease 04/14/23 Learning And Development Director Relationship Specialty Start Date End Date Carlos Alberto Coelman MD [address] [place] [address] PCP - General Family Medicine 09/24/22 Tori Martinez NP [address] [place] [address] PCP - [employer] [employer] 05/28/23 Tori Martinez NP [address] [place] [address] Nurse Practitioner Family Medicine 09/24/22 Sofie Gr NP [address] [place] [address] Nurse Practitioner Pulmonary Disease 04/14/23 Learning And Development Director Relationship Specialty Start Date End Date Carlos Alberto Coleman MD [address] [place] [address] PCP - General Family Medicine 09/24/22 Tori Martinez NP [address] [place] [id number] PCP - [employer] 05/28/23 Tori Martinez NP [address] [place] [address] Nurse Practitioner Family Medicine 09/24/22 Sofie Gr NP [address] [place] [phone] Nurse Practitioner Pulmonary Disease 04/14/23 Learning And Development Director Relationship Specialty Start Date End Date Carlos Alberto Coleman MD [address] [place] [id number] PCP - General Family Medicine 09/24/22 Tori Martinez, HERRERA [address] [place] [place] [id number] PCP - [employer] 05/28/23 Tori Martinez, HERRERA [address] [place] [address] Nurse Practitioner Family Medicine 09/24/22 Sofie Gr NP [address] [place] [address] Nurse Practitioner Pulmonary Disease 04/14/23 Learning And Development Director Relationship Specialty Start Date End Date Carlos Alberto Coleman MD [address] [place] [address] PCP - General Family Medicine 09/24/22 Tori Martinez, BEHAVIOR ANALYST [address] [place] [address] PCP - [employer] 05/28/23 Tori Martinez, BEHAVIOR ANALYST [address] [place] [address] Nurse Practitioner Family Medicine 09/24/22 Sofie Gr, BEHAVIOR ANALYST [address] [place] [address] Nurse Practitioner Pulmonary Disease 04/14/23 Learning And Development Director Relationship Specialty Start Date End Date Carlos Alberto Coleman MD [address] [place] [address] PCP - General Family Medicine 09/24/22 Tori Martinez, BEHAVIOR ANALYST [address] [place] [id number] PCP - [employer] 05/28/23 Tori Martinez, BEHAVIOR ANALYST [address] [place] [address] Nurse Practitioner Family Medicine 09/24/22 Sofie Gr, BEHAVIOR ANALYST [address] [place] [address] Nurse Practitioner Pulmonary Disease 04/14/23 Learning And Development Director Relationship Specialty Start Date End Date Carlos Alberto Coleman MD [address] [place] [address] PCP - General Family Medicine 09/24/22 Tori Martinez BEHAVIOR ANALYST [address] [place] [address] PCP - [employer] 05/28/23 Tori Martinez NP [address] [place] [address] Nurse Practitioner Family Medicine 09/24/22 Sofie Gr NP [address] [place] [phone] Nurse Practitioner Pulmonary Disease 04/14/23 Learning And Development Director Relationship Specialty Start Date End Date Carlos Alberto Coleman MD [address] [place] [address] PCP - General Family Medicine 09/24/22 Tori Martinez NP [address] [place] [address] PCP - [employer] 05/28/23 Tori Martinez NP [address] [place] [address] Nurse Practitioner Family Medicine 09/24/22 Sofie Gr NP [address] [place] [address] Nurse Practitioner Pulmonary Disease 04/14/23 Learning And Development Director Relationship Specialty Start Date End Date Carlos Alberto Coleman MD [address] [place] [address] PCP - General Family Medicine 09/24/22 Tori Martinez NP [address] [place] [address] PCP - [employer] 05/28/23 Tori Martinez NP [address] [place] [address] Nurse Practitioner Family Medicine 09/24/22 Sofie Gr NP [address] [place] [phone] Nurse Practitioner Pulmonary Disease 04/14/23 Learning And Development Director Relationship Specialty Start Date End Date Carlos Alberto Coleman MD [address] [place] [address] PCP - General Family Medicine 09/24/22 Tori Martinez NP [address] [place] [address] PCP - [employer] 05/28/23 Tori Martinez NP [address] [place] [address] Nurse Practitioner Family Medicine 09/24/22 Sofie Gr NP [address] [place] [address] Nurse Practitioner Pulmonary Disease 04/14/23 Learning And Development Director Relationship Specialty Start Date End Date Carlos Alberto Coleman MD [address] [place] [address] PCP - General Family Medicine 09/24/22 Tori Martinez NP [address] [place] [address] PCP - [employer] 05/28/23 Tori Martinez NP [address] [place] [address] Nurse Practitioner Family Medicine 09/24/22 Sofie Gr NP [address] [place] [address] Nurse Practitioner Pulmonary Disease 04/14/23 Goals (unrecognized [...] BE BASED ON THE PRIMARY CLINICAL RECORDS. [facility] [employer] provides no warranty or guarantee of the accuracy or completeness of information in this document.
[2024-06-02 08:51] VITALS: BP 119/66; PULSE 83
== END 2024-06-02 09:38 | disposition home or self-care (01) ==
LOC: FBCO 00:21 → FBC 08:46
PROVIDERS: PCP Family Medicine; Visit Provider Obstetrics & Gynecology
DX: O24.419 Gestational diabetes mellitus in pregnancy, unspecified control (principal)
CPT/HCPCS: 59025

== ENCOUNTER 2024-06-06 01:28 | Outpatient (OUT) | payer BC, MEDICAID, SELFPAY ==
--- OUTSIDE RECORDS SUMMARY | 2024-06-06 01:34 | XMS_ITS | CCD ---
Author Organization [facility] Care Team Providers Care Photolith Operator Name Role Phone RENEE, MODE R [...] ÁNGEL Attending Unavailable KIEPERT, ÁNGEL Admitting Unavailable KENSINGTON, DR DEANNA Lance Consulting Unavailable PAY ., [...] Alberto Coleman MD Primary Care Provider Kylee BEHAVIORAL INSTRUCTOR, Tori Unavailable Maile BEHAVIORAL INSTRUCTOR, Sofie R Unavailable MD Carlos Alberto Coleman Primary Care Provider HEATHER Gr Attending Provider [phone] Maile BEHAVIORAL INSTRUCTOR, Sofie R Unavailable Kylee BEHAVIORAL INSTRUCTOR, Tori Unavailable Sofie Gr Attending Unavailable Maile, [...] source) Cefuroxime Drug Allergy 04-04-20 22 [facility] (2 sources) Ciprofloxacin Drug Allergy 04-03-20 16 [facility] (2 sources) Doxycycline Drug Allergy 05-20-19 21 vomiting [facility] (1 source) Flupenthixol Drug Allergy 04-04-20 22 [facility] (20 sources) Cefuroxime Drug Allergy 05-20-19 21 Rash [facility] (20 sources) Ciprofloxacin Drug Allergy 09-02-19 23 Shortness of breath [facility] (20 sources) Ciprofloxacin Drug Allergy 09-02-19 23 Shortness of breath [facility] (20 sources) cloNIDine Drug Allergy 03-14-20 21 [facility] (20 sources) cloNIDine Drug Allergy 09-02-19 23 [facility] (20 sources) Doxycycline Drug Allergy 05-20-19 21 GI intolerance [facility] (20 sources) Gluten Propensity to adverse reactions 11-11-19 19 [facility] (20 sources) Lactose (non-medical use) Allergy to substance 09-02-19 23 [facility] (20 sources) Lactose (non-medical use) Drug Intolerance 11-11-19 19 [facility] (20 sources) Octacosanol Drug Intolerance 11-11-19 19 [facility] (20 sources) Other Allergy to substance 11-11-19 19 [facility] (20 sources) Silver Allergy to substance 09-02-19 23 [facility] (20 sources) Wound Dressing Adhesive Drug Allergy 09-02-19 23 [facility] (1 source) Cefuroxime Drug Allergy 05-20-19 [facility] (1 source) Ciprofloxacin Drug Allergy 05-20-19 [facility] (1 source) Doxycycline Drug Allergy 05-20-[address] [facility] Medications Current Medications Medication Drug [...] Drug Class(es) Dates Sig (Normalized) Sig (Original) [id number] 200 actuat albuterol 0.09 mg/actuat metered dose [...] Facility OB BPP W NON-STRESS on 05-31-2024 [place] [address] Ultrasound Report Signed Patient: CECELIA JOHNSON MR#: [id number] : 1995 Acct:[id number] Age/Sex: 28 / F ADM Date: 05/30/24 Loc: US Attending Dr: Herber Coto D.O. Ordering Physician: Herber Coto D.O. Date of Service: 05/30/24 Procedure(s): US OB BPP w non-stress Accession Number(s): [id number] cc: CARLOS ALBERTO COLEMAN ; Herber Coto D.O. [address] [address] Patient Name: CECELIA JOHNSON MRN: [facility]:[id number] date: 1995 Sex: F Assigned Patient Location: [facility] Current Patient Location: US Accession/Order Number: [id number] Exam Date: 05/30/2024 17:24 Report Date: 05/31/2024 [...] M.D. Signed By: 05/31/24916 DD/ 3 TD/TT: Warehouse Technician: [facility] Radiology, Radiologist, MD - 05/31/2024 [place] [address] Ultrasound Report Signed Patient: CECELIA JOHNSON MR#: [id number] : 1995 Acct:[id number] Age/Sex: 28 / F ADM Date: 05/30/24 Loc: US Attending Dr: Herber Coto D.O. Ordering Physician: Herber Coto D.O. Date of Service: 05/30/24 Procedure(s): US OB BPP w non-stress Accession Number(s): [id number] cc: CARLOS ALBERTO COLEMAN ; Herber Coto D.O. The [address] [address] Patient Name: CECELIA JOHNSON MRN: [facility]:[id number] date: 1995 Sex: F Assigned Patient Location: [facility] Current Patient Location: US Accession/Order Number: [id number] Exam Date: 05/30/2024 17:24 Report Date: 05/31/2024 [...] M.D. Signed By: 05/31/24916 DD/ 3 TD/TT: Warehouse Technician: [facility] Radiology Study observation (narrative) [facility] US OB BPP W NON-STRESS Ordered By: Radiologist Radiology on 05-31-2024 [facility] Work Phone: ALL THYROID STIM HORMONEon 0 05-30-2024 TSH Qn 1.826 m[IU]/L [facility] Urinalysis macro (dipstick) panel (U)on 05-25-2024 Bilirubin, UA Negative Negative - 4(70) +++ mg/dL [facility] Blood, UA Negative Negative - 50 Mendel/mcL [facility] Clarity, UA Clear [facility] Color, UA Yellow [facility] Glucose, UA Negative Negative - 1999(110) ++++ mg/dL [facility] Interpretation and review of laboratory results Abnormal [facility] Ketones, UA Positive Negative - 160(16) ++++ mg/dL [facility] Comment on above: trace Leukocytes, UA Positive Negative - 500+++ Leighann/mcL [facility] Comment on above: small Nitrite, UA Negative Negative - Positive [facility] pH, UA 6 5 - 9 [facility] Protein, UA Trace Negative - 2000(20) ++++ mg/dL [facility] Spec Grav, UA 1.03 1 - 1.03 [facility] Urobilinogen, UA 1.0 0.2 - 12 mg/dL [facility] US OB BPP W NON-STRESS on 05-24-2024 [place] [address] Ultrasound Report Signed Patient: CECELIA JOHNSON MR#: [id number] : 1995 Acct:[id number] Age/Sex: 28 / F ADM Date: 05/23/24 Loc: US Attending Dr: Herber Coto D.O. Ordering Physician: Herber Coto D.O. Date of Service: 05/23/24 Procedure(s): US OB BPP w non-stress Accession Number(s): [id number] cc: CARLOS ALBERTO COLEMAN ; Herber Coto D.O. The [place] [id number] Patient Name: CECELIA JOHNSON MRN: [facility]:[id number] date: 1995 Sex: F Assigned Patient Location: [facility] Current Patient Location: Accession/Order Number: [id number] Exam Date: 05/23/2024 19:13 Report Date: 05/24/2024 [...] Signed By: 05/24/24 0427 DD/ 0423 TD/TT: Warehouse Technician: [facility] Radiology, Radiologist, MD - 05/24/2024 The [place] [id number] Ultrasound Report Signed Patient: CECELIA JOHNSON MR#: [id number] : 1995 Acct:[id number] Age/Sex: 28 / F ADM Date: 05/23/24 Loc: US Attending Dr: Herber Coto D.O. Ordering Physician: Herber Coto D.O. Date of Service: 05/23/24 Procedure(s): US OB BPP w non-stress Accession Number(s): [id number] cc: CARLOS ALBERTO COLEMAN ; Herber Coto D.O. The [place] [id number] Patient Name: CECELIA JOHNSON MRN: [id number]:[id number] date: 1995 Sex: F Assigned Patient Location: [facility] Current Patient Location: Accession/Order Number: [id number] Exam Date: 05/23/2024 19:13 Report Date: 05/24/2024 [...] M.D. Signed By: 05/24/24426 DD/ 2 TD/TT: Warehouse Technician: [facility] Radiology Study observation (narrative) [facility] US OB BPP W NON-STRESS Ordered By: Radiologist Radiology on 05-24-2024 [facility] Work Phone: Urinalysis macro (dipstick) panel (U)on 05-09-2024 Bilirubin, UA Negative Negative - 4(70) +++ mg/dL [facility] Blood, UA Negative Negative - 50 Mendel/mcL [facility] Clarity, UA Clear [facility] Color, UA Yellow [facility] Glucose, UA Negative Negative - 1999(110) ++++ mg/dL [facility] Interpretation and review of laboratory results Abnormal [facility] Ketones, UA Negative Negative - 160(16) ++++ mg/dL [facility] Leukocytes, UA Positive Negative - 500+++ Leighann/mcL [facility] Comment on above: small Nitrite, UA Negative Negative - Positive [facility] pH, UA 6 5 - 9 [facility] Protein, UA Negative Negative - 1999(20) ++++ mg/dL [facility] Spec Grav, UA 1.03 1 - 1.03 [facility] Urobilinogen, UA 1.0 0.2 - 12 mg/dL [facility] Urinalysis macro (dipstick) panel (U)on 04-21-2024 Bilirubin, UA Negative Negative - 4(70) +++ mg/dL [facility] Blood, UA Negative Negative - 50 Mendel/mcL [facility] Clarity, UA Clear [facility] Color, UA Light Yellow [facility] Glucose, UA Negative Negative - 1999(110) ++++ mg/dL [facility] Interpretation and review of laboratory results Normal [facility] Ketones, UA Negative Negative - 160(16) ++++ mg/dL [facility] Leukocytes, UA Few Negative - 500+++ Leighann/mcL [facility] Nitrite, UA Negative Negative - Positive [facility] pH, UA 5.5 5 - 9 [facility] Protein, UA Trace Negative - 1999(20) ++++ mg/dL [facility] Spec Grav, UA 1.03 1 - 1.03 [facility] Urobilinogen, UA 0.2 0.2 - 12 mg/dL [facility] Urinalysis macro (dipstick) panel (U)on 04-13-2024 Bilirubin, UA Negative Negative - 4(70) +++ mg/dL [facility] Blood, UA Negative Negative - 50 Mendel/mcL [facility] Clarity, UA Clear [facility] Color, UA Yellow [facility] Glucose, UA Negative Negative - 1999(110) ++++ mg/dL [facility] Interpretation and review of laboratory results Normal [facility] Ketones, UA Negative Negative - 160(16) ++++ mg/dL [facility] Leukocytes, UA Negative Negative - 500+++ Leighann/mcL [facility] Nitrite, UA Negative Negative - Positive [facility] pH, UA 5.5 5 - 9 [facility] Protein, UA Negative Negative - 1999(20) ++++ mg/dL [facility] Spec Grav, UA 1.03 1 - 1.03 [facility] Urobilinogen, UA 0.2 0.2 - 12 mg/dL [facility] Urinalysis macro (dipstick) panel (U)on 04-06-2024 Bilirubin, UA Negative Negative - 4(70) +++ mg/dL [facility] Blood, UA Negative Negative - 50 Mendel/mcL [facility] Clarity, UA Clear [facility] Color, UA Yellow [facility] Glucose, UA Negative Negative - 1999(110) ++++ mg/dL [facility] Interpretation and review of laboratory results Normal [facility] Ketones, UA Negative Negative - 160(16) ++++ mg/dL [facility] Leukocytes, UA Negative Negative - 500+++ Leighann/mcL [facility] Nitrite, UA Negative Negative - Positive [facility] pH, UA 6 5 - 9 [facility] Protein, UA Negative Negative - 1999(20) ++++ mg/dL [facility] Spec Grav, UA 1.015 1 - 1.03 [facility] Urobilinogen, UA 0.2 0.2 - 12 mg/dL [facility] ALL CBC WITH AUTO DIFFon BASOPHILS ABSOLUTE AUTO 0 [facility] Basophils/100 WBC (Bld) 0.2 % 0.2 - 2.0 % [facility] Eosinophils/100 WBC (Bld) 0.7 % Low 0.9 - 7.0 % [facility] Erythrocyte distribution width (RBC) [Ratio] 12.3 % 11.0 - 15.0 % [facility] Hematocrit (Bld) [Volume fraction] 35.3 % Low 36.0 - 48.0 % [facility] Hemoglobin (Bld) [Mass/Vol] 11.8 g/dL Low 12.0 - 16.0 g/dL [facility] IMMATURE GRANULOCYTES ABS AUTO 0.04 High [facility] Immature granulocytes/100 WBC (Bld) 0.5 % 0.0 - 0.5 % [facility] Interpretation and review of laboratory results Abnormal [facility] LYMPHOCYTES ABSOLUTE AUTO 1.5 [facility] Lymphocytes/100 WBC (Bld) 17.1 % Low 20.5 - 60.0 % [facility] MCH (RBC) [Entitic mass] 31.1 pg 26.7 - 34.0 pg [facility] MCHC (RBC) [Mass/Vol] 33.4 g/dL 29.9 - 35.2 g/dL [facility] MCV (RBC) [Entitic vol] 93.1 fL 81.0 - 99.0 fL [facility] MONOCYTES ABSOLUTE AUTO 0.6 [facility] Monocytes/100 WBC (Bld) 7.2 % 1.7 - 12.0 % [facility] NEUTROPHILS ABSOLUTE AUTO 6.5 [facility] Neutrophils/100 WBC (Bld) 74.3 % 43.0 - 75.0 % [facility] Platelet mean volume (Bld) [Entitic vol] 10.6 fL 9.5 - 13.5 fL [facility] TBH EO # 0.1 [facility] TB PLT 178 [facility] RBC 3.79 Low [facility] WBC 8.8 [facility] IGP,APTIMA HPV,AGE GDLNon AGE GDLN ACOG TESTING Note . [facility] Comment on above: TESTS RESULT FLAG UN ITS REF RANGE LAB Clinician Provided Cytology Information Source.............Cervix No. of containers..01 ThinPrep Vial Age Algo ACOG Sonja... FLAG LEGEND: L-Low Normal,H-High Normal,LL-Alert Low,HH-Alert High <-Panic Low,>-Panic High,A-Abnormal,AA-Critical Abnormal Performed at: 01 =[address] [address] Radha Browne MD, HPV APTIMA Negative Negative [facility] Comment on above: This nucleic acid am plification test detects fourteen high- risk HPV types (16,18,31,33,35,39,45,51,52,56,58,59,66,68) without differentiation. Performed at: =[address] [id number] Fitness Club Manager: Radha Browne MD, Phone: [phone] Performed at: [address] [id number] Fitness Club Manager: Radha Browne MD, Phone: [phone] IGP, APTIMA HPV, RFX 16/18,45 Note . [facility] Comment on above: TESTS RESULT FLAG UN ITS REF RANGE LAB DIAGNOSIS: 02 NEGATIVE FOR INTRAEPITHELIAL LESION OR MALIGNANCY. Specimen adequacy: 02 Satisfactory for evaluation. No endocervical component is identified. Performed by: 02 Danie Vargas, Jacker Feeder (ASC) . 02 Note: Note 02 The [...] High,A-Abnormal,AA-Critical Abnormal Performed at: 02 [facility] [address] [address] Radha Browne MD, [facility] Cervical or vaginal smear or scraping studyon 02-10-2024 [facility] Urinalysis macro (dipstick) panel (U)on 02-10-2024 Bilirubin, UA Negative Negative - 4(70) +++ mg/dL [facility] Blood, UA Negative Negative - 50 Mendel/mcL [facility] Clarity, UA Clear [facility] Color, UA Yellow [facility] Glucose, UA Negative Negative - 1999(110) ++++ mg/dL [facility] Interpretation and review of laboratory results Abnormal [facility] Ketones, UA Negative Negative - 160(16) ++++ mg/dL [facility] Leukocytes, UA Trace Negative - 500+++ Leighann/mcL [facility] Nitrite, UA Negative Negative - Positive [facility] pH, UA 7 5 - 9 [facility] Protein, UA Negative Negative - 1999(20) ++++ mg/dL [facility] Spec Grav, UA 1.02 1 - 1.03 [facility] Urobilinogen, UA 0.2 0.2 - 12 mg/dL [facility] ALL THYROID STIM HORMONEon 0 01-22-2024 TSH Qn 1.921 m[IU]/L [facility] Urinalysis macro (dipstick) panel (U)on 01-11-2024 Bilirubin, UA Negative Negative - 4(70) +++ mg/dL [facility] Blood, UA Negative Negative - 50 Mendel/mcL [facility] Clarity, UA Clear [facility] Color, UA Yellow [facility] Glucose, UA Negative Negative - 1999(110) ++++ mg/dL [facility] Interpretation and review of laboratory results Normal [facility] Ketones, UA Negative Negative - 160(16) ++++ mg/dL [facility] Leukocytes, UA Negative Negative - 500+++ Leighann/mcL [facility] Nitrite, UA Negative Negative - Positive [facility] pH, UA 6.0 5 - 9 [facility] Protein, UA Negative Negative - 1999(20) ++++ mg/dL [facility] Spec Grav, UA 1.015 1 - 1.03 [facility] Urobilinogen, UA 0.2 0.2 - 12 mg/dL [facility] BioFire Not Detectedon 07-12 BioFire Not Detected Not detected Normal Not Detecte T he [facility] Comment on above: Result Comment: This is a duplicate RP2.1 COVID (PCR) result to be used for statistical tracking purpose only. PERFORMED BY: [place] [address] PATHOLOGIST TELEVISION PRODUCER CATY NEELY M.D. Performed By: #### R RODGER PANEL UPP., BIOFIRECOVNOTDE #### [address] COVID-19 Detected/Not Detect edOrdered By: Sofie Gr on 07-13-2023 SARS-CoV-2 (COVID-19) RNA JUAN+non-probe Ql (Nph) Not detected Not Detecte [facility] Comment on above: This is a [...] Influenza A H3 Blank Space PERFORMED BY: [place] [address] PATHOLOGIST TELEVISION PRODUCER CATY NEELY M.D. Normal [facility] Comment on above: Performed By: #### R RODGER PANEL UPP., BIOFIRECOVNOTDE #### [address] Respiratory pathogens DNA an d RNA panel - Nasopharynx by JUAN with non-probe detectionOrdered By: Sofie Gr on 07-13-2023 Respiratory pathogens DNA and RNA panel JUAN+non-probe (Nph) [facility] CBC AUTO DIFFon 06-25-2022 BASO # 0.0 103/ul Normal 0.0-0.1 [facility] Comment on above: Performed By: #### C BC #### [facility] [address] [place] [address] [address] Garland Kohli Basophils/100 WBC (Bld) 0.4 % Normal 0.2-2.0 [facility] Comment on above: Performed By: #### C BC #### [facility] [address] [place] [address] Dr. Garland Kohli EO # 0.1 103/ul Normal 0.0-0.7 [facility] Comment on above: Performed By: #### C BC #### [facility] [address] [place] [address] Dr. Garland Kohli Eosinophils/100 WBC (Bld) 0.9 % Normal 0.9-7.0 [facility] Comment on above: Performed By: #### C BC #### [facility] [address] [place] [address] Dr. Garland Kohli Erythrocyte distribution width (RBC) [Ratio] 12.4 % Normal 11.0-15.0 [facility] Comment on above: Performed By: #### C BC #### [facility] [address] [place] [address] Dr. Garland Kohli Hematocrit (Bld) [Volume fraction] 31.4 % Critically low 36.0-48.0 [facility] Comment on above: Performed By: #### C BC #### [facility] [address] [place] [address] Dr. Garland Kohli Hemoglobin (Bld) [Mass/Vol] 10.4 g/dL Critically low 12.0-16.0 [facility] Comment on above: Performed By: #### C BC #### [facility] [address] [place] [address] Dr. Garland Kohli IG # 0.04 10e3/ul Critically high 0.00-0.03 [facility] Comment on above: Performed By: #### C BC #### [facility] [address] [place] [address] Dr. Garland Kohli IG % 0.4 % Normal 0.0-0.5 [facility] Comment on above: Performed By: #### C BC #### [facility] [address] [place] [address] Dr. Garland Kohli LYMPH # 2.0 103/ul Normal 1.2-3.8 [facility] Comment on above: Performed By: #### C BC #### [facility] [address] [place] [address] Dr. Garland Kohli Lymphocytes/100 WBC (Bld) 22.1 % Normal 20.5-60.0 [facility] Comment on above: Performed By: #### C BC #### [facility] [address] [place] [address] Dr. Garland Kohli MANUAL DIFF REQ NO Normal [facility] Comment on above: Performed By: #### C BC #### [facility] [address] [place] [address] Dr. Garland Kohli MCH (RBC) [Entitic mass] 30.1 pg Normal 26.7-34.0 [facility] Comment on above: Performed By: #### C BC #### [facility] [address] [place] [address] Dr. Garland Kohli MCHC (RBC) [Mass/Vol] 33.1 g/dL Normal 29.9-35.2 [facility] Comment on above: Performed By: #### C BC #### [facility] [address] [place] [address] Dr. Garland Kohli MCV (RBC) [Entitic vol] 91.0 fL Normal 81.0-99.0 [facility] Comment on above: Performed By: #### C BC #### [facility] [address] [place] [address] Dr. Garland Kohli MONO # 0.8 103/ul Normal 0.3-0.8 [facility] Comment on above: Performed By: #### C BC #### [facility] [address] [place] [address] Dr. Garland Kohli Monocytes/100 WBC (Bld) 8.8 % Normal 1.7-12.0 [facility] Comment on above: Performed By: #### C BC #### [facility] [address] [place] [address] Dr. Garland Kohli NEUT # 6.0 103/ul Normal 1.4-6.5 [facility] Comment on above: Performed By: #### C BC #### [facility] [address] [place] [address] Dr. Garland Kohli Neutrophils/100 WBC (Bld) 67.4 % Normal 43.0-75.0 [facility] Comment on above: Performed By: #### C BC #### [facility] [address] [place] [address] Dr. Garland Kohli Platelet mean volume (Bld) [Entitic vol] 12.0 fL Normal 9.5-13.5 [facility] Comment on above: Performed By: #### C BC #### [facility] [address] [place] [address] Dr. Garland Kohli PLT 151 103/ul Normal 150-450 [facility] Comment on above: Performed By: #### C BC #### [facility] [address] [place] [address] Dr. Garland Kohli RBC 3.45 106/ul Critically low 4.20-5.40 [facility] Comment on above: Performed By: #### C BC #### [facility] [address] [place] [address] Dr. Garland Kohli WBC 8.9 103/ul Normal 4.0-11.0 [facility] Comment on above: Performed By: #### C BC #### [facility] [address] [place] [address] Dr. Garland Kohli CBC AUTO DIFFon 06-23-2022 BASO # 0.0 103/ul Normal 0.0-0.1 [facility] Comment on above: Performed By: #### C BC #### [facility] [address] [place] [address] Dr. Garland Kohli Basophils/100 WBC (Bld) 0.4 % Normal 0.2-2.0 [facility] Comment on above: Performed By: #### C BC #### [facility] [address] [place] [address] Dr. Garland Kohli EO # 0.1 103/ul Normal 0.0-0.7 [facility] Comment on above: Performed By: #### C BC #### [facility] [address] [place] [address] Dr. Garland Kohli Eosinophils/100 WBC (Bld) 0.8 % Critically low 0.9-7.0 [facility] Comment on above: Performed By: #### C BC #### [facility] [address] [place] [address] Dr. Garland Kohli Erythrocyte distribution width (RBC) [Ratio] 12.4 % Normal 11.0-15.0 [facility] Comment on above: Performed By: #### C BC #### [facility] [address] [place] [address] Dr. Garland Kohli Hematocrit (Bld) [Volume fraction] 34.5 % Critically low 36.0-48.0 [facility] Comment on above: Performed By: #### C BC #### [facility] [address] [place] [address] Dr. Garland Kohli Hemoglobin (Bld) [Mass/Vol] 11.6 g/dL Critically low 12.0-16.0 [facility] Comment on above: Performed By: #### C BC #### [facility] [address] [place] [address] Dr. Garland Kohli IG # 0.04 10e3/ul Critically high 0.00-0.03 [facility] Comment on above: Performed By: #### C BC #### [facility] [address] [place] [address] Dr. Garland Kohli IG % 0.5 % Normal 0.0-0.5 [facility] Comment on above: Performed By: #### C BC #### [facility] [address] [place] [address] Dr. Garland Kohli LYMPH # 1.3 103/ul Normal 1.2-3.8 [facility] Comment on above: Performed By: #### C BC #### [facility] [address] [place] [address] Dr. Garland Kohli Lymphocytes/100 WBC (Bld) 17.6 % Critically low 20.5-60.0 [facility] Comment on above: Performed By: #### C BC #### [facility] [address] [place] [address] Dr. Garland Kohli MANUAL DIFF REQ NO Normal [facility] Comment on above: Performed By: #### C BC #### [facility] [address] [place] [address] Dr. Garland Kohli MCH (RBC) [Entitic mass] 29.6 pg Normal 26.7-34.0 [facility] Comment on above: Performed By: #### C BC #### [facility] [address] [place] [address] Dr. Garland Kohli MCHC (RBC) [Mass/Vol] 33.6 g/dL Normal 29.9-35.2 [facility] Comment on above: Performed By: #### C BC #### [facility] [address] [place] [address] Dr. Garland Kohli MCV (RBC) [Entitic vol] 88.0 fL Normal 81.0-99.0 [facility] Comment on above: Performed By: #### C BC #### [facility] [address] [place] [address] Dr. Garland Kohli MONO # 0.9 103/ul Critically high 0.3-0.8 [facility] Comment on above: Performed By: #### C BC #### [facility] [address] [place] [address] Dr. Garland Kohli Monocytes/100 WBC (Bld) 11.7 % Normal 1.7-12.0 [facility] Comment on above: Performed By: #### C BC #### [facility] [address] [place] [address] Dr. Garland Kohli NEUT # 5.1 103/ul Normal 1.4-6.5 [facility] Comment on above: Performed By: #### C BC #### [facility] [address] [place] [address] Dr. Garland Kohli Neutrophils/100 WBC (Bld) 69.0 % Normal 43.0-75.0 [facility] Comment on above: Performed By: #### C BC #### [facility] [address] [place] [address] Dr. Garland Kohli Platelet mean volume (Bld) [Entitic vol] 12.1 fL Normal 9.5-13.5 [facility] Comment on above: Performed By: #### C BC #### [facility] [address] [place] [address] Dr. Garland Kohli PLT 193 103/ul Normal 150-450 [facility] Comment on above: Performed By: #### C BC #### [facility] [address] [address] [address] Garland Kohli RBC 3.92 106/ul Critically low 4.20-5.40 [facility] Comment on above: Performed By: #### C BC #### [facility] [address] [place] [address] Dr. Garland Kohli WBC 7.4 103/ul Normal 4.0-11.0 [facility] Comment on above: Performed By: #### C BC #### [facility] [address] [place] [address] Dr. Garland Kohli DRUG SCREEN RAPID (URINE)on 06-23-2022 AMP Negative Normal NEGATIVE [facility] Comment on above: Performed By: #### D RUGRPD #### [facility] [address] [place] [address] Dr. Garland Kohli BAR Negative Normal NEGATIVE [facility] Comment on above: Performed By: #### D RUGRPD #### [facility] [address] [place] [address] Dr. Garland oKhli BUP Negative Normal NEGATIVE [facility] Comment on above: Performed By: #### D RUGRPD #### [facility] [address] [place] [address] Dr. Garland Kohli BZO Negative Normal NEGATIVE [facility] Comment on above: Performed By: #### D RUGRPD #### [facility] [address] [place] [address] Dr. Garland Kohli JUANI Negative Normal NEGATIVE [facility] Comment on above: Performed By: #### D RUGRPD #### [facility] [address] [place] [address] Dr. Garland Kohli CUT-OFFS SEE BELOW Normal [facility] Comment on above: Result Comment: AMP [...] ng/mL Performed By: #### D RUGRPD #### [facility] [address] [place] [address] Dr. Garland Kohli DRUG CUT HEADER DRUG CLASS TEST SYSTEM CUT-OFF CONCENTRATIONS ARE FOLLOWS: Normal [facility] Comment on above: Performed By: #### D RUGRPD #### [facility] [address] [place] [address] Dr. Garland Kohli mAMP Negative Normal NEGATIVE [facility] Comment on above: Performed By: #### D RUGRPD #### [facility] [address] [place] [address] Dr. Garland Kohli MTD Negative Normal NEGATIVE [facility] Comment on above: Performed By: #### D RUGRPD #### [facility] [address] [place] [address] Dr. Garland Kohli OPI Negative Normal NEGATIVE [facility] Comment on above: Performed By: #### D RUGRPD #### [facility] [address] [place] [address] Dr. Garland Kohli OXY Negative Normal NEGATIVE [facility] Comment on above: Performed By: #### D RUGRPD #### [facility] [address] [place] [address] Dr. Garland Kohli PCP Negative Normal NEGATIVE [facility] Comment on above: Performed By: #### D RUGRPD #### [facility] [address] [place] [address] Dr. Garland Kohli PPX Negative Normal NEGATIVE [facility] Comment on above: Performed By: #### D RUGRPD #### [facility] [address] [place] [address] Dr. Garland Kohli TCA Negative Normal NEGATIVE [facility] Comment on above: Performed By: #### D RUGRPD #### [facility] [address] [place] [address] Dr. Garland Kohli THC Negative Normal NEGATIVE [facility] Comment on above: Performed By: #### D RUGRPD #### [facility] [address] [place] [address] Dr. Garland Kohli TYPE AND SCREENon 06-23-2022 TYPE AND SCREEN Negative Normal [facility] Comment on above: Performed By: #### T NS #### [facility] [address] [place] [address] Dr. Garland Kohli FREE T4on 06-07-2022 Free T4 [Mass/Vol] 0.76 ng/dL Normal 0.76-1.46 [facility] Comment on above: Performed By: #### C BC #### [facility] [address] [place] [address] Dr. Garland Kohli TSHon 06-07-2022 TSH 1.393 uIU/mL Normal 0.358-3.740 [facility] Comment on above: Performed By: #### T SH #### [facility] [address] [place] [address] Dr. Garland Kohli GROUP B STREP CULTUREon S. agalactiae Ag Ql (Unsp spec) Culture Observations: NEGATIVE FOR GROUP B STREPTOCOCCUS. Normal [facility] Comment on above: Performed By: #### C BC #### [facility] [address] [place] [address] Dr. Garland Kohli GTT 3 HR PREGon 04-16-2022 Glucose [Mass/Vol] 87 mg/dL Normal 74-106 [facility] Comment on above: Performed By: #### G TT3P #### [facility] [address] [place] [address] Dr. Garland Kohli Glucose [Mass/Vol] 148 mg/dL Normal [facility] Comment on above: Performed By: #### G TT3P #### [facility] [address] [place] [address] Dr. Garland Kohli Glucose [Mass/Vol] 128 mg/dL Normal [facility] Comment on above: Performed By: #### G TT3P #### [facility] [address] [place] [address] Dr. Garland Kohli Glucose [Mass/Vol] 105 mg/dL Normal [facility] Comment on above: Performed By: #### G TT3P #### [facility] [address] [place] [address] Dr. Garland Kohli CBC AUTO DIFFon 04-04-2022 BASO # 0.0 103/ul Normal 0.0-0.1 [facility] Comment on above: Performed By: #### G TT3P #### [facility] [address] [place] [address] Dr. Garland Kohli Basophils/100 WBC (Bld) 0.2 % Normal 0.2-2.0 [facility] Comment on above: Performed By: #### G TT3P #### [facility] [address] [place] [address] Dr. Garland Kohli EO # 0.0 103/ul Normal 0.0-0.7 [facility] Comment on above: Performed By: #### G TT3P #### [facility] [address] [place] [address] Dr. Garland Kohli Eosinophils/100 WBC (Bld) 0.4 % Critically low 0.9-7.0 [facility] Comment on above: Performed By: #### G TT3P #### [facility] [address] [place] [address] Dr. Garland Kohli Erythrocyte distribution width (RBC) [Ratio] 12.9 % Normal 11.0-15.0 [facility] Comment on above: Performed By: #### G TT3P #### [facility] [address] [place] [address] Dr. Garland Kohli Hematocrit (Bld) [Volume fraction] 32.5 % Critically low 36.0-48.0 [facility] Comment on above: Performed By: #### G TT3P #### [facility] [address] [place] [address] Dr. Garland Kohli Hemoglobin (Bld) [Mass/Vol] 11.2 g/dL Critically low 12.0-16.0 [facility] Comment on above: Performed By: #### G TT3P #### [facility] [address] [address] [address] Garland Kohli IG # 0.07 10e3/ul Critically high 0.00-0.03 [facility] Comment on above: Performed By: #### G TT3P #### [facility] [address] [place] [address] Dr. Garland Kohli IG % 0.8 % Critically high 0.0-0.5 [facility] Comment on above: Performed By: #### G TT3P #### [facility] [address] [place] [address] Dr. Garland Kohli LYMPH # 0.9 103/ul Critically low 1.2-3.8 [place] Comment on above: Performed By: #### G TT3P #### [facility] [address] [place] [address] Dr. Garland Kohli Lymphocytes/100 WBC (Bld) 10.4 % Critically low 20.5-60.0 [facility] Comment on above: Performed By: #### G TT3P #### [facility] [address] [place] [address] Dr. Garland Kohli MANUAL DIFF REQ NO Normal [facility] Comment on above: Performed By: #### G TT3P #### [facility] [address] [place] [address] Dr. Garland Kohli MCH (RBC) [Entitic mass] 31.4 pg Normal 26.7-34.0 [facility] Comment on above: Performed By: #### G TT3P #### [facility] [address] [place] [address] Dr. Garland Kohli MCHC (RBC) [Mass/Vol] 34.5 g/dL Normal 29.9-35.2 [facility] Comment on above: Performed By: #### G TT3P #### [facility] [address] [place] [address] Dr. Garland Kohli MCV (RBC) [Entitic vol] 91.0 fL Normal 81.0-99.0 [facility] Comment on above: Performed By: #### G TT3P #### [facility] [address] [place] [address] Dr. Garland Kohli MONO # 1.1 103/ul Critically high 0.3-0.8 [facility] Comment on above: Performed By: #### G TT3P #### [facility] [address] [place] [address] Dr. Garland Kohli Monocytes/100 WBC (Bld) 12.5 % Critically high 1.7-12.0 [facility] Comment on above: Performed By: #### G TT3P #### [facility] [address] [place] [address] Dr. Garland Kohli NEUT # 6.3 103/ul Normal 1.4-6.5 [facility] Comment on above: Performed By: #### G TT3P #### [facility] [address] [place] [address] Dr. Garland Kohli Neutrophils/100 WBC (Bld) 75.7 % Critically high 43.0-75.0 [facility] Comment on above: Performed By: #### G TT3P #### [facility] [address] [place] [address] Dr. Garland Kohli Platelet mean volume (Bld) [Entitic vol] 10.5 fL Normal 9.5-13.5 [facility] Comment on above: Performed By: #### G TT3P #### [facility] [address] [place] [address] Dr. Garland Kohli PLT 181 103/ul Normal 150-450 [facility] Comment on above: Performed By: #### G TT3P #### [facility] [address] [place] [address] Dr. Garland Kohli RBC 3.57 106/ul Critically low 4.20-5.40 [facility] Comment on above: Performed By: #### G TT3P #### [facility] [address] [place] [address] Dr. Garland Kohli WBC 8.4 103/ul Normal 4.0-11.0 [facility] Comment on above: Performed By: #### G TT3P #### [facility] [address] [place] [address] Dr. Garland Kohli CTA CHEST WO W [...] DEANNA LINN Date: 2022-04-04 15:25 Normal [facility] PROF CHEM 8 (BAS METB)on Anion gap [Moles/Vol] 13.2 mmol/L Normal [facility] Comment on above: Performed By: #### G TT3P #### [facility] [address] [place] [address] Dr. Garland Kohli Calcium [Mass/Vol] 8.5 mg/dL Normal 8.5-10.1 [facility] Comment on above: Performed By: #### G TT3P #### [facility] [address] [address] [address] Garland Kohli Chloride [Moles/Vol] 103 mmol/L Normal 98-107 [facility] Comment on above: Performed By: #### G TT3P #### [facility] [address] [address] [address] Garland Kohli CO2 [Moles/Vol] 23.4 mmol/L Normal 21.0-32.0 [facility] Comment on above: Performed By: #### G TT3P #### [facility] [address] [address] [address] Garland Kohli Creatinine [Mass/Vol] 0.43 mg/dL Critically low 0.55-1.02 [facility] Comment on above: Performed By: #### G TT3P #### [facility] [address] [place] [address] Dr. Garland Kohli EGFR-AF AUSTRALIAN >60 Normal >=60 [facility] Comment on above: Performed By: #### G TT3P #### [facility] [address] [place] [address] Dr. Garland Kohli EGFR-NON AF AUSTRALIAN >60 Normal >=60 [facility] Comment on above: Performed By: #### G TT3P #### [facility] [address] [address] [address] Garland Kohli Glucose [Mass/Vol] 108 mg/dL Critically high 74-106 [facility] Comment on above: Performed By: #### G TT3P #### [facility] [address] [address] [address] Garland Kohli Potassium [Moles/Vol] 3.6 mmol/L Normal 3.5-5.1 [facility] Comment on above: Performed By: #### G TT3P #### [facility] [address] [address] [address] Garland Kohli Sodium [Moles/Vol] 136 mmol/L Normal 136-145 [facility] Comment on above: Performed By: #### G TT3P #### [facility] [address] [address] [address] Garland Kohli Urea nitrogen [Mass/Vol] 5.0 mg/dL Critically low 7.0-18.0 [facility] Comment on above: Performed By: #### G TT3P #### [facility] [address] [place] [address] Dr. Garland Kohli Urea nitrogen/Creatinine [Mass ratio] 11.6 mg/mg Normal [facility] Comment on above: Performed By: #### G TT3P #### [facility] [address] [place] [address] Dr. Garland Kohli TROPONIN, HIGH SENSITIVITYon 04-04-2022 HSTROP 9.3 pg/mL Normal 4.0-51.3 [facility] Comment on above: Result Comment: CUT- OFF POINTS HAVE BEEN ESTABLISHED BASED ON THE FOURTH UNIVERSAL DEFINITIONS OF MYOCARDIAL INFARCTION. THE UPPER REFERENCE LIMIT (URL) OF TROPONIN, DEFINED THE 99TH PERCENTILE OF cTnI DISTRIBUTION IN A REFERENCE POPULATION, HAS BEEN CONFIRMED THE DECISION THRESHOLD FOR [place] DIAGNOSIS. Performed By: #### G TT3P #### [facility] [address] [place] [address] Dr. Garland Kohli CBC AUTO DIFFon 03-26-2022 BASO # 0.0 103/ul Normal 0.0-0.1 [facility] Comment on above: Performed By: #### G TT3P #### [facility] [address] [place] [address] Dr. Garland Kohli Basophils/100 WBC (Bld) 0.2 % Normal 0.2-2.0 [facility] Comment on above: Performed By: #### G TT3P #### [facility] [address] [place] [address] Dr. Garland Kohli EO # 0.1 103/ul Normal 0.0-0.7 [facility] Comment on above: Performed By: #### G TT3P #### [facility] [address] [place] [address] Dr. Garland Kohli Eosinophils/100 WBC (Bld) 1.0 % Normal 0.9-7.0 [facility] Comment on above: Performed By: #### G TT3P #### [facility] [address] [place] [address] Dr. Garland Kohli Erythrocyte distribution width (RBC) [Ratio] 12.8 % Normal 11.0-15.0 [facility] Comment on above: Performed By: #### G TT3P #### [facility] [address] [place] [address] Dr. Garland Kolhi Hematocrit (Bld) [Volume fraction] 36.2 % Normal 36.0-48.0 [facility] Comment on above: Performed By: #### G TT3P #### [facility] [address] [place] [address] Dr. Garland Kohli Hemoglobin (Bld) [Mass/Vol] 12.2 g/dL Normal 12.0-16.0 [facility] Comment on above: Performed By: #### G TT3P #### [facility] [address] [place] [address] Dr. Garland Kohli IG # 0.08 10e3/ul Critically high 0.00-0.03 [facility] Comment on above: Performed By: #### G TT3P #### [facility] [address] [place] [address] Dr. Garland Kohli IG % 0.9 % Critically high 0.0-0.5 [facility] Comment on above: Performed By: #### G TT3P #### [facility] [address] [place] [address] Dr. Garland Kohli LYMPH # 1.7 103/ul Normal 1.2-3.8 [facility] Comment on above: Performed By: #### G TT3P #### [facility] [address] [place] [address] Dr. Garland Kohli Lymphocytes/100 WBC (Bld) 17.8 % Critically low 20.5-60.0 [facility] Comment on above: Performed By: #### G TT3P #### [facility] [address] [place] [address] Dr. Garland Kohli MANUAL DIFF REQ NO Normal [facility] Comment on above: Performed By: #### G TT3P #### [facility] [address] [place] [address] Dr. Garland Kohli MCH (RBC) [Entitic mass] 30.7 pg Normal 26.7-34.0 [facility] Comment on above: Performed By: #### G TT3P #### [facility] [address] [place] [address] Dr. Garland Kohli MCHC (RBC) [Mass/Vol] 33.7 g/dL Normal 29.9-35.2 [facility] Comment on above: Performed By: #### G TT3P #### [facility] [address] [place] [address] Dr. Garland Kohli MCV (RBC) [Entitic vol] 91.2 fL Normal 81.0-99.0 [facility] Comment on above: Performed By: #### G TT3P #### [facility] [address] [place] [address] Dr. Garland Kohli MONO # 0.6 103/ul Normal 0.3-0.8 [facility] Comment on above: Performed By: #### G TT3P #### [facility] [address] [place] [address] Dr. Garland Kohli Monocytes/100 WBC (Bld) 6.0 % Normal 1.7-12.0 [facility] Comment on above: Performed By: #### G TT3P #### [facility] [address] [place] [address] Dr. Garland Kohli NEUT # 6.9 103/ul Critically high 1.4-6.5 [facility] Comment on above: Performed By: #### G TT3P #### [facility] [address] [place] [address] Dr. Garland Kohli Neutrophils/100 WBC (Bld) 74.1 % Normal 43.0-75.0 [facility] Comment on above: Performed By: #### G TT3P #### [facility] [address] [place] [address] Dr. Garland Kohli Platelet mean volume (Bld) [Entitic vol] 10.2 fL Normal 9.5-13.5 [facility] Comment on above: Performed By: #### G TT3P #### [facility] [address] [place] [address] Dr. Garland Kohli PLT 217 103/ul Normal 150-450 [facility] Comment on above: Performed By: #### G TT3P #### [facility] [address] [place], [place] [address] Dr. Garland Kohli RBC 3.97 106/ul Critically low 4.20-5.40 [facility] Comment on above: Performed By: #### G TT3P #### [facility] [address] [place], [place] [address] Dr. Garland Kohli WBC 9.3 103/ul Normal 4.0-11.0 [facility] Comment on above: Performed By: #### G TT3P #### [facility] [address] [place] [address] [address] [address] Garland Kohli GLUCOSE - 1HRon 03-26-2022 Glucose [Mass/Vol] 155 mg/dL Critically high 74-106 [facility] Comment on above: Performed By: #### C BC #### [facility] [address] [place], [place] [id number] Dr. Garland Kohli US PREG ANATOMY SINGLEon [...] YAAKOVLUANN HOUSER Date: 2022-02-09 19:30 Normal [facility] AFP MATERNAL FOR SPINA BIFID Aon 01-29-2022 AFP MoM 0.76 Normal [facility] Comment on above: Performed By: #### G TT3P #### [facility] [address] [address] [address] Garland Kohli AFP Value 35.4 ng/mL Normal [facility] Comment on above: Performed By: #### G TT3P #### [facility] [address] [address] [address] Garland Kohli AFP, Serum for Spina Bifida Report Normal [facility] Comment on above: Performed By: #### G TT3P #### [facility] [address] [address] [address] Garland Kohli Comment Comment Normal [facility] Comment on above: Result Comment: Stanley Almodovar, Ph.D., [facility] Director . References: Available Upon Request. . Multiples Of Median Cutoffs For AFP Elevations Mark 2.5 Black 2.8 IDD 2.0 Twins 4.5 Abbreviation Definitions IDD - Insulin Dep Diabetes OSBR - Open Spina Bifida Risk . For further inquiries contact [employer] [facility] at [phone]. . This test was developed and its performance characteristics determined by [employer]. It has not been cleared or approved by the Food and Drug Administration. Performed By: #### G TT3P #### [facility] [address] [address] [address] Garland Izquierdo Age Collection Date 18.1 weeks Normal [facility] Comment on above: Performed By: #### G TT3P #### [facility] [address] [address] [address] Garland Kohli Gestat, Age Based on Ultrasound Normal [facility] Comment on above: Result Comment: 09:4 on 11/26/2021 Recalculations are not recommended when gestational dating by LMP and ultrasound are within 10 days. Performed By: #### G TT3P #### [facility] [address] [address] [address] Garland Kohli Insulin Dep Diabetes No Normal [facility] Comment on above: Performed By: #### G TT3P #### [facility] [address] [place] [address] Dr. Garland Kohli Interpretation Comment Normal [place] Comment on above: Result Comment: Inte rpretation: [...] Customer Services to discuss available options. The [employer] recommends amniocentesis be offered to women age 35 and older. Performed By: #### G TT3P #### [facility] [address] [place] [address] Dr. Garland Kohli [age] [facility] Comment on above: Performed By: #### G TT3P #### [facility] [address] [place] [address] Dr. Garland Kohli Multiple Gestation No Normal [facility] Comment on above: Performed By: #### G TT3P #### [facility] [address] [place] [address] Dr. Garland Kohli OSBR [place] [address] [place] [id number] [facility] Comment on above: Performed By: #### G TT3P #### [facility] [address] [place] [address] Dr. Garland Kohli PDF . [facility] Comment on above: Performed By: #### G TT3P #### [facility] [address] [place] [address] Dr. Garland Kohli Race [facility] Comment on above: Performed By: #### G TT3P #### [facility] [address] [place] [address] Dr. Garland Kohli Test Results: Negative Normal [facility] Comment on above: Performed By: #### G TT3P #### [facility] [address] [place] [address] Dr. Garland Kohli PAP ACOG PANEL 2: 21 to 29on 01-23-2022 . . Normal [facility] Comment on above: Performed By: #### [id number] #### [facility] [address] [place] [address] Dr. Garland Kohli Age Gdln ACOG Testing [facility] Comment on above: Performed By: #### [id number] #### [facility] [address] [place] [address] Dr. Garland Kohli DIAGNOSIS: Comment [facility] Comment on above: Result Comment: NEGA TIVE FOR INTRAEPITHELIAL LESION OR MALIGNANCY. Performed By: #### [id number] #### [facility] [address] [place] [address] Dr. Garland Kohli Methodology: Comment [facility] Comment on above: Result Comment: This liquid based ThinPrep(R) pap test was screened with the use of an image guided system. Performed By: #### [id number] #### [facility] [address] [place] [address] Dr. Garland Kohli Note: Comment [facility] Comment on above: Result Comment: The Pap smear is a screening test designed to aid in the detection of premalignant and malignant conditions of the uterine cervix. It is not a diagnostic procedure and should not be used as the sole means of detecting cervical cancer. Both false-positive and false-negative reports do occur. . Performed By: #### [id number] #### [facility] [address] [place] [address] Dr. Garland Kohli Performed by: Comment Normal [facility] Comment on above: Result Comment: Kelly Arreguin, Jacker Feeder (ASCP) Performed By: #### [id number] #### [facility] [address] [place] [address] Dr. Garland Kohli Reflex Criteria: Comment Normal [facility] Comment on above: Result Comment: The HPV DNA reflex criteria were not met with this specimen result therefore, no HPV testing was performed. . Performed By: #### [id number] #### [facility] [address] [place] [address] Dr. Garland Kohli Specimen adequacy: Comment Normal [facility] Comment on above: Result Comment: Sati sfactory for evaluation. No endocervical component is identified. Performed By: #### [id number] #### [facility] [address] [place] [address] Dr. Garland Kohli CHLAMYDIA/GONOCOCCUS JUAN (SW AB/URINE/PAPon 01-20-2022 Chlamydia trachomatis, JUAN Negative Normal Negative [facility] Comment on above: Performed By: #### C BC #### [facility] [address] [place] [address] Dr. Garland Kohli Neisseria gonorrhoeae, JUAN Negative Normal Negative [facility] Comment on above: Performed By: #### C BC #### [facility] [address] [place] [address] Dr. Garland Kohli TSHon 01-04-2022 TSH 1.707 uIU/mL Normal 0.358-3.740 [facility] Comment on above: Performed By: #### G TT3P #### [facility] [address] [place] [address] Dr. Garland Kohli HEPATITIS C VIRUS AB W/ REFL EX QUANTon 12-17-2021 HCV AB <0.1 Normal 0.0-0.9 [facility] Comment on above: Performed By: #### G TT3P #### [facility] [address] [place] [address] Dr. Garland Kohli Interpretation: Comment Normal [facility] Comment on above: Result Comment: Nega tive Not infected with HCV, unless recent infection is suspected or other evidence exists to indicate HCV infection. Performed By: #### G TT3P #### [facility] [address] [place] [address] Dr. Garland Kohli CULTURE URINEon 12-15-2021 CULTURE URINE Culture Observations : GREATER THAN TWO ORGANISMS PRESENT. PLEASE RESUBMIT CLEAN CATCH MID-STREAM URINE IF CLINICALLY INDICATED. Normal [facility] Comment on above: Performed By: #### U RCX #### [facility] [address] [place] [address] Dr. Garland Kohli HEP B SURFACE ANTIGEN SCREEN on 12-15-2021 HBsAg Screen Negative Normal Negative [facility] Comment on above: Performed By: #### H BSANS #### [facility] [address] [place] [address] Dr. Garland Kohli HIV 1 AND 2 WITH REFLEXon HIV Screen 4th Generation wRfx Non-Reactive Normal Non Reactive [facility] Comment on above: Result Comment: HIV Negative HIV-1/HIV-2 antibodies and HIV-1 p24 antigen were NOT detected. There is no laboratory evidence of HIV infection. Performed By: #### H IV12 #### [facility] [address] [place] [address] Dr. Garland Kohli RPR QUANTon 12-15-2021 Rapid Plasma Reagin, Quant Non-Reactive Normal NonRea<1:1 [facility] Comment on above: Result Comment: Plenathaniel torres Note: This test does not meet current guidelines for screening and diagnosis of syphilis. This test is intended for following treatment response in patients being treated for syphilis infection. To screen for syphilis infection, a reflex cascade that includes both RPR and a treponema-specific assay should be utilized, such as Treponema pallidum (Syphilis) Screening [place] (082120) or Rapid Plasma Reagin (RPR) Test With Reflex to Quantitative RPR and Confirmatory Treponema pallidum Antibodies (618243). Performed By: #### G TT3P #### [facility] [address] [place] [address] Dr. Garland Kohli RUBELLA AB IGGon 12-15-2021 Rubella Antibodies, IgG 4.72 index Normal Immune >0.99 [facility] Comment on above: Result Comment: Non- immune <0.90 Equivocal 0.90 - 0.99 Immune >0.99 Performed By: #### G TT3P #### [facility] [address] [place] [address] Dr. Garland Kohli CBC AUTO DIFFon 12-14-2021 BASO # 0.0 103/ul Normal 0.0-0.1 [facility] Comment on above: Performed By: #### C BC #### [facility] [address] [place] [address] Dr. Garland Kohli Basophils/100 WBC (Bld) 0.3 % Normal 0.2-2.0 [facility] Comment on above: Performed By: #### C BC #### [facility] [address] [place] [address] Dr. Garland Kohli EO # 0.1 103/ul Normal 0.0-0.7 [facility] Comment on above: Performed By: #### C BC #### [facility] [address] [place] [address] Dr. Garland Kohli Eosinophils/100 WBC (Bld) 0.8 % Critically low 0.9-7.0 [facility] Comment on above: Performed By: #### C BC #### [facility] [address] [place] [address] Dr. Garland Kohli Erythrocyte distribution width (RBC) [Ratio] 12.6 % Normal 11.0-15.0 [facility] Comment on above: Performed By: #### C BC #### [facility] [address] [place] [address] Dr. Garland Kohli Hematocrit (Bld) [Volume fraction] 34.3 % Critically low 36.0-48.0 [facility] Comment on above: Performed By: #### C BC #### [facility] [address] [place] [address] Dr. Garland Kohli Hemoglobin (Bld) [Mass/Vol] 11.7 g/dL Critically low 12.0-16.0 [facility] Comment on above: Performed By: #### C BC #### [facility] [address] [place] [address] Dr. Garland Kohli IG # 0.03 10e3/ul Normal 0.00-0.03 [facility] Comment on above: Performed By: #### C BC #### [facility] [address] [place] [address] [address] Garland Kohli IG % 0.4 % Normal 0.0-0.5 [facility] Comment on above: Performed By: #### C BC #### [facility] [address] [place] [address] Dr. Garland Kohli LYMPH # 1.5 103/ul Normal 1.2-3.8 [facility] Comment on above: Performed By: #### C BC #### [facility] [address] [place] [address] Dr. Garland Kohli Lymphocytes/100 WBC (Bld) 21.1 % Normal 20.5-60.0 [facility] Comment on above: Performed By: #### C BC #### [facility] [address] [place] [address] Dr. Garland Kohli MANUAL DIFF REQ NO Normal [facility] Comment on above: Performed By: #### C BC #### [facility] [address] [place] [address] Dr. Garland Kohli MCH (RBC) [Entitic mass] 30.5 pg Normal 26.7-34.0 [facility] Comment on above: Performed By: #### C BC #### [facility] [address] [place] [address] Dr. Garland Kohli MCHC (RBC) [Mass/Vol] 34.1 g/dL Normal 29.9-35.2 [facility] Comment on above: Performed By: #### C BC #### [facility] [address] [place] [address] Dr. Garland Kohli MCV (RBC) [Entitic vol] 89.6 fL Normal 81.0-99.0 [facility] Comment on above: Performed By: #### C BC #### [facility] [address] [place] [address] Dr. Garland Kohli MONO # 0.5 103/ul Normal 0.3-0.8 [facility] Comment on above: Performed By: #### C BC #### [facility] [address] [address] [address] Garland Kohli Monocytes/100 WBC (Bld) 7.1 % Normal 1.7-12.0 [facility] Comment on above: Performed By: #### C BC #### [facility] [address] [address] [address] Garland Kohli NEUT # 5.0 103/ul Normal 1.4-6.5 [facility] Comment on above: Performed By: #### C BC #### [facility] [address] [address] [address] Garland Kohli Neutrophils/100 WBC (Bld) 70.3 % Normal 43.0-75.0 [facility] Comment on above: Performed By: #### C BC #### [facility] [address] [place] [address] Dr. Garland Kohli Platelet mean volume (Bld) [Entitic vol] 10.1 fL Normal 9.5-13.5 [facility] Comment on above: Performed By: #### C BC #### [facility] [address] [place] [address] Dr. Garland Kohli PLT 234 103/ul Normal 150-450 [facility] Comment on above: Performed By: #### C BC #### [facility] [address] [place] [address] Dr. Garland Kohli RBC 3.83 106/ul Critically low 4.20-5.40 [facility] Comment on above: Performed By: #### C BC #### [facility] [address] [place] [address] Dr. Garland Kohli WBC 7.1 103/ul Normal 4.0-11.0 [facility] Comment on above: Performed By: #### C BC #### [facility] [address] [place] [address] Dr. Garland Kohli GLYCOHEMOGLOBIN A1Con 2021 ADA RECOMMENDATION SEE BELOW Normal [facility] Comment on above: Result Comment: ADA RECOMMENDED LIMIT 4.0 - 6.0 ADA THERAPEUTIC TARGET < 7.0 ACTION SUGGESTED > 7.0 Performed By: #### A 1C #### [facility] [address] [place], [place] [address] Dr. Garland Kohli Glucose [Mass/Vol] 103 mg/dL Normal [facility] Comment on above: Performed By: #### A 1C #### [facility] [address] [place], [place] [address] Dr. Garland Kohli HbA1c (Bld) [Mass fraction] 5.2 % Normal 4.5-6.2 [facility] Comment on above: Performed By: #### A 1C #### [facility] [address] [place], [place] [address] Dr. Garland Kohli MARTÍNEZ BOX TEST PT SEND OUTo n 12-14-2021 SENT TO REF LAB 12/14/21 Normal [facility] Comment on above: Performed By: #### G TT3P #### [facility] [address] [place] [address] Dr. Garland Kohli TYPE AND SCREENon 12-14-2021 TYPE AND SCREEN Negative Normal [facility] Comment on above: Performed By: #### C BC #### [facility] [address] [address] [address] Garland Kohli US PREG TVon 11-26-2021 [...] YAAKOV HOUSER Date: 2021-11-26 18:36 Normal [facility] OPERATIVE REPORTon 9 OPERATIVE REPORT [address] [place] [address] OPERATIVE REPORT PATIENT NAME: CECELIA JOHNSON : 1995 MED REC NO: [id number] ROOM: ACCOUNT NO: [id number] ADMIT DATE: 11/24/2018 PROVIDER: Mode Renee DATE [...] infiltrated into the drains, this was for bed bug exterminator pain control. Steri-Strips applied throughout and then bulky gauze dressing as well as surgical bra was applied. The patient was awoken, extubated, and transported to the recovery room in stable condition. Sponge, needle, and instrument counts were reported correct x2 at the end of the case. MODE RENEE /[email or web address] Doc#: [id number] CC: Carlos Alberto Coleman Normal [facility] Surgical Pathologyon 019 Surgical Pathology (NOTE) [id number] [place] [address] SURGICAL PATHOLOGY REPORT Patient Name: CECELIA JOHNSON MR#: [id number] Specimen #[id number] Final Diagnosis SPECIMEN A : BREAST AND [...] OF SKIN. NEGATIVE FOR MALIGNANCY OR ATYPIA. [facility] Brian Nicolas M.D. Electronically Signed Out 11/26/2018 [...] specimen weighs 453 grams. Multiple sales representative sales manager sections are submitted in five cassettes for [...] in multiple different areas and sales representative sales manager sections are submitted in five cassettes for microscopic examination. Microscopic Description Specimen A : Five RICHARD glass slides are received. Microscopic examination is performed. Specimen B : Five RICHARD glass slides are received. Microscopic examination is performed. Normal [facility] Comment on above: Performed By: #### P PPES #### [facility] [address] [place] [address] Fitness Club Manager: Victor Manuel Hunter DO CNOVSPon 11-18-2018 CNOVSP Visit (SP) Office (HEMAS[place]) CECELIA JOHNSON ([id number]) 1995 F Date Time Provider Department 11/18/18 1:00 PM JAZ MOULTON) KATHARINE During your visit today, we recorded the following information about you: Temperature Pulse Respiration Blood pressure 97.9 degrees 82/minute 18/minute 122/78 Weight Height Last Period 82.7 kg 1.6 m 10/15/18 Jaz Moulton MD 11/18/2018 3:08 PM Signed PATIENT NAME: Cecelia Johnson CLINIC NO.: [id number] ATTENDING PHYSICIAN: Jaz Moulton MD DATE OF SERVICE: November 18, 2018 This document has been created with the use of voice recognition technology. It may contain inaccuracies, misspellings, inaccurate syntax or inappropriate word context that escaped review. Dear Dr. OSUNA thank you for referring Miss Cecelia Johnson for an opinion regarding surgical clearance. CHIEF COMPLAINT: I need surgical clearance HPI: Cecelia Johnosn is a 23 year old year old [...] file Gets together: Not on file Attends roman catholic service: Not on file Active member of [...] number below. Jaz Moulton M.D. Hematology/Medical Oncology [facility] [phone] CC: Carlos Alberto Coleman MD - (Inactive), In Basket (Inactive) - User (Inactive) [id number] [facility] [phone] (Ph) Mode Renee MD [...] - Fully Assessed Visit Diagnosis:MTHFR mutation ([facility]) [E72.12] Prescriptions as of 11/18/2018 Sig: ACETAMINOPHEN [...] Date 11/18/2018 Noted Resolved MTHFR mutation (FORMER[facility]) [E72.12] INVALID FOR* Encounter Status:Closed by JAZ MOULTON MD on 11/18/[address] [facility] Hi PROGRESSon 11-18-2018 PROGRESS HNO ID: [id number] Author: Jaz Moulton Service: ? Author Type: Physician Type: Progress Notes Filed: 11/18/2018 3:08 PM Note Text: PATIENT NAME: Cecelia Johnson CLINIC NO.: [id number] ATTENDING PHYSICIAN: Jaz Moulton MD DATE OF [...] file Gets together: Not on file Attends roman catholic service: Not on file Active member of [...] number below. Jaz Moulton M.D. Hematology/Medical Oncology [place] [phone] CC: Carlos Alberto Coleman MD - (Inactive), In Basket (Inactive) - User (Inactive) [id number] [facility] [phone] (Ph) Mode Renee MD Normal [facility] Basic Metabolic Profon 11-10 (cont.) Normal [facility] Comment on above: Result Comment: Aver age GFR for 20-29 years old: 116 mL/min/1.73sq m Chronic Kidney Disease: <60 mL/min/1.73sq m Kidney failure: <15 mL/min/1.73sq m eGFR calculated using average adult body mass. Additional eGFR calculator available at: http://www.[employer]/multiple_crcl_2012.htm Performed By: #### C FARAZ, BMP #### [facility] [address] [facility] [place], [place] [id number] Fitness [employer] Manager: Victor Manuel Hunter DO Anion gap [Moles/Vol] 11 mmol/L Normal 9-17 [facility] Comment on above: Performed By: #### C FARAZ, BMP #### [facility] [address] [facility] [place] [address] Fitness Club Manager: Victor Manuel Hunter DO Calcium [Mass/Vol] 9.7 mg/dL Normal 8.6-10.4 [facility] Comment on above: Performed By: #### C DP, BMP #### [facility] [address] [place] [address] [employer]itness Club Manager: Victor Manuel Hunter DO Chloride [Moles/Vol] 102 mmol/L Normal 98-107 [facility] Comment on above: Performed By: #### C DP, BMP #### [facility] [place] [address] Fitness Club Manager: Victor Manuel Hunter DO CO2 [Moles/Vol] 26 mmol/L Normal 20-31 [facility] Comment on above: Performed By: #### C DP, BMP #### [facility] [facility] [place] [address] Fitness Club Manager: Victor Manuel Hunter DO Creatinine [Mass/Vol] 0.49 mg/dL Low 0.50-0.90 [facility] Comment on above: Performed By: #### C DP, BMP #### [facility] [place] [address] Fitness Club Manager: Victor Manuel Hunter DO GFR, Amer >60 Normal >60 [facility] Comment on above: Performed By: #### C DP, BMP #### [facility] [facility] [place] [address] Fitness Club Manager: Victor Manuel Hunter DO GFR,non Amer >60 Normal >60 [facility] Comment on above: Performed By: #### C DP, BMP #### [facility] [place] [address] Fitness Club Manager: Victor Manuel Hunter DO Glucose [Mass/Vol] 88 mg/dL Normal 70-99 [facility] Comment on above: Performed By: #### C DP, BMP #### [facility] [place] [address] Fitness Club Manager: Victor Manuel [address] DO Potassium [Moles/Vol] 4.3 mmol/L Normal 3.7-5.3 [facility] Comment on above: Performed By: #### C DP, BMP #### [facility] [address] [place] [address] [employer]itness [employer] Manager: Victor Manuel Hunter DO Sodium [Moles/Vol] 139 mmol/L Normal 135-144 [facility] Comment on above: Performed By: #### C FARAZ, BMP #### [facility] [address] [place] [address] Fitness Club Manager: Victor Manuel Hunter DO Urea nitrogen [Mass/Vol] 8 mg/dL Normal 6-20 [facility] Comment on above: Performed By: #### C FARAZ, BMP #### [facility] [address] [place] [address] Fitness Club Manager: Victor Manuel Hunter DO BUN/CRE Ratio NOT REPORTED Normal 9-20 [facility] Comment on above: Performed By: #### C FARAZ, BMP #### [facility] [address] [place] [address] Fitness Club Manager: Victor Manuel Hunter DO Staging: NOT REPORTED Normal [facility] Comment on above: Performed By: #### C FARAZ, BMP #### [facility] [address] [place] [address] Fitness Club Manager: Victor Manuel Hunter DO CBC with Diffon 11-10-2018 Abs. Basophil 0.00 k/uL Normal 0.0-0.2 [facility] Comment on above: Performed By: #### C DP, BMP #### [facility] [address] [place] [address] Fitness Club Manager: Victor Manuel Hunter DO Abs.Neutrophil (Seg) 3.00 k/uL Normal 1.3-9.1 [facility] Comment on above: Performed By: #### C DP, BMP #### [facility] [place] [address] Fitness Club Manager: Victor Manuel Hunter DO Basophils/100 WBC (Bld) 0 % Normal 0-2 [facility] Comment on above: Performed By: #### C DP, BMP #### [facility] [address] [place] [address] Fitness Club Manager: Victor Manuel Hunter DO Eosinophils (Bld) [#/Vol] 0.10 10*3/uL Normal 0.0-0.4 [facility] Comment on above: Performed By: #### C DP, BMP #### [facility] [address] [place] [address] Fitness Club Manager: Victor Manuel Hunter DO Eosinophils/100 WBC (Bld) 1 % Normal 0-4 [facility] Comment on above: Performed By: #### C DP, BMP #### [facility] [address] [place] [address] Fitness Club Manager: Victor Manuel Hunter DO Erythrocyte distribution width (RBC) [Ratio] 12.7 % Normal 11.5-14.9 [facility] Comment on above: Performed By: #### C DP, BMP #### [facility] [address] [place] [address] Fitness Club Manager: Victor Manuel Hunter DO Hematocrit (Bld) [Volume fraction] 42.3 % Normal 36-46 [facility] Comment on above: Performed By: #### C DP, BMP #### [facility] [address] [place] [address] Fitness Club Manager: Victor Manuel Hunter DO Hemoglobin (Bld) [Mass/Vol] 14.3 g/dL Normal 12.0-16.0 [facility] Comment on above: Performed By: #### C DP, BMP #### [facility] [place] [address] Fitness Club Manager: Victor Manuel Hunter DO Lymphocytes (Bld) [#/Vol] 1.70 10*3/uL Normal 1.0-4.8 [facility] Comment on above: Performed By: #### C DP, BMP #### [facility] [place] [address] Fitness Club Manager: Victor Manuel Hunter DO Lymphocytes/100 WBC (Bld) 32 % Normal 24-44 [facility] Comment on above: Performed By: #### C DP, BMP #### [facility] [address] [place] [address] Fitness Club Manager: Victor Manuel Hunter DO MCH (RBC) [Entitic mass] 30.0 pg Normal 26-34 [facility] Comment on above: Performed By: #### C FARAZ, BMP #### [facility] [address] [place] [address] Fitness Club Manager: Victor Manuel Hunter DO MCHC (RBC) [Mass/Vol] 33.7 g/dL Normal 31-37 [facility] Comment on above: Performed By: #### C FARAZ, BMP #### [facility] [address] [place] [address] Fitness Club Manager: Victor Manuel Hunter DO MCV (RBC) [Entitic vol] 89.0 fL Normal 80-100 [facility] Comment on above: Performed By: #### C DP, BMP #### [facility] [address] [place] [address] Fitness Club Manager: Victor Manuel Hunter DO Monocytes (Bld) [#/Vol] 0.60 10*3/uL Normal 0.1-1.3 [facility] Comment on above: Performed By: #### C DP, BMP #### [facility] [address] [place] [address] Fitness Club Manager: Victor Manuel Hunter DO Monocytes/100 WBC (Bld) 11 % High 1-7 [facility] Comment on above: Performed By: #### C DP, BMP #### [facility] [address] [place] [address] Fitness Club Manager: Victor Manuel Hunter DO Neutrophil (Seg) 56 % Normal 36-66 [facility] Comment on above: Performed By: #### C DP, BMP #### [facility] [place] [address] Fitness Club Manager: Victor Manuel Hunter DO Platelet mean volume (Bld) [Entitic vol] 9.4 fL Normal 6.0-12.0 [facility] Comment on above: Performed By: #### C DP, BMP #### [facility] [place] [address] Fitness Club Manager: Victor Manuel Hunter DO Platelets (Bld) [#/Vol] 252 10*3/uL Normal 150-450 [facility] Comment on above: Performed By: #### C DP, BMP #### [facility] [place] [address] Fitness Club Manager: Victor Manuel Hunter DO RBC (Bld) [#/Vol] 4.75 10*6/uL Normal 4.0-5.2 [facility] Comment on above: Performed By: #### C DP, BMP #### [facility] [address] [place] [address] Fitness Club Manager: Victor Manuel Hunter DO WBC (Bld) [#/Vol] 5.3 10*3/uL Normal 3.5-11.0 [facility] Comment on above: Performed By: #### C DP, BMP #### [facility] [address] [place] [address] Fitness Club Manager: Victor Manuel Hunter DO Abs.Imm.Granulocyte NOT REPORTED Normal 0.00-0.30 [facility] Comment on above: Performed By: #### C DP, BMP #### [facility] [place] [address] Fitness Club Manager: Victor Manuel Hunter DO Auto Diff Performed NOT REPORTED Normal [facility] Comment on above: Performed By: #### C DP, BMP #### [facility] [place] [address] Fitness Club Manager: Victor Manuel Hunter DO Immature granulocytes (Bld) [#/Vol] NOT REPORTED Normal 0 [facility] Comment on above: Performed By: #### C DP, BMP #### [facility] [address] [place] [address] Fitness Club Manager: Victor Manuel Hunter DO NRBC Automated NOT REPORTED Normal [facility] Comment on above: Performed By: #### C DP, BMP #### [facility] [place] [address] Fitness Club Manager: Victor Manuel Hunter DO Platelets (Bld) [#/Vol] NOT REPORTED Normal [facility] Comment on above: Performed By: #### C DP, BMP #### [facility] [place] [address] Fitness Club Manager: Victor Manuel Hunter DO RBC morphology finding Nom (Bld) NOT REPORTED Normal [facility] Comment on above: Performed By: #### C DP, BMP #### [facility] [place] [address] Fitness Club Manager: Victor Manuel Hunter DO WBC Morphology NOT REPORTED Normal [facility] Comment on above: Performed By: #### C FARAZ, ROSA #### [facility] [address] [place] [address] Fitness Club Manager: Victor Manuel Hunter DO Vital Signs Date Time Vital Sign Value Performing Clinician Facility 05-25-2024 14:24-0500 Body mass index (BMI) [Ratio] 33.03 kg/m2 Herber Nnamdi DO Work Phone: [facility] 05-25-2024 14:24-0500 Body weight 87.27 kg Herber Nnamdi DO Work Phone: [facility] 05-25-2024 14:24-0500 Diastolic blood pressure 84 mm[Hg] Herber Nnamdi DO Work Phone: [facility] 05-25-2024 14:24-0500 Systolic blood pressure 124 mm[Hg] Herber Nnamdi DO Work Phone: [facility] 05-09-2024 16:07-0500 Body mass index (BMI) [Ratio] 32.61 kg/m2 Tori Crawford PA Work Phone: [facility] 05-09-2024 16:07-0500 Body weight 86.18 kg Tori Crawford PA Work Phone: [facility] 05-09-2024 16:07-0500 Diastolic blood pressure 82 mm[Hg] Tori Crawford PA Work Phone: [facility] 05-09-2024 16:07-0500 Systolic blood pressure 120 mm[Hg] Tori Dwight PA Work Phone: [facility] 05-03-2024 16:38-0500 Body height 162.6 cm Tori Kylee BEHAVIORAL INSTRUCTOR Work Phone: [facility] 05-03-2024 16:38-0500 Body mass index (BMI) [Ratio] 32.3 kg/m2 Tori Jasonchol BEHAVIORAL INSTRUCTOR Work Phone: [facility] 05-03-2024 16:38-0500 Body temperature 97.59 [degF] Tori Martinez BEHAVIORAL INSTRUCTOR Work Phone: [facility] 05-03-2024 16:38-0500 Body weight 85.37 kg Tori Gomezchol BEHAVIORAL INSTRUCTOR Work Phone: [facility] 05-03-2024 16:38-0500 Diastolic blood pressure 72 mm[Hg] Tori Gomezchol BEHAVIORAL INSTRUCTOR Work Phone: [facility] 05-03-2024 16:38-0500 Heart rate 93 /min Tori Gomezchol BEHAVIORAL INSTRUCTOR Work Phone: [facility] 05-03-2024 16:38-0500 SaO2% (BldA) [Mass fraction] 99 % Tori Gomezchol BEHAVIORAL INSTRUCTOR Work Phone: [facility] 05-03-2024 16:38-0500 Systolic blood pressure 124 mm[Hg] Tori Martinez BEHAVIORAL INSTRUCTOR Work Phone: [facility] 04-21-2024 08:49-0500 Body mass index (BMI) [Ratio] 32.06 kg/m2 Herber Nnamdi DO Work Phone: [facility] 04-21-2024 08:49-0500 Body weight 84.73 kg Herber Nnamdi DO Work Phone: [facility] 04-21-2024 08:49-0500 Diastolic blood pressure 72 mm[Hg] Herber Nnamdi DO Work Phone: [facility] 04-21-2024 08:49-0500 Systolic blood pressure 104 mm[Hg] Herber Nnamdi DO Work Phone: [facility] 04-13-2024 15:58-0500 Body mass index (BMI) [Ratio] 31.78 kg/m2 Tori SHIRLEY Work Phone: [facility] 04-13-2024 15:58-0500 Body weight 83.97 kg Tori SHIRLEY Work Phone: [facility] 04-13-2024 15:58-0500 Diastolic blood pressure 80 mm[Hg] Tori SHIRLEY Work Phone: [facility] 04-13-2024 15:58-0500 Systolic blood pressure 120 mm[Hg] Tori Crawford PA Work Phone: [facility] 04-06-2024 16:29-0500 Body mass index (BMI) [Ratio] 31.65 kg/m2 Tori Dwight PA Work Phone: [facility] 04-06-2024 16:29-0500 Body weight 83.64 kg Tori Crawford PA Work Phone: [facility] 04-06-2024 16:29-0500 Diastolic blood pressure 74 mm[Hg] Tori Crawford PA Work Phone: [facility] 04-06-2024 16:29-0500 Systolic blood pressure 112 mm[Hg] Tori Dwight PA Work Phone: [facility] 03-09-2024 16:25-0500 Body mass index (BMI) [Ratio] 30.88 kg/m2 Tori Dwight PA Work Phone: [facility] 03-09-2024 16:25-0500 Body weight 81.6 kg Tori Crawford PA Work Phone: [facility] 03-09-2024 16:25-0500 Diastolic blood pressure 70 mm[Hg] Tori Crawford PA Work Phone: [facility] 03-09-2024 16:25-0500 Systolic blood pressure 114 mm[Hg] Tori Dwight PA Work Phone: [facility] 02-10-2024 14:44-0400 Body mass index (BMI) [Ratio] 29.39 kg/m2 Herber Nnamdi DO Work Phone: [facility] 02-10-2024 14:44-0400 Body weight 77.68 kg Herber Nnamdi DO Work Phone: [facility] 02-10-2024 14:44-0400 Diastolic blood pressure 68 mm[Hg] Herber Nnadmi DO Work Phone: [facility] 02-10-2024 14:44-0400 Systolic blood pressure 116 mm[Hg] Herber Nnamdi DO Work Phone: [facility] 01-11-2024 16:03-0400 Body mass index (BMI) [Ratio] 28.06 kg/m2 Herber Nnamdi DO Work Phone: [facility] 01-11-2024 16:03-0400 Body weight 74.16 kg Herber Nnamdi DO Work Phone: [facility] 01-11-2024 16:03-0400 Diastolic blood pressure 72 mm[Hg] Herber Nnamdi DO Work Phone: [facility] 01-11-2024 16:03-0400 Systolic blood pressure 118 mm[Hg] Herber Nnamdi DO Work Phone: [facility] 01-29-2022 02:06-0400 Body weight 67.[address] ZEN BREWER . [facility] Comment on above: Performed By: #### [id number] #### [facility] [address] [place] [address] Dr. Garland Kohli Encounters Encounter Date Encounter Type Care Provider Facility Start: 05-31-2024 End: 05-31-2024 Clinisync Result Encounter Herber Nnamdi DO Work Phone: [facility] External Department Unsolicited Start: 05-31-2024 End: 05-31-2024 Clinisync Result Encounter Herber Nnamdi DO Work Phone: [facility] External Department Unsolicited Start: 05-30-2024 End: 05-30-2024 ambulatory HERBER NNAMDI Not Available Start: 05-30-2024 End: 05-30-2024 Bamboo flowsheet Herber Nnamdi DO Work Phone: [facility] Start: 05-30-2024 End: 05-30-2024 Bamboo flowsheet Herber Nnamdi DO Work Phone: [facility] Start: 05-30-2024 End: 05-30-2024 Clinisync Result Encounter Generic External Data Provider [facility] External Department Unsolicited Start: 05-25-2024 End: 05-25-2024 [...] Office outpatient visit 25 minutes Tori Martinez BEHAVIORAL INSTRUCTOR Work Phone: [facility] Comment on above: Need for follow-up c are after discharge (Primary Dx) Start: 05-03-2024 End: 05-03-2024 ambulatory TORI MARTINEZ Not Available Start: 05-03-2024 End: 05-03-2024 Bamboo flowsheet Tori Martinez BEHAVIORAL INSTRUCTOR Work Phone: [facility] Start: 05-03-2024 End: 05-03-2024 Bamboo flowsheet Tori Martinez BEHAVIORAL INSTRUCTOR Work Phone: [facility] Start: 04-21-2024 [...] Start: 04-13-2024 End: 04-13-2024 flow sheet Tori Peep PA Work Phone: [facility] Comment [...] encounter procedure Herber Nnamdi DO Work Phone: [facility] Start: 02-10-2024 End: 02-10-2024 Periodic preventive med est patient 18-39 yrs Herber Nnamdi DO Work Phone: [facility] Comment on above: Well woman [facility] Start: 01-11-2024 End: 01-11-2024 Bamboo flowsheet Herber Nnamdi DO Work Phone: [facility] Start: 12-11-2023 End: 12-11-2023 ambulatory HERBER NNAMDI Not Available Start: 10-16-2023 End: 10-16-2023 ambulatory TORI WARCHOL Not Available Start: 07-17-2023 End: 07-17-2023 ambulatory TORI WARCHOL Not Available Start: 07-13-2023 End: 07-13-2023 Patient encounter procedure MD Carlos Alberto Coleman Work Phone: [facility] Start: 07-13-2023 End: 07-13-2023 ambulatory MD Carlos Alberto Coleman Work Phone: [facility] Work Phone: Start: 07-13-2023 End: 07-13-2023 ambulatory SOFIE GR Not Available Start: 06-02-2023 Refill Tori Martinez BEHAVIORAL INSTRUCTOR Work Phone: [facility] Comment on above: Attention deficit hy peractivity disorder (ADHD), combined type ([facility]) Start: 07-04-2022 End: 07-14-2022 ambulatory ÁNGEL SINHA [...] abnormal findings DR ZEN BREWER . [facility] Start: 01-17-2022 End: 01-17-[address] [...] End: 11-24-2018 Patient encounter procedure [facility] Start: 11-10-2018 End: 11-15-2018 Patient encounter procedure [facility] Procedures Date Procedure Procedure Detail Performing [...] Phone: Start: 01-22-2024 ALL THYROID STIM HORMONE [facility] DO Work Phone: Start: 01-11-2024 Urnls dip stick/tabl et rgnt non-auto w/[facility]p [facility] Work [facility]: Start: 07-13-2023 Respiratory [...] 2024 Influenza vaccination Influenza Vacc ine (#1) [facility] Comment on above: Postponed from 12/26 (Patient Refused) Start: 06-22-2024 End: 06-22-2024 Patient encounter procedure 06/22/2024 3:50 PM EST Routine [facility] [address] [place] [phone] Herber Coto, DO [address] [place] [place] [address] [facility] Start: 06-13-2024 End: 06-13-2024 Patient encounter procedure 06/13/2024 3:20 PM EST Routine [facility] [address] [place] [phone] Herber Coto, DO [address] [place] [address] [facility] Start: 06-06-2024 End: 06-06-2024 Patient encounter procedure 06/06/2024 4:00 PM EST Routine [facility] [address] [place] [phone] Tori Pepe PA [address] [place] [address] [facility] Start: 05-30-2024 End: 05-30-2024 Patient encounter procedure 05/30/2024 3:00 PM EST Routine [facility] [address] [place] [phone] Herber Coto, DO [address] [place] [address] [facility] Start: 05-25-2024 End: 05-25-2024 Patient encounter procedure 05/25/2024 2:10 PM EST Routine [facility] [address] [place] [phone] Herber Coto, DO [address] [place] [address] [facility] Start: 05-09-2024 End: 05-09-2024 Patient encounter procedure [facility] Comment on above: Arrived Start: 05-03-2024 End: 05-03-2024 Patient encounter procedure 05/03/2024 4:40 PM EST Office Visit [facility] [address] [place] [address] Tori Martinez, HERRERA [address] [place] [address] Need for follow-up care after discharge (Primary Dx) [facility] Comment on above: Need for follow-up c are after discharge (Primary Dx) Start: 04-21-2024 End: 04-21-2024 Patient encounter procedure 04/21/2024 8:30 AM EST Routine [facility] [address] [place] [phone] Herber Coto, [place] [address] [facility] Start: 04-13-2024 End: 04-13-2024 [...] EST Routine [facility] [address] [facility] [place] [address] Tori Pepe PA [address] [facility] [place] [address] [facility] Start: 04-03-2024 End: 03-04-2025 US for US OB INCOMPLETE ANATOMY Imaging Routine Encounter for follow-up ultrasound of anatomy Expected: 04/03/2024 (Approximate), Expires: 03/04/2025 [facility] Work Phone: Comment on above: Expected: 04/03/2024 (Approximate), Expires: 03/04/2025 Start: 03-09-2024 End: 03-09-2024 Patient encounter procedure 03/09/2024 3:50 PM EST Routine [facility] [address] [place] [phone] Tori Pepe PA [address] [place] [address] [place] [address] [facility] Start: 03-09-2024 End: 03-09-2025 CBC panel - Blood by Automated count CBC Lab Routine Diabetes mellitus screening Expected: 03/09/2024 (Approximate), Expires: 03/09/2025 [facility] Healthcare Comment on above: Expected: 03/09/2024 (Approximate), Expires: 03/09/2025 Start: 03-09-2024 End: 03-09-2025 Measurement of glucose 1 hour after glucose challenge for glucose tolerance test Glucose tolerance, 1 hour Lab Routine Diabetes mellitus screening Expected: 03/09/2024 (Approximate), Expires: 03/09/2025 [facility] Healthcare Comment on above: Expected: 03/09/2024 (Approximate), Expires: 03/09/2025 Start: 03-09-2024 End: 03-09-2025 US for US OB SCAN FOR GROWTH Imaging Routine Hypothyroidism, unspecified type (CMS/HCC) Expected: 03/09/2024 (Approximate), Expires: 03/09/2025 [facility] Healthcare Comment on above: Expected: 03/09/2024 (Approximate), [...] anatomic survey Expected: 02/10/2024 (Approximate), Expires: 02/09/2025 [facility] Comment on above: Expected: 02/10/2024 (Approximate), Expires: 02/09/2025 Start: 02-10-2024 End: 02-10-2024 Patient encounter procedure 02/10/2024 1:50 PM EDT Routine [facility] [address] [facility] [place] [phone] Herber Coto, DO [address] [place] [address] [facility] Start: 01-11-2024 End: 01-11-2024 Patient encounter procedure 01/11/2024 3:50 PM EDT Routine [facility] [address] [place] [phone] Herber Coto, DO [address] [place], [place] [id number] Arrived [facility] Comment on above: Arrived Start: 12-27-2023 Influenza vaccination Influenza Vacc ine (#1) [facility] Start: 10-25-2023 Influenza vaccination Influenza Vacc ine (#1) [facility] Comment on above: Postponed from 12/26 (Patient Refused) Start: 10-25-2023 Screening for malign ant neoplasm of cervix [facility] Start: 07-17-2023 End: 07-17-2023 Patient encounter procedure 07/17/2023 8:00 AM EDT Office Visit [facility] [address] [place] [phone] Tori Martinez NP [address] [place] [address] [facility] Start: 2014 Screening for malign ant neoplasm of cervix Pap Smear [facility] CHLAMYDIA TRACHOMATI S (GENITO/STI) CHLAMYDIA TRACHOMATIS (GENITO/STI) Lab Routine Screen for STD (sexually transmitted disease) Vaginal discharge Ordered: 02/10/2024 [facility] Comment on above: Ordered: 02/10/2024 Cytology Cervical or vaginal smear or scraping study Pap Smear Pathology and Cytology Routine Well woman exam with routine gynecological exam Ordered: 02/10/2024 [facility] Comment on above: Ordered: 02/10/2024 Human papilloma viru s DNA [Presence] in Unspecified specimen by Probe with amplification HPV DNA probe, amplified Microbiology Routine Well woman exam with routine gynecological exam Ordered: 02/10/2024 [facility] Comment on above: Ordered: 02/10/2024 Neisseria gonorrhoea e DNA [Presence] in Unspecified specimen by JUAN with probe detection Neisseria gonorrhea DNA probe, direct Lab Routine Screen for STD (sexually transmitted disease) Vaginal discharge Ordered: 02/10/2024 [facility] Comment on above: Ordered: 02/10/2024 SURESWAB(R) ADVANCED VAGINITIS PLUS, TMA SURESWAB(R) ADVANCED VAGINITIS PLUS, TMA Pathology and Cytology Routine Screen for STD (sexually transmitted disease) Vaginal discharge Ordered: 02/10/2024 [facility] Work Phone: Comment on above: Ordered: 02/10/2024 Thyrotropin [Units/volume] in Serum or Plasma TSH Lab Routine Other specified hypothyroidism (CMS/HCC) Ordered: 01/11/2024 [facility] Work Phone: Comment on above: Ordered: 01/11/2024 Thyrotropin [Units/volume] in Serum or Plasma TSH Lab Routine Hypothyroidism, unspecified type ([facility]) Ordered: 04/13/2024 [facility] Comment on above: Ordered: 04/13/2024 Immunizations Immunization Date Immunization Notes Care Provider Byron carlson 05-05-2015 tetanus toxoid, redu catherine diphtheria toxoid, and acellular pertussis vaccine, adsorbed Tori Warchol BEHAVIORAL INSTRUCTOR Work Phone: [facility] 02-14-2009 influenza, seasonal, injectable Tori Warchol BEHAVIORAL INSTRUCTOR Work Phone: [facility] 02-14-2009 influenza virus vacc ine, unspecified formulation Tori Warchol BEHAVIORAL INSTRUCTOR Work Phone: [facility] 12-12-2005 hepatitis A vaccine, unspecified formulation Tori Warchol BEHAVIORAL INSTRUCTOR Work Phone: [facility] 12-12-2005 tetanus toxoid, redu catherine diphtheria toxoid, and acellular pertussis vaccine, adsorbed Tori Warchol BEHAVIORAL INSTRUCTOR Work Phone: [facility] 11-19-1998 diphtheria, tetanus toxoids and acellular pertussis vaccine, unspecified formulation Tori Warchol BEHAVIORAL INSTRUCTOR Work Phone: [facility] 11-19-1998 measles, mumps and rubella virus vaccine Tori Warchol BEHAVIORAL INSTRUCTOR Work Phone: [facility] 11-19-1998 trivalent poliovirus vaccine, live, oral Tori Warchol BEHAVIORAL INSTRUCTOR Work Phone: [facility] 09-14-1995 diphtheria, tetanus toxoids and acellular pertussis vaccine, unspecified formulation Tori Warchol BEHAVIORAL INSTRUCTOR Work Phone: [facility] 09-14-1995 haemophilus influenz ae type b vaccine, conjugate unspecified formulation Tori Warchol BEHAVIORAL INSTRUCTOR Work Phone: [facility] 11-20-1994 DTP-Haemophilus influenzae type b conjugate vaccine Tori Warchol BEHAVIORAL INSTRUCTOR Work Phone: [facility] 11-20-1994 hepatitis B vaccine, pediatric or pediatric/adolescent dosage Tori Warchol BEHAVIORAL INSTRUCTOR Work Phone: [facility] 11-20-1994 measles, mumps and rubella virus vaccine Tori Warchol BEHAVIORAL INSTRUCTOR Work Phone: [facility] 11-20-1994 trivalent poliovirus vaccine, live, oral Tori Warchol BEHAVIORAL INSTRUCTOR Work Phone: [facility] 09-18-1994 DTP-Haemophilus influenzae type b conjugate vaccine Tori Warchol BEHAVIORAL INSTRUCTOR Work Phone: [facility] 09-18-1994 hepatitis B vaccine, pediatric or pediatric/adolescent dosage Tori Warchol BEHAVIORAL INSTRUCTOR Work Phone: [facility] 09-18-1994 trivalent poliovirus vaccine, live, oral Tori Warchol BEHAVIORAL INSTRUCTOR Work Phone: [facility] 1993 diphtheria, tetanus toxoids and pertussis vaccine Tori Warchol BEHAVIORAL INSTRUCTOR Work Phone: [facility] 1993 haemophilus influenz ae type b vaccine, conjugate unspecified formulation Tori Warchol BEHAVIORAL INSTRUCTOR Work Phone: [facility] 1993 hepatitis B vaccine, pediatric or pediatric/adolescent dosage Tori Warchol BEHAVIORAL INSTRUCTOR Work Phone: [facility] 1993 trivalent poliovirus vaccine, live, oral Tori Warchol BEHAVIORAL INSTRUCTOR Work Phone: [facility] Payers Date Payer Category Payer Self-pay [id number] 2023 Medicaid [id number] 2022 Blue Cross Blue Shield [id number] 2022 Unknown BCBS BCBS xxxxxx [id number] 2022-Present [phone] [address] [place] [address] [id number] 2017 Private Health Insurance [id number] 1993 Unknown [id number] 2.16.840.1.745813.3.579.2.1 76 1993 Unknown [id number] 2.16.840.1.129260.3.579.2.1 76 1993 Unknown [id number] 2.16.840.1.917671.3.579.2.5 93 1993 Unknown [id number] 2.16.840.1.779119.3.579.2.5 93 1993 Unknown [id number] 2.16.840.1.491296.3.579.2.5 93 1993 Unknown [id number] 2.16.840.1.332329.3.579.2.5 93 1993 Unknown [id number] 2.16.840.1.706089.3.579.2.5 93 1993 Unknown [id number] 2.16.840.1.482725.3.579.2.5 93 1993 Unknown [id number] 2.16.840.1.672314.3.579.2.5 93 1993 Unknown [id number] 2.16.840.1.426247.3.579.2.5 93 1993 Unknown [id number] 2.16.840.1.524137.3.579.2.5 93 1993 Unknown [id number] 2.16.840.1.443617.3.579.2.5 93 1993 Unknown [id number] 2.16.840.1.667150.3.579.2.5 93 1993 Unknown [id number] 2.16.840.1.386897.3.579.2.5 93 1993 Unknown [id number] 2.16.840.1.704366.3.579.2.5 93 1993 Unknown [id number] 2.16.840.1.201168.3.579.2.5 93 1993 Unknown [id number] 2.16.840.1.690984.3.579.2.1 259 1993 Unknown [id number] 2.16.840.1.022675.3.579.2.1 259 1993 Unknown [id number] 2.16.840.1.648118.3.579.2.1 259 1993 Unknown [id number] 2.16.840.1.615636.3.579.2.1 259 1993 Unknown [id number] 2.16.840.1.319613.3.579.2.1 259 1993 Unknown [id number] 2.16.840.1.775335.3.579.2.1 259 1993 Unknown [id number] 2.16.840.1.994945.3.579.2.1 259 1993 Unknown [id number] 2.16.840.1.457797.3.579.2.1 259 1993 Unknown [id number] 2.16.840.1.458798.3.579.2.1 259 1993 Unknown [id number] 2.16.840.1.546460.3.579.2.1 259 1993 Unknown [id number] 2.16.840.1.005213.3.579.2.1 259 1993 Unknown [id number] 2.16.840.1.869439.3.579.2.1 259 1993 Unknown [id number] 2.16.840.1.016784.3.579.2.1 259 1993 Unknown [id number] 2.16.840.1.786050.3.579.2.1 259 1959 Self-pay [id number] 1959 Unknown [id number] 1959 Unknown [id number] 1959 Unknown [id number] Unknown [id number] 2.16.840.1.359991.3.579.2.5 93 Unknown HCAP/HFA/FAP Active [id number] Unknown [id number] 2.16.840.1.868121.3.579.2.5 31 Social History Date Type Detail Facility Start: 08-27-2016 End: 09-25-2022 Tobacco smoking status NVIS Never smoked tobacco [facility] Health care Start: 09-25-2022 Tobacco use and exposure Smoke less tobacco non-user [facility] Start: 04-16-2023 End: 04-13-2024 Alcohol intake Current drinker of alcohol (finding) [facility] Start: 04-16-2023 End: 05-03-2024 Alcohol [...] Start: 1995 Sex Assigned At Female [facility] Start: 09-24-2022 Gender identity Identifies as female gender (finding) [facility] Start: 10-08-2023 [facility] Start: 05-03-2024 End: 05-25-2024 Alcoholic beverage intake Ex-drinker (finding) [facility] re Medical Equipment Procedure Code Equipment Code Equipment Origin al Text Equipment Identifier Dates 1 strip by In Vi tro route Daily Use in the morning prior to breakfast, 1 hour after each meal for a total of 4times daily. [id number] Start: 03-21-2024 End: 04-20-2024 1 each by In Vit ro route Daily Use to check FSBS four times daily [id number] Start: 03-21-2024 End: 04-20-2024 Clinical Notes 06-02-2023 [...] 81 mg, Daily Blood Glucose Monitoring Suppl (D-Karmasphere Glucometer) w/Device kit 1 kit, Does not [...] esophagitis 09/01/2022 Moderate persistent asthma without complication ([facility]) 09/01/2022 Hypothyroidism, unspecified ([facility]) 03/02/2020 Moderate asthma ([facility]) 01/11/2024 30 weeks gestation of 04/21/2024 Third trimester 04/21/2024 Resolved Ambulatory Problems Diagnosis Date Noted Acquired hypothyroidism ([facility]) 09/01/2022 Allergic rhinitis 09/01/2022 Amenorrhea 09/01/2022 Asthma without status asthmaticus ([facility]) 09/01/2022 Attention deficit hyperactivity disorder ([facility]) 09/01/2022 Asthma affecting , antepartum ([facility]) 09/01/2022 Binge eating disorder 09/01/2022 Difficulty concentrating 09/01/2022 Irregular menstrual cycle 09/01/2022 Left sided sciatica 09/01/2022 Insomnia 09/01/2022 Migraines ([facility]) 09/01/2022 Metallic taste 09/01/2022 Mild persistent asthma without complication ([facility]) 09/01/2022 MTHFR mutation 09/01/2022 Nondependent cannabis abuse 09/01/2022 Other chronic pain 09/01/2022 Seasonal allergies 09/01/2022 Skin sensation disturbance 09/01/2022 Transitory mood disturbance 09/01/2022 Verruca plantaris 09/01/2022 Past Medical History: Diagnosis Date Acid reflux ADHD (attention deficit hyperactivity disorder) ([facility]) Asthma ([facility]) GERD (gastroesophageal reflux disease) Hypothyroid ([facility]) Lactose intolerance Marijuana use Migraine ([facility]) Mild persistent asthma, uncomplicated ([facility]) Supervision of normal Thyroid disease ([facility]) HISTORY PAST MEDICAL HISTORY SOCIAL HISTORY Past Medical History: Diagnosis Date Acid reflux ADHD (attention deficit hyperactivity disorder) ([facility]) Asthma ([facility]) Asthma affecting , antepartum ([facility]) GERD (gastroesophageal reflux disease) Hypothyroid ([facility]) Lactose intolerance Marijuana use Migraine ([facility]) Mild persistent asthma, uncomplicated ([facility]) MTHFR mutation Seasonal allergies Supervision of normal Thyroid disease ([facility]) Social History Tobacco Use Smoking status: Never [...] nursing note reviewed. Exam conducted with a reel winder present. Vitals: Estimated body mass index is [...] Herber Coto DO documented in this encounter [facility] 05-09-2024 History of Presen t illness Narrative [...] esophagitis 09/01/2022 Moderate persistent asthma without complication ([facility] [facility] 09/01/2022 Hypothyroidism, unspecified ([facility]) 03/02/2020 Moderate asthma ([facility]) 01/11/2024 30 weeks gestation of 04/21/2024 Third trimester 04/21/2024 Resolved Ambulatory Problems Diagnosis Date Noted Acquired hypothyroidism ([facility]) 09/01/2022 Allergic rhinitis 09/01/2022 Amenorrhea 09/01/2022 Asthma without status asthmaticus ([facility]) 09/01/2022 Attention deficit hyperactivity disorder ([facility]) 09/01/2022 Asthma affecting , antepartum ([facility]) 09/01/2022 Binge eating disorder 09/01/2022 Difficulty concentrating 09/01/2022 Irregular menstrual cycle 09/01/2022 Left sided sciatica 09/01/2022 Insomnia 09/01/2022 Migraines ([facility]) 09/01/2022 Metallic taste 09/01/2022 Mild persistent asthma without complication ([facility]) 09/01/2022 MTHFR mutation 09/01/2022 Nondependent cannabis abuse 09/01/2022 Other chronic pain 09/01/2022 Seasonal allergies 09/01/2022 Skin sensation disturbance 09/01/2022 Transitory mood disturbance 09/01/2022 Verruca plantaris 09/01/2022 Past Medical History: Diagnosis Date Acid reflux ADHD (attention deficit hyperactivity disorder) ([facility]) Asthma ([facility]) GERD (gastroesophageal reflux disease) Hypothyroid ([facility]) Lactose intolerance Marijuana use Migraine ([facility]) Mild persistent asthma, uncomplicated ([facility] [place]) Supervision of normal Thyroid disease ([facility]) HISTORY PAST MEDICAL HISTORY SOCIAL HISTORY Past Medical History: Diagnosis Date Acid reflux ADHD (attention deficit hyperactivity disorder) ([facility] Asthma ([facility]) Asthma affecting , antepartum ([facility] [place]) GERD (gastroesophageal reflux disease) Hypothyroid ([facility] [place]) Lactose intolerance Marijuana use Migraine ([facility] [place]) Mild persistent asthma, uncomplicated ([facility] [place]) MTHFR mutation Seasonal allergies Supervision of normal Thyroid disease ([facility] [place]) Social History Tobacco Use Smoking status: Never [...] of: FERN Luis documented in this encounter [facility] 05-03-2024 History of Presen t illness [...] each, Rfl: 3 Blood Glucose Monitoring Suppl (Mintigo-Karmasphere Glucometer) w/Device kit, 1 kit Daily Use [...] not improve . documented in this encounter [facility] 05-03-2024 Instructions Tori Martinez NP - 05/03/2024 4:40 PM EST PATIENT EDUCATION: ER follow-up The patient was seen today in follow-up of recent hospital ER/UC visit. All available records/labs/diagnostics were reviewed and discussed with the patient. ER/UC discharge meds were reviewed. Any changes to plan are noted above. documented in this encounter [facility] 04-21-2024 History of Presen t illness [...] to check FSBS. Blood Glucose Monitoring Suppl (D-Karmasphere Glucometer) w/Device kit 1 kit, Does not [...] esophagitis 09/01/2022 Moderate persistent asthma without complication ([facility] [place]) 09/01/2022 Hypothyroidism, unspecified ([facility] [place]) 03/02/2020 Moderate asthma ([facility] [place]) 01/11/2024 30 weeks gestation of 04/21/2024 Third trimester 04/21/2024 Resolved Ambulatory Problems Diagnosis Date Noted Acquired hypothyroidism ([facility]) 09/01/2022 Allergic rhinitis 09/01/2022 Amenorrhea 09/01/2022 Asthma without status asthmaticus ([facility]) 09/01/2022 Attention deficit hyperactivity disorder ([facility]) 09/01/2022 Asthma affecting , antepartum ([facility]) 09/01/2022 Binge eating disorder 09/01/2022 Difficulty concentrating [...] Acid reflux ADHD (attention deficit hyperactivity disorder) ([facility]/HCC) Asthma ([facility]CC) GERD (gastroesophageal reflux disease) Hypothyroid ([facility]/HCC) Lactose intolerance Marijuana use Migraine (CMS/HCC) Mild persistent asthma, uncomplicated ([facility]) Supervision of normal Thyroid disease ([facility] [place]) HISTORY PAST MEDICAL HISTORY SOCIAL HISTORY Past Medical History: Diagnosis Date Acid reflux ADHD (attention deficit hyperactivity disorder) ([facility]/HCC) Asthma (CMS/HCC) Asthma affecting , antepartum ([facility]/HCC) GERD (gastroesophageal reflux disease) Hypothyroid ([facility]) Lactose intolerance Marijuana use Migraine ([facility]/HCC) Mild persistent asthma, uncomplicated ([facility] [place]) MTHFR mutation Seasonal allergies Supervision of normal Thyroid disease ([facility] [place]) Social History Tobacco Use Smoking status: Never [...] nursing note reviewed. Exam conducted with a reel winder present. Vitals: Estimated body mass index is [...] Herber Coto DO documented in this encounter [facility] 04-13-2024 History of Presen t illness [...] to check FSBS. Blood Glucose Monitoring Suppl (D-Karmasphere Glucometer) w/Device kit 1 kit, Does not [...] esophagitis 09/01/2022 Moderate persistent asthma without complication ([facility]) 09/01/2022 Hypothyroidism, unspecified ([facility]) 03/02/2020 Moderate asthma ([facility]) 01/11/2024 Resolved Ambulatory Problems Diagnosis Date Noted Acquired hypothyroidism ([facility]) 09/01/2022 Allergic rhinitis 09/01/2022 Amenorrhea 09/01/2022 Asthma without status asthmaticus ([facility]) 09/01/2022 Attention deficit hyperactivity disorder ([facility]) 09/01/2022 Asthma affecting , antepartum ([facility]) 09/01/2022 Binge eating disorder 09/01/2022 Difficulty concentrating 09/01/2022 Irregular menstrual cycle 09/01/2022 Left sided sciatica 09/01/2022 Insomnia 09/01/2022 Migraines ([facility]) 09/01/2022 Metallic taste 09/01/2022 Mild persistent asthma without complication ([facility]) 09/01/2022 MTHFR mutation 09/01/2022 Nondependent cannabis abuse 09/01/2022 Other chronic pain 09/01/2022 Seasonal allergies 09/01/2022 Skin sensation disturbance 09/01/2022 Transitory mood disturbance 09/01/2022 Verruca plantaris 09/01/2022 Past Medical History: Diagnosis Date Acid reflux ADHD (attention deficit hyperactivity disorder) ([facility]) Asthma ([facility]) GERD (gastroesophageal reflux disease) Hypothyroid ([facility]) Lactose intolerance Marijuana use Migraine ([facility]) Mild persistent asthma, uncomplicated ([facility]) Supervision of normal Thyroid disease ([facility]) HISTORY PAST MEDICAL HISTORY SOCIAL HISTORY Past Medical History: Diagnosis Date Acid reflux ADHD (attention deficit hyperactivity disorder) ([facility]) Asthma ([facility] [place]) Asthma affecting , antepartum ([facility]) GERD (gastroesophageal reflux disease) Hypothyroid [...] of: FERN Luis documented in this encounter [facility] 04-06-2024 History of Presen t illness [...] tablet As directed Blood Glucose Monitoring Suppl (D-Karmasphere Glucometer) w/Device kit 1 kit, Does not [...] esophagitis 09/01/2022 Moderate persistent asthma without complication ([facility]) 09/01/2022 Hypothyroidism, unspecified ([facility]) 03/02/2020 Moderate asthma ([facility]) 01/11/2024 Resolved Ambulatory Problems Diagnosis Date Noted Acquired hypothyroidism ([facility]) 09/01/2022 Allergic rhinitis 09/01/2022 Amenorrhea 09/01/2022 Asthma without status asthmaticus ([facility]) 09/01/2022 Attention deficit hyperactivity disorder ([facility]) 09/01/2022 Asthma affecting , antepartum ([facility] [place]) 09/01/2022 Binge eating disorder 09/01/2022 Difficulty concentrating 09/01/2022 Irregular menstrual cycle 09/01/2022 Left sided sciatica 09/01/2022 Insomnia 09/01/2022 Migraines ([facility]) 09/01/2022 Metallic taste 09/01/2022 Mild persistent asthma without complication ([facility]) 09/01/2022 MTHFR mutation 09/01/2022 Nondependent cannabis abuse 09/01/2022 Other chronic pain 09/01/2022 Seasonal allergies 09/01/2022 Skin sensation disturbance 09/01/2022 Transitory mood disturbance 09/01/2022 Verruca plantaris 09/01/2022 Past Medical History: Diagnosis Date Acid reflux ADHD (attention deficit hyperactivity disorder) ([facility] [place]) Asthma ([facility]) GERD (gastroesophageal reflux disease) Hypothyroid ([facility]) Lactose intolerance Marijuana use Migraine ([facility]) Mild persistent asthma, uncomplicated ([facility]) Supervision of normal Thyroid disease ([facility]) HISTORY PAST MEDICAL HISTORY SOCIAL HISTORY Past Medical History: Diagnosis Date Acid reflux ADHD (attention deficit hyperactivity disorder) ([facility] Asthma ([facility]) Asthma affecting , antepartum ([facility]) GERD (gastroesophageal reflux disease) Hypothyroid ([facility] [place]) Lactose intolerance Marijuana use Migraine ([facility]) Mild persistent asthma, uncomplicated ([facility] [place]) MTHFR mutation Seasonal allergies Supervision of normal Thyroid disease ([facility] [place]) Social History Tobacco Use Smoking status: Never [...] of: FERN Luis documented in this encounter [facility] 03-09-2024 History of Presen t illness [...] esophagitis 09/01/2022 Moderate persistent asthma without complication ([facility]) 09/01/2022 Hypothyroidism, unspecified ([facility] [place]) 03/02/2020 Moderate asthma ([facility]) 01/11/2024 Resolved Ambulatory Problems Diagnosis Date Noted Acquired hypothyroidism ([facility] [place]) 09/01/2022 Allergic rhinitis 09/01/2022 Amenorrhea 09/01/2022 Asthma without status asthmaticus ([facility]) 09/01/2022 Attention deficit hyperactivity disorder ([facility] [place]) 09/01/2022 Asthma affecting , antepartum ([facility] [place]) 09/01/2022 Binge eating disorder 09/01/2022 Difficulty concentrating 09/01/2022 Irregular menstrual cycle 09/01/2022 Left sided sciatica 09/01/2022 Insomnia 09/01/2022 Migraines ([facility] [place]) 09/01/2022 Metallic taste 09/01/2022 Mild persistent asthma without complication ([facility] [place]) 09/01/2022 MTHFR mutation 09/01/2022 Nondependent cannabis abuse 09/01/2022 Other chronic pain 09/01/2022 Seasonal allergies 09/01/2022 Skin sensation disturbance 09/01/2022 Transitory mood disturbance 09/01/2022 Verruca plantaris 09/01/2022 Past Medical History: Diagnosis Date Acid reflux ADHD (attention deficit hyperactivity disorder) ([facility] [place]) Asthma ([facility]) GERD (gastroesophageal reflux disease) Hypothyroid ([facility] [place]) Lactose intolerance Marijuana use Migraine ([facility] [place]) Mild persistent asthma, uncomplicated ([facility] [place]) Supervision of normal Thyroid disease ([facility] [place]) HISTORY PAST MEDICAL HISTORY SOCIAL HISTORY Past Medical History: Diagnosis Date Acid reflux ADHD (attention deficit hyperactivity disorder) ([facility] Asthma ([facility] [place] Asthma affecting , antepartum ([facility] [place]) GERD (gastroesophageal reflux disease) Hypothyroid ([facility] [place]) Lactose intolerance Marijuana use Migraine ([facility]) Mild persistent asthma, uncomplicated ([facility] [place]) MTHFR mutation Seasonal allergies Supervision of normal Thyroid disease ([facility] [place]) Social History Tobacco Use Smoking status: Never [...] of: FERN Luis documented in this encounter [facility] 03-09-2024 Miscellaneous Notes Addended by: NIALL CONSTANTINO on: 03/10/2024 09:01 AM Modules accepted: Orders documented in this encounter [facility] 03-09-2024 Note Addended by: NIALL CLEVELAND on: 03/10/2024 09:01 AM Modules accepted: Orders [facility] 03-09-2024 Note Addended by: NIALL CLEVELAND on: 03/10/2024 09:01 AM Modules accepted: Orders [facility] 02-10-2024 History of Presen t illness Narrative [...] esophagitis 09/01/2022 Moderate persistent asthma without complication ([facility]) 09/01/2022 Hypothyroidism, unspecified ([facility]) 03/02/2020 Moderate asthma ([facility]) 01/11/2024 Resolved Ambulatory Problems Diagnosis Date Noted Acquired hypothyroidism ([facility]) 09/01/2022 Allergic rhinitis 09/01/2022 Amenorrhea 09/01/2022 Asthma without status asthmaticus ([facility]) 09/01/2022 Attention deficit hyperactivity disorder ([facility]) 09/01/2022 Asthma affecting , antepartum ([facility]) 09/01/2022 Binge eating disorder 09/01/2022 Difficulty concentrating 09/01/2022 Irregular menstrual cycle 09/01/2022 Left sided sciatica 09/01/2022 Insomnia 09/01/2022 Migraines ([facility]) 09/01/2022 Metallic taste 09/01/2022 Mild persistent asthma without complication ([facility]) 09/01/2022 MTHFR mutation 09/01/2022 Nondependent cannabis abuse 09/01/2022 Other chronic pain 09/01/2022 Seasonal allergies 09/01/2022 Skin sensation disturbance 09/01/2022 Transitory mood disturbance 09/01/2022 Verruca plantaris 09/01/2022 Past Medical History: Diagnosis Date Acid reflux ADHD (attention deficit hyperactivity disorder) ([facility]) Asthma ([facility]) GERD (gastroesophageal reflux disease) Hypothyroid ([facility]) Lactose intolerance Marijuana use Migraine ([facility]) Mild persistent asthma, uncomplicated ([facility]) Supervision of normal Thyroid disease ([facility]) HISTORY PAST MEDICAL HISTORY SOCIAL HISTORY Past Medical History: Diagnosis Date Acid reflux ADHD (attention deficit hyperactivity disorder) ([facility]) Asthma ([facility]) Asthma affecting , antepartum ([facility]) GERD (gastroesophageal reflux disease) Hypothyroid ([facility]) Lactose intolerance Marijuana use Migraine (CMS/HCC) Mild [...] Herber Coto DO documented in this encounter [facility] 01-11-2024 History of Presen t illness [...] esophagitis 09/01/2022 Moderate persistent asthma without complication ([facility]) 09/01/2022 Hypothyroidism, unspecified ([facility]) 03/02/2020 Resolved Ambulatory Problems Diagnosis Date Noted Acquired hypothyroidism ([facility]) 09/01/2022 Allergic rhinitis 09/01/2022 Amenorrhea 09/01/2022 Asthma without status asthmaticus ([facility]) 09/01/2022 Attention deficit hyperactivity disorder ([facility]) 09/01/2022 Asthma affecting , antepartum ([facility]) 09/01/2022 Binge eating disorder ([facility]) 09/01/2022 Difficulty concentrating 09/01/2022 Irregular menstrual cycle 09/01/2022 Left sided sciatica 09/01/2022 Insomnia 09/01/2022 Migraines ([facility]) 09/01/2022 Metallic taste 09/01/2022 Mild persistent asthma without complication ([facility]) 09/01/2022 MTHFR mutation 09/01/2022 Nondependent cannabis abuse 09/01/2022 Other chronic pain 09/01/2022 Seasonal allergies 09/01/2022 Skin sensation disturbance 09/01/2022 Transitory mood disturbance 09/01/2022 Verruca plantaris 09/01/2022 Past Medical History: Diagnosis Date Acid reflux ADHD (attention deficit hyperactivity disorder) ([facility]CC) Asthma ([facility]) GERD (gastroesophageal reflux disease) Hypothyroid ([facility]/HCC) Lactose intolerance Marijuana use Migraine ([facility]CC) Mild persistent asthma, uncomplicated ([facility]) Supervision of normal Thyroid disease ([facility]) HISTORY PAST MEDICAL HISTORY SOCIAL HISTORY Past Medical History: Diagnosis Date Acid reflux ADHD (attention deficit hyperactivity disorder) ([facility]) Asthma ([facility]/HCC) Asthma affecting , antepartum ([facility]) GERD (gastroesophageal reflux disease) Hypothyroid ([facility]) Lactose intolerance Marijuana use Migraine ([facility]) Mild persistent asthma, uncomplicated ([facility]) MTHFR mutation Seasonal allergies Supervision of normal Thyroid disease ([facility]) Social History Tobacco Use Smoking status: Never [...] nursing note reviewed. Exam conducted with a reel winder present. Vitals: Estimated body mass index is [...] undercooked meat, and stay away from [facility]. Patient has been consulted regarding any [...] done she will reach out to office. Technology Trainer will be notified at time of delivery [...] . Informed patient since she sees a Manager Quality Systems to schedule appointment to make sure asthma is controlled during . Patient is currently taking Vozeeme Chewable kids vitamins. Patient is taking 2 [...] Herber Coto DO documented in this encounter [facility] 06-04-2023 Telephone encount er Note Sent [facility] 06-04-2023 Miscellaneous Notes Formattin g of this note might be different from the original. Sent Patient requesting refill/[place] documented in this encounter [facility] 06-02-2023 Telephone encount er Note Patient requesting refill/[place] [facility] Evaluation note Diagnosis Attention deficit hyperactivity disorder (ADHD), combined type (CMS/HCC) documented in this encounter [facility] HealthcareEvaluation noteNo assessment information availableFirelands Regional [facility] [facility] Work Phone: Evaluation note* Diagnosis Well woman exam with routine gynecological exam Routine gynecological examination Screening, , for anatomic survey Encounter for anatomic survey Second trimester state, incidental 19 weeks gestation of Screen for STD (sexually transmitted disease) Screening examination for venereal disease Vaginal discharge Leukorrhea, not specified as infective headache in second trimester documented in this encounter [facility] HealthcareEvaluation note* Diagnosis Encounter for follow-up ultrasound of anatomy Second trimester state, incidental 23 weeks gestation of Hypothyroidism, unspecified type (CMS/HCC) Diabetes mellitus screening Screening for diabetes mellitus Anxiety, generalized (CMS/HCC) documented in this encounter [facility] HealthcareEvaluation note* Diagnosis Second trimester state, [...] section and content) DATE CREATED AUTHOR 11/18/2018 [facility] DATE CREATED AUTHOR AUTHOR'S ORGANIZ ATION 11/26/2018 [facility] DATE CREATED AUTHOR AUTHOR'S ORGANIZ ATION 09/09/2022 [facility] DATE CREATED AUTHOR AUTHOR'S ORGANIZ ATION 03/16/2024 [facility] DATE CREATED AUTHOR AUTHOR'S ORGANIZ ATION 06/01/2024 [facility] EPIC Reason for Visit (unrecogniz ed section and content) Reason Onset Date Comments Med Refill 06/02/2023 Reason Comments Routine Visit Care Teams (unrecognized sec tion and content) Photolith Operator Relationship Specialty Start Date End Date Carlos Alberto Coleman MD [address] [place] [address] PCP - General Family Medicine 09/24/22 Tori Martinez NP [address] [place] [id number] Nurse Practitioner Family Medicine 09/24/22 Sofie Gr NP [address] [place] [address] Nurse Practitioner Pulmonary Disease 04/14/23 Team Status: Active Member Role Status Dates Carlos Alberto Coleman MD Primary Care Provider Active Team Status: Inactive Member Role Status Dates Carlos Alberto Coleman MD Primary Care Provider Active S tart: July 13, 2023 End: July 13, 2023 Sofie Gr NP-C Attending Provider Active Start: July 13, 2023 End: July 13, 2023 Photolith Operator Relationship Specialty Start Date End Date Carlos Alberto Coleman MD [address] [place] [id number] PCP - General Family Medicine 09/24/22 Tori Martinez NP [address] [place] [facility] PCP - Juda Commercial 05/28/23 Tori Martinez NP [address] [facility] Nurse Practitioner Family Medicine 09/24/22 Sofie Gr NP [address] [place] [address] Nurse Practitioner Pulmonary Disease 04/14/23 Photolith Operator Relationship Specialty Start Date End Date Carlos Alberto Coleman MD [address] [place] [id number] PCP - General Family Medicine 09/24/22 Tori Martinez NP [address] [place] [address] PCP - Juda Commercial 05/28/23 Tori Martinez NP [address] [place] [address] Nurse Practitioner Family Medicine 09/24/22 Sofie Gr BEHAVIORAL INSTRUCTOR [address] [place] [phone] Nurse Practitioner Pulmonary Disease 04/14/23 Photolith Operator Relationship Specialty Start Date End Date Carlos Alberto Coleman MD [address] [place] [address] PCP - General Family Medicine 09/24/22 Tori Martinez NP [address] [place] [address] PCP - Juda Commercial 05/28/23 Tori Martinez BEHAVIORAL INSTRUCTOR [address] [place] [address] Nurse Practitioner Family Medicine 09/24/22 Sofie Gr BEHAVIORAL INSTRUCTOR [address] [place] [phone] Nurse Practitioner Pulmonary Disease 04/14/23 Photolith Operator Relationship Specialty Start Date End Date Carlos Alberto Coleman MD [address] [place] [address] PCP - General Family Medicine 09/24/22 Tori Martinez BEHAVIORAL INSTRUCTOR [address] [place] [address] PCP - Juda [employer] 05/28/23 Tori Martinez NP [address] [place] [address] Nurse Practitioner Family Medicine 09/24/22 Sofie Gr BEHAVIORAL INSTRUCTOR [address] [place] [address] Nurse Practitioner Pulmonary Disease 04/14/23 Photolith Operator Relationship Specialty Start Date End Date Carlos Alberto Coleman MD [address] [place] [address] PCP - General Family Medicine 09/24/22 Tori Martinez BEHAVIORAL INSTRUCTOR [address] [place] [address] PCP - Juda Commercial 05/28/23 Tori Martinez BEHAVIORAL INSTRUCTOR [address] [place] [address] Nurse Practitioner Family Medicine 09/24/22 Sofie Gr BEHAVIORAL INSTRUCTOR [address] [place] [address] Nurse Practitioner Pulmonary Disease 04/14/23 Photolith Operator Relationship Specialty Start Date End Date Carlos Alberto Coleman MD [address] [place] [address] PCP - General Family Medicine 09/24/22 Tori Martinez NP [address] [place] [address] PCP - Juda Commercial 05/28/23 Tori Martinez NP [address] [place] [address] Nurse Practitioner Family Medicine 09/24/22 Sofie Gr NP [address] [place] [address] Nurse Practitioner Pulmonary Disease 04/14/23 Photolith Operator Relationship Specialty Start Date End Date Carlos Alberto Coleman MD [address] [place] [address] PCP - General Family Medicine 09/24/22 Tori Martinez NP [address] [place] [address] PCP - Juda Commercial 05/28/23 Tori Martinez NP [address] [place] [address] Nurse Practitioner Family Medicine 09/24/22 Sofie Gr NP [address] [place] [address] Nurse Practitioner Pulmonary Disease 04/14/23 Photolith Operator Relationship Specialty Start Date End Date Carlos Alberto Coleman MD [address] [place] [address] PCP - General Family Medicine 09/24/22 Tori Martinez NP [address] [place] [phone] PCP - Juda Commercial 05/28/23 Tori Martinez NP [address] [place] [address] Nurse Practitioner Family Medicine 09/24/22 Sofie Gr NP [address] [place] [address] Nurse Practitioner Pulmonary Disease 04/14/23 Photolith Operator Relationship Specialty Start Date End Date Carlos Alberto Coleman MD [address] [place] [phone] PCP - General Family Medicine 09/24/22 Tori Martinez, HERRERA [address] [place] [phone] PCP - Juda Commercial 05/28/23 Tori Martinez, HERRERA [address] [place] [address] Nurse Practitioner Family Medicine 09/24/22 Sofie Gr NP [address] [place] [address] Nurse Practitioner Pulmonary Disease 04/14/23 Photolith Operator Relationship Specialty Start Date End Date Carlos Alberto Coleman MD [address] [place] [address] PCP - General Family Medicine 09/24/22 Tori Martinez, BEHAVIORAL INSTRUCTOR [address] [place] [address] PCP - Juda Commercial 05/28/23 Tori Martinez, BEHAVIORAL INSTRUCTOR [address] [place] [address] Nurse Practitioner Family Medicine 09/24/22 Sofie Gr, BEHAVIORAL INSTRUCTOR [address] [place] [address] Nurse Practitioner Pulmonary Disease 04/14/23 Photolith Operator Relationship Specialty Start Date End Date Carlos Alberto Coleman MD [address] [place] [address] PCP - General Family Medicine 09/24/22 Tori Martinez, BEHAVIORAL INSTRUCTOR [address] [place] [phone] PCP - Juda Commercial 05/28/23 Tori Martinez, BEHAVIORAL INSTRUCTOR [address] [place] [address] Nurse Practitioner Family Medicine 09/24/22 Sofie Gr, BEHAVIORAL INSTRUCTOR [address] [place] [address] Nurse Practitioner Pulmonary Disease 04/14/23 Photolith Operator Relationship Specialty Start Date End Date Carlos Alberto Coleman MD [address] [place] [address] PCP - General Family Medicine 09/24/22 Tori Martinez BEHAVIORAL INSTRUCTOR [address] [place] [address] PCP - Juda Commercial 05/28/23 Tori Martinez NP [address] [place] [address] Nurse Practitioner Family Medicine 09/24/22 Sofie Gr NP [address] [place] [phone] Nurse Practitioner Pulmonary Disease 04/14/23 Photolith Operator Relationship Specialty Start Date End Date Carlos Alberto Coleman MD [address] [place] [address] PCP - General Family Medicine 09/24/22 Tori Martinez NP [address] [place] [address] PCP - Juda Commercial 05/28/23 Tori Martinez NP [address] [place] [address] Nurse Practitioner Family Medicine 09/24/22 Sofie Gr NP [address] [place] [address] Nurse Practitioner Pulmonary Disease 04/14/23 Photolith Operator Relationship Specialty Start Date End Date Carlos Alberto Coleman MD [address] [place] [address] PCP - General Family Medicine 09/24/22 Tori Martinez NP [address] [place] [address] PCP - Juda Commercial 05/28/23 Tori Martinez NP [address] [place] [address] Nurse Practitioner Family Medicine 09/24/22 Sofie Gr NP [address] [place] [phone] Nurse Practitioner Pulmonary Disease 04/14/23 Photolith Operator Relationship Specialty Start Date End Date Carlos Alberto Coleman MD [address] [place] [address] PCP - General Family Medicine 09/24/22 Tori Martinez NP [address] [place] [address] PCP - Juda Commercial 05/28/23 Tori Martinez NP [address] [place] [address] Nurse Practitioner Family Medicine 09/24/22 Sofie Gr NP [address] [place] [address] Nurse Practitioner Pulmonary Disease 04/14/23 Photolith Operator Relationship Specialty Start Date End Date Carlos Alberto Coleman MD [address] [place] [address] PCP - General Family Medicine 09/24/22 Tori Martinez NP [address] [place] [address] PCP - Juda Commercial 05/28/23 Tori Martinez NP [address] [place] [address] Nurse Practitioner Family Medicine 09/24/22 Sofie Gr NP [address] [place] [address] Nurse Practitioner Pulmonary Disease 04/14/23 Goals (unrecognized [...] BE BASED ON THE PRIMARY CLINICAL RECORDS. [facility] [employer] provides no warranty or guarantee of the accuracy or completeness of information in this document.
--- NOTE | 2024-06-06 18:53 | US_ITS ---
[address] [address] Patient Name: JULIÁN JIMENEZ MRN: [facility]:[id number] date: 1995 Sex: F Assigned Patient Location: [facility] Current Patient Location: Accession/Order Number: [id number] Exam Date: 06/06/2024 19:03 Report Date: 06/07/2024 06:18 At the request of: LACY AVILES Procedure: US OB BPP w non-stress EXAMINATION: US OB BPP w non-stress HISTORY:GESTATIONAL DIABETES MELLITUS O24.419 COMPARISON: Ultrasound OB biophysical 05/30/2024 TECHNIQUE: Ultrasound biophysical profile was performed in the radiology department. BREATHING MOVEMENTS: 2 GROSS BODY MOVEMENTS: 2 TONE: 2 QUALITATIVE AMNIOTIC FLUID VOLUME: 2 PRESENTATION: CEPHALIC HEART RATE: 150.84 bpm AMNIOTIC FLUID VOLUME: 16.16 cm GESTATIONAL AGE: 256 Day US/US OB BPP w non-stress IMPRESSION: 1. Total biophysical profile score: 8 Electronically authenticated by: YAAKOV TERAN Date: 06/07/2024 06:18
--- NOTE | 2024-06-06 18:54 | US_ITS ---
[address] [address] Patient Name: JULIÁN JIMENEZ MRN: [id number] date: 1995 Sex: F Assigned Patient Location: [facility] Current Patient Location: US Accession/Order Number: [id number] Exam Date: 06/06/2024 19:03 Report Date: 06/07/2024 06:20 At the request of: LACY AVILES Procedure: US OB growth EXAMINATION: US OB growth HISTORY: HYPOTHYROIDISM E03.9 COMPARISON: Ultrasound OB growth 05/09/2024 FINDINGS: Heart Rate: 150.84 bpm Amniotic Fluid Volume: 16.2 cm; normal range Number: 1 Position: CEPHALIC BIOMETRY: BPD: 8.68 cm; 35 weeks 0 days; 19.90 % HC: 32.99 cm; 37 weeks 4 days; 45.30 % AC: 33.24 cm; 37 weeks 1 day; 77.50 % FL: 6.95 cm; 35 weeks 5 days; 23.80 % EFW: 2974.95 g; 54.10 % FL/AC: 20.89 FL/BPD: 80.04 HC/AC: 0.99 GESTATIONAL AGE: Age by EDC: 36 weeks 4 days SERENA by EDC: 2024-06-30 Age by US: 36 weeks 3 days SERENA by US: 2024-07-01 US/US OB growth IMPRESSION: 1. Single live intrauterine with growth detailed above. Electronically authenticated by: YAAKOV TERAN Date: 06/07/2024 06:20
[2024-06-06 19:39] VITALS: BP 116/69; PULSE 70
== END 2024-06-06 21:20 | disposition home or self-care (01) ==
LOC: US 01:29 → FBC 18:49
PROVIDERS: PCP Family Medicine; Visit Provider Obstetrics & Gynecology
DX: O24.419 Gestational diabetes mellitus in pregnancy, unspecified control (principal); O99.283 Endocrine, nutritional and metabolic diseases complicating pregnancy, third trimester; E03.9 Hypothyroidism, unspecified; Z3A.36 36 weeks gestation of pregnancy
CPT/HCPCS: 76816; 76818

== ENCOUNTER 2024-06-09 08:37 | Outpatient (OUT) | payer BC, MEDICAID, SELFPAY ==
[2024-06-09 08:59] VITALS: BP 108/72; PULSE 78
[2024-06-09 09:01] VITALS: BP 117/75; PULSE 73
== END 2024-06-09 09:41 | disposition home or self-care (01) ==
LOC: FBCO 08:39 → FBC 08:50
PROVIDERS: PCP Family Medicine; Visit Provider Obstetrics & Gynecology
DX: O99.283 Endocrine, nutritional and metabolic diseases complicating pregnancy, third trimester (principal)
CPT/HCPCS: 59025

== ENCOUNTER 2024-06-13 01:11 | Outpatient (OUT) | payer BC, MEDICAID, SELFPAY ==
--- OUTSIDE RECORDS SUMMARY | 2024-06-13 01:16 | XMS_ITS | CCD ---
Author Organization [facility] Care Team Providers Care Reports Developer Name Role Phone RENEE, MODE R Referring [...] ÁNGEL Attending Unavailable KIEPERT, ÁNGEL Admitting Unavailable [place], DR DEANNA Lance Consulting Unavailable PAY ., [...] Unavailable KARAMLOUJAZ Consulting Unavailable KARASIK ., DR ZADLIVAR Procedure Practitioner Saida vailable MISC, DR OLSON [...] Alberto Coleman MD Primary Care Provider Kylee BLASTING CLAY MINER, Tori Unavailable Maile BLASTING CLAY MINER, Sofie R Unavailable MD Carlos Alberto Coleman Primary Care Provider HEATHER Larkin Attending Provider Maile BLASTING CLAY MINER, Sofie R Unavailable Kylee BLASTING CLAY MINER, Tori Unavailable Sofie Larkin Attending Unavailable Maile, Sofie Charles Admitting Unavailable Carlos Alberto Coleman Primary Care Unavailable NNAMDI, HERBER Attending Unavailable NNAMDI, HERBER Attending Unavailable DWIGHT, TORI Attending Unavailable LAUSE, SOFIE R Attending Unavailable WARCHOL, TORI Attending Unavailable WARCHOL, [...] Allergy 04-04-[address] [facility] Repository (2 sources) Ciprofloxacin Drug Allergy 04-03-[address] [facility] Repository (2 sources) Doxycycline Drug Allergy 05-20-19 [address] [facility] Repository (1 source) Flupenthixol Drug Allergy 04-04-[address] [facility] Repository (20 sources) Cefuroxime Drug Allergy 05-20-19 21 Rash [facility] (20 sources) Ciprofloxacin Drug Allergy 09-02-19 23 Shortness of breath [facility] (20 sources) Ciprofloxacin Drug Allergy 09-02-19 23 Shortness of breath [facility] (20 sources) cloNIDine Drug Allergy 03-14-20 21 [facility] (20 sources) cloNIDine Drug Allergy 09-02-19 23 [facility] (20 sources) Doxycycline Drug Allergy 05-20-19 21 GI intolerance [facility] (20 sources) Gluten Propensity to adverse reactions 11-11-19 19 [facility] (20 sources) Lactose (non-medical use) Allergy to substance 09-02-19 23 [facility] (20 sources) Lactose (non-medical use) Drug Intolerance 11-11-19 19 [facility] (20 sources) Octacosanol Drug Intolerance 11-11-19 19 [facility] (20 sources) Other Allergy to substance 11-11-19 19 [facility] (20 sources) Silver Allergy to substance 09-02-19 23 [facility] (20 sources) Wound Dressing Adhesive Drug Allergy 09-02-19 23 [facility] (1 source) Cefuroxime Drug Allergy 05-20-19 [facility] Repository (1 source) Ciprofloxacin Drug Allergy 05-20-19 [facility] Repository (1 source) Doxycycline Drug Allergy 05-20-19 [facility] Repository Medications Current Medications Medication Drug Class(es) Dates Sig (Normalized) Sig (Original) aspirin 81 mg delayed release oral tablet (12 sources) Platelet Aggregation Inhibitor, Nonsteroidal Anti-inflammatory Drug [...] 90 tablet 1 04/16/2023 10/13/2023 Active Magnesium (20 sources) take 1 capsule by mouth once [...] 10/13/2023 Active ondansetron 4 mg oral tablet (20 sources) Serotonin-3 Receptor Antagonist Start: 04-13-2024 take [...] Drug Class(es) Dates Sig (Normalized) Sig (Original) [id number] 200 actuat albuterol 0.09 mg/actuat metered dose [...] NAPROXEN SODIUM PO Take 2 tablets by konstatnin th Daily as needed. Active take 2 [...] of ] 04-13-2024 Episodic Residual codes; unclassified (20 sources) Gestation period, 30 weeks; Translations: [30 weeks gestation of ] Onset: 04-21-2024 04-21-2024 Episodic Residual codes; unclassified (2 sources) Gestation period, 32 weeks; Translations: [32 weeks gestation of ] 05-09-2024 Episodic Residual codes; unclassified (2 sources) Gestation period, 34 weeks; Translations: [34 weeks gestation of ] 05-25-2024 Episodic Residual codes; unclassified (2 sources) Gestation period, 36 weeks; Translations: [36 weeks gestation of ] 06-06-2024 Episodic Residual codes; unclassified (2 sources) Gestation period, 35 weeks; Translations: [35 weeks gestation of ] 05-30-2024 Episodic Thyroid disorders (20 sources) Hypothyroidism, unspecified; [...] Range Facility OB BPP W NON-STRESS on 06-07-2024 [place] [address] Ultrasound Report Signed Patient: CECELIA JOHNSON MR#: [id number] : 1995 Acct:[id number] Age/Sex: 28 / F ADM Date: 06/06/24 Loc: US Attending Dr: Herber Coto D.O. Ordering Physician: Herber Coto D.O. Date of Service: 06/06/24 Procedure(s): US OB BPP w non-stress Accession Number(s): [id number] cc: CARLOS ALBERTO COLEMAN ; Herber Coto D.O. [place] [address] Patient Name: CECELIA JOHNSON MRN: [facility]:[id number] date: 1995 Sex: F Assigned Patient Location: [facility] Current Patient Location: Accession/Order Number: [id number] Exam Date: 06/06/2024 19:03 Report Date: 06/07/2024 06:18 At the request of: HERBER COTO Procedure: US OB BPP w non-stress EXAMINATION: US OB BPP w non-stress HISTORY:GESTATIONAL DIABETES MELLITUS O24.419 COMPARISON: Ultrasound OB biophysical 05/30/2024 TECHNIQUE: Ultrasound biophysical profile was performed in the radiology department. BREATHING MOVEMENTS: 2 GROSS BODY MOVEMENTS: 2 TONE: 2 QUALITATIVE AMNIOTIC FLUID VOLUME: 2 PRESENTATION: CEPHALIC HEART RATE: 150.84 bpm AMNIOTIC FLUID VOLUME: 16.16 cm GESTATIONAL AGE: 89 Day US/US OB BPP w non-stress IMPRESSION: 1. Total biophysical profile score: 8 Electronically authenticated by: YAAKOV TERAN Date: 06/07/2024 06:18 Dictated By: Yaakov Teran M.D. Signed By: 06/07/24620 DD/ 7 TD/TT: Sheriff'S Detective: [facility] Radiology, Radiologist, MD - 06/07/2024 [place] [address] Ultrasound Report Signed Patient: CECELIA JOHNSON MR#: [id number] : 1995 Acct:[id number] Age/Sex: 28 / F ADM Date: 06/06/24 Loc: US Attending Dr: Herber Coto D.O. Ordering Physician: Herber Coto D.O. Date of Service: 06/06/24 Procedure(s): US OB BPP w non-stress Accession Number(s): [id number] cc: CARLOS ALBERTO COLEMAN ; Herber Coto D.O. [place] [address] Patient Name: CECELIA JOHNSON MRN: [facility]:[id number] date: 1995 Sex: F Assigned Patient Location: [facility] Current Patient Location: Accession/Order Number: [id number] Exam Date: 06/06/2024 19:03 Report Date: 06/07/2024 06:18 At the request of: HERBER COTO Procedure: US OB BPP w non-stress EXAMINATION: US OB BPP w non-stress HISTORY:GESTATIONAL DIABETES MELLITUS O24.419 COMPARISON: Ultrasound OB biophysical 05/30/2024 TECHNIQUE: Ultrasound biophysical profile was performed in the radiology department. BREATHING MOVEMENTS: 2 GROSS BODY MOVEMENTS: 2 TONE: 2 QUALITATIVE AMNIOTIC FLUID VOLUME: 2 PRESENTATION: CEPHALIC HEART RATE: 150.84 bpm AMNIOTIC FLUID VOLUME: 16.16 cm GESTATIONAL AGE: 89 Day US/US OB BPP w non-stress IMPRESSION: 1. Total biophysical profile score: 8 Electronically authenticated by: YAAKOV TERAN Date: 06/07/2024 06:18 Dictated By: Yaakov Teran M.D. Signed By: 06/07/24620 DD/ 7 TD/TT: Sheriff'S Detective: [facility] Radiology Study observation (narrative) [facility] US OB BPP W NON-STRESS Ordered By: Radiologist Radiology on 06-07-2024 [facility] Work Phone: US OB GROWTHon 06-07-2024 [place] [address] Ultrasound Report Signed Patient: CECELIA JOHNSON MR#: [id number] : 1995 Acct:[id number] Age/Sex: 28 / F ADM Date: 06/06/24 Loc: US Attending Dr: Herber Coto D.O. Ordering Physician: Herber Coto D.O. Date of Service: 06/06/24 Procedure(s): US OB growth Accession Number(s): [id number] cc: CARLOS ALBERTO COLEMAN ; Herber Coto D.O. [address] [address] Patient Name: CECELIA JOHNSON MRN: [id number] date: 1995 Sex: F Assigned Patient Location: [facility] Current Patient Location: US Accession/Order Number: [id number] Exam Date: 06/06/2024 19:03 Report Date: 06/07/2024 06:20 At the request of: HERBER COTO Procedure: US OB growth EXAMINATION: US OB growth HISTORY: HYPOTHYROIDISM E03.9 COMPARISON: Ultrasound OB growth 05/09/2024 FINDINGS: Heart Rate: 150.84 bpm Amniotic Fluid Volume: 16.2 cm; normal range Number: 1 Position: CEPHALIC BIOMETRY: BPD: 8.68 cm; 35 weeks 0 days; 19.90 % HC: 32.99 cm; 37 weeks 4 days; 45.30 % AC: 33.24 cm; 37 weeks 1 day; 77.50 % FL: 6.95 cm; 35 weeks 5 days; 23.80 % EFW: 2974.95 g; 54.10 % FL/AC: 20.89 FL/BPD: 80.04 HC/AC: 0.99 GESTATIONAL AGE: Age by EDC: 36 weeks 4 days SERENA by EDC: 2024-06-30 Age by US: 36 weeks 3 days SERENA by US: 2024-07-01 US/US OB growth IMPRESSION: 1. Single live intrauterine with growth detailed above. Electronically authenticated by: YAAKOV TERAN Date: 06/07/2024 06:20 Dictated By: Yaakov Teran M.D. Signed By: 06/07/24622 DD/ 9 TD/TT: Sheriff'S Detective: [facility] Radiology, Radiologist, MD - 06/07/2024 [place] [address] Ultrasound Report Signed Patient: CECELIA JOHNSON MR#: [id number] : 1995 Acct:[id number] Age/Sex: 28 / F ADM Date: 06/06/24 Loc: US Attending Dr: Herber Coto D.O. Ordering Physician: Herber Ctoo D.O. Date of Service: 06/06/24 Procedure(s): US OB growth Accession Number(s): [id number] cc: CARLOS ALBERTO COLEMAN ; Herber Coto D.O. [place] [id number] Patient Name: CECELIA JOHNSON MRN: [id number] date: 1995 Sex: F Assigned Patient Location: [facility] Current Patient Location: US Accession/Order Number: [id number] Exam Date: 06/06/2024 19:03 Report Date: 06/07/2024 06:20 At the request of: HERBER COTO Procedure: US OB growth EXAMINATION: US OB growth HISTORY: HYPOTHYROIDISM E03.9 COMPARISON: Ultrasound OB growth 05/09/2024 FINDINGS: Heart Rate: 150.84 bpm Amniotic Fluid Volume: 16.2 cm; normal range Number: 1 Position: CEPHALIC BIOMETRY: BPD: 8.68 cm; 35 weeks 0 days; 19.90 % HC: 32.99 cm; 37 weeks 4 days; 45.30 % AC: 33.24 cm; 37 weeks 1 day; 77.50 % FL: 6.95 cm; 35 weeks 5 days; 23.80 % EFW: 2974.95 g; 54.10 % FL/AC: 20.89 FL/BPD: 80.04 HC/AC: 0.99 GESTATIONAL AGE: Age by EDC: 36 weeks 4 days SERENA by EDC: 2024-06-30 Age by US: 36 weeks 3 days SERENA by US: 2024-07-01 US/US OB growth IMPRESSION: 1. Single live intrauterine with growth detailed above. Electronically authenticated by: YAAKOV TERAN Date: 06/07/2024 06:20 Dictated By: Yaakov Teran M.D. Signed By: 06/07/24622 DD/ 9 TD/TT: Sheriff'S Detective: [facility] Radiology Study observation (narrative) [facility] OB GROWTHOrdered By: Aaron ologfrieda Radiology on 06-07-2024 [facility] Work Phone: Urinalysis macro (dipstick) panel (U)on 06-06-2024 Bilirubin, UA Negative Negative - 4(70) +++ mg/dL [facility] Blood, UA Negative Negative - 50 Mendel/mcL [facility] Clarity, UA Clear [facility] Color, UA Yellow [facility] Glucose, UA Negative Negative - 2000(110) ++++ mg/dL [facility] Interpretation and review of laboratory results Normal [facility] Ketones, UA Negative Negative - 160(16) ++++ mg/dL [facility] Leukocytes, UA Trace Negative - 500+++ Leighann/mcL [facility] Nitrite, UA Negative Negative - Positive [facility] pH, UA 5.5 5 - 9 [facility] Protein, UA Negative Negative - 2000(20) ++++ mg/dL [facility] Spec Grav, UA 1.02 1 - 1.03 [facility] Urobilinogen, UA 0.2 0.2 - 12 mg/dL [facility] US OB BPP W NON-STRESS on 05-31-2024 [place] [address] Ultrasound Report Signed Patient: CECELIA JOHNSON MR#: [id number] : 1995 Acct:[id number] Age/Sex: 28 / F ADM Date: 05/30/24 Loc: US Attending Dr: Herber Coto D.O. Ordering Physician: Herber Coto D.O. Date of Service: 05/30/24 Procedure(s): US OB BPP w non-stress Accession Number(s): [id number] cc: CARLOS ALBERTO COLEMAN ; Herber Coto D.O. [place] [id number] Patient Name: CECELIA JOHNSON MRN: [id number] date: 1995 Sex: F Assigned Patient Location: [facility] Current Patient Location: US Accession/Order Number: [id number] Exam Date: 05/30/2024 17:24 Report Date: 05/31/2024 [...] profile score: 8 Electronically authenticated by: YAAKOV TERAN Date: 05/31/2024 09:14 Dictated By: Yaakov Teran M.D. Signed By: 05/31/24916 DD/ 3 TD/TT: Sheriff'S Detective: [facility] Radiology, Radiologist, MD - 05/31/2024 [place] [address] Ultrasound Report Signed Patient: CECELIA JOHNSON MR#: [id number] : 1995 Acct:[id number] Age/Sex: 28 / F ADM Date: 05/30/24 Loc: US Attending Dr: Herber Coto D.O. Ordering Physician: Herber Coto D.O. Date of Service: 05/30/24 Procedure(s): US OB BPP w non-stress Accession Number(s): [id number] cc: CARLOS ALBERTO COLEMAN ; Herber Coto D.O. [place] [id number] Patient Name: CECELIA JOHNSON MRN: [facility]:[id number] date: 1995 Sex: F Assigned Patient Location: [facility] Current Patient Location: US Accession/Order Number: [id number] Exam Date: 05/30/2024 17:24 Report Date: 05/31/2024 [...] profile score: 8 Electronically authenticated by: YAAKOV TERAN Date: 05/31/2024 09:14 Dictated By: Yaakov Teran M.D. Signed By: 05/31/24916 DD/ 3 TD/TT: Sheriff'S Detective: [facility] Radiology Study observation (narrative) [facility] US OB BPP W NON-STRESS Ordered By: Radiologist Radiology on 05-31-2024 [facility] Work Phone: ALL THYROID STIM HORMONEon 0 05-30-2024 TSH Qn 1.826 m[IU]/L [facility] Urinalysis macro (dipstick) panel (U)Ordered By: Lillie Azul on 05-30-2024 Bilirubin, UA Negative Negative - 4(70) +++ mg/dL [facility] Blood, UA Negative Negative - 50 Mendel/mcL [facility] Clarity, UA Clear [facility] Color, UA Yellow [facility] Glucose, UA Negative Negative - 1999(110) ++++ mg/dL [facility] Interpretation and review of laboratory results Normal [facility] Ketones, UA Positive Negative - 160(16) ++++ mg/dL [facility] Leukocytes, UA Negative Negative - 500+++ Leighann/mcL [facility] Nitrite, UA Negative Negative - Positive [facility] pH, UA 6 5 - 9 [facility] Protein, UA Trace Negative - 2000(20) ++++ mg/dL [facility] Spec Grav, UA 1.03 1 - 1.03 [facility] Urobilinogen, UA 1.0 0.2 - 12 mg/dL [facility] Urinalysis macro (dipstick) panel (U)on 05-25-2024 Bilirubin, UA Negative Negative - 4(70) +++ mg/dL [facility] Blood, UA Negative Negative - 50 Mendel/mcL [facility] Clarity, UA Clear [facility] Color, UA Yellow [facility] Glucose, UA Negative Negative - 1999(110) ++++ mg/dL [facility] Interpretation and review of laboratory results Abnormal [facility] Ketones, UA Positive Negative - 160(16) ++++ mg/dL [facility] Comment on above: trace Leukocytes, UA Positive Negative - 500+++ Leighann/mcL [facility] Comment on above: small Nitrite, UA Negative Negative - Positive [facility] pH, UA 6 5 - 9 [facility] Protein, UA Trace Negative - 1999(20) ++++ mg/dL [facility] Spec Grav, UA 1.03 1 - 1.03 [facility] Urobilinogen, UA 1.0 0.2 - 12 mg/dL [facility] US OB BPP W NON-STRESS on 05-24-2024 [place] [address] Ultrasound Report Signed Patient: CECELIA JOHNSON MR#: [id number] : 1995 Acct:[id number] Age/Sex: 28 / F ADM Date: 05/23/24 Loc: US Attending Dr: Herber Coto D.O. Ordering Physician: Herber Coto D.O. Date of Service: 05/23/24 Procedure(s): US OB BPP w non-stress Accession Number(s): [id number] cc: CARLOS ALBERTO COLEMAN ; Herber Coto D.O. [address] [address] Patient Name: CECELIA JOHNSON MRN: [facility]:[id number] date: 1995 Sex: F Assigned Patient Location: [facility] Current Patient Location: Accession/Order Number: [id number] Exam Date: 05/23/2024 19:13 Report Date: 05/24/2024 [...] the 95th percentile. Electronically authenticated by: YAAKOV TERAN Date: 05/24/2024 04:23 Dictated By: Yaakov Teran M.D. Signed By: 05/24/24426 DD/ 2 TD/TT: Sheriff'S Detective: [facility] Radiology, Radiologist, MD - 05/24/2024 [place] [address] Ultrasound Report Signed Patient: CECELIA JOHNSON MR#: [id number] : 1995 Acct:[id number] Age/Sex: 28 / F ADM Date: 05/23/24 Loc: US Attending Dr: Herber Coto D.O. Ordering Physician: Herber Coto D.O. Date of Service: 05/23/24 Procedure(s): US OB BPP w non-stress Accession Number(s): [id number] cc: CARLOS ALBERTO COLEMAN ; Herber Coto D.O. [place] [id number] Patient Name: CECELIA JOHNSON MRN: [facility]:[id number] date: 1995 Sex: F Assigned Patient Location: [facility] Current Patient Location: Accession/Order Number: [id number] Exam Date: 05/23/2024 19:13 Report Date: 05/24/2024 [...] the 95th percentile. Electronically authenticated by: YAAKOV TERAN Date: 05/24/2024 04:23 Dictated By: Yaakov Teran M.D. Signed By: 05/24/24426 DD/ 2 TD/TT: Sheriff'S Detective: [facility] Radiology Study observation (narrative) [facility] US OB BPP W NON-STRESS Ordered By: Radiologist Radiology on 05-24-2024 [facility] Work Phone: Urinalysis macro (dipstick) panel (U)on 05-09-2024 Bilirubin, UA Negative Negative - 4(70) +++ mg/dL [facility] Blood, UA Negative Negative - 50 Mendel/mcL [facility] Clarity, UA Clear [facility] Color, UA Yellow [facility] Glucose, UA Negative Negative - 1999(110) ++++ mg/dL [facility] Interpretation and review of laboratory results Abnormal [facility] Ketones, UA Negative Negative - 160(16) ++++ mg/dL [facility] Leukocytes, UA Positive Negative - 500+++ Leighann/mcL [facility] Comment on above: small Nitrite, UA Negative Negative - Positive [facility] pH, UA 6 5 - 9 [facility] Protein, UA Negative Negative - 1999(20) ++++ mg/dL [facility] Spec Grav, UA 1.03 1 - 1.03 [facility] Urobilinogen, UA 1.0 0.2 - 12 mg/dL [facility] Urinalysis macro (dipstick) panel (U)on 04-21-2024 Bilirubin, UA Negative Negative - 4(70) +++ mg/dL [facility] Blood, UA Negative Negative - 50 Mendel/mcL [facility] Clarity, UA Clear [facility] Color, UA Light Yellow [facility] Glucose, UA Negative Negative - 2000(110) ++++ mg/dL [facility] Interpretation and review of laboratory results Normal [facility] Ketones, UA Negative Negative - 160(16) ++++ mg/dL [facility] Leukocytes, UA Few Negative - 500+++ Leighann/mcL [facility] Nitrite, UA Negative Negative - Positive [facility] pH, UA 5.5 5 - 9 [facility] Protein, UA Trace Negative - 1999(20) ++++ mg/dL [facility] Spec Grav, UA 1.03 1 - 1.03 [facility] Urobilinogen, UA 0.2 0.2 - 12 mg/dL [facility] Urinalysis macro (dipstick) panel (U)on 04-13-2024 Bilirubin, UA Negative Negative - 4(70) +++ mg/dL [facility] Blood, UA Negative Negative - 50 Mendel/mcL [facility] Clarity, UA Clear [facility] Color, UA Yellow [facility] Glucose, UA Negative Negative - 1999(110) ++++ mg/dL [facility] Interpretation and review of laboratory results Normal [facility] Ketones, UA Negative Negative - 160(16) ++++ mg/dL [facility] Leukocytes, UA Negative Negative - 500+++ Leighann/mcL [facility] Nitrite, UA Negative Negative - Positive [facility] pH, UA 5.5 5 - 9 [facility] Protein, UA Negative Negative - 1999(20) ++++ mg/dL [facility] Spec Grav, UA 1.03 1 - 1.03 [facility] Urobilinogen, UA 0.2 0.2 - 12 mg/dL [facility] Urinalysis macro (dipstick) panel (U)on 04-06-2024 Bilirubin, UA Negative Negative - 4(70) +++ mg/dL [facility] Blood, UA Negative Negative - 50 Mendel/mcL [facility] Clarity, UA Clear [facility] Color, UA Yellow [facility] Glucose, UA Negative Negative - 1999(110) ++++ mg/dL [facility] Interpretation and review of laboratory results Normal [facility] Ketones, UA Negative Negative - 160(16) ++++ mg/dL [facility] Leukocytes, UA Negative Negative - 500+++ Leighann/mcL [facility] Nitrite, UA Negative Negative - Positive [facility] pH, UA 6 5 - 9 [facility] Protein, UA Negative Negative - 1999(20) ++++ mg/dL [facility] Spec Grav, UA 1.015 1 - 1.03 [facility] Urobilinogen, UA 0.2 0.2 - 12 mg/dL [facility] ALL CBC WITH AUTO DIFFon BASOPHILS ABSOLUTE AUTO 0 [facility] Basophils/100 WBC (Bld) 0.2 % 0.2 - 2.0 % [facility] Eosinophils/100 WBC (Bld) 0.7 % Low 0.9 - 7.0 % [facility] Erythrocyte distribution width (RBC) [Ratio] 12.3 % 11.0 - 15.0 % [facility] Hematocrit (Bld) [Volume fraction] 35.3 % Low 36.0 - 48.0 % [facility] Hemoglobin (Bld) [Mass/Vol] 11.8 g/dL Low 12.0 - 16.0 g/dL [facility] IMMATURE GRANULOCYTES ABS AUTO 0.04 High [facility] Immature granulocytes/100 WBC (Bld) 0.5 % 0.0 - 0.5 % [facility] Interpretation and review of laboratory results Abnormal [facility] LYMPHOCYTES ABSOLUTE AUTO 1.5 [facility] Lymphocytes/100 WBC (Bld) 17.1 % Low 20.5 - 60.0 % [facility] MCH (RBC) [Entitic mass] 31.1 pg 26.7 - 34.0 pg [facility] MCHC (RBC) [Mass/Vol] 33.4 g/dL 29.9 - 35.2 g/dL [facility] MCV (RBC) [Entitic vol] 93.1 fL 81.0 - 99.0 fL [facility] MONOCYTES ABSOLUTE AUTO 0.6 [facility] Monocytes/100 WBC (Bld) 7.2 % 1.7 - 12.0 % [facility] NEUTROPHILS ABSOLUTE AUTO 6.5 [facility] Neutrophils/100 WBC (Bld) 74.3 % 43.0 - 75.0 % [facility] Platelet mean volume (Bld) [Entitic vol] 10.6 fL 9.5 - 13.5 fL [facility] TBH EO # 0.1 [facility] TB PLT 178 [facility] RBC 3.79 Low [facility] WBC 8.8 [facility] IGP,APTIMA HPV,AGE GDLNon AGE GDLN ACOG TESTING Note . [facility] Comment on above: TESTS RESULT FLAG UN ITS REF RANGE LAB Clinician Provided Cytology Information Source.............Cervix No. of containers..01 ThinPrep Vial Age Teri ARMSTRNOG Sonja... 28 FLAG LEGEND: L-Low Normal,H-High Normal,LL-Alert Low,HH-Alert High <-Panic Low,>-Panic High,A-Abnormal,AA-Critical Abnormal Performed at: 01 =G [address] [place] [address] Radha Browne MD, HPV APTIMA Negative Negative [facility] Comment on above: This nucleic acid am plification test detects fourteen high- risk HPV types (16,18,31,33,35,39,45,51,52,56,58,59,66,68) without differentiation. Performed at: =G - [address] [id number] Bed Machine Operator: Radha Browne MD, Phone: [phone] Performed at: - [address] [id number] Bed Machine Operator: Radha Browne MD, Phone: [phone] IGP, APTIMA HPV, RFX 16/18,45 Note . [facility] Comment on above: TESTS RESULT FLAG UN ITS REF RANGE LAB DIAGNOSIS: 02 NEGATIVE FOR INTRAEPITHELIAL LESION OR MALIGNANCY. Specimen adequacy: 02 Satisfactory for evaluation. No endocervical component is identified. Performed by: 02 Danie Vargas, Driver Retraining Instructor ([facility]) . 02 Note: Note 02 The [...] <-Panic Low,>-Panic High,A-Abnormal,AA-Critical Abnormal Performed at: [address] [id number] Radha Browne MD, [facility] Cytology Cervical or vaginal smear or scraping studyon 02-10-2024 [facility] Urinalysis macro (dipstick) panel (U)on 02-10-2024 Bilirubin, UA Negative Negative - 4(70) +++ mg/dL [facility] Blood, UA Negative Negative - 50 Mendel/mcL [facility] Clarity, UA Clear [facility] Color, UA Yellow [facility] Glucose, UA Negative Negative - 2000(110) ++++ mg/dL [facility] Interpretation and review of laboratory results Abnormal [facility] Ketones, UA Negative Negative - 160(16) ++++ mg/dL [facility] Leukocytes, UA Trace Negative - 500+++ Leighann/mcL [facility] Nitrite, UA Negative Negative - Positive [facility] pH, UA 7 5 - 9 [facility] Protein, UA Negative Negative - 1999(20) ++++ mg/dL [facility] Spec Grav, UA 1.02 1 - 1.03 [facility] Urobilinogen, UA 0.2 0.2 - 12 mg/dL [facility] ALL THYROID STIM HORMONEon 0 01-22-2024 TSH Qn 1.921 m[IU]/L [facility] Urinalysis macro (dipstick) panel (U)on 01-11-2024 Bilirubin, UA Negative Negative - 4(70) +++ mg/dL [facility] Blood, UA Negative Negative - 50 Mendel/mcL [facility] Clarity, UA Clear [facility] Color, UA Yellow [facility] Glucose, UA Negative Negative - 1999(110) ++++ mg/dL [facility] Interpretation and review of laboratory results Normal [facility] Ketones, UA Negative Negative - 160(16) ++++ mg/dL [facility] Leukocytes, UA Negative Negative - 500+++ Leighann/mcL [facility] Nitrite, UA Negative Negative - Positive [facility] pH, UA 6.0 5 - 9 [facility] Protein, UA Negative Negative - 1999(20) ++++ mg/dL [facility] Spec Grav, UA 1.015 1 - 1.03 [facility] Urobilinogen, UA 0.2 0.2 - 12 mg/dL [facility] BioFire Not Detectedon 07-12 BioFire Not Detected Not detected Normal Not Detecte T krystina [facility] Comment on above: Result Comment: This is a duplicate RP2.1 COVID (PCR) result to be used for statistical tracking purpose only. PERFORMED BY: [place] [address] PATHOLOGIST HYDROGENATION OPERATOR CATY NEELY M.D. Performed By: #### R RODGER PANEL UPP., BIOFIRECOVNOTDE #### [address] COVID-19 Detected/Not Detect edOrdered By: Sofie Larkin on 07-13-2023 SARS-CoV-2 (COVID-19) RNA JUAN+non-probe Ql (Nph) Not detected Not Detecte [facility] Comment on above: This is [...] Influenza A H3 Blank Space PERFORMED BY: [facility] [address] [place] [address] PATHOLOGIST HYDROGENATION OPERATOR CATY NEELY M.D. Normal [facility] Comment on above: Performed By: #### R RODGER PANEL UPP., BIOFIRECOVNOTDE #### [facility] [address] [id number] [facility] Respiratory pathogens DNA an d RNA panel - Nasopharynx by JUAN with non-probe detectionOrdered By: Sofei Larkin on 07-13-2023 Respiratory pathogens DNA and RNA panel JUAN+non-probe (Nph) [facility] CBC AUTO DIFFon 06-25-2022 BASO # 0.0 103/ul Normal 0.0-0.1 [place] Comment on above: Performed By: #### C BC #### [facility] [address] [address] [address] Garland Kohli Basophils/100 WBC (Bld) 0.4 % Normal 0.2-2.0 [place] Comment on above: Performed By: #### C BC #### [facility] [address] [address] [address] Garland Kohli EO # 0.1 103/ul Normal 0.0-0.7 [place] Comment on above: Performed By: #### C BC #### [facility] [address] [address] [address] Garland Kohli Eosinophils/100 WBC (Bld) 0.9 % Normal 0.9-7.0 [place] Comment on above: Performed By: #### C BC #### [facility] [address] [address] [address] Garland Kohli Erythrocyte distribution width (RBC) [Ratio] 12.4 % Normal 11.0-15.0 [place] Comment on above: Performed By: #### C BC #### [facility] [address] [address] [address] Garland Kohli Hematocrit (Bld) [Volume fraction] 31.4 % Critically low 36.0-48.0 [place] Comment on above: Performed By: #### C BC #### [facility] [address] [address] [address] Garland Kohli Hemoglobin (Bld) [Mass/Vol] 10.4 g/dL Critically low 12.0-16.0 [place] Comment on above: Performed By: #### C BC #### [facility] [address] [address] [address] Garland Kohli IG # 0.04 10e3/ul Critically high 0.00-0.03 [facility] Comment on above: Performed By: #### C BC #### [facility] [address] [place] [address] Dr. Garland Kohli IG % 0.4 % Normal 0.0-0.5 [place] Comment on above: Performed By: #### C BC #### [facility] [address] [place] [address] Dr. Garland Kohli LYMPH # 2.0 103/ul Normal 1.2-3.8 [place] Comment on above: Performed By: #### C BC #### [facility] [address] [place] [address] Dr. Garland Kohli Lymphocytes/100 WBC (Bld) 22.1 % Normal 20.5-60.0 [place] Comment on above: Performed By: #### C BC #### [facility] [address] [place] [address] Dr. Garland Kohli MANUAL DIFF REQ NO Normal [facility] Comment on above: Performed By: #### C BC #### [facility] [address] [place] [address] Dr. Garland Kohli MCH (RBC) [Entitic mass] 30.1 pg Normal 26.7-34.0 [place] Comment on above: Performed By: #### C BC #### [facility] [address] [place] [address] Dr. Garland Kohli MCHC (RBC) [Mass/Vol] 33.1 g/dL Normal 29.9-35.2 [place] Comment on above: Performed By: #### C BC #### [facility] [address] [place] [address] Dr. Garland Kohli MCV (RBC) [Entitic vol] 91.0 fL Normal 81.0-99.0 [place] Comment on above: Performed By: #### C BC #### [facility] [address] [place] [address] Dr. Garland Kohli MONO # 0.8 103/ul Normal 0.3-0.8 [place] Comment on above: Performed By: #### C BC #### [facility] [address] [place] [address] Dr. Garland Kohli Monocytes/100 WBC (Bld) 8.8 % Normal 1.7-12.0 [place] Comment on above: Performed By: #### C BC #### [facility] [address] [place] [address] Dr. Garland Kohli NEUT # 6.0 103/ul Normal 1.4-6.5 [place] Comment on above: Performed By: #### C BC #### [facility] [address] [place] [address] Dr. Garland Kohli Neutrophils/100 WBC (Bld) 67.4 % Normal 43.0-75.0 [place] Comment on above: Performed By: #### C BC #### [facility] [address] [place] [address] Dr. Garland Kohli Platelet mean volume (Bld) [Entitic vol] 12.0 fL Normal 9.5-13.5 [place] Comment on above: Performed By: #### C BC #### [facility] [address] [place] [address] Dr. Garland Kohli PLT 151 103/ul Normal 150-450 [place] Comment on above: Performed By: #### C BC #### [facility] [address] [place] [address] Dr. Garland Kohli RBC 3.45 106/ul Critically low 4.20-5.40 [facility] Comment on above: Performed By: #### C BC #### [facility] [address] [place] [address] Dr. Garland Kohli WBC 8.9 103/ul Normal 4.0-11.[address] [facility] Comment on above: Performed By: #### C BC #### [facility] [address] [place] [address] Dr. Garland Kohli CBC AUTO DIFFon 06-23-2022 BASO # 0.0 103/ul Normal 0.0-0.1 [place] Comment on above: Performed By: #### C BC #### [facility] [address] [address] [address] Garland Kohli Basophils/100 WBC (Bld) 0.4 % Normal 0.2-2.0 [place] Comment on above: Performed By: #### C BC #### [facility] [address] [place] [address] Dr. Garland Kohli EO # 0.1 103/ul Normal 0.0-0.[address] [facility] Comment on above: Performed By: #### C BC #### [facility] [address] [place] [address] Dr. Garland Kohli Eosinophils/100 WBC (Bld) 0.8 % Critically low 0.9-7.0 [place] Comment on above: Performed By: #### C BC #### [facility] [address] [place] [address] Dr. Garland Kohli Erythrocyte distribution width (RBC) [Ratio] 12.4 % Normal 11.0-15.0 [place] Comment on above: Performed By: #### C BC #### [facility] [address] [place] [address] Dr. Garland Kohli Hematocrit (Bld) [Volume fraction] 34.5 % Critically low 36.0-48.0 [place] Comment on above: Performed By: #### C BC #### [facility] [address] [place] [address] Dr. Garland Kohli Hemoglobin (Bld) [Mass/Vol] 11.6 g/dL Critically low 12.0-16.0 [place] Comment on above: Performed By: #### C BC #### [facility] [address] [place] [address] Dr. Garland Kohli IG # 0.04 10e3/ul Critically high 0.00-0.03 [facility] Comment on above: Performed By: #### C BC #### [facility] [address] [place] [address] Dr. Garland Kohli IG % 0.5 % Normal 0.0-0.[address] [facility] Comment on above: Performed By: #### C BC #### [facility] [address] [address] [address] Garland Kohli LYMPH # 1.3 103/ul Normal 1.2-3.[address] [facility] Comment on above: Performed By: #### C BC #### [facility] [address] [address] [address] Garland Kohli Lymphocytes/100 WBC (Bld) 17.6 % Critically low 20.5-60.0 [place] Comment on above: Performed By: #### C BC #### [facility] [address] [place] [address] Dr. Garland Kohli MANUAL DIFF REQ NO Normal [facility] Comment on above: Performed By: #### C BC #### [facility] [address] [place] [address] Dr. Garland Kohli MCH (RBC) [Entitic mass] 29.6 pg Normal 26.7-34.0 [place] Comment on above: Performed By: #### C BC #### [facility] [address] [place] [address] Dr. Garland Kohli MCHC (RBC) [Mass/Vol] 33.6 g/dL Normal 29.9-35.[address] [facility] Comment on above: Performed By: #### C BC #### [facility] [address] [place] [address] Dr. Garland Kohli MCV (RBC) [Entitic vol] 88.0 fL Normal 81.0-99.[address] [facility] Comment on above: Performed By: #### C BC #### [facility] [address] [place] [address] Dr. Garland Kohli MONO # 0.9 103/ul Critically high 0.3-0.8 [facility] Comment on above: Performed By: #### C BC #### [facility] [address] [place] [address] Dr. Garland Kohli Monocytes/100 WBC (Bld) 11.7 % Normal 1.7-12.[address] [facility] Comment on above: Performed By: #### C BC #### [facility] [address] [place] [address] Dr. Garland Kohli NEUT # 5.1 103/ul Normal 1.4-6.[address] [facility] Comment on above: Performed By: #### C BC #### [facility] [address] [place] [address] Dr. Garland Kohli Neutrophils/100 WBC (Bld) 69.0 % Normal 43.0-75.[address] [facility] Comment on above: Performed By: #### C BC #### [facility] [address] [place] [address] Dr. Garland Kohli Platelet mean volume (Bld) [Entitic vol] 12.1 fL Normal 9.5-13.[address] [facility] Comment on above: Performed By: #### C BC #### [facility] [address] [place] [address] Dr. Garland Kohli PLT 193 103/ul Normal 150-[address] [facility] Comment on above: Performed By: #### C BC #### [facility] [address] [place] [address] Dr. Garland Kohli RBC 3.92 106/ul Critically low 4.20-5.40 The [facility] Comment on above: Performed By: #### C BC #### [facility] [address] [place] [address] Dr. Garland Kohli WBC 7.4 103/ul Normal 4.0-11.[address] [facility] Comment on above: Performed By: #### C BC #### [facility] [address] [place] [address] Dr. Garland Kohli DRUG SCREEN RAPID (URINE)on 06-23-2022 AMP Negative Normal NEGATIVE [facility] Comment on above: Performed By: #### D RUGRPD #### [facility] [address] [place] [address] Dr. Garland Kohli BAR Negative Normal NEGATIVE [facility] Comment on above: Performed By: #### D RUGRPD #### [facility] [address] [place] [address] Dr. aGrland Kohli BUP Negative Normal NEGATIVE [facility] Comment on above: Performed By: #### D RUGRPD #### [facility] [address] [place] [address] Dr. Garland Kohli BZO Negative Normal NEGATIVE [facility] Comment on above: Performed By: #### D RUGRPD #### [facility] [address] [place] [address] Dr. Garland Kohli JUANI Negative Normal NEGATIVE [facility] Comment on above: Performed By: #### D RUGRPD #### [facility] [address] [place] [address] Dr. Garland Kohli CUT-OFFS SEE BELOW Normal [place] Comment on above: Result Comment: AMP (Amphetamine): [...] #### D RUGRPD #### [facility] [address] [place] [address] Dr. Garland Kohli DRUG CUT HEADER DRUG CLASS TEST SYSTEM CUT-OFF CONCENTRATIONS ARE FOLLOWS: Normal [facility] Comment on above: Performed By: #### D RUGRPD #### [facility] [address] [place] [address] Dr. Garland Kohli mAMP Negative Normal NEGATIVE [facility] Comment on above: Performed By: #### D RUGRPD #### [facility] [address] [place] [address] Dr. Garland Kohli MTD Negative Normal NEGATIVE [facility] Comment on above: Performed By: #### D RUGRPD #### [facility] [address] [place] [address] Dr. Garland Kohli OPI Negative Normal NEGATIVE [place] Comment on above: Performed By: #### D RUGRPD #### [facility] [address] [place] [address] Dr. Garland Kohli OXY Negative Normal NEGATIVE [place] Comment on above: Performed By: #### D RUGRPD #### [facility] [address] [place] [address] Dr. Garland Kohli PCP Negative Normal NEGATIVE [place] Comment on above: Performed By: #### D RUGRPD #### [facility] [address] [place] [address] Dr. Garland Kohli PPX Negative Normal NEGATIVE [place] Comment on above: Performed By: #### D RUGRPD #### [facility] [address] [place] [address] Dr. Garland Kohli TCA Negative Normal NEGATIVE [place] Comment on above: Performed By: #### D RUGRPD #### [facility] [address] [place] [address] Dr. Garland Kohli THC Negative Normal NEGATIVE [place] Comment on above: Performed By: #### D RUGRPD #### [facility] [address] [place] [address] Dr. Garland Kohli TYPE AND SCREENon 06-23-2022 TYPE AND SCREEN Negative Normal [facility] Comment on above: Performed By: #### T NS #### [facility] [address] [place] [address] Dr. Garland Kolhi FREE T4on 06-07-2022 Free T4 [Mass/Vol] 0.76 ng/dL Normal 0.76-1.46 [facility] Comment on above: Performed By: #### C BC #### [facility] [address] [place] [address] Dr. Garland Kohli TSHon 06-07-2022 TSH 1.393 uIU/mL Normal 0.358-3.740 [facility] Comment on above: Performed By: #### T SH #### [facility] [address] [place] [address] Dr. Garland Kohli GROUP B STREP CULTUREon S. agalactiae Ag Ql (Unsp spec) Culture Observations: NEGATIVE FOR GROUP B STREPTOCOCCUS. Normal [facility] Comment on above: Performed By: #### C BC #### [facility] [address] [place] [address] Dr. Garland Kohli GTT 3 HR PREGon 04-16-2022 Glucose [Mass/Vol] 87 mg/dL Normal 74-106 [facility] Comment on above: Performed By: #### G TT3P #### [facility] [address] [place] [address] Dr. Garland Kohli Glucose [Mass/Vol] 148 mg/dL Normal [facility] Comment on above: Performed By: #### G TT3P #### [facility] [address] [place] [address] Dr. Garland Kohli Glucose [Mass/Vol] 128 mg/dL Normal [facility] Comment on above: Performed By: #### G TT3P #### [facility] [address] [place] [address] Dr. Garland Kohli Glucose [Mass/Vol] 105 mg/dL Normal [facility] Comment on above: Performed By: #### G TT3P #### [facility] [address] [place] [address] Dr. Garland Kohli CBC AUTO DIFFon 04-04-2022 BASO # 0.0 103/ul Normal 0.0-0.1 [place] Comment on above: Performed By: #### G TT3P #### [facility] [address] [place] [address] Dr. Garland Kohli Basophils/100 WBC (Bld) 0.2 % Normal 0.2-2.0 [place] Comment on above: Performed By: #### G TT3P #### [facility] [address] [place] [address] Dr. Garland Kohli EO # 0.0 103/ul Normal 0.0-0.7 [place] Comment on above: Performed By: #### G TT3P #### [facility] [address] [place] [address] Dr. Garland Kohli Eosinophils/100 WBC (Bld) 0.4 % Critically low 0.9-7.0 [place] Comment on above: Performed By: #### G TT3P #### [facility] [address] [place] [address] Dr. Garland Kohli Erythrocyte distribution width (RBC) [Ratio] 12.9 % Normal 11.0-15.0 [place] Comment on above: Performed By: #### G TT3P #### [facility] [address] [place] [address] Dr. Garland Kohli Hematocrit (Bld) [Volume fraction] 32.5 % Critically low 36.0-48.0 [place] Comment on above: Performed By: #### G TT3P #### [facility] [address] [place] [address] Dr. Garland Kohli Hemoglobin (Bld) [Mass/Vol] 11.2 g/dL Critically low 12.0-16.0 [place] Comment on above: Performed By: #### G TT3P #### [facility] [address] [place] [address] Dr. Garland Kohli IG # 0.07 10e3/ul Critically high 0.00-0.03 [facility] Comment on above: Performed By: #### G TT3P #### [facility] [address] [place] [address] Dr. Garland Kohli IG % 0.8 % Critically high 0.0-0.5 [facility] Comment on above: Performed By: #### G TT3P #### [facility] [address] [place] [address] Dr. Garland Kohli LYMPH # 0.9 103/ul Critically low 1.2-3.8 [facility] Comment on above: Performed By: #### G TT3P #### [facility] [address] [place] [address] Dr. Garland Kohli Lymphocytes/100 WBC (Bld) 10.4 % Critically low 20.5-60.0 [place] Comment on above: Performed By: #### G TT3P #### [facility] [address] [place] [address] Dr. Garland Kohli MANUAL DIFF REQ NO Normal [facility] Comment on above: Performed By: #### G TT3P #### [facility] [address] [place] [address] Dr. Garland Kohli MCH (RBC) [Entitic mass] 31.4 pg Normal 26.7-34.0 [place] Comment on above: Performed By: #### G TT3P #### [facility] [address] [place] [address] Dr. Garland Kohli MCHC (RBC) [Mass/Vol] 34.5 g/dL Normal 29.9-35.[address] [facility] Comment on above: Performed By: #### G TT3P #### [facility] [address] [place] [address] Dr. Garland Kohli MCV (RBC) [Entitic vol] 91.0 fL Normal 81.0-99.0 [place] Comment on above: Performed By: #### G TT3P #### [facility] [address] [place] [address] Dr. Garland Kohli MONO # 1.1 103/ul Critically high 0.3-0.8 The [facility] Comment on above: Performed By: #### G TT3P #### [facility] [address] [place] [address] Dr. Garland Kohli Monocytes/100 WBC (Bld) 12.5 % Critically high 1.7-12.0 [place] Comment on above: Performed By: #### G TT3P #### [facility] [address] [place] [address] Dr. Garland Kohli NEUT # 6.3 103/ul Normal 1.4-6.[address] [facility] Comment on above: Performed By: #### G TT3P #### [facility] [address] [place] [address] Dr. Garland Kohli Neutrophils/100 WBC (Bld) 75.7 % Critically high 43.0-75.[address] [facility] Comment on above: Performed By: #### G TT3P #### [facility] [address] [address] [address] Garland Kohli Platelet mean volume (Bld) [Entitic vol] 10.5 fL Normal 9.5-13.5 [place] Comment on above: Performed By: #### G TT3P #### [facility] [address] [place] [address] Dr. Garland Kohli PLT 181 103/ul Normal 150-[address] [facility] Comment on above: Performed By: #### G TT3P #### [facility] [address] [address] [address] Garland Kohli RBC 3.57 106/ul Critically low 4.20-5.40 [facility] Comment on above: Performed By: #### G TT3P #### [facility] [address] [place] [address] Dr. Garland Kohli WBC 8.4 103/ul Normal 4.0-11.[address] [facility] Comment on above: Performed By: #### G TT3P #### [facility] [address] [place] [address] Dr. Garland Kohli CTA CHEST WO W [...] LINN Date: 2022-04-04 15:25 Normal [facility] PROF CHEM 8 (BAS METB)on Anion gap [Moles/Vol] 13.2 mmol/L Normal [facility] Comment on above: Performed By: #### G TT3P #### [facility] [address] [place] [address] Dr. Garland Kohli Calcium [Mass/Vol] 8.5 mg/dL Normal 8.5-10.1 [facility] Comment on above: Performed By: #### G TT3P #### [facility] [address] [place] [address] Dr. Garland Kohli Chloride [Moles/Vol] 103 mmol/L Normal 98-107 [place] Comment on above: Performed By: #### G TT3P #### [facility] [address] [place] [address] Dr. Garland Kohli CO2 [Moles/Vol] 23.4 mmol/L Normal 21.0-32.0 [facility] Comment on above: Performed By: #### G TT3P #### [facility] [address] [place] [address] Dr. Garland Kohli Creatinine [Mass/Vol] 0.43 mg/dL Critically low 0.55-1.02 [place] Comment on above: Performed By: #### G TT3P #### [facility] [address] [place] [address] Dr. Garland Kohli EGFR-AF LUXEMBOURGER >60 Normal >=60 [facility] Comment on above: Performed By: #### G TT3P #### [facility] [address] [place] [address] Dr. Garland Kohli EGFR-NON AF LUXEMBOURGER >60 Normal >=60 [place] Comment on above: Performed By: #### G TT3P #### [facility] [address] [place] [address] Dr. Garland Kohli Glucose [Mass/Vol] 108 mg/dL Critically high 74-106 [facility] Comment on above: Performed By: #### G TT3P #### [facility] [address] [place] [address] Dr. Garland Kohli Potassium [Moles/Vol] 3.6 mmol/L Normal 3.5-5.1 [place] Comment on above: Performed By: #### G TT3P #### [facility] [address] [address] [address] Garland Kohli Sodium [Moles/Vol] 136 mmol/L Normal 136-145 [facility] Comment on above: Performed By: #### G TT3P #### [facility] [address] [address] [address] Garland Kohli Urea nitrogen [Mass/Vol] 5.0 mg/dL Critically low 7.0-18.0 [place] Comment on above: Performed By: #### G TT3P #### [facility] [address] [place] [address] Dr. Garland Kohli Urea nitrogen/Creatinine [Mass ratio] 11.6 mg/mg Normal [place] Comment on above: Performed By: #### G TT3P #### [facility] [address] [place] [address] Dr. Garland Kohli TROPONIN, HIGH SENSITIVITYon 04-04-2022 HSTROP 9.3 pg/mL Normal 4.0-51.3 [place] Comment on above: Result Comment: CUT- OFF POINTS HAVE BEEN ESTABLISHED BASED ON THE FOURTH UNIVERSAL DEFINITIONS OF MYOCARDIAL INFARCTION. THE UPPER REFERENCE LIMIT (URL) OF TROPONIN, DEFINED THE 99TH PERCENTILE OF cTnI DISTRIBUTION IN A REFERENCE POPULATION, HAS BEEN CONFIRMED THE DECISION THRESHOLD FOR DE DIAGNOSIS. Performed By: #### G TT3P #### [facility] [address] [place] [address] Dr. Garland Kohli CBC AUTO DIFFon 03-26-2022 BASO # 0.0 103/ul Normal 0.0-0.1 [place] Comment on above: Performed By: #### G TT3P #### [facility] [address] [place] [address] Dr. Garland Kohli Basophils/100 WBC (Bld) 0.2 % Normal 0.2-2.0 [place] Comment on above: Performed By: #### G TT3P #### [facility] [address] [address] [address] Garland Kohli EO # 0.1 103/ul Normal 0.0-0.[address] [facility] Comment on above: Performed By: #### G TT3P #### [facility] [address] [place] [address] Dr. Garland Kohli Eosinophils/100 WBC (Bld) 1.0 % Normal 0.9-7.[address] [facility] Comment on above: Performed By: #### G TT3P #### [facility] [address] [place] [address] Dr. Garland Kohli Erythrocyte distribution width (RBC) [Ratio] 12.8 % Normal 11.0-15.0 [place] Comment on above: Performed By: #### G TT3P #### [facility] [address] [place] [address] Dr. Garland Kohli Hematocrit (Bld) [Volume fraction] 36.2 % Normal 36.0-48.0 [place] Comment on above: Performed By: #### G TT3P #### [facility] [address] [place] [address] Dr. Garland Kohli Hemoglobin (Bld) [Mass/Vol] 12.2 g/dL Normal 12.0-16.0 [place] Comment on above: Performed By: #### G TT3P #### [facility] [address] [place] [address] Dr. Garland Kohli IG # 0.08 10e3/ul Critically high 0.00-0.03 [facility] Comment on above: Performed By: #### G TT3P #### [facility] [address] [place] [address] Dr. Garland Kohli IG % 0.9 % Critically high 0.0-0.5 The [facility] Comment on above: Performed By: #### G TT3P #### [facility] [address] [place] [address] Dr. Garland Kohli LYMPH # 1.7 103/ul Normal 1.2-3.[address] [facility] Comment on above: Performed By: #### G TT3P #### [facility] [address] [address] [address] Garland Kohli Lymphocytes/100 WBC (Bld) 17.8 % Critically low 20.5-60.0 [place] Comment on above: Performed By: #### G TT3P #### [facility] [address] [address] [address] Garland Kohli MANUAL DIFF REQ NO Normal The [facility] Comment on above: Performed By: #### G TT3P #### [facility] [address] [address] [address] Garland Kohli MCH (RBC) [Entitic mass] 30.7 pg Normal 26.7-34.[address] [facility] Comment on above: Performed By: #### G TT3P #### [facility] [address] [place] [address] Dr. Garland Kohli MCHC (RBC) [Mass/Vol] 33.7 g/dL Normal 29.9-35.[address] [facility] Comment on above: Performed By: #### G TT3P #### [facility] [address] [place] [address] Dr. Garland Kohli MCV (RBC) [Entitic vol] 91.2 fL Normal 81.0-99.[address] [facility] Comment on above: Performed By: #### G TT3P #### [facility] [address] [place] [address] Dr. Garland Kohli MONO # 0.6 103/ul Normal 0.3-0.[address] [facility] Comment on above: Performed By: #### G TT3P #### [facility] [address] [place] [address] Dr. Garland Kohli Monocytes/100 WBC (Bld) 6.0 % Normal 1.7-12.[address] [facility] Comment on above: Performed By: #### G TT3P #### [facility] [address] [place] [address] Dr. Garland Kohli NEUT # 6.9 103/ul Critically high 1.4-6.5 The [facility] Comment on above: Performed By: #### G TT3P #### [facility] [address] [address] [address] Garland Kohli Neutrophils/100 WBC (Bld) 74.1 % Normal 43.0-75.0 [place] Comment on above: Performed By: #### G TT3P #### [facility] [address] [address] [address] Garland Kohli Platelet mean volume (Bld) [Entitic vol] 10.2 fL Normal 9.5-13.5 [place] Comment on above: Performed By: #### G TT3P #### [facility] [address] [address] [address] Garland Kohli PLT 217 103/ul Normal 150-450 [place] Comment on above: Performed By: #### G TT3P #### [facility] [address] [address] [address] Garland Kohli RBC 3.97 106/ul Critically low 4.20-5.40 [facility] Comment on above: Performed By: #### G TT3P #### [facility] [address] [address] [address] Garland Kohli WBC 9.3 103/ul Normal 4.0-11.0 [place] Comment on above: Performed By: #### G TT3P #### [facility] [address] [address] [address] Garland Kohli GLUCOSE - 1HRon 03-26-2022 Glucose [Mass/Vol] 155 mg/dL Critically high 74-106 [facility] Comment on above: Performed By: #### C BC #### [facility] [address] [address] [address] Garland Kohli US PREG ANATOMY SINGLEon [...] TERAN Date: 2022-02-09 19:30 Normal [facility] AFP MATERNAL FOR SPINA BIFID Aon 01-29-2022 AFP MoM 0.76 Normal [address] [facility] Comment on above: Performed By: #### G TT3P #### [facility] [address] [address] [address] Garland Kohli AFP Value 35.4 ng/mL Normal [place] Comment on above: Performed By: #### G TT3P #### [facility] [address] [address] [address] Garland Kohli AFP, Serum for Spina Bifida Report Normal [facility] Comment on above: Performed By: #### G TT3P #### [facility] [address] [address] [address] Garland Kohli Comment Comment Normal [facility] Comment on above: Result Comment: Stanley Almodovar, Ph.D., [facility] Director . References: Available Upon Request. . Multiples Of Median Cutoffs For AFP Elevations Mark 2.5 Black 2.8 IDD 2.0 Twins 4.5 Abbreviation Definitions IDD - Insulin Dep Diabetes OSBR - Open Spina Bifida Risk . For further inquiries contact [facility] at [phone]. . This test was developed and its performance characteristics determined by [employer]. It has not been cleared or approved by the Food and Drug Administration. Performed By: #### G TT3P #### [facility] [address] [address] [address] Garland Izquierdo Age Collection Date 18.1 weeks Normal [place] Comment on above: Performed By: #### G TT3P #### [facility] [address] [address] [address] Garland Kohli Gestat, Age Based on Ultrasound Normal [place] Comment on above: Result Comment: 09:4 on 11/26/2021 Recalculations are not recommended when gestational dating by LMP and ultrasound are within 10 days. Performed By: #### G TT3P #### [facility] [address] [place] [address] Dr. Garland Kohli Insulin Dep Diabetes No Normal [place] Comment on above: Performed By: #### G TT3P #### [facility] [address] [place] [address] Dr. Garland Kohli Interpretation Comment Normal [facility] Comment on above: Result Comment: Inte rpretation: [...] Customer Services to discuss available options. The [employer] recommends amniocentesis be offered to women age 35 and older. Performed By: #### G TT3P #### [facility] [address] [place], [place] [id number] Dr. Garland Kohli [age] Normal [facility] Comment on above: Performed By: #### G TT3P #### [facility] [address] [place] [address] Dr. Garland Kohli Multiple Gestation No Normal [facility] Comment on above: Performed By: #### G TT3P #### [facility] [address] [address] [address] Garland Kohli OSBR [place] [address] [facility] Comment on above: Performed By: #### G TT3P #### [facility] [address] [address] [address] Garland Kholi PDF . [facility] Comment on above: Performed By: #### G TT3P #### [facility] [address] [address] [address] Garland Kohli Race [facility] Comment on above: Performed By: #### G TT3P #### [facility] [address] [place] [address] Dr. Garland Kohli Test Results: Negative [facility] Comment on above: Performed By: #### G TT3P #### [facility] [address] [place] [address] Dr. Garland Kohli PAP ACOG PANEL 2: to 29on 01-23-2022 . . [facility] Comment on above: Performed By: #### [id number] #### [facility] [address] [place] [address] Dr. Garland Kohli Age Gdln ACOG Testing [facility] Comment on above: Performed By: #### [id number] #### [facility] [address] [place] [address] Dr. Garland Kohli DIAGNOSIS: Comment [facility] Comment on above: Result Comment: NEGA TIVE FOR INTRAEPITHELIAL LESION OR MALIGNANCY. Performed By: #### [id number] #### [facility] [address] [place] [address] Dr. Garland Kohli Methodology: Comment [facility] Comment on above: Result Comment: This liquid based ThinPrep(R) pap test was screened with the use of an image guided system. Performed By: #### 4 [id number] #### [facility] [address] [place] [address] Dr. Garland Kohli Note: Comment [facility] Comment on above: Result Comment: The Pap smear is a screening test designed to aid in the detection of premalignant and malignant conditions of the uterine cervix. It is not a diagnostic procedure and should not be used as the sole means of detecting cervical cancer. Both false-positive and false-negative reports do occur. . Performed By: #### [id number] #### [facility] [address] [place] [address] Dr. Garland Kohli Performed by: Comment Normal [facility] Comment on above: Result Comment: Kelly Arreguin, Driver Retraining Instructor (ASCP) Performed By: #### 4 [id number] #### [facility] [address] [place] [address] Dr. Garland Kohli Reflex Criteria: Comment Normal [facility] Comment on above: Result Comment: The HPV DNA reflex criteria were not met with this specimen result therefore, no HPV testing was performed. . Performed By: #### [id number] #### [facility] [address] [place] [address] Dr. Garland Kohli Specimen adequacy: Comment Normal [facility] Comment on above: Result Comment: Sati sfactory for evaluation. No endocervical component is identified. Performed By: #### [id number] #### [facility] [address] [place] [address] Dr. Garland Kohli CHLAMYDIA/GONOCOCCUS JUAN (SW AB/URINE/PAPon 01-20-2022 Chlamydia trachomatis, JUAN Negative Normal Negative [place] Comment on above: Performed By: #### C BC #### [facility] [address] [place] [address] Dr. Garland Kohli Neisseria gonorrhoeae, JUAN Negative Normal Negative [place] Comment on above: Performed By: #### C BC #### [facility] [address] [place] [address] Dr. Garland Kohli TSHon 01-04-2022 TSH 1.707 uIU/mL Normal 0.358-3.740 [facility] Comment on above: Performed By: #### G TT3P #### [facility] [address] [place] [address] Dr. Garland Kohli HEPATITIS C VIRUS AB W/ REFL EX QUANTon 12-17-2021 HCV AB <0.1 Normal 0.0-0.9 [place] Comment on above: Performed By: #### G TT3P #### [facility] [address] [address] [address] Garland Kohli Interpretation: Comment Normal The [facility] Comment on above: Result Comment: Nega tive Not infected with HCV, unless recent infection is suspected or other evidence exists to indicate HCV infection. Performed By: #### G TT3P #### [facility] [address] [address] [address] Garland Kohli CULTURE URINEon 12-15-2021 CULTURE URINE Culture Observations : GREATER THAN TWO ORGANISMS PRESENT. PLEASE RESUBMIT CLEAN CATCH MID-STREAM URINE IF CLINICALLY INDICATED. Normal [facility] Comment on above: Performed By: #### U RCX #### [facility] [address] [place] [address] Dr. Garland Kohli HEP B SURFACE ANTIGEN SCREEN on 12-15-2021 HBsAg Screen Negative Normal Negative [place] Comment on above: Performed By: #### H BSANS #### [facility] [address] [address] [address] Garland Kohli HIV 1 AND 2 WITH REFLEXon HIV Screen 4th Generation wRfx Non-Reactive Normal Non Reactive [facility] Comment on above: Result Comment: HIV Negative HIV-1/HIV-2 antibodies and HIV-1 p24 antigen were NOT detected. There is no laboratory evidence of HIV infection. Performed By: #### H IV12 #### [facility] [address] [place] [address] Dr. Garland Kohli RPR QUANTon 12-15-2021 Rapid Plasma Reagin, Quant Non-Reactive Normal NonRea<1:1 [place] Comment on above: Result Comment: Elmo torres Note: This test does not meet current guidelines for screening and diagnosis of syphilis. This test is intended for following treatment response in patients being treated for syphilis infection. To screen for syphilis infection, a reflex cascade that includes both RPR and a treponema-specific assay should be utilized, such as Treponema pallidum (Syphilis) Screening [place] (056178) or Rapid Plasma Reagin (RPR) Test With Reflex to Quantitative RPR and Confirmatory Treponema pallidum Antibodies (115627). Performed By: #### G TT3P #### [facility] [address] [place] [address] Dr. Garland Kohli RUBELLA AB IGGon 12-15-2021 Rubella Antibodies, IgG 4.72 index Normal Immune >0.99 [place] Comment on above: Result Comment: Non- immune <0.90 Equivocal 0.90 - 0.99 Immune >0.99 Performed By: #### G TT3P #### [facility] [address] [place] [address] Dr. Garland Kohli CBC AUTO DIFFon 12-14-2021 BASO # 0.0 103/ul Normal 0.0-0.1 [place] Comment on above: Performed By: #### C BC #### [facility] [address] [place] [address] Dr. Garland Kohli Basophils/100 WBC (Bld) 0.3 % Normal 0.2-2.0 [place] Comment on above: Performed By: #### C BC #### [facility] [address] [place] [address] Dr. Garland Kohli EO # 0.1 103/ul Normal 0.0-0.7 [place] Comment on above: Performed By: #### C BC #### [facility] [address] [place] [address] Dr. Garland Kohli Eosinophils/100 WBC (Bld) 0.8 % Critically low 0.9-7.0 [place] Comment on above: Performed By: #### C BC #### [facility] [address] [place] [address] Dr. Garland Kohli Erythrocyte distribution width (RBC) [Ratio] 12.6 % Normal 11.0-15.0 [place] Comment on above: Performed By: #### C BC #### [facility] [address] [place] [address] Dr. Garland Kohli Hematocrit (Bld) [Volume fraction] 34.3 % Critically low 36.0-48.0 [place] Comment on above: Performed By: #### C BC #### [facility] [address] [place] [address] Dr. Garland Kohli Hemoglobin (Bld) [Mass/Vol] 11.7 g/dL Critically low 12.0-16.0 [place] Comment on above: Performed By: #### C BC #### [facility] [address] [place] [address] Dr. Garland Kohli IG # 0.03 10e3/ul Normal 0.00-0.03 [place] Comment on above: Performed By: #### C BC #### [facility] [address] [place] [address] Dr. Garland Kohli IG % 0.4 % Normal 0.0-0.5 [place] Comment on above: Performed By: #### C BC #### [facility] [address] [place] [address] Dr. Garland Kohli LYMPH # 1.5 103/ul Normal 1.2-3.8 [place] Comment on above: Performed By: #### C BC #### [facility] [address] [place] [address] Dr. Graland Kohli Lymphocytes/100 WBC (Bld) 21.1 % Normal 20.5-60.0 [place] Comment on above: Performed By: #### C BC #### [facility] [address] [place] [address] Dr. Garland Kohli MANUAL DIFF REQ NO Normal [facility] Comment on above: Performed By: #### C BC #### [facility] [address] [place] [address] Dr. Garland Kohli MCH (RBC) [Entitic mass] 30.5 pg Normal 26.7-34.0 [place] Comment on above: Performed By: #### C BC #### [facility] [address] [place] [address] Dr. Garland Kohli MCHC (RBC) [Mass/Vol] 34.1 g/dL Normal 29.9-35.2 [place] Comment on above: Performed By: #### C BC #### [facility] [address] [address] [address] Garland Kohli MCV (RBC) [Entitic vol] 89.6 fL Normal 81.0-99.0 [place] Comment on above: Performed By: #### C BC #### [facility] [address] [address] [address] Garland Kohli MONO # 0.5 103/ul Normal 0.3-0.8 [place] Comment on above: Performed By: #### C BC #### [facility] [address] [address] [address] Garland Kohli Monocytes/100 WBC (Bld) 7.1 % Normal 1.7-12.0 [place] Comment on above: Performed By: #### C BC #### [facility] [address] [address] [address] Garland Kohli NEUT # 5.0 103/ul Normal 1.4-6.5 [place] Comment on above: Performed By: #### C BC #### [facility] [address] [address] [address] Garland Kohli Neutrophils/100 WBC (Bld) 70.3 % Normal 43.0-75.0 [place] Comment on above: Performed By: #### C BC #### [facility] [address] [address] [address] Garland Kohli Platelet mean volume (Bld) [Entitic vol] 10.1 fL Normal 9.5-13.5 [place] Comment on above: Performed By: #### C BC #### [facility] [address] [address] [address] Garland Kohli PLT 234 103/ul Normal 150-[address] [facility] Comment on above: Performed By: #### C BC #### [facility] [address] [address] [address] Garland Kohli RBC 3.83 106/ul Critically low 4.20-5.40 [facility] Comment on above: Performed By: #### C BC #### [facility] [address] [address] [address] Garland Kohli WBC 7.1 103/ul Normal 4.0-11.0 [place] Comment on above: Performed By: #### C BC #### [facility] [address] [place] [address] Dr. Garland Kohli GLYCOHEMOGLOBIN A1Con 2021 ADA RECOMMENDATION SEE BELOW Normal [facility] Comment on above: Result Comment: ADA RECOMMENDED LIMIT 4.0 - 6.0 ADA THERAPEUTIC TARGET < 7.0 ACTION SUGGESTED > 7.0 Performed By: #### A 1C #### [facility] [address] [place] [address] Dr. Garland Kohli Glucose [Mass/Vol] 103 mg/dL Normal [facility] Comment on above: Performed By: #### A 1C #### [facility] [address] [place] [address] Dr. Garland Kohli HbA1c (Bld) [Mass fraction] 5.2 % Normal 4.5-6.2 [place] Comment on above: Performed By: #### A 1C #### [facility] [address] [place] [address] Dr. Garland Kohli MARTÍNEZ BOX TEST PT SEND OUTo n 12-14-2021 SENT TO REF LAB 12/14/21 Normal The [facility] Comment on above: Performed By: #### G TT3P #### [facility] [address] [place] [address] Dr. Garland Kohli TYPE AND SCREENon 12-14-2021 TYPE AND SCREEN Negative Normal The [facility] Comment on above: Performed By: #### C BC #### [facility] [address] [place] [address] Dr. Garland Kohli US PREG TVon 11-26-2021 [...] YAAKOV TERAN Date: 2021-11-26 18:36 Normal [address] 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 Steri-Strips applied throughout and then bulky gauze dressing as well as surgical bra was applied. The patient was awoken, extubated, and transported to the recovery room in stable condition. Sponge, needle, and instrument counts were reported correct x2 at the end of the case. MODE RENEE [id number] Doc#: [id number] CC: Carlos Alberto Coleman Normal [facility] Surgical Pathologyon 019 Surgical Pathology (NOTE) [id number] [facility] [address] [place], [place] [address] SURGICAL PATHOLOGY REPORT Patient Name: CECELIA JOHNSON MR#: [id number] Specimen #[id number] Final Diagnosis SPECIMEN A : BREAST AND [...] entire specimen weighs 453 grams. Multiple commercial sales representative sections are submitted in five [...] sampled in multiple different areas and commercial sales representative sections are submitted in five cassettes for microscopic examination. Microscopic Description Specimen A : Five RICHARD glass slides are received. Microscopic examination is performed. Specimen B : Five RICHARD glass slides are received. Microscopic examination is performed. Normal [facility] Comment on above: Performed By: #### P PPES #### [facility] [address] [place] [address] Bed Machine Operator: Victor Manuel Hunter DO CNOVSColton 11-18-2018 OVS Visit (SP) Office ([place]) CECELIA JOHNSON ([id number]) 1995 F Date Time Provider Department 11/18/18 1:00 PM JAZ MOULTON) KATHARINE During your visit today, we recorded the following information about you: Temperature Pulse Respiration Blood pressure 97.9 degrees 82/minute 18/minute 122/78 Weight Height Last Period 82.7 kg 1.6 m 10/15/18 Jaz Moulton MD 11/18/2018 3:08 PM Signed PATIENT NAME: Cecelia Elizabeth CLINIC NO.: [id number] ATTENDING PHYSICIAN: Jaz Moulton MD DATE OF [...] file Gets together: Not on file Attends hindu service: Not on file Active member of [...] number below. Jaz Moulton M.D. Hematology/Medical Oncology [facility] [place] [phone] CC: Carlos Alberto Coleman MD - (Inactive), In Basket (Inactive) - User (Inactive) [address] [place] [phone] (Ph) Mode Renee MD Referring Provider: [...] Status:Closed by JAZ MOULTON MD on 11/18/18 [facility] PROGRESSon 11-18-2018 PROGRESS HNO ID: [id number] Author: Jaz Hill) Kenney Service: ? Author Type: Physician Type: Progress Notes Filed: 11/18/2018 3:08 PM Note Text: PATIENT NAME: Cecelia Johnson [facility] NO.: [id number] ATTENDING PHYSICIAN: Jaz Moulton MD DATE OF [...] file Gets together: Not on file Attends hindu service: Not on file Active member of [...] number below. Jaz Moulton M.D. [facility]ology[facility] [phone] CC: Carlos Alberto Coleman MD - (Inactive), In Basket (Inactive) - User (Inactive) [address] [facility] [phone] (Ph) Mode Renee MD Normal [facility] Basic Metabolic Profon 11-10 (cont.) Normal [facility] Comment on above: Result Comment: Aver age GFR for 20-29 years old: 116 mL/min/1.73sq m Chronic Kidney Disease: <60 mL/min/1.73sq m Kidney failure: <15 mL/min/1.73sq m eGFR calculated using average adult body mass. Additional eGFR calculator available at: http://www.[employer]ang[employer]/multiple_crcl_2011.htm Performed By: #### C DP, BMP #### [facility] [address] [place] [address] Bed Machine Operator: Victor Manuel Hunter DO Anion gap [Moles/Vol] 11 mmol/L Normal 9-17 [facility] Comment on above: Performed By: #### C DP, BMP #### [facility] [place] [address] Bed Machine Operator: Victor Manuel Hunter DO Calcium [Mass/Vol] 9.7 mg/dL Normal 8.6-10.4 [facility] [place] Comment on above: Performed By: #### C DP, BMP #### [facility] [place] [address] Bed Machine Operator: Victor Manuel Hunter DO Chloride [Moles/Vol] 102 mmol/L Normal 98-107 [facility] Comment on above: Performed By: #### C DP, BMP #### [facility] [place] [address] Bed Machine Operator: Victor Manuel Hunter DO CO2 [Moles/Vol] 26 mmol/L Normal 20-31 [facility] Comment on above: Performed By: #### C DP, BMP #### [facility] [place] [address] Bed Machine Operator: Victor Manuel Hunter DO Creatinine [Mass/Vol] 0.49 mg/dL Low 0.50-0.90 [facility] Comment on above: Performed By: #### C DP, BMP #### [facility] [place] [address] Bed Machine Operator: Victor Manuel Hunter DO GFR, Amer >60 Normal >60 [facility] Comment on above: Performed By: #### C DP, BMP #### [facility] [address] [place] [address] Bed Machine Operator: Victor Manuel Hunter DO GFR,non Amer >60 Normal >60 [facility] Comment on above: Performed By: #### C DP, BMP #### [facility] [address] [place] [address] Bed Machine Operator: Victor Manuel Hunter DO Glucose [Mass/Vol] 88 mg/dL Normal 70-99 [facility] Comment on above: Performed By: #### C DP, BMP #### [facility] [address] [place] [address] Bed Machine Operator: Victor Manuel Hunter DO Potassium [Moles/Vol] 4.3 mmol/L Normal 3.7-5.3 [facility] Comment on above: Performed By: #### C FARAZ, BMP #### [facility] [place] [address] Bed Machine Operator: Victor Manuel Hunter DO Sodium [Moles/Vol] 139 mmol/L Normal 135-144 [facility] Comment on above: Performed By: #### C FARAZ, BMP #### [facility] [place] [address] Bed Machine Operator: Victor Manuel Hunter DO Urea nitrogen [Mass/Vol] 8 mg/dL Normal 6-20 [facility] Comment on above: Performed By: #### C FARAZ, BMP #### [facility] [address] [place] [address] Bed Machine Operator: Victor Manuel Hunter DO BUN/CRE Ratio NOT REPORTED Normal 9-20 [facility] Comment on above: Performed By: #### C DP, BMP #### [facility] [address] [place] [address] Bed Machine Operator: Victor Manuel Hunter DO Staging: NOT REPORTED Normal [facility] Comment on above: Performed By: #### C DP, BMP #### [facility] [place] [address] Bed Machine Operator: Victor Manuel Hunter DO CBC with Diffon 11-10-2018 Abs. Basophil 0.00 k/uL Normal 0.0-0.2 [facility] Comment on above: Performed By: #### C FARAZ, BMP #### [facility] [address] [place] [address] Bed Machine Operator: Victor Manuel Hunter DO Abs.Neutrophil (Seg) 3.00 k/uL Normal 1.3-9.1 [facility] Comment on above: Performed By: #### C FARAZ, BMP #### [facility] [address] [place] [address] Bed Machine Operator: Victor Manuel Hunter DO Basophils/100 WBC (Bld) 0 % Normal 0-2 [facility] Comment on above: Performed By: #### C FARAZ, BMP #### [facility] [address] [place] [address] Bed Machine Operator: Victor Manuel Hunter DO Eosinophils (Bld) [#/Vol] 0.10 10*3/uL Normal 0.0-0.4 [facility] Comment on above: Performed By: #### C FARAZ, BMP #### [facility] [address] [place] [address] Bed Machine Operator: Victor Manuel Hunter DO Eosinophils/100 WBC (Bld) 1 % Normal 0-4 [facility] Comment on above: Performed By: #### C DP, BMP #### [facility] [address] [place] [address] Bed Machine Operator: Victor Manuel Hunter DO Erythrocyte distribution width (RBC) [Ratio] 12.7 % Normal 11.5-14.9 [facility] Comment on above: Performed By: #### C DP, BMP #### [facility] [place] [address] Bed Machine Operator: Victor Manuel Hunter DO Hematocrit (Bld) [Volume fraction] 42.3 % Normal 36-46 [facility] Comment on above: Performed By: #### C DP, BMP #### [facility] [address] [place] [address] Bed Machine Operator: Victor Manuel Hunter DO Hemoglobin (Bld) [Mass/Vol] 14.3 g/dL Normal 12.0-16.0 [facility] Comment on above: Performed By: #### C DP, BMP #### [facility] [address] [place] [address] Bed Machine Operator: Victor Manuel Hunter DO Lymphocytes (Bld) [#/Vol] 1.70 10*3/uL Normal 1.0-4.8 [facility] Comment on above: Performed By: #### C FARAZ, BMP #### [facility] [address] [place] [address] Bed Machine Operator: Victor Manuel Hunter DO Lymphocytes/100 WBC (Bld) 32 % Normal 24-44 [facility] Comment on above: Performed By: #### C FARAZ, BMP #### [facility] [address] [place] [address] Bed Machine Operator: Victor Manuel Hunter DO MCH (RBC) [Entitic mass] 30.0 pg Normal 26-34 [facility] Comment on above: Performed By: #### C DP, BMP #### [facility] [address] [place] [address] Bed Machine Operator: Victor Manuel Hunter DO MCHC (RBC) [Mass/Vol] 33.7 g/dL Normal 31-37 [facility] Comment on above: Performed By: #### C DP, ROSA #### [facility] [address] [place] [address] Bed Machine Operator: Victor Manuel Hunter DO MCV (RBC) [Entitic vol] 89.0 fL Normal 80-100 [facility] Comment on above: Performed By: #### C DP, BMP #### [facility] [place] [address] Bed Machine Operator: Victor Manuel Hunter DO Monocytes (Bld) [#/Vol] 0.60 10*3/uL Normal 0.1-1.3 [facility] Comment on above: Performed By: #### C DP, BMP #### [facility] [place] [address] Bed Machine Operator: Victor Manuel Hunter DO Monocytes/100 WBC (Bld) 11 % High 1-7 [facility] Comment on above: Performed By: #### C DP, BMP #### [facility] [place] [address] Bed Machine Operator: Victor Manuel Hunter DO Neutrophil (Seg) 56 % Normal 36-66 [facility] Comment on above: Performed By: #### C DP, BMP #### [facility] [address] [place] [address] Bed Machine Operator: Victor Manuel Hunter DO Platelet mean volume (Bld) [Entitic vol] 9.4 fL Normal 6.0-12.0 [facility] Comment on above: Performed By: #### C DP, BMP #### [facility] [place] [address] Bed Machine Operator: Victor Manuel Hunter DO Platelets (Bld) [#/Vol] 252 10*3/uL Normal 150-450 [facility] Comment on above: Performed By: #### C DP, BMP #### [facility] [address] [facility] [place] [address] Bed Machine Operator: Victor Manuel Hunter DO RBC (Bld) [#/Vol] 4.75 10*6/uL Normal 4.0-5.2 [facility] Comment on above: Performed By: #### C DP, BMP #### [facility] [address] [place] [address] Bed Machine Operator: Victor Manuel Hunter DO WBC (Bld) [#/Vol] 5.3 10*3/uL Normal 3.5-11.0 [facility] Comment on above: Performed By: #### C DP, BMP #### [facility] [place] [address] Bed Machine Operator: Victor Manuel Hunter DO Abs.Imm.Granulocyte NOT REPORTED Normal 0.00-0.30 [facility] Comment on above: Performed By: #### C DP, BMP #### [facility] [place] [address] Bed Machine Operator: Victor Manuel Hunter DO Auto Diff Performed NOT REPORTED Normal [facility] Comment on above: Performed By: #### C DP, BMP #### [facility] [address] [place] [address] Bed Machine Operator: Victor Manuel Hunter DO Immature granulocytes (Bld) [#/Vol] NOT REPORTED Normal 0 [facility] Comment on above: Performed By: #### C DP, BMP #### [facility] [place] [address] Bed Machine Operator: Victor Manuel Hunter DO NRBC Automated NOT REPORTED Normal [facility] Comment on above: Performed By: #### C DP, BMP #### [facility] [place] [address] Bed Machine Operator: Victor Manuel Hunter DO Platelets (Bld) [#/Vol] NOT REPORTED Normal [facility] Comment on above: Performed By: #### C DP, BMP #### [facility] [address] [facility] [place] [address] Bed Machine Operator: Victor Manuel Hunter DO RBC morphology finding Nom (Bld) NOT REPORTED Normal [facility] Comment on above: Performed By: #### C DP, BMP #### [facility] [address] [place] [address] Bed Machine Operator: Victor Manuel Hunter DO WBC Morphology NOT REPORTED Normal [facility] Comment on above: Performed By: #### C DP, BMP #### [facility] [address] [place] [address] Bed Machine Operator: Victor Manuel Hunter DO Vital Signs Date Time Vital Sign Value Performing Clinician Facility 06-06-2024 16:22-0500 Body mass index (BMI) [Ratio] 33.47 kg/m2 Tori Quintanilla PA Work Phone: [facility] 06-06-2024 16:22-0500 Body weight 88.45 kg Tori Quintanilla PA Work Phone: [facility] 06-06-2024 16:22-0500 Diastolic blood pressure 76 mm[Hg] Tori Quintanilla PA Work Phone: [facility] 06-06-2024 16:22-0500 Systolic blood pressure 118 mm[Hg] Tori Quintanilla PA Work Phone: [facility] 05-30-2024 15:38-0500 Body mass index (BMI) [Ratio] 33.49 kg/m2 Herber Nnamdi DO Work Phone: [facility] 05-30-2024 15:38-0500 Body weight 88.51 kg Ehrber Nnamdi DO Work Phone: [facility] 05-30-2024 15:38-0500 Diastolic blood pressure 82 mm[Hg] Herber Nnamdi DO Work Phone: [facility] 05-30-2024 15:38-0500 Systolic blood pressure 126 mm[Hg] Herber Nnamdi DO Work Phone: [facility] 05-25-2024 14:24-0500 Body mass index (BMI) [Ratio] 33.03 kg/m2 Herber Nnamdi DO Work Phone: [facility] 05-25-2024 14:24-0500 Body weight 87.27 kg Herber Nnamdi DO Work Phone: [facility] 05-25-2024 14:24-0500 Diastolic blood pressure 84 mm[Hg] Herber Nnamdi DO Work Phone: [facility] 05-25-2024 14:24-0500 Systolic blood pressure 124 mm[Hg] Herber Nnamdi DO Work Phone: [facility] 05-09-2024 16:07-0500 Body mass index (BMI) [Ratio] 32.61 kg/m2 Tori Talbotey PA Work Phone: [facility] 05-09-2024 16:07-0500 Body weight 86.18 kg Tori Hartly PA Work Phone: [facility] 05-09-2024 16:07-0500 Diastolic blood pressure 82 mm[Hg] Tori Dwight PA Work Phone: [facility] 05-09-2024 16:07-0500 Systolic blood pressure 120 mm[Hg] Tori Hartly PA Work Phone: [facility] 05-03-2024 16:38-0500 Body height 162.6 cm Tori Warchol [employer] Work Phone: [facility] 05-03-2024 16:38-0500 Body mass index (BMI) [Ratio] 32.3 kg/m2 Tori Warchol [employer] Work Phone: [facility] 05-03-2024 16:38-0500 Body temperature 97.59 [degF] Tori Warchol [employer] Work Phone: [facility] 05-03-2024 16:38-0500 Body weight 85.37 kg Tori Gomezchol [employer] Work Phone: [facility] 05-03-2024 16:38-0500 Diastolic blood pressure 72 mm[Hg] Tori Gomezchol [employer] Work Phone: [facility] 05-03-2024 16:38-0500 Heart rate 93 /min Tori Gomezchol [employer] Work Phone: [facility] 05-03-2024 16:38-0500 SaO2% (BldA) [Mass fraction] 99 % Tori Gomezchol [employer] Work Phone: [facility] 05-03-2024 16:38-0500 Systolic blood pressure 124 mm[Hg] Tori Gomezchol [employer] Work Phone: [facility] 04-21-2024 08:49-0500 Body mass index (BMI) [Ratio] 32.06 kg/m2 Herber Nnamdi DO Work Phone: [facility] 04-21-2024 08:49-0500 Body weight 84.73 kg Herber Nnamdi DO Work Phone: [facility] 04-21-2024 08:49-0500 Diastolic blood pressure 72 mm[Hg] Herber Nnamdi DO Work Phone: [facility] 04-21-2024 08:49-0500 Systolic blood pressure 104 mm[Hg] Herber Nnamdi DO Work Phone: [facility] 04-13-2024 15:58-0500 Body mass index (BMI) [Ratio] 31.78 kg/m2 Tori Quintanilla PA Work Phone: [facility] 04-13-2024 15:58-0500 Body weight 83.97 kg Tori Quintanilla PA Work Phone: [facility] 04-13-2024 15:58-0500 Diastolic blood pressure 80 mm[Hg] Tori Quintanilla PA Work Phone: [facility] 04-13-2024 15:58-0500 Systolic blood pressure 120 mm[Hg] Tori Dwight PA Work Phone: [facility] 04-06-2024 16:29-0500 Body mass index (BMI) [Ratio] 31.65 kg/m2 Tori Dwight PA Work Phone: [facility] 04-06-2024 16:29-0500 Body weight 83.64 kg Tori Hartly PA Work Phone: [facility] 04-06-2024 16:29-0500 Diastolic blood pressure 74 mm[Hg] Tori Dwight PA Work Phone: [facility] 04-06-2024 16:29-0500 Systolic blood pressure 112 mm[Hg] Tori Dwight PA Work Phone: [facility] 03-09-2024 16:25-0500 Body mass index (BMI) [Ratio] 30.88 kg/m2 Tori Dwight PA Work Phone: [facility] 03-09-2024 16:25-0500 Body weight 81.6 kg Tori Dwight PA Work Phone: [facility] 03-09-2024 16:25-0500 Diastolic blood pressure 70 mm[Hg] Tori Hartly PA Work Phone: [facility] 03-09-2024 16:25-0500 Systolic blood pressure 114 mm[Hg] Tori Dwight PA Work Phone: [facility] 02-10-2024 14:44-0400 Body mass index (BMI) [Ratio] 29.39 kg/m2 Herber Nnamdi DO Work Phone: [facility] 02-10-2024 14:44-0400 Body weight 77.68 kg Herber Nnamdi DO Work Phone: [facility] 02-10-2024 14:44-0400 Diastolic blood pressure 68 mm[Hg] Herber Nnamdi DO Work Phone: [facility] 02-10-2024 14:44-0400 Systolic blood pressure 116 mm[Hg] Herber Nnamdi DO Work Phone: [facility] 01-11-2024 16:03-0400 Body mass index (BMI) [Ratio] 28.06 kg/m2 Herber Nnamdi DO Work Phone: [facility] 01-11-2024 16:03-0400 Body weight 74.16 kg Herber Nnamdi DO Work Phone: [facility] 01-11-2024 16:03-0400 Diastolic blood pressure 72 mm[Hg] Herber Nnamdi DO Work Phone: [facility] 01-11-2024 16:03-0400 Systolic blood pressure 118 mm[Hg] Herber Nnamdi DO Work Phone: [facility] 01-29-2022 02:06-0400 Body weight 67.[address] ZEN BREWER . [facility] Comment on above: Performed By: #### GTT3P #### [facility] [address] [place] [address] Dr. Garland Kohli Encounters Encounter Date Encounter Type Care Provider Facility Start: 06-07-2024 End: 06-07-2024 Clinisync Result Encounter Herber Nnamdi DO Work Phone: [facility] External Department Unsolicited Start: 06-07-2024 End: 06-07-2024 Clinisync Result Encounter Herber Nnamdi DO Work Phone: [facility] External Department Unsolicited Start: 06-06-2024 End: 06-06-2024 flow sheet Tori SHIRLEY Work Phone: [facility] Comment on above: Third trimester preg arnoldo; 36 weeks gestation of Start: 06-06-2024 End: 06-06-2024 ambulatory TORI QUINTANILLA Not Available Start: 06-06-2024 End: 06-06-2024 Bamboo flowsheet Tori SHIRLEY Work Phone: [facility] Start: 06-06-2024 End: 06-06-2024 Bamboo flowsheet Tori SHIRLEY Work Phone: [facility] Start: 05-31-2024 End: 05-31-2024 Clinisync Result Encounter Herber Nnamdi DO Work Phone: [facility] External Department Unsolicited Start: 05-31-2024 End: 05-31-2024 Clinisync Result Encounter Herber Nnamdi DO Work Phone: [facility] External Department Unsolicited Start: 05-30-2024 End: 05-30-2024 ambulatory HERBER NNAMDI Not Available Start: 05-30-2024 End: 05-30-2024 flow sheet Herber Nnamdi DO Work Phone: [facility] Comment on above: Third trimester preg arnoldo; 35 weeks gestation of Start: 05-30-2024 End: 05-30-2024 Bamboo flowsheet Herber Nnamdi DO Work Phone: [facility] Start: 05-30-2024 End: 05-30-2024 Bamboo flowsheet Herber Nnamdi DO Work Phone: [facility] Start: 05-30-2024 End: 05-30-2024 Clinisync Result Encounter Generic External Data Provider [facility] External Department Unsolicited Start: 05-25-2024 End: 05-25-2024 [...] Result Encounter Herber Nnamdi DO Work Phone: [facility] External Department Unsolicited Start: 05-09-2024 End: 05-09-2024 flow sheet Tori Quintanilla PA Work Phone: [facility] Comment on above: 32 weeks gestation o f ; Third trimester Start: 05-09-2024 End: 05-09-2024 ambulatory TORI TALBOTEY Not Available Start: 05-09-2024 End: 05-09-2024 Bamboo flowsheet Tori Quintanilla PA Work Phone: [facility] Start: 05-09-2024 End: 05-09-2024 Bamboo flowsheet Tori Dwight PA Work Phone: [facility] Start: 05-03-2024 End: 05-03-2024 Office outpatient visit 25 minutes Tori Martinez [employer] Work Phone: [facility] Comment on above: Need for follow-up c are after discharge (Primary Dx) Start: 05-03-2024 End: 05-03-2024 ambulatory TORI MARTINEZ Not Available Start: 05-03-2024 End: 05-03-2024 Bamboo flowsheet Tori Kylee [employer] Work Phone: [facility] Start: 05-03-2024 End: 05-03-2024 Bamboo flowsheet Tori Martinez [employer] Work Phone: [facility] Start: 04-21-2024 [...] 04-13-2024 flow sheet Tori SHIRLEY Work Phone: [facility] Comment on above: 28 weeks gestation o f ; Second trimester ; Gestational diabetes mellitus (GDM), antepartum, gestational diabetes method of control unspecified; Anxiety, generalized (CMS/HCC); Nausea; Hypothyroidism, unspecified type (CMS/HCC) Start: 04-13-2024 End: 04-13-2024 ambulatory TORI QUINTANILLA Not Available Start: 04-13-2024 End: 04-13-2024 Bamboo flowsheet Tori Quintanilla PA Work Phone: [facility] Start: 04-13-2024 End: 04-13-2024 Bamboo flowsheet Tori Quintanilla PA Work Phone: [facility] Start: 04-06-2024 End: 04-06-2024 ambulatory TORI QUINTANILLA Not Available Start: 04-06-2024 End: 04-06-2024 flow sheet Tori SHIRLEY Work Phone: [facility] Comment on above: Second trimester pre gnancy; 27 weeks gestation of Start: 04-06-2024 End: 04-06-2024 Bamboo flowsheet Tori Quintanilla PA Work Phone: [facility] Start: 04-06-2024 End: 04-06-2024 Bamboo flowsheet Tori Quintanilla PA Work Phone: [facility] Start: 03-19-2024 End: 03-19-2024 Clinisync Result Encounter Tori SHIRLEY Work Phone: [facility] External Department Unsolicited Start: 03-19-2024 End: 03-19-2024 Clinisync Result Encounter Tori SHIRLEY Work Phone: [facility] External Department Unsolicited Start: 03-09-2024 End: 03-09-2024 ambulatory TORI QUINTANILLA Not Available Start: 03-09-2024 End: 03-09-2024 flow sheet Tori SHIRLEY Work Phone: [facility] Comment on above: Encounter for follow -up ultrasound of anatomy; Second trimester ; 23 weeks gestation of ; Hypothyroidism, unspecified type (CMS/[facility]); Diabetes mellitus screening; Anxiety, generalized (CMS/[facility]) Start: 03-09-2024 End: 03-09-2024 Bamboo flowsheet Tori SHIRLEY Work Phone: [facility] Start: 03-09-2024 End: 03-09-2024 Bamboo flowsheet Tori SHIRLEY Work Phone: [facility] Start: 02-10-2024 End: 02-10-2024 ambulatory HERBER NNAMDI Not Available Start: 02-10-2024 End: 02-10-2024 Bamboo flowsheet Herber Nnamdi DO Work Phone: [facility] Start: 02-10-2024 End: 02-17-2024 Bamboo flowsheet Herber Nnamdi DO Work Phone: [facility] Start: 02-10-2024 End: 02-17-2024 Clinisync Result Encounter Generic External Data Provider [facility] External Department Unsolicited Start: 02-10-2024 End: 02-10-2024 Patient encounter procedure Herber Nnamdi DO Work Phone: [facility] Start: 02-10-2024 End: 02-10-2024 Periodic preventive med est patient 18-39 yrs Herber Nnamdi DO Work Phone: [facility] Comment on above: Well woman [...] flow sheet Herber Nnamdi DO Work Phone: [facility] Comment on above: Second trimester [...] Available Start: 07-17-2023 End: 07-17-2023 ambulatory TORI GOMEZCHOL Not Available Start: 07-13-2023 End: 07-13-2023 Patient encounter procedure MD Carlos Alberto Coleman Work Phone: [facility] Start: 07-13-2023 End: 07-13-2023 ambulatory MD Carlos Alberto Coleman Work Phone: [facility] Work Phone: Start: 07-13-2023 End: 07-13-2023 ambulatory SOFIE LARKIN Not Available Start: 06-02-2023 Refill Tori Martinez [employer] Work Phone: [facility] Comment on [...] without abnormal findings DR ZEN BREWER . [place] Start: 01-17-2022 End: 01-17-[address] ZEN BREWER . Facility:[facility] Start: 01-17-2022 End: 01-17-2022 Encounter for gynecological examination (general) (routine) without abnormal findings DR ZEN BREWER . Facility:[facility] Start: 01-04-2022 End: 01-05-2022 ambulatory ÁNGEL SINHA Facility:[facility] Start: 12-14-2021 End: 12-15-[address] ZEN BREWER . Facility:[facility] Start: 11-26-2021 End: 11-27-2021 ambulatory ÁNGEL SINHA Facility:[facility] Start: 11-24-2018 End: 11-24-2018 Patient encounter procedure [facility] Start: 11-10-2018 End: 11-15-2018 Patient encounter procedure [facility] Procedures Date Procedure Procedure Detail Performing Clinician Start: 06-07-2024 US OB GROWTH Herber Fazi o DO Work Phone: Start: 06-07-2024 US OB BPP W NON-STRESS Herber Nnamdi DO Work Phone: Start: 06-06-2024 Urnls dip stick/tabl et rgnt non-auto w/o micrscp Tori SHIRLEY Work Phone: Start: 05-31-2024 US OB BPP W NON-STRESS Herber Nnamdi DO Work Phone: Start: 05-30-2024 ALL THYROID STIM HORMONE Herber Nnamdi DO Work Phone: Start: 05-30-2024 Urnls dip stick/tabl et rgnt non-auto w/o micrscp Herber Nnamdi DO Work Phone: Start: 05-25-2024 [...] t hin layer prep mnl screen Tori Hartly PA Work Phone: Start: 01-22-2024 ALL THYROID STIM HORMONE Herber Coto DO Work Phone: Start: 01-11-2024 Urnls dip stick/tabl et rgnt non-auto w/o micrscp Herber Varmao DO Work Phone: Start: 07-13-2023 Respiratory Panel [...] (SPECIFY) MODE RENEE Start: 11-24-2018 VITAL SIGNS MODEMICKI ESPINO Start: 11-10-2018 Ecg routine ecg w/le ast 12 lds w/i&r MODE RENEE Start: 11-10-2018 EKG REPORT MODE ESPINO Start: 11-10-2018 Basic metabolic pane l calcium total MODE RENEE Start: 11-10-2018 Blood count complete auto&auto difrntl wbc MODEMICKI RENEE Plan of Treatment Date Care Activity Detail Author Start: 02-09-2029 Screening for malign ant neoplasm of cervix [facility] Start: 2024 Influenza vaccination Influenza Vacc ine (#1) [facility] Comment on above: Postponed from 12/26 (Patient Refused) Start: 06-22-2024 End: 06-22-2024 Patient encounter procedure 06/22/2024 3:50 PM EST Routine [facility] [address] [place] [phone] Herber Coto, DO [address] [place] [address] [facility] Start: 06-13-2024 End: 06-13-2024 Patient encounter procedure 06/13/2024 3:20 PM EST Routine [facility] [address] [place] [address] Herber Coto, DO [address] [place] [address] [facility] Start: 06-06-2024 End: 06-06-2024 Patient encounter procedure [facility] Comment on above: Arrived Start: 05-30-2024 End: 05-30-2024 Patient encounter procedure 05/30/2024 3:00 PM EST Routine [facility] [address] [place] [address] Herber Coto, DO [address] [place], [place] [address] [address] [facility] Start: 05-30-2024 End: 05-30-2025 CULTURE, GROUP B STREP WITH SUSCEPTIBLITY CULTURE, GROUP B STREP WITH SUSCEPTIBLITY Lab Routine Third trimester Expected: 05/30/2024, Expires: 05/30/2025 [facility] Work Phone: Comment on above: Expected: 05/30/2024 , Expires: 05/30/2025 Start: 05-25-2024 End: 05-25-2024 Patient encounter procedure 05/25/2024 2:10 PM EST Routine [facility] [address] [place] [address] Herber Coto, [address] [place] [address] [facility] Start: 05-09-2024 End: 05-09-2024 Patient encounter procedure [facility] Comment on above: Arrived Start: 05-03-2024 End: 05-03-2024 Patient encounter procedure 05/03/2024 4:40 PM EST Office Visit [facility] [address] [place] [address] Tori Martinez, HERRERA [address] [place] [address] Need for follow-up care after discharge (Primary Dx) [facility] Comment on above: Need for follow-up c are after discharge (Primary Dx) Start: 04-21-2024 End: 04-21-2024 Patient encounter procedure 04/21/2024 8:30 AM EST Routine [facility] [address] [place] [phone] Herber Coto, [address] [place] [address] [facility] Start: 04-13-2024 End: 04-13-2024 [...] [facility] [address] [place] [address] Tori Quintanilla PA [address] [place] [address] [facility] Start: 04-03-2024 End: 03-04-2025 US for US OB INCOMPLETE ANATOMY Imaging Routine Encounter for follow-up ultrasound of anatomy Expected: 04/03/2024 (Approximate), Expires: 03/04/2025 [facility] Work Phone: Comment on above: Expected: 04/03/2024 (Approximate), Expires: 03/04/2025 Start: 03-09-2024 End: 03-09-2024 Patient encounter procedure 03/09/2024 3:50 PM EST Routine [facility] [address] [place] [address] Tori Quintanilla PA [address] [facility] [address] [facility] Start: 03-09-2024 End: 03-09-2025 CBC panel - Blood by Automated count CBC Lab Routine Diabetes mellitus screening Expected: 03/09/2024 (Approximate), Expires: 03/09/2025 [facility] Comment on above: Expected: 03/09/2024 (Approximate), Expires: 03/09/2025 Start: 03-09-2024 End: 03-09-2025 Measurement of glucose 1 hour after glucose challenge for glucose tolerance test Glucose tolerance, 1 hour Lab Routine Diabetes mellitus screening Expected: 03/09/2024 (Approximate), Expires: 03/09/2025 [facility] Comment on above: Expected: 03/09/2024 (Approximate), Expires: 03/09/2025 Start: 03-09-2024 End: 03-09-2025 US for US OB SCAN FOR GROWTH Imaging Routine Hypothyroidism, unspecified type (CMS/HCC) Expected: 03/09/2024 (Approximate), Expires: 03/09/2025 [facility] Comment on above: Expected: 03/09/2024 (Approximate), Expires: 03/09/2025 Start: 02-10-2024 End: 02-09-2025 Alpha fetoprotein, maternal Alpha fetoprotein, maternal Lab Routine Second trimester 19 weeks gestation of Expected: 02/10/2024 (Approximate), Expires: 02/09/2025 [facility] Comment on above: Expected: 02/10/2024 (Approximate), Expires: 02/09/2025 Start: 02-10-2024 End: 02-09-2025 US for US OB ANATOMY SINGLE W US OB CERVICAL LENGTH Imaging Routine Screening, , for anatomic survey Expected: 02/10/2024 (Approximate), Expires: 02/09/2025 [facility] Comment on above: Expected: 02/10/2024 (Approximate), Expires: 02/09/2025 Start: 02-10-2024 End: 02-10-2024 Patient encounter procedure 02/10/2024 1:50 PM EDT Routine [facility] [address] [place] [phone] Herber Coto, DO [address] [place], [facility] Start: 01-11-2024 End: 01-11-2024 Patient encounter procedure 01/11/2024 3:50 PM EDT Routine [facility] [address] [facility] [place] [phone] Herber Coto, DO [address] [place] [address] Arrived [facility] Comment on above: Arrived Start: 12-27-2023 Influenza vaccination Influenza Vacc ine (#1) [facility] Start: 10-25-2023 Influenza vaccination Influenza Vacc ine (#1) [facility] Comment on above: Postponed from 12/26 (Patient Refused) Start: 10-25-2023 Screening for malign ant neoplasm of cervix [facility] Start: 07-17-2023 End: 07-17-2023 Patient encounter procedure 07/17/2023 8:00 AM EDT Office Visit [facility] [address] [place] [phone] Tori Martinez NP [address] [place] [address] [facility] Start: 2014 Screening for malign ant neoplasm of cervix Pap Smear [facility] CHLAMYDIA TRACHOMATI S (GENITO/STI) CHLAMYDIA TRACHOMATIS (GENITO/STI) Lab Routine Screen for STD (sexually transmitted disease) Vaginal discharge Ordered: 02/10/2024 [facility] Comment on above: Ordered: 02/10/2024 Cytology Cervical or vaginal smear or scraping study Pap Smear Pathology and Cytology Routine Well woman exam with routine gynecological exam Ordered: 02/10/2024 [facility] Comment on above: Ordered: 02/10/2024 Human papilloma viru s DNA [Presence] in Unspecified specimen by Probe with amplification HPV DNA probe, amplified Microbiology Routine Well woman exam with routine gynecological exam Ordered: 02/10/2024 [facility] Comment on above: Ordered: 02/10/2024 Neisseria gonorrhoea e DNA [Presence] in Unspecified specimen by JUAN with probe detection Neisseria gonorrhea DNA probe, direct Lab Routine Screen for STD (sexually transmitted disease) Vaginal discharge Ordered: 02/10/2024 [facility] Comment on above: Ordered: 02/10/2024 SURESWAB(R) ADVANCED VAGINITIS PLUS, TMA SURESWAB(R) ADVANCED VAGINITIS PLUS, TMA Pathology and Cytology Routine Screen for STD (sexually transmitted disease) Vaginal discharge Ordered: 02/10/2024 [facility] Work Phone: Comment on above: Ordered: 02/10/2024 Thyrotropin [Units/volume] in Serum or Plasma TSH Lab Routine Other specified hypothyroidism (CMS/HCC) Ordered: 01/11/2024 [facility] Work Phone: Comment on above: Ordered: 01/11/2024 Thyrotropin [Units/volume] in Serum or Plasma TSH Lab Routine Hypothyroidism, unspecified type (CMS/HCC) Ordered: 04/13/2024 [facility] Comment on above: Ordered: 04/13/2024 Immunizations Immunization Date Immunization Notes Care Provider Byron carlosn 05-05-2015 tetanus toxoid, redu catherine diphtheria toxoid, and acellular pertussis vaccine, adsorbed Tori Warchol [employer] Work Phone: [facility] 02-14-2009 influenza, seasonal, injectable Tori Warchol [employer] Work Phone: [facility] 02-14-2009 influenza virus vacc ine, unspecified formulation Tori Warchol [employer] Work Phone: [facility] 12-12-2005 hepatitis A vaccine, unspecified formulation Tori Warchol [employer] Work Phone: [facility] 12-12-2005 tetanus toxoid, redu catherine diphtheria toxoid, and acellular pertussis vaccine, adsorbed Tori Warchol [employer] Work Phone: [facility] 11-19-1998 diphtheria, tetanus toxoids and acellular pertussis vaccine, unspecified formulation Tori Warchol [employer] Work Phone: [facility] 11-19-1998 measles, mumps and rubella virus vaccine Tori Warchol [employer] Work Phone: [facility] 11-19-1998 trivalent poliovirus vaccine, live, oral Tori Warchol [employer] Work Phone: [facility] 09-14-1995 diphtheria, tetanus toxoids and acellular pertussis vaccine, unspecified formulation Tori Warchol [employer] Work Phone: [facility] 09-14-1995 haemophilus influenz ae type b vaccine, conjugate unspecified formulation Tori Warchol [employer] Work Phone: [facility] 11-20-1994 DTP-Haemophilus influenzae type b conjugate vaccine Tori Warchol [employer] Work Phone: [facility] 11-20-1994 hepatitis B vaccine, pediatric or pediatric/adolescent dosage Tori Warchol [employer] Work Phone: [facility] 11-20-1994 measles, mumps and rubella virus vaccine Tori Warchol [employer] Work Phone: [facility] 11-20-1994 trivalent poliovirus vaccine, live, oral Tori Warchol [employer] Work Phone: [facility] 09-18-1994 DTP-Haemophilus influenzae type b conjugate vaccine Tori Jasonchol [employer] Work Phone: [facility] 09-18-1994 hepatitis B vaccine, pediatric or pediatric/adolescent dosage Tori Jasonchol [employer] Work Phone: [facility] 09-18-1994 trivalent poliovirus vaccine, live, oral Tori Jasonchol [employer] Work Phone: [facility] 1993 diphtheria, tetanus toxoids and pertussis vaccine Tori Warchol [employer] Work Phone: [facility] 1993 haemophilus influenz ae type b vaccine, conjugate unspecified formulation Tori Jasonchol [employer] Work Phone: [facility] 1993 hepatitis B vaccine, pediatric or pediatric/adolescent dosage Tori Jasonchol [employer] Work Phone: [facility] 1993 trivalent poliovirus vaccine, live, oral Tori Gomezchol [employer] Work Phone: [facility] Payers Date Payer Category Payer Self-pay [id number] 2023 Medicaid [id number] 2022 Blue Cross Blue Shield [id number] 2022 Unknown BCBS BCBS xxxxxx [id number] 2022-Present [phone] [address] [place] [address] [id number] 2017 Private Health Insurance [id number] 1993 Unknown [id number] 2.16.840.1.314611.3.579.2.1 76 1993 Unknown [id number] 2.16.840.1.653307.3.579.2.1 76 1993 Unknown [id number] 2.16.840.1.670479.3.579.2.5 93 1993 Unknown [id number] 2.16.840.1.715438.3.579.2.5 93 1993 Unknown [id number] 2.16.840.1.476211.3.579.2.5 93 1993 Unknown [id number] 2.16.840.1.732070.3.579.2.5 93 1993 Unknown [id number] 2.16.840.1.058246.3.579.2.5 93 1993 Unknown [id number] 2.16.840.1.782243.3.579.2.5 93 1993 Unknown [id number] 2.16.840.1.648478.3.579.2.5 93 1993 Unknown [id number] 2.16.840.1.604900.3.579.2.5 93 1993 Unknown [id number] 2.16.840.1.601967.3.579.2.5 93 1993 Unknown [id number] 2.16.840.1.671610.3.579.2.5 93 1993 Unknown [id number] 2.16.840.1.361371.3.579.2.5 93 1993 Unknown [id number] 2.16.840.1.931825.3.579.2.5 93 1993 Unknown [id number] 2.16.840.1.251382.3.579.2.5 93 1993 Unknown [id number] 2.16.840.1.229469.3.579.2.5 93 1993 Unknown [id number] 2.16.840.1.181470.3.579.2.1 259 1993 Unknown [id number] 2.16.840.1.938553.3.579.2.1 259 1993 Unknown [id number] 2.16.840.1.942097.3.579.2.1 259 1993 Unknown [id number] 2.16.840.1.355040.3.579.2.1 259 1993 Unknown [id number] 2.16.840.1.138797.3.579.2.1 259 1993 Unknown [id number] 2.16.840.1.711044.3.579.2.1 259 1993 Unknown [id number] 2.16.840.1.237205.3.579.2.1 259 1993 Unknown [id number] 2.16.840.1.207448.3.579.2.1 259 1993 Unknown [id number] 2.16.840.1.330649.3.579.2.1 259 1993 Unknown [id number] 2.16.840.1.759363.3.579.2.1 259 1993 Unknown [id number] 2.16.840.1.903036.3.579.2.1 259 1993 Unknown [id number] 2.16.840.1.001690.3.579.2.1 259 1993 Unknown [id number] 2.16.840.1.914209.3.579.2.1 259 1993 Unknown [id number] 2.16.840.1.142489.3.579.2.1 259 1993 Unknown [id number] 2.16.840.1.642999.3.579.2.1 259 1959 Self-pay [id number] 1959 Unknown [id number] 1959 Unknown [id number] 1959 Unknown [id number] Unknown [id number] 2.16.840.1.390386.3.579.2.5 93 Unknown HCAP/HFA/FAP Active [id number] Unknown [id number] 2.16.840.1.449351.3.579.2.5 31 Social History Date Type Detail Facility Start: 08-27-2016 End: 09-25-2022 Tobacco smoking status NHIS Never smoked tobacco [facility] care Start: 09-25-2022 Tobacco use and exposure Smoke less tobacco non-user [facility] Start: 04-16-2023 End: 04-13-2024 Alcohol intake Current drinker of alcohol (finding) [facility] Start: 04-16-2023 End: 05-03-2024 Alcohol intake [facility] Start: 01-15-2023 End: 05-03-2024 Alcohol Use Disorder Identification Test - Consumption [AUDIT-C] [facility] How often to you hav e a drink containing alcohol? Monthly or less [facility] How many standard dr inks containing alcohol do you have on a typical day? Patient does not drink [facility] How often do you hav e 6 or more drinks on 1 occasion? Never [facility] Start: 1995 Sex Assigned At Female [facility] Start: 09-24-2022 Gender identity Identifies as female gender (finding) [facility] Start: 10-08-2023 [facility] Start: 05-03-2024 End: 05-25-2024 Alcoholic beverage intake Ex-drinker (finding) [facility] re Medical Equipment Procedure Code Equipment Code Equipment Origin al Text Equipment Identifier Dates 1 strip by In Vi tro route Daily Use in the morning prior to breakfast, 1 hour after each meal for a total of 4times daily. [id number] Start: 03-21-2024 End: 04-20-2024 1 each by In Vit ro route Daily Use to check FSBS four times daily [id number] Start: 03-21-2024 End: 04-20-2024 Clinical Notes 06-02-2023 to 06-06-2024 FERN Luis - 06/06/2024 4:00 PM Albania Hernandez MA - 05/30/2024 3:00 PM Amarilys Azul LPN - 05/25/2024 2:10 PM FERN Chin - 05/09/2024 3:50 PM ESTPatient Instructions Note Date & Type Note Facility 06-06-2024 History of Presen t illness Narrative Reason for Appointment: Patient ID: Gayla Johnson is a 28 y.o. female who presents for Routine Visit Patient presents today for Return OB appointment. MEDICATIONS Current Outpatient Medications Medication Instructions Alcohol Swabs (Alcohol Prep Pad) 70 % pads 1 Pad, Topical, Daily, Use four times daily to check FSBS. aspirin 81 mg, Daily Blood Glucose Monitoring Suppl (logtrust-Chauffeur Prive Glucometer) w/Device kit 1 kit, Does not [...] esophagitis 09/01/2022 Moderate persistent asthma without complication (CMS/HCC) 09/01/2022 Hypothyroidism, unspecified ([facility]) 03/02/2020 Moderate asthma ([facility]) 01/11/2024 30 weeks gestation of 04/21/2024 Third trimester 04/21/2024 Resolved Ambulatory Problems Diagnosis Date Noted Acquired hypothyroidism ([facility]) 09/01/2022 Allergic rhinitis 09/01/2022 Amenorrhea 09/01/2022 Asthma without status asthmaticus ([facility]) 09/01/2022 Attention deficit hyperactivity disorder ([facility]) 09/01/2022 Asthma affecting , antepartum ([facility]) 09/01/2022 Binge eating disorder 09/01/2022 Difficulty concentrating 09/01/2022 Irregular menstrual cycle 09/01/2022 Left sided sciatica 09/01/2022 Insomnia 09/01/2022 Migraines ([facility]) 09/01/2022 Metallic taste 09/01/2022 Mild persistent asthma without complication ([facility]) 09/01/2022 MTHFR mutation 09/01/2022 Nondependent cannabis abuse 09/01/2022 Other chronic pain 09/01/2022 Seasonal allergies 09/01/2022 Skin sensation disturbance 09/01/2022 Transitory mood disturbance 09/01/2022 Verruca plantaris 09/01/2022 Past Medical History: Diagnosis Date Acid reflux ADHD (attention deficit hyperactivity disorder) ([facility]) Asthma ([facility]) GERD (gastroesophageal reflux disease) Hypothyroid ([facility]) Lactose intolerance Marijuana use Migraine ([facility]) Mild persistent asthma, uncomplicated ([facility]) Supervision of normal Thyroid disease ([facility]) HISTORY PAST MEDICAL HISTORY SOCIAL HISTORY Past Medical History: Diagnosis Date Acid reflux ADHD (attention deficit hyperactivity disorder) ([facility] [facility]) Asthma ([facility]) Asthma affecting , antepartum ([facility]) GERD (gastroesophageal reflux disease) Hypothyroid ([facility]) Lactose intolerance Marijuana use Migraine ([facility]) Mild persistent asthma, uncomplicated ([facility]) MTHFR mutation Seasonal allergies Supervision of normal Thyroid disease ([facility]) Social History Tobacco Use [...] 2008 Plica band removal, left knee arthroscopy [place] BREAST REDUCTION 10/2018 TONSILLECTOMY 1998 REVIEW OF [...] nursing note reviewed. Exam conducted with a cane flume feeding machine operator present. Vitals: Estimated body mass index is 33.47 kg/m as calculated from the following: Height as of 05/03/24: 5' 4 . Weight as of this encounter: 195 lb. BP: 118/76 Patient's last menstrual period was 09/24/2023 (exact date). ASSESSMENT & PLAN ICD-10-CM 1. Third trimester Z34.93 POCT urinalysis dipstick manually resulted CANCELED: CULTURE, GROUP B STREP WITH SUSCEPTIBLITY CANCELED: CULTURE, GROUP B STREP WITH SUSCEPTIBLITY 2. 36 weeks gestation of Z3A.36 Return OB: Patient presents today for a routine obstetrics appointment. Patient is currently 36w4d with a Estimated Date of Delivery: 06/30/24. Patient had GBS obtained at last appointment. TSH reviewed and 1.8 previous was 1.7. FSBS reviewed and only 1 out of range after eating carbs. Return OB: Patient presents today for a routine obstetrics appointment. Patient is currently 36w5d . Patient states she is doing well but has complaints of being tired due to current . Patient has verbalizes frequent movement. labor precautions was discussed/given and patient was instructed to perform kick counts three times a day. Orders Placed This Encounter Procedures POCT urinalysis dipstick manually resulted Follow Up: Patient is to return to office in 1 week for routine OB appointment. Orders Placed This Encounter Procedures POCT urinalysis dipstick manually resulted Documented by Tash Rojas MA on behalf of: FERN Luis documented in this encounter [facility] 05-30-2024 History of Presen t illness Narrative Reason [...] 09/01/2022 Moderate persistent asthma without complication ([facility]) 09/01/2022 Hypothyroidism, unspecified ([facility]) 03/02/2020 Moderate asthma ([facility]) 01/11/2024 30 weeks gestation of 04/21/2024 Third trimester 04/21/2024 Resolved Ambulatory Problems Diagnosis Date Noted Acquired hypothyroidism ([facility]) 09/01/2022 Allergic rhinitis 09/01/2022 Amenorrhea 09/01/2022 Asthma without status asthmaticus ([facility]) 09/01/2022 Attention deficit hyperactivity disorder ([facility]) 09/01/2022 Asthma affecting , antepartum ([facility]) 09/01/2022 Binge eating disorder 09/01/2022 Difficulty concentrating 09/01/2022 Irregular menstrual cycle 09/01/2022 Left sided sciatica 09/01/2022 Insomnia 09/01/2022 Migraines ([facility]) 09/01/2022 Metallic taste 09/01/2022 Mild persistent asthma without complication ([facility]) 09/01/2022 MTHFR mutation 09/01/2022 Nondependent cannabis abuse 09/01/2022 Other chronic pain 09/01/2022 Seasonal allergies 09/01/2022 Skin sensation disturbance 09/01/2022 Transitory mood disturbance 09/01/2022 Verruca plantaris 09/01/2022 Past Medical History: Diagnosis Date Acid reflux ADHD (attention deficit hyperactivity disorder) ([facility]) Asthma ([facility]) GERD (gastroesophageal reflux disease) Hypothyroid ([facility]) Lactose intolerance Marijuana use Migraine ([facility]) Mild persistent asthma, uncomplicated ([facility]) Supervision of normal Thyroid disease ([facility]) HISTORY PAST MEDICAL HISTORY SOCIAL HISTORY Past Medical History: Diagnosis Date Acid reflux ADHD (attention deficit hyperactivity disorder) ([facility]) Asthma ([facility]) Asthma affecting , antepartum ([facility]) GERD (gastroesophageal reflux disease) Hypothyroid ([facility]) Lactose intolerance Marijuana use Migraine ([facility]) Mild persistent asthma, uncomplicated ([facility]) MTHFR mutation Seasonal allergies Supervision of normal Thyroid disease ([facility]) Social History Tobacco Use [...] 2008 Plica band removal, left knee arthroscopy [place] BREAST REDUCTION 10/2018 TONSILLECTOMY 1998 REVIEW OF [...] nursing note reviewed. Exam conducted with a cane flume feeding machine operator present. Vitals: Estimated body mass index is 33.49 kg/m as calculated from the following: Height as of 05/03/24: 5' 4 . Weight as of this encounter: 195 lb 1.9 oz. BP: 126/82 Patient's last menstrual period was 09/24/2023 (exact date). ASSESSMENT & PLAN ICD-10-CM 1. Third trimester Z34.93 POCT urinalysis dipstick manually resulted 2. 35 weeks gestation of Z3A.35 Return OB: Patient presents today for a routine obstetrics appointment. Patient is currently 35w4d . Patient states she is doing well [...] week for routine OB appointment. Documented by Kim Hernandez MA on behalf of: Herber Coto DO documented in this encounter [facility] 05-25-2024 History of Presen t illness Narrative [...] esophagitis 09/01/2022 Moderate persistent asthma without complication ([facility]) 09/01/2022 Hypothyroidism, unspecified ([facility]) 03/02/2020 Moderate asthma ([facility]) 01/11/2024 30 weeks gestation of 04/21/2024 Third trimester 04/21/2024 Resolved Ambulatory Problems Diagnosis Date Noted Acquired hypothyroidism ([facility]) 09/01/2022 Allergic rhinitis 09/01/2022 Amenorrhea 09/01/2022 Asthma without status asthmaticus ([facility]) 09/01/2022 Attention deficit hyperactivity disorder ([facility]) 09/01/2022 Asthma affecting , antepartum ([facility]) 09/01/2022 Binge eating disorder 09/01/2022 Difficulty concentrating 09/01/2022 Irregular menstrual cycle 09/01/2022 Left sided sciatica 09/01/2022 Insomnia 09/01/2022 Migraines ([facility]) 09/01/2022 Metallic taste 09/01/2022 Mild persistent asthma without complication ([facility]) 09/01/2022 MTHFR mutation 09/01/2022 Nondependent cannabis abuse 09/01/2022 Other chronic pain 09/01/2022 Seasonal allergies 09/01/2022 Skin sensation disturbance 09/01/2022 Transitory mood disturbance 09/01/2022 Verruca plantaris 09/01/2022 Past Medical History: Diagnosis Date Acid reflux ADHD (attention deficit hyperactivity disorder) ([facility]) Asthma (CMS/HCC) GERD (gastroesophageal reflux disease) Hypothyroid (CMS/HCC) Lactose intolerance Marijuana use Migraine (CMS/HCC) Mild persistent asthma, uncomplicated ([facility]) Supervision of normal Thyroid disease ([facility]) HISTORY PAST MEDICAL HISTORY SOCIAL HISTORY Past Medical History: Diagnosis Date Acid reflux ADHD (attention deficit hyperactivity disorder) ([facility]) Asthma (CMS/HCC) Asthma affecting , antepartum ([facility]) GERD (gastroesophageal reflux disease) Hypothyroid ([facility]) Lactose intolerance Marijuana use Migraine ([facility]) Mild persistent asthma, uncomplicated ([facility]) MTHFR mutation Seasonal allergies Supervision of normal Thyroid disease ([facility]) Social History Tobacco Use [...] 2008 Plica band removal, left knee arthroscopy SC BREAST REDUCTION 10/2018 TONSILLECTOMY 1998 REVIEW OF [...] nursing note reviewed. Exam conducted with a cane flume feeding machine operator present. Vitals: Estimated body mass index is [...] by Lillie Azul LPN on behalf of: Herebr Coto DO documented in this encounter [facility] 05-09-2024 History of Presen t illness Narrative [...] esophagitis 09/01/2022 Moderate persistent asthma without complication ([facility]) 09/01/2022 Hypothyroidism, unspecified ([facility]) 03/02/2020 Moderate asthma ([facility]) 01/11/2024 30 weeks gestation of 04/21/2024 Third trimester 04/21/2024 Resolved Ambulatory Problems Diagnosis Date Noted Acquired hypothyroidism ([facility]) 09/01/2022 Allergic rhinitis 09/01/2022 Amenorrhea 09/01/2022 Asthma without status asthmaticus ([facility]) 09/01/2022 Attention deficit hyperactivity disorder ([facility]) 09/01/2022 Asthma affecting , antepartum ([facility]) 09/01/2022 Binge eating disorder 09/01/2022 Difficulty concentrating 09/01/2022 Irregular menstrual cycle 09/01/2022 Left sided sciatica 09/01/2022 Insomnia 09/01/2022 Migraines ([facility]) 09/01/2022 Metallic taste 09/01/2022 Mild persistent asthma without complication ([facility]) 09/01/2022 MTHFR mutation 09/01/2022 Nondependent cannabis abuse 09/01/2022 Other chronic pain 09/01/2022 Seasonal allergies 09/01/2022 Skin sensation disturbance 09/01/2022 Transitory mood disturbance 09/01/2022 Verruca plantaris 09/01/2022 Past Medical History: Diagnosis Date Acid reflux ADHD (attention deficit hyperactivity disorder) ([facility]) Asthma ([facility]) GERD (gastroesophageal reflux disease) Hypothyroid ([facility]) Lactose intolerance Marijuana use Migraine ([facility]) Mild persistent asthma, uncomplicated ([facility]) Supervision of normal Thyroid disease ([facility]) HISTORY PAST MEDICAL HISTORY SOCIAL HISTORY Past Medical History: Diagnosis Date Acid reflux ADHD (attention deficit hyperactivity disorder) ([facility]) Asthma ([facility]) Asthma affecting , antepartum ([facility]) GERD (gastroesophageal reflux disease) Hypothyroid ([facility]) Lactose intolerance Marijuana use Migraine ([facility]) Mild persistent asthma, uncomplicated ([facility]) MTHFR mutation Seasonal allergies Supervision of normal Thyroid disease ([facility]) Social History Tobacco Use Smoking status: Never [...] 2008 Plica band removal, left knee arthroscopy [place] BREAST REDUCTION 10/2018 TONSILLECTOMY 1998 REVIEW OF [...] of: FERN Luis documented in this encounter [facility] 05-03-2024 History of Presen t illness [...] each, Rfl: 3 Blood Glucose Monitoring Suppl (D-Chauf[employer] Prive Glucometer) w/Device kit, 1 kit Daily Use [...] not improve . documented in this encounter [facility] 05-03-2024 Instructions Tori Martinez NP - 05/03/2024 4:40 PM EST PATIENT EDUCATION: ER follow-up The patient was seen today in follow-up of recent hospital ER/UC visit. All available records/labs/diagnostics were reviewed and discussed with the patient. ER/UC discharge meds were reviewed. Any changes to plan are noted above. documented in this encounter [facility] 04-21-2024 History of Presen t illness [...] to check FSBS. Blood Glucose Monitoring Suppl (D-Chauffeur Prive Glucometer) w/Device kit 1 kit, Does not [...] esophagitis 09/01/2022 Moderate persistent asthma without complication ([facility]) 09/01/2022 Hypothyroidism, unspecified ([facility]) 03/02/2020 Moderate asthma ([facility]) 01/11/2024 30 weeks gestation of 04/21/2024 Third trimester 04/21/2024 Resolved Ambulatory Problems Diagnosis Date Noted Acquired hypothyroidism ([facility]) 09/01/2022 Allergic rhinitis 09/01/2022 Amenorrhea 09/01/2022 Asthma without status asthmaticus ([facility]) 09/01/2022 Attention deficit hyperactivity disorder ([facility]) 09/01/2022 Asthma affecting , antepartum ([facility]) 09/01/2022 Binge eating disorder 09/01/2022 Difficulty concentrating 09/01/2022 Irregular menstrual cycle 09/01/2022 Left sided sciatica 09/01/2022 Insomnia 09/01/2022 Migraines ([facility]) 09/01/2022 Metallic taste 09/01/2022 Mild persistent asthma without complication ([facility]) 09/01/2022 MTHFR mutation 09/01/2022 Nondependent cannabis abuse 09/01/2022 Other chronic pain 09/01/2022 Seasonal allergies 09/01/2022 Skin sensation disturbance 09/01/2022 Transitory mood disturbance 09/01/2022 Verruca plantaris 09/01/2022 Past Medical History: Diagnosis Date Acid reflux ADHD (attention deficit hyperactivity disorder) ([facility]) Asthma ([facility]) GERD (gastroesophageal reflux disease) Hypothyroid ([facility]) Lactose intolerance Marijuana use Migraine ([facility]) Mild persistent asthma, uncomplicated ([facility]) Supervision of normal Thyroid disease ([facility]) HISTORY PAST MEDICAL HISTORY SOCIAL HISTORY Past Medical History: Diagnosis Date Acid reflux ADHD (attention deficit hyperactivity disorder) ([facility]) Asthma ([facility]) Asthma affecting , antepartum ([facility]) GERD (gastroesophageal reflux disease) Hypothyroid ([facility]) Lactose intolerance Marijuana use Migraine ([facility]) Mild persistent asthma, uncomplicated ([facility]) MTHFR mutation Seasonal allergies Supervision of normal Thyroid disease ([facility]) Social History Tobacco Use [...] 2008 Plica band removal, left knee arthroscopy SC BREAST REDUCTION 10/2018 TONSILLECTOMY 1998 REVIEW OF [...] nursing note reviewed. Exam conducted with a cane flume feeding machine operator present. Vitals: Estimated body mass index is [...] Herber Coto DO documented in this encounter [facility] 04-13-2024 History of Presen t illness [...] 09/01/2022 Moderate persistent asthma without complication ([facility]) 09/01/2022 Hypothyroidism, unspecified ([facility]) 03/02/2020 Moderate asthma ([facility]) 01/11/2024 Resolved Ambulatory Problems Diagnosis Date Noted Acquired hypothyroidism ([facility]) 09/01/2022 Allergic rhinitis 09/01/2022 Amenorrhea 09/01/2022 Asthma without status asthmaticus ([facility]) 09/01/2022 Attention deficit hyperactivity disorder ([facility]) 09/01/2022 Asthma affecting , antepartum ([facility]) 09/01/2022 Binge eating disorder 09/01/2022 Difficulty concentrating 09/01/2022 Irregular menstrual cycle 09/01/2022 Left sided sciatica 09/01/2022 Insomnia 09/01/2022 Migraines ([facility]) 09/01/2022 Metallic taste 09/01/2022 Mild persistent asthma without complication ([facility]) 09/01/2022 MTHFR mutation 09/01/2022 Nondependent cannabis abuse 09/01/2022 Other chronic pain 09/01/2022 Seasonal allergies 09/01/2022 Skin sensation disturbance 09/01/2022 Transitory mood disturbance 09/01/2022 Verruca plantaris 09/01/2022 Past Medical History: Diagnosis Date Acid reflux ADHD (attention deficit hyperactivity disorder) ([facility]) Asthma ([facility]) GERD (gastroesophageal reflux disease) Hypothyroid ([facility]) Lactose intolerance Marijuana use Migraine ([facility]) Mild persistent asthma, uncomplicated ([facility]) Supervision of normal Thyroid disease ([facility]) HISTORY PAST MEDICAL HISTORY SOCIAL HISTORY Past Medical History: Diagnosis Date Acid reflux ADHD (attention deficit hyperactivity disorder) ([facility]) Asthma ([facility]) Asthma affecting , antepartum ([facility]) GERD (gastroesophageal reflux disease) Hypothyroid ([facility]) Lactose intolerance Marijuana use Migraine ([facility]) Mild persistent asthma, uncomplicated ([facility]) MTHFR mutation Seasonal allergies Supervision of normal Thyroid disease ([facility]) Social History Tobacco Use [...] 2008 Plica band removal, left knee arthroscopy [place] BREAST REDUCTION 10/2018 TONSILLECTOMY 1998 REVIEW OF [...] of: FERN Luis documented in this encounter [facility] 04-06-2024 History of Presen t illness [...] esophagitis 09/01/2022 Moderate persistent asthma without complication ([facility]) 09/01/2022 Hypothyroidism, unspecified ([facility]) 03/02/2020 Moderate asthma ([facility]) 01/11/2024 Resolved Ambulatory Problems Diagnosis Date Noted Acquired hypothyroidism ([facility]) 09/01/2022 Allergic rhinitis 09/01/2022 Amenorrhea 09/01/2022 Asthma without status asthmaticus ([facility]) 09/01/2022 Attention deficit hyperactivity disorder ([facility]) 09/01/2022 Asthma affecting , antepartum ([facility]) 09/01/2022 Binge eating disorder 09/01/2022 Difficulty concentrating 09/01/2022 Irregular menstrual cycle 09/01/2022 Left sided sciatica 09/01/2022 Insomnia 09/01/2022 Migraines ([facility]) 09/01/2022 Metallic taste 09/01/2022 Mild persistent asthma without complication ([facility]) 09/01/2022 MTHFR mutation 09/01/2022 Nondependent cannabis abuse 09/01/2022 Other chronic pain 09/01/2022 Seasonal allergies 09/01/2022 Skin sensation disturbance 09/01/2022 Transitory mood disturbance 09/01/2022 Verruca plantaris 09/01/2022 Past Medical History: Diagnosis Date Acid reflux ADHD (attention deficit hyperactivity disorder) ([facility]) Asthma ([facility]) GERD (gastroesophageal reflux disease) Hypothyroid ([facility]) Lactose intolerance Marijuana use Migraine ([facility]) Mild persistent asthma, uncomplicated ([facility]) Supervision of normal Thyroid disease ([facility]) HISTORY PAST MEDICAL HISTORY SOCIAL HISTORY Past Medical History: Diagnosis Date Acid reflux ADHD (attention deficit hyperactivity disorder) ([facility]) Asthma ([facility]) Asthma affecting , antepartum ([facility]) GERD (gastroesophageal reflux disease) Hypothyroid ([facility]) Lactose intolerance Marijuana use Migraine ([facility]) Mild persistent asthma, uncomplicated ([facility]) MTHFR mutation Seasonal allergies Supervision of normal Thyroid disease ([facility]) Social History Tobacco Use [...] 2008 Plica band removal, left knee arthroscopy [place] BREAST REDUCTION 10/2018 TONSILLECTOMY 1998 REVIEW OF [...] of: FERN Luis documented in this encounter [facility] 03-09-2024 History of Presen t illness [...] 09/01/2022 Moderate persistent asthma without complication ([facility]) 09/01/2022 Hypothyroidism, unspecified ([facility]) 03/02/2020 Moderate asthma ([facility]) 01/11/2024 Resolved Ambulatory Problems Diagnosis Date Noted Acquired hypothyroidism ([facility]) 09/01/2022 Allergic rhinitis 09/01/2022 Amenorrhea 09/01/2022 Asthma without status asthmaticus ([facility]) 09/01/2022 Attention deficit hyperactivity disorder ([facility]) 09/01/2022 Asthma affecting , antepartum ([facility]) 09/01/2022 Binge eating disorder 09/01/2022 Difficulty concentrating 09/01/2022 Irregular menstrual cycle 09/01/2022 Left sided sciatica 09/01/2022 Insomnia 09/01/2022 Migraines ([facility]) 09/01/2022 Metallic taste 09/01/2022 Mild persistent asthma without complication ([facility]) 09/01/2022 MTHFR mutation 09/01/2022 Nondependent cannabis abuse 09/01/2022 Other chronic pain 09/01/2022 Seasonal allergies 09/01/2022 Skin sensation disturbance 09/01/2022 Transitory mood disturbance 09/01/2022 Verruca plantaris 09/01/2022 Past Medical History: Diagnosis Date Acid reflux ADHD (attention deficit hyperactivity disorder) ([facility]) Asthma ([facility]) GERD (gastroesophageal reflux disease) Hypothyroid ([facility]) Lactose intolerance Marijuana use Migraine ([facility]) Mild persistent asthma, uncomplicated ([facility]) Supervision of normal Thyroid disease ([facility]) HISTORY PAST MEDICAL HISTORY SOCIAL HISTORY Past Medical History: Diagnosis Date Acid reflux ADHD (attention deficit hyperactivity disorder) ([facility] Asthma ([facility]) Asthma affecting , antepartum ([facility]) GERD (gastroesophageal reflux disease) Hypothyroid ([facility]) Lactose intolerance Marijuana use Migraine ([facility]) Mild persistent asthma, uncomplicated ([facility]) MTHFR mutation Seasonal allergies Supervision of normal Thyroid disease ([facility]) Social History Tobacco Use [...] 2008 Plica band removal, left knee arthroscopy SC BREAST REDUCTION 10/2018 TONSILLECTOMY 1998 REVIEW OF [...] gestation of Z3A.23 4. Hypothyroidism, unspecified type ([facility]) E03.9 US OB SCAN FOR [...] of: FERN Luis documented in this encounter [facility] 03-09-2024 Miscellaneous Notes Addended by: NIALL CONSTANTINO on: 03/10/2024 09:01 AM Modules accepted: Orders documented in this encounter [facility] 03-09-2024 Note Addended by: NIALL CLEVELAND on: 03/10/2024 09:01 AM Modules accepted: Orders [facility] 03-09-2024 Note Addended by: NILAL CLEVELAND on: 03/10/2024 09:01 AM Modules accepted: Orders [facility] 02-10-2024 History of Presen t [...] 09/01/2022 Moderate persistent asthma without complication ([facility]) 09/01/2022 Hypothyroidism, unspecified ([facility]) 03/02/2020 Moderate asthma ([facility]) 01/11/2024 Resolved Ambulatory Problems Diagnosis Date Noted Acquired hypothyroidism ([facility]) 09/01/2022 Allergic rhinitis 09/01/2022 Amenorrhea 09/01/2022 Asthma without status asthmaticus ([facility]) 09/01/2022 Attention deficit hyperactivity disorder ([facility]) 09/01/2022 Asthma affecting , antepartum ([facility]) 09/01/2022 Binge eating disorder 09/01/2022 Difficulty concentrating 09/01/2022 Irregular menstrual cycle 09/01/2022 Left sided sciatica 09/01/2022 Insomnia 09/01/2022 Migraines ([facility]) 09/01/2022 Metallic taste 09/01/2022 Mild persistent asthma without complication ([facility]) 09/01/2022 MTHFR mutation 09/01/2022 Nondependent cannabis abuse 09/01/2022 Other chronic pain 09/01/2022 Seasonal allergies 09/01/2022 Skin sensation disturbance 09/01/2022 Transitory mood disturbance 09/01/2022 Verruca plantaris 09/01/2022 Past Medical History: Diagnosis Date Acid reflux ADHD (attention deficit hyperactivity disorder) ([facility]) Asthma ([facility]) GERD (gastroesophageal reflux disease) Hypothyroid ([facility]) Lactose intolerance Marijuana use Migraine ([facility]) Mild persistent asthma, uncomplicated ([facility]) Supervision of normal Thyroid disease ([facility]) HISTORY PAST MEDICAL HISTORY SOCIAL HISTORY Past Medical History: Diagnosis Date Acid reflux ADHD (attention deficit hyperactivity disorder) ([facility] Asthma ([facility]) Asthma affecting , antepartum ([facility]) GERD (gastroesophageal reflux disease) Hypothyroid ([facility]) Lactose intolerance Marijuana use Migraine ([facility]) Mild persistent asthma, uncomplicated ([facility]) MTHFR mutation Seasonal allergies Supervision of normal Thyroid disease ([facility]) Social History Tobacco Use [...] 2008 Plica band removal, left knee arthroscopy SC BREAST REDUCTION 10/2018 TONSILLECTOMY 1998 REVIEW OF [...] Herber Coto DO documented in this encounter [facility] 01-11-2024 History of Presen t illness [...] esophagitis 09/01/2022 Moderate persistent asthma without complication ([facility]) 09/01/2022 Hypothyroidism, unspecified ([facility]) 03/02/2020 Resolved Ambulatory Problems Diagnosis Date Noted Acquired hypothyroidism ([facility]) 09/01/2022 Allergic rhinitis 09/01/2022 Amenorrhea 09/01/2022 Asthma without status asthmaticus ([facility]) 09/01/2022 Attention deficit hyperactivity disorder ([facility]) 09/01/2022 Asthma affecting , antepartum ([facility]) 09/01/2022 Binge eating disorder ([facility]) 09/01/2022 Difficulty concentrating 09/01/2022 Irregular menstrual cycle 09/01/2022 Left sided sciatica 09/01/2022 Insomnia 09/01/2022 Migraines ([facility]) 09/01/2022 Metallic taste 09/01/2022 Mild persistent asthma without complication ([facility]) 09/01/2022 MTHFR mutation 09/01/2022 Nondependent cannabis abuse 09/01/2022 Other chronic pain 09/01/2022 Seasonal allergies 09/01/2022 Skin sensation disturbance 09/01/2022 Transitory mood disturbance 09/01/2022 Verruca plantaris 09/01/2022 Past Medical History: Diagnosis Date Acid reflux ADHD (attention deficit hyperactivity disorder) ([facility]) Asthma ([facility]) GERD (gastroesophageal reflux disease) Hypothyroid ([facility]) Lactose intolerance Marijuana use Migraine ([facility]) Mild persistent asthma, uncomplicated ([facility]) Supervision of normal Thyroid disease ([facility]) HISTORY PAST MEDICAL HISTORY SOCIAL HISTORY Past Medical History: Diagnosis Date Acid reflux ADHD (attention deficit hyperactivity disorder) ([facility] Asthma ([facility]) Asthma affecting , antepartum ([facility]) GERD (gastroesophageal reflux disease) Hypothyroid ([facility]) Lactose intolerance Marijuana use Migraine ([facility]) Mild persistent asthma, uncomplicated ([facility]) MTHFR mutation Seasonal allergies Supervision of normal Thyroid disease ([facility]) Social History Tobacco Use [...] 2008 Plica band removal, left knee arthroscopy SC BREAST REDUCTION 10/2018 TONSILLECTOMY 1998 REVIEW OF [...] nursing note reviewed. Exam conducted with a cane flume feeding machine operator present. Vitals: Estimated body mass index is [...] or undercooked meat, and stay away from [facility] Patient has been consulted regarding any [...] done she will reach out to office. Drill Press Hand will be notified at time of delivery [...] . Informed patient since she sees a Production Ski Repairer to schedule appointment to make sure asthma is controlled during . Patient is currently taking [employer] Chewable kids vitamins. Patient is taking 2 [...] Herber Coto DO documented in this encounter [facility] 06-04-2023 Telephone encount er Note Sent [facility] 06-04-2023 Miscellaneous Notes Formattin g of this note might be different from the original. Sent Patient requesting refill/[place] documented in this encounter [facility] 06-02-2023 Telephone encount er Note Patient requesting refill/[place] [facility] Evaluation note Diagnosis Attention deficit hyperactivity disorder (ADHD), combined type (CMS/HCC) [facility] Work Phone: Evaluation note* Diagnosis [...] in [facility]* Diagnosis Third trimester state, incidental 36 weeks gestation of documented [facility]* Diagnosis Third trimester state, incidental 35 weeks gestation of documented in this encounter [facility] Summary [...] section and content) DATE CREATED AUTHOR 11/18/2018 [facility] DATE CREATED AUTHOR AUTHOR'S ORGANIZ ATION 11/26/2018 [facility] DATE CREATED AUTHOR AUTHOR'S ORGANIZ ATION 09/09/2022 [facility] DATE CREATED AUTHOR AUTHOR'S ORGANIZ ATION 03/16/2024 [facility] DATE CREATED AUTHOR AUTHOR'S ORGANIZ ATION 06/08/2024 [facility] EPIC Reason for Visit (unrecogniz ed section and content) Reason Onset Date Comments Med Refill 06/02/2023 Reason Comments Routine Visit Care Teams (unrecognized sec tion and content) Reports Developer Relationship Specialty Start Date End Date Carlos Alberto Coleman MD [address] [place] [address] PCP - General Family Medicine 09/24/22 Tori Martinez NP [address] [place] [address] Nurse Practitioner Family Medicine 09/24/22 Sofie Larkin NP [address] [place] [address] Nurse Practitioner Pulmonary Disease 04/14/23 Team Status: Active Member Role Status Dates Carlos Alberto Coleman MD Primary Care Provider Active Team Status: Inactive Member Role Status Dates Carlos Alberto Coleman MD Primary Care Provider Active S tart: July 13, 2023 End: July 13, 2023 Sofie Larkin NP-C Attending Provider Active Start: July 13, 2023 End: July 13, 2023 Reports Developer Relationship Specialty Start Date End Date Carlos Alberto Coleman MD [address] [place] [address] PCP - General Family Medicine 09/24/22 Tori Martinez BLASTING C[employer]ER [address] [place] [address] PCP - [place] [employer] 05/28/23 Tori Martinez NP [address] [place] [address] Nurse Practitioner Family Medicine 09/24/22 Sofie Larkin NP [address] [place] [phone] Nurse Practitioner Pulmonary Disease 04/14/23 Reports Developer Relationship Specialty Start Date End Date Carlos Alberto Coleman MD [address] [place] [address] PCP - General Family Medicine 09/24/22 Tori Martinez [employer]ING [employer] [address] [place] [address] PCP - [place] [employer] 05/28/23 Tori Martinez NP [address] [place] [address] Nurse Practitioner Family Medicine 09/24/22 Sofie Larkin NP [address] [place] [address] Nurse Practitioner Pulmonary Disease 04/14/23 Reports Developer Relationship Specialty Start Date End Date Carlos Alberto Coleman MD [address] [place] [address] PCP - General Family Medicine 09/24/22 Tori Martinez [employer]ING [employer] [address] [place] [address] PCP - [place] [employer] 05/28/23 Tori Martinez NP [address] [place] [address] Nurse Practitioner Family Medicine 09/24/22 Sofie Larkin NP [address] [place] [phone] Nurse Practitioner Pulmonary Disease 04/14/23 Reports Developer Relationship Specialty Start Date End Date Carlos Alberto Coleman MD [address] [place] [address] PCP - General Family Medicine 09/24/22 Tori Martinez NP [address] [place] [address] PCP - [place] [employer] 05/28/23 Tori Martinez NP [address] [place] [address] Nurse Practitioner Family Medicine 09/24/22 Sofie Larkin NP [address] [place] [address] Nurse Practitioner Pulmonary Disease 04/14/23 Reports Developer Relationship Specialty Start Date End Date Carlos Alberto Coleman MD [address] [place] [address] PCP - General Family Medicine 09/24/22 Tori Martinez NP [address] [place] [address] PCP - [place] [employer] 05/28/23 Tori Martinez NP [address] [place] [address] Nurse Practitioner Family Medicine 09/24/22 Sofie Larkin, BLASTING C[employer] MINER [address] [place] [address] Nurse Practitioner Pulmonary Disease 04/14/23 Reports Developer Relationship Specialty Start Date End Date Carlos Alberto Coleman MD [address] [place] [address] PCP - General Family Medicine 09/24/22 Tori Martinez NP [address] [place] [address] PCP - [place] [employer] 05/28/23 Tori Martinez NP [address] [place] [address] Nurse Practitioner Family Medicine 09/24/22 Sofie Larkin, BLASTING C[employer] MINER [address] [place] [phone] Nurse Practitioner Pulmonary Disease 04/14/23 Reports Developer Relationship Specialty Start Date End Date Carlos Alberto Coleman MD [address] [place] [address] PCP - General Family Medicine 09/24/22 Tori Martinez BLASTING [employer] [address] [place] [address] PCP - [place] [employer] 05/28/23 Tori Martinez, [employer]ING [employer] [address] [place] [address] Nurse Practitioner Family Medicine 09/24/22 Sofie Larkin NP [address] [place] [phone] Nurse Practitioner Pulmonary Disease 04/14/23 Reports Developer Relationship Specialty Start Date End Date Carlos Alberto Coleman MD [address] [place] [address] PCP - General Family Medicine 09/24/22 Tori Martinez NP [address] [place] [address] PCP - [place] [employer] 05/28/23 Tori Martinez NP [address] [place] [address] Nurse Practitioner Family Medicine 09/24/22 Sofie Larkin, BLASTING C[employer] MINER [address] [place] [address] Nurse Practitioner Pulmonary Disease 04/14/23 Reports Developer Relationship Specialty Start Date End Date Carlos Alberto Coleman MD [address] [place] [address] PCP - General Family Medicine 09/24/22 Tori Martinez NP [address] [place] [address] PCP - [place] [employer] 05/28/23 Tori Martinez NP [address] [place] [address] Nurse Practitioner Family Medicine 09/24/22 Sofie Larkin NP [address] [place] [phone] Nurse Practitioner Pulmonary Disease 04/14/23 Reports Developer Relationship Specialty Start Date End Date Carlos Alberto Coleman MD [address] [place] [address] PCP - General Family Medicine 09/24/22 Tori Martinez NP [address] [place] [address] PCP - [place] [employer] 05/28/23 Tori Martinez NP [address] [place] [address] Nurse Practitioner Family Medicine 09/24/22 Sofie Larkin NP [address] [place] [address] Nurse Practitioner Pulmonary Disease 04/14/23 Reports Developer Relationship Specialty Start Date End Date Carlos Alberto Coleman MD [address] [place] [address] PCP - General Family Medicine 09/24/22 Tori Martinez NP [address] [place] [address] PCP - [place] [employer] 05/28/23 Tori Martinez NP [address] [place] [address] Nurse Practitioner Family Medicine 09/24/22 Sofie Larkin NP [address] [place] [phone] Nurse Practitioner Pulmonary Disease 04/14/23 Reports Developer Relationship Specialty Start Date End Date Carlos Alberto Coleman MD [address] [place] [address] PCP - General Family Medicine 09/24/22 Tori Martinez NP [address] [place] [phone] PCP - [place] [employer] 05/28/23 Tori Martinez NP [address] [place] [phone] Nurse Practitioner Family Medicine 09/24/22 Sofie Larkin NP [address] [place] [address] Nurse Practitioner Pulmonary Disease 04/14/23 Reports Developer Relationship Specialty Start Date End Date Carlos Alberto Coleman MD [address] [place] [id number] PCP - General Family Medicine 09/24/22 Tori Martinez NP [address] [place] [address] PCP - [place] [employer] 05/28/23 Tori Martinez NP [address] [place] [address] Nurse Practitioner Family Medicine 09/24/22 Sofie Larkin NP [address] [place] [address] Nurse Practitioner Pulmonary Disease 04/14/23 Reports Developer Relationship Specialty Start Date End Date Carlos Alberto Coleman MD [address] [place] [id number] PCP - General Family Medicine 09/24/22 Tori Martinez NP [address] [place] [address] PCP - [place] [employer] 05/28/23 Tori Martinez, BLASTING CLAY MINER [address] [place] [phone] Nurse Practitioner Family Medicine 09/24/22 Sofie Larkin NP [address] [place] [address] Nurse Practitioner Pulmonary Disease 04/14/23 Reports Developer Relationship Specialty Start Date End Date Carlos Alberto Coleman MD [address] [place] [id number] PCP - General Family Medicine 09/24/22 Tori Martinez BLASTING C[employer]ER [address] [place] [address] PCP - [place] [employer] 05/28/23 Tori Martinez NP [address] [place] [address] Nurse Practitioner Family Medicine 09/24/22 Sofie Larkin NP [address] [place] [phone] Nurse Practitioner Pulmonary Disease 04/14/23 Reports Developer Relationship Specialty Start Date End Date Carlos Alberto Coleman MD [address] [place] [address] PCP - General Family Medicine 09/24/22 Tori Martinez NP [address] [place] [address] PCP - [facility] 05/28/23 Tori Martinez, HERRERA [address] [place] [address] Nurse Practitioner Family Medicine 09/24/22 Sofie Larkin NP [address] [place] [address] Nurse Practitioner Pulmonary Disease 04/14/23 Reports Developer Relationship Specialty Start Date End Date Carlos Alberto Coleman MD [address] [place] [address] PCP - General Family Medicine 09/24/22 Tori Martinez BLASTING [employer] [address] [place] [address] Nurse Practitioner Family Medicine 09/24/22 Sofie Larkin NP [address] [place] [address] Nurse Practitioner Pulmonary Disease 04/14/23 Reports Developer Relationship Specialty Start Date End Date Carlos Alberto Coleman MD [address] [place] [address] PCP - General Family Medicine 09/24/22 Tori Martinez NP [address] [place] [address] Nurse Practitioner Family Medicine 09/24/22 Sofie Larkin NP [address] [place] [address] Nurse Practitioner Pulmonary Disease 04/14/23 Reports Developer Relationship Specialty Start Date End Date Carlos Alberto Coleman MD [address] [place] [address] PCP - General Family Medicine 09/24/22 Tori Martinez NP [address] [place] [address] Nurse Practitioner Family Medicine 09/24/22 Sofie Larkin NP [address] [place] [address] Nurse Practitioner Pulmonary Disease 04/14/23 Reports Developer Relationship Specialty Start Date End Date Carlos Alberto Coleman MD [address] [place] [address] PCP - General Family Medicine 09/24/22 Tori Martinez NP [address] [place] [address] Nurse Practitioner Family Medicine 09/24/22 Sofie Larkin NP [address] [place] [address] Nurse Practitioner Pulmonary Disease 04/14/23 Goals (unrecognized [...] BE BASED ON THE PRIMARY CLINICAL RECORDS. [facility]. provides no warranty or guarantee of the accuracy or completeness of information in this document.
--- NOTE | 2024-06-13 19:02 | US_ITS ---
The [address] [address] Patient Name: JULIÁN JIMENEZ MRN: [id number]:[id number] date: 1995 Sex: F Assigned Patient Location: [facility] Current Patient Location: Accession/Order Number: [id number] Exam Date: 06/13/2024 19:06 Report Date: 06/13/2024 23:05 At the request of: LACY AVILES Procedure: US OB BPP w non-stress LIMITED OB ULTRASOUND HISTORY: 28-year-old Ab0 female who is with gestational diabetes. COMPARISON: None. TECHNIQUE: Limited ultrasound is performed of the heart rate and the amniotic fluid index. Although this exam is ordered as a BPP, there are no images submitted of the BPP for review by the radiologist which limits evaluation. FINDINGS: : Position: Not well visualized Heart Rate: 125 bpm. BPP: Please note that evaluation of the BPP is limited as there are no cine images submitted for review. Amniotic Fluid Index: Q1: 8.0 cm. Q2: 2.6 cm Q3: 5.9 cm. Q4: 0.0 cm. Total EDER equals 16.6 cm. US/US OB BPP w non-stress IMPRESSION: 1. Viable IUP. 2. Total EDER: 16.6 cm. 3. Cervix not visualized due to shadowing Electronically authenticated by: MIGUEL SANDOVAL Date: 06/13/2024 23:05
[2024-06-13 19:35] VITALS: BP 118/81; PULSE 74; TEMP 36.6
[2024-06-13 19:36] VITALS: BP 118/81; PULSE 74
--- NOTE | 2024-06-13 20:00 | PC.NURSE ---
Pt has some spotting-reports she had a cervical exam today in the office
== END 2024-06-13 20:16 | disposition home or self-care (01) ==
LOC: US 01:11 → FBC 19:02
PROVIDERS: PCP Family Medicine; Visit Provider Obstetrics & Gynecology
DX: O24.419 Gestational diabetes mellitus in pregnancy, unspecified control (principal)
CPT/HCPCS: 76818

== ENCOUNTER 2024-06-14 12:32 | Inpatient (IN) | payer BC, MEDICAID, SELFPAY ==
[2024-06-14] VITALS (38 sets, daily range): BP systolic 106–141; BP diastolic 57–89; PULSE 65–93; TEMP 36.4–36.7
[2024-06-14 13:54] LABS: Bilirubin Urine NEGATIVE (NEGATIVE); Blood Urine SMALL (NEGATIVE); Clarity Urine CLEAR (CLEAR); Color Urine YELLOW (YELLOW); Glucose Urine UA NEGATIVE (NEGATIVE); Ketones Urine TRACE mg/dL (NEGATIVE); Leukocyte Esterase Urine NEGATIVE (NEGATIVE); Nitrite Urine NEGATIVE (NEGATIVE); Protein Urine TRACE mg/dL (NEG/TRACE); Specific Gravity Urine 1.025 (1.005-1.025)
[2024-06-14 13:55] LABS: Urine Microscopic Indicated YES
[2024-06-14 14:10] LABS: Bacteria Urine TRACE #/HPF (NONE SEEN); WBC Urine NONE SEEN #/HPF (NONE SEEN)
[2024-06-14 14:11] LABS: Cast Seen? NONE SEEN #/LPF (NONE SEEN); Crystals Seen? None Seen #/HPF (None Seen); Mucus Urine TRACE (NONE SEEN); Squamous Epithelial Cell Urine MANY #/LPF (NONE/RARE); Urine Culture Indicated NO
[2024-06-14] MEDS: OXYTOCIN/0.9 % SODIUM CHLORIDE 10 UNITS/500 ML PLAST..BAG 6 UNIT IV (14:56)
[2024-06-14] MEDS: 0.9 % SODIUM CHLORIDE 1,000 ML 125 ML IV ×3 (15:00→21:50)
[2024-06-14 15:02] LABS: Hematocrit 34.4 % (36.0-48.0); Hemoglobin 11.1 g/dL (12.0-16.0); Mean Corpuscular HGB Conc 32.3 g/dL (29.9-35.2); Mean Corpuscular Hemoglobin 28.3 pg (26.7-34.0); Mean Corpuscular Volume 87.8 fL (81.0-99.0); Mean Platelet Volume 11.1 fL (9.5-13.5); Platelet Count 241 10^3/uL (150-450); Red Blood Count 3.92 10^6/uL (4.20-5.40); Red Cell Distribution Width 12.7 % (11.0-15.0); White Blood Count 10.6 10^3/uL (4.0-11.0)
[2024-06-14 15:12] LABS: Amphetamine Screen Urine NEGATIVE (NEGATIVE); Barbiturates Screen Urine NEGATIVE (NEGATIVE); Benzodiazepines Screen Urine NEGATIVE (NEGATIVE); Buprenorphine Screen Urine NEGATIVE (NEGATIVE); Cannabinoid Screen Urine NEGATIVE (NEGATIVE); Cocaine Screen Urine NEGATIVE (NEGATIVE); Methadone Screen Urine NEGATIVE (NEGATIVE); Methamphetamines Screen Urine NEGATIVE (NEGATIVE); Opiate Screen Urine NEGATIVE (NEGATIVE); Oxycodone Screen Urine NEGATIVE (NEGATIVE); Phencyclidine Screen Urine NEGATIVE (NEGATIVE); Tricyclic Antidepressant Urine NEGATIVE (NEGATIVE)
[2024-06-14] MEDS: NALBUPHINE HCL 10 MG/ML AMPULE IV (18:17)
[2024-06-14] MEDS: ROPIVACAINE HCL/PF 400 MG/200 ML PREMIX 6 MG EPIDURAL (18:49)
[2024-06-14] MEDS: OXYTOCIN/0.9 % SODIUM CHLORIDE 20 UNITS/1,000 ML PLAST..BAG 125 UNIT IV (22:10)
--- NOTE | 2024-06-14 22:12 | PM.OBPRCVD ---
Procedure Intrapartal events: None Induction method: per pitocin protocol Delivery augmentation: rupture of membranes and pitocin Delivery monitor: external FHT and external uterine Route of delivery: Episiotomy Description: none L&D Laceration Description: none Estimated blood loss (mL): 300 Anesthesia type: None Disposition: floor Delivery date: 06/14/24 Gender: female presentation: vertex Placental delivery description: Spontaneous cord description: 3 Vessels and Nuchal Cord
[2024-06-15 00:07] VITALS: BP 113/63; PULSE 79
[2024-06-15 06:31] LABS: Basophils Percent Auto 0.1 % (0.2-2.0); Eosinophils Percent Auto 0.2 % (0.9-7.0); Hematocrit 30.5 % (36.0-48.0); Hemoglobin 9.9 g/dL (12.0-16.0); Immature Granulocytes Abs Auto 0.05 10^3/uL (0.00-0.03); Immature Granulocytes Pct Auto 0.4 % (0.0-0.5); Lymphocytes Absolute Auto 1.6 10^3/uL (1.2-3.8); Lymphocytes Percent Auto 11.4 % (20.5-60.0); Mean Corpuscular HGB Conc 32.5 g/dL (29.9-35.2); Mean Corpuscular Hemoglobin 28.6 pg (26.7-34.0); Mean Corpuscular Volume 88.2 fL (81.0-99.0); Mean Platelet Volume 10.5 fL (9.5-13.5); Monocytes Absolute Auto 1.1 10^3/uL (0.3-0.8); Monocytes Percent Auto 8.2 % (1.7-12.0); Neutrophils Percent Auto 79.7 % (43.0-75.0); Platelet Count 178 10^3/uL (150-450); Red Blood Count 3.46 10^6/uL (4.20-5.40); Red Cell Distribution Width 12.6 % (11.0-15.0); White Blood Count 13.8 10^3/uL (4.0-11.0)
[2024-06-15] MEDS: LEVOTHYROXINE SODIUM 88 MCG TABLET PO (07:29)
[2024-06-15] MEDS: DOCUSATE SODIUM 100 MG CAPSULE PO ×2 (08:56→21:30)
[2024-06-15 08:59] VITALS: BP 155/82; PULSE 71; TEMP 36.5
--- NOTE | 2024-06-15 09:34 | P.OBPN_ITS ---
OB - PN: Subj Subjective Patient comments: no complaints and pain well controlled [place] status: doing well Exam Constitutional Vital Signs, click to edit/add: Last Vital Signs Temp 98.1 F 06/14/24 20:00 Pulse 71 06/15/24 08:59 Resp 16 06/14/24 18:09 BP 155/82 H 06/15/24 08:59 O2 Del Method Room Air 06/15/24 00:00 Documenting provider has reviewed patient's vital signs: yes Common normals: no apparent distress GI Common normals: Normal to inspection, nondistended, normoactive bowel sounds present Extremity Common normals: no clubbing, cyanosis or edema and no calf tenderness Results Labs Labs: Short CBC 06/14/24 06/15/24 Range/Units 14:45 06:25 WBC 10.6 13.8 H (4.0-11.0) 10^3/uL Hgb 11.1 L 9.9 L (12.0-16.0) g/dL Hct 34.4 L 30.5 L (36.0-48.0) % Plt Count 241 178 (150-450) 10^3/uL Urine 06/14/24 Range/Units 12:50 Urine Color Yellow (YELLOW) Urine Clarity Clear (CLEAR) Urine pH 6.0 (5.0-9.0) Ur Specific [place] 1.025 (1.005-1.025) Urine Protein Trace (NEG/TRACE) mg/dL Urine Glucose (UA) Negative (NEGATIVE) mg/dL Urinary Catheter Management Urinary Catheter Management Urethral: Cath placed during this visit: yes, but has since been removed by the nurse Insertion date: 06/14/24 Insertion time: 19:45 Removal date: 06/14/24 Removal time: 22:00 OB - PN: A/P Plan - Vaginal Delivery day: 1 Plan: routine care Time Spent with Patient Time: Total time spent is greater than 50% in coordination of care (as documented) at patient's floor/unit and/or counseling patient: Total time spent with greater than 50% in coordination of care (as documented) at patient's floor/unit and/or counseling patient: less than 15 minutes
[2024-06-15 11:10] VITALS: BP 133/78; PULSE 95; TEMP 36.6
[2024-06-15] MEDS: MONTELUKAST SODIUM 10 MG TABLET PO (11:19)
[2024-06-15] MEDS: MAGNESIUM OXIDE 400 MG TABLET PO (11:19)
[2024-06-15] MEDS: OMEPRAZOLE 40 MG CAPSULE.DR PO (11:20)
[2024-06-15] MEDS: IBUPROFEN 600 MG TABLET PO ×2 (11:20→18:52)
[2024-06-15] MEDS: FOLIC ACID 1 MG TABLET PO (11:22)
[2024-06-15] MEDS: CITALOPRAM HYDROBROMIDE 20 MG TABLET 10 MG PO (11:22)
[2024-06-15 17:06] VITALS: BP 148/91; PULSE 93
[2024-06-15 17:10] VITALS: BP 140/77; PULSE 82
[2024-06-15 17:20] VITALS: TEMP 37.4
[2024-06-16] MEDS: IBUPROFEN 600 MG TABLET PO ×2 (01:30→08:52)
[2024-06-16 01:34] VITALS: TEMP 36
[2024-06-16 01:35] VITALS: BP 129/61; PULSE 65
[2024-06-16] MEDS: OMEPRAZOLE 40 MG CAPSULE.DR PO (06:48)
[2024-06-16] MEDS: LEVOTHYROXINE SODIUM 88 MCG TABLET PO (06:48)
[2024-06-16 08:45] VITALS: TEMP 37.2
[2024-06-16 08:50] VITALS: BP 138/82; PULSE 65
[2024-06-16] MEDS: CITALOPRAM HYDROBROMIDE 20 MG TABLET 10 MG PO (08:51)
[2024-06-16] MEDS: DOCUSATE SODIUM 100 MG CAPSULE PO (08:51)
[2024-06-16] MEDS: MONTELUKAST SODIUM 10 MG TABLET PO (08:51)
[2024-06-16] MEDS: MAGNESIUM OXIDE 400 MG TABLET PO (08:51)
[2024-06-16] MEDS: FOLIC ACID 1 MG TABLET PO (08:52)
[2024-06-16] MEDS: ASPIRIN 81 MG TABLET.DR PO (08:53)
--- NOTE | 2024-06-16 09:53 | PM.OBPN ---
OB - PN: Subj Subjective Patient comments: no complaints, pain well controlled and tolerating diet Exam Constitutional Vital Signs, click to edit/add: Last Vital Signs Temp 96.8 F L 06/16/24 01:34 Pulse 65 06/16/24 08:50 Resp 16 06/16/24 01:30 BP 138/82 06/16/24 08:50 O2 Del Method Room Air 06/15/24 08:59 Common normals: no apparent distress and oriented x3 GI Common normals: soft to palpation and non-tender Inspection: normal to inspection Other: Fundus - firm below umbilicus Other: Perineum - minimal bleeding Extremity Common normals: no calf tenderness Neuro Common normals: oriented x3 Psych Common normals: mental status grossly normal Urinary Catheter Management Urinary Catheter Management Urethral: Cath placed during this visit: yes, but has since been removed by the nurse Insertion date: 06/14/24 Insertion time: 19:45 Removal date: 06/14/24 Removal time: 22:00 OB - PN: A/P Assessment and Plan (1) Term : Assessment and Plan: Doing well Home (2) Mastitis associated with childbirth, delivered: Assessment and Plan: prior history patient states she can take amoxicillan Prescription written Plan - Vaginal Delivery day: 2 Plan: routine care and discharge home Time Spent with Patient Time: Total time spent is greater than 50% in coordination of care (as documented) at patient's floor/unit and/or counseling patient: Total time spent with greater than 50% in coordination of care (as documented) at patient's floor/unit and/or counseling patient: less than 15 minutes
--- NOTE | 2024-06-16 09:56 | PM.OBDS ---
DS: Providers Provider Date of admission: 06/14/24 13:45 Primary care physician: MO COHEN Admitting clinician: Herber Coto Attending physician on admission: Herber Coto Consults: 06/14/24 Consult to Anesthesiology Routine Consulting Provider: Herber Coto Reason for consultation: epidural Attending physician on discharge: Herber Coto Discharging clinician: Ruth iL Anticipated date of discharge: 06/16/24 DS: Diagnosis Discharge Diagnosis (1) Term : Assessment and plan: Home (2) Mastitis associated with childbirth, delivered: Assessment and plan: amoxicillan 500mg BID written prescription OB - DS: Summary Complications complications: none Infant Delivery method: spontaneous vaginal delivery Gender: female Status at Discharge Functional status at discharge: independent ambulation Overall status at discharge: patient is progressing back to baseline Time Spent with Patient Time attestation: Total time spent providing and/or coordinating discharge services: Time spent: less than 30 minutes Exam Constitutional Vital Signs, click to edit/add: Last Vital Signs Temp 98.9 F 06/16/24 08:45 Pulse 65 06/16/24 08:50 Resp 16 06/16/24 08:45 BP 138/82 06/16/24 08:50 O2 Del Method Room Air 06/16/24 09:51 Discharge Plan Discharge Disposition: Home, Self-Care Discharge Medications: Continued citalopram 10 mg tablet 10 mg PO DAILY famotidine 20 mg tablet 20 mg PO DAILY PRN (Reason: reflux) folic acid 1 mg tablet 1 mg PO DAILY lansoprazole 30 mg capsule,delayed release(DR/EC) 30 mg PO DAILY Rx Instructions: AM levalbuterol HCl 1.25 mg/3 mL solution for nebulization 1.25 mg INHALATION Q6H PRN (Reason: shortness of breath or wheezing) levothyroxine 88 mcg tablet 88 mcg PO DAILY magnesium oxide 400 mg (241.3 mg magnesium) tablet 400 mg PO DAILY montelukast 10 mg tablet 10 mg PO DAILY ondansetron HCl 4 mg tablet 4 mg PO Q8H PRN (Reason: nausea and vomiting) Pro Fe 180 mg iron capsule 180 mg PO DAILY fexofenadine [Tasha Allergy] 180 mg tablet 180 mg PO DAILY Discontinued aspirin 81 mg capsule 81 mg PO DAILY Print Language: Nigerian Forms: Portal Instructions Follow Up Appointments: to call office for follow up
== END 2024-06-16 13:11 | disposition home or self-care (01) | DRG 807 ==
PROVIDERS: Admitting Provider Obstetrics & Gynecology; PCP Family Medicine; Visit Provider Obstetrics & Gynecology
DX: O24.429 Gestational diabetes mellitus in childbirth, unspecified control (principal); Z37.0 Single live birth; O99.284 Endocrine, nutritional and metabolic diseases complicating childbirth; E03.9 Hypothyroidism, unspecified; O69.81X0 Labor and delivery complicated by cord around neck, without compression, not applicable or unspecified; Z3A.38 38 weeks gestation of pregnancy; Z87.59 Personal history of other complications of pregnancy, childbirth and the puerperium; O99.52 Diseases of the respiratory system complicating childbirth; J45.30 Mild persistent asthma, uncomplicated; Z91.198 Patient's noncompliance with other medical treatment and regimen for other reason
CPT/HCPCS: 36415; 51702; 59050; 59410; 80307; 81001; 85025; 85027; 86850; 86900; 86901; J2300; J2795

== ENCOUNTER 2024-06-22 08:03 | Outpatient (OUT) | payer BC, MEDICAID, SELFPAY ==
--- NOTE | 2024-06-22 15:56 | PC.NURSE ---
Cecelia, S.O. and 8 day old [place] arrive for support. Cecelia with known history of breast reduction, Hypothyroid discouraged due to low supply. States pumped after 2 feeds and obtained 15ml combined. Does not hear infant swallow very often. sucks for 5 minutes and becomes sleepy, needs stimulation to continue. LC uses stethoscope to listen for swallows, only 3 noted in 1 minute of sucking. Much discussion regarding at 11.3 % down at 8 days, low supply, expectations for milk output and supplementation. FOB encourages supplementation, Breast milk is ideal, but a fed, healthy baby is more important Cecelia has friend with extra supply last time, and no close friends currently have a baby to get donor milk. Talks about obtaining milk from [place] groups that offer donor milk. LC and parents review risks of informal milk sharing. FOB states not interested in getting milk from people we don not know . Parents then discuss use of formula for supplement. PEDS gave them Alimentum as strong family history of milk allergy in both parents and 1 sibling. Encouraged to continue with formula that PEDS suggested. Cecelia remains uncommitted with supplementation. Parents instricted to feed child every 2-2.5 hours during the day and obtain 3 hour stretches at night. Verbalized understanding of need to feed baby more frequently and with volumes of 2-3 oz for growth. Leaves ambulatory will follow up with PEDS 06/27/2024 for weight check. Declinedfurther support at this time.
== END 2024-06-22 16:10 | disposition home or self-care (01) ==
LOC: FBCO 08:04
PROVIDERS: PCP Family Medicine; Visit Provider Obstetrics & Gynecology
DX: Z39.2 Encounter for routine postpartum follow-up (principal)